=== PATIENT | male | born 1950 | race Caucasian/White ===

== ENCOUNTER 2021-12-07 07:55 | Outpatient (CLI) | payer MEDICARE, SELFPAY ==
--- NOTE | 2021-12-07 08:15 | CRLHL7_ITS ---
For Patients: As a result of the Century Cures Act, medical imaging exams and procedure reports are released immediately into your electronic medical record. You may view this report before your referring provider. If you have questions, please contact your health care provider. Indication: Left hip pain Comparison: None. Procedure : Informed consent was obtained. The site was marked. Time-out was performed. The skin of the left hip was cleansed with ChloraPrep. A sterile drape was placed. 8 cc of 1 percent lidocaine was administered for superficial anesthesia. Subsequently a 22 gauge spinal needle was introduced into the left hip joint under intermittent fluoroscopic guidance. Injection of 7 cc 1 percent lidocaine and 2 cc of 40 milligram/cc Depo-Medrol into the left hip joint then performed. The needle was removed and hemostasis achieved with direct pressure. A dressing was placed. The patient tolerated the procedure well without immediate complication. Total fluoroscopy time 14 seconds. Impression: Successful fluoroscopically guided left hip injection with 80 milligrams Depo-Medrol. Dictated by Charles Earl MD @ 12/07/2021 9:21:42 AM (Electronically Signed)
== END 2021-12-07 07:56 | disposition home or self-care (01) ==
LOC: RAD 07:57
PROVIDERS: PCP Family Medicine; Visit Provider Orthopaedic Surgery Sports Medicine
DX: M76.892 Other specified enthesopathies of left lower limb, excluding foot (principal); M70.62 Trochanteric bursitis, left hip; M16.12 Unilateral primary osteoarthritis, left hip; M25.552 Pain in left hip
CPT/HCPCS: 20610; 77002; J1030; Q9966

== ENCOUNTER 2022-01-16 11:39 | Outpatient (CLI) | payer MEDICARE, SELFPAY ==
[2022-01-16 22:02] LABS: Albumin* 4.6 g/dL (3.3-5.0); Chloride* 103 mmol/L (96-114); Sodium* 141 mmol/L (135-149)
[2022-01-16 22:04] LABS: Cholesterol* 160 mg/dL (90-199)
[2022-01-16 22:05] LABS: Alanine Aminotransferase* 34 U/L (4-50); Alkaline Phosphatase* 133 U/L (40-150); Aspartate Amino Transferase* 35 U/L (12-35); Bilirubin Total* 0.8 mg/dL (0.1-1.5); Blood Urea Nitrogen* 17 mg/dL (7-30); Calcium* 9.6 mg/dL (8.4-10.6); Carbon Dioxide* 29 mmol/L (20-32); Creatinine* 0.9 mg/dL (0.5-1.5); Estimated Glomerular Filt Rate 91 ml/min; Glucose* 110 mg/dL (60-115); Total Protein* 7.2 g/dL (6.0-8.3); Triglycerides* 140 mg/dL (40-149)
[2022-01-16 22:06] LABS: HDL Cholesterol* 58 mg/dL (>=40); LDL Cholesterol Calculated 74 mg/dL (<100); Magnesium* 2.1 mg/dL (1.5-2.6)
[2022-01-16 22:18] LABS: Creatinine Urine 203.2 mg/dL
[2022-01-16 22:25] LABS: Microalbumin Creatinine Ratio 0 mg/g (0-30); Microalbumin Urine 2 mg/dL
[2022-01-16 22:48] LABS: Vitamin B12* 584 pg/mL (243-894)
== END 2022-01-16 11:40 | disposition home or self-care (01) ==
PROVIDERS: PCP Family Medicine; Visit Provider Family Medicine
DX: E03.8 Other specified hypothyroidism (principal); E11.9 Type 2 diabetes mellitus without complications; E78.5 Hyperlipidemia, unspecified; G47.30 Sleep apnea, unspecified; I10 Essential (primary) hypertension; R53.83 Other fatigue
CPT/HCPCS: 80053; 80061; 82043; 82570; 82607; 83735; 84443

== ENCOUNTER 2022-01-18 08:00 | Outpatient (RCR) | payer MEDICARE, SELFPAY ==
--- NOTE | 2021-12-26 09:32 | PT.OPE ---
PT [place] Outpatient Eval PT [facility] Outpatient Eval Start: 12/26/21 07:59 Freq: Status: Active Protocol: Document 12/26/21 08:00 LSL (Rec: 12/26/21 08:39 LSL [id number]) E-signed By Swapna Burgess, PT Physical Therapy Outpatient Evaluation Insurance Information Insurance Name Medicare B,Blue Cross/Blue Shield Insurance Information/Comments PPO replacement plan Medical Diagnosis L hip OA, L hip abductor tendinitis, L trochanteric bursitis Treating Diagnosis pain, weakness, impaired balance, impaired gait, impaired ROM Referring MD Flavio Subjective Subjective Pt. has had B hip pain for 4-5 years L>R. He has had multiple injections over the years and none of them have helped. Pain is in the lateral hip. Pain is worse if I walk a lot. It feels like something is grinding. If I sit for a long time and then get up I limp and it really hurts. It was really hard last year and I had to walk with a cane. A PT last year in [place] told me I would be walking with a cane for the rest of my life and it made it hurt more. PT consisted of deep massage, clamshells and foam roller. For stairs I am okay as long as I have a railing. He has stairs at home . My goal is be able to walk 30-45 minutes without any pain . 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 Precautions Treatment Precautions/Contraindications L HS injury 15 y/a - slipped and fell backwards, doctor said if he was a football player he'd be out for a couple months but didn't offer him any help., diverticulitis with partial colectomy and resultant abdominal hernia, partial prostate removal non cancerous Weight Bearing Status Full Weight Bearing Therapy Limitations/Systems Review Other Medical Problem Objective Range of Motion AROM - lumbar grossly 25-50% and lost balance PROM - B hips limited IR L painful, L hip ER and flexion much less than R and produce pain on L Strength B knees 5/5 Hips - R flexion 5/5, L 5-/5 with pain, L TFL 3/5 with pain , R 4+/5, L hip abd 3/5 with pain, R abduction 5/5 , L hip extension 4/5, R 5/5 Trunk - upper abdominals 2-/5, lower abdominals 1/5, Palpation L TFL and trochanteric bursal region very tender and L glut med mildly tender Balance & Gait B SLB poor - less than 1 second with assistance but worse on R Posture genu valgus B Assessment Assessment/Impression Pt. is a 71 y/o male who presents with L hip OA, trochanteric bursitis and tendinopathy. It is likely that his primary issue are the weakness and tightness in his hip musculature contributing to irritation of the bursa and hip joint given that none of his injections have helped in the past. He has significantly limited lumbar ROM, abdominal strength and L hip strength all of which are contributory to his pain and balance issues . Oddly enough he has worse SL balance on his L compared to R leg and his R leg is likely compensating for his L hip pain. Treatment will include therex for strength and ROM, NM re-ed for balance and core activation, manual therapy and modalities prn. Primary Functional Limitations walking, stairs, sleeping Plan of Care Rehabilitation Potential Good Physical Therapy Goals SHORT TERM GOALS: (2-3 weeks) 1. Pt. consistent with HEP. 2. Pt. able to activate TA and stabilize against extremity movement. 3. Increased hip strength by 1 /2 grade. BOILERHOUSE MECHANIC GOALS: (4+ weeks) 1. Pt. to report decreased pain to 3/10 with 30+ minute walk. 2. Pt. able to ascend and descend stairs with improved ease and less pain. 3. Increased SLB to 5 seconds or greater. 4. Increased strength of L hip musculature to 4+/5 or greater to assist in mobility. Coordination/Communication With Referral Source Treatment Plan/Direct Interventions Electrical Stimulation,Heat, Ice/Cold/Vasopneumatic,Joint Mobilization,Manual Therapy, Neuromuscular Re-ed,Self-Care/ Home Management,Therapeutic Exercises Frequency/Duration 2x/week 4weeks Patient Will Be Discharged From Therapy Completion of LTG(s),Skills Plateau,Independent w/HEP, Independently Progressing Evaluation Billing Untimed Code Treatment Minutes 35 PT Eval No Charge No Complexity Moderate Certification Information Initial Certification Date 12/26/21 Ending Certification Date 03/14/22 Provider Signature Shows Agreement With POC & Medical Necessity Physician Comment/Change Comment or Changes Physician NPI Number #
== END 2022-02-15 14:39 | disposition home or self-care (01) ==
PROVIDERS: PCP Family Medicine; Visit Provider Orthopaedic Surgery Sports Medicine
DX: M76.892 Other specified enthesopathies of left lower limb, excluding foot (principal); M25.552 Pain in left hip; M70.62 Trochanteric bursitis, left hip; Z51.89 Encounter for other specified aftercare
CPT/HCPCS: 97032; 97110; 97140; 97162

== ENCOUNTER 2022-01-20 07:22 | Emergency (ER) | payer MEDICARE, SELFPAY ==
[2022-01-20 07:32] VITALS: BP 147/78; PULSE 67; RESP 20; TEMP 36.5; O2SAT 96; BMI 36.5
--- NOTE | 2022-01-20 08:01 | PC.NURSE ---
Dr Zeng with patient
--- NOTE | 2022-01-20 08:10 | ED.GENADULT ---
HPI - General Adult General Time Seen by Provider: 08:10 Date Seen: 01/20/22 Chief complaint: Hip Injury/Pain Stated complaint: LT Hip pain Source: patient Mode of arrival: ambulatory Limitations: no limitations History of Present Illness HPI narrative: Patient is a 71-year-old male has had left hip pain for quite some time, he has had a anterior injection with Dr. Vinny Narvaez because he has degenerative change. That did not seem to help very much. He has had a injection into his greater trochanteric bursa by LINDESY and that helped him. He has been unable to sleep he has got pain in his lateral hip and anterior hip. No fevers chills. He has been told he has degenerative change in his hip. He still able ambulate. Related Data Home Medications Medication Instructions Recorded Confirmed Lactobacillus acidophilus 10 mg PO QDAY 11/28/21 01/16/22 magnesium 200 mg tablet 200 mg PO QDAY 11/28/21 01/16/22 metformin 500 mg tablet,extended 500 mg PO DAILY 11/28/21 01/16/22 release 24 hr multivitamin 1 tab PO QAM 11/28/21 01/16/22 psyllium 1 tbsp PO ONCE 11/28/21 01/16/22 triamterene 37.5 1 tab PO DAILY 11/28/21 01/16/22 mg-hydrochlorothiazide 25 mg tablet aspirin 325 mg tablet 325 mg PO QDAY 01/16/22 01/16/22 cholecalciferol (vitamin D3) 50 50 mcg PO QDAY 01/16/22 01/16/22 mcg (2,000 unit) capsule diphenhydramine 25 1 tab PO QHS PRN 01/16/22 01/16/22 mg-acetaminophen 500 mg tablet (Tylenol PM Extra Strength) potassium 99 mg tablet mg PO .Q day 01/16/22 01/16/22 Previous Rx's Medication Instructions Recorded atorvastatin 20 mg tablet 20 mg PO QPM #90 tabs 11/07/21 amlodipine 10 mg tablet 10 mg PO DAILY #90 tabs 12/22/21 hydrocodone 5 mg-acetaminophen 325 1 tab PO Q6H PRN pain #10 tabs 01/20/22 mg tablet prednisone 20 mg tablet 20 mg PO BID 3 days #6 tabs 01/20/22 Allergies Allergy/AdvReac Type Severity Reaction Status Date / Time lisinopril AdvReac Mild Cough Verified 01/16/22 11:07 losartan AdvReac Mild Cough Verified 01/16/22 11:07 Review of Systems Status of ROS: Reports: 6 or more systems reviewed and unremarkable except as noted in History and below [facility] Medical History History of stress test Surgical History History of colectomy History of colonoscopy History of rotator cuff surgery History of transurethral resection of prostate Family History Mother Aortic aneurysm Other Heart disease Lung cancer Social History Narrative: , spouse w/ multiple sclerosis retired from employment Smoking Status: Never smoker Little interest or pleasure in doing things: not at all Feeling down, depressed, or hopeless: not at all service: No Exam Narrative: Exam Narrative: Objective: Patient is afebrile He has got limited internal external rotation of his left hip due to discomfort he has got tenderness over his greater trochanteric bursa on the left hip he is ambulatory with a slight antalgic gait on the left leg Normal strength in the lower extremity Const: Vital Signs, click to edit/add: Vital Signs - 24 hr 01/20/22 07:32 Temperature 97.7 F Pulse Rate [Right Pulse Oximeter] 67 Respiratory Rate 20 Blood Pressure [Ri ght Upper Arm] 147/78 H Pulse Oximetry 96 Oxygen Delivery Me thod Room Air Course Vital Signs Vital signs: Initial Vital Signs Temperature 97.7 F 01/20/22 07:32 Temperature Source Temporal Artery Scan 01/20/22 07:32 Pulse Rate 67 01/20/22 07:32 Pulse Rhythm 01/20/22 07:32 Respiratory Rate 20 01/20/22 07:32 Blood Pressure 147/78 H 01/20/22 07:32 Blood Pressure Mean 101 01/20/22 07:32 Blood Pressure Position Sitting 01/20/22 07:32 Pulse Oximetry 96 01/20/22 07:32 Oxygen Delivery Method 01/20/22 07:32 Vital Signs Temperature 97.7 F 01/20/22 07:32 Pulse Rate 67 01/20/22 07:32 Respiratory Rate 20 01/20/22 07:32 Blood Pressure 147/78 H 01/20/22 07:32 Pulse Oximetry 96 01/20/22 07:32 Oxygen Delivery Method 01/20/22 07:32 Temperature 97.7 F 01/20/22 07:32 Pulse Rate 67 01/20/22 07:32 Respiratory Rate 20 01/20/22 07:32 Blood Pressure 147/78 H 01/20/22 07:32 Pulse Oximetry 96 01/20/22 07:32 Oxygen Delivery Method 01/20/22 07:32 Medical Decision Making MDM Narrative Medical decision making narrative: Patient is a 71-year-old male that has some degenerative changes in his hip as well as a greater trochanteric bursitis on the left. At this time it will give him morphine 7.5 mg IM, will use a lower dose given he has sleep apnea. Patient also will get prednisone 50 mg now and then 20 b.i.d. starting tomorrow for 3 days for the trochanteric bursitis. I will prescribe [place] 5 mg 1 every 6-8 hours as needed p.r.n. 10 written for no refill, follow up with Orthopedics in the next 3-4 days, icing on the greater trochanteric bursa 10 minutes 3 times a day over the next few days. Return as needed Discharge Plan Discharge Clinical Impression: Chronic hip pain, Greater trochanteric bursitis of left hip Patient Disposition: Home w/ Parent or Adult Condition: Stable Additional Instructions: Light activity, pain meds as needed, cautioned about sedative effect of this pain medication, orthopedic followup in the next 3-5 days. Try to use limited amount of the pain pill given its sedating effect and the fact that you use CPAP. Activity Level: Light activity Activity Detail: Limit weight-bearing as necessary, ice to the left hip area that is tender 10 minutes 3 times a day Discharge Diet: Regular Prescriptions: New hydrocodone-acetaminophen 5-325 mg tablet 1 tab PO Q6H PRN (Reason: pain) Qty: 10 0RF prednisone 20 mg tablet 20 mg PO BID 3 Days Qty: 6 0RF No Action multivitamin Tablet 1 tab PO QAM psyllium Powder 1 tbsp PO ONCE Rx Instructions: mix into at least 8 oz of water or juice before administering magnesium 200 mg tablet 200 mg PO QDAY Lactobacillus acidophilus Capsule 10 mg PO QDAY metformin 500 mg tablet extended release 24 hr 500 mg PO DAILY triamterene-hydrochlorothiazid 37.5-25 mg tablet 1 tab PO DAILY diphenhydramine-acetaminophen [Tylenol PM Extra Strength] 25-500 mg tablet 1 tab PO QHS PRN aspirin 325 mg tablet 325 mg PO QDAY cholecalciferol (vitamin D3) 50 mcg (2,000 unit) capsule 50 mcg PO QDAY potassium 99 mg tablet PO .Q day atorvastatin 20 mg tablet 20 mg PO QPM Qty: 90 0RF amlodipine 10 mg tablet 10 mg PO DAILY Qty: 90 0RF Follow Up/Referrals: Gabrielle Ortez MD [Staff Physician] - Stand Alone [facility]
--- OUTSIDE RECORDS SUMMARY | 2022-01-20 08:10 | XMS_ITS | Clinical Summary ---
:1950 Author Organization [facility] Address [address] [place] [id number] Care Team Providers Name Role Phone Clinic, [facility] Primary Care Provide r Allergies No known active allergies Medications Medication Sig Dispensed Refills Start Date End Date Status multivitamin, therapeutic Take 1 tablet 0 Active (THERA-VIT) TABS by mouth daily Probiotic Product Take 1 tablet 0 Active (PROBIOTIC DAILY PO) by mouth every evening atorvastatin (LIPITOR) 20 Take 20 mg by 0 Active MG tablet mouth every evening magnesium oxide (MAG-OX) Take 400 mg 0 Active 400 MG tablet by mouth every evening amLODIPine (NORVASC) 10 MG Take 10 mg by 0 Active tablet mouth daily acetaminophen (TYLENOL) Take 2 100 tablet 0 03/11/2018 Active 325 MG tabletIndications: tablets (650 Cerebrovascular accident mg) by mouth (CVA) due to bilateral every 4 hours embolism of carotid as needed for arteries (H) mild pain or fever aspirin (ASA) 325 MG EC Take 1 tablet 30 tablet 0 03/12/2018 Active tabletIndications: (325 mg) by Cerebrovascular accident mouth daily (CVA) due to bilateral embolism of carotid arteries (H) hydrochlorothiazide Take 1 30 capsule 0 03/11/2018 Active (MICROZIDE) 12.5 MG capsule (12.5 capsuleIndications: mg) by mouth Cerebrovascular accident daily (CVA) due to bilateral embolism of carotid arteries (H), Benign essential hypertension Active Problems Problem Noted Date HTN (hypertension) 05/06/2018 Mixed hyperlipidemia 05/06/2018 CARLOS (obstructive sleep apnea) 05/06/2018 Osteoarthritis of shoulder region 05/06/2018 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 Stroke (cerebrum) 03/02/2018 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/2016 Immunizations Name Administration Dates Next Due Influenza (High Dose) 3 valent vaccine 01/13/2018, 7, 01/02/2016 Family History Medical History Relation Comments Coronary Artery Disease Father Other Cancer Father Abdominal Aortic Aneurysm Mother Relation Status Comments Father Mother Alive Social History Tobacco Use Types Packs/Day Years Used Date Never Smoker Smokeless Tobacco: Never Used Tobacco Cessation: Counseling Given: Yes Alcohol Use Standard Drinks/Week Comments No 0 (1 standard drink = 0.6 oz pure alcoho l) Sex Assigned at Date Recorded Not on file Last Filed Vital Signs Vital Sign Reading Time Taken Comments Blood Pressure 148/78 05/08/2018 12:44 PM ADHESIVE BANDAGE MACHINE OPERATOR Pulse 62 05/08/2018 12:44 PM ADHESIVE BANDAGE MACHINE OPERATOR Temperature 36.7 ??C (98.1 ??F) 03/12/2018 8:26 AM ADHESIVE BANDAGE MACHINE OPERATOR Respiratory Rate 16 03/12/2018 8:26 AM ADHESIVE BANDAGE MACHINE OPERATOR Oxygen Saturation 93% 03/12/2018 8:26 AM ADHESIVE BANDAGE MACHINE OPERATOR Inhaled Oxygen Concentration - - Weight 112.9 kg (249 lb) 05/08/2018 12:44 PM ADHESIVE BANDAGE MACHINE OPERATOR Height 175.3 cm (5' 9) 03/08/2018 12:20 PM ADHESIVE BANDAGE MACHINE OPERATOR Body Mass Index 36.77 03/08/2018 12:20 PM ADHESIVE BANDAGE MACHINE OPERATOR Plan of Treatment Not on file Insurance Payer Benefit Plan / Subscriber ID Effective Dates Phone Addre ss Type Group HUMANA HUMANA MEDICARE [id number] 2018-Lavelle [phone] [address] [address] Medicare ADVANTAGE t 0 [place] [address] Raul Dickson Personal/Family Self 1950 [address] ([place]) [place] [id number] Advance Directives For more information, please contact: [phone] Latest Code Status on File Code Status Date Activated Date Inactivated Comments Full Code 03/11/2018 5:10 PM 03/12/2018 12:30 PM Code status determined by: Discussion with patient/legal dec ision maker Full Code 03/11/2018 4:51 PM 03/11/2018 5:10 PM Code status determined by: Discussion with patient/legal dec ision maker Full Code 03/08/2018 10:13 AM 03/11/2018 4:51 PM Code status determined by: Discussion with patient/legal dec ision maker Full Code 03/02/2018 10:41 PM 03/08/2018 10:13 AM Code status determined by: Discussion with patient/legal dec ision maker Full Code 06/01/2016 4:54 AM 06/05/2016 5:47 PM Care Teams Assembly Inspector Helper Relationship Specialty Start Date End Date Clinic, [facility] PCP - General 03/02/[address] [place] [id number]
--- OUTSIDE RECORDS SUMMARY | 2022-01-20 08:10 | XMS_ITS | Encounter Summary ---
:1950 Author Organization [place] Address [address] [place] [address] Care Team Providers Name Role Phone [facility] Primary Care Provide r Encounter Details Date Type Department Care Team Description 05/08/2018 Travel Social History Tobacco Use Types Packs/Day Years Used Date Never Smoker Smokeless Tobacco: Never Used Alcohol Use Standard Drinks/Week Comments No 0 (1 standard drink = 0.6 oz pure alcoho l) Sex Assigned at Date Recorded Not on file documented as of this encounter Plan of Treatment Not on filedocumented as of this encounter Visit Diagnoses Not on filedocumented in this encounter Care Teams Record Tester Relationship Specialty Start Date End Date [facility] PCP - General 03/02/[address] [place] [address] [id number] documented as of this encounter
--- OUTSIDE RECORDS SUMMARY | 2022-01-20 08:10 | XMS_ITS | Encounter Summary ---
:1950 Author Organization [place] Address [facility] [place] [address] Care Team Providers Name Role Phone Clinic, [facility] Primary Care Provide r Reason for Visit Reason Comments Consult 30 day monitor Encounter Details Date Type Department Care Team Description 05/08/2018 Office Visit [facility] Ivon Celaya Cerebr ovascular accident [facility] Anne Wong MD (CVA) due to embolism of [address] right middle cerebral [address] artery (H) (Primary Dx) [place] [id number] [place] [id number] Social History Tobacco Use Types Packs/Day Years Used Date Never Smoker Smokeless Tobacco: Never Used Alcohol Use Standard Drinks/Week Comments No 0 (1 standard drink = 0.6 oz pure alcoho l) Sex Assigned at Date Recorded Not on file documented as of this encounter Last Filed Vital Signs Vital Sign Reading Time Taken Comments Blood Pressure 148/78 05/08/2018 12:44 PM ORACLE SECURITY CONSULTANT Pulse 62 05/08/2018 12:44 PM ORACLE SECURITY CONSULTANT Temperature - - Respiratory Rate - - Oxygen Saturation - - Inhaled Oxygen Concentration - - Weight 112.9 kg (249 lb) 05/08/2018 12:44 PM ORACLE SECURITY CONSULTANT Height - - Body Mass Index 36.77 03/08/2018 12:20 PM ORACLE SECURITY CONSULTANT documented in this encounter Progress Notes Ivon Celaya MD - 05/08/2018 12:45 PM CST Cardiology Consultation Assessment & Plan CVA February 2018 S/P TPA HTN CARLOS Arthritis Echo with negative bubble study Event monitor with No A-fib Recommendations: We have reviewed patient's recent cardiac testing and fortunately he has done well and finished withhis rehab. No major residual deficits are apparent from his CVA. He is placed on appropriate guideline directed medical therapy. We reviewed all of his cardiac testing and his current medications and would agree with his regimen. We will asked that he return to clinic on an as-needed basis. Ivon Celaya MD HPI: Patient is a 67-year-old male with no prior medical history up until February 2018. At that point hepresented with facial droop concerning features of a CVA and sought medical attention. He was diagnosed with CVA with significant deficit ultimately underwent TPA. He went for additional care at [facility] from [facility]. He was medically managed and additional cardiac testing was performed. Telemetry monitoring did not show any significant arrhythmias. EKG is reviewed and it is normal sinus rhythm. An echocardiogram demonstrated preserved LV systolic function with a negative bubble study for right to left shunting. He has had a 30-day event monitor with no significant arrhythmias noted he was not on any medical therapy and is now placed on traditional medical therapy post CVA. No residual deficits with the exception of slight clumsiness of his left ring and pinky finger. Accompanied by his who confirms his history. Here to go over his event monitor and plan for additional care EKG: NSR Ivon Celaya MD Primary Care Physician [facility] Patient Active Problem List Diagnosis ??? Perforated diverticulum of large intestine ??? Stroke (cerebrum) (H) ??? Stroke due to embolism (H) ??? HTN (hypertension) ??? Mixed hyperlipidemia ??? CARLOS (obstructive sleep apnea) ??? Osteoarthritis of shoulder region Past Medical History I have reviewed this patient's medical history and updated it with pertinent information if needed. Past Medical History: Diagnosis Date ??? Diverticulitis ??? Hyperlipidemia ??? Hypertension ??? Sleep apnea Past Surgical History I have reviewed this patient's surgical history and updated it with pertinent information if needed. Past Surgical History: Procedure Laterality Date ??? COLECTOMY WITHOUT COLOSTOMY N/A 05/31/2016 Procedure: COLECTOMY WITHOUT COLOSTOMY; Surgeon: Vignesh Montez MD; Location: [facility] OR ??? GENITOURINARY SURGERY ??? ORTHOPEDIC SURGERY ??? [facility] teeth extraction Prior to Admission Medications Cannot display prior to admission medications because the patient has not been admitted in this contact. @IPMEDSSCHED@ @IPMEDSCONT@ Allergies No Known Allergies Social History reports that has never smoked. He does not have any smokeless tobacco history on file. He reports that he does not drink alcohol or use drugs. Family History Family History Problem Relation Age of Onset ??? Abdominal Aortic Aneurysm Mother ??? Coronary Artery Disease Father ??? Other Cancer Father Review of Systems The comprehensive 10 point Review of Systems is negative other than noted in the HPI or here. Physical Exam Vital Signs with Ranges Wt Readings from Last 4 Encounters: 03/10/18 110.3 kg (243 lb 3 oz) 03/06/18 112.5 kg (248 lb) 03/02/18 116.8 kg (257 lb 8 oz) 06/11/16 117.9 kg (260 lb) @[id number]@ Vitals: Blood pressure 148/78, pulse 62, weight 112.9 kg (249 lb). Constitutional: awake, alert, cooperative, no apparent distress, and appears stated age Neck: Supple, symmetrical, trachea midline, no adenopathy, thyroid symmetric, not enlarged and no tenderness, skin normal Back: Symmetric, no curvature, spinous processes are non-tender on palpation, paraspinous muscles are non-tender on palpation, no costal vertebral tenderness Cardiovascular: Normal apical impulse, regular rate and rhythm, normal S1 and S2, no S3 or S4, and no murmur noted Abdomen: No scars, normal bowel sounds, soft, non-distended, non-tender, no masses palpated, no hepatosplenomegally Musculoskeletal: There is no redness, warmth, or swelling of the joints. Full range of motion noted. Motor strength is 5 out of 5 all extremities bilaterally. Tone is normal. @LABRCNTIPR(tropi:5,troponinies:5)@ @LABRCNTIPR(wbc:3,hgb:3,mcv:3,plt:3,inr:3,na:3,potassium:3,chloride:3,co2:3,bun: 3,cr:3,gfrestimated:3 ,gfrestblack:3,aniongap:3,lionel:3,g,albumin:2,prottotal:2,bilitotal:2,alkphos: 2,alt:2,ast:2,lipase:2,tropi:3)@ Recent Labs Lab Test 03/03/18 0550 CHOL 137 HDL 58 LDL 59 TRIG 100 @LABRCNTIP(wbc:3,hgb:3,hct:3,mcv:3,plt:3,iron:3,ironsat:3,reticabsct:3,retp:3,fe b:3,matt:3,b12:3,folic:3,epoe:3,morph:3)@ @LABRCNTIP(PH:3,PHV:3,PO2:3,PO2V:3,sat:3,PCO2:3,PCO2V:3,HCO3:3,HCO3V:3)@ @LABRCNTIP(NTBNPI:3,NTBNP:3)@ @LABRCNTIP(DD:1)@ @LABRCNTIP(sed:3,crp:3)@ @LABRCNTIP(PLT:3)@ @LABRCNTIP(TSH:3)@ @LABRCNTIP(color:1,appearance:1,urineg,urinebili:1,urineketone:1,s,ubld:1 ,urineph:1,protein:1,urobilinogen:1,nitrite:1,leukest:1,rbcu:1,wbcu:1)@ Imaging: No results found for this or any previous visit (from the past 48 hour(s)). Echo: Recent Results (from the past 4320 hour(s)) ECHO COMPLETE BUBBLE STUDY WITH OPTISON Narrative [id number]^LUKAS^KEIRA^[facility] Echocardiography Laboratory [address] [place] [id number] Name: NICOLETTE RICE : 1950 Study Date: 03/03/2018 10:07 AM Age: 67 yrs Gender: Male Patient Location: [facility] Reason For Study: CVA Ordering Physician: KEIRA GAYTAN Referring Physician: [facility] [place] Performed By: Irene Gavin BSA: 2.3 m2 Height: 69 in Weight: 250 lb HR: 74 BP: 156/88 mmHg __ Procedure Contrast Optison. Complete Portable Bubble Echo Adult. __ Interpretation Summary Left ventricular systolic function is normal. The visual ejection fraction is estimated at 60-65%. There is mild concentric left ventricular hypertrophy. A contrast injection (Bubble Study) was performed that was negative for flow across the interatrial septum. There is no atrial shunt seen. Sinus rhythm was noted. Technically difficult, suboptimal study. Contrast was used without apparent complications. There is no comparison study available. __ Left Ventricle The left ventricle is normal in size. There is mild concentric left ventricular hypertrophy. Left ventricular systolic function is normal. The visual ejection fraction is estimated at 60-65%. Diastolic Doppler findings (E/E' ratio and/or other parameters) suggest left ventricular filling pressures are indeterminate. No regional wall motion abnormalities noted. Right Ventricle The right ventricle is normal size. The right ventricular systolic function is normal. Atria Normal left atrial size. Right atrial size is normal. A contrast injection (Bubble Study) was performed that was negative for flow across the interatrial septum. There is no atrial shunt seen. Mitral Valve There is trace mitral regurgitation. Tricuspid Valve There is trace tricuspid regurgitation. Right ventricular systolic pressure could not be approximated due to inadequate tricuspid regurgitation. Normal IVC (1.5-2.5cm) with <50% respiratory collapse; right atrial pressure is estimated at 10-15mmHg. Aortic Valve No aortic regurgitation is present. No hemodynamically significant valvular aortic stenosis. Pulmonic Valve There is no pulmonic valvular stenosis. Vessels Normal size aorta. The IVC is normal in size and reactivity with respiration, suggesting normal central venous pressure. Pericardium The pericardium appears normal. Rhythm Sinus rhythm was noted. __ MMode/2D Measurements & Calculations IVSd: 1.3 cm LVIDd: 3.6 cm LVIDs: 2.1 cm LVPWd: 1.3 cm FS: 41.6 % LV mass(C)d: 153.2 grams LV mass(C)dI: 67.4 grams/m2 Ao root diam: 3.3 cm LA dimension: 4.3 cm asc Aorta Diam: 3.5 cm LA/Ao: 1.3 LA Volume (BP): 58.6 ml LA Volume Index (BP): 25.8 ml/m2 RWT: 0.70 Doppler Measurements & Calculations MV E max moriah: 94.6 cm/sec MV A max moriah: 111.1 cm/sec MV E/A: 0.85 MV dec time: 0.22 sec Ao V2 max: 151.2 cm/sec Ao max P.0 mmHg PA acc time: 0.12 sec E/E' av.0 Lateral E/e': 11.3 Medial E/e': 14.8 __ Report approved by: Juliette Arellano MDon 03/03/2018 12:49 PM LE SECURITY CONSULTANT documented in this encounter Plan of Treatment Scheduled Referrals Name Type Priority Associated Diagnoses Order S chedule CARDIOLOGY EVAL ADULT Referral Routine LVH (left ventricul ar Ordered: 03/11/2018 REFERRAL hypertrophy) 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
--- OUTSIDE RECORDS SUMMARY | 2022-01-20 08:10 | XMS_ITS | Encounter Summary ---
:1950 Author Organization [place] Address [address] [place], [place] [address]e. [place] [address] Care Team Providers Name Role Phone Clinic, [facility] Primary Care Provide r Reason for Referral CV Testing - Closed Specialty Diagnoses / Procedures Referred By Contact Refer red To Contact Cardiology Diagnoses Cerebrovascular accident (CVA) due to embolism of right middle cerebral artery (H) Gabrielle Hernandez MD Zz Sh Cardiology Img Procedures Cardiac Event Monitor - Peds/Adult [facility] [address] [place] [address] [facility] [address] [place] [address] [place] [id number] 5 Referral ID Status Reason Start Date Expiration Date Visits Requ ested Visits Authorized [id number] Closed 03/05/2018 03/05/2019 1 1 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 Reason for Visit CV Testing - Closed Specialty Diagnoses / Procedures Referred By Contact Refer red To Contact Cardiology Diagnoses Cerebrovascular accident (CVA) due to embolism of right middle cerebral artery (H) Gabrielle Hernandez MD Zz Sh Cardiology Img Procedures Cardiac Event Monitor - Peds/Adult [facility] [address] [place] [address] [facility] [address] [place] [address] [place] [id number] 5 Referral ID Status Reason Start Date Expiration Date Visits Requ ested Visits Authorized [id number] Closed 03/05/2018 03/05/2019 1 1 Encounter Details Date Type Department Care Team Description 03/17/2018 Hospital Encounter Laya Rosado None Cer ebrovascular Radiology - [facility] Gabrielle Hernandez MD [address] [id number] accident (CVA) due to Heart Imaging embolism of right [address] middle cer ebral artery [place] (H) [place] [address] Social History Tobacco Use Types Packs/Day Years Used Date Never Smoker Alcohol Use Standard Drinks/Week Comments No 0 (1 standard drink = 0.6 oz pure alcoho l) Sex Assigned at Date Recorded Not on file documented as of this encounter Medications at Time of Discharge Medication Sig Dispensed Refills Start Date End Date acetaminophen (TYLENOL) 325 Take 2 tablets 100 tablet 0 02/14 MG tabletIndications: (650 mg) by mouth Cerebrovascular accident every 4 hours as (CVA) due to bilateral needed for mild embolism of carotid arteries pain or fever (H) amLODIPine (NORVASC) 10 MG Take 10 mg by 0 tablet mouth daily aspirin (ASA) 325 MG EC Take 1 tablet 30 tablet 0 8 tabletIndications: (325 mg) by mouth Cerebrovascular accident daily (CVA) due to bilateral embolism of carotid arteries (H) atorvastatin (LIPITOR) 20 MG Take 20 mg by 0 tablet mouth every evening hydrochlorothiazide Take 1 capsule 30 capsule 0 03/11/2018 (MICROZIDE) 12.5 MG (12.5 mg) by capsuleIndications: mouth daily 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 By Sharon Gonzalez 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 documented in this encounter Plan of Treatment Not on filedocumented as of this encounter Results Cardiac Event Monitor - Peds/Adult (03/17/2018 9:20 AM WASH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) Narrative This result has an attachment that is no t available. Gabrielle Hernandez MD CV CARDIAC SERVICES ORDERABL ES Performing Organization Address City/State/ZIP Code Phon e Number RADIANT documented in this encounter Visit Diagnoses Diagnosis Cerebrovascular accident (CVA) due to em bolism of right middle cerebral artery (H) documented in this encounter Care Teams Law Firm Partner Relationship Specialty Start Date End Date Clinic, [facility] PCP - General 03/02/[address] [place] [address] [id number] documented as of this encounter
--- OUTSIDE RECORDS SUMMARY | 2022-01-20 08:10 | XMS_ITS | Encounter Summary ---
:1950 Author Organization [place] Address [address] [place] [address]. [place] [address] Care Team Providers Name Role Phone Clinic, [facility] Primary Care Provide r Encounter Details Date Type Department Care Team Description 03/14/2018 Telephone [facility] Heart Ivon Celaya, Clinic Anne BURGESS [address] [place] [address] [place] [id number] [phone] Social History Tobacco Use Types Packs/Day Years Used Date Never Smoker Alcohol Use Standard Drinks/Week Comments No 0 (1 standard drink = 0.6 oz pure alcoho l) Sex Assigned at Date Recorded Not on file documented as of this encounter Miscellaneous Notes Telephone Encounter - Alaina Garsia RN - 03/14/2018 2:08 PM CST Patient scheduled to see Dr. Celaya 05/08/2018 - The patient was recently seen in the ER and a MCOT heart monitor was ordered to be completed prior to a visit with the juvenile counselor. Dr. Celaya would like the patient to have a 30 day event monitor placed instead of the mCOT. [facility] No other tasks to be done at this time .Alaina Garsia TATION OPERATOR TRANSFORMING documented in this encounter Plan of Treatment Not on filedocumented as of this encounter Visit Diagnoses Not on filedocumented in this encounter Care Teams Presser All Around Relationship Specialty Start Date End Date Clinic, [facility] PCP - General 03/02/[address] [place] [id number] documented as of this encounter
--- OUTSIDE RECORDS SUMMARY | 2022-01-20 08:11 | XMS_ITS | Encounter Summary ---
:1950 Author Organization [place] Address [facility] [place] [address] Care Team Providers Name Role Phone [facility] Primary Care Provide r Encounter Details Date Type Department Care Team Description 03/11/2018 Orders Only [facility] Jana Hernandez MD Radiology - [facility] Heart [address] [place] [address] [place] [address] [phone] Social History Tobacco Use Types Packs/Day Years Used Date Never Smoker Alcohol Use Standard Drinks/Week Comments No 0 (1 standard drink = 0.6 oz pure alcoho l) Sex Assigned at Date Recorded Not on file documented as of this encounter Plan of Treatment Not on filedocumented as of this encounter Visit Diagnoses Not on filedocumented in this encounter Care Teams Sharepoint Manager Relationship Specialty Start Date End Date [facility] PCP - General 03/02/[address] [place] [id number] documented as of this encounter
--- OUTSIDE RECORDS SUMMARY | 2022-01-20 08:11 | XMS_ITS | Encounter Summary ---
:1950 Author Organization [facility] Address [address] [place] [id number] Care Team Providers Name Role Phone Sumanth Bearden Primary Care Provider [phone] Reason for Visit Auth/Cert Specialty Diagnoses / Procedures Referred By Contact Refer red To Contact Diagnoses Diverticulitis of large intestine with perforation without bleeding Perforated diverticulum of large intestine Rh 5 Medica l Surgical Procedures COMBINED COLECTOMY WITH COLOSTOMY [address] [place], [place] [address] Phone: Fax: Referral ID Status Reason Start Date Expiration Date Visits Requ ested Visits Authorized [id number] 06/01/2016 06/01/2017 1 1 Encounter Details Date Type Department Care Team Description 05/31/2016 - [facility] Stanislaw Mosher MD [facility] [address] [place] [address] Perforated diverticulum of large intesti ne (Primary Dx); 06/05/2016 Encounter [facility] Mayi Tovar MD [facility] [address] [place], [place] [id number] Diverticulitis of large intestine with p erforation without bleeding Surgical Keara Campuzano MD [address] [place] [address] [address] [place] [address] Social History Tobacco Use Types Packs/Day Years Used Date Never Smoker Alcohol Use Standard Drinks/Week Comments No 0 (1 standard drink = 0.6 oz pure alcoho l) Sex Assigned at Date Recorded Not on file documented as of this encounter Last Filed Vital Signs Vital Sign Reading Time Taken Comments Blood Pressure 150/71 06/05/2016 11:50 AM LOADING MACHINE TOOL SETTER Pulse 77 06/02/2016 11:53 PM LOADING MACHINE TOOL SETTER Temperature 36.6 ??C (97.9 ??F) 06/05/2016 8:24 AM LOADING MACHINE TOOL SETTER Respiratory Rate 18 06/05/2016 8:24 AM LOADING MACHINE TOOL SETTER Oxygen Saturation 95% 06/05/2016 8:24 AM LOADING MACHINE TOOL SETTER Inhaled Oxygen Concentration - - Weight 115.7 kg (255 lb) 05/31/2016 8:09 PM LOADING MACHINE TOOL SETTER Height 175.3 cm (5' 9.02) 05/31/2016 8:09 PM LOADING MACHINE TOOL SETTER Body Mass Index 37.64 05/31/2016 8:09 PM LOADING MACHINE TOOL SETTER documented in this encounter Discharge Summaries Mica Verma PA-C - 05/31/2016 9:45 PM CST [facility] Discharge Summary Surgery Date of Admission: 05/31/2016 Date of Discharge: 06/05/2016 3:45 PM Discharging Provider: Mica Verma PA-C and Keara Campuzano MD Discharge Summary Note completed by: Mica Verma PA-C on 06/06/2016 Date of Service: The patient was personally seen by Discharging Providers on the day of discharge. Discharge Diagnoses Active Problems: Perforated diverticulum of large intestine Procedure/Surgery Information Procedure(s): exploratory laparotomy sigmoid colectomy - Wound Class: IV-Dirty or Infected Surgeon(s) and Role: * Keara Campuzano MD - Primary * Manoj Mosqueda PA-C - Assisting Specimens: ID Type Source Tests Collected by Time Destination 1 : Fluid Peritoneum ANAEROBIC BACTERIAL CULTURE Keara Campuzano MD 06/01/2016 12:47 AM 2 : Wound Peritoneum FLUID CULTURE AEROBIC BACTERIAL, GRAM STAIN Keara Campuzano MD 06/01/2016 12:48 AM A : Tissue Large Intestine, Sigmoid SURGICAL PATHOLOGY EXAM Keara Campuzano MD 06/01/2016 1:24 AM Non-operative procedures: None performed History of Present Illness Nicolette Dickson is a 65 year old male with a couple of previous episodes of diverticulitis. He was diagnosed with diverticulitis two weeks ago, but did not undergo a CT scan at that time. He was started on Cipro and Flagyl and had resolution of his symptoms. Approximately 12 hours ago, the patient had re currence of symptoms which were more severe than previously. He presented to the emergency room and a CT scan was obtained. This showed perforated diverticulitis with significant inflammation around the sigmoid colon as well as bubbles of air in the mesentery. There were also a few scattered bubbles of air in the upper abdomen, indicating a free perforation. Exploratory laparotomy with probable colectomy and probable colostomy was recommended. We discussed the procedure, along with its risks and complications, in detail. The patient agreed to proceed. Hospital Course Nicolette Dickson was admitted on 05/31/2016. The following problems were addressed during his hospitalization: Patient Active Problem List Diagnosis ??? Perforated diverticulum of large intestine Post-operative antibiotic therapy included: Zosyn. Post-operative pain control: was via IV until able to tolerate PO intake and transitioned to PO painmeds. Remarkable hospital course events: Patient had leukocytosis on admission without additional sepsis criteria, due to perforated sigmoid diverticulitis. He experienced fevers up to 101.3, likely related to his diverticulitis. Patient experienced hypoxia postoperatively and has h/o of CARLOS. Patient used CPAP in hospital. Peritoneal drain was placed intraoperatively, and was removed prior to discharge. Peritoneal cultures grew Staph. Epidermidis, H. Parainfluenzae and E. Gallinarum Path: Diverticular disease with diverticulitis with diverticular perforation and abscess formation. ??Negative for malignancy. Nicolette met all criteria for release on 06/05/2016 3:45 PM. He was afebrile, tolerating diet, pain controlled on PO meds, ambulating well, and had return of bowel function. Medications discontinued or adjusted during this hospitalization: see discharge med list below. Antibiotics prescribed at discharge: Augmentin, Duration: 5 days Imaging study follow up needs: -No studies require specific follow-up Discharge Instructions and Follow-Up: Discharge diet: Regular Discharge activity: Lifting restricted to 20 pounds Discharge follow-up: Follow up with Dr. Campuzano in 2-3 weeks Wound/Incision care: Keep wound clean and dry Mica Verma PA-C Discharge Disposition Discharged to home Condition at discharge: Good Pending Results Unresulted Labs Ordered in the Past 30 Days of this Admission Date and Time Order Name Status Description 06/01/2016 0128 Anaerobic bacterial culture Preliminary Primary Care Physician Sumanth Barros Consultations This Hospital Stay None Discharge Orders No discharge procedures on file. Discharge Medications Discharge Medication List as of 06/05/2016 1:42 PM START taking these medications Details amoxicillin-clavulanate (AUGMENTIN) 875-125 MG per tablet Take 1 tablet by mouth 2 times daily for 5days, Disp-10 tablet, R-0, E-Prescribe oxyCODONE (ROXICODONE) 5 MG IR tablet Take 1-2 tablets (5-10 mg) by mouth every 4 hours as needed for pain, Disp-30 tablet, R-0, Local PrintTake with food to minimize nausea/side effects. CONTINUE these medications which have NOT CHANGED Details MAGNESIUM OXIDE PO Take 400 mg by mouth every evening, Historical ASPIRIN PO Take 81 mg by mouth every evening , Historical Probiotic Product (PROBIOTIC DAILY PO) Take 1 tablet by mouth every evening , Historical Atorvastatin Calcium (LIPITOR PO) Take 20 mg by mouth every evening , Historical multivitamin, therapeutic (THERA-VIT) TABS Take 1 tablet by mouth daily, Historical Allergies No Known Allergies Data Most Recent 3 CBC's: Recent Labs Lab Test 06/04/16 0740 06/03/16 0638 06/01/16 0747 05/31/16204001/02/16 0204 WBC -- 12.1* -- 13.4* 13.3* HGB -- 13.1* -- 14.6 14.2 MCV -- 92 -- 89 89 PLT 207 184 225 212 221 Most Recent 3 BMP's: Recent Labs Lab Test 06/04/16 0740 06/03/16 0638 06/01/16 0747 05/31/16204001/02/16 0204 NA -- 141 -- 141 139 POTASSIUM -- 3.9 -- 3.6 3.8 CHLORIDE -- 108 -- 103 105 CO2 -- 26 -- 29 26 BUN -- 8 -- 13 15 CR 0.99 0.91 0.81 0.87 0.94 ANIONGAP -- 7 -- 9 8 DEANDRA -- 7.9* -- 8.5 8.4* GLC -- 131* -- 177* 130* Most Recent 2 LFT's: Recent Labs Lab Test 05/31/16 2041 01/09/14 0445 AST 21 15 ALT 32 29 ALKPHOS 104 107 BILITOTAL 0.4 0.8 Most Recent INR's and Anticoagulation Dosing History: Anticoagulation Dose History There is no flowsheet data to display. Most Recent 3 Troponin's:No lab results found. Most Recent Cholesterol Panel:No lab results found. Most Recent 6 Bacteria Isolates From Any Culture (See EPIC Reports for Culture Details): Recent Labs Lab Test 06/01/16 0048 CULT Moderate growth Staphylococcus epidermidis Susceptibility testing not routinely done Light growth Haemophilus parainfluenzae Susceptibility testing not routinely done Light growth Enterococcus gallinarum This Enterococcus species is considered to be intrinsically resistant to vancomycin due to the presence of a vanC gene for low-level resistance and does NOT require contact precautions. Critical Value/Significant Value, preliminary result only, called to and read back by Tahmina Zhang, RN @6759 on 06/02/16. . * Culture negative monitoring continues Most Recent TSH, T4 and A1c Labs:No lab results found. Results for orders placed or performed during the hospital encounter of 05/31/16 CT Abdomen Pelvis w Contrast Narrative CT ABDOMEN AND PELVIS WITH CONTRAST 05/31/2016 10:29 PM HISTORY: Left lower quadrant pain. COMPARISON: 01/09/2014. TECHNIQUE: Following the uneventful administration of 100mL Isovue-370 intravenous contrast, helical sections were acquired from the top of the diaphragm through the pubic symphysis. Coronal reconstructions were generated. Radiation dose for this scan was reduced using automated exposure control, adjustment of the mA and/or kV according to the patient's size, or iterative reconstruction technique. FINDINGS: Abdomen: Subcentimeter low-attenuation lesion in the lateral segment of the left lobe of the liver, too small to characterize. The spleen, pancreas, adrenal glands and kidneys are unremarkable. 2.1 cm gallstone in the gallbladder. No enlarged lymph nodes or free fluid in the upper abdomen. Atherosclerotic calcification in the abdominal aorta. A few small foci of extraluminal gas are scattered within the upper abdomen (for example, in the midline anterior abdomen on series 2 image 28). Scan through the lower chest is unremarkable. Pelvis: The small and large bowel are normal in caliber. Several diverticula are scattered within the colon. Mild haziness within the fat about a diverticulum in the proximal sigmoid colon (series 2 image 68). A few foci of extraluminal gas are present in the fat about this region. No circumscribed fluid collection in the pelvis. The appendix is unremarkable. No enlarged lymph nodes or free fluid in the pelvis. Moderate-sized right inguinal hernia containing fat. Impression IMPRESSION: 1. Diverticulitis of the proximal sigmoid colon. There are a few foci of extraluminal gas in the fat about the inflamed diverticulum and also scattered in the upper abdomen, consistent with perforation. 2. No abscess. MARCUS LONGORIA MD ING MACHINE TOOL SETTER Associated attestation - Keara Campuzano MD - 06/07/2016 10:26 AM LOADING MACHINE TOOL SETTER Physician Attestation I, Keara Campuzano, personally saw and evaluated Nicolette Dickson as part of a shared visit. I have reviewed and discussed with the advanced practice provider their discharge plan. Kaera Campuzano Date of Service (when I saw the patient): 06/05/16 documented in this encounter Discharge Instructions Discharge InstructionsKeara Campuzano MD - 06/05/2016 12:13 PM CST HOME CARE FOLLOWING ABDOMINAL SURGERY Nestor Quach, Oralia Aly D. Maurer, R. O???Ktahy Cazares INCISIONAL CARE: Replace the bandage over your incision (or incisions) until all drainage stops, or if more comfortable to have in place. If present, leave the steri-strips (white paper tapes) in place till they fall off. If you have asia in your incision at the time of discharge, they will be removed at your follow-up appointment. If Dermabond (a type of skin glue) is present, leave in place until it wears/flakesoff. BATHING: Avoid baths for 1 week after surgery. Showers are okay. You may wash your hair at any time. Gently pat your incision dry after bathing. ACTIVITY: Light Activity -- you may immediately be up and about as tolerated. Driving -- you may drive when comfortable and off narcotic pain medications. Light Work -- resume when comfortable off pain medications. (If you can drive, you probably can work.) Strenuous Work/Activity -- limit lifting to 20 pounds for 6 weeks. Then, progressively increase withtime. Active Sports (running, biking, etc.) -- cautiously resume after 4 weeks. DISCOMFORT: Use pain medications as prescribed by your surgeon. Take the pain medication with some food, when possible, to minimize side effects. Expect gradual improvement. DIET: Return to diet you were on before surgery, unless you are given specific diet instructions. Drink plenty of fluids. While taking pain medications, increase dietary fiber or add a fiber supplementation like Metamucil or Citrucel to help prevent constipation - a possible side effect of pain medications. NAUSEA: If nauseated from the anesthetic/pain meds; rest in bed, get up cautiously with assistance, and drink clear liquids (juice, tea, broth). RETURN APPOINTMENT: Schedule a follow-up visit 5-10 days after discharge from the hospital. Office CONTACT US IF THE FOLLOWING DEVELOPS: 1. A fever that is above 101?? 2. If there is a large amount of drainage, bleeding, or swelling. 3. Severe pain that is not relieved by your prescription. 4. Drainage that is thick, cloudy, yellow, green or white. 5. Any other questions not answered by ???Frequently Asked Questions?? sheet. FREQUENTLY ASKED QUESTIONS: Q: How should my incision look? A: Normally your incision will appear slightly swollen with light redness directly along the incision itself as it heals. It may feel like a bump or ridge as the healing/scarring happens, and over time(3-4 months) this bump or ridge feeling should slowly go away. In general, clear or pink watery drainage can be normal at first as your incision heals, but should decrease over time. Q: How do I know if my incision is infected? A: Look at your incision for signs of infection, like redness around the incision spreading to surrounding skin, or drainage of cloudy or foul-smelling drainage. If you feel warm, check your temperature to see if you are running a fever. If any of these things occur, please notify the nurse at our office. We may need you to come into the office for an incision check. Q: How do I take care of my incision? A: If you have a dressing in place - Starting the day after surgery, replace the dressing 1-2 times a day until there is no further drainage from the incision. At that time, a dressing is no longer needed. Try to minimize tape on the skin if irritation is occurring at the tape sites. If you have significant irritation from tape on the skin, please call the office to discuss other method of dressing your incision. Small pieces of tape called ???steri-strips?? may be present directly overlying your incision; these may be removed 10 days after surgery unless otherwise specified by your surgeon. If these tapes start to loosen at the ends, you may trim them back until they fall off or are removed. A: If you had ???Dermabond?? tissue glue used as a dressing (this causes your incision to look shiny with a clear covering over it) - This type of dressing wears off with time and does not require more dressings over the top unless it is draining around the glue as it wears off. Do not apply ointments or lotions over the incisions until the glue has completely worn off. Q: There is a piece of tape or a sticky ???lead?? still on my skin. Can I remove this? A: Sometimes the sticky ???leads?? used for monitoring during surgery or for evaluation in the emergency department are not all removed while you are in the hospital. These sometimes have a tab or metal dot on them. You can easily remove these on your own, like taking off a band-aid. If there is a gel substance under the ???lead?? , simply wipe/clean it off with a washcloth or paper towel. Q: What can I do to minimize constipation (very hard stools, or lack of stools)? A: Stay well hydrated. Increase your dietary fiber intake or take a fiber supplement -with plenty ofwater. Walk around frequently. You may consider an [id number] stool-softener. Your Pharmacist can assist you with choosing one that is stocked at your pharmacy. Constipation is also one of the most common side effects of pain medication. If you are using pain medication, be pro-active and try toPREVENT problems with constipation by taking the steps above BEFORE constipation becomes a problem. Q: What do I do if I need more pain medications? A: Call the office to receive refills. Be aware that certain pain meds cannot be called into a pharmacy and actually require a paper prescription. A change may be made in your pain med as you progress thru your recovery period or if you have side effects to certain meds. --Pain meds are NOT refilled after 5pm on weekdays, and NOT AT ALL on the weekends, so please look ahead to prevent problems. Q: Why am I having a hard time sleeping now that I am at home? A: Many medications you receive while you are in the hospital can impact your sleep for a number of days after your surgery/hospitalization. Decreased level of activity and naps during the day may alsomake sleeping at night difficult. Try to minimize day-time naps, and get up frequently during the day to walk around your home during your recovery time. Sleep aides may be of some help, but are not recommended for long-term use. Q: I am having some back discomfort. What should I do? A: This may be related to certain positioning that was required for your surgery, extended periods of time in bed, or other changes in your overall activity level. You may try ice, heat, acetaminophen,or ibuprofen to treat this temporarily. Note that many pain medications have acetaminophen in them and would state this on the prescription bottle. Be sure not to exceed the maximum of 4000mg per day of acetaminophen. If the pain you are having does not resolve, is severe, or is a flare of back pain you have had onother occasions prior to surgery, please contact your primary physician for further recommendations or for an appointment to be examined at their office. Q: Why am I having headaches? A: Headaches can be caused by many things: caffeine withdrawal, use of pain meds, dehydration, high blood pressure, lack of sleep, over-activity/exhaustion, flare-up of usual migraine headaches. If youfeel this is related to muscle tension (a band-like feeling around the head, or a pressure at the low-back of the head) you may try ice or heat to this area. You may need to drink more fluids (try electrolyte drink like Gatorade), rest, or take your usual migraine medications. If your headaches do not resolve, worsen, are accompanied by other symptoms, or if your blood pressure is high, please call your primary physician for recommendation and/or examination. Q: I am unable to urinate. What do I do? A: A small percentage of people can have difficulty urinating initially after surgery. This includesbeing able to urinate only a very small amount at a time and feeling discomfort or pressure in the very low abdomen. This is called ???urinary retention?? , and is actually an urgent situation. Proceedto your nearest Emergency department for evaluation (not an Urgent Care Center). Sometimes the bladder does not work correctly after certain medications you receive during surgery, or related to certain procedures. You may need to have a catheter placed until your bladder recovers. When planning to goto an Emergency department, it may help to call the ER to let them know you are coming in for this problem after a surgery. This may help you get in quicker to be evaluated. If you have symptoms of a urinary tract infection, please contact your primary physician for the proper evaluation and treatment. If you have other questions, please call the office Saturday thru Saturday between 8am and 5pm to discuss with the nurse or physician executive marketing assistant. # There is a surgeon RESISTOR TESTING MACHINE OPERATOR on weekday evenings and over the weekend in case of urgent need only, andmay be contacted at the same number. If you are having an emergency, call 911 or proceed to your nearest emergency department. ING MACHINE TOOL SETTER documented in this encounter Medications at Time of Discharge Medication Sig Dispensed Refills Start Date End Date multivitamin, therapeutic Take 1 tablet by 0 (THERA-VIT) TABS mouth daily Probiotic Product Take 1 tablet by 0 (PROBIOTIC DAILY PO) mouth every evening amoxicillin-clavulanate Take 1 tablet by 10 tablet 0 201606/10/2016 (AUGMENTIN) 875-125 MG mouth 2 times daily per tabletIndications: for 5 days Perforated diverticulum of large intestine ASPIRIN PO Take 81 mg by mouth 0 03/02 every evening Atorvastatin Calcium Take 20 mg by mouth 0 03/02/2018 (LIPITOR PO) every evening MAGNESIUM OXIDE PO Take 400 mg by mouth 0 03/02/2018 every evening oxyCODONE (ROXICODONE) 5 Take 1-2 tablets 30 tablet 0 06/0503/02/2018 MG IR tabletIndications: (5-10 mg) by mouth Perforated diverticulum every 4 hours as of large intestine needed for pain documented as of this encounter Progress Notes Keara Campuzano MD - 06/05/2016 8:51 AM CST [facility] General Surgery Progress Note Assessment and Plan: Assessment: -POD#4 s/p Exploratory laparotomy, sigmoid colectomy with anastomosis, peritoneal drain placed; peritoneal cultures -Staph. Epidermidis, H. Parainfluenzae and E. Gallinarum -Leukocytosis on admission without additional sepsis criteria, due to perforated sigmoid diverticulitis -h/o CARLOS, using CPAP -high BPs, monitoring Plan: -start full liquids, ADAT -Pain management: po acetominophen and dilaudid IV prn -Prophylaxis: PCDs, lovenox, IV pepcid -IV Zosyn -CPAP per usual use. Incentive spirometer hourly when awake -Advance activity as tolerated, 4 walks today and up to chair -OK to shower -possible DC home tomorrow Interval History: Feels well, no c/o. Tolerating clear liquid diet, denies bloating or nausea. Still passing flatus, no BM yet. Walks halls 4-5X per day. Voiding independently. Not taking pain meds. Physical Exam: Blood pressure 174/84, pulse 77, temperature 97.9 ??F (36.6 ??C), temperature source Oral, resp. rate 18, height 1.753 m (5' 9.02), weight 115.7 kg (255 lb), SpO2 95 %. I/O last 3 completed shifts: In: 1842 [P.O.:960; I.V.:882] Out: - Abdomen: soft, rounded, non-tender and hypoactive bowel sounds Inc(s) - clean, dry, intact + asia VIDYA site - cdi, tegaderm dressing placed. Data: Recent Labs Lab Test 06/03/16 0638 05/31/1601/01/16 0204 HGB 13.1* 14.6 14.2 WBC 12.1* 13.4* 13.3* Mica Verma PA-C Doing well. Had large BM. Tolerating diet. Will discharge to home. Keara Campuzano MD [facility] ING MACHINE TOOL SETTER Keara Campuzano MD - 06/04/2016 9:00 AM CST [facility] General Surgery Progress Note Assessment and Plan: Assessment: -POD#3 s/p Exploratory laparotomy, sigmoid colectomy with anastomosis, peritoneal drain placed; peritoneal cultures -Staph. epidermidis and H. parainfluenzae; micro pending -Leukocytosis on admission without additional sepsis criteria, due to perforated sigmoid diverticulitis -Hypoxia, postoperative plus h/o CARLOS; supplemental O2 in place, home CPAP, resolved -Fever related to above; no signs of superficial infection at incision site; improving, monitor -Drain removed today Plan: -OK to start clear liquid slowly for 2-3 hours, then small meals. -Pain management: switch to po acetominophen and dilaudid IV prn -Prophylaxis: PCDs, lovenox, IV pepcid -IV Zosyn, await culture results -CPAP per usual use. Incentive spirometer hourly when awake -Advance activity as tolerated, 4 walks today and up to chair Interval History: Comfortable in chair, minimal use of NUCLEAR WORKER TECHNICIAN. Walking frequently. Voiding well. +flatus, feeling hungry.O2 supplement off. Physical Exam: Blood pressure 150/71, pulse 77, temperature 98.3 ??F (36.8 ??C), temperature source Oral, resp. rate 16, weight 115.7 kg (255 lb), SpO2 96 %. Tmax99.5 F I/O last 3 completed shifts: In: 601 [I.V.:601] Out: 3370 [Urine:3350; Drains:20] Abdomen: Rotund, soft, normal bowel sounds Midline abd inc - dry. No erythema at site. [place] in place Yannick - no fluid in bulb, serous fluid in tubing. Drain removed without issues. Dressing placed. Data: Recent Labs Lab 06/01/16 0048 CULT Moderate growth Staphylococcus epidermidis Susceptibility testing not routinely doneLight growth Haemophilus parainfluenzae Susceptibility testing not routinely doneLight growth Enterococcus gallinarum This Enterococcus species is considered to be intrinsically resistant to vancomycin due to the presence of a vanC gene for low-level resistance and does NOT require contact precautions.Critical Value/Significant Value, preliminary result only, called to and read back by Tahmina Zhang, RN @[facility] 06/02/16. .* Culture negative monitoring continues Recent Labs Lab 06/04/16 0740 06/03/16 0638 06/01/16 0747 05/31/16 2041 WBC -- 12.1* -- 13.4* HGB -- 13.1* -- 14.6 HCT -- 40.1 -- 44.8 MCV -- 92 -- 89 PLT 207 184 225 212 Recent Labs Lab 06/04/16 0740 06/03/16 0638 06/01/16 0747 05/31/16 2041 NA -- 141 -- 141 POTASSIUM -- 3.9 -- 3.6 CHLORIDE -- 108 -- 103 CO2 -- 26 -- 29 ANIONGAP -- 7 -- 9 GLC -- 131* -- 177* BUN -- 8 -- 13 CR 0.99 0.91 0.81 0.87 GFRESTIMATED 76 84 >90Non GFR Calc 88 GFRESTBLACK >90African Argentine GFR Calc >90African Argentine GFR Calc >90African Argentine GFR Calc >90African Argentine GFR Calc DEANDRA -- 7.9* -- 8.5 PROTTOTAL -- -- -- 7.1 ALBUMIN -- -- -- 3.6 BILITOTAL -- -- -- 0.4 ALKPHOS -- -- -- 104 AST -- -- -- 21 ALT -- -- -- 32 Niki Ortez PA-C Seen and agree, Keara Campuzano MD [facility] ING MACHINE TOOL SETTER Ashleigh Ramos MD - 06/03/2016 8:13 AM CST [facility] General Surgery Progress Note Assessment and Plan: Assessment: -POD#2 s/p Exploratory laparotomy, sigmoid colectomy with anastomosis, peritoneal drain placed; peritoneal cultures -Staph. epidermidis and H. parainfluenzae; micro pending -Leukocytosis on admission without additional sepsis criteria, due to perforated sigmoid diverticulitis -Hypoxia, postoperative plus h/o CARLOS; supplemental O2 in place, home CPAP, improving -Fever related to above; no signs of superficial infection at incision site; improving, monitor Plan: -Pain management: IV acetominophen and dilaudid NUCLEAR WORKER TECHNICIAN -Prophylaxis: PCDs, lovenox, IV pepcid -IV Zosyn, await culture results -Supplemental O2 and CPAP. Incentive spirometer hourly when awake -NPO except ice chips/sips of water, await return of bowel function -Advance activity as tolerated, 4 walks today and up to chair -Monitor for voiding vs urinary retention Interval History: Comfortable in bed, appropriate use of NUCLEAR WORKER TECHNICIAN. Up and walking yesterday, not yet today. Handley out, no void yet. No nausea. Started to pass flatus overnight, no appetite yet and felt bloated this am with no ice chips or water intake. O2 supplement needs decreasing. Physical Exam: Blood pressure 143/76, pulse 77, temperature 98.2 ??F (36.8 ??C), temperature source Oral, resp. rate 18, weight 115.7 kg (255 lb), SpO2 93 %. Tmax 100.9F I/O last 3 completed shifts: In: 2822 [I.V.:2822] Out: 3470 [Urine:3425; Drains:45] Abdomen: Rotund, possibly distended Midline abd inc - dry. No erythema at site. Yannick - serous fluid in bulb, no leak around site Data: Recent Labs Lab 06/01/16 0048 CULT Moderate growth Staphylococcus epidermidis These bacteria are part of normal skin chris, but onoccasion, may be true pathogens. Clinical correlation must be applied to interpreting this microbiology result.Light growth Haemophilus parainfluenzaeCulture in progressCritical Value/Significant Value, preliminary result only, called to and read back by Tahmina Zhang RN @9599 on 06/02/16. .* Culture negative monitoring continues Recent Labs Lab 06/03/16 0638 06/01/16 0747 05/31/16 2041 WBC 12.1* -- 13.4* HGB 13.1* -- 14.6 HCT 40.1 -- 44.8 MCV 92 -- 89 PLT 184 225 212 Recent Labs Lab 06/03/16 0638 06/01/16 0747 05/31/161 NA 141 -- 141 POTASSIUM 3.9 -- 3.6 CHLORIDE 108 -- 103 CO2 26 -- 29 ANIONGAP 7 -- 9 GLC 131* -- 177* BUN 8 -- 13 CR 0.91 0.81 0.87 GFRESTIMATED 84 >90Non GFR Calc 88 GFRESTBLACK >90African Argentine GFR Calc >90African Argentine GFR Calc >90African Argentine GFR Calc DEANDRA 7.9* -- 8.5 PROTTOTAL -- -- 7.1 ALBUMIN -- -- 3.6 BILITOTAL -- -- 0.4 ALKPHOS -- -- 104 AST -- -- 21 ALT -- -- 32 Niki Ortez PA-C The patient has been seen and examined by me. I agree with the above assessment and plan. Ashleigh Ramos MD ING MACHINE TOOL SETTER Ashleigh Ramos MD - 06/02/2016 8:40 AM CST [facility] General Surgery Progress Note Assessment and Plan: Assessment: -POD#1 s/p Exploratory laparotomy, sigmoid colectomy with anastomosis, peritoneal drain placed; peritoneal cultures pending -Leukocytosis on admission without additional sepsis criteria, due to perforated sigmoid diverticulitis -Hypoxia, postoperative plus h/o CARLOS; supplemental O2 in place, home CPAP -Fever related to above; no signs of superficial infection at incision site; monitor Plan: -Pain management: IV acetominophen and dilaudid NUCLEAR WORKER TECHNICIAN -Prophylaxis: PCDs, lovenox, IV pepcid -IV Zosyn, await culture results -Supplemental O2 and CPAP. Incentive spirometer hourly when awake -NPO except ice chips, await return of bowel function -Advance activity as tolerated, 2-3 walks today and up to chair -Handley in place, DC by POD#2 Interval History: Comfortable in bed, got sleep last night with CPAP in place. C/o midback soreness, mild abd discomfort/cramping. Had fever overnight, but denies having felt fever/chills/sweats. Handley in place. No nausea/heartburn. Was up to chair once yesterday. Reviewed need for increased activity today. Physical Exam: Blood pressure 130/73, pulse 68, temperature 99.7 ??F (37.6 ??C), temperature source Oral, resp. rate 18, weight 115.7 kg (255 lb), SpO2 96 %. Tmax 101.3F I/O last 3 completed shifts: In: 2973 [I.V.:2973] Out: 1725 [Urine:1700; Drains:25] Abdomen: Rotund, possibly distended Midline abd inc - dressing changed, dry. No erythema at site. Yannick - serous fluid in bulb, no leak around site Data: Recent Labs Lab Test 05/31/16 2041 01/02/16 0204 01/09/14 0445 HGB 14.6 14.2 15.8 WBC 13.4* 13.3* 18.6* Lactic acid 1.6 this am Niki Ortez PA-C The patient has been seen and examined by me. I agree with the above assessment and plan. Ashleigh Ramos MD ING MACHINE TOOL SETTER Meri Stephens, RT - 06/01/2016 12:29 PM CST Paged to put oxygen inline with patient's home CPAP. Patient currently on home CPAP with 5 LPM oxygen inline. SpO2 94%. RT to follow. ING MACHINE TOOL SETTER Keara Campuzano MD - 06/01/2016 10:16 AM CST [facility] General Surgery Progress Note Assessment and Plan: Assessment: -POD#0 s/p Exploratory laparotomy, sigmoid colectomy with anastomosis, peritoneal drain placed; peritoneal cultures pending -Leukocytosis on admission without additional sepsis criteria, due to perforated sigmoid diverticulitis -Hypoxia, postoperative plus h/o CARLOS; supplemental O2 in place, awaiting home CPAP Plan: -Pain management: IV acetominophen and dilaudid NUCLEAR WORKER TECHNICIAN -Prophylaxis: PCDs, lovenox dosing to start this afternoon, IV pepcid -IV Zosyn, await culture results -Family getting home CPAP -NPO except ice chips, await return of bowel function -Advance activity as tolerated, start OOB this afternoon -Handley in place, DC by POD#2 -Incentive spirometer ordered, encouraged to do this hourly when awake Interval History: Comfortable in bed, but very tired. Waiting for home CPAP to get some sleep. Pain with drain stripping, otherwise fairly comfortable. Handley in place. Not OOB yet. Physical Exam: Blood pressure 110/52, pulse 76, temperature 98.6 ??F (37 ??C), temperature source Axillary, resp. rate 16, weight 115.7 kg (255 lb), SpO2 97 %. I/O last 3 completed shifts: In: 3000 [I.V.:3000] Out: 520 [Urine:475; Drains:45] Abdomen: Rotund, possibly distended, hypoactive bowel sounds Midline abd inc - dressing intact with minimal shadowing at inferior aspect Yannick - in place. Some leakage around site. Data: Recent Labs Lab Test 05/31/16 2041 01/02/16 0204 01/09/14 0445 HGB 14.6 14.2 15.8 WBC 13.4* 13.3* 18.6* Niki Ortez PA-C Seen and agree, Keara Campuzano MD [facility] ING MACHINE TOOL SETTER Rachael Pena RT - 06/01/2016 5:39 AM CST Patient refusing hospital CPAP at this time. Rachael Pena June 01, 2016.5:39 AM ING MACHINE TOOL SETTER documented in this encounter H&P Notes Keara Campuzano MD - 06/01/2016 12:20 AM CST [facility] - H&P Nicolette Dickson Age: [age] year old Date of : 1950 HPI: Patient has been experiencing acute LLQ abdominal pain for the past 12 hours. These symptoms have been increasing in severity. The patient was diagnosed with diverticulitis about two weeks ago, and wasput on a 10 day course of Cipro and Flagyl. He had resolution of his symptoms, and finished his antibiotics yesterday. The patient has had two episodes of diverticulitis in the past, one in 2013 and one in December 2015. He denies any significant medical problems other than sleep apnea. He states he has mild hypertension. History is obtained from the patient Review Of Systems: Respiratory: No shortness of breath, dyspnea on exertion, cough, or hemoptysis Cardiovascular: negative Gastrointestinal: as above Genitourinary: Laser surgery of the bladder in the past. PMH: Past Medical History Diagnosis Date ??? Diverticulitis ??? Hypertension ??? Sleep apnea PSH: Past Surgical History Procedure Laterality Date ??? Orthopedic surgery ??? Genitourinary surgery Allergies: No Known Allergies Home Medications: Lipitor Aspirin Recent Cipro and Flagyl for diverticulitis Social History: Social History Substance Use Topics ??? Smoking status: Never Smoker ??? Smokeless tobacco: Not on file ??? Alcohol use No Family History: No significant anesthetic problems Objective: BP (!) 161/94 Pulse 76 Temp 97.7 ??F (36.5 ??C) (Temporal) Resp 20 Wt 115.7 kg (255 lb) SpO2 95% BMI37.66 kg/m2 General appearance: healthy, alert and mild distress Hydration: well hydrated Neck: normal and supple Lungs: normal and clear to auscultation Heart: regular rate and rhythm and no murmurs, clicks, or gallops Abdomen: rounded, normal bowel sounds. Tenderness: present: LLQ marked Masses: none Organomegaly: none Labs Reviewed: Lab Results Component Value Date WBC 13.4 05/31/2016 Lab Results Component Value Date HGB 14.6 05/31/2016 Lab Results Component Value Date PLT 212 05/31/2016 Last Basic Metabolic Panel: Lab Results Component Value Date NA 141 05/31/2016 Lab Results Component Value Date POTASSIUM 3.6 05/31/2016 Lab Results Component Value Date CHLORIDE 103 05/31/2016 Lab Results Component Value Date DEANDRA 8.5 05/31/2016 Lab Results Component Value Date CO2 29 05/31/2016 Lab Results Component Value Date BUN 13 05/31/2016 Lab Results Component Value Date CR 0.87 05/31/2016 Lab Results Component Value Date GLC 177 05/31/2016 Radiology: CT scan shows sigmoid diverticulitis with air bubbles in the surrounding mesentery. There are also afew scattered bubbles of air in the upper abdomen consistent with perforation. ASSESSMENT/PLAN: The patient's history, physical exam, laboratory and imaging studies are suspicious for perforated diverticulitis. I have recommended exploratory laparotomy with probable colectomy and probable colostomy. The risks, benefits, and alternatives have been discussed in detail. All of the patient's questions have been answered. They elect to proceed and we will go to the OR at the soonest availability. Pre-operative antibiotics have been ordered. Keara Campuzano MD ING MACHINE TOOL SETTER documented in this encounter ED Notes Latonya Gallagher RN - 05/31/2016 11:13 PM CST MD at bedside going over plan of care with pt. ING MACHINE TOOL SETTER Latonya Gallagher RN - 05/31/2016 11:05 PM CST Pt states pain is a bit better at 7.5 out of 10, back from CT and hooked back up to BP and O2 monitoring. ING MACHINE TOOL SETTER Gabrielle Nieto RN - 05/31/2016 8:10 PM CST Pt complains of LLQ pain, just finished abx yesterday for diverticulitis which he has a hx of, no imaging taken. ING MACHINE TOOL SETTER Mayi Tovar MD - 05/31/2016 7:57 PM CST History Chief Complaint: Abdominal Pain HPI Nicolette Lori Randolph is a 65 year old male who presents with left lower quadrant abdominal pain. The patient reports two weeks ago he had onset of abdominal pain and went to [facility] where he was clinically diagnosed with diverticulitis and was started on a 10 day course of Cipro, Flagyl, and a probiotic. He states he finished the course of antibiotics yesterday morning and at that time he was pain free. He denies any nausea, vomiting, or diarrhea with the initial onset of his pain. The patient statesat noon today he had gradual onset of left lower quadrant abdominal pain which has been progressively worsening, prompting his present to the ED this evening. He states he did not take any medication at home for the pain. He denies fever, chills, nausea, vomiting, diarrhea, or bloody stools and stateshe has not noticed any abdominal distention. He denies any abdominal surgeries. Allergies: NKDA Medications: Aspirin Probiotic Lipitor Past Medical History: Diverticulitis HTN HLD Sleep Apnea Past Surgical History: Orthopedic Surgery Surgery Family History: History reviewed. No significant family history. Social History: Relationship status: The patient denies smoking. The patient denies alcohol use. The patient presents with his . Review of Systems Constitutional: Negative for chills and fever. Gastrointestinal: Positive for abdominal pain. Negative for abdominal distention, blood in stool, diarrhea, nausea and vomiting. All other systems reviewed and are negative. Physical Exam Patient Vitals for the past 24 hrs: BP Temp Temp src Pulse Heart Rate Resp SpO2 Weight 05/31/16 2359 (!) 161/94 97.7 ??F (36.5 ??C) Temporal - - 20 - - 05/31/16 2339 160/85 98.4 ??F (36.9 ??C) Oral 76 - 20 95 % - 05/31/16 2315 (!) 181/95 - - - - - 94 % - 05/31/16 2300 (!) 171/91 - - - - - 94 % - 05/31/16 2215 153/88 - - - - - 98 % - 05/31/16 2200 (!) 165/94 - - - - - 96 % - 05/31/162008 (!) 181/98 98.7 ??F (37.1 ??C) Temporal 72 72 18 94 % 115.7 kg (255 lb) Physical Exam Eyes: Sclera white; Pupils are equal and round ENT: External ears and nares normal CV: Regular rate and rhythm, No murmur Resp: Breath sounds clear and equal bilaterally Non-labored, no retractions or accessory muscle use GI: Abdomen is soft, L mid and LLQ tenderness MS: Moves all extremities Skin: Warm and dry Neuro: Speech is normal and fluent. No apparent deficit. Emergency Department Course ECG @ 2339 Indication: Pre-Op Rate 78 bpm. IN interval 150 ms. QRS duration 78 ms. QT/QTc 368/419 ms. P-R-T axes -33. Notes: Normal sinus rhythm. Left axis deviation. Nonspecific T wave abnormality No prior ECG. Time read 0003 Imaging: Radiographic findings were communicated with the patient who voiced understanding of the findings. CT Abdomen and Pelvis, with contrast, as per radiology: IMPRESSION: 1. Diverticulitis of the proximal sigmoid colon. There are a few foci of extraluminal gas in the fat about the inflamed diverticulum and also scattered in the upper abdomen, consistent with perforation. 2. No abscess. Laboratory: CBC: WBC 13.4 (H) HGB 14.6 (WNL) PLT 212 (WNL) CMP: Cr 0.87 (WNL) Glucose 177 (WNL) Rest WNL Lactate: 1.3 (WNL) Interventions: 2200 Dilaudid, 0.5 mg, IV injection 2311 Dilaudid, 0.5 mg, IV injection 2329 Zosyn, 3.375 g, IV injection ED Course: Nursing notes and past medical history reviewed. I performed a physical examination of the patient as documented above. I explained the plan with the patient who consents to this. The patient underwent the workup as described above. 2308 Discussed the patient with Dr. Campuzano from General Surgery. 2312 Recheck and update with patient and . I personally reviewed the laboratory and imaging results with the Patient and answered all related questions prior to admission. Findings and plan explained to the Patient and his who consent to admission. Discussed the patient with Dr. Campuzano, who take the patient to the OR. Impression & Plan Medical Decision Making: Nicolette Dickson is a 65 year old male who presents to the emergency department today with acute worsening of left lower abdominal pain after completing antibiotics for a clinical diagnosis of diverticulitis. This was reviewed in Care Everywhere and he was on Cipro, Flagyl, and probiotics to treat this. His worsening is concerning for complications such as abscess, perforation, or alternate diagnosis such as renal stone, pyelonephritis, obstruction, or aortic pathology. Workup is consistent with perforated diverticulitis. This was discussed with Dr. Campuzano who recommended IV Zosyn and will be taking the patient to the OR given the extent of the free air. At his request I discussed the potential for colostomy with the patient and . Diagnosis: ICD-10-CM 1. Diverticulitis of large intestine with perforation without bleeding K57.20 Disposition: Admit under the care of Dr. Campuzano who will take the patient to the OR. I, Gildardo Jenkins, am serving as a scribe on 05/31/2016 at 11:01 PM to personally document services performed by Mayi Tovar MD, based on my observations and the provider's statements to me. Mayi Tovar MD 06/01/16 0340 ING MACHINE TOOL SETTER documented in this encounter Miscellaneous Notes Plan of Care - Antonietta Martinez RN - 06/05/2016 1:31 PM CST Problem: Goal Outcome Summary Goal: Goal Outcome Summary Outcome: Improving VSS except HTN 1x- notified surgery team No complaints of pain today Up independently, ambulated in hallway frequently Large BM today, passing flatus Advanced to low fiber diet Will DC this afternoon ING MACHINE TOOL SETTER Plan of Care - Shanel Coleman, REJI - 06/05/2016 5:54 AM CST Problem: Goal Outcome Summary Goal: Goal Outcome Summary Outcome: Improving Pt alert and oriented. Up ind. Dressing to abdomen and VIDYA site intact. On IV zosyn. POD 4. Clear liquid diet. Positive bowel sounds, passing gas. Lungs clear. ING MACHINE TOOL SETTER Plan of Care - Mason Saldivar RN - 06/04/2016 10:18 PM CST Problem: Goal Outcome Summary Goal: Goal Outcome Summary Outcome: Improving Neuro: A&O x4, pleasant and cooperative with cares VS: VSS, afebril Pain: c/o mild discomfort in abdomen when coughing, ABD binder on, denies need for pain medication Resp: LS clear, on RA, normal breathing pattern Cardiac: WDL GI/: bowel sounds positive, passing flats, no BM, voiding appropriately Diet: tolerating clear liquid diet Skin/mobility: midline incision, dressing intact, VIDYA drain removed on AM shift, scant amount of drainage on dressing, up independently, walked in hallway x1 Continues on IV Zosyn q6hrs. Continuous fluids d/c d/t tolerating oral fluids. Plan to discharge in 1-2 days Will continue to monitor and provide supportive care. ING MACHINE TOOL SETTER Plan of Care - Antonietta Martinez RN - 06/04/2016 2:55 PM CST Problem: Goal Outcome Summary Goal: Goal Outcome Summary Outcome: Improving VSS and afebrile No pain meds given this shift- abd binder in place VIDYA drain pulled this am Started on clear liquids diet, tolerated so far Zosyn for antibiotic Ambulating in hallway independently Passing gas, no BM yet Will continue to monitor ING MACHINE TOOL SETTER Plan of Care - Juliocesar Ellis RN - 06/04/2016 3:24 AM CST Problem: Goal Outcome Summary Goal: Goal Outcome Summary Pt vss, tmax 99.4. LSs clear, BS active, +ve for flatus, voiding adequately, dressing to abd CDI, Drain stripped x1. Tylenol+ zosyn scheduled. Denies N/V, N/T. Pt NPO with ioce chips. walkwed in hallways independently. CPAP with 1L O2 NC. ING MACHINE TOOL SETTER Plan of Care - Kelly Huerta - 06/03/2016 6:38 PM CST Problem: Goal Outcome Summary Goal: Goal Outcome Summary A&Ox4. BP up to 171/80, T up to 99.8. Other VSS. Up SBA. Tolerated ambulation in halls x4. Reports 2/10 L abdominal pain. NUCLEAR WORKER TECHNICIAN dilaudid 0.2mg available q10 min. CV WDL. Denies CP, numbness & tingling. LS clear. Infrequent, productive cough. Small amt of clear sputum. Denies SOB. BS audible in all 4 quadrants. NPO. Denies N/V. Passing flatus, no BM post op. Voiding adequately. UTV midline incision, dressing CDI. UTV VIDYA site, dried serous drainage on dressing. ING MACHINE TOOL SETTER Associated attestation - Tahmina Whitehead RN - 06/03/2016 7:51 PM LOADING MACHINE TOOL SETTER BP now WNL without intervention. Corner Former agrees with student note and assessment. Plan of Care - Juliocesar Ellis RN - 06/02/2016 10:07 PM CST Problem: Goal Outcome Summary Goal: Goal Outcome Summary VSS, Afebrile, denies pain. Surgical dressing CDI, drain insertion site mild drainage serosanguinous, abd binder in place, getting IV tylenol, NUCLEAR WORKER TECHNICIAN dilaudid, bowel sounds hypo, -ve for flatus. abd drainage + handley patent with adequate outputs. Denies nausea or SOB, Denies n/t and reports ambulating earlier and patient denies any new complains. Will continue to monitor. ING MACHINE TOOL SETTER Plan of Care - Kelly Huerta - 06/02/2016 6:38 PM CST Problem: Goal Outcome Summary Goal: Goal Outcome Summary A&Ox4. Temp up to 100.9. Other VSS. Tolerating ambulation in halls, SBA. Reports L side abdominal pain. NUCLEAR WORKER TECHNICIAN dilaudid 0.2mg q10 min. CV WDL. Denies CP, numbness & tingling. LS clear. Denies SOB. 3L O2 CPAP. BS faint, hypoactive in all quadrants. No flatus or BM post op. NPO. Denies N/V. Handley draining adequately, 1275mL output Midline abdominal incision UTV, dressing CDI. VIDYA left abdomen, UTV site, dressing CDI, 15 mL serous output w/clots. ING MACHINE TOOL SETTER Associated attestation - Tahmina Whitehead RN - 06/02/2016 6:52 PM LOADING MACHINE TOOL SETTER Corner Former agrees with student note and assessment. Plan of Care - Noelle Velez RN - 06/01/2016 10:43 PM CST Problem: Goal Outcome Summary Goal: Goal Outcome Summary Temp max 100.1 oral, other vitals stable. NPO, denies nausea. Pain well controlled with Dilaudid NUCLEAR WORKER TECHNICIAN, total used last 8 hours was 1.2 mg. Bowel sounds hypoactive, denies flatus. Handley patent. Midline incision with island dressing, some shadowing. Dressing surrounding VIDYA site was changed. Abdominal binder in place. ING MACHINE TOOL SETTER Plan of Care - Kelly Huerta - 06/01/2016 6:50 PM CST Problem: Goal Outcome Summary Goal: Goal Outcome Summary A&Ox4. VSS. Up A2. Tolerated ambulating to chair and sitting up for couple hours. Reports left side abdominal pain. NUCLEAR WORKER TECHNICIAN hydromorphone, 0.2mg available every 10 min. Ice applied. Abdominal binder inplace. CV WDL. Denies CP, numbness & tingling. LS clear, diminished. BS faint, hypoactive in all quadrants. NPO. Denies N/V. Not passing flatus. No BM post op. Handley catheter draining adequately, 350mL out. UTV midline abdominal incision. Dried drainage on dressing. UTV VIDYA site, 15mL serosanguenous fluid out. ING MACHINE TOOL SETTER Associated attestation - Tahmina Whitehead RN - 06/01/2016 8:33 PM LOADING MACHINE TOOL SETTER Corner Former agrees with student note and assessment. Pharmacy-Admission Medication History - Sulma Miller [facility] - 06/01/2016 9:00 AM CST Admission medication history interview status for this patient is complete. See [facility] admission navigator for allergy information, prior to admission medications and immunization status. Medication history interview source(s):Patient Medication history resources (including written lists, pill bottles, clinic record):[employer] [facility] Changes made to COLD PRESS LOADER medication list: Added: magnesium supplement Deleted: ---- Changed: added frequency to aspirin, lipitor and probiotic Actions taken by pharmacist (provider contacted, etc):None Additional medication history information:pt completed 10 day course cipro and flagyl on 05/30 Medication reconciliation/reorder completed by provider prior to medication history? Yes, sticky note for MD Prior to Admission medications Medication Sig Last Dose Taking? Auth Provider MAGNESIUM OXIDE PO Take 400 mg by mouth every evening 05/31/2016 at pm Yes Unknown, Entered By History ASPIRIN PO Take 81 mg by mouth every evening 05/31/2016 at pm Yes Reported, Patient Probiotic Product (PROBIOTIC DAILY PO) Take 1 tablet by mouth every evening 05/31/2016 at pm Yes Reported, Patient Atorvastatin Calcium (LIPITOR PO) Take 20 mg by mouth every evening 05/31/2016 at pm Yes Reported, Patient multivitamin, therapeutic (THERA-VIT) TABS Take 1 tablet by mouth daily 05/31/2016 at am Yes Reported, Patient ING MACHINE TOOL SETTER Plan of Care - Pratibha Whiting RN - 06/01/2016 8:06 AM CST Problem: Goal Outcome Summary Goal: Goal Outcome Summary Outcome: No Change Pt up to unit @ 0540 from PACU. IVF 100/hr. IV Zosyn and Ofirmev. Handley output 125. Left VIDYA with 30 output. 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 Denies any pain. On 5L oxymask. will bring bi-pap from home. ING MACHINE TOOL SETTER Op Note - Keara Campuzano MD - 06/01/2016 2:32 AM CST General Surgery Operative Note Pre-operative diagnosis: perforated colon Post-operative diagnosis: same Procedure: Colectomy, Sigmoid Surgeon: Keara Campuzano MD Outsole Handler(s): Manoj Mosqueda PA-C Anesthesia: General Estimated blood loss: 50 cc's Drains placed: Yannick Complications: None Findings: perforated sigmoid diverticulitis with localized contamination. There was no significant widespread peritonitis. Adjacent bowel loops appeared healthy. The colon proximal and distal to the area of perforation showed no evidence of thickening or acute inflammation. Therefore a primary anastomosis was performed. This was tension-free. INDICATION FOR OPERATION: This is a 65-year-old gentleman with a couple of previous episodes of diverticulitis. He was diagnosed with diverticulitis two weeks ago, but did not undergo a CT scan at thattime. He was started on Cipro and Flagyl and had resolution of his symptoms. Approximately 12 hours ago, the patient had recurrence of symptoms which were more severe than previously. He presented to the emergency room and a CT scan was obtained. This showed perforated diverticulitis with significant inflammation around the sigmoid colon as well as bubbles of air in the mesentery. There were also a few scattered bubbles of air in the upper abdomen, indicating a free perforation. Exploratory laparotomy with probable colectomy and probable colostomy was recommended. We discussed the procedure, along with its risks and complications, in detail. The patient agreed to proceed. DETAILS OF THE OPERATION: After informed consent, the patient was taken to the operating room where he underwent satisfactory induction of general anesthesia. The patient was sterilely prepped and draped and a midline incision was made above and below the umbilicus. Dissection was carried through the subcutaneous tissue using electrocautery and the fascia was opened using electrocautery. The peritoneum was entered without difficulty and a wound protector was placed. There was no significant diffuse peritonitis seen. There was no widespread inflammatory fluid. The sigmoid colon revealed an area of obvious swelling and inflammation. The sigmoid and left colon were mobilized up using electrocautery and the LigaSure device. The colon proximal and distal to the area of perforation appeared normal. Cultures were sent of the fluid adjacent to the perforation. A contour cutting stapler was now used to divide the sigmoid colon just distal to the area of perforation. The perforation was in the proximal si gmoid colon. The mesentery of the sigmoid was now taken down proximally using the LigaSure device. Once the left colon had been fully mobilized, an Endo BALDO stapler was used to come across the colon proximal to the area of perforation. The specimen was marked for orientation with a suture on the proximal end. We now assessed the mobility of the proximal and distal colon. The left colon was mobilized by taking down the splenic flexure. This allowed the proximal colon to come down side to side to the distal colon. There was a great deal of thick fat, colon throughout. The omentum was also extremely thick, measuring approximately 4 cm thick. There was no significant visible diverticular disease seen in the proximal and distal colon. It was felt that a primary anastomosis was appropriate as there hadbeen relatively minimal contamination and the colon was quite empty. A gobi-go-mgmu functional end-to-end stapled anastomosis was now performed. The staple lines were reinforced with 3-0 Vicryl. The anastomosis was entirely tension-free. It was placed appropriately in the gutter. A 15-Croatian round Yannick drain was now placed adjacent to the colon where the perforation had been. The drain was sutured in place at the skin. The abdomen was irrigated out using copious amounts of normal saline and antibiotic solution. The omentum was pulled down under the incision and the incision was closed using running looped 0 PDS sutures. The subcutaneous tissue was irrigated out and the skin was closed using skin asia. The patient tolerated the procedure well and was transferred to the recovery room in satisfactory condition. Sponge and needle counts were correct at the close of the case. Specimens: ID Type Source Tests Collected by Time Destination 1 : Fluid Peritoneum ANAEROBIC BACTERIAL CULTURE Keara Campuzano MD 06/01/2016 12:47 AM 2 : Wound Peritoneum FLUID CULTURE AEROBIC BACTERIAL, GRAM STAIN Keara Campuzano MD 06/01/2016 12:48 AM A : Tissue Large Intestine, Sigmoid SURGICAL PATHOLOGY EXAM Keara Campuzano MD 06/01/2016 1:24 AM Keara Campuzano MD ING MACHINE TOOL SETTER documented in this encounter Plan of Treatment Not on filedocumented as of this encounter Procedures Procedure Name Priority Date/Time Associated Diagnosis Comme nts PLATELET COUNT Routine 06/04/2016 7:40 Diverticulitis of Resul ts for this AM LOADING MACHINE TOOL SETTER large intestine with procedu re are in perforation without the resu lts bleeding section. CREATININE Routine 06/04/2016 7:40 Diverticulitis of Results for this AM LOADING MACHINE TOOL SETTER large intestine with procedu re are in perforation without the resu lts bleeding section. CPAP FOR STABLE SLEEP Routine 06/04/2016 12:05 APNEA WITH HOME AM LOADING MACHINE TOOL SETTER EQUIPMENT SETTINGS BASIC METABOLIC PANEL Routine 06/03/2016 6:38 Diverticulitis o f Results for this AM LOADING MACHINE TOOL SETTER large intestine with procedu re are in perforation without the resu lts bleeding section. CBC WITH PLATELETS Routine 06/03/2016 6:38 Diverticulitis of R esults for this AM LOADING MACHINE TOOL SETTER large intestine with procedu re are in perforation without the resu lts bleeding section. CPAP FOR STABLE SLEEP Routine 06/03/2016 12:05 APNEA WITH HOME AM LOADING MACHINE TOOL SETTER EQUIPMENT SETTINGS GLUCOSE BY METER Routine 06/02/2016 6:46 Diverticulitis of Res ults for this AM LOADING MACHINE TOOL SETTER large intestine with procedu re are in perforation without the resu lts bleeding section. LACTIC ACID WHOLE STAT 06/02/2016 5:56 Diverticulitis of Re sults for this BLOOD AM LOADING MACHINE TOOL SETTER large intestine with procedu re are in perforation without the resu lts bleeding section. CPAP FOR STABLE SLEEP Routine 06/02/2016 12:05 APNEA WITH HOME AM LOADING MACHINE TOOL SETTER EQUIPMENT SETTINGS PLATELET COUNT Routine 06/01/2016 7:47 Diverticulitis of Resul ts for this AM LOADING MACHINE TOOL SETTER large intestine with procedu re are in perforation without the resu lts bleeding section. CREATININE Routine 06/01/2016 7:47 Diverticulitis of Results for this AM LOADING MACHINE TOOL SETTER large intestine with procedu re are in perforation without the resu lts bleeding section. CPAP FOR STABLE SLEEP Routine 06/01/2016 4:54 APNEA WITH HOME AM LOADING MACHINE TOOL SETTER EQUIPMENT SETTINGS SURGICAL PATHOLOGY Routine 06/01/2016 1:24 Result s for this EXAM AM LOADING MACHINE TOOL SETTER procedure are i n the results section. GRAM STAIN Routine 06/01/2016 12:48 Diverticulitis of Result s for this AM LOADING MACHINE TOOL SETTER large intestine with procedu re are in perforation without the resu lts bleeding section. FLUID CULTURE AEROBIC Routine 06/01/2016 12:48 Diverticulitis of Results for this BACTERIAL AM LOADING MACHINE TOOL SETTER large intestine with procedu re are in perforation without the resu lts bleeding section. ANAEROBIC BACTERIAL Routine 06/01/2016 12:48 Diverticulitis of Results for this CULTURE ROUTINE AM LOADING MACHINE TOOL SETTER large intestine with proc edure are in perforation without the resu lts bleeding section. COLECTOMY, OPEN 06/01/2016 12:18 perforated colon AM LOADING MACHINE TOOL SETTER EKG 12-LEAD, TRACING STAT 05/31/2016 11:39 Res ults for this ONLY PM LOADING MACHINE TOOL SETTER procedure are i n the results section. CT ABDOMEN PELVIS W STAT 05/31/2016 10:29 Resu lts for this CONTRAST PM LOADING MACHINE TOOL SETTER procedure are i n the results section. CBC WITH PLATELETS & STAT 05/31/2016 8:41 Resu lts for this DIFFERENTIAL PM LOADING MACHINE TOOL SETTER procedure are i n the results section. LACTIC ACID WHOLE STAT 05/31/2016 8:41 Results for this BLOOD PM LOADING MACHINE TOOL SETTER procedure are i n the results section. COMPREHENSIVE STAT 05/31/2016 8:41 Results for this METABOLIC PANEL PM LOADING MACHINE TOOL SETTER procedure ar e in the results section. documented in this encounter Results Creatinine (06/04/2016 7:40 AM LOADING MACHINE TOOL SETTER) athologist Signature Creatinine 0.99 0.66 - 1.25 [place] mg/dL [facility] GFR Estimate 76 >60 [place] mL/min/1.7m [address] Comment: Non GFR Calc GFR Estimate If Black >90 >60 mL/min/1.7m2 [facility] GFR Calc HOSP ITAL Specimen Anatomical Collection Method Collection Time Receive d Time (Source) Location / / Volume Laterality Blood specimen 06/04/2016 7:40 AM 017 7:51 (specimen) LOADING MACHINE TOOL SETTER AM LOADING MACHINE TOOL SETTER Keara Campuzano MD LAB - BLOOD ORDERABLES Performing Organization Address City/State/ZIP Code Phon e Number M [facility] [address], [place] [address] [facility] [address] [phone] Platelet count (06/04/2016 7:40 AM LOADING MACHINE TOOL SETTER) P athologist Signature Platelet Count 207 150 - 450 [place] 10e9/L [facility] Specimen Anatomical Collection Method Collection Time Receive d Time (Source) Location / / Volume Laterality Blood specimen 06/04/2016 7:40 AM 017 7:51 (specimen) LOADING MACHINE TOOL SETTER AM LOADING MACHINE TOOL SETTER Keara Campuzano MD LAB - BLOOD ORDERABLES Performing Organization Address City/[facility]/ZIP [facility] Phon e Number M [facility] [address], [place] [address] [facility] [address] [place], [place] [address], [facility] [phone] (ABNORMAL) Basic metabolic panel (06/03/2016 6:38 AM LOADING MACHINE TOOL SETTER) athologist Signature Sodium 141 133 - 144 [place] mmol/[facility] Potassium 3.9 3.4 - 5.3 [place] mmol/[facility] Chloride 108 94 - 109 [place] mmol/L [facility] Carbon Dioxide 26 20 - 32 [place] mmol/L [facility] Anion Gap 7 3 - 14 [place] mmol/L [facility] Glucose 131 (H) 70 - 99 [place] mg/dL [facility] Urea Nitrogen 8 7 - 30 [place] mg/dL [facility] Creatinine 0.91 0.66 - [place] 1.25 mg/dL [facility] GFR Estimate 84 >60 [place] mL/min/1.[address] Comment: Non GFR Calc GFR Estimate If Black >90 >60 mL/min/1.7m2 [facility] GFR Calc HOSP ITAL Calcium 7.9 (L) 8.5 - 10.1 mg/dL [facility] Specimen Anatomical Collection Method Collection Time Receive d Time (Source) Location / / Volume Laterality Blood specimen 06/03/2016 6:38 AM 017 7:05 (specimen) LOADING MACHINE TOOL SETTER AM LOADING MACHINE TOOL SETTER Ashleigh Ramos MD LAB - BLOOD ORDERABLES Performing Organization Address City/State/ZIP Code Phon e Number M [facility] [address], [place] [address] [facility] [address] [place], [place] [address], [facility] [phone] (ABNORMAL) CBC with platelets (06/03/2016 6:38 AM LOADING MACHINE TOOL SETTER) Analysis Performed At Patho logist Time Signature WBC 12.1 (H) 4.0 - 11.0 [place] 10e9/L [facility] RBC Count 4.38 (L) 4.4 - 5.9 [place] 10e12/L [facility] Hemoglobin 13.1 (L) 13.3 - [place] 17.7 g/dL [facility] Hematocrit 40.1 40.0 - [place] 53.0 % [facility] MCV 92 78 - 100 [facility] MCH 29.9 26.5 - [place] 33.0 pg [facility] MCHC 32.7 31.5 - [place] 36.5 g/dL [facility] RDW 13.2 10.0 - [place] 15.0 % [facility] Platelet Count 184 150 - [address] Specimen Anatomical Collection Method Collection Time Receive d Time (Source) Location / / Volume Laterality Blood specimen 06/03/2016 6:38 AM 017 7:05 (specimen) LOADING MACHINE TOOL SETTER AM LOADING MACHINE TOOL SETTER Ashleigh Ramos MD LAB - BLOOD ORDERABLES Performing Organization Address City/State/ZIP Code Phon e Number [place] [address] [phone] (ABNORMAL) Glucose by meter (06/02/2016 6:46 AM LOADING MACHINE TOOL SETTER) athologist Signature Glucose 167 (H) 70 - 99 PO[facility] OF CARE mg/dL TEST, GLUCOSE Specimen Anatomical Collection Method Collection Time Receive d Time (Source) Location / / Volume Laterality 06/02/2016 6:46 AM 7 6:51 LOADING MACHINE TOOL SETTER AM LOADING MACHINE TOOL SETTER Keara Campuzano MD LAB - BEAKER POCT Performing Organization Address City/State/ZIP Code Phon e Number [facility] POINT OF CARE TEST, GLUCOSE POINT OF CARE TEST, GLUCOSE Lactic acid level STAT (06/02/2016 5:56 AM LOADING MACHINE TOOL SETTER) athologist Signature Lactic Acid 1.6 0.7 - 2.1 [place] mmol/[facility] Specimen Anatomical Collection Method Collection Time Receive d Time (Source) Location / / Volume Laterality Blood specimen 06/02/2016 5:56 AM 017 6:10 (specimen) LOADING MACHINE TOOL SETTER AM LOADING MACHINE TOOL SETTER Keara Campuzano MD LAB - BLOOD ORDERABLES Performing Organization Address City/[facility]/ZIP [facility] Phon e Number M [facility] [address], [place] [address] [facility] [address] [place], [place] [address] [phone] Creatinine (06/01/2016 7:47 AM LOADING MACHINE TOOL SETTER) [facility] gist Method Time Signature Creatinine 0.81 0.66 - [place] 1.25 [facility] mg/dL [facility] GFR Estimate >90 >60 [place] Non GFR Calc mL/min/1. [place] 7m2 [facility] GFR Estimate >90 >60 [place] If Black GFR Calc mL/min/1. [address] Specimen Anatomical Collection Method Collection Time Receive d Time (Source) Location / / Volume Laterality Blood specimen 06/01/2016 7:47 AM 017 7:58 (specimen) LOADING MACHINE TOOL SETTER AM LOADING MACHINE TOOL SETTER Keara Campuzano MD LAB - BLOOD ORDERABLES Performing Organization Address City/[facility]/ZIP Code Phon e Number M [facility] [address] [address] [facility] [address] [address], [facility] [phone] Platelet count (06/01/2016 7:47 AM LOADING MACHINE TOOL SETTER) athologist Signature Platelet Count 225 150 - 450 [place] 10e9/L [facility] Specimen Anatomical Collection Method Collection Time Receive d Time (Source) Location / / Volume Laterality Blood specimen 06/01/2016 7:47 AM 017 7:58 (specimen) LOADING MACHINE TOOL SETTER AM LOADING MACHINE TOOL SETTER Keara Campuzano MD LAB - BLOOD ORDERABLES Performing Organization Address City/State/ZIP Code Phon e Number M [facility] [address], [place] [address] [facility] [address] [place], [place] [address] [phone] Surgical pathology exam (06/01/2016 1:24 AM LOADING MACHINE TOOL SETTER) Component Value Ref Test Analysis Performed At [facility] Range Method Time Signature Copath Report Patient Name: NICOLETTE DICKSON MR#: [id number] Specimen #: [id number] Collected: 06/01/2016 Received: 06/01/2016 Reported: 06/04/2016 11:25 Ordering Phy(s): KEARA CAMPUZANO For improved result formatting, select 'View Enhanced Report Format' under Linked Documents section. SPECIMEN(S): Colon, sigmoid FINAL DIAGNOSIS: Sigmoid colon, colectomy. - Diverticular disease with diverticulitis with diverticular perforation and abscess formation. ??Negative for malignancy. Electronically signed out by: Masoud Saldana M.D. CLINICAL HISTORY: Perforated colon. GROSS: The specimen is received in formalin labeled with the patien t's name, identifying information and sigmoid. ??It consists of an 8 x 2.5 cm oriented segment of sigmoid colon with a stitch identifying the proximal end. ??There is an abundant amount of attached mesocolic karan pose tissue, 12 x I7 x 3 cm. ??The specimen is partially incised along tw o planes. Both proximal and distal margins appear viable. ??Approximat travis 2.5 cm from proximal margin a perforated area is identified. ??Sect ioning reveals additional diverticula, containing green soft fecal material. The mucosa is unremarkable. Summary of Sections: 1 - perpendicular section of proximal margin. 2 - perpendicular section of distal margin. 3-4 - perforated area. 5 - diverticula. 6 - sections of unremarkable colon. (Dictated by: Mayra garner 06/01/2016 08:59 AM) MICROSCOPIC: Microscopic evaluation performed. CPT Codes: A: 550[address]-HS2 TESTING LAB LOCATION: [address] ??[id number] COLLECTION SITE: Client: [facility] Location: [place]IF[place] (R) Specimen (Source) Anatomical Collection Method Collection Time Re ceived Time Location / / Volume Laterality Tissue specimen SIGMOID COLON PART 06/01/2016 1:24 AM (specimen) / Unknown LOADING MACHINE TOOL SETTER Comment: Stitch quevedo proximal Keara Campuzano MD LAB - BEAKER AP Performing Organization Address City/State/ZIP Code Phon e Number [place] (ABNORMAL) Gram stain (06/01/2016 12:48 AM LOADING MACHINE TOOL SETTER) Component Value Ref Test Analysis Performed At [facility] Range Method Time Signature Specimen Fluid [facility] Peritoneum [facility] Special Specimen [facility] Requests collected in [facility] eSwab transport [facility] (white cap) [facility] Gram Stain Rare Gram positive cocci MICR O RAPID Many WBC'S seen Predominance of PMNs seen TESTING LAB (A) Micro Report FINAL MICRO RAPID Status 06/01/2016 TESTING LAB Specimen (Source) Anatomical Collection Method Collection Time Re ceived Time Location / / Volume Laterality Specimen from SPECIMEN FROM 06/01/2016 12:48 wound (specimen) PERITONEUM / AM LOADING MACHINE TOOL SETTER Unknown Comment: Peritoneal fluid from abdomen. Keara Campuzano MD LAB - MICRO GENERAL ORDERABL ES Performing Organization Address City/State/ZIP Code Phon e Number MICRO RAPID TESTING LAB [address] [place] [id number] [address] (ABNORMAL) Fluid Culture Aerobic Bacterial (06/01/2016 12:48 AM LOADING MACHINE TOOL SETTER) Component Value Ref Test Analysis Performed At [facility] Range Method Time Signature Specimen Fluid Peritoneum [facility] Description [facility] Special This specimen was received o n a swab. Results may not be optimal. For maximum [facility] Requests sensitivity of detection, s ubmit tissue, fluid, or needle aspirate. Specimen [facility] collected in eSwab transport (white cap) [facility] Culture Micro Moderate growth Staphylococc us epidermidis Susceptibility testing not routinely INFECTIOUS done DISEASE Light growth Haemophilus par ainfluenzae Susceptibility testing not routinely done DIAGNOSTIC Light growth Enterococcus ga llinarum This Enterococcus species is considered to LABORATORY be intrinsically resistant to vancomycin due to the presence of a vanC gene for low-level resistance and does NOT require contact precautio ns. Critical Value/Significant Value, preliminary re sult only, called to and read back by Tahmina Zhang, RN @4549 on 06/02/16. . (A) Micro Report FINAL 06/04/2016 INFECTIOUS Status DISEASE DIAGNOSTIC LABORATORY Organism: Light growth Enterococcus ga llinarum This Enterococcus species is considered to INFECTIOUS be intrinsically resistant to vancomycin due to the presence of a vanC gene for DISEASE low-level resistance and does NOT require contact precautio ns. DIAGNOSTIC LABORATORY Specimen (Source) Anatomical Collection Method Collection Time Re ceived Time Location / / Volume Laterality Specimen from SPECIMEN FROM 06/01/2016 12:48 wound (specimen) PERITONEUM / AM LOADING MACHINE TOOL SETTER Unknown Comment: Peritoneal fluid from abdomen. Organism Antibiotic Method Susceptibility Light growth enterococcus Ampicillin <=2 [place] sceptible ug/mL gallinarum this enterococcus species is considered to be intrinsically resistant to vancomycin due to the presence of a vanc gene for low-level resistance and does not requ Light growth enterococcus Penicillin 1 Susc eptible ug/mL gallinarum this enterococcus species is considered to be intrinsically resistant to vancomycin due to the presence of a vanc gene for low-level resistance and does not requ Light growth enterococcus Vancomycin 6.0 In termediate ug/mL gallinarum this enterococcus species is considered to be intrinsically resistant to vancomycin due to the presence of a vanc gene for low-level resistance and does not requ Light growth enterococcus Gentamicin Screen Susc eptible gallinarum this enterococcus No high level gentamicin species is considered to be resi stance found - If no high intrinsically resistant to level gentamicin vancomycin due to the presence resistance is found, of a vanc gene for low-level com bination therapy with an resistance and does not requ ami noglycoside may be indicated for s erious enterococcal inf ections such as bacteremia an d endocarditis. Light growth enterococcus Linezolid 2 Susc eptible ug/mL gallinarum this enterococcus species is considered to be intrinsically resistant to vancomycin due to the presence of a vanc gene for low-level resistance and does not requ Keara Campuzano MD LAB - MICRO GENERAL ORDERABL ES Performing Organization Address City/State/ZIP Code Phon e Number INFECTIOUS DISEASES [address] [place] [address] DIAGNOSTIC LABORATORY, [address] [address] INFECTIOUS DISEASE [address] [place] [address], [facility] DIAGNOSTIC LABORATORY Anaerobic bacterial culture (06/01/2016 12:48 AM LOADING MACHINE TOOL SETTER) [facility] Method Time Signature Specimen Fluid [facility] Peritoneum [facility] Special Received in [facility] anaerobic ID MEDICAL tubes. [facility] Culture Micro No anaerobes INFECTIOUS isolated DISEASE DIAGNOSTIC LABORATORY Micro Report FINAL INFECTIOUS Status 06/08/2016 DISEASE DIAGNOSTIC LABORATORY Specimen (Source) Anatomical Collection Method Collection Time Re ceived Time Location / / Volume Laterality Fluid specimen SPECIMEN FROM 06/01/2016 12:47 (specimen) PERITONEUM / AM LOADING MACHINE TOOL SETTER Unknown Comment: Peritoneal fluid from abdomen Keara Campuzano MD LAB - MICRO GENERAL ORDERABL ES Performing Organization Address City/State/ZIP Code Phon e Number INFECTIOUS DISEASES [address] [place] [address] DIAGNOSTIC LABORATORY, [address] INFECTIOUS DISEASE [address] DIAGNOSTIC LABORATORY EKG 12 lead (05/31/2016 11:39 PM LOADING MACHINE TOOL SETTER) [facility] gist Method Time Signature Interpretation ECG Click View RADIOLOGY Image link RESULTS to view waveform and result Specimen (Source) Anatomical Collection Method Collection Time Re ceived Time Location / / Volume Laterality 05/31/2016 11:39 PM LOADING MACHINE TOOL SETTER Mayi Tovar MD ECG ORDERABLES Performing Organization Address City/State/ZIP Code Phon e Number RADIOLOGY RESULTS CT Abdomen Pelvis w Contrast (05/31/2016 10:29 PM LOADING MACHINE TOOL SETTER) Anatomical Region Laterality Modality Abdomen/Pelvis, SUBRAD CT BODY, [facility] CT ABDOMEN PELVIS Computed Tomography Specimen (Source) Anatomical Location Collection Method / Collectio n Time Received Time / Laterality Volume Impressions 06/01/2016 12:08 AM LOADING MACHINE TOOL SETTER IMPRESSION: 1. Diverticulitis of the proximal sigmoi d colon. There are a few foci of extraluminal gas in the fat about the inflamed diverticulum and also scattered in the upper abdomen, con sistent with perforation. 2. No abscess. MARCUS LONGORIA MD Narrative 06/01/2016 12:08 AM LOADING MACHINE TOOL SETTER CT ABDOMEN AND PELVIS WITH CONTRAST ?? 05/31/2016 10:29 PM HISTORY: Left lower quadrant pain. COMPARISON: 01/09/2014. TECHNIQUE: Following the uneventful admi nistration of 100mL Isovue-370 intravenous contrast, helical sections w ere acquired from the top of the diaphragm through the pubic symphysi s. Coronal reconstructions were generated. Radiation dose for this scan was reduced using automated exposure control, adjustment o f the mA and/or kV according to the patient's size, or iterative traci nstruction technique. FINDINGS: Abdomen: Subcentimeter low-attenuation l esion in the lateral segment of the left lobe of the liver, too small to characterize. The spleen, pancreas, adrenal glands and kidneys are unremarkable. 2.1 cm gallstone in the gallbladder. No enlarge d lymph nodes or free fluid in the upper abdomen. Atherosclerotic calci fication in the abdominal aorta. A few small foci of extraluminal gas are scattered within the upper abdomen (for example, in the midli ne anterior abdomen on series 2 image 28). Scan through the lower chest is unremark able. Pelvis: The small and large bowel are no rmal in caliber. Several diverticula are scattered within the col on. Mild haziness within the fat about a diverticulum in the proximal sigmoid colon (series 2 image 68). A few foci of extraluminal gas are present in the fat about this region. No circumscribed fluid collectio n in the pelvis. The appendix is unremarkable. No enlarged lymph nodes or free fluid in the pelvis. Moderate-sized right inguinal hernia con taining fat. Procedure Note Marcus Longoria MD - 06/01/2016Fo rmatting of this note might be different from the original. CT ABDOMEN AND PELVIS WITH CONTRAST 05/31 10:29 PM HISTORY: Left lower quadrant pain. COMPARISON: 01/09/2014. TECHNIQUE: Following the uneventful admi nistration of 100mL Isovue-370 intravenous contrast, helical sections w ere acquired from the top of the diaphragm through the pubic symphysi s. Coronal reconstructions were generated. Radiation dose for this scan was reduced using automated exposure control, adjustment o f the mA and/or kV according to the patient's size, or iterative traci nstruction technique. FINDINGS: Abdomen: Subcentimeter low-attenuation l esion in the lateral segment of the left lobe of the liver, too small to characterize. The spleen, pancreas, adrenal glands and kidneys are unremarkable. 2.1 cm gallstone in the gallbladder. No enlarge d lymph nodes or free fluid in the upper abdomen. Atherosclerotic calci fication in the abdominal aorta. A few small foci of extraluminal gas are scattered within the upper abdomen (for example, in the midli ne anterior abdomen on series 2 image 28). Scan through the lower chest is unremark able. Pelvis: The small and large bowel are no rmal in caliber. Several diverticula are scattered within the col on. Mild haziness within the fat about a diverticulum in the proximal sigmoid colon (series 2 image 68). A few foci of extraluminal gas are present in the fat about this region. No circumscribed fluid collectio n in the pelvis. The appendix is unremarkable. No enlarged lymph nodes or free fluid in the pelvis. Moderate-sized right inguinal hernia con taining fat. IMPRESSION: 1. Diverticulitis of the proximal sigmoi d colon. There are a few foci of extraluminal gas in the fat about the inflamed diverticulum and also scattered in the upper abdomen, con sistent with perforation. 2. No abscess. MARCUS LONGORIA MD Chino Mosher MD IMG CT ORDERABLES Lactic acid whole blood (05/31/2016 8:41 PM LOADING MACHINE TOOL SETTER) athologist Signature Lactic Acid 1.3 0.7 - 2.1 [place] mmol/L [facility] Specimen Anatomical Collection Method Collection Time Receive d Time (Source) Location / / Volume Laterality Blood specimen 05/31/2016 8:41 PM 017 8:49 (specimen) LOADING MACHINE TOOL SETTER PM LOADING MACHINE TOOL SETTER Chino Mosher MD LAB - BLOOD ORDERABLES Performing Organization Address City/State/ZIP Code [facility] e Number [place] [address] [facility] [address] [phone] (ABNORMAL) Comprehensive metabolic panel (05/31/2016 8:41 PM LOADING MACHINE TOOL SETTER) athologist Signature Sodium 141 133 - 144 [place] mmol/L [facility] Potassium 3.6 3.4 - 5.3 [place] mmol/L [facility] Chloride 103 94 - 109 [place] mmol/L [facility] Carbon Dioxide 29 20 - 32 [place] mmol/L [facility] Anion Gap 9 3 - 14 [place] mmol/L [facility] Glucose 177 (H) 70 - 99 [place] mg/dL [facility] Urea Nitrogen 13 7 - 30 [place] mg/dL [facility] Creatinine 0.87 0.66 - [place] 1.25 mg/dL [facility] GFR Estimate 88 >60 [place] mL/min/1.[address] Comment: Non GFR Calc GFR Estimate If Black >90 >60 mL/min/1.7m2 F [facility] GFR Calc HOSP ITAL Calcium 8.5 8.5 - 10.1 mg/dL [facility] Bilirubin Total 0.4 0.2 - 1.3 mg/dL [facility] Albumin 3.6 3.4 - 5.0 g/dL [facility] Protein Total 7.1 6.8 - 8.8 g/dL [facility] Alkaline Phosphatase 104 40 - 150 U/L [facility] ALT 32 0 - 70 U/L [facility] AST 21 0 - 45 U/L [facility] Specimen Anatomical Collection Method Collection Time Receive d Time (Source) Location / / Volume Laterality Blood specimen 05/31/2016 8:41 PM 017 8:58 (specimen) LOADING MACHINE TOOL SETTER PM LOADING MACHINE TOOL SETTER Chino Mosher MD LAB - BLOOD ORDERABLES Performing Organization Address City/State/ZIP Code Phon e Number [place] [address] [address] [place] [address] [facility] [address] [phone] (ABNORMAL) CBC + differential (05/31/2016 8:41 PM LOADING MACHINE TOOL SETTER) [facility] gist Method Time Signature WBC 13.4 (H) 4.0 - [place] 11.0 [facility] 10e9/L [facility] RBC Count 5.03 4.4 - 5.9 [place] 10e12/L [facility] Hemoglobin 14.6 13.3 - [place] 17.7 g/dL [facility] Hematocrit 44.8 40.0 - [place] 53.0 % [facility] MCV 89 78 - 100 [facility] MCH 29.0 26.5 - [facility] 33.0 pg [facility] MCHC 32.6 31.5 - [place] 36.5 g/dL [facility] RDW 13.2 10.0 - [place] 15.0 % [facility] Platelet Count 212 150 - 450 [place] 10e9/L [facility] Diff Method Automated [employer] % Neutrophils 65.8 % [facility] % Lymphocytes 23.4 % [facility] % Monocytes 7.5 % [facility] % Eosinophils 2.5 % [facility] % Basophils 0.4 % [facility] % Immature 0.4 % [place] Granulocytes [facility] Nucleated RBCs 0 0 /100 [facility] Absolute 8.8 (H) 1.6 - 8.3 [place] Neutrophil 10e9/L [facility] Absolute 3.1 0.8 - 5.3 [place] Lymphocytes 10e9/L [facility] Absolute 1.0 0.0 - 1.3 [place] Monocytes 10e9/L [facility] Absolute 0.3 0.0 - 0.7 [place] Eosinophils 10eL [facility] Absolute 0.1 0.0 - 0.2 [place] Basophils [address] [place] [address] Abs Immature 0.1 0 - 0.4 [place] Granulocytes [address] [place] [address] Absolute 0.0 [place] Nucleated RBC [facility] Specimen Anatomical Collection Method Collection Time Receive d Time (Source) Location / / Volume Laterality Blood specimen 05/31/2016 8:41 PM 017 8:58 (specimen) LOADING MACHINE TOOL SETTER PM LOADING MACHINE TOOL SETTER Chino Mosher MD LAB - BLOOD ORDERABLES Performing Organization Address City/State/ZIP Code Phon e Number [place] [address] [phone] documented in this encounter Visit Diagnoses Diagnosis Perforated diverticulum of large intesti ne - Primary Diverticulosis of colon (without mention of hemorrhage) Diverticulitis of large intestine with p erforation without bleeding documented in this encounter Administered Medications Inactive Administered Medications - up to 3 most recent administrations Medication Order MAR Action Action Date Dose Rate Site 0.9% sodium chloride BOLUS New Bag 05/31/2016 10:21 PM LOADING MACHINE TOOL SETTER 65 mLs Intravenous, 1,000 mL, ONCE, On Ly 05/31/16 at 2221, For 1 dose acetaminophen (OFIRMEV) infusion New Bag 06/01/2016 3:00 AM CS T 1,000 mg 400 mL/hr 1,000 mg 1,000 mg, Intravenous, at 400 mL/hr, ONCE, Administer over 15 Minutes, On Sat06/01/16 at 0300, For 1 dose, Maximum acetaminophen dose from all sources = 75 mg/kg/day not to exceed 4 grams/day., PACU acetaminophen (OFIRMEV) infusion New Bag 06/04/2016 6:05 AM CS T 1,000 mg 400 mL/hr 1,000 mg 1,000 mg, Intravenous, at 400 mL/hr, EVERY 6 HOURS, Administer over 15 Minutes, First dose on Sat06/01/16 at 0500, Continue until patient is no longer NPO and able to take clear liquids and other oral medications. Maximum acetaminophen dose from all sources = 75 mg/kg/day not to exceed 4 grams/day., Post-procedure New Bag 06/04/2016 12:09 AM LOADING MACHINE TOOL SETTER 1,000 mg 400 mL/hr New Bag 06/03/2016 5:57 PM LOADING MACHINE TOOL SETTER 1,000 mg 400 mL/hr acetaminophen (TYLENOL) tablet 500-1,000 mg 500-1,000 mg, Oral, EVERY 6 HOURS PRN, m ild pain, fever, Starting on Sat06/04/16 at 0907, Maximum acetaminophen dose from al l sources = 75 mg/kg/day not to exceed 4 gram dextrose 5% and 0.45% NaCl + KCl 20 New Bag 06/04/2016 9:58 AM LOADING MACHINE TOOL SETTER 100 mL/hr mEq/L infusion at 100 mL/hr, Intravenous, CONTINUOUS, Change to saline lock when well tolerated., Post-procedure, Starting on Sat06/01/16 at 0500, Until Sat06/04/16 at 1534 Rate/Dose Verify 06/04/2016 7:48 AM LOADING MACHINE TOOL SETTER 100 mL/hr New Bag 06/04/2016 12:09 AM LOADING MACHINE TOOL SETTER 100 mL/hr enoxaparin (LOVENOX) injection 40 mg Given 06/04/2016 9:46 PM LOADING MACHINE TOOL SETTER 40 mg 40 mg, Subcutaneous, EVERY 24 HOURS, First dose on Sat06/01/16 at 2100, Check to make sure start date/time is 12-24 hours post op unless documented complication, AND no sooner than 22 hours post op if spinal anesthesia used. Continue until discharge to home. HOLD if platelet count falls below 50% of baseline or less than 100,000/??L and notify provider., Post-procedure Given 06/03/2016 9:01 PM LOADING MACHINE TOOL SETTER 40 mg Given 06/02/2016 8:17 PM LOADING MACHINE TOOL SETTER 40 mg famotidine (PEPCID) injection 20 mg Given 06/05/2016 8:18 AM LOADING MACHINE TOOL SETTER 20 mg 20 mg, Intravenous, EVERY 12 HOURS, First dose on 06/02/16 at 0900 Given 06/04/2016 9:46 PM LOADING MACHINE TOOL SETTER 20 mg Given 06/04/2016 8:58 AM LOADING MACHINE TOOL SETTER 20 mg HYDROmorphone (DILAUDID) NUCLEAR WORKER TECHNICIAN 1 New Syringe/Cartridge 06/03/2016 9:42 PM LOADING MACHINE TOOL SETTER mg/mL NUCLEAR WORKER TECHNICIAN dose (mg): 0.2, Max NUCLEAR WORKER TECHNICIAN dose (mg): 0.3, Lockout Interval (min): 10 minutes, NUCLEAR WORKER TECHNICIAN Continuous Rate (mg/hr): CONTINUOUS RATE IS NOT RECOMMENDED FOR OPIOID NAIVE PATIENTS, Hour Limit (mg): 1.8, Initial Set-up verified by: aimee khan, First dose on Sat06/01/16 at 0400, Do NOT give any additional opioids while on NUCLEAR WORKER TECHNICIAN. When transitioning from NUCLEAR WORKER TECHNICIAN to oral opioids MAY give first oral opioid dose 30 minutes PRIOR to discontinuation of NUCLEAR WORKER TECHNICIAN., Intravenous, Post-procedure Shift Total 06/03/2016 1:32 PM LOADING MACHINE TOOL SETTER Rate/Dose Verify 06/03/2016 9:48 AM LOADING MACHINE TOOL SETTER HYDROmorphone (PF) (DILAUDID) injection 0.5 Given 05/16 11:11 PM LOADING MACHINE TOOL SETTER 0.5 mg mg 0.5 mg, Intravenous, EVERY 15 MIN PRN, moderate to severe pain, Starting on Ly 05/31/16 at 2151, For 3 doses Given 05/31/2016 10:00 PM LOADING MACHINE TOOL SETTER 0.5 mg Given 05/31/2016 11:11 AM LOADING MACHINE TOOL SETTER 0.5 mg iopamidol (ISOVUE-370) solution 500 mL Given 05/31/2016 10:21 PM LOADING MACHINE TOOL SETTER 100 mLs 500 mL, Intravenous, ONCE, On Ly 05/31/16 at 2221, For 1 dose labetalol (NORMODYNE/TRANDATE) injection 10 mg Given 06/01/2016 3:08 AM LOADING MACHINE TOOL SETTER 10 mg 10 mg, Intravenous, EVERY 3 MIN PRN, high blood pressure, for systolic greater than 160, Starting on Sat06/01/16 at 0250, For 4 doses, PACU Given 06/01/2016 2:54 AM LOADING MACHINE TOOL SETTER 10 mg lactated ringers infusion New Bag 06/01/2016 3:45 AM LOADING MACHINE TOOL SETTER 100 mL/hr at 100 mL/hr, Intravenous, CONTINUOUS, Continue until IV catheter is weaned, PACU, Starting on Sat06/01/16 at 0245, Until Sat06/01/16 at 0431 oxyCODONE (ROXICODONE) IR tablet 5-10 mg 5-10 mg, Oral, EVERY 3 HOURS PRN, severe pain, Startin g on Sat06/05/16 at 0920 piperacillin-tazobactam (ZOSYN) New Bag 05/31/2016 11:29 PM 3.375 g 100 mL/hr infusion 3.375 g LOADING MACHINE TOOL SETTER STAT, 3.375 g, Intravenous, ONCE, On Ly 05/31/16 at 2311, For 1 dose, Indications: Intra-Abdominal Infection piperacillin-tazobactam (ZOSYN) New Bag 06/05/2016 1:48 PM LOADING MACHINE TOOL SETTER 3.375 g 100 mL/hr infusion 3.375 g Routine, 3.375 g, Intravenous, EVERY 6 HOURS, First dose on Sat06/01/16 at 0700, Indications: Intra-Abdominal Infection New Bag 06/05/2016 8:18 AM LOADING MACHINE TOOL SETTER 3.375 g 100 mL/hr New Bag 06/05/2016 2:04 AM LOADING MACHINE TOOL SETTER 3.375 g 100 mL/hr sodium chloride (PF) 0.9% PF flush 3 mL Given 06/05/2016 2:04 AM LOADING MACHINE TOOL SETTER 3 mLs 3 mL, Intracatheter, EVERY 8 HOURS, First dose on Sat06/01/16 at 0500, And Q1H PRN, to lock peripheral IV dormant line., Post-procedure documented in this encounter Active and Recently Administered Medications Times are shown in LOADING MACHINE TOOL SETTER. Scheduled Medication Order 06/03/2016 06/04/2016 06/05/2016 acetaminophen (OFIRMEV) infusion 1,000 mg (CANCELED) 0 446 (New Bag - Provider: Juliocesar Ellis RN)1223 (New Bag - Provider: Kelly Huerta)1757 (New Bag - Provider: Kelly Huerta) 0009 (New Bag - Provider: Waleska Doherty PN)0605 (New Bag - Provider: Brittany Solomon LPN) 1,000 mg, Intravenous, at 400 mL/hr, KONRAD RY 6 HOURS, Administer over 15 Minutes, First dose on Sat06/01/16 at 0500, Continue until patient is no longer NPO and able to take clear liquids and other oral m edications. Maximum acetaminophen dose f rom all sources = 75 mg/kg/day not to exceed 4 grams/day., Post-procedure enoxaparin (LOVENOX) injection 40 mg 2100 (Given - Provider: Juliocesar Ellis RN) 2145 (Given - Provider: Mason Saldivar, REJI) 40 mg, Subcutaneous, EVERY 24 HOURS, Fir st dose on Sat06/01/16 at 2100, Check to make sure start date/time is 12-24 hours post op unless documented complication, AND no sooner than 22 hours post op if s theron anesthesia used. Continue until di scharge to home. HOLD if platelet count falls below 50% of baseline or less than 100,000/??L and notify provider., Post-procedure famotidine (PEPCID) injection 20 mg 0853 (Given - Prov ider: Kelly Huerta)2100 (Given - Provider: Juliocesar Ellis RN) 0858 (Given - Provider: Antonietta Martinez, REJI)2145 (Given - Provider: Mason Saldivar, REJI) 0818 (Given - Provider: Antonietta Martinez, REJI) 20 mg, Intravenous, EVERY 12 HOURS, First dose on Sat06/02/16 at 0900 HYDROmorphone (DILAUDID) NUCLEAR WORKER TECHNICIAN 1 mg/mL (CANCELED) 0639 ( New Syringe/Cartridge - Provider: Juliocesar Ellis RN)0948 (Rate/Dose Verify - Provider: Kelly Huerta)1332 (Shift Total - Provider: Tahmina Zhang RN)2142 (New Syringe/Cartridge - Provider: Juliocesar Ellis RN) 0808 (Canceled Entry - Provider: Antonietta Martinez RN - Comment: Pt did not use overnight - cancelled for night RN) NUCLEAR WORKER TECHNICIAN dose (mg): 0.2, Max NUCLEAR WORKER TECHNICIAN dose (mg): 0 .3, Lockout Interval (min): 10 minutes, NUCLEAR WORKER TECHNICIAN Continuous Rate (mg/hr): CONTINUOUS RATE IS NOT RECOMMENDED FOR OPIOID NAIVE PATIENTS, Hour Limit (mg): 1.8, Initial S et-up verified by: aimee khan, First dose on Sat06/01/16 at 0400, Do NOT give any additional opioids while on NUCLEAR WORKER TECHNICIAN. When transitioning from NUCLEAR WORKER TECHNICIAN to oral opioids MAY give first oral opioid dose 30 minut es PRIOR to discontinuation of NUCLEAR WORKER TECHNICIAN., Intravenous, Post-procedure piperacillin-tazobactam (ZOSYN) infusion 3.375 g 0019 (New Bag - Provider: Brittany Solomon LPN)0642 (New Bag - Provider: Juliocesar Ellis RN)1431 (New Bag - Provider: Kelly Huerta)2101 (New Bag - Provider: Juliocesar Ellis RN) 0222 (New Bag - Provider: Brittany Solomon LPN)0858 (New Bag - Provider: Antonietta Martinez, REJI)1427 (New Bag - Provider: Antonietta Martinez RN)2031 (New Bag - Provider: Mason Saldivar RN) 0204 (New Bag - Provider: Shanel Lopez, REJI)0818 (New Bag - Provider: Antonietta Martinez RN)1348 (New Bag - Provider: Jarvis Conway LPN) Routine, 3.375 g, Intravenous, EVERY 6 H OURS, First dose on Sat06/01/16 at 0700, Indications: Intra-Abdominal Infection sodium chloride (PF) 0.9% PF flush 3 mL 0428 (Not Give n - Provider: Brittany Solomon LPN - Reason: IV Infusing)1447 (Canceled Entry - Provider: Tahmina Zhang, REJI)2055 (Not Given - Provider: Juliocesar Ellis RN - Reason: IV Infusing) 0402 (Not Given - Provider: Juliocesar Ellis RN - Reason: IV Infusing)1300 (Canceled Entry - Provider: Antonietta Martinez RN) 0204 (Given - Provider: Shanel Lopez, REJI)0831 (Canceled Entry - Provider: Antonietta Martinez RN)1600 (Canceled Entry - Provider: Antonietta Martinez RN) 3 mL, Intracatheter, EVERY 8 HOURS, Firs t dose on Sat06/01/16 at 0500, And Q1H PRN, to lock peripheral IV dormant line., Post-procedure Continuous Medication Order 06/03/2016 06/04/2016 06/05/2016 dextrose 5% and 0.45% NaCl + KCl 20 mEq/L infusion (CA NCELED) 0440 (New Bag - Provider: Juliocesar Ellis RN) 0009 (New Bag - Provider: Waleska Doherty PN)0748 (Rate/Dose Verify - Provider: Antonietta Martinez, REJI)0958 (New Bag - Provider: Antonietta Martinez RN) at 100 mL/hr, Intravenous, CONTINUOUS, C hange to saline lock when well tolerated., Post-procedure, Starting on Sat06/01/16 at 0500, Until Sat06/04/16 at 1534 PRN Medication Order 06/03/2016 06/04/2016 06/05/2016 acetaminophen (TYLENOL) tablet 500-1,000 mg 500-1,000 mg, Oral, EVERY 6 HOURS PRN, m ild pain, fever, Starting on Sat06/04/16 at 0907, Maximum acetaminophen dose from all sources = 75 mg/kg/day not to exceed 4 gram lactated ringers BOLUS 500 mL Intravenous, 500 mL, EVERY 4 HOURS PRN, other, Give for urine output less than 80 mL/4 hours., Starting Sat06/01/16 at 0454, For 2 doses, Post-procedure lidocaine (LMX4) kit 5 g Topical, EVERY 1 HOUR PRN, pain, with VA D insertion or accessing implanted port., Starting Sat06/01/16 at 0454, Do NOT give if patient has a history of allergy to any local anesthetic or any courtney pro duct. Apply 30 minutes prior to VAD inse rtion or port access. MAX Dose: 2.5 g (?? of 5 g tube), Post-procedure lidocaine 1 % 1 mL 1 mL, Other, EVERY 1 HOUR PRN, mild pain with VAD insertion or accessing implanted port, Starting Sat06/01/16 at 0454, Do NOT give if patient has a history of allergy to any local anesthetic or any marcus ne product. MAX dose 1 mL subcutaneous OR intradermal in divided doses., Post-procedure naloxone (NARCAN) injection 0.1-0.4 mg 0.1-0.4 mg, Intravenous, EVERY 2 MIN PRN , opioid reversal, Starting Sat06/01/16 at 0454, For respiratory rate LESS than or EQUAL to 8. Partial reversal dose: 0.1 mg titrated q 2 minutes for Analgesia Si de Effects Monitoring Sedation Level of 3 (frequently drowsy, arousable, drifts to sleep during conversation).Full reversal dose: 0.4 mg bolus for Analgesia Side Effects Monitoring Sedation Level of 4 ( somnolent, minimal or no response to stimulation)., Post-procedu re ondansetron (ZOFRAN) injection 4 mg 4 mg, Intravenous, EVERY 6 HOURS PRN, na usea, vomiting, Administer over 2-5 Minutes, Starting Sat06/01/16 at 0454, Step 1 of nausea and vomiting management. If nausea not resolved in 15 minutes, go to S tep 2 prochlorperazine (COMPAZINE). Irritant., Post-procedure oxyCODONE (ROXICODONE) IR tablet 5-10 mg 5-10 mg, Oral, EVERY 3 HOURS PRN, severe pain, Starting on T ue 06/05/16 at 0920 prochlorperazine (COMPAZINE) injection 5 mg 5 mg, Intravenous, EVERY 6 HOURS PRN, na usea, vomiting, Starting Sat06/01/16 at 0454, This is Step 2 of nausea and vomiting management. If nausea not resolved in 15 minutes, notify provider., Post-procedure sodium chloride (PF) 0.9% PF flush 3 mL 3 mL, Intracatheter, EVERY 1 HOUR PRN, l ine flush, for peripheral IV flush post IV meds, Starting Sat06/01/16 at 0454, Post-procedure documented in this encounter Care Teams News Content Specialist Relationship Specialty Start Date End Date Sumanth Bearden PCP - General Family Practice 01/09/14 03/01/18 [id number] [place] NABIL LUNDBERG [id number] documented as of this encounter
--- OUTSIDE RECORDS SUMMARY | 2022-01-20 08:11 | XMS_ITS | Encounter Summary ---
:1950 Author Organization [facility] Address [address] [place] [address] Care Team Providers Name Role Phone Sumanth Bearden Primary Care Provider [phone] Reason for Visit Reason Comments Surgical Followup colectomy/sigmoid 06/01/16 Encounter Details Date Type Department Care Team Description 06/11/2016 Office Visit [facility] Vignesh Montez, Post operative follow-up Surgery Clinic (Primary Dx) [place] [address] Barros [facility] [address] [place] [phone] Social History Tobacco Use Types Packs/Day Years Used Date Never Smoker Tobacco Cessation: Counseling Given: Yes Alcohol Use Standard Drinks/Week Comments No 0 (1 standard drink = 0.6 oz pure alcoho l) Sex Assigned at Date Recorded Not on file documented as of this encounter Last Filed Vital Signs Vital Sign Reading Time Taken Comments Blood Pressure 132/76 06/11/2016 9:10 AM ULTRASOUND SUPERVISOR Pulse 76 06/11/2016 9:10 AM ULTRASOUND SUPERVISOR Temperature - - Respiratory Rate - - Oxygen Saturation 97% 06/11/2016 9:10 AM ULTRASOUND SUPERVISOR Inhaled Oxygen Concentration - - Weight 117.9 kg (260 lb) 06/11/2016 9:10 AM ULTRASOUND SUPERVISOR pt repo rted Height 175.3 cm (5' 9) 06/11/2016 9:10 AM ULTRASOUND SUPERVISOR pt repor leyda Body Mass Index 38.4 06/11/2016 9:10 AM ULTRASOUND SUPERVISOR documented in this encounter Progress Notes Vignesh Montez MD - 06/11/2016 9:30 AM CST Patient returns to follow-up regarding his recent sigmoid colectomy for perforated diverticulitis. He is doing well, and is eating and stooling without difficulty. He still has asia in place. The abdomen is soft. Asia are in place and the incision is healing well. The asia are removed without difficulty and Steri-Strips are placed. The patient is doing well from his sigmoid colectomy. I recommended lifelong fiber supplementation. He may return to see me in 1-2 weeks, but if he is doing extremely well, he may certainly cancel thatvisit. I did inform the patient that he certainly has the possibility in the future of developing diverticulitis. Vignesh Montez MD [facility] Please route or send letter to: Primary Care Provider (PCP) ASOUND SUPERVISOR documented in this encounter Plan of Treatment Not on filedocumented as of this encounter Visit Diagnoses Diagnosis Postoperative follow-up - Primary Follow-up examination, following unspeci fied surgery documented in this encounter Care Teams Airplane Patrol Pilot Relationship Specialty Start Date End Date Sumanth Bearden PCP - General Family Practice 01/09/14 03/01/[id number] [place] [id number] documented as of this encounter
--- OUTSIDE RECORDS SUMMARY | 2022-01-20 08:11 | XMS_ITS | Encounter Summary ---
:1950 Author Organization [facility] Address [address] [place] [address]. [place] [address] Care Team Providers Name Role Phone Shirley ZhouMalgorzata [place] Primary Care Provider [phone] Reason for Visit Auth/Cert Specialty Diagnoses / Procedures Referred By Contact Refer red To Contact Diagnoses Diverticulitis of large intestine with perforation without bleeding Perforated diverticulum of large intestine Rh 5 Medica l Surgical Procedures COMBINED COLECTOMY WITH COLOSTOMY [address], [place] [address] Phone: Fax: Referral ID Status Reason Start Date Expiration Date Visits Requ ested Visits Authorized [id number] 06/01/2016 06/01/2017 1 1 Encounter Details Date Type Department Care Team Description 06/01/2016 Anesthesia Event [facility] Richie Galaviz PeriOp Services MD [place] [address] [place] [address] ANESTHESIA [id number] [place], [place] [address] (Wo rk) Anesthesia Record Procedure Summary Procedure Name Responsible Anesthesia Start Anesthesia Stop Anesthesiologist Time Time exploratory Sal Galaviz MD 06/01/16 0020 7 0243 laparotomy sigmoid colectomy (N/A Abdomen) Events Date Time Event Comment 06/01/2016 0020 An Start 0020 An Start Data 0022 MD Present 0024 An Induction 0024 MD Present 0025 AN START SEVO 0026 An Intubation 0027 MD Present 0030 MD Present 0033 MD Present 0037 MD Present 0042 MD Present 0046 MD Present 0113 MD Present 0158 MD Present 0216 Present 0220 Present 0223 Present 0226 Present 0230 Present 0232 Present 0233 AN END SEVO 0234 an stop data 0234 Present 0243 An Stop Electronically s igned by Bassam Leigh on June 01 7 2:43 AM Name Total fentaNYL (SUBLIMAZE) injection 350 mcg propofol (DIPRIVAN) injection 10 mg/mL vial 160 mg lidocaine 1% 50 mg glycopyrrolate 0.2 mg/mL 0.2 mg succinylcholine 20 mg/mL 140 mg rocuronium 10mg/mL 80 mg ePHEDrine 5 mg/mL 0.8 mg HYDROmorphone 1 mg/ml 1 mg ondansetron 2 mg/mL 4 mg neostigmine 1mg/mL 4 mg lactated ringers infusion 2,700 mL Agents Name NO HELIOX O2 N2O Air Exp Sevoflurane Exp Isoflurane Exp Desflurane Exp N2O Ins Sevoflurane Ins Isoflurane Ins Desflurane O2 Auxiliary Blood No blood administrations on file. Lines, Drains, and Airways Type Details Placement Removal Incision/Surgical Site 06/01/16; 0219; 06/01/16 0219 by Abdomen Ed Chan, REJI Peripheral IV 05/31/16; 18 G; Right; 05/31/16 0000 by 06/04/16 1727 by Upper arm Mariely Newman, Mason Cheng RN Peripheral IV 06/01/16; Right 06/01/16 0000 by 06/04/16 1728 b y Noelle Velez RN Lauer, Alli J, REJI RETIRED ETT 06/01/16; 0025; Mask 06/01/16 0025 by 06/01/16 0 242 by Ventilation: Easy; Bassam Leigh Falvey, Gregory, REJI Ease of Intubation: TAB CUTTING MACHINE OPERATOR SENIOR DATA MINING ANALYST Easy; Airway Size: 8; Cuffed; Oral; Blade Type: Glidescope; Blade Size: 3; Insertion Attempts: 1; Breath Sounds: Equal, clear and bilateral; End Tidal CO2: Present; Dentition: Intact; Grade View of Cords: 1; Airway Adjuncts: [employer] scope Urethral Catheter 06/01/16; 0033; No; 06/01/16 0033 by 06/03/16 0000 by Anesthesia, Deep Ed Chan, REJI Martinez, [place] mikayla, Sedation/Paralysis; 16 RN fr Closed/Suction Drain 06/01/16; 0212; 1; 06/01/16 0212 by 7 0900 by Midline; Abdomen; Ed Chan RN Vue, Jarvis No u, RN Bulb; 15 Icelandic documented in this encounter Social History Tobacco Use Types Packs/Day Years Used Date Never Smoker Alcohol Use Standard Drinks/Week Comments No 0 (1 standard drink = 0.6 oz pure alcoho l) Sex Assigned at Date Recorded Not on file documented as of this encounter OR Notes Anesthesia Postprocedure Evaluation - Sal Galaviz MD - 06/01/2016 6:23 AM CST Patient: Raul Sandoval Randolph Procedure(s): exploratory laparotomy sigmoid colectomy - Wound Class: IV-Dirty or Infected Diagnosis:perforated colon Diagnosis Additional Information: Pre-operative diagnosis: perforated colon Post-operative diagnosis: same Procedure: Colectomy, Sigmoid Anesthesia Type: General, RSI, ETT Note: Anesthesia Post Evaluation Patient location during evaluation: PACU Patient participation: Able to fully participate in evaluation Level of consciousness: awake Pain management: adequate Airway patency: patent Cardiovascular status: acceptable Respiratory status: acceptable Hydration status: euvolemic PONV: controlled Anesthetic complications: None Last vitals: Vitals: 06/01/16 0518 06/01/16 0520 06/01/16 0521 BP: 126/70 Pulse: Resp: 18 Temp: 98.5 ??F (36.9 ??C) SpO2: 96% (!) 88% 95% Electronically Signed By: Sal Galaviz MD June 01, 2016 6:23 AM PRESS OPERATOR Anesthesia Preprocedure Evaluation - Sal Galaviz MD - 05/31/2016 11:25 PM CST PAC NOTE: ANESTHESIA PRE EVALUATION: Anesthesia Evaluation . ROS/MED HX ENT/Pulmonary: (+)sleep apnea, , . . (-) tobacco use, asthma and Other pulmonary disease Neurologic: (-) TIA, Other neuro hx and Dementia Cardiovascular: (+) Dyslipidemia, hypertension----. : . . . :. . (-) CAD, CHF, arrhythmias and valvular problems/murmurs METS/Exercise Tolerance: Hematologic: (-) anemia Musculoskeletal: (-) arthritis GI/Hepatic: (+) Inflammatory bowel disease, (-) hepatitis Renal/Genitourinary: (-) renal disease Endo: (-) Type I DM, Type II DM, thyroid disease, chronic steroid usage and obesity Psychiatric: (-) psychiatric history Infectious Disease: - neg infectious disease ROS Malignancy: - no malignancy Other: - neg other ROS Physical Exam Airway Mallampati: II TM distance: >3 FB Neck ROM: full Dental Cardiovascular Rhythm and rate: regular and normal (-) no murmur Pulmonary breath sounds clear to auscultation Other findings: Lab Test 05/31/16 01/02/16 01/09/14 2041 0204 0445 WBC 13.4* 13.3* 18.6* HGB 14.6 14.2 15.8 MCV 89 89 89 PLT 212 221 219 Lab Test 05/31/16 01/02/16 01/09/14 2041 0204 0445 NA 141 139 139 POTASSIUM 3.6 3.8 3.9 CHLORIDE 103 105 105 CO2 29 26 27 BUN 13 15 14 CR 0.87 0.94 0.99 ANIONGAP 9 8 7 DEANDRA 8.5 8.4* 8.7 GLC 177* 130* 145* Anesthesia Plan History & Physical Review History and physical reviewed and following examination; no interval change. ASA Status: 2 emergent. NPO Status: > 8 hours Plan for General, RSI and ETT with Propofol induction. Maintenance will be Balanced. PONV prophylaxis: Ondansetron (or other 5HT-3) and Dexamethasone or Solumedrol Postoperative Care Postoperative pain management: IV analgesics and Oral pain medications. Consents Anesthetic plan, risks, benefits and alternatives discussed with: Patient. Use of blood products discussed: Yes. Use of blood products discussed with Patient. Consented to blood products. . . PRESS OPERATOR documented in this encounter Miscellaneous Notes Anesthesia Care Transfer Note - Bassam Leigh APRN SENIOR DATA MINING ANALYST - 06/01/2016 2:40 AM CST Patient: Raul Dickson Procedure(s): exploratory laparotomy sigmoid colectomy - Wound Class: IV-Dirty or Infected Diagnosis: perforated colon Diagnosis Additional Information: No value filed. Anesthesia Type: General, RSI, ETT Note: Airway :ETT Patient transferred to:PACU Comments: Pt SV Good Tidal Volumes. Prepare to Transfer to PACU with ETT and O2. Pt VSS Report to GRINDER NEEDLE TIP, Transfer Care Vitals: (Last set prior to Anesthesia Care Transfer) SENIOR DATA MINING ANALYST VITALS 06/01/2016 0204 - 06/01/2016 0240 06/01/2016 Pulse: 76 SpO2: 96 % Resp Rate (observed): 16 Electronically Signed By: Bassam Leigh APRN CRNA June 01, 2016 2:40 AM PRESS OPERATOR documented in this encounter Plan of Treatment Not on filedocumented as of this encounter Visit Diagnoses Not on filedocumented in this encounter Administered Medications Inactive Administered Medications - up to 3 most recent administrations Medication Order MAR Action Action Date Dose Rate Site ePHEDrine injection Given 06/01/2016 2:20 AM BAG PRESS OPERATOR 0.8 mg PRN, Starting on Sat06/01/16 at 0220, Anesthesia Intra-op fentaNYL Citrate (PF) (SUBLIMAZE) inject ion Given 06/01/2016 2:00 AM BAG PRESS OPERATOR 50 mcg PRN, moderate to severe pain, Starting on Sat06/01/16 at 0024, Anesthesia Intra-op Given 06/01/2016 1:35 AM BAG PRESS OPERATOR 50 mcg Given 06/01/2016 12:36 AM BAG PRESS OPERATOR 150 mcg glycopyrrolate (ROBINUL) injection Given 06/01/2016 12:24 AM BAG PRESS OPERATOR 0.2 mg Intravenous, PRN, Starting on Sat06/01/16 at 0024, Anesthesia Intra-op HYDROmorphone (DILAUDID) injection Given 06/01/2016 2:29 AM BAG PRESS OPERATOR 1 mg PRN, moderate to severe pain, Starting on Sat06/01/16 at 0229, Anesthesia Intra-op lactated ringers infusion New Bag 06/01/2016 12:38 AM BAG PRESS OPERATOR at 25 mL/hr, Intravenous, CONTINUOUS, IF patient NOT on dialysis., Pre-procedure, Starting on Sat06/01/16 at 0000, Until Sat06/01/16 at 0242 New Bag 06/01/2016 12:10 AM BAG PRESS OPERATOR lidocaine 1 % injection Given 06/01/2016 12:24 AM BAG PRESS OPERATOR 50 mg Intravenous, PRN, Starting on Sat06/01/16 at 0024, Anesthesia Intra-op neostigmine (PROSTIGMINE) injection Given 06/01/2016 2:20 AM BAG PRESS OPERATOR 4 mg PRN, Starting on Sat06/01/16 at 0220, Anesthesia Intra-op ondansetron (ZOFRAN) injection Given 06/01/2016 2:30 AM BAG PRESS OPERATOR 4 mg Intravenous, PRN, nausea, vomiting, Administer over 2-5 Minutes, Starting on Sat06/01/16 at 0230, Anesthesia Intra-op propofol (DIPRIVAN) injection 10 mg/mL v ial Given 06/01/2016 12:24 AM BAG PRESS OPERATOR 160 mg PRN, Starting on Sat06/01/16 at 0024, Anesthesia Intra-op rocuronium (ZEMURON) injection Given 06/01/2016 2:04 AM BAG PRESS OPERATOR 10 mg PRN, Starting on Sat06/01/16 at 0024, Anesthesia Intra-op Given 06/01/2016 1:10 AM BAG PRESS OPERATOR 20 mg Given 06/01/2016 12:29 AM BAG PRESS OPERATOR 45 mg succinylcholine (ANECTINE) injection Given 06/01/2016 12:24 AM BAG PRESS OPERATOR 140 mg PRN, Starting on Sat06/01/16 at 0024, Anesthesia Intra-op documented in this encounter Care Teams Chrome Tanning Drum Operator Relationship Specialty Start Date End Date Sumanth Bearden PCP - General Family Practice 01/09/14 03/01/[id number] [place], [place] [id number] documented as of this encounter
--- OUTSIDE RECORDS SUMMARY | 2022-01-20 08:11 | XMS_ITS | Encounter Summary ---
:1950 Author Organization [facility] Address [address] [place] [address]. [place] [address] Care Team Providers Name Role Phone Clinic, [facility] Primary Care Provide r Reason for Visit Auth/Cert Specialty Diagnoses / Procedures Referred By Contact Refer red To Contact EMERGENCY MEDICINE Emergency Dept [address] [place] [address] Phone: Fax: Referral ID Status Reason Start Date Expiration Date Visits Requ ested Visits Authorized 03/19/2018 03/19/2019 Encounter Details Date Type Department Care Team Description 03/02/[address] [facility] Caesar Gonzalez rovascular accident (CVA), unspecified mechanism (H); Chu Swan MD Left arm weakness Dept [facility] [address] [place], [place] [address] [id number] [place] [address] [place], [place] [address] (Wo rk) Social History Tobacco Use Types Packs/Day Years Used Date Never Smoker Alcohol Use Standard Drinks/Week Comments No 0 (1 standard drink = 0.6 oz pure alcoho l) Sex Assigned at Date Recorded Not on file documented as of this encounter Last Filed Vital Signs Vital Sign Reading Time Taken Comments Blood Pressure 156/88 03/02/2018 9:20 PM BINDER COVERSTITCH Pulse 79 03/02/2018 5:30 PM BINDER COVERSTITCH Temperature 36.6 ??C (97.9 ??F) 03/02/2018 5:30 PM BINDER COVERSTITCH Respiratory Rate 16 03/02/2018 9:20 PM BINDER COVERSTITCH Oxygen Saturation 96% 03/02/2018 9:20 PM BINDER COVERSTITCH Inhaled Oxygen Concentration - - Weight 116.8 kg (257 lb 8 oz) 03/02/2018 5:00 PM BINDER COVERSTITCH Height - - Body Mass Index 38.03 06/11/2016 9:10 AM BINDER COVERSTITCH documented in this encounter Medications at Time of Discharge Medication Sig Dispensed Refills Start Date End Date multivitamin, therapeutic Take 1 tablet by 0 (THERA-VIT) TABS mouth daily Probiotic Product (PROBIOTIC Take 1 tablet by 0 DAILY PO) mouth every evening hydrochlorothiazide Take 1 capsule 30 capsule 0 03/08/2018 1 05/11/2017 (MICROZIDE) 12.5 MG (12.5 mg) by capsuleIndications: LVH mouth daily (left ventricular hypertrophy) documented as of this encounter Consult Notes Daina Hernandez MD - 03/02/2018 6:54 PM CST [facility] Stroke Consult Note Reason for Consult: Stroke Code Stroke code activated 03/02/18 1733 First stroke provider response 03/02/18 1736 Tele service began 03/02/18 1742 Tele service ended 03/02/18 1818 Last known normal 03/02/18 1445 Time of discovery (or onset of symptoms) 03/02/[address] read by me 03/02/18 1750 Was stroke code de-escalated? No Telestroke Service Details Type of service telemedicine diagnostic assessment of acute neurological changes Reason telemedicine is appropriate patient requires assessment with a specialist for diagnosis and treatment of neurological symptoms Mode of transmission secure interactive audio and video communication per Izzy Originating site (patient location) [facility] Distant site (provider location) [facility] TPA Treatment Administered. Risks and benefits of tPA were discussed with Patient and Family prior to administration. Endovascular Treatment Not initiated due to absence of proximal vessel occlusion HPI Raul Dickson is a 67 year old male with pmhx of Sigmoid colectomy 2017 for diverticulosis, HTN, sleep apnea on cpap. 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 Today after a nap he woke up with inability to move his left arm. His left arm was dropping. He alsohad severe hand weakness. Denies trouble walking, ? Slurring. No clear facial weakness. No word finding difficulty. Stroke Scales NIHSS Interval and Comments baseline 1a. Level of Consciousness 0-->Alert: keenly responsive 1b. LOC Questions 0-->Answers both questions correctly 1c. LOC Commands 0-->Performs both tasks correctly 2. Best Gaze 0-->Normal 3. Visual 0-->No visual loss 4. Facial Palsy 0-->Normal symmetrical movements 5a. Motor Arm, Left 1-->Drift: limb holds 90 (or 45) degrees, but drifts down before full 10 seconds: does not hit bed or other support 5b. Motor Arm, Right 0-->No drift: limb holds 90 (or 45) degrees for full 10 secs 6a. Motor Leg, Left 1-->Drift: leg falls by the end of the 5-sec period but does not hit bed 6b. Motor Leg, right 0-->No drift: leg holds 30 degree position for full 5 secs 7. Limb Ataxia 1-->Present in one limb 8. Sensory 0-->Normal: no sensory loss 9. Best Language 0-->No aphasia: normal 10. Dysarthria 0-->Normal 11. Extinction and Inattention 0-->No abnormality Total 3 Patient main deficit is in the left UE, mainly he can not move his fingers (slightly moves his index), very minimal drift in left leg. Code Status: Prior Impression Ischemic Stroke due to undetermined etiology . CT aspect 10. CTA no LVO or flow limiting stenosis. CTP shows reduce floe Rt frontal cortical location suggesting an embolic stroke. 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 Daina Hernandez MD Stroke Neurology March 02, 2018 Text Page ([id number]) Past Medical History: Diagnosis Date ??? Diverticulitis ??? Hypertension ??? Sleep apnea Past Surgical History: Procedure Laterality Date ??? COLECTOMY WITHOUT COLOSTOMY N/A 05/31/2016 Procedure: COLECTOMY WITHOUT COLOSTOMY; Surgeon: Vignesh Montez MD; Location: [facility] OR ??? GENITOURINARY SURGERY ??? ORTHOPEDIC SURGERY Medications Current Facility-Administered Medications Medication ??? alteplase (ACTIVASE) bolus dose 9 mg ??? alteplase (ACTIVASE) infusion 81 mg Current Outpatient Prescriptions Medication Sig ??? ASPIRIN PO Take 81 mg by mouth every evening ??? Atorvastatin Calcium (LIPITOR PO) Take 20 mg by mouth every evening ??? MAGNESIUM OXIDE PO Take 400 mg by mouth every evening ??? multivitamin, therapeutic (THERA-VIT) TABS Take 1 tablet by mouth daily ??? oxyCODONE (ROXICODONE) 5 MG IR tablet Take 1-2 tablets (5-10 mg) by mouth every 4 hours as needed for pain (Patient not taking: Reported on 06/11/2016) ??? Probiotic Product (PROBIOTIC DAILY PO) Take 1 tablet by mouth every evening (Not in a hospital admission) Allergies No Known Allergies Family History Family History Problem (# of Occurrences) Relation (Name,Age of Onset) Abdominal Aortic Aneurysm (1) Mother Coronary Artery Disease (1) Father Other Cancer (1) Father Social History Social History Social History ??? Marital status: Spouse name: N/A ??? Number of children: N/A ??? Years of education: N/A Occupational History ??? Not on file. Social History Main Topics ??? Smoking status: Never Smoker ??? Smokeless tobacco: Not on file ??? Alcohol use No ??? Drug use: No ??? Sexual activity: Yes Partners: Female Other Topics Concern ??? Not on file Social History Narrative PHYSICAL EXAMINATION B/P: Resp: Temp: General: patient lying in bed without any acute distress HEENT: normocephalic/atraumatic Extremities: no edema Skin: intact Neurologic Mental Status: fully alert, attentive and oriented, follows commands, speech clear and fluent Cranial Nerves: visual temple intact, EOMI with normal smooth pursuit, facial sensation intact and symmetric, facial movements symmetric, hearing not formally tested but intact to conversation, palate elevation symmetric and uvula midline, no dysarthria, shoulder shrug strong bilaterally, tongue protrusion midline Motor: no abnormal movements, normal tone throughout, normal muscle bulk left pronator drift, left hand severe weakness, severly reduced left hand FFM Reflexes: unable to test (telestroke) Sensory: intact/symmetric to light touch and pin prick throughout upper and lower extremities Coordination: Some minimal Left hand dysmetria Station/Gait: unable to test (telestroke) Labs/Imaging Labs and imaging were reviewed and used in developing plan; pertinent results included. Data CBC WBC (10e9/L) Date Value 03/02/2018 11.2 (H) 06/03/2016 12.1 (H) 05/31/2016 13.4 (H) RBC Count (10e12/L) Date Value 03/02/2018 5.16 06/03/2016 4.38 (L) 05/31/2016 5.03 Hemoglobin (g/dL) Date Value 03/02/2018 15.3 06/03/2016 13.1 (L) 05/31/2016 14.6 Hematocrit (%) Date Value 03/02/2018 46.1 06/03/2016 40.1 05/31/2016 44.8 Platelet Count (10e9/L) Date Value 03/02/2018 230 06/04/2016 207 06/03/2016 184 BMP Sodium (mmol/L) Date Value 06/03/2016 141 05/31/2016 141 01/02/2016 139 Potassium (mmol/L) Date Value 06/03/2016 3.9 05/31/2016 3.6 01/02/2016 3.8 Chloride (mmol/L) Date Value 06/03/2016 108 05/31/2016 103 01/02/2016 105 Carbon Dioxide (mmol/L) Date Value 06/03/2016 26 05/31/2016 29 01/02/2016 26 Glucose (mg/dL) Date Value 06/03/2016 131 (H) 05/31/2016 177 (H) 01/02/2016 130 (H) Urea Nitrogen (mg/dL) Date Value 06/03/2016 8 05/31/2016 13 01/02/2016 15 Creatinine (mg/dL) Date Value 06/04/2016 0.99 06/03/2016 0.91 06/01/2016 0.81 Calcium (mg/dL) Date Value 06/03/2016 7.9 (L) 05/31/2016 8.5 01/02/2016 8.4 (L) INR Troponin I A1C INR (no units) Date Value 03/02/2018 0.97 No results found for: TROPI No results found for: A1C Liver Panel Protein Total (g/dL) Date Value 05/31/2016 7.1 01/09/2014 7.7 Albumin (g/dL) Date Value 05/31/2016 3.6 01/09/2014 3.7 Bilirubin Total (mg/dL) Date Value 05/31/2016 0.4 01/09/2014 0.8 Alkaline Phosphatase (U/L) Date Value 05/31/2016 104 01/09/2014 107 AST (U/L) Date Value 05/31/2016 21 01/09/2014 15 ALT (U/L) Date Value 05/31/2016 32 01/09/2014 29 No results found for: BILIDIRECT Lipid Profile No results found for: CHOL No results found for: HDL No results found for: LDL No results found for: TRIG No results found for: CHOLHDLRATIO I have personally spent a total of 50 minutes providing critical care services supervising this patient's stroke code activation. I personally reviewed all lab values and radiology images. I evaluated and directed care for the patient's critical condition. ER COVERSTITCH documented in this encounter ED Notes Disha Anderson RN - 03/02/2018 9:30 PM CST SD updated on facial droop, stat CT and results. ER COVERSTITCH Disha Anderson RN - 03/02/2018 9:00 PM CST Noted left facial droop ER COVERSTITCH Disha Anderson RN - 03/02/2018 5:49 PM CST Took nap 3pm, woke up with left arm weakness 1645. Speech slurred per family, not on presentation toER. A&O x4. Moves other 3 extremities WNL ER COVERSTITCH Kimmy Boothe RN - 03/02/2018 5:31 PM CST Bed: ED13 Expected date: Expected time: Means of arrival: Comments: [facility] [facility]96 ER COVERSTITCH Caesar Gonzalez MD - 03/02/2018 5:30 PM CST History Chief Complaint: Stroke Suspicion HPI Raul Dickson is a 67 year old male who presents with suspicions of stroke. The patient took a nap around 1500 and woke up around 1545 with no control over left arm. The patient confirms weakness and trouble controlling his arm, as well as some numbness. but denies any tingling or numbness or weaknessin his legs. The patient's family thought his speech was slurred a little bit when he was at home, but here in the ER his speech is returned to normal. The patient described a titch of a headache when he woke up from his nap, but that is now completely resolved. No blurry or double vision. Patient and family deny any confusion. No recent head injuries. No chest pain or palpitations. No difficulty breathing. He is not anticoagulated. No history of A. fib. No recent bleeding or surgery.. Allergies: No known drug allergies Medications: Aspirin Lipitor Magnesium Oxide Roxicodone Past Medical History: Diverticulitis Hypertension Sleep apnea Past Surgical History: Colectomy without colostomy Orthopedic surgery Genitourinary surgery Family History: Abdominal aortic aneurysm Coronary artery disease Cancer Social History: The patient is not a smoker and does not use alcohol. Marital Status: [2] Review of Systems Neurological: Stroke Weakness and loss of control of left arm All other systems reviewed and are negative. Physical Exam Patient Vitals for the past 24 hrs: BP Temp Temp src Pulse Heart Rate SpO2 Weight 03/02/18 1930 155/82 - - - 70 95 % - 03/02/18 1920 150/85 - - - 67 95 % - 03/02/18 1910 (!) 174/95 - - - 74 96 % - 03/02/18 1850 164/65 - - - 74 94 % - 03/02/18 1830 166/84 - - - 73 96 % - 03/02/18 1820 175/88 - - - 80 94 % - 03/02/18 1815 175/88 - - - 88 95 % - 03/02/18 1730 187/89 97.9 ??F (36.6 ??C) Oral 79 - 100 % - 03/02/18 1700 - - - - - - 116.8 kg (257 lb 8 oz) Physical Exam Constitutional: Appears well-developed and well-nourished. Alert. Conversant. Non toxic. HENT: Head: Atraumatic. Nose: Nose normal. Mouth/Throat: Oral mucosa is clear and moist. no trismus. Pharynx normal. Tonsils symmetric. No tonsillar enlargement, erythema, or exudate. Eyes: Conjunctivae normal. EOM normal. Pupils equal, round, and reactive to light. No scleral icterus. Visual temple are full to confrontation Neck: Normal range of motion. Neck supple. No tracheal deviation present. Cardiovascular: Normal rate, regular rhythm. No gallop. No friction rub. No murmur heard. Symmetric radial artery pulses Pulmonary/Chest: Effort normal. No stridor. No respiratory distress. No wheezes. No rales. No rhonchi . No tenderness. Abdominal: Soft. Bowel sounds normal. No distension. No mass. No tenderness. No rebound. No guarding. Musculoskeletal: RUE: Normal range of motion. No tenderness. No deformity LUE: Normal range of motion. No tenderness. No deformity RLE: Normal range of motion. No edema. No tenderness. No deformity LLE: Normal range of motion. No edema. No tenderness. No deformity Lymph: No cervical adenopathy. Neurological: Alert and oriented to person, place, and time. Mental status normal. Attention normal.Alert and oriented x3. GCS 15. Memory normal. Speech fluent. Cognition normal. Cranial Nerves intact II-XII except I did not formally test gag or visual acuity. EOMI. Palate elevates symmetrically and tongue protrudes in the midline. 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 He has dysmetria and clumsiness movements of his left arm. And he is also have some left arm neglect. 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 5/5 bilaterally in the psoas, 5/5 bilaterally in the quadriceps, 5/5 bilaterally in the hamstring, 5/5 bilaterally in the gastrocnemius, 5/5 bilaterally in the tibialis anterior Sensation intact to light touch in both upper extremities (C4-T1) Sensation intact to light touch in Both lower extremities (L4-S1). Finger to nose and coordination normal. Gait not assessed due to stroke but he was able to stand at bedside. He was unable to push himself up using his left arm but he has full apparent strength in hisleft leg. Skin: Skin is warm and dry. No rash noted. No pallor. Normal capillary refill. Psychiatric: Normal mood. Normal affect. Very polite. National [employer] Stroke Scale Exam Interval: Baseline Score Level of consciousness: (0) Alert, keenly responsive LOC questions: (0) Answers both questions correctly LOC commands: (0) Performs both tasks correctly Best gaze: (0) Normal Visual: (0) No visual loss Facial palsy: (0) Normal symmetrical movements Motor arm (left): (1) Drift Motor arm (right): (0) No drift Motor leg (left): (0) No drift Motor leg (right): (0) No drift Limb ataxia: (1) Present in one limb Sensory: (1) Mild to moderate sensory loss Best language: (0) Normal- no aphasia Dysarthria: (0) Normal Extinction and inattention: (1) Visual, tacile, auditory, spatial, person inattention Total Score: 4- left arm symptoms Emergency Department Course Imaging: Radiographic findings were communicated with the patient who voiced understanding of the findings. CT Head w/o Contrast IMPRESSION: Diffuse cerebral volume loss and cerebral white matter changes consistent with chronic small vessel ischemic disease. No evidence for acute intracranial pathology. Radiation dose for this scan was reduced using automated exposure control, adjustment of the mA and/or kV according to patient size, or iterative reconstruction technique. As read by Radiology. CT Head Perfusion w Contrast IMPRESSION: There is a small area of delayed arrival of the contrast bolus at the posterolateral aspect of the right frontal lobe that could represent an area of ischemia. No other perfusion defects. This imaging study, including the abnormal finding of small posterior right frontal perfusion defect, was discussed with the ordering physician, Dr. Caesar Gonzalez, by Dr. Lopez on 03/02/2018 6:08 PM. Radiation dose for this scan was reduced using automated exposure control, adjustment of the mA and/or kV according to patient size, or iterative reconstruction technique As read by Radiology. CTA Head Neck with Contrast IMPRESSION: Normal neck and head CTA. Specifically, no definite occluded vessel noted to account for the perfusion defect at the posterior aspect of the right frontal lobe noted on the accompanying CT perfusion study. This imaging study was discussed with the ordering physician, Dr. Caesar Gonzalez, by Dr. Lopez on 03/02/2018 6:09 PM. Radiation dose for this scan was reduced using automated exposure control, adjustment of the mA and/or kV according to patient size, or iterative reconstruction technique. As read by Radiology. Laboratory: Laboratory findings were communicated to the patient who voiced understanding of the findings. CBC: WBC 11.2 (H) o/w WNL (HGB 15.3, PLT 230) INR: 0.97 Partial thromboplastin time: 39 (H) Troponin I: <0.015 BMP: Glucose 170 (H) o/w WNL (Creatinine 0.85) Glucose by meter: 162 (H) Interventions: 1830: Activase 9 mg IV bolus 1830: Activase 81 mg IV Emergency Department Course: Past medical records, nursing notes, and vitals reviewed. 1734: I performed an exam of the patient and obtained history, as documented above. 1738: IV inserted and blood drawn for laboratory tests, findings above. 1751: The patient was sent for a CT Head w/o Contrast while in the emergency department, findings above. 1808: I spoke with Dr. Lopez regarding this patient. 1830: The patient was sent for a CT head Perfusion with Contrast while in the emergency department, findings above. 183: The patient was sent for a CTA Head Neck with Contrast while in the emergency department, findings above. Findings and plan explained to the Patient. 1845: Patient will be transferred to [facility] via EMS. Discussed the case with Dr. Carranza, who will admit the patient to a monitored bed for further monitoring, evaluation, and treatment. 210: Nurse notified me that the patient has completed his TPA and has improved. He has now developed a left sided facial droop, slightly slurred speech, perhaps worsening weakness on the left arm. Patient awake and alert, answering questions appropriately, no headache. I went immediately to his bedside to reexamine. Blood pressure is still hypertensive but not above 185 systolic or requiring treatment after thrombolytics. He is in the 160/80 range. He does have a newleft facial droop, mildly slurred speech, tongue drift to the left with protrusion. He has ongoing left arm weakness. Patient had felt he was getting slightly better initially here in the ER but now his left arm is weaker again. National [employer] of [employer] Stroke Scale Exam Interval: Score Level of consciousness: (0) Alert, keenly responsive LOC questions: (0) Answers both questions correctly LOC commands: (0) Performs both tasks correctly Best gaze: (0) Normal Visual: (0) No visual loss Facial palsy: (2) Partial paralysis (total/near total of lower face) Motor arm (left): (1) Drift Motor arm (right): (0) No drift Motor leg (left): (0) No drift Motor leg (right): (0) No drift Limb ataxia: (1) Present in one limb Sensory: (1) Mild to moderate sensory loss Best language: (0) Normal- no aphasia Dysarthria: (1) Mild to moderate dysarthria Extinction and inattention: (1) Visual, tacile, auditory, spatial, person inattention Total Score: 7-left arm and left facial symptoms I sent the patient for stat noncontrast head CT to check for hemorrhagic conversion of his ischemic stroke after TPA. Fortunately CT scan is negative for bleeding. Impression & Plan [facility] Diagnoses: The patient has stroke symptoms: ED Stroke specific documentation NIHSS PDF Protocol PDF Patient last known well time: 1500 ED Provider first to bedside at: arrival CT Results received at: [facility] call about 1800 Patient was treated with TPA. The risks and benefits of TPA were reviewed using the risk informationdocument. These risks included bleeding complications such as intracranial bleeding and . The patient or patient???s surrogate???s decisional capacity was assessed to be intact. TPA decision was made after this informed consent. Stroke Mimics were considered (including migraine headache, seizure disorder, hypoglycemia (or hyperglycemia), head or spinal trauma, COIL SHAPER infection, Toxin ingestion and shock state (e.g. sepsis) . Medical Decision Making: Raul Dickson is a 67 year old male with history of hypertension, sleep apnea who was brought in by EMS today for evaluation of left arm weakness (also some slurred speech at home is now resolved). Symptoms are consistent with acute stroke. We activated a stroke call down and send the patient for stathead CT. It was negative for intracranial hemorrhage. CT angiogram did not show any large vessel occlusion amenable to intra-arterial intervention. CT perfusion did show a defect in the right frontal lobe that would correlate with the patient's neurologic deficits. He was not hypoglycemic. He was evaluated through telemetry medicine with the stroke neurologist, Dr.Al Ellison. Stroke neurologist recommen ded IV TPA as the patient is in the window, with clinically significant deficits, and no contraindications. I did have a discussion with the patient and his family about IV TPA as well. We discussed the risk of hemorrhage, but overall studies would suggest slightly improved outcomes with TPA compared to conservative management. They did give verbal consent, and I think they do have understandings of the potential benefit as well as the potential risk. IV TPA was administered while the patient was here in the ER. We made arrangements to transfer the patient via EMS to [facility] neuro [facility], as they have a stroke center with better capabilities for monitoring him after TPA and further care for stroke. The patient remained here in the ER for several hours after disposition was determined because of bed availability and waiting for transport. He remained hypertensive in the 150-160s systolic range. Noindication for emergent blood pressure control. Around 9 PM his nurses notified me that he developed a new left facial droop, slightly slurred speech. Upon reevaluation he did have a new facial droop, and a worsening NIH stroke scale. He did not have any headaches or altered mental status. Stat repeat noncontrast CT is fortunately negative for hemorrhagic conversion. He will be transferred via EMS to the neuro ICU at [facility]. Unfortunately no large vessel occlusions that would be amenable to intra- arterial rescue therapy. Discussed the stroke symptoms with the patient and his family. They are still agreeable to the plan. Critical Care time: was 30-40 minutes for this patient excluding procedures. Diagnosis: ICD-10-CM 1. Cerebrovascular accident (CVA), unspecified mechanism (H) I63.9 Glucose by meter Glucose by meter 2. Left arm weakness R29.898 Disposition: Transferred to [facility] Sandeep Contreras 03/02/2018 [facility] EMERGENCY DEPARTMENT Sandeep Monroe am serving as a scribe at 5:34 PM on 03/02/2018 to document services personally performed by Caesar Gonzalez MD based on my observations and the provider's statements to me. Caesar Gonzalez MD 03/03/18 1046 ER COVERSTITCH documented in this encounter Plan of Treatment Not on filedocumented as of this encounter Procedures Procedure Name Priority Date/Time Associated Diagnosis Comme nts CT HEAD W/O CONTRAST STAT 03/02/2018 9:20 Resu lts for this PM [facility]ER COVERSTITCH procedure are i n the results section. CT HEAD PERFUSION W STAT 03/02/2018 5:58 Resul ts for this CONTRAST PM [facility]ER COVERSTITCH procedure are i n the results section. CTA HEAD NECK W STAT 03/02/2018 5:55 Results f or this CONTRAST PM [facility]ER COVERSTITCH procedure are i n the results section. CT HEAD W/O CONTRAST STAT 03/02/2018 5:49 Resu lts for this PM [facility]ER COVERSTITCH procedure are i n the results section. CBC WITH PLATELETS & STAT 03/02/2018 5:38 Resu lts for this DIFFERENTIAL PM [facility]ER COVERSTITCH procedure are i n the results section. TROPONIN I STAT 03/02/2018 5:38 Results for this PM [facility] C[facility]STITCH procedure are i n the results section. INR STAT 03/02/2018 5:38 Results for this PM [facility] C[facility]STITCH procedure are i n the results section. PARTIAL THROMBOPLASTIN STAT 03/02/2018 5:38 Re sults for this TIME PM [facility]ER COVERSTITCH procedure are i n the results section. BASIC METABOLIC PANEL STAT 03/02/2018 5:38 Res ults for this PM [facility]ER COVERSTITCH procedure are i n the results section. GLUCOSE BY METER Routine 03/02/2018 5:37 Cerebrovascular Resul ts for this PM B[facility]ER COVERSTITCH accident (CVA), procedure ar e in unspecified mechanism the re sults (H) section. documented in this encounter Results CT Head w/o Contrast (03/02/2018 9:20 PM BINDER COVERSTITCH) Anatomical Region Laterality Modality Head, SUBRAD CT NEURO, SUBRAD CT NEURO, UMP CT NEURO, Computed Tomography RAD CT Specimen (Source) Anatomical Location Collection Method / Collectio n Time Received Time / Laterality Volume Impressions 03/02/2018 10:55 PM BINDER COVERSTITCH IMPRESSION: Diffuse cerebral volume loss and cerebral white matter changes consistent with chronic small ve ssel ischemic disease. No evidence for acute intracranial patholog y. ??No change from the recent comparison study. Radiation dose for this scan was reduced using automated exposure control, adjustment of the mA and/or kV according to patient size, or iterative reconstruction technique J LUIS LOPEZ MD Narrative 03/02/2018 10:[address] OF THE HEAD WITHOUT CONTRAST 03/02/2018 9:20 PM COMPARISON: Head CT same day. HISTORY: Stroke symptoms, left arm weak. Got TPA, now facial droop. TECHNIQUE: [address] images of the head were acquired without IV contrast material. FINDINGS: There is moderate diffuse cere bral volume loss. There are subtle patchy areas of decreased density in the cerebral white matter bilaterally that are consistent with seq uela of chronic small vessel ischemic disease. The ventricles and basal cisterns are wi thin normal limits in configuration given the degree of cerebr al volume loss. ??There is no midline shift. There are no extra-axial fluid collections. No intracranial hemorrhage, mass or rece nt infarct. The visualized paranasal sinuses are wel l-aerated. There is no mastoiditis. There are no fractures of t he visualized bones. Procedure Note J Luis Lopez MD - 03/02/2018Forma tting of this note might be different from the original. CT OF THE HEAD WITHOUT CONTRAST 03/02/20 9:20 PM COMPARISON: Head CT same day. HISTORY: Stroke symptoms, left arm weak. Got TPA, now facial droop. TECHNIQUE: [address] images of the head were acquired without IV contrast material. FINDINGS: There is moderate diffuse cere bral volume loss. There are subtle patchy areas of decreased density in the cerebral white matter bilaterally that are consistent with seq uela of chronic small vessel ischemic disease. The ventricles and basal cisterns are wi thin normal limits in configuration given the degree of cerebr al volume loss. There is no midline shift. There are no extra-axial fluid collections. No intracranial hemorrhage, mass or rece nt infarct. The visualized paranasal sinuses are wel l-aerated. There is no mastoiditis. There are no fractures of t he visualized bones. IMPRESSION: Diffuse cerebral volume loss and cerebral white matter changes consistent with chronic small ve ssel ischemic disease. No evidence for acute intracranial patholog y. No change from the recent comparison study. Radiation dose for this scan was reduced using automated exposure control, adjustment of the mA and/or kV according to patient size, or iterative reconstruction technique J LUIS LOPEZ MD Caesar Gonzalez MD IMG CT ORDERABLES CT Head Perfusion w Contrast (03/02/2018 5:58 PM BINDER COVERSTITCH) Anatomical Region Laterality Modality Head, SUBRAD CT NEURO, SUBRAD CT NEURO, P CT NEURO Computed Tomography Specimen (Source) Anatomical Location Collection Method / Collectio n Time Received Time / Laterality Volume Impressions 03/02/2018 10:55 PM B[facility]ER COVERSTITCH IMPRESSION: There is a small area of delayed arrival of the contrast bolus at the posterolateral aspect of th e right frontal lobe that could represent an area of ischemia. No other perfusion defects. This imaging study, including the abnorm al finding of small posterior right frontal perfusion defect, was disc ussed with the ordering physician, Dr. Caesar Gonzalez, by Dr. Lopez on 03/02/2018 6:08 PM. Radiation dose for this scan was reduced using automated exposure control, adjustment of the mA and/or kV according to patient size, or iterative reconstruction technique J LUIS LOPEZ MD Narrative 03/02/2018 10:[address] BRAIN PERFUSION 03/02/2018 5:58 PM COMPARISON: None HISTORY: Code stroke. TECHNIQUE: Time sequential axial CT imag es of the head were acquired during the administration of intravenous contrast (50 mL Isovue-370). CTA images of the resighini of Pedro as we ll as color perfusion maps of the brain were created from this time se quential axial source data. Procedure Note J Luis Lopez MD - 03/02/2018Forma tting of this note might be different from the original. CT BRAIN PERFUSION 03/02/2018 5:58 PM COMPARISON: None HISTORY: Code stroke. TECHNIQUE: Time sequential axial CT imag es of the head were acquired during the administration of intravenous contrast (50 mL Isovue-370). CTA images of the resighini of Pedro as we ll as color perfusion maps of the brain were created from this time se quential axial source data. IMPRESSION: There is a small area of del ayed arrival of the contrast bolus at the posterolateral aspect of e right frontal lobe that could represent an area of ischemia. No other perfusion defects. This imaging study, including the abnorm al finding of small posterior right frontal perfusion defect, was disc ussed with the ordering physician, Dr. Caesar Gonzalez, by Dr. Lopez on 03/02/2018 6:08 PM. Radiation dose for this scan was reduced using automated exposure control, adjustment of the mA and/or kV according to patient size, or iterative reconstruction technique J LUIS LOPEZ MD Caesar Gonzalez MD IMG CT ORDERABLES CTA Head Neck with Contrast (03/02/2018 5:55 PM BINDER COVERSTITCH) Anatomical Region Laterality Modality Head, SUBRAD CT NEURO, SUBRAD CT NEURO, UMP CT NEURO, Computed Tomography RAD CT Specimen (Source) Anatomical Location Collection Method / Collectio n Time Received Time / Laterality Volume Impressions 03/02/2018 10:56 PM BINDER COVERSTITCH IMPRESSION: Normal neck and head CTA. Specifically, no definite occluded vessel noted to account for the perfusion defect at the posterior aspect of the right frontal lo be noted on the accompanying CT perfusion study. This imaging study was discussed with e ordering physician, Dr. Caesar Gonzalez, by Dr. Lopez on 05/02/2017 6:09 PM. Radiation dose for this scan was reduced using automated exposure control, adjustment of the mA and/or kV according to patient size, or iterative reconstruction technique J LUIS LOPEZ MD Narrative 03/02/2018 10:[address] ANGIOGRAM OF THE HEAD AND NECK WITHOUT AND WITH CONTRAST 03/02/2018 5:55 PM COMPARISON: None. HISTORY: Code stroke; left side weakness . TECHNIQUE: ??Precontrast localizing scan s were followed by CT angiography with an injection of 70 mL I sovue-370 nonionic intravenous contrast material with scans through the head and neck. ??Images were transferred to a separate 3-D workstatio n where multiplanar reformations and 3-D images were created . ??Estimates of carotid stenoses are made relative to the distal internal carotid artery diameters except as noted. ?? FINDINGS: Neck CTA: The common carotid arteries bi laterally are tortuous but are patent without stenosis. The cervical in ternal carotid arteries bilaterally are tortuous but are patent without stenosis. The vertebral arteries bilaterally are tortu ous but are patent without stenosis. Head CTA: The basilar, bilateral distal internal carotid, bilateral anterior cerebral, bilateral middle cere bral and bilateral posterior cerebral arteries are patent and unremar kable. The anterior communicating and right posterior commun icating arteries are patent and unremarkable. Procedure Note J Luis Lopez MD - 03/02/2018Forma tting of this note might be different from the original. CT ANGIOGRAM OF THE HEAD AND NECK WITHOU T AND WITH CONTRAST 03/02/2018 5:55 PM COMPARISON: None. HISTORY: Code stroke; left side weakness . TECHNIQUE: Precontrast localizing scans were followed by CT angiography with an injection of 70 mL I sovue-370 nonionic intravenous contrast material with scans through the head and neck. Images were transferred to a separate 3-D workstatio n where multiplanar reformations and 3-D images were created . Estimates of carotid stenoses are made relative to the distal internal carotid artery diameters except as noted. FINDINGS: Neck CTA: The common carotid arteries bi laterally are tortuous but are patent without stenosis. The cervical in ternal carotid arteries bilaterally are tortuous but are patent without stenosis. The vertebral arteries bilaterally are tortu ous but are patent without stenosis. Head CTA: The basilar, bilateral distal internal carotid, bilateral anterior cerebral, bilateral middle cere bral and bilateral posterior cerebral arteries are patent and unremar kable. The anterior communicating and right posterior commun icating arteries are patent and unremarkable. IMPRESSION: Normal neck and head CTA. Sp ecifically, no definite occluded vessel noted to account for the perfusion defect at the posterior aspect of the right frontal lo be noted on the accompanying CT perfusion study. This imaging study was discussed with [facility] ordering physician, Dr. Caesar Gonzalez, by Dr. Lopez on 05/02/2017 6:09 PM. Radiation dose for this scan was reduced using automated exposure control, adjustment of the mA and/or kV according to patient size, or iterative reconstruction technique J LUIS LOPEZ MD Caesar Gonzalez MD IMG CT ORDERABLES CT Head w/o Contrast (03/02/2018 5:49 PM BINDER COVERSTITCH) Anatomical Region Laterality Modality Head, SUBRAD CT NEURO, SUBRAD CT NEURO, UMP CT NEURO, Computed Tomography RAD CT Specimen (Source) Anatomical Location Collection Method / Collectio n Time Received Time / Laterality Volume Impressions 03/02/2018 10:55 PM BINDER COVERSTITCH IMPRESSION: Diffuse cerebral volume loss and cerebral white matter changes consistent with chronic small ve ssel ischemic disease. No evidence for acute intracranial patholog y. Radiation dose for this scan was reduced using automated exposure control, adjustment of the mA and/or kV according to patient size, or iterative reconstruction technique J LUIS LOPEZ MD Narrative 03/02/2018 10:[address] OF THE HEAD WITHOUT CONTRAST 03/02/2018 5:49 PM COMPARISON: None. HISTORY: Code stroke, left side weakness . TECHNIQUE: [address] images of the head were acquired without IV contrast material. FINDINGS: There is moderate diffuse cere bral volume loss. There are subtle patchy areas of decreased density in the cerebral white matter bilaterally that are consistent with seq uela of chronic small vessel ischemic disease. The ventricles and basal cisterns are wi thin normal limits in configuration given the degree of cerebr al volume loss. ??There is no midline shift. There are no extra-axial fluid collections. No intracranial hemorrhage, mass or rece nt infarct. The visualized paranasal sinuses are wel l-aerated. There is no mastoiditis. There are no fractures of t he visualized bones. Procedure Note J Luis Lopez MD - 03/02/2018Forma tting of this note might be different from the original. CT OF THE HEAD WITHOUT CONTRAST 03/02/20 5:49 PM COMPARISON: None. HISTORY: Code stroke, left side weakness . TECHNIQUE: [address] images of the head were acquired without IV contrast material. FINDINGS: There is moderate diffuse cere bral volume loss. There are subtle patchy areas of decreased density in the cerebral white matter bilaterally that are consistent with seq uela of chronic small vessel ischemic disease. The ventricles and basal cisterns are wi thin normal limits in configuration given the degree of cerebr al volume loss. There is no midline shift. There are no extra-axial fluid collections. No intracranial hemorrhage, mass or rece nt infarct. The visualized paranasal sinuses are wel l-aerated. There is no mastoiditis. There are no fractures of t he visualized bones. IMPRESSION: Diffuse cerebral volume loss and cerebral white matter changes consistent with chronic small ve ssel ischemic disease. No evidence for acute intracranial patholog y. Radiation dose for this scan was reduced using automated exposure control, adjustment of the mA and/or kV according to patient size, or iterative reconstruction technique J LUIS LOPEZ MD Caesar Gonzalez MD IMG CT ORDERABLES Troponin I (03/02/2018 5:38 PM BINDER COVERSTITCH) athologist Signature Troponin I ES <0.015 0.000 - 03/02/2018 [place] 0.045 ug/L 6:09 PM [facility] Comment: The 99th percentile for upper reference range is 0.045 ug/L. ??Troponin values in the range of 0.045 - 0.120 ug/L may b e associated with risks of adverse clinical events. Specimen Anatomical Collection Method Collection Time Receive d Time (Source) Location / / Volume Laterality 03/02/2018 5:38 PM 8 5:42 BINDER COVERSTITCH PM B[facility]ER COVERSTITCH Caesar Gonzalez MD LAB - BLOOD ORDERABLES Performing Organization Address City/State/ZIP Code Phon e Number [place] [address] [address] [place] [address] [facility] [address] [phone] (ABNORMAL) Partial thromboplastin time (03/02/2018 5:38 PM BINDER COVERSTITCH) athologist Signature PTT 39 (H) 22 - 37 sec 03/02/2018 [facility] 5:57 PM [facility]3] Specimen Anatomical Collection Method Collection Time Receive d Time (Source) Location / / Volume Laterality 03/02/2018 5:38 PM 8 5:42 [facility]ER COVERSTITCH PM [facility]ER COVERSTITCH Caesar Gonzalez MD LAB - BLOOD ORDERABLES Performing Organization Address City/[facility]/ZIP Code Phon e Number M [facility] [address] [place], [place] [address] [place] [address] [address] [place], [place] [address] [phone] INR (03/02/2018 5:38 PM BINDER COVERSTITCH) P athologist Signature INR 0.97 0.86 - 1.14 03/02/2018 [facility] 5:57 PM [facility] Specimen Anatomical Collection Method Collection Time Receive d Time (Source) Location / / Volume Laterality 03/02/2018 5:38 PM 8 5:42 [facility]ER COVERSTITCH PM [facility]ER COVERSTITCH Caesar Gonzalez MD LAB - BLOOD ORDERABLES Performing Organization Address [facility] Phon e Number [facility] [address], [place] [address] [place] [address] [address] [place], [place] [address] [phone] (ABNORMAL) CBC with platelets differential (03/02/2018 5:38 PM BINDER COVERSTITCH) Patholo gist Method Time Signature WBC 11.2 (H) 4.0 - 03/02/2018 [facility] 11.0 5:47 PM [facility] 10e9/L [facility] RBC Count 5.16 4.4 - 5.9 03/02/2018 [facility] 10e12/L 5:47 PM [facility] Hemoglobin 15.3 13.3 - 03/02/2018 [facility] 17.7 g/dL 5:47 PM [facility] Hematocrit 46.1 40.0 - 03/02/2018 [facility] 53.0 % 5:47 PM [facility] MCV 89 78 - 100 03/02/2018 [facility] fl 5:47 PM [facility] MCH 29.7 26.5 - 03/02/2018 [facility] 33.0 pg 5:47 PM [facility] MCHC 33.2 31.5 - 03/02/2018 [facility] 36.5 g/dL 5:47 PM [facility] RDW 13.2 10.0 - 03/02/2018 [facility] 15.0 % 5:47 PM [facility] Platelet Count 230 150 - 450 03/02/2018 [facility] 10e9/L 5:47 PM [facility] Diff Method Automated 03/02/2018 [facility] Method 5:47 PM [facility] % Neutrophils 55.9 % 03/02/2018 [facility] 5:47 PM [facility] % Lymphocytes 31.2 % 03/02/2018 [facility] 5:47 PM [facility] % Monocytes 9.0 % 03/02/2018 [facility] 5:47 PM [facility] % Eosinophils 2.8 % 03/02/2018 [facility] 5:47 PM [facility] % Basophils 0.7 % 03/02/2018 [facility] 5:47 PM [facility] % Immature 0.4 % 03/02/2018 [facility] Granulocytes 5:47 PM [facility] Nucleated RBCs 0 0 /100 03/02/2018 [facility] 5:47 PM [facility] Absolute 6.2 1.6 - 8.3 03/02/2018 [facility] Neutrophil 10e9/L 5:47 PM [facility] Absolute 3.5 0.8 - 5.3 03/02/2018 [facility] Lymphocytes 10e9/L 5:47 PM [facility] Absolute 1.0 0.0 - 1.3 03/02/2018 [facility] Monocytes 10e9/L 5:47 PM [facility] Absolute 0.3 0.0 - 0.7 03/02/2018 [facility] Eosinophils 10e9/L 5:47 PM [facility] Absolute 0.1 0.0 - 0.2 03/02/2018 [facility] Basophils 10e9/L 5:47 PM [facility] Abs Immature 0.1 0 - 0.4 03/02/2018 [facility] Granulocytes 10e9/L 5:47 PM [facility] Absolute 0.0 03/02/2018 [facility] Nucleated RBC 5:47 PM [facility] Specimen Anatomical Collection Method Collection Time Receive d Time (Source) Location / / Volume Laterality 03/02/2018 5:38 PM 8 5:42 B[facility]ER COVERSTITCH PM [facility]ER COVERSTITCH Caesar Gonzalez MD LAB - BLOOD ORDERABLES Performing Organization Address City/State/ZIP Code Phon e Number [place] [address] [address], [place] [address] [facility] [address] [place], [place] [address], [facility] [phone] (ABNORMAL) Basic metabolic panel (03/02/2018 5:38 PM BINDER COVERSTITCH) P athologist Signature Sodium 141 133 - 144 03/02/2018 [facility] mmol/L 6:09 PM [facility] Potassium 3.5 3.4 - 5.3 03/02/2018 [facility] mmol/L 6:09 PM [facility] Chloride 107 94 - 109 03/02/2018 [facility] mmol/L 6:09 PM [facility] Carbon Dioxide 26 20 - 32 03/02/2018 [place] mmol/L 6:09 PM [facility] Anion Gap 8 3 - 14 03/02/2018 [place] mmol/L 6:09 PM [facility] Glucose 170 (H) 70 - 99 03/02/2018 [place] mg/dL 6:09 PM [facility] Urea Nitrogen 13 7 - 30 03/02/2018 [place] mg/dL 6:09 PM [facility] Creatinine 0.85 0.66 - 03/02/2018 [place] 1.25 mg/dL 6:09 PM [facility] GFR Estimate 90 >60 03/02/2018 [place] mL/min/1.7 6:[address] Comment: Non GFR Calc GFR Estimate If >90 >60 mL/min/1.7m2 03/02/2018 6:09 P M [facility] Comment: GFR Calc Calcium 8.5 8.5 - 10.1 mg/dL 03/02/2018 6:09 PM [facility] Specimen Anatomical Collection Method Collection Time Receive d Time (Source) Location / / Volume Laterality 03/02/2018 5:38 PM 8 5:42 BINDER COVERSTITCH PM [facility] Caesar Gonzalez MD LAB - BLOOD ORDERABLES Performing Organization Address City/State/ZIP Code Phon e Number [place] [address] [address] [place] [place] [address] [facility] [address] [place], [place] [address], [facility] [phone] (ABNORMAL) Glucose by meter (03/02/2018 5:37 PM BINDER COVERSTITCH) P athologist Signature Glucose 162 (H) 70 - 99 03/02/2018 [facility] mg/dL 6:49 PM B[facility]ER COVERSTITCH TEST, GLUCOSE Specimen Anatomical Collection Method Collection Time Receive d Time (Source) Location / / Volume Laterality 03/02/2018 5:37 PM 8 6:49 [facility]INDER COVERSTITCH PM [facility]ER COVERSTITCH Caesar Gonzalez MD [facility] POCT Performing Organization Address City/State/ZIP Code Phon e Number [facility] POINT OF CARE TEST, GLUCOSE POINT OF CARE TEST, GLUCOSE documented in this encounter Visit Diagnoses Diagnosis Cerebrovascular accident (CVA), unspecif ied mechanism (H) Left arm weakness Other musculoskeletal symptoms referable to limbs documented in this encounter Administered Medications Inactive Administered Medications - up to 3 most recent administrations Medication Order MAR Action Action Date Dose Rate Site 0.9% sodium chloride BOLUS New Bag 03/02/2018 5:45 PM [facility] C[facility]STITCH 80 mLs Intravenous, 100 mL, ONCE, On 03/02/18 at 1743, For 1 dose alteplase (ACTIVASE) bolus dose 9 mg Given 03/02/2018 6:30 PM [facility]ER COVERSTITCH 9 mg 9 mg (0.09 mg/kg ? 100 kg Order-specific weight), Intravenous, Administer over 1 Minutes, ONCE, On 03/02/18 at 1816, For 1 dose, Bolus dose + Infusion dose should not exceed a total of 90mg. alteplase (ACTIVASE) infusion 81 mg Given 03/02/2018 6:30 PM B[facility]ER COVERSTITCH 81 mg 81 mg (0.81 mg/kg ? 100 kg Order-specific weight), Intravenous, ONCE, On 03/02/18 at 1816, For 1 dose, FIRST 24 HRS POST-ALTEPLASE INFUSION From start of Alteplase infusion: Vital signs and Neuro checks Q15 mins x 2 hours, then Q30 mins x 6 hours, then Q1H x 16 hours, MUST be documented. Notify Provider if any signs of bleeding, neurological deterioration, severe headache, severe elevation of blood pressure, or exhibits nausea and vomiting. Do not change IV tubing or use filter in alteplase (ACTIVASE) line during infusion - medication may adhere to tubing. Bolus dose + Infusion dose should not exceed a total of 90 mg. iopamidol (ISOVUE-370) solution 500 mL Given 03/02/2018 5:45 PM BINDER COVERSTITCH 120 mLs 500 mL, Intravenous, ONCE, On 03/02/18 at 1743, For 1 dose documented in this encounter Active and Recently Administered Medications Times are shown in BINDER COVERSTITCH. Scheduled Medication Order 02/28/2018 03/01/2018 03/02/2018 0.9% sodium chloride BOLUS (COMPLETED) 1744 (New Bag - Provider: Mica Appiah - Comment: bulk)175 (Stopped - Provider: Mica Appiah) Intravenous, 100 mL, ONCE, On 03/02/18 at 1743, For 1 dose alteplase (ACTIVASE) bolus dose 9 mg (COMPLETED) 1829 (Given - Provider: Disha Anderson RN) 9 mg (0.09 mg/kg ? 100 kg Order-specific weight), Intravenous, Administer over 1 Minutes, ONCE, On 03/02/18 at 1816, For 1 dose, Bolus dose + Infusion dose should not exceed a total of 90mg. alteplase (ACTIVASE) infusion 81 mg (COMPLETED) 1829 (Given - Provider: Disha Anderson RN) 81 mg (0.81 mg/kg ? 100 kg Order-specific weight), Intravenous, ONCE, On 03/02/18 at 1816, For 1 dose, FIRST 24 HRS POST-ALTEPLASE INFUSION From start of Alteplase infusion: Vital signs and Neuro c hecks Q15 mins x 2 hours, then Q30 mins x 6 hours, then Q1H x 16 hours, MUST be documented. Notify Provider if any signs of bleeding, neurological deterioration, severe headache, severe elevation of blo od pressure, or exhibits nausea and vomi ting. Do not change IV tubing or use filter in alteplase (ACTIVASE) line during infusion - medication may adhere to tubing. Bolus dose + Infusion dose should not exceed a total of 90 mg. 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
--- OUTSIDE RECORDS SUMMARY | 2022-01-20 08:11 | XMS_ITS | Encounter Summary ---
:1950 Author Organization [place] Address [facility] [place] [address] Care Team Providers Name Role Phone Clinic, [facility] Primary Care Provide r Reason for Referral CV Testing - Closed Specialty Diagnoses / Procedures Referred By Contact Refer red To Contact Cardiology Diagnoses Cerebrovascular accident (CVA) due to embolism of right middle cerebral artery (H) Gabrielle Hernandez MD Zz Cardiology Img Procedures Cardiac Event Monitor - Peds/Adult [facility] [address] [facility] [address] [place] [id number] [place], [place] [address] Referral ID Status Reason Start Date Expiration Date Visits Requ ested Visits Authorized [id number] Closed 03/05/2018 03/05/2019 1 1 PHONE SUPERVISOR Reason for Visit Auth/Cert Specialty Diagnoses / Procedures Referred By Contact Refer red To Contact Intensive Care Diagnoses Stroke Stroke (cerebrum) (H) Intensive Care [address] [phone] Phone: Referral ID Status Reason Start Date Expiration Date Visits Requ ested Visits Authorized [id number] 03/03/2018 03/03/2019 1 1 Encounter Details Date Type Department Care Team Description [facility] [address] [place] [address] Cerebrovascular accident (CVA) due to em bolism of right middle cerebral artery (H) (Primary Dx); 03/08/2018 Encounter Uzma Dan, DO [address] [place], [place] [id number] LVH (left ventricular hypertrophy); Neuroscience Unit Benign essential hypertensio n [address] [place] [id number] Social History Tobacco Use Types Packs/Day Years Used Date Never Smoker Alcohol Use Standard Drinks/Week Comments No 0 (1 standard drink = 0.6 oz pure alcoho l) Sex Assigned at Date Recorded Not on file documented as of this encounter Last Filed Vital Signs Vital Sign Reading Time Taken Comments Blood Pressure 153/79 03/08/2018 9:00 AM TELEPHONE SUPERVISOR Pulse 62 03/07/2018 11:53 PM TELEPHONE SUPERVISOR Temperature 37.2 ??C (98.9 ??F) 03/08/2018 7:35 AM TELEPHONE SUPERVISOR Respiratory Rate 16 03/08/2018 7:35 AM TELEPHONE SUPERVISOR Oxygen Saturation 93% 03/08/2018 7:35 AM TELEPHONE SUPERVISOR Inhaled Oxygen Concentration - - Weight 112.5 kg (248 lb) 03/06/2018 1:00 AM TELEPHONE SUPERVISOR Height - - Body Mass Index 36.62 06/11/2016 9:10 AM TELEPHONE SUPERVISOR documented in this encounter Discharge Summaries Philip Woodall MD - 03/08/2018 10:14 AM CST [facility] Discharge Summary Nicolette Dickson Age: [age] year old Date of : 1950 Date of Admission: 03/02/2018 Date of Discharge:: 03/08/2018 Admitting Physician: Keira Gaytan MD Discharge Physician: Philip Woodall MD Primary Physician: Clinic, [facility] Medical Transferring Facility: [facility] Home clinic: [facility] Medical Admission Diagnoses: Stroke Stroke (cerebrum) (H) HTN CARLOS L shoulder OA Discharge Diagnosis: Principle diagnosis: R cerebral artery infarction, acute Secondary diagnoses: Patient Active Problem List Diagnosis Date Noted ??? Stroke (cerebrum) (H) 03/02/2018 Priority: Medium ??? 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/2016 Priority: Medium Procedures: tPA administration Allergies: No Known Allergies Medications Prior to Admission: Prescriptions Prior to Admission Medication Sig Dispense Refill Last Dose ??? amLODIPine (NORVASC) 10 MG tablet Take 10 mg by mouth daily 03/02/2018 at am ??? aspirin 81 MG tablet Take 81 mg by mouth every evening 03/01/2018 at pm ??? atorvastatin (LIPITOR) 20 MG tablet Take 20 mg by mouth every evening 03/01/2018 at pm ??? magnesium oxide (MAG-OX) 400 MG tablet Take 400 mg by mouth every evening 03/01/2018 at pm ??? multivitamin, therapeutic (THERA-VIT) TABS Take 1 tablet by mouth daily 03/01 or 03/02 ??? Probiotic Product (PROBIOTIC DAILY PO) Take 1 tablet by mouth every evening 03/01/2018 at pm Discharge Medications: Current Discharge Medication List START taking these medications Details hydrochlorothiazide (MICROZIDE) 12.5 MG capsule Take 1 capsule (12.5 mg) by mouth daily Qty: 30 capsule, Refills: 0 Associated Diagnoses: LVH (left ventricular hypertrophy) CONTINUE these medications which have NOT CHANGED Details amLODIPine (NORVASC) 10 MG tablet Take 10 mg by mouth daily aspirin 81 MG tablet Take 81 mg by mouth every evening atorvastatin (LIPITOR) 20 MG tablet Take 20 mg by mouth every evening magnesium oxide (MAG-OX) 400 MG tablet Take 400 mg by mouth every evening multivitamin, therapeutic (THERA-VIT) TABS Take 1 tablet by mouth daily Probiotic Product (PROBIOTIC DAILY PO) Take 1 tablet by mouth every evening Consultations: Consultation during this admission received from neurology Brief History of Presenting Illness: See previous admission history and physical written by Dr Gaytan: Patient reports that he was in his usual state of health the day of admission when he laid down fora nap at about 3 PM. He woke up at around 3:45 PM, and noted that he was able to lift his left arm but is weaker than usual and he did not have control over his hand. He spoke to his who noted that his speech seemed to be slurred at that time. He subsequently presented to the [facility] emergency department for further evaluation. There a code stroke was called and he was evaluated remotelyby neurology. CT head showed findings consistent with chronic small vessel ischemic disease. CT brain showed a small perfusion defect at the posterolateral aspect of the right frontal lobe consistent with possible ischemia. CTA head/neck showed patent vessels. After discussion with family, the decision was made to receive TPA. He had a slight facial droop receiving TPA which seemed to be worse after receiving the medication and therefore he underwent repeat head CT prior to transfer which was negative for hemorrhage. He reports presently that his left arm feels perhaps slightly stronger since symptom onset although he continues to have a facial droop and slurred speech. He denies any prior historyof stroke or mini stroke. He denies any known history of atrial fibrillation. He is a non-smoker. Hospital Course: 1. R MCA infarction, acute: As above, patient presented with slurred speech and decreased motor function and sensation in his LUE. L facial droop was also noted. A stroke code was called upon presentation and head CT showed small perfusion defect in posterolateral R frontal lobe concerning for acute ischemia. CTA of head and neck vessels was unremarkable. Given clinical context, after discussion withpatient and family tPA was given; initially L facial droop seemed to worsen after tPA administrationand repeat head CT was done which showed no hemorrhagic transformation. [facility] for post- tPA management. During his hospitalization at [facility], patient improved subjectively and objectively. Lab workup was unremarkable. Neurology team was consulted and followed patient during his hospital stay. An MRI confirmed multiple areas of infarction in the R MCA. TTE with bubble study showed no intraseptal commun ication. No atrial fibrillation in patient's hx nor seen on telemetry. Patient was started on ASA 325 mg every day as well as atorvastatin. PT, OT, and PROCEDURE TECH service saw patient during his hospitalization as well. Per their assessments, patient will be discharged today to acute rehabilitation center forfurther therapy (will need PT, OT, and PROCEDURE TECH assessments). He should be up with assist at first until activity level can be advanced. He is currently tolerating a Dysphagia 3 diet with thin liquids. Finally, patient will wear a MCOT patch to monitor cardiac activity for 30 days after discharge. I discussed the care plan with the patient and his family; they are amenable. Patient will follow up in 4 weeks in Neurology Clinic for further assessment. 2. HTN: Goal BP long-term is <140/90 per Neurology service. Amlodipine 10 mg and hydrochlorothiazide 12.5 mg every day were both prescribed at time of discharge. BP is still slightly above goal, buthydrochlorothiazide was just started yesterday so we may still see increased benefit. Recommend BP check and BMP in 2 days to monitor electrolytes and renal function after starting thiazide. If BP still higher than goal, could increase hydrochlorothiazide to 25 mg every day and/or consider adding YOLANDE inhibitor. 3. L shoulder OA: Chronic issue, patient feels pain daily at baseline. Has received intra-articular cortisone injections in the past. Continue acetaminophen PRN, supportive cares (ice), PT. Pending Tests at Discharge: None Discharge Instructions and Follow-Up: Discharge diet: Dysphagia 3 with thin liquids Discharge activity: Up with mechanical assist, RN should observe as well at first Discharge follow-up: Follow up with Neurology clinic in 4 weeks Discharge Disposition: Discharged to rehabilitation facility Attestation: I have reviewed today's vital signs, notes, medications, labs and imaging. Amount of time performed on this discharge: 45 minutes. Philip Woodall MD PHONE SUPERVISOR documented in this encounter Discharge Instructions Discharge InstructionsMeño Cabral RN - 03/08/2018 10:36 AM CST Your risk factors for stroke or TIA (transient ischemic attack): Your Risk Factors Your Results Normal Ranges High blood pressure BP Readings from Last 1 Encounters: 03/08/18 153/79 Less than 120/80 Cholesterol Total Lab Results Component Value Date CHOL 137 03/03/2018 Less than 150 Triglycerides Lab Results Component Value Date TRIG 100 03/03/2018 Less than 150 LDL Lab Results Component Value Date LDL 59 03/03/2018 Less than 70 HDL Lab Results Component Value Date HDL 58 03/03/2018 Greater than 40 (men) Greater than 50 (women) Diabetes Recent Labs Lab 03/05/18 0851 GLC 125* Fasting blood glucose 70-100 Smoking/tobacco use Quit smoking and tobacco Overweight Lose 1-2 pounds a week Lack of exercise 30 minutes moderate activity each day Other risk factors include carotid (neck) artery disease, atrial fibrillation and stress. You may beon new medicine to treat high blood pressure, cholesterol, diabetes or atrial fibrillation. Understanding Stroke Booklet given to patient. Please refer to booklet for further information. Stroke warning signs and symptoms - CALL 911 right away for: - Sudden numbness or weakness in the face, arm or leg (often on one side of the body). - Sudden confusion or trouble understanding what is going on. - Sudden blurred or decreased vision in one or both eyes. - Sudden trouble speaking, loss of balance, dizziness or problems with coordination. - Sudden, severe headache for no reason. - Fainting or seizures. - Symptoms may go away then come back suddenly. PHONE SUPERVISOR documented in this encounter Medications at Time of Discharge Medication Sig Dispensed Refills Start Date End Date amLODIPine (NORVASC) 10 MG Take 10 mg by 0 tablet mouth daily atorvastatin (LIPITOR) 20 MG Take 20 mg by 0 tablet mouth every evening magnesium oxide (MAG-OX) 400 Take 400 mg by 0 MG tablet mouth every evening multivitamin, therapeutic Take 1 tablet by 0 (THERA-VIT) TABS mouth daily Probiotic Product (PROBIOTIC Take 1 tablet by 0 DAILY PO) mouth every evening acetaminophen (TYLENOL) 325 Take 2 tablets 100 tablet 0 02/14 MG tabletIndications: (650 mg) by Cerebrovascular accident mouth every 4 (CVA) due to bilateral hours as needed embolism of carotid arteries for mild pain or (H) fever aspirin (ASA) 325 MG EC Take 1 tablet 30 tablet 0 8 tabletIndications: (325 mg) by Cerebrovascular accident mouth daily (CVA) due to bilateral embolism of carotid arteries (H) hydrochlorothiazide Take 1 capsule 30 capsule 0 03/11/2018 (MICROZIDE) 12.5 MG (12.5 mg) by capsuleIndications: mouth daily 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 Seems patient's neuro exam are unchanged to improved; awaiting rehab bed. Continue current plan as outlined in neurology note from 03/05. Thanks. Call with any questions Hailee Peralta PA-C Neurology 03/07/2018 3:16 PM Pager: [phone] PHONE SUPERVISOR Ashleigh Ward MD - 03/07/2018 1:[address] [facility] Hospitalist Progress Note Assessment & Plan Nicolette Dickson is a 67 year old male who was admitted on 03/02/2018. Nicolette Dickson is a 67 year-old male with past medical history of obstructive sleep apnea, hyperlipidemia and hypertension who presents with acute onset left arm weakness, slurred speech, facial droop found to have acute ischemic stroke status post TPA. ??Admitted on 03/02/2018 as transfer from [facility] for post-TPA cares. ? Acute ischemic stroke, right frontal lobe, s/p tPA Hyperlipidemia Presented with acute onset left arm weakness, slurred speech, facial droop. ??CT head negative, CT perfusion study with small area and right frontal lobe suggestive of ischemia. ??CTA??head and neck nosignificant occlusions or stenoses. ??No known history of atrial fibrillation. Received TPA at 1830 on 03/02. Neuro changes later that night with facial droop, repeat CT at 2300 did not show any change. MRI showed evidence of multiple infarcts in right middle cerebral artery distribution. Echocardiogram with bubble study negative. Neurology following. Neurologic status is stable. - Blood pressure goal less than 140/90, continue??10mg amlodipine. Will add hydrochlorothiazide 12.5mg po daily today 03/07 - Speech recommends dysphagia diet 2 - PT/OT evaluated, recommending ARU and family in agreement - Continue full dose aspirin and Atorvastatin 20mg daily - MCOT patch for 30 day cardiac monitoring if nothing seen on telemetry - Follow up 4 weeks from discharge with local neurologist - Discharge to ARU tomorrow ? Hypertension - Chronic, evidence of left ventricular hypertrophy (mild) on echocardiogram (?how well his BP was controlled as outpatient) - Prior to admission on amlodipine 10 mg daily, resumed, BPs hovering around 140s -gradually lower blood pressure, will add hydrochlorothiazide 12.5 mg po qd ? Obstructive sleep apnea Compliant with CPAP - Continue CPAP with home settings ? Shoulder pain, history arthritis (left) Chronic. Pain exacerbated by weakness in LUE and his increased use of right. Tylenol helps to dull the pain for now. He has gotten injections in the past in the shoulder which have helped. Avoid opioids for now, encouraged exercise of left shoulder to help with pain. ? DVT Prophylaxis:??Pneumatic Compression Devices Code Status:??Full Code Expected discharge: Saturday ARU ?? # Pain Assessment: Current Pain Score 03/07/2018 Patient currently in pain? denies Pain score (0-10) 0 Pain location - Pain descriptors - CPOT pain score - Text Page (7am - 6pm) Ashleigh Ward MD Interval History No new problems -Data reviewed today: I reviewed all new labs and imaging results over the last 24 hours. I personally reviewed none Physical Exam Temp: 98.2 ??F (36.8 ??C) Temp src: Oral BP: 149/76 Heart Rate: 78 Resp: 18 SpO2: 95 % O2 Device: None (Room air) Vitals: 03/04/18 0500 03/05/18 0611 03/06/18 0100 Weight: 112.2 kg (247 lb 5.7 oz) 110.8 kg (244 lb 3.2 oz) 112.5 kg (248 lb) Vital Signs with Ranges Temp: [98.1 ??F (36.7 ??C)-98.6 ??F (37 ??C)] 98.2 ??F (36.8 ??C) Heart Rate: [62-78] 78 Resp: [16-18] 18 BP: (132-149)/(67-80) 149/76 SpO2: [92 %-96 %] 95 % I/O last 3 completed shifts: In: 480 [P.O.:480] Out: - Constitutional: alert Respiratory: clear to auscultation, no wheezing or rhonchi Cardiovascular: regular rate and rhythm without murmer or rub GI:positive bowel sounds, non-tender Skin/Integumen: no rashes Other: left arm weakness Medications ??? - MEDICATION INSTRUCTIONS - ??? - MEDICATION INSTRUCTIONS - ??? - MEDICATION INSTRUCTIONS - ??? - MEDICATION INSTRUCTIONS - ??? amLODIPine 10 mg Oral Daily ??? aspirin 325 mg Oral Daily ??? atorvastatin 20 mg Oral QPM ??? sodium chloride 0.9 % 100 mL Intravenous Once ??? iopamidol 70 mL Intravenous Once ??? sodium chloride (PF) 10 mL Intracatheter Q8H Data Recent Labs Lab 03/05/18 0851 03/04/18 0530 03/03/18 0550 03/02/18 2340 03/02/18 1738 WBC 9.2 11.5* -- -- 11.2* HGB 15.3 14.8 -- -- 15.3 MCV 86 87 -- -- 89 PLT 210 210 -- -- 230 INR -- -- -- -- 0.97 NA 138 140 143 -- 141 POTASSIUM 3.5 3.5 3.6 -- 3.5 CHLORIDE 104 106 109 -- 107 CO2 26 25 28 -- 26 BUN 13 8 10 -- 13 CR 0.83 0.75 0.80 -- 0.85 ANIONGAP 8 9 6 -- 8 DEANDRA 8.9 8.8 8.6 -- 8.5 GLC 125* 131* 135* -- 170* ALBUMIN -- -- 3.5 -- -- PROTTOTAL -- -- 7.1 -- -- BILITOTAL -- -- 0.7 -- -- ALKPHOS -- -- 132 -- -- ALT -- -- 30 -- -- AST -- -- 19 -- -- TROPI -- -- <0.015 <0.015 <0.015 No results found for this or any previous visit (from the past 24 hour(s)). PHONE SUPERVISOR Aida Ivory LSW - 03/07/2018 11:30 AM CST D: Pt accepted for admission at [facility]. I: SW spoke with [facility] liaison regarding admission and they do not have an available bed today. Mayi states that pt accepted for admission tomorrow and that they would plan on an 11:00 am discharge. CLAUDIA updated CTRN,RN,TELECOM ASSISTANT,BB pt and pt's family. Pt's family will transport pt to ARU at 11:00am. Maps given to pt's and daughter with instructions. A: Pt anxious to begin therapy and return home. P: Discharge to ARU tomorrow at 11:00 am via family. MICHELE Villanueva [facility] Care Transitions PHONE SUPERVISOR Ashleigh Ward MD - 03/06/2018 1:[address] [facility] Hospitalist Progress Note Assessment & Plan Nicolette Dickson is a 67 year old male who was admitted on 03/02/2018. Nicolette Dickson is a 67 year-old male with past medical history of obstructive sleep apnea, hyperlipidemia and hypertension who presents with acute onset left arm weakness, slurred speech, facial droop found to have acute ischemic stroke status post TPA. ??Admitted on 03/02/2018 as transfer from [facility] for post-TPA cares. ?? Acute ischemic stroke, right frontal lobe, s/p tPA Hyperlipidemia Presented with acute onset left arm weakness, slurred speech, facial droop. ??CT head negative, CT perfusion study with small area and right frontal lobe suggestive of ischemia. ??CTA??head and neck nosignificant occlusions or stenoses. ??No known history of atrial fibrillation. Received TPA at 1830 on 03/02. Neuro changes later that night with facial droop, repeat CT at 2300 did not show any change. MRI showed evidence of multiple infarcts in right middle cerebral artery distribution. Echocardiogram with bubble study negative. Neurology following. Neurologic status is stable. - Blood pressure goal less than 140/90, continue 10mg amlodipine. Consider low dose second agent if BP >140/90.??As needed hydralazine IV available - Speech recommends dysphagia diet 2 - PT/OT evaluated, recommending ARU and family in agreement - Continue full dose aspirin and Atorvastatin 20mg daily - MCOT patch for 30 day cardiac monitoring if nothing seen on telemetry - Follow up 4 weeks from discharge with local neurologist - Discharge pending ARU placement/ bed availability ? Hypertension - Chronic, evidence of left ventricular hypertrophy (mild) on echocardiogram (?how well his BP was controlled as outpatient) - Prior to admission on amlodipine 10 mg daily, resumed, BPs hovering around 140s -gradually lower blood pressure, may need second agent ? Obstructive sleep apnea Compliant with CPAP - Continue CPAP with home settings ?? Shoulder pain, history arthritis (left) Chronic. Pain exacerbated by weakness in LUE and his increased use of right. Tylenol helps to dull the pain for now. He has gotten injections in the past in the shoulder which have helped. Avoid opioids for now, encouraged exercise of left shoulder to help with pain. ?? DVT Prophylaxis: Pneumatic Compression Devices Code Status: Full Code Expected discharge: Saturday pending ARU bed availability # Pain Assessment: Current Pain Score 03/06/2018 Patient currently in pain? yes Pain score (0-10) 4 Pain location Shoulder Pain descriptors Aching CPOT pain score - chronic left shoulder pain Text Page (7am - 6pm) Ashleigh Ward MD Interval History Doing ok -Data reviewed today: I reviewed all new labs and imaging results over the last 24 hours. I personally reviewed no images or EKG's today. Physical Exam Temp: 98 ??F (36.7 ??C) Temp src: Oral BP: 140/75 Heart Rate: 64 Resp: 16 SpO2: 95 % O2 Device: None(Room air) Vitals: 03/04/18 0500 03/05/18 0611 03/06/18 0100 Weight: 112.2 kg (247 lb 5.7 oz) 110.8 kg (244 lb 3.2 oz) 112.5 kg (248 lb) Vital Signs with Ranges Temp: [98 ??F (36.7 ??C)-99 ??F (37.2 ??C)] 98 ??F (36.7 ??C) Heart Rate: [63-76] 64 Resp: [16-18] 16 BP: (123-164)/(68-87) 140/75 SpO2: [93 %-99 %] 95 % I/O last 3 completed shifts: In: 640 [P.O.:640] Out: - Constitutional: alert Respiratory: clear to auscultation, no wheezing or rhonchi Cardiovascular: regular rate and rhythm without murmer or rub GI:positive bowel sounds, non-tender Skin/Integumen: no rashes Other: Medications ??? - MEDICATION INSTRUCTIONS - ??? - MEDICATION INSTRUCTIONS - ??? - MEDICATION INSTRUCTIONS - ??? - MEDICATION INSTRUCTIONS - ??? amLODIPine 10 mg Oral Daily ??? aspirin 325 mg Oral Daily ??? atorvastatin 20 mg Oral QPM ??? sodium chloride 0.9 % 100 mL Intravenous Once ??? iopamidol 70 mL Intravenous Once ??? sodium chloride (PF) 10 mL Intracatheter Q8H Data Recent Labs Lab 03/05/18 0851 03/04/18 0530 03/03/18 0550 03/02/18 2340 03/02/18 1738 WBC 9.2 11.5* -- -- 11.2* HGB 15.3 14.8 -- -- 15.3 MCV 86 87 -- -- 89 PLT 210 210 -- -- 230 INR -- -- -- -- 0.97 NA 138 140 143 -- 141 POTASSIUM 3.5 3.5 3.6 -- 3.5 CHLORIDE 104 106 109 -- 107 CO2 26 25 28 -- 26 BUN 13 8 10 -- 13 CR 0.83 0.75 0.80 -- 0.85 ANIONGAP 8 9 6 -- 8 DEANDRA 8.9 8.8 8.6 -- 8.5 GLC 125* 131* 135* -- 170* ALBUMIN -- -- 3.5 -- -- PROTTOTAL -- -- 7.1 -- -- BILITOTAL -- -- 0.7 -- -- ALKPHOS -- -- 132 -- -- ALT -- -- 30 -- -- AST -- -- 19 -- -- TROPI -- -- <0.015 <0.015 <0.015 No results found for this or any previous visit (from the past 24 hour(s)). Juan Morales RT - 03/05/2018 11:58 PM CST Pt wearing home cpap unit for the night. RT available if need be. Juan Sargent, CUT OFF SAW TENDER METAL-ACCS PHONE SUPERVISOR Hailee Peralta PA-C - 03/05/2018 2:12 PM CST VASCULAR NEUROLOGY PROGRESS NOTE Admission Summary: Nicolette Dickson is a 67 year old man admitted for stroke. He presented to the ED at [facility] at 5:30 pm on 03/02 with complaints of left arm weakness and numbness as well as slurred speech . He was seen byDr. Hernandez via telestroke consultation and found to have NIHSS of 3. He was given TPA at 18:30 on03/03. He then had some increased symptoms after TPA started - left facial droop. Repeat CT head wasdone which showed no bleed. Last 24 hours: He reports he is feeling well other than left shoulder pain. He has had no change in his strength, speech or vision. Medications: Current Facility-Administered Medications Medication Dose Route Frequency ??? amLODIPine 10 mg Oral Daily ??? aspirin 325 mg Oral Daily ??? atorvastatin 20 mg Oral QPM ??? sodium chloride 0.9 % 100 mL Intravenous Once ??? iopamidol 70 mL Intravenous Once ??? sodium chloride (PF) 10 mL Intracatheter Q8H Current Facility-Administered Medications Medication Last Rate ??? - MEDICATION INSTRUCTIONS - ??? - MEDICATION INSTRUCTIONS - ??? - MEDICATION INSTRUCTIONS - ??? - MEDICATION INSTRUCTIONS - Current Facility-Administered Medications Medication Dose Route Frequency ??? acetaminophen 650 mg Rectal Q4H PRN ??? acetaminophen 650 mg Oral Q4H PRN ??? bisacodyl 10 mg Rectal Daily PRN ??? hydrALAZINE 10-20 mg Intravenous Q30 Min PRN ??? magnesium sulfate 4 g Intravenous Q4H PRN ??? - MEDICATION INSTRUCTIONS - Does not apply Continuous PRN ??? melatonin 3 mg Oral At Bedtime PRN ??? naloxone 0.1-0.4 mg Intravenous Q2 Min PRN ??? - MEDICATION INSTRUCTIONS - Does not apply Continuous PRN ??? ondansetron 4 mg Oral Q6H PRN Or ??? ondansetron 4 mg Intravenous Q6H PRN ??? - MEDICATION INSTRUCTIONS - Does not apply Continuous PRN ??? polyethylene glycol 17 g Oral Daily PRN ??? potassium chloride 20-40 mEq Oral or Feeding Tube Q2H PRN ??? potassium chloride with lidocaine 10 mEq Intravenous Q1H PRN ??? potassium chloride 10 mEq Intravenous Q1H PRN ??? potassium chloride 20 mEq Intravenous Q1H PRN ??? potassium chloride 20-40 mEq Oral Q2H PRN ??? prochlorperazine 5 mg Intravenous Q6H PRN Or ??? prochlorperazine 5 mg Oral Q6H PRN Or ??? prochlorperazine 12.5 mg Rectal Q12H PRN ??? senna-docusate 1 tablet Oral BID PRN Or ??? senna-docusate 2 tablet Oral BID PRN ??? - MEDICATION INSTRUCTIONS - Does not apply Continuous PRN Vital Signs: Temp: [97.2 ??F (36.2 ??C)-98.8 ??F (37.1 ??C)] 97.3 ??F (36.3 ??C) Pulse: [66-68] 66 Heart Rate: [60-76] 76 Resp: [16-18] 18 BP: (123-155)/(73-89) 136/76 SpO2: [92 %-94 %] 93 % General: Awake and alert, not in any acute distress, cooperative ?? Neuro: Mental status: Awake, alert, attentive, oriented x3. Speech is fluent, comprehension and repetition intact. Mild dysarthria. Good historian. Cranial nerves: Pupils equal and reactive. EOMI, unable to close L eye fully, Visual field testing shows left lower quadrantanopia, left central 7th nerve palsy, left face intact to light touch, hearing intact to normal conversation voice Motor: Increased tone LUE. Left shoulder abduction and elbow extension weakness at 4-/5. Left hand wrist extension and interossei 2/5. Finger flexion 4/5. Good thumb wiggle. Right arm and leg strength 5/5 Reflexes: deferred Sensory: intact to light touch in the legs and arms, but neglects the left leg and left arm intermittently with double simultaneous stimultaneous stimulation. Coordination: not tested today Gait: deferred Labs/Studies: CBC: Recent Labs Lab 03/05/18 0851 03/04/18 0530 03/02/18 1738 WBC 9.2 11.5* 11.2* RBC 5.16 4.88 5.16 HGB 15.3 14.8 15.3 HCT 44.4 42.5 46.1 PLT 210 210 230 Basic Metabolic Panel: Recent Labs Lab Test 03/05/18 0851 03/04/18 0530 03/03/18 0550 NA 138 140 143 POTASSIUM 3.5 3.5 3.6 CHLORIDE 104 106 109 CO2 26 25 28 BUN 13 8 10 CR 0.83 0.75 0.80 GLC 125* 131* 135* DEANDRA 8.9 8.8 8.6 Liver panel: Recent Labs Lab Test 03/03/18 0550 05/31/16 2041 01/09/14 0445 PROTTOTAL 7.1 7.1 7.7 ALBUMIN 3.5 3.6 3.7 BILITOTAL 0.7 0.4 0.8 ALKPHOS 132 104 107 AST 19 21 15 ALT 30 32 29 INR: Recent Labs Lab Test 03/02/18 1738 INR 0.97 Lipid Profile: Recent Labs Lab Test 03/03/18 0550 CHOL 137 HDL 58 LDL 59 TRIG 100 A1C: Recent Labs Lab Test 03/03/18 0550 A1C 6.1* Troponin I: Recent Labs Lab Test 03/03/18 0550 03/02/18 2340 03/02/18 1738 TROPI <0.015 <0.015 <0.015 Imaging: No new Impression: Ischemic Stroke due to embolic stroke of undetermined source (ESUS) HTN HLD L hemiparesis L visual field cut Dysarthria Recommendations: Acute Ischemic Stroke (post tPA on 03/02/18) Recommendations - Euthermia, Euglycemia - Continue aspirin 325 mg daily - Continue lipitor 20mg daily - Continue telemetry, and as outpatient 30 day cardiac monitoring if unvrealing - Bedside Glucose Monitoring - PT/OT/PROCEDURE TECH - Stroke Education - SBP goal <140/90 Patient Follow-up - 4 weeks with local neurologist. Stroke Education provided including signs/symptoms of a stroke and the importance of timely treatment. No further inpatient workup needed. Please contact the Stroke Service with any questions. Hailee Peralta PA-C Neurology 03/05/2018 2:17 PM Pager: [phone] PHONE SUPERVISOR Uzma Gray DO - 03/05/2018 12:[address] [facility] Hospitalist Progress Note Assessment & Plan Nicolette Dickson is a 67 year-old male with past medical history of obstructive sleep apnea, hyperlipidemia and hypertension who presents with acute onset left arm weakness, slurred speech, facial droop found to have acute ischemic stroke status post TPA. Admitted on 03/02/2018 as transfer from [facility] for post-TPA cares. Acute ischemic stroke, right frontal lobe, s/p tPA Hyperlipidemia Presented with acute onset left arm weakness, slurred speech, facial droop. CT head negative, CT perfusion study with small area and right frontal lobe suggestive of ischemia. CTA head and neck no significant occlusions or stenoses. No known history of atrial fibrillation. Received TPA at 1830 on 03/02. Neuro changes later that night with facial droop, repeat CT at 2300 did not show any change. MRI showed evidence of multiple infarcts in right middle cerebral artery distribution. Echocardiogram withbubble study negative. Neurology following. Neurologic status is stable. - Blood pressure goal less than 140/90, continue 10mg amlodipine. Consider low dose second agent if BP >140/90. As needed hydralazine IV available - Speech recommends dysphagia diet 2 - PT/OT evaluated, recommending ARU and family in agreement - Continue full dose aspirin and Atorvastatin 20mg daily - MCOT patch for 30 day cardiac monitoring if nothing seen on telemetry - Follow up 4 weeks from discharge with local neurologist - Discharge pending ARU placement/ bed availability ?? Hypertension - Chronic, evidence of left ventricular hypertrophy (mild) on echocardiogram (?how well his BP was controlled as outpatient) - Prior to admission on amlodipine 10 mg daily, resumed, BPs hovering around 140s, will trend throughout admission if continues to be elevated recommend initiation of low dose second agent. ?? Obstructive sleep apnea Compliant with CPAP - Continue CPAP with home settings Shoulder pain, history arthritis (left) Chronic. Pain exacerbated by weakness in LUE and his increased use of right. Tylenol helps to dull the pain for now. He has gotten injections in the past in the shoulder which have helped. Avoid opioids for now, encouraged exercise of left shoulder to help with pain. DVT Prophylaxis: Pneumatic Compression Devices Code Status: Full Code Expected discharge: Saturday pending ARU bed availability Uzma Gray, DO Text Page (7am - 6pm) Interval History Family and friends at bedside today. Working with physical and occupational therapy. Tolerating diet. Appetite returning. Humor also returning as he is making some jokes. Increase prn dose melatonin atnight for sleep aid. -Data reviewed today: I reviewed all new labs and imaging results over the last 24 hours. I personally reviewed no new EKG or imaging. Echocardiogram 03/03: Left ventricular systolic function is normal. The visual ejection fraction is estimated at 60-65%. There is mild concentric left ventricular hypertrophy. A contrast injection (Bubble Study) was performed that was negative for flow across the interatrial septum. There is no atrial shunt seen. Sinus rhythm was noted. Technically difficult, suboptimal study. Contrast was used without apparent complications. There is no comparison study available. Physical Exam Temp: 97.3 ??F (36.3 ??C) Temp src: Oral BP: 136/76 Pulse: 66 Heart Rate: 76 Resp: 18 SpO2: 93 % O2 Device: None (Room air) Vitals: 03/02/18 2200 03/04/18 0500 03/05/18 0611 Weight: 113.7 kg (250 lb 10.6 oz) 112.2 kg (247 lb 5.7 oz) 110.8 kg (244 lb 3.2 oz) Vital Signs with Ranges Temp: [97.2 ??F (36.2 ??C)-98.8 ??F (37.1 ??C)] 97.3 ??F (36.3 ??C) Pulse: [66-68] 66 Heart Rate: [60-76] 76 Resp: [16-18] 18 BP: (123-155)/(73-89) 136/76 SpO2: [92 %-94 %] 93 % I/O last 3 completed shifts: In: 600 [P.O.:600] Out: 200 [Urine:200] Constitutional: Awake, alert, cooperative, no apparent distress Respiratory: Clear to auscultation bilaterally, no crackles or wheezing Cardiovascular: Regular rate and rhythm, normal S1 and S2, and no murmur noted GI: Normal bowel sounds, soft, non-distended, non-tender Skin/Integumen: No rashes, no cyanosis, no edema Other: Oriented x3, right>left shoulder shrug. Some left neglect. Left field cut. Left arm slow, but able to raise above his head. Right arm 5/5 strength, left arm 4/5 strength. Tongue deviates slightly right. Speech clear. Left facial droop similar to 03/03. Medications ??? - MEDICATION INSTRUCTIONS - ??? - MEDICATION INSTRUCTIONS - ??? - MEDICATION INSTRUCTIONS - ??? - MEDICATION INSTRUCTIONS - ??? amLODIPine 10 mg Oral Daily ??? aspirin 325 mg Oral Daily ??? atorvastatin 20 mg Oral QPM ??? sodium chloride 0.9 % 100 mL Intravenous Once ??? iopamidol 70 mL Intravenous Once ??? sodium chloride (PF) 10 mL Intracatheter Q8H Data Recent Labs Lab 03/05/18 0851 03/04/18 0530 03/03/18 0550 03/02/18 2340 03/02/18 1738 WBC 9.2 11.5* -- -- 11.2* HGB 15.3 14.8 -- -- 15.3 MCV 86 87 -- -- 89 PLT 210 210 -- -- 230 INR -- -- -- -- 0.97 NA 138 140 143 -- 141 POTASSIUM 3.5 3.5 3.6 -- 3.5 CHLORIDE 104 106 109 -- 107 CO2 26 25 28 -- 26 BUN 13 8 10 -- 13 CR 0.83 0.75 0.80 -- 0.85 ANIONGAP 8 9 6 -- 8 DEANDRA 8.9 8.8 8.6 -- 8.5 GLC 125* 131* 135* -- 170* ALBUMIN -- -- 3.5 -- -- PROTTOTAL -- -- 7.1 -- -- BILITOTAL -- -- 0.7 -- -- ALKPHOS -- -- 132 -- -- ALT -- -- 30 -- -- AST -- -- 19 -- -- TROPI -- -- <0.015 <0.015 <0.015 No results found for this or any previous visit (from the past 24 hour(s)). Tariq Vilchis CM - 03/05/2018 11:39 AM CST Rehab Admissions: Met with the patient, , and daughter at the request of care transitions to discuss therapist recommendation for ARC upon discharge. The patient and family were educated in benefits of intensive therapies, close medical management, and rehabilitative nursing care while at [facility]. They were educated onlocation, insurance auth process, parking, and visiting hours at [facility]. They report they are in agreement with [facility] upon discharge. Thank you for the referral, we will continue to follow this patient for post acute placement. Determination of admission is based upon the patient's need for an intensive, interdisciplinary approach to rehabilitation, their ability to progress, their ability to tolerate intensive therapies, their need for daily physician supervision, their need for twenty four hour nursing assistance, and their ability and willingness to participate in such a program. Tariq Corral CM Processing Manager/[employer] [facility] 03/05/2018 11:39 AM Stanislav Oconnor RT - 03/04/2018 9:55 PM CST Patient was placed CPAP 8 30% with SpO2 96%. BBS clear and tolerated well. Patient later requested to turn off the CPAP unit and notified the RN. Will continue to monitor as ordered. Stanislav Montano RT 03/04/2018 Mayi Herrera, REJI - 03/04/2018 6:45 PM CST Pt a/ox4 with VSS and CMS with LUE intermittent numbness. Neuros with L droop, tongue deviation, L field cut, neglect, LUE/LE hemiparesis with ataxia and drift in LUE. On tele in SR. Up in room with 2,wk and GB. Pain in L shoulder managed with PO tylenol. Tolerating DD2 with thin diet. Discharge pending. 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 spouse can A at home as needed Self-Care Dominant Hand right Equipment Currently Used at Home none Activity/Exercise/Self-Care Comment has a cane but doesn't need it Functional Level Prior Ambulation 0-->independent Transferring 0-->independent Toileting 0-->independent Bathing 0-->independent Dressing 0-->independent Eating 0-->independent Communication 0-->understands/communicates without difficulty Swallowing 0-->swallows foods/liquids without difficulty Cognition 0 - no cognition issues reported Fall history within last six months no Which of the above functional risks had a recent onset or change? ambulation;transferring;toileting;bathing;dressing;fall history Prior Functional Level Comment patient independent prior to recent stroke General Information Onset of Illness/Injury or Date of Surgery - Date 03/02/18 Referring Physician Uzma Gray, DO Patient/Family Goals Statement family wants patient to go to rehab; appear open to ARC Pertinent History of Current Problem (include personal factors and/or comorbidities that impact the POC) per chart: Nicolette Dickson is a 67 year-old male with past medical history of obstructive sleep apnea, hyperlipidemia and hypertension who presents with acute onset left arm weakness, slurred speech, facial droop found to have acute ischemic stroke status post TPA. Admitted on 03/02/2018 [facility]; MRI Brain reveals scattered infarcts within the R. MCA territory, primarily watershed per chart Precautions/Limitations fall precautions General Observations L sided weakness, UE > LE; trunk weakness on L General Info Comments L neglect; L visual field cut per OT/chart Cognitive Status Examination Orientation orientation to person, place and time Level of Consciousness alert;lethargic/somnolent (very fatigued) Follows Commands and Answers Questions 75% of the time;100% of the time Personal Safety and Judgment at risk behaviors demonstrated Memory intact Cognitive Comment appears intact during session; defer to OT for further testing as needed Pain Assessment Patient Currently in Pain Yes, see Vital Sign flowsheet (L shoulder pain; ice helps per patient and pillow use) Posture Posture Comments able to maintain upright sitting at EOB with SBA; no dizziness; leans L in standing Range of Motion (ROM) ROM Comment L UE/LE active movement limited by weakness; appears intact passively Strength Strength Comments functional weakness on L UE > LE; LE weakness > proximally more than distally Bed Mobility Bed Mobility Comments Mod A for L LE into bed; min A for scooting over in bed Transfer Skills Transfer Comments sit>stand from bed height with min A; min A and safety cues to return to sitting at EOB Gait Gait Comments able to ambulate in room with mod A/BOARD WINDER of therapist; leans to L Balance Balance Comments impaired; some LOB to L during gait Sensory Examination Sensory Perception Comments intact to light touch R and L per patient report Coordination Coordination Comments decreased on L side Muscle Tone Muscle Tone Comments decreased in L UE Modality Interventions Planned Modality Interventions Comments ice to L shoulder General Therapy Interventions Planned Therapy Interventions bed mobility training;gait training;neuromuscular re-education;balancetraining;ROM;stretching;transfer training;progressive activity/exercise Clinical Impression Criteria for Skilled Therapeutic Intervention yes, treatment indicated PT Diagnosis impaired gait/transfers; weakness Influenced by the following impairments functional weakness; L neglect; L visual field cut; L UE/LE weakness; impaired balance; Functional limitations due to impairments impaired independence with functional mobility Clinical Presentation Evolving/Changing Clinical Presentation Rationale mod A or less for mobility; supportive living environment; medical complexity Clinical Decision Making (Complexity) Moderate complexity Therapy Frequency` 2 times/day Predicted Duration of Therapy Intervention (days/wks) 3 days Anticipated Equipment Needs at Discharge other (see comments) (to be determined) Anticipated Discharge Disposition Acute Rehabilitation Facility Risk & Benefits of therapy have been explained Yes Patient, Family & other staff in agreement with plan of care Yes [facility] AM-PAC TM 6 Clicks ?? 2016, Trustees of [facility], under license to [employer]. All rights reserved. 6 Clicks Short Forms Basic Mobility Inpatient Short Form [facility] AM-PAC??? 6 Clicks V.2 Basic Mobility Inpatient Short Form 1. Turning from your back to your side while in a flat bed without using bedrails? 3 - A Little 2. Moving from lying on your back to sitting on the side of a flat bed without using bedrails? 2 - ALot 3. Moving to and from a bed to a chair (including a wheelchair)? 2 - A Lot 4. Standing up from a chair using your arms (e.g., wheelchair, or bedside chair)? 3 - A Little 5. To walk in hospital room? 2 - A Lot 6. Climbing 3-5 steps with a railing? 2 - A Lot Basic Mobility Raw Score (Score out of 24.Lower scores equate to lower levels of function) 14 Total Evaluation Time Total Evaluation Time (Minutes) 10 PHONE SUPERVISOR Uzma Gray DO - 03/04/2018 10:[address] [facility] Hospitalist Progress Note Assessment & Plan Nicolette Dickson is a 67 year-old male with past medical history of obstructive sleep apnea, hyperlipidemia and hypertension who presents with acute onset left arm weakness, slurred speech, facial droop found to have acute ischemic stroke status post TPA. Admitted on 03/02/2018 as transfer from [facility] for post-TPA cares. Acute ischemic stroke, right frontal lobe, s/p tPA Hyperlipidemia Presented with acute onset left arm weakness, slurred speech, facial droop. CT head negative, CT perfusion study with small area and right frontal lobe suggestive of ischemia. CTA head and neck no significant occlusions or stenoses. No known history of atrial fibrillation. Received TPA at 1830 on 03/02. Neuro changes later that night with facial droop, repeat CT at 2300 did not show any change. MRI showed evidence of multiple infarcts in right middle cerebral artery distribution. Echocardiogram withbubble study negative. - Neurology following. - Blood pressure goal less than 140/90, resumed 10mg amlodipine this AM. As needed hydralazine IV available - Neurochecks q4h, transfer to station 77 with telemetry - Speech recommends dysphagia diet 2 - PT/OT evaluated, initially recommending ARU - Start full dose aspirin daily (first dose today) - Atorvastatin 20mg daily - MCOT patch for 30 day cardiac monitoring if nothing seen on telemetry - Follow up 4 weeks from discharge with local neurologist ?? Hypertension - Chronic, evidence of left ventricular hypertrophy (mild) on echocardiogram (?how well his BP was controlled as outpatient) - Prior to admission on amlodipine 10 mg daily, resumed today, trend BP ?? Obstructive sleep apnea Compliant with CPAP - Continue CPAP with home settings DVT Prophylaxis: Pneumatic Compression Devices Code Status: Full Code Expected discharge: tomorrow, pending further improvement with PT/OT, may go to ARU or home if patient refuses. DISPOSITION: Downgraded to floor with telemetry Uzma Gray, DO Text Page (7am - 6pm) Interval History Family at bedside today. Left arm strength is similar to yesterday, family believes that this waxes/wanes due to his overall fatigue. He has not been sleeping. He is tolerating DD2 diet, but says it doesn't taste good. Reviewed results with patient and family. Discussed possible discharge for tomorrow pending full PT/OT evaluation. -Data reviewed today: I reviewed all new labs and imaging results over the last 24 hours. I personally reviewed MRI which showed multiple infarcts in right middle cerebral artery distribution Echocardiogram 03/03: Left ventricular systolic function is normal. The visual ejection fraction is estimated at 60-65%. There is mild concentric left ventricular hypertrophy. A contrast injection (Bubble Study) was performed that was negative for flow across the interatrial septum. There is no atrial shunt seen. Sinus rhythm was noted. Technically difficult, suboptimal study. Contrast was used without apparent complications. There is no comparison study available. Physical Exam Temp: 98 ??F (36.7 ??C) Temp src: Axillary BP: 144/78 Heart Rate: 66 Resp: 14 SpO2: 95 % O2 Device: None (Room air) Oxygen Delivery: 2 LPM Vitals: 03/02/18 2200 03/04/18 0500 Weight: 113.7 kg (250 lb 10.6 oz) 112.2 kg (247 lb 5.7 oz) Vital Signs with Ranges Temp: [98 ??F (36.7 ??C)-99.1 ??F (37.3 ??C)] 98 ??F (36.7 ??C) Heart Rate: [58-106] 66 Resp: [0-45] 14 BP: (139-170)/(74-96) 144/78 SpO2: [94 %-98 %] 95 % I/O last 3 completed shifts: In: 900 [P.O.:300; I.V.:600] Out: 2885 [Urine:2885] Constitutional: Awake, alert, cooperative, no apparent distress Respiratory: Clear to auscultation bilaterally, no crackles or wheezing Cardiovascular: Regular rate and rhythm, normal S1 and S2, and no murmur noted GI: Normal bowel sounds, soft, non-distended, non-tender Skin/Integumen: No rashes, no cyanosis, no edema Other: Oriented x3, right>left shoulder shrug. Some left neglect. Left arm slow, but able to raise above his head. Right arm 5/5 strength, left arm 4/5 strength. Tongue deviates slightly right. Speech not slurred. Left facial droop similar to 03/03. Medications ??? - MEDICATION INSTRUCTIONS - ??? - MEDICATION INSTRUCTIONS - ??? - MEDICATION INSTRUCTIONS - ??? - MEDICATION INSTRUCTIONS - ??? amLODIPine 10 mg Oral Daily ??? aspirin 325 mg Oral Daily ??? atorvastatin 20 mg Oral QPM ??? sodium chloride 0.9 % 100 mL Intravenous Once ??? iopamidol 70 mL Intravenous Once ??? sodium chloride (PF) 10 mL Intracatheter Q8H Data Recent Labs Lab 03/04/18 0530 03/03/18 0550 03/02/18 2340 03/02/18 1738 WBC 11.5* -- -- 11.2* HGB 14.8 -- -- 15.3 MCV 87 -- -- 89 PLT 210 -- -- 230 INR -- -- -- 0.97 NA 140 143 -- 141 POTASSIUM 3.5 3.6 -- 3.5 CHLORIDE 106 109 -- 107 CO2 25 28 -- 26 BUN 8 10 -- 13 CR 0.75 0.80 -- 0.85 ANIONGAP 9 6 -- 8 DEANDRA 8.8 8.6 -- 8.5 GLC 131* 135* -- 170* ALBUMIN -- 3.5 -- -- PROTTOTAL -- 7.1 -- -- BILITOTAL -- 0.7 -- -- ALKPHOS -- 132 -- -- ALT -- 30 -- -- AST -- 19 -- -- TROPI -- <0.015 <0.015 <0.015 Recent Results (from the past 24 hour(s)) MRI Brain w & w/o contrast Narrative MRI BRAIN WITHOUT AND WITH CONTRAST 03/03/2018 6:46 PM HISTORY: Stroke. Worsening right hemisphere neurological symptoms status post TPA. Left-sided weakness. TECHNIQUE: Multiplanar, multisequence MRI of the brain without and with 11mL Gadavist. COMPARISON: CT angiogram and perfusion CT scan of the head today. FINDINGS: Recent appearing infarcts are seen in the right cerebral hemisphere in the right middle cerebral artery territory including the deep white matter of the right posterior frontal lobe, the right insula, the right inferior frontal gyrus and the lateral aspect of the right parietal and occipital lobes as well as in the right temporal lobe laterally. No left-sided infarcts are seen. The brainstem and cerebellum appear normal. There is mild generalized atrophy of the brain. There is no evidence of hemorrhage. No gadolinium enhancing lesions are seen, but there is slowed intravascular blood flow in branches of the right middle cerebral artery particularly over the right posterior frontal lobe and the lateral right parietal lobe and in the right sylvian fissure. There is fluid in inferior mastoid air cells bilaterally. Facial soft tissues appear normal. Impression IMPRESSION: 1. Multiple infarcts in the right middle cerebral artery territory accompanied by slowed blood flow. 2. No hemorrhage. 3. Fluid in inferior mastoid air cells bilaterally. EMILIANO BAINS MD PHONE SUPERVISOR Hailee Peralta PA-C - 03/04/2018 10:16 AM CST VASCULAR NEUROLOGY PROGRESS NOTE Admission Summary: Nicolette Dickson is a 67 year old man admitted for stroke. He presented to the ED at [facility] at 5:30 pm on 03/02 with complaints of left arm weakness and numbness as well as slurred speech . He was seen byDr. Hernandez via telestroke consultation and found to have NIHSS of 3. He was given TPA at 18:30 on03/03. He then had some increased symptoms after TPA started - left facial droop. Repeat CT head wasdone which showed no bleed. Last 24 hours: He reports his left arm feels somewhat stronger Medications: Current Facility-Administered Medications Medication Dose Route Frequency ??? amLODIPine 10 mg Oral Daily ??? aspirin 325 mg Oral Daily ??? atorvastatin 20 mg Oral QPM ??? sodium chloride 0.9 % 100 mL Intravenous Once ??? iopamidol 70 mL Intravenous Once ??? sodium chloride (PF) 10 mL Intracatheter Q8H Current Facility-Administered Medications Medication Last Rate ??? - MEDICATION INSTRUCTIONS - ??? - MEDICATION INSTRUCTIONS - ??? - MEDICATION INSTRUCTIONS - ??? - MEDICATION INSTRUCTIONS - Current Facility-Administered Medications Medication Dose Route Frequency ??? acetaminophen 650 mg Rectal Q4H PRN ??? acetaminophen 650 mg Oral Q4H PRN ??? bisacodyl 10 mg Rectal Daily PRN ??? hydrALAZINE 10-20 mg Intravenous Q30 Min PRN ??? magnesium sulfate 4 g Intravenous Q4H PRN ??? - MEDICATION INSTRUCTIONS - Does not apply Continuous PRN ??? melatonin 1 mg Oral At Bedtime PRN ??? naloxone 0.1-0.4 mg Intravenous Q2 Min PRN ??? - MEDICATION INSTRUCTIONS - Does not apply Continuous PRN ??? ondansetron 4 mg Oral Q6H PRN Or ??? ondansetron 4 mg Intravenous Q6H PRN ??? - MEDICATION INSTRUCTIONS - Does not apply Continuous PRN ??? polyethylene glycol 17 g Oral Daily PRN ??? potassium chloride 20-40 mEq Oral or Feeding Tube Q2H PRN ??? potassium chloride with lidocaine 10 mEq Intravenous Q1H PRN ??? potassium chloride 10 mEq Intravenous Q1H PRN ??? potassium chloride 20 mEq Intravenous Q1H PRN ??? potassium chloride 20-40 mEq Oral Q2H PRN ??? prochlorperazine 5 mg Intravenous Q6H PRN Or ??? prochlorperazine 5 mg Oral Q6H PRN Or ??? prochlorperazine 12.5 mg Rectal Q12H PRN ??? senna-docusate 1 tablet Oral BID PRN Or ??? senna-docusate 2 tablet Oral BID PRN ??? - MEDICATION INSTRUCTIONS - Does not apply Continuous PRN Stroke Scales NIHSS Interval and Comments 1a. Level of Consciousness 0-->Alert: keenly responsive 1b. LOC Questions 0-->Answers both questions correctly 1c. LOC Commands 0-->Performs both tasks correctly 2. Best Gaze 0-->Normal 3. Visual 1-->Partial hemianopia 4. Facial Palsy 2-->Partial paralysis (total or near-total paralysis of lower face) 5a. Motor Arm, Left 2-->Some effort against gravity: limb cannot get to or maintain (if cued) 90 (or 45) degrees, drifts down to bed, but has some effort against gravity 5b. Motor Arm, Right 0-->No drift: limb holds 90 (or 45) degrees for full 10 secs 6a. Motor Leg, Left 0-->No drift: leg holds 30 degree position for full 5 secs 6b. Motor Leg, right 0-->No drift: leg holds 30 degree position for full 5 secs 7. Limb Ataxia 1-->Present in one limb 8. Sensory 1-->[id number] sensory loss: patient feels pinprick is less sharp or is dull on the affected side: or there is a loss of superficial pain with pinprick, but patient is aware of being touched 9. Best Language 0-->No aphasia: normal 10. Dysarthria 0-->Normal 11. Extinction and Inattention 1-->Visual, tactile, auditory, spatial, or personal inattention orextinction to bilateral simultaneous stimulation in one of the sensory modalities Total 8 Vital Signs: Temp: [98 ??F (36.7 ??C)-99.1 ??F (37.3 ??C)] 98 ??F (36.7 ??C) Heart Rate: [58-106] 66 Resp: [0-45] 14 BP: (139-170)/(74-96) 144/78 SpO2: [94 %-98 %] 95 % General: Awake and alert, not in any acute distress, cooperative ?? Neuro: Mental status: Awake, alert, attentive, oriented x3. Speech is fluent, comprehension and repetition intact. Mild dysarthria. Good historian. Cranial nerves: Pupils equal and reactive. EOMI, unable to close L eye fully, Visual field testing shows left lower quadrantanopia, left central 7th nerve palsy, left face numb to light touch, tongue deviates rightward, hearing intact to normal conversation voice Motor: Increased tone LUE. Left shoulder abduction and elbow extension weakness at 4-/5. Left hand wrist extension and interossei 2/5. Finger flexion 4/5. Good thumb wiggle. Right arm and leg strength 5/5 Reflexes: Symmetric 2+ throughout, left toe upgoing and right toe mute Sensory: intact to light touch in the legs and arms, but neglects the left leg and left arm with double simultaneous stimultaneous stimulation. left face completely numb to LT Coordination: Finger to nose intact on right, very slow on left due to left arm weakness but not obviously ataxic, some L leg ataxia with HTS Gait: deferred Labs/Studies: CBC: Recent Labs Lab 03/04/18 0530 03/02/18 1738 WBC 11.5* 11.2* RBC 4.88 5.16 HGB 14.8 15.3 HCT 42.5 46.1 PLT 210 230 Basic Metabolic Panel: Recent Labs Lab Test 03/04/18 0530 03/03/18 0550 03/02/18 1738 NA 140 143 141 POTASSIUM 3.5 3.6 3.5 CHLORIDE 106 109 107 CO2 25 28 26 BUN 8 10 13 CR 0.75 0.80 0.85 GLC 131* 135* 170* DEANDRA 8.8 8.6 8.5 Liver panel: Recent Labs Lab Test 03/03/18 0550 05/31/16 2041 01/09/14 0445 PROTTOTAL 7.1 7.1 7.7 ALBUMIN 3.5 3.6 3.7 BILITOTAL 0.7 0.4 0.8 ALKPHOS 132 104 107 AST 19 21 15 ALT 30 32 29 INR: Recent Labs Lab Test 03/02/18 1738 INR 0.97 Lipid Profile: Recent Labs Lab Test 03/03/18 0550 CHOL 137 HDL 58 LDL 59 TRIG 100 A1C: Recent Labs Lab Test 03/03/18 0550 A1C 6.1* Troponin I: Recent Labs Lab Test 03/03/18 0550 03/02/18 2340 03/02/18 1738 TROPI <0.015 <0.015 <0.015 Imaging: MRI brain 03/03/18: IMPRESSION: 1. Multiple infarcts in the right middle cerebral artery territory accompanied by slowed blood flow. 2. No hemorrhage. 3. Fluid in inferior mastoid air cells bilaterally. Transthoracic echo Interpretation Summary ?? Left ventricular systolic function is normal. The visual ejection fraction is estimated at 60-65%. There is mild concentric left ventricular hypertrophy. A contrast injection (Bubble Study) was performed that was negative for flow across the interatrial septum. There is no atrial shunt seen. Sinus rhythm was noted. Technically difficult, suboptimal study. Contrast was used without apparent complications. There is no comparison study available. Impression: Ischemic Stroke due to embolic stroke of undetermined source (ESUS) HTN HLD L hemiparesis L visual field cut Dysarthria Recommendations: Acute Ischemic Stroke (post tPA on 03/02/18) Recommendations - Euthermia, Euglycemia - Continue aspirin 325 mg daily - Continue lipitor 20mg daily - Continue telemetry, and as outpatient 30 day cardiac monitoring with MCOT Patch if unvrealing - Bedside Glucose Monitoring - PT/OT/PROCEDURE TECH - Stroke Education - SBP goal <140/90 Patient Follow-up - 4 weeks with local neurologist. Stroke Education provided including signs/symptoms of a stroke and the importance of timely treatment. No further inpatient workup needed. Please contact the Stroke Service with any questions. 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 spouse can A at home as needed Self-Care Dominant Hand right Equipment Currently Used at Home cane, straight Activity/Exercise/Self-Care Comment does not use cane but has at home Functional Level Prior Ambulation 0-->independent Transferring 0-->independent Toileting 0-->independent Bathing 0-->independent Dressing 0-->independent Eating 0-->independent Communication 0-->understands/communicates without difficulty Swallowing 0-->swallows foods/liquids without difficulty Cognition 0 - no cognition issues reported Fall history within last six months no Which of the above functional risks had a recent onset or change? ambulation;transferring;toileting;bathing;dressing Prior Functional Level Comment IND prior General Information Onset of Illness/Injury or Date of Surgery - Date 03/02/18 Referring Physician Keira Gaytan MD Patient/Family Goals Statement none stated Additional Occupational Profile Info/Pertinent History of Current Problem who presents with left hemiparesis on 03/02/2018 to [facility] s/p IV tPA with improvement in his symptoms. MRI Brain reveals scattered infarcst within the R. MCA territory, primarily watershed Precautions/Limitations fall precautions Cognitive Status Examination Orientation orientation to person, place and time Level of Consciousness alert Able to Follow Commands WNL/WFL Personal Safety (Cognitive) WNL/WFL Memory intact Visual Perception Visual Perception Comments L visual field cut. R visual field WNL Sensory Examination Sensory Quick Adds No deficits were identified Pain Assessment Patient Currently in Pain No Integumentary/Edema Integumentary/Edema no deficits were identifed Posture Posture Comments lateral lean to L noted in sitting Range of Motion (ROM) ROM Comment LUE shoulder flexion 85 degress. Strength Strength Comments LUE 3/5. RUE WNL Muscle Tone Assessment Muscle Tone Quick Adds No deficits were identified Coordination Upper Extremity Coordination Left UE impaired Mobility Bed Mobility Bed mobility skill: Supine to sit Bed Mobility Skill: Supine to Sit Level of [place]: Supine/Sit moderate assist (50% patients effort) Assistive Device: Supine/Sit bedrail Transfer Skill: Bed to Chair/Chair to Bed Level of [place]: Bed to Chair moderate assist (50% patients effort) Assistive Device - Transfer Skill Bed to Chair Chair to Bed Rehab Eval standard walker Transfer Skill: Sit to Stand Level of [place]: Sit/Stand minimum assist (75% patients effort) Assistive Device for Transfer: Sit/Stand standard walker Upper Body Dressing Level of [place]: Dress Upper Body moderate assist (50% patients effort) Lower Body Dressing Level of [place]: Dress Lower Body maximum assist (25% patients effort) Eating/Self Feeding Level of [place]: Eating independent Instrumental Activities of Daily Living (IADL) Previous Responsibilities meal prep;housekeeping;laundry;shopping;yardwork;medication management;vita nces;driving;work Activities of Daily Living Analysis Impairments Contributing to Impaired Activities of Daily Living balance impaired;ROM decreased;strength decreased;postural control impaired;coordination impaired General Therapy Interventions Planned Therapy Interventions ADL retraining;cognition;strengthening;ROM;transfer training;neuromuscular re- education;fine motor coordination training;visual perception Clinical Impression Criteria for Skilled Therapeutic Interventions Met yes, treatment indicated OT Diagnosis Dec IND with ADl's and transfers Influenced by the following impairments impaired balance, vision, strength, ROM L side Assessment of Occupational Performance 1-3 Performance Deficits Identified Performance Deficits LE dressing, toileting, toilet transfer, grooming/hygien Clinical Decision Making (Complexity) Low complexity Therapy Frequency 2 times/day Predicted Duration of Therapy Intervention (days/wks) 4 days Anticipated Discharge Disposition Acute Rehabilitation Facility Risks and Benefits of Treatment have been explained. Yes Patient, Family & other staff in agreement with plan of care Yes [facility] TM 6 Clicks ?? 2016, Trustees of [facility], under license to [employer]. All rights reserved. 6 Clicks Short Forms Daily Activity Inpatient Short Form [facility]??? 6 Clicks Daily Activity Inpatient Short Form 1. Putting on and taking off regular lower body clothing? 2 - A Lot 2. Bathing (including washing, rinsing, drying)? 2 - A Lot 3. Toileting, which includes using toilet, bedpan or urinal? 3 - A Little 4. Putting on and taking off regular upper body clothing? 2 - A Lot 5. Taking care of personal grooming such as brushing teeth? 3 - A Little 6. Eating meals? 4 - None Daily Activity Raw Score (Score out of 24.Lower scores equate to lower levels of function) 16 Total Evaluation Time Total Evaluation Time (Minutes) 10 PHONE SUPERVISOR Rhina Miller - 03/03/2018 3:16 PM CST [facility] Progress Note [facility] ICU Pt said he is frustrated because I have been waiting for information. Pt and family declined SH atthis time, SH is available as requested. hRina Miller [employer] Uzma Liao DO - 03/03/2018 11:[address] [facility] Hospitalist Progress Note Assessment & Plan Nicolette Dickson is a 67 year-old male with past medical history of obstructive sleep apnea, hyperlipidemia and hypertension who presents with acute onset left arm weakness, slurred speech, facial droop found to have acute ischemic stroke status post TPA. Admitted on 03/02/2018 as transfer from [facility] for post-TPA cares. Acute ischemic stroke, right frontal lobe, s/p tPA Hyperlipidemia Presented with acute onset left arm weakness, slurred speech, facial droop. CT head negative, CT perfusion study with small area and right frontal lobe suggestive of ischemia. CTA head and neck no significant occlusions or stenoses. No known history of atrial fibrillation. Received TPA at 1830 on 03/02. Neuro changes overnight, had CT at 2300 which did not show any change. - Neurocritical care consulted - MRI brain not yet performed. - Echocardiogram with bubble study today (negative) - Blood pressure goal less than 180/105. As needed hydralazine IV available - Close monitoring and neuro checks post TPA per protocol - Speech recommends dysphagia diet 2, PT/OT will see 24H after TPA. - Stop IVF - Hold aspirin / anticoagulation until cleared by neurology - Atorvastatin 40mg daily, had been on 20mg daily (LDL 59) ?? Hypertension - Chronic, evidence of left ventricular hypertrophy (mild) on echocardiogram (?how well his BP was controlled as outpatient) - Prior to admission on amlodipine 10 mg daily, resume in AM ?? Obstructive sleep apnea Compliant with CPAP - Continue CPAP with home settings DVT Prophylaxis: Pneumatic Compression Devices Code Status: Full Code Expected discharge: few days, location pending PT/OT eval. DISPOSITION: Okay for downgrade from ICU overnight (24H after TPA administered) Uzma Gray, DO Text Page (7am - 6pm) Interval History Per patient and family at bedside, patient's left arm strength is moderately improved from admission. Still with some facial droop, less noticeable slurred speech per family. Asking for something to eat/drink. Updated on the expectations/plan of care for the day. Head CT repeated overnight for change in neuro status. -Data reviewed today: I reviewed all new labs and imaging results over the last 24 hours. I personally reviewed CT head without acute intracranial abnormality Echocardiogram 03/03: Left ventricular systolic function is normal. The visual ejection fraction is estimated at 60-65%. There is mild concentric left ventricular hypertrophy. A contrast injection (Bubble Study) was performed that was negative for flow across the interatrial septum. There is no atrial shunt seen. Sinus rhythm was noted. Technically difficult, suboptimal study. Contrast was used without apparent complications. There is no comparison study available. Physical Exam Temp: 98.2 ??F (36.8 ??C) Temp src: Oral BP: 149/80 Heart Rate: 76 Resp: 16 SpO2: 95 % O2 Device: Nasal cannula Oxygen Delivery: 2 LPM Vitals: 03/02/18 2200 Weight: 113.7 kg (250 lb 10.6 oz) Vital Signs with Ranges Temp: [97.9 ??F (36.6 ??C)-99.4 ??F (37.4 ??C)] 98.2 ??F (36.8 ??C) Pulse: [79] 79 Heart Rate: [67-89] 76 Resp: [11-31] 16 BP: (145-187)/(65-103) 149/80 SpO2: [92 %-100 %] 95 % I/O last 3 completed shifts: In: 851.25 [I.V.:351.25; IV Piggyback:500] Out: 1075 [Urine:1075] Constitutional: Awake, alert, cooperative, no apparent distress Respiratory: Clear to auscultation bilaterally, no crackles or wheezing Cardiovascular: Regular rate and rhythm, normal S1 and S2, and no murmur noted GI: Normal bowel sounds, soft, non-distended, non-tender Skin/Integumen: No rashes, no cyanosis, no edema Other: Oriented x3, right>left shoulder shrug. Some left neglect. Left arm slow, but able to raise above his head. Right arm 5/5 strength, left arm 4/5 strength. Tongue deviates slightly right. Medications ??? - MEDICATION INSTRUCTIONS - ??? - MEDICATION INSTRUCTIONS - ??? - MEDICATION INSTRUCTIONS - ??? - MEDICATION INSTRUCTIONS - ??? [START ON 03/04/2018] amLODIPine 10 mg Oral Daily ??? atorvastatin 40 mg Oral QPM ??? sodium chloride 0.9 % 100 mL Intravenous Once ??? iopamidol 70 mL Intravenous Once ??? LORazepam 1 mg Intravenous Once ??? sodium chloride (PF) 10 mL Intracatheter Q8H Data Recent Labs Lab 03/03/18 0550 03/02/18 2340 03/02/18 1738 WBC -- -- 11.2* HGB -- -- 15.3 MCV -- -- 89 PLT -- -- 230 INR -- -- 0.97 NA 143 -- 141 POTASSIUM 3.6 -- 3.5 CHLORIDE 109 -- 107 CO2 28 -- 26 BUN 10 -- 13 CR 0.80 -- 0.85 ANIONGAP 6 -- 8 DEANDRA 8.6 -- 8.5 GLC 135* -- 170* ALBUMIN 3.5 -- -- PROTTOTAL 7.1 -- -- BILITOTAL 0.7 -- -- ALKPHOS 132 -- -- ALT 30 -- -- AST 19 -- -- TROPI <0.015 <0.015 <0.015 Recent Results (from the past 24 hour(s)) CT Head w/o Contrast Narrative CT OF THE HEAD WITHOUT CONTRAST 03/02/2018 5:49 PM COMPARISON: None. HISTORY: Code stroke, left side weakness. TECHNIQUE: [address] images of the head were acquired without IV contrast material. FINDINGS: There is moderate diffuse cerebral volume loss. There are subtle patchy areas of decreased density in the cerebral white matter bilaterally that are consistent with sequela of chronic small vessel ischemic disease. The ventricles and basal cisterns are within normal limits in configuration given the degree of cerebral volume loss. There is no midline shift. There are no extra-axial fluid collections. No intracranial hemorrhage, mass or recent infarct. The visualized paranasal sinuses are well-aerated. There is no mastoiditis. There are no fractures of the visualized bones. Impression IMPRESSION: Diffuse cerebral volume loss and cerebral white matter changes consistent with chronic small vessel ischemic disease. No evidence for acute intracranial pathology. Radiation dose for this scan was reduced using automated exposure control, adjustment of the mA and/or kV according to patient size, or iterative reconstruction technique J LUIS DAWSON MD CTA Head Neck with Contrast Narrative CT ANGIOGRAM OF THE HEAD AND NECK WITHOUT AND WITH CONTRAST 03/02/2018 5:55 PM COMPARISON: None. HISTORY: Code stroke; left side weakness. TECHNIQUE: Precontrast localizing scans were followed by CT angiography with an injection of 70 mL Isovue-370 nonionic intravenous contrast material with scans through the head and neck. Images were transferred to a separate 3-D workstation where multiplanar reformations and 3-D images were created. Estimates of carotid stenoses are made relative to the distal internal carotid artery diameters except as noted. FINDINGS: Neck CTA: The common carotid arteries bilaterally are tortuous but are patent without stenosis. The cervical internal carotid arteries bilaterally are tortuous but are patent without stenosis. The vertebral arteries bilaterally are tortuous but are patent without stenosis. Head CTA: The basilar, bilateral distal internal carotid, bilateral anterior cerebral, bilateral middle cerebral and bilateral posterior cerebral arteries are patent and unremarkable. The anterior communicating and right posterior communicating arteries are patent and unremarkable. Impression IMPRESSION: Normal neck and head CTA. Specifically, no definite occluded vessel noted to account for the perfusion defect at the posterior aspect of the right frontal lobe noted on the accompanying CT perfusion study. This imaging study was discussed with the ordering physician, Dr. Caesar Gonzalez, by Dr. Dawson on 03/02/2018 6:09 PM. Radiation dose for this scan was reduced using automated exposure control, adjustment of the mA and/or kV according to patient size, or iterative reconstruction technique J LUIS DAWSON MD CT Head Perfusion w Contrast Narrative CT BRAIN PERFUSION 03/02/2018 5:58 PM COMPARISON: None HISTORY: Code stroke. TECHNIQUE: Time sequential axial CT images of the head were acquired during the administration of intravenous contrast (50 mL [id number]-370). CTA images of the [place] as well as color perfusion maps of the brain were created from this time sequential axial source data. Impression IMPRESSION: There is a small area of delayed arrival of the contrast bolus at the posterolateral aspect of the right frontal lobe that could represent an area of ischemia. No other perfusion defects. This imaging study, including the abnormal finding of small posterior right frontal perfusion defect, was discussed with the ordering physician, Dr. Caesar Gonzalez, by Dr. Dawson on 03/02/2018 6:08 PM. Radiation dose for this scan was reduced using automated exposure control, adjustment of the mA and/or kV according to patient size, or iterative reconstruction technique J LUIS DAWSON MD CT Head w/o Contrast Narrative CT OF THE HEAD WITHOUT CONTRAST 03/02/2018 9:20 PM COMPARISON: Head CT same day. HISTORY: Stroke symptoms, left arm weak. Got TPA, now facial droop. TECHNIQUE: [address] images of the head were acquired without IV contrast material. FINDINGS: There is moderate diffuse cerebral volume loss. There are subtle patchy areas of decreased density in the cerebral white matter bilaterally that are consistent with sequela of chronic small vessel ischemic disease. The ventricles and basal cisterns are within normal limits in configuration given the degree of cerebral volume loss. There is no midline shift. There are no extra-axial fluid collections. No intracranial hemorrhage, mass or recent infarct. The visualized paranasal sinuses are well-aerated. There is no mastoiditis. There are no fractures of the visualized bones. Impression IMPRESSION: Diffuse cerebral volume loss and cerebral white matter changes consistent with chronic small vessel ischemic disease. No evidence for acute intracranial pathology. No change from the recent comparison study. Radiation dose for this scan was reduced using automated exposure control, adjustment of the mA and/or kV according to patient size, or iterative reconstruction technique J LUIS DAWSON MD CT Head w/o Contrast Narrative CT SCAN OF THE HEAD WITHOUT CONTRAST March 02, 2018 11:43 PM HISTORY: Neurological changes. TECHNIQUE: Axial images of the head and coronal reformations without IV contrast material. Radiation dose for this scan was reduced using automated exposure control, adjustment of the mA and/or kV according to patient size, or iterative reconstruction technique. COMPARISON: 03/02/2018. FINDINGS: Mild volume loss is present. Patchy white matter hypoattenuation likely represents chronic small vessel ischemic change. No evidence of acute ischemia, hemorrhage, mass, mass effect, or hydrocephalus. The visualized calvarium, skull base, paranasal sinuses, and extracranial soft tissues are unremarkable. Impression IMPRESSION: No acute intracranial abnormality. No change. EMILIANO NEIL MD Laly Sesay APRN HAND THERAPIST - 03/03/2018 10:28 AM CST ICU Multi-Disciplinary Note Patient condition reviewed and discussed while on multidisciplinary rounds today. Mr. Dickson is a 67year old man who presented last night with symptoms of stroke. Head CT showed perfusion defect consistent with possible ischemia, so TPA was administered. He was admitted to the ICU for close neurologic monitoring. He is currently hemodynamically stable without the support of vasoactives and oxygenating adequately on 2L nasal cannula. No interventions were implemented by the ICU team. The Critical Care service will continue to follow peripherally while the patient is within the ICU. We are readily available should issues arise. Please feel free to contact us for critical care issueswith which we may be of assistance. For all other concerns, please contact primary service first. Laly Vergara CNP Rhona Elder SLP - 03/03/2018 9:43 AM CST 03/03/18 0922 General Information Onset Date 03/02/18 Start of Care Date 03/03/[address] Gaytan Patient Profile Review/OT: Additional Occupational Profile Info See Profile for full history and prior level of function Patient/Family Goals Statement To have some water. Swallowing Evaluation Bedside swallow evaluation Behaviorial Observations Lethargic;Impulsive Mode of current nutrition NPO Respiratory Status O2 Supply Type of O2 supply Nasal cannula Comments Per MD note; Nicolette Dickson is a 67 year-old male with past medical history of obstructive sleep apnea, hyperlipidemia and hypertension who presents with acute onset left arm weakness, slurred speech, facial droop found to have acute ischemic stroke status post TPA. Admitted on 03/02/2018 as transfer from [facility] for post-TPA cares. Clinical Swallow Evaluation Oral Musculature anomalies present Structural Abnormalities none present Dentition present and adequate Mucosal Quality adequate Mandibular Strength and Mobility intact Oral Labial Strength and Mobility impaired retraction;impaired pursing Lingual Strength and Mobility impaired protrusion;impaired anterior elevation;impaired left lateral movement (Decreased ROM and sensation.) Velar Elevation intact Buccal Strength and Mobility intact Laryngeal Function Cough;Throat clear;Swallow;Voicing initiated;Dry swallow palpated (Cough is fair.) Oral Musculature Comments Mild to moderate deficits. Additional Documentation Yes Additional evaluation(s) completed today Recommended Rationale for completing additional evaluation Will need to complete a speech/language evaluation. VFSS as indicated. Swallow Eval Feeding Assistance minimal assistance required Clinical Swallow Eval: Thin Liquid Texture Trial Mode of Presentation, Thin Liquids cup;spoon;straw;fed by clinician;self-fed Volume of Liquid or Food Presented 3 oz of water Oral Phase of Swallow Premature pharyngeal entry Pharyngeal Phase of Swallow impaired;reduction in laryngeal movement (Delayed) Diagnostic Statement No overt Sx of aspiration. Clinical Swallow Eval: Puree Solid Texture Trial Mode of Presentation, Puree spoon;fed by clinician Volume of Puree Presented 4 teaspoons of pudding Oral Phase, Puree Poor AP movement;Premature pharyngeal entry Pharyngeal Phase, Puree impaired;reduction in laryngeal movement;repeated swallows Diagnostic Statement No overt Sx of aspiration. Clinical Swallow Eval: Solid Food Texture Trial Mode of Presentation, Solid self-fed Volume of Solid Food Presented 1/2 chang cracker Oral Phase, Solid Poor AP movement;Residue in oral cavity;Premature pharyngeal entry Oral Residue, Solid left anterior lateral sulci;mid posterior tongue Pharyngeal Phase, Solid impaired;reduction in laryngeal movement;repeated swallows Diagnostic Statement Decreased sensation with mild to moderate oral residue on left side. Swallow Compensations Swallow Compensations Alternate viscosity of consistencies;Pacing;Reduce amounts;Multiple swallow Results Suspect silent aspiration;Oral difficulties only General Therapy Interventions Planned Therapy Interventions Dysphagia Treatment Dysphagia treatment Oropharyngeal exercise training;Modified diet education;Instruction of safe swallow strategies Swallow Eval: Clinical Impressions Skilled Criteria for Therapy Intervention Skilled criteria met. Treatment indicated. Functional Assessment Scale (FAS) 4 Treatment Diagnosis Mild to moderate oral and pharyngeal dysphagia Diet texture recommendations Dysphagia diet level 2;Thin liquids Recommended Feeding/Eating Techniques alternate between small bites and sips of food/liquid;check mouth frequently for oral residue/pocketing;hard swallow w/ each bite or sip;maintain upright posture during/after eating for 30 mins;no straws;small sips/bites (Double swallow) Therapy Frequency daily Predicted Duration of Therapy Intervention (days/wks) 1 week Anticipated Discharge Disposition inpatient rehabilitation facility Risks and Benefits of Treatment have been explained. Yes Patient, family and/or staff in agreement with Plan of Care Yes Clinical Impression Comments Patient presents with mild to moderate oral and pharyngeal dysphagia secondary to a right frontal infarct. Oral motor examination revealed decreased sensation on the left side, left facial droop, dysarthria, decreased ROM for labial/lingual function. Premature entry of thin liquids with mild delay, but no overt Sx of aspiration. Pureed textures were swallowed without difficulty. He demonstrated slow mastication of a solid, reduced bolus control, coordination and AP transport. This resulted in mild to moderate oral residue on the left side. He was able to clear with an additional swallow and liquid rinse. Fatigue will increase risk for aspiration. Recommend: 1. Dysphagia Diet level 2 with thin liquids. 2. Feed only when fully alert, no straws, small bites/sips, check for oral residue on the left side, double swallow and alternate liquids/solids. Hold diet if Sx of aspiration present. Total Evaluation Time Total Evaluation Time (Minutes) 15 PHONE SUPERVISOR Hailee Peralta PA-C - 03/03/2018 9:32 AM CST VASCULAR NEUROLOGY PROGRESS NOTE Admission Summary: Nicolette Dickson is a 67 year old man admitted for stroke. He presented to the ED at [facility] at 5:30 pm on 03/02 with complaints of left arm weakness and numbness as well as slurred speech . He was seen byDr. Hernandez via telestroke consultation and found to have NIHSS of 3. He was given TPA at 18:30 on03/03. He then had some increased symptoms after TPA started - left facial droop. Repeat CT head wasdone which showed no bleed. Last 24 hours: The patient reports he feels better today. He has no headache. MRI brain has not been done yet. Since arrival his BP has been in the 140-180 range, since 0100 trending down toward the lower end of thatrange. Medications: Current Facility-Administered Medications Medication Dose Route Frequency ??? atorvastatin 40 mg Oral QPM ??? sodium chloride 0.9 % 100 mL Intravenous Once ??? iopamidol 70 mL Intravenous Once Current Facility-Administered Medications Medication Last Rate ??? - MEDICATION INSTRUCTIONS - ??? niCARdipine 40 mg in 200 mL 0.9% NaCl ??? - MEDICATION INSTRUCTIONS - ??? - MEDICATION INSTRUCTIONS - ??? sodium chloride 75 mL/hr at 03/03/18 0638 ??? - MEDICATION INSTRUCTIONS - Current Facility-Administered Medications Medication Dose Route Frequency ??? acetaminophen 650 mg Rectal Q4H PRN ??? acetaminophen 650 mg Oral Q4H PRN ??? bisacodyl 10 mg Rectal Daily PRN ??? hydrALAZINE 10-20 mg Intravenous Q30 Min PRN ??? magnesium sulfate 4 g Intravenous Q4H PRN ??? - MEDICATION INSTRUCTIONS - Does not apply Continuous PRN ??? melatonin 1 mg Oral At Bedtime PRN ??? naloxone 0.1-0.4 mg Intravenous Q2 Min PRN ??? - MEDICATION INSTRUCTIONS - Does not apply Continuous PRN ??? ondansetron 4 mg Oral Q6H PRN Or ??? ondansetron 4 mg Intravenous Q6H PRN ??? - MEDICATION INSTRUCTIONS - Does not apply Continuous PRN ??? polyethylene glycol 17 g Oral Daily PRN ??? potassium chloride 20-40 mEq Oral or Feeding Tube Q2H PRN ??? potassium chloride with lidocaine 10 mEq Intravenous Q1H PRN ??? potassium chloride 10 mEq Intravenous Q1H PRN ??? potassium chloride 20 mEq Intravenous Q1H PRN ??? potassium chloride 20-40 mEq Oral Q2H PRN ??? prochlorperazine 5 mg Intravenous Q6H PRN Or ??? prochlorperazine 5 mg Oral Q6H PRN Or ??? prochlorperazine 12.5 mg Rectal Q12H PRN ??? senna-docusate 1 tablet Oral BID PRN Or ??? senna-docusate 2 tablet Oral BID PRN ??? - MEDICATION INSTRUCTIONS - Does not apply Continuous PRN Stroke Scales NIHSS Interval and Comments (arrival [facility] ICU) 1a. Level of Consciousness 0-->Alert: keenly responsive 1b. LOC Questions 0-->Answers both questions correctly 1c. LOC Commands 0-->Performs both tasks correctly 2. Best Gaze 0-->Normal 3. Visual 1-->Partial hemianopia 4. Facial Palsy 2-->Partial paralysis (total or near-total paralysis of lower face) 5a. Motor Arm, Left 1-->Drift: limb holds 90 (or 45) degrees, but drifts down before full 10 seconds: does not hit bed or other support 5b. Motor Arm, Right 0-->No drift: limb holds 90 (or 45) degrees for full 10 secs 6a. Motor Leg, Left 0-->No drift: leg holds 30 degree position for full 5 secs 6b. Motor Leg, right 0-->No drift: leg holds 30 degree position for full 5 secs 7. Limb Ataxia 0-->Absent 8. Sensory 1-->[id number] sensory loss: patient feels pinprick is less sharp or is dull on the affected side: or there is a loss of superficial pain with pinprick, but patient is aware of being touched 9. Best Language 0-->No aphasia: normal 10. Dysarthria 1-->[id number] dysarthria: patient slurs at least some words and, at worst, can be understood with some difficulty 11. Extinction and Inattention 1-->Visual, tactile, auditory, spatial, or personal inattention orextinction to bilateral simultaneous stimulation in one of the sensory modalities Total 7 Vital Signs: Temp: [97.9 ??F (36.6 ??C)-98.8 ??F (37.1 ??C)] 98.5 ??F (36.9 ??C) Pulse: [79] 79 Heart Rate: [67-89] 71 Resp: [11-31] 17 BP: (145-187)/(65-103) 161/88 SpO2: [92 %-100 %] 94 % General: Awake and alert, not in any acute distress, cooperative ?? Neuro: Mental status: Awake, alert, attentive, oriented x3 (except for states Nov ). Speech is fluent, comprehension and repetition intact. Mild dysarthria. Good historian. Cranial nerves: Pupils equal and reactive. EOMI except for slight abduction defecit L left eye, Visual field testing shows left lower quadrantanopia, left central 7th nerve palsy, left face numb to light touch, tongue deviates rightward, hearing intact to normal conversation voice Motor: Increased tone LUE. Left shoulder abduction and elbow extension weakness at 4-/5. Left hand wrist extension and interossei 0/5. Finger flexion 4-/5. Thumb slight wiggle. Right arm and leg strength 5/5 Reflexes: Symmetric 2+ throughout, left toe upgoing and right toe mute Sensory: intact to light touch in the legs and arms, but neglects the left leg and left arm with double simultaneous stimultaneous stimulation. left face completely numb to LT Coordination: Finger to nose intact on right, very slow on left due to left arm weakness but not obviously ataxic, normal heel-solomon test bilaterally Gait: deferred on bedrest after TPA Labs/Studies: CBC: Recent Labs Lab 03/02/181737 WBC 11.2* RBC 5.16 HGB 15.3 HCT 46.1 PLT 230 Basic Metabolic Panel: Recent Labs Lab Test 03/03/18 0550 03/02/18 1738 06/04/16 0740 06/03/16 0638 NA 143 141 -- 141 POTASSIUM 3.6 3.5 -- 3.9 CHLORIDE 109 107 -- 108 CO2 28 26 -- 26 BUN 10 13 -- 8 CR 0.80 0.85 0.99 0.91 GLC 135* 170* -- 131* DEANDRA 8.6 8.5 -- 7.9* Liver panel: Recent Labs Lab Test 03/03/18 0550 05/31/16 2041 01/09/14 0445 PROTTOTAL 7.1 7.1 7.7 ALBUMIN 3.5 3.6 3.7 BILITOTAL 0.7 0.4 0.8 ALKPHOS 132 104 107 AST 19 21 15 ALT 30 32 29 INR: Recent Labs Lab Test 03/02/18 1738 INR 0.97 Lipid Profile: Recent Labs Lab Test 03/03/18 0550 CHOL 137 HDL 58 LDL 59 TRIG 100 A1C: Recent Labs Lab Test 03/03/18 0550 A1C 6.1* Troponin I: Recent Labs Lab Test 03/03/18 0550 03/02/18 2340 03/02/18 1738 TROPI <0.015 <0.015 <0.015 Imaging: CTA head and neck 03/03/18: IMPRESSION: Normal neck and head CTA. Specifically, no definite occluded vessel noted to account for the perfusion defect at the posterior aspect of the right frontal lobe noted on the accompanying CT perfusion study. ?? CT head 03/03/18: IMPRESSION: Diffuse cerebral volume loss and cerebral white matter changes consistent with chronic small vessel ischemic disease. No evidence for acute intracranial pathology. CT-Perfusion head 03/03/18 IMPRESSION: There is a small area of delayed arrival of the contrast bolus at the posterolateral aspect of the right frontal lobe that could represent an area of ischemia. No other perfusion defects. 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 The patient had worsening of his stroke deficit since TPA started. NIHSS on telemedicine was 3, now 7. Recommendations: Acute Ischemic Stroke (post tPA) Recommendations - Close monitoring and neurochecks for any evidence of hemorrhagic transformation or allergic reaction - Euthermia, Euglycemia - Head of bed elevated - Hold aspirin and pharmacologic DVT prophylaxis for at least 24 hrs post-tPA - Statin - can decrease from 40mg back down to his home dose of 20mg as his LDL is already low at 59. - Repeat HCT 24 hrs post-tPA ( will start aspirin 325mg if no bleed) - Check brain MRI - Telemetry, EKG - Bedside Glucose Monitoring - PT/OT/PROCEDURE TECH - PM&R - Stroke Education - Maintain SBP in 140-180 range for now given the increase in symptoms he experienced. Consider lowering in ~24 hours, will make recs after examining patient tomorrow Patient Follow-up - final recommendation pending work-up Stroke Education provided including signs/symptoms of a stroke and the importance of timely treatment. Please contact the Stroke Service with any questions. Hailee Peralta PA-C Neurology 03/03/2018 9:32 AM I personally reviewed all relevant labs and neuroimaging. I spent 50 minutes reviewing labs, diagnostic studies, neuroimaging, and evaluating the patient. PHONE SUPERVISOR Associated attestation - Isauro Montes De Oca MD - 03/04/2018 1:20 AM TELEPHONE SUPERVISOR VASCULAR NEUROLOGY ATTENDING ATTESTATION Admission Summary Nicolette Dickson is 67 year old male who presents with left hemiparesis on 03/02/2018 to [facility] s/p IV tPA with improvement in his symptoms. MRI Brain reveals scattered infarcst within the R. MCAterritory, primarily watershed. CTA Head/Neck unrevealing. Stroke Evaluation: TTE: EF 60-65%, mild LVH, no wma, normal left atrium, no PFO LDL 59 A1c 6.1 Tele: unrevealing Impression: 1. ESUS s/p IV tPA Recommendations: 1. Aspirin 325mg 2. Atorvastatin 20mg 3. Telemetry, 30 day cardiac monitoring with MCOT Patch if unvrealing 4. BP goal < 140/90 5. PT/OT/Speech 6. 24 hours post-TPA restart aspirin as above. Ok to transfer to floor with q4 hour neurochecks Please call with questions. Isauro Montes De Oca MD, MS Neurology Please contact the Stroke Service with any questions: link to Text page I saw Nicolette Dickson March 03, 2018 as part of a shared [employer]PA visit. I reviewed all laboratory studies and neuroimaging. My gallegos exam findings and management decisions carried out under my directionare detailed above. I spent 30 minutes of critical care time managing his ischemic stroke s/p IV thro mbolysis. documented in this encounter H&P Notes Keira Gaytan MD - 03/02/2018 10:[address] [facility] History and Physical Hospitalist Date of Admission: 03/02/2018 Assessment & Plan Nicolette Dickson is a 67 year-old male with past medical history of obstructive sleep apnea, hyperlipidemia and hypertension who presents with acute onset left arm weakness, slurred speech, facial droop found to have acute ischemic stroke status post TPA. Admitted on 03/02/2018 as transfer from [facility] for post-TPA cares. Acute ischemic stroke, right frontal lobe, s/p tPA Hyperlipidemia Presented with acute onset left arm weakness, slurred speech, facial droop. CT head negative, CT perfusion study with small area and right frontal lobe suggestive of ischemia. CTA head and neck no significant occlusions or stenoses. No known history of atrial fibrillation. - Sinus rhythm on telemetry, however does not appear to have had EKG yet. Will obtain EKG for baseline. - Neurocritical care consulted - MRI brain - Echocardiogram with bubble study - Treat blood pressure with goal less than 180/105. As needed hydralazine IV ordered and may use nicardipine drip if needed. - Close monitoring and neuro checks post TPA per protocol - Telemetry - PT/OT/speech - N.p.o. pending speech therapy given facial droop - IV fluids - Hemoglobin A1c, lipid panel in a.m. Serial troponins per neurology recommendations - Hold aspirin / anticoagulation until cleared by neurology - Increase atorvastatin to 40 mg at bedtime once able to tolerate p.o. Hypertension - Prior to admission on amlodipine 10 mg daily, hold pending ability to tolerate p.o. Obstructive sleep apnea Compliant with CPAP - Continue CPAP with home settings DVT Prophylaxis: Pneumatic Compression Devices Code Status: Full Code Disposition: Admit to inpatient, to ICU for post- tPA monitoring. Anticipate greater than or equal to 2 midnights prior to discharge. Time Spent on this Encounter Patient is critically ill due to acute ischemic stroke requiring TPA, and subsequent need close monitoring due to high risk for decompensation including risk of hemorrhage. I spent 45 minutes managing the critical care of Nicolette Dickson in relation to the issues listed in this note. Keira Gaytan Primary Care Physician [facility] Chief Complaint Left arm weakness, slurred speech for 1 day History is obtained from the patient History of Present Illness Nicolette Dickson is a 67 year old male who presents with the above chief complaint. Patient reports that he was in his usual state of health the day of admission when he laid down for a nap at about 3 PM. He woke up at around 3:45 PM, and noted that he was able to lift his left arm but is weaker than usual and he did not have control over his hand. He spoke to his who noted thathis speech seemed to be slurred at that time. He subsequently presented to the [facility] emergency department for further evaluation. There a code stroke was called and he was evaluated remotely by neurology. CT head showed findings consistent with chronic small vessel ischemic disease. CT brainshowed a small perfusion defect at the posterolateral aspect of the right frontal lobe consistent with possible ischemia. CTA head/neck showed patent vessels. After discussion with family, the decisionwas made to receive TPA. He had a slight facial droop receiving TPA which seemed to be worse after receiving the medication and therefore he underwent repeat head CT prior to transfer which was negative for hemorrhage. He reports presently that his left arm feels perhaps slightly stronger since symptom onset although he continues to have a facial droop and slurred speech. He denies any prior history of stroke or mini stroke. He denies any known history of atrial fibrillation. He is a non-smoker. Past Medical History I have reviewed this [...] ??? GENITOURINARY SURGERY ??? ORTHOPEDIC SURGERY ??? [place] teeth extraction Prior to Admission Medications Prior to Admission Medications Prescriptions Last Dose Informant Patient Reported? Taking? Probiotic Product (PROBIOTIC DAILY PO) 03/01/2018 at pm Yes Yes Sig: Take 1 tablet by mouth every evening amLODIPine (NORVASC) 10 MG tablet 03/02/2018 at am Yes Yes Sig: Take 10 mg by mouth daily aspirin 81 MG tablet 03/01/2018 at pm Yes Yes Sig: Take 81 mg by mouth every evening atorvastatin (LIPITOR) 20 MG tablet 03/01/2018 at pm Yes Yes Sig: Take 20 mg by mouth every evening magnesium oxide (MAG-OX) 400 MG tablet 03/01/2018 at pm Yes Yes Sig: Take 400 mg by mouth every evening multivitamin, therapeutic (THERA-VIT) TABS 03/01 or 03/02 Yes Yes Sig: Take 1 tablet by mouth daily Facility-Administered Medications: None Allergies No Known Allergies Social History Non smoker. Denies alcohol use. No illicit or IV drug use Lives in [place] with his . Family History I have reviewed this patient's family history and updated it with pertinent information if needed. Family History Problem Relation Age of Onset ??? Abdominal Aortic Aneurysm Mother ??? Coronary Artery Disease Father ??? Other Cancer Father Denies family history of stroke in primary relatives Review of Systems The 10 point Review of Systems is negative other than noted in the HPI or here. Physical Exam Vital Signs with Ranges Temp: [97.9 ??F (36.6 ??C)] 97.9 ??F (36.6 ??C) Pulse: [79] 79 Heart Rate: [67-89] 86 Resp: [16-18] 16 BP: (150-187)/(65-95) 156/88 SpO2: [94 %-100 %] 96 % 0 lbs 0 oz Constitutional: NAD Eyes: PERRL, EOMI HENT: Oropharynx clear, MMM Respiratory: Clear to auscultation bilaterally, good air movement, normal effort Cardiovascular: RRR, no m/r/g. No peripheral edema. GI: Soft, non-tender, non-distended. No rebound tenderness or guarding. BS normoactive. Skin: Warm, dry Neurologic: Alert. Responding to questions appropriately. Following commands. Left facial droop. Tongue midline. 5/5 upper and lower extremity strength on the right and in the left lower extremity. Able to raise left arm and hold above bed, but unable to supinate hand. No quality analyst squeeze on the left. Intact heal-solomon testing symmetric bilaterally. Psychiatric: Normal affect, appropriate Data Data reviewed today: I personally reviewed no images or EKG's today. Recent Labs Lab 03/02/18 1738 WBC 11.2* HGB 15.3 MCV 89 PLT 230 INR 0.97 NA 141 POTASSIUM 3.5 CHLORIDE 107 CO2 26 BUN 13 CR 0.85 ANIONGAP 8 DEANDRA 8.5 GLC 170* TROPI <0.015 Recent Results (from the past 24 hour(s)) CT Head w/o Contrast Narrative CT OF THE HEAD WITHOUT CONTRAST 03/02/2018 5:49 PM COMPARISON: None. HISTORY: Code stroke, left side weakness. TECHNIQUE: [address] images of the head were acquired without IV contrast material. FINDINGS: There is moderate diffuse cerebral volume loss. There are subtle patchy areas of decreased density in the cerebral white matter bilaterally that are consistent with sequela of chronic small vessel ischemic disease. The ventricles and basal cisterns are within normal limits in configuration given the degree of cerebral volume loss. There is no midline shift. There are no extra-axial fluid collections. No intracranial hemorrhage, mass or recent infarct. The visualized paranasal sinuses are well-aerated. There is no mastoiditis. There are no fractures of the visualized bones. Impression IMPRESSION: Diffuse cerebral volume loss and cerebral white matter changes consistent with chronic small vessel ischemic disease. No evidence for acute intracranial pathology. Radiation dose for this scan was reduced using automated exposure control, adjustment of the mA and/or kV according to patient size, or iterative reconstruction technique CTA Head Neck with Contrast Narrative CT ANGIOGRAM OF THE HEAD AND NECK WITHOUT AND WITH CONTRAST 03/02/2018 5:55 PM COMPARISON: None. HISTORY: Code stroke; left side weakness. TECHNIQUE: Precontrast localizing scans were followed by CT angiography with an injection of 70 mL [id number]-370 nonionic intravenous contrast material with scans through the head and neck. Images were transferred to a separate 3-D workstation where multiplanar reformations and 3-D images were created. Estimates of carotid stenoses are made relative to the distal internal carotid artery diameters except as noted. FINDINGS: Neck CTA: The common carotid arteries bilaterally are tortuous but are patent without stenosis. The cervical internal carotid arteries bilaterally are tortuous but are patent without stenosis. The vertebral arteries bilaterally are tortuous but are patent without stenosis. Head CTA: The basilar, bilateral distal internal carotid, bilateral anterior cerebral, bilateral middle cerebral and bilateral posterior cerebral arteries are patent and unremarkable. The anterior communicating and right posterior communicating arteries are patent and unremarkable. Impression IMPRESSION: Normal neck and head CTA. Specifically, no definite occluded vessel noted to account for the perfusion defect at the posterior aspect of the right frontal lobe noted on the accompanying CT perfusion study. This imaging study was discussed with the ordering physician, Dr. Caesar Gonzalez, by Dr. Dawson on 03/02/2018 6:09 PM. Radiation dose for this scan was reduced using automated exposure control, adjustment of the mA and/or kV according to patient size, or iterative reconstruction technique CT Head Perfusion w Contrast Narrative CT BRAIN PERFUSION 03/02/2018 5:58 PM COMPARISON: None HISTORY: Code stroke. TECHNIQUE: Time sequential axial CT images of the head were acquired during the administration of intravenous contrast (50 mL [id number]-370). CTA images of the [place] as well as color perfusion maps of the brain were created from this time sequential axial source data. Impression IMPRESSION: There is a small area of delayed arrival of the contrast bolus at the posterolateral aspect of the right frontal lobe that could represent an area of ischemia. No other perfusion defects. This imaging study, including the abnormal finding of small posterior right frontal perfusion defect, was discussed with the ordering physician, Dr. Caesar Gonzalez, by Dr. Dawson on 03/02/2018 6:08 PM. Radiation dose for this scan was reduced using automated exposure control, adjustment of the mA and/or kV according to patient size, or iterative reconstruction technique CT Head w/o Contrast Narrative CT OF THE HEAD WITHOUT CONTRAST 03/02/2018 9:20 PM COMPARISON: Head CT same day. HISTORY: Stroke symptoms, left arm weak. Got TPA, now facial droop. TECHNIQUE: [address] images of the head were acquired without IV contrast material. FINDINGS: There is moderate diffuse cerebral volume loss. There are subtle patchy areas of decreased density in the cerebral white matter bilaterally that are consistent with sequela of chronic small vessel ischemic disease. The ventricles and basal cisterns are within normal limits in configuration given the degree of cerebral volume loss. There is no midline shift. There are no extra-axial fluid collections. No intracranial hemorrhage, mass or recent infarct. The visualized paranasal sinuses are well-aerated. There is no mastoiditis. There are no fractures of the visualized bones. Impression IMPRESSION: Diffuse cerebral volume loss and cerebral white matter changes consistent with chronic small vessel ischemic disease. No evidence for acute intracranial pathology. No change from the recent comparison study. Radiation dose for this scan was reduced using automated exposure control, adjustment of the mA and/or kV according to patient size, or iterative reconstruction technique PHONE SUPERVISOR documented in this encounter Consult Notes Lu Lau LSW - 03/05/2018 11:39 AM CSTAssociated Order(s): SOCIAL WORK IP CONSULT Care Transition Initial Assessment - SW Reason For Consult: discharge planning, facility placement Met with: Reviewed chart. Active Problems: Stroke (cerebrum) (H) DATA Lives With: spouse Living Arrangements: house Description of Support System: Involved, Supportive Who is your support system?: Support Assessment: Adequate family and caregiver support. Identified issues/concerns regarding health management: PT/OT recommend ARU. Referral sent via DOD, protocol. Tariq from ARU met with pt, who is in agreement. Anticipate bed available Saturday or Saturday. SW will follow for discharge planning. Transportation Available: family or friend will provide ASSESSMENT Cognitive Status: Alert and oriented per nursing. Concerns to be addressed: On-going discharge planning. PLAN Financial costs for the patient includes: None. Patient given options and choices for discharge: Yes. Patient/family is agreeable to the plan? YES Patient Goals and Preferences: ARU. Patient anticipates discharging to: ARU. Lu Lau, COCOA BUTTER FILTER OPERATOR, [employer] SETTER [id number] PHONE SUPERVISOR documented in this encounter Miscellaneous Notes Plan of Care - Meño Cabral RN - 03/08/2018 11:08 AM CST Problem: Patient Care Overview Goal: Plan of Care/Patient Progress Review Outcome: Adequate for Discharge Date Met: 03/08/18 Pt alert and oriented x4. VSS. Tele NSR. Neuros with slight L facial droop, LUE weakness and drift. CMS intact. Lung sounds clear. Tolerating DD3 diet with thin liquids. Ambulating with asst of 1 and GB. Reviewed written discharge instructions including stroke risk factors and f/u appts. Pt d/watson to [facility] with family providing transport. Report called to receiving RN. PHONE SUPERVISOR Plan of Care - Latonya Rosales, PROCEDURE TECH - 03/08/2018 11:08 AM CST Problem: Patient Care Overview Goal: Plan of Care/Patient Progress Review Outcome: Adequate for Discharge Date Met: 03/09/18 Speech Language Therapy Discharge Summary Reason for therapy discharge: Discharged to acute rehabilitation facility. Progress towards therapy goal(s). See goals on Care Plan in [facility] electronic health record for goal details. Goals partially met. Barriers to achieving goals: discharge from facility. Therapy recommendation(s): Continued therapy is recommended. Rationale/Recommendations: Recommend continuation of swallow Tx tomaximize swallow function and advance diet as indicated. Recommend completion of cognitive-communication evaluation. . Pt completed swallowing Tx on 03/08/18. Pt tolerated 1 cracker and 5 sips of water by cup. No overt s/sx of aspiration noted. Pt demonstrated increased oral transit time with cracker, demonstrating prolonged mastication. Pt required min cues to alternate solids/liquids during po intake. Pt completed x10 reps of x5 oropharyngeal strengthening exercises. Lingual and labial fatigue was observed as number of repetitions increased. Despite max cues, pt unable to sustain bite hold on tongue necessary to complete Chio exercise. Recommend continuation of Dysphagia Diet Level 3 with thin liquids. Recommend continuation of swallowing Tx to maximize swallow function and advance diet as indicated, as well as completion of cognitive-communication evaluation PHONE SUPERVISOR Plan of Care - Rachael Givens - 03/08/2018 10:15 AM CST Problem: Patient Care Overview Goal: Plan of Care/Patient Progress Review PT: per nursing, pt is discharging to acute rehab at 11:00 AM today and wants to rest before he leaves. Physical Therapy Discharge Summary Reason for therapy discharge: Discharged to acute rehabilitation facility. Progress towards therapy goal(s). See goals on Care Plan in [facility] electronic health record for goal details. Goals not met. Barriers to achieving goals: discharge from facility. Therapy recommendation(s): Continued therapy is recommended. Rationale/Recommendations: Pt would benefit from further time intensive therapy to increase his functional activity tolerance in transfers and ambulation prior to discharging home. PHONE SUPERVISOR Plan of Care - Maegan Maciel OT - 03/08/2018 9:37 AM CST Problem: Patient Care Overview Goal: Plan of Care/Patient Progress Review Eligibility Consultant OT Patient plan for discharge: ARU, leaving at 11 today Current status: Patient is progressing well, but still needing cues due to L inattention. Completed BUE 2# dowel exercises and shoulder/scapula exercises. Does better with mirror in front of him for visual cue of his form, as he sometimes neglects L side with exercises. Barriers to return to prior living situation: falls risk, impaired swallowing, L neglect, impaired ADL and IADL Recommendations for discharge: ARU Rationale for recommendations: Patient will benefit from daily intensive therapies and cognitive assessment-CPT. Entered by: Maegan Maciel 03/08/2018 9:35 AM Comments: Occupational Therapy Discharge Summary Reason for therapy discharge: Discharged to acute rehabilitation facility. Progress towards therapy goal(s). See goals on Care Plan in [facility] electronic health record for goal details. Goals partially met. Barriers to achieving goals: discharge from facility. Therapy recommendation(s): Continued therapy is recommended. Rationale/Recommendations: Continue OT at ARU for neuro re-education, cognitive assessment, ADL and IADL re-training. PHONE SUPERVISOR Plan of Care - Latonya Rosales SLP - 03/08/2018 9:19 AM CST Problem: Patient Care Overview Goal: Plan of Care/Patient Progress Review Eligibility Consultant PROCEDURE TECH Patient plan for discharge: Pt reported discharge to [facility] later this date. Current status: Pt completed swallowing Tx this AM. Pt tolerated 1 cracker and 5 sips of water by cup. No overt s/sx of aspiration noted. Pt demonstrated increased oral transit time with cracker, demonstrating prolonged mastication. Pt required min cues to alternate solids/liquids during po intake. Ptcompleted x10 reps of x5 oropharyngeal strengthening exercises. Lingual and labial fatigue was observed as number of repetitions increased. Despite max cues, pt unable to sustain bite hold on tongue necessary to complete Chio exercise. Recommend continuation of Dysphagia Diet Level 3 with thin liquids. Recommend continuation of swallowing Tx to maximize swallow function and advance diet as indicated, as well as completion of cognitive-communication evaluation. Barriers to return to prior living situation: Level of assist, weakness Recommendations for discharge: [facility] Rationale for recommendations: Continue Swallow Tx and recommend completion of speech/language/cogntive evaluation at the next level of care. Patient will benefit from intense therapy to return to baseline function. He has good participation and family support. Entered by: Latonya Rosales 03/08/2018 9:17 AM PHONE SUPERVISOR Plan of Care - Pao Gonzalez RN - 03/08/2018 6:18 AM CST Problem: Patient Care Overview Goal: Plan of Care/Patient Progress Review Outcome: Improving A&O x4. Agitated and short with nursing at start of shift, become more pleasant as night went on. Left facial droop, LUE weakness 4/5 and left drift present. No left field cut observed. Elevated BP, but within parameters, other VSS on CPAP. Tele NSR. DD3 diet with thin liquids. Up with SBA w/ GB. Reported mild back pain during night, resolved with PRN Tylenol. Plan to discharge to?? ARU?? At 11am. Family to transport. Continue monitoring. PHONE SUPERVISOR Plan of Care - Maegan Bowen RN - 03/07/2018 10:31 PM CST Problem: Patient Care Overview Goal: Plan of Care/Patient Progress Review Outcome: Improving A&O x 4. Left facial droop. LUE hemiparesis/ataxic. VSS. Tele NSR. DD3/thin liquid diet. Up with1 with belt. Denies pain. Plan discharge to ARU tomorrow at 11:00 am via family. ?? PHONE SUPERVISOR Plan of Care - Sammy Coats RN - 03/07/2018 2:53 PM CST Problem: Patient Care Overview Goal: Plan of Care/Patient Progress Review Outcome: Improving VSS, except HTN. MD ordered HTZ to remove excess fluid. A+Ox4. Neuros progressing; able to move leftarm over his head. No neuro deficit in LLE. PT x3 today. OT today. Standby to bathroom. No wounds. Eating and voiding well. PHONE SUPERVISOR Plan of Care - Kay Potter SLP - 03/07/2018 2:05 PM CST Problem: Patient Care Overview Goal: Plan of Care/Patient Progress Review Outcome: Therapy, progress toward functional goals as expected Eligibility Consultant PROCEDURE TECH Patient plan for discharge: acute rehab tomorrow Current status: Patient seen for dysphagia treatment. RN reports no swallowing concerns on current dysphagia diet level 3 with thin liquids. Patient consumed 1/2 chang cracker square and 2-3 oz water by straw. No overt aspiration signs occurred. Note slow but functional mastication of solid texture and no oral residue remained. Provided further instruction about diet modifications and provided printed handout with menu items. Patient to discharge to ARU tomorrow. Recommend continue dysphagia diet level 3 with thin liquids given swallow strategies (up in chair, small single sips/bites, alternate food/drink, check for oral residue). Recommend continued ST for swallowing and further diet advancementand cognitive-communication evaluation as indicated. Barriers to return to prior living situation: Level of assist, weakness Recommendations for discharge: ARU with PROCEDURE TECH services Rationale for recommendations: Continue with skilled PROCEDURE TECH intervention for swallowing and complete a speech/language/cogntive evaluation at the next level of care. Patient will benefit from intense therapy to return to baseline function. He has good participation and family support Entered by: Kay Potter 03/07/2018 2:03 PM PHONE SUPERVISOR Plan of Care - Torri Allen, PT - 03/07/2018 11:58 AM CST Problem: Patient Care Overview Goal: Plan of Care/Patient Progress Review Eligibility Consultant PT Patient plan for discharge: ARU Current status: Pt making great progress in therapy. Focus on gait training with BOARD WINDER LUE progressingto no UE support, close CGA, cues for improved gait mechanics and LLE ft clearance, good improvementnoted. Avoided objects on L side of hallway well. No lateral path deviation or LOB. Pt engaged in static and dynamic balance activities Barriers to return to prior living situation: A X 1 for mobility, impaired dynamic balance, strength Recommendations for discharge: ARU Rationale for recommendations: ARU to improve above impairments as pt below baseline at this time Entered by: Torri Allen 03/07/2018 11:56 AM PHONE SUPERVISOR Plan of Care - Maegan Maciel, OT - 03/07/2018 8:04 AM CST Problem: Patient Care Overview Goal: Plan of Care/Patient Progress Review Eligibility Consultant OT Patient plan for discharge: ARU Current status: CGA with transfers and ambulation without AD. Patient does not like the walker and may benefit more from a cane/quad cane. Completed standing ADL tasks with overall SBA. Needs Min A forUE dressing and overall Mod A for LE dressing. Cues needed, as patient still has some mild L inattention. Barriers to return to prior living situation: Falls risk, impaired ADL, L inattention, impaired mobility Recommendations for discharge: ARU Rationale for recommendations: Patient would benefit from daily intensive PT/OT/PROCEDURE TECH. Entered by: Maegan Maciel 03/07/2018 8:02 AM PHONE SUPERVISOR Plan of Care - Bre Romano RN - 03/07/2018 5:58 AM CST Problem: Patient Care Overview Goal: Plan of Care/Patient Progress Review Outcome: No Change A&Ox4. VSS on RA. Tele NSR. Neuros slight L facial droop, left field cut, LUE hemiparesis/ataxic, weak?? L hand quality analyst, LUE neglect at times, improving. Speech clear. Denies ARMSTRONG. No N&V. CMS intact. Tolerating DD3 with thin liquid. +BS. Voiding adequately to B/R. Up assist x1 with walker+GB. UsedCPAP overnight. Expected discharge to ARU today. Nursing continue to monitor. PHONE SUPERVISOR Plan of Care - Cassie Arreola RN - 03/06/2018 9:52 PM CST Problem: Patient Care Overview Goal: Plan of Care/Patient Progress Review Outcome: Improving A&O times 4. Left facial drop, left UE hemiparesis and ataxia, left leg slightly weaker than R, left neglect, left field cut, improving. VSS. Tele NSR. DD3 diet with thin liquids, good appetite. Upwith assist of one with GB and walker. Denies pain. Plan to discharge to ARU. PHONE SUPERVISOR Plan of Care - Rachael Diaz, PT - 03/06/2018 2:44 PM CST Problem: Patient Care Overview Goal: Plan of Care/Patient Progress Review PT: Eligibility Consultant PT Patient plan for discharge: ARU Current status: Patient sitting in chair upon arrival of therapist, agreeable to working with PT. Mod to max A to vu pants while sitting in chair due to gripper socks catching on pants. Sit<>stand with CGA and platform walker; mod A to assist in pulling up pants with more assistance needed on L. Patient ambulated 500 feet with use of platform walker and CGA; slow reciprocal gait noted. Patient with decreased heel strike and foot clearance on L, becoming more prominent with further gait 2/2 to fatigue. Patient's path veering towards left periodically during gait and bumping into objects x 2 during gait. Patient in chair at end of session with all needs in reach and chair alarm on. Barriers to return to prior living situation: current level of assist, balance deficits, falls risk Recommendations for discharge: ARU Rationale for recommendations: Patient continues to be motivated to work with therapy. Patient wouldbenefit from continued intensive skilled therapy to further improve strength, higher level balance, and independence with mobility and ambulation to address functional limitations and decreased risk offalls. Entered by: Rachael Diaz 03/06/2018 2:39 PM PHONE SUPERVISOR Plan of Care - Abiola Banda SLP - 03/06/2018 2:15 PM CST Problem: Patient Care Overview Goal: Plan of Care/Patient Progress Review Eligibility Consultant PROCEDURE TECH Patient plan for discharge: ARU Current status: Swallow Tx was provided this pm. Patient demonstrated decreased left oral motor ROM during oral motor exercises and po trials. No overt signs of aspiration were observed after po trialsgiven min-mod cues to use strategies. Proress made toward goal with possible diet upgrade over the next few days. Recommend a continued dysphagia diet level 3 with thin liquids with reminders to use the following safe swallow strategies: sit up in a chair for all meals, small bites/sips, check for oral residue and alternate liquids/solids. Plan to continue PROCEDURE TECH swallow Tx for swallow strategy training, oral motor exercises, and trials of regular solids as indicated. Barriers to return to prior living situation: Level of assist, weakness Recommendations for discharge: ARU with PROCEDURE TECH services Rationale for recommendations: Continue with skilled PROCEDURE TECH intervention for swallowing and complete a speech/language/cogntive evaluation at the next level of care. Patient will benefit from intense therapy to return to baseline function. He has good participation and family support Entered by: Abiola Rivera 03/06/2018 2:11 PM PHONE SUPERVISOR Plan of Care - Anabel Bowen RN - 03/06/2018 2:03 PM CST Problem: Patient Care Overview Goal: Plan of Care/Patient Progress Review Outcome: Improving Nursing note Pt a/o x 4, up with assist of 1/gb/walker to the BR. Had BM this morning. Pt denies any dizziness orlightheadedness. Pt c/o L shoulder pain rating it 4/10, received tylenol. Pt denies any n/v. Tele isNSR. pt have L sided hemiparesis is improving. Pt have L facial droop. PT/OT following. VSS.BP 140/75 (BP Location: Right arm) Pulse 66 Temp 98 ??F (36.7 ??C) (Oral) Resp 16 Wt 112.5 kg (248 lb) SpO2 95% BMI 36.62 kg/m2 Will continue to monitor. PHONE SUPERVISOR Plan of Care - Medina Malcolm OT - 03/06/2018 11:47 AM CST Problem: Patient Care Overview Goal: Plan of Care/Patient Progress Review Eligibility Consultant OT Patient plan for discharge: ARU Current status: Pt educated in technique of UE dressing. Required 3 attempts for accurate shirt placement and L UE limb awareness (kept falling out of shirt), continued with education on technique, will need reminders and more attempts. Pt instrucuted in continuation of sponge exercises for L hand and encourged to move onto the yellow theraputty for item retrieval to encourage even further FM precision. Pt reports been getting lots of movement and doing exercises Barriers to return to prior living situation: decreased strength, visual field cut, limited LUE awareness and use Recommendations for discharge: ARU Rationale for recommendations: Pt requiring extra assistance to complete ADLs and integrate LUE intoroutines. Would recommend continued skilled OT intervention to optimize recovery and independence with all ADLs and IADLs Entered by: Medina Malcolm 03/06/2018 11:45 AM PHONE SUPERVISOR Plan of Care - Medina Malcolm OT - 03/06/2018 10:32 AM CST Problem: Patient Care Overview Goal: Plan of Care/Patient Progress Review OT: Attempted OT session, pt just got back to bed from OOB activity. Pt and nurse report great gainstoday and feeling well. Will attempt again as schedule allows. PHONE SUPERVISOR Plan of Care - Bre Romano RN - 03/06/2018 6:06 AM CST Problem: Patient Care Overview Goal: Plan of Care/Patient Progress Review Outcome: Improving Pt A&Ox4. VSS on RA. BP within parameters. Tele NSR. Used CPAP overnight for CARLOS. Speech clear/logicall. Neuros left facial droop, slight tongue deviation to left, left field cut, LUE hemiparesis/drift. Strong strength to BLE. CMS intact. Up assist x1 with walker+GB. Ambulated to B/R multiple times. Tolerating DD3 with thin liquid. +BS. Voiding adequately to B/R. Gave PRN Tylenol for left shoulder sore/pain with some relief. Uses cold packs. PT/OT/PROCEDURE TECH following. Plan to discharge to ARU when stable. Nursing continue to monitor. PHONE SUPERVISOR Plan of Care - Mayi Emerson RN - 03/05/2018 7:17 PM CST Problem: Patient Care Overview Goal: Plan of Care/Patient Progress Review Outcome: Improving Pt a/ox4 with VSS and CMS intact. Neuros with L droop, L tongue deviation, LUE hemiparesis, ataxia and drift. L side neglect and field cut. On tele in SR. L shoulder pain managed with PRN tylenol and ice. Tolerating DD3 with thin diet. Up in room with 1, GB and platform walker. Voiding in BR. Plan fordischarge to ARU pending. PHONE SUPERVISOR Plan of Care - Rhona Walsh SLP - 03/05/2018 4:17 PM CST Problem: Patient Care Overview Goal: Plan of Care/Patient Progress Review Outcome: Therapy, progress toward functional goals as expected Eligibility Consultant PROCEDURE TECH Patient plan for discharge: ARC Current status: Patient was seen for swallow treatment towards the last few bites of his lunch. His reports good tolerance of the diet. He was willing to have a trial of a solid with slow, but sufficient mastication, with minimal to mild oral residue in the left lateral sulci. Independently searching for residue material. Improved sensation and bolus control from initial evaluation. Tolerated thin liquids via the cup and straw without overt Sx of aspiration. He completed several lingual/labial exercises. Fatigue may still impact swallow/speech function. Recommend: 1. Advance diet to a DDL 3 with thin liquids. 2. Up in a chair for all meals, small bites/sips, check for oral residue and alternate liquids/solids. 3. PROCEDURE TECH will f/u for diet tolerance, swallow strategies and strengthening. Barriers to return to prior living situation: Acute stroke deficits. Recommendations for discharge: [facility] Rationale for recommendations: Continue with skilled ST intervention for swallowing and complete a speech/language/cogntive evaluation at the next level of care. Patient will benefit from intense therapy to return to baseline function. He has good participation and family support. Entered by: Rhona Walsh 03/05/2018 4:13 PM PHONE SUPERVISOR Plan of Care - Anabel Bowen RN - 03/05/2018 2:11 PM CST Problem: Patient Care Overview Goal: Plan of Care/Patient Progress Review Outcome: Improving Nursing note Pt a/o x 4, up with assist of 1/gb/walker to the BR. Pt denies any dizziness or lightheadedness. Pt c/o L shoulder pain rating it 7/10, received tylenol. Pt denies any n/v. Tele is NSR. Neuro morocho pt have L sided hemiparesis with LUE worst than the LLE. Pt have L facial droop. PT/OT following. Last vital signs.BP 136/76 (BP Location: Left arm) Pulse 66 Temp 97.3 ??F (36.3 ??C) (Oral) Resp 18 Wt 110.8 kg (244 lb 3.2 oz) SpO2 93% BMI 36.06 kg/m2 Will continue to monitor. PHONE SUPERVISOR Plan of Care - Latonya Ellison - 03/05/2018 1:04 PM CST Problem: Patient Care Overview Goal: Plan of Care/Patient Progress Review Eligibility Consultant PT Patient plan for discharge: Acute Rehab Current status: Patient performed supine>sit with Mod A of 1 for trunk and leg management. Sit<>stand with CGA. Attached L platform to FWW; ambulated 300 feet with CGA and FWW. Verbal cues needed for L sided obstacles. Seated R arm reaching tasks for core strengthening. Barriers to return to prior living situation: below PLOF, falls risk, requires assistance with all functional mobility Recommendations for discharge: Acute Rehab Rationale for recommendations: Patient would benefit from intensive PT for increasing strength and balance, improving activity tolerance, and improving left sided awareness. Patient is highly motivatedand has supportive family structure. Entered by: Latonya Ellison 03/05/2018 12:58 PM PM Session: Patient ambulated 500 with FWW and CGA. Standing reaching exercises to address strengthening and balance. Patient was able to follow multi step commands. PHONE SUPERVISOR Plan of Care - Rhona Walsh, PROCEDURE TECH - 03/05/2018 11:12 AM CST Problem: Patient Care Overview Goal: Plan of Care/Patient Progress Review PROCEDURE TECH: Patient just visiting with Tariq from [facility] at time of attempt. Will return around noon as able to assess for diet tolerance. PHONE SUPERVISOR Plan of Care - Gail Acosta OTA - 03/05/2018 10:30 AM CST Problem: Patient Care Overview Goal: Plan of Care/Patient Progress Review Eligibility Consultant OT Patient plan for discharge: none stated ?? Current status: pt educated on LUE FMC/strengthening exercises with pink sponge and provided with handouts for additional activities to complete with LUE to progress independence for ADLS. Pt completedexercises well. Pt Orestes sit to stand with assist for LUE hand placement of walker, amb with FWW CGA/Orestes to/from bathroom, stood at sink for ADLS with SBA/CGA for balance, cues needed to utilize LUE into ADL task which pt would use minimally then reverts back to using RUE to complete task. ?? Barriers to return to prior living situation: current level of A, L sided weakness and neglect, L visual field cut ?? Recommendations for discharge: ARU ?? Rationale for recommendations: Pt would benefit from intensive OT services to improve IND with ADL'sand transfers as pt was IND prior. Pt motivated to participate in therapy and has good family support. Pt would make good ARU candidate at this time. Entered by: Gail Acosta 03/05/2018 10:24 AM PHONE SUPERVISOR Plan of Care - Anitra Ramsey RN - 03/05/2018 5:43 AM CST Problem: Patient Care Overview Goal: Plan of Care/Patient Progress Review Outcome: No Change A&O X4. Neuros intact ex L droop, L field cut, LUE ataxia, BEKAH/LL hemiparesis, LUE drift, intmt numbness/tingling to L arm/shoulder, LUE strength 3-4/5. Good strength to bilat lower extrem. VSS. Tele SB. DD2 diet, thin liquids. Up with AX1, GB, W. Pt CPAP home CPAP not working, refused wearing hospital CPAP overnight. Reports L shoulder pain decreased w/ tylenol. Discharge plan pending. PHONE SUPERVISOR Plan of Care - Tova Levine, PT - 03/04/2018 4:59 PM CST Problem: Patient Care Overview Goal: Plan of Care/Patient Progress Review Eligibility Consultant PT Patient plan for discharge: open to rehab; family appear open to ARU Current status: PT: Order received; Initial evaluation completed and treatment initiated after stroke s/p tPA and residual L sided weakness; Prior to admit patient was living with his spouse in a home.Steps to enter and no prior use of an assistive device; Was driving at baseline but reports him and his spouse are currently retired. Spouse and daughters present for session; Up at EOB upon therapist arrival; just back from bathroom with assist of 1-2 nursing staff; good sitting balance noted at EOB with R UE support of rail; min A for sit>stand at EOB; no gross LOB; mild instability; able to ambulate 10-15 feet in room with mod A and lean L; able to advance LE's; L quality analyst weak and difficulty holding onto walker currently; may benefit from trial of a platform walker tomorrow during session; Balance is currently impaired; patient has some L neglect and L field cut per OT note/chart. Sensation appears intact to light touch.Min/mod A to return to sitting at EOB; mod A for L LE into bed and min A for scooting to middle of bed; positioned L UE on pillows for comfort as patient has been having pain in L shoulder since admit; reports ice and pillow help. BP 155/80 and HR 69 after OOB activity. Barriers to return to prior living situation: stairs; current need for assist; high falls risk; difficulty ambulating Recommendations for discharge: ARC Rationale for recommendations: Patient would benefit from acute rehab session given prior level of independence, good motivation to participate, medical complexity, good family support and potential toreturn to independence with work on regaining strength, balance, and independence with functional mobility Entered by: Tova Levine 03/04/2018 4:52 PM PHONE SUPERVISOR Plan of Care - Cassie Arreola RN - 03/04/2018 3:54 PM CST Problem: Patient Care Overview Goal: Plan of Care/Patient Progress Review Outcome: Improving A&O times 4, sleeping in between cares. Left facial droop, left hemiparesis UE and LE, good strength in both legs when in bed, but drags his left foot/leg when ambulating, left pronator drift, leftneglect, left field cut, decreased sensation on left. VSS. Tele NSR. On DD2 diet with thin liquids. Up with assist of two with GB. Ambulated to bathroom. C/o left shoulder pain, declined pain meds, icepack applied. Continue to monitor. PHONE SUPERVISOR Plan of Care - Cassie Arreola RN - 03/04/2018 2:09 PM CST Problem: Patient Care Overview Goal: Plan of Care/Patient Progress Review Outcome: No Change Lethargic, oriented times 4. Left facial droop, left UE hemiparesis, left pronator drift, left neglect and left field cut. Lef side of his feel decreased sensation. VSS. Tele NSR. DD2 diet with thin liquids. Up with assist of two with GB and walker, needs cues about where to go. C/o left shoulder discomfort, repositioning brought relief. Continue to monitor. PHONE SUPERVISOR Plan of Care - Blanca Payton RN - 03/04/2018 11:07 AM CST Problem: Stroke (Ischemic) (Adult) Goal: Signs and Symptoms of Listed Potential Problems Will be Absent, Minimized or Managed (Stroke) Signs and symptoms of listed potential problems will be absent, minimized or managed by discharge/transition of care (reference Stroke (Ischemic) (Adult) CPG). Outcome: Improving A&Ox4. Up to the chair with A1. Left side neglect, left field cut, LUE weakness. Speech intact, PERRL. Vitals WNL. Tolerated breakfast, voiding small amounts frequently. Family here and updated. Transferred to . PHONE SUPERVISOR Plan of Care - Rhona Walsh PROCEDURE TECH - 03/04/2018 10:01 AM CST Problem: Patient Care Overview Goal: Plan of Care/Patient Progress Review Eligibility Consultant PROCEDURE TECH Patient plan for discharge: Did not state. Current status: Patient was seen at breakfast for diet tolerance of a DDL 2 and thin liquids. He wasup in the chair with family present. Very tired and only ordered cream of rice. Noted to have oral residue on the left lateral sulci that he was able to clear with an additional swallow and liquid rinse. No overt Sx of aspiration with thin liquids via the cup. Education provided on placing the spoon on the right side, double swallow, alternating liquids/solids, checking left side for oral residue andordering soft textures at noon if fatigue is still present. Recommend: 1. Continue on the DDL 2 withthin liquids. Follow swallow strategies listed above. 2. PROCEDURE TECH will f/u for continued tolerance and swallow strategies. Barriers to return to prior living situation: Acute stroke deficits. Recommendations for discharge: ARC Rationale for recommendations: Will need on going ST needs for both swallowing and speech/language deficits. Patient is motivated to improve despite fatigue and has good family support. Entered by: Rhona Walsh 03/04/2018 9:58 AM PHONE SUPERVISOR Plan of Care - Radha Paige OT - 03/04/2018 8:25 AM CST Problem: Patient Care Overview Goal: Plan of Care/Patient Progress Review Eligibility Consultant PT Patient plan for discharge: none stated Current status: order received, chart reviewed, eval completed and tx initiated. Pt admitted with left hemiparesis on 03/02/2018 to [facility] s/p IV tPA with improvement in his symptoms. MRI Brain reveals scattered infarcst within the R. MCA territory, primarily watershed. Pt lives in house withspouse with 4 steps to main level. Pt reports IND with all ADL/IADL's prior including work and driving. Pt reports spouse is home to A as needed. Pt oriented/alert. Pt completed bed mobility supine > sit with mod A due to L sided weakness. L inattention noted throughout session. Significant L visual field cut. Educated on visual scanning techniques. Pt sat EOB x 10 minutes with CGA and use of bed rail for stabilization as he has lateral leanto L. Inattention to LUE. Pt completed sit <> stand transfer with min A x 2 and FWW. Cues needed for FWW safety and for attending to LUE/LE. Pt completed stand pivot with Min A x 2 with FWW and verbal cues. Pt reports feeling slightly dizzy- BP 139/91. Symtoms resolved. Family arrived OT educated on POC and role and discharge recs. Educated on neuro re-ed exercises for pt to complete in chair wi th LUE. Pt with limited shoulder flexion but reports due to rotator cuff injury. Incoordination noted on LUE. Instructed on exercises to perform. AROM exercises x 10 reps. Pt receptive to education. Demonstrated exercises to family- family receptive. Barriers to return to prior living situation: current level of A, L sided weakness and neglect, L visual field cut Recommendations for discharge: ARU Rationale for recommendations: Pt would benefit from intensive OT services to improve IND with ADL'sand transfers as pt was IND prior. Pt motivated to participate in therapy and has good family support. Pt would make good ARU candidate at this time. Entered by: Radha Paige 03/04/2018 8:22 AM PHONE SUPERVISOR Plan of Care - Darling Boo RN - 03/04/2018 7:42 AM CST Problem: Stroke (Ischemic) (Adult) Goal: Signs and Symptoms of Listed Potential Problems Will be Absent, Minimized or Managed (Stroke) Signs and symptoms of listed potential problems will be absent, minimized or managed by discharge/transition of care (reference Stroke (Ischemic) (Adult) CPG). Pt had difficulty sleeping through the night stated bed uncomfortable, attempted several positions and mattress surface to attempt to make pt comfortable. Pt was slightly restless, attempting to toss and turn in bed and refusing to keep b/p cuff, o2 sat cable and iv connected continuously. vss and neuro status slighting improving, able to lift left arm a little more and sensation to left arm improving PHONE SUPERVISOR Plan of Care - Rhona Walsh SLP - 03/03/2018 9:46 AM CST Problem: Patient Care Overview Goal: Plan of Care/Patient Progress Review Eligibility Consultant PROCEDURE TECH Patient plan for discharge: Patient did not state. Current status: Bedside swallow evaluation completed per MD order. Patient presents with mild to moderate oral and pharyngeal dysphagia secondary to a right frontal infarct. Oral motor examination revealed decreased sensation on the left side, left facial droop, dysarthria, decreased ROM for labial/lingual function. Premature entry of thin liquids with mild delay, but no overt Sx of aspiration. Pureed textures were swallowed without difficulty. He demonstrated slow mastication of a solid, reduced bolus control, coordination and AP transport. This resulted in mild to moderate oral residue on the left side. He was able to clear with an additional swallow and liquid rinse. Fatigue will increase risk for aspiration. Recommend: 1. Dysphagia Diet level 2 with thin liquids. 2. Feed only when fully alert, no straws, small bites/sips, check for oral residue on the left side, double swallow and alternate liquids/solids. Hold diet if Sx of aspiration present. 2.PROCEDURE TECH will f/u for diet tolerance, strengthening and swallow strategies. Barriers to return to prior living situation: Acute stroke deficits. Recommendations for discharge: [facility] Rationale for recommendations: Patient will benefit from intense therapy to restore swallow functionand speech/language deficits. Patient below his baseline. He has good participation and family support. Entered by: Rhona Walsh 03/03/2018 9:43 AM PHONE SUPERVISOR Plan of Care - Mirian Peñaloza, PT - 03/03/2018 6:11 AM CST Problem: Patient Care Overview Goal: Plan of Care/Patient Progress Review PT and OT: Received eval orders. Holding eval until 24 hrs post tPA. PHONE SUPERVISOR Plan of Care - Ronel Atkinson RN - 03/03/2018 5:59 AM CST Problem: Patient Care Overview Goal: Plan of Care/Patient Progress Review Outcome: No Change Patient alert and oriented. VSS on home CPAP/2 L NC. Left sided weakness improving, left sided facial droop, slight left deviation with tongue extension. Visual neglect/field cut noted, neurology aware- repeat imaging done. No changes in plan of care overnight. Tele: SR. EKG done for baseline per MD orders. IV infusing, bolus of NS given after imaging with contrast. Voiding in urinal. NPO until speech evaluation. Will continue to monitor. Understanding Stroke booklet given to patient and daughter, may need more education once able to getmore sleep. PHONE SUPERVISOR Provider Notification - Ronel Atkinson RN - 03/03/2018 1:[address] Hernandez notified of neurological changes just before 2300. CT and CTA completed per MD orders.500 mL NS bolus given after CTA per MD orders. PHONE SUPERVISOR Pharmacy-Admission Medication History - Kay Nunes RPH - 03/02/2018 10:47 PM CST Admission medication history interview status for the 03/02/2018 admission is complete. See [facility] admission navigator for prior to admission medications Medication history source reliability:Good- patient, Rx bottles Actions taken by pharmacist (provider contacted, etc):None Additional medication history information not noted on SENIOR HYDROGEOLOGIST med list : -He had Rx bottle Ketorolac 10mg four times daily as needed but he reported not taking or taking anyother medication for pain. Medication reconciliation/reorder completed by provider prior to medication history? No Time spent in this activity: 10 min Prior to Admission medications Medication Sig Last Dose Taking? Auth Provider amLODIPine (NORVASC) 10 MG tablet Take 10 mg by mouth daily 03/02/2018 at am Yes Unknown, Entered ByHistory aspirin 81 MG tablet Take 81 mg by mouth every evening 03/01/2018 at pm Yes Unknown, Entered By History atorvastatin (LIPITOR) 20 MG tablet Take 20 mg by mouth every evening 03/01/2018 at pm Yes Unknown, Entered By History magnesium oxide (MAG-OX) 400 MG tablet Take 400 mg by mouth every evening 03/01/2018 at pm Yes Unknown, Entered By History multivitamin, therapeutic (THERA-VIT) TABS Take 1 tablet by mouth daily 03/01 or 03/02 Yes Reported,Patient Probiotic Product (PROBIOTIC DAILY PO) Take 1 tablet by mouth every evening 03/01/2018 at pm Yes Reported, Patient PHONE SUPERVISOR documented in this encounter Plan of Treatment Not on filedocumented as of this encounter Procedures Procedure Name Priority Date/Time Associated Diagnosis Comme nts GLUCOSE BY METER Routine 03/07/2018 7:53 Cerebrovascular Resul ts for this PM TELEPHONE SUPERVISOR accident (CVA) due to proced ure are in embolism of right the result s middle cerebral artery secti on. (H) GLUCOSE BY METER Routine 03/07/2018 4:51 Cerebrovascular Resul ts for this PM TELEPHONE SUPERVISOR accident (CVA) due to proced ure are in embolism of right the result s middle cerebral artery secti on. (H) BASIC METABOLIC Routine 03/05/2018 8:51 Results f or this PANEL AM TELEPHONE SUPERVISOR procedure are i n the results section. CBC WITH PLATELETS Routine 03/05/2018 8:51 Result s for this AM TELEPHONE SUPERVISOR procedure are i n the results section. BASIC METABOLIC Routine 03/04/2018 5:30 Results f or this PANEL AM TELEPHONE SUPERVISOR procedure are i n the results section. CBC WITH PLATELETS Routine 03/04/2018 5:30 Result s for this AM TELEPHONE SUPERVISOR procedure are i n the results section. MR BRAIN W/O & W Routine 03/03/2018 6:46 Results for this CONTRAST PM TELEPHONE SUPERVISOR procedure are i n the results section. GLUCOSE BY METER Routine 03/03/2018 4:16 Results for this PM TELEPHONE SUPERVISOR procedure are i n the results section. GLUCOSE BY METER Routine 03/03/2018 12:01 Results for this PM TELEPHONE SUPERVISOR procedure are i n the results section. ECHO COMPLETE Routine 03/03/2018 10:31 Results fo r this BUBBLE STUDY WITH AM TELEPHONE SUPERVISOR procedure are in [employer] the results section. GLUCOSE BY METER Routine 03/03/2018 8:08 Results for this AM TELEPHONE SUPERVISOR procedure are i n the results section. TROPONIN I Timed 03/03/2018 5:50 Results for this AM TELEPHONE SUPERVISOR procedure are i n the results section. LIPID REFLEX TO Routine 03/03/2018 5:50 Results f or this DIRECT LDL PANEL AM TELEPHONE SUPERVISOR procedure a re in the results section. HEPATIC FUNCTION Routine 03/03/2018 5:50 Results for this PANEL AM TELEPHONE SUPERVISOR procedure are i n the results section. HEMOGLOBIN A1C Routine 03/03/2018 5:50 Results fo r this AM TELEPHONE SUPERVISOR procedure are i n the results section. CK TOTAL Routine 03/03/2018 5:50 Results for this AM TELEPHONE SUPERVISOR procedure are i n the results section. BASIC METABOLIC Routine 03/03/2018 5:50 Results f or this PANEL AM TELEPHONE SUPERVISOR procedure are i n the results section. EKG 12-LEAD, STAT 03/03/2018 5:02 Results for this TRACING ONLY AM TELEPHONE SUPERVISOR procedure are i n the results section. GLUCOSE BY METER Routine 03/03/2018 4:06 Results for this AM TELEPHONE SUPERVISOR procedure are i n the results section. CTA HEAD NECK W STAT 03/03/2018 12:10 Results for this CONTRAST AM TELEPHONE SUPERVISOR procedure are i n the results section. CT HEAD W/O STAT 03/02/2018 11:43 Results for this CONTRAST PM TELEPHONE SUPERVISOR procedure are i n the results section. GLUCOSE BY METER Routine 03/02/2018 11:41 Results for this PM TELEPHONE SUPERVISOR procedure are i n the results section. TROPONIN I Timed 03/02/2018 11:40 Results for this PM TELEPHONE SUPERVISOR procedure are i n the results section. GLUCOSE BY METER Routine 03/02/2018 10:02 Results for this PM TELEPHONE SUPERVISOR procedure are i n the results section. documented in this encounter Results Cardiac Event Monitor - Peds/Adult (03/17/2018 9:20 AM TELEPHONE SUPERVISOR) Narrative This result has an attachment that is no t available. Gabrielle Hernandez MD CV CARDIAC SERVICES ORDERABL ES Performing Organization Address City/State/ZIP Code Phon e Number [facility] (ABNORMAL) Glucose by meter (03/07/2018 7:53 PM TELEPHONE SUPERVISOR) P athologist Signature Glucose 118 (H) 70 - 99 03/07/2018 POINT OF CARE mg/dL 8:05 PM TELEPHONE SUPERVISOR TEST, GLUCOSE Specimen Anatomical Collection Method Collection Time Receive d Time (Source) Location / / Volume Laterality 03/07/2018 7:53 PM 8 8:05 TELEPHONE SUPERVISOR PM TELEPHONE SUPERVISOR [facility] PO[facility] Performing Organization Address City/State/ZIP Code Phon e Number FV POINT OF CARE TEST, GLUCOSE POINT OF CARE TEST, GLUCOSE Glucose by meter (03/07/2018 4:51 PM TELEPHONE SUPERVISOR) athologist Signature Glucose 91 70 - 99 03/07/2018 POINT OF CARE mg/dL 8:19 PM TELEPHONE SUPERVISOR TEST, GLUCOSE Specimen Anatomical Collection Method Collection Time Receive d Time (Source) Location / / Volume Laterality 03/07/2018 4:51 PM 8 8:19 TELEPHONE SUPERVISOR PM TELEPHONE SUPERVISOR Keira [facility] - [facility] POCT Performing Organization Address City/State/ZIP Code Phon e Number FV POINT OF CARE TEST, GLUCOSE POINT OF CARE TEST, GLUCOSE CBC with platelets (03/05/2018 8:51 AM TELEPHONE SUPERVISOR) athologist Signature WBC 9.2 4.0 - 11.0 03/05/2018 [facility] 10e9/L 9:[address] [facility] RBC Count 5.16 4.4 - 5.9 03/05/2018 [facility] 10e12/L 9:[address] [facility] Hemoglobin 15.3 13.3 - 03/05/2018 [facility] 17.7 g/dL 9:[address] [facility] Hematocrit 44.4 40.0 - 03/05/2018 [facility] 53.0 % 9:[address] [facility] MCV 86 78 - 100 03/05/2018 [facility] fl 9:[address] [facility] MCH 29.7 26.5 - 03/05/2018 [facility] 33.0 pg 9:[address] [facility] MCHC 34.5 31.5 - 03/05/2018 [facility] 36.5 g/dL 9:[address] [facility] RDW 13.6 10.0 - 03/05/2018 [facility] 15.0 % 9:[address] [facility] Platelet Count 210 150 - 450 03/05/2018 [facility] 10e9/L 9:[address] [facility] Specimen Anatomical Collection Method Collection Time Receive d Time (Source) Location / / Volume Laterality Blood specimen 03/05/2018 8:51 AM 018 9:05 (specimen) TELEPHONE SUPERVISOR AM TELEPHONE SUPERVISOR Uzma Gray DO LAB - BLOOD ORDERABLES Performing Organization Address City/State/ZIP Code Phon e Number M [facility] [address] [place] [id number] [phone] [facility] [address] [place] [address], [place] [phone] (ABNORMAL) Basic metabolic panel (03/05/2018 8:51 AM TELEPHONE SUPERVISOR) athologist Signature Sodium 138 133 - 144 03/05/2018 [place] mmol/L 9:[address] [facility] Potassium 3.5 3.4 - 5.3 03/05/2018 [place] mmol/L 9:[address] [facility] Chloride 104 94 - 109 03/05/2018 [place] mmol/L 9:[address] [facility] Carbon Dioxide 26 20 - 32 03/05/2018 [place] mmol/L 9:[address] [facility] Anion Gap 8 3 - 14 03/05/2018 [place] mmol/L 9:[address] [facility] Glucose 125 (H) 70 - 99 03/05/2018 [place] mg/dL 9:[address] [facility] Urea Nitrogen 13 7 - 30 03/05/2018 [place] mg/dL 9:[address] [facility] Creatinine 0.83 0.66 - 03/05/2018 [place] 1.25 mg/dL 9:[address] [facility] GFR Estimate >90 >60 03/05/2018 [place] mL/min/1.7 9:[address] Comment: Non GFR Calc GFR Estimate If >90 >60 mL/min/1.7m2 03/05/2018 9:24 A [facility] Comment: GFR Calc Calcium 8.9 8.5 - 10.1 mg/dL 03/05/2018 9:24 AM [facility] Specimen Anatomical Collection Method Collection Time Receive d Time (Source) Location / / Volume Laterality Blood specimen 03/05/2018 8:51 AM 018 9:05 (specimen) TELEPHONE SUPERVISOR AM TELEPHONE SUPERVISOR Uzma Gray DO LAB - BLOOD ORDERABLES Performing Organization Address City/State/ZIP Code Phon e Number M [facility] [address] [place] [id number] [facility] [address] [place] [address], [place] [phone] (ABNORMAL) CBC with platelets (03/04/2018 5:30 AM TELEPHONE SUPERVISOR) Analysis Performed At Patho logist Time Signature WBC 11.5 (H) 4.0 - 11.0 03/04/2018 [facility] 10e9/L 5:[address] [facility] RBC Count 4.88 4.4 - 5.9 03/04/2018 [facility] 10e12/L 5:[address] [facility] Hemoglobin 14.8 13.3 - 03/04/2018 [facility] 17.7 g/dL 5:[address] [facility] Hematocrit 42.5 40.0 - 03/04/2018 [facility] 53.0 % 5:[address] [facility] MCV 87 78 - 100 03/04/2018 [facility] fl 5:[address] [facility] MCH 30.3 26.5 - 03/04/2018 [facility] 33.0 pg 5:[address] [facility] MCHC 34.8 31.5 - 03/04/2018 [facility] 36.5 g/dL 5:[address] [facility] RDW 13.7 10.0 - 03/04/2018 [facility] 15.0 % 5:[address] [facility] Platelet Count 210 150 - 450 03/04/2018 [facility] 10e9/L 5:[address] [facility] Specimen Anatomical Collection Method Collection Time Receive d Time (Source) Location / / Volume Laterality Blood specimen 03/04/2018 5:30 AM 018 5:37 (specimen) TELEPHONE SUPERVISOR AM TELEPHONE SUPERVISOR Uzma Gray DO LAB - BLOOD ORDERABLES Performing Organization Address City/State/ZIP Code Phon e Number M [facility] [address] [place] [id number] [facility] [address] [place] [address], [place] [phone] (ABNORMAL) Basic metabolic panel (03/04/2018 5:30 AM [facility]) P athologist Signature Sodium 140 133 - 144 03/04/2018 [place] mmol/L 5:[address] [facility] Potassium 3.5 3.4 - 5.3 03/04/2018 [place] mmol/L 5:[address] [facility] Chloride 106 94 - 109 03/04/2018 [place] mmol/L 5:[address] [facility] Carbon Dioxide 25 20 - 32 03/04/2018 [place] mmol/L 5:[address] [facility] Anion Gap 9 3 - 14 03/04/2018 [place] mmol/L 5:[address] [facility] Glucose 131 (H) 70 - 99 03/04/2018 [place] mg/dL 5:[address] [facility] Urea Nitrogen 8 7 - 30 03/04/2018 [place] mg/dL 5:[address] [facility] Creatinine 0.75 0.66 - 03/04/2018 [place] 1.25 mg/dL 5:[address] [facility] GFR Estimate >90 >60 03/04/2018 [place] mL/min/1.7 5:[address] Comment: Non GFR Calc GFR Estimate If >90 >60 mL/min/1.7m2 03/04/2018 5:59 A [facility] Comment: GFR Calc Calcium 8.8 8.5 - 10.1 mg/dL 03/04/2018 5:59 AM [facility] Specimen Anatomical Collection Method Collection Time Receive d Time (Source) Location / / Volume Laterality Blood specimen 03/04/2018 5:30 AM 018 5:37 (specimen) TELEPHONE SUPERVISOR AM TELEPHONE SUPERVISOR Uzma Gray DO LAB - BLOOD ORDERABLES Performing Organization Address City/State/ZIP Code Phon e Number M [facility] [address] [address] [facility] [address] [address], U [phone] MRI Brain w & w/o contrast (03/03/2018 6:46 PM TELEPHONE SUPERVISOR) Anatomical Region Laterality Modality Head, SUBRAD MR NEURO, UMP MR NEURO, RAD MR Magnetic Resonance Specimen (Source) Anatomical Location Collection Method / Collectio n Time Received Time / Laterality Volume Impressions 03/03/2018 7:45 PM TELEPHONE SUPERVISOR IMPRESSION: 1. Multiple infarcts in the right middle cerebral artery territory accompanied by slowed blood flow. 2. No hemorrhage. 3. Fluid in inferior mastoid air cells b ilaterally. ?? EMILIANO BAINS MD Narrative 03/03/2018 7:45 PM TELEPHONE SUPERVISOR MRI BRAIN WITHOUT AND WITH CONTRAST ??03/03/2018 6:46 PM HISTORY: ??Stroke. Worsening right hemis phere neurological symptoms status post TPA. Left-sided weakness. TECHNIQUE: ??Multiplanar, multisequence MRI of the brain without and with 11mL Gadavist. COMPARISON: CT angiogram and perfusion C T scan of the head today. FINDINGS: Recent appearing infarcts are seen in the right cerebral hemisphere in the right middle cerebral artery territory including the deep white matter of the right posterior frontal lobe, the right insula, the right inferior frontal gyrus and the lateral aspect of the right parietal and occipital lobes as we ll as in the right temporal lobe laterally. No left-sided infarcts a re seen. The brainstem and cerebellum appear normal. There is mild generalized atrophy of the brain. There is no evidence of hemorrhage. No gadolinium enhancing l esions are seen, but there is slowed intravascular blood flow in branc hes of the right middle cerebral artery particularly over the ri ght posterior frontal lobe and the lateral right parietal lobe and in t he right sylvian fissure. There is fluid in inferior mastoid air c ells bilaterally. Facial soft tissues appear normal. Procedure Note Emiliano Bains MD - 03/03/2018Formatt ing of this note might be different from the original. MRI BRAIN WITHOUT AND WITH CONTRAST 02/13 6:46 PM HISTORY: Stroke. Worsening right hemisph ere neurological symptoms status post TPA. Left-sided weakness. TECHNIQUE: Multiplanar, multisequence MR I of the brain without and with 11mL Gadavist. COMPARISON: CT angiogram and perfusion C T scan of the head today. FINDINGS: Recent appearing infarcts are seen in the right cerebral hemisphere in the right middle cerebral artery territory including the deep white matter of the right posterior frontal lobe, the right insula, the right inferior frontal gyrus and the lateral aspect of the right parietal and occipital lobes as we ll as in the right temporal lobe laterally. No left-sided infarcts a re seen. The brainstem and cerebellum appear normal. There is mild generalized atrophy of the brain. There is no evidence of hemorrhage. No gadolinium enhancing l esions are seen, but there is slowed intravascular blood flow in branc hes of the right middle cerebral artery particularly over the ri ght posterior frontal lobe and the lateral right parietal lobe and in t he right sylvian fissure. There is fluid in inferior mastoid air c ells bilaterally. Facial soft tissues appear normal. IMPRESSION: 1. Multiple infarcts in the right middle cerebral artery territory accompanied by slowed blood flow. 2. No hemorrhage. 3. Fluid in inferior mastoid air cells b ilaterally. EMILIANO BAINS MD Keira Gaytan MD IMG MRI ORDERABLES (ABNORMAL) Glucose by meter (03/03/2018 4:16 PM TELEPHONE SUPERVISOR) P athologist Signature Glucose 126 (H) 70 - 99 03/03/2018 POINT OF CARE mg/dL 4:27 PM TELEPHONE SUPERVISOR TEST, GLUCOSE Specimen Anatomical Collection Method Collection Time Receive d Time (Source) Location / / Volume Laterality 03/03/2018 4:16 PM 8 4:27 TELEPHONE SUPERVISOR PM TELEPHONE SUPERVISOR Keira CHENG POCT Performing Organization Address City/State/ZIP Code Phon e Number [facility] POINT OF CARE TEST, GLUCOSE POINT OF CARE TEST, GLUCOSE (ABNORMAL) Glucose by meter (03/03/2018 12:01 PM TELEPHONE SUPERVISOR) P athologist Signature Glucose 103 (H) 70 - 99 03/03/2018 POINT OF CARE mg/dL 12:13 PM TELEPHONE SUPERVISOR TEST, GLUCOSE Specimen Anatomical Collection Method Collection Time Receive d Time (Source) Location / / Volume Laterality 03/03/2018 12:01 03/03/2018 PM TELEPHONE SUPERVISOR 12:13 PM TELEPHONE SUPERVISOR Keira CHENG POCT Performing Organization Address City/State/ZIP Code Phon e Number [facility] POINT OF CARE TEST, GLUCOSE POINT OF CARE TEST, GLUCOSE ECHO COMPLETE BUBBLE STUDY WITH OPTISON (03/03/2018 10:31 AM TELEPHONE SUPERVISOR) Anatomical Region Laterality Modality Echocardiography Specimen (Source) Anatomical Collection Method Collection Time Re ceived Time Location / / Volume Laterality 03/03/2018 10:07 AM TELEPHONE SUPERVISOR Narrative 03/03/2018 12:49 PM [facility] [id number]^[email or web address]^KEIRA^[facility] Echocardiography Laboratory [address] [place] [address] Name: NICOLETTE DICKSON : 1950 Study Date: 03/03/2018 10:07 AM Age: 67 yrs Gender: Male [facility] Reason For Study: CVA Ordering Physician: KEIRA GAYTAN Referring Physician: [facility] [place] Performed By: Irene Alonso BSA: 2.3 m2 Height: 69 in Weight: 250 lb HR: 74 BP: 156/88 mmHg __ Procedure Contrast Optison. Complete Portable Bubb le Echo Adult. __ Interpretation Summary Left ventricular systolic function is no rmal. The visual ejection fraction is estimated at 60-65%. There is mild dilia ntric left ventricular hypertrophy. A contrast injection (Bubble Study) was performed that was negative for flow across the interatrial septum. There is no atrial shunt seen. Sinus rhythm was noted. Technically difficult, suboptimal study. Contrast was used without apparent complications. There is no comparison st udy available. __ Left Ventricle The left ventricle is normal in size. Th ere is mild concentric left ventricular hypertrophy. Left ventricula r systolic function is normal. The visual ejection fraction is estimated at 60-65%. Diastolic Doppler findings (E/E' ratio and/or other parameters) sug gest left ventricular filling pressures are indeterminate. No regional wall motion abnormalities noted. Right Ventricle The right ventricle is normal size. The right ventricular systolic function is normal. Atria Normal left atrial size. Right atrial si ze is normal. A contrast injection (Bubble Study) was performed that was ne gative for flow across the interatrial septum. There is no atrial shunt seen. Mitral Valve There is trace mitral regurgitation. Tricuspid Valve There is trace tricuspid regurgitation. Right ventricular systolic pressure could not be approximated due to inadequ ate tricuspid regurgitation. Normal IVC (1.5-2.5cm) with <50% respiratory co llapse; right atrial pressure is estimated at 10-15mmHg. Aortic Valve No aortic regurgitation is present. No h emodynamically significant valvular aortic stenosis. Pulmonic Valve There is no pulmonic valvular stenosis. Vessels Normal size aorta. The IVC is normal in size and reactivity with respiration, suggesting normal central venous pressur e. Pericardium The pericardium appears normal. Rhythm Sinus [...] Medial E/e': 14.8 __ Report approved by: Ksenia Cat 1 05/03/2017 12:49 PM Procedure Note Juliette Arellano MD - 03/03/2018Formatti ng of this note might be different from the original. [id number]^LUKAS^KEIRA^[facility] Echocardiography Laboratory [address] [place] [address] Name: NICOLETTE DICKSON : 1950 Study Date: 03/03/2018 10:07 AM Age: 67 yrs Gender: Male [facility] Reason For Study: CVA Ordering Physician: KEIRA GAYTAN Referring Physician: [facility] [place] Performed By: Irene Alonso BSA: 2.3 m2 Height: 69 in Weight: 250 lb HR: 74 BP: 156/88 mmHg __ Procedure Contrast Optison. Complete Portable Bubb le Echo Adult. __ Interpretation Summary Left ventricular systolic function is no rmal. The visual ejection fraction is estimated at 60-65%. There is mild dilia ntric left ventricular hypertrophy. A contrast injection (Bubble Study) was performed that was negative for flow across the interatrial septum. There is no atrial shunt seen. Sinus rhythm was noted. Technically difficult, suboptimal study. Contrast was used without apparent complications. There is no comparison st udy available. __ Left Ventricle The left ventricle is normal in size. Th ere is mild concentric left ventricular hypertrophy. Left ventricula r systolic function is normal. The visual ejection fraction is estimated at 60-65%. Diastolic Doppler findings (E/E' ratio and/or other parameters) sug gest left ventricular filling pressures are indeterminate. No regional wall motion abnormalities noted. Right Ventricle The right ventricle is normal size. The right ventricular systolic function is normal. Atria Normal left atrial size. Right atrial si ze is normal. A contrast injection (Bubble Study) was performed that was ne gative for flow across the interatrial septum. There is no atrial shunt seen. Mitral Valve There is trace mitral regurgitation. Tricuspid Valve There is trace tricuspid regurgitation. Right ventricular systolic pressure could not be approximated due to inadequ ate tricuspid regurgitation. Normal IVC (1.5-2.5cm) with <50% respiratory co llapse; right atrial pressure is estimated at 10-15mmHg. Aortic Valve No aortic regurgitation is present. No h emodynamically significant valvular aortic stenosis. Pulmonic Valve There is no pulmonic valvular stenosis. Vessels Normal size aorta. The IVC is normal in size and reactivity with respiration, suggesting normal central venous pressur e. Pericardium The pericardium appears normal. Rhythm Sinus [...] __ Report approved by: Juliette Arellano MDon 1 05/03/2017 12:49 PM Keira Gaytan MD CV ECHO ORDERABLES (ABNORMAL) Glucose by meter (03/03/2018 8:08 AM TELEPHONE SUPERVISOR) P athologist Signature Glucose 132 (H) 70 - 99 03/03/2018 POINT OF CARE mg/dL 8:19 AM TELEPHONE SUPERVISOR TEST, GLUCOSE Specimen Anatomical Collection Method Collection Time Receive d Time (Source) Location / / Volume Laterality 03/03/2018 8:08 AM 8 8:19 TELEPHONE SUPERVISOR AM TELEPHONE SUPERVISOR Keira Gaytan MD LAB - BEAKER POCT Performing Organization Address City/State/ZIP Code Phon e Number [facility] POINT OF CARE TEST, GLUCOSE POINT OF CARE TEST, GLUCOSE (ABNORMAL) Basic metabolic panel (03/03/2018 5:50 AM TELEPHONE SUPERVISOR) athologist Signature Sodium 143 133 - 144 03/03/2018 [place] mmol/L 6:[address] [facility] Potassium 3.6 3.4 - 5.3 03/03/2018 [place] mmol/L 6:[address] [facility] Chloride 109 94 - 109 03/03/2018 [place] mmol/L 6:[address] [facility] Carbon Dioxide 28 20 - 32 03/03/2018 [place] mmol/L 6:[address] [facility] Anion Gap 6 3 - 14 03/03/2018 [place] mmol/L 6:[address] [facility] Glucose 135 (H) 70 - 99 03/03/2018 [place] mg/dL 6:[address] [facility] Urea Nitrogen 10 7 - 30 03/03/2018 [place] mg/dL 6:[address] [facility] Creatinine 0.80 0.66 - 03/03/2018 [place] 1.25 mg/dL 6:[address] [facility] GFR Estimate >90 >60 03/03/2018 [place] mL/min/1.7 6:[address] Comment: Non GFR Calc GFR Estimate If >90 >60 mL/min/1.7m2 03/03/2018 6:15 A [facility] Comment: GFR Calc Calcium 8.6 8.5 - 10.1 mg/dL 03/03/2018 6:15 AM [facility] Specimen Anatomical Collection Method Collection Time Receive d Time (Source) Location / / Volume Laterality Blood specimen 03/03/2018 5:50 AM 018 5:54 (specimen) TELEPHONE SUPERVISOR AM TELEPHONE SUPERVISOR Keira Gaytan MD LAB - BLOOD ORDERABLES Performing Organization Address City/State/ZIP Code Phon e Number M [facility] [address] [address] [phone] [facility] [address] [address], U [phone] CK total (03/03/2018 5:50 AM TELEPHONE SUPERVISOR) athologist Signature CK Total 81 30 - 300 03/03/2018 [place] U/L 6:[address] [facility] Specimen Anatomical Collection Method Collection Time Receive d Time (Source) Location / / Volume Laterality Blood specimen 03/03/2018 5:50 AM 018 5:54 (specimen) TELEPHONE SUPERVISOR AM TELEPHONE SUPERVISOR Keira Gaytan MD LAB - BLOOD ORDERABLES Performing Organization Address City/State/ZIP Code Phon e Number M [facility] [address] [place] [address] [facility] [address] [place] [address], [place] [phone] Hepatic panel (03/03/2018 5:50 AM TELEPHONE SUPERVISOR) athologist Signature Bilirubin Direct 0.2 0.0 - 0.2 03/03/2018 [place] mg/dL 6:[address] [facility] Bilirubin Total 0.7 0.2 - 1.3 03/03/2018 [place] mg/dL 6:[address] [facility] Albumin 3.5 3.4 - 5.0 03/03/2018 [place] g/dL 6:[address] [facility] Protein Total 7.1 6.8 - 8.8 03/03/2018 [place] g/dL 6:[address] [facility] Alkaline 132 40 - 150 03/03/2018 [place] Phosphatase U/L 6:[address] [facility] ALT 30 0 - 70 U/L 03/03/2018 [place] 6:[address] [facility] AST 19 0 - 45 U/L 03/03/2018 [place] 6:[address] [facility] Specimen Anatomical Collection Method Collection Time Receive d Time (Source) Location / / Volume Laterality Blood specimen 03/03/2018 5:50 AM 018 5:54 (specimen) TELEPHONE SUPERVISOR AM TELEPHONE SUPERVISOR Keria Gaytan MD LAB - BLOOD ORDERABLES Performing Organization Address City/State/ZIP Code Phon e Number M [facility] [address] [address] [facility] [address] [address], [place] [phone] Lipid panel reflex to direct LDL (03/03/2018 5:50 AM [facility]) Analysis Performed At Patho logist Time Signature Cholesterol 137 <200 mg/dL 03/03/2018 [facility] 6:[address] [facility] Triglycerides 100 <150 mg/dL 03/03/2018 [facility] 6:[address] [facility] HDL Cholesterol 58 >39 mg/dL 03/03/2018 [facility] 6:[address] [facility] LDL Cholesterol 59 <100 mg/dL 03/03/2018 [facility] Calculated 6:[address] [facility] Comment: Desirable: <100 mg/dl Non HDL Cholesterol 79 <130 mg/dL 03/03/2018 6:19 AM [facility] Specimen Anatomical Collection Method Collection Time Receive d Time (Source) Location / / Volume Laterality Blood specimen 03/03/2018 5:50 AM 018 5:54 (specimen) TELEPHONE SUPERVISOR AM TELEPHONE SUPERVISOR Keira Gaytan MD LAB - BLOOD ORDERABLES Performing Organization Address City/State/ZIP Code Phon e Number M [facility] [address] [address] [phone] [facility] [address] [address], [facility] [phone] (ABNORMAL) Hemoglobin A1c (03/03/2018 5:50 AM [facility]) P athologist Signature Hemoglobin A1C 6.1 (H) 0 - 5.6 % 03/03/2018 [place] 6:[address] [facility] Comment: Normal <5.7% Prediabetes 5.7-6.4% ??Diab etes 6.5% or higher - adopted from ADA consensus guidelines. Specimen Anatomical Collection Method Collection Time Receive d Time (Source) Location / / Volume Laterality Blood specimen 03/03/2018 5:50 AM 018 5:54 (specimen) TELEPHONE SUPERVISOR AM TELEPHONE SUPERVISOR Keira Gaytan MD LAB - BLOOD ORDERABLES Performing Organization Address City/State/ZIP Code Phon e Number M [facility] [address] [address] [phone] [place] [address] [address], [place] [phone] Troponin I (03/03/2018 5:50 AM TELEPHONE SUPERVISOR) athologist Signature Troponin I ES <0.015 0.000 - 03/03/2018 [place] 0.045 ug/L 6:[address] [facility] Comment: The 99th percentile for upper reference range is 0.045 ug/L. ??Troponin values in the range of 0.045 - 0.120 ug/L may b e associated with risks of adverse clinical events. Specimen Anatomical Collection Method Collection Time Receive d Time (Source) Location / / Volume Laterality Blood specimen 03/03/2018 5:50 AM 018 5:54 (specimen) TELEPHONE SUPERVISOR AM TELEPHONE SUPERVISOR Keira Gaytan MD LAB - BLOOD ORDERABLES Performing Organization Address City/State/ZIP Code Phon e Number [facility] [address] [place] [address] [phone] [facility] [address] [place] [address], [place] [phone] EKG 12-lead, tracing only (03/03/2018 5:02 AM TELEPHONE SUPERVISOR) [facility] Method Time Signature Interpretation ECG Click View RADIOLOGY Image link RESULTS to view waveform and result Specimen (Source) Anatomical Collection Method Collection Time Re ceived Time Location / / Volume Laterality 03/03/2018 5:02 AM TELEPHONE SUPERVISOR Keira Gaytan MD ECG ORDERABLES Performing Organization Address City/State/ZIP Code Phon e Number RADIOLOGY RESULTS (ABNORMAL) Glucose by meter (03/03/2018 4:06 AM TELEPHONE SUPERVISOR) athologist Signature Glucose 130 (H) 70 - 99 03/03/2018 POINT OF CARE mg/dL 4:17 AM TELEPHONE SUPERVISOR TEST, GLUCOSE Specimen Anatomical Collection Method Collection Time Receive d Time (Source) Location / / Volume Laterality 03/03/2018 4:06 AM 8 4:17 TELEPHONE SUPERVISOR AM TELEPHONE SUPERVISOR Keira Gaytan MD LAB - BEAKER POCT Performing Organization Address City/State/ZIP Code Phon e Number [facility] POINT OF CARE TEST, GLUCOSE POINT OF CARE TEST, GLUCOSE CTA Head Neck with Contrast (03/03/2018 12:10 AM TELEPHONE SUPERVISOR) Anatomical Region Laterality Modality Head, SUBRAD CT NEURO, SUBRAD CT NEURO, UMP CT NEURO, Computed Tomography RAD CT Specimen (Source) Anatomical Location Collection Method / Collectio n Time Received Time / Laterality Volume Impressions 03/16/2018 8:32 AM TELEPHONE SUPERVISOR IMPRESSION: 1. Minimal atherosclerotic disease of hugo th carotid bifurcations without stenosis. 2. No evidence for stenosis, dissection, thromboembolism, or aneurysm. 3. Preliminary report was given by Dr. Blu pandey at 0109 on 03/03/2018. TONE PABON MD Narrative 03/16/2018 8:32 AM TELEPHONE SUPERVISOR CTA HEAD AND NECK WITH CONTRAST 03/03/2018 12:10 AM HISTORY: Worsening right hemisphere neur ological symptoms post TPA rule out new emboli. TECHNIQUE: Axial images were obtained th rough the head and neck without and with intravenous contrast. 7 0 mL of Isovue-370 was given. Multiplanar reconstructions were perform ed. 3-D reconstructions off a remote workstation for CT angiography wa s also acquired. Carotid stenoses were evaluated by comparing the caliber of the proximal internal carotid artery to the caliber o f the distal internal carotid artery. Radiation dose for this scan was reduced using automated exposure control, adjustment of the mA a nd/or kV according to patient size, or iterative reconstruction techni que. FINDINGS: Brachiocephalic vessels: Normal. Right carotid system: Minimal calcific p laque. No stenosis. Left carotid system: Minimal calcific pl aque. No stenosis or dissection. Right vertebral artery: Normal. Left vertebral artery: Normal. [place]: Normal. 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 There is no e vidence for thrombosis, thromboembolism, stenosis, or dissection . There is no evidence for aneurysm. Procedure Note Tone Pabon MD - 03/16/2018Form atting of this note might be different from the original. CTA HEAD AND NECK WITH CONTRAST 03/03/20 12:10 AM HISTORY: Worsening right hemisphere neur ological symptoms post TPA rule out new emboli. TECHNIQUE: Axial images were obtained th rough the head and neck without and with intravenous contrast. 7 0 mL of Isovue-370 was given. Multiplanar reconstructions were perform ed. 3-D reconstructions off a remote workstation for CT angiography wa s also acquired. Carotid stenoses were evaluated by comparing the caliber of the proximal internal carotid artery to the caliber o f the distal internal carotid artery. Radiation dose for this scan was reduced using automated exposure control, adjustment of the mA a nd/or kV according to patient size, or iterative reconstruction techni que. FINDINGS: Brachiocephalic vessels: Normal. Right carotid system: Minimal calcific p laque. No stenosis. Left carotid system: Minimal calcific pl aque. No stenosis or dissection. Right vertebral artery: Normal. Left vertebral artery: Normal. [place]: Normal. 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 There is no e vidence for thrombosis, thromboembolism, stenosis, or dissection . There is no evidence for aneurysm. IMPRESSION: 1. Minimal atherosclerotic disease of hugo th carotid bifurcations without stenosis. 2. No evidence for stenosis, dissection, thromboembolism, or aneurysm. 3. Preliminary report was given by Dr. Blu pandey at 0109 on 03/03/2018. TONE PABON MD Uzma Gray DO IMG CT ORDERABLES CT Head w/o Contrast (03/02/2018 11:43 PM TELEPHONE SUPERVISOR) Anatomical Region Laterality Modality Head, SUBRAD CT NEURO, SUBRAD CT NEURO, UMP CT NEURO, Computed Tomography RAD CT Specimen (Source) Anatomical Location Collection Method / Collectio n Time Received Time / Laterality Volume Impressions 03/03/2018 7:57 AM TELEPHONE SUPERVISOR IMPRESSION: No acute intracranial abnormality. No change. EMILIANO NEIL MD Narrative 03/03/2018 7:[address] SCAN OF THE HEAD WITHOUT CONTRAST ??March 02, 2018 11:43 PM HISTORY: Neurological changes. TECHNIQUE: Axial images of the head and coronal reformations without IV contrast material. Radiation dose for this scan was reduced using automated exposure control, adjustment o f the mA and/or kV according to patient size, or iterative reconstruc tion technique. COMPARISON: 03/02/2018. FINDINGS: Mild volume loss is present. P atchy white matter hypoattenuation likely represents chroni c small vessel ischemic change. No evidence of acute ischemia, h emorrhage, mass, mass effect, or hydrocephalus. The visualized calvari um, skull base, paranasal sinuses, and extracranial soft tissues a re unremarkable. Procedure Note Emiliano Neil MD - 03/03/2018F ormatting of this note might be different from the original. CT SCAN OF THE HEAD WITHOUT CONTRAST Ida [email or web address] 11:43 PM HISTORY: Neurological changes. TECHNIQUE: Axial images of the head and coronal reformations without IV contrast material. Radiation dose for this scan was reduced using automated exposure control, adjustment o f the mA and/or kV according to patient size, or iterative reconstruc tion technique. COMPARISON: 03/02/2018. FINDINGS: Mild volume loss is present. P atchy white matter hypoattenuation likely represents chroni c small vessel ischemic change. No evidence of acute ischemia, h emorrhage, mass, mass effect, or hydrocephalus. The visualized calvari um, skull base, paranasal sinuses, and extracranial soft tissues a re unremarkable. IMPRESSION: No acute intracranial abnorm ality. No change. EMILIANO NEIL MD Daina Hernandez MD IMG CT ORDERABLES (ABNORMAL) Glucose by meter (03/02/2018 11:41 PM TELEPHONE SUPERVISOR) athologist Signature Glucose 133 (H) 70 - 99 03/02/2018 POINT OF CARE mg/dL 11:52 PM TELEPHONE SUPERVISOR TEST, GLUCOSE Specimen Anatomical Collection Method Collection Time Receive d Time (Source) Location / / Volume Laterality 03/02/2018 11:41 03/02/2018 PM TELEPHONE SUPERVISOR 11:52 PM TELEPHONE SUPERVISOR Keira Gaytan MD LAB - BEAKER POCT Performing Organization Address City/State/ZIP Code Phon e Number [facility] POINT OF CARE TEST, GLUCOSE POINT OF CARE TEST, GLUCOSE Troponin I (03/02/2018 11:40 PM TELEPHONE SUPERVISOR) athologist Signature Troponin I ES <0.015 0.000 - 03/03/2018 [facility] 0.045 ug/L 12:13 AM TELEPHONE SUPERVISOR [facility] Comment: The 99th percentile for upper reference range is 0.045 ug/L. ??Troponin values in the range of 0.045 - 0.120 ug/L may b e associated with risks of adverse clinical events. Specimen Anatomical Collection Method Collection Time Receive d Time (Source) Location / / Volume Laterality Blood specimen 03/02/2018 11:40 8 (specimen) PM TELEPHONE SUPERVISOR 11:53 PM TELEPHONE SUPERVISOR Keira Gaytan MD LAB - BLOOD ORDERABLES Performing Organization Address City/State/ZIP Code Phon e Number M [facility] [address] [address] [phone] [facility] [address] [place], [place] [address], [place] [phone] (ABNORMAL) Glucose by meter (03/02/2018 10:02 PM TELEPHONE SUPERVISOR) P athologist Signature Glucose 129 (H) 70 - 99 03/02/2018 POINT OF CARE mg/dL 10:24 PM TELEPHONE SUPERVISOR TEST, GLUCOSE Specimen Anatomical Collection Method Collection Time Receive d Time (Source) Location / / Volume Laterality 03/02/2018 10:02 03/02/2018 PM TELEPHONE SUPERVISOR 10:24 PM TELEPHONE SUPERVISOR Keira Gaytan MD LAB - BEAKER POCT Performing Organization Address City/State/ZIP Code Phon e Number [facility] POINT OF CARE TEST, GLUCOSE POINT OF CARE TEST, GLUCOSE documented in this encounter Visit Diagnoses Diagnosis Cerebrovascular accident (CVA) due to em bolism of right middle cerebral artery (H) - Primary LVH (left ventricular hypertrophy) Cardiomegaly Benign essential hypertension Essential hypertension, benign Stroke (cerebrum) (H) Unspecified cerebral artery occlusion wi th cerebral infarction documented in this encounter Administered Medications Inactive Administered Medications - up to 3 most recent administrations Medication Order MAR Action Action Date Dose Rate Site 0.9% sodium chloride BOLUS New Bag 03/03/2018 12:24 AM TELEPHONE SUPERVISOR 500 mLs 500 mL/hr Intravenous, 500 mL, ONCE, at 500 mL/hr, Administer over 1 Hours, On Sat03/03/18 at 0030, For 1 dose acetaminophen (TYLENOL) tablet 650 mg Given 03/08/2018 2:24 AM TELEPHONE SUPERVISOR 650 mg 650 mg, Oral, EVERY 4 HOURS PRN, mild pain, Starting on 03/02/18 at 2240, Alternate ibuprofen (if ordered) with acetaminophen. Maximum acetaminophen dose from all sources = 75 mg/kg/day not to exceed 4 grams/day. Given 03/07/2018 4:50 AM TELEPHONE SUPERVISOR 650 mg Given 03/06/2018 5:24 PM TELEPHONE SUPERVISOR 650 mg amLODIPine (NORVASC) tablet 10 mg Given 03/08/2018 8:12 AM TELEPHONE SUPERVISOR 10 mg 10 mg, Oral, DAILY, First dose on Sat03/04/18 at 0900, Hold for SBP < 100 Given 03/07/2018 8:23 AM TELEPHONE SUPERVISOR 10 mg Given 03/06/2018 9:32 AM TELEPHONE SUPERVISOR 10 mg aspirin EC tablet 325 mg Given 03/08/2018 8:12 AM TELEPHONE SUPERVISOR 325 mg 325 mg, Oral, DAILY, First dose on Sat03/04/18 at 0900, DO NOT CRUSH. Given 03/07/2018 8:23 AM TELEPHONE SUPERVISOR 325 mg Given 03/06/2018 9:31 AM TELEPHONE SUPERVISOR 325 mg atorvastatin (LIPITOR) tablet 20 mg Given 03/07/2018 8:16 PM TELEPHONE SUPERVISOR 20 mg 20 mg, Oral, EVERY EVENING, First dose (after last modification) on Sat03/03/18 at 2000 Given 03/06/2018 7:55 PM TELEPHONE SUPERVISOR 20 mg Given 03/05/2018 8:28 PM TELEPHONE SUPERVISOR [address] scan flush Given 03/15/2018 10:43 PM TELEPHONE SUPERVISOR 70 mLs Intravenous, 70 mL, ONCE, On 03/15/18 at 2245, For 1 dose gadobutrol (GADAVIST) injection 11 mL Given 03/03/2018 6:47 PM TELEPHONE SUPERVISOR 11 mLs 11 mL, Intravenous, ONCE, On Sat03/03/18 at 1900, For 1 dose, Supplied by, and administered by MRI. hydrochlorothiazide (MICROZIDE) capsule 12.5 Given 8:12 AM TELEPHONE SUPERVISOR 12.5 mg mg 12.5 mg, Oral, DAILY, First dose on Sat03/07/18 at 1400 Given 03/07/2018 2:34 PM TELEPHONE SUPERVISOR 12.5 mg iopamidol (ISOVUE-370) solution 70 mL Given 03/15/2018 10:43 PM TELEPHONE SUPERVISOR 70 mLs 70 mL, Intravenous, ONCE, On 03/15/18 at 2245, For 1 dose LORazepam (ATIVAN) injection 1 mg Given 03/03/2018 5:33 PM TELEPHONE SUPERVISOR 1 mg 1 mg, Intravenous, ONCE, On Sat03/03/18 at 1145, For 1 dose, To be given 20 min prior to MRI For IV PUSH: Dilute with equal volume of NS. For ordered IV doses 0.1-4 mg give IV Push. Administer each 2mg over 1-5 minutes. LORazepam (ATIVAN) injection 1 mg Given 03/03/2018 6:19 PM TELEPHONE SUPERVISOR 1 mg 1 mg, Intravenous, ONCE, On Sat03/03/18 at 1830, For 1 dose, For IV PUSH: Dilute with equal volume of NS. For ordered IV doses 0.1-4 mg give IV Push. Administer each 2mg over 1-5 minutes. melatonin tablet 1 mg Given 03/04/2018 12:17 AM TELEPHONE SUPERVISOR 1 mg 1 mg, Oral, AT BEDTIME PRN, sleep, Starting on 03/02/18 at 2238, Do not give unless at least 6 hours of uninterrupted sleep is expected. melatonin tablet 3 mg 3 mg, Oral, AT BEDTIME PRN, sleep, Start ing on Sat03/05/18 at 1249, Do not give unless at least 6 hours of uninterrupted sleep is expe cted. ondansetron (ZOFRAN) injection 4 mg 4 mg, Intravenous, EVERY 6 HOURS PRN, nausea, vomiting , Administer over 2-5 Minutes, Starting on 03/02/18 at 224 0, This is Step 1 of nausea and vomiting management. If nausea not resolved in 15 minutes, go t o Step 2 prochlorperazine (COMPAZINE). Irritant. For ordered IV do ses 0.1-4 mg, give IV Push undiluted over 2-5 minutes. ondansetron (ZOFRAN-ODT) ODT tab 4 mg 4 mg, Oral, EVERY 6 HOURS PRN, nausea, v omiting, Starting on 03/02/18 at 2240, This is Step 1 of nausea and vomiting management. If n ausea not resolved in 15 minutes, go to Step 2 prochlorperazine (COMPAZINE). Do not push through foil backing. Peel back foil and gently remove. Place on to ngue immediately. Administration with liquid unnecessary W ith dry hands, peel back foil backing and gently remove tablet; do not push oral d isintegrating tablet through foil backing; administer immediately on tongue and oral disintegrati ng tablet dissolves in seconds; then swallow with saliva; liquid not required . perflutren diluted 1mL to 2mL with saline Given 03/03/2018 10:45 AM TELEPHONE SUPERVISOR 3 mLs (OPTISON) diluted injection 3 mL 3 mL, Intravenous, ONCE, On 03/03/18 at 1045, For 1 dose, [facility] [id number] prochlorperazine (COMPAZINE) injection 5 mg 5 mg, Intravenous, EVERY 6 HOURS PRN, nausea, vomiting , Administer over 1-2 Minutes, Starting on 03/02/18 at 224 0, This is Step 2 of nausea and vomiting management. Give if nausea not resolved 15 minutes aft er giving ondansetron (ZOFRAN). If nausea not resolved in 15 minutes, go to Step 3 metoclopramide (REGLAN), if ordered. For ordered IV dos es 0.1-10 mg, give IV Push undiluted. Each 5mg over 1 minute. prochlorperazine (COMPAZINE) Suppository 12.5 mg 12.5 mg, Rectal, EVERY 12 HOURS PRN, ra sea, vomiting, Starting on 03/02/18 at 2240, This is Step 2 of nausea and vomit ing management. Give if nausea not resolved 15 minutes after giving ondansetron (ZOF RAN). If nausea not resolved in 15 minutes, go to Step 3 metoclopramide (REGLAN), if ordered. prochlorperazine (COMPAZINE) tablet 5 mg 5 mg, Oral, EVERY 6 HOURS PRN, vomiting, Starting on 03/02/18 at 2240, This is Step 2 of nausea and vomiting management . Give if nausea not resolved 15 minutes after giving ondansetron (ZOFRAN). If na usea not resolved in 15 minutes, go to Step 3 metoclopramide (REGLAN), if ordered. senna-docusate (SENOKOT-S;PERICOLACE) 8. 6-50 MG per tablet 1 tablet 1 tablet, Oral, 2 TIMES DAILY PRN, const ipation, Starting on 03/02/18 at 2240, If no bowel movement in 24 hours, increa se to 2 tablets PO. Hold for loose stools. This is the first step of a three step constipation tr eatment. senna-docusate (SENOKOT-S;PERICOLACE) 8. 6-50 MG per tablet 2 tablet 2 tablet, Oral, 2 TIMES DAILY PRN, const ipation, Starting on 03/02/18 at 2240, Hold for loose stools. This is the first step of a thr ee step constipation treatment. sodium chloride (PF) 0.9% PF flush 10 mL Given 03/07/2018 11:53 PM TELEPHONE SUPERVISOR 10 mLs 10 mL, Intracatheter, EVERY 8 HOURS, First dose on Sat03/03/18 at 1045 Given 03/07/2018 5:39 PM TELEPHONE SUPERVISOR 10 mLs Given 03/07/2018 8:23 AM TELEPHONE SUPERVISOR 10 mLs sodium chloride 0.9% infusion New Bag 03/03/2018 6:38 AM TELEPHONE SUPERVISOR 75 mL/hr at 75 mL/hr, Intravenous, CONTINUOUS, Starting on Sat03/02/18 at 2245, Until Sat03/03/18 at 1404 Restarted 03/03/2018 1:30 AM TELEPHONE SUPERVISOR 75 mL/hr New Bag 03/02/2018 10:49 PM TELEPHONE SUPERVISOR 75 mL/hr documented in this encounter Active and Recently Administered Medications Times are shown in TELEPHONE SUPERVISOR. Scheduled Medication Order 03/06/2018 03/07/2018 03/08/2018 amLODIPine (NORVASC) tablet 10 mg 0932 (Given - Provid er: Anabel Bowen RN) 0823 (Given - Provider: Sammy Coats RN) 0812 (Given - Provider: Meño Cabral, REJI) 10 mg, Oral, DAILY, First dose on Sat03/04/18 at 0900, Hold for SBP < 100 aspirin EC tablet 325 mg 0931 (Given - Provider: Anabel Bowen RN) 0823 (Given - Provider: Sammy Coats RN) 0812 (Given - Provider: Meño Cabral, REJI) 325 mg, Oral, DAILY, First dose on Sat03/04/18 at 0900, DO NOT CRUSH. atorvastatin (LIPITOR) tablet 20 mg 1954 (Given - Provider: Cassie Arreola RN) 2015 (Given - Provider: Maegan Bowen RN) 20 mg, Oral, EVERY EVENING, First dose ( after last modification) on Sat03/03/[address] scan flush Intravenous, 100 mL, ONCE, Sat03/03/18 at 0000, For 1 dose hydrochlorothiazide (MICROZIDE) capsule 12.5 mg 1434 (Given - Provider: Sammy Coats RN) 0812 (Given - Provider: Meño Cabral, REJI) 12.5 mg, Oral, DAILY, First dose on Sat03/07/18 at 1400 iopamidol (ISOVUE-370) solution 70 mL 70 mL, Intravenous, ONCE, Sat03/03/18 at 0000, For 1 dose sodium chloride (PF) 0.9% PF flush 10 mL 0446 (Given - Provider: Bre Romano RN)0933 (Given - Provider: Anabel Bowen RN - Comment: [place] AC)1028 (Canceled Entry - Provider: Anabel Bowen RN)1826 (Given - Provider: Cassie Arreola RN) 0016 (Given - Provider: Bre Romano RN )0823 (Given - Provider: Sammy Coats, REJI)1739 (Given - Provider: Maegan Bowen RN)2353 (Given - Provider: Pao Gonzalez, REJI) 0800 (Canceled Entry - Provider: Orders Generic Provider - Comment: Automatically canceled at discontinue of medication order) 10 mL, Intracatheter, EVERY 8 HOURS, First dose on 03/03/18 at 1045 PRN Medication Order 03/06/2018 03/07/2018 03/08/2018 acetaminophen (TYLENOL) Suppository 650 mg 650 mg, Rectal, EVERY 4 HOURS PRN, mild pain, Starting 03/02/18 at 2240, Alternate ibuprofen (if ordered) with acetaminophen. Maximum acetaminophen dose from all sources = 75 mg/kg/day not to exceed 4 grams/day. acetaminophen (TYLENOL) tablet 650 mg 0554 (Given - Pr ovider: Bre Romano RN)1123 (Given - Provider: Anabel Bowen RN)1724 (Given - Provider: Thu Granados RN) 0450 (Given - Provider: Bre Romano RN) 0224 (Given - Provider: Pao Gonzalez, REJI) 650 mg, Oral, EVERY 4 HOURS PRN, mild pa in, Starting on 03/02/18 at 2240, Alternate ibuprofen (if ordered) with acetaminophen. Maximum acetaminophen dose from all sources = 75 mg/kg/day not to exceed 4 grams/day. bisacodyl (DULCOLAX) Suppository 10 mg 10 mg, Rectal, DAILY PRN, constipation, Starting 03/02/18 at 2240, Hold for loose stools. This is the third step of a three step constipation treatment. hydrALAZINE (APRESOLINE) injection 10-20 mg 10-20 mg, Intravenous, EVERY 30 MIN PRN, other, for Systolic Blood Pressure greater than 180 mmHg or Diastolic Blood Pressure greater than 105 mmHg., Administer over 1 Minutes, Starting 03/02/18 at 2238, IF Blood Pressure Goal not met: (S ystolic Blood Pressure between 100-180 mmHg, Diastolic Blood Pressure less than 105 mmHg) Begin with a 10 mg dose, wait 30 minutes, if blood pressure parameters h ave not been met then give 20 mg, if blo od pressure parameters have not been met, then start niCARdipine (CARDENE) IV continuous infusion. For ordered IV doses 1-40 mg, give IV Push undiluted over 1 minute. magnesium sulfate 4 g in 100 mL sterile water (premade) 4 g, Intravenous, Administer over 120 Mi nutes, EVERY 4 HOURS PRN, Starting 03/02/18 at 2240, magnesium supplementation, For serum Mg++ less than 1.6 mg/dL Give 4 g and recheck magnesium level 2 hours after dose, and next AM. Medication Instruction CONTINUOUS PRN, Starting 03/02/18 at 2238, Until 03/08/18 at 1205, No D5W IV solutions unless patient hypoglycemic. Pharmacy to remove all dextrose from iv fluid orders as able. melatonin tablet 3 mg 3 mg, Oral, AT BEDTIME PRN, sleep, Start ing on Sat03/05/18 at 1249, Do not give unless at least 6 hours of uninterrupted sleep is expected. naloxone (NARCAN) injection 0.1-0.4 mg 0.1-0.4 mg, Intravenous, EVERY 2 MIN PRN , opioid reversal, Starting 03/02/18 at 2238, For respiratory rate LESS than or EQUAL to 8. Partial reversal dose: 0.1 mg titrated q 2 minutes for Analgesia S colton Effects Monitoring Sedation Level of 3 (frequently drowsy, arousable, drifts to sleep during conversation).Full reversal dose: 0.4 mg bolus for Analgesia Side Effects Monitoring Sedation Level of 4 (somnolent, minimal or no response to st imulation). For ordered IV doses 0.1-2mg give IVP. Give each 0.4mg over 15 seconds in emergency situations. For non- emergent situations further dilute in 9mL of NS to facilitate titration of response. NO anticoagulation/antiplatelet medicati ons or NSAID in first 24 hours after alteplase (ACTIVASE) administration or after thrombectomy CONTINUOUS PRN, Starting 03/02/18 at 2235, Until Sat 8 at 1205 ondansetron (ZOFRAN) injection 4 mg(Linked Group 1) 4 mg, Intravenous, EVERY 6 HOURS PRN, na usea, vomiting, Administer over 2-5 Minutes, Starting on 03/02/18 at 2240, This is Step 1 of nausea and vomiting management. If nausea not resolved in 15 lizbeth jeanie, go to Step 2 prochlorperazine (COMP AZINE). Irritant. For ordered IV doses 0.1-4 mg, give IV Push undiluted over 2-5 minutes. ondansetron (ZOFRAN-ODT) ODT tab 4 mg(Linked Group 1) 4 mg, Oral, EVERY 6 HOURS PRN, nausea, v omiting, Starting on 03/02/18 at 2240, This is Step 1 of nausea and vomiting management. If nausea not resolved in 15 minutes, go to Step 2 prochlorperazine ( COMPAZINE). Do not push through foil chester hallie. Peel back foil and gently remove. Place on tongue immediately. Administration with liquid unnecessary With dry hands, peel back foil backing and gently alireza ve tablet; do not push oral disintegrati ng tablet through foil backing; administer immediately on tongue and oral disintegrating tablet dissolves in seconds; then swallow with saliva; liquid not required. Patient is already receiving mechanical prophylaxis CONTINUOUS PRN, Starting 03/02/18 at 2239, Until Sat 8 at 1205 polyethylene glycol (MIRALAX/GLYCOLAX) Packet 17 g 17 g, Oral, DAILY PRN, constipation, Sta rting 03/02/18 at 2240, Give in 8oz of water, juice, or soda. Hold for loose stools. This is the second step of a three step constipation treatment. 1 Packet = 17 grams. Mixed prescribed dose in 8 o unces of water. Follow with 8 oz. of water. potassium chloride (KLOR-CON) Packet 20-40 mEq 20-40 mEq, Oral or Feeding Tube, EVERY 2 HOURS PRN, Starting 03/02/18 at 2240, potassium supplementation, Use if unable to tolerate tablets. If Serum K+ 3.0-3.3, dose = 60 mEq po total dose (40 mEq x1 followed in 2 hours by 20 mEq x1). Re check K+ level 4 hours after dose and the next AM. If Serum K+ 2.5-2.9, dose = 80 mEq po total dose (40 mEq Q2H x2). Recheck K+ level 4 hours after dose and the n ext AM. If Serum K+ less than 2.5, See I V order. Dissolve packet contents in 4-8 ounces of cold water or juice. potassium chloride 10 mEq in 100 mL intermittent infusion wi th 10 mg lidocaine 10 mEq, Intravenous, Administer over 1 H ours, EVERY 1 HOUR PRN, Starting 03/02/18 at 2240, potassium supplementation, Infuse via PERIPHERAL LINE. Use potassium with lidocaine for pain with periphera l administration. If Serum K+ 3.0-3.3, d ose = 10 mEq/hr x4 doses (40 mEq IV total dose). Recheck K+ level 2 hours after dose and the next AM. If Serum K+ less than 3.0, dose = 10 mEq/hr x6 doses (60 mEq IV total dose). Recheck K+ level 2 hours after dose and the nex t AM. potassium chloride 10 mEq in 100 mL ster ile water intermittent infusion (premix) 10 mEq, Intravenous, Administer over 60 Minutes, EVERY 1 HOUR PRN, Starting 03/02/18 at 2240, potassium supplementation, Infuse via PERIPHERAL LINE or CENTRAL LINE. Use for central line replacement if patient weight less than 65 kg, if pa tient is on TPN with high potassium content or if unit does not stock 20 mEq bags. If Serum K+ 3.0-3.3, dose = 10 mEq/hr x4 doses (40 mEq IV total dose). Recheck K+ level 2 hours after dose and the next AM. If Serum K+ less than 3.0, dose = 10 mEq/hr x6 doses (60 mEq IV total dose). Recheck K+ level 2 hours after dose and the next AM. potassium chloride 20 mEq in 50 mL intermittent infusion 20 mEq, Intravenous, EVERY 1 HOUR PRN, S tarting 03/02/18 at 2240, potassium supplementation, Infuse via CENTRAL LINE Only. May need EKG if less than 65 kg or on TPN - Max rate is 0.3 mEq/kg/hr for p atients not on EKG monitoring. If Serum K+ 3.0-3.3, dose = 20 mEq/hr x2 doses (40 mEq IV total dose). Recheck K+ level 2 hours after dose and the next AM. If Serum K+ less than 3.0, dose = 20 mEq/hr x3 doses (60 mEq IV total dose). Recheck K+ level 2 hours after dose and the next AM. potassium chloride SA (K-DUR/KLOR-CON M) CR tablet 20-40 mEq 20-40 mEq, Oral, EVERY 2 HOURS PRN, Star ting 03/02/18 at 2240, potassium supplementation, Use if able to take PO. If Serum K+ 3.0-3.3, dose = 60 mEq po total dose (40 mEq x1 followed in 2 hours by 2 0 mEq x1). Recheck K+ level 4 hours afte r dose and the next AM. If Serum K+ 2.5- 2.9, dose = 80 mEq po total dose (40 mEq Q2H x2). Recheck K+ level 4 hours after dose and the next AM. If Serum K+ less than 2.5, See IV order. DO NOT CRUSH prochlorperazine (COMPAZINE) injection 5 mg(Linked Group 2) 5 mg, Intravenous, EVERY 6 HOURS PRN, na usea, vomiting, Administer over 1-2 Minutes, Starting on 03/02/18 at 2240, This is Step 2 of nausea and vomiting management. Give if nausea not resolved 15 mi nutes after giving ondansetron (ZOFRAN). If nausea not resolved in 15 minutes, go to Step 3 metoclopramide (REGLAN), if ordered. For ordered IV doses 0.1-10 mg, give IV Push undiluted. Each 5mg over 1 minute. prochlorperazine (COMPAZINE) Suppository 12.5 mg(Linked Group 2) 12.5 mg, Rectal, EVERY 12 HOURS PRN, ra sea, vomiting, Starting on 03/02/18 at 2240, This is Step 2 of nausea and vomiting management. Give if nausea not resolved 15 minutes after giving ondansetron (ZOFRAN). If nausea not resolved in 15 minutes, go to Step 3 metoclopramide (REGLAN), if ordered. prochlorperazine (COMPAZINE) tablet 5 mg(Linked Group 2) 5 mg, Oral, EVERY 6 HOURS PRN, vomiting, Starting on 03/02/18 at 2240, This is Step 2 of nausea and vomiting management. Give if nausea not resolved 15 minutes after giving ondansetron (ZOFRAN). If nausea not resolved in 15 minutes, go to Step 3 metoclopramide (REGLAN), if ordered. senna-docusate (SENOKOT-S;PERICOLACE) 8. 6-50 MG per tablet 1 tablet(Linked Group 3) 1 tablet, Oral, 2 TIMES DAILY PRN, const ipation, Starting on 03/02/18 at 2240, If no bowel movement in 24 hours, increase to 2 tablets PO. Hold for loose stools. This is the first step of a three step constipation treatment. senna-docusate (SENOKOT-S;PERICOLACE) 8. 6-50 MG per tablet 2 tablet(Linked Group 3) 2 tablet, Oral, 2 TIMES DAILY PRN, const ipation, Starting on 03/02/18 at 2240, Hold for loose stools. This is the first step of a three step constipation treatment. Stop alteplase (ACTIVASE) infusion IF an y signs of major systemic bleeding, any neurological deterioration, development of severe headache, sudden severe elevation of blood pressure, or new nausea or vomiting and Call provider CONTINUOUS PRN, Starting 03/02/18 at 2235, Until Sat 8 at 1205 Linked Groups Order Group 1: ondansetron (ZOFRAN-ODT) ODT tab 4 mgJump to med 4 mg, Oral, EVERY 6 HOURS PRN, nausea, v omiting, Starting on 03/02/18 at 2240
This is Step 1 of nausea and vomiting management. If nausea not resolved in 15 minutes, go t o Step 2 prochlorperazine (COMPAZINE). D o not push through foil backing. Peel back foil and gently remove. Place on tongue immediately. Administration with liquid unnecessary With dry hands, pe el back foil backing and gently remove t ablet; do not push oral disintegrating tablet through foil backing; administer immediately on tongue and oral disintegrating tablet dissolves in seconds; then swallow with saliva; liquid not required.
Or ondansetron (ZOFRAN) injection 4 mgJump to med 4 mg, Intravenous, EVERY 6 HOURS PRN, na usea, vomiting, Administer over 2-5 Minutes, Starting on 03/02/18 at 2240
This is Step 1 of nausea and vomiting management. If ra sea not resolved in 15 minutes, go to St ep 2 prochlorperazine (COMPAZINE). Irritant. For ordered IV doses 0.1-4 mg, give IV Push undiluted over 2-5 minutes.
Group 2: prochlorperazine (COMPAZINE) injection 5 mgJump to med 5 mg, Intravenous, EVERY 6 HOURS PRN, na usea, vomiting, Administer over 1-2 Minutes, Starting on 03/02/18 at 2240
This is Step 2 of nausea and vomiting management. Give if nausea not resolv ed 15 minutes after giving ondansetron ( ZOFRAN). If nausea not resolved in 15 minutes, go to Step 3 metoclopramide (REGLAN), if ordered. For ordered IV doses 0.1-10 mg, give IV Push undiluted. Each 5mg over 1 minute.
Or prochlorperazine (COMPAZINE) tablet 5 mgJump to med 5 mg, Oral, EVERY 6 HOURS PRN, vomiting, Starting on 03/02/18 at 2240
This is Step 2 of nausea and vomiting management. Give if nausea not resolved 15 minutes after giving ondansetron (ZOFR AN). If nausea not resolved in 15 minute s, go to Step 3 metoclopramide (REGLAN), if ordered.
Or prochlorperazine (COMPAZINE) Suppository 12.5 mgJump to med 12.5 mg, Rectal, EVERY 12 HOURS PRN, ra sea, vomiting, Starting on 03/02/18 at 2240
This is Step 2 of nausea and vomiting management. Give if nausea not resolved 15 minutes after giving ond ansetron (ZOFRAN). If nausea not resolve d in 15 minutes, go to Step 3 metoclopramide (REGLAN), if ordered.
Group 3: senna-docusate (SENOKOT-S;PERICOLACE) 8.6-50 MG per tablet 1 tabletJump to med 1 tablet, Oral, 2 TIMES DAILY PRN, const ipation, Starting on 03/02/18 at 2240
If no bowel movement in 24 hours, increase to 2 tablets PO. Hold for loose stools. This is the first step of a three step constipation treatment.
Or senna-docusate (SENOKOT-S;PERICOLACE) 8.6-50 MG per tablet 2 tabletJump to med 2 tablet, Oral, 2 TIMES DAILY PRN, const ipation, Starting on 03/02/18 at 2240
Hold for loose stools. This is the first step of a three step constipation treatment.
documented in this encounter Care Teams Armored Vehicle Officer Relationship Specialty Start Date End Date Clinic, [facility] PCP - General 03/02/[address] [place] [id number] documented as of this encounter
--- OUTSIDE RECORDS SUMMARY | 2022-01-20 08:11 | XMS_ITS | Encounter Summary ---
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) Velia Tuttle MD [address] [place] [address] 5 Referral ID Status Reason Start Date Expiration Date Visits Requ ested Visits Authorized [id number] Closed 03/11/2018 03/11/2019 1 1 ccupational Therapy - Closed Specialty Diagnoses / Procedures Referred By Contact Refer red To Contact Diagnoses 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 (H) Velia Tuttle MD [address] [place] [address]45 5 Referral ID Status Reason Start Date Expiration Date Visits Requ ested Visits Authorized [id number] Closed 03/11/2018 03/11/2019 1 1 ehab Therapy Physical Therapy - Closed Specialty Diagnoses / Procedures Referred By Contact Refer red To Contact Diagnoses 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 (H) Velia Tuttle MD [address] [place] [phone] 2 Referral ID Status Reason Start Date Expiration Date Visits Requ ested Visits Authorized [id number] Closed 03/11/2018 03/11/2019 1 1 EM MILL STICKER Reason for Visit Auth/Cert Specialty Diagnoses / Procedures Referred By Contact Refer red To Contact [facility] [address] [phone] Phone: Referral ID Status Reason Start Date Expiration Date Visits Requ ested Visits Authorized [id number] 1 1 Encounter Details Date Type Department Care Team Description 03/08/2018 - [facility] Velia Tuttle MD [address] [place] [id number] Cerebrovascular accident (CVA) due to bi lateral embolism of carotid arteries (H) (Primary Dx); 03/12/2018 Encounter Acute Rehabilitation Jacob Frye MD [address] [place] [address] LVH (left ventricular hypertrophy); [facility] Benign essential hypertensio n [facility] [address] [address] Social History Tobacco Use Types Packs/Day Years Used Date Never Smoker Alcohol Use Standard Drinks/Week Comments No 0 (1 standard drink = 0.6 oz pure alcoho l) Sex Assigned at Date Recorded Not on file documented as of this encounter Last Filed Vital Signs Vital Sign Reading Time Taken Comments Blood Pressure 136/62 03/12/2018 8:26 AM TANDEM M[facility] [employer]ICK[employer] Pulse 71 03/12/2018 8:26 AM [employer]DE[facility] [employer] Temperature 36.7 ??C (98.1 ??F) 03/12/2018 8:26 AM TANDE[facility] M[employer] Respiratory Rate 16 03/12/2018 8:26 AM TANDE[facility] M[employer] STICK[employer] Oxygen Saturation 93% 03/12/2018 8:26 AM TANDE[facility] M[employer] STICKER Inhaled Oxygen Concentration - - Weight 110.3 kg (243 lb 3 oz) 03/10/2018 8:01 AM [employer] M[employer] Height 175.3 cm (5' 9) 03/08/2018 12:20 PM TANDEM M[employer] STICKER Body Mass Index 35.91 03/08/2018 12:20 PM TANDEM M[employer] STICKER documented in this encounter Discharge Summaries Velia Tuttle MD - 03/12/2018 10:25 AM CST Images from the original note were not included. 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 -HLD -CARLOS -Chronic shoulder pain due to OA brief summary Raul Dickson is a 67 year old male with a PMH including but not limited to CARLOS, HTN, HLD, and OA ofthe shoulder who presented to [facility] on 03/02/18 for acute onset of left arm weakness, slurred speech, and facial droop, s/p tPA. ??Found to have multiple infarcts in the R MCA territory including Rposterior frontal lobe, right insula, right inferior frontal gyrus, and lateral aspect of the right parietal, temporal, and occipital lobes. Admitted to ARU on 03/08. rehabilitaiton course EAP SPECIALIST: Continue with moderate to higher level cognitive tasks (memory, attention, problem solving, etc). Patient has poor to limited insight on cognitive deficits. Recommend ongoing EAP SPECIALIST as outpatient. Patient is resistant to continuing speech therapy upon discharge due to limited awareness of deficits. A ll dysphagia related goals met prior to discharge. PT: Pt has decreased coordination with higher level dual task and deconditioned, will benefit from skilled therpist in outpatient setting. OT: Recommend OP OT to continue progressing IADL and to work on L side deficits. Functionally he is I with mobility and ADLs. Recommended no driving after discharge until clear by OT and a physician. Also recommended oversight wit meds and all iADLs at least initially after discharge. ?? 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 ??Recent LDL was 59. -No atrial fibrillation seen on telemetry. ??After discharge will need 30 day school bus monitor. ? 4)Pulm -CARLOS: CPAP with home settings ? 5)FENGI -NDD3 diet with thin liquids - advanced to regular 03/10/18 -PRN bowel meds: Colace, Senna, Dulcolax -MVT daily -On Mg supplementation. ? 6) -PVRs x3 acceptable. -No evidence of kidney injury seen on BMP ? 7)DVT prophylaxis -Pt is ambulating adequate distances, will not start chemoprophylaxis -On mechanical prophylaxis ? 8)Pain -Chronic shoulder pain due to OA. ??Previously has had shoulder injections. ??Tylenol PRN. ? 9)Endo -Hb A1c 6.1, consistent with pre-diabetes -Glucose checks were well controlled so stopped. -Encourage diet and lifestyle changes, follow up with PCP ? 10)Heme -No abnormalities on CBC from 03/05. ? 11)Psych -Monitor mood, consult health psych if needed ? Code status: Full code (discussed with patient) dISCHARGE MEDICATIONS Discharge Medication List as of 03/12/2018 9:07 AM START taking these medications Details acetaminophen (TYLENOL) 325 MG tablet Take 2 tablets (650 mg) by mouth every 4 hours as needed for mild pain or fever, Disp-100 tablet, OTC aspirin (ASA) 325 MG EC tablet Take 1 tablet (325 mg) by mouth daily, Disp-30 tablet, R-0, E-Prescribe CONTINUE these medications which have CHANGED Details hydrochlorothiazide (MICROZIDE) 12.5 MG capsule Take 1 capsule (12.5 mg) by mouth daily, Disp-30 capsule, R-0, E-Prescribe CONTINUE these medications which have NOT CHANGED Details amLODIPine (NORVASC) 10 MG tablet Take 10 mg by mouth daily, Historical atorvastatin (LIPITOR) 20 MG tablet Take 20 mg by mouth every evening, Historical magnesium oxide (MAG-OX) 400 MG tablet Take 400 mg by mouth every evening, Historical multivitamin, therapeutic (THERA-VIT) TABS Take 1 tablet by mouth daily, Historical Probiotic Product (PROBIOTIC DAILY PO) Take 1 tablet by mouth every evening , Historical STOP taking these medications aspirin 81 MG tablet Comments: Reason for Stopping: DISCHARGE INSTRUCTIONS AND FOLLOW UP Discharge Procedure Orders Physical Therapy Referral Standing Status: Future Standing Exp. Date: 03/11/19 Referral Type: Rehab Therapy Physical Therapy Occupational Therapy Referral Standing Status: Future Standing Exp. Date: 03/11/19 Referral Type: Occupational Therapy Speech Therapy Referral Standing Status: Future Standing Exp. Date: 03/11/19 Referral Type: Therapeutic Services CARDIOLOGY EVAL ADULT REFERRAL Referral Type: CV Cardio consult Reason for your hospital stay Order Comments: Stroke Adult [facility] Follow-up and recommended labs and tests Order Comments: -- Neurology stroke team in 4-6 weeks regarding stroke - Dr. Cyril Doherty on March 13 at 1:00. ? -- Cardiology within one week for Hay for one month as scheduled for placement on March 17 at 9:30 am. ?? -- Primary care provider in 7-10 days regarding hospitalization - Dr. Kevin Rogers on March 19 at 10:00 am. ?? -- PM&R with Velia Tuttle MD in 6-8 weeks regarding rehab needs Appointments on [place] and/or [facility] (with [facility] or [facility] provider or service). Call [phone] if you haven't heard regarding these appointments within 7 days of discharge. Activity Order Comments: Your activity upon discharge: activity as tolerated No driving until cleared by OT driving evaluation and by your physician. Order Specific Question Answer Comments Is discharge order? Yes Monitor and record Order Comments: blood pressure daily, make diary of readings to bring to the appointment with your PCP Full Code Order Specific Question Answer Comments Code status determined by: Discussion with patient/legal decision maker Diet Order Comments: Follow this diet upon discharge: regular diet Order Specific Question Answer Comments Is discharge order? Yes physical examination Most recent Vital Signs: Vitals: 03/11/18 0616 03/11/18 0900 03/11/18 1619 03/12/18 0826 BP: 139/67 137/65 126/59 136/62 BP Location: Left arm Left arm Left arm Pulse: 69 72 71 Resp: 16 16 16 Temp: 98.6 ??F (37 ??C) 97.2 ??F (36.2 ??C) 98.1 ??F (36.7 ??C) TempSrc: Oral Oral Oral SpO2: 95% 93% 93% Weight: Height: Gen: NAD, sitting in chair Cardio: RRR Pulm: clear breath sounds b/l Abd: soft, obese, non-tender Ext: wwp, no edema in bilateral lower extremities, no tenderness at calves Neuro/MSK: LUQ visual field cut, mild left hemiparesis complicated by L shoulder pain. Sensation intact. Speech clear and coherent Discharge summary was forwarded to Clinic, [facility] (PCP) at the time of discharge, so as to bridge from hospital to outpatient care. It was our pleasure to care for Raul Dickson during this hospitalization. Please do not hesitate tocontact me should there be questions regarding the hospital course or discharge plan. Velia Tuttle MD Physical Medicine & Rehabilitation I, Velia Tuttle, saw and evaluated this patient prior to discharge. 25 minutes spent in discharge, including >50% in counseling and coordination of care, medication review and plan of care recommended on follow up. EM M[employer] STICKER documented in this encounter Discharge Instructions Discharge InstructionsEranYumikomartin Tucker - 03/12/2018 8:14 AM CST Follow up appointments: -- Neurology stroke team in 4-6 weeks regarding stroke. You are scheduled to see Dr. Cyril Doherty on March 13 at 1:00. Please arrive for check in at 12:30 pm. Address [facility] [address], [address] [place] [address] -- Cardiology within one week for Andreztch for one month as scheduled for placement on March 17 at 9:30 am. -- Primary care provider in 7-10 days regarding hospitalization You are scheduled to see Dr. Kevin Rogers on March 19 at 10:00 am. Address [place] [address] [address] [place] -- PM&R with Velia Tuttle MD in 6-8 weeks regarding rehab needs They will follow up with you to schedule your appointment. If you have not heard from them in a few days, please call Frida ([phone]) or Lizz ([phone]) Address [facility] [address] [place] [address]; Floor [address] [place] [address] Phone Frida [phone] Lizz [phone] To reduce the risk of subsequent stroke there are several important factors including optimal management of anticoagulants, blood pressure, cholesterol, diabetes and smoking abstinence. Anticoagulation: You are on Aspirin Blood Pressure: Keeping your blood pressures less than 130/80 has been shown to reduce risk of recurrent stroke. Recording your blood pressure and heart rate once daily in a log book can help you and your providers make decisions on optimal management. You are encouraged to bring your log book with you to your primary physician and/or cardiology doctor visits. You are currently on amlodipine and hydrochlorothiazide to help control your blood pressure. Severallifestyle modifications have been associated with blood pressure reduction and are an important partof a comprehensive plan. These include: weight loss (if over-weight); a diet low in salt and cholesterol and rich in fruits and vegetables; regular aerobic physical activity and limited alcohol consumption. Diabetes: You do not have diabetes though it is important to continue monitoring for this in the future with your primary provider. Diet: Currently you're on regular diet. Diet can significantly affect your levels and should be part of your plan. Please see additional information from dietitian about this. Cholesterol: Traditional target levels for LDL cholesterol or bad cholesterol is less than 130 however once youhave had a stroke, your target LDL level is now less than 70. Additional recommendations such as increasing your HDL or good cholesterol and lowering your triglyceride level can also be important. Your most recent lipid panel was Lab Results Component Value Date CHOL 137 03/03/2018 Lab Results Component Value Date HDL 58 03/03/2018 Lab Results Component Value Date LDL 59 03/03/2018 Lab Results Component Value Date TRIG 100 03/03/2018 This should be followed up in 2-3 months with your primary provider. Smoking: Finally one of the most important modifiable risk factors is to not smoke. Continue to remain tobacco free! EM MILL STICKER documented in this encounter Medications at Time of Discharge Medication Sig Dispensed Refills Start Date End Date acetaminophen (TYLENOL) 325 Take 2 tablets 100 tablet 0 02/14 MG tabletIndications: (650 mg) by mouth Cerebrovascular accident every 4 hours as (CVA) due to bilateral needed for mild embolism of carotid arteries pain or fever (H) aspirin (ASA) 325 MG EC Take 1 tablet 30 tablet 0 8 tabletIndications: (325 mg) by mouth Cerebrovascular accident daily (CVA) due to bilateral embolism of carotid arteries (H) hydrochlorothiazide Take 1 capsule 30 capsule 0 03/11/2018 (MICROZIDE) 12.5 MG (12.5 mg) by capsuleIndications: mouth daily 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 Patient Response Able to follow techniques as instructed Patient Response Comments OT: pt able to ambulate from patient room to showers with CGA for steadying. Completes shower transfer using tub bench and grab bars with CGA for steadying. Mod A for bathing tasks from tub bench for BLE and thoroughness. See FIMs for details. pt seems agreeable and tolerateswell. Additional Documentation Rehab Comments AM ADLs including bathing tasks completed OT Plan OT: assess for I with toilet transfers and tasks in room, LUE strength, saad techniques withdrsg tasks, L visual scanning with fx'l mobility/transfers, L FMC, Total Session Time Total Session Time (minutes) 30 minutes (30 min self care) ARC or TCU Only What unit is patient on? Acute Rehab OT - Acute Rehab Center Time Individual Time (minutes) - enter zero if not applicable - OT 30 Group Time (minutes) - enter zero if not applicable - OT 0 Concurrent Time (minutes) - enter zero if not applicable - OT 0 Co-Treatment Time (minutes) - enter zero if not applicable - OT 0 ARC Total Session Time (minutes) - OT 30 Comprehension Functional Performance Complete independence comprehending complex/abstract ideas Expression Functional Performance Complete independence expressing complex/abstract ideas Social Interaction Functional Performance Complete independence-socially appropriate in all situations Problem Solving Functional Performance Needs increased time to make decisions and solve complex problems Memory Functional Performance Recalls all aspects of daily routine, remembers people and requests Oral Hygiene Describe performance SBA for safety in stance at sink Grooming (except oral cares) Grooming Task Performed Hair grooming;Washing hands;Washing face Grooming Comment SBA for safety in stance at sink Upper Body Dressing Describe performance Min A for overhead Clothing Utilized Shirt Lower Body Dressing (Pants/Undergarments) Describe performance Mod A for adjusting over hips and threading affected LE Clothing Utilized Pants;Underwear Lower Body Dressing putting on/taking off footwear Describe performance Max A from tub bench Shower/Bathe self Adaptive Equipment utilized for bathing Hand held shower;Grab bar;Shower stool/ extended tub bench Describe performance Mod A for BLE and buttocks Tub / Shower Transfer Assistive Devices Grab bar;Extended tub bench Tub/Shower Transfer Comment CGA for steadying Toilet Hygiene Describe performance CGA for steadying in stance for voiding urine Toilet Transfer Describe performance CGA for steadying Chair/[id number] Transfer Describe performance CGA for steadying Information copied to note by Aida Wang, Director Dermatology EM [employer]ICKER Velia Tuttle MD - 03/11/2018 4:54 PM CST Images from the original note were not included. [facility] Acute Rehabilitation Unit Daily progress note interval history Raul Dickson was seen and examined at bedside. His Serina was at bedside. He was very excited to go home tomorrow. Reviewed his medications, follow appointments and stroke secondary prevention. Answered all of his questions. Recommended no driving after discharge until clear by OT and a physician. Also recommended oversight wit meds and all iADLs at least initially after discharge. Functionally he is I with mobility and ADLs. Per EAP SPECIALIST evaluation, he has mild to moderate cognitive deficits and limited insight to his deficits. medications Scheduled meds ??? - Medication Assessment Program - Rehab Services Does not apply See Admin Instructions ??? amLODIPine 10 mg Oral Daily ??? aspirin 325 mg Oral Daily ??? atorvastatin 20 mg Oral QPM ??? hydrochlorothiazide 12.5 mg Oral Daily ??? magnesium oxide 400 mg Oral QPM ??? multivitamin, therapeutic 1 tablet Oral Daily PRN meds: acetaminophen, bisacodyl, docusate sodium, hydrALAZINE, sennosides, tetrahydrozoline physical exam BP 126/59 (BP Location: Left arm) Pulse 72 Temp 97.2 ??F (36.2 ??C) (Oral) Resp 16 Ht 1.753 m (5' 9) Wt 110.3 kg (243 lb 3 oz) SpO2 93% BMI 35.91 kg/m2 Gen: NAD, sitting in chair Pulm: non-labored in room air Abd: soft, obese, non-tender Ext: no edema in bilateral lower extremities, no tenderness at calves Neuro/MSK: unchanged LUQ visual field cut, mild left hemiparesis complicated by L shoulder pain. Sensation intact. Speechclear and coherent labs Reviewed assessment and plan Raul Dickson is a 67 year old male with a PMH including but not limited to CARLOS, HTN, HLD, and OA ofthe shoulder who presented to [facility] on 03/02/18 for acute onset of left arm weakness, slurred speech, and facial droop, s/p tPA. ??Found to have multiple infarcts in the R MCA territory including Rposterior frontal lobe, right insula, right inferior frontal gyrus, and lateral aspect of the right parietal, temporal, and occipital lobes. Admitted to ARU on 03/08. Rehabilitation - continue comprehensive acute inpatient rehabilitation program with multidisciplinary approach including therapies, rehab nursing, and physiatry following. See interval history for updates. 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, s/p tPA -Continue ASA 325 mg daily, Atorvastatin 20 mg daily ?-Will need 30 day cardiac monitoring with MCOT after discharge -Follow up with neurology in 4 weeks after discharge -Will provide ongoing education regarding stroke risk factor reduction including control of BP, dietand lifestyle changes, medication and physician follow up compliance, abd compliance with CPAP for treatment of CARLOS 3)CVS -HTN: Continue PIGS FEET FINISHER Amlodipine 10 mg daily, hydrochlorothiazide 12.5 mg daily ?-Will titrate meds to gradually bring BP down to goal of <140/90 ?-Hydralazine PRN for SBP >180 mmHg -HLD: Continue Lipitor 20 mg every evening. ??Recent LDL was 59. -No atrial fibrillation seen on telemetry. ??After discharge will need 30 day school bus monitor. ? 4)Pulm -CARLOS: CPAP with home settings -Encourage IS ? 5)FENGI -NDD3 diet with thin liquids - advanced to regular 03/10/18 -PRN bowel meds: Colace, Senna, Dulcolax -MVT daily -On Mg supplementation. ? 6) -PVRs x3 acceptable. -No evidence of kidney injury seen on BMP ? 7)DVT prophylaxis -Pt is ambulating adequate distances, will not start chemoprophylaxis -On mechanical prophylaxis ? 8)Pain -Chronic shoulder pain due to OA. ??Previously has had shoulder injections. Tylenol PRN. ? 9)Endo -Hb A1c 6.1, consistent with pre-diabetes -Glucose checks were well controlled, stopped fingersticks. -Encourage diet and lifestyle changes, follow up with PCP ? 10)Heme -No abnormalities on CBC from 03/05. ??Repeat if clinically indicated. ? 11)Psych -Monitor mood, consult health psych if needed ? 12)Social/Dispo -Anticipate discharge home -Rehab prognosis: Good -Follow up on discharge: Neurology (4 weeks), cardiology (for 30 day monitor), PCP ? Code status: Full code (discussed with patient) Velia Tuttle MD Physical Medicine & Rehabilitation EM M[employer] STICKER Anayeli Galeano, EAP SPECIALIST - 03/11/2018 9:51 AM CST 03/11/18 0944 Signing Clinician's Name / Credentials Signing clinician's name / credentials Anayeli Galeano Ms/CCc-EAP SPECIALIST Quick Adds Rehab Discipline EAP SPECIALIST Additional Documentation EAP SPECIALIST Plan EAP SPECIALIST: pt to d/c tohome tomorrow- will need supervision -- has no insight into defiticts-- isvery resitant to tx but needs ongoing sptx-- address attention, visual scanning, memory and reasoning- pt does not think he has any deficits but overall testing out with moderate and mild- moderate deficits- pt's has MS and per pt she also has poor memory- so question of how safe this d/c is? Total Session Time Total Session Time (minutes) 45 minutes ARC or TCU Only What unit is patient on? Acute Rehab EAP SPECIALIST - Acute Rehab Center Time Individual Time (minutes) - enter zero if not applicable - EAP SPECIALIST 45 (45 cognitive skills) Group Time (minutes) - enter zero if not applicable - EAP SPECIALIST 0 Concurrent Time (minutes) - enter zero if not applicable - EAP SPECIALIST 0 Co-Treatment Time (minutes) - enter zero if not applicable - EAP SPECIALIST 0 ARC Total Session Time (minutes) - EAP SPECIALIST 45 Comprehension (FIM) Functional Performance Requires extra time;Requires repetition (see comments);Mild difficulty comprehending complex/abstract ideas Comprehension Comment Completed visual scannign and reading comprehension task with 4/5 accuracy- missing some details on bottom of page- has left visual neglect which is affecting scanning FIM Score 6- Modified independence Expression (FIM) Functional Performance Complete independence expressing complex/abstract ideas FIM Score 7- Complete independence Social Interaction (FIM) Functional Performance Supervision-patient needs coaxing, monitoring, or cueing less than 10% of thetime Social Interaction Comment Pt participated in session but very angry at times and abrasive- has no insight into his deficits and does not think he needs therapy FIM Score 5- Supervision or Setup Problem Solving (FIM) Functional Performance Needs increased time to make decisions and solve complex problems Problem Solving Comment Compelted Verbal analogies test- compelx assessment of reasoning and mental flexibility- onthe WJ-R-- pt scored a raw score of 21 and a percentile rank of 77-- this is a high average score. Also coimpleted a written problem solving task- mod antoinette- pt able to compelte with 1005accuracy but with increased time needed to compelte. FIM Score 6- Modified independence Memory (FIM) Functional Performance Minimal prompting-recognizes and remembers 75-90% of the time Memory Comment compelted a memory recall task- recall of a pictured scene- reivewed with pt what he needed to attend to 1st- even with this- pt havign some difficulty- pt able to recall 10/14 details. Pt states at home he uses a calendar to help remember appointments. Pt states that he also uses a pill box to help organize meds. He further states that his has MS and that her memory is poor so that he writes notes to help her with her memory. Pt has no insight currently that his memory as been affected from this stroke FIM Score 4- Minimal contact assistance: patient expends 75% or more of effort EM MILL STICKER Velia Tuttle MD - 03/10/2018 5:17 PM CST Images from the original note were not included. [facility] Acute Rehabilitation Unit Daily progress note interval history Raul Dickson was seen and examined at bedside. Saw him early this morning and again in the afternoon to review discharge plans. Doing well. No pain or discomfort. Couldn't sleep well last night due to A/C not working and sweating all night. Wants to go home as soon as possible. Reviewed stroke risk factors, his current deficits, secondary prevention and f/u appts. Answered all the questions. Recommended no driving at discharge until clear by OT and a physician. Functionally, he is I in his room. Diet was advanced to regular diet. Completed stroke education today. Will continue therapies tomorrow. Continue to monitor his BP. I day tomorrow and discharge to home on Saturday with outpatient therapies. medications Scheduled meds ??? amLODIPine 10 mg Oral Daily ??? aspirin 325 mg Oral Daily ??? atorvastatin 20 mg Oral QPM ??? hydrochlorothiazide 12.5 mg Oral Daily ??? magnesium oxide 400 mg Oral QPM ??? multivitamin, therapeutic 1 tablet Oral Daily PRN meds: acetaminophen, bisacodyl, docusate sodium, hydrALAZINE, sennosides, tetrahydrozoline physical exam BP 142/64 (BP Location: Left arm) Pulse 71 Temp 95.9 ??F (35.5 ??C) (Oral) Resp 16 Ht 1.753 m (5' 9) Wt 110.3 kg (243 lb 3 oz) SpO2 95% BMI 35.91 kg/m2 Gen: NAD, sitting in chair Cardio: RRR Pulm: clear breath sounds b/l Abd: soft, obese, non-tender Ext: wwp, no edema in bilateral lower extremities, no tenderness at calves Neuro/MSK: LUQ visual field cut, mild left hemiparesis complicated by L shoulder pain. Sensation intact. Speech clear and coherent labs Reviewed assessment and plan Raul Dickson is a 67 year old male with a PMH including but not limited to CARLOS, HTN, HLD, and OA ofthe shoulder who presented to [facility] on 03/02/18 for acute onset of left arm weakness, slurred speech, and facial droop, s/p tPA. ??Found to have multiple infarcts in the R MCA territory including Rposterior frontal lobe, right insula, right inferior frontal gyrus, and lateral aspect of the right parietal, temporal, and occipital lobes. Admitted to ARU on 03/08. Rehabilitation - continue comprehensive acute inpatient rehabilitation program with multidisciplinary approach including therapies, rehab nursing, and physiatry following. See interval history for updates. 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, s/p tPA -Continue ASA 325 mg daily, Atorvastatin 20 mg daily ?-Will need 30 day cardiac monitoring with [facility] after discharge -Follow up with neurology in 4 weeks after discharge -Will provide ongoing education regarding stroke risk factor reduction including control of BP, dietand lifestyle changes, medication and physician follow up compliance, abd compliance with CPAP for treatment of CARLOS 3)CVS -HTN: Continue P[employer] FINISHER Amlodipine 10 mg daily, hydrochlorothiazide 12.5 mg daily ?-Will titrate meds to gradually bring BP down to goal of <140/90 ?-Hydralazine PRN for SBP >180 mmHg -HLD: Continue Lipitor 20 mg every evening. ??Recent LDL was 59. -No atrial fibrillation seen on telemetry. ??After discharge will need 30 day school bus monitor. ? 4)Pulm -CARLOS: CPAP with home settings -Encourage IS ? 5)FENGI -NDD3 diet with thin liquids - advanced to regular 03/10/18 -PRN bowel meds: Colace, Senna, Dulcolax -MVT daily -On Mg supplementation. ??Check with next blood draw. -No electrolyte abnormalities seen on BMP from 03/05, but potassium was on the low end at 3.5. 3.6 03/10/18 ? 6) -PVRs x3 were low, may discontinue checks. -No evidence of kidney injury seen on BMP ? 7)DVT prophylaxis -Pt is ambulating adequate distances, will not start chemoprophylaxis -Will order mechanical prophylaxis ? 8)Pain -Chronic shoulder pain due to OA. ??Previously has had shoulder injections. Tylenol PRN. ? 9)Endo -Hb A1c 6.1, consistent with pre-diabetes -Glucose checks were well controlled, will not order fingersticks at this time -Encourage diet and lifestyle changes, follow up with PCP ? 10)Heme -No abnormalities on CBC from 03/05. ??Repeat if clinically indicated. ? 11)Psych -Monitor mood, consult health psych if needed ? 12)Social/Dispo -Anticipate discharge home -ELOS 7 days -Rehab prognosis: Good -Follow up on discharge: Neurology (4 weeks), cardiology (for 30 day monitor), PCP ? Code status: Full code (discussed with patient) Velia Tuttle MD Physical Medicine & Rehabilitation I spent a total of 40 minutes [id number] or managing the care of Raul Dickson. Over 50% of my time on the unit was spent counseling the patient and coordinating care. See note for details. EM MILL STICKER Betito Beard, MAGALIS - 03/10/2018 12:15 PM CST Clinical Impressions: Normal swallow EAP SPECIALIST present for assessment of swallowing. Completed oral [facility] [place] [facility] exam and pt demonstrates grossly normal oral mechanism. EAP SPECIALIST assessed oral trials of regular solids and thin liquids. Pt tended to take large bites while feeding. He demonstrated adequate oral prep phase, timely oral phase and intact pharyngeal and esophageal phases. Pt demonstrated no s/sx of aspiraiton during the evaluation. No significant oral residue. Denies globus sensation following swallows. Swallowing is normal, eval only and EAP SPECIALIST upgraded to regular solids and thin liquids. 03/10/18 1200 General Information Onset Date 03/02/18 Start of Care Date 03/08/[address] Frye Patient Profile Review/OT: Additional Occupational Profile Info See Profile for full history and prior level of function Patient/Family Goals Statement to eat normal food Swallowing Evaluation Bedside swallow evaluation Mode of current nutrition Oral diet Type of oral diet Dysphagia diet level 3;Thin liquid Respiratory Status Room air Clinical Swallow Evaluation Oral Musculature generally intact Structural Abnormalities none present Dentition present and adequate Mucosal Quality adequate Mandibular Strength and Mobility intact Oral Labial Strength and Mobility WFL Lingual Strength and Mobility WFL Velar Elevation intact Buccal Strength and Mobility intact Laryngeal Function Cough;Throat clear;Swallow;Voicing initiated;Dry swallow palpated Additional Documentation Yes Clinical Swallow Eval: Thin Liquid Texture Trial Mode of Presentation, Thin Liquids self-fed Volume of Liquid or Food Presented 8 oz thin liquids Oral Phase of Swallow WFL Pharyngeal Phase of Swallow intact Diagnostic Statement Pt demonstrated grossly normal swallow with and without straw Clinical Swallow Eval: Solid Food Texture Trial Mode of Presentation, Solid self-fed Volume of Solid Food Presented 1 hamburger, chips, canteloup Oral Phase, Solid WFL Pharyngeal Phase, Solid intact Diagnostic Statement Pt demonstrated normal swallow Esophageal Phase of Swallow Patient reports or presents with symptoms of esophageal dysphagia No Swallow Eval: Clinical Impressions Skilled Criteria for Therapy Intervention No problems identified which require skilled intervention Treatment Diagnosis Pt demonstrates normal swallow Diet texture recommendations Regular diet;Thin liquids Clinical Impression Comments Pt demonstrated grossly normal swallow with thin liquids and regular solids. Oral mechanism appeared to be grossly normal per oral mech eval. No problems identified which require intervention. pt demonstrated no significant oral cavity residue following solids prior to drin hallie. No s/sx of aspiration at any point during the evaluation. Total Evaluation Time Total Evaluation Time (Minutes) 30 Betito Beard MS, CCC-EAP SPECIALIST EM MILL STICKER Shanel Tena, PT - 03/10/2018 11:26 AM CST 03/10/18 1100 Signing Clinician's Name / Credentials Signing clinician's name / credentials Shanel Tena DPT Functional Gait Assessment (Gianna Ron, Andra GYeny F., et al. (2004)) 1. GAIT LEVEL SURFACE 3 2. CHANGE IN GAIT SPEED 3 3. GAIT WITH HORIZONTAL HEAD TURNS 3 4. GAIT WITH VERTICAL HEAD TURNS 3 5. GAIT AND PIVOT TURN 3 6. STEP OVER OBSTACLE 3 7. GAIT WITH NARROW BASE OF SUPPORT 2 8. GAIT WITH EYES CLOSED 2 9. AMBULATING BACKWARDS 2 10. STEPS 3 Total Functional Gait Assessment Score TOTAL SCORE: (MAXIMUM SCORE 30) 27 Functional Gait Assessment (FGA): The FGA assesses postural stability during various walking tasks. Gait assistive device used: no assistive device Patient Score: 27/30 Scores of <22/30 have been correlated with predicting falls in community- dwelling older adults according to Ariadne & Dougie 2010. Scores of <18/30 have been correlated with increased risk for falls in patients with Parkinsons Disease according to Thom Cardona Zhou et al 2014. Minimal Detectable Change for patients with acute/chronic stroke = 4.2 according to Thichin & Ritschel 2009 Minimal Detectable Change for patients with vestibular disorder = 8 according to Ariadne & [id number] Assessment (rationale for performing, application to patient? s function & care plan): Test performed to assess pt's dynamic balance with higher level demands. Pt performs well with SBA, normalizing gait pattern with score of 27/30 indicating a minimal falls risk. Pt has challenges with tasks requiring greater amount of coordination in LEs as indicated by reduced speed and pathway deviations butno loss of balance throughout testing. Minutes billed as physical performance test: 10 EM MILL STICKER Anayeli Galeano, EAP SPECIALIST - 03/10/2018 10:00 AM CST 03/10/18 0956 Signing Clinician's Name / Credentials Signing clinician's name / credentials Anayeli Galeano Ms/CCC-EAP SPECIALIST [facility] Rehab Discipline EAP SPECIALIST Additional Documentation EAP SPECIALIST Plan completed WJ-R visual auditory learning- can complete Rbans and verbal analogies as tx-- continue with visual scanning and cognition goals- for swallow plan- see prior EAP SPECIALIST note; pt has no insight into defitics- high safety risk at this point and is wanting to go home soon; also work on writing goals Total Session Time Total Session Time (minutes) 30 minutes ARC or TCU Only What unit is patient on? Acute Rehab EAP SPECIALIST - Acute Rehab Center Time Individual Time (minutes) - enter zero if not applicable - EAP SPECIALIST 30 (30 cognitive skills) Group Time (minutes) - enter zero if not applicable - EAP SPECIALIST 0 Concurrent Time (minutes) - enter zero if not applicable - EAP SPECIALIST 0 Co-Treatment Time (minutes) - enter zero if not applicable - EAP SPECIALIST 0 ARC Total Session Time (minutes) - EAP SPECIALIST 30 Memory (FIM) Functional Performance Moderate prompting-recognizes and remembers 50-74% of the time Memory Comment completed wJ-R visual auditory learning- pt socred a rasw score of 22 and a percentile rankof 13- this is a moderately low score onthis test- pt has no insight into his memory deficits FIM Score 3- Moderate assistance: patient expends between 50 and 74% of effort EM MILL STICKER Iesha Santiago LSW - 03/10/2018 12:23 AM CST 03/09/18 190 Living Arrangements Lives With spouse Living Arrangements house Discharge Needs Assessment Equipment Currently Used at Home none Transportation Available family or friend will provide Values Beliefs and Spiritual Care F: Alyson: Do you have a connection with a alyson community, orthodox, or mormonism group? yes The name of the alyson community, orthodox, or mormonism group is: (Synagogue) Social Work: Initial Assessment with Discharge Plan Patient Name: Raul Dickson : 1950 Age: [age] year old Completed assessment with: patient Admitted to ARU: 03/08/18 Presenting Information Date of SW assessment: 03/09/18 Health Care Directive: none Primary Health Care Agent: Next-of-kin () would be surrogate decision-maker if necessary Secondary Health Care Agent: n/a Living Situation: lives with in house with 1 step entry and 6 inside Previous Functional Status: independent DME available: none Patient and family understanding of hospitalization: stroke Cultural/Language/Spiritual Considerations: speaks [place], Synagogue Physical Health Reason for admission: acute ischemic stroke in right frontal lobe due to embolism Provider Information Primary Care Physician:[facility] (Dr. Kevin Rogers) Mental Health/Chemical Dependency: Diagnosis:none Alcohol/Tobacco/Narcotics: none Support/Services in Place: n/a Services Needed/Recommended: health psychologist available if interested during stay Sexuality/Intimacy: heterosexual Support System Marital Status: ; -Maegan (has multiple sclerosis, undergoing sleep study tonight) Family support: daughter-Abiola & daughter-Irene (both local) Other support available: none mentioned Community Resources Current in home services: n/a Previous services: outpatient PT at [facility] in [place] other options) Financial/Employment/Education Employment Status: retired; former job at [employer] Income Source: Social Security fdc Education: high school; automotive classes Financial Concerns: none Insurance: Medicare/BCBS Discharge Plan Patient and family discharge goal: home with & recommended outpatient therapy services Provided education on discharge plan: familiar with outpatient therapy Patient agreeable to discharge plan: tbd Provided education and attained signature for Medicare IM and IRF Patient Rights and Privacy Information provided to patient : yes Provided patient with [place] Stroke Association resources: declined Barriers to discharge: none identified Discharge Recommendations Disposition: home with & recommended outpatient therapy services Transportation Needs: daughter Name of Transportation Company and Phone: n/a Additional comments D: See H&P for full medical background. I: Met with patient to complete assessment and social work consult. A: Patient is doing well. Supportive family who is involved. P: SW will follow and assist as needed. Please invite to Care Conference: Julianlonnieramandeep () [phone] or [phone] Abiola (dtr) [phone] MICHELE Kearns Weekend Rehabilitation Counsellor Pager: [phone] EM MILL STICKER GlassSharron de la vega - 03/09/2018 5:12 PM CST 03/09/18 1200 General Information, EAP SPECIALIST Type of Evaluation Speech and Language;Cognitive-Linguistic Type of Visit Initial Start of Care Date 03/08/18 Onset of Illness/Injury or Date of Surgery - Date 03/02/[address] Frye Pertinent History of Current Problem Raul Dickson is a 67 year old male with a PMH including but not limited to CARLOS, HTN, HLD, and OA of the shoulder who presented to [facility] on 03/02/18 for acute onset of left arm weakness, slurred speech, and facial droop. TPA was administered, after which he hadincreased symptoms but a CT head did not show hemorrhage. A CT perfusion study showed a small area in the right frontal lobe suggestive of ischemia, but CTA of the head and neck showed no significant occlusions. He was transferred to [facility] for further care where workup included an MRI which showed infarcts in the R MCA territory including R posterior frontal lobe, right insula, right inferior frontal gyrus, and lateral aspect of the right parietal, temporal, and occipital lobes. Etiology of stroke felt to be embolism of undetermined source. General Observations Pt stated no changes with communication or cognitive- linguistic skills post-CVA. General Info Comments Pt seen prior during hospitalization for swallowing deficits. No prior communication or cognitive-linguistic evaluation. Speech Speech Comments WFL Language: Auditory Comprehension (understanding of spoken language) Tests were administered at the following levels Moderate (routine daily activities);Complex (vocation/community/social activities) Two Step Commands (out of 5 total) 5 Yes/No Sentence and Simple Paragraph; [place] Diagnostic Aphasia Exam 3 short (out of 6 total) 6 Commands; [place] Diagnostic Aphasia Exam 3 (out of 15 total) 15 Functional Assessment Scale (Auditory Comprehension) No Impairment Comments (Auditory Comprehension) WFL Language: Verbal Expression (use of spoken language to express information) Tests were administered at the following levels Moderate (routine daily activities);Complex (vocation/community/social activities) [place] Naming Test, short form (out of 15 total) 15 Define Words; [place] Test for Differential Diagnosis Of Aphasia (out of 10 total) 9.5 Functional Assessment Scale (Verbal Expression) No Impairment Comments (Verbal Expression) WFL Reading Comprehension (understanding of written language) Tests were administered at the following levels Moderate (routine daily activities);Complex (vocation/community/social activities) Sentences and Paragraphs; [place] Diagnostic Aphasia Exam (out of 10 total) 9 Practical Reading (out of 7 total) 6 Functional Assessment Scale (Reading Comprehension) Mild Impairment Comments (Reading Comprehension) Visual scanning deficit, noted inattention to L side. Pt often missed words on L side, notably tasks with multiple lines. Benefitted from highlighted border on L. Written Expression (use of writing to express information) Tests were administered at the following levels Moderate (routine daily activities) Generate Sentences; [place] Test for Differential Diagnosis Of Aphasia (out of 6 total) 3 Functional Assessment Scale (Written Expression) Mild Impairment Comments (Written Expression) Limited intake. Pt stated he rarely writes. Noted crowding of letters/words, no punctuation used, few spelling errors. Pragmatics (the social or functional use of a language) Functional Assessment Scale (Pragmatics) No Impairment Cognitive Status Examination Attention impaired (difficulty w/ alternating attention task, refused flexible) Behavioral Observations alert Visual Impairments Include visual scanning (inattention to L side) Short Term Memory impaired (2/3 words, 5/8 story details) Reasoning impaired (numerical reasoning 1/2, category exclusion 2/3.) Organization (impaired, ) Additional cognitive-linguistic evaluation indicated yes;Nidia-Darinel;RBANS Cognitive Status Exam Comments Deficits noted for higher-level attention, memory, and reasoning. General Therapy Interventions Planned Therapy Interventions Cognitive Treatment;Language Cognitive treatment (Memory, attention, reasoning) Language Reading comprehension (Visual scanning) Clinical Impression, EAP SPECIALIST Eval Criteria for Skilled Therapeutic Interventions Met Yes EAP SPECIALIST Diagnosis Mild/moderate cognitive deficits; mild visual scanning deficits 2/2 CVA Rehab Potential Good, to achieve stated therapy goals Therapy Frequency Daily Predicted Duration of Therapy Intervention (days/wks) 10 days Anticipated Discharge Disposition Home with Outpatient Therapy Risks and Benefits of Treatment have been explained. Yes Patient, Family & other staff in agreement with plan of care Yes Clinical Impression Comments Pt seen for communication and cognitive-linguistic evaluation. Pt presents with mild reading comprehension deficit 2/2 inattention to L side. Pt demonstrated mild deficits with written expression, noted crowding of letters, few spelling errors, no punctuation. Pt also presents with mild- moderate cognitive/linguistic deficits in the areas of memory, attention, and reasoning, sequencing. Pt is below baseline at this time and would benefit from skilled intervention for increased independence and safety in order to return home. Total Evaluation Time Total Evaluation Time (Minutes) 60 EM MILL STICKER Associated attestation - Cassie Appiah, EAP SPECIALIST - 03/09/2018 5:21 PM TANDEM MILL STICKER Supervising Only attestation Edmund Jones, PT - 03/09/2018 4:34 PM CST 03/09/18 1330 Living Environment Lives With spouse Living Arrangements house Home Accessibility bed and bath on same level Number of Stairs to Enter Home 1 Number of Stairs Within Home 6 (5 + 6, split level 1 rail) Transportation Available family or friend will provide Living Environment Comment split entry home; 1 step to enter; vs garage 4 steps with a rail to the basement Self-Care Dominant Hand right Usual Activity Tolerance moderate Current Activity Tolerance fair Regular Exercise no Equipment Currently Used at Home none Activity/Exercise/Self-Care Comment 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 ambulation;transferring;toileting;bathing;dressing Prior Functional Level Comment independent with all activities including hobby of restoring cars; previously walked consistently with his , but due to her MS, this has been more difficult. General Information Onset of Illness/Injury or Date of Surgery - Date 03/02/18 Referring Physician Jacob Frye MD Patient/Family Goals Statement 1) increase independence while the hospital; 2) get home safely Pertinent History of Current Problem (include personal factors and/or comorbidities that impact the POC) Raul Dickson is a 67 year old male with a PMH including but not limited to CARLOS, HTN, HLD, and OA of the shoulder who presented to [facility] on 03/02/18 for acute onset of left arm weakness, slurred speech, and facial droop, s/p tPA. Found to have multiple infarcts in the R MCA territory including R posterior frontal lobe, right insula, right inferior frontal gyrus, and lateral aspect of the right parietal, temporal, and occipital lobes. per MD H&P. Precautions/Limitations fall precautions Weight-Bearing Status - LUE weight-bearing as tolerated Weight-Bearing Status - RUE weight-bearing as tolerated Weight-Bearing Status - LLE weight-bearing as tolerated Weight-Bearing Status - RLE weight-bearing as tolerated Heart Disease Risk Factors High blood pressure;Lack of physical activity;Dislipidemia;Overweight;Family history Cognitive Status Examination Orientation orientation to person, place and time Level of Consciousness alert Follows Commands and Answers Questions 100% of the time Personal Safety and Judgment other (Must comment) (TBA) Memory intact (for PT purposes, see EAP SPECIALIST/OT notes for additional information) Cognitive Comment pt feels he is approaching baseline; Pain Assessment Patient Currently in Pain No Integumentary/Edema Integumentary/Edema no deficits were identifed Posture Posture Forward head position;Protracted shoulders Posture Comments age appropriate Range of Motion (ROM) ROM Comment ROM WNL's x 4 extremities, AROM Strength Strength Comments 5/5 all LE muscles except L hip flexion 4+/5 ARC Assessment Only Acute Rehab FIM See FIM scores for Mobility/ADL Assessment Sensory Examination Sensory Perception Comments intact to light touch localization all extremities, >95% Coordination Coordination Comments PT: impaired rapid supination pronation, finger to nose and finger to thumb testing; LE's grossly normal with toe tapping seated Muscle Tone Muscle Tone Comments no clonus or synergy Modality Interventions Planned Modality Interventions Electrical Stimulation/Russion Stimulation;Cryotherapy;Thermotherapy:Hydrocollator Packs General Therapy Interventions Planned Therapy Interventions balance training;bed mobility training;fine motor coordination training;gait training;groups;motor coordination training;neuromuscular re-education;ROM;strengthening;stretching;transfer training;visual perception;risk factor education;home program guidelines;progressive activity/exercise Clinical Impression Criteria for Skilled Therapeutic Intervention yes, treatment indicated PT Diagnosis Pt demonstrates impaired motor control UE > LE, balance, gait, subjective change in L sided visual/perception, all increasing fall risk and is appropriate for skilled PT in an intensivesetting to return home. Influenced by the following impairments as in PT dx Functional limitations due to impairments as in PT dx Clinical Presentation Evolving/Changing Clinical Presentation Rationale area involved with CVA, visual, motor control inolvement Clinical Decision Making (Complexity) Moderate complexity Therapy Frequency` daily Predicted Duration of Therapy Intervention (days/wks) 5-7 days Anticipated Equipment Needs at Discharge other (see comments) (TBA) Anticipated Discharge Disposition Home Risk & Benefits of therapy have been explained Yes Patient, Family & other staff in agreement with plan of care Yes Total Evaluation Time Total Evaluation Time (Minutes) 45 PT eval complete as above; Demonstrates impaired motor control L UE L LE; Grossly normal gait exceptasymmetrical arm swing; Continue to monitor for inattention vs field cut, but not gross on exam today; Alarms on for safety; Pt is agreeable. Tolerated eval well; Edmund Jones, PT 03/09/2018 EM MILL STICKER Bebeto Brown, OTR - 03/09/2018 4:07 PM CST 03/09/18 1000 Quick Adds Type of Visit Initial Occupational Therapy Evaluation Living Environment Lives With spouse Living Arrangements house Home Accessibility bed and bath on same level;stairs to enter home;stairs within home;tub/shower is not walk in Number of Stairs to Enter Home 1 Number of Stairs Within Home 6 Stair Railings at Home other (see comments) Transportation Available car;family or friend will provide Living Environment Comment pt lives in split-entry home with spouse. 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 TPAwas administered, after which he had increased symptoms but a CT head did not show hemorrhage. A CT perfusion study showed a small area in the right frontal lobe suggestive of ischemia, but CTA of the head and neck showed no significant occlusions. He was transferred to [facility] for further care where workup included an MRI which showed infarcts in the R MCA territory including R posterior frontal lobe, right insula, right inferior frontal gyrus, and lateral aspect of the right parietal, temporal, and occipital lobes. An echo showed an EF of 60-65% with no atrial shunt seen. Etiology of stroke felt to be embolism of undetermined source. He was started on full dose aspirin, and plan for 30 day cardiac monitoring as an outpatient. He has been upgraded to an NDD3 diet per speech pathology. Precautions/Limitations fall precautions Heart Disease Risk Factors High blood pressure;Lack of physical activity General Observations cooperative Cognitive Status Examination Orientation orientation to person, place and time Level of Consciousness alert Able to Follow Commands WNL/WFL Personal Safety (Cognitive) impulsive;decreased insight to deficits Range of Motion (ROM) ROM Comment BUE AROM WFL Strength Strength Comments LUE weakness noted Hand Strength Left hand beef grader (pounds) 30 pounds Right hand beef grader (pounds) 60 pounds Hand Strength Comments Decreased L hand strength Coordination Fine Motor Coordination L FMC and dexterity impairment Left hand, nine hole peg test (seconds) 62 Right hand, nine hole peg test (seconds) 33 Left hand, Box and Block test (cubes transferred in 1 minute) 29 Right hand, Box and Block test (cubes transerred in 1 minute) 38 Clinical Impression Criteria for Skilled Therapeutic Interventions Met yes, treatment indicated OT Diagnosis ADL skills Influenced by the following impairments FMC and dexterity impairment, LUE weakness, and mild L neglect Assessment of Occupational Performance 3-5 Performance Deficits Identified Performance Deficits dressing, toileting, bathing, g/h tasks, and mobility Clinical Decision Making (Complexity) Moderate complexity Therapy Frequency daily Predicted Duration of Therapy Intervention (days/wks) 7-10 days Anticipated Equipment Needs at Discharge tub bench Anticipated Discharge Disposition Home with Outpatient Therapy Risks and Benefits of Treatment have been explained. Yes Patient, Family & other staff in agreement with plan of care Yes Clinical Impression Comments pt presents with LUE weakness, L FMC impairment, and mild L neglect impacting safety and independ with BADLs, IADLs, and mobility. pt will beneift from skilled OT services daily for 7-10 days in order to return home with spouse and OP OT services. Total Evaluation Time Total Evaluation Time (Minutes) 30 GAMA Myrick/Waleska Jacob Pollard MD - 03/09/2018 10:06 AM CST Images from the original note were not included. [facility] Acute Rehabilitation Unit Daily progress note INTERVAL HISTORY No acute events overnight. Mr. Dickson slept well last night and this morning has no concerns or complaints. Therapy evaluations to take place today. He is hoping he will be cleared to ambulate to the bathroom on his own. Denies chest pain or shortness of breath. MEDICATIONS Scheduled: ??? amLODIPine 10 mg Oral Daily ??? aspirin 325 mg Oral Daily ??? atorvastatin 20 mg Oral QPM ??? hydrochlorothiazide 12.5 mg Oral Daily ??? magnesium oxide 400 mg Oral QPM ??? multivitamin, therapeutic 1 tablet Oral Daily PRN: acetaminophen, bisacodyl, docusate sodium, hydrALAZINE, sennosides, tetrahydrozoline PHYSICAL EXAM Patient Vitals for the past 24 hrs: BP Temp Temp src Pulse Resp SpO2 Height Weight 03/09/18 0757 135/76 96.8 ??F (36 ??C) Oral 72 18 95 % - - 03/08/18 2310 143/67 99.1 ??F (37.3 ??C) Oral 66 20 90 % - - 03/08/18 2006 137/69 97.7 ??F (36.5 ??C) Oral 70 18 95 % - - 03/08/18 1715 155/73 96.3 ??F (35.7 ??C) Oral 62 18 94 % - - 03/08/18 1220 150/75 97.5 ??F (36.4 ??C) Oral 66 16 94 % 1.753 m (5' 9) 111.2 kg (245 lb 3.2 oz) GEN: NAD, pleasant and cooperative HEENT: NC/AT CVS: RRR, S1+S2, no m/r/g PULM: Non-labored breathing, CTA b/l, no w/r/r ABD: Soft, NT, ND, bowel sounds present EXT: No LE edema or calf tenderness b/l Neuro: Answers appropriately, follows commands LABS CBC RESULTS: Recent Labs Lab Test 03/05/18 0851 WBC 9.2 RBC 5.16 HGB 15.3 HCT 44.4 MCV 86 MCH 29.7 MCHC 34.5 RDW 13.6 PLT 210 Last Comprehensive Metabolic Panel: Sodium Date Value Ref Range Status 03/05/2018 138 133 - 144 mmol/L Final Potassium Date Value Ref Range Status 03/05/2018 3.5 3.4 - 5.3 mmol/L Final Chloride Date Value Ref Range Status 03/05/2018 104 94 - 109 mmol/L Final Carbon Dioxide Date Value Ref Range Status 03/05/2018 26 20 - 32 mmol/L Final Anion Gap Date Value Ref Range Status 03/05/2018 8 3 - 14 mmol/L Final Glucose Date Value Ref Range Status 03/05/2018 125 (H) 70 - 99 mg/dL Final Urea Nitrogen Date Value Ref Range Status 03/05/2018 13 7 - 30 mg/dL Final Creatinine Date Value Ref Range Status 03/05/2018 0.83 0.66 - 1.25 mg/dL Final GFR Estimate Date Value Ref Range Status 03/05/2018 >90 >60 mL/min/1.7m2 Final Comment: Non GFR Calc Calcium Date Value Ref Range Status 03/05/2018 8.9 8.5 - 10.1 mg/dL Final Recent Labs Lab 03/07/18 1953 03/07/18 1651 03/05/18 0851 03/04/18 0530 03/03/18 1616 03/03/18 1201 03/03/18 0808 03/03/18 0550 03/03/18 0406 03/02/18 1738 GLC -- -- 125* 131* -- -- -- 135* -- -- 170* BGM 118* 91 -- -- 126* 103* 132* -- 130* < > -- < > = values in this interval not displayed. ASSESSMENT Raul Dickson is a 67 year old male with a PMH including but not limited to CARLOS, HTN, HLD, and OA ofthe shoulder who presented to [facility] on 03/02/18 for acute onset of left arm weakness, slurred speech, and facial droop, s/p tPA. Found to have multiple infarcts in the R MCA territory including R posterior frontal lobe, right insula, right inferior frontal gyrus, and lateral aspect of the right parietal, temporal, and occipital lobes. PLAN Rehabilitation -Continue with PT, OT, and speech therapies for 60 minutes each per day to improve strength, coordination, balance, and endurance which are leading to functional limitations in ambulation, swallowing, and ADLs. Also needs multidisciplinary approach including rehab nursing, social work, and physiatry to monitor progress and achieve discharge goals. 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 Recent LDL was 59. -No atrial fibrillation seen on telemetry. After discharge will need 30 day school bus monitor. ?? 4)Pulm -CARLOS: CPAP with home settings -Encourage IS ?? 5)FENGI -NDD3 diet with thin liquids -PRN bowel meds: Colace, Senna, Dulcolax -MVT daily -On Mg supplementation. Check with next blood draw. -No electrolyte abnormalities seen on BMP from 03/05, but potassium was on the low end at 3.5. CheckBMP and Mg tomorrow. ?? 6) -PVRs x3 were low, may discontinue checks. -No evidence of kidney injury seen on BMP ?? 7)DVT prophylaxis -Pt is ambulating adequate distances, will not start chemoprophylaxis -Will order mechanical prophylaxis ?? 8)Pain -Chronic shoulder pain due to OA. Previously has had shoulder injections. Tylenol PRN. ?? 9)Endo -Hb A1c 6.1, consistent with pre-diabetes -Glucose checks were well controlled, will not order fingersticks at this time -Encourage diet and lifestyle changes, follow up with PCP ?? 10)Heme -No abnormalities on CBC from 03/05. Repeat if clinically indicated. ?? 11)Psych -Monitor mood, consult health psych if needed ?? 12)Social/Dispo -Anticipate discharge home -ELOS 7 days -Rehab prognosis: Good -Follow up on discharge: Neurology (4 weeks), cardiology (for 30 day monitor), PCP ?? Code status: Full code (discussed with patient) ?? Kirk Frye MD Department of Rehabilitation Medicine Pager: [phone] Time Spent on this Encounter I, Kirk Frye, spent a total of 20 minutes bedside and on the inpatient unit today managing the care of Raul Dickson. Over 50% of my time on the unit was spent counseling the patient and /or coordinating care regarding reasoning for labs, and medical and functional progress. See note for details. EM MILL STICKER documented in this encounter H&P Notes Jacob Frye MD - 03/08/2018 4:39 PM CST Post Admission Physician Evaluation: I have compared name's condition on admission to acute rehabilitation to that outlined in the preadmission screen. History and physical exam performed by me. No significant differences are identified and the patient remains appropriate for an inpatient rehabilitation facility level of care to manage medical issues and address functional impairments due to (rehabilitation diagnosis) CVA. Comorbid medical conditions being managed: CARLOS, dysphagia, HTN, HLD Prior functional level: Independent with ambulation, mobility, ADLs, and IADLs Present function: PT: Pt making great progress in therapy. Focus on gait training with ENFORCEMENT MANAGER LUE progressing to no UE support, close CGA, cues for improved gait mechanics and LLE ft clearance, good improvement noted. Avoided objects on L side of hallway well. No lateral path deviation or LOB. Pt engaged in static and dynamicbalance activities ?? OT: CGA with transfers and ambulation without AD. Patient does not like the walker and may benefit more from a cane/quad cane. Completed standing ADL tasks with overall SBA. Needs Min A for UE dressing andoverall Mod A for LE dressing. Cues needed, as patient still has some mild L inattention. ?? EAP SPECIALIST: Pt completed swallowing Tx this AM. Pt tolerated 1 cracker and 5 sips of water by cup. No overt s/sxof aspiration noted. Pt demonstrated increased oral transit time with cracker, demonstrating prolonged mastication. Pt required min cues to alternate solids/liquids during po intake. Pt completed x10 reps of x5 oropharyngeal strengthening exercises. Lingual and labial fatigue was observed as number ofrepetitions increased. Despite max cues, pt unable to sustain bite hold on tongue necessary to complete Chio exercise. Recommend continuation of Dysphagia Diet Level 3 with thin liquids.??Recommend continuation of swallowing Tx to maximize swallow function and advance diet as indicated, as well as co mpletion of cognitive-communication evaluation. ?? Anticipated rehabilitation course: Anticipate will be able to discharge home at a modified independent level for ambulation and ADLs. Would not recommend driving at this time. Will benefit from intensive rehabilitation includin minutes each of PT, OT and EAP SPECIALIST Rehabilitation nursing Close management by physiatry Prognosis: Good Estimated length of stay: 7 days Kirk Frye MD Department of Rehabilitation Medicine Pager: [phone] EM MILL STICKER Jacob Frye MD - 03/08/2018 11:23 AM CST Images from the original note were not included. [facility] Acute Rehabilitation Unit Admission History and Physical chief complaint Left sided weakness REHAB DIAGNOSIS CVA History of Present illness Raul Dickson is a 67 year old male with a PMH including but not limited to CARLOS, HTN, HLD, and OA ofthe shoulder who presented to [facility] on 03/02/18 for acute onset of left arm weakness, slurred speech, and facial droop. TPA was administered, after which he had increased symptoms but a CT head didnot show hemorrhage. A CT perfusion study showed a small area in the right frontal lobe suggestive of ischemia, but CTA of the head and neck showed no significant occlusions. [facility] included an MRI which showed infarcts in the R MCA territory includingR posterior frontal lobe, right insula, right inferior frontal gyrus, and lateral aspect of the right parietal, temporal, and occipital lobes. An echo showed an EF of 60-65% with no atrial shunt seen. Etiology of stroke felt to be embolism of undetermined source. He was started on full dose aspirin, and plan for 30 day cardiac monitoring as an outpatient. He has been upgraded to an NDD3 diet per speech pathology. Currently Mr. Dickson denies chest pain, shortness of breath, problems with bowel or bladder, headaches, changes in vision, lightheadedness, or problems with swallowing. He says he was told his diet wasgoing to be upgraded to regular, but most recent notes continued to recommend NDD3. His right eye isred, and he says it is pruritic. He denies any memory or cognitive deficits, and his family states he is at his baseline cognitive status. FUNCTIONAL HISTORY Current Functional Status: PT: Pt making great progress in therapy. Focus on gait training with ENFORCEMENT MANAGER LUE progressing to no UE support, close CGA, cues for improved gait mechanics and LLE ft clearance, good improvement noted. Avoided objects on L side of hallway well. No lateral path deviation or LOB. Pt engaged in static and dynamicbalance activities OT: CGA with transfers and ambulation without AD. Patient does not like the walker and may benefit more from a cane/quad cane. Completed standing ADL tasks with overall SBA. Needs Min A for UE dressing andoverall Mod A for LE dressing. Cues needed, as patient still has some mild L inattention. EAP SPECIALIST: Pt completed swallowing Tx this AM. Pt tolerated 1 cracker and 5 sips of water by cup. No overt s/sxof aspiration noted. Pt demonstrated increased oral transit time with cracker, demonstrating prolonged mastication. Pt required min cues to alternate solids/liquids during po intake. Pt completed x10 reps of x5 oropharyngeal strengthening exercises. Lingual and labial fatigue was observed as number ofrepetitions increased. Despite max cues, pt unable to sustain bite hold on tongue necessary to complete Chio exercise. Recommend continuation of Dysphagia Diet Level 3 with thin liquids. Recommend continuation of swallowing Tx to maximize swallow function and advance diet as indicated, as well as com pletion of cognitive-communication evaluation. Prior Functional Status: Independent with ambulation, mobility, all ADLs, and all IADLs including driving. PAST Medical History Reviewed and updated in [facility]. Past Medical History: Diagnosis Date ??? Diverticulitis ??? Hyperlipidemia ??? Hypertension ??? Sleep apnea Surgical History Reviewed and updated in [facility]. Past Surgical History: Procedure Laterality Date ??? COLECTOMY WITHOUT COLOSTOMY N/A 05/31/2016 Procedure: COLECTOMY WITHOUT COLOSTOMY; Surgeon: Vignesh Montez MD; Location: [facility] OR ??? GENITOURINARY SURGERY ??? ORTHOPEDIC SURGERY ??? [place] teeth extraction SOCIAL HISTORY Reviewed and updated in [facility]. Marital Status: Living situation: Lives in a split level home with 5 steps up or down. Main living area is on the upper level. 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 Marital status: [...] ??? Not on file Social History Narrative FAMILY HISTORY Reviewed and updated in [facility]. Family History Problem Relation Age of Onset ??? Abdominal Aortic Aneurysm Mother ??? Coronary Artery Disease Father ??? Other Cancer Father Medications Scheduled meds Prescriptions Prior to Admission Medication Sig Dispense Refill Last Dose ??? amLODIPine (NORVASC) 10 MG tablet Take 10 mg by mouth daily 03/02/2018 at am ??? aspirin 81 MG tablet Take 81 mg by mouth every evening 03/01/2018 at pm ??? atorvastatin (LIPITOR) 20 MG tablet Take 20 mg by mouth every evening 03/01/2018 at pm ??? hydrochlorothiazide (MICROZIDE) 12.5 MG capsule Take 1 capsule (12.5 mg) by mouth daily 30 capsule 0 ??? magnesium oxide (MAG-OX) 400 MG tablet Take 400 mg by mouth every evening 03/01/2018 at pm ??? multivitamin, therapeutic (THERA-VIT) TABS Take 1 tablet by mouth daily 03/01 or 03/02 ??? Probiotic Product (PROBIOTIC DAILY PO) Take 1 tablet by mouth every evening 03/01/2018 at pm ALLERGIES No Known Allergies Review of Systems A 10 point ROS was performed and negative unless otherwise noted in HPI. Constitutional: Negative for fevers, chills Eyes: +Right eye erythematous and pruritic Cardiovascular: Negative for chest pain Respiratory: Negative for shortness of breath Gastrointestinal: Negative for constipation or incontinence Genitourinary: Negative for incontinence Musculoskeletal: +L hemiparesis Neurologic: +L hemiparesis due to CVA Dermatologic: Negative for rash Physical Exam VITAL SIGNS: BP 150/75 (BP Location: Right arm) Pulse 66 Temp 97.5 ??F (36.4 ??C) (Oral) Resp 16 Ht 1.753 m (5' 9) Wt 111.2 kg (245 lb 3.2 oz) SpO2 94% BMI 36.21 kg/m2 BMI: Estimated body mass index is 36.62 kg/(m^2) as calculated from the following: Height as of 06/11/16: 1.753 m (5' 9). Weight as of 03/06/18: 112.5 kg (248 lb). General: NAD, pleasant and cooperative HEENT: R eye erythematous Pulmonary: Non-labored breathing, CTA b/l, no w/r/r Cardiovascular: RRR, S1+S2, no m/r/g Abdominal: Soft, NT/ND, BS+ Lower Extremities: No LE edema or calf tenderness b/l MSK/neuro: Mental Status: alert and oriented x3 Cranial Nerves: 1. 2nd CN: Pupils equal, round, reactive to light and accomodation. Possible left lower quadrantanopsia 2. 3rd,4th,6th CN: EOMI, appropriate pupillary responses 3. 5th CN: facial sensation intact 4. 7th CN: Mild L facial droop 5. 8th CN: functional hearing bilaterally 6. 9th, 10th CN: palate elevates symmetrically 7. 11th CN: sternocleidomastoids and trapezii strong 8. 12th CN: tongue midline and without fasciculations Sensory: Normal to light touch in bilateral upper and lower extremities Strength: Shoulder abd EF WE EE Cloth Sander Finger abd R 5 5 5 5 5 5 L 4 4 4 4 3 3 HF KE DF EHL PF R 5 5 5 5 5 L 5 5 5 5 5 Reflexes: Biceps BR Triceps Patella R 3+ 3+ 3+ NR L 2+ 2+ 2+ NR Velazquez's test: negative bilaterally Tone per modified Robin Scale: 0 Abnormal movements: None Coordination: Apraxic finger to nose testing on le Orientation: AAOx3 Memory: 2/3 without cues, 3/3 with cues Speech: Fluent Comprehension: Able to follow 3 step commands Repetition: In tact -->: No aphasia Labs Lab Results Component Value Date WBC 9.2 03/05/2018 Lab Results Component Value Date RBC 5.16 03/05/2018 Lab Results Component Value Date HGB 15.3 03/05/2018 Lab Results Component Value Date HCT 44.4 03/05/2018 Lab Results Component Value Date MCV 86 03/05/2018 Lab Results Component Value Date MCH 29.7 03/05/2018 Lab Results Component Value Date MCHC 34.5 03/05/2018 Lab Results Component Value Date RDW 13.6 03/05/2018 Lab Results Component Value Date PLT 210 03/05/2018 Last Comprehensive Metabolic Panel: Sodium Date Value Ref Range Status 03/05/2018 138 133 - 144 mmol/L Final Potassium Date Value Ref Range Status 03/05/2018 3.5 3.4 - 5.3 mmol/L Final Chloride Date Value Ref Range Status 03/05/2018 104 94 - 109 mmol/L Final Carbon Dioxide Date Value Ref Range Status 03/05/2018 26 20 - 32 mmol/L Final Anion Gap Date Value Ref Range Status 03/05/2018 8 3 - 14 mmol/L Final Glucose Date Value Ref Range Status 03/05/2018 125 (H) 70 - 99 mg/dL Final Urea Nitrogen Date Value Ref Range Status 03/05/2018 13 7 - 30 mg/dL Final Creatinine Date Value Ref Range Status 03/05/2018 0.83 0.66 - 1.25 mg/dL Final GFR Estimate Date Value Ref Range Status 03/05/2018 >90 >60 mL/min/1.7m2 Final Comment: Non GFR Calc Calcium Date Value Ref Range Status 03/05/2018 8.9 8.5 - 10.1 mg/dL Final Lab Results Component Value Date CHOL 137 03/03/2018 Lab Results Component Value Date HDL 58 03/03/2018 Lab Results Component Value Date LDL 59 03/03/2018 Lab Results Component Value Date TRIG 100 03/03/2018 No results found for: CHOLHDLRATIO HbA1c: 6.1 IMPRESSION Raul Dickson is a 67 year old male with a PMH including but not limited to CARLOS, HTN, HLD, and OA ofthe shoulder who presented to [facility] on 03/02/18 for acute onset of left arm weakness, slurred speech, and facial droop, s/p tPA. Found to have multiple infarcts in the R MCA territory including R posterior frontal lobe, right insula, right inferior frontal gyrus, and lateral aspect of the right parietal, temporal, and occipital lobes. Impairment group code: 01.1 Acute ischemic stroke, left body involvement PLAN 1)Rehabiliation -The patient has impairments in strength, coordination, balance, and endurance, which are leading toactivity limitations in ambulation, mobility, ADLs, and swallowing. He will be admitted into a comprehensive, interdisciplinary, inpatient rehabilitation program including PT, OT and EAP SPECIALIST for 60 minutesof each on a daily basis. The patient requires close supervision by a research & insights executive for management andmonitoring of active and chronic medical co-morbidities, and to ensure the patient's ability to fully participate and benefit from the rigorous program. Additionally, the patient requires specialized rehabilitation nursing for monitoring of vital signs, medication administration, patient and family tra ining and education, and monitoring of bowel and bladder. The assistance of the social work team is also needed to collaborate and achieve the identified discharge goals. A comprehensive individualizedCare Plan will be formulated by the attending Turbinated Bone Grinder after initial evaluations by each Rehabilitation economics faculty member at the initial team conference within four days of admission and updated/modified at subsequent team conferences. This level of care and multidisciplinary approach is medically necessary and only available at the inpatient rehabilitation facility level of care. The patient is willingto participate in 3 hours of therapy per day and has the potential for improvement. 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, s/p tPA -Continue ASA 325 mg daily, Atorvastatin 20 mg daily -Will need 30 day cardiac monitoring with [facility] after discharge -Follow up with neurology in 4 weeks after discharge -Will provide ongoing education regarding stroke risk factor reduction including control of BP, dietand lifestyle changes, medication and physician follow up compliance, abd compliance with CPAP for treatment of CARLOS 3)CVS -HTN: Continue PIGS FEET FINISHER Amlodipine 10 mg daily, hydrochlorothiazide 12.5 mg daily -Will titrate meds to gradually bring BP down to goal of <140/90 -Hydralazine PRN for SBP >180 mmHg -HLD: Continue Lipitor 20 mg every evening. Recent LDL was 59. -No atrial fibrillation seen on telemetry. After discharge will need 30 day school bus monitor. 4)Pulm -CARLOS: CPAP with home settings -Encourage IS 5)FENGI -NDD3 diet with thin liquids -PRN bowel meds: Colace, Senna, Dulcolax -MVT daily -On Mg supplementation. Check with next blood draw. -No electrolyte abnormalities seen on BMP from 03/05, but potassium was on the low end at 3.5. Will re-check in 2 days, especially given initiation of hydrochlorothiazide 6) -Check PVRs x3, IC if >250 ml -No evidence of kidney injury seen on BMP 7)DVT prophylaxis -Pt is ambulating adequate distances, will not start chemoprophylaxis -Will order mechanical prophylaxis 8)Pain -Chronic shoulder pain due to OA. Previously has had shoulder injections. Order Tylenol PRN. 9)Endo -Hb A1c 6.1, consistent with pre-diabetes -Glucose checks were well controlled, will not order fingersticks at this time -Encourage diet and lifestyle changes, follow up with PCP 10)Heme -No abnormalities on CBC from 03/05. Repeat if clinically indicated. 11)Psych -Monitor mood, consult health psych if needed 12)Social/Dispo -Anticipate discharge home -ELOS 7 days -Rehab prognosis: Good -Follow up on discharge: Neurology (4 weeks), cardiology (for 30 day monitor), PCP Code status: Full code (discussed with patient) Kirk Frye MD Department of Rehabilitation Medicine Pager: [phone] Time Spent on this Encounter I, Kirk Frye, spent a total of 70 minutes bedside and on the inpatient unit today managing the care of Raul Dickson. Over 50% of my time on the unit was spent counseling the patient and /or coordinating care. EM MILL STICKER documented in this encounter Miscellaneous Notes Plan of Care - Emir Duran RN - 03/12/2018 10:25 AM CST Problem: Goal/Outcome Goal: Goal Outcome Summary VSS, passed MAP, discharge instructions discussed with patient and daughter and they verbalize understanding. Denies pain or SOB. Patient transferred safely into the car for ride home. EM MILL STICKER Plan of Care - Aida Dang RN - 03/12/2018 5:53 AM CST Problem: Goal/Outcome Goal: Goal Outcome Summary Outcome: Improving Alert and oriented X 4. Able to make needs known. Call light in reach. Offers no C/O pain/discomfort. Up ad cinthia, independent in room. Continent of bowel and bladder. Using CPAP at night. Appears to be sleeping during rounds. Anticipate discharge today. EM MILL STICKER Plan of Care - Sandeep Kraus RN - 03/11/2018 10:35 PM CST Problem: Goal/Outcome Goal: Goal Outcome Summary FOCUS/GOAL Bowel management, Medication management and Discharge planning ASSESSMENT, INTERVENTIONS AND CONTINUING PLAN FOR GOAL: Pt is alert and oriented x4, no complaints of pain or SOB, vitals stable. Pt told nurse he had a BM this morning at approx 1100. Pt ambulating around room independently without device. Pt called appropriately for MAP program and was able to correctly pull out medication bottles from box and tell nursehow much he was to receive. Plan to discharge home tomorrow in the morning. EM MILL STICKER Plan of Care - Christina James - 03/11/2018 5:34 PM CST Problem: Patient Care Overview Goal: Plan of Care/Patient Progress Review Physical Therapy Discharge Summary Reason for therapy discharge: Discharged to home with outpatient therapy. Progress towards therapy goal(s). See goals on Care Plan in [facility] electronic health record for goal details. Goals met Therapy recommendation(s): Continued therapy is recommended. Rationale/Recommendations: Pt has decreased coordination with higher level dual task and deconditioned, will benefit from skilled therpist in outpatient setting.. EM MILL STICKER Associated attestation - Patsy Pike PT - 03/12/2018 8:59 AM TANDEM MILL STICKER agree Plan of Care - Emir Duran RN - 03/11/2018 3:52 PM CST Problem: Patient Care Overview Goal: Plan of Care/Patient Progress Review FOCUS/GOAL Bowel management, Bladder management and Medication management ASSESSMENT, INTERVENTIONS AND CONTINUING PLAN FOR GOAL: AOX4, uses call light and able to make needs known. Independent in room. Denies pain or SOB. More than reasonable time picking meds on MAP, has difficulty seeing objects to the left, having trouble reading word to the left of medication label on bottle. Patient educated to scan bottle to get a complete picture. Continue to monitor as per POC. EM MILL STICKER Plan of Care - Kaushalyundesiree Julieth - 03/11/2018 2:23 PM CST Problem: Patient Care Overview Goal: Plan of Care/Patient Progress Review Speech Language Therapy Discharge Summary Reason for therapy discharge: Discharged to home with outpatient therapy. Progress towards therapy goal(s). See goals on Care Plan in [facility] electronic health record for goal details. Goals partially met. Barriers to achieving goals: discharge from facility. Therapy recommendation(s): Continued therapy is recommended. Rationale/Recommendations: Continue with moderate to higher level cognitive tasks (memory, attention, problem solving, etc). Patient has poor to limited insight on cognitive deficits. . Patient is resistant to continuing speech therapy upon discharge due to limited awareness of deficits. All dysphagia related goals met prior to discharge. EM MILL STICKER Plan of Care - Cindy Orosco OT - 03/11/2018 8:10 AM CST Problem: Patient Care Overview Goal: Plan of Care/Patient Progress Review OT: I day completed. On track for discharge tomorrow with OP at [facility]. Occupational Therapy Discharge Summary Reason for therapy discharge: All goals and outcomes met, no further needs identified. Progress towards therapy goal(s). See goals on Care Plan in [facility] electronic health record for goal details. Goals met Therapy recommendation(s): Continued therapy is recommended. Rationale/Recommendations: Recommend OP OT to continue progressingIADL and to work on L side deficits. . EM MILL STICKER Plan of Care - Irene Shah RN - 03/11/2018 4:00 AM CST Problem: Goal/Outcome Goal: Goal Outcome Summary Outcome: Improving FOCUS/GOAL Medical management ASSESSMENT, INTERVENTIONS AND CONTINUING PLAN FOR GOAL: Patient slept well overnight. Alert and oriented X4. Denied any pain or SOB. He is independent in his room; does not use a walker or cane. MAP to start today. CPAP on. Call light within reach. EM MILL STICKER Plan of Care - Sandeep Kraus RN - 03/10/2018 10:46 PM CST Problem: Goal/Outcome Goal: Goal Outcome Summary FOCUS/GOAL Bladder management, Nutrition/Feeding/Swallowing precautions and Medication management ASSESSMENT, INTERVENTIONS AND CONTINUING PLAN FOR GOAL: Pt alert and oriented x4, VSS, no complaints of pain. Pt is ambulating independently in room. Tolerating regular diet eating 100% meals. Pt is supposed to start MAP program tomorrow. Order is placed and pt given medication schedule with instructions on how the program is to operate starting tomorrow. No other concerns at this time. EM MILL STICKER Plan of Care - Noelle Tee RN - 03/10/2018 4:33 PM CST 03/10/18 Stroke Education Note The following information has been reviewed with the patient, family 1. Warning signs of stroke 2. Calling 911 if having warning signs of stroke 3. All modifiable risk factors: Hypertension, CAD, atrial fib, diabetes, hypercholesterolemia, smoking, substance abuse, diet, physical inactivity, obesity, sleep apnea. 4. Patient's risk factors for stroke which include:HTN,Pre Diabetes,HDL,Diet/Physical Inactivity.Sleep Apnea 5. Follow-up plan for after discharge 6. Medications which include:Norvasc,ASA,HCTZ,Lipitor briefly covered per [facility] handout. In addition, the [facility] Stroke Class Handout and Understanding Stroke book have been given to the patient and family. Learner's response to risk factors / lifestyle modification education: Taking steps HTN:medications,diet,exercise,taking his own BP with a BP machine at home,recording the results,reporting too high or too low results. Pre diabetes:diet,exercise,and follow up per [facility] handout. HDL:continue with Lipitor,diet,exercise per [facility] handout. Diet/Physical activity per [facility] handout. Sleep Apnea: continue with CPAP. Cardiac monitoring and follow up as outpatient per instructions at discharge. Patient,,and two daughters very attentive,able to answer basic stroke teach back,and verbalized?? understanding of content presented. EM MILL STICKER Plan of Care - Mica Clarke RN - 03/10/2018 2:49 PM CST Problem: Goal/Outcome Goal: Goal Outcome Summary Outcome: Improving patient is A&O x 3, denies discomfort. Is inde in room. VS'S. patient is to start a Med program in am as suggested in rounds No more BG monitoring LBM 1125.Will continue to monitor. EM MILL STICKER Plan of Care - Shanel Tena, PT - 03/10/2018 12:27 PM CST Problem: Patient Care Overview Goal: Plan of Care/Patient Progress Review PT: pt progressing well with mobility, SBA-IND with higher level balance tasks, no loss of balance. Focus on bimanual coordination tasks with UEs with dynamic tasks, pt improving throughout session. Cognitive task for attention performed with some added challenge but does not affect safety with gait. EM MILL STICKER Plan of Care - Betito Beard, MAGALIS - 03/10/2018 12:20 PM CST Problem: Goal/Outcome Goal: Goal Outcome Summary Clinical Impressions: Normal swallow EAP SPECIALIST present for assessment of swallowing. Completed oral [facility] exam and pt demonstrates grossly normal oral mechanism. EAP SPECIALIST assessed oral trials of regular solids and thin liquids. Pt tended to take large bites while feeding. He demonstrated adequate oral prep phase, timely oral phase and intact pharyngeal and esophageal phases. Pt demonstrated no s/sx of aspiraiton during the evaluation. No significant oral residue. Denies globus sensation following swallows. Swallowing is normal, eval only and EAP SPECIALIST upgraded to regular solids and thin liquids. Straws OK. EM MILL STICKER Plan of Care - Cindy Orosco, OT - 03/10/2018 12:12 PM CST Problem: Patient Care Overview Goal: Plan of Care/Patient Progress Review OT: Advanced pt to I in the room. Pt doing very well, anticipate short stay. EM MILL STICKER Plan of Care - Cesia Carrasquillo RN - 03/10/2018 4:16 AM CST Problem: Goal/Outcome Goal: Goal Outcome Summary Outcome: No Change FOCUS/GOAL Bladder management, Mobility and Safety management ASSESSMENT, INTERVENTIONS AND CONTINUING PLAN FOR GOAL: Pt sleeping most of the night. Voiding using urinal AX1 with setup. Sleeping with CPAP on. Denies pain, SOB, or dizziness. Pt able to make needs known. Has PRN eyedrops available for eye redness. Call light in reach. Will continue to monitor. EM MILL STICKER Plan of Care - Fidel Hernandez RN - 03/09/2018 11:09 PM CST Problem: Goal/Outcome Goal: Goal Outcome Summary Outcome: No Change FOCUS/GOAL Bowel management, Medical management and Mobility ASSESSMENT, INTERVENTIONS AND CONTINUING PLAN FOR GOAL: Pt used call light appropriately and ambulated to the bathroom with SBA -CGA and gait belt. Bed/chair alarm on until cleared by team tomorrow. Alarm went off occasionally when staff delayed answering the call light, pt used toilet independently. Needing supervision only with toileting tasks and grooming. Continent of bm x1. No issue with voiding noted. Denies pain. BP monitored closely(see VS) and informed pt that goal is less than 140/90. EM MILL STICKER Plan of Care - Bebeto Brown OTR - 03/09/2018 4:10 PM CST Problem: Goal/Outcome Goal: Goal Outcome Summary Outcome: Therapy, progress toward functional goals as expected PM OT session for morning routine including shower. pt able to ambulate from patient room to shower room with CGA for steadying. Completes walk in shower transfer using grab bars and tub bench with CGAfor steadying. Completes bathing tasks from tub bench with Mod A for BLE and thoroughness. Will continue to assess for safety and independ with toilet tasks and toilet transfers in room. EM MILL STICKER Plan of Care - Rhona Pierce RN - 03/09/2018 1:17 PM CST Problem: Patient Care Overview Goal: Plan of Care/Patient Progress Review FOCUS/GOAL Mobility ASSESSMENT, INTERVENTIONS AND CONTINUING PLAN FOR GOAL: Pt denied pain during shift. Denied SOB, denied difficulty breathing. No neuro changes upon assessment. Slept well overnight. VSS. Check-ins provided. Call light within reach. Family at bedside. Continent. Continue with POC. Alarms on until cleared by therapy. EM MILL STICKER Pharmacy-Medication Regimen Review - Kym Michael [facility] - 03/09/2018 8:29 AM CST Pharmacy Medication Regimen Review Raul Dickson is a 67 year old male who is currently in the Acute Rehab Unit. Assessment: All medications have an appropriate indications, durations and no unnecessary use was found Plan: Continue medications as ordered. I asked for hold parameters for antihypertensives-though it is no wallace as his BP is running high. Attending provider will be sent this note for review. If there are any emergent issues noted above, pharmacist will contact provider directly by phone. Pharmacy will periodically review the resident's medication regimen for any PRN medications not administered in > 72 hours and discontinue them. The pharmacist will discuss gradual dose reductions of psychopharmacologic medications with interdisciplinary team on a regular basis. Please contact pharmacy if the above does not answer specific medication questions/concerns. Background: A pharmacist has reviewed all medications and pertinent medical history today. Medications were reviewed for appropriate use and any irregularities found are listed with recommendations. Current Facility-Administered Medications: ??? acetaminophen (TYLENOL) tablet 650 mg, 650 mg, Oral, Q4H PRN, Jacob Frye MD ??? amLODIPine (NORVASC) tablet 10 mg, 10 mg, Oral, Daily, Jacob Frye MD, 10 mg at 03/09/18757 ??? aspirin (ASA) EC tablet 325 mg, 325 mg, Oral, Daily, Jacob Frye MD, 325 mg at 03/09/18757 ??? atorvastatin (LIPITOR) tablet 20 mg, 20 mg, Oral, QPM, Jacob Frye MD, 20 mg at 03/08/182008 ??? bisacodyl (DULCOLAX) Suppository 10 mg, 10 mg, Rectal, Daily PRN, Jacob Frye MD ??? docusate sodium (COLACE) capsule 100 mg, 100 mg, Oral, BID PRN, Nasrin Frye MD ??? hydrALAZINE (APRESOLINE) tablet 10 mg, 10 mg, Oral, Q6H PRN, Jacob Frye MD ??? hydrochlorothiazide (MICROZIDE) capsule 12.5 mg, 12.5 mg, Oral, Daily, Jacob Frye MD,12.5 mg at 03/09/18757 ??? magnesium oxide (MAG-OX) tablet 400 mg, 400 mg, Oral, QPM, Jacob Frye MD, 400 mg at 03/08/182008 ??? multivitamin, therapeutic (THERA-VIT) tablet 1 tablet, 1 tablet, Oral, Daily, Jacob Frye MD, 1 tablet at 03/09/18757 ??? sennosides (SENOKOT) tablet 2 tablet, 2 tablet, Oral, Daily PRN, Nasrin Frye MD ??? tetrahydrozoline 0.05 % ophthalmic solution 1 drop, 1 drop, Right Eye, 4x Daily PRN, Jacob Frye MD No current outpatient prescriptions on file. PMH: s/p ischemic stroke, CARLOS, HTN, HLD. EM MILL STICKER Associated attestation - Jacob Frye MD - 03/09/2018 9:53 AM TANDEM MILL STICKER I have reviewed and agree with the recommendations and documentation in this note. Hold parameters placed. Plan of Care - Marysol Tena, RN - 03/09/2018 5:42 AM CST Problem: Goal/Outcome Goal: Goal Outcome Summary FOCUS/GOAL Bowel management, Bladder management and Mobility ASSESSMENT, INTERVENTIONS AND CONTINUING PLAN FOR GOAL: Patient is A&Ox4, continent of bowel/bladder. Patient voided without difficulty in the toilet 2x. No BM this shift. No c/o pain, SOB or n/v/d. Patient has LUE weakness but a strong beef grader. Patient slept most of the night and is able to use his call light appropriately to call for assistance. Transfers CGA with no assistive device. Alarms on for safety. PVRs: 0, 75, 0. PVRs complete. Continue POC. EM MILL STICKER Plan of Care - Fidel Hernandez RN - 03/08/2018 10:55 PM CST Problem: Goal/Outcome Goal: Goal Outcome Summary Outcome: No Change FOCUS/GOAL Bowel management, Bladder management, Medical management and Mobility ASSESSMENT, INTERVENTIONS AND CONTINUING PLAN FOR GOAL: Pt was admitted to ARU today with acute ischemic stroke and LUE weakness, s/p tPA. Pt is alert and oriented x4, used call light appropriately. Spouse and daughter were present on pm and very supportive. Denied pain, chest pain, SOB, numbness/tingling. Ambulated to bathroom with CGA and gait belt, denied dizziness during transfer. SBA for toileting tasks. Continent of urine. PVRs 0cc and 75cc. Urine was navneet, encouraged fluid intake. Ate 100% of DD3. LBM 03/06, denies any issue with bowel function. BP elevated upon admission but down to 137/69 at 8pm. Pt is motivated to participate in therapies. Ambulated in patel x2 with CGA/ gait belt. EM MILL STICKER documented in this encounter Plan of Treatment Scheduled Referrals Name Type Priority Associated Diagnoses Order S chedule Physical Therapy Referral Routine Cerebrovascular accident 1 Occurrences Referral (CVA) due to bilateral start ing 03/11/2018 embolism of carotid until arteries (H) Occupational Therapy Referral Routine Cerebrovascular acci dent 1 Occurrences Referral (CVA) due to bilateral start ing 03/11/2018 embolism of carotid until arteries (H) Speech Therapy Referral Routine Cerebrovascular accident 1 Occurrences Referral (CVA) due to bilateral start ing 03/11/2018 embolism of carotid until arteries (H) CARDIOLOGY EVAL ADULT Referral Routine LVH (left ventricul ar Ordered: 03/11/2018 REFERRAL hypertrophy) 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 (H) documented as of this encounter Procedures Procedure Name Priority Date/Time Associated Diagnosis Comme nts GLUCOSE BY METER Routine 03/10/2018 7:49 AM Resul ts for this TANDEM MILL STICKER procedure are i n the results section. MAGNESIUM Routine 03/10/2018 7:29 AM Results f or this TANDEM MILL STICKER procedure are i n the results section. BASIC METABOLIC Routine 03/10/2018 7:29 AM Result s for this PANEL TANDEM MILL STICKER procedure are i n the results section. documented in this encounter Results (ABNORMAL) Glucose by meter (03/10/2018 7:49 AM TANDEM MILL STICKER) P athologist Signature Glucose 143 (H) 70 - 99 03/10/2018 POINT OF CARE mg/dL 8:10 AM TANDEM MILL STICKER TEST, GLUCOSE Specimen Anatomical Collection Method Collection Time Receive d Time (Source) Location / / Volume Laterality 03/10/2018 7:49 AM 8 8:09 TANDEM MILL STICKER AM TANDEM MILL STICKER Jacob BROWN - [facility] POCT Performing Organization Address City/State/ZIP Code Phon e Number [facility] POINT OF CARE TEST, GLUCOSE POINT OF CARE TEST, GLUCOSE Magnesium (03/10/2018 7:29 AM TANDEM MILL STICKER) P athologist Signature Magnesium 2.3 1.6 - 2.3 03/10/2018 [facility] mg/dL 8:03 AM [facility] Specimen Anatomical Collection Method Collection Time Receive d Time (Source) Location / / Volume Laterality Blood specimen 03/10/2018 7:29 AM 018 7:34 (specimen) TANDEM MILL STICKER AM TANDEM MILL STICKER Jacob Frye MD LAB - BLOOD ORDERABLES Performing Organization Address City/State/ZIP Code Phon e Number [facility] [id number] [place] [address] [facility] (ABNORMAL) Basic metabolic panel (03/10/2018 7:29 AM [facility]) P athologist Signature Sodium 141 133 - 144 03/10/2018 [facility] mmol/L 8:03 AM [facility] Potassium 3.6 3.4 - 5.3 03/10/2018 [facility] mmol/L 8:03 AM [facility] Comment: Specimen slightly hemolyzed, po tassium may be falsely elevated Chloride 103 94 - 109 mmol/L 03/10/2018 8:03 AM [facility] Carbon Dioxide 30 20 - 32 mmol/L 03/10/2018 8:03 AM [facility] Anion Gap 8 3 - 14 mmol/L 03/10/2018 8:03 AM [facility] Glucose 132 (H) 70 - 99 mg/dL 03/10/2018 8:03 AM [facility] Urea Nitrogen 12 7 - 30 mg/dL 03/10/2018 8:03 AM [facility] Creatinine 0.81 0.66 - 1.25 mg/dL 03/10/2018 8:03 AM [facility] GFR Estimate >90 >60 mL/min/1.7m2 03/10/2018 8:03 AM U [facility] Comment: Non GFR Calc GFR Estimate If >90 >60 mL/min/1.7m2 03/10/2018 8:03 A M [facility] Black [facility] Comment: GFR Calc Calcium 9.2 8.5 - 10.1 mg/dL 03/10/2018 8:03 AM [facility] Specimen Anatomical Collection Method Collection Time Receive d Time (Source) Location / / Volume Laterality Blood specimen 03/10/2018 7:29 AM 018 7:34 (specimen) TANDEM MILL STICKER AM TANDEM MILL STICKER Jacob Frye MD LAB - BLOOD ORDERABLES Performing Organization Address City/State/ZIP Code Phon e Number [facility] [address] [address] [facility] documented in this encounter Visit Diagnoses Diagnosis Cerebrovascular accident (CVA) due to bi lateral embolism of carotid arteries (H) - Primary LVH (left ventricular hypertrophy) Cardiomegaly Benign essential hypertension Essential hypertension, benign Stroke due to embolism (H) documented in this encounter Administered Medications Inactive Administered Medications - up to 3 most recent administrations Medication Order MAR Action Action Date Dose Rate Site - Medication Assessment Program - Rehab Services SEE ADMIN INSTRUCTIONS, Starting on Sat03/10/18 at 17 57, Until Sat03/12/18 at 1225, Patient is on the Rehab Services Medication Asse ssment Program - See policy/procedure for details. amLODIPine (NORVASC) tablet 10 mg Given 03/12/2018 8:31 AM [facility] 10 mg 10 mg, Oral, DAILY, First dose on 03/09/18 at 0800, Hold for SBP <100 mmHg Given 03/11/2018 9:00 AM [facility] 10 mg Given 03/10/2018 8:01 AM [facility] 10 mg aspirin (ASA) EC tablet 325 mg Given 03/12/2018 8:31 AM [facility] 325 mg 325 mg, Oral, DAILY, First dose on 03/09/18 at 0800, DO NOT CRUSH. Given 03/11/2018 9:01 AM [facility] 325 mg Given 03/10/2018 8:01 AM [facility] 325 mg atorvastatin (LIPITOR) tablet 20 mg Given 03/11/2018 8:20 PM [facility] 20 mg 20 mg, Oral, EVERY EVENING, First dose on 03/08/18 at 2100 Given 03/10/2018 8:57 PM [facility] 20 mg Given 03/09/2018 9:14 PM [facility] 20 mg hydrochlorothiazide (MICROZIDE) capsule 12.5 Given 8:30 AM [facility] 12.5 mg mg 12.5 mg, Oral, DAILY, First dose on 03/09/18 at 0800, Hold for SBP <100 mmHg Given 03/11/2018 9:01 AM [facility] 12.5 mg Given 03/10/2018 8:01 AM [facility] 12.5 mg magnesium oxide (MAG-OX) tablet 400 mg Given 03/11/2018 8:19 PM [facility] 400 mg 400 mg, Oral, EVERY EVENING, First dose on 03/08/18 at 2100 Given 03/10/2018 8:57 PM [facility] 400 mg Given 03/09/2018 9:12 PM [facility] 400 mg multivitamin, therapeutic (THERA-VIT) Given 03/12/2018 8:[address] 1 tablet tablet 1 tablet 1 tablet, Oral, DAILY, First dose on 03/09/18 at 0800 Given 03/11/2018 9:01 AM [facility] 1 tablet Given 03/10/2018 8:01 AM [facility] 1 tablet tetrahydrozoline 0.05 % ophthalmic solut ion 1 drop 1 drop, Right Eye, 4 TIMES DAILY PRN, Ir ritated eyes, Starting on 03/08/18 at 1627 documented in this encounter Active and Recently Administered Medications Times are shown in [facility]. Scheduled Medication Order 03/10/2018 03/11/2018 03/12/2018 - Medication Assessment Program - Rehab Services SEE ADMIN INSTRUCTIONS, Starting on Sat03/10/18 at 1757, Until Sat03/12/18 at 1225, Patient is on the Rehab Services Medication Assessment Program - See policy/procedure for details. amLODIPine (NORVASC) tablet 10 mg 0801 (Given - Provider: Janine Clarke RN) 0900 (Given - Provider: Emir Duran RN) 0831 (Given - Provider: Hanh Reich) 10 mg, Oral, DAILY, First dose on 03/09/18 at 0800, Hold for SBP <100 mmHg aspirin (ASA) EC tablet 325 mg 0801 (Given - Provider: Mcia Clarke RN) 09 (Given - Provider: Emir Duran RN) 0831 (Given - Provider: Hanh Reich) 325 mg, Oral, DAILY, First dose on 03/09/18 at 0800, DO NOT CRUSH. atorvastatin (LIPITOR) tablet 20 mg 2056 (Given - Provider: Sandeep Kraus, REJI) 2019 (Given - Provider: Sandeep Kraus RN) 20 mg, Oral, EVERY EVENING, First dose on 03/08/18 at 2100 hydrochlorothiazide (MICROZIDE) capsule 12.5 mg 08 ( Given - Provider: Mica Clarke, RN) 900 (Given - Provider: Emir Duran, RN) 08 (Given - Provider: Emir Duran, REJI) 12.5 mg, Oral, DAILY, First dose on 03/09/18 at 0800, Hold for SBP <100 mmHg magnesium oxide (MAG-OX) tablet 400 mg 2056 (Given - P rovider: Sandeep Kraus, RN) 2018 (Given - Provider: Sandeep Kraus RN) 400 mg, Oral, EVERY EVENING, First dose on 03/08/18 at 2100 multivitamin, therapeutic (THERA-VIT) tablet 1 tablet 800 (Given - Provider: Mica Clarke RN) 900 (Given - Provider: Emir Duran RN) 829 (Given - Provider: Emir Duran RN) 1 tablet, Oral, DAILY, First dose on 03/09/18 at 0800 PRN Medication Order 03/10/2018 03/11/2018 03/12/2018 acetaminophen (TYLENOL) tablet 650 mg 650 mg, Oral, EVERY 4 HOURS PRN, mild pa in, fever, Starting 03/08/18 at 1536, Maximum acetaminophen dose from all sources = 75 mg/kg/day not to exceed 4 grams/day. bisacodyl (DULCOLAX) Suppository 10 mg 10 mg, Rectal, DAILY PRN, constipation, Starting 03/08/18 at 1536 docusate sodium (COLACE) capsule 100 mg 100 mg, Oral, 2 TIMES DAILY PRN, constipation, Starting Sat 02/14 07/31 at 1536 hydrALAZINE (APRESOLINE) tablet 10 mg 10 mg, Oral, EVERY 6 HOURS PRN, For SBP >180 mmHg, Starting 03/08/18 at 1536 sennosides (SENOKOT) tablet 2 tablet 2 tablet, Oral, DAILY PRN, constipation, Starting 03/08/18 a t 1536 tetrahydrozoline 0.05 % ophthalmic solution 1 drop 1 drop, Right Eye, 4 TIMES DAILY PRN, Ir ritated eyes, Starting on 03/08/18 at 1627 documented in this encounter 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
--- OUTSIDE RECORDS SUMMARY | 2022-01-20 08:12 | XMS_ITS | Encounter Summary ---
:1950 Author Organization [facility] [facility] Address [address] [address] Care Team Providers Name Role Phone Po Coats MD Primary Care Provider Reason for Visit Reason Comments DL Encounter Details Date Type Department Care Team Description 12/01/2021 [facility] Tone Draper [address] [facility], [address] [place] [address] Social History Tobacco Use Types Packs/Day Years Used Date Smoking Tobacco: Never Smokeless Tobacco: Never Alcohol Use Standard Drinks/Week Comments Yes 0 (1 standard drink = 0.6 oz pure alcoho l) rare Alcohol Habits Answer Date Recorded How often do you have a drink containing alcohol? Not asked How many drinks containing alcohol do you have on a typical Not asked day when you are drinking? How often do you have six or more drinks on one occasion? No t asked Comment: rare 12/04/2015 Sex Assigned at Date Recorded Not on file documented as of this encounter Progress Notes Tone Draper - 12/01/2021 12:00 PM CDT Patient is here for DL for PA so he can get supplies. Clinician did DL and Patient has 100% compliance. Billing was notified to obtain PA. All questions and concerns addressed.Tone Draper 12/01/2021, 12:32 PM documented in this encounter Plan of Treatment Not on filedocumented as of this encounter Visit Diagnoses Not on filedocumented in this encounter Care Teams Tower Technician Relationship Specialty Start Date End Date Po Coats MD PCP - General 08/07/12 [address] [place] [address] documented as of this encounter
--- OUTSIDE RECORDS SUMMARY | 2022-01-20 08:12 | XMS_ITS | Encounter Summary ---
:1950 Author Organization [facility] Address [address] [place] [address] Care Team Providers Name Role Phone Po Coats MD Primary Care Provider Reason for Visit Reason Comments Prior Authorization For Imaging Encounter Details Date Type Department Care Team Description 11/07/2021 Telephone [facility] Po Irvin, Prior Authorization For Orthopedic Urgent MD Imaging Care [address] [facility] [address] [place] [id number] [phone] Social History Tobacco Use Types Packs/Day Years [...] on file documented as of this encounter Nursing Katelin Zamora E - 11/09/2021 12:43 PM CDT MRI/CT APPROVAL Procedure: MR SHOULDER LT WO CPT: 47879 Insurance: [facility] ADV APPROVED by CARLOS Valid Location: [facility] Valid Dates: 11/08/2021 - 05/08/2022 Auth #: [id number] Katelin Downing - 11/08/2021 10:10 AM CDT PRIOR AUTHORIZATION PENDING Auth request initiated. Office notes submitted to [facility] for review Pending Case #: [id number] Will update once we receive a response back from insurance. Katelin Downing - 11/07/2021 1:52 PM CDT This procedure is requiring medical review, we will process it once the note is available in Epic. Chan Adrian ATC - 11/07/2021 9:37 AM CDT To Whom it May Concern: We are requesting Prior Authorization for this patient's next plan of care. Once approval has been granted we will assist in contacting the patient or scheduling the patient for their appropriate services. 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
--- OUTSIDE RECORDS SUMMARY | 2022-01-20 08:12 | XMS_ITS | Encounter Summary ---
:1950 Author [facility] Address [address] [place] [address] Care Team Providers Name Role Phone Po Coats MD Primary Care Provider Reason for Visit Procedure/Equipment (Routine) - Incomplete Specialty Diagnoses / Procedures Referred By Contact Refer red To Contact Diagnoses Hip pain Osteoarthritis of left hip, unspecified osteoarthritis type Left hip impingement syndrome Pierre Robles MD Procedures [place] Injection Hip Lt [address] [facility] [place] [address] 1 Referral ID Status Reason Start Date Expiration Date Visits V isits Requested Authorized [id number] Incomplete 08/30/2020 11/29/2021 1 1 Encounter Details Date Type Department Care Team Description 09/01/2020 Ancillary Procedure [facility] Pierre Robles MD Hip pain [address] [facility] [address] [facility] [place] [address] [place] [phone] (Wo rk) Social History Tobacco Use Types [...] Name Priority Date/Time Associated Diagnosis Comme nts FL INJECTION HIP LT STAT 09/01/2020 8:57 AM Hip pain Re sults for this CDT procedure are i n the results section. documented in this encounter Results FL Injection Hip Lt (09/01/2020 8:57 AM CDT) Anatomical Region Laterality Modality Lower Extremity, Hip Radiographic Imagin g Specimen (Source) Anatomical Collection Method Collection Time Re ceived Time Location / / Volume Laterality 09/01/2020 8:38 AM CDT Impressions 09/01/2020 9:02 AM CDT FINDINGS: The procedure, goals, risks and benefits of the procedure were discussed with the patient, who gave full written and verbal consent to proceed. The location of the procedure was confirmed, the skin initialed, and pause for cause per formed. Using sterile technique, local anesthesia and fluoroscopic guidance a 22 gauge needle was advanced into the left hip joint. Intraarticular location of the needle tip was confirmed with the injec tion of 1 mL of Isovue. Subsequently, 40 mg of triamcinolone (40 mg/mL), and 5 mL ropivacaine 0.5% was administered without complication. The patient rated their pain as a 4/10 p rior to the injection, and 0/10 immediately following the injection. Procedure Note Blanca Case PA-C - 09/01/2020Formatt ing of this note might be different from the original. IMPRESSION FINDINGS: The procedure, goals, risks an d benefits of the procedure were discussed with the patient, who gave full written and verbal consent to proceed. The location of the procedure was confirmed, the skin initialed, and pause for cause performed. Using kenneth rile technique, local anesthesia and fluoroscopic guidance a 22 gauge needle was advanced into the left hip joint. Intraarticular location of the needle tip was confirmed with the injection of 1 mL of Isovue. Subsequentl y, 40 mg of triamcinolone (40 mg/mL), and 5 mL ropivacaine 0.5% was administered without complication. The patient rated their pain as a 4/10 p rior to the injection, and 0/10 immediately following the injection. Pierre Robles MD [facility] documented in this encounter Visit Diagnoses Diagnosis Hip pain Pain in joint, pelvic region and thigh documented in this encounter Administered Medications Inactive Administered Medications - up to 3 most recent administrations Medication Order MAR Action Action Date Dose Rate Site iopamidol (ISOVUE-M 200) 41 % Given 09/01/2020 8:38 AM CDT 2 mL intrathecal injection 2 mL 2 mL, Intra-articular, ONCE, On Ly 09/01/20 at 0900, For 1 dose triamcinolone acetonide (KENALOG-40) 40 MG/ML Given 8:39 AM CDT 40 mg injection 40 mg 40 mg, Intra-articular, ONCE, On Ly 09/01/20 at 0900, For 1 dose documented in this encounter Care Teams Tank Worker Relationship Specialty Start Date End Date Po Coats MD PCP - General 08/07/12 [address] [address] [place] [address] documented as of this encounter
--- OUTSIDE RECORDS SUMMARY | 2022-01-20 08:12 | XMS_ITS | Encounter Summary ---
:1950 Author Organization [facility] Address [address] [place] [id number] Care Team Providers Name Role Phone Sumanth Bearden Primary Care Provider [phone] Reason for Visit Reason Comments Abdominal Pain Encounter Details Date Type Department Care Team Description 01/02/2016 Emergency [facility] Jyoti Oliveira erticulitis of [facility] Emergency MD [facility] [address] [place], [place] [address] [facility] [id number] [facility] [phone] [place], [place] [id number] (Wo rk) Social History Tobacco Use Types Packs/Day Years Used Date Never Smoker Alcohol Use Standard Drinks/Week Comments No 0 (1 standard drink = 0.6 oz pure alcoho l) Sex Assigned at Date Recorded Not on file documented as of this encounter Last Filed Vital Signs Vital Sign Reading Time Taken Comments Blood Pressure 160/87 01/02/2016 2:45 AM CDT Pulse 63 01/02/2016 1:52 AM CDT Temperature 36.4 ??C (97.6 ??F) 01/02/2016 1:52 AM CDT Respiratory Rate 16 01/02/2016 1:52 AM CDT Oxygen Saturation 96% 01/02/2016 2:45 AM CDT Inhaled Oxygen Concentration - - Weight 112 kg (247 lb) 01/02/2016 1:52 AM CDT Height - - Body Mass Index 36.48 01/09/2014 4:24 AM CDT documented in this encounter Discharge Instructions Discharge InstructionsJyoti Oliveira MD - 01/02/2016 3:14 AM CDT For your infection,an antibiotic from the fluoroquinolone family was prescribed. All medications cancause side effects or adverse reactions. It is thought that there is a small chance that this medication can affect your nerves. If you experience numbness, tingling or weakness, stop taking this medication and call your doctor. It is thought that there is a small chance of tendon injuries/inflammation/rupture associated with this particular family of medications. It is concerning enough that the FDAhas a specific warning about it. In choosing this medication, I???ve considered alternatives but, given your infection, past history, allergies, and other factors, I think this is the best possible choice and that the risk to you is small. If you were to develop pain around your tendons/joints, stop taking the medication and contact a doctor. If you develop joint or extremity pain, avoid doing heavy lifting or strenuous activities with the affected area. Secondly, all antibiotics increase your risk of diarrhea by changing that bacteria in the intestines. This family of medications also increases your risk of specific bacteral diarrheal infections such as C. dificile. If you develop diarrhea or bloody stools, contact your doctor as you may need stool testing. Discharge Instructions Diverticulitis Your doctor has diagnosed you with diverticulitis. Diverticulitis is an infection of a diverticulum,which is a tiny sack-like structure that protrudes off the wall of the colon. These sacks are created over years of increased pressure in the colon - usually as a result of a diet without enough fruits, vegetables and whole grains. Because these sacks are small, bacteria can get trapped inside them and cause an infection. This infection often causes abdominal pain, fever, nausea and vomiting. Diverticulitis is usually treated at home. However, sometimes diverticulitis needs treatment in the hospitaland may even need surgery. Return to the Emergency Department if: ??? You get an oral temperature above 102oF or as directed by your doctor. ??? You have blood in your stools (bright red or black, tarry stools), or have blood in your vomit. ??? You keep throwing up or can???t drink liquids or can???t keep your medicine down. ??? You can???t have a bowel movement or you can???t pass gas. ??? Your stomach gets bloated or bigger. ??? You faint or become very weak. ??? Your pain is too bad to tolerate. ??? You have new symptoms or anything that worries you. What can I do to help myself? Fill any antibiotic prescriptions the doctor gave you and take them right away. Be sure to finish the whole antibiotic prescription. ??? For the first day or two at home drink only clear liquids. This lets your intestines rest. ??? If your pain has improved after one or two days, you may start eating mild foods. Soda crackers,toast, plain noodles, gelatin, applesauce and bananas are good first choices. Avoid foods that have acid, are spicy, fatty or fibrous (such as meats, coarse grains, vegetables). You may start eating these foods again in about 3-4 days when you are better. ??? Once you are back to normal, eat a high fiber diet of fruits, vegetables and whole grains. Some people think you should avoid eating nuts, seeds, and corn, but there is no definite proof this makesany difference in whether you will get diverticulitis again. ??? Pain and fever can be treated with Tylenol?? (acetaminophen) or with the prescription pain medication given to you by your doctor. If the prescription pain medication has acetaminophen in it, don???t use acetaminophen with it. If you have been given a narcotic pain medication, you should not drivefor 4 hours after taking it. Probiotics: If you have been given an antibiotic, you may want to also take a probiotic pill or eat yogurt with live cultures. Probiotics have good bacteria to help your intestines stay healthy. Studies have shown that probiotics help prevent diarrhea and other intestine problems (including C. diff infection) when you take antibiotics. You can buy these without a prescription in the pharmacy section of the store. FOLLOW UP WITH YOUR REGULAR DOCTOR IN 2 - 3 DAYS. This is important as further testing may be neededto determine how to treat your diverticulitis in the future. If you were given a prescription for medicine here today, be sure to read all of the information (including the package insert) that comes with your prescription. This will include important information about the medicine, its side effects, and any warnings that you need to know about. The pharmacist who fills the prescription can provide more information and answer questions you may have about the medicine. If you have questions or concerns that the pharmacist cannot address, please call or return to the Emergency Department. Opioid Medication Information Pain medications are among the most commonly prescribed medicines, so we are including this information for all our patients. If you did not receive pain medication or get a prescription for pain medicine, you can ignore it. You may have been given a prescription for an opioid (narcotic) pain medicine and/or have received apain medicine while here in the Emergency Department. These medicines can make you drowsy or impaired. You must not drive, operate dangerous equipment, or engage in any other dangerous activities whiletaking these medications. If you drive while taking these medications, you could be arrested for DUI, or driving under the influence. Do not drink any alcohol while you are taking these medications. Opioid pain medications can cause addiction. If you have a history of chemical dependency of any type, you are at a higher risk of becoming addicted to pain medications. Only take these prescribed medications to treat your pain when all other options have been tried. Take it for as short a time and asfew doses as possible. Store your pain pills in a secure place, as they are frequently stolen and provide a dangerous opportunity for children or visitors in your house to start abusing these powerful medications. We will not replace any lost or stolen medicine. As soon as your pain is better, you should flush all your remaining medication. Many prescription pain medications contain Tylenol?? (acetaminophen), including Vicodin??, Tylenol #3??, [place]??, Lortab??, and Percocet??. You should not take any extra pills of Tylenol?? if you are using these prescription medications or you can get very sick. Do not ever take more than 3000 mg of acetaminophen in any 24 hour period. All opioids tend to cause constipation. Drink plenty of water and eat foods that have a lot of fiber, such as fruits, vegetables, prune juice, apple juice and high fiber cereal. Take a laxative if you don???t move your bowels at least every other day. Miralax??, Milk of Magnesia, Colace??, or Senna?? can be used to keep you regular. Remember that you can always come back to the Emergency Department if you are not able to see your regular doctor in the amount of time listed above, if you get any new symptoms, or if there is anything that worries you. documented in this encounter Medications at Time of Discharge Medication Sig Dispensed Refills Start Date End Date Probiotic Product Take 1 tablet by 0 (PROBIOTIC DAILY PO) mouth every evening multivitamin, therapeutic Take 1 tablet by 0 (THERA-VIT) TABS mouth daily ciprofloxacin (CIPRO) 500 Take 1 tablet (500 13 tablet 0 01/09/2016 MG tablet mg) by mouth 2 times daily for 13 doses metroNIDAZOLE (FLAGYL) 500 Take 1 tablet (500 29 tablet 0 0 01/02/2016 01/12/2016 MG tablet mg) by mouth 3 times daily for 29 doses ondansetron (ZOFRAN ODT) 4 Take 1 tablet (4 10 tablet 0 01/05/2016 MG disintegrating tablet mg) by mouth every 8 hours as needed for nausea ASPIRIN PO Take 81 mg by mouth 0 03/02 every evening HYDROcodone-acetaminophen Take 1-2 tablets by 15 tablet 0 0 01/02/2016 05/31/2016 (NORCO) 5-325 MG per mouth every 4 hours tablet as needed for moderate to severe pain Atorvastatin Calcium Take 20 mg by mouth 0 03/02/2018 (LIPITOR PO) every evening documented as of this encounter ED Notes Jyoti Oliveira MD - 01/02/2016 2:43 AM CDT History Chief Complaint: Abdominal Pain HPI Raul Dickson is a 65 year old male with a history of diverticulitis in 2013 who presents with one day of LLQ abdominal pain. The patient states that he developed left lower quadrant abdominal pain at 0030. He states that his pain is constant and worse when laying down. Pain is throbbing. No radiationto the back or chest. The patient denies any fevers, back pain, urinary symptoms, nausea, vomiting, chest pain, shortness of breath, or bloody stools. He states that his diverticulitis in 2013 was treated with oral antibiotics. Allergies: No known drug allergies. Medications: Aspirin Probiotic Lipitor Thera-Vit Past Medical History: Hypertension Diverticulitis Past Surgical History: Orthopedic surgery Genitourinary surgery Family History: History reviewed. No pertinent family history. Social History: Marital Status: Presents to the ED with Tobacco Use: Never Used Alcohol Use: No PCP: Sumanth Barros Review of Systems Constitutional: Negative for fever. Respiratory: Negative for shortness of breath. Cardiovascular: Negative for chest pain. Gastrointestinal: Positive for abdominal pain. Negative for nausea, vomiting and blood in stool. Genitourinary: Negative for dysuria and hematuria. Musculoskeletal: Negative for back pain. All other systems reviewed and are negative. Physical Exam First Vitals: BP: (!) 159/102 mmHg Pulse: 63 Temp: 97.6 ??F (36.4 ??C) Resp: 16 Weight: 112.038 kg (247 lb) SpO2: 96 % Physical Exam Gen: alert HEENT: PERRL, oropharynx clear Neck: normal ROM CV: RRR, no murmurs Pulm: breath sounds equal, lungs clear Abd: Soft, left lower quadrant tenderness, no other abdominal tenderness, bowel sounds normal Back: no evidence of injury, no cva tenderness MSK: no deformity, moves all extremities Skin: no rash Neuro: alert, appropriate conversation and interaction Emergency Department Course Laboratory: UA: Slightly cloudy light yellow urine, Leukocyte esterase small, WBC 9 (H), Mucous present, otherwise WNL CBC: WBC 13.3 (H), HGB 14.2, PLT 221 BMP: Glucose 130 (H), Calcium 8.4 (L), otherwise WNL (Creatinine 0.94) Interventions: Dilaudid, 0.5 mg, IV injection (0314) Cipro, 500 mg, PO (0313) Flagyl, 500 mg, PO Emergency Department Course: Nursing notes and vitals reviewed. I performed an exam of the patient as documented above. Blood was drawn from the patient. This was sent for laboratory testing, findings above. Urine sample was obtained and sent for laboratory analysis, findings above. Findings and plan explained to the patient. Patient discharged home with instructions regarding supportive care, medications, and reasons to return. The importance of close follow-up was reviewed. The patient was prescribed Cipro, Flagyl, [place], and Zofran I personally reviewed the laboratory results with the patient and answered all related questions prior to discharge. Impression & Plan Medical Decision Making: Raul Dickson is a 65 year old male who presents for evaluation of LLQ abdominal pain. A broad differential diagnosis was considered including urinary obstruction, colitis, appendicitis, intestinal cramping, aortic pathologies, pyelonephritis, ureterolithiasis, UTI, constipation, diverticulitis, obstru ction, ileus, volvulus, etc as possibilities. Given history of diverticulitis, the fact that currentsymptoms are similar to this,tenderness in LLQ and this appears to be the likely site of pain and the short time course I would not CT and would empirically treat for diverticulitis. I discussed with the patient this clinical diagnosis and treatment rationale including avoiding excessive ionizing radiation and they are in agreement. We further discussed that there is a low possibility this is not diverticulitis and without CT we cannot confirm therefore reassessment by primary or in ED is paramount.There are no signs of sepsis, shock or bacteremia. The natural history of diverticulitis was discusse d, and I educated the patient regarding the symptoms and signs that should prompt return to the Emergency Department. This would include worsening fevers, chills, vomiting, and more intense pain. The patient is to take antibiotics and medications as directed. Follow-up with primary care physician is indicated in 1-2 days Diagnosis: ICD-10-CM 1. Diverticulitis of colon K57.32 Disposition: Discharge to home. Discharge Medications: New Prescriptions CIPROFLOXACIN (CIPRO) 500 MG TABLET Take 1 tablet (500 mg) by mouth 2 times daily for 13 doses HYDROCODONE-ACETAMINOPHEN (NORCO) 5-325 MG PER TABLET Take 1-2 tablets by mouth every 4 hours as needed for moderate to severe pain METRONIDAZOLE (FLAGYL) 500 MG TABLET Take 1 tablet (500 mg) by mouth 3 times daily for 29 doses ONDANSETRON (ZOFRAN ODT) 4 MG DISINTEGRATING TABLET Take 1 tablet (4 mg) by mouth every 8 hours as needed for nausea Rhona Monroe, am serving as a scribe on 01/02/2016 at 2:43 AM to personally document services performed by Dr. Oliveira based on my observations and the provider's statements to me. 01/02/2016 [facility] EMERGENCY DEPARTMENT Jyoti Oliveira MD 01/02/16 0853 Judy Bolton RN - 01/02/2016 1:55 AM CDT Pt complains of LLQ abd pain. Went to bed feeling fine; awoke with this pain. Denies nausea. Last BMtonight before the pain started and it was normal. Pain feels similar to previous episodes of diverticulitis. Airway, breathing and circulation intact without need for intervention. Alert and interacting appropriately for age and situation. HOME MEDICATIONS: List in [facility] is correct. documented in this encounter Plan of Treatment Not on filedocumented as of this encounter Procedures Procedure Name Priority Date/Time Associated Comments Diagnosis URINE MACROSCOPIC STAT 01/02/2016 2:57 AM Resu lts for this WITH REFLEX TO MICRO CDT procedu re are in the results section. CBC WITH PLATELETS & STAT 01/02/2016 2:04 AM R esults for this DIFFERENTIAL CDT procedure are i n the results section. BASIC METABOLIC PANEL STAT 01/02/2016 2:04 AM Results for this CDT procedure are i n the results section. documented in this encounter Results (ABNORMAL) UA reflex to Microscopic (01/02/2016 2:57 AM CDT) [facility] Method Time Signature Color Urine Light Yellow [facility] Appearance Urine Slightly [place] Cloudy [facility] Glucose Urine Negative NEG mg/dL [facility] Bilirubin Urine Negative NEG [facility] Ketones Urine Negative NEG mg/dL [facility] Specific [place] 1.014 1.003 - [place] Urine 1.035 [facility] Blood Urine Negative NEG [facility] pH Urine 6.0 5.0 - 7.0 [place] pH [facility] Protein Albumin Negative NEG mg/dL [facility] Urobilinogen Normal 0.0 - 2.0 [place] mg/dL mg/dL [facility] Nitrite Urine Negative NEG [facility] Leukocyte Small (A) NEG [place] Esterase Urine [facility] Source Midstream [place] Urine [facility] RBC Urine 2 0 - 2 [facility] WBC Urine 9 (H) 0 - 2 [facility] Squamous 1 0 - 1 [place] Epithelial [facility] Mucous Urine Present (A) NEG /LPF [facility] Specimen Anatomical Collection Method Collection Time Receive d Time (Source) Location / / Volume Laterality Urine specimen URINE SPECIMEN 01/02/2016 2:57 AM 01/01 3:02 (specimen) OBTAINED BY CLEAN CDT AM CDT CATCH PROCEDURE / Unknown Jyoti Oliveira MD LAB - URINE ORDERABLES Performing Organization Address City/State/ZIP Code Phon e Number M [place] [address] [place] [address] [facility] [address] [phone] (ABNORMAL) Basic metabolic panel (BMP) (01/02/2016 2:04 AM CDT) athologist Signature Sodium 139 133 - 144 [place] mmol/L [facility] Potassium 3.8 3.4 - 5.3 [place] mmol/L [facility] Chloride 105 94 - 109 [place] mmol/L [facility] Carbon Dioxide 26 20 - 32 [place] mmol/L [facility] Anion Gap 8 3 - 14 [place] mmol/L [facility] Glucose 130 (H) 70 - 99 [place] mg/dL [facility] Urea Nitrogen 15 7 - 30 [place] mg/dL [facility] Creatinine 0.94 0.66 - [place] 1.25 mg/dL [facility] GFR Estimate 80 >60 [place] mL/min/1.[address] Comment: Non GFR Calc GFR Estimate If Black >90 >60 mL/min/1.7m2 F [facility] GFR Calc [facility] Calcium 8.4 (L) 8.5 - 10.1 mg/dL [facility] Specimen Anatomical Collection Method Collection Time Receive d Time (Source) Location / / Volume Laterality Blood specimen 01/02/2016 2:04 AM 016 2:16 (specimen) CDT AM CDT Edith Barksdale MD LAB - BLOOD ORDERABLES Performing Organization Address City/State/ZIP Code Phon e Number M [facility] [address] [place], [place] [address] [facility] [address] [place], [place] [address], [facility] [phone] (ABNORMAL) CBC + differential (01/02/2016 2:04 AM CDT) [facility] gist Method Time Signature WBC 13.3 (H) 4.0 - [place] 11.0 [facility] 10e9/[facility] RBC Count 4.95 4.4 - 5.9 [place] 10e12/L [facility] Hemoglobin 14.2 13.3 - [place] 17.7 g/dL [facility] Hematocrit 43.8 40.0 - [place] 53.0 % [facility] MCV 89 78 - 100 [facility] MCH 28.7 26.5 - [place] 33.0 pg [facility] MCHC 32.4 31.5 - [place] 36.5 g/dL [facility] RDW 13.2 10.0 - [place] 15.0 % [facility] Platelet Count 221 150 - 450 [place] [id number]/[facility] Diff Method Automated [place] Method [facility] % Neutrophils 67.9 % [facility] % Lymphocytes 18.2 % [facility] % Monocytes 10.9 % [facility] % Eosinophils 2.1 % [facility] % Basophils 0.5 % [facility] % Immature 0.4 % [place] Granulocytes [facility] Nucleated RBCs 0 0 /100 [facility] Absolute 9.1 (H) 1.6 - 8.3 [place] Neutrophil 10e9/L [facility] Absolute 2.4 0.8 - 5.3 [place] Lymphocytes 10e9/L [facility] Absolute 1.5 (H) 0.0 - 1.3 [place] Monocytes 10e9/[facility] Absolute 0.3 0.0 - 0.7 [place] Eosinophils 10e9/L [facility] Absolute 0.1 0.0 - 0.2 [place] Basophils 10e9/L [facility] Abs Immature 0.1 0 - 0.4 [place] Granulocytes 10e9L [facility] Absolute 0.0 [facility] Specimen Anatomical Collection Method Collection Time Receive d Time (Source) Location / / Volume Laterality Blood specimen 01/02/2016 2:04 AM 016 2:16 (specimen) CDT AM CDT Edith Barksdale MD LAB - BLOOD ORDERABLES Performing Organization Address City/State/ZIP Code Phon e Number M [address] [phone] [facility] [address] [place], [place] [address] [place] [address] documented in this encounter Visit Diagnoses Diagnosis Diverticulitis of colon Diverticulitis of colon (without mention of hemorrhage) documented in this encounter Administered Medications Inactive Administered Medications - up to 3 most recent administrations Medication Order MAR Action Action Date Dose Rate Site ciprofloxacin (CIPRO) tablet 500 Given 01/02/2016 3:14 AM CDT 50 0 mg mg STAT, 500 mg, Oral, ONCE, On Sat01/02/16 at 0252, For 1 dose, Administer at least 2 hours before or 4 hours after aluminum, calcium, iron, zinc or magnesium containing medications. May be taken with food or on an empty stomach. Do not administer alone with a dairy product like milk or yogurt or calcium-fortified juice, but may be administered with a meal containing dairy., Indications: Intra-Abdominal Infection HYDROmorphone (PF) (DILAUDID) injection 0.5 Given 01/02/2016 3:14 AM CDT 0.5 mg mg 0.5 mg, Intravenous, EVERY 15 MIN PRN, moderate to severe pain, Starting on Sat01/02/16 at 0250, For 3 doses metroNIDAZOLE (FLAGYL) tablet 500 mg Given 01/02/2016 3:13 AM CDT 500 mg STAT, 500 mg, Oral, ONCE, On Sat01/02/16 at 0252, For 1 dose, Indications: Intra-Abdominal Infection documented in this encounter Active and Recently Administered Medications Times are shown in CDT. Scheduled Medication Order 12/31/2015 01/01/2016 01/02/2016 ciprofloxacin (CIPRO) tablet 500 mg (COMPLETED) 0314 (Given - Provider: Massimo Goodson RN) STAT, 500 mg, Oral, ONCE, On Sat01/02/16 at 0252, For 1 dose, Administer at least 2 hours before or 4 hours after aluminum, calcium, iron, zinc or magnesium containing medications. May be taken with emir d or on an empty stomach. Do not adminis ter alone with a dairy product like milk or yogurt or calcium-fortified juice, but may be administered with a meal containing dairy., Indications: Intra-Abdominal Infection metroNIDAZOLE (FLAGYL) tablet 500 mg (COMPLETED) 312 (Given - Provider: Massimo Goodson RN) STAT, 500 mg, Oral, ONCE, On Sat01/02/16 at 0252, For 1 dose, Indications: Intra-Abdominal Infection PRN Medication Order 12/31/2015 01/01/2016 01/02/2016 HYDROmorphone (PF) (DILAUDID) injection 0.5 mg (CANCELED) 313 (Given - Provider: Massimo Goodson RN) 0.5 mg, Intravenous, EVERY 15 MIN PRN, m oderate to severe pain, Starting on Sat01/02/16 at 0250, For 3 doses documented in this encounter Care Teams Window/Distribution Clerk Relationship Specialty Start Date End Date Sumanth Bearden PCP - General Family Practice 01/09/14 03/01/[id number] [place] [address] [place], [place] [id number] documented as of this encounter
--- OUTSIDE RECORDS SUMMARY | 2022-01-20 08:12 | XMS_ITS | Encounter Summary ---
:1950 Author Organization [facility] Address [address] [place] [address] Care Team Providers Name Role Phone Sumanth Bearden Primary Care Provider [phone] Reason for Visit Auth/Cert Specialty Diagnoses / Procedures Referred By Contact Refer red To Contact Diagnoses Diverticulitis of large intestine with perforation without bleeding Perforated diverticulum of large intestine Rh 5 Medica l Surgical Procedures COMBINED COLECTOMY WITH COLOSTOMY [address] [place], [place] [address] Phone: Fax: Referral ID Status Reason Start Date Expiration Date Visits Requ ested Visits Authorized [id number] 06/01/2016 06/01/2017 1 1 Encounter Details Date Type Department Care Team Description 05/31/2016 - Surgery [facility] Keara Campuzano, expl oratory laparotomy 06/01/2016 Chu Arauz MD sigmoid colectomy Services [address] [place] [id number] [phone] (Wo rk) Surgery Details Date/Time Status Location OR Service Patient Class Case Case Trauma Class Type Case? 05/31/16 11:40 Posted RH OR OR 02 General Inpatient PM Panel 1 Procedure LRB Anes Op Region Wound Class Commen ts exploratory laparotomy N/A General Abdomen IV-Dirty or e xploratory laparotomy sigmoid colectomy Infected sigmoid colectomy Surgeon Surgeon Role Service Panel Keara Campuzano MD Primary General 1 Manoj Mosqueda PA-C Assisting Observer Gravity Prospecting Prem strong 1 documented in this encounter Social History Tobacco Use Types Packs/Day Years Used Date Never Smoker Alcohol Use Standard Drinks/Week Comments No 0 (1 standard drink = 0.6 oz pure alcoho l) Sex Assigned at Date Recorded Not on file documented as of this encounter Last Filed Vital Signs Vital Sign Reading Time Taken Comments Blood Pressure 161/94 05/31/2016 11:59 PM DRAWING FRAME TENDER Pulse 76 05/31/2016 11:39 PM DRAWING FRAME TENDER Temperature 36.5 ??C (97.7 ??F) 05/31/2016 11:59 PM DRAWING FRAME TENDER Respiratory Rate 20 05/31/2016 11:59 PM DRAWING FRAME TENDER Oxygen Saturation 95% 05/31/2016 11:39 PM DRAWING FRAME TENDER Inhaled Oxygen Concentration - - Weight 115.7 kg (255 lb) 05/31/2016 8:09 PM DRAWING FRAME TENDER Height 175.3 cm (5' 9.02) 05/31/2016 8:09 PM DRAWING FRAME TENDER Body Mass Index 37.64 05/31/2016 8:09 PM DRAWING FRAME TENDER documented in this encounter Discharge Summaries Mica Verma PA-C - 05/31/2016 9:45 PM CST [facility] Discharge Summary Surgery Date of Admission: 05/31/2016 [...] and read back by Tahmina Zhang, RN @[id number] on 06/02/16. . * Culture negative monitoring [...] 2. No abscess. MARCUS LONGORIA MD ING FRAME TENDER Associated attestation - Keara Campuzano MD - 06/07/2016 10:26 AM DRAWING FRAME TENDER Physician Attestation I, Keara Campuzano, personally saw and evaluated Nicolette Dickson as part of a shared visit. I have reviewed and discussed with the advanced practice provider their discharge plan. Keara Campuzano Date of Service (when I saw the patient): 06/05/16 documented in this encounter Discharge Instructions Discharge InstructionsKeara Campuzano MD - 06/05/2016 12:13 PM CST HOME CARE FOLLOWING ABDOMINAL SURGERY Nestor Quach, Oralia Aly D. Maurer, R. O???Kathy Cazares INCISIONAL CARE: Replace the bandage over your incision (or incisions) until all drainage stops, or if more comfortable to have in place. If present, leave the steri-strips (white paper tapes) in place till they fall off. If you have rex in your incision at the time of [...] Walk around frequently. You may consider an [id number]-[id number] stool-softener. Your Pharmacist can assist you with [...] to discuss with the nurse or physician assistant associate full professor. # There is a surgeon ASSEMBLER DC [employer] [place] on weekday evenings and over the weekend in case of urgent need only, andmay be contacted at the same number. If you are having an emergency, call 911 or proceed to your nearest emergency department. ING FRAME TENDER documented in this encounter Medications at Time [...] Campuzano MD - 06/05/2016 8:51 AM CST [facility] General Surgery Progress Note Assessment and Plan: [...] sounds Inc(s) - clean, dry, intact + rex VIDYA site - cdi, tegaderm dressing placed. Data: Recent Labs Lab Test 06/03/16 0638 05/31/1601/01/16 0204 HGB 13.1* 14.6 14.2 WBC 12.1* 13.4* 13.3* Mica Verma PA-C Doing well. Had large BM. Tolerating diet. Will discharge to home. Keara Campuzano MD [facility] ING FRAME TENDER Keara Campuzano MD - 06/04/2016 9:00 AM CST [facility] General Surgery Progress Note Assessment and Plan: [...] History: Comfortable in chair, minimal use of HUMAN RESOURCES OFFICE MANAGER. Walking frequently. Voiding well. +flatus, feeling hungry.O2 [...] inc - dry. No erythema at site. Rutledge in place Yannick - no fluid in [...] and read back by Tahmina Zhang, RN @[facility] 06/02/16. .* Culture negative monitoring continues [...] 84 >90Non GFR Calc 88 GFRESTBLACK >90African Malawian GFR Calc >90African Malawian GFR Calc >90African [place]awian GFR Calc >90African Malawian GFR Calc DEANDRA -- 7.9* -- 8.5 PROTTOTAL -- -- -- 7.1 ALBUMIN -- -- -- 3.6 BILITOTAL -- -- -- 0.4 ALKPHOS -- -- -- 104 AST -- -- -- 21 ALT -- -- -- 32 Niki Ortez PA-C Seen and agree, Keara Campuzano MD [facility] ING FRAME TENDER Ashleigh Ramos MD - 06/03/2016 8:13 AM CST [facility] General Surgery Progress Note Assessment and Plan: [...] Plan: -Pain management: IV acetominophen and dilaudid HUMAN RESOURCES OFFICE MANAGER -Prophylaxis: PCDs, lovenox, IV pepcid -IV Zosyn, await culture results -Supplemental O2 and CPAP. Incentive spirometer hourly when awake -NPO except ice chips/sips of water, await return of bowel function -Advance activity as tolerated, 4 walks today and up to chair -Monitor for voiding vs urinary retention Interval History: Comfortable in bed, appropriate use of HUMAN RESOURCES OFFICE MANAGER. Up and walking yesterday, not yet today. [...] and read back by Tahmina Zhang RN @1971 on 06/02/16. .* Culture negative monitoring continues [...] 84 >90Non GFR Calc 88 GFRESTBLACK >90African Malawian GFR Calc >90African [place]awian GFR Calc >90African [place]awian GFR Calc DEANDRA 7.9* -- 8.5 PROTTOTAL -- -- 7.1 ALBUMIN -- -- 3.6 BILITOTAL -- -- 0.4 ALKPHOS -- -- 104 AST -- -- 21 ALT -- -- 32 Niki Ortez PA-C The patient has been seen and examined by me. I agree with the above assessment and plan. Ashleigh Ramos MD ING FRAME TENDER Ashleigh Ramos MD - 06/02/2016 8:40 AM CST [facility] General Surgery Progress Note Assessment and Plan: [...] Plan: -Pain management: IV acetominophen and dilaudid HUMAN RESOURCES OFFICE MANAGER -Prophylaxis: PCDs, lovenox, IV pepcid -IV Zosyn, [...] assessment and plan. Ashleigh Ramos MD ING FRAME TENDER Meri Stephens, RT - 06/01/2016 12:29 PM CST Paged to put oxygen inline with patient's home CPAP. Patient currently on home CPAP with 5 LPM oxygen inline. SpO2 94%. RT to follow. ING FRAME TENDER Keara Campuzano MD - 06/01/2016 10:16 AM CST [facility] General Surgery Progress Note Assessment and Plan: Assessment: -POD#0 s/p Exploratory laparotomy, sigmoid colectomy with anastomosis, peritoneal drain placed; peritoneal cultures pending -Leukocytosis on admission without additional sepsis criteria, due to perforated sigmoid diverticulitis -Hypoxia, postoperative plus h/o CARLOS; supplemental O2 in place, awaiting home CPAP Plan: -Pain management: IV acetominophen and dilaudid HUMAN RESOURCES OFFICE MANAGER -Prophylaxis: PCDs, lovenox dosing to start this [...] agree, Keara Campuzano MD [facility] ING FRAME TENDER Rachael Pena RT - 06/01/2016 5:39 AM CST Patient refusing hospital CPAP at this time. Rachael Pena June 01, 2016.5:39 AM ING FRAME TENDER documented in this encounter H&P Notes Keara Campuzano MD - 06/01/2016 12:20 AM CST [facility] - H&P Nicolette Dickson Age: [...] have been ordered. Keara Campuzano MD ING FRAME TENDER documented in this encounter ED Notes Latonya Gallagher RN - 05/31/2016 11:13 PM CST MD at bedside going over plan of care with pt. ING FRAME TENDER Latonya Gallagher RN - 05/31/2016 11:05 PM CST Pt states pain is a bit better at 7.5 out of 10, back from CT and hooked back up to BP and O2 monitoring. ING FRAME TENDER Gabrielle Nieto RN - 05/31/2016 8:10 PM CST Pt complains of LLQ pain, just finished abx yesterday for diverticulitis which he has a hx of, no imaging taken. ING FRAME TENDER Mayi Tovar MD - 05/31/2016 7:57 PM CST History Chief Complaint: Abdominal Pain HPI Nicolette Lori Randolph is a 65 year old male who presents with left lower quadrant abdominal pain. The patient reports two weeks ago he had onset of abdominal pain and went to [facility] where he was clinically diagnosed with diverticulitis [...] @ 2339 Indication: Pre-Op Rate 78 bpm. MA interval 150 ms. QRS duration 78 ms. [...] me. Mayi Tovar MD 06/01/16 0340 ING FRAME TENDER documented in this encounter Miscellaneous Notes Plan of Care - Antonietta Martinez RN - 06/05/2016 1:31 PM CST Problem: Goal Outcome Summary Goal: Goal Outcome Summary Outcome: Improving VSS except HTN 1x- notified surgery team No complaints of pain today Up independently, ambulated in hallway frequently Large BM today, passing flatus Advanced to low fiber diet Will DC this afternoon ING FRAME TENDER Plan of Care - Shanel Coleman, REIJ - 06/05/2016 5:54 AM CST Problem: Goal Outcome Summary Goal: Goal Outcome Summary Outcome: Improving Pt alert and oriented. Up ind. Dressing to abdomen and VIDYA site intact. On IV zosyn. POD 4. Clear liquid diet. Positive bowel sounds, passing gas. Lungs clear. ING FRAME TENDER Plan of Care - Mason Saldivar RN [...] to monitor and provide supportive care. ING FRAME TENDER Plan of Care - Antonietta Martinez RN [...] BM yet Will continue to monitor ING FRAME TENDER Plan of Care - Juliocesar Ellis RN - 06/04/2016 3:24 AM CST Problem: Goal Outcome Summary Goal: Goal Outcome Summary Pt vss, tmax 99.4. LSs clear, BS active, +ve for flatus, voiding adequately, dressing to abd CDI, Drain stripped x1. Tylenol+ zosyn scheduled. Denies N/V, N/T. Pt NPO with ioce chips. walkwed in hallways independently. CPAP with 1L O2 NC. ING FRAME TENDER Plan of Care - Kelly Huerta - 06/03/2016 6:38 PM CST Problem: Goal Outcome Summary Goal: Goal Outcome Summary A&Ox4. BP up to 171/80, T up to 99.8. Other VSS. Up SBA. Tolerated ambulation in halls x4. Reports 2/10 L abdominal pain. HUMAN RESOURCES OFFICE MANAGER dilaudid 0.2mg available q10 min. CV WDL. Denies CP, numbness & tingling. LS clear. Infrequent, productive cough. Small amt of clear sputum. Denies SOB. BS audible in all 4 quadrants. NPO. Denies N/V. Passing flatus, no BM post op. Voiding adequately. UTV midline incision, dressing CDI. UTV VIDYA site, dried serous drainage on dressing. ING FRAME TENDER Associated attestation - Tahmina Whitehead RN - 06/03/2016 7:51 PM DRAWING FRAME TENDER BP now WNL without intervention. Commercial Horticulture Instructor agrees with student note and assessment. Plan of Care - Juliocesar Ellis RN - 06/02/2016 10:07 PM CST Problem: Goal Outcome Summary Goal: Goal Outcome Summary VSS, Afebrile, denies pain. Surgical dressing CDI, drain insertion site mild drainage serosanguinous, abd binder in place, getting IV tylenol, HUMAN RESOURCES OFFICE MANAGER dilaudid, bowel sounds hypo, -ve for flatus. abd drainage + handley patent with adequate outputs. Denies nausea or SOB, Denies n/t and reports ambulating earlier and patient denies any new complains. Will continue to monitor. ING FRAME TENDER Plan of Care - Kelly Huerta - 06/02/2016 6:38 PM CST Problem: Goal Outcome Summary Goal: Goal Outcome Summary A&Ox4. Temp up to 100.9. Other VSS. Tolerating ambulation in halls, SBA. Reports L side abdominal pain. HUMAN RESOURCES OFFICE MANAGER dilaudid 0.2mg q10 min. CV WDL. Denies CP, numbness & tingling. LS clear. Denies SOB. 3L O2 CPAP. BS faint, hypoactive in all quadrants. No flatus or BM post op. NPO. Denies N/V. Handley draining adequately, 1275mL output Midline abdominal incision UTV, dressing CDI. VIDYA left abdomen, UTV site, dressing CDI, 15 mL serous output w/clots. ING FRAME TENDER Associated attestation - Tahmina Whitehead RN - 06/02/2016 6:52 PM DRAWING FRAME TENDER Commercial Horticulture Instructor agrees with student note and assessment. Plan of Care - Noelle Velez RN - 06/01/2016 10:43 PM CST Problem: Goal Outcome Summary Goal: Goal Outcome Summary Temp max 100.1 oral, other vitals stable. NPO, denies nausea. Pain well controlled with Dilaudid HUMAN RESOURCES OFFICE MANAGER, total used last 8 hours was 1.2 mg. Bowel sounds hypoactive, denies flatus. Handley patent. Midline incision with island dressing, some shadowing. Dressing surrounding VIDYA site was changed. Abdominal binder in place. ING FRAME TENDER Plan of Care - Kelly Huerta - 06/01/2016 6:50 PM CST Problem: Goal Outcome Summary Goal: Goal Outcome Summary A&Ox4. VSS. Up A2. Tolerated ambulating to chair and sitting up for couple hours. Reports left side abdominal pain. HUMAN RESOURCES OFFICE MANAGER hydromorphone, 0.2mg available every 10 min. Ice applied. Abdominal binder inplace. CV WDL. Denies CP, numbness & tingling. LS clear, diminished. BS faint, hypoactive in all quadrants. NPO. Denies N/V. Not passing flatus. No BM post op. Handley catheter draining adequately, 350mL out. UTV midline abdominal incision. Dried drainage on dressing. UTV VIDYA site, 15mL serosanguenous fluid out. ING FRAME TENDER Associated attestation - Tahmina Whitehead RN - 06/01/2016 8:33 PM DRAWING FRAME TENDER Commercial Horticulture Instructor agrees with student note and assessment. Pharmacy-Admission Medication History - Sulma Miller [facility] - 06/01/2016 9:00 AM CST Admission medication history interview status for this patient is complete. See [facility] admission navigator for allergy information, prior to admission medications and immunization status. Medication history interview source(s):Patient Medication history resources (including written lists, pill bottles, clinic record):[facility] Changes made to GREENHOUSE TRANSPLANTER medication list: Added: magnesium supplement Deleted: ---- [...] 05/31/2016 at am Yes Reported, Patient ING FRAME TENDER Plan of Care - Pratibha Whiting RN - 06/01/2016 8:06 AM CST Problem: Goal Outcome Summary Goal: Goal Outcome Summary Outcome: No Change Pt up to unit @ 0540 from PACU. IVF 100/hr. IV Zosyn and Ofirmev. Handley output 125. Left VIDYA with 30 output. HUMAN RESOURCES OFFICE MANAGER 0.2/10 min lockout/1.8 hr limit. Denies any pain. On 5L oxymask. will bring bi-pap from home. ING FRAME TENDER Op Note - Keara Campuzano MD - 06/01/2016 2:32 AM CST General Surgery Operative Note Pre-operative diagnosis: perforated colon Post-operative diagnosis: same Procedure: Colectomy, Sigmoid Surgeon: Keara Campuzano MD Observer Gravity Prospecting(s): Manoj Mosqueda PA-C Anesthesia: General Estimated blood [...] and the colon was quite empty. A [id number] functional end-to-end stapled anastomosis was now performed. The staple lines were reinforced with 3-0 Vicryl. The anastomosis was entirely tension-free. It was placed appropriately in the gutter. A 15-Korean round Yannick drain was now placed adjacent [...] and the skin was closed using skin rex. The patient tolerated the procedure well and [...] 06/01/2016 1:24 AM Keara Campuzano MD ING FRAME TENDER documented in this encounter Plan of Treatment Not on filedocumented as of this encounter Procedures Procedure Name Priority Date/Time Associated Diagnosis Comme nts PLATELET COUNT Routine 06/04/2016 7:40 Diverticulitis of Resul ts for this AM DRAWING FRAME TENDER large intestine with procedu re are in perforation without the resu lts bleeding section. CREATININE Routine 06/04/2016 7:40 Diverticulitis of Results for this AM DRAWING FRAME TENDER large intestine with procedu re are in perforation without the resu lts bleeding section. CPAP FOR STABLE SLEEP Routine 06/04/2016 12:05 APNEA WITH HOME AM DRAWING FRAME TENDER EQUIPMENT SETTINGS BASIC METABOLIC PANEL Routine 06/03/2016 6:38 Diverticulitis o f Results for this AM DRAWING FRAME TENDER large intestine with procedu re are in perforation without the resu lts bleeding section. CBC WITH PLATELETS Routine 06/03/2016 6:38 Diverticulitis of R esults for this AM DRAWING FRAME TENDER large intestine with procedu re are in perforation without the resu lts bleeding section. CPAP FOR STABLE SLEEP Routine 06/03/2016 12:05 APNEA WITH HOME AM DRAWING FRAME TENDER EQUIPMENT SETTINGS GLUCOSE BY METER Routine 06/02/2016 6:46 Diverticulitis of Res ults for this AM DRAWING FRAME TENDER large intestine with procedu re are in perforation without the resu lts bleeding section. LACTIC ACID WHOLE STAT 06/02/2016 5:56 Diverticulitis of Re sults for this BLOOD AM DRAWING FRAME TENDER large intestine with procedu re are in perforation without the resu lts bleeding section. CPAP FOR STABLE SLEEP Routine 06/02/2016 12:05 APNEA WITH HOME AM DRAWING FRAME TENDER EQUIPMENT SETTINGS PLATELET COUNT Routine 06/01/2016 7:47 Diverticulitis of Resul ts for this AM DRAWING FRAME TENDER large intestine with procedu re are in perforation without the resu lts bleeding section. CREATININE Routine 06/01/2016 7:47 Diverticulitis of Results for this AM DRAWING FRAME TENDER large intestine with procedu re are in perforation without the resu lts bleeding section. CPAP FOR STABLE SLEEP Routine 06/01/2016 4:54 APNEA WITH HOME AM DRAWING FRAME TENDER EQUIPMENT SETTINGS SURGICAL PATHOLOGY Routine 06/01/2016 1:24 Result s for this EXAM AM DRAWING FRAME TENDER procedure are i n the results section. GRAM STAIN Routine 06/01/2016 12:48 Diverticulitis of Result s for this AM DRAWING FRAME TENDER large intestine with procedu re are in perforation without the resu lts bleeding section. FLUID CULTURE AEROBIC Routine 06/01/2016 12:48 Diverticulitis of Results for this BACTERIAL AM DRAWING FRAME TENDER large intestine with procedu re are in perforation without the resu lts bleeding section. ANAEROBIC BACTERIAL Routine 06/01/2016 12:48 Diverticulitis of Results for this CULTURE ROUTINE AM DRAWING FRAME TENDER large intestine with proc edure are in perforation without the resu lts bleeding section. COLECTOMY, OPEN 06/01/2016 12:18 perforated colon AM DRAWING FRAME TENDER EKG 12-LEAD, TRACING STAT 05/31/2016 11:39 Res ults for this ONLY PM DRAWING FRAME TENDER procedure are i n the results section. CT ABDOMEN PELVIS W STAT 05/31/2016 10:29 Resu lts for this CONTRAST PM DRAWING FRAME TENDER procedure are i n the results section. CBC WITH PLATELETS & STAT 05/31/2016 8:41 Resu lts for this DIFFERENTIAL PM DRAWING FRAME TENDER procedure are i n the results section. LACTIC ACID WHOLE STAT 05/31/2016 8:41 Results for this BLOOD PM DRAWING FRAME TENDER procedure are i n the results section. COMPREHENSIVE STAT 05/31/2016 8:41 Results for this METABOLIC PANEL PM DRAWING FRAME TENDER procedure ar e in the results section. documented in this encounter Results Creatinine (06/04/2016 7:40 AM DRAWING FRAME TENDER) athologist Signature Creatinine 0.99 0.66 - 1.25 [place] mg/dL [facility] GFR Estimate 76 >60 [place] mL/min/1.7m [address] Comment: Non GFR Calc GFR Estimate If Black >90 >60 mL/min/1.7m2 [facility] GFR Calc HOSP ITAL Specimen Anatomical Collection Method Collection Time Receive d Time (Source) Location / / Volume Laterality Blood specimen 06/04/2016 7:40 AM 017 7:51 (specimen) DRAWING FRAME TENDER AM DRAWING FRAME TENDER Keara Campuzano MD LAB - BLOOD ORDERABLES Performing Organization Address City/State/ZIP Code Phon e Number [facility] [address] [place], [place] [address] [facility] [address] [phone] Platelet count (06/04/2016 7:40 AM DRAWING FRAME TENDER) P athologist Signature Platelet Count 207 150 - 450 [place] 10e9/L [facility] Specimen Anatomical Collection Method Collection Time Receive d Time (Source) Location / / Volume Laterality Blood specimen 06/04/2016 7:40 AM 017 7:51 (specimen) DRAWING FRAME TENDER AM DRAWING FRAME TENDER Keara Campuzano MD LAB - BLOOD ORDERABLES Performing Organization Address City/[facility]/ZIP [facility] Phon e Number [facility] [address], [place] [address] [facility] [address] [place], [place] [address], [facility] [phone] (ABNORMAL) Basic metabolic panel (06/03/2016 6:38 AM DRAWING FRAME TENDER) athologist Signature Sodium 141 133 - 144 [place] mmol/[facility] Potassium 3.9 3.4 - 5.3 [place] mmol/[facility] Chloride 108 94 - 109 [place] mmol/L [facility] Carbon Dioxide 26 20 - 32 [place] mmol/L [facility] Anion Gap 7 3 - 14 [place] mmol/L [facility] Glucose 131 (H) 70 - 99 [place] mg/dL [facility] Urea Nitrogen 8 7 - 30 [place] mg/dL [facility] Creatinine 0.91 0.66 - [place] 1.25 mg/dL [facility] GFR Estimate 84 >60 [place] mL/min/1.[address] Comment: Non GFR Calc GFR Estimate If Black >90 >60 mL/min/1.7m2 [facility] GFR Calc HOSP ITAL Calcium 7.9 (L) 8.5 - 10.1 mg/dL [facility] Specimen Anatomical Collection Method Collection Time Receive d Time (Source) Location / / Volume Laterality Blood specimen 06/03/2016 6:38 AM 017 7:05 (specimen) DRAWING FRAME TENDER AM DRAWING FRAME TENDER Ashleigh Ramos MD LAB - BLOOD ORDERABLES Performing Organization Address City/State/ZIP Code Phon e Number [facility] [address] [place], [place] [address] [facility] [address] [place], [place] [address], [facility] [phone] (ABNORMAL) CBC with platelets (06/03/2016 6:38 AM DRAWING FRAME TENDER) Analysis Performed At Patho logist Time Signature WBC 12.1 (H) 4.0 - 11.0 [place] 10e9/L [facility] RBC Count 4.38 (L) 4.4 - 5.9 [place] 10e12/L [facility] Hemoglobin 13.1 (L) 13.3 - [place] 17.7 g/dL [facility] Hematocrit 40.1 40.0 - [place] 53.0 % [facility] MCV 92 78 - 100 [facility] MCH 29.9 26.5 - [place] 33.0 pg [facility] MCHC 32.7 31.5 - [place] 36.5 g/dL [facility] RDW 13.2 10.0 - [place] 15.0 % [facility] Platelet Count 184 150 - [address] Specimen Anatomical Collection Method Collection Time Receive d Time (Source) Location / / Volume Laterality Blood specimen 06/03/2016 6:38 AM 017 7:05 (specimen) DRAWING FRAME TENDER AM DRAWING FRAME TENDER Ashleigh Ramos MD LAB - BLOOD ORDERABLES Performing Organization Address City/State/ZIP Code Phon e Number [place] [address] [phone] (ABNORMAL) Glucose by meter (06/02/2016 6:46 AM DRAWING FRAME TENDER) athologist Signature Glucose 167 (H) 70 - 99 POINT OF CARE mg/dL TEST, GLUCOSE Specimen Anatomical Collection Method Collection Time Receive d Time (Source) Location / / Volume Laterality 06/02/2016 6:46 AM 7 6:51 DRAWING FRAME TENDER AM DRAWING FRAME TENDER Keara Campuzano MD LAB - BEAKER POCT Performing Organization Address City/State/ZIP Code Phon e Number [facility] POINT OF CARE TEST, GLUCOSE POINT OF CARE TEST, GLUCOSE Lactic acid level STAT (06/02/2016 5:56 AM DRAWING FRAME TENDER) athologist Signature Lactic Acid 1.6 0.7 - 2.1 [place] mmol/[facility] Specimen Anatomical Collection Method Collection Time Receive d Time (Source) Location / / Volume Laterality Blood specimen 06/02/2016 5:56 AM 017 6:10 (specimen) DRAWING FRAME TENDER AM DRAWING FRAME TENDER Keara Campuzano MD LAB - BLOOD ORDERABLES Performing Organization Address City/[facility]/ZIP [facility] Phon e Number [facility] [address] [address] [place], [place] [address] [facility] [address] [place], [place] [address] [facility] [phone] Creatinine (06/01/2016 7:47 AM DRAWING FRAME TENDER) [facility] gist Method Time Signature Creatinine 0.81 0.66 - [place] 1.25 [facility] mg/dL [facility] GFR Estimate >90 >60 [place] Non GFR Calc mL/min/1. [place] 7m2 [facility] GFR Estimate >90 >60 [place] If Black GFR Calc mL/min/1. [address] Specimen Anatomical Collection Method Collection Time Receive d Time (Source) Location / / Volume Laterality Blood specimen 06/01/2016 7:47 AM 017 7:58 (specimen) DRAWING FRAME TENDER AM DRAWING FRAME TENDER Keara Campuzano MD LAB - BLOOD ORDERABLES Performing Organization Address City/[facility]/ZIP Code Phon e Number M [facility] [address] [address] [facility] [address] [address], [facility] [phone] Platelet count (06/01/2016 7:47 AM DRAWING FRAME TENDER) athologist Signature Platelet Count 225 150 - 450 [place] 10e9/L [facility] Specimen Anatomical Collection Method Collection Time Receive d Time (Source) Location / / Volume Laterality Blood specimen 06/01/2016 7:47 AM 017 7:58 (specimen) DRAWING FRAME TENDER AM DRAWING FRAME TENDER Keara Campuzano MD LAB - BLOOD ORDERABLES Performing Organization Address City/State/ZIP Code Phon e Number M [facility] [address] [place], [place] [address] [facility] [address] [place], [place] [address] [facility] [phone] Surgical pathology exam (06/01/2016 1:24 AM DRAWING FRAME TENDER) Component Value Ref Test Analysis Performed At [facility] Range Method Time Signature Copath Report Patient Name: NICOLETTE DICKSON MR#: [id number] Specimen #: [id number] Collected: 06/01/2016 Received: 06/01/2016 Reported: 06/04/2016 11:25 [...] MICROSCOPIC: Microscopic evaluation performed. CPT Codes: A: 63229-RU8 TESTING LAB LOCATION: [address] ??[id number] COLLECTION SITE: Client: [facility] Location: [place] (R) Specimen (Source) Anatomical Collection Method Collection Time Re ceived Time Location / / Volume Laterality Tissue specimen SIGMOID COLON PART 06/01/2016 1:24 AM (specimen) / Unknown DRAWING FRAME TENDER Comment: Stitch quevedo proximal Keara Campuzano MD LAB - BEAKER AP Performing Organization Address City/State/ZIP Code Phon e Number COPATH (ABNORMAL) Gram stain (06/01/2016 12:48 AM DRAWING FRAME TENDER) Component Value Ref Test Analysis Performed At [facility] Range Method Time Signature Specimen Fluid [facility] Peritoneum [facility] Special Specimen [facility] Requests collected in [facility] eSwab transport [facility] (white cap) [facility] Gram Stain Rare Gram positive cocci MICR O RAPID Many WBC'S seen Predominance of PMNs seen TESTING LAB (A) Micro Report FINAL MICRO RAPID Status 06/01/2016 TESTING LAB Specimen (Source) Anatomical Collection Method Collection Time Re ceived Time Location / / Volume Laterality Specimen from SPECIMEN FROM 06/01/2016 12:48 wound (specimen) PERITONEUM / AM DRAWING FRAME TENDER Unknown Comment: Peritoneal fluid from abdomen. Keara Campuzano MD LAB - MICRO GENERAL ORDERABL ES Performing Organization Address City/State/ZIP Code Phon e Number MICRO RAPID TESTING LAB [address] [place] [id number] [address] (ABNORMAL) Fluid Culture Aerobic Bacterial (06/01/2016 12:48 AM DRAWING FRAME TENDER) Component Value Ref Test Analysis Performed At [facility] Range Method Time Signature Specimen Fluid Peritoneum [facility] Description [facility] Special This specimen was received o n a swab. Results may not be optimal. For maximum [facility] Requests sensitivity of detection, s ubmit tissue, fluid, or needle aspirate. Specimen [facility] collected in eSwab transport (white cap) [facility] Culture Micro Moderate growth Staphylococc us epidermidis [...] and read back by Tahmina Zhang, RN @1527 on 06/02/16. . (A) Micro Report FINAL [...] 06/01/2016 12:48 wound (specimen) PERITONEUM / AM DRAWING FRAME TENDER Unknown Comment: Peritoneal fluid from abdomen. Organism [...] Code Phon e Number INFECTIOUS DISEASES [address] [place] [address] DIAGNOSTIC LABORATORY, [address] [address] INFECTIOUS DISEASE [address] [place] [address], [facility] DIAGNOSTIC LABORATORY Anaerobic bacterial culture (06/01/2016 12:48 AM DRAWING FRAME TENDER) [facility] Method Time Signature Specimen Fluid [facility] Peritoneum [facility] Special Received in [facility] anaerobic [place] MEDICAL tubes. [facility] Culture Micro No anaerobes INFECTIOUS isolated DISEASE DIAGNOSTIC LABORATORY Micro Report FINAL INFECTIOUS Status 06/08/2016 DISEASE DIAGNOSTIC LABORATORY Specimen (Source) Anatomical Collection Method Collection Time Re ceived Time Location / / Volume Laterality Fluid specimen SPECIMEN FROM 06/01/2016 12:47 (specimen) PERITONEUM / AM DRAWING FRAME TENDER Unknown Comment: Peritoneal fluid from abdomen Keara Campuzano MD LAB - MICRO GENERAL ORDERABL ES Performing Organization Address City/State/ZIP Code Phon e Number INFECTIOUS DISEASES [address] [place] [address] DIAGNOSTIC LABORATORY, [address] INFECTIOUS DISEASE [address] DIAGNOSTIC LABORATORY EKG 12 lead (05/31/2016 11:39 PM DRAWING FRAME TENDER) [facility] gist Method Time Signature Interpretation ECG Click View RADIOLOGY Image link RESULTS to view waveform and result Specimen (Source) Anatomical Collection Method Collection Time Re ceived Time Location / / Volume Laterality 05/31/2016 11:39 PM DRAWING FRAME TENDER Mayi Tovar MD ECG ORDERABLES Performing Organization Address City/State/ZIP Code Phon e Number RADIOLOGY RESULTS CT Abdomen Pelvis w Contrast (05/31/2016 10:29 PM DRAWING FRAME TENDER) Anatomical Region Laterality Modality Abdomen/Pelvis, SUBRAD CT BODY, [facility] CT ABDOMEN PELVIS Computed Tomography Specimen (Source) Anatomical Location Collection Method / Collectio n Time Received Time / Laterality Volume Impressions 06/01/2016 12:08 AM DRAWING FRAME TENDER IMPRESSION: 1. Diverticulitis of the proximal sigmoi d colon. There are a few foci of extraluminal gas in the fat about the inflamed diverticulum and also scattered in the upper abdomen, con sistent with perforation. 2. No abscess. MARCUS LONGORIA MD Narrative 06/01/2016 12:08 [address] DRAWING FRAME [address]ER CT ABDOMEN AND PELVIS WITH CONTRAST ?? [...] Lactic acid whole blood (05/31/2016 8:41 PM DRAWING FRAME TENDER) athologist Signature Lactic Acid 1.3 0.7 - 2.1 [place] mmol/L [facility] Specimen Anatomical Collection Method Collection Time Receive d Time (Source) Location / / Volume Laterality Blood specimen 05/31/2016 8:41 PM 017 8:49 (specimen) DRAWING FRAME TENDER PM DRAWING FRAME TENDER Chino Mosher MD LAB - BLOOD ORDERABLES Performing Organization Address City/State/ZIP Code [facility] e Number [place] [address] [facility] [address] [phone] (ABNORMAL) Comprehensive metabolic panel (05/31/2016 8:41 PM DRAWING FRAME TENDER) athologist Signature Sodium 141 133 - 144 [place] mmol/L [facility] Potassium 3.6 3.4 - 5.3 [place] mmol/L [facility] Chloride 103 94 - 109 [place] mmol/L [facility] Carbon Dioxide 29 20 - 32 [place] mmol/L [facility] Anion Gap 9 3 - 14 [place] mmol/L [facility] Glucose 177 (H) 70 - 99 [place] mg/dL [facility] Urea Nitrogen 13 7 - 30 [place] mg/dL [facility] Creatinine 0.87 0.66 - [place] 1.25 mg/dL [facility] GFR Estimate 88 >60 [place] mL/min/1.[address] Comment: Non GFR Calc GFR Estimate If Black >90 >60 mL/min/1.7m2 F [facility] GFR Calc HOSP ITAL Calcium 8.5 8.5 - 10.1 mg/dL [facility] Bilirubin Total 0.4 0.2 - 1.3 mg/dL [facility] Albumin 3.6 3.4 - 5.0 g/dL [facility] Protein Total 7.1 6.8 - 8.8 g/dL [facility] Alkaline Phosphatase 104 40 - 150 U/L [facility] ALT 32 0 - 70 U/L [facility] AST 21 0 - 45 U/L [facility] Specimen Anatomical Collection Method Collection Time Receive d Time (Source) Location / / Volume Laterality Blood specimen 05/31/2016 8:41 PM 017 8:58 (specimen) DRAWING FRAME TENDER PM DRAWING FRAME TENDER Chino Mosher MD LAB - BLOOD ORDERABLES Performing Organization Address City/State/ZIP Code Phon e Number M [place] [address] [address] [place] [address] [facility] [address] [phone] (ABNORMAL) CBC + differential (05/31/2016 8:41 PM DRAWING FRAME TENDER) [facility] gist Method Time Signature WBC 13.4 (H) 4.0 - [place] 11.0 [facility] 10e9/L [facility] RBC Count 5.03 4.4 - 5.9 [place] 10e12/L [facility] Hemoglobin 14.6 13.3 - [place] 17.7 g/dL [facility] Hematocrit 44.8 40.0 - [place] 53.0 % [facility] MCV 89 78 - 100 [facility] MCH 29.0 26.5 - [facility] 33.0 pg [facility] MCHC 32.6 31.5 - [place] 36.5 g/dL [facility] RDW 13.2 10.0 - [place] 15.0 % [facility] Platelet Count 212 150 - 450 [place] 10e9/L [facility] Diff Method Automated [facility] % Neutrophils 65.8 % [facility] % Lymphocytes 23.4 % [facility] % Monocytes 7.5 % [facility] % Eosinophils 2.5 % [facility] % Basophils 0.4 % [facility] % Immature 0.4 % [place] Granulocytes [facility] Nucleated RBCs 0 0 /100 [facility] Absolute 8.8 (H) 1.6 - 8.3 [place] Neutrophil 10e9/L [facility] Absolute 3.1 0.8 - 5.3 [place] Lymphocytes 10e9/L [facility] Absolute 1.0 0.0 - 1.3 [place] Monocytes 10e9/L [facility] Absolute 0.3 0.0 - 0.7 [place] Eosinophils 10e9L [facility] Absolute 0.1 0.0 - 0.2 [place] Basophils 10e/[facility] Abs Immature 0.1 0 - 0.4 [place] Granulocytes [address] [place] [address] Absolute 0.0 [place] Nucleated RBC [facility] Specimen Anatomical Collection Method Collection Time Receive d Time (Source) Location / / Volume Laterality Blood specimen 05/31/2016 8:41 PM 017 8:58 (specimen) DRAWING FRAME TENDER PM DRAWING FRAME TENDER Chino Mosher MD LAB - BLOOD ORDERABLES Performing Organization Address City/State/ZIP Code Phon e Number [place] [address] [phone] documented in this encounter Visit Diagnoses Not on filedocumented in this encounter Administered Medications Inactive Administered Medications - up to 3 most recent administrations Medication Order MAR Action Action Date Dose Rate Site acetaminophen (TYLENOL) tablet 500-1,000 mg 500-1,000 mg, Oral, EVERY 6 HOURS PRN, m ild pain, fever, Starting on 06/04/16 at 0907, Maximum acetaminophen dose from al l sources = 75 mg/kg/day not to exceed 4 gram ceFAZolin 1000 mg in Given 06/01/2016 2:07 AM 1,000 ml Operative NaCl 1000 mL DRAWING FRAME TENDER given Site/Surgical S ite PRN, Starting on Sat06/01/16 at 0207, Intra-procedure enoxaparin (LOVENOX) injection 40 mg Given 06/04/2016 9:46 PM DRAWING FRAME TENDER 40 mg 40 mg, Subcutaneous, EVERY 24 [...] notify provider., Post-procedure Given 06/03/2016 9:01 PM DRAWING FRAME TENDER 40 mg Given 06/02/2016 8:17 PM DRAWING FRAME TENDER 40 mg famotidine (PEPCID) injection 20 mg Given 06/05/2016 8:18 AM DRAWING FRAME TENDER 20 mg 20 mg, Intravenous, EVERY 12 HOURS, First dose on Sat06/02/16 at 0900 Given 06/04/2016 9:46 PM DRAWING FRAME TENDER 20 mg Given 06/04/2016 8:58 AM DRAWING FRAME TENDER 20 mg oxyCODONE (ROXICODONE) IR tablet 5-10 mg 5-10 mg, Oral, EVERY 3 HOURS PRN, severe pain, Startin g on Sat06/05/16 at 0920 piperacillin-tazobactam (ZOSYN) New Bag 06/05/2016 1:48 PM DRAWING FRAME TENDER 3.375 g 100 mL/hr infusion 3.375 g Routine, 3.375 g, Intravenous, EVERY 6 HOURS, First dose on Sat06/01/16 at 0700, Indications: Intra-Abdominal Infection New Bag 06/05/2016 8:18 AM DRAWING FRAME TENDER 3.375 g 100 mL/hr New Bag 06/05/2016 2:04 AM DRAWING FRAME TENDER 3.375 g 100 mL/hr sodium chloride (PF) 0.9% PF flush 3 mL Given 06/05/2016 2:04 AM DRAWING FRAME TENDER 3 mLs 3 mL, Intracatheter, EVERY 8 HOURS, First dose on Sat06/01/16 at 0500, And Q1H PRN, to lock peripheral IV dormant line., Post-procedure sodium chloride 0.9% Given 06/01/2016 2:04 AM 3,000 mLs Operative (bottle) irrigation DRAWING FRAME TENDER Site/Surgical S ite PRN, Starting on Sat06/01/16 at 0204, Intra-procedure documented in this encounter Active and Recently Administered Medications Times are shown in DRAWING FRAME TENDER. Scheduled Medication Order 06/03/2016 06/04/2016 06/05/2016 acetaminophen [...] RN) 0858 (Given - Provider: Antonietta Martinez, REJI)214 (Given - Provider: Mason Saldivar, REJI) 0818 (Given - Provider: Antonietta Martinez, REJI) 20 mg, Intravenous, EVERY 12 HOURS, First dose on Sat06/02/16 at 0900 HYDROmorphone (DILAUDID) HUMAN RESOURCES OFFICE MANAGER 1 mg/mL (CANCELED) 0639 ( New Syringe/Cartridge - Provider: Juliocesar Ellis RN)0948 (Rate/Dose Verify - Provider: Kelly Huerta)1332 (Shift Total - Provider: Tahmina Zhang RN)2142 (New Syringe/Cartridge - Provider: Juliocesar Ellis RN) 0808 (Canceled Entry - Provider: Antonietta Martinez RN - Comment: Pt did not use overnight - cancelled for night RN) HUMAN RESOURCES OFFICE MANAGER dose (mg): 0.2, Max HUMAN RESOURCES OFFICE MANAGER dose (mg): 0 .3, Lockout Interval (min): 10 minutes, HUMAN RESOURCES OFFICE MANAGER Continuous Rate (mg/hr): CONTINUOUS RATE IS NOT RECOMMENDED FOR OPIOID NAIVE PATIENTS, Hour Limit (mg): 1.8, Initial S et-up verified by: aimee khan, First dose on Sat06/01/16 at 0400, Do NOT give any additional opioids while on HUMAN RESOURCES OFFICE MANAGER. When transitioning from HUMAN RESOURCES OFFICE MANAGER to oral opioids MAY give first oral opioid dose 30 minut es PRIOR to discontinuation of HUMAN RESOURCES OFFICE MANAGER., Intravenous, Post-procedure piperacillin-tazobactam (ZOSYN) infusion 3.375 g 0019 (New Bag - Provider: Brittany Solomon LPN)0642 (New Bag - Provider: Juliocesar Ellis RN)1431 (New Bag - Provider: Kelly Huerta)2101 (New Bag - Provider: Juliocesar Ellis RN) 0222 (New Bag - Provider: Brittany Solomon LPN)0858 (New Bag - Provider: Antonietta Martinez RN)1427 (New Bag - Provider: Antonietta Martinez RN)2031 (New Bag - Provider: Mason Saldivar RN) 0204 (New Bag - Provider: Shanel Lopez RN)0818 (New Bag - Provider: Antonietta Martinez RN)1348 (New Bag - Provider: Jarvis Conway LPN) Routine, 3.375 g, Intravenous, EVERY 6 H OURS, First dose on Sat06/01/16 at 0700, Indications: Intra-Abdominal Infection sodium chloride (PF) 0.9% PF flush 3 mL 0428 (Not Give n - Provider: Brittany Solomon LPN - Reason: IV Infusing)1447 (Canceled Entry - Provider: Tahmina Zhang RN)2055 (Not Given - Provider: Juliocesar Ellis RN - Reason: IV Infusing) 0402 (Not Given - Provider: Juliocesar Ellis RN - Reason: IV Infusing)1300 (Canceled Entry - Provider: Antonietta Martinez RN) 0204 (Given - Provider: Shanel Lopez RN)0831 (Canceled Entry - Provider: Antonietta Martinez RN)1600 [...] Doherty PN)0748 (Rate/Dose Verify - Provider: Antonietta Martinez RN)0958 (New Bag - Provider: Antonietta Martinez RN) [...] Post-procedure documented in this encounter Care Teams Spanish Literature Professor Relationship Specialty Start Date End Date Sumanth Bearden PCP - General Family Practice 01/09/14 03/01/18 [id number] [place] [address] documented as of this encounter
--- OUTSIDE RECORDS SUMMARY | 2022-01-20 08:12 | XMS_ITS | Encounter Summary ---
:1950 Author Organization [facility] Address [address] [place] [address] Care Team Providers Name Role Phone Po Coats MD Primary Care Provider Reason for Referral Procedure/Equipment (Routine) - Incomplete Specialty Diagnoses / Procedures Referred By Contact Refer red To Contact Diagnoses Hip pain Osteoarthritis of left hip, unspecified osteoarthritis type Left hip impingement syndrome Pierre Robles MD Procedures [place] Injection Hip Lt [address] [place] [address] Referral ID Status Reason Start Date Expiration Date Visits V isits Requested Authorized [id number] Incomplete 08/30/2020 11/29/2021 1 1 (Routine) - Closed Specialty Diagnoses / Procedures Referred By Contact Refer red To Contact Diagnoses Impingement syndrome of right shoulder Pierre Robles MD Procedures Triamcinolone Acet Inj Nos: (per 10 mg) [address] [facility] [place] [address] Referral ID Status Reason Start Date Expiration Date Visits Requ ested Visits Authorized [id number] Closed 09/01/2020 12/01/2021 1 1 Reason for Visit Reason Comments HIP PAIN L, no JOAN SHOULDER PAIN Rt, no JOAN, saw Dr Harden 201 9 Encounter Details Date Type Department Care Team Description 08/30/2020 Office Visit [facility] Pierre Robles, Hip lawanda n (Primary Dx); Urgent Care Osteoarthritis of left hip, unspecified osteoarthritis type; [address] [facility] [address] Left hip impingement syndrome; [place], [place] Impingeme nt syndrome of right shoulder [id number] [phone] Social History Tobacco Use Types Packs/Day Years [...] on file documented as of this encounter Patient Instructions Patient InstructionsHoLeonard lee, ATC - 08/30/2020 8:[address] Pierre Robles MD Sports & Orthopaedic Medicine [facility] [place] [facility] Nurse Line: [phone] Please contact Orthopedic Urgent Care line for all requests and questions. Medication Requests: Prescriptions are not filled on Weekends or on Weekdays after 3:00PM For all medication refills: Request a refill using MyChart or contact your Pharmacy To schedule appointments: [phone] Paperwork Requests: FMLA or disability paperwork can be faxed to: [phone] Medical records: [phone] (option 4) [employer] E-mail Address: [email or web address] Diagnosis: Right shoulder pain and left hip pain Plan: Steroid injection Fluoro-guided hip injection - to be scheduled The right shoulder was injected with Kenalog-40 and lidocaine. Avoid Strenuous Activity for the remainder of the day and avoid activities that cause pain for one to two weeks following the injection. Signs and Symptoms to watch for: If you have any redness, warmth or increasing pain at the site of the injection or develop a fever, please call [phone] You've just had a steroid (cortisone) injection: Steroid injections are among the most frequently used treatments in orthopedics. Steroid injections are used for a wide range of conditions from arthritis, to bursitis, to tennis elbow, etc. The two most common side-effects of steroid shots called ???steroid flare??? and ???steroid flush. Steroid flare can cause an increase in symptoms in the first 24-48 hours after a steroid injection. This will usually subside within a few days, and is a cause from the additional fluid in your joint, and the trauma to the joint lining from the injection. This pain usually subsides quickly and can be aided with an ice pack and over the counter anti-inflammatory medication. Steroid flush is a flushing sensation and redness of their face. This reaction is more common in women, but can occur in men as well, and is seen into up to 15 percent of patients. This can begin within a few hours of the injection and may last for a few days. It is not dangerous, and will resolve itself. Diabetic patients also can have their blood sugar levels affected. Patients with diabetes should carefully monitor their blood sugar as steroid can cause a temporary rise in their levels. Patients taking insulin should be especially careful, checking their blood sugar often and adjusting the insulin doses, if necessary. Steroid injections can only be repeated every 3 or 4 months. For some conditions there may also be alimited total number of times it is safe to repeat an injection. RISKS: Infection ?? Whenever there is a break in the skin, like when a needle is used to administer steroid, there lorenzo chance of infection this is very unlikely to happen, usually would occur days after the injection.Signs and symptoms to watch for: fever, streaking redness, pus, drainage, foul odor, localized redness that continues to get worse, come to the office if symptoms are recognized during business hours, or proceed to the emergency room if symptoms are recognized after office hours. Skin Pigment Changes ?? Patients should also be aware that steroid may cause skin around the injection site to lighten. This is not harmful or long lasting. Loss of Fatty Tissue ?? This is one reason we limit the number of steroid injections administered. High doses of steroid can have detrimental effects on some tissues in the body, though due to the dosage we use the risk isextremely rare. When injected into fatty tissue, steroid can lead to a problem called fat atrophy. Fat atrophy causes loss of fatty tissue, which can lead to dimpling of the skin or the thinning out offat. Skin will feel thin. Patients who get steroid injections in the heel to treat plantar fasciitismay find walking painful as fat that usually cushions their steps may thin out. Tendon Rupture ?? Steroid can also cause weakening of tendons. This is one reason to limit the number of steroid injections administered. documented in this encounter Progress Notes Pierre Robles MD - 08/30/2020 12:00 AM CDT NAME: NICOLETTE RICE CSN: [id number] CLINIC NOTE DATE OF SERVICE: 08/30/2020 : 1950 SUBJECTIVE: This is a 70-year-old right-hand dominant male who returns mainly for his right shoulder. 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 He has received cortisone injections in the past. His last injection was with Dr. Harden on 01/05/2019. He is hoping to get another right shoulder injection today. He also notes pain in his left hip and groin which has been chronic. 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 Patient has tried some therapy. He is getting pain which radiates into his groin and somewhat into the thigh. He has not yet had a cortisone injection for the left hip, but is interestedin this. Will set him up with a left hip fluoroscopically guided intra-articular cortisone injectionin interventional radiology. I would consider repeating x- rays or getting advanced imaging with an MRI of the lumbar spine depending on his response to the injection. PROCEDURE: The patient was positioned and prepped. Risks and benefits of a right shoulder subacromial cortisone injection were again explained. Next, 40 mg of Kenalog and 4 mL of 1% lidocaine without epinephrine was injected using a posterior approach with the patient seated into the right subacromialspace without complication. The area was cleansed and bandaged, and the patient tolerated the procedure well. He will return for a left hip fluoroscopic guided intra-articular cortisone injection and potentially follow up for repeat x-rays of the hip or advanced imaging with the lumbar spine depending on his response. He is here with his , who understands the plan. MD LINH VELOZW/BETTE /[id number] documented in this encounter Plan of Treatment Not on filedocumented as of this encounter Results FL Injection Hip Lt [...] immediately following the injection. Pierre Robles MD [facility] documented in this encounter Visit Diagnoses Diagnosis Hip pain - Primary Pain in joint, pelvic region and thigh Osteoarthritis of left hip, unspecified osteoarthritis type Left hip impingement syndrome Impingement syndrome of right shoulder Other affections of shoulder region, not elsewhere classified Hip pain Pain in joint, pelvic region and thigh documented in this encounter Care Teams Director Industrial Relations Relationship Specialty Start Date End Date Po Coats MD PCP - General 08/07/[address] [place] [address] documented as of this encounter
--- OUTSIDE RECORDS SUMMARY | 2022-01-20 08:12 | XMS_ITS | Encounter Summary ---
:1950 Author Organization [employer] Address [address] [place] [address] Care Team Providers Name Role Phone Po Coats MD Primary Care Provider Reason for Visit Procedure/Equipment (Routine) - Closed Specialty Diagnoses / Procedures Referred By Contact Refer red To Contact Diagnoses Trochanteric bursitis of left hip Zac Harden MD Procedures MR Pelvis WO IV Cont [address] [place] [address] Referral ID Status Reason Start Date Expiration Date Visits Requ ested Visits Authorized [id number] Closed 03/08/2021 06/07/2022 1 1 Encounter Details Date Type Department Care Team Description 03/15/2021 Ancillary [facility] MRI Zac Harden, Trochanteric Procedure [address] hip [address] [place] [address] [phone] Social History Tobacco Use Types Packs/Day Years [...] Name Priority Date/Time Associated Diagnosis Comme nts MR PELVIS WO IV STAT 03/15/2021 10:21 Trochanteric bursitis Results for this CONT AM PLATE MAKER ZINC of left hip procedure are i n the results section. documented in this encounter Results MR Pelvis WO IV Cont (03/15/2021 10:21 AM PLATE MAKER ZINC) Anatomical Region Laterality Modality Pelvis, Hip, Lower Extremity Magnetic Re sonance Specimen (Source) Anatomical Collection Method Collection Time Re ceived Time Location / / Volume Laterality 03/15/2021 9:55 AM PLATE MAKER ZINC Impressions 03/15/2021 10:34 AM PLATE MAKER ZINC COMPARISON: ??None. TECHNIQUE: ??Multiplanar, multisequence MRI of the pelvis without IV contrast. FINDINGS: Bony pelvis and proximal femur s are intact without evidence of fracture, avascular necrosis or other significant marrow signal abnormality. Mild degenerative changes at the SI joints. Tendons and musculature about the hips are intac t. Specifically, gluteus minimus and medius tendons intact. No soft tissue mass or fluid collection identified. Internal pelvic contents unremarkable. IMPRESSION: Essentially unremarkable exa m. Procedure Note Leobardo Bernabe MD - 03/15/2021Formatt ing of this note might be different from the original. IMPRESSION COMPARISON: None. TECHNIQUE: Multiplanar, multisequence MR I of the pelvis without IV contrast. FINDINGS: Bony pelvis and proximal femur s are intact without evidence of fracture, avascular necrosis or other significant marrow signal abnormality. Mild degenerative changes at the SI joints. Tendons and musculature about the hips are intact. S pecifically, gluteus minimus and medius tendons intact. No soft tissue mass or fluid collection identified. Internal pelvic contents unremarkable. IMPRESSION: Essentially unremarkable exa m. Zac Harden MD RAD MRI documented in this encounter Visit Diagnoses Diagnosis Trochanteric bursitis of left hip Enthesopathy of hip region documented in this encounter Care Teams Mining Consultant Relationship Specialty Start Date End Date oP Coats MD PCP - General 08/07/12 [address] [place] [address] documented as of this encounter
--- OUTSIDE RECORDS SUMMARY | 2022-01-20 08:12 | XMS_ITS | Encounter Summary ---
:1950 Author Organization [employer] Address [address], [place] [address] Care Team Providers Name Role Phone Po Coats MD Primary Care Provider Reason for Visit Reason Comments Hip Problem Therapies (Routine) - Authorized Specialty Diagnoses / Procedures Referred By Contact Refer red To Contact Diagnoses Gluteal tendinitis, left hip Zac Harden MD [address] [facility] [place] [address] Referral ID Status Reason Start Date Expiration Date Visits V isits Requested Authorized [id number] Authorized 03/15/2021 03/15/2022 12 12 Encounter Details Date Type Department Care Team Description 03/16/2021 Therapy [facility] Anne Sinclair , Hip flexor tendinitis, left (Primary Dx); - Physical Therapy PT Gluteal tendinitis, left hip [address] [address] [place] [address] [place], [place] [phone] Social History Tobacco Use Types Packs/Day Years [...] documented as of this encounter Progress Notes Anne Sinclair, PT - 03/16/2021 9:30 AM CST [facility] Physical Therapy Hip Evaluation/Plan of Care Initial Certification Period: 03/16/2021 to 06/14/21 Referring Provider: aZc Harden Visit Diagnosis: 1. Hip flexor tendinitis, left 2. Gluteal tendinitis, left hip Precautions: None Orders: Evaluate & treat gluteal tendinitis Onset/Referral Date: 03.15.2021/ 405 years ago SUBJECTIVE Reason for Visit: 5-6 chronic pain, wants to try physical therapy, pain goes down into knee when he is sleeping on left side. Walking aggravates it. Feels weakness in left leg. tylenol might help hip pain. 3-4 years ago had a stroke Patient Therapy Goals:decrease hip pain Past Medical History: Past medical history, medication, and allergies were reviewed in the electronic medical record. History pertinent to therapy includes Past Medical History: Diagnosis Date ??? Diverticulitis . Recently Experienced (Red Flags): None Previous Treatment: steroid injections injections Benefited from previous treatment: no Pain details: Current pain intensity level: 4/10 sitting and goes up with standing Pain location: hip area on top of great trochanter close to glute medius Sleep interruptions: Yes: 1 times per night., Pain with transitions in bed. 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 Patient History: Moderate Complexity: 1-2 personal factors and/or comorbidities that impact plan of care: chronicictyand obesity OBJECTIVE Observation: well nourished, alert and oriented male Gait Exam: Antalgic and Trendelenberg Screening: Lumbar screen: Screen: Within Normal Limits Knee screen: Screen: Within Normal Limits ROM: Left: limited by pain external/internal rotation and flexion Right: normal Strength: Left: Hip flexion: 3+/5 pain Hip extension: 5/5 Hip adduction: 4/5 Hip abduction: 3+/5 pain in sidelying Right: Hip flexion: 4/5 Hip extension: 5/5 Hip adduction: 4/5 Hip abduction: 3+/5 no pain Flexibility: Hamstrings: Restricted Hip flexors: Restricted Piriformis: Restricted Joint Mobility: Hypomobile, Pain reproduction Palpation/Tenderness: Left gluteus medius, iliopsoas Special Tests: Left: TESSY: Positive hip findings Pain reproduction FADIR: Positive Hip Scour Test: Negative Log Roll Test: Negative Right: TESSY: WNL FADIR: Negative Hip Scour Test: Negative Proprioception: Single leg stance: Increase pain when standing on left foot Physical Performance Measures: Not tested PT - Musculoskeletal - Hip Hip Outcomes Score - ADL (0-100%, 100% being best): 40 Clinical Examination: Low complexity: Addressed 1-2 elements from body structures and functions (see above), and/or functional limitations as noted below. Today's Intervention/Charges: Physical Therapy Evaluation was completed and the patient was educated on the condition, planned therapy intervention and expectations from treatment. Therapeutic exercise x 15 minutes: Patient was instructed and performed below Home exercise program with varying sets and reps until form adjusted adequately and questions were answered to the best of the PTs ability Access Code: [email or web address] URL: [email or web address] Date: 03/16/2021 Prepared by: Anne Sinclair Exercises Supine Lower Trunk Rotation - 1 x daily - 7 x weekly - 2 sets - 10 reps Supine Gluteus Stretch - 1 x daily - 7 x weekly - 2 sets - 30s hold Standing Hip Flexor Stretch - 1 x daily - 7 x weekly - 2 sets - 30 s hold Clamshell - 1 x daily - 7 x weekly - 2 sets - 20 reps Timed Code Treatment Minutes: 15 Total Treatment Minutes: 40 ASSESSMENT Therapist Impression/Summary: Pt is a 70 y/o male referred to Physical Therapy for eval and treat ofleft glute tendinitis. Pt has difficulty with walking, standing and exercising due to pain, weaknessand stiffness of left hip. Findings are consistent with diagnosis with potential hip flexor muscle involvement as well Skilled PT services are needed to address the above issues. Factors that influenceprogression are compliance and chronicity. Prognosis is good PT Clinical Presentation: Low Complexity: Stable and Uncomplicated Clinical Decision Making: Low Complexity Recommendations/Equipment: No additional recommendations at this time Significant Impairments: Pain, Muscle tightness/decreased flexibility, Muscle weakness, Muscular imbalances, Joint hypomobility Functional Limitations: difficulty sleeping, difficulty with household tasks, difficulty with gait and difficulty with stairs Goals/Functional Outcomes: HEP/Independent Management: Demonstrate independence with HEP and self- management following each treatment session ADL's: Transition sit to stand with normal positioning and weight bearing in 6-8 weeks. Ambulation: Ambulate with normal gait pattern in 6-8 weeks. Ambulate for 30 minutes/6 blocks without increased symptoms in 8-10 weeks. Barriers to Goal Achievement or Learning: compliance Prognosis: Good PLAN Planned Intervention/Education: ADL/Self Management, Aquatic therapy, Dry Needling, Education, Electrical Stimulation, Gait training, Heat/ice, Manual Therapy, Mechanical Traction, Neuromuscular Re-education, Therapeutic Activities, Therapeutic Exercise, Ultrasound Frequency: 1 x week Duration: 90 days Discharge Plan: Patient will be discharged from therapy when goals are achieved or patient plateaus in progress. Informed Consent: Patient and/or family in agreement with the care plan. Plan for Next Treatment: glute/hip flexor stretching, gentle glute strengthening, joint mobs if indicated. Ultrasound?? The blood bank order control clerk is completed by the therapist and the referring clinician's electronic signature certifies medical necessity for the plan above. ING MACHINE TENDER documented in this encounter Plan of Treatment Scheduled Referrals Name Type Priority Associated Diagnoses Order S [facility] Physical Therapy Referral Routine Gluteal tendinitis, left hip Ordered: 03/15/2021 documented as of this encounter Visit Diagnoses Diagnosis Hip flexor tendinitis, left - Primary Gluteal tendinitis, left hip documented in this encounter Care Teams Cell Technician Relationship Specialty Start Date End Date Po Coats MD PCP - General 08/07/12 [address] [place] [address] documented as of this encounter
--- OUTSIDE RECORDS SUMMARY | 2022-01-20 08:12 | XMS_ITS | Encounter Summary ---
:1950 Author Organization [employer] Address [address] [place] [address] Care Team Providers Name Role Phone Po Coats MD Primary Care Provider Reason for Referral Procedure/Equipment (Routine) - Closed Specialty Diagnoses / Procedures Referred By Contact Refer red To Contact Diagnoses Left lumbar radiculopathy Martha Robles MD Procedures MR Lumbar Spine WO IV Cont [address] [facility] [place], [place] [address] Referral ID Status Reason Start Date Expiration Date Visits Requ ested Visits Authorized [id number] Closed 01/30/2021 05/01/2022 1 1 Reason for Visit Reason Comments HIP PAIN Encounter Details Date Type Department Care Team Description 01/30/2021 Office Visit [facility] Martha Robles, Left [facility] radiculopathy (Primary [address] [facility] [address] [facility] [address] [place]) [place] [id number] [phone] (Wo rk) Social History Tobacco Use Types [...] Sign Reading Time Taken Comments Blood Pressure - - Pulse - - Temperature 36.5 ??C (97.7 ??F) 01/30/2021 8:49 AM CDT Respiratory Rate - - Oxygen Saturation - - Inhaled Oxygen Concentration - - Weight 111.1 kg (245 lb) 01/30/2021 8:49 AM CDT Height 175.3 cm (5' 9) 01/30/2021 8:49 AM CDT Body Mass Index 36.18 01/30/2021 8:49 AM CDT documented in this encounter Patient Instructions Patient InstructionsKay Corrales ATC - 01/30/2021 8:[address] Martha Robles MD Sports & Orthopaedic Medicine [facility] Nurse Line: [phone] Please contact Orthopedic Urgent Care line for all requests and questions. Medication Requests: Prescriptions are not filled on Weekends or on Weekdays after 3:00PM For all medication refills: Request a refill using MyChart or contact your Pharmacy To schedule appointments: [phone] Paperwork Requests: FMLA or disability paperwork can be faxed to: [phone] Medical records: [phone] (option 4) [facility] Worker's Compensation Services E-mail Address: [email or web address] Diagnosis: Left Lumbar Radiculopathy Plan: MRI Lumbar Spine Follow up at the clinic after the MRI for results documented in this encounter Progress Notes Martha Robles MD - 01/30/2021 12:00 AM CDT NAME: NICOLETTE RICE CSN: [id number] CLINIC NOTE DATE OF SERVICE: 01/30/2021 : 1950 SUBJECTIVE: This is a 70-year-old male who returns for left-sided hip and leg symptoms. I last saw him 08/30/2020, and recommended a left hip intra-articular fluoroscopically-guided cortisone injection. He says the injection did help, but temporarily. He gets pain which radiates into his left thigh with a burning sensation. We discussed a lumbar MRI depending on his response to the cortisone injection. Given his persistent symptoms, we will move forward with a lumbar spine MRI looking for nerve rootimpingement and radiculopathy. He will return after the study to review results and discuss his options. He may benefit from an epidural steroid injection depending on the results. We will discuss this further in followup. This is a documentation visit only. MARTHA ROBLES MD SDW/AQRegina /[id number] documented in this encounter Plan of Treatment Not on filedocumented as of this encounter Results MR Lumbar Spine WO IV Cont (02/02/2021 9:23 AM CDT) Anatomical Region Laterality Modality Spine, L-Spine, Skeletal Magnetic Resona nce Specimen (Source) Anatomical Collection Method Collection Time Re ceived Time Location / / Volume Laterality 02/02/2021 8:57 AM CDT Impressions 02/02/2021 9:41 AM CDT INDICATION: Left sided radiculopathy, eval for nerve root impingement TECHNIQUE: ??Routine non-contrast MRI of the lumbar spine. COMPARISON: None. FINDINGS: Images mildly degraded by bronson on artifact. This study will be labeled as if there are 5 lumbar-type vertebral bodies. Prominent degenerative changes within the vertebral bodies and endplates. No evidence of an acute compression defo rmity. Conus at L1-L2. Advanced facet arthropathy at L4-L5 and L5-S1 with mild to moderate facet arthropathy throughout the remainder of the lumbar spine. Approxi mately 8 x 4 mm nonspecific focus of T1 and T2 hypointensity within the iliac bone on the left which may be related to underlying sclerosis or a bone island. Prominent degenerative changes superior aspe cts of the sacroiliac joints. Minimal bu lge T11-T12. Axial T12-L1: No evidence of significant centr al stenosis and no definite neural foramina narrowing. L1-L2: No evidence of significant centra l stenosis and no definite neural foramina narrowing. L2-L3: Bulge and a spondylitic ridge, mi ld central stenosis and mild neural foramina narrowing bilaterally. L3-L4: Bulge and a spondylitic ridge, mi ld central stenosis and mild neural foramina narrowing bilaterally. L4-L5: Bulge and spondylitic ridge, mild to moderate central stenosis, hypertrophy of the ligamentum flavum, slight anterolisthesis and mild to moderate neural foramina narrowing proximally and bilaterally. L5-S1: Bulge and spondylitic ridge, no e vidence of significant central stenosis and mild to moderate neural foramina narrowing proximally and bilaterally. IMPRESSION: 1. Mild to moderate central stenosis at L4-L5 with advanced facet arthropathy and mild to moderate neural foramina narrowing proximally. 2. Mild to moderate neural foramina narr owing proximally at L5-S1 with advanced facet arthropathy. Comment: Many lumbar spine MRI findings are so common that while we may have reported their presence, they must be interpreted with caution and in the context of the clinical situation. The frequency of these findings in adults WITHOUT low ba ck pain increases with age and are as follows: disk degeneration (37-96%), disk height loss (24-84%), disk bulge (30- 84%), disk protrusion (29-43%), annular fissure (19-29%), and facet degeneration (4-83%). Frequency percentages adapted from Brinj ikji W, Lujesusmer PH, [place] B, et al. AJNR AM J Neuroradiol 2015:36:811-16. Procedure Note Ngoc Conway MD - 02/02/2021 IMPRESSION INDICATION: Left sided radiculopathy, ev al for nerve root impingement TECHNIQUE: Routine non-contrast MRI of t he lumbar spine. COMPARISON: None. FINDINGS: Images mildly degraded by bronson on artifact. This study will be labeled as if there are 5 lumbar-type vertebral bodies. Prominent degenerative changes within the vertebral bodies and endplates. No evidence of an acute compression deformi ty. Conus at L1-L2. Advanced facet arthropathy at L4-L5 and L5-S1 with mild to moderate facet arthropathy throughout the remainder of the lumbar spine. Approximately 8 x 4 mm nonspecific focus of T1 and T2 hypointen sity within the iliac bone on the left which may be related to underlying sclerosis or a bone island. Prominent degenerative changes superior aspects of the sacroiliac joints. Minimal bulge T11-T12. Axial T12-L1: No evidence of significant centr al stenosis and no definite neural foramina narrowing. L1-L2: No evidence of significant centra l stenosis and no definite neural foramina narrowing. L2-L3: Bulge and a spondylitic ridge, mi ld central stenosis and mild neural foramina narrowing bilaterally. L3-L4: Bulge and a spondylitic ridge, mi ld central stenosis and mild neural foramina narrowing bilaterally. L4-L5: Bulge and spondylitic ridge, mild to moderate central stenosis, hypertrophy of the ligamentum flavum, slight anterolisthesis and mild to moderate neural foramina narrowing proximally and bilaterally. L5-S1: Bulge and spondylitic ridge, no e vidence of significant central stenosis and mild to moderate neural foramina narrowing proximally and bilaterally. IMPRESSION: 1. Mild to moderate central stenosis at L4-L5 with advanced facet arthropathy and mild to moderate neural foramina narrowing proximally. 2. Mild to moderate neural foramina narr owing proximally at L5-S1 with advanced facet arthropathy. Comment: Many lumbar spine MRI findings are so common that while we may have reported their presence, they must be interpreted with caution and in the context of the clinical situation. The frequency of these findings in adults WITHOUT low back pain increases w ith age and are as follows: disk degeneration (37-96%), disk height loss (24-84%), disk bulge (30-84%), disk protrusion (29-43%), annular fissure (19-29%), and facet degeneration (4-83%). Frequency percentages adapted from Isaías odom W, Penelope PH, Saranya B, et al. AJNR AM J Neuroradiol 2015:36:811-16. Martha Robles MD RAD MRI documented in this encounter Visit Diagnoses Diagnosis Left lumbar radiculopathy - Primary Thoracic or lumbosacral neuritis or radi culitis, unspecified Left lumbar radiculopathy Thoracic or lumbosacral neuritis or radi culitis, unspecified documented in this encounter Care Teams Wax Bleacher Relationship Specialty Start Date End Date Po Coats MD PCP - General 08/07/12 [address] [place] [address] documented as of this encounter
--- OUTSIDE RECORDS SUMMARY | 2022-01-20 08:12 | XMS_ITS | Encounter Summary ---
:1950 Author Organization [employer] Address [address] [place] [address] Care Team Providers Name Role Phone Po Coats MD Primary Care Provider Reason for Referral Procedure/Equipment (Routine) - New Request Specialty Diagnoses / Procedures Referred By Contact Refer red To Contact Diagnoses Complex sleep apnea syndrome Jamie Odell APRN, Procedures Positive Airway Pressure - Replacement/Repair [employer] [address] [facility] [address] [place], [place] [address] Referral ID Status Reason Start Date Expiration Date Visits V isits Requested Authorized [id number] New Request 02/07/2021 05/09/2022 1 1 Reason for Visit Reason Comments Follow-up Encounter Details Date Type Department Care Team Description 02/07/2021 Office Visit [facility] Jamie Odell, Co mplex sleep apnea Medicine GLEN MCDANIEL syndrome (Primary Dx) [address] [place] [address] [address] [place], [place] [id number] (Wo rk) Social History Tobacco Use Types [...] Sign Reading Time Taken Comments Blood Pressure 146/73 02/07/2021 9:22 AM CDT Pulse 62 02/07/2021 9:22 AM CDT Temperature - - Respiratory Rate - - Oxygen Saturation 96% 02/07/2021 9:22 AM CDT Inhaled Oxygen Concentration - - Weight 108.9 kg (240 lb) 02/07/2021 9:22 AM CDT Height - - Body Mass Index 35.44 01/30/2021 8:49 AM CDT documented in this encounter Patient Instructions Patient InstructionsPeJamie alberts APRN, CNP - 02/07/2021 9:45 AM CDT Scheduling number is [phone] documented in this encounter Progress Notes Jamie Odell APRN, CNP - 02/07/2021 9:45 AM CDT PULMONARY/SLEEP CLINIC FOLLOW-UP CHIEF COMPLAINT: Obstructive Sleep Apnea HPI: The patient is a 70 y.o. male with a history of complex sleep apnea diagnosed in 2013. He is currently treated with ASV and returns for 5+ year follow-up. He states that he has been doing well with ASV compliance. He denies snoring over the nasal pillows mask through PN. He is in need of an updated prescription for supplies. 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 Occasionally, he smells a burning smell from his humidifier. No insomnia or RLS. No PLMD. He isup to void 1 time a night. He is not rested in the am. He is not feeling sleepy during the day. He is not a willie. He averages 9 hours of sleep at night. No sleepy driving. No am headaches. No parasomnias or teeth grinding. He has no other sleep complaints at this time. He has lost 20 pounds since his previous appointment. No history of CHF. His last ECHO in 2015 showed an EF of 65%. He had a flu shot. INTERVAL MEDICAL HISTORY: CVA 3-4 years ago. ( no residual). ROS: hip injection PHYSICAL EXAM: BP (!) 146/73 Pulse 62 Wt 240 lb (108.9 kg) SpO2 96% BMI 35.44 kg/m?? GEN: alert and oriented x3 ASV Data: Respironics ASV Time frame: 30 days Compliance 100 %, 9 hours ASV settings: Max pressure 25 cm H20, Min EPAP 5 cm H20, Max EPAP 15 cm H20. Min PS 0 cm H20, Max PS20 cm H20. Average 90% pressure: EPAP 8 cmH2O Leak: 0 secs Average AHI 2.3 events/hr IMPRESSION AND PLAN: 1. Complex Sleep Apnea. Download and intermediate manager cpap education reviewed. Pt is doing well with ASV, except for the occasionalburning smell. No changes needed to present settings. He was given an order for a replacement machine, but may not be able to obtain this now, with the recall. He was given the recall information. Follow up in 2-3 months with a replacement machine or 24-30 months otherwise. 2. Hypersomnia. Controlled on ASV. 3. Obesity. All of the patient's questions were answered. He states understanding and agreement with my assessment and plan as above. Total time 24 min, more than half spent in face to face counseling and coordination of care. documented in this encounter Plan of Treatment Not on filedocumented as of this encounter Visit Diagnoses Diagnosis Complex sleep apnea syndrome - Primary Unspecified sleep apnea documented in this encounter Care Teams Migrant Leader Relationship Specialty Start Date End Date Po Coats MD PCP - General 08/07/12 [address] [place] [address] documented as of this encounter
--- OUTSIDE RECORDS SUMMARY | 2022-01-20 08:12 | XMS_ITS | Clinical Summary ---
:1950 [facility] Address [address] [place] [address] Care Team Providers Name Role Phone Po Coats MD Primary Care Provider Source Comments You are receiving this document as you are listed as the primary care provider,follow-up provider, or the patient has been referred to you for consultation.This is in compliance with the Medicare and Medicaid EHR Incentive Program,which states Providers who transition their patient to another setting of careor provider of care or refers their patient to another provider of care shouldprovide summarycare record for each transition of care or referral. [employer] Allergies No known active allergies Medications Medication Sig Dispensed Refills Start Date End Date Status magnesium 250 MG Take 250 mg by 0 12/25/2013 Active mouth daily (every 24 hours). Multiple Take 1 tablet by 0 12/25/2013 Ac tive Vitamins-Minerals mouth daily (MULTIVITAMIN ADULT (every 24 hours). OR) aspirin EC 81 MG Take 1 tablet by 100 tablet 3 01/08/2014 Active enteric coated mouth daily tabletIndications: (every 24 hours). STU BANSAL Apr 16, 2014 7:16 AM Held asa times one week in prep for colonoscopy ANDREW MELENDEZ Jun 11, 2014 12:54 PM taking Probiotic Product Take by mouth. 0 Active (ACIDOPHILUS/GOAT MILK) naproxen sodium Take 220 mg by 0 Active (ANAPROX) 220 MG mouth two times a tablet day with meals. psyllium (KONSYL) 30.9 Take by mouth 0 Active % powder daily. atorvastatin (LIPITOR) Take 1 Tab by 90 Tab 1 03/08/2017 Active 20 MG mouth daily. tabletIndications: Hyperlipidemia, unspecified hyperlipidemia type (HRC) triamterene-hydrochlor 0 07/03/2018 Active othiazide (MAXZIDE-25) 37.5-25 MG tablet amLODIPine (NORVASC) Take 10 mg by 0 10/09/2020 Active 10 MG tablet mouth daily. metFORMIN XR Take 500 mg by 0 11/19/2020 A ctive (GLUCOPHAGE XR) 500 MG mouth daily. 24 hour release tablet clindamycin (CLEOCIN APPLY TO AFFECTED 0 02/03/2021 Active T) 1 % external AREA(S) TOPICALLY solution NEEDED TWO TO THREE TIMES PER WEEK. Active Problems Problem Noted Date Adenoma of large intestine 05/01/2014 Overview: next colonoscopy 04/2019 Complex sleep apnea syndrome 03/31/2014 Overview: Setting: ASV EPAPmin 5 EPAP max 15 PSmin 0 PS max 20 Max Pressure 25 Rate auto Supp[facility] by: [facility] PSG done: 02/08/14 AHI 106 RDI 107 Lowest O2 Sat: 79% Renew 10/04/2015 New 03/31/14 Hyperlipidemia 01/08/2014 Lumbago 09/19/2002 Overview: Pain Low Back Encounters Date Type Specialty Care Team Description 12/01/2021 Home Medical Home Medical T[employer] Equipment W 11/07/2021 Ancillary Radiology PN Po Mcnair, Procedure MD Jane unspecified chr onicity 11/07/2021 Office Visit Sports Po Mosqueda W, MD unspecified chr onicity (Primary Dx) 11/07/2021 Telephone Sports Po Mosqueda Prior Aut horization MD Jane For Imaging 10/31/2021 Notes/Orders Home Medical MD Rl CARLOS (obstructiv e sleep Equipment apnea) (Primary Dx) from Last 3 Months Immunizations Name Administration Dates Next Due Flu Vac Preserv Free (3+yrs) 12/12/2011, 12/08/2010, 010, 01/12/2009, 02/27/2006 Influenza IIV3 (Trivalent) Fluzone 01/09/2017 Highdose, 65+ Yrs (12563) Influenza IIV4 (Quadrivalent) 0.5mL 12/28/2014, 12/25/2013, 01/26/2013 (04182) PCV13 (Prevnar) 05/04/2015 PPSV23 (Pneumovax) 12/12/2011, 02/27/2006 TDAP (BOOSTRIX) 12/25/2013 Td 03/09/2003 Zoster (Zostavax) 09/17/2011 Family History Medical History Relation Name Comments Cancer Father lung Abdominal Aortic Aneurysm Mother Cataract Mother Glaucoma Mother Retinal Detachment Mother Early Brother 1 infant Early Brother 2 infant Cataract Paternal Grandfather Amblyopia/Strabismus Negative Family History Diabetes Negative Family History Macular Degeneration Negative Family History Relation Name Status Comments Father Mother Alive Brother 1 Brother 2 Paternal Grandfather Sister Alive Social History Tobacco Use Types Packs/Day [...] Pulse 62 02/07/2021 9:22 AM CDT Temperature 36.3 ??C (97.3 ??F) 11/07/2021 8:54 AM CDT Respiratory Rate 16 12/26/2016 11:38 AM CDT Oxygen Saturation 96% 02/07/2021 9:22 AM CDT Inhaled Oxygen Concentration - - Weight 106.6 kg (235 lb) 11/07/2021 8:54 AM CDT Height 175.3 cm (5' 9) 11/07/2021 8:54 AM CDT Body Mass Index 34.7 11/07/2021 8:54 AM CDT Plan of Treatment Health Maintenance Due Date Last Done Comments Medicare Annual Wellness 1950 Visit COVID-19 Vaccine (#1) 03/01/1951 Pneumococcal 65+ Yrs (3) 12/11/2016 05/04/2015, 12/12/2011, 02/27/2006 Colonoscopy 04/16/2019 04/16/2014 Cholesterol 09/05/2021 09/05/2016, 05/04/2015, 03/15/2014, Additional history exists Influenza (#1) 2021 01/18/2021, 12/25/2019, 01/26/2019, Additional history exists DTaP/Tdap/Td (2 - Tdap) 12/26/2023 12/25/2013, 03/09/2003 Hep C Screening (Preventive Completed 09/05/2016 Services) Zoster/Shingles Completed 10/06/2019, 04/24/2019, 09/17/2011 HepA Aged Out No longer eligib le based on patient 's age to complete this topic HepB Aged Out No longer eligib le based on patient 's age to complete this topic Hib Aged Out No longer eligib le based on patient 's age to complete this topic IPV (Polio) Aged Out No longer eligib le based on patient 's age to complete this topic MCV4 Aged Out No longer eligib le based on patient 's age to complete this topic Procedures Procedure Name Priority Date/Time Associated Diagnosis Comme nts XR SHOULDER LT 2+ Routine 11/07/2021 9:12 AM Left shoulder lawanda n, Results for this VIEWS CDT unspecified procedure are i n chronicity the results section. from Last 3 Months Results XR Shoulder Lt 2+ Views (11/07/2021 9:12 AM CDT) Anatomical Region Laterality Modality Upper Extremity, Shoulder Digital Radiog inge Specimen (Source) Anatomical Collection Method Collection Time Re ceived Time Location / / Volume Laterality 11/07/2021 9:03 AM CDT Impressions 11/07/2021 10:42 AM CDT COMPARISON: ??01/16/2018 FINDINGS: ??4 views obtained. No acute f racture. The humeral head is anatomically-aligned with the glenoid. No significant glenohumeral osteoarthritic degenerative narrowing. Ovoid, 0.5 cm, faint, corti cated calcification projecting over the superior aspect of the glenohumeral joint on Grashey view, most compatible with an osteocartilaginous body. Advanced osteoarthritic degenerative changes of the ac romioclavicular joint. Mild osseous spur ring in the region of the humeral greater tuberosity, similar compared to prior examination. Mild distal acromial undersurface spurring. The visualized portion of the left lung is clear. Procedure Note Caesar Hyatt MD - 11/07/2021Format ting of this note might be different from the original. IMPRESSION COMPARISON: 01/16/2018 FINDINGS: 4 views obtained. No acute fra cture. The humeral head is anatomically- aligned with the glenoid. No significant glenohumeral osteoarthritic degenerative narrowing. Ovoid, 0.5 cm, faint, corticated calcification projecting over the superi or aspect of the glenohumeral joint on Grashey view, most compatible with an osteocartilaginous body. Advanced osteoarthritic degenerative changes of the acromioclavicular joint. Mild osseous spurring in the mateo on of the humeral greater tuberosity, similar compared to prior examination. Mild distal acromial undersurface spurring. The visualized portion of the left lung is clear. Po Mcnair MD RAD GD from Last 3 Months Insurance Payer Benefit Plan / Subscriber ID Effective Dates Phone Addre ss Type Group BCBS BCBS MEDICARE [id number] 2021-Present [phone] Medicare ADVANTAGE Randolph Raul Lori Personal/Family Self [phone] (Home) [address] [facility] [phone] [place], [place] (Work) [id number] Randolph Raul Lori Personal/Family Self [phone] ([address]) [address] [phone] [place], [place] (Work) [id number] Advance Directives Latest Code Status on File Code Status Date Activated Date Inactivated Comments Full Code 10/17/2012 9:20 AM 10/17/2012 3:38 PM Care Teams Advice Line Rn Relationship Specialty Start Date End Date Po Coats MD PCP - General 08/07/12 [address] [place] [address]
--- OUTSIDE RECORDS SUMMARY | 2022-01-20 08:12 | XMS_ITS | Encounter Summary ---
:1950 Author Organization [employer] Address [address] [place] [address] Care Team Providers Name Role Phone Po Coats MD Primary Care Provider Reason for Visit Procedure/Equipment (Routine) - Closed Specialty Diagnoses / Procedures Referred By Contact Refer red To Contact Diagnoses Left lumbar radiculopathy Pierre Robles MD Procedures MR Lumbar Spine WO IV Cont [address] [facility], [place] [address] Referral ID Status Reason Start Date Expiration Date Visits Requ ested Visits Authorized [id number] Closed 01/30/2021 05/01/2022 1 1 Encounter Details Date Type Department Care Team Description 02/02/2021 Ancillary [place] Pierre Bateman, Left lumb ar Procedure [place] [id number] radiculopathy Radiology MRI [address] [facility] [address] [place], [place] [address] [address] [place], [place] [phone] (Work) [phone] Social History Tobacco Use Types Packs/Day Years [...] Priority Date/Time Associated Diagnosis Comme nts MR LUMBAR SPINE WO STAT 02/02/2021 9:23 AM Left lumbar Res ults for this IV CONT CDT radiculopathy procedure are in the results section. documented in this encounter Results MR Lumbar Spine WO [...] Frequency percentages adapted from Isaías odom W, [place] PH, [place] B, et al. AJNR AM J Neuroradiol 2015:36:811-16. Pierre Robles MD RAD MRI documented in this encounter Visit Diagnoses Diagnosis Left lumbar radiculopathy Thoracic or lumbosacral neuritis or radi culitis, unspecified documented in this encounter Care Teams Senior Clinical Research Associate Relationship Specialty Start Date End Date Po Coats MD PCP - General 08/07/12 [address] [address] [place] [address] documented as of this encounter
--- OUTSIDE RECORDS SUMMARY | 2022-01-20 08:12 | XMS_ITS | Encounter Summary ---
:1950 Author Organization [facility] Address [address] [place] [address] Care Team Providers Name Role Phone Po Coats MD Primary Care Provider Reason for Referral (Routine) - New Request Specialty Diagnoses / Procedures Referred By Contact Refer red To Contact Diagnoses Impingement syndrome of right shoulder Gabriele Roper MD Procedures Triamcinolone Acet Inj Nos: (per 10 mg) [address] [facility] [place], [place] [address] Referral ID Status Reason Start Date Expiration Date Visits V isits Requested Authorized [id number] New Request 12/27/2020 03/28/2022 1 1 Reason for Visit Reason Comments SHOULDER PAIN pain started up about 1 eliud h ago Encounter Details Date Type Department Care Team Description 12/21/2020 Office Visit [facility] Gabriele Roper MD Impingement syndrome Urgent Care [address] [facility] of right shoulder [address] [place], [place] (Primary Dx) [place], [place] [phone] (Wo rk) Social History Tobacco Use Types [...] Pressure - - Pulse - - Temperature 36.1 ??C (96.9 ??F) 12/21/2020 8:13 AM CDT Respiratory Rate - - Oxygen Saturation - - Inhaled Oxygen Concentration - - Weight - - Height - - Body Mass Index - - documented in this encounter Progress Notes Gabriele Roper MD - 12/21/2020 12:00 AM CDT NAME: NICOLETTE RICE CSN: [id number] CLINIC NOTE DATE OF SERVICE: 12/21/2020 : 1950 The patient is a 70-year-old here for evaluation for followup for his right shoulder pain that has been persisting despite conservative management. Back in August 2020, he had a subacromial injection withDr. Robles, and back on 01/05/2019, I did a similar injection. He had been doing very well. Now, the pain is back and it feels different, and now it is on the upper part of his shoulder, and on examination today, it is over the AC joint as the main area of pain and discomfort. He still has some impingement syndromes as well, but most of the discomfort today seems over the AC joint, so at this time, discussed with him about doing an AC joint injection. If that helps, no followup needed. If any pain would persist, would do a subacromial injection. He wanted to proceed. So, 1 mL of 40 mg Kenalog mixed with 3 mL of 1% lidocaine were used and injected into the right AC joint. No complications occurred. Follow up on an as-needed basis. GABRIELE ROPER MD RTAnette/AQS /[id number] documented in this encounter Plan of Treatment Not on filedocumented as of this encounter Visit Diagnoses Diagnosis Impingement syndrome of right shoulder - Primary Other affections of shoulder region, not elsewhere classified documented in this encounter Care Teams Complaint Investigator Relationship Specialty Start Date End Date Po Coats MD PCP - General 08/07/[address] [place] [address] documented as of this encounter
--- OUTSIDE RECORDS SUMMARY | 2022-01-20 08:12 | XMS_ITS | Encounter Summary ---
:1950 Author Organization [facility] Address [address] [place] [address] Care Team Providers Name Role Phone Po Coats MD Primary Care Provider Reason for Referral Procedure/Equipment (Routine) - Closed Specialty Diagnoses / Procedures Referred By Contact Refer red To Contact Diagnoses Trochanteric bursitis of left hip Gabriele Roper MD Procedures MR Pelvis WO IV Cont [address] [facility] [place] [address] Referral ID Status Reason Start Date Expiration Date Visits Requ ested Visits Authorized [id number] Closed 03/08/2021 06/07/2022 1 1 UREMENT SPECIALIST Reason for Visit Reason Comments Follow-up left hip Encounter Details Date Type Department Care Team Description 03/08/2021 Office Visit [facility] Gabriele Roper MD Left lumbar radiculopathy (Primary Dx); Urgent Care [address] [facility] Trochanteric bursitis of left hip [address] [place] [phone] Social History Tobacco Use Types Packs/Day Years [...] Pressure - - Pulse - - Temperature 36 ??C (96.8 ??F) 03/08/2021 8:15 AM MEASUREMENT SPECIALIST Respiratory Rate - - Oxygen Saturation - - Inhaled Oxygen Concentration - - Weight - - Height - - Body Mass Index - - documented in this encounter Patient Instructions Patient InstructionsTPhan alston ATC - 03/08/2021 8:[address] Gabriele Roper MD Sports & Orthopaedic Medicine [facility], [facility] Nurse Line: [phone] Please contact Orthopedic Urgent Care line for all requests and questions. Medication Requests: Prescriptions are not filled on Weekends or on Weekdays after 3:00PM For all medication refills: Request a refill using MyChart or contact your Pharmacy To schedule appointments: [phone] Paperwork Requests: FMLA or disability paperwork can be faxed to: [phone] Medical records: [phone] (option 4) [employer]er's [employer] Services E-mail Address: [email or web address] Schedule MRI Follow up here in [facility] for results about 1-1.5 hours after test UREMENT SPECIALIST documented in this encounter Progress Notes Gabriele Roper MD - 03/08/2021 12:00 AM CST NAME: NICOLETTE RICE CSN: [id number] CLINIC NOTE DATE OF SERVICE: 03/08/2021 : 1950 A 70-year-old here for evaluation for left hip pain that has been persisting despite conservative management. Wanted to have further evaluation. He has had cortisone shot of the bursa; it helped somewhat, but still the pain is persisting, wanted to have further evaluation and treatment options. Given the fact that the pain has been persisting and it hurts mainly in his groin area, he wanted tohave further evaluation, so an MRI of the pelvis was ordered, and follow up thereafter. GABRIELE ROPER MD RTJ/AQS /[id number] UREMENT SPECIALIST documented in this encounter Plan of Treatment Not on filedocumented as of this encounter Results MR Pelvis WO IV Cont (03/15/2021 10:21 AM MEASUREMENT SPECIALIST) Anatomical Region Laterality Modality Pelvis, Hip, Lower Extremity Magnetic Re sonance Specimen (Source) Anatomical Collection Method Collection Time Re ceived Time Location / / Volume Laterality 03/15/2021 9:55 AM MEASUREMENT SPECIALIST Impressions 03/15/2021 10:34 AM MEASUREMENT SPECIALIST COMPARISON: ??None. TECHNIQUE: ??Multiplanar, multisequence MRI of [...] contents unremarkable. IMPRESSION: Essentially unremarkable exa m. Gabriele Roper MD RAD MRI documented in this encounter Visit Diagnoses Diagnosis Left lumbar radiculopathy - Primary Thoracic or lumbosacral neuritis or radi culitis, unspecified Trochanteric bursitis of left hip Enthesopathy of hip region Trochanteric bursitis of left hip Enthesopathy of hip region documented in this encounter Care Teams Retarder Operator Relationship Specialty Start Date End Date Po Coats MD PCP - General 08/07/[address] [place] [address] documented as of this encounter
--- OUTSIDE RECORDS SUMMARY | 2022-01-20 08:12 | XMS_ITS | Encounter Summary ---
:1950 Author [facility] Address [address] [place] [address] Care Team Providers Name Role Phone Po Coats MD Primary Care Provider Encounter Details Date Type Department Care Team Description 02/07/2021 Orders Only Initial [facility] AL[facility] COSME MD [place], [place] [address] Interface provider [phone] [place] [address] Social History Tobacco Use Types Packs/Day Years [...] Name Priority Date/Time Associated Diagnosis Comme nts PULMONARY TEST [place] 02/07/2021 Results fo r this procedure are in the resu lts section. documented in this encounter Results PULMONARY TEST AZ (02/07/2021) Narrative This result has an attachment that is no t available. Interface Provider DUMMY/OTHER/AR documented in this encounter Visit Diagnoses Not on filedocumented in this encounter Care Teams Live Games Dealer Relationship Specialty Start Date End Date Po Coats MD PCP - General 08/07/12 [address] [place] [address] documented as of this encounter
--- OUTSIDE RECORDS SUMMARY | 2022-01-20 08:12 | XMS_ITS | Encounter Summary ---
:1950 Author Organization [facility] Address [address] [address] Care Team Providers Name Role Phone Po Coats MD Primary Care Provider Reason for Visit Procedure/Equipment (Routine) - Incomplete Specialty Diagnoses / Procedures Referred By Contact Refer red To Contact Diagnoses Left shoulder pain, unspecified chronicity Po Mcnair MD Procedures XR Shoulder Lt 2+ Views [address] [place] [address] Referral ID Status Reason Start Date Expiration Date Visits V isits Requested Authorized [id number] Incomplete 11/07/2021 02/06/2023 1 1 Encounter Details Date Type Department Care Team Description 11/07/2021 [place] Left should er pain, Procedure [place] [address] MD Jane unspecified Radiology [address] chronicity [address] [place], [place] [address] [address] [place], [place] [phone] [address] (Work) [phone] Social History Tobacco Use Types Packs/Day Years [...] are i n chronicity the results section. documented in this encounter Results XR Shoulder Lt 2+ Views (11/07/2021 [...] is clear. Po Mcnair MD RAD GD documented in this encounter Visit Diagnoses Diagnosis Left shoulder pain, unspecified chronici ty documented in this encounter Care Teams Cloth Grader Relationship Specialty Start Date End Date Po Coats MD PCP - General 08/07/[address] [place] [address] documented as of this encounter
--- OUTSIDE RECORDS SUMMARY | 2022-01-20 08:12 | XMS_ITS | Encounter Summary ---
:1950 Author Organization [employer] Address [address] [place] [address] Care Team Providers Name Role Phone Po Coats MD Primary Care Provider Reason for Referral Procedure/Equipment (Routine) - Authorized Specialty Diagnoses / Procedures Referred By Contact Refer red To Contact Diagnoses Left shoulder pain, unspecified chronicity Po Mcnair MD [place] [address] [place] [address] Referral ID Status Reason Start Date Expiration Date Visits V isits Requested Authorized [id number] Authorized 11/08/2021 05/08/2022 1 1 Procedure/Equipment (Routine) - Incomplete Specialty Diagnoses / Procedures Referred By Contact Refer red To Contact Diagnoses Left shoulder pain, unspecified chronicity Po Mcnair MD Procedures XR Shoulder Lt 2+ Views [address] [place] [address] Referral ID Status Reason Start Date Expiration Date Visits V isits Requested Authorized [id number] Incomplete 11/07/2021 02/06/2023 1 1 Reason for Visit Reason Comments Shoulder Pain or injury JOAN: Painting a railing and fell off 5 gallon bucket. Unsure if landed on L ShoulderDOI: Encounter Details Date Type Department Care Team Description 11/07/2021 Office Visit [facility], Left s houlder pain, Orthopedic Urgent unspecified Care [address] chronicity (Primary [address] [place], [place] Dx) [place] [address] [phone] Social History Tobacco Use Types Packs/Day Years [...] Pressure - - Pulse - - Temperature 36.3 ??C (97.3 ??F) 11/07/2021 8:54 AM CDT Respiratory Rate - - Oxygen Saturation - - Inhaled Oxygen Concentration - - Weight 106.6 kg (235 lb) 11/07/2021 8:54 AM CDT Height 175.3 cm (5' 9) 11/07/2021 8:54 AM CDT Body Mass Index 34.7 11/07/2021 8:54 AM CDT documented in this encounter Patient Instructions Patient InstructionsChan Adrian, ATC - 11/07/2021 8:40 AM CDT Thank you for choosing [facility] for your health care visit today. Po Mcnair MD Imaging Detective Sergeant: [facility] [place] - [address] [place] [address]. Call [phone] to schedule. Medication Requests: Prescriptions are filled on Weekdays before 3:00PM For all medication refills: Request a refill using MyChart or contact your Pharmacy Paperwork Requests: FMLA or disability paperwork can be faxed to: [phone] Please allow 7-10 business days for completion of all paperwork. [employer] Worker's Compensation Services: E-mail Address: [email or web address] What is Know Your Cost? Know Your Cost is a service for patients and patient/members to call and receive personalized cost information and estimates across our care group. The phone number is (COST) Saturday - Saturday 8 AM to 5 PM To request copies of your medical records, call: [phone] (option 4) Diagnosis: Left shoulder injury, suspected rotator cuff tear Plan: Follow Up: After MRI results. You may walk-in after your MRI scan, or schedule an appointment for follow-up. Imaging: - Your insurance requires a Prior Authorization prior to scheduling your exam. We will start the process of submitting this request to your insurance company after your visit (or on the next Business Day). Once approved by your insurance, we will call you to schedule your appointment. Please contact your insurance company with any questions or concerns regarding the need for a Prior Authorization. - Return to clinic immediately following your imaging exam to obtain results. Reports are generally read within 60 minutes of exam completion. If you have any questions regarding your visit or next steps, please contact us at [phone]. documented in this encounter Progress Notes Po Mcnair MD - 11/07/2021 12:00 AM CDT NAME: NICOLETTE RICE CSN: [id number] CLINIC NOTE DATE OF SERVICE: 11/07/2021 : 1950 Nicolette Rice is a pleasant 71-year-old male, who presents today for evaluation of a left shoulder injury that occurred on 11/01/2021. He was sitting on a 5 gallon bucket and the bucket fell over and he either broke his fall with his outstretched left arm or fell directly onto the left shoulder and since that time has had significant pain. He has been unable to forward flex or abduct his shoulder away from his body. He had no significant pain prior to this injury. He has had several injections in the past for this left shoulder, which have provided temporary relief. However, he notes that he had no significant pain leading up to this most recent fall. He describes his pain is 10/10 at this time. He is extremely limited with all range of motion and movement with the shoulder. He had a prior right rotator cuff repair performed 10 or 15 years ago. REVIEW OF SYSTEMS: Negative for fever, rash, numbness, and tingling. PAST MEDICAL HISTORY: Reviewed in [facility]. SOCIAL HISTORY: He is retired. He is right-hand dominant. MEDICATIONS: Per [facility]. ALLERGIES: PER [facility]. VITAL SIGNS: Height 5 feet 9 inches, weight 235 pounds. Temperature 97.3 degrees. MUSCULOSKELETAL: On examination of the left shoulder, no soft tissue swelling, redness, or warmth present. He has tenderness to palpation over the subscapularis tendon as well as over the long head biceps tendon. No significant tenderness over the AC joint or greater tuberosity area of the shoulder. He is limited in active forward flexion and abduction to 30 degrees due to pain. Passively, he does not allow me to push him beyond this available range of motion. He has internal rotation to his belt line. I am unable to perform supraspinatus strength testing due to his limited range of motion. He has 3/5 strength with resisted infraspinatus strength testing and 4/5 subscapularis strength testing, which reproduces pain. IMAGING: Left shoulder films were obtained and personally reviewed by me, which show significant narrowing of the subacromial space and AC joint spurring, which narrows the subacromial interval. There is also a rounded calcification located superior to the glenohumeral joint, which appears chronic in nature as well as increased prominence of the rotator cuff insertion on the greater tuberosity. Please see [facility] for official Radiology review. ASSESSMENT/PLAN: Left shoulder injury, suspected full-thickness supraspinatus/infraspinatus tear. Wereviewed his physical exam and x-rays today. Based on his acute injury and significant limitations with any abduction and forward flexion, we will proceed with an MRI of the left shoulder to evaluate fo r possible full-thickness rotator cuff tear. We will see him back following the MRI to discuss options including physical therapy, injection, or surgical referral. He is in agreement with this plan andwill follow up after the MRI to discuss further treatment options. MD ABUNDIO LUIS/BETTE /[id number] documented in this encounter Plan of Treatment Scheduled Orders Name Type Priority Associated Diagnoses Order S chedule MR Shoulder Lt WO IV Imaging New STAT Left shoulder pain, Expected: 11/07/2021 Cont unspecified chronicity (Appr oximate), Expires: 2022 documented as of this encounter Results XR Shoulder Lt 2+ [...] Diagnosis Left shoulder pain, unspecified chronici ty - Primary Left shoulder pain, unspecified chronici ty documented in this encounter Care Teams Precision Optics Technician Relationship Specialty Start Date End Date Po Coats MD PCP - General 08/07/12 [address] [place] [address] documented as of this encounter
--- OUTSIDE RECORDS SUMMARY | 2022-01-20 08:12 | XMS_ITS | Encounter Summary ---
:1950 Author Organization [email or web address] Address [address], [place] [address] Care Team Providers Name Role Phone Po Coats MD Primary Care Provider Reason for Referral (Routine) - Closed Specialty Diagnoses / Procedures Referred By Contact Refer red To Contact Diagnoses Plantar fasciitis, left Jerod Bird DPM Procedures Dexamethasone Sodium Phos (per 1 mg) [address] [place] [address] Referral ID Status Reason Start Date Expiration Date Visits Requ ested Visits Authorized Closed 01/06/2020 04/06/2021 1 1 (Routine) - Closed Specialty Diagnoses / Procedures Referred By Contact Refer red To Contact Diagnoses Plantar fasciitis, left Jerod Bird DPM Procedures Triamcinolone Acet Inj Nos: (per 10 mg) [id number] [address] [place] [address] Referral ID Status Reason Start Date Expiration Date Visits Requ ested Visits Authorized Closed 01/06/2020 04/06/2021 1 1 Reason for Visit Reason Comments Foot Pain Left foot pain Encounter Details Date Type Department Care Team Description 01/06/2020 Office Visit Jerod Marcano, Pain of left heel (Primary Dx); [place] [address] DPM Plantar fasciitis, left Podiatric [facility] [address] [address] [place] [id number] [phone] Social History Tobacco Use Types Packs/Day Years [...] documented as of this encounter Progress Notes Jerod Bird, DPM - 01/06/2020 2:15 PM CDT DATE OF VISIT: 01/06/2020 SUBJECTIVE: Raul Dickson is a pleasant 69 y.o. male who presents to clinic today for evaluation of left heel pain. This has been bothering him for approximately 1- 1/2 weeks. His pain is a level 8/10. He does havepain which is worse in the morning when getting up out of bed. He does have orthotics which he received in 2016. He continues to use these. He does not recall any specific injury or trauma. Chart review indicates that I did see him in February 2016 and did give him an injection into the left heel.. Adverse Drug Reactions: No Known Allergies Outpatient Medications Prior to Visit Medication Sig Note ??? aspirin EC 81 MG enteric coated tablet Take 1 tablet by mouth daily (every 24 hours). ??? atorvastatin (LIPITOR) 20 MG tablet Take 1 Tab by mouth daily. ??? magnesium 250 MG Take 250 mg by mouth daily (every 24 hours). ??? Multiple Vitamins-Minerals (MULTIVITAMIN ADULT OR) Take 1 tablet by mouth daily (every 24 hours). ??? naproxen sodium (ANAPROX) 220 MG tablet Take 220 mg by mouth two times a day with meals. ??? Probiotic Product (ACIDOPHILUS/GOAT MILK) Take by mouth. 05/19/2016: Received from: [facility] ??? psyllium (KONSYL) 30.9 % powder Take by mouth daily. ??? triamterene-hydrochlorothiazide (MAXZIDE-25) 37.5-25 MG tablet No facility-administered medications prior to visit. Review of Systems: Negative for fever, rash or shortness of breath. Past Medical History: Past Medical History: Diagnosis Date ??? Diverticulitis Patient Active Problem List Diagnosis Date Noted ??? 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 Hyperlipidemia 01/08/2014 ??? Lumbago 09/19/2002 Overview Note: Pain Low Back Past Surgical History: Procedure Laterality Date ??? BLADDER SURGERY 2012 ??? COLON SURGERY 05/2016 perforated diverticulitis ??? SHOULDER SURGERY Social History: Patient is retired EXAM: General appearance: Patient is alert and fully cooperative with history & exam. No sign of distress is noted during the visit. HEENT: Hearing is intact to spoken word. No evidence of visual impairment that would impact self care or ambulation. Respiratory: Breathing is regular and unlabored while sitting. OBJECTIVE: 69 y.o. year old male who appears their stated age. Alert and oriented and in no acute distress. Walks without a limp and appears to be in general good health. DP and PT pulses are palpable. Hair growth is present on the digits and capillary filling time is less than two seconds. Sensation is intact. There is no weakness with muscle testing of the foot, ankle or lower leg. No pain or restriction with subtalar joint or ankle joint range of motion. In stance loss of longitudinal arch is evident. There are no paresthesias over the tarsal tunnel or with compression of the dorsal nerves. The patient has pain with palpation of the medial process of the plantar weightbearing surface of the left calcaneus. There is also pain over the distal fascial band but no pain with goxm-lz-rjil compression of the heel. No pain with stressing of the anterior or posterior tibial tendons. No pain over the Achilles tendon or sinus tarsi areas. No discomfort over the calcaneal nerve branch. No enlargements are palpated. There is no pain over the peroneal tendons. ASSESSMENT: ICD-10-CM 1. Pain of left heel M79.672 2. Plantar fasciitis, left M72.2 Injection; 1 Tendon Sheath/Ligament Triamcinolone Acet Inj Nos: (per 10 mg) Dexamethasone Sodium Phos (per 1 mg) PLAN: Treatment options were discussed with the patient. I discussed the condition in great detail. I discussed with the patient that the examination is consistent for plantar fasciitis. He does have pain both at the medial process and over the distal fascial band. I discussed with the patient that there is some difference in treatment however the insert will resolve both areas. I will have the patient stay with the custom orthotic. I will have him do icing. I did dispense stretching exercises. I discussed with the patient that I could consider an injection. He does have pain that is over the distal fascial band which would not be resolved with the injection. If this pain persists than I would have to do physical therapy which I could set up over the phone. He does verbalize understanding. Procedure: I discussed an injection into the heel. The patient consents to the procedure. The foot was prepped and the left heel was injected with a medial approach. The heel was injected with 1 ml of 2% Lidocaine followed by (2 mg) 1/2 ml of Dexamethasone and (20 mg) 1/2 ml of Kenalog. I discussed not exercising for 24 hours. I discussed possible cortisone flare. The patient can ice the area if there is pain. All questions answered. The patient was discharged ambulatory and in stable condition. Orders Placed This Encounter Procedures ??? Injection; 1 Tendon Sheath/Ligament ??? Triamcinolone Acet Inj Nos: (per 10 mg) ??? Dexamethasone Sodium Phos (per 1 mg) No orders of the defined types were placed in this encounter. (This note was created using voice recognition software and may contain some asic design engineer errors) documented in this encounter Plan of Treatment Not on filedocumented as of this encounter Visit Diagnoses Diagnosis Pain of left heel - Primary Pain in limb Plantar fasciitis, left documented in this encounter Care Teams Net Developer Software Engineer C Relationship Specialty Start Date End Date Po Coats MD PCP - General 08/07/12 [address] [place] [address] documented as of this encounter
--- OUTSIDE RECORDS SUMMARY | 2022-01-20 08:12 | XMS_ITS | Encounter Summary ---
:1950 Author Organization [employer] Address [address] [place] [address] Care Team Providers Name Role Phone Po Coats MD Primary Care Provider Reason for Visit Reason Comments Eye Exam Encounter Details Date Type Department Care Team Description 05/10/2020 Office Visit Gunnar Vaughn, Examinatio n of eyes and vision (Primary Dx); Ophthalmology OD Hyperopia with astigmatism and presbyopi a, bilateral; [id number] [facility] [place] [address] [address] [phone] [place] [address] (Wo rk) Social History Tobacco Use Types [...] documented as of this encounter Progress Notes Gunnar Tena, OD - 05/10/2020 8:00 AM CST General medical assessment: Patient is alert. Basically healthy. Assessment: ICD-10-CM 1. Examination of eyes and vision Z01.00 Refractive State, Determination Of - Bilateral 2. Hyperopia with astigmatism and presbyopia, bilateral H52.03 Refractive State, Determination Of - Bilateral H52.203 H52.4 3. Bilateral incipient cataracts H26.9 Plan: 1. Discussed findings with patient. 2. Okay to stay with OTC readers. 3. Return to clinic in 1-2 years or as needed. COORDINATOR documented in this encounter Plan of Treatment Not on filedocumented as of this encounter Visit Diagnoses Diagnosis Examination of eyes and vision - Primary Hyperopia with astigmatism and presbyopi a, bilateral Bilateral incipient cataracts Unspecified cataract documented in this encounter Care Teams [employer] Registrar Relationship Specialty Start Date End Date Po Coats MD PCP - General 08/07/12 [address] [address] [place] [address] documented as of this encounter
--- OUTSIDE RECORDS SUMMARY | 2022-01-20 08:12 | XMS_ITS | Encounter Summary ---
:1950 Author Organization [employer] Address [address] [place] [address] Care Team Providers Name Role Phone Po Coats MD Primary Care Provider Reason for Referral (Routine) - New Request Specialty Diagnoses / Procedures Referred By Contact Refer red To Contact Diagnoses Left lumbar radiculopathy Gabriele Roper MD Procedures Triamcinolone Acet Inj Nos: (per 10 mg) [address] [facility] [place], [place] [address] Referral ID Status Reason Start Date Expiration Date Visits V isits Requested Authorized [id number] New Request 02/17/2021 05/19/2022 1 1 Reason for Visit Reason Comments MRI Results lumbar Follow-up Encounter Details Date Type Department Care Team Description 02/02/2021 Office Visit [facility] Gabriele Roper MD Left lumbar Urgent Care [address] [facility] radiculopathy (Primary [address] [place], [place]x) [place] [id number] [phone] Social History Tobacco Use Types Packs/Day Years [...] Pressure - - Pulse - - Temperature 35.9 ??C (96.7 ??F) 02/02/2021 9:58 AM CDT Respiratory Rate - - Oxygen Saturation - - Inhaled Oxygen Concentration - - Weight - - Height - - Body Mass Index - - documented in this encounter Patient Instructions Patient InstructionsThCait romero, ATC - 02/02/2021 9:[address] Gabriele Roper MD Sports & Orthopaedic Medicine [facility], [place] [facility] Nurse Line: [phone] Please contact Orthopedic Urgent Care line for all requests and questions. Medication Requests: Prescriptions are not filled on Weekends or on Weekdays after 3:00PM For all medication refills: Request a refill using [employer] or contact your Pharmacy To schedule appointments: [phone] Paperwork Requests: FMLA or disability paperwork can be faxed to: [phone] Medical records: [phone] (option 4) [employer] Worker's [employer] Services E-mail Address: [email or web address] Left hip pain/trochanteric bursitis - The left hip was injected with Kenalog-40 and lidocaine. Avoid Strenuous Activity for the remainder of the day and avoid activities that cause pain for one to two weeks following the injection. Signs and Symptoms to watch for: If you have any redness, warmth or increasing pain at the site of the injection or develop a fever, please call [phone] - You've just had a steroid (cortisone) injection: [...] administered. documented in this encounter Progress Notes Gabriele Roper MD - 02/02/2021 12:00 AM CDT NAME: NICOLETTE RICE CSN: [id number] CLINIC NOTE DATE OF SERVICE: 02/02/2021 : 1950 Patient is a 70-year-old here for evaluation for MRI results of his lumbar spine. It shows that he has a small disk herniation at L5-S1, but not likely causing a large part of his symptoms. On exam, most of his pain was over the bursa in the trochanteric area. I suggested at this time, since that is most of his pain and why he cannot walk, suggested we do a trial of a cortisone injection and see if that helps. If it does, no followup needed. If any pain remains, follow up for further imaging and evaluation. He said he wanted proceed, so 1 mL of 40 mg Kenalog with 5 mL of 1% lidocaine was injected in the left trochanteric bursa. No complications occurred. Follow up as mentioned above. GABRIELE ROPER MD RTJ/AQS /[id number] documented in this encounter Plan of Treatment Not on filedocumented as of this encounter Visit Diagnoses Diagnosis Left lumbar radiculopathy - Primary Thoracic or lumbosacral neuritis or radi culitis, unspecified documented in this encounter Care Teams Associate Quality Engineer Relationship Specialty Start Date End Date Po Coats MD PCP - General 08/07/12 [address] [place] [address] documented as of this encounter
--- OUTSIDE RECORDS SUMMARY | 2022-01-20 08:12 | XMS_ITS | Encounter Summary ---
:1950 Author Organization [employer] Address [address] [place] [address] Care Team Providers Name Role Phone Po Coats MD Primary Care Provider Reason for Referral Therapies (Routine) - Authorized Specialty Diagnoses / Procedures Referred By Contact Refer red To Contact Diagnoses Gluteal tendinitis, left hip Gabriele Roper MD [address] [facility] [place] [address] Referral ID Status Reason Start Date Expiration Date Visits V isits Requested Authorized [id number] Authorized 03/15/2021 03/15/2022 12 12 Scheduling Instructions Your provider has recommended an appoint ment with [facility]. You may call [phone] to schedule your appoi ntment. We suggest you call your health insurance company about your coverage an d benefits for this appointment. OR SALES REPRESENTATIVE Reason for Visit Reason Comments MRI Results pelvis Encounter Details Date Type Department Care Team Description 03/15/2021 Office Visit [facility] Orthopedic Gabriele Roper MD Gluteal tendinitis, Urgent Care [address] [place] [address] left hip (Primary Dx) [address] [facility] [place] [address] [phone] (Wo rk) Social History Tobacco Use Types [...] as of this encounter Patient Instructions Patient InstructionsThCait romero ATC - 03/15/2021 12:[address] Gabriele Roper MD Sports & Orthopaedic Medicine [facility], [place] [facility] Nurse Line: [phone] Please contact Orthopedic Urgent Care line for all requests and questions. Medication Requests: Prescriptions are not filled on Weekends or on Weekdays after 3:00PM For all medication refills: Request a refill using MyChart or contact your Pharmacy To schedule appointments: [phone] Paperwork Requests: FMLA or disability paperwork can be faxed to: [phone] Medical records: [phone] (option 4) [facility] Worker's Compensation Services E-mail Address: [email or web address] Diagnosis: Left gluteus tendinitis/ Iliotibial band syndrome Plan: Physical therapy Ice as needed - 20 minutes on, 60 minutes off Tylenol and Ibuprofen as needed Rest as needed Follow up as needed OR SALES REPRESENTATIVE documented in this encounter Progress Notes Gabriele Roper MD - 03/15/2021 12:00 AM CST NAME: NICOLETTE RICE CSN: [id number] CLINIC NOTE DATE OF SERVICE: 03/15/2021 : 1950 The patient is a 70-year-old here for evaluation for left glute pain that has been persisting despite conservative management so an MRI was done to evaluate. It shows no evidence of fracture subluxation or dislocation noted. Given that finding and the pain still being over the glutes in the IT band area suggesting this is likely going on. So will have him to physical therapy, ice, anti-inflammatories. Follow up if not improving in the next week. GABRIELE ROPER MD RTJ/AQS /[id number] OR SALES REPRESENTATIVE documented in this encounter Plan of Treatment Scheduled Referrals Name Type Priority Associated Diagnoses [facility] Referral Routine Gluteal tendinitis, left hip Ordered: 03/15/2021 documented as of this encounter Visit Diagnoses Diagnosis Gluteal tendinitis, left hip - Primary documented in this encounter Care Teams Transportation Technician Relationship Specialty Start Date End Date Po Coats MD PCP - General 08/07/12 [address] [place] [address] documented as of this encounter
--- OUTSIDE RECORDS SUMMARY | 2022-01-20 08:12 | XMS_ITS | Encounter Summary ---
:1950 Author Organization [place] Address [address] [place] [id number] Care Team Providers Name Role Phone Sumanth Bearden Primary Care Provider [phone] Reason for Visit Reason Comments Abdominal Pain Encounter Details Date Type Department Care Team Description 01/09/2014 Emergency [facility] Edmund Granados Divertic ulitis of [facility] MD Aj (Primary Dx) Dept [facility] [address] [place], [place] [address] [facility] [id number] [place], [place] [id number] (Wo rk) Social History Tobacco Use Types Packs/Day Years Used Date Never Smoker Alcohol Use Standard Drinks/Week Comments No 0 (1 standard drink = 0.6 oz pure alcoho l) Sex Assigned at Date Recorded Not on file documented as of this encounter Last Filed Vital Signs Vital Sign Reading Time Taken Comments Blood Pressure 143/79 01/09/2014 5:47 AM CDT Pulse - - Temperature 37.1 ??C (98.7 ??F) 01/09/2014 4:24 AM CDT Respiratory Rate 20 01/09/2014 6:30 AM CDT Oxygen Saturation 95% 01/09/2014 6:11 AM CDT Inhaled Oxygen Concentration - - Weight 113.4 kg (250 lb) 01/09/2014 4:24 AM CDT Height 175.3 cm (5' 9) 01/09/2014 4:24 AM CDT Body Mass Index 36.92 01/09/2014 4:24 AM CDT documented in this encounter Discharge Instructions Discharge InstructionsEdmund Granados MD - 01/09/2014 6:17 AM CDT Discharge Instructions Diverticulitis Your doctor has diagnosed [...] contain Tylenol?? (acetaminophen), including Vicodin??, Tylenol #3??, [place]??, Lortab??, and Percocet??. You should not take [...] ciprofloxacin (CIPRO) 500 Take 1 tablet (500 20 tablet 0 01/19/2014 MG tablet mg) by mouth 2 times daily for 10 days metroNIDAZOLE (FLAGYL) 250 Take 2 tablets (500 60 tablet 0 01/09/2014 01/19/2014 MG tablet mg) by mouth 3 times daily for 10 days ondansetron (ZOFRAN ODT) 4 Take 1 tablet (4 10 tablet 0 01/12/2014 MG disintegrating tablet mg) by mouth every 8 hours as needed for nausea Atorvastatin Calcium Take 20 mg by mouth 0 03/02/2018 (LIPITOR PO) every evening ibuprofen (ADVIL,MOTRIN) Take 1 tablet (600 30 tablet 1 01/02/2016 600 MG tablet mg) by mouth every 6 hours as needed for moderate pain oxyCODONE-acetaminophen Take 1-2 tablets by 20 tablet 0 01/02/2016 (PERCOCET) 5-325 MG per mouth every 6 hours tablet as needed for moderate to severe pain documented as of this encounter ED Notes Kathryn Conway RN - 01/09/2014 6:16 AM CDT at bedside. Edmund Granados MD - 01/09/2014 4:34 AM CDT Images from the original note were not included. History Chief Complaint: -Abdominal Pain HPI Raul Dickson is an otherwise healthy 63 year old male who presents with right lower quadrant abdominal pain. He reports a sharp sudden onset of the pain while sleeping 2-3 hours ago. Here, the patientrates his pain as 7/10 in severity. The patient reports worsening of pain with exertion and coughing. He denies any nausea, vomiting, diarrhea, black/bloody stools. He denies any fever or chills. He denies any sick contacts, recent travel, or rash. He denies any radiation into his testicles. He deniesany back pain. The patient claims to have felt fine during the day. Allergies: -NKDA Medications: negative Past Medical History: Hypertension Past Surgical History: -genitourinary surgery Family / Social History: -negative Marital Status: Social History: nonsmoker, here with , no alcohol use Review of Systems Constitutional: Negative for fever and chills. Respiratory: Negative for cough. Gastrointestinal: Positive for abdominal pain. Negative for nausea and vomiting. Genitourinary: Negative for scrotal swelling. All other systems reviewed and are negative. Physical Exam First Vitals: BP: 176/102 mmHg Heart Rate: 89 Temp: 98.7 ??F (37.1 ??C) Resp: 22 Height: 175.3 cm (5' 9) Weight: 113.399 kg (250 lb) SpO2: 95 % Physical Exam Constitutional: He is oriented to person, place, and time. He appears well-developed. HENT: Head: Normocephalic and atraumatic. Right Ear: External ear normal. Mouth/Throat: Oropharynx is clear and moist. Eyes: Conjunctivae and EOM are normal. Pupils are equal, round, and reactive to light. Neck: Normal range of motion. Neck supple. No JVD present. Cardiovascular: Normal rate, regular rhythm and normal heart sounds. Pulmonary/Chest: Effort normal and breath sounds normal. Abdominal: Soft. Bowel sounds are normal. He exhibits no distension. There is tenderness. There is rebound. There is no rigidity and no guarding. Musculoskeletal: Normal range of motion. Lymphadenopathy: He has no cervical adenopathy. Neurological: He is alert and oriented to person, place, and time. He displays normal reflexes. No cranial nerve deficit. He exhibits normal muscle tone. Coordination normal. Skin: Skin is warm and dry. Psychiatric: He has a normal mood and affect. His behavior is normal. Judgment normal. Emergency Department Course Imaging: Radiographic findings were communicated with the patient who voiced understanding of the findings. CT abdomen: Impression: 1. Diverticulitis of the mid ascending colon: mild haziness present in the fat adjacent to a mildly thick-walled ascending colon, in the region or a few diverticula. 2. No abscess 3. Cholelithiasis 4. Small low attenuation lesion in the liver, too small to characterize Preliminary reading per radiology. Laboratory: -CBC: WBC: 18.6; HGB:15.8; PLT 219 -BMP: gluc 145, creat 0.99, o/w wnl -Hepatic panel: unremarkable -Lipase: 164 - Routine UA with microscopic: abnormal: slightly cloudy yellow with protein albumin:10; Leukocyte esterase: Trace; Mucous present, o/w wnl Interventions: -NS 2 L IV -Toradol 15 mg IV -Zofran 4 mg IV -Dilaudid 0.5 mg IV -Flagyl 500 mg tablet PO -Cipro 500 mg tablet PO Emergency Department Course: Nursing notes and vitals reviewed. I performed an exam of the patient as documented above. IV inserted and blood drawn. 0607 - CT abdomen pelvis obtained. Results as above. Findings discussed with the patient. I personally reviewed the laboratory results with the Patient and answered all related questions prior to discharge. Patient discharged home with instructions regarding supportive care, medications, and reasons to return. The importance of close follow-up was reviewed. The patient was prescribed Ibuprofen, Percocet, Cipro, Flagyl, Zofran. Impression & Plan Medical Decision Making: Raul Dickson is a 63 year old male who presents with right mid abdominal pain. The pain is worse with motion and bending. The lab does show elevated white blood cell count due to differential including cholecystitis and appendicitis. CT of the abdomen was performed. There is evidence of diverticulitis. If radiologist agrees we will discharge with oral antibiotics, medication for pain and follow up in the clinic. Diagnosis: 1. Right mid colon diverticulitis 2. Incidental chololithiasis Diann Monroe, am serving as a scribe at 440 AM on 01/09/2014 to document services personally performed by Edmund Granados MD, based on my observations and the provider's statements to me. Edmund Granados MD 01/11/14 1513 Yvette Lau RN - 01/09/2014 4:28 AM CDT IN TRIAGE airway,breathing and circulation intact, without need for intervention . Alert and interacting appropriately for age and situation. Right lower abdominal pain documented in this encounter Plan of Treatment Not on filedocumented as of this encounter Procedures Procedure Name Priority Date/Time Associated Comments Diagnosis CT ABDOMEN PELVIS W STAT 01/09/2014 5:54 AM Re sults for this CONTRAST CDT procedure are i n the results section. CBC WITH PLATELETS & STAT 01/09/2014 4:45 AM R esults for this DIFFERENTIAL CDT procedure are i n the results section. LIPASE STAT 01/09/2014 4:45 AM Results f or this CDT procedure are i n the results section. HEPATIC FUNCTION STAT 01/09/2014 4:45 AM Resul ts for this PANEL CDT procedure are i n the results section. BASIC METABOLIC PANEL STAT 01/09/2014 4:45 AM Results for this CDT procedure are i n the results section. ROUTINE UA WITH Routine 01/09/2014 4:35 AM Result s for this MICROSCOPIC CDT procedure are i n the results section. documented in this encounter Results CT Abdomen Pelvis w Contrast (01/09/2014 5:54 AM CDT) Anatomical Region Laterality Modality Abdomen/Pelvis, SUBRAD CT BODY, UMP CT ABDOMEN PELVIS Computed Tomography Specimen (Source) Anatomical Location Collection Method / Collectio n Time Received Time / Laterality Volume Impressions 01/09/2014 6:43 PM CDT IMPRESSION: Acute ascending diverticulitis. No evidence for intraperitoneal free air or abscess form ation. I agree with the preliminary report prov ided by Dr. Caban on 01/09/2014 at 6:08 AM JUNIOR LEON MD Narrative 01/09/2014 6:[address] ABDOMEN AND PELVIS WITH CONTRAST ??01/09/2014 ??5:54 AM HISTORY: Evaluate for right lower abdomi nal pain. Diverticulitis versus appendicitis. COMPARISON: None. TECHNIQUE: Volumetric helical acquisitio n of CT images from the lung bases through the symphysis pubis were a cquired after administration of 100 mL isovue 370 intravenous contras t. Coronal images reconstructed from axial image data. FINDINGS: There is inflammation around t he ascending colon consistent with acute diverticulitis. No evidence f or intraperitoneal free air or abscess formation. Normal appendix. No h ydronephrosis. No free fluid. Atherosclerotic nonaneurysmal aorta. The re is cholelithiasis without evidence for cholecystitis. A low-dense lesion is seen in the liver which is too small to definitively soniya cterize and therefore indeterminate, but based on prevalence i n a patient without a known malignancy is most likely a small cyst. Mild diverticulosis. The spleen, adrenal glands, kidneys and panc reas demonstrate no worrisome focal lesion. Lung bases demonstrate min imal linear peripheral atelectasis and/or fibrosis. No pleural or pericardial effusion. Bone windows reveal no suspicious lesions. No free air in the abdomen. There are no abdominal or pelvic lymph n odes that are abnormal by size criteria. There are no dilated loops of small intestine or large bowel to suggest ileus or obstruction. Procedure Note Junior Leon MD - 01/09/2014Fo rmatting of this note might be different from the original. CT ABDOMEN AND PELVIS WITH CONTRAST 01/09 5:54 AM HISTORY: Evaluate for right lower abdomi nal pain. Diverticulitis versus appendicitis. COMPARISON: None. TECHNIQUE: Volumetric helical acquisitio n of CT images from the lung bases through the symphysis pubis were a cquired after administration of 100 mL isovue 370 intravenous contras t. Coronal images reconstructed from axial image data. FINDINGS: There is inflammation around t he ascending colon consistent with acute diverticulitis. No evidence f or intraperitoneal free air or abscess formation. Normal appendix. No h ydronephrosis. No free fluid. Atherosclerotic nonaneurysmal aorta. The re is cholelithiasis without evidence for cholecystitis. A low-dense lesion is seen in the liver which is too small to definitively soniya cterize and therefore indeterminate, but based on prevalence i n a patient without a known malignancy is most likely a small cyst. Mild diverticulosis. The spleen, adrenal glands, kidneys and panc reas demonstrate no worrisome focal lesion. Lung bases demonstrate min imal linear peripheral atelectasis and/or fibrosis. No pleural or pericardial effusion. Bone windows reveal no suspicious lesions. No free air in the abdomen. There are no abdominal or pelvic lymph n odes that are abnormal by size criteria. There are no dilated loops of small intestine or large bowel to suggest ileus or obstruction. IMPRESSION IMPRESSION: Acute ascending diverticulit is. No evidence for intraperitoneal free air or abscess form ation. I agree with the preliminary report prov ided by Dr. Caban on 01/09/2014 at 6:08 AM JUNIOR LEON MD Edmund Granados MD IMG CT ORDERABLES Lipase (01/09/2014 4:45 AM CDT) athologist Signature Lipase 164 73 - 393 [facility] Comment: Effective 11/11/2013, the reference range for this assay has changed to reflect new instrumentation/methodology. Specimen Anatomical Collection Method Collection Time Receive d Time (Source) Location / / Volume Laterality Blood specimen 01/09/2014 4:45 AM 014 4:49 (specimen) CDT AM CDT Edmund Granados MD LAB - BLOOD ORDERABLES Performing Organization Address City/State/ZIP Code Phon e Number [facility] [address] [place], [place] [address] [facility] Hepatic panel (01/09/2014 4:45 AM CDT) athologist Signature Bilirubin 0.2 0.0 - 0.2 [place] Direct mg/dL [facility] Comment: Effective 11/11/2013 all values are a sum mation of both the conjugated and delta bilirubin fractions. Effective 11/11/2013, the reference rang e for this assay has changed to reflect new instrumentation/methodology. Bilirubin Total 0.8 0.2 - 1.3 mg/dL [facility] Albumin 3.7 3.3 - 4.9 g/dL [facility] Protein Total 7.7 6.8 - 8.8 g/dL [facility] Alkaline Phosphatase 107 40 - 150 U/L [facility] ALT 29 0 - 70 U/L [facility] AST 15 0 - 45 U/L [facility] Specimen Anatomical Collection Method Collection Time Receive d Time (Source) Location / / Volume Laterality Blood specimen 01/09/2014 4:45 AM 014 4:49 (specimen) CDT AM CDT Edmund Granados MD LAB - BLOOD ORDERABLES Performing Organization Address City/State/ZIP Code Phon e Number [place] [id number] [place], [place] [address] [facility] (ABNORMAL) Basic metabolic panel (01/09/2014 4:45 AM CDT) athologist Signature Sodium 139 133 - 144 [place] mmol/L [facility] Potassium 3.9 3.4 - 5.3 [place] mmol/L [facility] Chloride 105 94 - 109 [place] mmol/L [facility] Carbon Dioxide 27 20 - 32 [place] mmol/L [facility] Anion Gap 7 6 - 17 [place] mmol/L [facility] Glucose 145 (H) 70 - 99 [place] mg/dL [facility] Comment: Effective 11/11/2013, the reference range for this assay has changed to reflect new instrumentation/methodology. Urea Nitrogen 14 7 - 30 mg/dL [facility] Comment: Effective 11/11/2013, the reference range for this assay has changed to reflect new instrumentation/methodology. Creatinine 0.99 0.66 - 1.25 mg/dL [facility] GFR Estimate 76 >60 mL/min/1.7m2 [facility] Comment: Non GFR Calc GFR Estimate If Black >90 >60 mL/min/1.7m2 [facility] GFR Calc [facility] Calcium 8.7 8.5 - 10.1 mg/dL [facility] Comment: Effective 11/11/2013, the reference range for this assay has changed to reflect new instrumentation/methodology. Specimen Anatomical Collection Method Collection Time Receive d Time (Source) Location / / Volume Laterality Blood specimen 01/09/2014 4:45 AM 014 4:49 (specimen) CDT AM CDT Edmund Granados MD LAB - BLOOD ORDERABLES Performing Organization Address City/State/ZIP Code Phon e Number [place] [address] [place] [address] [facility] (ABNORMAL) CBC with platelets differential (01/09/2014 4:45 AM CDT) [facility] gist Method Time Signature WBC 18.6 (H) 4.0 - [place] 11.0 [facility] 10e9/L [facility] RBC Count 5.30 4.4 - 5.9 [place] 10e12/L [facility] Hemoglobin 15.8 13.3 - [place] 17.7 g/dL [facility] Hematocrit 47.0 40.0 - [place] 53.0 % [facility] MCV 89 78 - 100 [facility] MCH 29.8 26.5 - [place] 33.0 pg [facility] MCHC 33.6 31.5 - [place] 36.5 g/dL [facility] RDW 13.5 10.0 - [place] 15.0 % [facility] Platelet Count 219 150 - 450 [place] 10e9/L [facility] Diff Method Automated [facility] % Neutrophils 77.4 % [facility] % Lymphocytes 11.3 % [facility] % Monocytes 10.2 % [facility] % Eosinophils 0.5 % [facility] % Basophils 0.2 % [facility] % Immature 0.4 % [place] Granulocytes [facility] Absolute 14.4 (H) 1.6 - 8.3 [place] Neutrophil 10e9/L [facility] Absolute 2.1 0.8 - 5.3 [place] Lymphocytes 10e9/L [facility] Absolute 1.9 (H) 0.0 - 1.3 [place] Monocytes 10e9/L [facility] Absolute 0.1 0.0 - 0.7 [place] Eosinophils 10e9/L [facility] Absolute 0.0 0.0 - 0.2 [place] Basophils 10e9/L [facility] Abs Immature 0.1 0 - 0.4 [place] Granulocytes 10e9/[facility] Specimen Anatomical Collection Method Collection Time Receive d Time (Source) Location / / Volume Laterality Blood specimen 01/09/2014 4:45 AM 014 4:49 (specimen) CDT AM CDT Edmund Granados MD LAB - BLOOD ORDERABLES Performing Organization Address City/State/ZIP Code Phon e Number [place] [phone] [place] [address] [facility] (ABNORMAL) Routine UA with microscopic (01/09/2014 4:35 AM CDT) [facility] Method Time Signature Color Urine Yellow [facility] Appearance Urine Slightly [place] Cloudy [facility] Glucose Urine Negative NEG mg/dL [facility] Bilirubin Urine Negative NEG [facility] Ketones Urine Negative NEG mg/dL [facility] Specific [place] 1.019 1.003 - [place] Urine 1.035 [facility] Blood Urine Negative NEG [facility] pH Urine 5.5 5.0 - 7.0 [place] pH [facility] Protein Albumin 10 (A) NEG mg/dL [facility] Urobilinogen Normal 0.0 - 2.0 [place] mg/dL mg/dL [facility] Nitrite Urine Negative NEG [facility] Leukocyte Trace (A) NEG [place] Esterase Urine [facility] Source Midstream [place] Urine [facility] WBC Urine 2 0 - 2 [facility] RBC Urine <1 0 - 2 [facility] Squamous 1 0 - 1 [place] Epithelial /HPF /[facility] Transitional Epi <1 0 - 1 [facility] Mucous Urine Present (A) NEG /LPF [facility] Specimen Anatomical Collection Method Collection Time Receive d Time (Source) Location / / Volume Laterality Urine specimen URINE SPECIMEN 01/09/2014 4:35 AM 01/09 4:39 (specimen) OBTAINED BY CLEAN CDT AM CDT CATCH PROCEDURE / Unknown Edmund Granados MD LAB - URINE ORDERABLES Performing Organization Address City/State/ZIP Code Phon e Number M [facility] [address] [place], [place] [address] [facility] documented in this encounter Visit Diagnoses Diagnosis Diverticulitis of colon - Primary Diverticulitis of colon (without mention of hemorrhage) documented in this encounter Administered Medications Inactive Administered Medications - up to 3 most recent administrations Medication Order MAR Action Action Date Dose Rate Site ciprofloxacin (CIPRO) tablet 500 Given 01/09/2014 6:22 AM CDT 50 0 mg mg STAT, 500 mg, Oral, ONCE, On 01/09/14 at 0618, For 1 dose, Administer at least 2 hrs before or 4 hrs after aluminum, calcium, iron, zinc or magnesium containing products., Indications: Intra-Abdominal Infection HYDROmorphone (PF) (DILAUDID) injection 0.5 Given 01/09/2014 4:55 AM CDT 0.5 mg mg 0.5 mg, Intravenous, EVERY 15 MIN PRN, moderate to severe pain, Starting on 01/09/14 at 0439, For 3 doses iopamidol (ISOVUE-370) 76% solution 500 mL Given 01/09/2014 5:44 AM CDT 100 mLs 500 mL, Intravenous, ONCE, On 01/09/14 at 0533, For 1 dose ketorolac (TORADOL) injection 15 mg Given 01/09/2014 4:53 AM CDT 15 mg 15 mg, Intravenous, ONCE, On 01/09/14 at 0440, For 1 dose, Do not give within 6 hours of Ibuprofen. metroNIDAZOLE (FLAGYL) tablet 500 mg Given 01/09/2014 6:22 AM CDT 500 mg STAT, 500 mg, Oral, ONCE, On 01/09/14 at 0618, For 1 dose, Indications: Intra-Abdominal Infection ondansetron (ZOFRAN) injection 4 mg Given 01/09/2014 4:53 AM CDT 4 mg 4 mg, Intravenous, ONCE PRN, nausea, vomiting, Administer over 2-5 Minutes, Starting on 01/09/14 at 0439, For 1 dose sodium chloride 0.9 % BOLUS New Bag 01/09/2014 4:53 AM CDT 1,000 m Ls 1000 mL/hr 1,000 mL Intravenous, 1,000 mL, ONCE, at 1,000 mL/hr, Administer over 1 Hours, On 01/09/14 at 0440, For 1 dose sodium chloride 0.9 % BOLUS 1,000 mL New Bag 01/09/2014 5:44 AM CDT 65 mLs Intravenous, 1,000 mL, ONCE, On 01/09/14 at 0533, For 1 dose documented in this encounter Active and Recently Administered Medications Times are shown in CDT. Scheduled Medication Order 01/07/2014 01/08/2014 01/09/2014 ciprofloxacin (CIPRO) tablet 500 mg (COMPLETED) 621 (Given - Provider: Kathryn Conway RN) STAT, 500 mg, Oral, ONCE, On 01/09/14 at 0618, For 1 dose, Administer at least 2 hrs before or 4 hrs after aluminum, calcium, iron, zinc or magnesium containing products., Indications: Intra-Abdominal Infection iopamidol (ISOVUE-370) 76% solution 500 mL (COMPLETED) 543 (Given - Provider: Goldie Ceballos - Comment: bulk) 500 mL, Intravenous, ONCE, On 01/09/14 at 0533, For 1 dose ketorolac (TORADOL) injection 15 mg (COMPLETED) 452 (Given - Provider: Kathryn Conway RN) 15 mg, Intravenous, ONCE, On 01/09/14 at 0440, For 1 dose, Do not give within 6 hours of Ibuprofen. metroNIDAZOLE (FLAGYL) tablet 500 mg (COMPLETED) 621 (Given - Provider: Kathryn Conway RN) STAT, 500 mg, Oral, ONCE, On 01/09/14 at 0618, For 1 dose, Indications: Intra-Abdominal Infection sodium chloride 0.9 % BOLUS 1,000 mL (COMPLETED) 0453 (New Bag - Provider: Kathryn Conway RN)0619 (Stopped - Provider: Kathryn Conway RN) Intravenous, 1,000 mL, ONCE, at 1,000 mL /hr, Administer over 1 Hours, On 01/09/14 at 0440, For 1 dose sodium chloride 0.9 % BOLUS 1,000 mL (COMPLETED) 0544 (New Bag - Provider: Goldie Ceballos - Comment: bulk)0546 (Stopped - Provider: Goldie Ceballos) Intravenous, 1,000 mL, ONCE, On 01/09/14 at 0533, For 1 dose PRN Medication Order 01/07/2014 01/08/2014 01/09/2014 HYDROmorphone (PF) (DILAUDID) injection 0.5 mg (CANCELED) 045 (Given - Provider: Kathryn Conway RN) 0.5 mg, Intravenous, EVERY 15 MIN PRN, m oderate to severe pain, Starting on 01/09/14 at 0439, For 3 doses ondansetron (ZOFRAN) injection 4 mg (COMPLETED) 045 (Given - Provider: Kathryn Conway RN) 4 mg, Intravenous, ONCE PRN, nausea, vom iting, Administer over 2-5 Minutes, Starting on 01/09/14 at 0439, For 1 dose documented in this encounter Care Teams Physician Relations Specialist Relationship Specialty Start Date End Date Sumanth Bearden PCP - General Family Practice 01/09/14 03/01/18 [id number] [place] [id number] documented as of this encounter
--- OUTSIDE RECORDS SUMMARY | 2022-01-20 08:12 | XMS_ITS | Encounter Summary ---
:1950 Author Organization [employer] Address [address] [facility] [place] [address] Care Team Providers Name Role Phone Po Coats MD Primary Care Provider Reason for Visit Reason Comments Hip Problem Encounter Details Date Type Department Care Team Description 04/12/2021 Therapy [facility] Anne Sinclair , Hip flexor tendinitis, left (Primary Dx); - Physical Therapy PT Gluteal tendinitis, left hip [address] [facility] [address] [place] [address] [place], [place] [phone] [address] Social History Tobacco Use Types Packs/Day Years [...] encounter Progress Notes Anne Sinclair, PT - 04/12/2021 10:45 AM CST [facility] Progress Note Visit Number: 3 of 12 Initial Certification Period: 03/16/2021 to 06/14/21 Referring Provider: Zac Harden Visit Diagnosis: 1. Hip flexor tendinitis, left 2. Gluteal tendinitis, left hip Precautions: None SUBJECTIVE: Pain is getting a little better in hip, still has to stabilize himself when standing up initially and has pain when laying on left side OBJECTIVE Current Objective Findings: ROM: Left: limited by pain external/internal rotation and flexion Right: normal Strength: Left: Hip flexion: 3+/5 pain Hip extension: 5/5 Hip adduction: 4/5 Hip abduction: 3+/5 pain in sidelying Right: Hip flexion: 4/5 Hip extension: 5/5 Hip adduction: 4/5 Hip abduction: 3+/5 no pain Flexibility: Hamstrings: Restricted Hip flexors: Restricted Piriformis: Restricted Special Tests: Left: TESSY: Positive hip findings Pain reproduction FADIR: Positive Hip Scour Test: Negative Log Roll Test: Negative Right: TESSY: WNL FADIR: Negative Hip Scour Test: Negative Proprioception: Single leg stance: Increase pain when standing on left foot Able to feel pt painful spot on lateral side of ASIS Treatment/Education Today: Manual therapy x23 minutes performed on left leg - IT band fascia mobilization -TFL soft tissue mobilization -hip joint lateral mobs with mobilization belt -hip joint inferior mobs -hip distraction Therapeutic exercise x15min -clamshell 2x20 each side -hip abduction 2x20 each side *felt stretch and fatigue -seated adduction isometric squeezes 15x5s holds *trialed standing hip abduction but too hard to stand on left leg -reviewed new HEP Timed Code Treatment Minutes: 38min Total Treatment Minutes: 38min Current Home Exercise Program List: Access Code: [email or web address] URL: [email or web address] Date: 04/12/2021 Prepared by: Anne Sinclair Exercises Supine Gluteus Stretch - 1 x daily - 7 x weekly - 2 sets - 30s hold Standing Hip Flexor Stretch - 1 x daily - 7 x weekly - 2 sets - 30 s hold Sidelying IT Band Foam Roll Mobilization - 2 x daily - 7 x weekly - 2 sets - 60min hold Sidelying Hip Abduction - 1 x daily - 7 x weekly - 2 sets - 10 reps Clamshell - 1 x daily - 7 x weekly - 2 sets - 20 reps ASSESSMENT/PROGRESS TOWARD GOALS: Pt is a 70 y/o male referred to Physical Therapy for eval and treat of left glute tendinitis; however with further evaluation today it looks more like TFL tendinitis. Pt tolerated manual therapy and felt better after session. HEP changed to increase glute activation. Skilled PT services are needed to address the above issues. Factors that influence progression are compliance and chronicity. Prognosisis good Functional Goals/Outcomes: HEP/Independent Management: Demonstrate independence with HEP and self- management following each treatment session MET ADL's: Transition sit to stand with normal positioning and weight bearing in 6-8 weeks. Ambulation: Ambulate with normal gait pattern in 6-8 weeks. Ambulate for 30 minutes/6 blocks without increased symptoms in 8-10 weeks PLAN: glute/hip flexor stretching, gentle glute strengthening, joint mobs if indicated. Ultrasound?? KER OPERATOR documented in this encounter Plan of Treatment Not on filedocumented as of this encounter Visit Diagnoses Diagnosis Hip flexor tendinitis, left - Primary Gluteal tendinitis, left hip documented in this encounter Care Teams Grain Combiner Relationship Specialty Start Date End Date Po Coats MD PCP - General 08/07/12 [address] [place] [address] documented as of this encounter
--- OUTSIDE RECORDS SUMMARY | 2022-01-20 08:12 | XMS_ITS | Encounter Summary ---
:1950 Author Organization [email or web address] Address [address], [place] [address] Care Team Providers Name Role Phone Po Coats MD Primary Care Provider Reason for Referral Procedure/Equipment (Routine) - New Request Specialty Diagnoses / Procedures Referred By Contact Refer red To Contact Diagnoses CARLOS (obstructive sleep apnea) MD Rl Procedures Sleep Supply Renew [address] [place] [address] Referral ID Status Reason Start Date Expiration Date Visits V isits Requested Authorized [id number] New Request 10/31/2021 01/30/2023 1 1 Encounter Details Date Type Department Care Team Description 10/31/2021 Notes/Orders [facility] 3931 MD Rl CARLOS (obstructive sleep CPAP Services [address] apnea) (Primary Dx) [address] [place] [address] [phone] Social History Tobacco Use Types Packs/Day Years [...] as of this encounter Visit Diagnoses Diagnosis CARLOS (obstructive sleep apnea) - Primary Obstructive sleep apnea (adult) (pediatr ic) documented in this encounter Care Teams Paper Cup Machine Operator Relationship Specialty Start Date End Date Po Coats MD PCP - General 08/07/12 [address] [place] [address] documented as of this encounter
--- OUTSIDE RECORDS SUMMARY | 2022-01-20 08:12 | XMS_ITS | Encounter Summary ---
:1950 Author Organization [employer] Address [address] [address] Care Team Providers Name Role Phone Po Coats MD Primary Care Provider Encounter Details Date Type Department Care Team Description 05/08/2021 Notes[facility]Orders [facility] Anne Harrell, PT Physical Therapy [address] [facility] [address] [place] [address] [place] [address] [phone] Social History Tobacco Use Types Packs/Day Years [...] encounter Progress Notes Anne Sinclair, PT - 05/08/2021 11:59 PM CST [facility] Discharge Summary Raul Dickson has not attended therapy since last documented visit. There are no further visits scheduled at this time and Raul is currently considered discharged from therapy. Unable to assess currentlevel of function and goals due to unplanned discharge. Please see previous visit documentation of status at last treatment. Anne Sinclair PT documented in this encounter Plan of Treatment Not on filedocumented as of this encounter Visit Diagnoses Not on filedocumented in this encounter Care Teams Preventive Medicine Officer Relationship Specialty Start Date End Date Po Coats MD PCP - General 08/07/12 [address] [place] [id number] documented as of this encounter
--- OUTSIDE RECORDS SUMMARY | 2022-01-20 08:12 | XMS_ITS | Encounter Summary ---
:1950 Author Organization [employer] Address [address] [place] [address] Care Team Providers Name Role Phone Po Coats MD Primary Care Provider Reason for Referral (Routine) - New Request Specialty Diagnoses / Procedures Referred By Contact Refer red To Contact Diagnoses Trochanteric bursitis of left hip Gabriele Roper MD Procedures Dexamethasone Sodium Phos (per 1 mg) [address] [place], [place] [address] Referral ID Status Reason Start Date Expiration Date Visits V isits Requested Authorized [id number] New Request 05/21/2021 08/20/2022 1 1 S COMMUNICATIONS MANAGER Reason for Visit Reason Comments Follow-up CONTINUES TO CO OF PAIN IN T HE LEFT LEG, FEELS THAT PT IS NOT HELPING Encounter Details Date Type Department Care Team Description 05/12/2021 Office Visit [facility] Gabriele Roper MD Trochanteric bursitis Urgent Care [address] of left hip (Primary [address] [place], [place]) [place] [address] [phone] Social History Tobacco Use Types Packs/Day Years [...] Pressure - - Pulse - - Temperature 35.8 ??C (96.5 ??F) 05/12/2021 8:36 AM SALES COMMUNICATIONS MANAGER Respiratory Rate - - Oxygen Saturation - - Inhaled Oxygen Concentration - - Weight - - Height - - Body Mass Index - - documented in this encounter Patient Instructions Patient InstructionsLu Parada LPN - 05/12/2021 8:[address] Gabriele Roper MD Sports & Orthopaedic Medicine [facility] [place] [facility] Nurse Line: [phone] Please contact Orthopedic Urgent Care line for all requests and questions. Medication Requests: Prescriptions are not filled on Weekends or on Weekdays after 3:00PM For all medication refills: Request a refill using [employer] or contact your Pharmacy To schedule appointments: [phone] Paperwork Requests: FMLA or disability paperwork can be faxed to: [phone] Medical records: [phone] (option 4) [facility] Worker's Compensation Services E-mail Address: [email or web address] The left hip was injected with Kenalog-40 and lidocaine. Avoid Strenuous Activity for the remainder of the day and avoid activities that cause pain for one to two weeks following the injection. Signs and Symptoms to watch for: If you have any redness, warmth or increasing pain at the site of the injection or develop a fever, please call [phone] S COMMUNICATIONS MANAGER documented in this encounter Progress Notes Gabriele Roper MD - 05/12/2021 12:00 AM CST NAME: NICOLETTE RICE CSN: [id number] CLINIC NOTE DATE OF SERVICE: 05/12/2021 : 1950 70-year-old here for evaluation for left hip pain that has been persisting and wanted to have further evaluation and treatment options. In the past a cortisone shot has been helpful. But now pain is right back in that area again and wants further treatment options. On examination, he has pain in the trochanteric bursa that recreates his symptoms. Log roll hip is negative. Stinchfield testing was negative. He is afebrile. ASSESSMENT AND PLAN: Left hip trochanteric bursitis. Suggested ice, anti- inflammatories, trial of a cortisone shot. If it resolves no followup needed. If the pain persists, come back in for further imaging. He wanted proceed so 1 mL of Kenalog 40 mg and 5 mL of 1% lidocaine was injected in the left trochanteric bursa. No complications occurred. GABRIELE ROPER MD RTJ/AQS /[id number] S COMMUNICATIONS MANAGER documented in this encounter Plan of Treatment Not on filedocumented as of this encounter Visit Diagnoses Diagnosis Trochanteric bursitis of left hip - Prim abigail Enthesopathy of hip region documented in this encounter Care Teams Research Lab Assistant Relationship Specialty Start Date End Date Po Coats MD PCP - General 08/07/12 [address] [place] [address] documented as of this encounter
--- OUTSIDE RECORDS SUMMARY | 2022-01-20 08:12 | XMS_ITS | Encounter Summary ---
:1950 Author Organization [employer] Address [address] [place] [address] Care Team Providers Name Role Phone Po Coats MD Primary Care Provider Reason for Visit Reason Comments Hip Problem Encounter Details Date Type Department Care Team Description 03/23/2021 Therapy [facility] Anne Sinclair , Hip flexor tendinitis, left (Primary Dx); - Physical Therapy PT Gluteal tendinitis, left hip [address] [place] [address] [place], [place] [phone] Social History Tobacco Use Types Packs/Day Years [...] encounter Progress Notes Anne Sinclair, PT - 03/23/2021 11:45 AM CST [facility] Progress Note Visit Number: 2 of 12 Initial Certification Period: 03/16/2021 to 06/14/21 Referring Provider: Zac Harden Visit Diagnosis: 1. Hip flexor tendinitis, left 2. Gluteal tendinitis, left hip Precautions: None SUBJECTIVE: Hamstrings are getting looser and feels hip joint is loosening up. Hip pain is still the same. OBJECTIVE Current Objective Findings: ROM: Left: limited [...] belt -hip joint inferior mobs -hip distraction -foam roller on TFL/glute medius 2x1min *pt reported releif with standing/walking Therapeutic activity x8min - discussion in investing in foam roller -hip abduction x10 each side *felt stretch and fatigue Timed Code Treatment Minutes: 30min Total Treatment Minutes: 30min Current Home Exercise Program List: Access Code: [email or web address] URL: [email or web address] Date: 03/23/2021 Prepared by: Anne Sinclair Exercises Supine Lower [...] weekly - 2 sets - 10 reps ASSESSMENT/PROGRESS TOWARD GOALS: Pt is a 70 y/o male referred to Physical Therapy for eval and treat of left glute tendinitis; however with further evaluation today it looks more like TFL tendinitis. Pt tolerated manual therapy and felt better after session. HEP changed. Skilled PT services are needed to address the above issues. Factors that influence progression are compliance and chronicity. Prognosis is good Functional Goals/Outcomes: HEP/Independent Management: Demonstrate independence with HEP and self- management following each treatment session MET ADL's: Transition sit to stand with normal positioning and weight bearing in 6-8 weeks. Ambulation: Ambulate with normal gait pattern in 6-8 weeks. Ambulate for 30 minutes/6 blocks without increased symptoms in 8-10 weeks PLAN: glute/hip flexor stretching, gentle glute strengthening, joint mobs if indicated. Ultrasound?? ATRIC PSYCHIATRIST documented in this encounter Plan of Treatment Not on filedocumented as of this encounter Visit Diagnoses Diagnosis Hip flexor tendinitis, left - Primary Gluteal tendinitis, left hip documented in this encounter Care Teams Stock Preparer Relationship Specialty Start Date End Date Po Coats MD PCP - General 08/07/12 [address] [place] [address] documented as of this encounter
--- OUTSIDE RECORDS SUMMARY | 2022-01-20 08:13 | XMS_ITS | Encounter Summary ---
:1950 Author Organization [employer] Address [address] [place] [address] Care Team Providers Name Role Phone Po Coats MD Primary Care Provider Reason for Referral (Routine) - Closed Specialty Diagnoses / Procedures Referred By Contact Refer red To Contact Diagnoses Tendinopathy of left rotator cuff Leann Amaro MD Procedures Triamcinolone Acet Inj Nos: (per 10 mg) [address] [place] [address] Referral ID Status Reason Start Date Expiration Date Visits Requ ested Visits Authorized [id number] Closed 02/01/2018 05/03/2019 1 1 Therapies (Routine) - Closed Specialty Diagnoses / Procedures Referred By Contact Refer red To Contact Diagnoses Left shoulder pain, unspecified chronicity Leann Amaro MD [address] [place] [address] Referral ID Status Reason Start Date Expiration Date Visits Requ ested Visits Authorized [id number] Closed 01/16/2018 03/17/2018 1 1 Scheduling Instructions Your provider has recommended an appoint ment with [facility]. You may call [phone] to schedule your appoi ntment. If you do not schedule an appointment within the next 1 to 3 business days, we will call you to help arrange your appointment. We suggest you call your [facility] insurance company about your coverage and benefits for this appointment. Procedure/Equipment (Routine) - Incomplete Specialty Diagnoses / Procedures Referred By Contact Refer red To Contact Diagnoses Left shoulder pain, unspecified chronicity Leann Amaro MD Procedures XR Shoulder Lt 2+ Views [address] [place] [address] Referral ID Status Reason Start Date Expiration Date Visits V isits Requested Authorized [id number] Incomplete 01/16/2018 04/17/2019 1 1 Reason for Visit Reason Comments INJURY, SHOULDER DOI: 10/2017 ; fall Encounter Details Date Type Department Care Team Description 01/16/2018 Office Visit [facility] Leann Amaro Tendino kevon of left rotator cuff (Primary Dx); Urgent Care MD Kourtney Left shoulder pain, unspecified chronici ty [address] [place], [place] [address] [phone] (Wo rk) Social History Tobacco Use Types [...] Pressure - - Pulse - - Temperature 36.4 ??C (97.6 ??F) 01/16/2018 10:58 AM CDT Respiratory Rate - - Oxygen Saturation - - Inhaled Oxygen Concentration - - Weight 113.4 kg (250 lb) 01/16/2018 10:58 AM CDT Height 175.3 cm (5' 9) 01/16/2018 10:58 AM CDT Body Mass Index 36.92 01/16/2018 10:58 AM CDT documented in this encounter Patient Instructions Patient InstructionsGerard Cardona LUCITA - 01/16/2018 10:[address] Leann Amaro MD Sports & Orthopaedic Medicine [facility] Medication Requests: Prescriptions are not filled on Weekends or on Weekdays after 3:00PM For all medication refills: Request a refill using [employer] or contact your Pharmacy [facility] Nurse Line: Please contact [facility] Nurse line for all medical requests and questions at [phone] MRI Scheduling: To schedule an MRI at [facility] please call [phone] Paperwork Requests: Questions regarding FMLA or disability paperwork please call [phone] Phone lines are answered 8AM to 5PM Saturday - Saturday Workers??? Compensation: Please contact our department for any Work Comp concerns at Email: [email or web address] Start physical therapy Place ice bag (you can use a bag of frozen vegetables or other commercial products) over the injuredarea. To avoid tissue injury from the cold ice bag, place a cloth or towel between the ice bag and the skin. It is recommended that ice be applied 3-5 times a day for up to 20 minutes at a time during the first 24-72 hours. Repeat every 2 hours as needed. The left shoulder was injected with Kenalog-40 and lidocaine. Avoid Strenuous Activity for the remainder of the day and avoid activities that cause pain for one to two weeks following the injection. Signs and Symptoms to watch for: If you have any redness, warmth or increasing pain at the site of the injection or develop a fever, please call [phone] You've just had a steroid (cortisone) injection: [...] administered. documented in this encounter Progress Notes Leann Amaro MD - 01/16/2018 12:41 PM CDT NAME: NICOLETTE RICE MR#: [id number] CSN: [id number] AUTHENTICATING CLINICIAN: Leann Amaro MD CONFIRM #: [id number] LOC: 711 CLINIC PROGRESS NOTE DATE OF VISIT: 01/16/2018 : 1950 CHIEF COMPLAINT: Left shoulder pain. This is a 67-year-old gentleman who previously had right shoulder rotator cuff surgery, which he is not sure was dramatically beneficial for him, but he had an injury in his left shoulder in October of 2017. At that point in time, he had a fall. He landed on his left shoulder, tried to roll out of it. Itwas sore initially. He did his exercises, which he knew from rotator cuff on the right side. That did seem like it made things better, but it has been increasingly annoying recently. He might rate the pain as high as 9 out of 10 when he is reaching, abduction and external rotation with the shoulder. Otherwise, it is 5 out of 10. Ache is often present. REVIEW OF SYSTEMS: No fevers, chills, rash, skin changes, numbness, tingling. 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 PAST MEDICAL HISTORY: Right rotator cuff surgery 10 years ago. PHYSICAL EXAM: Temperature 97.6, height 5 feet 9 inches, weight 250. Pleasant, large gentleman, no acute distress. Examination of the left shoulder, normal appearance. Minimally tender AC joint. Minimally tender proximal biceps, more tender subacromial space. Range of motion is full. Pain with empty can testing and pain with resisted external rotation both present. Strength is 5-, strength with internal rotation is5/5 and no reproduction of pain. IMAGING STUDIES: Radiographs: Left shoulder series. Indication: Pain. Independently reviewed findings: Degenerative change seen at the AC joint and small cystic change at insertion of what appears to be supraspinatus. ASSESSMENT: Left rotator cuff tendinopathy, likely partial tearing and acromioclavicular degenerative change. PLAN: We discussed different treatment options. He is not interested in rotator cuff surgery at this pointin time, so we discussed injection and therapy. Using posterior approach, sterile technique, Hagenuo74 mg and lidocaine 1% 4 mL injected into the subacromial space. He will return for further imaging if he has failure of symptom resolution. HDT:MEDQ C: R:01/16/18 13:07 CONFIRM#:[id number] documented in this encounter Plan of Treatment Scheduled Referrals Name Type Priority Associated Diagnoses Order S [facility] Physical Therapy Referral Routine Left shoulder pain, Orde red: 01/16/2018 unspecified chronicity documented as of this encounter Results XR Shoulder Lt 2+ Views (01/16/2018 11:37 AM CDT) Anatomical Region Laterality Modality Upper Extremity, Shoulder Digital Radiog inge Specimen (Source) Anatomical Location Collection Method / Collectio n Time Received Time / Laterality Volume Narrative 01/23/2018 7:59 AM CDT Left shoulder series. ?? Indication: ??Pain. ?? Findings: ??Degenerative change seen at the AC joint and small cystic change at insertion of what appears to b e supraspinatus. ?? Leann Amaro MD RAD GD documented in this encounter Visit Diagnoses Diagnosis Tendinopathy of left rotator cuff - Prim abigail Left shoulder pain, unspecified chronici ty Left shoulder pain, unspecified chronici ty documented in this encounter Care Teams Layout Artist Relationship Specialty Start Date End Date Po Coats MD PCP - General 08/07/12 [address] [address] [place] [id number] documented as of this encounter
--- OUTSIDE RECORDS SUMMARY | 2022-01-20 08:13 | XMS_ITS | Encounter Summary ---
:1950 Author Organization [employer] Address [address] [address] Care Team Providers Name Role Phone Po Coats MD Primary Care Provider Reason for Visit Reason Onset Date Comments APPOINTMENT REQUEST 08/15/2016 Work in appointment for today with primary, [facility] f/u Pt having back pain, abdominal pain (possible kidney stone ?), [facility] 05/31[facility],please call. Encounter Details Date Type Department Care Team Description 08/15/2016 Telephone [place] [facility] Po Coats, POINTMENT REQUEST Medicine (Work in appointment [address] [address] [facility] [place] [place] [address] [place] [address] primary, [facility] f/u Pt [phone] (Wo rk) having back pain, abdominal pain (possible kidne y stone ?), [facility] 05/31/16,please call.) Social History Tobacco Use Types Packs/Day Years [...] file documented as of this encounter Nursing Notes Maegan Banegas LPN - 08/15/2016 11:24 AM CDT Phoned patient and relayed recommendations per Dr. Coats. Patient will come in to . Po Coats MD - 08/15/2016 11:08 AM CDT He needs to come in to urgent care. Alesha Butterfield, RN - 08/15/2016 9:52 AM CDT Reason for Call: Appointment Work In requested. Next Steps: Document further recommendations and route to appropriate person or pool. Caller IS expecting a call back from Care Team. Additional Information: please advise Urmila Samuel - 08/15/2016 9:30 AM CDT Work in appointment for today with primary, [facility] f/u Pt having back pain, abdominal pain (possible kidney stone ?), [facility] 05/31/16,please call. documented in this encounter Plan of Treatment Not on filedocumented as of this encounter Visit Diagnoses Not on filedocumented in this encounter Care Teams Nicker And Breaker Relationship Specialty Start Date End Date Po Coats MD PCP - General 08/07/12 [address] [place] [address] documented as of this encounter
--- OUTSIDE RECORDS SUMMARY | 2022-01-20 08:13 | XMS_ITS | Encounter Summary ---
:[address] [facility] Address [address] [address] Care Team Providers Name Role Phone Po Coats MD Primary Care Provider Encounter Details Date Type Department Care Team Description 01/03/2016 Office Visit [facility] Ghulam Holloway, [address] [facility] C-PED [place], [place] [address] Social History Tobacco Use Types Packs/Day Years [...] documented as of this encounter Progress Notes Ghulam Holloway, C-PED - 01/03/2016 8:52 AM CDT Patient Name: Raul Dickson : 1950 Date of Visit: 01/03/2016 ORTHOTICS - L.E. - FO FITTING CUSTOM FABRICATED Custom Fabricated Device: Custom Fabricated Foot Orthotic Discussed the following paper work: consent form, product instructions, Medicare Proof of Delivery and ABN Received signatures and gave copies to patient: yes Educated patient on wear and care, and on donning and doffing: yes Discussed treatment plan, methods, expectations, and outcomes with patient: n/a Please chose outcomes as discussed: reduce pain, increase comfort and enhancing function Plan of Care: Patient to contact if questions or concerns Patient has appropriate depth inlay shoes: n/a ILSA Davalos documented in this encounter Plan of Treatment Not on filedocumented as of this encounter Visit Diagnoses Not on filedocumented in this encounter Care Teams Tempering Oven Operator Relationship Specialty Start Date End Date Po Coats MD PCP - General 08/07/12 [address] [place] [id number] documented as of this encounter
--- OUTSIDE RECORDS SUMMARY | 2022-01-20 08:13 | XMS_ITS | Encounter Summary ---
:1950 Author Organization [employer] Address [address], [place] [address] Care Team Providers Name Role Phone Po Coats MD Primary Care Provider Reason for Visit Reason Comments Eye Exam Encounter Details Date Type Department Care Team Description 08/21/2016 Office Visit Pj Magana Examinati on of eyes and vision (Primary Dx); Ophthalmology OD Hypermetropia not needing correction, bi lateral; [address] [address] [place] [address] [place], [place] [phone] [id number] Social History Tobacco Use Types Packs/Day Years [...] documented as of this encounter Progress Notes Pj Piedra, OD - 08/21/2016 9:07 AM CDT REVIEW: ?? Raul Dickson presents for an eye exam. Personally reviewed HPI notes, medical history, medications, and allergies GENERAL MEDICAL OBSERVATION: ?? Patient alert, oriented, pleasant. No obvious physical distress ASSESSMENT: ?? Examination of eyes and vision ?? 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 Presbyopia Trace incipient cataract in both eyes not having any measurable effect on best corrected visual acuity Minor eyebrow ptosis, dermatochalasis, vitreous floaters - not causing functional or symptomatic issues PLAN: Discussed findings with patient Watch for changes Spectacle Rx written in forms MR and near only. 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
--- OUTSIDE RECORDS SUMMARY | 2022-01-20 08:13 | XMS_ITS | Encounter Summary ---
:1950 Author Organization [employer] Address [address] [place] [address] Care Team Providers Name Role Phone Po Coats MD Primary Care Provider Reason for Visit Procedure/Equipment (Routine) - Incomplete Specialty Diagnoses / Procedures Referred By Contact Refer red To Contact Diagnoses Acute pain of right shoulder Bursitis of right shoulder Calcific tendinitis of right shoulder Pierre Robles MD Procedures XR Shoulder Rt 2+ Views [address] [facility] [address] [address] Referral ID Status Reason Start Date Expiration Date Visits V isits Requested Authorized [id number] Incomplete 07/22/2017 10/21/2018 1 1 Encounter Details Date Type Department Care Team Description 07/22/2017 Imaging [facility] Pierre Robles MD Neck pain [address] [facility] [address] [facility] [address] [address] [place] [id number] [phone] (Wo rk) Social History Tobacco Use Types [...] Date/Time Associated Diagnosis Comme nts XR SHOULDER RT 2+ Routine 07/22/2017 11:21 AM Neck pain Res ults for this VIEWS CDT procedure are i n the results section. documented in this encounter Results XR Shoulder Rt 2+ Views (07/22/2017 11:21 AM CDT) Anatomical Region Laterality Modality Upper Extremity, Shoulder Digital Radiog inge Specimen (Source) Anatomical Location Collection Method / Collectio n Time Received Time / Laterality Volume Narrative 07/23/2017 10:54 AM CDT Four views of the right shoulder. ?? Indication: ??Pain. ?? Results: ??Degenerative changes with lionel cification and subacromial spurring on the right. ??No acute cortical defect s. Pierre Robles MD RAD GD documented in this encounter Visit Diagnoses Diagnosis Neck pain Cervicalgia documented in this encounter Care Teams Health Care / Medical Job Titles Relationship Specialty Start Date End Date Po Coats MD PCP - General 08/07/12 [address] [place] [address] documented as of this encounter
--- OUTSIDE RECORDS SUMMARY | 2022-01-20 08:13 | XMS_ITS | Encounter Summary ---
:1950 Author Organization [facility] Address [address] [place] [address] Care Team Providers Name Role Phone Po Coats MD Primary Care Provider Reason for Visit Reason Comments Abdominal Pain Encounter Details Date Type Department Care Team Description 05/19/2016 [facility]-Nette An culitis of Encounter Care Gabrielle Romeo MD large intestine [address] without per foration or Drive [address] abscess without [place], [place] bleeding [phone] [id number] Social History Tobacco Use Types Packs/Day Years [...] Sign Reading Time Taken Comments Blood Pressure 142/87 05/19/2016 12:45 PM FLOWER CHENILLER Pulse 68 05/19/2016 12:45 PM FLOWER CHENILLER Temperature 37.1 ??C (98.7 ??F) 05/19/2016 12:45 PM FLOWER CHENILLER Respiratory Rate 16 05/19/2016 12:45 PM FLOWER CHENILLER Oxygen Saturation - - Inhaled Oxygen Concentration - - Weight - - Height - - Body Mass Index - - documented in this encounter Discharge Instructions AttachmentsThe following attachments cannot be sent through Care Everywhere. DIVERTICULITIS (CHADIAN)documented in this encounter Medications at Time of Discharge Medication Sig Dispensed Refills Start Date End Date aspirin EC 81 MG enteric Take 1 tablet by 100 tablet 3 01/08 coated tabletIndications: mouth daily (every STU BANSAL E Sat 24 hours). 2014 7:16 AM Held asa times one week in prep for colonoscopy ANDREW MELENDEZ SatJun 11, 2014 12:54 PM taking magnesium 250 MG Take 250 mg by 0 12/25/2013 mouth daily (every 24 hours). Multiple Vitamins-Minerals Take 1 tablet by 0 03/2014 (MULTIVITAMIN ADULT OR) mouth daily (every 24 hours). Probiotic Product Take by mouth. 0 (ACIDOPHILUS/GOAT MILK) ciprofloxacin (CIPRO) 500 Take 1 Tab by 10 Tab 0 017 05/29/2016 MG tablet mouth two times a day for 10 days. metroNIDAZOLE (FLAGYL) 500 Take 1 Tab by 30 Tab 0 201605/29/2016 MG tablet mouth three times a day for 10 days. atorvastatin (LIPITOR) 10 Take 20 mg by 0 05/31/2016 MG tablet mouth. atorvastatin (LIPITOR) 20 Take 1 tablet by 90 tablet 3 04/1605/21/2016 MG tabletIndications: mouth daily (every Hyperlipidemia (HRC) 24 hours). documented as of this encounter ED Notes Gabrielle Stacy MD - 05/19/2016 1:25 PM CST Subjective: Raul Dickson is a 65 y.o. old male with hx of diverticulitis x 3 times reporting right flank pain for the last 2 days. No fever but pain is getting worse even with movement. No diarrhea, no fever. No blood with stools. Has been able to tolerate some food but his appetite has decreased. Last time he was treated symptomatically with cipro + flagyl and he responded well to treatment. He also Has dx of hyperlipidemia and sleep apnea Objective: BP 142/87 mmHg Pulse 68 Temp(Src) 37.1 ??C (98.7 ??F) (Oral) Resp 16 GENERAL: Patient is in no acute distress, resting comfortably, cooperative PSYCH: alert and oriented times 3. HEENT: Hearing is intact to spoken word. Speech is clear. RESPIRATORY: Breathing is regular & unlabored while sitting. CV: RRR. No murmurs. ABD: soft. Normal BS. ttp over left flank and pelvic area. No rebound. Assessment: 1. Diverticulitis of large intestine without perforation or abscess without bleeding Plan: Start ciprofloxacin and metronidazole as per orders. Follow up with primary care if symptoms fail to improveor new worrisome symptoms start. Patient instructed to call or return to if these symptoms worsen. she is agreeable to the treatment plan and follow up evaluation. Patient's questions were answered. Gabrielle Stacy MD ER CHENILLER documented in this encounter Plan of Treatment Not on filedocumented as of this encounter Visit Diagnoses Diagnosis Diverticulitis of large intestine withou t perforation or abscess without bleeding Diverticulitis of colon (without mention of hemorrhage) Triage Assessment Note - Connie Colin RN - 05/19/2016 12:42 PM CST States he is having a flare up of diverticulitis beginning last night. Pain is left abd. ER CHENILLER documented in this encounter Care Teams Wax Blender Relationship Specialty Start Date End Date Po Coats MD PCP - General 08/07/12 [address] [place] [id number] documented as of this encounter
--- OUTSIDE RECORDS SUMMARY | 2022-01-20 08:13 | XMS_ITS | Encounter Summary ---
:1950 Author Organization [facility] Address [address], [place] [address] Care Team Providers Name Role Phone Po Coats MD Primary Care Provider Reason for Visit Reason Comments GROIN PAIN Encounter Details Date Type Department Care Team Description 07/01/2016 Hospital Encounter [facility] Denton Beltran eft lateral Care EMD abdominal pain [id number] [place] [phone] Social History Tobacco Use Types Packs/Day Years [...] Sign Reading Time Taken Comments Blood Pressure 142/84 07/01/2016 8:08 AM CDT Pulse 64 07/01/2016 8:08 AM CDT Temperature 36.5 ??C (97.7 ??F) 07/01/2016 8:08 AM CDT Respiratory Rate 16 07/01/2016 8:08 AM CDT Oxygen Saturation - - Inhaled Oxygen Concentration - - Weight - - Height - - Body Mass Index - - documented in this encounter Medications at Time of Discharge Medication Sig Dispensed Refills Start Date End Date aspirin EC 81 MG enteric Take 1 tablet by 100 tablet 3 01/08 coated tabletIndications: mouth daily (every ROBASSE, STU E Sat 24 hours). 2014 7:16 AM Held asa times one week in prep for colonoscopy ANDREW MELENDEZ SatJun 11, 2014 12:54 PM taking magnesium 250 MG Take 250 mg by 0 12/25/2013 mouth daily (every 24 hours). Multiple Vitamins-Minerals Take 1 tablet by 0 03/2014 (MULTIVITAMIN ADULT OR) mouth daily (every 24 hours). Probiotic Product Take by mouth. 0 (ACIDOPHILUS/GOAT MILK) amoxicillin-clavulanate Take 1 Tab by 14 Tab 0 7 07/08/2016 (AUGMENTIN) 875-125 mg per mouth two times a tablet day for 7 days. atorvastatin (LIPITOR) 20 Take 1 Tab by 90 Tab 2 017 03/06/2017 MG tabletIndications: mouth daily. Hyperlipidemia, unspecified hyperlipidemia type (HRC) documented as of this encounter ED Notes Denton Beltran MD - 07/01/2016 9:36 AM CDT NAME: NICOLETTE RICE MR#: [id number] CSN: [id number] AUTHENTICATING CLINICIAN: Denton Beltran MD CONFIRM #: [id number] LOC: 520 URGENT CARE PROGRESS NOTE DATE OF VISIT: 07/01/2016 : 1950 CHIEF COMPLAINT: Left lower quadrant pain. HISTORY OF PRESENT ILLNESS: The patient has had left lower quadrant pain for the past 24 hours. He describes it as a 3/10. He describes it as cramping. It is worse when sitting, and does improve when he stands up. He has had normal bowel movements. No fevers, chills, sweats, or flu-like symptoms. The patient did have emergent diverticulitis surgery, colon resection 2 weeks ago. He did not need acolostomy. He has been recovering well from that surgery. REVIEW OF SYSTEMS: The remainder of pertinent general, GI , respiratory, and CV review of systems is negative. PAST MEDICAL/SOCIAL HISTORY: Reviewed in Epic. PHYSICAL EXAM: Pleasant male in no apparent distress. VITAL SIGNS: [facility]. CV: Regular rate and rhythm. No murmurs, gallops, or heaves. LUNGS: Clear to auscultation without retraction. ABDOMEN: Positive bowel sounds. Soft, nontender. No mass. No organomegaly. He has some tenderness with deep palpation in the left lower quadrant. There is no rebound or guarding there. No inguinal adenopathy. No hernia. His pain does seem to be right over an incisional site for a drain from hi surgery. That does seem to be healing well. CRP, CBC and urinalysis are normal. IMPRESSION: Left lower quadrant pain. Differential would include muscular injury or early diverticulitis. PLAN: 1.Will treat with Augmentin 875 mg p.o. b.i.d. for 7 days. 2.Continue with residual diet. 3.Tylenol or ibuprofen. 4.I expect this to resolve within the next 5 to 7 days. He will follow up with his primary care physician in 1 week to assess his clinical progress. 5.Indications for urgent re-evaluation were reviewed, including increasing abdominal pain, fever, chills, or sweats. JEJ:MEDQ C: CONFIRM #: [id number] documented in this encounter Plan of Treatment Not on filedocumented as of this encounter Procedures Procedure Name Priority Date/Time Associated Comments Diagnosis COMPLETE BLOOD STAT 07/01/2016 8:28 AM Left lateral Results for this COUNT-W/DIFF CDT abdominal pain procedure are in the results section. DIFFERENTIAL STAT 07/01/2016 8:28 AM Results f or this CDT procedure are i n the results section. C-REACTIVE PROTEIN STAT 07/01/2016 8:28 AM Left lateral Res ults for this CDT abdominal pain procedure are in the results section. URINALYSIS STAT 07/01/2016 8:20 AM Left lateral Results f or this ROUTINE(MICRO IF POS) CDT abdominal pain proc edure are in the results section. documented in this encounter Results Differential (07/01/2016 8:28 AM CDT) athologist Signature Absolute 5.8 1.8 - 8.0 PN SOFT Neutrophils k/cmm Absolute 2.4 1.1 - 4.0 PN SOFT Lymphocytes k/cmm Absolute 0.8 0.2 - 0.8 PN SOFT Monocytes k/cmm Absolute 0.3 0.0 - 0.5 PN SOFT Eosinophils k/cmm Absolute 0.1 0.0 - 0.2 PN SOFT Basophils k/cmm Immature 0.4 0.0 - 0.5 PN SOFT Granulocytes % Specimen Anatomical Collection Method Collection Time Receive d Time (Source) Location / / Volume Laterality 07/01/2016 8:28 AM 7 8:28 CDT AM CDT Narrative PN SOFT - 07/01/2016 8:39 AM CDT Performed at [facility], [facility] [address] [place] [address] CLIA number [id number] Denton Beltran MD LAB_1 Performing Organization Address [facility] Phon e Number PN SOFT [address] [place] [address] Complete Blood Count W/Diff (CBC) (07/01/2016 8:28 AM CDT) athologist Signature White Blood Cell 9.3 3.8 - 11.0 PN SOFT Count k/cmm Red Blood Cell 5.17 4.20 - PN SOFT Count 5.90 m/cmm Hemoglobin 15.4 13.4 - PN SOFT 17.5 g/dL Hematocrit 45.4 39.0 - PN SOFT 51.0 % Mean Corpuscular 87.8 80.0 - PN SOFT Volume 100.0 fL RDW 13.2 11.0 - PN SOFT 15.0 % Platelet Count 215 140 - 450 PN SOFT k/cmm Specimen Anatomical Collection Method Collection Time Receive d Time (Source) Location / / Volume Laterality 07/01/2016 8:28 AM 7 8:28 CDT AM CDT Narrative PN SOFT - 07/01/2016 8:39 AM CDT Performed at [facility], [address] [place] [address] CLIA number [id number] Denton Beltran MD LAB_1 Performing Organization Address [facility] Phon e Number PN SOFT [address] [place] [address] C Reactive Protein (CRP) (07/01/2016 8:28 AM CDT) P athologist Signature CRP <0.5 0.0 - 0.5 PN SOFT mg/dL Specimen Anatomical Collection Method Collection Time Receive d Time (Source) Location / / Volume Laterality 07/01/2016 8:28 AM 7 8:28 CDT AM CDT Narrative PN SOFT - 07/01/2016 9:44 AM CDT Performed at [facility], [facility] [address] [place] [address] CLIA number [id number] Denton Beltran MD LAB_1 Performing Organization Address [facility] Phon e Number PN SOFT [address] [place] [address] (ABNORMAL) Urinalysis Routine(Micro If Pos) (UR) (07/01/2016 8:20 AM CDT) Patholo gist Method Time Signature Urine Type URINE:clean PN SOFT cat Turbidity Clear Clear PN SOFT U BILI Negative Negative PN SOFT Blood Urine Negative Neg - Trace PN SOFT Glucose, Negative Neg-30 PN SOFT Qualitative U mg/dL Ketones Trace (A) Negative PN SOFT Leukocyte Negative Negative PN SOFT Esterase Urine Nitrite Urine Negative Negative PN SOFT pH Urine 7.0 5.0 - 8.0 PN SOFT Protein Urine Negative Neg - Trace PN SOFT mg/dL U Specific 1.015 1.005 - PN SOFT [place] 1.030 Urobilinogen Negative Negative PN SOFT Urine Eu/dL Specimen Anatomical Collection Method Collection Time Receive d Time (Source) Location / / Volume Laterality Urine 07/01/2016 8:20 AM 7 8:32 CDT AM CDT Narrative PN SOFT - 07/01/2016 8:33 AM CDT Performed at [facility], [facility] [address] [place] [address] CLIA number [id number] Denton Beltran MD LAB_1 Performing Organization Address [facility] Phon e Number PN SOFT [address] [place] [address] documented in this encounter Visit Diagnoses Diagnosis Left lateral abdominal pain Abdominal pain, unspecified site Triage Assessment Note - Disha Hong RN - 07/01/2016 8:06 AM CDT Pt reports left-sided groin pain starting last night. No known injury. Pt had surgery for diverticulitis 05/31/16 at [facility]. Pt denies urinary sx, fever, chills, body aches documented in this encounter Care Teams C.O.D. Biller Relationship Specialty Start Date End Date Po Coats MD PCP - General 08/07/12 [address] [place] [address] documented as of this encounter
--- OUTSIDE RECORDS SUMMARY | 2022-01-20 08:13 | XMS_ITS | Encounter Summary ---
:1950 Author Organization [facility] Address [address] [address] Care Team Providers Name Role Phone Po Coats MD Primary Care Provider Reason for Visit Reason Comments Abdominal Pain Encounter Details Date Type Department Care Team Description 05/31/2016 Hospital Encounter [facility] Yuki Sanchez Left lower quadrant pain; Care EZINA History of diverticulitis [address] [facility] [address] [place] [address] [phone] Social History Tobacco Use Types Packs/Day Years [...] Sign Reading Time Taken Comments Blood Pressure 169/86 05/31/2016 6:48 PM PADDED [employer]ODU[employer] INSPECTOR TRIMMER Pulse 70 05/31/2016 6:48 PM PADDED PRODU[employer] INSPECTOR TRIMMER Temperature 36.4 ??C (97.6 ??F) 05/31/2016 6:48 PM PADDED PRODUCTS INSPECTOR TRIMMER Respiratory Rate 16 05/31/2016 6:48 PM PADDED PRODUCTS INSPECTOR TRIMMER Oxygen Saturation - - Inhaled Oxygen Concentration [...] Product Take by mouth. 0 (ACIDOPHILUS/GOAT MILK) atorvastatin (LIPITOR) 20 Take 1 Tab by 90 Tab 2 017 03/06/2017 MG tabletIndications: mouth daily. Hyperlipidemia, unspecified hyperlipidemia type (HRC) documented as of this encounter ED Notes Yuki Sanchez PA-C - 05/31/2016 8:21 PM CST [facility] Patient: Raul Dickson Date of : 1950 (65 y.o.) Subjective CHIEF COMPLAINT: Chief Complaint Patient presents with ??? Abdominal Pain HISTORY OF PRESENT ILLNESS: Raul Dickson is a 65 y.o.male who presents to Urgent Care for evaluation of abdominal pain. Patientwas seen on May 19, 2016 with complaints of left lower quadrant pain. He is a known history of diverticulitis. He stated at that time symptoms felt exactly similar to a diverticulitis flare. He wastreated with ciprofloxacin and metronidazole and recently finished his course yesterday morning. He states he was asymptomatic until this afternoon when he started to develop left lower quadrant pain once again. He states this is progressively worsened throughout the day and is much worse than what itwas when he initially presented. He states ever since he has had onset of diverticulitis symptoms heis having looser stools. However over the last few weeks has had decreased frequency of bowel movements. His last bowel movement was this evening. He denies fever, chills, vomiting, hematochezia, melena, lightheadedness, dizziness, UTI symptoms, or other physical complaints. He tried taking an aspirinwithout relief of symptoms. Again he has a known history of diverticulitis. He has not had any consultations related to these flares including any prior history of perforation. He states he has had 3 episodes of diverticulitis as of recent. Past Medical History: Patient Active Problem List Diagnosis ??? Lumbago (HRC) ??? Hyperlipidemia (HRC) ??? Complex sleep apnea syndrome ??? Adenoma of large intestine Adverse Drug Reactions: Review of patient's allergies indicates no known allergies. Medications: Acidophilus/Goat Milk, Multiple Vitamins-Minerals, aspirin EC, atorvastatin, and magnesium REVIEW OF SYSTEMS: Pertinent positive and negatives as above in HPI. Objective PHYSICAL EXAM: VITALS: BP 169/86 mmHg Pulse 70 Temp(Src) 36.4 ??C (97.6 ??F) (Oral) Resp 16 GENERAL: alert, well appearing, and in no distress OPTHALMIC: pupils equal and reactive, extraocular eye movements intact, sclera anicteric CARDIOVASCULAR: normal rate, regular rhythm, normal S1, S2, no murmurs, rubs, clicks or gallops RESPIRATORY: clear to auscultation, no wheezes, rales or rhonchi, symmetric air entry GASTROINTESTINAL: tenderness noted In the left lower quadrant with mild rebound and guarding. DERMATOLOGIC: normal coloration and turgor, no rashes, no suspicious skin lesions noted PSYCHIATRIC: normal mood, behavior, speech, dress, motor activity, and thought processes LABORATORY TESTING: No results found for this visit on 05/31/16. RADIOLOGY: No results found. I personally reviewed all relevant studies, including results of diagnostic labs and imaging. INTERVENTIONS: Medications - No data to display Assessment IMPRESSION: 1. Left lower quadrant pain 2. History of diverticulitis Plan Discussed findings of today's visit with the patient. Patient recently seen and treated for diverticulitis with a known history of diverticulitis. Patient finished last dose of Cipro oxacillin as well as metronidazole yesterday and had repeat worsening symptoms today. Patient was quite tender on exam with mild rebound and guarding. Discussed with patient concern for possible perforation or even abscess. CT unavailable here tonight in urgent care. Discussed she would be more appropriately served in the emergency department for further workup. Discussed case with [facility] emergency department physician who graciously agreed to accept this patient. Further workup and care is per the medical expert opinion of emergency department physician. Patient agreeable to above-mentioned care plan questions answered. Patient discharged [facility] emergency department in stable condition with driving. Patient Discharge Medications & Instructions: Medications Prescribed this Visit None Discharge Instructions None Yuki Sanchez PA-C ED PRODUCTS INSPECTOR TRIMMER documented in this encounter Plan of Treatment Not on filedocumented as of this encounter Visit Diagnoses Diagnosis Left lower quadrant pain Abdominal pain, left lower quadrant History of diverticulitis Triage Assessment Note - Sari Nichols RN - 05/31/2016 6:46 PM CST Left side abdominal pain - just got off antibiotics for diverticulitis yesterday and the pain started again today - worse than before. Denies nausea, vomiting, fever. Having a little diarrhea ED PRODUCTS INSPECTOR TRIMMER documented in this encounter Care Teams Leaf Tinner Relationship Specialty Start Date End Date Po Coats MD PCP - General 08/07/12 [address] [address] documented as of this encounter
--- OUTSIDE RECORDS SUMMARY | 2022-01-20 08:13 | XMS_ITS | Encounter Summary ---
:1950 Author Organization [email or web address] Address [address] [place] [address] Care Team Providers Name Role Phone Po Coats MD Primary Care Provider Reason for Referral (Routine) - Closed Specialty Diagnoses / Procedures Referred By Contact Refer red To Contact Diagnoses Acute pain of right shoulder Bursitis of right shoulder Calcific tendinitis of right shoulder Pierre Robles MD Procedures Triamcinolone Acet Inj Nos: (per 10 mg) [address] [place] [address] Referral ID Status Reason Start Date Expiration Date Visits Requ ested Visits Authorized [id number] Closed 07/23/2017 10/22/2018 1 1 Procedure/Equipment (Routine) - Incomplete Specialty Diagnoses / Procedures Referred By Contact Refer red To Contact Diagnoses Acute pain of right shoulder Bursitis of right shoulder Calcific tendinitis of right shoulder Pierre Robles MD Procedures XR Shoulder Rt 2+ Views [address] [place] [address] Referral ID Status Reason Start Date Expiration Date Visits V isits Requested Authorized [id number] Incomplete 07/22/2017 10/21/2018 1 1 Reason for Visit Reason Comments Neck Pain Raidates to shoulder onset s zayra 07/15/16 has been using traction Encounter Details Date Type Department Care Team Description 07/22/2017 [facility] Pierre Robles Acute p ain of right shoulder (Primary Dx); Urgent Care Bursitis of right shoulder; [address] Calcific tendinitis of right shoulder [place], [place] [address] [place] [phone] (Wo rk) Social History Tobacco Use Types [...] Pressure - - Pulse - - Temperature 36.8 ??C (98.2 ??F) 07/22/2017 10:36 AM CDT Respiratory Rate - - Oxygen Saturation - - Inhaled Oxygen Concentration - - Weight 120.2 kg (265 lb) 07/22/2017 10:36 AM CDT Height 175.3 cm (5' 9) 07/22/2017 10:36 AM CDT Body Mass Index 39.13 07/22/2017 10:36 AM CDT documented in this encounter Patient Instructions Patient InstructionsCaesar Marx - 07/22/2017 10:[address] Pierre Robles MD Sports & Orthopaedic Medicine [facility] Medication Requests: Prescriptions are not filled on Weekends or on Weekdays after 3:00PM For all medication refills: Request a refill using MyChart or contact your Pharmacy Acute [facility] Nurse Line: Please contact Acute Injury Clinic Nurse line for all medical requests and questions at [phone] MRI Scheduling: To schedule an MRI at [facility] please call [phone] Paperwork Requests: Questions regarding FMLA or disability paperwork please call [phone] Phone lines are answered 8AM to 5PM Saturday - Saturday Workers??? Compensation: Please contact our department for any Work Comp concerns at Email: [email or web address] Right shoulder impingement The right shoulder was injected with Kenalog-40 and lidocaine. Avoid Strenuous Activity for the remainder of the day and avoid activities that cause pain for one to two weeks following the injection. Signs and Symptoms to watch for: If you have any redness, warmth or increasing pain at the site of the injection or develop a fever, please call [phone] documented in this encounter Progress Notes Pierre Robles MD - 07/22/2017 11:39 AM CDT NAME: NICOLETTE RICE MR#: [id number] CSN: [id number] AUTHENTICATING CLINICIAN: Pierre Robles MD CONFIRM #: [id number] LOC: 711 CLINIC PROGRESS NOTE DATE OF VISIT: 07/22/2017 : 1950 CHIEF COMPLAINT: Right shoulder pain and weakness. HPI: This is a 66-year-old right-hand dominant male who presents with pain and [facility], which started with minimal trauma on 07/15, one week ago. He has had previous rotator cuffrepair several years ago but has had no pain with it until now. REVIEW OF SYSTEMS: No fevers, chills, numbness or tingling. No joint pain or swelling in other joints. CURRENT MEDICATIONS: Reviewed on EMR. ALLERGIES: Reviewed on EMR. PAST MEDICAL HISTORY: Right shoulder rotator cuff tear, hyperlipidemia, large intestine adenoma, low back pain, sleep apnea. PAST SURGICAL HISTORY: Right rotator cuff repair many years ago. SOCIAL HISTORY: He is retired. He does not exercise regularly and denies tobacco. PHYSICAL EXAM: Temperature is 98.2, height 5 feet 9 inches, weight 265 pounds. Pain 4 to 8 out of 10. In general, he is alert and pleasant and in no acute distress. On inspection of his right shoulder, he has well-healed postoperative scars. There is tenderness over the subacromial and subdeltoid spaces. Motion is limited with forward flexion, lateral abduction, internal rotation, and cross-body adduction on the right compared to the left. Impingement signs are positive. He has guarding and weakness with rotator cuff strength testing on the right compared to the left. Sensation is intact. IMAGING STUDIES: Four views of the right shoulder independently reviewed. Indication: Pain. Results: Degenerative changes with calcification and subacromial spurring on the right. No acute cortical defects. ASSESSMENT: Right shoulder subacromial/subdeltoid bursitis and impingement with calcification status post rotator cuff repair in the distant past. PLAN: I reviewed the x-ray findings and diagnosis with the patient. I suggested a subacromial cortisone injection today. I gave him a patient education handout with home treatment. He can call to arrange a right shoulder MRI to evaluate for more significant rotator cuff tendinopathy if his symptoms persist or worsen. PROCEDURE: The patient was positioned and prepped. Risks and benefits of a right shoulder subacromial cortisoneinjection were explained. Next, 40 mg of Kenalog and 4 mL of 1% lidocaine without epinephrine were injected using a posterior approach to the right subacromial space without complication. The area was cleansed and bandaged, and the patient tolerated the procedure well. SDW:MEDQ C: R:07/22/17 11:44 CONFIRM#:[id number] documented in this encounter Plan of Treatment Not on filedocumented as of this encounter Results XR Shoulder Rt 2+ [...] documented in this encounter Visit Diagnoses Diagnosis Acute pain of right shoulder - Primary Bursitis of right shoulder Disorders of bursae and tendons in shoul sofi region, unspecified Calcific tendinitis of right shoulder Calcifying tendinitis of shoulder Neck pain Cervicalgia documented in this encounter Care Teams Corporate Administrative Assistant Relationship Specialty Start Date End Date Po Coats MD PCP - General 08/07/[address] [place] [address] documented as of this encounter
--- OUTSIDE RECORDS SUMMARY | 2022-01-20 08:13 | XMS_ITS | Encounter Summary ---
:1950 Author Organization [employer] Address [address], [place] [address] Care Team Providers Name Role Phone Po Coats MD Primary Care Provider Reason for Referral Procedure/Equipment (Routine) - Incomplete Specialty Diagnoses / Procedures Referred By Contact Refer red To Contact Diagnoses Annual physical exam Po Coats MD Procedures US Abd Aorta [address] [place] [address] Referral ID Status Reason Start Date Expiration Date Visits V isits Requested Authorized [id number] Incomplete 09/05/2016 12/05/2017 1 1 Reason for Visit Reason Comments Well Visit fasting for labs Cough since Saturday Encounter Details Date Type Department Care Team Description 09/05/2016 Office Visit [facility] Po Coats, An nual physical exam (Primary Dx); Medicine Cough [address] [address] [place] [address] [place] [phone] (Wo rk) Social History Tobacco Use Types [...] Sign Reading Time Taken Comments Blood Pressure 136/80 09/05/2016 8:55 AM CDT Pulse 62 09/05/2016 8:55 AM CDT Temperature 37 ??C (98.6 ??F) 09/05/2016 8:55 AM CDT Respiratory Rate - - Oxygen Saturation - - Inhaled Oxygen Concentration - - Weight 121.1 kg (267 lb) 09/05/2016 8:55 AM CDT Height 172.7 cm (5' 8) 09/05/2016 8:55 AM CDT Body Mass Index 40.6 09/05/2016 8:55 AM CDT documented in this encounter Progress Notes Po Coats MD - 09/05/2016 9:00 AM CDT SUBJECTIVE: 66 y.o. male presents for a routine preventive physical exam. Past Medical History Reviewed and updated in EMR. Past Surgical History: Procedure Laterality Date ??? BLADDER SURGERY 2012 ??? COLON SURGERY 05/2016 perforated diverticulitis ??? SHOULDER SURGERY Current Outpatient Prescriptions Medication Sig Note Dispense Refill ??? aspirin EC 81 MG enteric coated tablet Take 1 tablet by mouth daily (every 24 hours). 100 tablet3 ??? atorvastatin (LIPITOR) 20 MG tablet Take 1 Tab by mouth daily. 90 Tab 2 ??? azithromycin (ZITHROMAX) 250 MG tablet Take 2 tablets by mouth on day 1, then 1 tablet daily on days 2 - 5. 6 Tab 0 ??? magnesium 250 MG Take 250 mg by mouth daily (every 24 hours). ??? Multiple Vitamins-Minerals (MULTIVITAMIN ADULT OR) Take 1 tablet by mouth daily (every 24 hours). ??? naproxen sodium (ANAPROX) 220 MG tablet Take 220 mg by mouth two times a day with meals. ??? Probiotic Product (ACIDOPHILUS/GOAT MILK) Take by mouth. 05/19/2016: Received from: [facility] ??? psyllium (KONSYL) 30.9 % powder Take by mouth daily. No current facility-administered medications for this visit. No Known Allergies Family History Problem Relation Age of Onset ??? Cancer Father lung ??? Early Brother ??? Early Brother infant ??? Retinal Detachment Mother ??? Cataract Mother ??? Glaucoma Mother ??? Abdominal Aortic Aneurysm Mother ??? Cataract Paternal Grandfather ??? Diabetes Negative Family History ??? Macular Degeneration Negative Family History ??? Amblyopia/Strabismus Negative Family History Social History Social History ??? Marital status: Spouse name: chris ??? Number of children: 2 ??? Years of education: 14 Occupational History ??? retired Social History Main Topics ??? Smoking status: Never Smoker ??? Smokeless tobacco: Never Used ??? Alcohol use Yes Comment: rare ??? Drug use: Not on file ??? Sexual activity: Not on file Other Topics Concern ??? Not on file Social History Narrative Review of Systems: With the exception of any items noted above, the remainder of complete ROS is negative. OBJECTIVE: Vital Signs: Vital Signs taken today were reviewed on the flowsheet in the Electronic Medical Record. General: Patient alert, in NAD. HEENT: PERRLA. Bilateral TM's, external canals, oropharynx normal. Neck: Supple, without thyromegaly or mass. Upper Extremities: FROM with good strength, no lesions or deformities. CV: RRR without murmurs, rubs or gallops. Resp: Clear to auscultation without crackles, wheezes or distress. Abdomen: Soft, non-tender, without hepatosplenomegaly, masses, or hernias. Lymphatic: No neck, supraclavicular or groin lymphadenopathy. Lower Extremities: FROM, normal gait without edema, lesions, or deformity. Skin: Benign lesions. Rectal: Declined. PSA requested. Neuro: CN II-XII, motor & sensory function all intact. Psychiatric: Alert & oriented with normal affect and insight, does not appear depressed or anxious. ASSESSMENT: Routine preventive exam. See Problem List on Patient Health Profile. PLAN: -Recommended annual preventive visit, sooner PRN any concerns. -Full set of screening labs ordered. We will notify the patient of lab results. -Immunizations reviewed and updated in Health Profile of EMR. Discussed with patient: -Recommended a healthy diet. Referral offered for counseling. -The benefits of regular exercise. -Appropriate weight and BMI. Referral offered for counseling. -Appropriate alcohol usage and harms of misuse. -Reporting of any symptoms that may be concerning for depression. -HIV and Hepatitis C screening offered to patients with concerns or risk factors. -Recommended routine eye exam. -Benefits of taking a baby aspirin 81mg daily. -Colonoscopy due: . -AAA screening: ordered. Subjective- A 66-year-old male who presents to clinic for a physical but also his concerns 1 ongoing cough. The cough started about one week ago. He thinks he may have had some chills but no obvious fevers. Temperature today was normal. Slight wheezing but no shortness of breath or chest pain. Cough is productiveof yellow phlegm. No blood. His symptoms are getting better. His has the same cough. Assessment plan- Ongoing cough and bronchitis-lungs are clear on exam. We discussed current guidelines which make treatment with antibiotics optional. Patient states Zpaks have worked well for him in the past and he would like a refill. Prescription was given as requested. Call or return to clinic if not improving quickly as expected. documented in this encounter Plan of Treatment Not on filedocumented as of this encounter Results US Abd Aorta (09/12/2016 8:26 AM CDT) Anatomical Region Laterality Modality Abdomen Ultrasound Specimen (Source) Anatomical Collection Method Collection Time Re ceived Time Location / / Volume Laterality 09/12/2016 7:59 AM CDT Impressions 09/12/2016 8:31 AM CDT IMPRESSION: ??No evidence of infrarenal abdominal aortic aneurysm. Narrative 09/12/2016 8:31 AM CDT COMPARISON: ??None. HISTORY: screening FINDINGS: ??The maximum diameter of the infrarenal aorta measures 2.6 x 2.7 cm. The bilateral common iliac arteries are normal in caliber. Procedure Note John Timmons MD - 09/12/2016For matting of this note might be different from the original. COMPARISON: None. HISTORY: screening FINDINGS: The maximum diameter of the in frarenal aorta measures 2.6 x 2.7 cm. The bilateral common iliac arteries are normal in caliber. IMPRESSION IMPRESSION: No evidence of infrarenal ab dominal aortic aneurysm. Po Coats MD RAD US Hepatitis C Antibody, with Reflex (09/05/2016 10:05 AM CDT) [facility] Method Time Signature Hepatitis C Nonreactive Nonreactive PN SOFT Antibody Specimen Anatomical Collection Method Collection Time Receive d Time (Source) Location / / Volume Laterality 09/05/2016 10:09/05/2016 AM CDT 12:40 PM CDT Narrative PN SOFT - 09/05/2016 3:25 PM [place] [address] CLIA number [id number] Po Coats MD LAB_1 Performing Organization Address [facility] e Number PN SOFT [address] [place] [address] Prostatic Specific Antigen (Screen) (09/05/2016 10:05 AM CDT) athologist Signature Prostate 1.3 0.0 - 4.0 PN SOFT Specific ng/mL Antigen Comment: The [employer] PSA Chemiluminescent immunoas say is used. Results obtained with different test met hods or kits cannot be used interchangeably. Specimen Anatomical Collection Method Collection Time Receive d Time (Source) Location / / Volume Laterality 09/05/2016 10:09/05/2016 AM CDT 12:39 PM CDT Narrative PN SOFT - 09/05/2016 3:20 PM CDT Performed at [address] [address] CLIA number [id number] Po Coats MD LAB_1 Performing Organization Address [facility] Phon e Number PN SOFT [address] [place] [address] Liver Panel(Hepatic Function Panel) (09/05/2016 10:05 AM CDT) [facility] Method Time Signature Alk Phos 116 40 - 150 PN SOFT U/L Bilirubin Total 0.6 0.2 - 1.2 PN SOFT mg/dL Bilirubin, Direct 0.3 0.0 - 0.5 PN SOFT mg/dL Protein Total, Serum 6.9 6.4 - 8.3 PN SOFT g/dL Albumin 3.6 3.4 - 5.0 PN SOFT g/dL Aspartate 22 10 - 40 PN SOFT Aminotransferase U/L Alanine 29 9 - 55 PN SOFT Aminotransferase U/L Specimen Anatomical Collection Method Collection Time Receive d Time (Source) Location / / Volume Laterality 09/05/2016 10:05 09/05/2016 AM CDT 10:04 AM CDT Narrative PN SOFT - 09/05/2016 10:31 AM CDT Performed at [facility], [address] [place] [address] CLIA number [id number] Po Coats MD LAB_1 Performing Organization Address City/[facility] Phon e Number PN SOFT [address] [place] [address] Lipid Panel and Direct LDL(If Needed) (09/05/2016 10:05 AM CDT) Analysis Performed At Patho logist Time Signature Cholesterol 154 0 - 199 PN SOFT mg/dL Triglycerides 82 4 - 149 PN SOFT mg/dL HDL Cholesterol 49 >39 mg/dL PN SOFT Cholesterol/HDL 3.1 PN SOFT Ratio Screen LDL Calculated 89 19 - 130 PN SOFT mg/dL Length Of Fast 16.0 PN SOFT Specimen Anatomical Collection Method Collection Time Receive d Time (Source) Location / / Volume Laterality 09/05/2016 10:05 09/05/2016 AM CDT 10:04 AM CDT Narrative PN SOFT - 09/05/2016 10:31 AM CDT Performed at [facility], [facility] [address] [place] [address] CLIA number [id number] Po Coats MD LAB_1 Performing Organization Address City/[facility] Phon e Number PN SOFT [address] [place] [address] [phone] (ABNORMAL) Hgb A1c (09/05/2016 10:05 AM CDT) P athologist Signature HGB A1C 5.8 (H) 4.0 - 5.6 % PN SOFT Specimen Anatomical Collection Method Collection Time Receive d Time (Source) Location / / Volume Laterality 09/05/2016 10:09/05/2016 1:07 AM CDT PM CDT Narrative PN SOFT - 09/05/2016 3:02 PM CDT Performed at [facility], [address] [place] [address] CLIA number [id number] Po Coats MD LAB_1 Performing Organization Address [facility] Phon e Number PN SOFT [address] [place] [address] Complete Blood Count-No Diff (09/05/2016 10:05 AM CDT) athologist Signature White Blood Cell 8.4 3.8 - 11.0 PN SOFT Count k/cmm Red Blood Cell 4.97 4.20 - PN SOFT Count 5.90 m/cmm Hemoglobin 14.7 13.4 - PN SOFT 17.5 g/dL Hematocrit 43.9 39.0 - PN SOFT 51.0 % Mean Corpuscular 88.3 80.0 - PN SOFT Volume 100.0 fL RDW 13.2 11.0 - PN SOFT 15.0 % Platelet Count 201 140 - 450 PN SOFT k/cmm Specimen Anatomical Collection Method Collection Time Receive d Time (Source) Location / / Volume Laterality 09/05/2016 10:05 09/05/2016 AM CDT 10:05 AM CDT Narrative PN SOFT - 09/05/2016 10:10 AM CDT Performed at [facility], [address] [place] [address] CLIA number [id number] Po Coats MD LAB_1 Performing Organization Address [facility] Phon e Number PN SOFT [address] [place] [address] (ABNORMAL) Basic Metabolic Panel (09/05/2016 10:05 AM CDT) athologist Signature Creatinine 1.00 0.73 - PN SOFT Serum 1.18 mg/dL Lab Glucose 107 (H) 70 - 100 PN SOFT mg/dL Comment: The stated glucose range is for the fast ing state. Non-fasting glucose range is 70-180 mg/d L CO2 31 22 - 31 mmol/L PN SOFT Chloride 108 98 - 109 mmol/L PN SOFT Potassium 4.3 3.5 - 5.2 mmol/L PN SOFT Sodium 145 136 - 145 mmol/L PN SOFT Blood Urea Nitrogen 12 9 - 26 mg/dL PN SOFT Calcium 9.2 8.4 - 10.2 mg/dL PN SOFT Est GFR Am >60 >60 mL/min/1.73m2 PN SOFT Est GFR Non-Afr Am >60 >60 mL/min/1.73m2 PN SOFT Comment: Normal>60, moderate decrease 30 - 59, se carmelina decrease 15 - 29, renal failure <15 mL/min/1.73 m2 NOTE: ??Choose the eGFR result above amilcar ropriate for the race of the patient. Specimen Anatomical Collection Method Collection Time Receive d Time (Source) Location / / Volume Laterality 09/05/2016 10:05 09/05/2016 AM CDT 10:04 AM CDT Narrative PN SOFT - 09/05/2016 10:31 AM CDT Performed at [facility], [address] [place] [address] CLIA number [id number] Po Coats MD LAB_1 Performing Organization Address City/State/ZIP Code Phon e Number PN SOFT [address] [place] [address] documented in this encounter Visit Diagnoses Diagnosis Annual physical exam - Primary Routine general medical examination at a health care facility Cough Annual physical exam Routine general medical examination at a health care facility Annual physical exam Routine general medical examination at a health care facility documented in this encounter Care Teams Warehouse Distribution Specialist Relationship Specialty Start Date End Date Po Coats MD PCP - General 08/07/[address] [place] [address] documented as of this encounter
--- OUTSIDE RECORDS SUMMARY | 2022-01-20 08:13 | XMS_ITS | Encounter Summary ---
:1950 Author Organization [employer] Address [address] [place] [address] Care Team Providers Name Role Phone Po Coats MD Primary Care Provider Reason for Referral (Routine) - Closed Specialty Diagnoses / Procedures Referred By Contact Refer red To Contact Diagnoses Impingement syndrome of right shoulder Zac Harden MD Procedures Triamcinolone Acet Inj Nos: (per 10 mg) [address] [facility] [place], [place] [address] Referral ID Status Reason Start Date Expiration Date Visits Requ ested Visits Authorized [id number] Closed 01/05/2019 04/05/2020 1 1 Reason for Visit Reason Comments SHOULDER PAIN Left. Chronic. Inj 08/20/18. R equesting inj. Encounter Details Date Type Department Care Team Description 01/05/2019 Office Visit TRIZac Li MD Impingement syndrome Urgent Care [address] [facility] of right shoulder [address] [place], [place] (Primary Dx) [place], [place] [address] [phone] (Wo rk) Social History Tobacco Use Types [...] Pressure - - Pulse - - Temperature 36.6 ??C (97.8 ??F) 01/05/2019 7:59 AM CDT Respiratory Rate - - Oxygen Saturation - - Inhaled Oxygen Concentration - - Weight - - Height - - Body Mass Index - - documented in this encounter Patient Instructions Patient InstructionsBaRadha dean, ATC - 01/05/2019 8:[address] Zac Harden MD Sports & Orthopaedic Medicine [facility] Medication Requests: Prescriptions are not filled on Weekends or on Weekdays after 3:00PM For all medication refills: Request a refill using [employer] or contact your Pharmacy [facility] Nurse Line: Please contact [facility] Nurse line for all medical requests and questions at [phone] MRI Scheduling: To schedule an MRI at [facility] please call [phone] Paperwork Requests: Questions regarding FMLA or disability paperwork please call [phone] Phone lines are answered 8AM to 5PM Saturday - Saturday. Workers??? Compensation: Please contact our department for any Work Comp concerns at Email: [email or web address] The left shoulder was injected with Kenalog-40 and lidocaine. Avoid Strenuous Activity for the remainder of the day and avoid activities that cause pain for one to two weeks following the injection. Signs and Symptoms to watch for: If you have any redness, warmth or increasing pain at the site of the injection or develop a fever, please call [phone] You've just had a steroid (cortisone) injection: [...] administered. documented in this encounter Progress Notes Zac Harden MD - 01/05/2019 12:00 PM CDT NAME: NICOLETTE RICE MR#: [id number] CSN: [id number] AUTHENTICATING CLINICIAN: Zac Harden MD CONFIRM #: [id number] LOC: 711 CLINIC PROGRESS NOTE DATE OF VISIT: 01/05/2019 : 1950 Nicolette Rice is a 68-year-old here for evaluation for left shoulder pain that has been bothering him over the last months. I had done a cortisone shot in the subacromial space with cortisone 08/20/2018.He got excellent relief with no pain remaining until 1 month ago when it started to gradually come back again, and now it is getting to the point where it is difficult to do his activities throughout the day and it aches at night. No injury in the meantime and no numbness or tingling. PHYSICAL EXAM: He is alert, in no acute distress. Pleasant gentleman. Examination of his left shoulder shows pain with impingement testing. Mild pain at the AC joint. Mild pain on supraspinatus testing. No pain in the external and internal rotation. No weakness. No neurologic deficits. No vascular deficits noted. Heis afebrile. ASSESSMENT AND PLAN: Left shoulder impingement with rotator cuff tendinitis. Suggested a repeat trial of cortisone since it worked well last time. We will continue with avoiding overhead activities and continue with rotator cuff strengthening. He said he wanted to proceed, so 1 mL of 40 mg of Kenalog and 6 mL of 1% lidocaine was used and injected into left shoulder in the subacromial space. No complications occurred. RTJ:MEDQ C: R:01/05/19 08:53 CONFIRM#:[id number] documented in this encounter Plan of Treatment Not on filedocumented as of this encounter Visit Diagnoses Diagnosis Impingement syndrome of right shoulder - Primary Other affections of shoulder region, not elsewhere classified documented in this encounter Care Teams Plant Maintenance Manager Relationship Specialty Start Date End Date Po Coats MD PCP - General 08/07/12 [address] [address] [place] [address] documented as of this encounter
--- OUTSIDE RECORDS SUMMARY | 2022-01-20 08:13 | XMS_ITS | Encounter Summary ---
:1950 Author Organization [email or web address] Address [address], [place] [address] Care Team Providers Name Role Phone Po Coats MD Primary Care Provider Reason for Referral (Routine) - Closed Specialty Diagnoses / Procedures Referred By Contact Refer red To Contact Diagnoses Plantar fasciitis Jerod Bird DPM Procedures Dexamethasone Sodium Phos (per 1 mg) [address] [place] [address] Referral ID Status Reason Start Date Expiration Date Visits Requ ested Visits Authorized [id number] Closed 03/05/2016 06/04/2017 1 1 INSPECTOR (Routine) - Closed Specialty Diagnoses / Procedures Referred By Contact Refer red To Contact Diagnoses Plantar fasciitis Jerod Bird DPM Procedures Triamcinolone Acet Inj Nos: (per 10 mg) [address] [place] [address] Referral ID Status Reason Start Date Expiration Date Visits Requ ested Visits Authorized [id number] Closed 03/05/2016 06/04/2017 1 1 INSPECTOR Reason for Visit Reason Comments Foot Pain Encounter Details Date Type Department Care Team Description 03/05/2016 Office Visit [facility] Jerod Bird P ain of left heel (Primary Dx); MedSurg DPM Plantar fasciitis [address] [address] [place] [address] [place] [phone] (Wo rk) Social History Tobacco Use Types [...] as of this encounter Progress Notes Jerod Bird DPM - 03/05/2016 10:09 AM CST DATE OF VISIT: 03/05/2016 SUBJECTIVE: Patient presents for follow-up. His last visit was in November 2015. He did have discomfort on his left heel for the last 6 months. I did get him new orthotics. He continues to have symptoms.His pain is worse in the morning when getting up out of bed. He also got new boots but is not been using the orthotics in his boots as he feels these may have enough support. Adverse Drug Reactions: No Known Allergies Medications: Reviewed. See Medication List in [employer] . Review of Systems: Negative for Diabetes. 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 Patient Active Problem List Diagnosis Date Noted ??? 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 Complex sleep apnea syndrome 03/31/2014 Overview Note: Setting: ASV EPAPmin 5 EPAP max 15 PSmin 0 PS max 20 Max Pressure 25 Rate auto Supplied by: [facility] PSG done: 02/08/14 AHI 106 RDI 107 Lowest O2 Sat: 79% Renew 10/04/2015 New 03/31/14 ??? Hyperlipidemia (HRC) 01/08/2014 ??? Lumbago (HRC) 09/19/2002 OBJECTIVE: Patient is neurovascularly intact. There is pain with palpation of the medial process of the plantar weightbearing surface of the left calcaneus. There is no pain over the distal fascial band or calcaneal nerve branch. No pain with [id number]-xw-kynp compression of the heel. No weakness with muscle testing of the foot ankle or lower leg. No pain with subtalar joint or ankle joint range of motion. No pain with stressing of the anterior or posterior tibial tendons. In stance loss of longitudinal arch is evident. No other abnormalities noted. His orthotics appear to be in good shape. They are partial length insert. ASSESSMENT: Left heel pain Plantar fasciitis left heel PLAN: Treatment options were discussed with the patient. I discussed the condition in great detail. The orthotics look fine. I discussed with the patient that I would like to have him wear the orthotics all of his shoes, even his new boots. He can continue to ice and stretch. I discussed other optionssuch as an injection. He is interested in the injection. I discussed an injection into the heel. [...] was discharged ambulatory and in stable condition. 10 minutes ygkv-[id number] time was spent discussing the condition and treatment in addition to the injection. Orders Placed This Encounter Procedures ??? Injection; 1 Tendon Sheath/Ligament ??? Triamcinolone Acet Inj Nos: (per 10 mg) ??? Dexamethasone Sodium Phos (per 1 mg) No orders of the defined types were placed in this encounter. (This note was created using voice recognition software and may contain some seed mill superintendent errors) INSPECTOR documented in this encounter Plan of Treatment Not on filedocumented as of this encounter Visit Diagnoses Diagnosis Pain of left heel - Primary Pain in limb Plantar fasciitis Plantar fascial fibromatosis documented in this encounter Care Teams Public Transit Specialist Relationship Specialty Start Date End Date Po Coats MD PCP - General 08/07/12 [address] [address] [address] documented as of this encounter
--- OUTSIDE RECORDS SUMMARY | 2022-01-20 08:13 | XMS_ITS | Encounter Summary ---
:1950 Author Organization [employer] Address [address] [place] [address] Care Team Providers Name Role Phone Po Coats MD Primary Care Provider Reason for Visit Procedure/Equipment (Routine) - Incomplete Specialty Diagnoses / Procedures Referred By Contact Refer red To Contact Diagnoses Left shoulder pain, unspecified chronicity Leann Amaro MD Procedures XR Shoulder Lt 2+ Views [address] [facility] [place], [place] [address] Referral ID Status Reason Start Date Expiration Date Visits V isits Requested Authorized [id number] Incomplete 01/16/2018 04/17/2019 1 1 Encounter Details Date Type Department Care Team Description 01/16/2018 Imaging [facility] Leann Amaro, Left shoulder pain, 8[address] [facility] unspecified chronicity [place], [place] [address] [address] [facility] [phone] [place] [address] (Wo rk) Social History Tobacco Use Types [...] Comme nts XR SHOULDER LT 2+ Routine 01/16/2018 11:37 AM Left shoulder pa in, Results for this VIEWS CDT unspecified procedure [...] ty documented in this encounter Care Teams Auto Transmission Mechanic Relationship Specialty Start Date End Date Po Coats MD PCP - General 08/07/12 [address] [place] [address] documented as of this encounter
--- OUTSIDE RECORDS SUMMARY | 2022-01-20 08:13 | XMS_ITS | Encounter Summary ---
:1950 Author Organization [facility] Address [address] [address] Care Team Providers Name Role Phone Po Coats MD Primary Care Provider Reason for Visit Procedure/Equipment (Routine) - Incomplete Specialty Diagnoses / Procedures Referred By Contact Refer red To Contact Diagnoses Annual physical exam Po Coats MD Procedures US Abd Aorta [address] [place] [id number] Referral ID Status Reason Start Date Expiration Date Visits V isits Requested Authorized [id number] Incomplete 09/05/2016 12/05/2017 1 1 Encounter Details Date Type Department Care Team Description 09/12/2016 Imaging [place] [facility] Po Coats MD Annual physical exam [address] [place] [address] [place] [address] [phone] (Wo rk) Social History Tobacco Use Types [...] Name Priority Date/Time Associated Diagnosis Comme nts US ABD AORTA Routine 09/12/2016 8:26 AM Annual physical exam R esults for this CDT procedure are i n the results section . documented in this encounter Results US Abd Aorta (09/12/2016 [...] ab dominal aortic aneurysm. Po Coats MD [facility] documented in this encounter Visit Diagnoses Diagnosis Annual physical exam Routine general medical examination at a health care facility documented in this encounter Care Teams Taffy Candy Maker Relationship Specialty Start Date End Date Po Coats MD PCP - General 08/07/12 [address] [place] [address] documented as of this encounter
--- OUTSIDE RECORDS SUMMARY | 2022-01-20 08:13 | XMS_ITS | Encounter Summary ---
:1950 Author Organization [facility] Address [address] [address] Care Team Providers Name Role Phone Po Coats MD Primary Care Provider Reason for Visit Reason Comments Cough Abdominal Pain Encounter Details Date Type Department Care Team Description 08/15/2016 Hospital Encounter [facility] Kirk Dawson P haryngitis, unspecified etiology; Brianna Oconnell MD Acute right-sided thoracic back pain; [address] [address] Upper respiratory tract infection, unspe cified type; [place], [place] acute serous otitis media, recurrence not specified; [id number] Abdominal pain, unspecified location [phone] Social History Tobacco Use Types Packs/Day Years [...] Sign Reading Time Taken Comments Blood Pressure 152/76 08/15/2016 12:06 PM CDT Pulse 63 08/15/2016 12:06 PM CDT Temperature 36.7 ??C (98 ??F) 08/15/2016 12:06 PM CDT Respiratory Rate 18 08/15/2016 12:06 PM CDT Oxygen Saturation 93% 08/15/2016 12:06 PM CDT Inhaled Oxygen Concentration - - Weight - [...] ADULT OR) mouth daily (every 24 hours). naproxen sodium (ANAPROX) Take 220 mg by 0 220 MG tablet mouth two times a day with meals. Probiotic Product Take by mouth. 0 (ACIDOPHILUS/GOAT MILK) amoxicillin-clavulanate Take 1 Tab by 20 Tab 0 7 08/25/2016 (AUGMENTIN) 875-125 mg per mouth two times a tablet day for 10 days. Take with food 12 hours apart. atorvastatin (LIPITOR) 20 Take 1 Tab by 90 Tab 2 017 03/06/2017 MG tabletIndications: mouth daily. Hyperlipidemia, unspecified hyperlipidemia type (HRC) documented as of this encounter ED Notes Kirk Dawson MD - 08/15/2016 1:36 PM CDT NAME: NICOLETTE RICE MR#: [id number] CSN: [id number] AUTHENTICATING CLINICIAN: Kirk Dawson MD CONFIRM #: [id number] LOC: 520 URGENT CARE PROGRESS NOTE DATE OF VISIT: 08/15/2016 : 1950 SUBJECTIVE: This is a 65-year-old male who is here with a number of different symptoms. He is a 65-year-old malewhose had a cough for 1-2 weeks that is productive of some thick mucus at times, but he has no chestpain, wheezing or shortness of breath. Secondly, ears are bothering him during the same time, the left 1 being a little worse, and the 3rd, he has had a slight sore throat. He has had sensation of somethoracic back discomfort on the left side that seems to happen when he coughs, and he had a little bit of left lower abdominal discomfort this morning. He said it was just 3 or 4 times, lasting 30 seconds each time, and then he has been okay since. He is concerned because he has had diverticulitis in the past, and apparently back in May when he was seen, he was sent over to [facility] and ended up having part of his colon resected. He thinks it was secondary to diverticulitis with perforation. He has otherwise been fine since. Currently denies urinary symptoms, fever, vomiting, or diarrhea, but again is coughing up some thicker yellow mucus. He has not had headache, and is not currently having any abdominal discomfort whatsoever. 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 Family history is otherwise noncontributory. He says his back on the right side only really hurts when he coughs. Further history includes no allergies to medications, and home med ications are otherwise as listed in Epic. OBJECTIVE: On exam, vitals stable except BP up a bit, which he will have his doctor recheck. Pulse 63, respirations 18, O2 saturation 93% in triage, but 96% in the room,. Again he does not have shortness of breath. Temp 98. LUNGS: Clear with good air entry, but cough sounded a bit bronchial. HEART: Sounded normal. Homans sign was negative. SKIN: Showed no rashes. He has some palpable discomfort over the lower ribs on the right side in the thoracic area, again worse with coughing, but nothing over the flank. ABDOMEN: Palpated several times and is completely nontender, and bowel sounds are normal. HEENT: Sinuses did show some congestion. He did have bilateral serous otitis media. Throat also looked slightlyred, and he wanted a strep test, which was reported back as negative. Further testing here includes a CBC, which showed a slightly elevated white count at 11,600, but neutrophils are normal. Urinalysis also looked completely clear, except for just occasional bacteria. We discussed doing a CT of his abdomen which he refused, and states he is absolutely having no pain right now, but states he would come back if that would recur. ASSESSMENT: 1.Cough. 2.Likely upper respiratory infection with some sinusitis symptoms. 3.Some right-sided thoracic back discomfort, likely muscular. 4.Some mild pharyngitis. 5.Serous otitis media. 6.Discussion of abdominal discomfort that he had this morning that is otherwise completely gone. PLAN: We are going to try to cover everything with Augmentin here, and I told him that I do not suspect hehas diverticulitis now, but it may be possible, but again, no pain now and no palpable pain. Augmentin certainly would help cover that if it had started, and again discussed and suggested CT to him, which he refused. He is going to use some other symptomatic measures also and some heat and low-dose aspirin for his low back. If any of this worsens or he has new symptoms, to recheck immediately. If anyof the abdominal discomfort would return, he also needs to recheck immediately. If he is not otherwise markedly improved in a couple of days to recheck, and then if not 100% with everything else in the next 5-7 days, to recheck as well. He did not want further workup or management, but agrees to the above and the above close followup as noted. With multiple issues here, a comprehensive visit was done today. WDL:TENZIN C: CONFIRM #: [id number] documented in this encounter Plan of Treatment Not on filedocumented as of this encounter Procedures Procedure Name Priority Date/Time Associated Diagnosis Comme nts COMPLETE BLOOD STAT 08/15/2016 12:46 Acute right-sided Resu lts for this COUNT-W/DIFF PM CDT thoracic back pain procedure are in the results section. DIFFERENTIAL STAT 08/15/2016 12:46 Results for this PM CDT procedure are i n the results section. URINE MICROSCOPIC STAT 08/15/2016 12:40 Acute right-sided R esults for this PM CDT thoracic back pain procedure are in the results section. GROUP A STREP ANTIGEN STAT 08/15/2016 12:40 Pharyngitis, Re sults for this SCREEN PM CDT unspecified etiology procedu re are in the results section. URINALYSIS STAT 08/15/2016 12:40 Acute right-sided Result s for this ROUTINE(MICRO IF POS) PM CDT thoracic back pain procedure are in the results section. documented in this encounter Results (ABNORMAL) Differential (08/15/2016 12:46 PM CDT) [facility] [employer] Method Time Signature Absolute 7.3 1.8 - 8.0 PN SOFT Neutrophils k/cmm Absolute 3.0 1.1 - 4.0 PN SOFT Lymphocytes k/cmm Absolute 0.9 (H) 0.2 - 0.8 PN SOFT Monocytes k/cmm Absolute 0.3 0.0 - 0.5 PN SOFT Eosinophils k/cmm Absolute 0.1 0.0 - 0.2 PN SOFT Basophils k/cmm Immature 0.6 (H) 0.0 - 0.5 PN SOFT Granulocytes % Specimen Anatomical Collection Method Collection Time Receive d Time (Source) Location / / Volume Laterality 08/15/2016 12:46 08/15/2016 PM CDT 12:46 PM CDT Narrative PN SOFT - 08/15/2016 12:49 PM CDT Performed at [facility], [address] [place] [address] CLIA number [id number] Kirk Dawson MD LAB_1 Performing Organization Address City/State/ZIP Code Phon e Number PN SOFT [address] [place] [address] [phone] (ABNORMAL) Complete Blood Count-W/Diff (08/15/2016 12:46 PM CDT) [facility] [employer] Method Time Signature White Blood Cell 11.6 (H) 3.8 - 11.0 PN SOFT Count k/cmm Red Blood Cell 5.01 4.20 - PN SOFT Count 5.90 m/cmm Hemoglobin 14.9 13.4 - PN SOFT 17.5 g/dL Hematocrit 44.3 39.0 - PN SOFT 51.0 % Mean Corpuscular 88.4 80.0 - PN SOFT Volume 100.0 fL RDW 13.3 11.0 - PN SOFT 15.0 % Platelet Count 225 140 - 450 PN SOFT k/cmm Specimen Anatomical Collection Method Collection Time Receive d Time (Source) Location / / Volume Laterality 08/15/2016 12:46 08/15/2016 PM CDT 12:46 PM CDT Narrative PN SOFT - 08/15/2016 12:49 PM CDT Performed at [facility], [address] [place] [address] CLIA number [id number] Kirk Dawson MD LAB_1 Performing Organization Address [facility] Code Phon e Number PN SOFT [address] [place] [address] Rapid Strep Group A Waived (08/15/2016 12:40 PM CDT) athologist Signature Strep A Negative Negative PN SOFT Antigen Strep A Source THROA: PN SOFT Specimen Anatomical Collection Method Collection Time Receive d Time (Source) Location / / Volume Laterality 08/15/2016 12:40 08/15/2016 1:38 PM CDT PM CDT Narrative PN SOFT - 08/15/2016 1:38 PM CDT Performed at [facility], [address] [place] [address] CLIA number [id number] Kirk Dawson MD LAB_1 Performing Organization Address [facility] Phon e Number PN SOFT [address] [place] [address] (ABNORMAL) Urine Microscopic (08/15/2016 12:40 PM CDT) Patholo gist Method Time Signature Urine WBC 0-2 0 - 4 PN SOFT /HPF Urine RBC 0-2 0 - 2 PN SOFT /HPF Bacteria Urine Occasional (A) /HPF PN SOFT Epithelial Occasional /HPF PN SOFT Cells Specimen Anatomical Collection Method Collection Time Receive d Time (Source) Location / / Volume Laterality 08/15/2016 12:40 08/15/2016 PM CDT 12:53 PM CDT Narrative PN SOFT - 08/15/2016 1:03 PM CDT Performed at [facility], [facility] [address] [place] [address] CLIA number [id number] Kirk Dawson MD LAB_1 Performing Organization Address [facility]/ZIP Code Phon e Number PN SOFT [address] [place] [address] [phone] Urinalysis Routine(Micro If Pos) (08/15/2016 12:40 PM CDT) [facility] Method Time Signature Urine Type URINE:clean PN SOFT cat Turbidity Clear Clear PN SOFT U BILI Negative Negative PN SOFT Blood Urine Negative Neg - Trace PN SOFT Glucose, Negative Neg-30 PN SOFT Qualitative U mg/dL Ketones Negative Negative PN SOFT Leukocyte Negative Negative PN SOFT Esterase Urine Nitrite Urine Negative Negative PN SOFT pH Urine 7.0 5.0 - 8.0 PN SOFT Protein Urine Negative Neg - Trace PN SOFT mg/dL U Specific <=1.005 1.005 - PN SOFT [place] 1.030 Urobilinogen Negative Negative PN SOFT Urine Eu/dL Specimen Anatomical Collection Method Collection Time Receive d Time (Source) Location / / Volume Laterality Urine 08/15/2016 12:40 08/15/2016 PM CDT 12:53 PM CDT Narrative PN SOFT - 08/15/2016 12:55 PM CDT Performed at [facility], [address] [place] [address] CLIA number [id number] Kirk Dawson MD LAB_1 Performing Organization Address City/State/ZIP Code Phon e Number KRISSY CEDE[address]O [address] [place] [address] documented in this encounter Visit Diagnoses Diagnosis Pharyngitis, unspecified etiology Acute right-sided thoracic back pain (HR C) Cough Upper respiratory tract infection, unspe cified type Bilateral acute serous otitis media, rec urrence not specified Abdominal pain, unspecified location Triage Assessment Note - Celeste Altamirano, RN - 08/15/2016 12:01 PM CDT x1-2 weeks, cough-productive at times, (denies chest tightness, sob, wheezing), both ears painful-left ear worse, slight sore throat x2 hours, pain in LLQ, mid back pain-right side worse, has had diverticulitis in past documented in this encounter Care Teams Web Press Operator Relationship Specialty Start Date End Date Po Coats MD PCP - General 08/07/12 [address] [address] [place] [id number] documented as of this encounter
--- OUTSIDE RECORDS SUMMARY | 2022-01-20 08:13 | XMS_ITS | Encounter Summary ---
:1950 Author Organization [employer] Address [address] [address] Care Team Providers Name Role Phone Po Coats MD Primary Care Provider Reason for Visit Reason Comments Follow-up Encounter Details Date Type Department Care Team Description 03/01/2016 Office Visit [facility] Stephanie Coulter, Bladder instability [id number] [facility] (Primary Dx) [place] [address] [address] [facility] [phone] [place] [address] (Wo rk) Social History Tobacco Use Types [...] documented as of this encounter Progress Notes Stephanie Coulter MD - 03/02/2016 5:09 AM CST NAME: NICOLETTE RICE MR#: [id number] CSN: [id number] AUTHENTICATING CLINICIAN: Stephanie Coulter MD CONFIRM #: [id number] LOC: 517 CLINIC PROGRESS NOTE DATE OF VISIT: 03/01/2016 : 1950 CLINICAL DATA: Nicolette is a very pleasant 65-year-old man with a history of benign prostatic hyperplasia, urinary tract infections, and de michael urgency and frequency with nocturia. The patient initially did well on a combination of oxybutynin and Myrbetriq. Unfortunately, the medication became too costly. I had the patient undergo urodynamics which did demonstrate detrusor instability, and the patient underwent Botox to the bladder. Initially, the patient's PVR went up to 350. He is here today for repeat check. Patient is happy with where he is at. He is not having frequency at night. He is not having frequency during the day. His PVR today is 88 mL. ASSESSMENT: 1. 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 2. History of benign prostatic hyperplasia. 3. Urinary tract infections. 4. Status post laser vaporization of the prostate. PLAN: Patient will call me when the Botox starts wearing off. We discussed that this can last anywhere from 6 months to 2 years, and if he starts developing symptoms, he will give me a call and we will get him on the schedule for repeat Botox injection into the bladder. This will have to be done back in theoperating room, and I do want a urinalysis and culture to make sure that the recurrence of the symptoms is nota urinary tract infection. Total visit time today was 10 minutes. Six minutes was counseling. JMR:[id number] C: CONFIRM #: [id number] S MANAGER documented in this encounter Plan of Treatment Not on filedocumented as of this encounter Visit Diagnoses Diagnosis Bladder instability - Primary Other specified disorders of bladder documented in this encounter Care Teams Entrepreneurship Program Director Relationship Specialty Start Date End Date Po Coats MD PCP - General 08/07/12 [address] [address] [place] [address] documented as of this encounter
--- OUTSIDE RECORDS SUMMARY | 2022-01-20 08:13 | XMS_ITS | Encounter Summary ---
:1950 Author [facility] Address [address], [place] [address] Care Team Providers Name Role Phone Po Coats MD Primary Care Provider Reason for Referral Procedure/Equipment (Routine) - Incomplete Specialty Diagnoses / Procedures Referred By Contact Refer red To Contact Diagnoses Abdominal pain, unspecified location Petey Aldridge PA-C Procedures CT Abd Pelvis WO [place] Cont [place] [address] [place] [address] Referral ID Status Reason Start Date Expiration Date Visits V isits Requested Authorized [id number] Incomplete 12/26/2016 03/27/2018 1 1 Reason for Visit Reason Comments Abdominal Pain Cough Encounter Details Date Type Department Care Team Description 12/26/2016 Hospital Encounter [facility] Petey Aldridge, Abdominal pain, unspecified location (Primary Dx); Care ZINA Abdominal wall pain in left flank [address] [address] [place] [address] [phone] Social History Tobacco Use Types Packs/Day Years [...] Sign Reading Time Taken Comments Blood Pressure 154/80 12/26/2016 11:38 AM CDT Pulse 62 12/26/2016 11:38 AM CDT Temperature 36.9 ??C (98.5 ??F) 12/26/2016 11:38 AM CDT Respiratory Rate 16 12/26/2016 11:38 AM CDT Oxygen Saturation 98% 12/26/2016 11:38 AM CDT Inhaled Oxygen Concentration - - Weight - - Height - - Body Mass Index - - documented in this encounter Discharge Instructions Discharge InstructionsPetey Aldridge PA-C - 12/26/2016 1:57 PM CDT Discharge Instructions Abdominal Pain w/ Undiagnosed Cause Abdominal pain can be caused by many things. Your evaluation today does not show the exact cause foryour pain. Your doctor today has decided that it is unlikely your pain is due to a life threatening problem, or a problem requiring surgery or hospital admission. Sometimes those problems cannot be found right away, so it is very important that you follow up as directed. Sometimes only the changes which occur over time allow the cause of your pain to be found. Return to the Urgent Care or Emergency Department for a recheck in 8-12 hours if your pain continues. If your pain gets worse, changes in location, or feels different, return to the Urgent Care or Emergency Department right away. ADULTS: Return to the Urgent Care or Emergency Department right away if: ??? You get an oral temperature above 102oF or as directed by your doctor. ??? You have blood in your stools (bright red or black, tarry stools). ??? You keep throwing up or can???t drink liquids. ??? You see blood when you throw up. ??? You can???t have a bowel movement or you can???t pass gas. ??? Your stomach gets bloated or bigger. ??? Your skin or the whites of your eyes look yellow. ??? You faint. ??? You have bloody, frequent or painful urination. ??? You have new symptoms or anything that worries you. CHILDREN: Return to the Urgent care or Emergency Department right away if your child has any of the above-listed symptoms or the following: ??? Pushes your hand away or screams/cries when his/her belly is touched. ??? You notice your child is very fussy or weak. ??? Your child is very tired and is too tired to eat or drink. ??? Your child is dehydrated. Signs of dehydration can be: o Your infant has had no wet diapers in 4-5 hours. o Your older child has not passed urine in 6-8 hours. o Your or child starts to have dry mouth and lips, or no saliva or tears. MORE INFORMATION: Follow-up: It is very important that you make an appointment with your clinic and go to the appointment. If you do not follow-up with your primary doctor, it may result in missing an important development which could result in permanent injury or disability and/or lasting pain. If there is any problemkeeping your appointment, call your doctor or return to the Urgent Care or Emergency Department. Medications: Take your medications as directed by your doctor today. Before using [id number] medications, ask your doctor and make sure to take the medications as directed. If you have any questions about medications, ask your doctor. Diet: Resume your normal diet as much as possible, but do not eat fried, fatty or spicy foods while you have pain. Do not drink alcohol or have caffeine. Do not smoke tobacco. Remember that you can always come back to the Urgent Care or Emergency Department if you are not able to see your normal doctor in the amount of time listed above, if you get any new symptoms, or if there is anything that worries you. documented in this encounter Medications at Time of Discharge Medication Sig Dispensed Refills Start Date End Date aspirin EC 81 MG enteric Take 1 tablet by 100 tablet 3 01/08 coated tabletIndications: mouth daily (every STU BANSAL Sat 24 hours). 2014 7:16 AM Held [...] Product Take by mouth. 0 (ACIDOPHILUS/GOAT MILK) psyllium (KONSYL) 30.9 % Take by mouth 0 powder daily. atorvastatin (LIPITOR) 20 Take 1 Tab by 90 Tab 2 017 03/06/2017 MG tabletIndications: mouth daily. Hyperlipidemia, unspecified hyperlipidemia type (HRC) documented as of this encounter ED Notes Petey Aldridge PA-C - 12/26/2016 11:42 AM CDT Acute Clinic Visit SUBJECTIVE: Raul Dickson is a 66 y.o. male with a history of diverticulitis, nephrolithiasis, and partial colectomy in 2016 presenting for left lower back and abdominal pain since Saturday. He states that the pain is worse with sitting, and improved with movement and urination. He states that the pain feels differently than previous diverticulitis or nephrolithiasis. He states that the pain moves around. He states that his bowels are normal. He reports no nausea, vomiting, diarrhea, hematochezia, or constipation. He reports no dysuria, polyuria, or hematuria. He denies fever or chills. He reports no recent injury. He also reports upper respiratory symptoms since Saturday including itchy,watery eyes, produtive cough, nasal congestion and rhinorrhea. PT last BM was today and it was normal. History of Present Illness: No exposure to potentially contaminated food or water. No recent travel outside of the [place] No blood in the vomitus or diarrhea. Meds : Acidophilus/Goat Milk, Multiple Vitamins-Minerals, aspirin EC, atorvastatin, magnesium, naproxen sodium, and psyllium Past History: Patient Active Problem List Diagnosis ??? Lumbago (HRC) ??? Hyperlipidemia (HRC) ??? Complex sleep apnea syndrome ??? Adenoma of large intestine Adverse Drug Reactions: Review of patient's allergies indicates no known allergies. Review of Systems: Negative except for Subjective. Family history: Family History Problem Relation Age of Onset ??? Cancer Father lung ??? Early Brother infant ??? Early Brother ??? Retinal Detachment Mother ??? Cataract Mother ??? Glaucoma Mother ??? Abdominal Aortic Aneurysm Mother ??? Cataract Paternal Grandfather ??? Diabetes Negative Family History ??? Macular Degeneration Negative Family History ??? Amblyopia/Strabismus Negative Family History . Social history: Social History Substance Use Topics ??? Smoking status: Never Smoker ??? Smokeless tobacco: Never Used ??? Alcohol use Yes Comment: rare OBJECTIVE: Vital Signs: BP (!) 154/80 Pulse 62 Temp 36.9 ??C (98.5 ??F) (Oral) Resp 16 SpO2 98% General Appearance: Well appearing male in NAD Skin: No rashes or lesions. Eyes: Conjunctiva pink, sclera white, cornea and lenses are clear. Ears: Normal pinnae, canals. TMs normal. Nose: Slightly congested.Clear rhinnorrhea. Throat: Moist mucous membranes without lesions; clear postnasal drainage. Oropharynx: Normal, mucous membranes moist, tonsils symmetric without redness or exudate. Respiratory: Lung sounds clear to auscultation without respiratory distress. No CVA tenderness. CV: RRR no clicks, rubs, gallops, murmurs Abdomen: Bowel sounds normal. Abdomen soft. No guarding or rebound tenderness. Palpation to left lateral abdomen at ribs 10, 11, 12 specifically reproduces pain. No rash noted. Lab: Labs Reviewed COMPLETE BLOOD COUNT-W/DIFF - Abnormal; Notable for the following: Result Value White Blood Cell Count 11.5 (*) All other components within normal limits Narrative: Performed at [facility], [address] [place] [address] CLIA number [id number] URINE MICROSCOPIC - Abnormal; Notable for the following: Bacteria Urine Few (*) All other components within normal limits Narrative: Performed at [facility], [address] [place] [address] CLIA number [id number] DIFFERENTIAL - Abnormal; Notable for the following: Absolute Monocytes 1.1 (*) All other components within normal limits Narrative: Performed at [facility], [address] [place] [address] CLIA number [id number] URINALYSIS ROUTINE(MICRO IF POS) Narrative: Performed at [facility], [address] [facility], [place] [id number] CLIA number [id number] Radiology: Ct Abd Pelvis Wo Iv Cont [place] Result Date: 12/26/2016 COMPARISON: None. TECHNIQUE: Images were obtained through the abdomen and pelvis without intravenousor oral contrast. FINDINGS: There is a single, nonobstructing, 2 mm calculus in the lower pole of the left kidney. No additional no renal, ureteral or bladder calculi. No hydronephrosis or hydroureter.Noncontrast images of the kidneys are unremarkable. Elsewhere, noncontrast images of the liver, spleen, pancreas, and adrenal glands are unremarkable. Cholelithiasis is present. There is evidence of partial sigmoidectomy. Diverticulosis is noted in the remaining colon. The remaining visualized bowel, including the appendix, is unremarkable. There is no adenopathy, free fluid, or acute inflammatory change in the abdomen or pelvis. IMPRESSION: No acute findings to explain the patient's symptoms. Orders Placed This Encounter ??? Complete Blood Count W/Diff (CBC) ??? Urinalysis Routine(Micro If Pos) ??? Urine Microscopic ??? Differential ??? CT Abd Pelvis WO IV Cont [place] ??? Nursing Communication: Ct abd wo ASSESSMENT: 1. Abdominal pain, unspecified location 2. Abdominal wall pain in left flank Raul Dickson is a 66 y.o. male with a history of diverticulitis, nephrolithiasis, and partial colectomy in 2016 presenting for left lower back and abdominal pain since Saturday. DDx includes diverticulitis, bowel obstruction, nephrolithiasis, muscle strain, shingles, including others. Symptoms and exam appear most consistent with a musculoskeletal cause of symptoms. On exam, tenderness is reproducible along the left lateral flank. UA was normal. CBC showed a mildly elevated white count. Imaging was negative for kidney stones or diverticulitis. Unlikely to have an acute infection given lack of fever, chills, localized abdominal tenderness, abnormal bowels or urine. Shingles is a possibility, however, no rash has emerged. PLAN: Discussed warning signs including bowel/bladder changes, worsening pain, fever, chills, etc. Explained that he should have a low threshold to return for evaluation given previous history of diverticulitis, nephrolithiasis, abdominal surgeries. Discussed that he should watch for an emerging rash which could indicate shingles. Recommended symptomatic treatment with naproxen. Patient understands and agrees to plan of care. Patrice QUINTANILLA Discharge Instructions Discharge Instructions Abdominal Pain w/ Undiagnosed Cause Abdominal pain can be caused by many things. Your evaluation today does not show the exact cause for your pain. Your doctor today has decided that it is unlikely your pain is due to a life threatening problem, or a problem requiring surgery or hospital admission. Sometimes those problems cannot be found right away, so it is very important that you follow up as directed. Sometimes only the changes which occur over time allow the cause of your pain to be found. Return to the Urgent Care or Emergency Department for a recheck in 8-12 hours if your pain continues. If your pain gets worse, changes in location, or feels different, return to the Urgent Care or Emergency Department right away. ADULTS: Return to the Urgent Care or Emergency Department right away if: ? You get an oral temperature above 102oF or as directed by your doctor. ? You have blood in your stools (bright red or black, tarry stools). ? You keep throwing up or can???t drink liquids. ? You see blood when you throw up. ? You can???t have a bowel movement or you can???t pass gas. ? Your stomach gets bloated or bigger. ? Your skin or the whites of your eyes look yellow. ? You faint. ? You have bloody, frequent or painful urination. ? You have new symptoms or anything that worries you. CHILDREN: Return to the Urgent care or Emergency Department right away if your child has any of the above-listed symptoms or the following: ? Pushes your hand away or screams/cries when his/her belly is touched. ? You notice your child is very fussy or weak. ? Your child is very tired and is too tired to eat or drink. ? Your child is dehydrated. Signs of dehydration can be: o Your infant has had no wet diapers in 4-5 hours. o Your older child has not passed urine in 6-8 hours. o Your infant or child starts to have dry mouth and lips, or no saliva or tears. MORE INFORMATION: Follow-up: It is very important that you make an appointment with your clinic and go to the appointment. If you do not follow-up with your primary doctor, it may result in missing an important development which could result in permanent injury or disability and/or lasting pain. If there is any problem keeping your appointment, call your doctor or return to the Urgent Care or Emergency Department. Medications: Take your medications as directed by your doctor today. Before using [id number] medications, ask your doctor and make sure to take the medications as directed. If you have any questions about medications, ask your doctor. Diet: Resume your normal diet as much as possible, but do not eat fried, fatty or spicy foods while you have pain. Do not drink alcohol or have caffeine. Do not smoke tobacco. Remember that you can always come back to the Urgent Care or Emergency Department if you are not able to see your normal doctor in the amount of time listed above, if you get any new symptoms, or if there is anything that worries you. Discharge Medication List as of 12/26/2016 1:58 PM Instructions going forward were discussed and pt was discharged in stable condition. RTC PRN for nausea, vomiting, increasing abdominal pain, or otherwise worsening condition. Monitor closely for fever chills or increasing abdominal pain. Follow up:in the next couple of days, ER if worse documented in this encounter Plan of Treatment Not on filedocumented as of this encounter Procedures Procedure Name Priority Date/Time Associated Diagnosis Comme nts COMPLETE BLOOD STAT 12/26/2016 12:17 Abdominal pain, Result s for this COUNT-W/DIFF PM CDT unspecified location procedu re are in the results section. DIFFERENTIAL STAT 12/26/2016 12:17 Results for this PM CDT procedure are i n the results section. URINE MICROSCOPIC STAT 12/26/2016 12:15 Abdominal pain, Res ults for this PM CDT unspecified location procedu re are in the results section. URINALYSIS STAT 12/26/2016 12:15 Abdominal pain, Results for this ROUTINE(MICRO IF POS) PM CDT unspecified locatio n procedure are in the results section. documented in this encounter Results CT Abd Pelvis WO IV Cont [place] (12/26/2016 1:11 PM CDT) Anatomical Region Laterality Modality Abdomen, Pelvis Computed Tomography Specimen (Source) Anatomical Collection Method Collection Time Re ceived Time Location / / Volume Laterality 12/26/2016 1:08 PM CDT Impressions 12/26/2016 1:25 PM CDT IMPRESSION: ??No acute findings to explain the patient's symptoms. ? Narrative 12/26/2016 1:25 PM CDT COMPARISON: ??None. ? TECHNIQUE: ??Images were obtained throug h the abdomen and pelvis without intravenous or oral contrast. ? FINDINGS: There is a single, nonobstruct ing, 2 mm calculus in the lower pole of the left kidney. No additional no renal, ureteral or bladder calculi. ??No hydronephrosis or hydroureter. Noncontrast images of the kidneys are unremarkable. Elsewhere, noncontrast images of the eldon er, spleen, pancreas, and adrenal glands are unremarkable. Cholelithiasis is present. There is evidence of partial sigmoidectomy. Diverticulosis is noted in the r emaining colon. The remaining visualized bowel, including the appendix, is unremarkable. ??There is no adenopathy, free fluid, or acute inflammatory change in the abdomen or pelvis. Procedure Note Bekah Brown MD - 12/26/2016Formattin g of this note might be different from the original. COMPARISON: None. TECHNIQUE: Images were obtained through the abdomen and pelvis without intravenous or oral contrast. FINDINGS: There is a single, nonobstruct ing, 2 mm calculus in the lower pole of the left kidney. No additional no renal, ureteral or bladder calculi. No hydronephrosis or hydroureter. Noncontrast images of the kidneys are unremarkable. Elsewhere, noncontrast images of the eldon er, spleen, pancreas, and adrenal glands are unremarkable. Cholelithiasis is present. There is evidence of partial sigmoidectomy. Diverticulosis is noted in the remaining colon. The remaining visualized bowel, including th e appendix, is unremarkable. There is no adenopathy, free fluid, or acute inflammatory change in the abdomen or pelvis. IMPRESSION IMPRESSION: No acute findings to explain the patient's symptoms. Petey Aldridge PA-C RAD CT (ABNORMAL) Differential (12/26/2016 12:17 PM CDT) [facility] Method Time Signature Absolute 7.2 1.8 - 8.0 PN SOFT Neutrophils k/cmm Absolute 2.8 1.1 - 4.0 PN SOFT Lymphocytes k/cmm Absolute 1.1 (H) 0.2 - 0.8 PN SOFT Monocytes k/cmm Absolute 0.4 0.0 - 0.5 PN SOFT Eosinophils k/cmm Absolute 0.1 0.0 - 0.2 PN SOFT Basophils k/cmm Immature 0.4 0.0 - 0.5 PN SOFT Granulocytes % Specimen Anatomical Collection Method Collection Time Receive d Time (Source) Location / / Volume Laterality 12/26/2016 12:17 12/26/2016 PM CDT 12:17 PM CDT Narrative PN SOFT - 12/26/2016 12:21 PM CDT Performed at [facility], [facility] [place] [address] [place] [address] CLIA number [id number] Petey Aldridge PA-C LAB_1 Performing Organization Address City/State/ZIP Code Phon e Number PN SOFT [address] [place] [address] (ABNORMAL) Complete Blood Count W/Diff (CBC) (12/26/2016 12:17 PM CDT) [facility] Method Time Signature White Blood Cell 11.5 (H) 3.8 - 11.0 PN SOFT Count k/cmm Red Blood Cell 5.11 4.20 - PN SOFT Count 5.90 m/cmm Hemoglobin 15.1 13.4 - PN SOFT 17.5 g/dL Hematocrit 44.9 39.0 - PN SOFT 51.0 % Mean Corpuscular 87.9 80.0 - PN SOFT Volume 100.0 fL RDW 12.9 11.0 - PN SOFT 15.0 % Platelet Count 210 140 - 450 PN SOFT k/cmm Specimen Anatomical Collection Method Collection Time Receive d Time (Source) Location / / Volume Laterality 12/26/2016 12:17 12/26/2016 PM CDT 12:17 PM CDT Narrative PN SOFT - 12/26/2016 12:21 PM CDT Performed at [facility], [facility] [place] [place] [address] [place] [address] CLIA number [id number] Petey Aldridge PA-C LAB_1 Performing Organization Address [facility]/ZIP Code Phon e Number PN SOFT [address] [place] [address] (ABNORMAL) Urine Microscopic (12/26/2016 12:15 PM CDT) P athologist Signature Urine WBC 3-4 0 - 4 /HPF PN SOFT Urine RBC 0-2 0 - 2 /HPF PN SOFT Bacteria Urine Few (A) /HPF PN SOFT Epithelial Few /HPF PN SOFT Cells Specimen Anatomical Collection Method Collection Time Receive d Time (Source) Location / / Volume Laterality 12/26/2016 12:15 12/26/2016 PM CDT 12:25 PM CDT Narrative PN SOFT - 12/26/2016 12:44 PM CDT Performed at [facility], [facility] [place] [place] [address] [place] [address] CLIA number [id number] Petey Aldridge PA-C LAB_1 Performing Organization Address [facility] Phon e Number PN SOFT [address] [place] [address] Urinalysis Routine(Micro If Pos) (12/26/2016 12:15 PM CDT) [facility] Method Time Signature Urine Type URINE:clean PN SOFT cat Turbidity Clear Clear PN SOFT U BILI Negative Negative PN SOFT Blood Urine Negative Neg - Trace PN SOFT Glucose, Negative Neg-30 PN SOFT Qualitative U mg/dL Ketones Negative Negative PN SOFT Leukocyte Negative Negative PN SOFT Esterase Urine Nitrite Urine Negative Negative PN SOFT pH Urine 7.5 5.0 - 8.0 PN SOFT Protein Urine Negative Neg - Trace PN SOFT mg/dL U Specific 1.010 1.005 - PN SOFT [place] 1.030 Urobilinogen Negative Negative PN SOFT Urine Eu/dL Specimen Anatomical Collection Method Collection Time Receive d Time (Source) Location / / Volume Laterality Urine 12/26/2016 12:15 12/26/2016 PM CDT 12:25 PM CDT Narrative PN SOFT - 12/26/2016 12:28 PM CDT Performed at [facility], [facility] [place] [address] [place] [address] CLIA number [id number] Petey Aldridge PA-C LAB_1 Performing Organization Address City/State/ZIP Code Phon e Number PN SOFT [address] [place] [address] documented in this encounter Visit Diagnoses Diagnosis Abdominal pain, unspecified location - P rimary Abdominal wall pain in left flank Abdominal pain, unspecified site Abdominal pain, unspecified location Triage Assessment Note - Celeste Shabazz RN - 12/26/2016 11:32 AM CDT Pt with left lower abd pain since Saturday. Pt with hx diverticulitis and colon surgery May 2016. PT denies constipation or diarrhea. PT last BM was today and it was normal. PT also with a cough and runny nose since Saturday night. Pt blowing green mucus. 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
--- OUTSIDE RECORDS SUMMARY | 2022-01-20 08:13 | XMS_ITS | Encounter Summary ---
:1950 Author Organization [employer] Address [address] [place] [address] Care Team Providers Name Role Phone Po Coats MD Primary Care Provider Reason for Referral (Routine) - Closed Specialty Diagnoses / Procedures Referred By Contact Refer red To Contact Diagnoses Left shoulder pain, unspecified chronicity Zac Harden MD Procedures Triamcinolone Acet Inj Nos: (per 10 mg) [address] [facility] [place], [place] [address] Referral ID Status Reason Start Date Expiration Date Visits Requ ested Visits Authorized [id number] Closed 08/25/2018 11/24/2019 1 1 Reason for Visit Reason Comments SHOULDER PAIN left Encounter Details Date Type Department Care Team Description 08/20/2018 Office Visit [facility] Zac Harden MD Left shoulder pain, Urgent Care [address] [facility] unspecified [address] [place], [place] chronicity (Primary [place], [place] [phone] Dx) [phone] (Wo rk) Social History Tobacco Use Types [...] Pressure - - Pulse - - Temperature 37 ??C (98.6 ??F) 08/20/2018 8:22 AM CDT Respiratory Rate - - Oxygen Saturation - - Inhaled Oxygen Concentration - - Weight - - Height - - Body Mass Index - - documented in this encounter Patient Instructions Patient InstructionsRadha Hdz, ATC - 08/20/2018 8:[address] Zac Harden MD Sports & Orthopaedic Medicine [facility] Medication Requests: Prescriptions are not filled on Weekends or on Weekdays after 3:00PM For all medication refills: Request a refill using [facility] [employer] or contact your Pharmacy Acute Injury Clinic Nurse Line: Please contact Acute Injury Clinic Nurse line for all medical requests and questions at [phone] MRI Scheduling: To schedule an MRI at [facility] please call [phone] Paperwork Requests: Questions regarding FMLA or disability paperwork please call [phone] Phone lines are answered 8AM to 5PM Saturday - Saturday. Workers??? Compensation: Please contact our department for any Work Comp concerns at Email: [email or web address] The left shoulder was injected with Kenalog-40 and lidocaine. Avoid Strenuous Activity for the remainder of the day and avoid activities that cause pain for one to two weeks following the injection. Signs and Symptoms to watch for: If you have any redness, warmth or increasing pain at the site of the injection or develop a fever, please call [phone] You've just had a steroid (cortisone) injection: [...] encounter Progress Notes Zac Harden MD - 08/20/2018 12:00 PM CDT NAME: NICOLETTE RICE MR#: [id number] CSN: [id number] AUTHENTICATING CLINICIAN: Zac Harden MD CONFIRM #: [id number] LOC: 711 CLINIC PROGRESS NOTE DATE OF VISIT: 08/20/2018 : 1950 67-year-old here for evaluation for left shoulder pain that is recurring from 6 months ago, after hehad a cortisone shot by Dr. Amaro. He said it worked very well, and he had essentially full relief of his symptoms. In the last month, the pain is coming back again, making it hard to sleep, and when he is out in the cold it gets even worse, and he wants to see what can be done to help with it further as well. No new injury or fall. REVIEW OF SYSTEMS: No fevers, rashes, joint pains. He is retired from [employer]. PHYSICAL EXAM: He is an alert and oriented, pleasant gentle. Examination of his left shoulder shows positive impingement test. Pain on supraspinatus testing and minimal weakness, and pain on external rotation and minimal weakness. No pain in internal rotation and no weakness on internal rotation. No pain in the AC joint or the clavicle. No neurologic deficits noted. No vascular deficits noted. Full range of motion of the neck without pain. Spurling's test was negative. ASSESSMENT AND PLAN: Left shoulder impingement syndrome, with supraspinatus and infraspinatus rotator cuff tendinitis, possible partial tear. Discussed with him about a cortisone shot today, since it worked very well in the past, with continuing his physical therapy. If he were to get functional limitations, would have him talk to a surgeon, but at this point I did not think a surgeon would be suggesting surgery at this point. So, the area was sterilely prepped, risks and benefits were explained. He said he wanted to proceed so 1 mL of 40 mg Kenaolog mixed with 5 mL of 1% lidocaine was injected into the right shoulder in a posterolateral approach into subacromial space. No complications occurred. RTJ:MEDQ C: R:08/20/18 09:15 CONFIRM#:[id number] documented in this encounter Plan of Treatment Not on filedocumented as of this encounter Visit Diagnoses Diagnosis Left shoulder pain, unspecified chronici ty - Primary documented in this encounter Care Teams Executive Director Global Brand Marketing Relationship Specialty Start Date End Date Po Coats MD PCP - General 08/07/12 [address] [address] [place] [address] documented as of this encounter
--- OUTSIDE RECORDS SUMMARY | 2022-01-20 08:13 | XMS_ITS | Encounter Summary ---
:1950 Author Organization [employer] Address [address] [address] Care Team Providers Name Role Phone Tio Gonzalez MD Primary Care Provider Reason for Visit Reason Onset Date Comments Refill 05/21/2016 atorvastatin (LIPITO R) 20 MG tablet Encounter Details Date Type Department Care Team Description 05/21/2016 Refill [facility] Carlo Gonzalez MD Refill (atorvastatin Medicine [address] [facility] (LIPITOR) 20 MG tablet) [address] [place], [place] [address] [place] [address] [phone] Social History Tobacco Use Types Packs/Day Years [...] documented as of this encounter Nursing Notes Malinda Anderson RN - 05/22/2016 3:14 PM CST Renewed medication per medication refill protocol. Requested Prescriptions Signed Prescriptions Disp Refills ??? atorvastatin (LIPITOR) 20 MG tablet 90 Tab 2 Sig: Take 1 Tab by mouth daily. Authorizing Provider: TIO GONZALEZ Ordering User: MALINDA ANDERSON F CLIMATE SCIENTIST Interface, Out Clariture Prov Query - 05/21/2016 1:58 PM CST atorvastatin (LIPITOR) 20 MG tablet Medication started: 01/08/2014 Last ordered by TIO GONZALEZ (383 days ago) QTY: 90, Refills: 3, Sig: take 1 tabletby mouth daily (every 24 hours). (changed but equivalent) -> This medication may not have been authorized by the requested provider. -> Refill x 9 months (until due for an office visit) Last qualifying visit: 01/11/2016 (with TIO GONZALEZ) Next scheduled visit: None Powered by [employer], Reference: [id number], 05/21/2016 1:58:40 PM STAFF CLIMATE SCIENTIST, Pool: KENISHA KEARNEY REFILL ([id number]) F CLIMATE SCIENTIST Bekah Mojica - 05/21/2016 1:56 PM CST Patient needs medication refilled. States he did not realize last refill said - NO refills left. Has4 pills left. F CLIMATE SCIENTIST documented in this encounter Plan of Treatment Not on filedocumented as of this encounter Visit Diagnoses Diagnosis Hyperlipidemia, unspecified hyperlipidem ia type (HRC) - Primary documented in this encounter Care Teams Block Sorter Relationship Specialty Start Date End Date Tio Gonzalez MD PCP - General 08/07/12 [address] [place] [address] documented as of this encounter
--- OUTSIDE RECORDS SUMMARY | 2022-01-20 08:13 | XMS_ITS | Encounter Summary ---
:1950 Author [facility] Address [address] [facility] [place] [address] Care Team Providers Name Role Phone Po Coats MD Primary Care Provider Reason for Visit Reason Comments DL Encounter Details Date Type Department Care Team Description 02/10/2019 Sleep Procedure [place] CPAP Gabrielle Jewell, RT [address] [facility] [place], [place] [id number] Social History Tobacco Use Types Packs/Day Years [...] documented as of this encounter Progress Notes Gabrielle Jewell, - 02/10/2019 11:00 AM CDT 39 day DL request by clinic, faxed as pt given copy. RT Hortencia 02/10/2019, 11:28 AM documented in this encounter Plan of Treatment Not on filedocumented as of this encounter Visit Diagnoses Not on filedocumented in this encounter Care Teams Strip Polisher Relationship Specialty Start Date End Date Po Coats MD PCP - General 08/07/12 [address] [place] [address] documented as of this encounter
--- OUTSIDE RECORDS SUMMARY | 2022-01-20 08:13 | XMS_ITS | Encounter Summary ---
:1950 Author Organization [employer] Address [address], [place] [address] Care Team Providers Name Role Phone Po Coats MD Primary Care Provider Reason for Visit Reason Comments Headache Sinusitis Encounter Details Date Type Department Care Team Description 03/01/2016 Hospital Encounter [facility] Abiola Kumar, [place] non-recurrent Care PA-C sinusitis, [address] [place] [id number] Social History Tobacco Use Types Packs/Day Years [...] Sign Reading Time Taken Comments Blood Pressure 153/80 03/01/2016 10:23 AM STITCHING DEPARTMENT SUPERVISOR Pulse 63 03/01/2016 10:23 AM STITCHING DEPARTMENT SUPERVISOR Temperature 36.6 ??C (97.8 ??F) 03/01/2016 10:23 AM STITCHING DEPARTMENT SUPERVISOR Respiratory Rate 24 03/01/2016 10:23 AM STITCHING DEPARTMENT SUPERVISOR Oxygen Saturation - - Inhaled Oxygen Concentration [...] times one week in prep for colonoscopy CHRIS MELENDEZ SatJun 11, 2014 12:54 PM taking magnesium 250 MG Take 250 mg by 0 12/25/2013 mouth daily (every 24 hours). Multiple Vitamins-Minerals Take 1 tablet by 0 03/2014 (MULTIVITAMIN ADULT OR) mouth daily (every 24 hours). amoxicillin-clavulanate Take 1 Tab by 20 Tab 0 6 03/11/2016 (AUGMENTIN) 875-125 mg per mouth two times a tablet day for 10 days. atorvastatin (LIPITOR) 20 Take 1 tablet by 90 tablet 3 04/1605/21/2016 MG tabletIndications: mouth daily (every Hyperlipidemia (HRC) 24 hours). documented as of this encounter ED Notes Abiola Kumar PA-C - 03/01/2016 10:33 AM CST SUBJECTIVE: HPI: Raul Dickson is a 65 y.o. male who presents with concern for possible sinusitis. Symptoms began 10 days ago. He feels the symptoms are worsening. He has had runny nose and nasal congestion. Patient states that the nasal discharge is yellow and thick in color. Reports sinus pain/ pressure. Patient hasnot had documented fevers although will have sweats at night. He has had sore throat. Denies frequent sinus infections. Raul Dickson has been using coricidin medications with mild improvement. Raul Dickson denies any recent sick contacts.He has had tooth pain with this. He has not been coughing. PMH: History reviewed. No pertinent past medical history. Medications: Multiple Vitamins-Minerals, aspirin EC, atorvastatin, and magnesium Allergies: No Known Allergies Social History: Social History Social History ??? Marital Status: Spouse Name: chris ??? Number of Children: 2 ??? Years of Education: 14 Occupational History ??? retired Social History Main Topics ??? Smoking status: Never Smoker ??? Smokeless tobacco: Never Used ??? Alcohol Use: Yes Comment: rare ??? Drug Use: Not on file ??? Sexual Activity: Not on file Other Topics Concern ??? Not on file Social History Narrative ROS: review of systems otherwise unremarkable. OBJECTIVE: Filed Vitals: 03/01/16 1023 BP: 153/80 Pulse: 63 Temp: 36.6 ??C (97.8 ??F) TempSrc: Oral Resp: 24 General: Appears mildly ill, nontoxic and in NAD. Eyes: Full EOM, PERRLA, without lesions or injection. Nose: mild congested with out active discharge. Ears: Canals and TM's normal without lesions. Sinus: mild TTP over his sinuses. Pharynx: Moist mucous membranes without lesions, erythema, or exudate, with out injection or postnasal drainage. Tonsils within normal size. Uvula midline normal phonation. Airway intact. Neck: Supple, without masses, lymphadenopathy or tenderness. Respiratory: Normalrespiratory effort. Lungs are clear with good breath sounds. Heart: RR without murmurs, rubs, or gallops. ASSESSMENT: 1. Sinusitis. PLAN: Rx for augmentin bid x 10 days. Side effect profile reviewed. Sinusitis instruction card was given. Sinus irrigation (Neti Pot) was discussed with sterile water, and demonstrated. Use OTC analgesics (tylenol/ ibuprofen) PRN, coricidin for decongestant. Encouragedfluids and rest as needed. RTC PRN if not gradually improving. Raul Dickson was discharged ambulatory and in stable condition. All questions answered. Please note that the above medical documentation was created with voice recognition software and may contain typographic errors. CHING DEPARTMENT SUPERVISOR documented in this encounter Plan of Treatment Not on filedocumented as of this encounter Visit Diagnoses Diagnosis Acute non-recurrent sinusitis, unspecifi ed location Triage Assessment Note - Vivien Stephens LPN - 03/01/2016 10:23 AM CST Pt. Here for 10 days of sinus pain and pressure. Also thick yellow mucous. CHING DEPARTMENT SUPERVISOR documented in this encounter Care Teams Small Package And Bundle Sorter Clerk Relationship Specialty Start Date End Date Po Coats MD PCP - General 08/07/12 [address] [place] [address] documented as of this encounter
--- OUTSIDE RECORDS SUMMARY | 2022-01-20 08:13 | XMS_ITS | Encounter Summary ---
:1950 Author [facility] Address [address], [place] [address] Care Team Providers Name Role Phone Po Coats MD Primary Care Provider Encounter Details Date Type Department Care Team Description 01/09/2017 Immunization [facility] Need for prophylactic [address] [facility] [place] [address] inoculation against [phone] influenza Social History Tobacco Use Types Packs/Day Years [...] as of this encounter Visit Diagnoses Diagnosis Need for prophylactic vaccination and in oculation against influenza documented in this encounter Care Teams Senior Web Engineer Relationship Specialty Start Date End Date Po Coats MD PCP - General 08/07/12 [address] [place] [address] documented as of this encounter
--- OUTSIDE RECORDS SUMMARY | 2022-01-20 08:13 | XMS_ITS | Encounter Summary ---
:1950 Author Organization [employer] Address [address], [place] [address] Care Team Providers Name Role Phone Po Coats MD Primary Care Provider Reason for Visit Procedure/Equipment (Routine) - Incomplete Specialty Diagnoses / Procedures Referred By Contact Refer red To Contact Diagnoses Abdominal pain, unspecified location Petey Aldridge PA-C Procedures CT Abd Pelvis WO IV Cont Stone [address] [place] [address] Referral ID Status Reason Start Date Expiration Date Visits V isits Requested Authorized [id number] Incomplete 12/26/2016 03/27/2018 1 1 Encounter Details Date Type Department Care Team Description 12/26/[address] Scan Abdominal pain, unspecified [address] [facility] location [place], [place] [id number] Social History Tobacco Use Types Packs/Day Years [...] Priority Date/Time Associated Diagnosis Comme nts CT ABD PELVIS WO IV STAT 12/26/2016 1:11 PM Abdominal pain, Results for this CONT STONE CDT unspecified location procedu re are in the results section. documented in [...] patient's symptoms. Petey Aldridge PA-C RAD CT documented in this encounter Visit Diagnoses Diagnosis Abdominal pain, unspecified location documented in this encounter Care Teams Examination Scorer Relationship Specialty Start Date End Date Po Coats MD PCP - General 08/07/[address] [place] [address] documented as of this encounter
--- OUTSIDE RECORDS SUMMARY | 2022-01-20 08:13 | XMS_ITS | Encounter Summary ---
:1950 Author Organization [email or web address] Address [address], [place] [address] Care Team Providers Name Role Phone Po Coats MD Primary Care Provider Encounter Details Date Type Department Care Team Description 09/05/2016 Lab Visit [facility] Annual physical exam [address] [place] [address] Social History Tobacco Use Types Packs/Day Years [...] Name Priority Date/Time Associated Diagnosis Comme nts LIPID PANEL AND Routine 09/05/2016 10:05 AM Annual physical ex am Results for this DIRECT LDL(IF CDT procedure are in NEEDED) the results section. LIVER PANEL(HEPATIC Routine 09/05/2016 10:05 AM Annual physica l exam Results for this FUNCTION PANEL) CDT procedure ar e in the results section. BASIC METABOLIC Routine 09/05/2016 10:05 AM Annual physical ex am Results for this PANEL CDT procedure are i n the results section. PROSTATIC SPECIFIC Routine 09/05/2016 10:05 AM Annual physical exam Results for this ANTIGEN(SCREEN) CDT procedure ar e in the results section. COMPLETE BLOOD Routine 09/05/2016 10:05 AM Annual physical exa m Results for this COUNT-NO DIFF CDT procedure are in the results section. HEPATITIS C Routine 09/05/2016 10:05 AM Annual physical exam Results for this ANTIBODY, WITH CDT procedure are in REFLEX the results section. HGB A1C Routine 09/05/2016 10:05 AM Annual physical exam Results for this CDT procedure are i n the results section. documented in this encounter Results Hepatitis C Antibody, with Reflex (09/05/2016 10:05 AM CDT) [facility] Method Time Signature Hepatitis C Nonreactive Nonreactive PN SOFT Antibody Specimen Anatomical Collection Method Collection Time Receive d Time (Source) Location / / Volume Laterality 09/05/2016 10:09/05/2016 AM CDT 12:40 PM CDT Narrative PN SOFT - 09/05/2016 3:25 PM [place] [address] CLIA number [id number] Po Coats MD LAB_1 Performing Organization Address [facility] Phon e Number PN SOFT [address] [place] [address] Prostatic Specific Antigen (Screen) (09/05/2016 10:05 AM CDT) athologist Signature Prostate 1.3 0.0 - 4.0 PN SOFT Specific ng/mL Antigen Comment: The Iyer PSA Chemiluminescent immunoas say is used. Results obtained with different test met hods or kits cannot be used interchangeably. Specimen Anatomical Collection Method Collection Time Receive d Time (Source) Location / / Volume Laterality 09/05/2016 10:05 09/05/2016 AM CDT 12:39 PM CDT Narrative PN SOFT - 09/05/2016 3:20 PM CDT Performed at [address] [address] CLIA number [id number] Po Coats MD LAB_1 Performing Organization Address [facility] Phon e Number PN SOFT [address] [place] [address] Liver Panel(Hepatic Function Panel) (09/05/2016 10:05 AM CDT) Patholo gist Method Time Signature Alk Phos 116 40 [...] / Volume Laterality 09/05/2016 10:09/05/2016 AM CDT 10:04 AM CDT Narrative PN SOFT - 09/05/2016 10:31 AM CDT Performed at [facility], [address] [place] [address] CLIA number [id number] Po Coats MD LAB_1 Performing Organization Address City/[facility] Phon e Number PN SOFT [address] [place] [address] Lipid Panel and Direct LDL(If Needed) (09/05/2016 [...] - 09/05/2016 10:31 AM CDT Performed at [facility], [address] [place] [id number] CLIA number [id number] Po Coats MD LAB_1 Performing Organization Address [facility] Phon e Number PN SOFT [address] [place] [address] (ABNORMAL) Hgb A1c (09/05/2016 10:05 AM CDT) athologist Signature HGB A1C 5.8 (H) 4.0 - 5.6 % PN SOFT Specimen Anatomical Collection Method Collection Time Receive d Time (Source) Location / / Volume Laterality 09/05/2016 10:09/05/2016 1:07 AM CDT PM CDT Narrative PN SOFT - 09/05/2016 3:02 PM CDT Performed at [facility], [address] [place] [address] CLIA number [id number] Po Coats MD LAB_1 Performing Organization Address [facility] Phon e Number PN SOFT [address] [place] [address] Complete Blood Count-No Diff (09/05/2016 10:05 AM [...] - 09/05/2016 10:10 AM CDT Performed at [facility], [address] [place] [address] CLIA number [id number] Po Coats MD LAB_1 Performing Organization Address [facility] Phon e Number PN SOFT [address] [place] [address] (ABNORMAL) Basic Metabolic Panel (09/05/2016 10:05 AM CDT) P athologist Signature Creatinine 1.00 0.73 - PN [...] - 09/05/2016 10:31 AM CDT Performed at [facility], [address] [place] [address] CLIA number [id number] Po Coats MD LAB_1 Performing Organization Address City/State/ZIP Code Phon e Number PN SOFT [address] [place] [address] documented in this encounter Visit Diagnoses Diagnosis Annual physical exam Routine general medical examination at a health care facility documented in this encounter Care Teams Asphalt Paver Operator Relationship Specialty Start Date End Date Po Coats MD PCP - General 08/07/12 [address] [place] [address] [address] documented as of this encounter
--- OUTSIDE RECORDS SUMMARY | 2022-01-20 08:13 | XMS_ITS | Encounter Summary ---
:1950 Author Organization [facility] Address [address] [address] Care Team Providers Name Role Phone Po Coats MD Primary Care Provider Reason for Visit Reason Comments Abdominal Pain Encounter Details Date Type Department Care Team Description 03/12/2016 Hospital Encounter [facility] Teresa Delacruz ominal pain, Care MD Homero unspecified location [address] [address] [phone] Social History Tobacco Use Types Packs/Day Years [...] Sign Reading Time Taken Comments Blood Pressure 156/77 03/12/2016 4:42 PM CARAMEL CUTTER HELPER Pulse 59 03/12/2016 4:42 PM CARAMEL CUTTER HELPER Temperature 36.2 ??C (97.2 ??F) 03/12/2016 4:42 PM CARAMEL CUTTER HELPER Respiratory Rate 22 03/12/2016 4:42 PM CARAMEL CUTTER HELPER Oxygen Saturation 97% 03/12/2016 4:42 PM CARAMEL CUTTER HELPER Inhaled Oxygen Concentration - - Weight - [...] ADULT OR) mouth daily (every 24 hours). ciprofloxacin (CIPRO) 500 Take 1 Tab by 20 Tab 0 016 03/22/2016 MG tablet mouth two times a day for 10 days. metroNIDAZOLE (FLAGYL) 500 Take 1 Tab by 30 Tab 0 201503/22/2016 MG tablet mouth three times a day for 10 days. atorvastatin (LIPITOR) 20 Take 1 tablet by 90 tablet 3 04/1605/21/2016 MG tabletIndications: mouth daily (every Hyperlipidemia (HRC) 24 hours). documented as of this encounter ED Notes Homero Delacruz MD - 03/13/2016 8:30 AM CST NAME: NICOLETTE RICE MR#: [id number] CSN: [id number] AUTHENTICATING CLINICIAN: Homero Delacruz MD CONFIRM #: [id number] LOC: 520 URGENT CARE PROGRESS NOTE DATE OF VISIT: 03/12/2016 : 1950 He is a 65-year-old male complaining of 3 days of left lower quadrant/lateral pain intermittently, worse when he is sitting down. He had diverticulitis twice. Even though he tells me that his last colonoscopy was normal, upon reviewing the report by Dr. Derick Chavez, I noticed that one 4 mm polyp in the mid transverse colon was resected, and a few 2-3 mm polyps in the rectum were noted and resected. Diverticulosis from the sigmoid to the ascending colon was noted. Pathology showed: 1.Tubular adenoma. 2.Fragment of hyperplastic polyp from the rectum. The patient tells me that he has not had much of a bowel movement for the last 3 days. He does not have history of constipation. Denies nausea, bloody or tarry stools. He has had normal appetite. No fever. His primary physician is Dr. Coats, and when he communicated with his office, he ordered him a prescription for Cipro and Flagyl but I asked him to first come for evaluation here. PAST MEDICAL HISTORY: I reviewed in [facility]. ALLERGIES: I reviewed in [facility]. MEDICATION: I reviewed in [facility]. EXAM: VITALS: I reviewed in [facility]. He does not look ill. He is overweight. Normal skin color. No scleral jaundice. Oral mucosa moist. LUNGS: Clear bilaterally to auscultation. Bowel sounds present. There is mild tenderness, at worst, in the left lower quadrant area. There is no rebound tenderness, and obturator sign is negative. ASSESSMENT: Left lower quadrant pain. Differential diagnosis may include diverticulitis and constipation. However, if symptoms are not improving, referring to his colonoscopy, we should entertain imaging. PLAN: He will, indeed, fill the prescription for the Flagyl and Cipro and for the next couple days will beon a clear liquid diet and advance as tolerated. He will watch for fever, chills, sweats, bloody stools, nausea, or vomiting. OS:MEDQ C: CONFIRM #: [id number] MEL CUTTER HELPER documented in this encounter Plan of Treatment Not on filedocumented as of this encounter Visit Diagnoses Diagnosis Abdominal pain, unspecified location Triage Assessment Note - Maicol Jones RN - 03/12/2016 4:41 PM CST Patient complains of lower left quadrant abdominal pain onset , states he has not had a goodbowel movement since , denies vomiting or nausea MEL CUTTER HELPER documented in this encounter Care Teams Allocations Clerk Relationship Specialty Start Date End Date Po Coats MD PCP - General 08/07/12 [address] [address] [address] documented as of this encounter
--- OUTSIDE RECORDS SUMMARY | 2022-01-20 08:13 | XMS_ITS | Encounter Summary ---
:1950 Author Organization [employer] Address [address] [address] Care Team Providers Name Role Phone Po Coats MD Primary Care Provider Reason for Visit Reason Onset Date Comments DIVERTICULITIS 03/12/2016 Encounter Details Date Type Department Care Team Description 03/12/2016 Telephone [facility] Carlo Coats MD DIVERTICULITIS Medicine [id number] [place] [address] [place] [address] [phone] Social History Tobacco Use Types Packs/Day Years [...] encounter Nursing Notes Maegan Banegas LPN - 03/12/2016 3:16 PM CST Phoned patient and relayed information and recommendations per Dr. Coats. EYBALL PLAYER Po Coats MD - 03/12/2016 3:06 PM CST Hard to say over the phone if his symptoms are consistent with diverticulitis. It is noted on his chart that he just finished a course of Augmentin which also treats diverticulitis. It would be very unusual to develop diverticulitis so quickly after finishing those antibiotics. I did send a refill of the antibiotics for him but he may want to monitor his symptoms for now or come in to urgent care forevaluation. EYBALL PLAYER Adolfo Cardona, REJI - 03/12/2016 12:49 PM CST Reason for Call: medication request Next Steps: Document further recommendations and route to appropriate person or pool. Caller IS expecting a call back from Care Team. Additional Information: Pt asking medication for possible diverticulitis. Pt was seen on 01/11/16 for diverticulitis f/u. Pt has had intermittent pain LUQ since Saturday. Increased pain with sitting then less with standing. Has had BM but little constipated. Denies fever, blood in stool, or N/V. Pt wonders if pcp can prescribe abx. Pharmacy verified. Please review and advise. EYBALL PLAYER Gigi Stafford - 03/12/2016 11:40 AM CST Patient requesting call back from PCP, says he is having digestive issues and needs prescription. Please advise. EYBALL PLAYER documented in this encounter Plan of Treatment Not on filedocumented as of this encounter Visit Diagnoses Not on filedocumented in this encounter Care Teams Optimization Manager Relationship Specialty Start Date End Date Po Coats MD PCP - General 08/07/12 [address] [address] [place] [address] documented as of this encounter
--- OUTSIDE RECORDS SUMMARY | 2022-01-20 08:13 | XMS_ITS | Encounter Summary ---
:1950 Author Organization [employer] Address [address] [address] Care Team Providers Name Role Phone Po Coats MD Primary Care Provider Reason for Visit Reason Comments Back Pain f/u UC ABDOMINAL PAIN gallstone - FV Encounter Details Date Type Department Care Team Description 08/24/2016 Office Visit [facility] Po Coats, igsele right- sided low back pain without sciatica (Primary Dx); Medicine Diverticulitis of large intestine with p erforation without bleeding [address] [place] [address] [place], [place] [phone] [address] Social History Tobacco Use Types Packs/Day Years [...] Sign Reading Time Taken Comments Blood Pressure 138/86 08/24/2016 8:29 AM CDT Pulse 64 08/24/2016 8:29 AM CDT Temperature - - Respiratory Rate - - Oxygen Saturation - - Inhaled Oxygen Concentration - - Weight 119.7 kg (264 lb) 08/24/2016 8:29 AM CDT Height - - Body Mass Index 38.97 10/27/2015 11:59 AM CDT documented in this encounter Progress Notes Po Coats MD - 08/24/2016 1:02 PM CDT SUBJECTIVE: 65-year-old male who presents to clinic for hospital and urgent care follow-up. Patient underwent sigmoid colectomy in May 2016 after presenting to the emergency room with a perforated diverticulitis. He was treated at [facility] in [place]. Patient states he occasionally will get a very brief sensation of discomfort in his left lower quadrant abdomen but it typically is mild in severity and only last for less than 15 seconds. Bowel movements are completely normal. These attacks are very rare. No blood in the stools or fevers. No tenderness to deep palpation in that area. Patient was also recently seen in urgent care with a bad cough. He continues to cough but significantly improved. Patient states his right lower back pain was almost resolved but then he coughs again and it seems to flare it up. Twisting motions make it the worst and lifting also hurts. He feels better sitting down or laying down. As the cough has improved, overall the back pain has also improved. Sitting still there is no pain. Past Medical History Reviewed and updated in EMR. Past Surgical History Procedure Laterality Date ??? Shoulder surgery ??? Bladder surgery 2013 Current Outpatient Prescriptions Medication Sig Note Dispense Refill ??? amoxicillin-clavulanate (AUGMENTIN) 875-125 mg per tablet Take 1 Tab by mouth two times a day for 10 days. Take with food 12 hours apart. 20 Tab 0 ??? aspirin EC 81 MG enteric coated tablet Take 1 tablet by mouth daily (every 24 hours). 100 tablet3 ??? atorvastatin (LIPITOR) 20 MG tablet Take 1 Tab by mouth daily. 90 Tab 2 ??? magnesium 250 MG Take 250 mg by mouth daily (every 24 hours). ??? Multiple Vitamins-Minerals (MULTIVITAMIN ADULT OR) Take 1 tablet by mouth daily (every 24 hours). ??? naproxen sodium (ANAPROX) 220 MG tablet Take 220 mg by mouth two times a day with meals. ??? Probiotic Product (ACIDOPHILUS/GOAT MILK) Take by mouth. 05/19/2016: Received from: [facility] ??? psyllium (KONSYL) 30.9 % powder Take by mouth daily. No current facility-administered medications for this visit. No Known Allergies Social History Social History ??? Marital Status: [...] ??? Not on file Social History Narrative REVIEW OF SYSTEMS: Patient otherwise feels well and denies headaches, dizziness, chest pain, palpitations, shortness ofbreath, cough, dyspnea on exertion, abdominal pain, nausea, vomiting, diarrhea, urinary frequency and dysuria, rashes, fevers, fatigue, swelling. EXAMINATION: VITAL SIGNS: Please see EMR. GENERAL: Patient is alert, oriented, and in no apparent distress. HEENT: Within normal limits. Neck is supple without adenopathy, JVD or thyroid abnormality. CARDIOVASCULAR: Regular rate and rhythm without murmurs, rubs, gallops. LUNGS: Clear. ABDOMEN: Soft, nontender, and nondistended with normal bowel sounds. No organomegaly or palpable masses. EXTREMITIES: Reveal good pulses with no edema. BACK: Normal vertebral alignment. Slight paraspinal muscle tenderness and tightness on the right lowback. He has full active range of motion of the back with mild to moderate discomfort in the right lower back. Straight leg raising was negative. Neurovascular status of the lower extremities is normal. ASSESSMENT/PLAN: #1 diverticulitis tfqiyd-[id number]-[id number] is completely normal and his symptoms are not concerning forrecurrence. We will have him continue to monitor. Patient is educated on diverticulitis symptoms. #2 right low back pain-suspect musculoskeletal cause. We went for acute low back pain pamphlet together in detail. Again, patient states it started quite a bit better. Coughing seems to flare it up. Again overall his cough is definitely getting better though. His lungs sound great today. Continue withconservative management to return to clinic if not continuing to improve. documented in this encounter Plan of Treatment Not on filedocumented as of this encounter Visit Diagnoses Diagnosis Chronic right-sided low back pain withou t sciatica - Primary Diverticulitis of large intestine with p erforation without bleeding documented in this encounter Care Teams Assembly Detailer Relationship Specialty Start Date End Date Po Coats MD PCP - General 08/07/12 [address] [place] [address] documented as of this encounter
--- OUTSIDE RECORDS SUMMARY | 2022-01-20 08:13 | XMS_ITS | Encounter Summary ---
:1950 Author Organization [employer] Address [address], [place] [address] Care Team Providers Name Role Phone Tio Gonzalez MD Primary Care Provider Reason for Visit Reason Onset Date Comments Refill 03/06/2017 atorvastatin (LIPITO R) 20 MG tablet Encounter Details Date Type Department Care Team Description 03/06/2017 Refill [facility] Carlo Gonzalez MD Refill (atorvastatin Medicine [address] [facility] (LIPITOR) 20 MG tablet) [address] [place], [place] [id number] [place] [address] [phone] Social History Tobacco Use Types Packs/Day Years [...] encounter Nursing Notes Malinda Anderson RN - 03/08/2017 8:26 PM CST Renewed medication per medication refill protocol. Requested Prescriptions Signed Prescriptions Disp Refills ??? atorvastatin (LIPITOR) 20 MG tablet 90 Tab 1 Sig: Take 1 Tab by mouth daily. Authorizing Provider: TIO GONZALEZ Ordering User: MALINDA ANDERSON ER OPERATOR Interface, Out [employer] Prov Query - 03/06/2017 2:13 PM CST atorvastatin (LIPITOR) 20 MG tablet Medication started: 01/08/2014 Last ordered by TIO GONZALEZ (288 days ago) QTY: 90, Refills: 2, Sig: take 1 tab bymouth daily. (unchanged) -> This medication may not have been authorized by the requested provider. -> Refill x 6 months, qty: 90, refills: 1 (until due for an office visit) Last qualifying visit: 09/05/2016 (with TIO GONZALEZ) Next scheduled visit: None Powered by [employer], Reference: [id number], 03/06/2017 2:13:19 PM LOOPER OPERATOR, Pool: KENISHA KEARNEY REFILL ([id number]) ER OPERATOR Full, Lesly Tucker - 03/06/2017 2:13 PM LOOPER OPERATOR From: Raul Dickson To: Tio Gonzalez MD Sent: 03/06/2017 12:42 PM LOOPER OPERATOR Subject: Medication Renewal Request Original authorizing provider: MD Raul Ibrhaim would like a refill of the following medications: atorvastatin (LIPITOR) 20 MG tablet [Tio Gonzalez MD] Preferred pharmacy: [id number] [address] [address] Comment: ER OPERATOR documented in this encounter Plan of Treatment Not on filedocumented as of this encounter Visit Diagnoses Diagnosis Hyperlipidemia, unspecified hyperlipidem ia type (HRC) documented in this encounter Care Teams Wood Veneer Taper Relationship Specialty Start Date End Date Tio Gonzalez MD PCP - General 08/07/12 [address] [address] [address] documented as of this encounter
--- OUTSIDE RECORDS SUMMARY | 2022-01-20 08:14 | XMS_ITS | Encounter Summary ---
:1950 Author Organization [facility] Address [address] [address] Care Team Providers Name Role Phone Po Coats MD Primary Care Provider Reason for Visit Reason Comments Refill Encounter Details Date Type Department Care Team Description 12/17/2014 Refill [facility] Stephanie Coulter MD Refill [address] [facility] [address] [place] [address] [place] [address] (Wo rk) Social History Tobacco Use Types Packs/Day Years Used Date Smoking Tobacco: Never Assessed Sex Assigned at Date Recorded Not on file documented as of this encounter Nursing Notes Blanca Lynn RN - 12/17/2014 10:34 AM CDT From: Raul Lori Randolph To: Stephanie Coulter MD Sent: 12/17/2014 10:12 AM CDT Subject: Medication Renewal Request Original authorizing provider: MD Raul Velasco would like a refill of the following medications: mirabegron (MYRBETRIQ) 25 mg tablet [Stephanie Coulter MD] Preferred pharmacy: [place], [place] - [address] [facility] Comment: documented in this encounter Miscellaneous Notes Refill (Converted) - Mychart, Generic Provider - 12/17/2014 10:12 AM CDT Medication Renewal Request From User: Original authorizing provider: Stephanie Coulter MD Raul Dickson would like a refill of the following medications: mirabegron (MYRBETRIQ) 25 mg tablet [Stephanie Coulter MD] Preferred pharmacy: [facility] [place] - [address] [address] Comment: PATIONAL HEALTH AND SAFETY MANAGER documented in this encounter Plan of Treatment Not on filedocumented as of this encounter Visit Diagnoses Not on filedocumented in this encounter Care Teams Malted Milk Mixer Relationship Specialty Start Date End Date Po Coats MD PCP - General 08/07/[address] [place] [place] [address] documented as of this encounter
--- OUTSIDE RECORDS SUMMARY | 2022-01-20 08:14 | XMS_ITS | Encounter Summary ---
:1950 Author [facility] Address [address], [place] [address] Care Team Providers Name Role Phone Po Coats MD Primary Care Provider Reason for Visit Reason Comments Follow-up Encounter Details Date Type Department Care Team Description 12/01/2015 Office Visit [facility] Stephanie Coulter, Bladder instability [address] [facility] [place] [address] [facility] [phone] [place] [address] (Wo rk) Social History Tobacco Use Types Packs/Day Years Used Date Smoking Tobacco: Never Assessed Sex Assigned at Date Recorded Not on file documented as of this encounter Progress Notes Stephanie Coulter MD - 12/01/2015 8:46 AM CDT Progress Notes signed by Stephanie Coulter MD at 12/05/152054 Author: Stephanie Coulter MD Service: (none) Author Type: Physician Filed: 12/05/152054 Note Time: 12/01/151117 Status: Signed Sheet Metal Shop Helper: Stephanie Coulter MD (Physician) NAME: NICOLETTE RICE MR#: [id number] CSN: [id number] AUTHENTICATING CLINICIAN: Stephanie Coulter MD CONFIRM #: [id number] LOC: 517 CLINIC PROGRESS NOTE DATE OF VISIT: 12/01/2015 : 1950 CLINICAL DATA: Nicolette is a very pleasant 65-year-old man with a history of BPH, urinary tract infections, and de novourgency and frequency and nocturia. Patient did well on a combination of oxybutynin and Myrbetriq. Unfortunately, the medication became too costly. Therefore, we had him undergo urodynamics that showedmild detrusor instability. He also was drinking some bladder irritants. I had the patient undergo Botox to the bladder, and he is here for followup. The patient has noticed some improvement during the day where he does not have quite as much urinary frequency and urgency. It takes him 2-3 times in themorning to empty his bladder with which he is not thrilled, but overall he thinks that things are a l ittle better. PVR today is 348. 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 PLAN: It looks like the Botox worked. It may have worked a little bit too well. I think with time the Botox will wear off and he will get to a nice place where he is urinating less often but the strength of stream has come back. Will have the patient follow up in 3 months just to check a PVR. Total Time: 10 minutes. Counseling Time: 6 minutes. JR:TENZIN C: CONFIRM #: [id number] documented in this encounter Plan of Treatment Not on filedocumented as of this encounter Procedures Procedure Name Priority Date/Time Associated Comments Diagnosis AUTOMATED URINALYSIS Routine 12/01/2015 8:42 AM R esults for this DIPSTICK POCT CDT procedure are in the results section. documented in this encounter Results Urinalysis Dipstick (12/01/2015 8:42 AM CDT) [facility] Method Time Signature Urine Glucose Negative mg/dL HP CONVERSION (POC) Urine Bilirubin Negative HP CONVERSION (POC) Urine Ketone Negative mg/dL HP CONVERSION (POC) Urine Specific 1.025 HP CONVERSION [place] (POC) Urine Occult Negative HP CONVERSION Blood (POC) Urine PH (POC) 6.5 HP CONVERSION Urine Protein Negative HP CONVERSION (POC) Urine Negative mg/dL HP CONVERSION Urobilinogen (POC) Urine Nitrite Negative HP CONVERSION (POC) Urine Leukocytes Negative HP CONVERSION (POC) Urine Color Yellow HP CONVERSION (POC) Urine Appearance Clear HP CONVERSION (POC) Comment: Performed by: [place] [address] [id number] [address] Number (POC) [id number] mg/dL HP CONV ERSION Specimen Anatomical Collection Method Collection Time Receive d Time (Source) Location / / Volume Laterality 12/01/2015 8:42 AM 6 8:40 CDT AM CDT Stephanie Coulter MD LAB_1 Performing Organization Address City/State/ZIP Code Phon e Number HP CONVERSION documented in this encounter Visit Diagnoses Diagnosis Bladder instability Other specified disorders of bladder documented in this encounter Care Teams Systems Consultant Relationship Specialty Start Date End Date Po Coats MD PCP - General 08/07/[address] [address] documented as of this encounter
--- OUTSIDE RECORDS SUMMARY | 2022-01-20 08:14 | XMS_ITS | Encounter Summary ---
:1950 Author Organization [employer] Address [address] [address] Care Team Providers Name Role Phone Po Coats MD Primary Care Provider Reason for Visit Reason Comments Eye Exam Encounter Details Date Type Department Care Team Description 12/21/2014 Office Visit [facility] on of eyes and vision (Primary Dx); Ophthalmology OD Hyperopia with astigmatism and presbyopi a, bilateral [address] [place] [address] [place], [place] [phone] (Wo rk) Social History Tobacco Use Types Packs/Day Years Used Date Smoking Tobacco: Never Assessed Sex Assigned at Date Recorded Not on file documented as of this encounter Patient Instructions Patient InstructionsPj Piedra, OD - 12/21/2014 8:25 AM CDT You do not need any glasses correction for objects over 20 feet away. You may continue with mpgg-cpf-dzdxvaw readers as needed. If you are interested in an alternative to wiec-fcl-vowyjya reading glasses, consider a special use pair of glasses known as a TASK or TACT 40 lens. Compared to general progressive lenses these are specialty workstation glasses that: ?? Provide improved clarity in both near and intermediate viewing zones ?? Deliver exceptionally wide and generous intermediate and near viewing zones ?? Provide virtually no peripheral (sides of lens) distortion ?? [place] at indoor visual activities such as extended computer use and reading These lenses do not require a special prescription so the one written today will work for this application. Please realize that this style of lens is not intended for timers inspector wear (not for driving!).Feel free to discuss these lenses as well as other options such as Proximity glasses (no prescription necessary) with our specialists at [facility]. documented in this encounter Progress Notes Pj Piedra, OD - 12/21/2014 8:26 AM CDT GENERAL MEDICAL OBSERVATION: ?? Patient is alert, cooperative, pleasant and appears basically healthy ASSESSMENT: ?? In general, a routine comprehensive eye exam with findings of normal eye health for age overall, both eyes (see complete eye exam notes) ?? 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 Watch for changes ?? Discussed findings ?? Spectacle Rx optional; ritten to patient Discussed TASK or TACT 40 style near biased lens design for computer / reading intensive demands ?? Next recommended eye exam in 1 year or as needed documented in this encounter Plan of Treatment Not on filedocumented as of this encounter Visit Diagnoses Diagnosis Examination of eyes and vision - Primary Hyperopia with astigmatism and presbyopi a, bilateral documented in this encounter Care Teams Metal Crafts Teacher Relationship Specialty Start Date End Date Po Coats MD PCP - General 08/07/12 [address] [address] [address] documented as of this encounter
--- OUTSIDE RECORDS SUMMARY | 2022-01-20 08:14 | XMS_ITS | Encounter Summary ---
:1950 Author Organization [employer] Address [address], [place] [address] Care Team Providers Name Role Phone Po Coats MD Primary Care Provider Reason for Visit Reason Comments Refill Encounter Details Date Type Department Care Team Description 02/17/2015 Refill [facility] Stephanie Coulter MD Refill [id number] [facility] [address] [place] [address] [place] [address] (Wo rk) Social History Tobacco Use Types Packs/Day Years Used Date Smoking Tobacco: Never Assessed Sex Assigned at Date Recorded Not on file documented as of this encounter Nursing Notes Blanca Lynn RN - 02/18/2015 7:53 AM VACCINE CUSTOMER REPRESENTATIVE From: Raul Lori Randolph To: Stephanie Coulter MD Sent: 02/17/2015 5:52 PM VACCINE CUSTOMER REPRESENTATIVE Subject: Medication Renewal Request Original authorizing provider: Stephanie Coulter MD Raul Sandoval Randolph would like a refill of the following medications: oxybutynin (DITROPAN-XL) 10 mg 24 hr tablet [Stephanie Coulter MD] Preferred pharmacy: [place], [place] - [address] [facility] Comment: Medication renewals requested in this message routed to other providers: atorvastatin (LIPITOR) 20 mg tablet [Po Coats MD] documented in this encounter Miscellaneous Notes Refill (Converted) - Mychart, Generic Provider - 02/17/2015 5:52 PM VACCINE CUSTOMER REPRESENTATIVE Medication Renewal Request From User: Original authorizing provider: Stephanie Coulter MD Raul Dickson would like a refill of the following medications: oxybutynin (DITROPAN-XL) 10 mg 24 hr tablet [Stephanie Coulter MD] Preferred pharmacy: [facility] [address] Comment: Medication renewals requested in this message routed to other providers: atorvastatin (LIPITOR) 20 mg tablet [Po Coats MD] INE CUSTOMER REPRESENTATIVE documented in this encounter Plan of Treatment Not on filedocumented as of this encounter Visit Diagnoses Not on filedocumented in this encounter Care Teams Can Coverer Relationship Specialty Start Date End Date Po Coats MD PCP - General 08/07/[address] [place] [address] documented as of this encounter
--- OUTSIDE RECORDS SUMMARY | 2022-01-20 08:14 | XMS_ITS | Encounter Summary ---
:1950 Author Organization [employer] Address [address] [address] Care Team Providers Name Role Phone Tio Gonzalez MD Primary Care Provider Reason for Visit Reason Comments Refill Encounter Details Date Type Department Care Team Description 08/15/2015 Refill [facility] Tio Gonzalez MD Refill [address] [facility] [address] [place] [address] [place] [address] [phone] (Wo rk) Social History Tobacco Use Types Packs/Day Years Used Date Smoking Tobacco: Never Assessed Sex Assigned at Date Recorded Not on file documented as of this encounter Nursing Notes Arun Noonan - 08/16/2015 8:12 AM CDT Requested prescription was last renewed on 05/04/15 and sent to [facility] pharmacy. Pt notified via [employer]. Requested Prescriptions Refused Prescriptions Disp Refills ??? atorvastatin (LIPITOR) 20 mg tablet 90 tablet 2 Sig: Take 1 tablet by mouth daily (every 24 hours). Refused By: ARUN NOONAN Reason for Refusal: Request Already Responded To By Other Means VE MAKER Brenda Arciniega - 08/16/2015 8:12 AM CDT atorvastatin (LIPITOR) 20 mg tablet - MEDICATION STARTED: 01/08/2014 - LAST REFILLED ON: 05/04/2015, QTY: 90, Refills: 3, Sig: take 1 tablet by mouth daily (every 24 hours). (unchanged) - WARNING: The patient should have outstanding refills for this medication until 01/29/2016. - REFILL: 9 months (if warnings resolved) - RATIONALE: This refill should last until the patient is due for an office visit. - LAST QUALIFYING VISIT WITH TIO GONZALEZ: 05/04/2015 - NEXT SCHEDULED VISIT: None Powered by [employer], Reference: [id number], 08/16/2015 8:10:48 AM CDT, Pool: KENISHA DAIGLEED REFILL ([id number]) Camelia Cardenas RN - 08/16/2015 8:10 AM CDT From: Nicolette Rice To: Tio Gonzalez MD Sent: 08/15/2015 7:23 PM CDT Subject: Medication Renewal Request Original authorizing provider: MD Nicolette Ibrahim would like a refill of the following medications: atorvastatin (LIPITOR) 20 mg tablet [Tio Gonzalez MD] Preferred pharmacy: [facility] [address] Comment: Medication renewals requested in this message routed to other providers: oxybutynin (DITROPAN-XL) 10 mg 24 hr tablet [Stephanie Coulter MD] mirabegron (MYRBETRIQ) 25 mg tablet [Stephanie Coulter MD] VE MAKER documented in this encounter Miscellaneous Notes Refill (Converted) - Jd, Generic Provider - 08/16/2015 8:12 AM CDT RE: Medication Renewal Request From User: ARUN NOONAN The denial you have just received is because the prescription that was requested has already been transmitted to a pharmacy. Your Rx for Atorvastatin (Lipitor) 20 mg tablet was sent to [place], [place] ( ) on 05/04/15 for a year supply. Please contact pharmacy for refill. If you need to switch pharmacies, please contact your preferred pharmacy to transfer your prescription(s). Thank you. ----- Message ----- From: NICOLETTE RICE Sent: 08/15/2015 7:23 PM CDT To: Tio Gonzalez MD Subject: Medication Renewal Request Original authorizing provider: MD Nicolette Ibrahim would like a refill of the following medications: atorvastatin (LIPITOR) 20 mg tablet [Tio Gonzalez MD] Preferred pharmacy: [facility] [address] [address] Comment: Medication renewals requested in this message routed to other providers: oxybutynin (DITROPAN-XL) 10 mg 24 hr tablet [Stephanie Coulter MD] mirabegron (MYRBETRIQ) 25 mg tablet [Stephanie Coulter MD] documented in this encounter Plan of Treatment Not on filedocumented as of this encounter Visit Diagnoses Diagnosis Hyperlipidemia (HRC) Other and unspecified hyperlipidemia documented in this encounter Care Teams Fisheries Technical Officer Relationship Specialty Start Date End Date Tio Gonzalez MD PCP - General 08/07/12 [address] [place] [address] documented as of this encounter
--- OUTSIDE RECORDS SUMMARY | 2022-01-20 08:14 | XMS_ITS | Encounter Summary ---
:1950 Author Organization [employer] Address [address] [address] Care Team Providers Name Role Phone Po Coats MD Primary Care Provider Reason for Visit Reason Comments Refill Encounter Details Date Type Department Care Team Description 05/25/2015 Refill [facility] Stephanie Coulter MD Refill [address] [facility] [address] [place] [address] [place] [address] (Wo rk) Social History Tobacco Use Types Packs/Day Years Used Date Smoking Tobacco: Never Assessed Sex Assigned at Date Recorded Not on file documented as of this encounter Nursing Notes Blanca Lynn RN - 05/25/2015 2:44 PM MINE ENVIRONMENTAL ENGINEER From: Raul Lori Randolph To: Stephanie Coluter MD Sent: 05/25/2015 8:54 AM MINE ENVIRONMENTAL ENGINEER Subject: Medication Renewal Request Original authorizing provider: Stephanie Coulter MD Raul Sandoval Randolph would like a refill of the following medications: oxybutynin (DITROPAN-XL) 10 mg 24 hr tablet [Stephanie Coulter MD] mirabegron (MYRBETRIQ) 25 mg tablet [Stephanie Coulter MD] Preferred pharmacy: [place], [place] - [address] [facility] Comment: ENVIRONMENTAL ENGINEER documented in this encounter Miscellaneous Notes Refill (Converted) - Jd, Generic Provider - 05/25/2015 8:54 AM MINE ENVIRONMENTAL ENGINEER Medication Renewal Request From User: Original authorizing provider: Stephanie Coulter MD Raul Dickson would like a refill of the following medications: oxybutynin (DITROPAN-XL) 10 mg 24 hr tablet [Stephanie Coulter MD] mirabegron (MYRBETRIQ) 25 mg tablet [Stephanie Coulter MD] Preferred pharmacy: [facility] [address] [address] Comment: documented in this encounter Plan of Treatment Not on filedocumented as of this encounter Visit Diagnoses Not on filedocumented in this encounter Care Teams Outreach And Education Social Worker Relationship Specialty Start Date End Date Po Coats MD PCP - General 08/07/12 [address] [place] [address] [address] documented as of this encounter
--- OUTSIDE RECORDS SUMMARY | 2022-01-20 08:14 | XMS_ITS | Encounter Summary ---
:1950 Author Organization [employer] Address [address], [place] [address] Care Team Providers Name Role Phone Po Coats MD Primary Care Provider Reason for Visit Reason Comments Refill Encounter Details Date Type Department Care Team Description 11/25/2014 Refill [facility] Stephanie Son MD Refill [address] [facility] [address] [place] [address] [place], [place] [phone] (Wo rk) Social History Tobacco Use Types Packs/Day Years Used Date Smoking Tobacco: Never Assessed Sex Assigned at Date Recorded Not on file documented as of this encounter Nursing Notes Stephanie Son MD - 11/25/2014 12:51 PM CDT From: Nicolette Rice To: Stephanie Son MD Sent: 11/25/2014 8:04 AM CDT Subject: Medication Renewal Request Original authorizing provider: MD Nicolette Velasco would like a refill of the following medications: oxybutynin (DITROPAN-XL) 10 mg 24 hr tablet [Stephanie Son MD] Preferred pharmacy: [place], [place] - [address] [facility] Comment: Medication renewals requested in this message routed to other providers: atorvastatin (LIPITOR) 20 mg tablet [Po Coats MD] documented in this encounter Miscellaneous Notes Refill (Converted) - Mychart, Generic Provider - 11/25/2014 12:52 PM CDT RE: Medication Renewal Request From User: STEPHANIE SON Prescription sent. ----- Message ----- From: NICOLETTE RICE Sent: 11/25/2014 8:04 AM CDT To: Stephanie Son MD Subject: Medication Renewal Request Original authorizing provider: MD Nicolette Velasco would like a refill of the following medications: oxybutynin (DITROPAN-XL) 10 mg 24 hr tablet [Stephanie Son MD] [facility] [address] [address] Comment: Medication renewals requested in this message routed to other providers: atorvastatin (LIPITOR) 20 mg tablet [Po Coats MD] IMEN ACCESSIONER documented in this encounter Plan of Treatment Not on filedocumented as of this encounter Visit Diagnoses Not on filedocumented in this encounter Care Teams Group Cio Relationship Specialty Start Date End Date Po Coats MD PCP - General 08/07/12 [address] [place] [address] documented as of this encounter
--- OUTSIDE RECORDS SUMMARY | 2022-01-20 08:14 | XMS_ITS | Encounter Summary ---
:1950 Author [facility] Address [address] [address] Care Team Providers Name Role Phone Po Coats MD Primary Care Provider Encounter Details Date Type Department Care Team Description 05/04/2015 Lab Visit [facility] Annual physical exam [address] [place] [address] Social History Tobacco Use Types Packs/Day Years Used Date Smoking Tobacco: Never Assessed Sex Assigned at Date Recorded Not on file documented as of this encounter Plan of Treatment Not on filedocumented as of this encounter Procedures Procedure Name Priority Date/Time Associated Comments Diagnosis LIPID PANEL AND Routine 05/04/2015 9:11 AM Annual physical Res ults for this DIRECT LDL(IF NEEDED) BOOKMAKER'S CLERK exam proced ure are in the results section. VITAMIN D 25-HYDROXY, Routine 05/04/2015 9:11 AM Annual physic al Results for this TOTAL BOOKMAKER'S CLERK exam procedure are i n the results section. COMPLETE BLOOD Routine 05/04/2015 9:11 AM Annual physical Resu lts for this COUNT-W/DIFF BOOKMAKER'S CLERK exam procedure are i n the results section. LIVER PANEL(HEPATIC Routine 05/04/2015 9:11 AM Annual physical Results for this FUNCTION PANEL) BOOKMAKER'S CLERK exam procedure ar e in the results section. BASIC METABOLIC PANEL Routine 05/04/2015 9:11 AM Annual physic al Results for this BOOKMAKER'S CLERK exam procedure are i n the results section. PROSTATIC SPECIFIC Routine 05/04/2015 9:11 AM Annual physical Results for this ANTIGEN(SCREEN) BOOKMAKER'S CLERK exam procedure ar e in the results section. DIFFERENTIAL Routine 05/04/2015 9:11 AM Results f or this BOOKMAKER'S CLERK procedure are i n the results section. HGB A1C Routine 05/04/2015 9:11 AM Annual physical Result s for this BOOKMAKER'S CLERK exam procedure are i n the results section. documented in this encounter Results (ABNORMAL) Differential (05/04/2015 9:11 AM BOOKMAKER'S CLERK) [facility] gist Method Time Signature Absolute 5.4 1.8 - 8.0 HP CONVERSION Neutrophils k/cmm Absolute 2.2 1.1 - 4.0 HP CONVERSION Lymphocytes k/cmm Absolute 0.7 0.2 - 0.8 HP CONVERSION Monocytes k/cmm Absolute 0.3 0.0 - 0.5 HP CONVERSION Eosinophils k/cmm Absolute 0.1 0.0 - 0.2 HP CONVERSION Basophils k/cmm Immature 0.6 (H) 0.0 - 0.5 HP CONVERSION Granulocytes % Specimen Anatomical Collection Method Collection Time Receive d Time (Source) Location / / Volume Laterality 05/04/2015 9:11 AM 6 9:11 BOOKMAKER'S CLERK AM BOOKMAKER'S CLERK Narrative HP CONVERSION - 05/04/2015 9:19 AM BOOKMAKER'S CLERK Performed at [facility], [address] [place] [id number] CLIA number [id number] Po Coats MD LAB_1 Performing Organization Address City/[facility] Phon e Number HP CONVERSION (ABNORMAL) Hgb A1c (05/04/2015 9:11 AM BOOKMAKER'S CLERK) athologist [facility] HGB A1C 5.7 (H) 4.0 - 5.6 % HP CONVERSION Specimen Anatomical Collection Method Collection Time Receive d Time (Source) Location / / Volume Laterality 05/04/2015 9:11 AM 6 BOOKMAKER'S CLERK 12:32 PM BOOKMAKER'S CLERK Narrative HP CONVERSION - 05/04/2015 9:44 PM BOOKMAKER'S CLERK Performed at [address] [place] [address] [address] CLIA number [id number] Po Coats MD LAB_1 Performing Organization Address City/[facility] Code Phon e Number HP CONVERSION Prostatic Specific Antigen (Screen) (05/04/2015 9:11 AM BOOKMAKER'S CLERK) athologist Signature Prostate 1.0 0.0 - 4.0 HP CONVERSION Specific ng/mL Antigen Comment: The Iyer PSA Chemiluminescent immunoas say is used. Results obtained with different test met hods or kits cannot be used interchangeably. Specimen Anatomical Collection Method Collection Time Receive d Time (Source) Location / / Volume Laterality 05/04/2015 9:11 AM 6 BOOKMAKER'S CLERK 12:35 PM BOOKMAKER'S CLERK Narrative HP CONVERSION - 05/04/2015 4:42 PM BOOKMAKER'S [place] [address] CLIA number [id number] Po Coats MD LAB_1 Performing Organization Address City/[facility] Phon e Number HP CONVERSION (ABNORMAL) Vitamin D 25-Hydroxy, Total (05/04/2015 9:11 AM BOOKMAKER'S CLERK) athologist [facility] Vitamin D 25 17 (L) 20 - 80 HP CONVERSION Oh ng/mL Comment: Deficiency = <20 Adequate ??= 20-29 Preferred = 30-50 Uncertain safety = 51-80 High = >80 Specimen Anatomical Collection Method Collection Time Receive d Time (Source) Location / / Volume Laterality 05/04/2015 9:11 AM 6 BOOKMAKER'S CLERK 12:33 PM BOOKMAKER'S CLERK Narrative HP CONVERSION - 05/04/2015 2:40 PM BOOKMAKER'S [place] [address] CLIA number [id number] Po Coats MD LAB_1 Performing Organization Address City/[facility] Phon e Number HP CONVERSION Lipid Panel and Direct LDL(If Needed) (05/04/2015 9:11 AM BOOKMAKER'S CLERK) [facility] Method Time Signature Cholesterol 153 0 - 199 HP CONVERSION mg/dL Triglycerides 91 4 - 149 HP CONVERSION mg/dL HDL Cholesterol 48 >39 mg/dL HP CONVERSION Cholesterol/HDL 3.2 HP CONVERSION Ratio Screen LDL Calculated 87 19 - 130 HP CONVERSION mg/dL Length Of Fast 10 HP CONVERSION Specimen Anatomical Collection Method Collection Time Receive d Time (Source) Location / / Volume Laterality 05/04/2015 9:11 AM 6 9:11 BOOKMAKER'S CLERK AM BOOKMAKER'S CLERK Narrative HP CONVERSION - 05/04/2015 10:12 AM BOOKMAKER'S CLERK Performed at [facility], [address] [place] [id number] CLIA number [id number] Po Coats MD LAB_1 Performing Organization Address [facility] Phon e Number HP CONVERSION Liver Panel(Hepatic Function Panel) (05/04/2015 9:11 AM BOOKMAKER'S CLERK) [facility] Method Time Signature Alk Phos 123 40 - 150 HP CONVERSION U/L Bilirubin Total 0.6 0.2 - 1.2 HP CONVERSION mg/dL Bilirubin, Direct 0.3 0.0 - 0.5 HP CONVERSIO N mg/dL Protein Total, Serum 6.9 6.4 - 8.3 HP CONVER DENIZ g/dL Albumin 3.7 3.4 - 5.0 HP CONVERSION g/dL Aspartate 21 9 - 34 HP CONVERSION Aminotransferase U/L Alanine 25 9 - 55 HP CONVERSION Aminotransferase U/L Specimen Anatomical Collection Method Collection Time Receive d Time (Source) Location / / Volume Laterality 05/04/2015 9:11 AM 6 9:11 BOOKMAKER'S CLERK AM BOOKMAKER'S CLERK Narrative HP CONVERSION - 05/04/2015 10:12 AM BOOKMAKER'S CLERK Performed at [facility], [address] [place] [address] CLIA number [id number] Po Coats MD LAB_1 Performing Organization Address [facility] Phon e Number HP CONVERSION (ABNORMAL) Basic Metabolic Panel (05/04/2015 9:11 AM BOOKMAKER'S CLERK) [facility] Method Time Signature Creatinine Serum 1.00 0.73 - HP CONVERSION 1.18 mg/dL Lab Glucose 119 (H) 60 - 100 HP CONVERSION mg/dL Bicarbonate 24 22 - 29 HP CONVERSION mmol/L Chloride 108 (H) 98 - 107 HP CONVERSION mmol/L Potassium 4.6 3.5 - 5.2 HP CONVERSION mmol/L Sodium 142 136 - 145 HP CONVERSION mmol/L Blood Urea 13 9 - 26 HP CONVERSION Nitrogen mg/dL Calcium 9.6 8.4 - 10.2 HP CONVERSION mg/dL Est GFR >60 >60 HP CONVERSION Am mL/min/1.7 3m2 Est GFR Non-Afr >60 >60 HP CONVERSION Am mL/min/1.7 3m2 Comment: Normal>60, moderate decrease 30 - 59, se carmelina decrease 15 - 29, renal failure <15 mL/min/1.73 m2 NOTE: ??Choose the eGFR result above amilcar ropriate for the race of the patient. Specimen Anatomical Collection Method Collection Time Receive d Time (Source) Location / / Volume Laterality 05/04/2015 9:11 AM 6 9:11 BOOKMAKER'S CLERK AM BOOKMAKER'S CLERK Narrative HP CONVERSION - 05/04/2015 10:12 AM BOOKMAKER'S CLERK Performed at [facility], [address] [place] [address] CLIA number [id number] Po Coats MD LAB_1 Performing Organization Address [facility] Phon e Number HP CONVERSION Complete Blood Count W/Diff (05/04/2015 9:11 AM BOOKMAKER'S CLERK) athologist Signature White Blood Cell 8.7 3.8 - 11.0 HP CONVERSIO N Count k/cmm Red Blood Cell 5.18 4.20 - HP CONVERSION Count 5.90 m/cmm Hemoglobin 15.1 13.4 - HP CONVERSION 17.5 g/dL Hematocrit 45.8 39.0 - HP CONVERSION 51.0 % Mean Corpuscular 88.4 80.0 - HP CONVERSION Volume 100.0 fL RDW 12.9 11.0 - HP CONVERSION 15.0 % Platelet Count 203 140 - 450 HP CONVERSION k/cmm Specimen Anatomical Collection Method Collection Time Receive d Time (Source) Location / / Volume Laterality 05/04/2015 9:11 AM 6 9:11 BOOKMAKER'S CLERK AM BOOKMAKER'S CLERK Narrative HP CONVERSION - 05/04/2015 9:19 AM BOOKMAKER'S CLERK Performed at [facility], [facility] [address] [place] [address] CLIA number [id number] Po Coats MD LAB_1 Performing Organization Address [facility] Phon e Number HP CONVERSION documented in this encounter Visit Diagnoses Diagnosis Annual physical exam Routine general medical examination at a health care facility documented in this encounter Care Teams Premium Card Cancellation Clerk Relationship Specialty Start Date End Date Po Coats MD PCP - General 08/07/12 [address] [place] [address] documented as of this encounter
--- OUTSIDE RECORDS SUMMARY | 2022-01-20 08:14 | XMS_ITS | Encounter Summary ---
:1950 Author Organization [facility] Address [address], [place] [address] Care Team Providers Name Role Phone Tio Coats MD Primary Care Provider Reason for Visit Reason Comments Sleep problems Encounter Details Date Type Department Care Team Description 10/14/2015 Procedure Visit [place] Areli wei Sleep problems [address] [place] [address] Social History Tobacco Use Types Packs/Day Years Used Date Smoking Tobacco: Never Assessed Sex Assigned at Date Recorded Not on file documented as of this encounter Progress Notes Victoriano Ayala - 10/14/2015 8:27 AM CDT Procedure completed. No complications. documented in this encounter Plan of Treatment Not on filedocumented as of this encounter Procedures Procedure Name Priority Date/Time Associated Diagnosis Comme nts ECHOCARDIOGRAM Routine 10/14/2015 8:15 AM Complex sleep apnea Results for this CDT syndrome procedure are i n the results section . documented in this encounter Results Echocardiogram (10/14/2015 8:15 AM CDT) Specimen (Source) Anatomical Collection Method Collection Time Re ceived Time Location / / Volume Laterality 10/14/2015 8:15 AM CDT Narrative PN ECHO - 10/14/2015 10:45 AM CDT ECHOCARDIOGRAM. Date: 10/14/2015 Start: 08:15 AM Facilit y: Sumanth CONCLUSIONS Left ventricular ejection fraction is vi sually estimated at 65%. Global and regional left ventricular fun ction is normal. FINDINGS MITRAL VALVE Trace (physiologic) mitral regurgitation . AORTIC VALVE Normal aortic valve structure and functi on. TRICUSPID VALVE Trace (physiologic) tricuspid regurgitat ion. The peak velocity of the tricuspid regur gitant jet is 2.7 m/sec, corresponding to a right ventricular/rig ht atrial pressure difference of 29 mmHg. PULMONIC VALVE Normal pulmonic valve structure and func tion. LEFT ATRIUM Mild left atrial enlargement is present. Left atrial volume index is 35 mL/m^2. ( Mildly abnormal 35-41mL/m^2). LEFT VENTRICLE Mild left ventricular dilation is presen t--may be normal for patient's body surface area. Normal left ventricular wall thickness. Left ventricular Doppler filling pattern consistent with pseudonormal filling (moderate left ventricular diast olic dysfunction). Global and regional left ventricular fun ction is normal. Left ventricular ejection fraction is vi sually estimated at 65%. RIGHT ATRIUM Normal right atrium. RIGHT VENTRICLE Normal right ventricle size and normal g lobal function. PERICARDIAL EFFUSION There is no pericardial effusion. MISCELLANEOUS The visualized segments of the thoracic aorta are normal in diameter. The inferior vena cava is normal suggest ing normal RA pressure. M-MODE/2D MEASUREMENTS & CALCULATIONS LV Diastolic Dimension: 5.56 cm LV PW Diastolic: 0.96 cm Septum Diastolic: 1.14 cm ? LA Dimension: 4.4 cm ? Aortic Annulus: 2.2 cm ? LA Area: 23.9 cm^2 LV Systolic Dimension: 3.38 cm ?LA/Aorta: 2 LV Volume Diastolic: 172 ml ? Ascending Aorta: 3.6 cm LV Volume Systolic: 38.6 ml ? LA volume index: 34.6 LV EDV/LV EDV Index: 172 ml/75 m^2 ?ml/m^2 LV ESV/LV ESV Index: 38.6 ml/17 m^2EF Estimated: 65 % DOPPLER MEASUREMENTS & CALCULATIONS MV Peak E-Wave: 1 m/s MV Peak A-Wave: 0.7 m/s MV E/A Ratio: 1.42 MV Peak Gradient: 4.08 ?? LVOT Peak Nadeem ocity: 1.3 m/sLVOT Mean mmHg ? [facility]: 0.9 m/s ?L VOT Peak Gradient: 7 mmHg MV Deceleration Time: ?LVOT Mean Gr adient: 4 mmHg 158 msec E' Velocity: 0.08 m/s ?TR Velocity: 2.7 m/s A' Velocity: 0.08 m/s ?TR Gradient: 29.4 mmHg LVOT VTI: 26.7 cm PROCEDURE Doppler Quality: Adequate quality pulse, continuous wave, and color Doppler was performed and interpreted. 2-D Quality: Adequate quality 2-dimensio nal echo was performed and interpreted. Indications: Sleep Apnea. Contrast Medium: Not Applicable. Height: 68 inches Weight: 259 pounds BSA : 2.28 m^2 BMI: 39.38 kg/m^2 Rhythm: Sinus HR: 63 bpm BP: 138/82 mmHg Gender: ? Male *Patient educated on test, all questions answered by: PG . SIGNATURE DEMOGRAPHICS Patient Name ?? KRYSTAL NICOLETTE A ?Room Number ?OUTPT Patient Number [id number] ? Andrae e of Study ?10/14/2015 Accession ?[id number] ? Interpreting ? Inna Tena MD Number ?Physician Date of ??1950 ? Ord ering Physician JELLY Tapia Primary ?TIO Amaya [facility] ?PG, RDCS Physician ? Chasidy Duggan PA-C PN ECHO ORDERABLES Performing Organization Address City/State/ZIP Code Phon e Number PN ECHO documented in this encounter Visit Diagnoses Diagnosis Complex sleep apnea syndrome Unspecified sleep apnea documented in this encounter Care Teams Career Resource Specialist Relationship Specialty Start Date End Date Tio Coats MD PCP - General 08/07/12 [address] [place] [address] [id number] documented as of this encounter
--- OUTSIDE RECORDS SUMMARY | 2022-01-20 08:14 | XMS_ITS | Encounter Summary ---
:1950 Author Organization [employer] Address [address], [place] [address] Care Team Providers Name Role Phone Po Coats MD Primary Care Provider Reason for Visit Reason Comments INJURY, FINGERS Encounter Details Date Type Department Care Team Description 11/17/2015 Hospital Encounter [facility] Thomas Delacruz i, Skin breakdown Care [address] [address] [address] [phone] [place], [place] [phone] (Wo rk) Social History Tobacco Use Types Packs/Day Years Used Date Smoking Tobacco: Never Assessed Sex Assigned at Date Recorded Not on file documented as of this encounter Last Filed Vital Signs Vital Sign Reading Time Taken Comments Blood Pressure 159/74 11/17/2015 8:08 AM CDT Pulse 52 11/17/2015 8:08 AM CDT Temperature 36.6 ??C (97.9 ??F) 11/17/2015 8:08 AM CDT Respiratory Rate 18 11/17/2015 8:08 AM CDT Oxygen Saturation - - [...] ADULT OR) mouth daily (every 24 hours). atorvastatin (LIPITOR) 20 Take 1 tablet by 90 tablet 3 04/1605/21/2016 MG tabletIndications: mouth daily (every Hyperlipidemia (HRC) 24 hours). mirabegron (MYRBETRIQ) 25 Take 1 tablet by 90 tablet 0 05/08/201501/11/2016 MG 24 hour release tablet mouth daily (every 24 hours). oxybutynin (DITROPANXL) 10 Take 1 tablet by 90 tablet 0 08/201501/11/2016 MG 24 hour release tablet mouth daily (every 24 hours). documented as of this encounter ED Notes Homero Delacruz MD - 11/17/2015 1:57 PM CDT ED Provider Notes signed by Homero Delacruz MD at 11/18/15758 Author: Homero Delacruz MD Service: (none) Author Type: Physician Filed: 11/18/15 075 Note Time: 11/18/15446 Status: Signed Dean Of Education: Homero Delacruz MD (Physician) NAME: NICOLETTE RICE MR#: [id number] CSN: [id number] AUTHENTICATING CLINICIAN: Homero Delacruz MD CONFIRM #: [id number] LOC: 520 URGENT CARE PROGRESS NOTE DATE OF VISIT: 11/17/2015 : 1950 This is a 65-year-old male who, 2 days ago, nicked the PIP knuckle of the left index finger with a perlite grinder at home. He did not make much of it but today, he noticed some swelling and he is concerned about infection. He is up to date on his tetanus. He is right-handed. PAST MEDICAL HISTORY: Reviewed by me in [facility]. ALLERGIES: Reviewed by me in [facility]. MEDICATION: Reviewed by me in [facility]. PHYSICAL EXAMINATION: VITALS: Reviewed by me in [facility]. GENERAL: He looks well. LEFT HAND: There is mild fullness around the PIP joint which he can fully exercise. On the dorsum ofit, there is about 5 mm fairly superficial ketty of the skin with some tenderness and minimal erythema. ASSESSMENT: Traumatic focal skin breakdown of the left index finger, concerned about infection. PLAN: We talked about the likelihood or lack thereof of infection but I ended up giving a prescription for Keflex as per [facility]. Daily wound care discussed. He will watch for any suggestion of focal signs of infection as were discussed, in which case he will be back. OS:MEDQ C: CONFIRM #: [id number] documented in this encounter Miscellaneous Notes Medication History - Oscar Colón MD - 11/17/2015 8:21 AM CDT INPATIENT MEDS Encounter Date: 11/17/15 cephALEXin (KEFLEX) 500 mg capsule Start Date:11/17/15, End Date:11/22/15, Frequency:4 TIMES DAILY *No Administrations Recorded ED AVS Snapshot - Oscar Colón MD - 11/17/2015 8:17 AM CDT Images from the original note were not included. [facility] [address] [place] [address] Dept: [phone] [email or web address] Nicolette Rice 11/17/2015 8:11 AM Description: Male : 1950 Department: [facility] Thank you for choosing [facility] for your health care visit with Homero Delacruz MD. We are happy to care for you and provide this summary of your visit. Your primary grounds caretaker iscurrently listed as Po Coats MD. HERE IS WHAT YOU NEED TO KNOW To learn how you can take steps to stay as healthy as you can be visit [email or web address] HERE IS WHAT YOU NEED TO DO Call your clinic if: You develop new symptoms Your symptoms worsen unexpectedly You are not improving as expected You have questions about your visit or medications Future Appointments Provider Department Dept Phone 12/01/2015 8:30 AM Stephanie Coulter MD [facility] [phone] HERE IS INFORMATION FROM TODAY'S VISIT Reason for Visit Finger Injury Reason for Visit History Health issues considered by your clinician today Skin breakdown If you had any tests, you will be notified of your abnormal results by your clinic. Medications administered today None MEDICATIONS As of today's visit, these are your current medications DOSAGE aspirin EC 81 mg EC tablet Take 1 tablet by mouth daily (every 24 hours). atorvastatin (LIPITOR) 20 mg tablet Take 1 tablet by mouth daily (every 24 hours). Magnesium 250 mg Tab Take 250 mg by mouth daily (every 24 hours). mirabegron (MYRBETRIQ) 25 mg tablet Take 1 tablet by mouth daily (every 24 hours). multivitamin (THERAGRAN) tablet Take 1 tablet by mouth daily (every 24 hours). oxybutynin (DITROPAN-XL) 10 mg 24 hr tablet Take 1 tablet by mouth daily (every 24 hours). Vital signs from your visit Your Vital Signs Were BP Pulse Temp(Src) Resp Smoking Status 159/74 mmHg 52 36.6 ??C (97.9 ??F) (Oral) 18 Never Smoker Allergies as of 11/17/2015 No Known Allergies Immunization History Reviewed on 10/24/2015 FLUARIX INFLUENZA QIV (36+ MOS) 12/28/2014, 12/25/2013 FLUZONE INFLUENZA QIV (36+MOS) 01/26/2013 INFLUENZA TIV 0.5 ML (36+ MOS) 12/21/2009, 01/12/2009, 02/27/2006 Influenza TIV (36+ mos) 12/12/2011, 12/08/2010 PCV13 05/04/2015 PNEUMOVAX 12/12/2011 Pneumococcal vaccine (pneumovax) 02/27/2006 TDAP (BOOSTRIX) 12/25/2013 Td Adult (>7 years) 03/09/2003 Zoster 09/17/2011 About You Date Of Sex Race Ethnicity Preferred Language 1950 Male White Non- Greenlandic This document contains confidential information about your health and care. It is provided directlyto you for your personal, private use only. documented in this encounter Plan of Treatment Not on filedocumented as of this encounter Visit Diagnoses Diagnosis Skin breakdown Other specified hypertrophic and atrophi c condition of skin Triage Assessment Note - Maicol Jones RN - 11/17/2015 8:08 AM CDT injured left index finger a couple of days ago in a perlite grinder now red and swollen ONOLOGY TECHNICIAN documented in this encounter Care Teams Credit Checker Relationship Specialty Start Date End Date Po Coats MD PCP - General 08/07/12 [address] [address] [id number] documented as of this encounter
--- OUTSIDE RECORDS SUMMARY | 2022-01-20 08:14 | XMS_ITS | Encounter Summary ---
:1950 Author Organization [facility] Address [address], [place] [address] Care Team Providers Name Role Phone Po Coats MD Primary Care Provider Reason for Visit Reason Comments Follow-up Encounter Details Date Type Department Care Team Description 09/01/2015 Office Visit [facility] Stephanie Coulter MD Nocturia [id number] [place] [address] [phone] (Wo rk) Social History Tobacco Use Types Packs/Day Years Used Date Smoking Tobacco: Never Assessed Sex Assigned at Date Recorded Not on file documented as of this encounter Patient Instructions Patient InstructionsStephanie Coulter MD - 09/01/2015 9:29 AM CDT Stop the myrbetriq and oxybutynin 4 days prior to the urodynamics. documented in this encounter Progress Notes Stephanie Coulter MD - 09/01/2015 9:37 AM CDT Progress Notes signed by Stephanie Coulter MD at 09/04/15 5048 Author: Stephanie Coulter MD Service: (none) Author Type: Physician Filed: 09/04/15 1620 Note Time: 09/01/151629 Status: Signed Medical Educator: Stephanie Coulter MD (Physician) NAME: NICOLETTE RICE MR#: [id number] CSN: [id number] AUTHENTICATING CLINICIAN: Stephanie Coulter MD CONFIRM #: [id number] LOC: 517 CLINIC PROGRESS NOTE DATE OF VISIT: 09/01/2015 : 1950 CLINICAL DATA: Nicolette is a very pleasant 65-year-old man with a history of benign prostatic hyperplasia and urinary tract infections. The patient underwent a laser vaporization of the prostate in September 2012. Postoperatively, the patient did well with his stream, but developed de michael urgency and frequency. Initially, he was doing well on oxybutynin, but continued to have nocturia; sometimes he was going every 30 to 45minutes, but in small amounts. PVRs have always been low. At the patient's previous visits, we tried Myrbetriq and oxybutynin together. The patient really hadsignificant improvement on the combination of the 2 drugs. He is going 1 to 2 times a night. The patient comes back today. He has continued to be happy with the symptom control with the oxybutynin and the Myrbetriq; however, he is now a 65 years old and on Medicare, and his cost of the Myrbetriq has gone to 400 dollars every 90 days which is not something that the patient can afford. We had a good discussion about options going forward. I think he would be a good candidate for Botox, as I think this would be the least impact on his life and would be the most cost effective for him.I explained how Botox works and that we would have to go to the operating room to place the Botox. We also discussed the risk of urinary retention and the need for urodynamics prior to the Botox. The patient thought that this would be something he would be willing to do. ASSESSMENT: De michael urgency, frequency and nocturia after laser vaporization of the prostate for benign prostatic hyperplasia. PLAN: 1. Urodynamics. 2. Stop oxybutynin and Myrbetriq 4 days prior to the urodynamics. 3. Voiding diary to bring to the urodynamics. 4. Follow up with me after the urodynamics. Total visit time today was 25 minutes, 15 minutes was counseling. JR:TENZIN C: CONFIRM #: [id number] documented in this encounter Plan of Treatment Not on filedocumented as of this encounter Visit Diagnoses Diagnosis Nocturia documented in this encounter Care Teams Scow Derrick Operator Relationship Specialty Start Date End Date Po Coats MD PCP - General 08/07/[address] [place] [address] documented as of this encounter
--- OUTSIDE RECORDS SUMMARY | 2022-01-20 08:14 | XMS_ITS | Encounter Summary ---
:1950 Author Organization [employer] Address [address] [address] Care Team Providers Name Role Phone Po Coats MD Primary Care Provider Encounter Details Date Type Department Care Team Description 10/01/2014 Imaging [facility] Right hand pain [address] [place] [address] Social History Tobacco Use Types Packs/Day Years Used Date Smoking Tobacco: Never Assessed Sex Assigned at Date Recorded Not on file documented as of this encounter Plan of Treatment Not on filedocumented as of this encounter Procedures Procedure Name Priority Date/Time Associated Diagnosis Comme nts XR HAND RT 3+ VIEWS STAT 10/01/2014 1:47 PM Right hand pain Results for this CDT procedure are i n the results section. documented in this encounter Results XR Hand Rt 3+ Views (10/01/2014 1:47 PM CDT) Anatomical Region Laterality Modality Upper Extremity, Hand Other Specimen (Source) Anatomical Location Collection Method / Collectio n Time Received Time / Laterality Volume Narrative 10/01/2014 1:50 PM CDT COMPARISON: ??None. FINDINGS: ??There is mild degenerative n arrowing at the right first CMC articulation. Slight narrowing between the navicular and multangular bones is also suspected. Procedure Note Florentino Jose MD - 10/02/2015Formatti ng of this note might be different from the original. COMPARISON: None. FINDINGS: There is mild degenerative zee rowing at the right first CMC articulation. Slight narrowing between the navicular and multangular bones is also suspected. Mirian Alvarado MD RAD GD documented in this encounter Visit Diagnoses Diagnosis Right hand pain Pain in limb documented in this encounter Care Teams Dock Supervisor Relationship Specialty Start Date End Date Po Coats MD PCP - General 08/07/12 [address] [address] [address] documented as of this encounter
--- OUTSIDE RECORDS SUMMARY | 2022-01-20 08:14 | XMS_ITS | Encounter Summary ---
:1950 Author Organization [employer] Address [address] [address] Care Team Providers Name Role Phone Tio Gonzalez MD Primary Care Provider Reason for Visit Reason Comments Refill Encounter Details Date Type Department Care Team Description 11/25/2014 Refill [facility] Tio Gonzalez MD Refill [address] [place] [address] [place] [address] [phone] (Wo rk) Social History Tobacco Use Types Packs/Day Years Used Date Smoking Tobacco: Never Assessed Sex Assigned at Date Recorded Not on file documented as of this encounter Nursing Notes User, Refillwizaelizabeth - 11/25/2014 9:09 AM CDT atorvastatin (LIPITOR) 20 mg tablet - MEDICATION STARTED: 01/08/2014 - LAST REFILLED ON: 01/08/2014, QTY: 90, Refills: 3, Sig: take 1 tablet by mouth daily (every 24 hours). (unchanged) - REFILL: 9 months - RATIONALE: This refill should last until the patient is due for an office visit. - LAST QUALIFYING VISIT WITH TIO GONZALEZ: 07/23/2014 (A more recent visit in internal medicinewas found) - NEXT SCHEDULED VISIT IN INTERNAL MEDICINE: 11/29/2014 Powered by [employer], Reference: [id number], 11/25/2014 8:29:07 AM CDT, Pool: KENISHA KEARNEY REFILL ([id number]) Jermain Buenrostro, RN - 11/25/2014 9:09 AM CDT Renewed medication per medication refill protocol. Requested Prescriptions Signed Prescriptions Disp Refills ??? atorvastatin (LIPITOR) 20 mg tablet 90 tablet 2 Sig: Take 1 tablet by mouth daily (every 24 hours). Authorizing Provider: TIO GONZALEZ Ordering User: JERMAIN BUENROSTRO Lesly Noonan - 11/25/2014 8:28 AM CDT From: Raul Dickson To: Tio Gonzalez MD Sent: 11/25/2014 8:04 AM CDT Subject: Medication Renewal Request Original authorizing provider: MD Raul Ibrahim would like a refill of the following medications: atorvastatin (LIPITOR) 20 mg tablet [Tio Gonzalez MD] Preferred pharmacy: [address] Comment: Medication renewals requested in this message routed to other providers: oxybutynin (DITROPAN-XL) 10 mg 24 hr tablet [Stephanie Coulter MD] documented in this encounter Miscellaneous Notes Refill (Converted) - Jethro Miles Provider - 11/25/2014 8:04 AM CDT Medication Renewal Request From User: Original authorizing provider: MD Raul Ibrahim Lori Randolph would like a refill of the following medications: atorvastatin (LIPITOR) 20 mg tablet [Tio Gonzalez MD] [facility] [address] [address] Comment: Medication renewals requested in this message routed to other providers: oxybutynin (DITROPAN-XL) 10 mg 24 hr tablet [Stephanie Coulter MD] SUPERVISOR documented in this encounter Plan of Treatment Not on filedocumented as of this encounter Visit Diagnoses Diagnosis Hyperlipidemia (HRC) Other and unspecified hyperlipidemia documented in this encounter Care Teams Early Childhood Education Coordinator Relationship Specialty Start Date End Date Tio Gonzalez MD PCP - General 08/07/[address] [place] [address] documented as of this encounter
--- OUTSIDE RECORDS SUMMARY | 2022-01-20 08:14 | XMS_ITS | Encounter Summary ---
:1950 Author Organization [employer] Address [address] [address] Care Team Providers Name Role Phone Tio Gonzalez MD Primary Care Provider Reason for Visit Reason Comments Refill Encounter Details Date Type Department Care Team Description 02/17/2015 Refill [facility] Tio Gonzalez MD Refill [address] [facility] [address] [place] [address] [place] [address] [phone] (Wo rk) Social History Tobacco Use Types Packs/Day Years Used Date Smoking Tobacco: Never Assessed Sex Assigned at Date Recorded Not on file documented as of this encounter Nursing Notes Gail Nunez CMA - 02/18/2015 8:24 AM CST Requested prescription was last renewed on 11/25/14 and sent to [facility] pharmacy with 2 refills. Pt notified via [employer]. Requested Prescriptions Refused Prescriptions Disp Refills ??? atorvastatin (LIPITOR) 20 mg tablet 90 tablet 3 Sig: Take 1 tablet by mouth daily (every 24 hours). Refused By: GAIL NUNEZ V Reason for Refusal: REQUEST ALREADY RESPONDED TO BY OTHER MEANS (E.G. PHONE OR FAX) NAUTICAL DRAFTER Brenda Arciniega - 02/18/2015 8:24 AM CST atorvastatin (LIPITOR) 20 mg tablet - MEDICATION STARTED: 01/08/2014 - LAST REFILLED ON: 11/25/2014, QTY: 90, Refills: 2, Sig: take 1 tablet by mouth daily (every 24 hours). (unchanged) - WARNING: The patient should have outstanding refills for this medication until 05/24/2015. - REFILL: 12 months (if warnings resolved) - RATIONALE: This refill should last until the patient is due for an office visit. - LAST QUALIFYING VISIT WITH TIO GONZALEZ - NEXT SCHEDULED VISIT: None Powered by [employer], Reference: [id number], 02/18/2015 7:52:17 AM AERONAUTICAL DRAFTER, Pool: KENISHA DAIGLEED REFILL ([id number]) Gail Nunez V [facility] - 02/18/2015 7:51 AM AERONAUTICAL DRAFTER From: Raul Dickson To: Tio Gonzalez MD Sent: 02/17/2015 5:52 PM AERONAUTICAL DRAFTER Subject: Medication Renewal Request Original authorizing provider: MD Raul Ibrahim would like a refill of the following medications: atorvastatin (LIPITOR) 20 mg tablet [Tio Gonzalez MD] Preferred [facility] [address] [facility] Comment: Medication renewals requested in this message routed to other providers: oxybutynin (DITROPAN-XL) 10 mg 24 hr tablet [Stephanie Coulter MD] documented in this encounter Miscellaneous Notes Patient Email (Converted) - Jethro Miles Provider - 02/18/2015 8:24 AM AERONAUTICAL DRAFTER Reason for refusal From User: GAIL NUNEZ V The denial you have just received is because the prescription that was requested has already been transmitted to a pharmacy. The prescription(s) were sent to [place], [place] (# [phone]) on 11/25/14 with 2 refills. Please contact pharmacy for refill. If you need to switch pharmacies, please contact your preferred pharmacy to transfer your prescription(s). Thank you. NAUTICAL DRAFTER Refill (Converted) - Jd Jethro Provider - 02/17/2015 5:52 PM AERONAUTICAL DRAFTER Medication Renewal Request From User: Original authorizing provider: Tio Gonzalez MD Raul Dickson would like a refill of the following medications: atorvastatin (LIPITOR) 20 mg tablet [Tio Gonzalez MD] Preferred pharmacy: [place], [place] - [address] [address] Comment: Medication renewals requested in this message routed to other providers: oxybutynin (DITROPAN-XL) 10 mg 24 hr tablet [Stephanie Coulter MD] NAUTICAL DRAFTER documented in this encounter Plan of Treatment Not on filedocumented as of this encounter Visit Diagnoses Diagnosis Hyperlipidemia (HRC) Other and unspecified hyperlipidemia documented in this encounter Care Teams Salon Designer Relationship Specialty Start Date End Date Tio Gonzalez MD PCP - General 08/07/[address] [place] [address] documented as of this encounter
--- OUTSIDE RECORDS SUMMARY | 2022-01-20 08:14 | XMS_ITS | Encounter Summary ---
:1950 Author Organization [facility] Address [address], [place] [address] Care Team Providers Name Role Phone Po Coats MD Primary Care Provider Reason for Visit Reason Comments Follow-up Encounter Details Date Type Department Care Team Description 09/29/2015 Office Visit [facility] Stephanie Coulter, Lower urinary tract [address] symptoms (LUTS) [place] [address] [address] [facility] (Primary Dx) [phone] [place] [address] (Wo rk) Social History Tobacco Use Types Packs/Day Years Used Date Smoking Tobacco: Never Assessed Sex Assigned at Date Recorded Not on file documented as of this encounter Progress Notes Stephanie Coulter MD - 09/29/2015 3:14 PM CDT Progress Notes signed by Stephanie Coulter MD at 10/03/15 1448 Author: Stephanie Coulter MD Service: (none) Author Type: Physician Filed: 10/03/15 1448 Note Time: 09/30/1540 Status: Signed Tile Burner: Stephanie Coulter MD (Physician) NAME: NICOLETTE RICE MR#: [id number] CSN: [id number] AUTHENTICATING CLINICIAN: Stephanie Coulter MD CONFIRM #: [id number] LOC: 517 CLINIC PROGRESS NOTE DATE OF VISIT: 09/29/2015 : 1950 CLINICAL DATA: Nicolette is a very pleasant 65-year-old man with a history of benign prostatic hyperplasia and urinary tract infections. He underwent a laser vaporization of the prostate in September 2012. Postoperatively, thepatient did well with his stream; but developed a de michael urgency and frequency. He initially did well on oxybutynin, but continued to have nocturia where was going sometimes every 30-45 minutes in small amounts. His PVRs have always been low. At his last visits, we tried oxybutynin and Myrbetriq together, which he had a significant improvement on the combo. Unfortunately, now that he is on Medicare,the Myrbetriq has gone up to around 400 dollars for every 90 days, which is not something he can affo rd. Therefore, I had the patient undergo urodynamics with the hope of performing botox. The urodynamics were interesting. It was felt that he may be a little bit obstructed, and it does do show a small bladder capacity, and some mild detrusor instability. The patient also did a voiding diary, which Hailee Redding PA-C who had read the urodynamics did not have at the time of the procedure. The voiding diary is telling typically the patient goes between 1 and 2 ounces occasionally. He will urinate 4 ounces, and in the middle the night he will get up to 11 ounces. He does drink some significant bladderirritants with ice tea, coffee, and soda. ASSESSMENT: Urgency and frequency after laser vaporization of the prostate for benign prostatic hyperplasia. PLAN: 1. I would like the patient to decrease his intake of bladder irritants, and really mainly focus on drinking water to see if that improves his symptoms. 2. If is does not, I think the next step would be Botox injection to the bladder. 3. Given the fact that he looks a little bit obstructed on the urodynamics, I do want to do cystoscopy prior to the Botox to ensure that he does not need a repeat procedure on his prostate. The patient was in a hurry today, and did not have time and did not want to undergo a cystoscopy today. He will make a followup appointment to have this done at a later date; and then we can further discuss things. Total visit time today: 15 minutes, 10 minutes was counseling. JR:TENZIN C: CONFIRM #: [id number] documented in this encounter Plan of Treatment Not on filedocumented as of this encounter Visit Diagnoses Diagnosis Lower urinary tract symptoms (LUTS) - Pr imary Other symptoms involving urinary system documented in this encounter Care Teams Enrollment Consultant Relationship Specialty Start Date End Date Po Coats MD PCP - General 08/07/12 [address] [place] [address] documented as of this encounter
--- OUTSIDE RECORDS SUMMARY | 2022-01-20 08:14 | XMS_ITS | Encounter Summary ---
:1950 Author [facility] Address [address], [place] [address] Care Team Providers Name Role Phone Po Coats MD Primary Care Provider Encounter Details Date Type Department Care Team Description 12/20/2015 Office Visit [facility] Ghulam Holloway, [address] [facility] C-PED [place], [place] [address] Social History Tobacco Use Types [...] encounter Progress Notes Ghulam Holloway, C-PED - 12/20/2015 9:53 AM CDT Patient Name: Raul Dickson : 1950 Date of Visit: 12/20/2015 Orthotics - L.E. - FO - Evaluation Diagnosis: No diagnosis found.Plantar Fasciitis Findings:Pt. Needs replacement fo's Longitudinal Arch: Normal ROM: Good Gait: Pronated [place]: n/a Foot Deformities: n/a Location of Deformities: Product(s) Recommendation: Type of Foot Orthotic: 3/4 length Options: n/a Cut Outs: No Heel Lifts: N/A Affected Limbs: bilateral Patient was educated on proper footwear: n/a Plan of Care: 1-2 weeks ILSA Davalos documented in this encounter Plan of Treatment Not on filedocumented as of this encounter Visit Diagnoses Not on filedocumented in this encounter Care Teams Cyanide Pot Tender Relationship Specialty Start Date End Date Po Coats MD PCP - General 08/07/12 [address] [place] [address] documented as of this encounter
--- OUTSIDE RECORDS SUMMARY | 2022-01-20 08:14 | XMS_ITS | Encounter Summary ---
:1950 Author Organization [facility] Address [address], [place] [address] Care Team Providers Name Role Phone Po Coats MD Primary Care Provider Reason for Visit Reason Comments HAND PAIN Encounter Details Date Type Department Care Team Description 11/29/2014 Office Visit [place] [facility] Po Coats Pa in of right hand Medicine (Primary Dx) [address] [facility] [address] [place] [address] [place], [place] [phone] [address] (Wo rk) Social History Tobacco Use Types Packs/Day Years Used Date Smoking Tobacco: Never Assessed Sex Assigned at Date Recorded Not on file documented as of this encounter Last Filed Vital Signs Vital Sign Reading Time Taken Comments Blood Pressure 136/80 11/29/2014 1:16 PM CDT Pulse 70 11/29/2014 1:16 PM CDT Temperature - - Respiratory Rate - - Oxygen Saturation - - Inhaled Oxygen Concentration - - Weight 119.7 kg (264 lb) 11/29/2014 1:16 PM CDT Height - - Body Mass Index 40.14 05/26/2014 10:44 AM VENEER DRIER documented in this encounter Progress Notes Po Coats MD - 11/29/2014 1:59 PM CDT Progress Notes signed by Po Coats MD at 12/01/14 9069 Author: Po Coats MD Service: (none) Author Type: Physician Filed: 12/01/14 1708 Note Time: 11/29/14 5796 Status: Signed Assistant Therapy Aide: Po Coats MD (Physician) NAME: NICOLETTE DICKSON MR#: [id number] CSN: [id number] AUTHENTICATING CLINICIAN: Po Coats MD CONFIRM #: [id number] LOC: 506 CLINIC PROGRESS NOTE DATE OF VISIT: 11/29/2014 : 1950 SUBJECTIVE: Mr. Dickson is a 64-year-old male who presents to clinic with concerns of right hand pain. Patient was already seen earlier this year on October 01 for a similar concern. He had a thorough evaluation at that time with exact diagnosis being unclear. Blood work testing for gout, Lyme disease, lupus, rheumatoid arthritis, etc. was all negative. X-ray showed some minimal arthritis. He was treated for cellulitis and a gout attack. Patient states the antibiotics never seem to do anything and he was not really concerned that it was infected. However, the indomethacin seemed to work really well to decrease the swelling and the pain. Today in clinic, patient locates the pain primarily in the distribution between the right thumb and the 2nd digit MCP. Patient states it is sometimes tender in that area to rub on it. He thinks there might be some very subtle swelling, but no redness. The patient states it hurts more with usage, such as clicking on the mouse. He has a slight discomfort in his left hand, but nothing compared to the right. Patient is finding it increasingly difficult to do activities of daily living given the pain in his right hand. He has otherwise never noticed any swelling or redness in the joints themselves. PAST MEDICAL HISTORY: Reviewed and updated in EMR. MEDICATIONS: Reviewed and updated in EMR. ALLERGIES: Reviewed and updated in EMR. SOCIAL HISTORY: Patient is a nonsmoker. REVIEW OF SYSTEMS: Patient feels fine otherwise and denies any headaches, chest pain, shortness of breath, abdominal pain, nausea, vomiting, diarrhea, rashes, fevers. EXAMINATION: VITAL SIGNS: Please see EMR. GENERAL: He is alert, oriented, and in no apparent distress. CARDIOVASCULAR: Regular rate and rhythm without murmurs, rubs, gallops. LUNGS: Clear. UPPER EXTREMITY: Right bilateral hand examination reveals no obvious visible swelling, redness, deformity or arthritic changes. He has normal strength, sensation, and reflexes. Vascular status is normal. ASSESSMENT/PLAN: 1. Ongoing right thumb and 2nd digit pain, primarily in the snuffbox area of the right hand. Blood work and x-rays were reviewed with the patient and were otherwise unremarkable. Patient states when hetakes Tylenol it does help. I suspect he has got some mild arthritis in there, although his pain seems out of proportion to examination. 2. Consult hand surgery for a more thorough evaluation. MEMO:TENZIN C: CONFIRM #: [id number] documented in this encounter Plan of Treatment Not on filedocumented as of this encounter Visit Diagnoses Diagnosis Pain of right hand - Primary Pain in limb documented in this encounter Care Teams Dispatch Clerk Relationship Specialty Start Date End Date Po Coats MD PCP - General 08/07/12 [address] [place] [address] documented as of this encounter
--- OUTSIDE RECORDS SUMMARY | 2022-01-20 08:14 | XMS_ITS | Encounter Summary ---
:1950 Author Organization [employer] Address [address], [place] [address] Care Team Providers Name Role Phone Po Coats MD Primary Care Provider Reason for Visit Reason Comments Refill Encounter Details Date Type Department Care Team Description 03/22/2015 Refill [facility] Stephanie Coulter MD Refill [address] [facility] [address] [place] [address] [place] [address] (Wo rk) Social History Tobacco Use Types Packs/Day Years Used Date Smoking Tobacco: Never Assessed Sex Assigned at Date Recorded Not on file documented as of this encounter Nursing Notes Dominique Chou RN - 03/22/2015 10:04 AM CAR HOP From: Raul Sandoval Randolph To: Stephanie Coulter MD Sent: 03/22/2015 9:01 AM CAR HOP Subject: Medication Renewal Request Original authorizing provider: Stephanie Coulter MD Raul Sandoval Randolph would like a refill of the following medications: mirabegron (MYRBETRIQ) 25 mg tablet [Stephanie Coulter MD] Preferred pharmacy: [place], [place] - [address] [address] Comment: HOP documented in this encounter Miscellaneous Notes Refill (Converted) - [facility], Generic Provider - 03/22/2015 9:01 AM CAR HOP Medication Renewal Request From User: Original authorizing provider: MD Raul Velasco Lori Randolph would like a refill of the following medications: mirabegron (MYRBETRIQ) 25 mg tablet [Stephanie Coulter MD] Preferred pharmacy: [facility] [place] - [address] [address] Comment: HOP documented in this encounter Plan of Treatment Not on filedocumented as of this encounter Visit Diagnoses Not on filedocumented in this encounter Care Teams Healthcare Applications Analyst Relationship Specialty Start Date End Date Po Coats MD PCP - General 08/07/[address] [place] [address] documented as of this encounter
--- OUTSIDE RECORDS SUMMARY | 2022-01-20 08:14 | XMS_ITS | Encounter Summary ---
:1950 Author Organization [email or web address] Address [address], [place] [address] Care Team Providers Name Role Phone Po Coats MD Primary Care Provider Reason for Visit Reason Comments Cough Pharyngitis Encounter Details Date Type Department Care Team Description 11/07/2014 [facility] [place], Streptococ lionel sore throat (Primary Dx); Encounter Care Isauro Robbins MD Acute pharyngitis, unspecified [place]aryngit is type [address] [address] [place] [address] [phone] Social History Tobacco Use Types Packs/Day Years Used Date Smoking Tobacco: Never Assessed Sex Assigned at Date Recorded Not on file documented as of this encounter Last Filed Vital Signs Vital Sign Reading Time Taken Comments Blood Pressure 140/80 11/07/2014 8:09 AM CDT Pulse 66 11/07/2014 8:09 AM CDT Temperature 36.6 ??C (97.9 ??F) 11/07/2014 8:09 AM CDT Respiratory Rate 16 11/07/2014 8:09 AM CDT Oxygen Saturation 94% 11/07/2014 8:09 AM CDT Inhaled Oxygen Concentration - - [...] OR) mouth daily (every 24 hours). atorvastatin (AKA LIPITOR) Take 1 tablet by 90 tablet 3 11/25/2014 20 MG tabletIndications: mouth daily (every Hyperlipidemia (HRC) 24 hours). mirabegron (AKA MYRBETRIQ) Take 1 tablet by 90 tablet 3 12/17/2014 25 MG 24 hour release mouth daily (every tablet 24 hours). oxybutynin (AKA DITROPAN Take 1 tablet by 30 tablet 11 08/2611/25/2014 XL) 10 MG 24 hour release mouth daily (every tablet 24 hours). documented as of this encounter ED Notes Isuaro Keller Lp - 11/07/2014 8:33 AM CDT .SUBJECTIVE: 64 y.o. male with sore throat, myalgias, swollen glands for 1 days. No history of rheumatic fever. Other symptoms: dry cough. OBJECTIVE: Vitals as noted above. Appears alert, well appearing, and in no distress. Ears: bilateral TM's and external ear canals normal Oropharynx: mucous membranes moist, pharynx normal without lesions Neck: adenopathy noted - Lungs: clear to auscultation, no wheezes, rales or rhonchi, symmetric air entry Rapid Strep test is positive ASSESSMENT: Streptococcal pharyngitis PLAN: Per orders. Gargle, use acetaminophen or other OTC analgesic, and take Rx fully as prescribed.Call if other family members develop similar symptoms. See prn. Isauro Keller MD [facility] documented in this encounter Miscellaneous Notes Medication History - Oscar Colón MD - 11/07/2014 8:33 AM CDT INPATIENT MEDS Encounter Date: 11/07/14 amoxicillin (AMOXIL) 875 mg tablet Start Date:11/07/14, End Date:11/17/14, Frequency:2 TIMES DAILY *No Administrations Recorded ED AVS Snapshot - Oscar Colón MD - 11/07/2014 8:33 AM CDT Images from the original note were not included. [facility] [address] [place] [address] Dept: [phone] [email or web address] Raul Sandoval Randolph 11/07/2014 8:07 AM Hospital Encounter Description: Male : 1950 Department: [place] [facility] Thank you for choosing [facility] for your health care visit with Isauro Keller MD. We are happy to care for you and provide this summary of your visit. Your primary career based intervention coordinator is currently listed as Po Coats MD (General). HERE IS WHAT YOU NEED TO KNOW To learn how you can take steps to stay as healthy as you can be visit [email or web address] Discharge Instructions Strep Throat: After Your Visit Your Care Instructions Strep throat is a bacterial infection that causes sudden, severe sore throat and fever. Strep throat, which is caused by bacteria called streptococcus, is treated with antibiotics. Sometimes a strep test is necessary to tell if the sore throat is caused by strep bacteria. Treatment can help ease symptoms and may prevent future problems. Follow-up care is a gallegos part of your treatment and safety. Be sure to make and go to all appointments, and call your doctor if you are having problems. It???s also a good idea to know your test resultsand keep a list of the medicines you take. How can you care for yourself at home? ?? Take your antibiotics as directed. Do not stop taking them just because you feel better. You needto take the full course of antibiotics. ?? Strep throat can spread to others until 24 hours after you begin taking antibiotics. During this time, you should avoid contact with other people at work or home, especially infants and children. Donot sneeze or cough on others, and wash your hands often. Keep your drinking glass and eating utensils separate from those of others, and wash these items well in hot, soapy water. ?? Gargle with warm salt water at least once each hour to help reduce swelling and make your throat feel better. Use 1 teaspoon of salt mixed in 8 fluid ounces of warm water. ?? Take an oywt-amp-piyylcq pain medication, such as acetaminophen (Tylenol), ibuprofen (Advil, Motrin), or naproxen (Aleve). Read and follow all instructions on the label. ?? Drink plenty of fluids. Fluids may help soothe an irritated throat. Hot fluids, such as tea or soup, may help your throat feel better. ?? Eat soft solids and drink plenty of clear liquids. Flavored ice pops, ice cream, scrambled eggs, sherbet, and gelatin dessert (such as Jell-O) may also soothe the throat. ?? Get lots of rest. ?? Do not smoke, and avoid secondhand smoke. If you need help quitting, talk to your doctor about stop-smoking programs and medicines. These can increase your chances of quitting for good. ?? Use a vaporizer or humidifier to add moisture to the air in your bedroom. Follow the directions for cleaning the machine. When should you call for help? Call your doctor now or seek immediate medical care if: ?? You have a new or higher fever ?? You have a fever with a stiff neck or severe headache. ?? You have new or worse trouble swallowing. ?? Your sore throat gets much worse on one side. ?? Your pain becomes much worse on one side of your throat. Watch closely for changes in your health, and be sure to contact your doctor if: ?? You are not getting better after 2 days (48 hours). ?? You do not get better as expected. Where can you learn more? Go to [email or web address] and enter K625 in the search box. Current as of: February 26, 2014 Content Version: 10.4 ?? 0025-6027 [employer]. HERE IS WHAT YOU NEED TO DO Call your clinic if: You develop new symptoms Your symptoms worsen unexpectedly You are not improving as expected You have questions about your visit or medications Future Appointments Provider Department Dept Phone 11/10/2014 8:00 AM Shelby Johnson APRN, MANAGER RESPIRATORY CARE [place] [facility] [phone] 11/29/2014 1:30 PM Po Coats MD [place] [facility] [facility] [phone] Follow-up Information Follow up with Po Coats MD. Specialty: Internal Medicine Why: If symptoms worsen, As needed Contact information: [address] [place] [address] HERE IS INFORMATION FROM TODAY'S VISIT Reason for Visit Cough Pharyngitis (SORE THROAT) Reason for Visit History Health issues considered by your clinician today Streptococcal sore throat - Primary Acute pharyngitis, unspecified pharyngitis type If you had any tests, you will be notified of your abnormal results by your clinic. We Performed the Following Rapid Strep Group A Waived: Medications administered today None MEDICATIONS As of today's visit, these are your current medications DOSAGE amoxicillin (AMOXIL) 875 mg tablet Take 1 tablet by mouth 2 times daily for 10 days. aspirin EC 81 mg EC tablet (Taking) Take 1 tablet by mouth daily (every 24 hours). atorvastatin (LIPITOR) 20 mg tablet (Taking) Take 1 tablet by mouth daily (every 24 hours). fluticasone (FLONASE) 50 mcg/actuation nasal spray Place 2 sprays into each nostril daily (every 24hours) for 30 days. Dose is for each nostril. Indications: ALLERGIC RHINITIS fluticasone (FLONASE) 50 mcg/actuation nasal spray Place 2 sprays into each nostril daily (every 24hours) for 30 days. Dose is for each nostril. Indications: ALLERGIC RHINITIS Magnesium 250 mg Tab (Taking) Take 250 mg by mouth daily (every 24 hours). mirabegron (MYRBETRIQ) 25 mg tablet (Taking) Take 1 tablet by mouth daily (every 24 hours). multivitamin (THERAGRAN) tablet (Taking) Take 1 tablet by mouth daily (every 24 hours). oxybutynin (DITROPAN-XL) 10 mg 24 hr tablet (Taking) Take 1 tablet by mouth daily (every 24 hours). Vital signs from your visit Your Vital Signs Were BP Pulse Temp(Src) Resp SpO2 Smoking Status 140/80 mmHg 66 36.6 ??C (97.9 ??F) (Oral) 16 94% Never Smoker Allergies as of 11/07/2014 No Known Allergies Immunization History Reviewed on 07/23/2014 FLUARIX INFLUENZA QIV (36+ MOS) 12/25/2013 FLUZONE INFLUENZA QIV (36+MOS) 01/26/2013 INFLUENZA TIV 0.5 ML (36+ MOS) 12/21/2009, 01/12/2009, 02/27/2006 Influenza TIV (36+ mos) 12/12/2011, 12/08/2010 PNEUMOVAX 12/12/2011 Pneumococcal vaccine (pneumovax) 02/27/2006 TDAP (BOOSTRIX) 12/25/2013 Td Adult (>7 years) 03/09/2003 Zoster 09/17/2011 About You Date Of Sex Race Ethnicity Preferred Language 1950 Male White Non- Citizen Of [place] This document contains confidential information about your health and care. It is provided directlyto you for your personal, private use only. documented in this encounter Plan of Treatment Not on filedocumented as of this encounter Procedures Procedure Name Priority Date/Time Associated Diagnosis Comme nts GROUP A STREP STAT 11/07/2014 8:18 AM Acute pharyngitis, Re sults for this ANTIGEN SCREEN CDT unspecified procedure are in pharyngitis type the results section. documented in this encounter Results (ABNORMAL) RAPID STREP GROUP A WAIVED (11/07/2014 8:18 AM CDT) [facility] gist Method Time Signature Strep A Positive (A) Negative [facility] CONVERSION Antigen Strep A Throat: HP CONVERSION Source Specimen Anatomical Collection Method Collection Time Receive d Time (Source) Location / / Volume Laterality 11/07/2014 8:18 AM 5 9:48 CDT AM CDT Narrative [facility] CONVERSION - 11/07/2014 9:48 AM CDT Performed at [facility], [address] [place], [place] [id number] Matthew Hudson MD LAB_1 Performing Organization Address City/State/ZIP Code Phon e Number HP CONVERSION documented in this encounter Visit Diagnoses Diagnosis Streptococcal sore throat - Primary Acute pharyngitis, unspecified pharyngit is type Triage Assessment Note - Connie Colin, RN - 11/07/2014 8:21 AM CDT States sore throat and cough beginning early am. cough productive of yellow sputum. states grandson had strep. documented in this encounter Care Teams Cath Laboratory Technician Relationship Specialty Start Date End Date Po Coats MD PCP - General 08/07/[address] [place] [address] documented as of this encounter
--- OUTSIDE RECORDS SUMMARY | 2022-01-20 08:14 | XMS_ITS | Encounter Summary ---
:1950 Author Organization [facility] Address [address], [place] [address] Care Team Providers Name Role Phone Po Coats MD Primary Care Provider Reason for Visit Reason Comments PRE-OP EXAM Encounter Details Date Type Department Care Team Description 10/24/2015 Pre-Op Visit [facility] Po Coats, Scout eoperative examination (Primary Dx); Medicine MD Complex sleep apnea syndrome; [address] [address] [address] OAB (overactive bladder) [place] [address] [place], [place] [phone] [address] Social History Tobacco Use Types Packs/Day Years Used Date Smoking Tobacco: Never Assessed Sex Assigned at Date Recorded Not on file documented as of this encounter Last Filed Vital Signs Vital Sign Reading Time Taken Comments Blood Pressure 158/77 10/24/2015 1:06 PM CDT Pulse 58 10/24/2015 1:06 PM CDT Temperature - - Respiratory Rate - - Oxygen Saturation - - Inhaled Oxygen Concentration - - Weight 116.6 kg (257 lb) 10/24/2015 1:06 PM CDT Height 175.3 cm (5' 9.02) 10/24/2015 1:06 PM CDT Body Mass Index 37.93 10/24/2015 1:06 PM CDT documented in this encounter Patient Instructions Patient InstructionsPo Coats MD - 10/24/2015 1:18 PM CDT Please notify our clinic if you develop any new concerning symptoms such as fevers, chest pain, or breathing difficulties between now and your surgery. Please hold all aspirin, ibuprofen (Advil, Motrin) and naproxen (Aleve) products for the week prior to your surgery. Please hold all herbal medications for 1 week prior to surgery. Nothing to eat or drink after midnight on the day of your surgery unless instructed differently by your surgeon. documented in this encounter OR Notes H&P - Po Coats MD - 10/24/2015 1:59 PM CDT PREOPERATIVE ASSESSMENT Date of : 1950 Age: 65 y.o. Sex: male Preoperative Evaluation completed by: Po Coats MD Primary care physician: Po Coats MD [phone] CHIEF COMPLAINT Pre-Operative Evaluation ANTICIPATED PROCEDURE Bladder botox injections HISTORY OF PRESENT ILLNESS OAB Risk Factors/Review of Systems: (Please see flowsheets for details) Cardiovascular risks negative except for: Renal risks negative except for: Neuro risks negative except for: GI risks negative except for: Pulmonary risks negative except for: Obstructive sleep apnea: Endocrine/Nutrition risks negative except for: Hematologic Disease risks negative except for: Musculoskeletal/Skin risks negative except for: Mental Health risks negative except for: Other risk factors negative except for: Complete review of systems is otherwise negative. Patient is able to reach METS >4 without chest pain or shortness of breath. History reviewed. No pertinent past medical history. Past Surgical History Procedure Laterality Date ??? Shoulder surgery ??? Bladder surgery 2013 Family History Problem Relation Age of Onset ??? Cancer Father lung ??? Early Brother ??? Early Brother infant ??? Retinal Detachment Mother ??? Cataracts Mother ??? Glaucoma Mother ??? AAA Mother ??? Diabetes Neg Hx ??? Macular Degen Neg Hx ??? Strabismus Neg Hx ??? Amblyopia Neg Hx ??? Cataracts Paternal Grandfather History Social History ??? Marital Status: Spouse [...] ??? Not on file Social History Narrative Current Outpatient Prescriptions Medication Sig Note Dispense Refill ??? aspirin EC 81 mg EC tablet Take 1 tablet by mouth daily (every 24 hours). 06/11/2014: taking 100 tablet 3 ??? atorvastatin (LIPITOR) 20 mg tablet Take 1 tablet by mouth daily (every 24 hours). 90 tablet 3 ??? Magnesium 250 mg Tab Take 250 mg by mouth daily (every 24 hours). ??? mirabegron (MYRBETRIQ) 25 mg tablet Take 1 tablet by mouth daily (every 24 hours). 90 tablet 0 ??? multivitamin (THERAGRAN) tablet Take 1 tablet by mouth daily (every 24 hours). ??? oxybutynin (DITROPAN-XL) 10 mg 24 hr tablet Take 1 tablet by mouth daily (every 24 hours). 90 tablet 0 No current facility-administered medications for this visit. No Known Allergies PHYSICAL EXAMINATION Pulse: 58 (10/24/15 1306) BP: 158/77 mmHg (10/24/15 1306) Height: 175.3 cm (5' 9.02) (10/24/15 1306) Weight: 116.574 kg (257 lb) (10/24/15 1306) BMI (Calculated): 38.01 (10/24/15 1306) General Appearance: Normal HEENT: Normal Neck: Normal Lungs: Normal Heart: Abdomen: Normal Normal Extremities: Normal Skin: Normal Neurologic: Normal TEST RESULTS AND DATE EKG done: on chart Labs done: on chart ASSESSMENT 1. Preoperative Assessment: This patient has been examined by me today and has been found to be a suitable candidate for surgery: Yes RECOMMENDATIONS AND PLAN Day of surgery testing: none Medication recommendations: Please see patient instructions. Additional screening recommended: no Consult (Cardiology/other): no Additional test results attached: none Beta fermin protocol ordered: no Insulin/Diabetes orders initiated: no Initiate continuous O2 sat monitoring post-op: yes CARLOS ABOVE RECOMMENDATIONS WERE REVIEWED WITH PATIENT: yes Po Coats MD 10/24/2015 documented in this encounter Plan of Treatment Not on filedocumented as of this encounter Procedures Procedure Name Priority Date/Time Associated Diagnosis Comme nts ECG 12 LEAD Routine 10/24/2015 1:29 PM Preoperative Results f or this OUTPATIENT CDT examination procedure are in Complex sleep apnea the resu lts syndrome section. OAB (overactive bladder) documented in this encounter Results ECG 12 Lead Outpatient (10/24/2015 1:29 PM CDT) P athologist Signature Ventricular Rate 58 BPM [facility] Atrial Rate 58 BPM [facility] P-R Interval 156 ms [facility] QRS Duration 82 ms [facility] QT 426 ms [facility] QTc 418 ms [facility] P [place] 56 degrees [facility] R [place] -33 degrees [facility] T [place] -96 degrees [facility] Specimen (Source) Anatomical Collection Method Collection Time Re ceived Time Location / / Volume Laterality 10/24/2015 1:29 PM CDT Narrative [facility] - 07/16/2019 12:22 AM CDT Sinus bradycardia Left axis deviation T wave abnormality, consider lateral isc hemia Abnormal ECG When compared with ECG of 10-OCT-2012 10 :08, No significant change was found Confirmed by DAVID WARREN ([id number]), CARINA Serna () on 10/24/2015 9:58:27 PM Procedure Note Epic, Internal Processing - 07/16/2019Fo rmatting of this note might be different from the original. Sinus bradycardia Left axis deviation T wave abnormality, consider lateral isc hemia Abnormal ECG When compared with ECG of 10-OCT-2012 10 :08, No significant change was found Confirmed by DAVID WARREN ([id number]), CARINA Serna () on 10/24/2015 9:58:27 PM Po Coats MD PN ECG ORDERABLES Performing Organization Address City/State/ZIP Code Phon e Number [facility] [address] [place] [address] documented in this encounter Visit Diagnoses Diagnosis Preoperative examination - Primary Preoperative examination, unspecified Complex sleep apnea syndrome Unspecified sleep apnea OAB (overactive bladder) Hypertonicity of bladder documented in this encounter Care Teams Epic Interface Analyst Relationship Specialty Start Date End Date Po Coats MD PCP - General 08/07/12 [address] [address] documented as of this encounter
--- OUTSIDE RECORDS SUMMARY | 2022-01-20 08:14 | XMS_ITS | Encounter Summary ---
:1950 Author Organization [facility] Address [address], [place] [address] Care Team Providers Name Role Phone Po Coats MD Primary Care Provider Reason for Visit Reason Comments Refill Encounter Details Date Type Department Care Team Description 08/15/2015 Refill [facility] Stephanie Son MD Refill [address] [facility] [address] [place] [address] [place] [address] (Wo rk) Social History Tobacco Use Types Packs/Day Years Used Date Smoking Tobacco: Never Assessed Sex Assigned at Date Recorded Not on file documented as of this encounter Nursing Notes Stephanie Son MD - 08/18/2015 1:11 PM CDT From: Nicolette Rice To: Stephanie Son MD Sent: 08/15/2015 7:23 PM CDT Subject: Medication Renewal Request Original authorizing provider: MD Nicolette Velasco would like a refill of the following medications: oxybutynin (DITROPAN-XL) 10 mg 24 hr tablet [Stepahnie Son MD] mirabegron (MYRBETRIQ) 25 mg tablet [Stephanie Son MD] Preferred pharmacy: [place], [place] - [address] [facility] Comment: Medication renewals requested in this message routed to other providers: atorvastatin (LIPITOR) 20 mg tablet [Po Coats MD] ETER documented in this encounter Miscellaneous Notes Refill (Converted) - Mychart, Generic Provider - 08/18/2015 1:13 PM CDT RE: Medication Renewal Request From User: STEPHANIE SON I renewed for 3 months, then you need to make a follow up appt for further prescriptions. Take careStephanie MD ----- Message ----- From: NICOLETTE RICE Sent: 08/15/2015 7:23 PM CDT To: Stephanie Son MD Subject: Medication Renewal Request Original authorizing provider: MD Nicolette Velasco would like a refill of the following medications: oxybutynin (DITROPAN-XL) 10 mg 24 hr tablet [Stephanie Son MD] mirabegron (MYRBETRIQ) 25 mg tablet [Stephanie Son MD] [facility] [address] [address] Comment: Medication renewals requested in this message routed to other providers: atorvastatin (LIPITOR) 20 mg tablet [Po Coats MD] documented in this encounter Plan of Treatment Not on filedocumented as of this encounter Visit Diagnoses Not on filedocumented in this encounter Care Teams Waiter Waitress Relationship Specialty Start Date End Date Po Coats MD PCP - General 08/07/[address] [place] [address] documented as of this encounter
--- OUTSIDE RECORDS SUMMARY | 2022-01-20 08:14 | XMS_ITS | Encounter Summary ---
:1950 Author Organization [facility] Address [address], [place] [address] Care Team Providers Name Role Phone Po Coats MD Primary Care Provider Reason for Visit Reason Comments Rash Encounter Details Date Type Department Care Team Description 01/12/2015 Hospital Encounter [facility] Petey Aldridge, Rash and nonspecific Care PA-C skin eruption [id number] [address] [address] (Primary Dx) [place] [address] [id number] Social History Tobacco Use Types Packs/Day Years Used Date Smoking Tobacco: Never Assessed Sex Assigned at Date Recorded Not on file documented as of this encounter Last Filed Vital Signs Vital Sign Reading Time Taken Comments Blood Pressure 142/78 01/12/2015 10:10 AM CDT Pulse 63 01/12/2015 10:10 AM CDT Temperature 36.3 ??C (97.3 ??F) 01/12/2015 10:10 AM CDT Respiratory Rate 20 01/12/2015 10:10 AM CDT Oxygen Saturation - - Inhaled [...] ADULT OR) mouth daily (every 24 hours). mirabegron (AKA MYRBETRIQ) Take 1 tablet by 90 tablet 3 07/201403/22/2015 25 MG 24 hour release mouth daily (every tablet 24 hours). oxybutynin (AKA DITROPAN Take 1 tablet by 90 tablet 3 11/2502/18/2015 XL) 10 MG 24 hour release mouth daily (every tablet 24 hours). atorvastatin (AKA LIPITOR) Take 1 tablet by 90 tablet 2 05/04/2015 20 MG tabletIndications: mouth daily (every Hyperlipidemia (HRC) 24 hours). cetirizine (aka zyRTEC) Take 1 tablet by 30 tablet 11 201405/04/2015 tablet mouth daily (every 24 hours). dexamethasone (aka 10 mg today and 10 tablet 0 01/12/2015 0 05/04/2015 DECADRON) tablet saturday documented as of this encounter ED Notes Petey Aldridge PA-C - 01/12/2015 10:49 AM CDT SUBJECTIVE: Chief Complaint: Chief Complaint Patient presents with ??? Rash HPI: Raul Dickson is a 64 y.o. male who presents to urgent care for evaluation of rash. He first noticed the rash last night on his torso. It is pruritic and irritating. Today, he noticed the rash on his legs as well. He has never had anything like this before. He did get a bug bite on his left arm this weekend, which has been very pruritic, but is unsure if the rash is related or not. No one else at home has this rash. No new products, medications, or foods. No recent cold symptoms, fever, or chills. He has no allergies that he is aware of. No problems breathing or swallowing. No history of similar reactions or rashes Social History: History Substance Use Topics ??? Smoking status: Never Smoker ??? Smokeless tobacco: Never Used ??? Alcohol Use: Yes Comment: rare Past Medical History: Patient Active Problem List Diagnosis ??? Pain Low Back ??? Hyperlipidemia ??? Complex sleep apnea syndrome ??? Adenoma of large intestine Adverse Drug Reactions: Review of patient's allergies indicates no known allergies. Medications: Magnesium, aspirin EC, atorvastatin, cetirizine, dexamethasone, mirabegron, multivitamin, and oxybutynin ROS: Complete ROS was negative other than what was cited above. OBJECTIVE: Vital Signs: BP 142/78 mmHg Pulse 63 Temp(Src) 36.3 ??C (97.4 ??F) (Oral) Resp 20. General: Alert, oriented, NAD Skin: Erythematous, scattered maculopapular rash on torso, bilateral legs L>R, and starting on right arm. Head: Normocephalic. PERRL, full EOM. External eye exams normal. Normal pinnae, canals. Nose patent,without deformity. Moist mucous membranes without lesions, erythema, or exudate. Respiratory: Normal respiratory effort. ASSESSMENT: Diagnosis ICD-9-CM ICD-10-CM 1. Rash and nonspecific skin eruption 782.1 R21 PLAN: Medications Prescribed this Visit Disp Refills Start End dexamethasone (DECADRON) 2 mg tablet 10 tablet 0 01/12/2015 10 mg today and saturday cetirizine (ZYRTEC) 10 mg tablet 30 tablet 11 01/12/2015 01/12/2016 Take 1 tablet by mouth daily (every 24 hours). Oral Discharge Instructions -Hydrate -Cool bath/luke warm... decrease frequency of bathing -Aquaphor/unscented lotion -Vaseline -Pat dry with towel after bath -Look for any new soaps, lotions, perfumes, fabric softeners, bubble baths and eliminate them -No perfumed topicals -Watch for secondary infections... -Decadron today and saturday -Zyrtec each am -Benadryl at bed The patient was discharged ambulatory and in stable condition. RTC prn Ashia QUINTANILLA I examined the patient independently, reviewed the note with the student, and discussed all aspects of the visit with the student prior to signing the note. Petey Aldridge PA-C documented in this encounter Miscellaneous Notes Medication History - Oscar Colón MD - 01/12/2015 10:49 AM CDT INPATIENT MEDS Encounter Date: 01/12/15 dexamethasone (DECADRON) 2 mg tablet Start Date:01/12/15, End Date:05/04/15, Frequency:- *No Administrations Recorded cetirizine (ZYRTEC) 10 mg tablet Start Date:01/12/15, End Date:05/04/15, Frequency:DAILY *No Administrations Recorded cetirizine (ZYRTEC) 10 mg tablet Start Date:01/12/15, End Date:01/12/15, Frequency:DAILY *No Administrations Recorded dexamethasone (DECADRON) 2 mg tablet Start Date:01/12/15, End Date:01/12/15, Frequency:- *No Administrations Recorded ED AVS Snapshot - Oscar Colón MD - 01/12/2015 10:49 AM CDT Images from the original note were not included. [facility] [address] [place] [address] Dept: [phone] [email or web address] Raul Dickson 01/12/2015 10:11 AM Hospital Encounter Description: Male : 1950 Department: [facility] Thank you for choosing [facility] for your health care visit with Petey Aldridge PA-C. We are happy to care for you and provide this summary of your visit. Your primary career development manager iscurrently listed as Po Coats MD. HERE IS WHAT YOU NEED TO KNOW To learn how you can take steps to stay as healthy as you can be visit [email or web address] Discharge Instructions hydrate cool bath/luke warm... decrease frequency of bathing aquaphor/unscented lotion vaseline pat dry with towel after bath look for any new soaps, lotions, perfumes, fabric softeners, bubble baths and eliminate them No perfumed topicals watch for secondary infections... decadron today and saturday zyrtec each am benadryl at bed HERE IS WHAT YOU NEED TO DO Call your clinic if: You develop new symptoms Your symptoms worsen unexpectedly You are not improving as expected You have questions about your visit or medications Future Appointments Provider Department Dept Phone 04/01/2015 3:00 PM MD [facility] [phone] Follow-up Information Follow up with [facility] Specialty: Urgent Care Why: If symptoms worsen Contact information: [address] [place] [address] HERE IS INFORMATION FROM TODAY'S VISIT Reason for Visit Rash Reason for Visit History Health issues considered by your clinician today Rash and nonspecific skin eruption - Primary If you had any tests, you will be notified of your abnormal results by your clinic. Medications administered today None MEDICATIONS As of today's visit, these are your current medications DOSAGE aspirin EC 81 mg EC tablet (Taking) Take 1 tablet by mouth daily (every 24 hours). atorvastatin (LIPITOR) 20 mg tablet (Taking) Take 1 tablet by mouth daily (every 24 hours). cetirizine (ZYRTEC) 10 mg tablet Take 1 tablet by mouth daily (every 24 hours). dexamethasone (DECADRON) 2 mg tablet 10 mg today and saturday Magnesium 250 mg Tab (Taking) Take 250 [...] Were BP Pulse Temp(Src) Resp Smoking Status 142/78 mmHg 63 36.3 ??C (97.4 ??F) (Oral) 20 Never Smoker Allergies as of 01/12/2015 No Known Allergies Immunization History Reviewed on 11/29/2014 FLUARIX INFLUENZA QIV (36+ MOS) 12/28/2014, 12/25/2013 FLUZONE INFLUENZA QIV (36+MOS) 01/26/2013 INFLUENZA TIV 0.5 ML (36+ MOS) 12/21/2009, 01/12/2009, 02/27/2006 Influenza TIV (36+ mos) 12/12/2011, 12/08/2010 PNEUMOVAX 12/12/2011 Pneumococcal vaccine (pneumovax) 02/27/2006 TDAP (BOOSTRIX) 12/25/2013 Td Adult (>7 years) 03/09/2003 Zoster 09/17/2011 About You Date Of Sex Race Ethnicity Preferred Language 1950 Male White Non- Luxembourgish This document contains confidential information about your health and care. It is provided directlyto you for your personal, private use only. documented in this encounter Plan of Treatment Not on filedocumented as of this encounter Visit Diagnoses Diagnosis Rash and nonspecific skin eruption - Ibeth addy Rash and other nonspecific skin eruption Triage Assessment Note - Jim Jenkins RN - 01/12/2015 10:09 AM CDT Pt states he was bit by a bug on left forearm on Saturday. Now has a somewhat itchy rash on torso and left leg. documented in this encounter Care Teams Franchise Broker Relationship Specialty Start Date End Date Po Coats MD PCP - General 08/07/12 [address] [address] documented as of this encounter
--- OUTSIDE RECORDS SUMMARY | 2022-01-20 08:14 | XMS_ITS | Encounter Summary ---
:1950 [facility] Address [address], [place] [address] Care Team Providers Name Role Phone Po Coats MD Primary Care Provider Reason for Visit Reason Comments Annual Exam Encounter Details Date Type Department Care Team Description 05/04/2015 Office Visit [facility] Po Coats, An nual physical exam (Primary Dx); Medicine Hyperlipidemia; [address] [address] [address] Need [place] [address] [place], [place] [phone] [address] Social History Tobacco Use Types Packs/Day Years Used Date Smoking Tobacco: Never Assessed Sex Assigned at Date Recorded Not on file documented as of this encounter Last Filed Vital Signs Vital Sign Reading Time Taken Comments Blood Pressure 138/82 05/04/2015 8:32 AM RESEARCH INTERN Pulse 80 05/04/2015 8:32 AM RESEARCH INTERN Temperature - - Respiratory Rate - - Oxygen Saturation - - Inhaled Oxygen Concentration - - Weight 117.5 kg (259 lb) 05/04/2015 8:32 AM RESEARCH INTERN Height 171.5 cm (5' 7.5) 05/04/2015 8:32 AM RESEARCH INTERN Body Mass Index 39.97 05/04/2015 8:32 AM RESEARCH INTERN documented in this encounter Patient Instructions Patient InstructionsSeChris sharpe, AMBREEN - 05/04/2015 8:37 AM CST Body mass index is 39.94 kg/(m^2). Patient Followup Plan: Provided patient with Healthy Weight Matters brochure. ARCH INTERN documented in this encounter Progress Notes Po Coats MD - 05/04/2015 9:06 AM CST SUBJECTIVE: 64 y.o. male presents for a routine preventive physical exam. Past Medical History Reviewed and updated in EMR. Past Surgical History Procedure Laterality Date ??? Shoulder surgery ??? Bladder surgery 2012 Current Outpatient Prescriptions Medication Sig Note Dispense [...] (every 24 hours). 90 tablet 3 ??? multivitamin (THERAGRAN) tablet Take 1 tablet by mouth daily (every 24 hours). ??? oxybutynin (DITROPAN-XL) 10 mg 24 hr tablet Take 1 tablet by mouth daily (every 24 hours). 90 tablet 3 ??? triamcinolone (KENALOG) 0.1 % cream Apply topically 2 times daily. Apply to itchy rash on skin BID until clear, repeat prn. Avoid face, groin, skin folds. 80 g 0 No current facility-administered medications for this [...] History ??? Marital Status: Spouse Name: chris Number of Children: 2 ??? Years of [...] baby aspirin 81mg daily. -Colonoscopy due: . ARCH INTERN documented in this encounter Plan of Treatment Not on filedocumented as of this encounter Visit Diagnoses Diagnosis Annual physical exam - Primary Routine general medical examination at a health care facility Hyperlipidemia (HRC) Other and unspecified hyperlipidemia Need for Streptococcus pneumoniae vaccin ation documented in this encounter Care Teams Hospital Tray Service Worker Relationship Specialty Start Date End Date Po Coats MD PCP - General 08/07/12 [address] [address] documented as of this encounter
--- OUTSIDE RECORDS SUMMARY | 2022-01-20 08:14 | XMS_ITS | Encounter Summary ---
:1950 Author Organization [facility] Address [address], [place] [address] Care Team Providers Name Role Phone Po Coats MD Primary Care Provider Reason for Visit Reason Comments Post-Op Follow Up Call Encounter Details Date Type Department Care Team Description 11/01/2015 Telephone [facility] Stephanie Coulter, Post-Op Follow Up Call [address] [place] [address] [facility] [phone] [place] [address] (Wo rk) Social History Tobacco Use Types Packs/Day Years Used Date Smoking Tobacco: Never Assessed Sex Assigned at Date Recorded Not on file documented as of this encounter Nursing Notes Stephanie Coulter MD - 11/03/2015 10:24 AM CDT Fine Tara Johnston RN - 11/03/2015 10:08 AM CDT You are out of the office on 11/16 and pt unavailable on 11/23. Pt scheduled for post op on 11/30. Stephaine Callahan MD - 11/01/2015 9:41 PM CDT Can we have him come back in 3 weeks? Thanks RT CLERK Tara Begum, RN - 11/01/2015 1:21 PM CDT Post-Surgical Discharge follow-up call completed. Please refer to DOC Flowsheet: SURGDC for details. Pt is doing really well. No questions or concerns. Is urinating just fine. He does not have a post op appointment scheduled. How far out do you want that scheduled? documented in this encounter Plan of Treatment Not on filedocumented as of this encounter Visit Diagnoses Not on filedocumented in this encounter Care Teams Arc Trimmer Relationship Specialty Start Date End Date Po Coats MD PCP - General 08/07/12 [address] [address] documented as of this encounter
--- OUTSIDE RECORDS SUMMARY | 2022-01-20 08:14 | XMS_ITS | Encounter Summary ---
:1950 Author Organization [employer] Address [address], [place] [address] Care Team Providers Name Role Phone Po Coats MD Primary Care Provider Reason for Visit Reason Comments Refill Encounter Details Date Type Department Care Team Description 11/29/2015 Refill [facility] Po Coats MD Refill [id number] [facility] [address] [place] [address] [place] [address] [phone] (Wo rk) Social History Tobacco Use Types Packs/Day Years Used Date Smoking Tobacco: Never Assessed Sex Assigned at Date Recorded Not on file documented as of this encounter Nursing Notes Shaun Pagan RN - 11/29/2015 9:13 AM CDT From: Nicolette Rice To: Po Coats MD Sent: 11/29/2015 6:50 AM CDT Subject: Medication Renewal Request Original authorizing provider: MD Nicolette Ibrahim would like a refill of the following medications: atorvastatin (LIPITOR) 20 mg tablet [Po Coats MD] Preferred pharmacy: [facility] [address] Comment: ENT TEACHING COORDINATOR documented in this encounter Miscellaneous Notes Refill (Converted) - Jd, Jethro Provider - 11/29/2015 9:15 AM CDT RE: Medication Renewal Request From User: SHAUN PAGAN, A prescription good for one year was sent to your pharmacy in April - have you checked with them for this refill yet? If not, please do so and let us know if you have any difficulty getting the atorvastatin refilled. [facility] Nurse Line ----- Message ----- From: NICOLETTE RICE Sent: 11/29/2015 6:50 AM CDT To: Po Coats MD Subject: Medication Renewal Request Original authorizing provider: MD Nicolette Ibrahim would like a refill of the following medications: atorvastatin (LIPITOR) 20 mg tablet [Po Coats MD] [facility] [address] Comment: documented in this encounter Plan of Treatment Not on filedocumented as of this encounter Visit Diagnoses Diagnosis Hyperlipidemia (HRC) Other and unspecified hyperlipidemia documented in this encounter Care Teams Barrel Loader Relationship Specialty Start Date End Date Po Coats MD PCP - General 08/07/[address] [place] [address] documented as of this encounter
--- OUTSIDE RECORDS SUMMARY | 2022-01-20 08:14 | XMS_ITS | Encounter Summary ---
:1950 Author [facility] Address [address], [place] [address] Care Team Providers Name Role Phone Po Coats MD Primary Care Provider Reason for Visit Reason Comments Follow-up Encounter Details Date Type Department Care Team Description 10/06/2015 Office Visit [facility] Stephanie oCulter, Bladder instability [address] [facility] (Primary Dx) [place] [address] [address] [facility] [phone] [place] [address] (Wo rk) Social History Tobacco Use Types Packs/Day Years Used Date Smoking Tobacco: Never Assessed Sex Assigned at Date Recorded Not on file documented as of this encounter Progress Notes Stephanie Coulter MD - 10/06/2015 1:11 PM CDT Progress Notes signed by Stephanie Coulter MD at 10/13/15 140 Author: Stephanie Coulter MD Service: (none) Author Type: Physician Filed: 10/13/15 140 Note Time: 10/06/151404 Status: Signed Community Nutrition Educator: Stephanie Coulter MD (Physician) NAME: NICOLETTE RICE MR#: [id number] CSN: [id number] AUTHENTICATING CLINICIAN: Stephanie Coulter MD CONFIRM #: [id number] LOC: 517 CLINIC PROGRESS NOTE DATE OF VISIT: 10/06/2015 : 1950 CLINICAL DATA: Nicolette is a very pleasant 65-year-old man with a history of benign prostatic hyperplasia and urinary tract infections. He underwent a laser vaporization of the prostate in September 2012. Postoperatively, thepatient did well with his stream, but developed de michael urgency and frequency. Initially, he did well on oxybutynin, but continued to have nocturia, sometimes going every 30 to 45 minutes in small amounts. His PVRs have always been low. We decided to try Myrbetriq and oxybutynin together, as the oxybutynin was not working quite as well, and he had a significant improvement on the combo. Unfortunately, now that he is on Medicare, the Myrbetriq has gone up to around 400 dollars for every 90 days whichis not something the patient could afford. At the patient's last visit, we decided to consider Botox injection to the bladder. I had the patient undergo urodynamics which were interesting. It showed that he was a little bit obstructed, had a small bladder capacity and mild detrusor instability. On his voiding diary, he also was drinking some bladder irritants. We discussed trying to avoid the bladder irritants and having him undergo a cystoscopy to ensure that he did not actually need another transurethral treatment of his prostate. The patient continues to have symptoms he states that his stream is fine, but I did want him to undergo a cystoscopy. PROCEDURE: The 18-Czech cystoscope was placed in the patient's urethra and then into the bladder. On turn-backmaneuver, there is no evidence of any median lobe. Right near the veru, the patient does have some tissue, but it is, for the most part, quite open. There is no significant obstruction at this point. 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 PLAN: Botox injection into the bladder in the near future. The risks, benefits and alternatives of Botox were explained the patient in detail. He does understand that there is a risk of retention and the possibility that he may need a catheter or have to learn how to catheterize. Other risks include, but are not limited to, bleeding, infection, pain, the risk of injuring the bladder and the risk of anesthesia including stroke, heart attack and . The patient understands these risks. Informed consent was obtained. TT: 15 min (outside of the cystoscopy) CT: 10 min JR:TENZIN C: CONFIRM #: [id number] documented in this encounter Plan of Treatment Not on filedocumented as of this encounter Visit Diagnoses Diagnosis Bladder instability - Primary Other specified disorders of bladder documented in this encounter Care Teams Private Mortgage Banker Safe Relationship Specialty Start Date End Date Po Coats MD PCP - General 08/07/12 [address] [address] documented as of this encounter
--- OUTSIDE RECORDS SUMMARY | 2022-01-20 08:14 | XMS_ITS | Encounter Summary ---
:1950 Author Organization [employer] Address [address], [place] [address] Care Team Providers Name Role Phone Po Coats MD Primary Care Provider Encounter Details Date Type Department Care Team Description 10/31/2015 Hospital Encounter [facility] Stephanie Coulter , [place] [address] [place], [place] [address] [place], [place] [phone] (Wo rk) Social History Tobacco Use Types Packs/Day Years Used Date Smoking Tobacco: Never Assessed Sex Assigned at Date Recorded Not on file documented as of this encounter Last Filed Vital Signs Vital Sign Reading Time Taken Comments Blood Pressure 149/89 10/31/2015 5:54 AM CDT Pulse 68 10/31/2015 5:54 AM CDT Temperature 36.6 ??C (97.9 ??F) 10/31/2015 5:54 AM CDT Respiratory Rate 18 10/31/2015 5:54 AM CDT Oxygen Saturation 95% 10/31/2015 5:54 AM CDT Inhaled Oxygen Concentration - - Weight 116.6 kg (257 lb) 10/27/2015 11:59 AM CDT Height 175.3 cm (5' 9.02) 10/27/2015 11:59 AM CDT Body Mass Index 37.93 10/27/2015 11:59 AM CDT documented in this encounter Discharge Instructions Discharge Instr - Other Stephanie Rivero MD - 10/31/2015 7:28 AM CDT Discharge instructions: PATIENT SPECIFIC INSTRUCTIONS: For any issues after discharge, please contact me or my nurse at [phone] or leave a message at [phone]. THINGS TO BE WORRIED ABOUT: Go to the Emergency Room, Urgent Care, or call Urology: *Temperature greater than 101 *Pain is not controlled with medications *Chest pain or shortness of breath GENERAL ACTIVITY: *You may shower *Take pain medications as indicated. *No heavy lifting or rigorous exercise. Walking and climbing stairs is okay *No driving while taking pain medications *As tolerated URINE: *You may have some blood in the urine, this is expected. DIET: *Plenty of water, fruits, and vegetables documented in this encounter Medications at Time [...] ADULT OR) mouth daily (every 24 hours). cephALEXin (KEFLEX) 500 MG Take 1 capsule by 9 capsule 0 11/03/2015 capsule mouth 3 times daily for 3 days. atorvastatin (LIPITOR) 20 Take 1 tablet [...] 24 hours). documented as of this encounter Progress Notes Stephanie Coulter MD - 10/31/2015 8:11 AM CDTEncounter addended by: Stephanie Coulter MD on: 11/22/2015 8:39 PM
Documentation filed: Clinical Notes MAKER documented in this encounter Procedure Notes Stephanie Coulter MD - 10/31/2015 8:11 AM CDT OPERATIVE NOTE Pre op diagnosis: Bladder instability and overactive bladder Post op diagnosis: same Procedure: Cystoscopy with injection of botulinum toxin into detrusor muscle Surgeon: Stephanie Coulter MD Findings: No abnormalities in the bladder Estimated blood loss: 1 ml Specimen: none Complications: None Disposition: Discharge home INDICATIONS FOR PROCEDURE: Raul Dickson is a 65 y.o. male with a history of bladder instability and overactive bladder. Pleasesee my clinic note for full detail. DESCRIPTION OF OPERATION: After obtaining informed consent, the patient was brought to the operating room. Adequate anesthesiawas established. The patient was positioned in the dorsal lithotomy and prepped and draped in the usual fashion. A 22-Moroccan injection scope was used. 100 units of botulinum toxin were dissolved in 10 cc injectable saline. The injection scope was placed and the botulinum toxin was injected through an injection needle into 20 or more spots around the bladder, avoiding the bladder neck and the trigone. Pts bladder was drained. Urojet was placed. The patient tolerated the procedure well. MAKER documented in this encounter OR Notes H&P - Stephanie Coulter MD - 10/31/2015 6:49 AM CDT Surgery Update for Preop History and Physical For 10/31/2015 scheduled procedure Reviewed the medical History and Physical/Medications. Attached H&P Note Update to H&P includes: Patient and/or family denies any health changes since the H&P This patient has been evaluated by me today and has been found to be a suitable candidate for surgery. Stephanie Coulter MD 10/31/2015 documented in this encounter Miscellaneous Notes Medication History - Integration, MD Oscar - 10/31/2015 8:11 AM CDT INPATIENT MEDS Encounter Date: 10/25/15 oxyCODONE-acetaminophen (PERCOCET) 5-325 mg per tablet 1-2 tablet Start Date:10/31/15, End Date:10/31/15, Frequency:EVERY 4 HOURS PRN *No Administrations Recorded cephALEXin (KEFLEX) 500 mg capsule Start Date:10/31/15, End Date:11/03/15, Frequency:3 TIMES DAILY *No Administrations Recorded botulinum toxin type A (BOTOX) 100 Units in 0.9% sodium chloride 10 mL syringe Start Date:10/31/15, End Date:10/31/15, Frequency:ONCE *No Administrations Recorded midazolam (VERSED) 1 mg/mL injection 1-2 mg Start Date:10/31/15, End Date:10/31/15, Frequency:EVERY 5 MIN PRN *No Administrations Recorded fentaNYL (SUBLIMAZE) injection 25-50 mcg Start Date:10/31/15, End Date:10/31/15, Frequency:EVERY 5 MIN PRN *No Administrations Recorded ondansetron (ZOFRAN) injection 4 mg Start Date:10/31/15, End Date:10/31/15, Frequency:EVERY 4 HOURS PRN *No Administrations Recorded fentaNYL (SUBLIMAZE) injection 25-50 mcg Start Date:10/31/15, End Date:10/31/15, Frequency:EVERY 5 MIN PRN *No Administrations Recorded HYDROmorphone (DILAUDID) injection 0.2-0.4 mg Start Date:10/31/15, End Date:10/31/15, Frequency:EVERY 10 MIN PRN *No Administrations Recorded lidocaine 1% (PF) injection 0.1-0.3 mL Start Date:10/31/15, End Date:10/31/15, Frequency:ONCE *No Administrations Recorded lidocaine 1% (PF) injection 0.1-0.3 mL Start Date:10/31/15, End Date:10/31/15, Frequency:PRN *No Administrations Recorded ceFAZolin (ANCEF) 2 g in dextrose 100 ml IVPB Start Date:10/31/15, End Date:10/31/15, Frequency:ONCE *No Administrations Recorded lactated ringers infusion Start Date:10/31/15, End Date:-, Frequency:- *No Administrations Recorded lidocaine 1% (PF) 10 mg/mL (1 %) injection Start Date:10/31/15, End Date:-, Frequency:- *No Administrations Recorded propofol (DIPRIVAN) 10 mg/ml injection Start Date:10/31/15, End Date:-, Frequency:- *No Administrations Recorded lidocaine 1% 1 % injection Start Date:10/31/15, End Date:-, Frequency:- *No Administrations Recorded ondansetron (ZOFRAN) 4 mg/2 mL injection Start Date:10/31/15, End Date:-, Frequency:- *No Administrations Recorded fentaNYL (SUBLIMAZE) 50 mcg/mL injection Start Date:10/31/15, End Date:-, Frequency:- *No Administrations Recorded midazolam (VERSED) 1 mg/mL injection Start Date:10/31/15, End Date:-, Frequency:- *No Administrations Recorded lidocaine (XYLOCAINE URO-JET) 2 % jelly Start Date:10/31/15, End Date:-, Frequency:- *No Administrations Recorded propofol (DIPRIVAN) 10 mg/ml injection Start Date:10/31/15, End Date:-, Frequency:- *No Administrations Recorded IP AVS Snapshot - Oscar Colón MD - 10/31/2015 7:41 AM CDT Shirley Barros [facility] After Visit Summary [facility] [address] [facility] [address] Department: [phone] Raul A Randolph About your hospitalization You were admitted on: October 31, 2015 You last received care on: [facility] You were discharged on: October 31, 2015 Unit phone number: [phone] If you have any questions or concerns, call your surgeon: Stephanie Coulter,* Following is your updated medication list ?? This medication list is based on: ?? Information you provided us ?? Medications prescribed prior to today. If taking differently than originally prescribed, please tell the prescribing physician during your next visit. ?? New medications from your surgeon and changes your surgeon made to your medications ?? Compare this medication list with the labels on your prescription medications at home. If you have any questions or concerns, contact your primary care doctor's office. Your Medications START taking these medications Quantity & Refills Last Dose Given cephALEXin 500 mg capsule Take 1 capsule by mouth 3 times daily for 3 days. Commonly known as: KEFLEX Quantity: 9 capsule Refills: 0 CONTINUE these medications Quantity & Refills Last Dose Given aspirin EC 81 mg EC tablet Take 1 tablet by mouth daily (every 24 hours). Quantity: 100 tablet Refills: 3 atorvastatin 20 mg tablet Take 1 tablet by mouth daily (every 24 hours). Commonly known as: LIPITOR Quantity: 90 tablet Refills: 3 Magnesium 250 mg Tab Take 250 mg by mouth daily (every 24 hours). Refills: 0 mirabegron 25 mg tablet Take 1 tablet by mouth daily (every 24 hours). Commonly known as: MYRBETRIQ Quantity: 90 tablet Refills: 0 multivitamin tablet Take 1 tablet by mouth daily (every 24 hours). Commonly known as: THERAGRAN Refills: 0 oxybutynin 10 mg 24 hr tablet Take 1 tablet by mouth daily (every 24 hours). 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 You received printed prescriptions for the following medications or they are available over the counter. You may pick them up at any pharmacy: - cephALEXin 500 mg capsule Instructions for after Discharge Other Instructions Avoid rapid movements for 24 hours. You may feel dizzy after the procedure. Take care when cooking or using electrical devices. Do not drink alcohol for 24 hours. Do not drink alcohol or make any major decisions, such as signing important papers or managing legal issues, while taking prescription pain medication. Do not drive or operate heavy equipment for at least 24 hours. Do not make any major decisions, such as signing important papers or managing legal issues, for 24 hours. Education Information provided for your surgery. If you have any questions or concerns, call your surgeon. You must be accompanied by a responsible adult commercial truck driver at the time you are discharged. You must have a responsible adult with you for at least 8 hours after surgery. Discharge instructions: PATIENT SPECIFIC INSTRUCTIONS: For any issues after discharge, please contact me or my nurse at [phone] or leave a message at [phone]. THINGS TO BE WORRIED ABOUT: Go to the Emergency Room, Urgent Care, or call Urology: *Temperature greater than 101 *Pain is not controlled with medications *Chest pain or shortness of breath GENERAL ACTIVITY: *You may shower *Take pain medications as indicated. *No heavy lifting or rigorous exercise. Walking and climbing stairs is okay *No driving while taking pain medications *As tolerated URINE: *You may have some blood in the urine, this is expected. DIET: *Plenty of water, fruits, and vegetables Physicians who cared for you during your hospitalization Provider Role Stephanie Coulter MD Attending Provider Current Immunizations FLUARIX INFLUENZA QIV (36+ MOS) 12/28/2014, 12/25/2013 FLUZONE INFLUENZA QIV (36+MOS) 01/26/2013 INFLUENZA TIV 0.5 ML (36+ MOS) 12/21/2009, 01/12/2009, 02/27/2006 Influenza TIV (36+ mos) 12/12/2011, 12/08/2010 PCV13 05/04/2015 PNEUMOVAX 12/12/2011 Pneumococcal vaccine (pneumovax) 02/27/2006 TDAP (BOOSTRIX) 12/25/2013 Td Adult (>7 years) 03/09/2003 Zoster 09/17/2011 You are allergic to the following Date Reviewed: 10/31/2015 No active allergies ` Nurse Signature: Date: Physician electronic signature Patient Signature: Date: Surgery Belongings Surgery Belongings at bedside/with Patient Most Recent Value Patient Belongings left in [facility] (Surgery use only) Belongings to [facility] Clothing, Vision Clothing Clothing Bag/Garment Bag Vision Glasses Medications Brought by Patient Most Recent Value Patient Medications Medications brought by patient? No Acknowledgement of belongings returned - Patient/family signature/initials: Your medications For your own use Morning Noon Evening Bedtime aspirin EC 81 mg EC tablet atorvastatin 20 mg tablet Commonly known as: LIPITOR Take 1 tablet by mouth daily (every 24 hours). cephALEXin 500 mg capsule Commonly known as: KEFLEX Take 1 capsule by mouth 3 times daily for 3 days. Magnesium 250 mg Tab mirabegron 25 mg tablet Commonly known as: MYRBETRIQ Take 1 tablet by mouth daily (every 24 hours). multivitamin tablet Commonly known as: THERAGRAN oxybutynin 10 mg 24 hr tablet Commonly known as: DITROPAN-XL Take 1 tablet by mouth daily (every 24 hours). documented in this encounter Plan of Treatment Not on filedocumented as of this encounter Visit Diagnoses Not on filedocumented in this encounter Care Teams Associate Sales Relationship Specialty Start Date End Date Po Coats MD PCP - General 08/07/12 [address] [address] documented as of this encounter
--- OUTSIDE RECORDS SUMMARY | 2022-01-20 08:14 | XMS_ITS | Encounter Summary ---
:1950 Author [facility] Address [address] [place] [address] Care Team Providers Name Role Phone Po Coats MD Primary Care Provider Encounter Details Date Type Department Care Team Description 12/28/2014 Immunization [place] [facility] Need for influenza Medicine vaccination (Primary [id number] Dx) [place] [phone] Social History Tobacco Use Types Packs/Day Years Used Date Smoking Tobacco: Never Assessed Sex Assigned at Date Recorded Not on file documented as of this encounter Plan of Treatment Not on filedocumented as of this encounter Visit Diagnoses Diagnosis Need for influenza vaccination - Primary Need for prophylactic vaccination and in oculation against influenza documented in this encounter Care Teams Supervisor Network Control Operators Relationship Specialty Start Date End Date Po Coats MD PCP - General 08/07/12 [address] [address] documented as of this encounter
--- OUTSIDE RECORDS SUMMARY | 2022-01-20 08:14 | XMS_ITS | Encounter Summary ---
:1950 Author Organization [employer] Address [address] [place] [address] Care Team Providers Name Role Phone Po Coats MD Primary Care Provider Reason for Visit Reason Comments Recheck Encounter Details Date Type Department Care Team Description 12/29/2014 Office Visit [facility] Shelby Johnson, Complex sleep apnea [address] [facility] GLEN MCDANIEL syndrome (Primary Dx) [place] [address] [address] [facility] [phone] [place], [place] [phone] (Wo rk) Social History Tobacco Use Types Packs/Day Years Used Date Smoking Tobacco: Never Assessed Sex Assigned at Date Recorded Not on file documented as of this encounter Last Filed Vital Signs Vital Sign Reading Time Taken Comments Blood Pressure 142/84 12/29/2014 2:16 PM CDT Pulse 64 12/29/2014 2:16 PM CDT Temperature - - Respiratory Rate - - Oxygen Saturation 94% 12/29/2014 2:16 PM CDT Inhaled Oxygen Concentration - - Weight 120.7 kg (266 lb) 12/29/2014 2:16 PM CDT Height - - Body Mass Index 39.28 12/28/2014 7:12 AM CDT documented in this encounter Progress Notes Shelby Johnson, GLEN MCDANIEL - 12/29/2014 3:01 PM CDT PULMONARY/SLEEP CLINIC FOLLOW-UP CHIEF COMPLAINT: Obstructive Sleep Apnea HPI: Raul Dickson is a 64 y.o. male with a history of complex sleep apnea. he is currently treated with ASV and returns for routine follow-up. he states that he has been doing very well with compliance. He does not feel that he has much more energy, but is doing well. PHYSICAL EXAM: BP 142/84 mmHg Pulse 64 Wt 266 lb (120.657 kg) SpO2 94% Data: Time frame: 90 days auto-ASV EPAP min 5, EPAP mzx 15, PS min 0, PS max 20, Max pressure 25. Rate auto. Leak: no large leak Average AHI 2.9 events/hr IMPRESSION AND PLAN: 1. Complex Sleep Apnea. Patient is currently doing well on his auto-asv. his compliance has significantly improved to 95%, with average use of 7.5 hours. We will continue his current settings and supplies. He will continue use. He is pleased with his progress. Follow up in 1-2 years with a download. 2. Hypersomnia. Discussed a wake-stimulating medication today, which he declines. Could trial Provigil in the future. All of the patient's questions were answered. he states understanding and agreement with my assessment and plan as above. Total time 15 min, more than half spent in face to face counseling and coordination of care. Shelby Johnson documented in this encounter Plan of Treatment Not on filedocumented as of this encounter Visit Diagnoses Diagnosis Complex sleep apnea syndrome - Primary Unspecified sleep apnea documented in this encounter Care Teams Weight Analyst Relationship Specialty Start Date End Date Po Coats MD PCP - General 08/07/12 [id number] [address] [address] documented as of this encounter
--- OUTSIDE RECORDS SUMMARY | 2022-01-20 08:14 | XMS_ITS | Encounter Summary ---
:1950 Author Organization [employer] Address [address], [place] [address] Care Team Providers Name Role Phone Po Coats MD Primary Care Provider Reason for Visit Reason Comments Ear Pain Encounter Details Date Type Department Care Team Description 07/24/2015 Hospital Encounter [facility] Cristal Jorge W L eft otitis media, unspecified chronicity, unspecified otitis media type; Brianna Renae MD Pharyngitis [address] [address] [facility] [phone] [place] [address] Social History Tobacco Use Types Packs/Day Years Used Date Smoking Tobacco: Never Assessed Sex Assigned at Date Recorded Not on file documented as of this encounter Last Filed Vital Signs Vital Sign Reading Time Taken Comments Blood Pressure 132/70 07/24/2015 12:13 PM CDT Pulse 66 07/24/2015 12:13 PM CDT Temperature 36.3 ??C (97.3 ??F) 07/24/2015 12:13 PM CDT Respiratory Rate 18 07/24/2015 12:13 PM CDT Oxygen Saturation - - Inhaled Oxygen [...] ADULT OR) mouth daily (every 24 hours). amoxicillin (aka AMOXIL) Take 1 tablet by 20 tablet 0 07/2308/03/2015 tablet mouth 2 times daily for 10 days. atorvastatin (LIPITOR) 20 Take 1 tablet by 90 tablet 3 04/1605/21/2016 MG tabletIndications: mouth daily (every Hyperlipidemia (HRC) 24 hours). mirabegron (AKA MYRBETRIQ) Take 1 tablet by 90 tablet 3 01/201608/18/2015 25 MG 24 hour release mouth daily (every tablet 24 hours). oxybutynin (AKA DITROPAN Take 1 tablet by 90 tablet 3 05/2508/18/2015 XL) 10 MG 24 hour release mouth daily (every tablet 24 hours). documented as of this encounter ED Notes Cristal Jorge MD - 07/24/2015 12:48 PM CDT dict CIATE ACCOUNT MANAGER Cristal Jorge MD - 07/24/2015 12:47 PM CDT ED Provider Notes signed by Cristal Jorge MD at 07/25/151709 Author: Cristal Jorge MD Service: (none) Author Type: Physician Filed: 07/25/151709 Note Time: 07/25/15935 Status: Signed Manager Secondary: Cristal Jorge MD (Physician) NAME: NICOLETTE RICE MR#: [id number] CSN: [id number] AUTHENTICATING CLINICIAN: Cristal Jorge MD CONFIRM #: [id number] LOC: 520 URGENT CARE PROGRESS NOTE DATE OF VISIT: 07/24/2015 : 1950 CHIEF COMPLAINT: Ear pain and sore throat. HPI: Mr. Rice is a 64-year-old gentleman coming with complaint of ear pain on the left side, cold symptoms, plus a sore throat for the last day or 2. Concerned about possible ear infection, about strep. ALLERGIES: Reviewed. MEDICATIONS: Reviewed. OBJECTIVE: VITAL SIGNS: Stable. Nose congested. Throat erythematous, no exudate. Left TM is mildly inflamed. Right TM is clear. Sinus nontender. NECK: There are a couple of tender lymph nodes in the left side of the neck. Strep test negative. ASSESSMENT: 1. Left otitis media. 2. Acute pharyngitis. PLAN: The changes are quite minimal. I asked him to wait till tomorrow, and if the ear pain increases thenstart amoxicillin, 10 days. Prescription given. If not, wait. Symptomatic measures otherwise. AKD:TENZIN C: CONFIRM #: [id number] documented in this encounter Miscellaneous Notes Medication History - Oscar Colón MD - 07/24/2015 12:48 PM CDT INPATIENT MEDS Encounter Date: 07/24/15 amoxicillin (AMOXIL) 875 mg tablet Start Date:07/24/15, End Date:08/03/15, Frequency:2 TIMES DAILY *No Administrations Recorded ED AVS Snapshot - Oscar Colón MD - 07/24/2015 12:43 PM CDT Images from the original note were not included. ED [facility] [address] [place] [address] Dept: [phone] [email or web address] Nicolette Rice 07/24/2015 12:14 PM UC Description: Male : 1950 Department: [facility] Thank you for choosing [facility] for your health care visit with Cristal Jorge MD. We are happy to care for you and provide this summary of your visit. Your primary resident care aid is currently listed as Po Coats MD. HERE IS WHAT YOU NEED TO KNOW To learn how you can take steps to stay as healthy as you can be visit [email or web address] HERE IS WHAT YOU NEED TO DO Call your clinic if: You develop new symptoms Your symptoms worsen unexpectedly You are not improving as expected You have questions about your visit or medications Future Appointments Provider Department Dept Phone 09/01/2015 9:15 AM Stephanie Coulter MD [facility] [phone] HERE IS INFORMATION FROM TODAY'S VISIT Reason for Visit Otalgia (EAR PAIN) Reason for Visit History Health issues considered by your clinician today Left otitis media, unspecified chronicity, unspecified otitis media type If you had any tests, you [...] (every 24 hours). Magnesium 250 mg Tab (Taking) Take 250 [...] Were BP Pulse Temp(Src) Resp Smoking Status 132/70 mmHg 66 36.3 ??C (97.3 ??F) (Oral) 18 Never Smoker Allergies as of 07/24/2015 No Known Allergies Immunization History Reviewed on 05/04/2015 FLUARIX INFLUENZA QIV (36+ MOS) 12/28/2014, 12/25/2013 [...] Diagnosis Comme nts GROUP A STREP STAT 07/24/2015 12:27 PM Left otitis media, R esults for this ANTIGEN SCREEN CDT unspecified procedure are in chronicity, the results unspecified otitis section. media type documented in this encounter Results RAPID STREP GROUP A WAIVED (07/24/2015 12:27 PM CDT) Analysis Performed At Patho logist Time Signature Strep A Negative Negative HP CONVERSION Antigen Strep A Source Throat: HP CONVERSION Specimen Anatomical Collection Method Collection Time Receive d Time (Source) Location / / Volume Laterality 07/24/2015 12:27 07/24/2015 3:45 PM CDT PM CDT Narrative HP CONVERSION - 07/24/2015 3:46 PM CDT Performed at [facility], [address] [place] [address] CLIA number [id number] Cristal Jorge MD LAB_1 Performing Organization Address City/State/ZIP Code Phon e Number HP CONVERSION documented in this encounter Visit Diagnoses Diagnosis Left otitis media, unspecified chronicit y, unspecified otitis media type Pharyngitis Acute pharyngitis Triage Assessment Note - Nohemi Lazar RN - 07/24/2015 12:13 PM CDT Cold sx x1wk. Now ear pain since yest. CIATE ACCOUNT MANAGER documented in this encounter Care Teams Metal Numerical Tool Programmer Relationship Specialty Start Date End Date Po Coats MD PCP - General 08/07/[address] [place] [address] documented as of this encounter
--- OUTSIDE RECORDS SUMMARY | 2022-01-20 08:14 | XMS_ITS | Encounter Summary ---
:1950 Author Organization [employer] [facility] Address [address], [place] [address] Care Team Providers Name Role Phone Po Coats MD Primary Care Provider Reason for Visit Reason Comments Follow-up Encounter Details Date Type Department Care Team Description 09/20/[address] [facility] [address] Follow-up [address] [place] [address] Social History Tobacco Use Types Packs/Day Years Used Date Smoking Tobacco: Never Assessed Sex Assigned at Date Recorded Not on file documented as of this encounter Progress Notes Stephanie Coulter MD - 09/25/2015 9:13 PM CDT Thanks Anne. [employer]IONS CONSULTANT Aixa Franco MA - 09/21/2015 1:49 PM CDT Pt voided 100 ml for uroflowmetry. Pt was then strait cathed to empty bladder PVR= 20 ml. Pt was given one macrobid after procedure. Hailee Redding PA-C - 09/21/2015 1:49 PM CDT PREPROCEDURE DIAGNOSES: 1. BPH s/p laser TURP in 09/2012. 2. Urinary urgency. 3. Urinary frequency. POSTPROCEDURE DIAGNOSES: 1. Moderate bladder capacity; 252 mL. 2. Good bladder compliance; baseline filling Pdet <10 cm H2O. 3. Mild suspected detrusor instability during filling. No UUI. 4. Successful bladder emptying with marked terminal Pdet; terminal Pdet 75 cm H2O, VV 252 mL, Qmax 8.0 mL/sec, PVR 0 mL, quiet voiding EMG. 5. ICS nomogram falls on the line between equivocal and obstructed. PROCEDURE: 1. Uroflowmetry. 2. Sterile urethral catheterization for measurement of postvoid residual urine volume. 3. Complex filling cystometrogram with measurement of bladder and rectal pressures. 4. Complex voiding cystometrogram with measurement of bladder and rectal pressures. 5. Electromyography of the pelvic floor during urodynamics. 6. Interpretation of urodynamics. INDICATIONS FOR PROCEDURE: Mr. Raul Dickson is a pleasant 65 y.o. male with BPH and h/o UTI. He is s/p laser vaporization of the prostate in 09/2012 which helped with obstructive symptoms but de michael urgency and frequency followed. Oxybutynin was initially helpful with daytime urinary frequency but nocturia as often as q30 minutes persisted. PVRs have remained low. Adding Myrbetriq to oxybutynin wasvery helpful, however, with the patient's change in insurance the Myrbetriq is now cost prohibitive at ~$400 for a 90 day supply. Bladder Botox was discussed but a baseline urodynamic assessment is planned prior to further management planning. DESCRIPTION OF PROCEDURE: Risks, benefits, and alternatives to urodynamics were discussed with the patient and he wished to proceed. Urodynamics are planned to better assess the primary etiology for Mr. Dickson's urologic dysfunction. It is unclear to me when the patient last took his anticholinergic bladder medication. After verbal consent was obtained, the patient was taken to the procedure room where uroflowmetry was performed. UROFLOWMETRY: Voided volume: 99 mL. Maximum flow rate: 11.7 mL/sec. Average flow rate: 7.3 mL/sec. Postvoid residual by catheter: 20 mL. Character of the curve: Plateau (not that voided volume is too low to characterize with certainty). Pretest urine dipstick showed trace intact blood and trace leuks. Next a 7F double-lumen urodynamics catheter was inserted into the bladder. A 7F rectal manometry catheter was placed in the rectum. EMG pads were placed on either side of the anal verge. The bladder was filled with NS at 50 mL/minute and serial pressures were recorded. With coughing there was an appropriate rise in vesical and abdominal pressures with no change in detrusor pressure, confirming good study catheter placement. DURING THE FILLING PHASE: First Sensation: 120 mL. First Desire: 150 mL. Strong Desire: 195 mL. Maximum Capacity: 252 mL. Uninhibited detrusor contractions: Possibly; one could argue that there are several small uninhibited detrusor contractions during the filling phase. It's difficult to assess if these are simple detrusor changes d/t a slight discrepancy between Pves and Pabd versus true detrusor spasms. With clinical c orrelation, it would make sense if these small pressures changes were indeed small bladder spasms. Compliance: Good, baseline filling Pdet <10 cm H2O. Continence: No stress leak with Valsalva at Pabd 65 cm H2O at a volume of 205 mL. EMG: Concordant during filling. DURING THE VOIDING PHASE: Detrusor Contraction: 75 cm of H2O pressure. Voided volume: 252 mL. Maximum flow rate: 8.0 mL/sec. Average flow rate: 3.4 mL/sec. Postvoid Residual: 0 mL. Detrusor sphincter dyssynergia: No obvious evidence of DESD. ICS nomogram: On the line between equivocal and obstructed. ASSESSMENT/PLAN: Mr. Raul Dickson is a pleasant 65 y.o. male with BPH s/p laser TURP with c/o urinary urgency, frequency and nocturia who demonstrated the following findings today on urodynamic evaluation: 1. Moderate bladder capacity; 252 mL. 2. Good bladder compliance; baseline filling Pdet <10 cm H2O. 3. Mild suspected detrusor instability during filling. No UUI. 4. Successful bladder emptying with marked terminal Pdet; terminal Pdet 75 cm H2O, VV 252 mL, Qmax 8.0 mL/sec, PVR 0 mL, quiet voiding EMG. 5. ICS nomogram falls on the line between equivocal and obstructed. - A single nitrofurantoin 100 mg capsule was provided for UTI prophylaxis following completion of today's study. The risk of UTI with UDS is low at ~2.5-3%. - Consider repeat cystoscopy to evaluate degree of possible bladder outlet obstruction, prostate regrowth d/t ICS nomogram findings. - If no significant RAINES, patient appears to be a good candidate for bladder Botox given his excellent terminal detrusor function and repeated ability to successfully empty. Sincerely, Anne Redding PA-C Department of Urologic Surgery documented in this encounter Plan of Treatment Not on filedocumented as of this encounter Procedures Procedure Name Priority Date/Time Associated Diagnosis Comme nts AUTOMATED URINALYSIS Routine 09/20/2015 1:10 PM Benign prostat ic Results for this DIPSTICK POCT CDT hyperplasia, procedure are in presence of lower the result s urinary tract section. symptoms unspecified, unspecified morphology Urinary frequency documented in this encounter Results (ABNORMAL) POCT AUTOMATED URINALYSIS DIPSTICK (09/20/2015 1:10 PM CDT) [facility] gist Method Time Signature Urine Glucose Negative mg/dL HP CONVERSION (POC) Urine Bilirubin Negative HP CONVERSION (POC) Urine Ketone Negative mg/dL HP CONVERSION (POC) Urine Specific 1.015 HP CONVERSION Mary Alice (POC) Urine Occult Trace-intact HP CONVERSION Blood (POC) Urine PH (POC) 7.0 HP CONVERSION Urine Protein Negative HP CONVERSION (POC) Urine Negative mg/dL HP CONVERSION Urobilinogen (POC) Urine Nitrite Negative HP CONVERSION (POC) Urine Leukocytes Trace (A) HP CONVERSION (POC) Urine Color Yellow HP CONVERSION (POC) Urine Appearance Clear HP CONVERSION (POC) Comment: Performed at [address] [place] [id number] [address] (POC) [id number] mg/dL HP CONV ERSION Specimen Anatomical Collection Method Collection Time Receive d Time (Source) Location / / Volume Laterality 09/20/2015 1:10 PM 6 1:15 CDT PM CDT Interface Provider LAB_1 Performing Organization Address City/State/ZIP Code Phon e Number HP CONVERSION documented in this encounter Visit Diagnoses Diagnosis Nocturia - Primary Benign prostatic hyperplasia, presence o f lower urinary tract symptoms unspecified, unspecified morphology Urinary frequency Urinary urgency Urgency of urination documented in this encounter Care Teams Peoplesoft Programmer Relationship Specialty Start Date End Date Po Coats MD PCP - General 08/07/[address] [place] [address] documented as of this encounter
--- OUTSIDE RECORDS SUMMARY | 2022-01-20 08:14 | XMS_ITS | Encounter Summary ---
:1950 Author Organization [employer] Address [address] [place] [address] Care Team Providers Name Role Phone Po Coats MD Primary Care Provider Reason for Referral Specialty Diagnoses / Procedures Referred By Contact Refer red To Contact Po Coats M [address] [place] [address] Referral ID Status Reason Start Date Expiration Date Visits Requ ested Visits Authorized Reason for Visit Reason Comments HAND PAIN Encounter Details Date Type Department Care Team Description 12/28/2014 Surgical Consult [facility] Nicolette Jj [facility] MD Dennise arthritis of finger, [address] [place] [address] DR zimmer (Primary Dx) [place] [address] [phone] Social History Tobacco Use Types Packs/Day Years Used Date Smoking Tobacco: Never Assessed Sex Assigned at Date Recorded Not on file documented as of this encounter Last Filed Vital Signs Vital Sign Reading Time Taken Comments Blood Pressure - - Pulse - - Temperature - - Respiratory Rate - - Oxygen Saturation - - Inhaled Oxygen Concentration - - Weight 120.2 kg (265 lb) 12/28/2014 7:12 AM CDT Height 175.3 cm (5' 9) 12/28/2014 7:12 AM CDT Body Mass Index 39.13 12/28/2014 7:12 AM CDT documented in this encounter Patient Instructions Patient InstructionsEmir Cummings OA - 12/28/2014 7:[address] Nicolette Jj MD Hand & Upper Extremity Surgeon Plant Protection Guard: Elizabet Kinney Please contact Elizabet for all surgery scheduling and administrative questions at [phone] Please contact Nurse triage for all medical related questions at [phone] Medication Requests: Prescriptions are not filled on Weekends or on Weekdays after 3:00PM For all medication refills: Request a refill using [employer] or contact your Pharmacy Please call [phone] to make future appointments. The right finger was injected with [id number]-[id number] and lidocaine. Avoid Strenuous Activity for the remainder of the day and avoid activities that cause pain for one to two weeks following the injection. Signs and Symptoms to watch for: If you have any redness, warmth or increasing pain at the site of the injection or develop a fever, please call [phone] documented in this encounter Progress Notes Nicolette Jj MD - 01/03/2015 12:45 PM CDT Progress Notes signed by Nicolette Jj MD at 01/05/15 105 Author: Nicolette Jj MD Service: (none) Author Type: Physician Filed: 01/05/15 1051 Note Time: 01/05/15813 Status: Signed Log Chipper: Nicolette Jj MD (Physician) NAME: NICOLETTE RICE MR#: [id number] CSN: [id number] AUTHENTICATING CLINICIAN: Nicolette Jj MD CONFIRM #: [id number] LOC: 711 CLINIC PROGRESS NOTE DATE OF VISIT: 12/28/2014 : 1950 CHIEF COMPLAINT: Right index finger pain. HISTORY: Nicolette is a 64-year-old right-hand dominant gentleman who presents with pain in the metacarpophalangeal joint of the right index finger. He indicates that this has been present since October. It developed spontaneously and seems to be getting progressively worse. He indicates that there were no preceding events including trauma. There were no changes in his activities. The pain simply started spontaneously and has been getting progressively worse. This pain at its worst is a 10/10. He denies any triggering in the digit. He localizes the pain. He denies any triggering or catching in the digit. He localizes pain to the area of the metacarpophalangeal flexion crease of the right index finger. He has had no treatment for this to date. PAST MEDICAL HISTORY: None. SURGICAL HISTORY: Shoulder surgery and bladder surgery not otherwise specified. FAMILY HISTORY: Noncontributory. SOCIAL HISTORY: As per HPI. 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 He lives with his . He does not smoke and describes occasional alcohol use. He does not exercise. MEDICATIONS: Updated, reviewed and reconciled in [place]. ALLERGIES: NO KNOWN DRUG ALLERGIES. REVIEW OF SYSTEMS: A 14-point review was completed by the patient on the intake questionnaire. Pertinent positives werehypertension, joint pains, and arthritis. EXAM: Nicolette is 69 inches tall and weighs 265 pounds. He is a pleasant adult male who is in no acute distress. There are no generalized bilateral upper extremity deformities, edema or atrophy. He has no ulnar drift of his digits. He does not have significant stigmata of arthritis. There is, however, tenderness to palpation over the metacarpophalangeal joint of the right index finger. He is able make a closed co mposite fist. Full extension. No triggering is noted. The extensor tendon stays well centralized. IMAGING: Plain films of the hand are reviewed. There are mild degenerative changes seen at the right index finger metacarpophalangeal joint with joint space narrowing and peripheral osteophyte formation. There is also a small volar osteophyte seen on the metacarpal head. IMPRESSION: Right index finger metacarpophalangeal joint pain secondary to osteoarthritic changes. PLAN: I discussed this with Nicolette. We discussed supportive care including activity modification, oral antiinflammatory medications and injections. We also discussed a silicone arthroplasty at the MP joint. After discussing the pros and cons of these options, Nicolette would like to avoid surgery, particularly since he has a physically demanding job and would prefer to pursue supportive care for now. He is interested in an injection. PROCEDURE: The skin overlying the metacarpophalangeal joint was prepped with alcohol. A mixture of 20 mg of Depo-Medrol and 0.5 mL of 1% lidocaine plain was then injected into the right index finger metacarpophalangeal joint with good flow and localization. He tolerated this well. He is aware the steroids will take 3 days to become effective, and he may be more achy until then. He will ice and use antiinflammatories as needed. Follow up at his discretion. MCW:STEFANI C: R:01/03/15 16:44 CONFIRM#:[id number] documented in this encounter Plan of Treatment Scheduled Referrals Name Type Priority Associated Diagnoses Order [facility] Hand Surgery Referral Routine Degenerative arthritis of Or dered: 12/28/2014, Consult-Adult/Peds finger, right Expires: 12/28/2014 documented as of this encounter Visit Diagnoses Diagnosis Degenerative arthritis of finger, right - Primary documented in this encounter Care Teams Sales Representative Printing Supplies Relationship Specialty Start Date End Date Po Coats MD PCP - General 08/07/12 [address] [address] documented as of this encounter
--- OUTSIDE RECORDS SUMMARY | 2022-01-20 08:14 | XMS_ITS | Encounter Summary ---
:1950 Author Organization [facility] Address [address], [place] [address] Care Team Providers Name Role Phone Po Coats MD Primary Care Provider Reason for Visit Reason Comments Foot Pain Encounter Details Date Type Department Care Team Description 12/13/2015 Initial Consult [facility] Jerod Bird , Pronation of both feet (Primary Dx); MedSurg DPM Plantar fasciitis [address] [place] [address] [place], [place] [phone] [id number] Social History Tobacco Use Types Packs/Day Years [...] encounter Progress Notes Jerod Bird DPM - 12/13/2015 8:46 AM CDT DATE OF VISIT: 12/13/2015 SUBJECTIVE: Raul Dickson is a pleasant 65 y.o. male who presents to clinic today for evaluation of left heel pain. This has been going on for 6 months. It is worse in the morning when getting up out of bed. He states that he does use orthotics and work shoes. He did receive orthotics in 2002 from me. He denies any injury or trauma. Adverse Drug Reactions: No Known Allergies Outpatient Prescriptions Prior to Visit Medication Sig Note ??? aspirin EC 81 mg EC tablet Take 1 tablet by mouth daily (every 24 hours). 06/11/2014: taking ??? atorvastatin (LIPITOR) 20 mg tablet Take 1 tablet by mouth daily (every 24 hours). ??? Magnesium 250 mg Tab Take 250 mg by mouth daily (every 24 hours). ??? mirabegron (MYRBETRIQ) 25 mg tablet Take 1 tablet by mouth daily (every 24 hours). ??? multivitamin (THERAGRAN) tablet Take 1 tablet by mouth daily (every 24 hours). ??? oxybutynin (DITROPAN-XL) 10 mg 24 hr tablet Take 1 tablet by mouth daily (every 24 hours). No facility-administered medications prior to visit. Review of Systems: Negative for fever, rash or shortness of breath. Past Medical History: No past medical history on file. Patient Active Problem List Diagnosis Date Noted ??? 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 Hyperlipidemia (HRC) 01/08/2014 ??? Pain Low Back 09/19/2002 Past Surgical History Procedure Laterality Date ??? Shoulder surgery ??? Bladder surgery 2012 Social History: Nonsmoker OBJECTIVE: 65 y.o. year old male who appears their stated age. Alert and oriented and in no acute distress. Walks without a limp and appears to be in general good health. DP and PT pulses are palpable.Hair growth is present on the digits and [...] of the plantar weightbearing surface of the calcaneus. There is no pain over the distal fascial band or with [id number] compression of the heel. No pain with stressing of the anterior or posterior tibial tendons. No pain over the Achilles tendon or sinus tarsi areas. No discomfort over the calcaneal nerve branch. No enlargements are palpated. There is no pain over the peroneal tendons. His current orthotics are from 2002 and do show some wobble. ASSESSMENT: Left heel pain Plantar fasciitis left heel PLAN: Treatment options were discussed with the patient. I discussed the condition in great detail. I discussed with the patient that the orthotics do show some wobble. I did suggest replacing these. Idid provide him with information to check with his health plan. A prescription was generated for Orth otics and Prosthetics. I did discuss a low dye strapping and this was applied to the left foot. He will keep this on and dry for 3-5 days. I did discuss wearing shoes in the house as well as stretchingand icing. An illustrated brochure was dispensed. If he continues to have symptoms, I could considerphysical therapy or cortisone injection. All questions answered. The patient was discharged ambulatory and in stable condition. Orders Placed This Encounter Procedures ??? Custom Orthotics ??? ORTHOTICS CONSULT ADULT (AMB) ? ? OR STRAPPING; ANKLE &/OR FOOT No orders of the defined types were placed in this encounter. (This note was created using voice recognition software and may contain some case repairer errors) DRIVER documented in this encounter Plan of Treatment Not on filedocumented as of this encounter Visit Diagnoses Diagnosis Pronation of both feet - Primary Plantar fasciitis Plantar fascial fibromatosis documented in this encounter Care Teams Dragline Operator Helper Relationship Specialty Start Date End Date Po Coats MD PCP - General 08/07/12 [address] [place] [id number] documented as of this encounter
--- OUTSIDE RECORDS SUMMARY | 2022-01-20 08:15 | XMS_ITS | Encounter Summary ---
:1950 Author [facility] Address [address] [place] [address] Care Team Providers Name Role Phone Po Coats MD Primary Care Provider Encounter Details Date Type Department Care Team Description 06/28/2014 Imaging [facility]iology MRI Knee pain [address] [id number] Social History Tobacco Use Types Packs/Day Years Used Date Smoking Tobacco: Never Assessed Sex Assigned at Date Recorded Not on file documented as of this encounter Plan of Treatment Not on filedocumented as of this encounter Procedures Procedure Name Priority Date/Time Associated Diagnosis Comme nts MR KNEE RT WO IV Routine 06/28/2014 12:58 PM Knee pain Resu lts for this CONT CDT procedure are i n the results section. documented in this encounter Results MR Knee Rt WO IV Cont (06/28/2014 12:58 PM CDT) Anatomical Region Laterality Modality Lower Extremity, Knee, Skeletal, Thigh, Leg Right Other Specimen (Source) Anatomical Location Collection Method / Collectio n Time Received Time / Laterality Volume Impressions 06/28/2014 1:11 PM CDT IMPRESSION: ?? 1. Study degraded by motion artifact. 2. 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 3. Findings suggesting small loose body medial to the knee. Performed no ligamentous or meniscal tear confirmed. 5. Small popliteal cyst. Narrative 06/28/2014 1:11 PM CDT TECHNIQUE: ??Routine MRI of the right knee was performed without contrast. COMPARISON: ??Correlation made with x-ra ys 06/28/2014. FINDINGS: Study degraded by motion artif act. MEDIAL COMPARTMENT: ??There is zone of t hinning with some full-thickness involvement of the mid to lateral aspect of the of the posterior weightbearing medial femoral cartilage with small amount of subc hondral marrow edema. Slight undermining the medial edge of the affected segment of cartilag e as well. No medial meniscus tear confirmed. Some intrasubstance within the posterior horn. LATERAL COMPARTMENT: ??Some fissuring of the posterior weightbearing lateral tibial cartilage. Lateral femoral cartilage intact. No lateral meniscus tear confirmed. PATELLOFEMORAL JOINT: Thinning of patell ar cartilage with some full-thickness loss superiorly and medially. Subchondral subchondral marrow edema superiorly. Thinning of trochlear cartilage No significan t joint effusion. Small popliteal cyst. Adjacent to the medial femoral condyle as seen coron al series 7 and 8 slice 24 and sagittal series 5 and 6 slice 28 there is approximately 0.8 cm focus isointense with fat/bone some surrounding increased T2 signal. Does appear to be vague calcific/ossifi c density in this region on x-rays and findings woul d suggest loose body. LIGAMENTS AND TENDONS: ??The anterior an d posterior cruciate ligaments, medial collateral ligament, iliotibial band, fibular collateral ligament and biceps femoris tendons are intact. The popliteus musc le and tendon are normal. There is no ev idence of injury to the posterolateral corner supp orting structures. Semimembranosus tendon is intact. There is some fatty streaking/partial replacement involving the visualized semimembranosus muscle belly. EXTENSOR MECHANISM: The quadriceps and p atellar tendons are normal. The medial retinaculum, medial patellofemoral ligament, and lateral retinaculum are normal. MARROW AND SOFT TISSUES: ??Marrow signal elsewhere unremarkable. Mild marginal osteophyte formation at the medial compartment and superior patella. No soft tissue mass identified. Procedure Note Leobardo Bernabe MD - 10/02/2015Formatt ing of this note might be different from the original. TECHNIQUE: Routine MRI of the right knee was performed without contrast. COMPARISON: Correlation made with x-rays 06/28/2014. FINDINGS: Study degraded by motion artif act. MEDIAL COMPARTMENT: There is zone of thi nning with some full-thickness involvement of the mid to lateral aspect of the of the posterior weightbearing medial femoral cartilage with small amount of subchondral marrow edema. Slight undermining the med ial edge of the affected segment of cartilag e as well. No medial meniscus tear confirmed. Some intrasubstance within the posterior horn. LATERAL COMPARTMENT: Some fissuring of t he posterior weightbearing lateral tibial cartilage. Lateral femoral cartilage intact. No lateral meniscus tear confirmed. PATELLOFEMORAL JOINT: Thinning of patell ar cartilage with some full-thickness loss superiorly and medially. Subchondral subchondral marrow edema superiorly. Thinning of trochlear cartilage No significant joint effusion. Small popliteal cyst. Ad jacent to the medial femoral condyle as seen coron al series 7 and 8 slice 24 and sagittal series 5 and 6 slice 28 there is approximately 0.8 cm focus isointense with fat/bone some surrounding increased T2 signal. Does appear to be vague calcific/ossific density in this region on x-rays and findings woul d suggest loose body. LIGAMENTS AND TENDONS: The anterior and posterior cruciate ligaments, medial collateral ligament, iliotibial band, fibular collateral ligament and biceps femoris tendons are intact. The popliteus muscle and tendon are normal. There is no evidence of injury to the posterolateral corner supp orting structures. Semimembranosus tendon is intact. There is some fatty streaking/partial replacement involving the visualized semimembranosus muscle belly. EXTENSOR MECHANISM: The quadriceps and p atellar tendons are normal. The medial retinaculum, medial patellofemoral ligament, and lateral retinaculum are normal. MARROW AND SOFT TISSUES: Marrow signal e lsewhere unremarkable. Mild marginal osteophyte formation at the medial compartment and superior patella. No soft tissue mass identified. IMPRESSION IMPRESSION: 1. Study degraded by motion artifact. 2. 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 3. Findings suggesting small loose body medial to the knee. Performed no ligamentous or meniscal tear confirmed. 5. Small popliteal cyst. Todd Holloway MD RAD MRI documented in this encounter Visit Diagnoses Diagnosis Knee pain Pain in joint, lower leg documented in this encounter Care Teams Map Colorer Relationship Specialty Start Date End Date Po Coats MD PCP - General 08/07/[address] [place] [address] documented as of this encounter
--- OUTSIDE RECORDS SUMMARY | 2022-01-20 08:15 | XMS_ITS | Encounter Summary ---
:1950 Author Organization [facility] Address [address], [place] [address] Care Team Providers Name Role Phone Po Coats MD Primary Care Provider Reason for Visit Reason Comments Other Encounter Details Date Type Department Care Team Description 12/25/2013 Telephone [facility] Carlo Coats MD Other Medicine [address] [facility] [address] [place], [place] [id number] [place] [address] [phone] Social History Tobacco Use Types Packs/Day Years Used Date Smoking Tobacco: Never Assessed Sex Assigned at Date Recorded Not on file documented as of this encounter Nursing Notes Camelia Chavez RN - 12/25/2013 11:46 AM CDT Spoke with patient, gave number for sleep center to schedule appt for sleep study. No further questions. Liane Vo - 12/25/2013 11:27 AM CDT orders are in the system for sleep study but pt did not get any paper work at his appt today please advise how to proceed. documented in this encounter Plan of Treatment Not on filedocumented as of this encounter Visit Diagnoses Not on filedocumented in this encounter Care Teams Health And Safety Consultant Relationship Specialty Start Date End Date Po Coats MD PCP - General 08/07/12 [address] [address] documented as of this encounter
--- OUTSIDE RECORDS SUMMARY | 2022-01-20 08:15 | XMS_ITS | Encounter Summary ---
:1950 Author [facility] Address [address], [place] [address] Care Team Providers Name Role Phone Po Coats MD Primary Care Provider Encounter Details Date Type Department Care Team Description 06/05/2014 Basketball Commentator Only [facility] [address] Teresita Galeano MD Urgent Care [address] [facility] [address] [place] [id number] [phone] Social History Tobacco Use Types Packs/Day Years Used Date Smoking Tobacco: Never Assessed Sex Assigned at Date Recorded Not on file documented as of this encounter Progress Notes Allyson Galeano MD - 06/05/2014 12:58 PM CST Progress Notes signed by Allyson Galeano MD at 06/26/14724 Author: Allyson Galeano MD Service: (none) Author Type: Physician Filed: 06/26/14724 Note Time: 06/05/14 142 Status: Signed Wave Soldering Machine Operator: Allyson Galeano MD (Physician) NAME: NICOLETTE RICE MR#: [id number] CSN: AUTHENTICATING CLINICIAN: Allyson Galeano MD CONFIRM #: [id number] LOC: [facility] PHONE CALL DATE OF PHONE CALL: 06/05/2014 : 1950 I did speak with Mr. Rice today regarding his chest x-ray results and the elevated right hemidiaphragm. He is going to follow up with his primary care doctor just for recheck on his cough at the end of next week or the beginning of the week after that and to discuss this elevated right hemidiaphragm, and if they want to proceed with any further testing results. Patient is in agreement with the plan. SUELLENM:TENZIN C: CONFIRM #: [id number] documented in this encounter Plan of Treatment Not on filedocumented as of this encounter Visit Diagnoses Not on filedocumented in this encounter Care Teams Embossing Toolsetter Relationship Specialty Start Date End Date Po Coats MD PCP - General 08/07/12 [address] [place] [address] documented as of this encounter
--- OUTSIDE RECORDS SUMMARY | 2022-01-20 08:15 | XMS_ITS | Encounter Summary ---
:1950 Author Organization [employer] Address [address], [place] [address] Care Team Providers Name Role Phone Po Coats MD Primary Care Provider Reason for Visit Reason Comments Cough Encounter Details Date Type Department Care Team Description 06/03/2014 Hospital Encounter [facility] Allyson Galeano MD Cough; [address] [facility] [address] [address] [address] [phone] [place] [address] (Wo rk) Social History Tobacco Use Types Packs/Day Years Used Date Smoking Tobacco: Never Assessed Sex Assigned at Date Recorded Not on file documented as of this encounter Last Filed Vital Signs Vital Sign Reading Time Taken Comments Blood Pressure 130/83 06/03/2014 9:32 AM INTEGRITY ANALYST Pulse 74 06/03/2014 9:32 AM INTEGRITY ANALYST Temperature 37.1 ??C (98.8 ??F) 06/03/2014 9:32 AM INTEGRITY ANALYST Respiratory Rate 16 06/03/2014 9:32 AM INTEGRITY ANALYST Oxygen Saturation 95% 06/03/2014 9:32 AM INTEGRITY ANALYST Inhaled Oxygen Concentration - - Weight - [...] mouth daily (every Hyperlipidemia (HRC) 24 hours). levoFLOXACIN (aka Take 1 tablet by 10 tablet 0 06/03/2014 0 06/13/2014 LEVAQUIN) tablet mouth daily (every 24 hours) for 10 days. documented as of this encounter Progress Notes Allyson Galeano MD - 06/04/2014 8:11 AM CST Progress Notes signed by Allyson Galeano MD at 06/24/14 0745 Author: Allyson Galeano MD Service: (none) Author Type: Physician Filed: 06/24/14 0745 Note Time: 06/04/1439 Status: Signed Corporation Pilot: Allyson Galeano MD (Physician) NAME: NICOLETTE RICE MR#: [id number] CSN: [id number] AUTHENTICATING CLINICIAN: Allyson Galeano MD CONFIRM #: [id number] LOC: [facility] ADDENDUM DATE OF VISIT: 06/04/2014 : 1950 I did speak with the radiologist concerning the elevated hemidiaphragm. This was on the right side. His chest discomfort was more on the left, and he has had a recent cough and a cold. He did have a small amount of elevated right hemidiaphragm on his previous x-ray, but this seems to have worsened. After speaking with the radiologist, certainly the differential would include some diaphragm paralysis,liver enlargement which was deemed less likely by the radiologist or atelectasis. Since this is increased since previous, we are going to have him follow up with his primary care doctor, and we will get in contact with him today about that and have him follow up with his primary for further evaluationand treatment. Right now, patient is certainly asymptomatic, and it has been there to a milder degree in the past, so certainly probably something chronic, but will have him follow up for further evaluation. KMM:MEDQ C: CONFIRM #: [id number] documented in this encounter ED Notes Allyson Galeano MD - 06/04/2014 8:00 AM CST ED Provider Notes signed by Allyson Galeano MD at 06/24/1445 Author: Allyson Galeano MD Service: (none) Author Type: Physician Filed: 06/24/1445 Note Time: 06/04/14838 Status: Signed Corporation Pilot: Allyson Galeano MD (Physician) NAME: NICOLETTE RICE MR#: [id number] CSN: [id number] AUTHENTICATING CLINICIAN: Allyson Galeano MD CONFIRM #: [id number] LOC: [facility] PROGRESS NOTE DATE OF VISIT: 06/03/2014 : 1950 CHIEF COMPLAINT: Cough. HPI: This pleasant 63-year-old comes in today complaining of a cough. He has had a cough for the past 4-5days, but seems to be getting worse rather than better. It is a very deep cough. He does not have a history of asthma. He has had a dry cough, but every once in a while he will cough up a little bit ofmucus. He has been coughing so hard that he thinks that he may have irritated the left side of his chest. He has pain only when he coughs. He does not have pain with deep breathing. No pleuritic chest pain, just this left-sided pain when he coughs. Denies any recent long car rides or airplane rides. No recent travel. Denies any calf tenderness. He has not had a fever. He does have quite a bit of sinus pressure, as well. He has a mild sore throat. PAST MEDICAL HISTORY: Low back pain, hyperlipidemia, complex sleep apnea syndrome, adenoma of large intestine. PAST SURGICAL HISTORY: Reviewed through [employer]. MEDICATIONS: Reviewed through [employer]. ALLERGIES: No known drug allergies. OBJECTIVE: Temperature 98.8, pulse 74, respirations 16, blood pressure 130/83, O2 sats 95% on room air. GENERAL: Alert and oriented in no apparent distress. Tympanic membranes no sign of infection. Sinuses are tender in the maxillary region. Nares no swelling, erythematous turbinates. Oropharynx pink and moist. Thick green postnasal drip. LUNGS: Reveal scattered rhonchi that do clear with coughing. There is increased congestion in the left lower lobe. There is no wheezing, good breath sounds. HEART: Regular without murmurs, rubs, or gallops. ABDOMEN: Soft, nontender. SKIN: Without rash or cyanosis. Patient does have this left-sided chest pain if he twists or turns or if he coughs. Breathing does not reciprocate the chest pain. There is no calf tenderness. DIAGNOSTIC STUDIES: Chest x-ray was within normal limits except for an elevated of the right hemidiaphragm. ASSESSMENT: Bronchitis. Concerned about possible early pneumonia with the clinical exam. PLAN: Will treat with Levaquin 500 mg 1 p.o. q. day for 10 days. Rest, fluids, ibuprofen and Tylenol. Willfollow up with his primary care doctor regarding the elevated right hemidiaphragm. He, before getting sick, had no trouble with shortness of breath, voice changes. He does have what appears to be a pleuritic component, so we will also have him do anti-inflammatories, and he will follow up with his primary care doctor in a month, and he is in agreement with the plan. He understands he needs to follow up with his primary MD for reevaluation of his pneumonia and elevation of the hemidiaphragm. KMM:MEDQ C: CONFIRM #: [id number] Allyson Galeano MD - 06/03/2014 11:21 AM CST .dict documented in this encounter Miscellaneous Notes Medication History - Oscar Colón MD - 06/03/2014 11:21 AM CST INPATIENT MEDS Encounter Date: 06/03/14 levofloxacin (LEVAQUIN) 500 mg tablet Start Date:06/03/14, End Date:06/13/14, Frequency:DAILY *No Administrations Recorded GRITY ANALYST ED AVS Snapshot - Oscar Coóln MD - 06/03/2014 11:21 AM CST Images from the original note were not included. [facility] [address] [place] [address] Dept: [phone] [email or web address] Nicolette Rice 06/03/2014 10:12 AM Hospital Encounter Description: Male : 1950 Department: [facility] Thank you for choosing [facility] for your health care visit with Allyson Galeano MD. Weare happy to care for you and provide this summary of your visit. Your primary out of school hours care worker is currently listed as Po Coats MD. HERE IS WHAT YOU NEED TO KNOW To learn how you can take steps to stay as healthy as you can be visit [email or web address] HERE IS WHAT YOU NEED TO DO Call your clinic if you develop new or worsening symptoms or if you have questions about your visit or medications. Future Appointments Provider Department Dept Phone 06/23/2014 11:00 AM Shelby Johnson APRN, CNP [facility] [phone] 08/26/2014 9:15 AM Stephanie Coulter MD [facility] [phone] Follow-up Information Please follow up. Why: If symptoms worsen HERE IS INFORMATION FROM TODAY'S VISIT Reason for Visit Cough for 5 days but is getting worse Reason for Visit History Health issues considered by your clinician today Cough Pneumonia If you had any tests, you will be notified of your abnormal results by your clinic. We Performed the Following XR Chest * PA and Left Lateral (Standard) Medications administered today None MEDICATIONS As of today's visit, these are your current medications Medication DOSAGE aspirin EC 81 mg EC tablet (Taking) Take 1 tablet by mouth daily (every 24 hours). atorvastatin (LIPITOR) 20 mg tablet (Taking) Take 1 tablet by mouth daily (every 24 hours). levofloxacin (LEVAQUIN) 500 mg tablet Take 1 tablet by mouth daily (every 24 hours) for 10 days. Magnesium 250 mg Tab (Taking) Take 250 mg by mouth daily (every 24 hours). multivitamin (THERAGRAN) tablet (Taking) Take 1 tablet by mouth daily (every 24 hours). Vital signs from your visit Your Vitals Were BP Pulse Temp(Src) Resp SpO2 130/83 74 37.1 ??C (98.8 ??F) (Oral) 16 95% Allergies as of 06/03/2014 No Known Allergies Immunization History Reviewed on 01/20/2014 FLUARIX INFLUENZA QIV (36+ MOS) 12/25/2013 FLUZONE INFLUENZA QIV (36+MOS) 01/26/2013 INFLUENZA TIV 0.5 ML (36+ MOS) 12/21/2009, 01/12/2009, 02/27/2006 Influenza TIV (36+ mos) 12/12/2011, 12/08/2010 PNEUMOVAX 12/12/2011 Pneumococcal vaccine (pneumovax) 02/27/2006 TDAP (BOOSTRIX) 12/25/2013 Td Adult (>7 years) 03/09/2003 Zoster 09/17/2011 About You Date Of Sex Race Ethnicity Preferred Language 1950 Male White Non- Kazakh This document contains confidential information about your health and care. It is provided directlyto you for your personal, private use only. GRITY ANALYST documented in this encounter Plan of Treatment Not on filedocumented as of this encounter Procedures Procedure Name Priority Date/Time Associated Diagnosis Comme nts XR CHEST 2 VIEWS Routine 06/03/2014 10:48 AM Cough Resu lts for this INTEGRITY ANALYST procedure are i n the results section. documented in this encounter Results XR Chest 2 Views (06/03/2014 10:48 AM INTEGRITY ANALYST) Anatomical Region Laterality Modality Chest, Lung Other Specimen (Source) Anatomical Location Collection Method / Collectio n Time Received Time / Laterality Volume Impressions 06/03/2014 11:22 AM INTEGRITY ANALYST IMPRESSION: Elevated appearance of the right hemidia phragm. Clear lungs. Narrative 06/03/2014 11:22 AM INTEGRITY ANALYST COMPARISON: ??09/28/2004. FINDINGS: The heart size and pulmonary v ascularity are within normal limits. There is now an elevated appearance of the right hemidiaphragm. No focal lung opacities. Procedure Note John Timmons MD - 10/02/2015For matting of this note might be different from the original. COMPARISON: 09/28/2004. FINDINGS: The heart size and pulmonary v ascularity are within normal limits. There is now an elevated appearance of the right hemidiaphragm. No focal lung opacities. IMPRESSION IMPRESSION: Elevated appearance of the right hemidia phragm. Clear lungs. Allyson Galeano MD RAD GD documented in this encounter Visit Diagnoses Diagnosis Cough Pneumonia Pneumonia, organism unspecified documented in this encounter Care Teams Industrial Gas Servicer Helper Relationship Specialty Start Date End Date Po Coats MD PCP - General 08/07/12 [address] [address] [place] [address] documented as of this encounter
--- OUTSIDE RECORDS SUMMARY | 2022-01-20 08:15 | XMS_ITS | Encounter Summary ---
:1950 Author Organization [employer] Address [address] [address] Care Team Providers Name Role Phone Po Coats MD Primary Care Provider Reason for Visit Reason Comments RESULTS, TEST Encounter Details Date Type Department Care Team Description 02/18/2014 Telephone [facility] Stephanie Coulter MD RESULTS, TEST [id number] [employer] [facility] [address] [place] [address] [place] [address] (Wo rk) Social History Tobacco Use Types Packs/Day Years Used Date Smoking Tobacco: Never Assessed Sex Assigned at Date Recorded Not on file documented as of this encounter Nursing Notes Tara Begum RN - 02/25/2014 1:46 PM CST recall placed Stephanie Coulter MD - 02/24/2014 8:47 AM CST Talked with pt. It looks like from the sleep study that he is having apneic episodes. I do not thinkadditional bladder medication would be helpful at this point. Pt has a follow up apt with regarding the sleep study in March. I would like him to follow up with me in 6 months. Tara Begum RN - 02/18/2014 11:50 AM CST Review sleep study results and call pt. TAL PRODUCT MANAGER documented in this encounter Plan of Treatment Not on filedocumented as of this encounter Visit Diagnoses Not on filedocumented in this encounter Care Teams Graphic Engineer Relationship Specialty Start Date End Date Po Coats MD PCP - General 08/07/12 [address] [address] [place] [id number] documented as of this encounter
--- OUTSIDE RECORDS SUMMARY | 2022-01-20 08:15 | XMS_ITS | Encounter Summary ---
:1950 Author Organization [employer] Address [address], [place] [address] Care Team Providers Name Role Phone Po Coats MD Primary Care Provider Reason for Visit Reason Comments FACIAL PAIN Encounter Details Date Type Department Care Team Description 07/14/2014 Hospital Encounter [facility] Kirk Dawson [facility] (upper respiratory infection); Brianna Oconnell MD Acute conjunctivitis of both eyes; [address] Other recurre nt acute nonsuppurative otitis media of both ears [address] [employer] [facility] [address] [place] [address] [phone] Social History Tobacco Use Types Packs/Day Years Used Date Smoking Tobacco: Never Assessed Sex Assigned at Date Recorded Not on file documented as of this encounter Last Filed Vital Signs Vital Sign Reading Time Taken Comments Blood Pressure 148/80 07/14/2014 9:05 AM CDT Pulse 75 07/14/2014 9:05 AM CDT Temperature 36.5 ??C (97.7 ??F) 07/14/2014 9:05 AM CDT Respiratory Rate 16 07/14/2014 9:05 AM CDT Oxygen Saturation - - Inhaled Oxygen Concentration - - Weight - - Height - - Body Mass Index - - documented in this encounter Medications at Time of Discharge Medication Sig Dispensed Refills Start Date End Date aspirin EC 81 MG enteric Take 1 tablet by 100 tablet 3 01/08 coated mouth daily (every tabletIndications: 24 hours). STU BANSAL SatApr 16, 2014 7:16 AM Held asa times one week in prep for colonoscopy ANDREW MELENDEZ SatJun 11, 2014 12:54 PM taking magnesium 250 MG Take 250 mg by mouth 0 4 daily (every 24 hours). Multiple Take 1 tablet by 0 12/25/2013 Vitamins-Minerals mouth daily (every (MULTIVITAMIN ADULT OR) 24 hours). atorvastatin (AKA Take 1 tablet by 90 tablet 3 01/08/2014 0 11/25/2014 LIPITOR) 20 MG mouth daily (every tabletIndications: 24 hours). Hyperlipidemia (HRC) cephALEXin (aka KEFLEX) Take 1 capsule by 30 capsule 0 07/1407/23/2014 capsule mouth 3 times daily for 10 days. May take 1 pill 3 times a day, or 2 pills in am and 1 pill in pm. tobramycin (aka TOBREX) Take 1 drop as 5 mL 0 07/15/19 15 07/21/2014 0.3 % eye drops instructed 4 times daily for 7 days. Use in affected eye. documented as of this encounter ED Notes Kirk Dawson MD - 07/14/2014 11:01 AM CDT ED Provider Notes signed by Kirk Dawson MD at 08/02/141844 Author: Kirk Dawson MD Service: (none) Author Type: Physician Filed: 08/02/14 5702 Note Time: 07/14/14 1132 Status: Signed Developer Programmer: Kirk Dawson MD (Physician) NAME: NICOLETTE RICE MR#: [id number] CSN: [id number] AUTHENTICATING CLINICIAN: Kirk Dawson MD CONFIRM #: [id number] LOC: [facility] PROGRESS NOTE DATE OF VISIT: 07/14/2014 : 1950 SUBJECTIVE: The patient is a 63-year-old male who is here with a number of symptoms. His left greater than righteyes bothered him today with some mattering, but he has also had sinus mucus, and then a cough producing green mucus1-2 days, but also both ears have been bothering him for the last several days as well. SOCIAL HISTORY: He states he is retired, and he has not had any other exposures to infections. He does feel some drainage in the posterior pharynx, but has not had fever, vomiting, diarrhea, or shortness of breath. ALLERGIES: No allergies to medicines. MEDICATIONS: Home medicines are as listed in Epic. Overall symptoms described as mild to moderate, and he has not tried anything yet. OBJECTIVE: BP 140/80, which he will have his doctor follow, pulse 75, respirations 16. Exam shows mild left greater than right otitis media and left greater than right conjunctivitis. Some thickening of nasal drainage is noted into the posterior pharynx. Cough sounds dry. LUNGS: Clear. HEART: Shows regular rate and rhythm. SKIN: Shows no rashes. Homans sign is negative. ASSESSMENT: 1. Upper respiratory infection. 2. Bilateral otitis media. 3. Conjunctivitis. PLAN: We will do a course of Keflex. Also, warm packs to the eyes, and tobramycin drops. Other safe symptomatic medicines were also discussed with him. He agrees to follow up if worsens or if new symptoms, and then he will also recheck if not improving quickly and completely with everything as we discussed. WDL:MEDQ C: CONFIRM #: [id number] documented in this encounter Miscellaneous Notes Medication History - Oscar Colón MD - 07/14/2014 9:33 AM CDT INPATIENT MEDS Encounter Date: 07/14/14 cephALEXin (KEFLEX) 500 mg capsule Start Date:07/14/14, End Date:07/23/14, Frequency:3 TIMES DAILY *No Administrations Recorded tobramycin (TOBREX) 0.3 % ophthalmic solution Start Date:07/14/14, End Date:07/21/14, Frequency:4 TIMES DAILY *No Administrations Recorded documented in this encounter Plan of Treatment Not on filedocumented as of this encounter Visit Diagnoses Diagnosis URI (upper respiratory infection) Acute upper respiratory infections of un specified site Acute conjunctivitis of both eyes Acute conjunctivitis, unspecified Other recurrent acute nonsuppurative heydi tis media of both ears Triage Assessment Note - Bernarda Betancourt RN - 07/14/2014 9:05 AM CDT Pt c/o sinus pain, left ear pain, and mattery eyes, onset x 2 days. documented in this encounter Care Teams Stem Cutter Relationship Specialty Start Date End Date Po Coats MD PCP - General 08/07/[address] [place] [address] documented as of this encounter
--- OUTSIDE RECORDS SUMMARY | 2022-01-20 08:15 | XMS_ITS | Encounter Summary ---
:1950 [facility] Address [address], [place] [address] Care Team Providers Name Role Phone Po Coats MD Primary Care Provider Encounter Details Date Type Department Care Team Description 04/16/2014 Hospital Encounter [facility] 6500 Annual physical exam Endoscopy 6[address] [facility]. [place], [place] [address] Social History Tobacco Use Types Packs/Day Years Used Date Smoking Tobacco: Never Assessed Sex Assigned at Date Recorded Not on file documented as of this encounter Last Filed Vital Signs Vital Sign Reading Time Taken Comments Blood Pressure 143/82 04/16/2014 8:30 AM INTERNATIONAL TRAVEL CONSULTANT Pulse 68 04/16/2014 8:30 AM INTERNATIONAL TRAVEL CONSULTANT Temperature - - Respiratory Rate 16 04/16/2014 8:30 AM INTERNATIONAL TRAVEL CONSULTANT Oxygen Saturation 97% 04/16/2014 8:30 AM INTERNATIONAL TRAVEL CONSULTANT Inhaled Oxygen Concentration - - Weight 113.4 kg (250 lb) 04/16/2014 7:18 AM INTERNATIONAL TRAVEL CONSULTANT Height 175.3 cm (5' 9) 04/16/2014 7:18 AM INTERNATIONAL TRAVEL CONSULTANT Body Mass Index 36.92 04/16/2014 7:18 AM INTERNATIONAL TRAVEL CONSULTANT documented in this encounter Medications at Time of Discharge Medication Sig Dispensed Refills Start Date End Date aspirin EC 81 MG enteric Take 1 tablet by 100 tablet 3 01/08 coated mouth daily (every tabletIndications: 24 hours). STU BANSAL Apr 16, 2014 7:16 AM Held asa times one week in prep for colonoscopy ANDREW MELENDEZ Jun 11, 2014 12:54 PM taking magnesium 250 MG Take 250 mg by mouth 0 4 daily (every 24 hours). Multiple Take 1 tablet by 0 12/25/2013 Vitamins-Minerals mouth daily (every (MULTIVITAMIN ADULT OR) 24 hours). atorvastatin (AKA Take 1 tablet by 90 tablet 3 01/08/2014 0 11/25/2014 LIPITOR) 20 MG mouth daily (every tabletIndications: 24 hours). Hyperlipidemia (HRC) bisacodyl (AKA DULCOLAX) Take 4 tablets at 5 4 tablet 0 05/26/2014 5 MG enteric coated PM the evening prior tabletIndications: to your procedure Special screening for malignant neoplasms, colon oxybutynin (AKA DITROPAN Take 1 tablet by 90 tablet 3 01/2106/03/2014 XL) 10 MG 24 hour mouth daily (every release tablet 24 hours). Polyethylene Glycol 3350 follow directions in 4000 mL 0 1 06/07/2013 05/26/2014 (PEG 3350 brochure. Take 2000 OR)Indications: Special cc the evening screening for malignant before procedure, neoplasms, colon 2000 cc 4-5 hours prior to leaving home the day of your procedure documented as of this encounter Progress Notes Stu Bansal RN - 04/16/2014 8:08 AM CST Patient tolerated the procedure well with no complaints of pain post test. documented in this encounter Procedure Notes Derick Chavez MD - 04/16/2014 7:08 AM CST Procedures signed by Derick Chavez MD at 04/16/14 0708 Author: Derick Chavez MD Service: (none) Author Type: Physician Filed: 04/16/14807 Note Time: 04/16/14807 Status: Signed Electric Motor Repairing Supervisor: Derick Chavez MD (Physician) Patient Name: Raul Dickson Procedure Date: 04/16/2014 7:08 AM Date of : 1950 Admit Type: Outpatient Age: 63 Gender: Male Note Status: Finalized Attending MD: Derick Chavez MD Procedure: Colonoscopy Indications: Colon cancer screening in patient at increased risk: Family history of colon polyps Providers: Derick Chavez MD, Stu Bansal RN Referring MD: Po Coats MD Medicines: Midazolam 1 mg IV, Fentanyl 50 micrograms IV Complications: No immediate complications. Estimated blood loss: Minimal. Procedure: After I obtained informed consent, the scope was passed under direct vision. Throughout the procedure, the patient's blood pressure, pulse, and oxygen saturations were monitored continuously. The [id number] was introduced through the anus and advanced to the cecum, identified by appendiceal orifice and ileocecal valve. The colonoscopy was performed without difficulty. The patient tolerated the procedure well. The quality of the bowel preparation was good. Findings: The perianal and digital rectal examinations were normal. A sessile polyp was found in the mid transverse colon. The polyp was 4 mm in size. The polyp was removed with a cold biopsy forceps. Resection and retrieval were complete. Estimated blood loss was minimal. A few sessile polyps were found in the rectum. The polyps were 2 to 3 mm in size. These polyps were removed with a cold biopsy forceps. Resection and retrieval were complete. Estimated blood loss was minimal. Multiple small-mouthed diverticula were found from sigmoid to ascending colon. Impression: - One 4 mm polyp in the mid transverse colon. Resected and retrieved. - A few 2 to 3 mm polyps in the rectum. Resected and retrieved. - Diverticulosis from sigmoid to ascending colon. Recommendation: - Await pathology results. - Repeat colonoscopy in 5 years for surveillance. - Call your siblings and tell them they need to start every 5 year colonoscopies when they turn 40. - High fiber diet indefinitely. Procedure Code(s): --- Professional --- 03852, Colonoscopy, flexible, proximal to splenic flexure; with biopsy, single or multiple Diagnosis Code(s): --- Professional --- V76.51, Special screening for malignant neoplasms of colon V18.51, Family history of colonic polyps 569.0, Anal and rectal polyp 211.3, Benign neoplasm of colon 562.10, Diverticulosis of colon (without mention of hemorrhage) CPT copyright 2013 [employer]. All rights reserved. The codes documented in this report are preliminary and upon technical services manager review may be revised to meet current compliance requirements. Derick Chavez MD 04/16/2014 8:08 AM This document has been electronically signed. Number of Addenda: 0 Note Initiated On: 04/16/2014 7:08 AM Endoscopy Report RNATIONAL TRAVEL CONSULTANT documented in this encounter Miscellaneous Notes Medication History - Oscar Colón MD - 04/16/2014 11:59 PM CST INPATIENT MEDS Encounter Date: 04/16/14 fentanyl (SUBLIMAZE) injection 25-100 mcg Start Date:04/16/14, End Date:04/17/14, Frequency:PRN Taken Dose Action User Route Site Recorded Comment Reason 04/16/14 0808 50 mcg Given Stu Bansal RN Intravenous - 04/16/14807 - - midazolam (VERSED) injection 0.5-2 mg Start Date:04/16/14, End Date:04/17/14, Frequency:PRN Taken Dose Action User Route Site Recorded Comment Reason 04/16/14 0808 1 mg Given Stu Bansal RN Intravenous - 04/16/14807 - - ondansetron (ZOFRAN) injection 4 mg Start Date:04/16/14, End Date:04/17/14, Frequency:ONCE PRN *No Administrations Recorded 0.9% sodium chloride latex free syringe 10 mL Start Date:04/16/14, End Date:04/17/14, Frequency:PRN Taken Dose Action User Route Site Recorded Comment Reason 04/16/14 0808 10 mL Given Stu Bansal RN Intravenous - 04/16/14807 - - midazolam (VERSED) 2 mg/2 mL (1 mg/mL) injection Start Date:04/16/14, End Date:-, Frequency:- *No Administrations Recorded fentanyl (SUBLIMAZE) 100 mcg/2 mL (50 mcg/mL) injection Start Date:04/16/14, End Date:-, Frequency:- *No Administrations Recorded 0.9% sodium chloride latex free syringe Start Date:04/16/14, End Date:-, Frequency:- *No Administrations Recorded RNATIONAL TRAVEL CONSULTANT documented in this encounter Plan of Treatment Not on filedocumented as of this encounter Procedures Procedure Name Priority Date/Time Associated Comments Diagnosis ENDOSCOPY OBTAINED Routine 04/16/2014 8:10 AM Res ults for this ANATOMICAL PATH INTERNATIONAL TRAVEL CONSULTANT procedure ar e in the results section. ENDOSCOPY, COLON, Routine 04/16/2014 7:08 AM Annual physical R esults for this SCREENING/DIAGNOSTIC INTERNATIONAL TRAVEL CONSULTANT exam procedu re are in the results section. SURGICAL PATH, PARK Routine 04/16/2014 6:00 AM Re sults for this NICOLLET INTERNATIONAL TRAVEL CONSULTANT procedure are i n the results section. documented in this encounter Results ENDOSCOPY OBTAINED ANATOMICAL PATH (04/16/2014 8:10 AM INTERNATIONAL TRAVEL CONSULTANT) P athologist Signature Endo Tis See Path HP CONVERSION Specimen (Source) Anatomical Collection Method Collection Time Re ceived Time Location / / Volume Laterality 04/16/2014 8:10 AM INTERNATIONAL TRAVEL CONSULTANT Derick Chavez MD LAB_1 Performing Organization Address City/State/ZIP Code Phon e Number HP CONVERSION Endoscopy, colon, diagnostic (04/16/2014 7:08 AM INTERNATIONAL TRAVEL CONSULTANT) Specimen (Source) Anatomical Collection Method Collection Time Re ceived Time Location / / Volume Laterality 04/16/2014 7:08 AM INTERNATIONAL TRAVEL CONSULTANT Narrative PN PROVATION - 04/16/2014 7:08 AM INTERNATIONAL TRAVEL CONSULTANT Patient Name: Raul Dickson Procedure Date: 04/16/2014 7:08 AM Date of : 1950 Admit Type: Outpatient Age: 63 Gender: Male Note Status: Finalized Attending MD: Derick Chavez MD Procedure: ? Colonoscopy Indications: ? Colon cancer sc reening in patient at ? increased risk: Family history of ? colon marce yps Providers: ? Derick Chavez MD, Stu Bansal RN Referring MD: ?Po puri MD Medicines: ? Midazolam 1 mg IV, Fentanyl 50 ? microgram s IV Complications: ? No immediate com plications. Estimated ? blood los s: Minimal. Procedure: ? After I obtain ed informed consent, ? the scope was passed under direct ? vision. T hroughout the procedure, the ? patient's blood pressure, pulse, and ? oxygen sa turations were monitored ? continuou sly. The [id number] was ? introduce d through the anus and ? advanced to the cecum, identified by ? appendice al orifice and ileocecal ? valve. Th e colonoscopy was performed ? without d ifficulty. The patient ? tolerated the procedure well. The ? quality o f the bowel preparation was ? good. Findings: ? The perianal and digital rectal e xaminations were ? normal. ? A sessile polyp was found in the mid transverse ? colon. The polyp was 4 mm in size . The polyp was ? removed with a cold biopsy forcep s. Resection and ? retrieval were complete. Estimate d blood loss was ? minimal. ? A few sessile polyps were found i n the rectum. The ? polyps were 2 to 3 mm in size. Th peewee polyps were ? removed with a cold biopsy forcep s. Resection and ? retrieval were complete. Estimate d blood loss was ? minimal. ? Multiple small-mouthed diverticul a were found from ? sigmoid to ascending colon. Impression: ?- One 4 mm marce yp in the mid ? transvers e colon. Resected and ? retrieved . ? - A few 2 to 3 mm polyps in the ? rectum. R esected and retrieved. ? - Diverti culosis from sigmoid to ? ascending colon. Recommendation: ?- Await patholog y results. ? - Repeat colonoscopy in 5 years for ? surveilla nce. ? - Call yo ur siblings and tell them ? they need to start every 5 year ? colonosco pies when they turn 40. ? - High fi arie diet indefinitely. Procedure Code(s): ?? --- Professional - -- ? 72937, Co lonoscopy, flexible, ? proximal to splenic flexure; with ? biopsy, s cora or multiple Diagnosis Code(s): ?? --- Professional - -- ? V76.51, S pecial screening for ? malignant neoplasms of colon ? V18.51, F amily history of colonic ? polyps ? 569.0, An al and rectal polyp ? 211.3, Be nign neoplasm of colon ? 562.10, D iverticulosis of colon ? (without mention of hemorrhage) CPT copyright 2013 [employer]. All rights reserved. The codes documented in this report are preliminary and upon technical services manager review may be revised to meet current compliance requirements. Derick Chavez MD 04/16/2014 8:08 AM This document has been electronically si gned. Number of Addenda: 0 Note Initiated On: 04/16/2014 7:08 AM ? Endoscopy Report Po Coats MD PN GI PROCEDURE ORDERABLES Performing Organization Address City/State/ZIP Code Phon e Number PN [facility]OVATION Pathology Report (04/16/2014 6:00 AM INTERNATIONAL TRAVEL CONSULTANT) [place] gist Method Time Signature Path: ?FINAL SURGICAL PATHOLOGY REP ORT HP CONVERSION Pathology #: [id number] ? Date Obtained: 04/16/2014 ?Date Received: 04/16/2014 DIAGNOSIS: A) Mid-transverse colon, polypectomy: ?- Tubular adenoma. B) Rectum, polypectomies: ?- Fragments of hyperplastic polyps. ?AMANDA MUKHERJEE MD ? (electronic signatur e) ? 04/19/2014 ??09:3 6 CLINICAL NOTES: Screening ORGAN/TISSUE SITE: Mid transverse colon polyp/Rectal polyps GROSS DESCRIPTION: A) The specimen is received in formalin designated mid correa sverse ?polyp, and consists of a 0.4 cm in greatest dimension smith soft ?tissue fragment. The specimen is filtered and entirely submitted in ?cassette OE-15-10 A. B) The specimen is received in formalin designated rectal p olyps, and ?consists of multiple smith soft tissue fragments averagi ng 0.3 cm in ?greatest dimension. The specimen is filtered and entir travis submitted ?in cassette OE-15-10 B. ?DAG MICROSCOPIC DESCRIPTION: A-B)Microscopic examination performed. CPT Codes: ?29862 x 2 ? End of Report Specimen Anatomical Collection Method Collection Time Receive d Time (Source) Location / / Volume Laterality COLON STRUCTURE / 04/16/2014 6:00 AM 05/2014 6:00 Unknown INTERNATIONAL TRAVEL CONSULTANT AM INTERNATIONAL TRAVEL CONSULTANT COLON STRUCTURE / 04/16/2014 6:00 AM 05/2014 6:00 Unknown INTERNATIONAL TRAVEL CONSULTANT AM INTERNATIONAL TRAVEL CONSULTANT Derick Chavez MD LAB_1 Performing Organization Address City/State/ZIP Code Phon e Number HP CONVERSION documented in this encounter Visit Diagnoses Diagnosis Annual physical exam Routine general medical examination at a health care facility documented in this encounter Care Teams Senior Android Software Engineer Relationship Specialty Start Date End Date Po Coats MD PCP - General 08/07/12 [address] [place] [address] documented as of this encounter
--- OUTSIDE RECORDS SUMMARY | 2022-01-20 08:15 | XMS_ITS | Encounter Summary ---
:1950 Author Organization [facility] Address [address] [address] Care Team Providers Name Role Phone Po Coats MD Primary Care Provider Reason for Visit Reason Comments Follow-up Encounter Details Date Type Department Care Team Description 01/08/2014 Office Visit [place] [facility] Po Coats, Hy perlipidemia (Primary Dx); Medicine Abnormal [facility] [address] [address] [place] [address] [place], [place] [phone] [address] Social History Tobacco Use Types Packs/Day Years Used Date Smoking Tobacco: Never Assessed Sex Assigned at Date Recorded Not on file documented as of this encounter Last Filed Vital Signs Vital Sign Reading Time Taken Comments Blood Pressure 132/78 01/08/2014 1:08 PM CDT Pulse 88 01/08/2014 1:08 PM CDT Temperature - - Respiratory Rate - - Oxygen Saturation - - Inhaled Oxygen Concentration - - Weight 116.1 kg (256 lb) 01/08/2014 1:08 PM CDT Height - - Body Mass Index 39.5 12/25/2013 9:13 AM CDT documented in this encounter Progress Notes Po Coats MD - 01/08/2014 1:36 PM CDT Progress Notes signed by Po Coats MD at 01/13/14 1287 Author: Po Coats MD Service: (none) Author Type: Physician Filed: 01/13/14 1759 Note Time: 01/09/14817 Status: Signed Chicken Cleaner: Po Coats MD (Physician) NAME: NICOLETTE DICKSON MR#: [id number] CSN: [id number] AUTHENTICATING CLINICIAN: Po Coats MD CONFIRM #: [id number] LOC: 506 CLINIC PROGRESS NOTE DATE OF VISIT: 01/08/2014 : 1950 SUBJECTIVE: Mr. Dickson is a 63-year-old male who presents to clinic at my request for followup of hyperlipidemia. Patient was recently in for a physical and a cholesterol was checked which showed a total of 223, HDL 58 and LDL 142. He has no known history of heart disease. At his physical, his blood pressure was m ildly elevated but today he looks much better 132/78. Glucose was normal. PAST MEDICAL HISTORY: Reviewed and updated in EMR. MEDICATIONS: Reviewed and updated in EMR. ALLERGIES: Reviewed and updated in EMR. SOCIAL HISTORY: Patient is a nonsmoker. REVIEW OF SYSTEMS: The patient feels well and denies any acute concerns today such as headaches, dizziness, chest pain,shortness of breath, abdominal pain, nausea, vomiting, diarrhea. EXAMINATION: VITAL SIGNS: Please see EMR. GENERAL: He is alert, oriented, and in no apparent distress. ASSESSMENT/PLAN: Hyperlipidemia. Patient is educated on new guidelines regarding cholesterol management. His 10 year risk is above 7.5% threshold and therefore cholesterol management is recommended. We went through theunderstanding high cholesterol pamphlet together in detail as well. He will try to work on lifestylemanagement and is also agreeable to starting Lipitor. We will start him at 20 mg daily, and recheck his cholesterol and liver panel in 6 weeks. Patient is educated on medication including hopeful benefits, possible side effects and followup blood work. Again, we will recheck a cholesterol with liver panel in 6 weeks to reassess the cholesterol. Call with any questions or concerns. Counseling time directly with the patient was 15 minutes. MTK:TENZIN C: CONFIRM #: [id number] documented in this encounter Plan of Treatment Not on filedocumented as of this encounter Visit Diagnoses Diagnosis Hyperlipidemia (HRC) - Primary Other and unspecified hyperlipidemia Abnormal TSH Other abnormal clinical finding documented in this encounter Care Teams Ecology Teacher Relationship Specialty Start Date End Date Po Coats MD PCP - General 08/07/12 [address] [place] [address] documented as of this encounter
--- OUTSIDE RECORDS SUMMARY | 2022-01-20 08:15 | XMS_ITS | Encounter Summary ---
:1950 Author Organization [facility] Address [address], [place] [address] Care Team Providers Name Role Phone Po Coats MD Primary Care Provider Encounter Details Date Type Department Care Team Description 06/28/2014 Imaging [facility] Knee pain [address] [place], [place] [address] Social History Tobacco Use Types Packs/Day Years Used Date Smoking Tobacco: Never Assessed Sex Assigned at Date Recorded Not on file documented as of this encounter Plan of Treatment Not on filedocumented as of this encounter Procedures Procedure Name Priority Date/Time Associated Comments Diagnosis XR KNEE LT 1-2 VIEWS Routine 06/28/2014 10:01 AM Knee pain Results for this COMPARISON CDT procedure are i n the results section. XR KNEE RT 3 VIEWS Routine 06/28/2014 10:01 AM Knee pain Re sults for this CDT procedure are i n the results section. documented in this encounter Results XR Knee Lt 1-2 Views Comparison (06/28/2014 10:01 AM CDT) Anatomical Region Laterality Modality Lower Extremity, Knee Other Specimen (Source) Anatomical Location Collection Method / Collectio n Time Received Time / Laterality Volume Narrative 06/28/2014 8:44 PM CDT Three views of the right knee. Indication: Pain. Findings: No definitive fracture. He has mild patellofemoral compartment joint space narrowing. Two views of the left knee. Indication: Pain, comparison. Findings: Mild patellofemoral compartmen t joint space narrowing. Procedure Note Todd Holloway MD - 10/02/2015Formatt ing of this note might be different from the original. Three views of the right knee. Indication: Pain. Findings: No definitive fracture. He has mild patellofemoral compartment joint space narrowing. Two views of the left knee. Indication: Pain, comparison. Findings: Mild patellofemoral compartmen t joint space narrowing. Todd CARBAJAL XR Knee Rt 3 Views (06/28/2014 10:01 AM CDT) Anatomical Region Laterality Modality Lower Extremity, Knee Other Specimen (Source) Anatomical Location Collection Method / Collectio n Time Received Time / Laterality Volume Narrative 06/28/2014 8:44 PM CDT Three views of the right knee. Indication: Pain. Findings: No definitive fracture. He has mild patellofemoral compartment joint space narrowing. Two views of the left knee. Indication: Pain, comparison. Findings: Mild patellofemoral compartmen t joint space narrowing. Procedure Note Todd Holloway MD - 10/02/2015Formatt ing of this note might be different from the original. Three views of the right knee. Indication: Pain. Findings: No definitive fracture. He has mild patellofemoral compartment joint space narrowing. Two views of the left knee. Indication: Pain, comparison. Findings: Mild patellofemoral compartmen t joint space narrowing. Todd KIM GD documented in this encounter Visit Diagnoses Diagnosis Knee pain Pain in joint, lower leg documented in this encounter Care Teams Automotive Tire Technician Relationship Specialty Start Date End Date Po Coats MD PCP - General 08/07/12 [address] [place] [address] documented as of this encounter
--- OUTSIDE RECORDS SUMMARY | 2022-01-20 08:15 | XMS_ITS | Encounter Summary ---
:1950 Author Organization [employer] Address [address], [place] [address] Care Team Providers Name Role Phone Po Coats MD Primary Care Provider Reason for Visit Reason Comments Refill Encounter Details Date Type Department Care Team Description 12/25/2013 Refill [facility] Stephanie Son [facility] [id number] [facility] [address] [place] [address] [place], [place] [phone] (Wo rk) Social History Tobacco Use Types Packs/Day Years Used Date Smoking Tobacco: Never Assessed Sex Assigned at Date Recorded Not on file documented as of this encounter Nursing Notes Stephanie Son MD - 12/25/2013 4:40 PM CDT From: Nicolette Rice To: Stephanie Son MD Sent: 12/25/2013 2:32 PM CDT Subject: Medication Renewal Request Original authorizing provider: MD Nicolette Velasco would like a refill of the following medications: oxybutynin (DITROPAN-XL) 10 mg 24 hr tablet [Stephanie Son MD] Preferred pharmacy: [place], [place] - [address] [facility] Comment: documented in this encounter Miscellaneous Notes Refill (Converted) - Mychart, Generic Provider - 12/28/2013 1:11 PM CDT RE: Medication Renewal Request From User: STEPHANIE SON, Do you still need this medication? If so, I would like to have you come back in for a follow up visit. I will give you a prescription to get you to your appt if you still need the medication. Stephanie Aguilar MD ----- Message ----- From: NICOLETTE RICE Sent: 12/25/2013 2:32 PM CDT To: Stephanie Son MD Subject: Medication Renewal Request Original authorizing provider: MD Nicolette Velasco would like a refill of the following medications: oxybutynin (DITROPAN-XL) 10 mg 24 hr tablet [Stephanie Son MD] Preferred pharmacy: [place] [id number] [address] Comment: R ECONOMICS PROFESSOR Refill (Converted) - Mychart, Generic Provider - 12/25/2013 4:40 PM CDT RE: Medication Renewal Request From User: STEPHANIE SON, I refilled your prescription for 1 month, but I cannot do more than that because I have not seen you in over a year. Please call [phone] to make a follow up appt. Stephanie Aguilar MD ----- Message ----- From: NICOLETTE RICE Sent: 12/25/2013 2:32 PM CDT To: Stephanie Son MD Subject: Medication Renewal Request Original authorizing provider: MD Nicolette Velasco would like a refill of the following medications: oxybutynin (DITROPAN-XL) 10 mg 24 hr tablet [Stephanie Son MD] Preferred pharmacy: [place] [id number] [facility] Comment: R ECONOMICS PROFESSOR documented in this encounter Plan of Treatment Not on filedocumented as of this encounter Visit Diagnoses Not on filedocumented in this encounter Care Teams Credit Rating Checker Relationship Specialty Start Date End Date Po Coats MD PCP - General 08/07/12 [address] [place] [address] documented as of this encounter
--- OUTSIDE RECORDS SUMMARY | 2022-01-20 08:15 | XMS_ITS | Encounter Summary ---
:1950 Author Organization [employer] Address [address] [place] [address] Care Team Providers Name Role Phone Po Coats MD Primary Care Provider Reason for Visit Reason Comments SLEEP APNEA Follow-up Encounter Details Date Type Department Care Team Description 06/23/2014 Office Visit [facility] Shelby Johnson, Complex sleep apnea [address] GLEN MCDANIEL syndrome (Primary Dx) [place] [address] [address] [facility] [phone] [place], [place] [id number] (Wo rk) Social History Tobacco Use Types Packs/Day Years Used Date Smoking Tobacco: Never Assessed Sex Assigned at Date Recorded Not on file documented as of this encounter Last Filed Vital Signs Vital Sign Reading Time Taken Comments Blood Pressure 142/80 06/23/2014 10:52 AM CDT Pulse 69 06/23/2014 10:52 AM CDT Temperature - - Respiratory Rate - - Oxygen Saturation 95% 06/23/2014 10:52 AM CDT Inhaled Oxygen Concentration - - Weight 118.8 kg (262 lb) 06/23/2014 10:52 AM CDT Height - - Body Mass Index 39.84 05/26/2014 10:44 AM CURB SETTER documented in this encounter Progress Notes Shelby Johnson, GLEN MCDANIEL - 06/23/2014 11:32 AM CDT PULMONARY/SLEEP CLINIC FOLLOW-UP CHIEF COMPLAINT: Obstructive Sleep Apnea HPI: Raul Dickson is a 63 y.o. male with a history of obstructive sleep apnea. he is currently treated with ASV and returns for routine follow-up. he states that he has been doing better with compliance (this was our main issue at the last visit) after we changed his mask. He did have pneumonia sincehe was seen so he has not had much time on the ASV between his last visit.He is motivated to increase compliance. PHYSICAL EXAM: BP 142/80 Pulse 69 Wt 262 lb (118.842 kg) SpO2 95% Data: Time frame: 30 days auto-ASV EPAP min 5, EPAP mzx 15, PS min 0, PS max 20, Max pressure 25. Rate auto. Leak: improved Average AHI 6.5 events/hr IMPRESSION AND PLAN: 1. Obstructive Sleep Apnea. Patient is currently doing better on his auto-asv. He did have pneumoniaso we have not been able to get much time in since we changed his mask. He is motivated and feels like the machine is comfortbale. He is taking off the machine after he uses the restroom. We have discussed options to increase his compliance which he is very willing to do. Will follow up in 6-8 weeks with a download.. All of the patient's questions were answered. [...] apnea documented in this encounter Care Teams Channel Marketing Coordinator Relationship Specialty Start Date End Date Po Coats MD PCP - General 08/07/12 [address] [place] [id number] documented as of this encounter
--- OUTSIDE RECORDS SUMMARY | 2022-01-20 08:15 | XMS_ITS | Encounter Summary ---
:1950 Author Organization [employer] Address [address], [place] [address] Care Team Providers Name Role Phone Po Coats MD Primary Care Provider Reason for Visit Reason Comments Follow-up Encounter Details Date Type Department Care Team Description 07/23/2014 Office Visit [facility] Po Coats, Ac bronson bronchitis, unspecified organism (Primary Dx); Medicine Throat soreness; [address] [place] acute serous otitis media, [place] [address] [place], [place] [phone] (Wo rk) Social History Tobacco Use Types Packs/Day Years Used Date Smoking Tobacco: Never Assessed Sex Assigned at Date Recorded Not on file documented as of this encounter Last Filed Vital Signs Vital Sign Reading Time Taken Comments Blood Pressure 136/78 07/23/2014 2:50 PM CDT Pulse 88 07/23/2014 2:50 PM CDT Temperature 36.7 ??C (98.1 ??F) 07/23/2014 2:50 PM CDT Respiratory Rate - - Oxygen Saturation - - Inhaled Oxygen Concentration - - Weight 120.7 kg (266 lb) 07/23/2014 2:50 PM CDT Height - - Body Mass Index 40.45 05/26/2014 10:44 AM CONCRETE RUBBER documented in this encounter Progress Notes Po Coats MD - 07/23/2014 3:37 PM CDT Progress Notes signed by Po Coats MD at 08/02/141715 Author: Po Coats MD Service: (none) Author Type: Physician Filed: 08/02/141715 Note Time: 07/24/14 1445 Status: Signed Senior Windows Administrator: Po Coats MD (Physician) NAME: NICOLETTE RICE MR#: [id number] CSN: [id number] AUTHENTICATING CLINICIAN: Po Coats MD CONFIRM #: [id number] LOC: 506 CLINIC PROGRESS NOTE DATE OF VISIT: 07/23/2014 : 1950 SUBJECTIVE: Mr. Rice is a 63-year-old male who presents to clinic for ongoing URI symptoms. Patient seen in Urgent Care about 10 days ago with bilateral otitis media, conjunctivitis and general URI symptoms. He was treated with Keflex. The patient states today is his last day of Keflex and he does not really feel a whole lot better. The patient states that both of his ears are bothering him, right worse than left. He does have a little bit of a cough, but it is nonproductive. He denies any fevers or hemoptysis, chest pain or wheezing. The patient states he still has a little bit of mattering in his eyes in the morning, but during the day they seem to be clearing up nicely. No problems with the Keflex. The patient states his throat has been hurting a little bit more than usual too. No neck pain or stiffnessor chest pain. PAST MEDICAL HISTORY: Reviewed and updated in EMR. MEDICATION: Reviewed and updated in EMR. ALLERGIES: Reviewed and updated in EMR. SOCIAL HISTORY: Patient is a nonsmoker. REVIEW OF SYSTEMS: Patient feels well otherwise and denies any headaches, visual disturbance, chest pain, palpitations,shortness of breath, abdominal pain, nausea, vomiting, diarrhea, fevers, fatigue, swelling. EXAMINATION: VITAL SIGNS: Please see EMR. GENERAL: He is alert, oriented, and in no apparent distress. HEENT: Right ear has a clear fluid level and the left is clear. Oral cavity shows some mild erythema in the throat. His eyes are clear. NECK: Supple without adenopathy, JVD or thyroid abnormality. CARDIOVASCULAR: Regular rate and rhythm without murmurs, rubs, or gallops. LUNGS: Clear throughout. EXTREMITIES: Reveal good pulses with no edema. ASSESSMENT/PLAN: Ongoing URI symptoms with bronchitis and right-sided serous otitis media. Patient is educated that since his symptoms are slightly better we can wait. He would prefer to try a different antibiotic to see if this helps. It is unclear if it will or not given the mildness of his symptoms. Again, his right ear has some fluid but it is clear. I went ahead and gave him a Z-Dimitrios. Patient instructed to continue closely monitoring himself and return to clinic with any new, worsening or persistent symptoms after 10 days. MTK:MEDQ C: CONFIRM #: [id number] documented in this encounter Plan of Treatment Not on filedocumented as of this encounter Procedures Procedure Name Priority Date/Time Associated Diagnosis Comme nts GROUP A STREP Routine 07/23/2014 3:10 PM Throat soreness Resul ts for this ANTIGEN SCREEN CDT procedure are in the results section. BETA STREP FOLLOWUP Routine 07/23/2014 2:42 PM Re sults for this CDT procedure are i n the results section. documented in this encounter Results RAPID STREP GROUP A WAIVED (07/23/2014 3:10 PM CDT) Analysis Performed At Patho logist Time Signature Strep A Negative Negative HP CONVERSION Antigen Strep A Source Throat: HP CONVERSION Specimen Anatomical Collection Method Collection Time Receive d Time (Source) Location / / Volume Laterality 07/23/2014 3:10 PM 5 4:28 CDT PM CDT Narrative HP CONVERSION - 07/23/2014 4:31 PM CDT Performed at [facility], [address] [place] [address] Po Coats MD LAB_1 Performing Organization Address City/State/ZIP Code Phon e Number HP CONVERSION BETA STREP FOLLOWUP (07/23/2014 2:42 PM CDT) [facility] Signature Source Throat HP CONVERSION Site HP CONVERSION Strep Screen No beta HP CONVERSION hemolytic Strep Group A isolated. Specimen (Source) Anatomical Collection Method Collection Time Re ceived Time Location / / Volume Laterality Throat: 07/23/2014 2:42 PM CDT Narrative HP CONVERSION - 07/24/2014 9:51 AM CDT Performed at [facility] , [address] [place] [address], ?? CLIA Number [id number] Po Coats MD LAB_1 Performing Organization Address City/State/ZIP Code Phon e Number HP CONVERSION documented in this encounter Visit Diagnoses Diagnosis Acute bronchitis, unspecified organism - Primary Throat soreness Acute pharyngitis Right acute serous otitis media, recurre nce not specified documented in this encounter Care Teams Care Transport Nurse Relationship Specialty Start Date End Date Po Coats MD PCP - General 08/07/[address] [place] [address] documented as of this encounter
--- OUTSIDE RECORDS SUMMARY | 2022-01-20 08:15 | XMS_ITS | Encounter Summary ---
:1950 Author Organization [employer] Address [address] [address] Care Team Providers Name Role Phone oP Coats MD Primary Care Provider Reason for Visit Reason Comments Appt. Scheduled Encounter Details Date Type Department Care Team Description 06/11/2014 Telephone [facility] Carlo Coats MD Appt. Scheduled Medicine [address] [address] [place] [address] [place] [address] [phone] Social History Tobacco Use Types Packs/Day Years Used Date Smoking Tobacco: Never Assessed Sex Assigned at Date Recorded Not on file documented as of this encounter Nursing Notes Maegan Banegas LPN - 06/11/2014 4:16 PM CST Phoned patient, he is good with appointment as scheduled. OR ELECTRICAL ENGINEER Maegan Banegas LPN - 06/11/2014 4:15 PM CST Phoned patient to let him know that Dr. Coats spoke with Pulmonary and they advised that he do a Sniff Test to evaluate for diaphragm paralysis. He is scheduled for / at 8:30 am in [facility] if that works for him. Left message for patient to return our call for this information. OR ELECTRICAL ENGINEER documented in this encounter Plan of Treatment Not on filedocumented as of this encounter Visit Diagnoses Not on filedocumented in this encounter Care Teams Applications Processor Relationship Specialty Start Date End Date Po Coats MD PCP - General 08/07/12 [address] [address] [place] [id number] documented as of this encounter
--- OUTSIDE RECORDS SUMMARY | 2022-01-20 08:15 | XMS_ITS | Encounter Summary ---
:1950 Author Organization [employer] Address [address], [place] [address] Care Team Providers Name Role Phone Po Coats MD Primary Care Provider Reason for Visit Reason Comments RESULTS, TEST Encounter Details Date Type Department Care Team Description 06/16/2014 Telephone [facility] Carlo Coats MD RESULTS, TEST Medicine [address] [facility] [address] [place] [address] [place] [address] [phone] Social History Tobacco Use Types Packs/Day Years Used Date Smoking Tobacco: Never Assessed Sex Assigned at Date Recorded Not on file documented as of this encounter Nursing Notes Maegan Banegas LPN - 06/16/2014 9:12 AM CST Phoned patient and relayed results and recommendations per Dr. Coats. He has no further questions at this time. 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 This is benign and needs no further eval or treatment. documented in this encounter Plan of Treatment Not on filedocumented as of this encounter Visit Diagnoses Not on filedocumented in this encounter Care Teams Receiving Teller Relationship Specialty Start Date End Date Po Coats MD PCP - General 08/07/12 [address] [place] [address] documented as of this encounter
--- OUTSIDE RECORDS SUMMARY | 2022-01-20 08:15 | XMS_ITS | Encounter Summary ---
:1950 Author Organization [employer] Address [address], [place] [address] Care Team Providers Name Role Phone Po Coats MD Primary Care Provider Reason for Visit Reason Comments EAR,PLUGGED Encounter Details Date Type Department Care Team Description 09/10/2014 Hospital Encounter [facility] Kirk Dawson S inus congestion; Care MD Kourtney Allergic rhinitis, unspecified allergic rhinitis type; [address] Recurrent acu te otitis media of left ear, unspecified otitis media type; [address] Acute sinusitis, recurrence not specifie d, [place] [address] [phone] Social History Tobacco Use Types Packs/Day Years Used Date Smoking Tobacco: Never Assessed Sex Assigned at Date Recorded Not on file documented as of this encounter Last Filed Vital Signs Vital Sign Reading Time Taken Comments Blood Pressure 157/88 09/10/2014 4:24 PM CDT Pulse 57 09/10/2014 4:24 PM CDT Temperature 36.1 ??C (97 ??F) 09/10/2014 4:24 PM CDT Respiratory Rate 18 09/10/2014 4:24 PM CDT Oxygen Saturation 93% 09/10/2014 4:24 PM CDT Inhaled Oxygen Concentration - - [...] 12/25/2013 mouth daily (every 24 hours). Multiple Take 1 tablet by 0 12/25/2013 Vitamins-Minerals mouth daily (every (MULTIVITAMIN ADULT OR) 24 hours). amoxicillin-clavulanate Take 1 tablet by 28 tablet 0 201409/24/2014 (aka AUGMENTIN) tablet mouth 2 times daily for 14 days. Try to take 12 hours apart with food. atorvastatin (AKA Take 1 tablet by 90 tablet 3 01/08/2014 0 11/25/2014 LIPITOR) 20 MG mouth daily (every tabletIndications: 24 hours). Hyperlipidemia (HRC) fluticasone (aka FLONASE) Place 2 sprays into 16 g 0 0 09/10/2014 10/10/2014 50 MCG/ACT nasal spray each nostril daily (every 24 hours) for 30 days. Dose is for each nostril. Indications: ALLERGIC RHINITIS mirabegron (AKA Take 1 tablet by 90 tablet 3 08/26/201407/2014 MYRBETRIQ) 25 MG 24 hour mouth daily (every release tablet 24 hours). oxybutynin (AKA DITROPAN Take 1 tablet by 30 tablet 11 08/2611/25/2014 XL) 10 MG 24 hour release mouth daily (every tablet 24 hours). documented as of this encounter ED Notes Kirk Dawson MD - 09/10/2014 6:51 PM CDT ED Provider Notes signed by Kirk Dawson MD at 09/27/142025 Author: Kirk Dawson MD Service: (none) Author Type: Physician Filed: 09/27/142025 Note Time: 09/11/14528 Status: Signed Component Assembler Supervisor: Kirk Dawson MD (Physician) NAME: NICOLETTE RICE MR#: [id number] CSN: [id number] AUTHENTICATING CLINICIAN: Kirk Dawson MD CONFIRM #: [id number] LOC: 520 URGENT CARE PROGRESS NOTE DATE OF VISIT: 09/10/2014 : 1950 SUBJECTIVE: The patient is a 64-year-old male here feeling that his ears are full. I actually reviewed a couple of chart notes and I had seen him back on the first of July, and we had given him Keflex and eye drops because of otitis media, upper respiratory infection and conjunctivitis. He got better with his ears, but his sinuses continue to bother him and cough. They had given him a Z-Dimitrios and he said he got about 65% better with everything, including the sinuses, but he has been off antibiotics for some time. The left ear was completely blocked this morning and he still feels sinus pressure. 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 He has no past history of definite allergies. He has had to use probiotics in the past and does have them athome. He tried Claritin just 1 day and it helped, but it kept him up at night so I wonder if it was Claritin-D. He has had some sinus infections in the past that have taken a while to clear. He is not currently coughing and denies fever. He is not short of breath. He is not coughing. REVIEW OF SYSTEMS: The rest of the systems review is negative. ALLERGIES: None. MEDICATIONS: As noted in Epic. SOCIAL HISTORY: He is retired and does not smoke. OBJECTIVE: O2 sat 93% in triage, but 96% in the room. Respirations 18, temp 96.9. BP up a bit and he will have his doctor recheck that. He is alert. LUNGS: Clear. HEART: Sounds normal. Homans sign is negative. HEENT: He does have early left otitis media. Sinuses congested. Nasal mucosa suggests he may have allergic rhinitis. Sinuses are slightly tender to palpation, worse when tilting forward. The throat looks okay. We did suggest doing a water sinus x-ray to rule out any chronic changes, and I believe that it is clear of those changes and the radiologist agrees. ASSESSMENT: 1. Sinus congestion. 2. I believe some elements of allergic rhinitis. 3. Recurrent left otitis media. 4. I suspect sinusitis as well. PLAN: We are going to go ahead and try Augmentin for 14 days with his probiotics. He is also going to use Flonase spray and Mucinex. I recommend getting plain Claritin, Shonda or Zyrtec. He may also inhale steam to help break up the sinus mucus. If he is better then he can remove the Flonase or the Claritin one at a time to see what he may need to stay with. If he is not cleared up or has recurrences thenhe is going to follow up with ENT for further workup and management. He understands and agrees to the above and the above followups. WDL:MEDQ C: CONFIRM #: [id number] documented in this encounter Miscellaneous Notes Medication History - Oscar Colón MD - 09/10/2014 5:44 PM CDT INPATIENT MEDS Encounter Date: 09/10/14 amoxicillin-clavulanate (AUGMENTIN) 875-125 mg per tablet Start Date:09/10/14, End Date:09/24/14, Frequency:2 TIMES DAILY *No Administrations Recorded fluticasone (FLONASE) 50 mcg/actuation nasal spray Start Date:09/10/14, End Date:10/10/14, Frequency:DAILY *No Administrations Recorded documented in this encounter Plan of Treatment Not on filedocumented as of this encounter Procedures Procedure Name Priority Date/Time Associated Diagnosis Comme nts XR SINUSES 1-2 Routine 09/10/2014 5:30 PM Sinus congestion Res ults for this VIEWS CDT procedure are i n the results section. documented in this encounter Results XR Sinuses 1-2 Views (09/10/2014 5:30 PM CDT) Anatomical Region Laterality Modality Head Other Specimen (Source) Anatomical Location Collection Method / Collectio n Time Received Time / Laterality Volume Narrative 09/10/2014 5:41 PM CDT COMPARISON: ??None. FINDINGS: ??No fracture or other osseous abnormality of the facial bones is identified. ??The paranasal sinuses appear clear with no significant mucosal thickening or air-fluid levels. Procedure Note Aniceto Ruff MD - 10/02/2015Forma tting of this note might be different from the original. COMPARISON: None. FINDINGS: No fracture or other osseous a bnormality of the facial bones is identified. The paranasal sinuses appear clear with no significant mucosal thickening or air-fluid levels. Kirk Dawson MD RAD GD documented in this encounter Visit Diagnoses Diagnosis Sinus congestion Other diseases of nasal cavity and sinus es Allergic rhinitis, unspecified allergic rhinitis type Recurrent acute otitis media of left ear , unspecified otitis media type Acute sinusitis, recurrence not specifie d, unspecified location Triage Assessment Note - Lesly Eric RN - 09/10/2014 4:24 PM CDT pt c/o L ear fullness x1 month. documented in this encounter Care Teams Coin Purse Framer Relationship Specialty Start Date End Date Po Coats MD PCP - General 08/07/12 [address] [address] [place] [id number] documented as of this encounter
--- OUTSIDE RECORDS SUMMARY | 2022-01-20 08:15 | XMS_ITS | Encounter Summary ---
:1950 Author Organization [employer] Address [address] [place] [address] Care Team Providers Name Role Phone Po Coats MD Primary Care Provider Reason for Visit Reason Comments SLEEP APNEA Encounter Details Date Type Department Care Team Description 09/01/2014 Office Visit [facility] Noelle Agarwal MD Complex sleep apnea [id number] syndrome (Primary Dx) [place] [address] [address] [place] [address] (Wo rk) Social History Tobacco Use Types Packs/Day Years Used Date Smoking Tobacco: Never Assessed Sex Assigned at Date Recorded Not on file documented as of this encounter Last Filed Vital Signs Vital Sign Reading Time Taken Comments Blood Pressure 148/80 09/01/2014 11:08 AM CDT Pulse 61 09/01/2014 11:08 AM CDT Temperature - - Respiratory Rate - - Oxygen Saturation 96% 09/01/2014 11:08 AM CDT Inhaled Oxygen Concentration - - Weight 122.9 kg (271 lb) 09/01/2014 11:08 AM CDT Height - - Body Mass Index 41.21 05/26/2014 10:44 AM 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 Apnea Subjective: Raul Dickson is a 64 y.o. male seen for follow up of severe complex sleep apnea for which he is on an ASV device. He continues to struggle with compliance due to mask leak. He falls asleep quickly with the mask on but wakes up when he turns over as his mask then starts leaking significantly. Outpatient Prescriptions Prior to Visit Medication Sig [...] by mouth daily (every 24 hours). ??? [DISCONTINUED] mirabegron (MYRBETRIQ) 25 mg tablet Take 1 tablet by mouth daily (every 24 hours). ??? multivitamin (THERAGRAN) tablet Take 1 tablet by mouth daily (every 24 hours). ??? oxybutynin (DITROPAN-XL) 10 mg 24 hr tablet Take 1 tablet by mouth daily (every 24 hours). No facility-administered medications prior to visit. Physical exam: BP 148/80 Pulse 61 Wt 271 lb (122.925 kg) SpO2 96% GEN: NAD Clinical Data: ASV download reviewed. Poor compliance Used 50/65 days Average 1 hr 47 min/night on days used. AHi 6.[address] minute ventilation 7.4 LPM; Ave RR 13.3 bpm. ASSESSMENT/PLAN: 1. Complex sleep apnea, severe. He is still struggling with ASV compliance due to mask leak which wakes him up at night. He is still sleepy as he is unable to use it more than 1-2 hours per night. He will have his mask refitted today then follow up with REGISTRY NP in 6-8 weeks. If he is still having difficulty tolerating it at that time, consider trial of low dose zolpidem to help with tolerance. 2. Mild right hemidiaphragm dysfunction Based on recent SNIFF test. If he develops worsening dyspnea, consider full PFTs with lung volumes. All of his questions were answered. He states understanding and agreement with my assessment and plan as outlined above. Total time spent: 15 minutes. More than half spent in face to face counseling/coordination of care with the patient. Noelle Agarwal MD documented in this encounter Plan of Treatment Not on filedocumented as of this encounter Visit Diagnoses Diagnosis Complex sleep apnea syndrome - Primary Unspecified sleep apnea documented in this encounter Care Teams Paper Reclaiming Machine Operator Relationship Specialty Start Date End Date Po Coats MD PCP - General 08/07/[address] [place] [address] documented as of this encounter
--- OUTSIDE RECORDS SUMMARY | 2022-01-20 08:15 | XMS_ITS | Encounter Summary ---
:1950 Author Organization [employer] Address [address] [address] Care Team Providers Name Role Phone Po Coats MD Primary Care Provider Encounter Details Date Type Department Care Team Description 02/08/2014 [facility] [address] [place] [address] Social History Tobacco Use Types Packs/Day Years Used Date Smoking Tobacco: Never Assessed Sex Assigned at Date Recorded Not on file documented as of this encounter Medications at Time of Discharge Medication Sig Dispensed Refills Start Date End Date aspirin EC 81 MG enteric Take 1 tablet by 100 tablet 3 01/08 coated tabletIndications: mouth daily (every ROBASSE, STU E Fri Apr 24 hours). 2014 7:16 AM Held asa [...] mouth daily (every Hyperlipidemia (HRC) 24 hours). oxybutynin (AKA DITROPAN Take 1 tablet by 90 tablet 3 10/09 /2014 06/03/2014 XL) 10 MG 24 hour release mouth daily (every tablet 24 hours). documented as of this encounter Progress Notes Noelle Agarwal MD - 03/02/2014 1:01 PM CST Progress Notes signed by Noelle Agarwal MD at 03/12/14 1408 Author: Noelle Agarwal MD Service: (none) Author Type: Physician Filed: 03/12/14 1408 Note Time: 03/02/142004 Status: Signed Pharmacy Scheduler: Noelle Agarwal MD (Physician) NAME: NICOLETTE RICE MR#: [id number] CSN: [id number] AUTHENTICATING CLINICIAN: Noelle Agarwal MD CONFIRM #: [id number] LOC: 234 SLEEP STUDY REPORT DATE OF STUDY: 02/08/2014 : 1950 STUDY PERFORMED: Split night polysomnogram. INDICATION: To evaluate for obstructive sleep apnea in this 63-year-old male with a history of snoring and daytime fatigue. DESCRIPTION: Total recording time was 478 minutes, total sleep time 256 minutes, for a sleep efficiency of 54%. Sleep latency 7 minutes, REM latency 211 minutes. Sleep architecture showed an absence of N3 sleep jasmine severe reduction in REM sleep to 6%. No cardiac arrhythmias or periodic limb movements were seen. The baseline portion of the study was performed without CPAP. Total recording time 225 minutes, total sleep time 148 minutes. He exhibited severe obstruction with an apnea-hypopnea index of 160 events per hour with oxygen desaturation to 80%. Total RDI was 107. Mild central apneas were noted associated with sleep state transition. CPAP therapy was applied and titrated from 4 to 7 cm water pressure. This resulted in severe centralapneas and ongoing obstruction. He was thus transitioned to bilevel positive airway pressure at 13/9cm water pressure. This resulted in even more frequent central apneas. IMPRESSION: Severe complex sleep apnea. AHI 107, RDI 106. Effective therapy not determined due to the increase of central apneas with positive airway pressure. PLAN: The patient will follow in the [facility]. Recommend trial of auto ASV. LMB:MEDQ C: CONFIRM #: [id number] K TRAVEL RESERVATIONS Terrei Hand - 02/08/2014 11:59 PM CDTEncounter addended by: Terrie Hand on: 03/24/2014 1:18 PM
Documentation filed: Visit Diagnoses, Charges VN Stuart Clark - 02/08/2014 11:59 PM CDT 7.0 minute sleep latency. Delayed and reduced REM. Stage N3 was not attained. 54% sleep efficiency. Moderate to loud snoring was noted. Frequent obstructive apneas and moderate hypopneas were present while lateral and supine. Mixed and central apneas also noted. The lowest desaturation was 79%. CPAP was applied and titrated to 9cm H2O with fair patient tolerance. Central apneas increased; therefore, BILEVEL 13/ with a back up rate of 10 bpm was utilized. Central apneas actually increased on BILEVEL. An effective CPAP/BILEVEL was not attained. The mask used during the study was a Mirage Fx. The study will be reviewed before PAP set up. The patient has a follow up appointment on 03/31/2014. documented in this encounter Plan of Treatment Not on filedocumented as of this encounter Visit Diagnoses Diagnosis Obstructive sleep apnea (adult) (pediatr ic) - Primary Fatigue Other malaise and fatigue Primary central sleep apnea documented in this encounter Care Teams Impregnator Operator Relationship Specialty Start Date End Date Po Coats MD PCP - General 08/07/12 [address] [place] [address] documented as of this encounter
--- OUTSIDE RECORDS SUMMARY | 2022-01-20 08:15 | XMS_ITS | Encounter Summary ---
:1950 Author Organization [employer] Address [address] [place] [address] Care Team Providers Name Role Phone Po Coats MD Primary Care Provider Reason for Visit Reason Comments Knee Pain or Injury Encounter Details Date Type Department Care Team Description 06/28/2014 Office Visit [facility] Todd Holloway, Knee pa in (Primary Urgent Care MD Dx) [address] [facility] [address] [place] [address] [place], [place] [address] [place], [place] [phone] (Wo rk) Social History Tobacco Use Types Packs/Day Years Used Date Smoking Tobacco: Never Assessed Sex Assigned at Date Recorded Not on file documented as of this encounter Last Filed Vital Signs Vital Sign Reading Time Taken Comments Blood Pressure - - Pulse - - Temperature 36.6 ??C (97.9 ??F) 06/28/2014 9:43 AM CDT Respiratory Rate - - Oxygen Saturation - - Inhaled Oxygen Concentration - - Weight 113.4 kg (250 lb) 06/28/2014 9:43 AM CDT Height - - Body Mass Index 38.01 05/26/2014 10:44 AM BAKER SECOND documented in this encounter Patient Instructions Patient InstructionsKristina Harden CMA - 06/28/2014 1:[address] Todd Holloway MD Sports & Orthopaedic Medicine [facility] Sap Basis Consultant: Josephine Loges Please call Eve for all administrative questions at [phone] Please fax all paperwork correspondence to [phone] Acute [facility] Nurse Line: [phone] Please contact Acute [facility] Clinic Nurse line for all requests and questions. Medication Requests: Prescriptions are not filled on Weekends or on Weekdays after 3:00PM For all medication refills: Request a refill using MyChart or contact your Pharmacy MRI Scheduling: To schedule an MRI at [facility] please call [phone] Follow up as needed documented in this encounter Progress Notes Todd Holloway MD - 06/28/2014 2:59 PM CDT NAME: NICOLETTE RICE MR#: [id number] CSN: [id number] AUTHENTICATING CLINICIAN: Todd Holloway MD CONFIRM #: [id number] LOC: 711 CLINIC ADDENDUM DATE OF VISIT: 06/28/2014 : 1950 Please see Epic for full MRI report. ASSESSMENT: Knee chondromalacia. PLAN: Recommended knee osteoarthritis treatment plan. He verbalized understanding. He wants to try a knee sleeve at this point. Follow up if he has an acute change, worsening symptoms, or wants to proceed with other management. CWM:SUELLEN C: R:06/28/14 15:13 CONFIRM#:[id number] Todd Holloway MD - 06/28/2014 12:44 PM CDT Progress Notes signed by Todd Holloway MD at 06/29/14823 Author: Todd Holloway MD Service: (none) Author Type: Physician Filed: 06/29/14823 Note Time: 06/28/14 1316 Status: Signed Warp Starter: Todd Holloway MD (Physician) NAME: NICOLETTE RICE MR#: [id number] CSN: [id number] AUTHENTICATING CLINICIAN: Todd Holloway MD CONFIRM #: [id number] LOC: 711 CLINIC PROGRESS NOTE DATE OF VISIT: 06/28/2014 : 1950 CHIEF COMPLAINT: Knee pain. HISTORY OF PRESENT ILLNESS: This 63-year-old male presents for evaluation of knee pain that developed about one month ago when he slipped on some ice. He thinks he landed on his hip and twisted his right knee. He has pain in the medial aspect. It hurts when he is driving or twisting his knee. REVIEW OF SYSTEMS: No fever, rash, numbness or tingling. PAST MEDICAL HISTORY: Negative for diabetes. PAST SURGERY HISTORY: Significant for right shoulder rotator cuff repair. SOCIAL HISTORY: He is retired. PHYSICAL EXAM: Temperature is 97.8. Skin normal. Capillary refill normal. Neurologic normal. He is tender palpationalong the medial joint line. Nontender along the patellar retinaculum and lateral joint line. Extensor mechanism is intact. He has a positive Enzo. Negative Ara. Negative posterior drawer. No instability or pain with varus or valgus loading of his knee. IMAGING: Three views of the right knee were obtained and independently reviewed. Indication: Pain. Findings: No definitive fracture. He has mild patellofemoral compartment joint space narrowing. Two views of the left knee. Indication: Pain, comparison. Findings: Mild patellofemoral compartment joint space narrowing. ASSESSMENT: Right knee pain, consider a medial meniscal tear. PLAN: Will proceed with an MRI and have him follow up afterwards to discuss the results and management. CWM:LORRIE C: R:06/28/14 12:53 CONFIRM#:[id number] documented in this encounter Plan of Treatment Not on filedocumented as of this encounter Visit Diagnoses Diagnosis Knee pain - Primary Pain in joint, lower leg documented in this encounter Care Teams Nursing Informatics Clinical Analyst Relationship Specialty Start Date End Date Po Coats MD PCP - General 08/07/12 [address] [place] [address] documented as of this encounter
--- OUTSIDE RECORDS SUMMARY | 2022-01-20 08:15 | XMS_ITS | Encounter Summary ---
:1950 Author Organization [facility] Address [address], [place] [address] Care Team Providers Name Role Phone Po Coats MD Primary Care Provider Encounter Details Date Type Department Care Team Description 10/01/2014 Lab Visit [facility] Right hand pain [address] [place] [address] Social History Tobacco Use Types Packs/Day Years Used Date Smoking Tobacco: Never Assessed Sex Assigned at Date Recorded Not on file documented as of this encounter Plan of Treatment Not on filedocumented as of this encounter Procedures Procedure Name Priority Date/Time Associated Comments Diagnosis COMPLETE BLOOD STAT 10/01/2014 1:37 PM Right hand pain Resu lts for this COUNT-W/DIFF CDT procedure are i n the results section. BASIC METABOLIC PANEL STAT 10/01/2014 1:37 PM Right hand pa in Results for this CDT procedure are i n the results section. DIFFERENTIAL STAT 10/01/2014 1:37 PM Results f or this CDT procedure are i n the results section. RHEUMATOID FACTOR, Routine 10/01/2014 1:37 PM Right hand pain Results for this QUANT CDT procedure are i n the results section. LYME ANTIBODY (REFLEX Routine 10/01/2014 1:37 PM Right hand pa in Results for this TO LYME CONFIRMATORY CDT procedu re are in PANEL) the results section. KYARA SCREEN Routine 10/01/2014 1:37 PM Right hand pain Result s for this CDT procedure are i n the results section. URIC ACID STAT 10/01/2014 1:37 PM Right hand pain Result s for this CDT procedure are i n the results section. ESR STAT 10/01/2014 1:37 PM Right hand pain Result s for this CDT procedure are i n the results section. documented in this encounter Results Differential (10/01/2014 1:37 PM CDT) Analysis Performed At Patho logist Time Signature Absolute 5.7 1.8 - 8.0 HP CONVERSION Neutrophils k/cmm Absolute 2.1 1.1 - 4.0 HP CONVERSION Lymphocytes k/cmm Absolute 0.8 0.2 - 0.8 HP CONVERSION Monocytes k/cmm Absolute 0.2 0.0 - 0.5 HP CONVERSION Eosinophils k/cmm Absolute 0.1 0.0 - 0.2 HP CONVERSION Basophils k/cmm Immature 0.3 0.0 - 0.5 HP CONVERSION Granulocytes % Specimen Anatomical Collection Method Collection Time Receive d Time (Source) Location / / Volume Laterality 10/01/2014 1:37 PM 5 1:37 CDT PM CDT Narrative HP CONVERSION - 10/01/2014 1:43 PM CDT Performed at [facility], [place], [address] [place] [address] Mirian Alvarado MD LAB_1 Performing Organization Address [facility] Phon e Number HP CONVERSION ESR (10/01/2014 1:37 PM CDT) [facility] Time Signature Sedimentation Rate 12 0 - 15 HP CONVERSI ON mm/hr Specimen Anatomical Collection Method Collection Time Receive d Time (Source) Location / / Volume Laterality 10/01/2014 1:37 PM 5 1:37 CDT PM CDT Narrative HP CONVERSION - 10/01/2014 2:14 PM CDT Performed at [facility], [place], [address] [place] [address] Mirian Alvarado MD LAB_1 Performing Organization Address [facility] Phon e Number HP CONVERSION Lyme Antibody, and Western Blot(If Needed) (10/01/2014 1:37 PM CDT) athologist Signature Lyme Screen Negative Negative HP CONVERSION Comment: This is screening test. ??If results are equivocal or positive, serum will be sent to [facility] erence lab for western blot confirmatory testing. Specimen Anatomical Collection Method Collection Time Receive d Time (Source) Location / / Volume Laterality 10/01/2014 1:37 PM 5 7:32 CDT PM CDT Narrative HP CONVERSION - 10/04/2014 9:54 AM CDT Performed at [facility], [facility] [place] [address] Mirian Alvarado MD LAB_1 Performing Organization Address City/[facility] Phon e Number HP CONVERSION Uric Acid (10/01/2014 1:37 PM CDT) athologist Signature Uric Acid Serum 7.3 2.5 - 8.5 HP CONVERSION mg/dL Specimen Anatomical Collection Method Collection Time Receive d Time (Source) Location / / Volume Laterality 10/01/2014 1:37 PM 5 1:37 CDT PM CDT Narrative HP CONVERSION - 10/01/2014 4:20 PM CDT Performed at [facility], [place], [address] [place] [address] Mirian Alvarado MD LAB_1 Performing Organization Address City/[facility] Phon e Number HP CONVERSION Rheumatoid Factor, Quant (10/01/2014 1:37 PM CDT) athologist Signature Rheumatoid <4 0 - 14 HP CONVERSION Factor IU/mL Specimen Anatomical Collection Method Collection Time Receive d Time (Source) Location / / Volume Laterality 10/01/2014 1:37 PM 5 7:34 CDT PM CDT Narrative HP CONVERSION - 10/01/2014 8:19 PM CDT Performed at [facility], [facility] [place] [address] Mirian Alvarado MD LAB_1 Performing Organization Address City/[facility] Phon e Number HP CONVERSION KYARA Screen (10/01/2014 1:37 PM CDT) Analysis Performed At Patho logist Time Signature Anti-Nuclear Negative Negative HP CONVERSION Ab Specimen Anatomical Collection Method Collection Time Receive d Time (Source) Location / / Volume Laterality 10/01/2014 1:37 PM 5 7:35 CDT PM CDT Narrative HP CONVERSION - 10/05/2014 11:15 AM CDT Performed at [facility], [address] [place] [address] Mirian Alvarado MD LAB_1 Performing Organization Address City/[facility] Code Phon e Number HP CONVERSION Basic Metabolic Panel (10/01/2014 1:37 PM CDT) athologist Signature Creatinine Serum 1.0 0.4 - 1.3 HP CONVERSION mg/dL Lab Glucose 100 60 - 100 HP CONVERSION mg/dL Bicarbonate 29 23 - 33 HP CONVERSION mmol/L Chloride 106 98 - 110 HP CONVERSION mEq/L Potassium 4.1 3.5 - 5.2 HP CONVERSION mEq/L Sodium 141 137 - 147 HP CONVERSION mEq/L Blood Urea 16 5 - 26 HP CONVERSION Nitrogen mg/dL Calcium 9.9 8.5 - 10.5 HP CONVERSION mg/dL Est GFR >60 >60 [...] Time (Source) Location / / Volume Laterality 10/01/2014 1:37 PM 5 1:37 CDT PM CDT Narrative HP CONVERSION - 10/01/2014 4:20 PM CDT Performed at [facility], [place], [address] [place] [address] Mirian Alvarado MD LAB_1 Performing Organization Address City/[facility] Phon e Number HP CONVERSION Complete Blood Count W/Diff (10/01/2014 1:37 PM CDT) athologist Signature White Blood Cell 9.0 3.8 - 11.0 HP CONVERSIO N Count k/cmm Red Blood Cell 4.96 4.20 - HP CONVERSION Count 5.90 m/cmm Hemoglobin 14.5 13.4 - HP CONVERSION 17.5 g/dL Hematocrit 44.1 39.0 - HP CONVERSION 51.0 % Mean Corpuscular 88.9 80.0 - HP CONVERSION Volume 100.0 fL RDW 13.1 11.0 - HP CONVERSION 15.0 % Platelet Count 200 140 - 450 HP CONVERSION k/cmm Specimen Anatomical Collection Method Collection Time Receive d Time (Source) Location / / Volume Laterality 10/01/2014 1:37 PM 5 1:37 CDT PM CDT Narrative HP CONVERSION - 10/01/2014 1:43 PM CDT Performed at [facility], [place], [address] [place] [address] Mirian Alvarado MD LAB_1 Performing Organization Address City/State/ZIP Code Phon e Number HP CONVERSION documented in this encounter Visit Diagnoses Diagnosis Right hand pain Pain in limb documented in this encounter Care Teams Data Processing Consultant Relationship Specialty Start Date End Date Po Coats MD PCP - General 08/07/[address] [place] [address] [place] [address] documented as of this encounter
--- OUTSIDE RECORDS SUMMARY | 2022-01-20 08:15 | XMS_ITS | Encounter Summary ---
:1950 Author Organization [facility] Address [address] [place] [address] Care Team Providers Name Role Phone Po Coats MD Primary Care Provider Reason for Visit Reason Comments Sleep problems Encounter Details Date Type Department Care Team Description 05/26/2014 Office Visit [facility] Shelby Johnson, Complex sleep apnea [address] [facility] GLEN MCDANIEL syndrome (Primary Dx) [place] [address] [address] [facility] [phone] [place], [place] [id number] (Wo rk) Social History Tobacco Use Types Packs/Day Years Used Date Smoking Tobacco: Never Assessed Sex Assigned at Date Recorded Not on file documented as of this encounter Last Filed Vital Signs Vital Sign Reading Time Taken Comments Blood Pressure 131/82 05/26/2014 10:44 AM ROASTERMAN Pulse 71 05/26/2014 10:44 AM ROASTERMAN Temperature - - Respiratory Rate - - Oxygen Saturation 95% 05/26/2014 10:44 AM ROASTERMAN Inhaled Oxygen Concentration - - Weight 120.2 kg (265 lb) 05/26/2014 10:44 AM ROASTERMAN Height 172.7 cm (5' 8) 05/26/2014 10:44 AM ROASTERMAN Body Mass Index 40.29 05/26/2014 10:44 AM ROASTERMAN documented in this encounter Progress Notes Shelby Johnson, GLEN MCDANIEL - 05/26/2014 12:53 PM CST PULMONARY/SLEEP CLINIC FOLLOW-UP CHIEF COMPLAINT: Obstructive Sleep Apnea HPI: Raul Dickson is a 63 y.o. male with a history of obstructive sleep apnea. PSG : AHI 106, RDI 107 with desaturation to 79%. Effective therapy not determined due to severe central apneas. He was started on auto-ASV EPAP min 5, EPAP mzx 15, PS min 0, PS max 20, Max pressure 25. Rate auto. He presents for follow up with very low compliance. Reports the entire mask is uncomfortable and leaks. He does not think he has slept at all with the machine. PHYSICAL EXAM: BP 131/82 Pulse 71 Ht 5' 8 (1.727 m) Wt 265 lb (120.203 kg) BMI 40.30 kg/m2 SpO2 95% Bilvele Data auto-ASV EPAP min 5, EPAP mzx 15, PS min 0, PS max 20, Max pressure 25. Rate auto. Time frame: 22 days Leak: large leak Average AHI 8.4 events/hr Compliance: 0% Average use 40 min IMPRESSION AND PLAN: 1. Obstructive Sleep Apnea, complex. Poor sleep the night of the study, a lot of central apneas associated with sleep state transition and PAP. He is really not doing well with the AsV. I am suspiciousit will be difficult for him to become acclimated to this- (did not sleep well the night of the study on PAP). He does make comments that he knows many people that cannot use them as well. At this timewe will continue his current settings, but try him on a nasal pillow so he has less head gear. Hopefully this will improve things. We will see him back in 4 weeks. Consider trial of CPAP if mask gets better but still cannot tolerate. Central apneas MAY improve with improved sleep. All of the patient's questions were answered. he states understanding and agreement with my assessment and plan as above. Total time 15 min, more than half spent in face to face counseling and coordination of care. Shelby Johnson TERMAN documented in this encounter Plan of Treatment Not on filedocumented as of this encounter Visit Diagnoses Diagnosis Complex sleep apnea syndrome - Primary Unspecified sleep apnea documented in this encounter Care Teams Rcp Relationship Specialty Start Date End Date Po Coats MD PCP - General 08/07/12 [address] [place] [address] documented as of this encounter
--- OUTSIDE RECORDS SUMMARY | 2022-01-20 08:15 | XMS_ITS | Encounter Summary ---
:1950 Author [facility] Address [address], [place] [address] Care Team Providers Name Role Phone Po Coats MD Primary Care Provider Reason for Visit Reason Comments Annual Exam Encounter Details Date Type Department Care Team Description 12/25/2013 Office Visit [facility] Po Coats, An nual physical exam (Primary Dx); Medicine Fatigue; [address] [address] [facility] Elevated blood pressure reading; [place] [address] [place], [place] Need for diphtheria-tetanus- pertussis (Tdap) vaccine; [phone] Need for influenza vaccination [phone] (Wo rk) Social History Tobacco Use Types Packs/Day Years Used Date Smoking Tobacco: Never Assessed Sex Assigned at Date Recorded Not on file documented as of this encounter Last Filed Vital Signs Vital Sign Reading Time Taken Comments Blood Pressure 152/83 12/25/2013 9:13 AM CDT Pulse 66 12/25/2013 9:13 AM CDT Temperature - - Respiratory Rate - - Oxygen Saturation - - Inhaled Oxygen Concentration - - Weight 116.1 kg (256 lb) 12/25/2013 9:13 AM CDT Height 171.5 cm (5' 7.5) 12/25/2013 9:13 AM CDT Body Mass Index 39.5 12/25/2013 9:13 AM CDT documented in this encounter Patient Instructions Patient InstructionsChris Banegas, QC ANALYST - 12/25/2013 10:05 AM CDT Body mass index is 39.48 kg/(m^2). Patient Followup Plan: Provided patient with Healthy Weight Matters brochure. Thank you for enrolling in [employer]. Please follow the instructions below to securely access your online medical record. [employer] allows you to send messages to your doctor, view your test results, renewyour prescriptions, schedule appointments, and more. How Do I Sign Up? 1. In your Internet browser, go to: [email or web address] 2. Click on the Enter Activation Code link under the New User? section. You will see the New Member Sign Up page. 3. Enter your [employer] Activation Code exactly as it appears below. You will not need to use this code after you???ve completed the sign-up process. If you do not sign up before the expiration date, youmust request a new code. [employer] Activation Code: [email or web address] Expires: 01/24/2014 9:18 AM 4. Enter your Date of (mm/dd/yyyy), Home Phone Number and Zip Code as indicated, then click Next. You will be taken to the next sign-up page 5. Create a [employer] ID. This will be your [employer] login ID and cannot be changed, so think of one that is secure and easy to remember. 6. Create a [employer] password. You can change your password at any time. 7. Enter your Security Question and Answer. This can be used at a later time if you forget your password. Click Next. 8. Enter your e-mail address. You will receive e-mail notification when new information is availablein [employer]. 9. Click Sign In. You can now view your medical record. Additional Information If you have questions, you can call [phone] to talk to our [employer] staff. Remember, [employer] is NOT to be used for urgent needs. For medical emergencies, dial 911. Please call [phone] to schedule your Sleep Study. documented in this encounter Progress Notes Po Coats MD - 12/25/2013 5:49 PM CDT SUBJECTIVE: 63 y.o. male presents for a routine preventive physical exam. Past Medical History Reviewed and updated in EMR. Past Surgical History Procedure Laterality Date ??? Shoulder surgery Current Outpatient Prescriptions Medication Sig Dispense Refill ??? fluticasone (FLONASE) 50 mcg/actuation nasal spray Place 2 sprays into each nostril daily (every24 hours) for 30 days. Dose is for each nostril. Indications: ALLERGIC RHINITIS 16 g 0 ??? Magnesium 250 mg Tab Take 250 mg by mouth daily (every 24 hours). ??? multivitamin (THERAGRAN) tablet Take 1 tablet by mouth daily (every 24 hours). ??? oxybutynin (DITROPAN-XL) 10 mg 24 hr tablet Take 1 tablet by mouth daily (every 24 hours). 30 tablet 0 No current facility-administered medications for this visit. No Known Allergies Family History Problem Relation Age of Onset ??? Cancer Father lung ??? Early Brother ??? Early Brother ??? Retinal Detachment Mother ??? Cataracts Neg Hx ??? Glaucoma Neg Hx ??? Diabetes Neg Hx ??? Macular Degen Neg Hx ??? Strabismus Neg Hx ??? Amblyopia Neg Hx History Social History ??? Marital Status: Spouse [...] a baby aspirin 81mg daily. -Colonoscopy due: ordered. Subjective- Patient is a 63-year-old male who presents to clinic for a physical but also requires followup of elevated blood pressure readings and has concerns about possible sleep apnea. Patient's blood pressure check today was 152/83. He does not get a chance to check some outside of clinic. He has no symptoms related to the elevated blood pressure readings such as headaches or chest pain. Patient's concerned he is sleep apnea. Patient reports non-refreshing sleep and daytime fatigue. Patient states his has noted that he stops breathing while he sleeps. Assessment plan- #1 elevated blood pressure reading-we went to the blood pressure pamphlet today and patient is educated on hypertension. His numbers are borderline. I recommend that he check his blood pressures every other day for the next 2-4 weeks and if they remain above stage I hypertension at 140/90, he was instructed to return to clinic for additional evaluation and to initiate treatment with medication. We talked about healthy lifestyle habits. #2 sleep apnea-patient is a high-risk for sleep apnea. Will check blood work and a sleep study. documented in this encounter Plan of Treatment Not on filedocumented as of this encounter Visit Diagnoses Diagnosis Annual physical exam - Primary Routine general medical examination at a health care facility Fatigue Other malaise and fatigue Elevated blood pressure reading Elevated blood pressure reading without diagnosis of hypertension Need for gdfqwifeat-anoaqye-jtinyreyg (T dap) vaccine Need for prophylactic vaccination with c ombined tvltrgnonj-ylgscef-yzsedlhpj (DTP) vaccine Need for influenza vaccination Need for prophylactic vaccination and in oculation against influenza documented in this encounter Care Teams Hand Mica Plate Layer Relationship Specialty Start Date End Date Po Coats MD PCP - General 08/07/12 [address] [address] [place] [address] documented as of this encounter
--- OUTSIDE RECORDS SUMMARY | 2022-01-20 08:15 | XMS_ITS | Encounter Summary ---
:1950 Author Organization [facility] Address [address], [place] [address] Care Team Providers Name Role Phone Po Coats MD Primary Care Provider Reason for Visit Reason Comments Follow-up Encounter Details Date Type Department Care Team Description 08/26/2014 Office Visit [facility] Stephanie Coulter, Nocturia (Primary Dx) [address] [facility] [place] [address] [place] [address] [place] [address] (Wo rk) Social History Tobacco Use Types Packs/Day Years Used Date Smoking Tobacco: Never Assessed Sex Assigned at Date Recorded Not on file documented as of this encounter Patient Instructions Patient InstructionsStephanie Coulter MD - 08/26/2014 9:16 AM CDT Voiding diary: on the sheet given to you, write down everything that you drink and how much over 24 hours. Also write down each time you urinate and how much you urinate over the same 24 hours. Try to choose a typical day. Bring to your urodynamics appt. documented in this encounter Progress Notes Stephanie Coulter MD - 08/26/2014 1:08 PM CDT Progress Notes signed by Stephanie Coulter MD at 09/06/142030 Author: Stephanie Coulter MD Service: (none) Author Type: Physician Filed: 09/06/142030 Note Time: 08/26/142152 Status: Signed Auto Service Writer: Stephanie Coulter MD (Physician) NAME: NICOLETTE RICE MR#: [id number] CSN: [id number] AUTHENTICATING CLINICIAN: Stephanie Coulter MD CONFIRM #: [id number] LOC: 517 CLINIC PROGRESS NOTE DATE OF VISIT: 08/26/2014 : 1950 CLINICAL DATA: Nicolette is a very pleasant 63-year-old man with a history of benign prostatic hyperplasia and urinary tract infection. He underwent a laser vaporization of the prostate in September 2012. Postoperatively, he developed de michael urgency and frequency and has overall been doing well with oxybutynin. He continued to have nocturia 2 times a night, but if he does not take the oxybutynin, he would go 4 times a night. He has stopped his fluids 3 to 4 hours before going to bed and recently underwent a sleep study. The sleep study showed apnea and he is being treated for that. Currently, the patient states that he has been getting up 3 to 4 times a night and going every 30 to45 minutes, but in small amounts. PVR today is 103. He states his stream is okay. ASSESSMENT: De michael urgency and urge incontinence. PLAN: I think we need to restart the oxybutynin. Consider adding Myrbetriq with the oxybutynin versus getting urodynamics. At this point, I think I would like to try the combination of the Myrbetriq and the oxybutynin together to see if that will improve his symptoms before having him undergo a procedure. The patient is in agreement. He will follow up in 2 months. Total Time: 15 minutes. Counseling Time: 10 minutes. JR:TENZIN C: CONFIRM #: [id number] documented in this encounter Plan of Treatment Not on filedocumented as of this encounter Visit Diagnoses Diagnosis Nocturia - Primary documented in this encounter Care Teams Collections Assistant Relationship Specialty Start Date End Date Po Coats MD PCP - General 08/07/12 [address] [place] [address] documented as of this encounter
--- OUTSIDE RECORDS SUMMARY | 2022-01-20 08:15 | XMS_ITS | Encounter Summary ---
:1950 Author Organization [facility] Address [address] [address] Care Team Providers Name Role Phone Po Coats MD Primary Care Provider Reason for Visit Reason Comments Ear Pain FACIAL PAIN Encounter Details Date Type Department Care Team Description 10/13/2013 Hospital Encounter [facility], Maryamt achian tube Care Dawn [place] dysfunction [address] [place] [address] [place] [address] [phone] Social History Tobacco Use Types Packs/Day Years Used Date Smoking Tobacco: Never Assessed Sex Assigned at Date Recorded Not on file documented as of this encounter Last Filed Vital Signs Vital Sign Reading Time Taken Comments Blood Pressure 158/87 10/13/2013 6:47 PM CDT Pulse 65 10/13/2013 6:47 PM CDT Temperature 36.7 ??C (98.1 ??F) 10/13/2013 6:47 PM CDT Respiratory Rate 12 10/13/2013 6:47 PM CDT Oxygen Saturation - - Inhaled Oxygen Concentration - - Weight - - Height - - Body Mass Index - - documented in this encounter Medications at Time of Discharge Medication Sig Dispensed Refills Start Date End Date amoxicillin (aka AMOXIL) Take 2 capsules by 40 capsule 0 04/201310/23/2013 capsule mouth 2 times daily for 10 days. fluticasone (aka FLONASE) Place 2 sprays 16 g 0 201311/12/2013 50 MCG/ACT nasal spray into each nostril daily (every 24 hours) for 30 days. Dose is for each nostril. Indications: ALLERGIC RHINITIS nitrofurantoin monohydrate Take 1 capsule by 0 12/25/2013 macrocrystal (AKA mouth once. MACROBID) 100 MG capsule oxybutynin (AKA DITROPAN Take 1 tablet by 30 tablet 11 12/0412/25/2013 XL) 10 MG 24 hour release mouth daily (every tablet 24 hours). phenazopyridine (AKA Take 1 tablet by 20 tablet 2 3 12/25/2013 PYRIDIUM) 200 MG tablet mouth 3 times daily as needed (burning with urination). Solifenacin Succinate (AKA Take 1 tablet by 20 tablet 0 12/25/2013 VESICARE) 10 MG tablet mouth daily (every 24 hours). tamsulosin (AKA FLOMAX) Take 0.4 mg by 0 11/21/19 13 12/25/2013 0.4 MG CAPS mouth daily (every 24 hours). documented as of this encounter ED Notes Dawn Davis - 10/13/2013 8:49 PM CDT ED Provider Notes signed by Dawn Davis MD at 10/24/13 1022 Author: Dawn Davis MD Service: (none) Author Type: Physician Filed: 10/24/13 1022 Note Time: 10/14/13 0400 Status: Signed Workplace Relations Adviser: Dawn Davis MD (Physician) NAME: NICOLETTE RICE MR#: [id number] CSN: [id number] AUTHENTICATING CLINICIAN: Dawn Davis MD CONFIRM #: [id number] LOC: 520 URGENT CARE PROGRESS NOTE DATE OF VISIT: 10/13/2013 : 1950 This 63-year-old man presents with left otalgia. He has had congestion and clear rhinorrhea for the past 2 weeks. He has no facial pain, sinus discomfort. Does not think he has seasonal allergies. She has now developed a left otalgia over the past day or 2. No sore throat or fever. PAST MEDICAL HISTORY: Reviewed. MEDICATIONS: Reviewed. ALLERGIES: Reviewed. SOCIAL HISTORY: Reviewed. FAMILY HISTORY: Reviewed. BP 158/87, T 98.1, P 65, R 12. The patient is well-appearing, in no distress. The nasal mucosa edematous bilaterally, a little bit patent. The posterior pharynx clear, pink. No exudate or edema. No cervical adenopathy. Both TMs are opaque. They have a poor light reflex. In the periphery, there appears to be some fluid behind the TM. ASSESSMENT: Left otalgia, eustachian tube dysfunction, congestion; upper respiratory infection versus seasonal allergies. PLAN: Flonase nasal spray, amoxicillin 1 g b.i.d. for 10 days. Recheck worsening or persistence. May consider a trial of antihistamines if symptoms persist. SMS:MEDQ C: CONFIRM #: [id number] documented in this encounter Miscellaneous Notes Medication History - Oscar Colón MD - 10/13/2013 6:58 PM CDT INPATIENT MEDS Encounter Date: 10/13/13 amoxicillin (AMOXIL) 500 mg capsule Start Date:10/13/13, End Date:10/23/13, Frequency:2 TIMES DAILY *No Administrations Recorded fluticasone (FLONASE) 50 mcg/actuation nasal spray Start Date:10/13/13, End Date:11/12/13, Frequency:DAILY *No Administrations Recorded documented in this encounter Plan of Treatment Not on filedocumented as of this encounter Visit Diagnoses Diagnosis Eustachian tube dysfunction Dysfunction of Eustachian tube documented in this encounter Care Teams Manager Online Relationship Specialty Start Date End Date Po Coats MD PCP - General 08/07/12 [address] [place] [place] [address] documented as of this encounter
--- OUTSIDE RECORDS SUMMARY | 2022-01-20 08:15 | XMS_ITS | Encounter Summary ---
:1950 Author Organization [employer] Address [address], [place] [address] Care Team Providers Name Role Phone Po Coats MD Primary Care Provider Reason for Visit Reason Comments HAND PAIN Encounter Details Date Type Department Care Team Description 10/01/2014 Nurse Triage [facility] Carlo Coats MD HAND PAIN Medicine [address] [facility] [address] [place], [place] [address] [place] [address] [phone] Social History Tobacco Use Types Packs/Day Years Used Date Smoking Tobacco: Never Assessed Sex Assigned at Date Recorded Not on file documented as of this encounter Nursing Notes Allyson Orozco RN - 10/01/2014 12:10 PM CDT Protocol: HAND AND WRIST [id number] Affirmative: Patient wants to be seen Disposition of See Within 3 Days In Office suggested. Spoke with pt. Reports having soreness to area between thumb and index finger for last couple of weeks. The area is now swollen since last night. Reports pain with trying to hold items along with pain and unable to close hand. No know injury. Appt scheduled 10/01. Sam Deras - 10/01/2014 12:00 PM CDT Pt has swelling between his thumb and finger and thinks it could be arthritis and would like to be seen by Dr. Coats before 10/25. Please advise. documented in this encounter Plan of Treatment Not on filedocumented as of this encounter Visit Diagnoses Not on filedocumented in this encounter Care Teams Chemical Librarian Relationship Specialty Start Date End Date Po Coats MD PCP - General 08/07/12 [address] [place] [address] documented as of this encounter
--- OUTSIDE RECORDS SUMMARY | 2022-01-20 08:15 | XMS_ITS | Encounter Summary ---
:1950 Author Organization [facility] Address [address] [address] Care Team Providers Name Role Phone Po Coats MD Primary Care Provider Reason for Visit Reason Comments Skin Check Encounter Details Date Type Department Care Team Description 02/05/2014 Office Visit Aury Ceja MD Screening for malignant neoplasm of the skin (Primary Dx); Dermatology [address] [place] [address] Skin tag [address] [place], [place] [address] [place] [address] Social History Tobacco Use Types Packs/Day Years Used Date Smoking Tobacco: Never Assessed Sex Assigned at Date Recorded Not on file documented as of this encounter Progress Notes Aury Cabrera MD - 02/05/2014 1:51 PM CDT Progress Notes signed by Aury Cabrera MD at 02/12/14 1865 Author: Aury Cabrera MD Service: (none) Author Type: Physician Filed: 02/12/14 7510 Note Time: 02/05/141808 Status: Signed Final Finisher: Aury Cabrera MD (Physician) NAME: NICOLETTE RICE MR#: [id number] CSN: [id number] AUTHENTICATING CLINICIAN: Aury Cabrera MD CONFIRM #: [id number] LOC: 427 CLINIC PROGRESS NOTE DATE OF VISIT: 02/05/2014 : 1950 SUBJECTIVE: Nicolette is a 63-year-old male here for followup skin check in light of history of photodamage. He has several skin tags in the groin area which he would like removed as they are itchy and irritated. He denies any other bleeding, tender, burning, pruritic, or otherwise symptomatic lesions. PERSONAL HISTORY: No skin cancer. FAMILY HISTORY: No skin cancer. MEDICATIONS: Reviewed. ALLERGIES: None. OBJECTIVE: Well-appearing, obese male, skin type 2, pleasant and cooperative with exam, alert and oriented. There is evidence of photodamage, primarily over the face, chest, back, shoulders, and upper extremities. There is a gritty papule on erythematous base on the left cheek consistent with actinic keratosis. There is an indurated papule on the occipital scalp consistent with prurigo nodule. There are 3 in flamed, flesh-colored papules on the right inguinal crease and inner thigh consistent with irritatedskin tags. The remainder of the exam is unremarkable. ASSESSMENT/PLAN: A 63-year-old male with: 1. Actinic keratosis on the left cheek. This was treated with liquid nitrogen cryotherapy and post cryotherapy care instructions given. 2. Prurigo nodule. Benign. Reassurance given. 3. Irritated skin tags x3. These were treated with liquid nitrogen cryotherapy x3 freeze-thaw cycles. 4. Photodamage. Photo protection was encouraged, including use of sunscreen and protective clothing. 5. Return to clinic in 1 year for followup. PEK:MEDRichard C: CONFIRM #: [id number] documented in this encounter Plan of Treatment Not on filedocumented as of this encounter Visit Diagnoses Diagnosis Screening for malignant neoplasm of the skin - Primary Skin tag Unspecified hypertrophic and atrophic co ndition of skin documented in this encounter Care Teams Brancher Relationship Specialty Start Date End Date Po Coats MD PCP - General 08/07/12 [address] [place] [address] documented as of this encounter
--- OUTSIDE RECORDS SUMMARY | 2022-01-20 08:15 | XMS_ITS | Encounter Summary ---
:1950 Author [facility] Address [address], [place] [address] Care Team Providers Name Role Phone oP Coats MD Primary Care Provider Reason for Visit Reason Comments Follow-up Encounter Details Date Type Department Care Team Description 01/21/2014 Office Visit [facility] Stephanie Coulter, Nocturia (Primary Dx) [address] [facility] [place] [address] [place] [address] [place] [address] (Wo rk) Social History Tobacco Use Types Packs/Day Years Used Date Smoking Tobacco: Never Assessed Sex Assigned at Date Recorded Not on file documented as of this encounter Progress Notes Stephanie Coulter MD - 01/21/2014 2:11 PM CDT Progress Notes signed by Stephanie Coulter MD at 02/01/142135 Author: Stephanie Coulter MD Service: (none) Author Type: Physician Filed: 02/01/142135 Note Time: 01/21/141935 Status: Signed Power Regulator: Stephanie Coulter MD (Physician) NAME: NICOLETTE RICE MR#: [id number] CSN: [id number] AUTHENTICATING CLINICIAN: Stephanie Coulter MD CONFIRM #: [id number] LOC: 517 CLINIC PROGRESS NOTE DATE OF VISIT: 01/21/2014 : 1950 CLINICAL DATA: Nicolette is a very pleasant, 63-year-old man with a history of benign prostatic hyperplasia and urinary tract infections. The patient underwent a laser vaporization of the prostate in September of 2012. Postoperatively, the patient developed de Odalys urinary urgency and frequency. Overall, the patient has been d oing well on oxybutynin. He notices that he continues to have nocturia 2 times a night. If he does not take the oxybutynin, he goes about 4 times a night. The patient tolerates the medication well. The patient stops his fluids about 3-4 hours before going to bed but still wakes during the night. He does have quite a thick neck and some moderate obesity. He is scheduled to undergo a sleep study atthe end of this month. DISCUSSION: I had a good discussion with the patient. I think it will be interesting to see what the sleep studyshows. If he does not have any apnea, then we can consider trying an additional medication to try tocalm his bladder down at night. If he does have apneic episodes, my thought is that most likely he is probably waking from that and then gets the sensation that he needs to urinate, rather than the need to urinate waking him up. I will call the patient after I see the results of the sleep study, and we can go from there. ASSESSMENT: 1. De Odalys urgency. 2. Nocturia. PLAN: 1. Continue oxybutynin. 2. I will call the patient after a sleep study at the end of this month. Total visit time was 15 minutes, 10 minutes was counseling. JR:TENZIN C: CONFIRM #: [id number] documented in this encounter Plan of Treatment Not on filedocumented as of this encounter Visit Diagnoses Diagnosis Nocturia - Primary documented in this encounter Care Teams Cat Cracker Operator Relationship Specialty Start Date End Date Po Coats MD PCP - General 08/07/12 [address] [place] [address] documented as of this encounter
--- OUTSIDE RECORDS SUMMARY | 2022-01-20 08:15 | XMS_ITS | Encounter Summary ---
:1950 Author Organization [employer] Address [address] [address] Care Team Providers Name Role Phone Po Coats MD Primary Care Provider Reason for Visit Reason Comments Follow-up Encounter Details Date Type Department Care Team Description 06/11/2014 Office Visit [facility] Po Coats, Damir alvarez (Primary Dx); Medicine Elevated hemidiaphragm [address] [place] [address] [place], [place] [phone] Social History Tobacco Use Types Packs/Day Years Used Date Smoking Tobacco: Never Assessed Sex Assigned at Date Recorded Not on file documented as of this encounter Last Filed Vital Signs Vital Sign Reading Time Taken Comments Blood Pressure 138/78 06/11/2014 12:54 PM FAA CERTIFIED POWERPLANT MECHANIC Pulse 80 06/11/2014 12:54 PM FAA CERTIFIED POWERPLANT MECHANIC Temperature 36.4 ??C (97.5 ??F) 06/11/2014 12:54 PM FAA CERTIFIED POWERPLANT MECHANIC Respiratory Rate - - Oxygen Saturation - - Inhaled Oxygen Concentration - - Weight 119.3 kg (263 lb) 06/11/2014 12:54 PM FAA CERTIFIED POWERPLANT MECHANIC Height - - Body Mass Index 39.99 05/26/2014 10:44 AM FAA CERTIFIED POWERPLANT MECHANIC documented in this encounter Progress Notes Po Coats MD - 06/11/2014 1:18 PM CST Progress Notes signed by Po Coats MD at 06/11/141713 Author: Po Coats MD Service: (none) Author Type: Physician Filed: 06/11/141713 Note Time: 06/11/143 Status: Signed Fire Control Mechanic: Po Coats MD (Physician) NAME: NICOLETTE RICE MR#: [id number] CSN: [id number] AUTHENTICATING CLINICIAN: Po Coats MD CONFIRM #: [id number] LOC: 506 CLINIC PROGRESS NOTE DATE OF VISIT: 06/11/2014 : 1950 SUBJECTIVE: Mr. Rice is a 63-year-old male who presents to clinic for pneumonia followup. Patient was seen in urgent care about a week ago with a severe cough. Chest x- ray which showed but it was clear of infiltrates. It did show an elevated right- sided diaphragm. He was treated with Levaquin 500 mg daily. Today in clinic the patient states he feels much better. Patient states his cough is virtually gone.No additional concerns such as fevers, chest pain, shortness of breath, etc. PAST MEDICAL HISTORY: Reviewed and updated in EMR. MEDICATIONS: Reviewed and updated in EMR. ALLERGIES: Reviewed and updated in EMR. SOCIAL HISTORY: Patient is a nonsmoker. REVIEW OF SYSTEMS: Patient feels well and again denies any acute concerns today such as headaches, dizziness, chest pain, shortness of breath, abdominal pain, nausea, vomiting, diarrhea, rashes, fevers, fatigue, swelling. EXAMINATION: VITAL SIGNS: Please see EMR. GENERAL: He is alert, oriented, and in no apparent distress. HEENT: Within normal limits. NECK: Supple. CARDIOVASCULAR: Regular rate and rhythm without murmurs, rubs, gallops. LUNGS: Clear throughout. ABDOMEN: Soft, nontender, nondistended with normal bowel sounds. No organomegaly or palpable masses. EXTREMITIES: Reveal good pulses with no edema. ASSESSMENT/PLAN: Pneumonia followup. Patient symptomatically is markedly improved and almost back to normal. I recommend finishing the antibiotics as prescribed. Call or return to clinic with any recurrence or new concerns. MTK:TENZIN C: CONFIRM #: [id number] CERTIFIED POWERPLANT MECHANIC documented in this encounter Plan of Treatment Not on filedocumented as of this encounter Visit Diagnoses Diagnosis Pneumonia - Primary Pneumonia, organism unspecified Elevated hemidiaphragm Disorders of diaphragm documented in this encounter Care Teams Counter Waiter Relationship Specialty Start Date End Date Po Coats MD PCP - General 08/07/12 [address] [place] [address] documented as of this encounter
--- OUTSIDE RECORDS SUMMARY | 2022-01-20 08:15 | XMS_ITS | Encounter Summary ---
:1950 Author Organization [employer] Address [address], [place] [address] Care Team Providers Name Role Phone Po Coats MD Primary Care Provider Encounter Details Date Type Department Care Team Description 12/25/2013 Lab Visit [facility] Annual physical exam; [address] [place] [address] Social History Tobacco Use Types Packs/Day Years Used Date Smoking Tobacco: Never Assessed Sex Assigned at Date Recorded Not on file documented as of this encounter Plan of Treatment Not on filedocumented as of this encounter Procedures Procedure Name Priority Date/Time Associated Comments Diagnosis TSH AND FREE T4 (FRT4 Routine 12/25/2013 10:23 Fatigue Re sults for this IF TSH ABNORM) AM CDT procedure are in the results section. LIPID PANEL AND Routine 12/25/2013 10:23 Annual physical Resul ts for this DIRECT LDL(IF NEEDED) AM CDT exam proced ure are in the results section. VITAMIN D 25-HYDROXY, Routine 12/25/2013 10:23 Annual physical Results for this TOTAL AM CDT exam procedure are i n the results section. COMPLETE BLOOD Routine 12/25/2013 10:23 Annual physical Result s for this COUNT-W/DIFF AM CDT exam procedure are i n the results section. LIVER PANEL(HEPATIC Routine 12/25/2013 10:23 Annual physical R esults for this FUNCTION PANEL) AM CDT exam procedure ar e in the results section. BASIC METABOLIC PANEL Routine 12/25/2013 10:23 Annual physical Results for this AM CDT exam procedure are i n the results section. PROSTATIC SPECIFIC Routine 12/25/2013 10:23 Annual physical Re sults for this ANTIGEN(SCREEN) AM CDT exam procedure ar e in the results section. DIFFERENTIAL Routine 12/25/2013 10:23 Results for this AM CDT procedure are i n the results section. FREE T4 Routine 12/25/2013 10:23 Results for this AM CDT procedure are i n the results section. documented in this encounter Results Free T4 (12/25/2013 10:23 AM CDT) athologist Signature Thyroxine, Free 1.1 0.8 - 1.8 HP CONVERSION ng/dL Specimen Anatomical Collection Method Collection Time Receive d Time (Source) Location / / Volume Laterality 12/25/2013 10:23 12/25/2013 AM CDT 12:38 PM CDT Po Coats MD LAB_1 Performing Organization Address City/[facility] Code Phon e Number HP CONVERSION Differential (12/25/2013 10:23 AM CDT) athologist Signature Absolute 4.8 1.8 - 8.0 HP CONVERSION Neutrophils Absolute 2.4 1.1 - 4.0 HP CONVERSION Lymphocytes Absolute 0.7 0.2 - 0.8 HP CONVERSION Monocytes Absolute 0.2 0.0 - 0.5 HP CONVERSION Eosinophils Absolute 0.1 0.0 - 0.2 HP CONVERSION Basophils Specimen Anatomical Collection Method Collection Time Receive d Time (Source) Location / / Volume Laterality 12/25/2013 10:23 12/25/2013 AM CDT 10:23 AM CDT Narrative HP CONVERSION - 12/25/2013 10:37 AM CDT Performed at [facility], [address] [place] [address] Po Coats MD LAB_1 Performing Organization Address City/[facility] Code Phon e Number HP CONVERSION (ABNORMAL) TSH AND FREE T4 (FRT4 IF TSH ABNORM) (12/25/2013 10:23 AM CDT) [facility] gist Method Time Signature Thyroid 5.73 (H) 0.20 - HP CONVERSION Stimulating 4.50 Hormone Specimen Anatomical Collection Method Collection Time Receive d Time (Source) Location / / Volume Laterality 12/25/2013 10:23 12/25/2013 AM CDT 12:38 PM CDT Po Coats MD LAB_1 Performing Organization Address City/State/ZIP Code Phon e Number HP CONVERSION Prostatic Specific Antigen (Screen) (12/25/2013 10:23 AM CDT) athologist Signature Prostate 0.9 0.0 - 4.0 HP CONVERSION Specific ng/mL Antigen Specimen Anatomical Collection Method Collection Time Receive d Time (Source) Location / / Volume Laterality 12/25/2013 10:23 12/25/2013 AM CDT 12:38 PM CDT Po Coats MD LAB_1 Performing Organization Address City/[facility] Code Phon e Number HP CONVERSION Vitamin D 25-Hydroxy, Total (12/25/2013 10:23 AM CDT) athologist Signature Vitamin D 25 Oh 29 20 - 80 HP CONVERSION ng/mL Comment: Deficiency = <20 Adequate ??= 20-29 Preferred = 30-50 Uncertain safety = 51-80 High = >80 Specimen Anatomical Collection Method Collection Time Receive d Time (Source) Location / / Volume Laterality 12/25/2013 10:23 12/25/2013 AM CDT 12:40 PM CDT Po Coats MD LAB_1 Performing Organization Address [facility] Code Phon e Number HP CONVERSION (ABNORMAL) Lipid Panel and Direct LDL(If Needed) (12/25/2013 10:23 AM CDT) [facility] gist Method Time Signature Cholesterol 223 (H) 0 - 200 HP CONVERSION mg/dL Triglycerides 113 0 - 149 HP CONVERSION mg/dL HDL Cholesterol 58 >39 mg/dL HP CONVERSION Cholesterol/HDL 3.8 HP CONVERSION Ratio Screen LDL Calculated 142 (H) 19 - 130 HP CONVERSION mg/dL Length Of Fast 10 HP CONVERSION Specimen Anatomical Collection Method Collection Time Receive d Time (Source) Location / / Volume Laterality 12/25/2013 10:23 12/25/2013 AM CDT 10:23 AM CDT Narrative HP CONVERSION - 12/25/2013 3:36 PM CDT Performed at [facility], [address] [place] [address] Po Coats MD LAB_1 Performing Organization Address City/State/ZIP Code Phon e Number HP CONVERSION Liver Panel(Hepatic Function Panel) (12/25/2013 10:23 AM CDT) Patholo gist Method Time Signature Alk Phos 107 25 - 135 HP CONVERSION U/L Bilirubin Total 0.5 0.2 - 1.2 HP CONVERSION mg/dL Bilirubin, Direct <0.2 0.0 - 0.4 HP CONVERSIO N mg/dL Protein Total, Serum 7.9 5.7 - 8.3 HP CONVER DENIZ g/dL Albumin 4.7 3.4 - 5.0 HP CONVERSION g/dL Aspartate 27 0 - 45 HP CONVERSION Aminotransferase U/L Alanine 32 4 - 55 HP CONVERSION Aminotransferase U/L Specimen Anatomical Collection Method Collection Time Receive d Time (Source) Location / / Volume Laterality 12/25/2013 10:23 12/25/2013 AM CDT 10:23 AM CDT Narrative HP CONVERSION - 12/25/2013 3:36 PM CDT Performed at [facility], [address] [place] [address] Po Coats MD LAB_1 Performing Organization Address City/State/ZIP Code Phon e Number HP CONVERSION Basic Metabolic Panel (12/25/2013 10:23 AM CDT) P athologist Signature Creatinine Serum 1.1 0.4 - 1.3 HP CONVERSION mg/dL Lab Glucose 100 60 - 100 HP CONVERSION mg/dL Bicarbonate 30 23 - 33 HP CONVERSION mmol/L Chloride 105 98 - 110 HP CONVERSION Potassium 4.3 3.5 - 5.2 HP CONVERSION Sodium 144 137 - 147 HP CONVERSION Blood Urea 15 5 - 26 HP CONVERSION Nitrogen mg/dL Calcium 9.7 8.5 - 10.5 HP CONVERSION mg/dL Est GFR >60 >60 HP CONVERSION Am Est GFR Non-Afr >60 >60 HP CONVERSION Am Comment: Normal>60, moderate decrease 30 - 59, se carmelina decrease 15 - 29, renal failure <15 mL/min/1.73 m2 NOTE: ??Choose the eGFR result above amilcar ropriate for the race of the patient. Specimen Anatomical Collection Method Collection Time Receive d Time (Source) Location / / Volume Laterality 12/25/2013 10:23 12/25/2013 AM CDT 10:23 AM CDT Narrative HP CONVERSION - 12/25/2013 3:36 PM CDT Performed at [facility], [address] [place] [address] Po Coats MD LAB_1 Performing Organization Address [facility] Phon e Number HP CONVERSION Complete Blood Count W/Diff (12/25/2013 10:23 AM CDT) athologist Signature White Blood Cell 8.2 3.8 - 11.0 HP CONVERSIO N Count Red Blood Cell 5.61 4.20 - HP CONVERSION Count 5.90 Hemoglobin 16.1 13.4 - HP CONVERSION 17.5 g/dL Hematocrit 48.9 39.0 - HP CONVERSION 51.0 % Mean Corpuscular 87.3 80.0 - HP CONVERSION Volume 100.0 fL RDW 13.3 11.0 - HP CONVERSION 15.0 % Platelet Count 241 140 - 450 HP CONVERSION Specimen Anatomical Collection Method Collection Time Receive d Time (Source) Location / / Volume Laterality 12/25/2013 10:23 12/25/2013 AM CDT 10:23 AM CDT Narrative HP CONVERSION - 12/25/2013 10:37 AM CDT Performed at [facility], [address] [place] [address] Po Coats MD LAB_1 Performing Organization Address [facility] Phon e Number HP CONVERSION documented in this encounter Visit Diagnoses Diagnosis Annual physical exam Routine general medical examination at a health care facility Fatigue Other malaise and fatigue documented in this encounter Care Teams Lithographic Press Feeder Relationship Specialty Start Date End Date Po Coats MD PCP - General 08/07/[address] [place] [address] [place] [address] documented as of this encounter
--- OUTSIDE RECORDS SUMMARY | 2022-01-20 08:15 | XMS_ITS | Encounter Summary ---
:1950 Author Organization [employer] Address [address] [place] [address] Care Team Providers Name Role Phone Po Coats MD Primary Care Provider Reason for Visit Reason Comments Follow-up SLEEP APNEA Encounter Details Date Type Department Care Team Description 03/31/2014 Office Visit [facility] Noelle Agarwal MD Complex sleep apnea [address] syndrome (Primary Dx) [place] [address] [address] [place] [address] (Wo rk) Social History Tobacco Use Types Packs/Day Years Used Date Smoking Tobacco: Never Assessed Sex Assigned at Date Recorded Not on file documented as of this encounter Last Filed Vital Signs Vital Sign Reading Time Taken Comments Blood Pressure 149/87 03/31/2014 1:28 PM POLYSOMNOGRAPHIC TECHNOLOGIST Pulse 61 03/31/2014 1:28 PM POLYSOMNOGRAPHIC TECHNOLOGIST Temperature - - Respiratory Rate - - Oxygen Saturation 93% 03/31/2014 1:28 PM POLYSOMNOGRAPHIC TECHNOLOGIST Inhaled Oxygen Concentration - - Weight 118.8 kg (262 lb) 03/31/2014 1:28 PM POLYSOMNOGRAPHIC TECHNOLOGIST Height - - Body Mass Index 40.43 12/25/2013 9:13 AM CDT documented in this encounter Progress Notes Noelle Agarwal MD - 03/31/2014 2:34 PM CST Consult note Follow-up; and Apnea HPI: Raul Dickson is a 63 y.o. male seen in consultation for obstructive sleep apnea. He has a history of loud snoring and daytime fatigue. He is overweight. HE is here to review a recent sleep study. Patient Active Problem List Diagnosis ??? Pain Low Back ??? Hyperlipidemia (ACG) ??? Complex sleep apnea syndrome No past medical history on file. has past surgical history that includes shoulder surgery. Social Hx: retired. . reports that he has never smoked. He has never used smokeless tobacco. He reports that he drinks alcohol. Outpatient Prescriptions Prior to Visit Medication Sig ??? aspirin EC 81 mg EC tablet Take 1 tablet by mouth daily (every 24 hours). ??? atorvastatin (LIPITOR) 20 mg tablet Take [...] hours). No facility-administered medications prior to visit. family history includes Cancer in his father; Early in his brother and brother; Retinal Detachment in his mother. There is no history of Cataracts, Glaucoma, Diabetes, Macular Degen, Strabismus, or Amblyopia. No Known Allergies ROS: no restless legs He is not sleepy driving He will sometimes nap in the late afternoon. Denies observed apneas Wakes 3-4 times per night to urinate. Physical exam: BP 149/87 Pulse 61 Wt 262 lb (118.842 kg) BMI 40.41 kg/m2 SpO2 93% GEN: Pleasant, alert, NAD HEENT: NCAT. Oropharynx: 60% narrowing of the posterior oropharynx. no tonsillar hypertrophy. moderate sized tongue. Neck is supple without lymphadenopathy or masses. PSYCH: Pleasant, bright affect. NEURO: No tremor or dysarthria. Clinical data: sleep questionnaire reviewed. Bedford sleepiness Scale: 8 PHQ-9 questionnaire: 05/22 Sleep study results reviewed and discussed with patient: Severe complex sleep apnea. AHI 106, RDi 107 with desaturation to 79%. Effective therapy not determined due to severe central apneas. Outpatient notes reviewed. ASSESSMENT/PLAN: 1. Severe complex Sleep Apnea. ?? AHI 106, RDI 107 with desaturation to 79%. Effective therapy not determined due to severe centralapneas. ?? Pathophysiology, treatment options, and consequences of untreated obstructive sleep apnea were discussed. ?? These consequences include hypertension, heart failure, CAD and stroke as well as daytime sleepiness with an increased risk for a car crash. ?? Treatment options were discussed, including PAP, dental device, surgery, weight loss. Pros, cons,and likely efficacy reviewed. ?? After discussion, he agrees to a trial of PAP therapy and will be placed on auto-ASV EPAP min 5, EPAP mzx 15, PS min 0, PS max 20, Max pressure 25. Rate auto. ?? He will follow up in 6 weeks with Shelby Johnson in [place] for a download All of his questions were answered. He states understanding and agreement with my assessment and plan as outlined above. Total time spent: 30 minutes. More than half spent in face to face counseling/coordination of care with the patient. Noelle Agarwal MD SOMNOGRAPHIC TECHNOLOGIST documented in this encounter Plan of Treatment Not on filedocumented as of this encounter Visit Diagnoses Diagnosis Complex sleep apnea syndrome - Primary Unspecified sleep apnea documented in this encounter Care Teams Court Officer Relationship Specialty Start Date End Date Po Coats MD PCP - General 08/07/[address] [place] [address] documented as of this encounter
--- OUTSIDE RECORDS SUMMARY | 2022-01-20 08:15 | XMS_ITS | Encounter Summary ---
:1950 Author Organization [employer] Address [address], [place] [address] Care Team Providers Name Role Phone oP Coats MD Primary Care Provider Reason for Visit Reason Comments Follow-up Encounter Details Date Type Department Care Team Description 01/20/2014 Office Visit [facility] Po Coats Di verticulitis (Primary Medicine Dx) [address] [facility] [address] [place] [address] [place], [place] [phone] Social History Tobacco Use Types Packs/Day Years Used Date Smoking Tobacco: Never Assessed Sex Assigned at Date Recorded Not on file documented as of this encounter Last Filed Vital Signs Vital Sign Reading Time Taken Comments Blood Pressure 136/78 01/20/2014 1:03 PM CDT Pulse 80 01/20/2014 1:03 PM CDT Temperature 36.3 ??C (97.3 ??F) 01/20/2014 1:03 PM CDT Respiratory Rate - - Oxygen Saturation - - Inhaled Oxygen Concentration - - Weight 116.1 kg (256 lb) 01/20/2014 1:03 PM CDT Height - - Body Mass Index 39.5 12/25/2013 9:13 AM CDT documented in this encounter Progress Notes Po Coats MD - 01/20/2014 1:38 PM CDT Progress Notes signed by Po Coats MD at 01/22/14 1504 Author: Po Coats MD Service: (none) Author Type: Physician Filed: 01/22/14 5055 Note Time: 01/20/141857 Status: Signed Irrigation System Operator: Po Coats MD (Physician) NAME: NICOLETTE DICKSON MR#: [id number] CSN: [id number] AUTHENTICATING CLINICIAN: Po Coats MD CONFIRM #: [id number] LOC: 506 CLINIC PROGRESS NOTE DATE OF VISIT: 01/20/2014 : 1950 SUBJECTIVE: Mr. Dickson is a 63-year-old male who presents to clinic for ER followup. Patient seen January 09at the [facility] Room for acute onset of right lower quadrant abdominal pain. Hewas evaluated with a CT, which showed acute right-sided ascending diverticulitis. He was treated with Cipro and Flagyl and has completed those courses of antibiotics without problem. Today in clinic, patient states he feels great. All of his pain is gone. His appetite has been normal and his stools are normal. He has had no fevers. No problems with the antibiotics such as rashes ordiarrhea. He has a colonoscopy scheduled in early April, as well. PAST MEDICAL HISTORY: Reviewed and updated in EMR. MEDICATIONS: Reviewed and updated in EMR. ALLERGIES: Reviewed and updated in EMR. SOCIAL HISTORY: Patient is a nonsmoker. REVIEW OF SYSTEMS: Patient feels well and again denies any acute concerns today such as headaches, dizziness, chest pain, shortness of breath, abdominal pain, nausea, vomiting, diarrhea, blood in the stools, dark tarry stools, fevers. EXAMINATION: VITAL SIGNS: Please see EMR. GENERAL: He is alert, oriented, and in no apparent distress. CARDIOVASCULAR: Regular rate and rhythm without murmurs, rubs, gallops. LUNGS: Clear. ABDOMEN: Soft, nontender, nondistended with normal bowel sounds. No organomegaly or palpable masses. EXTREMITIES: Reveal good pulses with no edema. ASSESSMENT AND PLAN: Diverticulitis followup. Patient is doing great. He was educated on diverticulosis and diverticulitis. He is scheduled for colonoscopy in April, and will follow up on that result. MEMO:TENZIN C: CONFIRM #: [id number] documented in this encounter Plan of Treatment Not on filedocumented as of this encounter Visit Diagnoses Diagnosis Diverticulitis - Primary Diverticulitis of colon (without mention of hemorrhage) documented in this encounter Care Teams Napkin Machine Operator Relationship Specialty Start Date End Date Po Coats MD PCP - General 08/07/12 [address] [place] [address] documented as of this encounter
--- OUTSIDE RECORDS SUMMARY | 2022-01-20 08:15 | XMS_ITS | Encounter Summary ---
:1950 Author Organization [employer] Address [address], [place] [address] Care Team Providers Name Role Phone Po Coats MD Primary Care Provider Reason for Visit Reason Comments EDEMA Encounter Details Date Type Department Care Team Description 10/01/2014 Office Visit [place] [facility] Mirian Alvarado, Right hand pain Medicine (Primary Dx) [address] [facility] [address] [place] [address] [facility] [address] [place] [address] Social History Tobacco Use Types Packs/Day Years Used Date Smoking Tobacco: Never Assessed Sex Assigned at Date Recorded Not on file documented as of this encounter Last Filed Vital Signs Vital Sign Reading Time Taken Comments Blood Pressure 145/75 10/01/2014 1:06 PM CDT Pulse 63 10/01/2014 1:06 PM CDT Temperature - - Respiratory Rate - - Oxygen Saturation - - Inhaled Oxygen Concentration - - Weight 122 kg (269 lb) 10/01/2014 1:06 PM CDT Height - - Body Mass Index 40.9 05/26/2014 10:44 AM INSERT CUTTER documented in this encounter Patient Instructions Patient Mirian Aguilar MD - 10/01/2014 2:23 PM CDT we have send Rx for 7 days keflex anbiotics you need to take OTC probiotics daily for one month during and after you taking the antibiotics we also send Rx indocin for inflammation: take with food for 3- 7 days documented in this encounter Progress Notes Mirian Alvarado MD - 10/01/2014 6:28 PM CDT This note was generated using voice activated medical lab assistant software and may contain typographical errors SUBJECTIVE: Raul Dickson64 y.o. pleasant male, came here today for right hand, MTP joints , redness, and the swelling for one day. He worked up this morning, noticed the right 1st MTP joint swelling, redness. Tenderness to bend. He denies some of the symptoms occur before. He has no fever no chills. No shortness breath no palpitation. No nausea no vomiting. he denies any injury. No trauma, he denies an alcohol no smoking. He has no gout history before He is a retired, and he was cleaning his deck yesterday , no any cuts Patient Active Problem List Diagnosis ??? Pain Low Back ??? Hyperlipidemia (ACG) ??? Complex sleep apnea syndrome ??? Adenoma of large intestine Past Surgical History Procedure Laterality Date ??? Shoulder surgery ??? Bladder surgery 2012 Current Outpatient Prescriptions on File Prior to Visit Medication Sig Note Dispense Refill ??? aspirin EC 81 mg EC tablet Take 1 tablet by mouth daily (every 24 hours). 06/11/2014: taking 100 tablet 3 ??? atorvastatin (LIPITOR) 20 mg tablet Take 1 tablet by mouth daily (every 24 hours). 90 tablet 3 ??? fluticasone (FLONASE) 50 mcg/actuation nasal spray Place 2 sprays into each nostril daily (every24 hours) for 30 days. Dose is for each nostril. Indications: ALLERGIC RHINITIS 16 g 0 ??? fluticasone (FLONASE) 50 mcg/actuation nasal spray [...] mouth daily (every 24 hours). 30 tablet 11 No current facility-administered medications on file prior to visit. History Social History ??? Marital Status: Spouse [...] ??? Not on file Social History Narrative No Known Allergies Family History Problem Relation Age of Onset ??? Cancer Father lung ??? Early Brother ??? Early Brother infant ??? Retinal Detachment Mother ??? Cataracts Neg Hx ??? Glaucoma Neg Hx ??? Diabetes Neg Hx ??? Macular Degen Neg Hx ??? Strabismus Neg Hx ??? Amblyopia Neg Hx ROS All of the systems reviewed, unremarkable, except that mentioned in HPI BP 145/75 Pulse 63 Wt 122.018 kg (269 lb) Objective: General Appearance: Alert, cooperative, no distress, appears stated age Head: Normocephalic, without obvious abnormality, atraumatic Eyes: PERRL, conjunctiva/corneas clear, EOM's intact, fundi benign, both eyes Ears: Normal TM's and external ear canals, both ears Nose: Nares normal, septum midline, mucosa normal, no drainage or sinus tenderness Throat: Lips, mucosa, and tongue normal; teeth and gums normal Neck: Supple, symmetrical, trachea midline, no adenopathy; thyroid: no enlargement/tenderness/nodules; no carotid bruit or JVD Back: Symmetric, no curvature, ROM normal, no CVA tenderness Lungs: Clear to auscultation bilaterally, respirations unlabored Chest Wall: No tenderness or deformity Heart: Regular rate and rhythm, S1 and S2 normal, no murmur, rub or gallop Abdomen: Soft, non-tender, bowel sounds active all four quadrants, no masses, no organomegaly Extremities: right 1st MTP joint was red and tender and swelling, no fullrange of 1st index finger Pulses: 2+ and symmetric all extremities Skin: Skin color, texture, turgor normal, no rashes or lesions Lymph nodes: Cervical, supraclavicular, and axillary nodes normal Neurologic: Assessment: Diagnosis (ICD9) and Associated Orders ICD-9-CM ICD-10-CM 1. Right hand pain 729.5 M79.641 Complete Blood Count W/Diff Basic Metabolic Panel Antinuclear Antibody Rheumatoid Factor Uric Acid Lyme Disease Screen (In-House) XR Hand * Right 3+ Views (Standard) Sedimentation Rate cephALEXin (KEFLEX) 500 mg capsule indomethacin (INDOCIN) 50 mg capsule Plan: Cellulitis versus, gouty arthropathy, DJD, Lyme disease, and rheumatoid. will do the workup as below, and treated with antibiotics since that Indocin, and will call him Saturday when the results of the ready. He to be reevaluated at urgent care or ER if symptoms get worse Right hand pain - Complete Blood Count W/Diff; Future - Basic Metabolic Panel; Future - Antinuclear Antibody; Future - Rheumatoid Factor; Future - Uric Acid; Future - Lyme Disease Screen (In-House); Future - XR Hand * Right 3+ Views (Standard); Future - Sedimentation Rate; Future - cephALEXin (KEFLEX) 500 mg capsule; Take 1 capsule by mouth 3 times daily. - indomethacin (INDOCIN) 50 mg capsule; Take 1 capsule by mouth 3 times daily (with meals). Mirian Alvarado MD 6:22 PM 10/01/2014 documented in this encounter Plan of Treatment Not on filedocumented as of this encounter Visit Diagnoses Diagnosis Right hand pain - Primary Pain in limb documented in this encounter Care Teams Hvac Sheet Metal Installer Helper Relationship Specialty Start Date End Date Po Coats MD PCP - General 08/07/12 [address] [place] [address] documented as of this encounter
--- OUTSIDE RECORDS SUMMARY | 2022-01-20 08:15 | XMS_ITS | Encounter Summary ---
:1950 Author [facility] Address [address] [address] Care Team Providers Name Role Phone Po Coats MD Primary Care Provider Encounter Details Date Type Department Care Team Description 03/15/2014 Lab Visit [facility] Hyperlipidemia; [address] [facility] [place] [address] Social History Tobacco Use Types Packs/Day Years Used Date Smoking Tobacco: Never Assessed Sex Assigned at Date Recorded Not on file documented as of this encounter Plan of Treatment Not on filedocumented as of this encounter Procedures Procedure Name Priority Date/Time Associated Diagnosis Comme nts TSH AND FREE T4 Routine 03/15/2014 7:46 AM Abnormal TSH Result s for this (FRT4 IF TSH STRAPPER OPERATOR procedure are i n ABNORM) the results section. LIPID PANEL AND Routine 03/15/2014 7:46 AM Hyperlipidemia Resu lts for this DIRECT LDL(IF STRAPPER OPERATOR procedure are in NEEDED) the results section. LIVER PANEL(HEPATIC Routine 03/15/2014 7:46 AM Hyperlipidemia Results for this FUNCTION PANEL) STRAPPER OPERATOR procedure ar e in the results section. FREE T4 Routine 03/15/2014 7:46 AM Results f or this STRAPPER OPERATOR procedure are i n the results section. documented in this encounter Results Free T4 (03/15/2014 7:46 AM STRAPPER OPERATOR) P athologist Signature Thyroxine, Free 1.0 0.8 - 1.8 HP CONVERSION ng/dL Specimen Anatomical Collection Method Collection Time Receive d Time (Source) Location / / Volume Laterality 03/15/2014 7:46 AM 4 STRAPPER OPERATOR 12:57 PM STRAPPER OPERATOR Po Coats MD LAB_1 Performing Organization Address City/[facility]/ZIP Code Phon e Number HP CONVERSION (ABNORMAL) TSH AND FREE T4 (FRT4 IF TSH ABNORM) (03/15/2014 7:46 AM STRAPPER OPERATOR) [facility] [employer] Method Time Signature Thyroid 5.71 (H) 0.20 - HP CONVERSION Stimulating 4.50 Hormone mIU/L Specimen Anatomical Collection Method Collection Time Receive d Time (Source) Location / / Volume Laterality 03/15/2014 7:46 AM 4 STRAPPER OPERATOR 12:57 PM STRAPPER OPERATOR Po Coats MD LAB_1 Performing Organization Address City/[facility] Code Phon e Number HP CONVERSION Lipid Panel and Direct LDL(If Needed) (03/15/2014 7:46 AM STRAPPER OPERATOR) [facility] [employer] Method Time Signature Cholesterol 150 0 - 200 HP CONVERSION mg/dL Triglycerides 131 0 - 149 HP CONVERSION mg/dL HDL Cholesterol 51 >39 mg/dL HP CONVERSION Cholesterol/HDL 2.9 HP CONVERSION Ratio Screen LDL Calculated 73 19 - 130 HP CONVERSION mg/dL Length Of Fast 10 HP CONVERSION Specimen Anatomical Collection Method Collection Time Receive d Time (Source) Location / / Volume Laterality 03/15/2014 7:46 AM 4 7:46 STRAPPER OPERATOR AM STRAPPER OPERATOR Narrative HP CONVERSION - 03/15/2014 10:05 AM STRAPPER OPERATOR Performed at [facility], [address] [place] [address] Po Coats MD LAB_1 Performing Organization Address City/[facility] Code Phon e Number HP CONVERSION Liver Panel(Hepatic Function Panel) (03/15/2014 7:46 AM STRAPPER OPERATOR) [facility] [employer] Method Time Signature Alk Phos 116 25 - 135 HP CONVERSION U/L Bilirubin Total 0.6 0.2 - 1.2 HP CONVERSION mg/dL Bilirubin, Direct 0.2 0.0 - 0.4 HP CONVERSIO N mg/dL Protein Total, Serum 7.5 5.7 - 8.3 HP CONVER DENIZ g/dL Albumin 4.5 3.4 - 5.0 HP CONVERSION g/dL Aspartate 27 0 - 45 HP CONVERSION Aminotransferase U/L Alanine 33 4 - 55 HP CONVERSION Aminotransferase U/L Specimen Anatomical Collection Method Collection Time Receive d Time (Source) Location / / Volume Laterality 03/15/2014 7:46 AM 4 7:46 STRAPPER OPERATOR AM STRAPPER OPERATOR Narrative HP CONVERSION - 03/15/2014 10:05 AM STRAPPER OPERATOR Performed at [facility], [address] [place] [address] Po Coats MD LAB_1 Performing Organization Address City/State/ZIP Code Phon e Number HP CONVERSION documented in this encounter Visit Diagnoses Diagnosis Hyperlipidemia (HRC) Other and unspecified hyperlipidemia Abnormal TSH Other abnormal clinical finding documented in this encounter Care Teams Manager Private Relationship Specialty Start Date End Date Po Coats MD PCP - General 08/07/[id number] [place] [address] [place] [address] documented as of this encounter
--- OUTSIDE RECORDS SUMMARY | 2022-01-20 08:15 | XMS_ITS | Encounter Summary ---
:1950 Author Organization [facility] Address [address] [place] [address] Care Team Providers Name Role Phone Po Coats MD Primary Care Provider Encounter Details Date Type Department Care Team Description 04/06/2014 Notes/Orders [facility] [address] Varsha Chavez MD Special screening for Gastroenterology [address] malignant neoplasms, [address] [place], [place] colon (Primary Dx) [place] [address] [phone] Social History Tobacco Use Types Packs/Day Years Used Date Smoking Tobacco: Never Assessed Sex Assigned at Date Recorded Not on file documented as of this encounter Plan of Treatment Not on filedocumented as of this encounter Visit Diagnoses Diagnosis Special screening for malignant neoplasm s, colon - Primary documented in this encounter Care Teams Orientation And Mobility Instructor Relationship Specialty Start Date End Date Po Coats MD PCP - General 08/07/12 [address] [place] [address] documented as of this encounter
--- OUTSIDE RECORDS SUMMARY | 2022-01-20 08:16 | XMS_ITS | Encounter Summary ---
:1950 Author Organization [employer] Address [address] [address] Care Team Providers Name Role Phone Po Coats MD Primary Care Provider Reason for Visit Reason Comments Post Hospital Discharge Follow Up Encounter Details Date Type Department Care Team Description 08/15/2012 Office Visit [place] [facility] Po Coats, diculopathy of cervical spine (Primary Dx); Medicine HTN (hypertension) [address] [facility] [address] [place] [address] [place], [place] [phone] [address] Social History Tobacco Use Types Packs/Day Years Used Date Smoking Tobacco: Never Assessed Sex Assigned at Date Recorded Not on file documented as of this encounter Last Filed Vital Signs Vital Sign Reading Time Taken Comments Blood Pressure 130/84 08/15/2012 11:10 AM CDT Pulse 77 08/15/2012 11:10 AM CDT Temperature - - Respiratory Rate - - Oxygen Saturation - - Inhaled Oxygen Concentration - - Weight 116.1 kg (256 lb) 08/15/2012 11:02 AM CDT Height - - Body Mass Index 37.8 08/06/2012 1:09 PM CDT documented in this encounter Progress Notes Po Coats MD - 08/15/2012 12:24 PM CDT Progress Notes signed by Po Coats MD at 08/18/1234 Author: Po Coats MD Service: (none) Author Type: Physician Filed: 08/18/12 0834 Note Time: 08/15/122143 Status: Signed Cushion Maker: Po Coats MD (Physician) NAME: NICOLETTE RICE MR#: [id number] CSN: [id number] AUTHENTICATING CLINICIAN: Po Coats MD CONFIRM #: [id number] LOC: 506 CLINIC PROGRESS NOTE DATE OF VISIT: 08/15/2012 : 1950 SUBJECTIVE: Mr. Rice is a 61-year-old male who presents to the clinic for ER followup. The patient was seen inthe emergency room for left arm radiculopathy symptoms. Acute coronary syndrome was ruled out. ER proceeded with an MRI of his neck, which shows left C4 nerve impingement. Today in clinic, the patient states the symptoms and specifically the pain in his neck and shoulder area have significantly improved. The patient states he had this identical symptom complex several years ago and actually had a home traction unit at that time, which he used at home and completely resolved his right neck radiculopathy symptoms. Currently, the patient states there is a mild ache in theC4 distribution of his neck and posterior left shoulder. The tingling, numbness, and weakness in thearm and hand have completely resolved. He has not really been taking anything for the pain. He also noted that his blood pressure was up during the emergency room evaluation. The patient states he was in a moderate amount of pain at that time, which probably explained that. Nevertheless, theyplaced him on hydrochlorothiazide 12.5 mg 1 capsule daily. Blood pressures are well controlled here today. The patient denies any medication side effects or concerns. PAST MEDICAL HISTORY: Reviewed and updated in EMR. MEDICATIONS: Reviewed and updated in EMR. ALLERGIES: Reviewed and updated in EMR. SOCIAL HISTORY: The patient is a nonsmoker. REVIEW OF SYSTEMS: The patient currently feels well and denies any concerning symptoms such as headaches, blurry vision, loss of vision, dizziness, speech difficulties, confusion, chest pain, shortness of breath, abdominal pain, nausea, vomiting, diarrhea, rashes, fevers, paresthesias, weight loss. EXAMINATION: VITAL SIGNS: Please see EMR. GENERAL: He is alert, oriented, and in no apparent distress. HEENT: Within normal limits. Cranial nerves 2 through 12 are symmetric and intact. NECK: Supple without adenopathy, JVD, or thyroid abnormality. He has full active range of motion of the neck without discomfort. CARDIOVASCULAR: Regular rate and rhythm without murmurs, rubs, or gallops. LUNGS: Clear to auscultation bilaterally. EXTREMITIES: Good pulses with no edema. Left arm examination reveals normal strength and sensation throughout. ASSESSMENT/PLAN: 1. Left C4 radiculopathy. MRI and emergency room course were reviewed with the patient. He has already experienced significant improvement. He is wondering if he can use the home traction unit again, and he was educated that he is clear to try that. Otherwise recommend conservative management, including gentle stretching and ibuprofen as needed. Call or return to clinic if not continuing to rapidly improve. 2. Possible hypertension. The patient is educated that if his blood pressures generally remain [id number]/90, he does not need to continue the hydrochlorothiazide. If his blood pressures remain above guidelines in stage 1 hypertension area, he was recommended to return to clinic for refills and full hypertension workup. DANTEK:TENZIN C: CONFIRM #: [id number] documented in this encounter Plan of Treatment Not on filedocumented as of this encounter Visit Diagnoses Diagnosis Radiculopathy of cervical spine - Primar y Brachial neuritis or radiculitis nos HTN (hypertension) (HRC) Unspecified essential hypertension documented in this encounter Care Teams Key Cutter Relationship Specialty Start Date End Date Po Coats MD PCP - General 08/07/12 [address] [address] [place] [address] documented as of this encounter
--- OUTSIDE RECORDS SUMMARY | 2022-01-20 08:16 | XMS_ITS | Encounter Summary ---
:1950 Author Organization [facility] Address [address] [place] [address] Care Team Providers Name Role Phone Po Coats MD Primary Care Provider Encounter Details Date Type Department Care Team Description 12/01/2012 Lab Visit [facility] Dysuria [address] [place] [address] Social History Tobacco Use Types Packs/Day Years Used Date Smoking Tobacco: Never Assessed Sex Assigned at Date Recorded Not on file documented as of this encounter Plan of Treatment Not on filedocumented as of this encounter Procedures Procedure Name Priority Date/Time Associated Diagnosis Comme nts URINE CULTURE Routine 12/01/2012 2:04 PM Dysuria Results for this CDT procedure are i n the results section. URINE MICROSCOPIC Routine 12/01/2012 9:39 AM Dysuria Resu lts for this CDT procedure are i n the results section. documented in this encounter Results Urine Culture (12/01/2012 2:04 PM CDT) [facility] gist Method Time Signature Source Urine HP CONVERSION Site clean catch HP CONVERSION Urine Culture No growth HP CONVERSION Specimen (Source) Anatomical Collection Method Collection Time Re ceived Time Location / / Volume Laterality Urine:clean catch 12/01/2012 2:04 PM CDT Naya BUCHANAN LAB_1 Performing Organization Address City/State/ZIP Code Phon e Number HP CONVERSION (ABNORMAL) URINE MICROSCOPIC (12/01/2012 9:39 AM CDT) [facility] gist Method Time Signature Urine WBC 50-99 (A) 0 - 4 HP CONVERSION /HPF WBC Clumps Occasional HP CONVERSION Urine RBC 25-49 (A) 0 - 2 HP CONVERSION /HPF Bacteria Urine Moderate (A) /HPF HP CONVERSIO N Epithelial Few /HPF HP CONVERSION Cells Urine Mucus Moderate /LPF HP CONVERSION Amorphous Few /HPF HP CONVERSION Crystals Specimen Anatomical Collection Method Collection Time Receive d Time (Source) Location / / Volume Laterality 12/01/2012 9:39 AM 3 9:39 CDT AM CDT Narrative HP CONVERSION - 12/01/2012 10:02 AM CDT Performed at [facility], [address] [place] [address] Naya BUCHANAN LAB_1 Performing Organization Address City/State/ZIP Code Phon e Number HP CONVERSION documented in this encounter Visit Diagnoses Diagnosis Dysuria documented in this encounter Care Teams Director Outcomes Relationship Specialty Start Date End Date Po Coats MD PCP - General 08/07/[address] [place] [address] [place] [address] documented as of this encounter
--- OUTSIDE RECORDS SUMMARY | 2022-01-20 08:16 | XMS_ITS | Encounter Summary ---
:1950 Author Organization [employer] Address [address] [place] [address] Care Team Providers Name Role Phone Po Coats MD Primary Care Provider Encounter Details Date Type Department Care Team Description 08/08/2012 Hospital Encounter [facility] Leonard Dobbs Left arm weakness [address] [facility], [address] [place] [address] [place] [place] [address] [facility] [id number] (Wo rk) Social History Tobacco Use Types Packs/Day Years Used Date Smoking Tobacco: Never Assessed Sex Assigned at Date Recorded Not on file documented as of this encounter Medications at Time of Discharge Medication Sig Dispensed Refills Start Date End Date finasteride (AKA PROSCAR) Take 1 tablet by 90 tablet 3 07/1410/17/2012 5 MG tablet mouth daily (every 24 hours). Indications: BENIGN PROSTATIC HYPERTROPHY hydrochlorothiazide Take 1 capsule by 30 capsule 3 3 10/10/2012 capsule mouth daily (every 24 hours). tamsulosin (AKA FLOMAX) Take 1 capsule by 90 capsule 3 07/2510/17/2012 0.4 MG CAPS mouth nightly. documented as of this encounter Plan of Treatment Not on filedocumented as of this encounter Procedures Procedure Name Priority Date/Time Associated Diagnosis Comme nts MR CERVICAL SPINE Routine 08/08/2012 8:54 AM Left arm weakness Results for this WO IV CONT CDT procedure are i n the results section. documented in this encounter Results MR Cervical Spine WO IV Cont (08/08/2012 8:54 AM CDT) Anatomical Region Laterality Modality Spine, C-Spine, Neck, Vascular Other Specimen (Source) Anatomical Location Collection Method / Collectio n Time Received Time / Laterality Volume Impressions 08/08/2012 11:54 AM CDT IMPRESSION: Uncovertebral joint hypertro phy at C3-4 and C4-5 with moderate left C3-4 neuroforaminal narrowing. ??Correlate wi th possible left C4 radicular symptoms. ?? Narrative 08/08/2012 11:54 AM CDT INDICATION: Left arm weakness. ?? TECHNIQUE: ??MRI of the cervical spine w ithout contrast. COMPARISON: ??None available. ?? FINDINGS: ??The visualized midline poste rior fossa structures are unremarkable. ??Normal cord signal. ??Normal marrow signal. ??Normal alignment. ? Axial: C2-3: No neuroforaminal or spinal canal narrowing. C3-4: Uncovertebral joint hypertrophy. ? ? Mild right and moderate left neuroforaminal narrowing. ??No significant spinal canal narrowing. ?? C4-5: Uncovertebral joint hypertrophy. ? ?No significant neuroforaminal or spinal canal narrowing. ? C5-6: No neuroforaminal or spinal canal narrowing. C6-7: No neuroforaminal or spinal canal narrowing. C7-T1: No neuroforaminal or spinal canal narrowing. Procedure Note Caesar Sanches MD - 10/01/2015Format ting of this note might be different from the original. INDICATION: Left arm weakness. TECHNIQUE: MRI of the cervical spine wit hout contrast. COMPARISON: None available. FINDINGS: The visualized midline posteri or fossa structures are unremarkable. Normal cord signal. Normal marrow signal. Normal alignment. Axial: C2-3: No neuroforaminal or spinal canal narrowing. C3-4: Uncovertebral joint hypertrophy. M ild right and moderate left neuroforaminal narrowing. No significant spinal canal narrowing. C4-5: Uncovertebral joint hypertrophy. N o significant neuroforaminal or spinal canal narrowing. C5-6: No neuroforaminal or spinal canal narrowing. C6-7: No neuroforaminal or spinal canal narrowing. C7-T1: No neuroforaminal or spinal canal narrowing. IMPRESSION IMPRESSION: Uncovertebral joint hypertro phy at C3-4 and C4-5 with moderate left C3-4 neuroforaminal narrowing. Correlate with possible left C4 radicular symptoms. Leonard Dobbs MD RAD MRI documented in this encounter Visit Diagnoses Diagnosis Left arm weakness Other musculoskeletal symptoms referable to limbs documented in this encounter Care Teams Academic Services Professional Relationship Specialty Start Date End Date Po Coats MD PCP - General 08/07/[address] [place] [address] documented as of this encounter
--- OUTSIDE RECORDS SUMMARY | 2022-01-20 08:16 | XMS_ITS | Encounter Summary ---
:1950 Author [facility] Address [address], [place] [address] Care Team Providers Name Role Phone Carlos Solorio MD Primary Care Provider Reason for Visit Reason Comments Follow-up Encounter Details Date Type Department Care Team Description 01/31/2012 Office Visit [facility] Stephanie Coulter, Urinary tract [address] [facility] infection, [place] [address] [address] [facility] specified (Primary [phone] Blvd Dx) [place] [address] (Wo rk) Social History Tobacco Use Types Packs/Day Years Used Date Smoking Tobacco: Never Assessed Sex Assigned at Date Recorded Not on file documented as of this encounter Patient Instructions Patient InstructionsStephanie Coulter MD - 01/31/2012 9:10 AM CDT No fluids 3 hours before bed Continue the medications Follow up in 6 months documented in this encounter Progress Notes Stephanie Coulter MD - 01/31/2012 9:14 AM CDT Progress Notes signed by Stephanie Coulter MD at 02/04/12 0737 Author: Stephanie Coulter MD Service: (none) Author Type: Physician Filed: 02/04/12 0737 Note Time: 01/31/12913 Status: Signed Records Analysis Manager: Stephanie Coulter MD (Physician) NAME: NICOLETTE RICE MR#: [id number] CSN: [id number] AUTHENTICATING CLINICIAN: Stephanie Coulter MD CONFIRM #: [id number] LOC: 517 CLINIC PROGRESS NOTE DATE OF VISIT: 01/31/2012 : 1950 CLINICAL DATA: Nicolette is a very pleasant 61-year-old man with a history of BPH, urethral stricture, and urinary tractinfections. The patient underwent cystoscopy at his last visit which actually opened up a couple little veils of tissue and was placed on finasteride and Flomax. In the last 6 months, the patient has not had another urinary tract infection. He thinks that his urination has improved, but he is continuing to have nocturia 3-4 times a night. AUA symptom score is incomplete emptying 2, frequency 2, intermittency 1, urge to urinate 1, weak stream 2, straining 1, urinating at night 3. Bother score 3. UA today is negative for blood, negative for nitrates, and has a trace amount of leukocyte esterase. ASSESSMENT: 1. History of urethral stricture. 2. Lower urinary tract symptoms, likely secondary to benign prostatic hyperplasia including nocturia. PLAN: 1. Will continue the medications with finasteride and Flomax. 2. Advised the patient to stopped drinking fluids 3 hours before going to bed and to swish and spit if he is thirsty. 3. The patient will follow up with me in 6 months. At his next visit, we will repeat the PVR and AUAsymptom score. Total visit time was 15 minutes. 10 minutes was counseling. JR:MEDQ C: CONFIRM #: [id number] documented in this encounter Plan of Treatment Not on filedocumented as of this encounter Visit Diagnoses Diagnosis Urinary tract infection, site not specif ied - Primary documented in this encounter Care Teams Rn Mds Relationship Specialty Start Date End Date Carlos Solorio MD PCP - General 07/17/10 08/06/[address] [place], [place] [address] documented as of this encounter
--- OUTSIDE RECORDS SUMMARY | 2022-01-20 08:16 | XMS_ITS | Encounter Summary ---
:1950 Author Organization [facility] Address [address], [place] [address] Care Team Providers Name Role Phone Po Coats MD Primary Care Provider Reason for Visit Reason Comments Symptoms Encounter Details Date Type Department Care Team Description 12/01/2012 Telephone [facility] [address] [facility] Symptoms [address] [place] [address] [place] [address] [phone] (Wo rk) Social History Tobacco Use Types Packs/Day Years Used Date Smoking Tobacco: Never Assessed Sex Assigned at Date Recorded Not on file documented as of this encounter Nursing Notes Tara Begum RN - 12/02/2012 1:10 PM CDT Informed pt of results. Appointment scheduled for 12/04. ONDT Stephanie Coulter MD - 12/02/2012 12:28 PM CDT Urine culture is negative. Can you call pt, encourage water intake and then have him return to clinic on for cysto? Thanks Lu Orlando RN - 12/01/2012 9:05 AM CDT Patient calling with symptoms of dysuria, UA/UC ordered, pharmacy [facility]. documented in this encounter Plan of Treatment Not on filedocumented as of this encounter Visit Diagnoses Not on filedocumented in this encounter Care Teams Supervisor Vat House Relationship Specialty Start Date End Date Po Coats MD PCP - General 08/07/[address] [place] [address] documented as of this encounter
--- OUTSIDE RECORDS SUMMARY | 2022-01-20 08:16 | XMS_ITS | Encounter Summary ---
:1950 Author Organization [facility] Address [address], [place] [address] Care Team Providers Name Role Phone Po Coats MD Primary Care Provider Reason for Visit Reason Comments Post Op Exam Encounter Details Date Type Department Care Team Description 10/30/2012 Office Visit [facility] [place] [address] [facility] [place] [address] [address] [place] obstruction and other [phone] lower urinary tract [place], [place] symptoms ( LUTS) [address] (Primary Dx) [phone] (Wo rk) Social History Tobacco Use Types Packs/Day Years Used Date Smoking Tobacco: Never Assessed Sex Assigned at Date Recorded Not on file documented as of this encounter Progress Notes Stephanie Coulter MD - 10/30/2012 10:33 AM CDT Progress Notes signed by Stephanie Coulter MD at 11/07/12 8508 Author: Stephanie Coulter MD Service: (none) Author Type: Physician Filed: 11/07/12 6114 Note Time: 10/30/12 1203 Status: Signed Wet Primer Powder Blender: Stephanie Coulter MD (Physician) NAME: NICOLETTE RICE MR#: [id number] CSN: [id number] AUTHENTICATING CLINICIAN: Stephanie Coulter MD CONFIRM #: [id number] LOC: 517 CLINIC PROGRESS NOTE DATE OF VISIT: 10/30/2012 : 1950 CLINICAL DATA: Nicolette is a very pleasant, 62-year-old man with a history of benign prostatic hyperplasia and previously a history of urethral strictures. The patient underwent a transurethral vaporization of the prostate a couple of weeks ago and is here for his postop check. When he underwent the laser vaporization of the prostate, he had no evidence of recurrent strictures. His surgery was uneventful. Postoperatively, the patient has been doing well. He no longer has any blood in his urine. He has a great flow andis urinating less often at night. The patient overall is very happy with his improvement after the vaporization of the prostate. PVR today was 22 mL. Unfortunately, we were unable to get a urinalysis today. The patient states that he has a tiny bit of pain with urination but, for the most part, that is getting better as well. ASSESSMENT: History of benign prostatic hyperplasia, status post laser vaporization of the prostate. PLAN: Follow up in 6 months for 1 more visit just to make sure he is emptying his bladder well and has nothad any complications. JR:MEDQ C: CONFIRM #: [id number] documented in this encounter Plan of Treatment Not on filedocumented as of this encounter Visit Diagnoses Diagnosis Hypertrophy of prostate with urinary obs truction and other lower urinary tract symptoms (LUTS) - Primary documented in this encounter Care Teams Hotel Lobby Concierge Relationship Specialty Start Date End Date Po Coats MD PCP - General 08/07/12 [address] [place] [address] documented as of this encounter
--- OUTSIDE RECORDS SUMMARY | 2022-01-20 08:16 | XMS_ITS | Encounter Summary ---
:1950 Author Organization [facility] Address [address] [place] [address] Care Team Providers Name Role Phone Carlos Solorio MD Primary Care Provider Reason for Visit Reason Comments WEAKNESS,ARM Encounter Details Date Type Department Care Team Description 08/06/2012 [facility] Leonard Dobbs, Arm pain (Primary Dx); Center HTN (hypertension) [address] [place], [place] [address] [address] [place], [place] [address] (Wo rk) Social History Tobacco Use Types Packs/Day Years Used Date Smoking Tobacco: Never Assessed Sex Assigned at Date Recorded Not on file documented as of this encounter Last Filed Vital Signs Vital Sign Reading Time Taken Comments Blood Pressure 170/94 08/06/2012 2:32 PM CDT Pulse 69 08/06/2012 2:32 PM CDT Temperature 36 ??C (96.8 ??F) 08/06/2012 1:09 PM CDT Respiratory Rate 15 08/06/2012 2:32 PM CDT Oxygen Saturation 96% 08/06/2012 2:32 PM CDT Inhaled Oxygen Concentration - - Weight 104.3 kg (230 lb) 08/06/2012 1:09 PM CDT Height 175.3 cm (5' 9) 08/06/2012 1:09 PM CDT Body Mass Index 33.96 08/06/2012 1:09 PM CDT documented in this encounter Medications at Time [...] mouth nightly. documented as of this encounter ED Notes Leonard Dobbs MD - 08/06/2012 3:16 PM CDT Chief Complaint: Left arm paresthesias and weakness HPI: Raul Dickson is a 61 y.o. male who presents to the Emergency Center for evaluation of left arm paresthesias and numbness. The patient reports that last night he developed numbness, tingling, and weakness in his left arm while watching TV. He states that initially he thought it was a pinched nerve; he states that it felt as if his arm had fallen asleep. On current presentation he states that his symptoms are much improved from earlier this morning. The patient denies any similar symptoms in his lower extremities, any blurred vision, speech disturbances, headache, or chest pain. Of note, the patient previously had a rotator cuff repair on this shoulder last year; he states he had good recovery following this surgery. The patient voices no other concerns or complaints at this time. Medications: The patient is currently on no regular medications. Allergies: No known drug allergies. Past Medical History: Low back pain Rotator cuff tear, left Past Surgical History: Rotator cuff repair, left Family History: The patient reports no past pertinent family history. Social History: The patient is . He has no personal history of tobacco use. Review of Systems Eyes: Negative for visual disturbance. Cardiovascular: Negative for chest pain. Neurological: Positive for weakness and numbness. Negative for speech difficulty and headaches. Numbness, weakness, and paresthesias, all localized to the left arm. no symptoms in the lower or contralateral extremity. All other systems reviewed and are negative. Physical Exam: Triage Vitals Temp 08/06/12 1309 36 ??C (96.8 ??F) Temp src 08/06/12 1309 Oral Pulse 08/06/12 1309 72 Resp 08/06/12 1309 20 BP 08/06/12 1309 168/86 mmHg SpO2 08/06/12 1309 96 % Physical Exam BP 159/86 Pulse 67 Temp(Src) 36 ??C (96.8 ??F) (Oral) Resp 16 Ht 1.753 m (5' 9) Wt 104.327 kg (230 lb) BMI 33.95 kg/m2 SpO2 96% Gen: Patient sitting in NAD HEENT: EOMI, no conjunctival injection CV: Regular rate and rhythm no murmurs Pulm: Clear to auscultation bilaterally Abd: Soft non-tender and non-distended MSK: Warm and well perfused. Moving all 4 extremities without difficulty. no obvious deformities. tenderness at his AC joint with abduction of the arm. no overlying skin changes. Back: No midline spinal tenderness Neuro: Cranial nerves grossly intact, no apparent deficits. ED Course: The patient arrived via medics. After reviewing the electronic medical records, I examined the patient and obtained history from the patient in room 08 at 1438. I discussed the plan of care as outlinedherein, and he voiced understanding and agreement with this plan. An pre-hospital EKG was reviewd. On recheck I reviewed findings with the patient. I advised him regarding proper outpatient management and supportive care strategies for the outpatient setting. I also reviewed with him signs and symptoms to watch and return for. He is discharged to home in stable and improved condition. His questions were answered to his satisfaction prior to discharge. Last EC Vitals: Temp: 36 ??C (96.8 ??F) (08/06 1309) Temp src: Oral (08/06 130) Pulse: 69 (08/06 143) Resp: 15 (08/07 1431) BP: 170/94 mmHg (08/07 1431) SpO2: 96 % (08/07 1431) Impression and Plan: This is a 61 year old male sent to the emergency department via medics for concerns of left arm pain. The patient was seen at Urgent Care this afternoon where they obtianed an EKG. Due to their concernfor cardiac involvement with his arm pain that requested he gets transported to this ER for further treatment and cares. The patient arrived via medics, stable, awake and alert- patient placed on the hall monitor. Vital signs are within normal limits apart from hypertension with blood pressure in the 170s. Patient was in the ER for approximately 1.5 hours prior to my evaluation and during this time did not have hemodynamic instability nor arrhythmias. My physical exam was essentially unremarkable with no abnormal cardiac findings nor any pulmonary findings. In addition, the patient had no fevers, shortness of breath, pleurisy, or chest pain whatsoever. Differential in regards to his presentation of isolated left arm that is only exacerbated with specific movements is centered around a rotator cuff injury vs pinched cervical spinal nerve and less likely a muscle strain. This is not consistent with ACS and troponin spot testing is certainly not indicated. His EKG in comparison to previous EKG's did not show any ischemic changes . Incidentally, the patient was found to be hypertensive during cares, and for this reason I will treat him with a prescription for hydrochlorothiazide. I would like him to follow up with his primary doctor regarding this. Finally, for further workup of his left sided neck and arm pain, I will schedule him for an outpatient MRI which he will get on Saturday. He can discuss results from this with his primary doctor at the same time. He is discharged to home in stable condition; he was asked to return to the emergency department if he experiences chest pain, nausea or vomiting, diaphoresis, weakness, or significant difficulty breathing. Diagnosis: Diagnosis (ICD9) 1. Arm pain (729.5) 2. HTN (hypertension) (401.9) IDoreen, am serving as a scribe to document services personally performed by Dr. Billingsley at [facility] based on my observations and his statements to me. 08/06/2012 2:12 PM Leonard Dobbs MD 08/06/12 2153 ONDT Cammy Whitaker RN - 08/06/2012 3:15 PM CDT Patient reports understanding of discharge instructions. MRI will call patient to schedule MRI and patient given telephone number of MRI if they delay calling. Patient ready for discharge. Cammy Whitaker RN - 08/06/2012 3:13 PM CDT IV started at [facility] infused. Abiola Love Garrett - 08/06/2012 1:00 PM CDTBed:B08
Expected date:08/06/12
Expected time:12:56 PM
Means of arrival:[facility]
Comments:
[place] [id number] left shoulder pain, numbness documented in this encounter Miscellaneous Notes Medication History - Oscar Colón MD - 08/06/2012 3:16 PM CDT INPATIENT MEDS Encounter Date: 08/06/12 hydrochlorothiazide (MICROZIDE) 12.5 mg capsule Start Date:08/06/12, End Date:10/10/12, Frequency:DAILY *No Administrations Recorded hydrALAZINE 25 mg tablet Start Date:08/06/12, End Date:08/06/12, Frequency:4 TIMES DAILY *No Administrations Recorded documented in this encounter Plan of Treatment Not on filedocumented as of this encounter Procedures Procedure Name Priority Date/Time Associated Comments Diagnosis EMERGENCY CENTER STAT 08/06/2012 1:33 PM Resul ts for this DRAW AND HOLD CDT procedure are in the results section. ECG 12 LEAD STAT 08/06/2012 1:06 PM Results f or this OUTPATIENT CDT procedure are i n the results section. documented in this encounter Results EMERGENCY CENTER DRAW AND HOLD (08/06/2012 1:33 PM CDT) P athologist Signature Emergency Drawn HP CONVERSION Center Draw And Hold Extra Lavender Drawn HP CONVERSION Top Drawn Extra PST Top Drawn HP CONVERSION Drawn Extra SST Top Drawn HP CONVERSION Drawn Specimen Anatomical Collection Method Collection Time Receive d Time (Source) Location / / Volume Laterality 08/06/2012 1:33 PM 3 1:36 CDT PM CDT Willi Law MD LAB_1 Performing Organization Address City/State/ZIP Code Phon e Number HP CONVERSION ECG 12 Lead Outpatient (08/06/2012 1:06 PM CDT) P athologist Signature Ventricular Rate 73 BPM [facility] Atrial Rate 73 BPM [facility] P-R Interval 154 ms [facility] QRS Duration 78 ms [facility] QT 398 ms [facility] QTc 438 ms [facility] P [place] 18 degrees [facility] R [place] -37 degrees [facility] T [place] 43 degrees [facility] Specimen (Source) Anatomical Collection Method Collection Time Re ceived Time Location / / Volume Laterality 08/06/2012 1:06 PM CDT Narrative [facility] - 07/19/2019 5:50 PM CDT Sinus rhythm Left axis deviation Nonspecific T wave abnormality Abnormal ECG When compared with ECG of 06-AUG-2012 10 :52, No significant change was found Confirmed by WILLI LAW ([id number]), CARINA Serna () on 08/06/2012 10:38:28 PM Procedure Note Epic, Internal Processing - 07/23/2019Fo rmatting of this note might be different from the original. Sinus rhythm Left axis deviation Nonspecific T wave abnormality Abnormal ECG When compared with ECG of 06-AUG-2012 10 :52, No significant change was found Confirmed by WILLI LAW ([id number]), CARINA Serna () on 08/06/2012 10:38:28 PM Willi Law MD PN ECG ORDERABLES Performing Organization Address City/[facility]/ZIP [facility] Phon e Number [facility] [address] [place] [address] documented in this encounter Visit Diagnoses Diagnosis Arm pain - Primary Pain in limb HTN (hypertension) (HRC) Unspecified essential hypertension Triage Assessment Note - Cammy Whitaker RN - 08/06/2012 1:09 PM CDT Patient presents to from clinic via EMS because of left arm and shoulder numbness, tingling, and weakness starting last night while watching the [employer]ide[employer] game. Patient reports he has gained back the strength in his left arm since going to . On arrival still has some numbness/tingling/pain in his left should and arm but it is much reduced. Minimal drift noted with arms extended. Speech is clear. No ARMSTRONG. No weakness or pain in other extremities. No trauma to L shoulder/arm. documented in this encounter Care Teams Generation Technologist Relationship Specialty Start Date End Date Carlos Solorio MD PCP - General 07/17/10 08/06/12 [address] [place] [address] documented as of this encounter
--- OUTSIDE RECORDS SUMMARY | 2022-01-20 08:16 | XMS_ITS | Encounter Summary ---
:1950 Author Organization [facility] Address [address], [place] [address] Care Team Providers Name Role Phone Po Coats MD Primary Care Provider Reason for Visit Reason Comments Symptoms Encounter Details Date Type Department Care Team Description 11/20/2012 Telephone [facility] [address] Stephanie Kaplan MD Symptoms [address] [place] [address] [place] [address] [phone] (Wo rk) Social History Tobacco Use Types Packs/Day Years Used Date Smoking Tobacco: Never Assessed Sex Assigned at Date Recorded Not on file documented as of this encounter Nursing Notes Stephanie Abarca - 11/20/2012 8:52 AM CDT Pt calling states he is concerned about increasing urinary urgency symptoms for past week. He also states he has been having dysuria, for a few days and is concerned about hematuria today also. Denies fever but states he feels like he is not empyting is bladder completely. Pt had laser TURP surgery with Dr. Coulter on 10/17/12. Patient booked for appointment with Dr. Coulter this morning @ [facility]. documented in this encounter Plan of Treatment Not on filedocumented as of this encounter Visit Diagnoses Not on filedocumented in this encounter Care Teams X Ray Developer Relationship Specialty Start Date End Date Po Coats MD PCP - General 08/07/[address] [place] [address] documented as of this encounter
--- OUTSIDE RECORDS SUMMARY | 2022-01-20 08:16 | XMS_ITS | Encounter Summary ---
:1950 Author Organization [facility] Address [address] [place] [address] Care Team Providers Name Role Phone Po Coats MD Primary Care Provider Encounter Details Date Type Department Care Team Description 01/26/2013 Immunization [facility] Need for influenza [address] [address]. vaccination (Primary Dx) [place], [place] [phone] Social History Tobacco Use Types Packs/Day Years Used Date Smoking Tobacco: Never Assessed Sex Assigned at Date Recorded Not on file documented as of this encounter Plan of Treatment Not on filedocumented as of this encounter Visit Diagnoses Diagnosis Need for influenza vaccination - Primary Need for prophylactic vaccination and in oculation against influenza documented in this encounter Care Teams Quality Reviewer Relationship Specialty Start Date End Date Po Coats MD PCP - General 08/07/12 [address] [place] [address] documented as of this encounter
--- OUTSIDE RECORDS SUMMARY | 2022-01-20 08:16 | XMS_ITS | Encounter Summary ---
:1950 [facility] Address [address], [place] [address] Care Team Providers Name Role Phone Po Coats MD Primary Care Provider Reason for Visit Reason Comments Post Op Exam Encounter Details Date Type Department Care Team Description 11/20/2012 Office Visit [facility] Stephanie Coulter, Gross hematuria [address] [facility] (Primary Dx) [place] [address] [address] [facility] [phone] [place] [address] (Wo rk) Social History Tobacco Use Types Packs/Day Years Used Date Smoking Tobacco: Never Assessed Sex Assigned at Date Recorded Not on file documented as of this encounter Progress Notes Stephanie Coulter MD - 11/20/2012 11:52 AM CDT Progress Notes signed by Stephanie Coulter MD at 12/01/122027 Author: Stephanie Coulter MD Service: (none) Author Type: Physician Filed: 12/01/122027 Note Time: 11/20/121237 Status: Signed Cloth Washer Operator: Stephanie Coulter MD (Physician) NAME: NICOLETTE RICE MR#: [id number] CSN: [id number] AUTHENTICATING CLINICIAN: Stephanie Coulter MD CONFIRM #: [id number] LOC: 517 CLINIC PROGRESS NOTE DATE OF VISIT: 11/20/2012 : 1950 CLINICAL DATA: Nicolette is a very pleasant, 62-year-old man who underwent laser vaporization of the prostate in early October. The patient comes in with 1 week of urinary urgency, nocturia, burning with urination and pain with urination. UA shows large amount of blood, nitrate negative, moderate amount of leukocyte esterase. PVR is 0. ASSESSMENT: Urinary tract infection. PLAN: Empiric antibiotics, Pyridium and urine culture. Patient will call me if his symptoms do not improve. JR:TENZIN C: CONFIRM #: [id number] documented in this encounter Plan of Treatment Not on filedocumented as of this encounter Procedures Procedure Name Priority Date/Time Associated Comments Diagnosis POCT URINALYSIS Routine 11/20/2012 11:13 AM Gross hematuria Re sults for this UROLOGY CDT procedure are i n the results section. URINE CULTURE Routine 11/20/2012 9:45 AM Gross hematuria Resul ts for this CDT procedure are i n the results section. documented in this encounter Results POCT URINALYSIS UROLOGY (11/20/2012 11:13 AM CDT) P athologist Signature See SDOC scanned HP CONVERSION Specimen (Source) Anatomical Collection Method Collection Time Re ceived Time Location / / Volume Laterality 11/20/2012 11:13 AM CDT Stephanie Coulter MD PN POINT OF CARE TESTS Performing Organization Address City/State/ZIP Code Phon e Number HP CONVERSION (ABNORMAL) Urine Culture (11/20/2012 9:45 AM CDT) Component Value Ref Test Analysis Performed At Patholo gist Range Method Time Signature Source Urine HP CONVERSION Site clean catch HP CONVERSION Urine Culture (A) HP CONVERSION Urine Culture Streptococcus agalactiae (Group B) HP CONVERSION >100,000 cfu/ml Specimen (Source) Anatomical Collection Method Collection Time Re ceived Time Location / / Volume Laterality Urine:clean catch 11/20/2012 9:45 AM CDT Stephanie Coulter MD LAB_1 Performing Organization Address City/State/ZIP Code Phon e Number HP CONVERSION documented in this encounter Visit Diagnoses Diagnosis Gross hematuria - Primary documented in this encounter Care Teams Cocoa Roaster Relationship Specialty Start Date End Date Po Coats MD PCP - General 08/07/12 [address] [place] [address] documented as of this encounter
--- OUTSIDE RECORDS SUMMARY | 2022-01-20 08:16 | XMS_ITS | Encounter Summary ---
:1950 Author Organization [employer] Address [address], [place] [address] Care Team Providers Name Role Phone Carlos Solorio MD Primary Care Provider Reason for Visit Reason Comments SHOULDER PAIN NUMBNESS Encounter Details Date Type Department Care Team Description 08/06/2012 Hospital Encounter [facility] Kirk Dawson A rm numbness left (Primary Dx); Brianna Oconnell MD Paresthesia; [address]ness; [address] [place] [address] [id number] Social History Tobacco Use Types Packs/Day Years Used Date Smoking Tobacco: Never Assessed Sex Assigned at Date Recorded Not on file documented as of this encounter Last Filed Vital Signs Vital Sign Reading Time Taken Comments Blood Pressure 140/86 08/06/2012 11:48 AM CDT Pulse 75 08/06/2012 12:18 PM CDT Temperature 36.1 ??C (97 ??F) 08/06/2012 11:48 AM CDT Respiratory Rate - - Oxygen Saturation 96% 08/06/2012 12:18 PM CDT Inhaled Oxygen Concentration - - Weight - - Height - - Body Mass Index - - documented in this encounter Medications at Time of Discharge Medication Sig Dispensed Refills Start Date End Date finasteride (AKA Take 1 tablet by mouth 90 tablet 3 012 10/17/2012 PROSCAR) 5 MG tablet daily (every 24 hours). Indications: BENIGN PROSTATIC HYPERTROPHY tamsulosin (AKA Take 1 capsule by 90 capsule 3 07/26/2011 FLOMAX) 0.4 MG CAPS mouth nightly. documented as of this encounter ED Notes Kirk Dawson MD - 08/06/2012 1:05 PM CDT ED Provider Notes signed by Kirk Dawson MD at 08/20/12 5131 Author: Kirk Dawson MD Service: (none) Author Type: Physician Filed: 08/20/12 1502 Note Time: 08/06/121925 Status: Signed Dental Laboratory Technology Teacher: Kirk Dawson MD (Physician) NAME: NICOLETTE RCIE MR#: [id number] CSN: [id number] AUTHENTICATING CLINICIAN: Kirk Dawson MD CONFIRM #: [id number] LOC: 520 URGENT CARE PROGRESS NOTE DATE OF VISIT: 08/06/2012 : 1950 SUBJECTIVE: The patient is a 61-year-old male who about 16 hours ago was lying on his couch watching the [employer] game and felt a sharp pain in his left shoulder area. He fairly shortly after that felt like the left arm was weak and there was tingling from the shoulder down into the fingers. He denies headache, other tingling, numbness, weakness, facial pain or trauma, fever, vomiting, diarrhea, coughing or chest pain. So the rest of the complete systems review is negative. SOCIAL HISTORY: He is unemployed and he is currently going to a vocational tech. PAST HISTORY: Negative for similar issues. FAMILY HISTORY: Family history does include his father apparently having had lung cancer. The patient himself does not smoke. Father also did have a heart stents in his 50s. The patient denies history of elevated cholesterol, blood sugar or elevated blood pressure. He describes overall symptoms as moderate. ALLERGIES: Past history includes no allergies to medicines. CURRENT MEDICINES: His only current medications are Proscar and Flomax. He was seen STAT in our cardiac room. EKG was done on his arrival, as well. OBJECTIVE: VITAL SIGNS: Temp 97, pulse 78, O2 saturation 92% on room air, and 96% after O2 given, BP was 140/86. GENERAL: On exam, he appears alert and oriented x3 and answers questions well. EXTREMITIES: He states that he feels like he cannot keep his left arm where he wants to keep it, and he definitely has weakness and there is drift on that side doing a drift test. Arm strength throughout is about a 4-5/10 including interosseous muscles, architectural examiner strength, abduction and flexion at the elbow. He does feel some pain to palpation externally over the shoulder, but there is no neck pain or tenderness to movement. NECK: Otherwise moves well and there are no carotid bruits. HEART: Shows regular rate and rhythm. LUNGS: Clear. ABDOMEN: Obese, but nontender. NEUROLOGICALLY: Otherwise passes [id number], cranial nerves, strength and coordination testing. Homans sign is negative. DIAGNOSTIC STUDIES: EKG done STAT on his arrival showed some left axis deviation and nonspecific T- wave abnormalities and really no significant change compared to EKG done in April 2011. LABORATORY DATA: Blood sugar also was 126. Oxygen was also applied and O2 saturation improved, as noted, and blood sugar was 126. ASSESSMENT: Paresthesia sensation in the left arm, as well as weakness in the left arm. He also has an abnormal electrocardiogram, but no change really from the previous. PLAN: I think he needs to as soon as possible have differentiation as to whether or not this weakness is caused from a central or peripheral source, and as such she should be transferred STAT the hospital for a STAT workup. So, he was sent up to [facility]. I did discuss the case with the charge nurse there and let them know the patient was coming and sent copies of his EKGs, and of his previous history here, as well as his medicines and gave a written urgent care transfer record. He was sent stable by ambulance with O2 on and further workup and management will be through [facility]. Comprehensive visit here today. WDL:MEDQ C: CONFIRM #: [id number] documented in this encounter Miscellaneous Notes Medication History - Integration, MD Oscar - 08/06/2012 12:31 PM CDT INPATIENT MEDS Encounter Date: 08/06/12 0.9% sodium chloride infusion Start Date:08/06/12, End Date:08/06/12, Frequency:ONCE Taken Dose Action User Route Site Recorded Comment Reason 08/06/12 1229 1,000 mL Transfer with Infusion Pao Thomas RN Intravenous - 08/06/12 1229 - - 08/06/12 1215 1,000 mL Started Pao Thomas RN Intravenous - 08/06/12 1229 - - documented in this encounter Plan of Treatment Not on filedocumented as of this encounter Procedures Procedure Name Priority Date/Time Associated Diagnosis Comme nts BGS NO CHARGE Routine 08/06/2012 12:18 PM Results for this CDT procedure are i n the results section. ECG 12 LEAD Routine 08/06/2012 10:52 AM Arm numbness left Res ults for this INPATIENT CDT procedure are i n the results section. documented in this encounter Results BGS NO CHARGE (08/06/2012 12:18 PM CDT) athologist Signature Bedside Blood 126 mg/dL HP CONVERSION Glucose Test Comment: Performed at [facility], [address] , [place]. [address] Specimen Anatomical Collection Method Collection Time Receive d Time (Source) Location / / Volume Laterality 08/06/2012 12:18 08/06/2012 PM CDT 12:20 PM CDT Kirk Dawson MD LAB_1 Performing Organization Address City/State/ZIP Code Phon e Number HP CONVERSION ECG 12 Lead Inpatient (08/06/2012 10:52 AM CDT) P athologist Signature Ventricular Rate 74 BPM [facility] Atrial Rate 74 BPM [facility] P-R Interval 152 ms [facility] QRS Duration 80 ms [facility] QT 380 ms [facility] QTc 421 ms [facility] P [place] 55 degrees M[facility] R [place] -40 degrees [facility] T [place] 41 degrees [facility] Specimen (Source) Anatomical Collection Method Collection Time Re ceived Time Location / / Volume Laterality 08/06/2012 10:52 AM CDT Narrative [facility] - 07/19/2019 5:51 PM CDT Sinus rhythm Left axis deviation Nonspecific T wave abnormality Abnormal ECG When compared with ECG of 23-APR-2011 10 :25, No significant change was found Confirmed by DAVID WARREN ([id number]), CARINA Serna () on 08/06/2012 2:57:45 PM Procedure Note Epic, Internal Processing - 07/23/2019Fo rmatting of this note might be different from the original. Sinus rhythm Left axis deviation Nonspecific T wave abnormality Abnormal ECG When compared with ECG of 23-APR-2011 10 :25, No significant change was found Confirmed by DAVID WARREN ([id number]), CARINA Serna () on 08/06/2012 2:57:45 PM Cristal Jorge MD PN ECG ORDERABLES Performing Organization Address City/State/ZIP Code Phon e Number MUSE [address] [place] [address] documented in this encounter Visit Diagnoses Diagnosis Arm numbness left - Primary Disturbance of skin sensation Paresthesia Disturbance of skin sensation Weakness Other malaise and fatigue Abnormal EKG Nonspecific abnormal electrocardiogram ( ECG) (EKG) Triage Assessment Note - Connei Colin RN - 08/06/2012 11:47 AM CDT states he thinks he has a pinched nerve in his left shoulder. has left shoulder pain and numbness inarm beginning last night. states pain is palpable and increases with movement. denies chest pain, sob, nausea or sweating. documented in this encounter Care Teams Engineering Agent Relationship Specialty Start Date End Date Carlos Solorio MD PCP - General 07/17/10 08/06/[address] [place] [address] documented as of this encounter
--- OUTSIDE RECORDS SUMMARY | 2022-01-20 08:16 | XMS_ITS | Encounter Summary ---
:1950 Author Organization [employer] Address [address] [address] Care Team Providers Name Role Phone Po Coats MD Primary Care Provider Reason for Visit Reason Comments Follow-up Encounter Details Date Type Department Care Team Description 12/04/2012 Office Visit [facility] Stephanie Coulter, Burning with [address] [address] ([place] [address] [facility] Dx) [phone] [place] [address] (Wo rk) Social History Tobacco Use Types Packs/Day Years Used Date Smoking Tobacco: Never Assessed Sex Assigned at Date Recorded Not on file documented as of this encounter Patient Instructions Patient InstructionsStephanie Coulter MD - 12/04/2012 3:53 PM CDT Take vesicare once a day for 28 days. If you are still having symptoms, call Dr. Coulter and let her know [phone], fill the ditropan and start taking. If the symptoms are better, try without medication. Follow up in 3 months. documented in this encounter Progress Notes Stephanie Coulter MD - 12/04/2012 3:52 PM CDT Progress Notes signed by Stephanie Coulter MD at 12/08/12928 Author: Stephanie Coulter MD Service: (none) Author Type: Physician Filed: 12/08/12928 Note Time: 12/04/121920 Status: Signed Shutdown Coordinator: Stephanie Coulter MD (Physician) NAME: NICOLETTE RICE MR#: [id number] CSN: [id number] AUTHENTICATING CLINICIAN: Stephanie Coulter MD CONFIRM #: [id number] LOC: 517 CLINIC PROGRESS NOTE DATE OF VISIT: 12/04/2012 : 1950 CLINICAL DATA: Nicolette is a very pleasant 62-year-old man with a history of BPH and urinary tract infections. The patient's main complaint was weak stream. The patient underwent laser vaporization of the prostate in early October. The first 2 weeks, the patient did great, and really did not have any problems. Then the patient developed some urinary frequency and urgency. He came into the clinic last week. He had positivenitrates on his UA. Therefore, I thought he had a urinary tract infection. His urine culture grew out group B strep. He was treated empirically with antibiotics, and his symptoms really have not improved. He underwent a repeat urine culture that showed no growth. PROCEDURE: I was worried that the patient may have developed a stricture. Therefore, we repeated the cystoscopy. The 18-Irish cystoscope was placed in the patient's urethra, and into the bladder. The prostate itself appears to be healing. There is no evidence of stricture, no narrowing, and the bladder itself looks relatively normal. The cystoscope was removed. The patient tolerated the procedure well. ASSESSMENT/PLAN: De michael urgency and nocturia after laser vaporization of the prostate. I think this is most likely some irritation of the bladder, and the prostatic area that is causing him to have these symptoms. At this point, I discussed with the patient trying VESIcare for a month, and seeing how he does. He willcall me after he finishes the VESIcare, to let me know how he is doing. JR:TENZIN C: CONFIRM #: [id number] documented in this encounter Plan of Treatment Not on filedocumented as of this encounter Visit Diagnoses Diagnosis Burning with urination - Primary Dysuria documented in this encounter Care Teams Front Desk Agent Relationship Specialty Start Date End Date Po Coats MD PCP - General 08/07/12 [address] [address] [place] [address] documented as of this encounter
--- OUTSIDE RECORDS SUMMARY | 2022-01-20 08:16 | XMS_ITS | Encounter Summary ---
:1950 Author Organization [employer] Address [address], [place] [address] Care Team Providers Name Role Phone Po Coats MD Primary Care Provider Reason for Visit Reason Comments PRE-OP EXAM Encounter Details Date Type Department Care Team Description 10/10/2012 Pre-Op Visit [facility] Po Coats, Scout e-op exam (Primary Medicine Dx) [address] [place] [address] [place], [place] [phone] [address] (Wo rk) Social History Tobacco Use Types Packs/Day Years Used Date Smoking Tobacco: Never Assessed Sex Assigned at Date Recorded Not on file documented as of this encounter Last Filed Vital Signs Vital Sign Reading Time Taken Comments Blood Pressure 124/81 10/10/2012 9:33 AM CDT Pulse 66 10/10/2012 9:33 AM CDT Temperature 37.2 ??C (99 ??F) 10/10/2012 9:33 AM CDT Respiratory Rate 20 10/10/2012 9:33 AM CDT Oxygen Saturation - - Inhaled Oxygen Concentration - - Weight 114.3 kg (252 lb) 10/10/2012 9:33 AM CDT Height 172.1 cm (5' 7.75) 10/10/2012 9:33 AM CDT Body Mass Index 38.6 10/10/2012 9:33 AM CDT documented in this encounter Patient Instructions Patient InstructionsValarie Thapa LPN - 10/10/2012 10:33 AM CDT Body mass index is 38.59 kg/(m^2). BMI sheet given. Please notify our clinic if you develop any new concerning symptoms such as fevers, chest pain, or breathing difficulties between now and your surgery. Please hold all aspirin, ibuprofen (Advil, Motrin) and naproxen (Aleve) products for the week prior to your surgery. documented in this encounter OR Notes H&P - Po Coast MD - 10/10/2012 11:03 AM CDT PREOPERATIVE ASSESSMENT Date of : 1950 Age: 62 y.o. Sex: male Preoperative Evaluation completed by: Po Coats MD Primary care physician: Po Coats [phone] CHIEF COMPLAINT Pre-Operative Evaluation ANTICIPATED PROCEDURE TURP HISTORY OF PRESENT ILLNESS BPH Risk Factors/Review of Systems: (Please see flowsheets for details) Cardiovascular risks negative except for: Renal risks negative except for: Neuro risks negative except for: GI risks negative except for: Pulmonary risks negative except for: Endocrine/Nutrition risks negative except for: Hematologic Disease risks negative except for: Musculoskeletal/Skin risks negative except for: Mental Health risks negative except for: Other risk factors negative except for: Men >45 years old, women >55 years old: Complete review of systems is otherwise negative. Patient is able to reach METS >4 without chest pain or shortness of breath. History reviewed. No pertinent past medical history. Past Surgical History Procedure Laterality Date ??? Shoulder surgery Family History Problem Relation Age of Onset ??? Cancer Father lung ??? Early Brother infant ??? Early Brother History Social History ??? Marital Status: Spouse Name: chris Number of Children: 2 ??? Years of Education: 14 Occupational History ??? retired Social History Main Topics ??? Smoking status: Never Smoker ??? Smokeless tobacco: Never Used ??? Alcohol Use: No rare ??? Drug Use: Not on file ??? Sexually Active: Not on file Other Topics Concern ??? Not on file Social History Narrative ??? No narrative on file Current Outpatient Prescriptions Medication Sig Dispense Refill ??? : finasteride (PROSCAR) 5 mg tablet Take 1 tablet by mouth daily (every 24 hours). Indications: BENIGN PROSTATIC HYPERTROPHY 90 tablet 3 ??? DISCONTD: hydrochlorothiazide (MICROZIDE) 12.5 mg capsule Take 1 capsule by mouth daily (every 24 hours). 30 capsule 3 ??? : tamsulosin (FLOMAX) 0.4 mg 24 hr capsule Take 1 capsule by mouth nightly. 90 capsule 3 No current facility-administered medications for this visit. No Known Allergies PHYSICAL EXAMINATION Temp: 37.2 ??C (99 ??F) (10/10/12932) Pulse: 66 (10/10/12932) Resp: 20 (10/10/12932) BP: 124/81 mmHg (10/10/12932) Height: 172.1 cm (5' 7.75) (10/10/12932) Weight: 114.306 kg (252 lb) (10/10/12932) BMI (Calculated): 38.68 (10/10/12932) General Appearance: Normal HEENT: Normal Neck: Normal Lungs: Normal Heart: Abdomen: Normal Normal Extremities: Normal Skin: Normal Neurologic: Normal TEST RESULTS AND DATE EKG done: On chart Labs done: no ASSESSMENT 1. Preoperative Assessment: This patient has been examined by me today and has been found to be a suitable candidate for surgery: Yes RECOMMENDATIONS AND PLAN Day of surgery testing: none Medication recommendations: no adjustments needed. Additional screening recommended: no Consult (Cardiology/other): no Additional test results attached: none Beta fermin protocol ordered: no Insulin/Diabetes orders initiated: no Initiate continuous O2 sat monitoring post-op: no Other: no ABOVE RECOMMENDATIONS WERE REVIEWED WITH PATIENT: yes Po Coats MD 10/10/2012 documented in this encounter Plan of Treatment Not on filedocumented as of this encounter Procedures Procedure Name Priority Date/Time Associated Comments Diagnosis ECG 12 LEAD Routine 10/10/2012 10:08 AM Pre-op exam Results for this OUTPATIENT CDT procedure are i n the results section. documented in this encounter Results ECG 12 Lead Outpatient (10/10/2012 10:08 AM CDT) P athologist Signature Ventricular Rate 67 BPM [facility] Atrial Rate 67 BPM [facility] P-R Interval 162 ms MUSE [facility] QRS Duration 78 ms M[facility] QT 414 ms MUSE [facility] QTc 437 ms MUSE [facility] P [place] 50 degrees MUSE GHP R [place] -45 degrees MUSE G[facility] T [place] 9 degrees MUSE GHP Specimen (Source) Anatomical Collection Method Collection Time Re ceived Time Location / / Volume Laterality 10/10/2012 10:08 AM CDT Narrative [facility] - 07/19/2019 2:08 PM CDT Sinus rhythm Left axis deviation Nonspecific T wave abnormality Abnormal ECG When compared with ECG of 06-AUG-2012 13 :06, No significant change was found Confirmed by GABI DAUGHERTY ([id number]), mickey or VINI LEBLANC ([id number]) on 10/10/2012 4:11:36 PM Procedure Note Epic, Internal Processing - 07/22/2019Fo rmatting of this note might be different from the original. Sinus rhythm Left axis deviation Nonspecific T wave abnormality Abnormal ECG When compared with ECG of 06-AUG-2012 13 :06, No significant change was found Confirmed by GABI DAUGHERTY ([id number]), mickey or VINI LEBLANC ([id number]) on 10/10/2012 4:11:36 PM Po Coats MD PN ECG ORDERABLES Performing Organization Address City/State/ZIP Code Phon e Number [facility]USE [facility] [address] [place] [address] documented in this encounter Visit Diagnoses Diagnosis Pre-op exam - Primary Preoperative examination, unspecified documented in this encounter Care Teams Clothing Cutter Relationship Specialty Start Date End Date Po Coats MD PCP - General 08/07/12 [address] [address] [place] [address] documented as of this encounter
--- OUTSIDE RECORDS SUMMARY | 2022-01-20 08:16 | XMS_ITS | Encounter Summary ---
:1950 Author Organization [facility] Address [address] [address] Care Team Providers Name Role Phone Po Coats MD Primary Care Provider Encounter Details Date Type Department Care Team Description 12/01/2012 Notes/Orders [facility] [address] Stephanie Coulter, Dys uria (Primary Dx) Urology [address] [facility] [place] [address] [phone] (Wo rk) Social History Tobacco Use Types Packs/Day Years Used Date Smoking Tobacco: Never Assessed Sex Assigned at Date Recorded Not on file documented as of this encounter Plan of Treatment Not on filedocumented as of this encounter Visit Diagnoses Diagnosis Dysuria - Primary documented in this encounter Care Teams Snowboarding Instructor Relationship Specialty Start Date End Date Po Coats MD PCP - General 08/07/12 [address] [address] [place] [address] documented as of this encounter
--- OUTSIDE RECORDS SUMMARY | 2022-01-20 08:16 | XMS_ITS | Encounter Summary ---
:1950 Author Organization [employer] Address [address], [place] [address] Care Team Providers Name Role Phone Po Coats MD Primary Care Provider Encounter Details Date Type Department Care Team Description 10/17/2012 Hospital Encounter [facility] Stephanie Coulter [facility] [address] [place], [place] [address] [place], [place] [phone] (Wo rk) Social History Tobacco Use Types Packs/Day Years Used Date Smoking Tobacco: Never Assessed Sex Assigned at Date Recorded Not on file documented as of this encounter Last Filed Vital Signs Vital Sign Reading Time Taken Comments Blood Pressure - - Pulse - - Temperature - - Respiratory Rate - - Oxygen Saturation - - Inhaled Oxygen Concentration - - Weight 108.9 kg (240 lb) 10/17/2012 6:18 AM CDT Height 172.7 cm (5' 8) 10/17/2012 6:18 AM CDT Body Mass Index 36.49 10/17/2012 6:18 AM CDT documented in this encounter Discharge Instructions Stephanie Carroll MD - 10/17/2012 9:22 AM CDT I restarted the flomax and finasteride just for one month to help you recover from the operation. Discharge Instr - Other OrdersStephanie Coulter MD - 10/17/2012 9:21 AM CDT Discharge instructions: PATIENT SPECIFIC INSTRUCTIONS: For any issues after discharge, please contact Stephanie Coulter at [phone]. THINGS TO BE WORRIED ABOUT: Go to the Emergency Room, Urgent Care, or call Urology: *Temperature greater than 101 *Pain is not controlled with medications *Chest pain or shortness of breath GENERAL ACTIVITY: *You may shower *Take pain medications as indicated. *No heavy lifting or rigorous exercise for one week. Walking and climbing stairs is okay. *No driving while taking pain medications *As tolerated URINE: *You may have some blood in the urine, this is expected. If your urine starts turning red, you are doing too much. Take it easy for a few hours and it should subside. If there is a lot of bleeding or your catheter is not draining call the above number. CATHETER: *Remove your catheter tomorrow morning. DIET: *Plenty of water, fruits, and vegetables documented in this encounter Medications at Time of Discharge Medication Sig Dispensed Refills Start Date End Date finasteride (aka Take 1 tablet by 30 tablet 0 10/17/2012 PROSCAR) tablet mouth daily (every 24 hours). Indications: BENIGN PROSTATIC HYPERTROPHY HYDROcodone-acetaminoph Take 1 tablet by 30 tablet 0 201210/30/2012 en (aka NORCO) 5-325 MG mouth every 6 hours tablet TABS as needed for Pain. polyethylene glycol Take 17 g by mouth 225 g 1 10/18/19 13 10/30/2012 3350 (aka GLYCOLAX) daily (every 24 powder hours). Take if you are taking narcotic pain medication to avoid constipation. tamsulosin (aka FLOMAX) Take 1 capsule by 30 capsule 0 10/1710/30/2012 CAPS mouth nightly. documented as of this encounter Procedure Notes Stephanie Coulter MD - 10/17/2012 9:16 AM CDT PREOPERATIVE DIAGNOSES: Benign prostate hyperplasia with obstruction POSTOPERATIVE DIAGNOSES: Benign prostate hyperplasia with obstruction NAME OF PROCEDURE: laser transurethral resection of the prostate. ANESTHESIA: General. SURGEON: Stephanie Coulter PREOPERATIVE STATUS: Raul Dickson is a 62 y.o. male who has a long history of BPH with LUTS despite the medical treatment. Therefore, the above operation was recommended, and the patient agreed and proceeded with the surgery today. OPERATIVE PROCEDURES AND FINDINGS: The patient was placed in a lithotomy position upon completing spinal anesthesia, his operative areawas prepped and draped in the usual sterile fashion. The Laserscope was inserted under direct vision. The patient has a history of wispy urethral stricture. There was evidence of previous strictures but the urethra was open. The examination again confirmed the trilobar enlargement of the prostate. Thebladder itself was unremarkable. Both ureteral orifices were visualized and unharmed throughout the case. Next, laser fiber was inserted. The initial laser power was 80 joyce, and then I gradually increasedto 150 joyce. The median lobe was taken down first. Then the bilateral lateral lobes were vaporized.The distal limitation of the resection was at the verumontanum, and the proximal limitation was at the bladder neck. Toward the end of the procedure, the prostatic urethra was widely open. The entire procedure went very well. Estimated blood loss was 25 cc, no complications. A 20-Tamazight Archibald catheterwas left in, and he left the operating room in a satisfactory condition. documented in this encounter Miscellaneous Notes Medication History - Oscar Colón MD - 10/17/2012 1:35 PM CDT INPATIENT MEDS Encounter Date: 10/08/12 HYDROcodone-acetaminophen (NORCO) 5-325 mg per tablet 1-2 tablet Start Date:10/17/12, End Date:10/17/12, Frequency:EVERY 4 HOURS PRN *No Administrations Recorded finasteride (PROSCAR) 5 mg tablet Start Date:10/17/12, End Date:10/30/12, Frequency:DAILY *No Administrations Recorded tamsulosin (FLOMAX) 0.4 mg 24 hr capsule Start Date:10/17/12, End Date:10/30/12, Frequency:AT BEDTIME *No Administrations Recorded HYDROcodone-acetaminophen (NORCO) 5-325 mg per tablet Start Date:10/17/12, End Date:10/30/12, Frequency:EVERY 6 HOURS PRN *No Administrations Recorded polyethylene glycol (MIRALAX) 17 gram/dose powder Start Date:10/17/12, End Date:10/30/12, Frequency:DAILY *No Administrations Recorded tamsulosin (FLOMAX) 0.4 mg 24 hr capsule Start Date:10/17/12, End Date:10/17/12, Frequency:AT BEDTIME *No Administrations Recorded finasteride (PROSCAR) 5 mg tablet Start Date:10/17/12, End Date:10/17/12, Frequency:DAILY *No Administrations Recorded ondansetron (ZOFRAN) injection 4 mg Start Date:10/17/12, End Date:10/17/12, Frequency:EVERY 4 HOURS PRN *No Administrations Recorded fentaNYL (SUBLIMAZE) injection 25-50 mcg Start Date:10/17/12, End Date:10/17/12, Frequency:EVERY 5 MIN PRN *No Administrations Recorded HYDROmorphone (DILAUDID) injection 0.2-0.4 mg Start Date:10/17/12, End Date:10/17/12, Frequency:EVERY 10 MIN PRN *No Administrations Recorded meperidine (DEMEROL) injection 12.5 mg Start Date:10/17/12, End Date:10/17/12, Frequency:EVERY 5 MIN PRN *No Administrations Recorded midazolam (VERSED) 1 mg/mL injection 1-2 mg Start Date:10/17/12, End Date:10/17/12, Frequency:EVERY 5 MIN PRN *No Administrations Recorded fentaNYL (SUBLIMAZE) injection 25-50 mcg Start Date:10/17/12, End Date:10/17/12, Frequency:EVERY 5 MIN PRN *No Administrations Recorded ceFAZolin (ANCEF) 1 g in dextrose 50 ml IVPB Start Date:10/17/12, End Date:10/17/12, Frequency:ONCE *No Administrations Recorded lidocaine 1% (PF) 10 mg/mL (1 %) injection Start Date:10/17/12, End Date:-, Frequency:- *No Administrations Recorded lactated ringers infusion Start Date:10/17/12, End Date:-, Frequency:- *No Administrations Recorded lactated ringers infusion Start Date:10/17/12, End Date:-, Frequency:- *No Administrations Recorded HYDROcodone-acetaminophen (NORCO) 5-325 mg per tablet Start Date:10/17/12, End Date:-, Frequency:- *No Administrations Recorded documented in this encounter Plan of Treatment Not on filedocumented as of this encounter Visit Diagnoses Not on filedocumented in this encounter Care Teams Ux Interaction Designer Relationship Specialty Start Date End Date Po Coats MD PCP - General 08/07/12 [id number] [address] [place] [id number] documented as of this encounter
--- OUTSIDE RECORDS SUMMARY | 2022-01-20 08:16 | XMS_ITS | Encounter Summary ---
:1950 Author Organization [employer] Address [address], [place] [address] Care Team Providers Name Role Phone Po Coats MD Primary Care Provider Reason for Visit Reason Comments Provider Orders Encounter Details Date Type Department Care Team Description 08/07/2012 Telephone [facility] Carlo Coats MD Provider Orders Medicine [id number] [place] [address] [place], [place] [id number] [place] [address] [phone] Social History Tobacco Use Types Packs/Day Years Used Date Smoking Tobacco: Never Assessed Sex Assigned at Date Recorded Not on file documented as of this encounter Nursing Notes Vivien Johns - 08/07/2012 11:53 AM CDT will hand carry to [facility] today . Dawn Rodriguez MD - 08/07/2012 10:23 AM CDT Ok for valium prn Mayi Lopez - 08/07/2012 9:29 AM CDT Patient has not seen Dr. Coats since 09/2011. Will forward to covering provider for advice. Kisha Waters - 08/07/2012 9:19 AM CDT Pt needs an order for oral sedation for a MRI possible for tomorrow or next week documented in this encounter Plan of Treatment Not on filedocumented as of this encounter Visit Diagnoses Not on filedocumented in this encounter Care Teams Rn Eligibility Relationship Specialty Start Date End Date Po Coats MD PCP - General 08/07/12 [id number] [address] [place] [id number] documented as of this encounter
--- OUTSIDE RECORDS SUMMARY | 2022-01-20 08:17 | XMS_ITS | Encounter Summary ---
:1950 Author Organization [employer] Address [address], [place] [address] Care Team Providers Name Role Phone Carlos Solorio MD Primary Care Provider Reason for Visit Reason Comments Shoulder Problem Encounter Details Date Type Department Care Team Description 06/19/2011 Office Visit [place] [facility] Masoud Flores in joint, shoulder region (Primary Dx); Therapy J, PT Rotator cuff (capsule) sprain; [address] [address] [facility] [place] [address] [place], [place] [phone] (Wo rk) Social History Tobacco Use Types Packs/Day Years Used Date Smoking Tobacco: Never Assessed Sex Assigned at Date Recorded Not on file documented as of this encounter Progress Notes Masoud Flores, PT - 06/19/2011 7:50 AM CST [facility] Progress Note Visit Number: 15 Plan of Care/Certification Period: 90 days - 04/23/11 to 07/25/11 Referring Provider: Sawyer Hemphill MD Diagnosis: Right Rotator Cuff Tear Orders: Evaluate and treat. Standard Rotator Cuff Repair Protocol. Date of Onset: 16 months 09/13/2009 approximate Date of Surgery: 04/27/11 SUBJECTIVE: sore in the anterior right shoulder after reaching behind back. OBJECTIVE: PROM in supine: right shoulder flexion 165 degrees, IR 90 degrees, ER 75-80 degrees at 45 degrees ABD, arm by side70, abduction 165 degrees. TREATMENT TODAY: -PROM stretching to right shoulder in all directions with mild end range stretch within pain tolerance, increased muscle guarding noted. -Gentle grade I oscillations to promote relaxation of shoulder, several verbal cues for relaxation and deep breathing to help promote relaxation. ER wall with arm by side 4 x 30 FF passive on table 1 x 5 sleeper IR stretch and towel stretch. added isometric 1 x 10 no pain ASSESSMENT: ROM improving weekly. No pain with isometrci PLAN: Continue with Passive Range of Motion and progress through protocol as appropriate.1x/week. added AROM as toelrated Procedures: Manual Therapy: 5 minutes Therapeutic exercise: 25 minutes Total Treatment Time: 30 minutes Therapist: Masoud Flores PT, [facility], [id number] documented in this encounter Plan of Treatment Not on filedocumented as of this encounter Visit Diagnoses Diagnosis Pain in joint, shoulder region - Primary Rotator cuff (capsule) sprain Unspecified orthopedic aftercare documented in this encounter Care Teams Lieutenant Governor Relationship Specialty Start Date End Date Carlos Solorio MD PCP - General 07/17/10 08/06/12 [address] [place] [address] documented as of this encounter
--- OUTSIDE RECORDS SUMMARY | 2022-01-20 08:17 | XMS_ITS | Encounter Summary ---
:1950 Author Organization [email or web address] Address [address] [place] [address] Care Team Providers Name Role Phone Carlos Solorio MD Primary Care Provider Encounter Details Date Type Department Care Team Description 10/13/2010 PN Conversion [place] [address] [place] [address] Social History Tobacco Use Types Packs/Day Years Used Date Smoking Tobacco: Never Assessed Sex Assigned at Date Recorded Not on file documented as of this encounter Plan of Treatment Not on filedocumented as of this encounter Procedures Procedure Name Priority Date/Time Associated Diagnosis Comme nts MR SHOULDER RT WO Routine 10/13/2010 12:38 PM Res ults for this IV CONT CDT procedure are i n the results section. CT PRE-MRI METAL Routine 10/13/2010 11:50 AM Resu lts for this CHECK CDT procedure are i n the results section. documented in this encounter Results MR Shoulder Rt WO IV Cont (10/13/2010 12:38 PM CDT) Anatomical Region Laterality Modality Shoulder, Skeletal, Arm, Upper Extremity, Other Right Other Specimen (Source) Anatomical Location Collection Method / Collectio n Time Received Time / Laterality Volume Impressions 10/13/2010 12:38 PM CDT : 1. Full thickness rotator cuff tear, mos t likely in the anterior aspect of the infraspinatus tendon, span man approximately 1.2 cm AP, with approximately 0.8 cm of retraction. 2. Most likely supraspinatus and subscap ularis tendinopathy. 3. Most likely biceps tendinopathy. 4. AC joint arthrosis. 5. Small fluid signal in the subacromial -subdeltoid bursa. Dictating RIKI MURILLO RADIOLOGIST Narrative 10/13/2010 12:38 PM CDT COMPARISON: None. TECHNIQUE: MRI of the right shoulder was performed without contrast. FINDINGS: There is a full thickness rota tor cuff tear, probably involving the anterior aspect of the inf raspinatus tendon, spanning approximately 1.2 cm AP, seen for exampl e on sagittal series 7 and 9, images 6 and 7, with a small amount of r etraction, up to approximately 0.8 cm, seen for example o n coronal series 5 and 6, images 12 through 14. ??No significant r otator cuff muscle atrophy. There is increased signal in the subscap ularis tendon, superiorly, and in the subscapularis tendon, most li layton due to areas of tendinopathy. ??The remainder of the rot ator cuff is unremarkable. The acromion downslopes laterally. ??The re is bony irregularity along the undersurface of the acromion near th e acromioclavicular joint. There is a moderate AC joint arthrosis, with some mild hypertrophic change off the distal clavicle. ??No os acromiale. ??Small fluid within the subacromial-subdeltoid bursa. ??No s ignificant glenohumeral joint effusion. ??The labrum appears grossly i ntact. ??The glenohumeral joint articular surface is grossly well preser jason. ??The intra and extra-articular portions of the long hea d of the biceps tendon have a thickened appearance with increased intr asubstance signal, compatible with tendinopathy. ??The long head of th e biceps tendon is in its expected location. Procedure Note Riki Timmons MD - 09/30/2015For matting of this note might be different from the original. COMPARISON: None. TECHNIQUE: MRI of the right shoulder was performed without contrast. FINDINGS: There is a full thickness rota tor cuff tear, probably involving the anterior aspect of the inf raspinatus tendon, spanning approximately 1.2 cm AP, seen for exampl e on sagittal series 7 and 9, images 6 and 7, with a small amount of r etraction, up to approximately 0.8 cm, seen for example o n coronal series 5 and 6, images 12 through 14. No significant rot ator cuff muscle atrophy. There is increased signal in the subscap ularis tendon, superiorly, and in the subscapularis tendon, most li layton due to areas of tendinopathy. The remainder of the rotat or cuff is unremarkable. The acromion downslopes laterally. There is bony irregularity along the undersurface of the acromion near th e acromioclavicular joint. There is a moderate AC joint arthrosis, with some mild hypertrophic change off the distal clavicle. No os ac romiale. Small fluid within the subacromial-subdeltoid bursa. No sig nificant glenohumeral joint effusion. The labrum appears grossly int act. The glenohumeral joint articular surface is grossly well preser jason. The intra and extra-articular portions of the long hea d of the biceps tendon have a thickened appearance with increased intr asubstance signal, compatible with tendinopathy. The long head of the biceps tendon is in its expected location. IMPRESSION : 1. Full thickness rotator cuff tear, mos t likely in the anterior aspect of the infraspinatus tendon, span man approximately 1.2 cm AP, with approximately 0.8 cm of retraction. 2. Most likely supraspinatus and subscap ularis tendinopathy. 3. Most likely biceps tendinopathy. 4. AC joint arthrosis. 5. Small fluid signal in the subacromial -subdeltoid bursa. Dictating RIKI MURILLO RADIOLOGIST Asa B Kanchan [facility] MRI CT Pre-MRI Metal Check (10/13/2010 11:50 AM CDT) Anatomical Region Laterality Modality Head Other Specimen (Source) Anatomical Location Collection Method / Collectio n Time Received Time / Laterality Volume Impressions 10/13/2010 11:50 AM CDT : No metallic foreign body is identified in either orbit. Lobulated density in the left maxillary antrum most likely represents a mucous retention cyst. Dictating RIKI MURILLO RADIOLOGIST Procedure Note Riki Timmons MD - 09/30/2015For matting of this note might be different from the original. IMPRESSION : No metallic foreign body is identified in either orbit. Lobulated density in the left maxillary antrum most likely represents a mucous retention cyst. Dictating RIKI MURILLO RADIOLOGIST Sawyer Hemphill MD RAD CT documented in this encounter Visit Diagnoses Not on filedocumented in this encounter Care Teams Services Advisor Relationship Specialty Start Date End Date Carlos Solorio MD PCP - General 07/17/10 08/06/12 [id number] [place] [id number] documented as of this encounter
--- OUTSIDE RECORDS SUMMARY | 2022-01-20 08:17 | XMS_ITS | Encounter Summary ---
:1950 Author Organization [employer] Address [address] [address] Care Team Providers Name Role Phone Carlos Solorio MD Primary Care Provider Reason for Visit Reason Comments Dysuria Encounter Details Date Type Department Care Team Description 07/26/2011 Initial Consult [facility] Stephanie Coulter, Urinary tract [address] [facility] infection, [place] [address] [address] [facility] specified (Primary [phone] Dx) [place] [address] Social History Tobacco Use Types Packs/Day Years Used Date Smoking Tobacco: Never Assessed Sex Assigned at Date Recorded Not on file documented as of this encounter Last Filed Vital Signs Vital Sign Reading Time Taken Comments Blood Pressure 142/86 07/26/2011 8:40 AM CDT Pulse 88 07/26/2011 8:40 AM CDT Temperature - - Respiratory Rate 16 07/26/2011 8:40 AM CDT Oxygen Saturation - - Inhaled Oxygen Concentration - - Weight - - Height - - Body Mass Index - - documented in this encounter Progress Notes Stephanie Coulter MD - 07/26/2011 10:26 AM CDT Urology Consult Chief complaint: UTI HPI: Raul Dickson is a 60 y.o. male with a history of 2 UTIs in the last 3 months. The pt developedsevere pain with urination, and hematuria. He also is passing pieces of tissue when he had a urinarytract infection. Currently the patient does not have any symptoms. The culture showed that he had pansensitive E. Coli in his urine both times. The first culture was in May, the second culture wasearlier this month. The symptoms improved with antibiotics. The patient states that he has had symptoms of urinary tract infections on and off for the last 10 years. He has had a couple of other cultures that were essentially negative. The patient has some significant lower urinary tract symptoms. He states that he does not have a very strong stream and neverhad a very strong stream. He oftentimes double voids, he has nocturia 2-3 times per night. He has nohistory of retention of urine , no history of diabetes, no history of flank pain. He thinks he may have passed kidney stones in the past . He thinks the last time may have been 10 years ago. Clinic UA: Blood negative, and nitrate negative, trace amount leukocyte esterase. PVR: 44 ml Review of systems: No chest pain, no shortness of breath, the rest of the complete review of systemsother than what is stated in the HPI is negative PMH: Patient Active Problem List Diagnoses Code ??? 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 Current outpatient prescriptions Medication Sig Dispense Refill ??? finasteride (PROSCAR) 5 mg tablet Take 1 tablet by mouth daily (every 24 hours). Indications: BENIGN PROSTATIC HYPERTROPHY 90 tablet 3 ??? DISCONTD: finasteride (PROSCAR) 5 mg tablet Take 1 tablet by mouth daily (every 24 hours). Indications: BENIGN PROSTATIC HYPERTROPHY 90 tablet 3 ??? nitrofurantoin, macrocrystal-monohydrate, (MACROBID) 100 mg capsule Take 1 capsule by mouth oncefor 1 dose. 1 capsule 0 ??? tamsulosin (FLOMAX) 0.4 mg 24 hr capsule Take 1 capsule by mouth nightly. 90 capsule 3 ??? DISCONTD: tamsulosin (FLOMAX) 0.4 mg 24 hr capsule Take 1 capsule by mouth nightly. 90 capsule 3 Current facility-administered medications Medication Dose Route Frequency Provider Last Rate Last Dose ??? lidocaine (XYLOCAINE URO-JET) 2 % jelly 10 mL 10 mL Urethral Once Stephanie Coulter MD ??? DISCONTD: nitrofurantoin (macrocrystal-monohydrate) (MACROBID) 100 mg capsule 100 mg 100 mg OralOnce Stephanie Coulter MD No Known Allergies VS:BP 142/86 Pulse 88 Resp 16 General: Comfortable, alert, awake, oriented Psych: Judgment and insight intact Oriented to time, place and person Resp: no wheezing, normal resp effort Abdomen: soft, nontender, nondistended, no masses No hepato/splenomegaly No obvious hernias Back: no CVA tenderness Skin: warm, dry and intact Gait: normal gait Extremities: no swelling External genitalia: Within normal limits Urethral meatus: normal anatomic position Penis: normal Scrotum: normal Prostate: smooth, nontender, no nodules, appropriate size for age Procedure: Cystoscopy Patient was taken to the cystoscopy suite. The genitalia were prepped in the standard fashion. The 18 Kittitian flexible cystoscope was placed in the urethra. The patient has evidence of a stricture distal to the prostatic urethra an area of the bulbar urethra . This was not particularly tight and it actually looked like there was 2 different veils of tissue coming from each lateral side that overlaps some . I was able to get the cystoscope through this area without any significant difficulty. The patient also had some evidence of benign prostatic hyperplasia with bilateral lobar intrusion of the prostatic urethra. He had a median lobe that was also appreciated that was moderate in size. The rest of the bladder had some mild erythema which is reminiscent of a recent urinary tract infection. No tumors or stones. Nothing suspicious for cancer. Assessment: Urethral stricture Benign prostatic hyperplasia Plan: I had a good discussion with patient about how he should be treated. At this point the stricture isopen and should not be causing a significant problem, however I think the combination of the stricture and benign prostatic hyperplasia may have been the cause of the patient's urinary tract infection.I discussed with him attempting to treat the benign prostatic hyperplasia with medications and then if he continues to have problems we should try to treat the stricture. The patient will be started on finasteride and Flomax. The patient will follow up with me in 6 months, at that time we will get a AUA symptom score, uroflow, and PVR. He will call me if he has any symptoms of a UTI. Stephanie Coulter MD documented in this encounter Plan of Treatment Not on filedocumented as of this encounter Procedures Procedure Name Priority Date/Time Associated Diagnosis Comme nts POCT URINALYSIS UROLOGY Routine 07/26/2011 8:38 AM CDT Urinary tract infection, site not specified documented in this encounter Results POCT URINALYSIS UROLOGY (07/26/2011 8:38 AM CDT) P athologist Signature See SDOC HP CONVERSION Specimen (Source) Anatomical Collection Method Collection Time Re ceived Time Location / / Volume Laterality 07/26/2011 8:38 AM CDT Stephanie Coulter MD PN POINT OF CARE TESTS Performing Organization Address City/State/ZIP Code Phon e Number HP CONVERSION documented in this encounter Visit Diagnoses Diagnosis Urinary tract infection, site not specif ied - Primary documented in this encounter Care Teams Director Of Regulatory Affairs Relationship Specialty Start Date End Date Carlos Solorio MD PCP - General 07/17/10 08/06/12 [address] [address] [place] Mcdonough [id number] documented as of this encounter
--- OUTSIDE RECORDS SUMMARY | 2022-01-20 08:17 | XMS_ITS | Encounter Summary ---
:1950 Author Organization [employer] Address [address], [place] [address] Care Team Providers Name Role Phone Carlos Solorio MD Primary Care Provider Reason for Visit Reason Comments Shoulder Problem Encounter Details Date Type Department Care Team Description 05/28/2011 Office Visit [facility] Masoud Flores in joint, shoulder region (Primary Dx); Therapy J, PT Sprain and strain of other specified sit es of shoulder and upper arm; [address] [address] [address] [facility] [place] [address] [place], [place] [phone] (Wo rk) Social History Tobacco Use Types Packs/Day Years Used Date Smoking Tobacco: Never Assessed Sex Assigned at Date Recorded Not on file documented as of this encounter Progress Notes Masoud Flores, PT - 05/28/2011 8:32 AM CST [facility] Physical Therapy Progress Note Visit Number: 10 Plan of Care/Certification Period: 90 days - 04/23/11 to 07/25/11 Referring Provider: Sawyer Hemphill MD Diagnosis: Right Rotator Cuff Tear Orders: Evaluate and treat. Standard Rotator Cuff Repair Protocol. Date of Onset: 16 months 09/13/2009 approximate Date of Surgery: 04/27/11 SUBJECTIVE: Sore today, not sure why OBJECTIVE: PROM in supine: right shoulder flexion 140 degrees, IR 70 degrees, ER 50-60 degrees, abduction 130-140 degrees. TREATMENT TODAY: -PROM stretching to right shoulder in all directions with mild end range stretch within pain tolerance, increased muscle guarding noted. -Gentle grade I oscillations to promote relaxation of shoulder, several verbal cues for relaxation and deep breathing to help promote relaxation. ER wall with arm by side 4 x 30 FF passive on table will ice at home ASSESSMENT: Toelrated treatment well, ROM increasing slowly no change today PLAN: Continue with Passive Range of Motion and progress through protocol as appropriate. Procedures: Manual Therapy: 5 minutes Therapeutic exercise: 20 minutes Total Treatment Time: 35 minutes Therapist: Masoud Flores PT, OCS, #[id number] documented in this encounter Plan of Treatment Not on filedocumented as of this encounter Visit Diagnoses Diagnosis Pain in joint, shoulder region - Primary Sprain and strain of other specified sit es of shoulder and upper arm Unspecified orthopedic aftercare documented in this encounter Care Teams Rod Puller And Coiler Relationship Specialty Start Date End Date Carlos Solorio MD PCP - General 07/17/10 08/06/12 [address] [place] [address] documented as of this encounter
--- OUTSIDE RECORDS SUMMARY | 2022-01-20 08:17 | XMS_ITS | Encounter Summary ---
:1950 Author Organization [employer] Address [address] [address] Care Team Providers Name Role Phone Carlos Solorio MD Primary Care Provider Reason for Visit Reason Comments PRE-OP EXAM Encounter Details Date Type Department Care Team Description 04/23/2011 Pre-Op Visit [facility] Po Coats, Scout e-op exam (Primary Medicine Dx) [address] [place] [address] [place], [place] [phone] (Wo rk) Social History Tobacco Use Types Packs/Day Years Used Date Smoking Tobacco: Never Assessed Sex Assigned at Date Recorded Not on file documented as of this encounter Last Filed Vital Signs Vital Sign Reading Time Taken Comments Blood Pressure 136/78 04/23/2011 9:42 AM PROJECT MANAGER RETAIL Pulse 74 04/23/2011 9:42 AM PROJECT MANAGER RETAIL Temperature - - Respiratory Rate 20 04/23/2011 9:42 AM PROJECT MANAGER RETAIL Oxygen Saturation - - Inhaled Oxygen Concentration - - Weight 110.7 kg (244 lb) 04/23/2011 9:42 AM PROJECT MANAGER RETAIL Height 171.5 cm (5' 7.5) 04/23/2011 9:42 AM PROJECT MANAGER RETAIL Body Mass Index 37.65 04/23/2011 9:42 AM PROJECT MANAGER RETAIL documented in this encounter OR Notes H&P - Po Coats MD - 04/23/2011 10:58 AM CST 60 y.o. patient presents to clinic for pre-op clearance. Please see paper pre-op H&P for full details. documented in this encounter Plan of Treatment Not on filedocumented as of this encounter Procedures Procedure Name Priority Date/Time Associated Comments Diagnosis ECG 12 LEAD Routine 04/23/2011 10:25 AM Pre-op exam Results for this OUTPATIENT PROJECT MANAGER RETAIL procedure are i n the results section. documented in this encounter Results ECG 12 Lead Outpatient (04/23/2011 10:25 AM PROJECT MANAGER RETAIL) P athologist Signature Ventricular Rate 69 BPM [facility] Atrial Rate 69 BPM [facility] P-R Interval 154 ms [facility] QRS Duration 72 ms [facility] QT 390 ms [facility] QTc 417 ms [facility] P Makanda 33 degrees [facility] R Makanda -36 degrees [facility] T Makanda -11 degrees [facility] Specimen (Source) Anatomical Collection Method Collection Time Re ceived Time Location / / Volume Laterality 04/23/2011 10:25 AM PROJECT MANAGER RETAIL Narrative [facility] - 07/21/2019 4:19 PM CDT Sinus rhythm Left axis deviation Nonspecific T wave abnormality Abnormal ECG No previous ECGs available Procedure Note Epic, Internal Processing - 07/25/2019Fo rmatting of this note might be different from the original. Sinus rhythm Left axis deviation Nonspecific T wave abnormality Abnormal ECG No previous ECGs available Po Coats MD PN ECG ORDERABLES Performing Organization Address City/State/ZIP Code Phon e Number [facility] [address] [place] [address] documented in this encounter Visit Diagnoses Diagnosis Pre-op exam - Primary Preoperative examination, unspecified documented in this encounter Care Teams Fast Food Crew Member Relationship Specialty Start Date End Date Carlos Solorio MD PCP - General 07/17/10 08/06/12 [address] [place]on[place] [phone] documented as of this encounter
--- OUTSIDE RECORDS SUMMARY | 2022-01-20 08:17 | XMS_ITS | Encounter Summary ---
:1950 Author Organization [employer] Address [address], [place] [address] Care Team Providers Name Role Phone Carlos Solorio MD Primary Care Provider Reason for Visit Reason Comments Shoulder Problem Encounter Details Date Type Department Care Team Description 06/27/2011 Office Visit [facility] Masoud Flores in joint, shoulder region (Primary Dx); Therapy J, PT Rotator cuff (capsule) sprain; [address] [address] [address] [facility] [place] [address] [place], [place] [phone] (Wo rk) Social History Tobacco Use Types Packs/Day Years Used Date Smoking Tobacco: Never Assessed Sex Assigned at Date Recorded Not on file documented as of this encounter Progress Notes Masoud Flores, PT - 06/27/2011 8:09 AM CDT [facility] Physical Therapy Progress Note Visit Number: 15 Plan of Care/Certification Period: 90 days - 04/23/11 to 07/25/11 Referring Provider: Sawyer Hemphill MD Diagnosis: Right Rotator Cuff Tear Orders: Evaluate and treat. Standard Rotator Cuff Repair Protocol. Date of Onset: 16 months 09/13/2009 approximate Date of Surgery: 04/27/11 SUBJECTIVE:Bruising in the anterior shoudler but min pian. Last week had a pull whiel wiping butt and had anterior shoulder pain. Better this week but brusie noted. Possible Biceps tendon iinjury? toldto monitor since he wasn't having pain. OBJECTIVE: PROM in supine: right shoulder flexion 170 degrees, IR 90 degrees, ER 75-80 degrees at 45 degrees ABD, arm by side 70, abduction 165 degrees. TREATMENT TODAY: -PROM stretching [...] 5 sleeper IR stretch and towel stretch. ER 2# 1 x 10, FF lift off 1 x 10 ASSESSMENT: ROM improving weekly. toelrated PREs well. PLAN: Continue with Passive Range of Motion and progress through protocol as appropriate.1x/week. added AROM as toelrated Procedures: Manual Therapy: 5 minutes Therapeutic exercise: 25 minutes Total Treatment Time: 30 minutes Therapist: Masoud Flores PT, OCS, #[id number] documented in this encounter Plan of Treatment Not on filedocumented as of this encounter Visit Diagnoses Diagnosis Pain in joint, shoulder region - Primary Rotator cuff (capsule) sprain Unspecified orthopedic aftercare documented in this encounter Care Teams Gang Sawyer Relationship Specialty Start Date End Date Carlos Solorio MD PCP - General 07/17/10 08/06/12 [address] [place] [address] documented as of this encounter
--- OUTSIDE RECORDS SUMMARY | 2022-01-20 08:17 | XMS_ITS | Encounter Summary ---
:1950 Author Organization [place] Address [address], [place] [address] Care Team Providers Name Role Phone Carlos Solorio MD Primary Care Provider Encounter Details Date Type Department Care Team Description 09/29/2010 Office Visit [facility] Cathryn Garcia PA-C [address] [address] [place] [address] [phone] (Wo rk) Social History Tobacco Use Types Packs/Day Years Used Date Smoking Tobacco: Never Assessed Sex Assigned at Date Recorded Not on file documented as of this encounter Progress Notes Cathryn Dobbs PA-C - 09/29/2010 12:01 AM CDT Progress Notes signed by Cathryn Dobbs PA-C at 10/03/10 1600 Author: Cathryn Dobbs PA-C Service: (none) Author Type: Physician Chute Man Filed: 10/03/10 1618 Note Time: 09/29/10 0001 Status: Signed Dance Hall Hostess: Cathryn Dobbs PA-C (Physician Chute Man) NAME: NICOLETTE RICE MR#: [id number] ACCT: [id number] VISIT: [id number] DICTATING CLINICIAN: Cathryn Dobbs PA-C CONFIRM #: [id number] LOC: 502 CLINIC PROGRESS NOTE DATE OF VISIT: 09/29/2010 : 1950 Nicolette is a 60-year-old male who comes to the clinic today because of right shoulder pain that he has had for 3 to 4 weeks ever since he tried to start a garden tiller, and it kicked back on him. There was never any swelling. He has intermittent pain at times, finds it is too painful to abduct the shoulder. Other times it does not seem to bother him as much. The pain does not radiate. He uses Aleve p.r.n. which is helpful. 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 He has a remote history of shoulder bursitis 4 years ago. PAST MEDICAL HISTORY: Reviewed and updated in health profile in [employer] today. MEDICATIONS: Reviewed and updated in health profile in [employer] today. ALLERGIES: Reviewed and updated in health profile in [employer] today. OBJECTIVE: VITAL SIGNS: Weight 241.2, blood pressure 136/88, pulse 64. CONSTITUTIONAL: Sitting comfortably, appears well. Tenderness at the right shoulder, appears symmetrical with opposite side. There is no bony tenderness. He has good range of motion. He does have some discomfort at the extremes of abduction, internal and external rotation of the shoulder. Strength 5/5 upper extremity bilaterally. ASSESSMENT: Right shoulder pain, etiology unclear. PLAN: Obtain x-ray. Consider PT versus ortho consultation pending results. AMS:MEDQ C: CONFIRM #: [id number] documented in this encounter Plan of Treatment Not on filedocumented as of this encounter Procedures Procedure Name Priority Date/Time Associated Diagnosis Comme nts XR SHOULDER RT 2+ Routine 09/29/2010 8:46 AM Resu lts for this VIEWS CDT procedure are i n the results section. documented in this encounter Results XR Shoulder Rt 2+ Views (09/29/2010 8:46 AM CDT) Anatomical Region Laterality Modality Upper Extremity, Shoulder Other Specimen (Source) Anatomical Location Collection Method / Collectio n Time Received Time / Laterality Volume Narrative 09/29/2010 8:46 AM CDT Three-view right shoulder FINDINGS: ??Degenerative and hypertrophi c changes in the AC joint. Proliferative changes from the acromion distally. ??Mild proliferative changes off the greater tuberosity of th e humerus. ??Glenohumeral joint unremarkable. Dictating MASOUD CHAN A RADIOLOGIST Procedure Note Masoud Sheppard MD - 09/30/2015Format ting of this note might be different from the original. Three-view right shoulder FINDINGS: Degenerative and hypertrophic changes in the AC joint. Proliferative changes from the acromion distally. Mild proliferative changes off the greater tuberosity of th e humerus. Glenohumeral joint unremarkable. Dictating MASOUD CHAN A RADIOLOGIST Cathryn Dobbs PA-C RAD [facility] documented in this encounter Visit Diagnoses Not on filedocumented in this encounter Care Teams Trailer Mechanic Relationship Specialty Start Date End Date Carlos Solorio MD PCP - General 07/17/10 08/06/12 [address] [place]on[place] [address] documented as of this encounter
--- OUTSIDE RECORDS SUMMARY | 2022-01-20 08:17 | XMS_ITS | Encounter Summary ---
:1950 Author Organization [employer] Address [address], [place] [address] Care Team Providers Name Role Phone Carlos Solorio MD Primary Care Provider Reason for Visit Reason Comments Other Encounter Details Date Type Department Care Team Description 09/17/2011 Office Visit [facility] Po Coats, [facility] (Primary Dx); Medicine Need for shingles vaccine [address] [place] [address] [place], [place] [phone] (Wo rk) Social History Tobacco Use Types Packs/Day Years Used Date Smoking Tobacco: Never Assessed Sex Assigned at Date Recorded Not on file documented as of this encounter Last Filed Vital Signs Vital Sign Reading Time Taken Comments Blood Pressure 128/85 09/17/2011 9:37 AM CDT Pulse 72 09/17/2011 9:37 AM CDT Temperature - - Respiratory Rate 22 09/17/2011 9:37 AM CDT Oxygen Saturation - - Inhaled Oxygen Concentration - - Weight 112 kg (247 lb) 09/17/2011 9:37 AM CDT Height - - Body Mass Index 38.11 04/23/2011 9:42 AM EGG TRAYER documented in this encounter Progress Notes Po Coats MD - 09/17/2011 2:02 PM CDT Progress Notes signed by Po Coats MD at 09/20/11 1302 Author: Po Coats MD Service: (none) Author Type: Physician Filed: 09/20/11 1302 Note Time: 09/17/111401 Status: Signed Tire Fabricator: Po Coats MD (Physician) NAME: NICOLETTE RICE MR#: [id number] CSN: [id number] AUTHENTICATING CLINICIAN: Po Coats MD CONFIRM #: [id number] LOC: 506 CLINIC PROGRESS NOTE DATE OF VISIT: 09/17/2011 : 1950 SUBJECTIVE: Mr. Rice is a 61-year-old male who presents to clinic for evaluation of abnormal moles. The patient has a mole on his left chest and on his right lower back that he is concerned about. The patient states they are flesh- colored, but they seem to be growing. They are also very easily irritated in the areas that they are present. He would like to get them removed as he is concerned about them. PAST MEDICAL HISTORY: Reviewed and updated in the EMR. MEDICATIONS: Reviewed and updated in the EMR. ALLERGIES: Reviewed and updated in the EMR. SOCIAL HISTORY: The patient is a nonsmoker. REVIEW OF SYSTEMS: The patient otherwise feels well and has no acute concerns such as headaches, chest pain, shortness of breath, abdominal pain, nausea, vomiting, diarrhea. EXAMINATION: VITAL SIGNS: Please see EMR. In general, he is alert, oriented, and in no apparent distress. Skin examination confirms 2 flesh colored moles, 1 on his left chest and 1 on his right lower back. They do appear somewhat irritated. They otherwise has no abnormal colors. They are quite large and have and a polyp type formation to them. ASSESSMENT AND PLAN: Abnormal moles. We will refer to Dermatology for excision and possible biopsy. MTK:TENZIN C: CONFIRM #: [id number] documented in this encounter Plan of Treatment Not on filedocumented as of this encounter Visit Diagnoses Diagnosis Atypical moles - Primary Benign neoplasm of skin, site unspecifie d Need for shingles vaccine Need for prophylactic vaccination and in oculation against varicella documented in this encounter Care Teams Nurse Midwife Relationship Specialty Start Date End Date Malvey, Carlos J, MD PCP - General 07/17/10 08/06/12 [address] [place] Mcdonough [address] documented as of this encounter
--- OUTSIDE RECORDS SUMMARY | 2022-01-20 08:17 | XMS_ITS | Encounter Summary ---
:1950 Author [facility] Address [address], [place] [address] Care Team Providers Name Role Phone Carlos Solorio MD Primary Care Provider Reason for Visit Reason Comments Other Encounter Details Date Type Department Care Team Description 09/29/2010 Telephone [facility], Message Other [address] [place] [address] Social History Tobacco Use Types Packs/Day Years Used Date Smoking Tobacco: Never Assessed Sex Assigned at Date Recorded Not on file documented as of this encounter Progress Notes Gareth Govea PA-C - 09/29/2010 10:00 AM CDT Phone Note filed by Gareth Govea PA-C at 09/29/101610 Author: Gareth Govea PA-C Service: (none) Author Type: Physician Yarn Twister Filed: 09/29/101610 Note Time: 09/29/10 1000 Status: Addendum Operation Specialist: Gareth Govea PA-C (Physician Yarn Twister) Related Notes: Original Note by Angelica Abernathy (Physician) filed at 09/29/101610 I spoke with Raul about xray-no acute findings, just minimal degenerative change. See ortho (or PT first if he prefers). FYI. Created on 29Sep2010 10:00am by GARETH GOVEA On 29Sep2010 4:07pm FRANSISCO VILLALPANDO wrote: ok Acknowledged by FRANSISCO VILLALPANDO on 4:07pm ISION CROP MANAGER documented in this encounter Plan of Treatment Not on filedocumented as of this encounter Visit Diagnoses Not on filedocumented in this encounter Care Teams Swatch Clerk Relationship Specialty Start Date End Date Carlos Solorio MD PCP - General 07/17/10 08/06/12 [address] [place] [address] documented as of this encounter
--- OUTSIDE RECORDS SUMMARY | 2022-01-20 08:17 | XMS_ITS | Encounter Summary ---
:1950 Author Organization [facility] Address [address], [place] [address] Care Team Providers Name Role Phone Carlos Solorio MD Primary Care Provider Reason for Visit Reason Comments Shoulder Problem Encounter Details Date Type Department Care Team Description 06/04/2011 Office Visit [place] [facility] Masoud Flores in joint, shoulder region (Primary Dx); Therapy J, PT Rotator cuff (capsule) sprain; [address] [address] [address] Unspecified [place] [address] [place], [place] [phone] (Wo rk) Social History Tobacco Use Types Packs/Day Years Used Date Smoking Tobacco: Never Assessed Sex Assigned at Date Recorded Not on file documented as of this encounter Progress Notes Masoud Flores, PT - 06/04/2011 7:[address] [facility] Services Physical Therapy Progress Note Visit Number: 12 Plan of Care/Certification Period: 90 days - 04/23/11 to 07/25/11 Referring Provider: Sawyer Hemphill MD Diagnosis: Right Rotator Cuff Tear Orders: Evaluate and treat. Standard Rotator Cuff Repair Protocol. Date of Onset: 16 months 09/13/2009 approximate Date of Surgery: 04/27/11 SUBJECTIVE: Behind the back tough but seeign improvement. OBJECTIVE: PROM in supine: right shoulder flexion 155 degrees, IR 90 degrees, ER 75 degrees at 45 degrees ABD, arm by side 45, abduction 160 degrees. TREATMENT TODAY: -PROM stretching to right [...] 5 sleeper IR stretch and towel stretch. Cannot get arm past iliac crest ice 10' seated ASSESSMENT: ER a little tight today +, ROM improving weekly PLAN: Continue with Passive Range of Motion and progress through protocol as appropriate. 2x/week Procedures: Manual Therapy: 5 minutes Therapeutic exercise: 25 minutes ice 10 Total Treatment Time: 40 minutes Therapist: Masoud Flores PT, [facility], [id number] UER SHADER documented in this encounter Plan of Treatment Not on filedocumented as of this encounter Visit Diagnoses Diagnosis Pain in joint, shoulder region - Primary Rotator cuff (capsule) sprain Unspecified orthopedic aftercare documented in this encounter Care Teams Healthcare Science Specialist Relationship Specialty Start Date End Date Carlos Solorio MD PCP - General 07/17/10 08/06/12 [address] [place] [address] documented as of this encounter
--- OUTSIDE RECORDS SUMMARY | 2022-01-20 08:17 | XMS_ITS | Encounter Summary ---
:1950 Author Organization [email or web address] Address [address] [place] [address] Care Team Providers Name Role Phone Carlos Solorio MD Primary Care Provider Encounter Details Date Type Department Care Team Description 11/18/2009 PN Conversion Only [place] [address] [address] [place], [place] [id number] (Wo rk) Social History Tobacco Use Types Packs/Day Years Used Date Smoking Tobacco: Never Assessed Sex Assigned at Date Recorded Not on file documented as of this encounter Plan of Treatment Not on filedocumented as of this encounter Procedures Procedure Name Priority Date/Time Associated Diagnosis Comme nts STREP GROUP A Routine 11/18/2009 6:34 PM Results for this ANTIGEN TEST CDT procedure are i n the results section. BETA STREP FOLLOWUP Routine 11/18/2009 6:34 PM Re sults for this CDT procedure are i n the results section. documented in this encounter Results Strep Group A Antigen Test (11/18/2009 6:34 PM CDT) Analysis Performed At Patho logist Time Signature Strep Group A SEE TEXT HP CONVERSION Antigen Test Comment: RSS Rapid Strep Screen ? ORDERED BY: IVANNA BOURNE SOURCE: Throat ? COLLECTED: ??11/18/09 18:34 ? PLATED: ? 11/18/09 18:34 Rapid Strep Screen ? FINAL ? 11/18/09 19:38 ??Test performed by[facility] ? Negative for Streptococcus group A Specimen (Source) Anatomical Collection Method Collection Time Re ceived Time Location / / Volume Laterality 11/18/2009 6:34 PM CDT Ivanna Bourne MD LAB_1 Performing Organization Address City/[facility]/ZIP Code Phon e Number HP CONVERSION Beta Strep Followup (11/18/2009 6:34 PM CDT) P athologist Signature Strep Screen SEE TEXT HP CONVERSION Comment: CSSNC Culture Strep, Follow up from Rapid Test ? ORDERED BY: IVANNA BOURNE SOURCE: Throat ? COLLECTED: ??11/18/09 18:34 ? PLATED: ? 11/18/09 18:34 Culture Strep, Follow up from Rapid Test ?? FINAL ? 11/19/09 12:52 No beta hemolytic Strep Group A isolate d. Specimen (Source) Anatomical Collection Method Collection Time Re ceived Time Location / / Volume Laterality 11/18/2009 6:34 PM CDT Ivanna Bourne MD LAB_1 Performing Organization Address City/State/ZIP Code Phon e Number HP CONVERSION documented in this encounter Visit Diagnoses Not on filedocumented in this encounter Care Teams Embedded Software Manager Relationship Specialty Start Date End Date Carlos Solorio MD PCP - General 07/17/10 08/06/12 [address] [place] [address] documented as of this encounter
--- OUTSIDE RECORDS SUMMARY | 2022-01-20 08:17 | XMS_ITS | Encounter Summary ---
:1950 Author Organization [facility] Address [address] [address] Care Team Providers Name Role Phone Carlos Sloorio MD Primary Care Provider Reason for Visit Reason Comments Dysuria CONGESTION, NASAL Encounter Details Date Type Department Care Team Description 06/10/2011 Hospital Encounter [place] Xiang Phipps Dysuria; Brianna Romeo MD Urinary tract infection, site not specif ied [address] [address] [phone] Social History Tobacco Use Types Packs/Day Years Used Date Smoking Tobacco: Never Assessed Sex Assigned at Date Recorded Not on file documented as of this encounter Last Filed Vital Signs Vital Sign Reading Time Taken Comments Blood Pressure 146/80 06/10/2011 8:53 AM CONDUIT HELPER Pulse 108 06/10/2011 8:53 AM CONDUIT HELPER Temperature 36.7 ??C (98.1 ??F) 06/10/2011 8:53 AM CONDUIT HELPER Respiratory Rate 18 06/10/2011 8:53 AM CONDUIT HELPER Oxygen Saturation - - Inhaled Oxygen Concentration - - Weight - - Height - - Body Mass Index - - documented in this encounter Medications at Time of Discharge Medication Sig Dispensed Refills Start Date End Date ciprofloxacin (aka CIPRO) Take 1 tablet by 20 tablet 0 05/1706/20/2011 tablet mouth 2 times daily for 10 days. phenazopyridine (aka Take 1 tablet by 10 tablet 0 2 07/14/2011 PYRIDIUM) tablet mouth 3 times daily as needed for Pain. documented as of this encounter Progress Notes Pao Thomas RN - 06/10/2011 9:19 AM CONDUIT HELPER Quick Note: Urine culture came back positive. Patient on Cipro which is the correct medication per sensitivities. Patient informed of the results and to complete the full course of the abx even though he is feeling better. documented in this encounter ED Notes Xiang Phipps MD - 06/10/2011 9:19 AM CST Subjective: Patient ID: Raul Dickson is an 60 y.o. male. Chief Complaint: HPI Patient presents to urgent care noting symptoms of pain with voiding urine starting 2 days ago. Alsonoting increased frequency with urination and nocturia each one to 2 hours. Denies blood in the urine denies any pain into the back associated with symptoms. No fever or chills, no incontinence. Deniesdiarrhea or vomiting. Denies any typical nocturia excepting in the past 2 days with current symptoms. Describe some congested feeling in his head with some chills no cough or sore throat and no fever symptoms. Did have influenza vaccine for this season last summer. ROS Recent right shoulder surgery currently on therapy describes disrupted sleep with shoulder pain. Objective: BP 146/80 Pulse 108 Temp(Src) 36.7 ??C (98.1 ??F) (Oral) Resp 18 Physical Exam appearing well-nourished and hydrated. Conjunctiva are noninjected nonicteric. Nares without purulence, nontender over maxillary or frontal sinus. TMs without erythema or fluid. Neck supple without significant lymph node enlargement. Lungs clear to auscultation and percussion. No CVA tenderness by percussion. No suprapubic masses or tenderness. Procedures Lab: Urinalysis consistent with infection with positive night Treitz and greater than 100 WBCs, moderate bacteria. Culture and sensitivity ordered. Assessment: Diagnoses of Dysuria and Urinary tract infection, site not specified were pertinent to this visit. MDM Plan: Cipro 500 mg b.i.d. for 10 days. Reviewed increased liquids and discussed other symptomatic measures. Pyridium 200 mg # 10: one t.i.d. p.r.n. painful urination, cautioned regarding staining properties. If symptoms not resolved after treatment or other difficulties develop then recheck. documented in this encounter Miscellaneous Notes Miscellaneous - 06/10/2011 9:19 AM CSTNotes Recorded by Pao Thomas RN on 06/11/2011 at 4:25 PMUrine culture came back positive. Patient on Cipro which is the correct medication per sensitivities. Patient informed of the results and to complete the full course of the abx even though he is feeling better. UIT HELPER Medication History - Oscar Colón MD - 06/10/2011 9:19 AM CST INPATIENT MEDS Encounter Date: 06/10/11 ciprofloxacin (CIPRO) 500 mg tablet Start Date:06/10/11, End Date:06/20/11, Frequency:2 TIMES DAILY *No Administrations Recorded phenazopyridine (PYRIDIUM) 200 mg tablet Start Date:06/10/11, End Date:07/14/11, Frequency:3 TIMES DAILY PRN *No Administrations Recorded UIT HELPER documented in this encounter Plan of Treatment Not on filedocumented as of this encounter Procedures Procedure Name Priority Date/Time Associated Comments Diagnosis URINE CULTURE STAT 06/10/2011 9:19 AM Dysuria Results for this CONDUIT HELPER Urinary tract procedure are in infection, site not the resu lts specified section. URINE MICROSCOPIC STAT 06/10/2011 8:55 AM Dysuria Resu lts for this CONDUIT HELPER procedure are i n the results section. URINALYSIS STAT 06/10/2011 8:55 AM Dysuria Results f or this ROUTINE(MICRO IF POS) CONDUIT HELPER proced ure are in the results section. documented in this encounter Results Urine Culture (06/10/2011 9:19 AM CONDUIT HELPER) Component Value Ref Test Analysis Performed At [facility] Range Method Time Signature Urine Culture HP CONVERSION Urine Culture Escherichia coli HP CONVER DENIZ >100,000 cfu/ml Microbiology ESCHERICHIA HP CONVERSION Component COLI Comment: Escherichia coli Specimen (Source) Anatomical Collection Method Collection Time Re ceived Time Location / / Volume Laterality Urine:clean catch 06/10/2011 9:19 AM CONDUIT HELPER Transcriptions 06/10/2011 9:19 AM CSTNotes Recorded by Pao Thomas RN on 06/11/2011 at 4:25 PMUrine culture came back positive. Patient on Cipro which is the correct medication per sensitivities. Patient informed of the results and to complete the full course of the abx even though he is feeling better. Organism Antibiotic Method Susceptibility Escherichia coli Amikacin <=2: Sensitive Escherichia coli Ampicillin 4: Sensitive Escherichia coli Ampicillin/Sulbactam <=2: Sensi tive Escherichia coli Cefazolin <=4: Sensitive Escherichia coli Cefoxitin <=4: Sensitive Escherichia coli Ceftazidime <=1: Sensitive Escherichia coli Ceftriaxone <=1: Sensitive Escherichia coli Ciprofloxacin <=0.25: Sensiti ve Escherichia coli Ertapenem <=0.5: Sensitiv e Escherichia coli Gentamicin <=1: Sensitive Escherichia coli Imipenem <=1: Sensitive Escherichia coli Nitrofurantoin <=16: Sensitive Escherichia coli Tobramycin <=1: Sensitive Escherichia coli Trimethoprim/Sulfamethoxazole < =20: Sensitive Comment: ? ORDERED BY: XIANG PHIPPS SOURCE: Urine clean catch ?COLLECTED: ??06/10/11 09:19 ? PLATED: ? 06/10/11 09:21 Culture Urine ?FINAL ? 06/11/11 16:02 ? >100,000 cfu/ml Esche richia coli ?E.coli ? ANTIBIOTICS ?GEE ? ? INTRP ? Amikacin ? <=2 ? S ? Ampicillin ?4 ?S ? Ampicillin/sulbac ??<=2 ? S ? Cefazolin ?<=4 ? S ? Cefoxitin ?<=4 ? S ? Ceftazidime ?<=1 ? S ? Ceftriaxone ?<=1 ? S ? Ciprofloxacin ? <=0.25 ? ? S ? Ertapenem ? <=0.5 ?S ? Gentamicin ? <=1 ? S ? Imipenem ? <=1 ? S ? Nitrofurantoin ? <=16 ?S ? Tobramycin ? <=1 ? S ? Trimethoprim/Sulf ??<=20 ?S ? S=SUSCEPTIBLE I=INTERMEDIAT E R=RESISTANT NS=NON-SUSCEPTIBLE A GEE is generally regarded as the activity of an antimicrobial agent against ?? an organism. Clinically, the minimum inhi bitory concentrations ??are used to determine ??the ?? amount of antibiotic that th e patient will receive. Please consult an Infectious Disease Specialist with questions. Xiang Phipps MD LAB_1 Performing Organization Address City/State/ZIP Code Phon e Number HP CONVERSION (ABNORMAL) URINE MICROSCOPIC (06/10/2011 8:55 AM CONDUIT HELPER) [facility] Method Time Signature Urine WBC >100 (H) 0 - 4 HP CONVERSION /HPF Urine RBC 10-24 (A) 0 - 2 HP CONVERSION /HPF Bacteria Urine Moderate (A) /HPF HP CONVERSIO N Epithelial Few /HPF HP CONVERSION Cells Specimen Anatomical Collection Method Collection Time Receive d Time (Source) Location / / Volume Laterality 06/10/2011 8:55 AM 2 9:02 CONDUIT HELPER AM CONDUIT HELPER Narrative HP CONVERSION - 06/10/2011 9:11 AM CONDUIT HELPER Performed at [facility], [address] [place] [address] Shawn Reid DO LAB_1 Performing Organization Address City/State/ZIP Code Phon e Number HP CONVERSION (ABNORMAL) URINALYSIS ROUTINE(MICRO IF POS) (06/10/2011 8:55 AM CONDUIT HELPER) [facility] Method Time Signature Urine Type Urine:clean HP CONVERSION cat Turbidity Sl Cloudy Clear HP CONVERSION (A) U BILI Negative Negative HP CONVERSION Blood Urine Large (A) Negative HP CONVERSION Glucose, Negative Neg-30 HP CONVERSION Qualitative U mg/dL Ketones 15 (A) Negative HP CONVERSION Leukocyte Small (A) Negative HP CONVERSION Esterase Urine Nitrite Urine Positive Negative HP CONVERSION (A) pH Urine 6.0 5.0 - 8.0 HP CONVERSION Protein Urine 30 (A) Neg - Trace HP CONVERSION mg/dL U Specific >=1.030 1.005 - HP CONVERSION Bradford 1.030 Urobilinogen Negative Negative HP CONVERSION Urine Eu/dL Specimen Anatomical Collection Method Collection Time Receive d Time (Source) Location / / Volume Laterality 06/10/2011 8:55 AM 2 9:02 CONDUIT HELPER AM CONDUIT HELPER Narrative HP CONVERSION - 06/10/2011 9:11 AM CONDUIT HELPER Performed at [facility], [address] [place] [address] Shawn Reid DO LAB_1 Performing Organization Address City/State/ZIP Code Phon e Number HP CONVERSION documented in this encounter Visit Diagnoses Diagnosis Dysuria Urinary tract infection, site not specif ied documented in this encounter Care Teams Bit Grinder Relationship Specialty Start Date End Date Carlos Solorio MD PCP - General 07/17/10 08/06/[id number] [place] [address] [place] [address] documented as of this encounter
--- OUTSIDE RECORDS SUMMARY | 2022-01-20 08:17 | XMS_ITS | Encounter Summary ---
:1950 Author Organization [facility] Address [address], [place] [address] Care Team Providers Name Role Phone Carlos Solorio MD Primary Care Provider Reason for Visit Reason Comments Shoulder Problem Encounter Details Date Type Department Care Team Description 05/31/2011 Office Visit [place] [facility] Masoud Flores in joint, shoulder region (Primary Dx); Therapy J, PT Rotator cuff (capsule) sprain; [address] [address] [address] [place] [address] [place], [place] [phone] (Wo rk) Social History Tobacco Use Types Packs/Day Years Used Date Smoking Tobacco: Never Assessed Sex Assigned at Date Recorded Not on file documented as of this encounter Progress Notes Masoud Flores, PT - 05/31/2011 8:16 AM CST [facility] Services Physical Therapy Progress Note Visit Number: 11 Plan of Care/Certification Period: 90 days - 04/23/11 to 07/25/11 Referring Provider: Sawyer Hemphill MD Diagnosis: Right Rotator Cuff Tear Orders: Evaluate and treat. Standard Rotator Cuff Repair Protocol. Date of Onset: 16 months 09/13/2009 approximate Date of Surgery: 04/27/11 SUBJECTIVE: Better, uysign arm a little more and seeing some upper trap soreness. Instructed in not using arm and pain is form substituion. OBJECTIVE: PROM in supine: right shoulder flexion 150 degrees, IR 70 degrees, ER 65 degrees at 45 degrees ABD, arm by side 45, abduction 150 degrees. TREATMENT TODAY: -PROM stretching to right shoulder in all directions with mild end range stretch within pain tolerance, increased muscle guarding noted. -Gentle grade I oscillations to promote relaxation of shoulder, several verbal cues for relaxation and deep breathing to help promote relaxation. ER wall with arm by side 4 x 30 FF passive on table 1 x 5 added sleeper IR stretch and towel stretch. Cannot get arm past iliac crest ice 10' seated ASSESSMENT: Toelrated treatment well, ROM increasing slowly better ROm today PLAN: Continue with Passive Range of Motion and progress through protocol as appropriate. 2x/week Procedures: Manual Therapy: 5 minutes Therapeutic exercise: 25 minutes ice 10 Total Treatment Time: 40 minutes Therapist: Masoud Flores PT, [facility], #[id number] documented in this encounter Plan of Treatment Not on filedocumented as of this encounter Visit Diagnoses Diagnosis Pain in joint, shoulder region - Primary Rotator cuff (capsule) sprain Unspecified orthopedic aftercare documented in this encounter Care Teams Barbed Wire Machine Operator Relationship Specialty Start Date End Date Carlos Solorio MD PCP - General 07/17/10 08/06/[address] [place] [id number] documented as of this encounter
--- OUTSIDE RECORDS SUMMARY | 2022-01-20 08:17 | XMS_ITS | Encounter Summary ---
:1950 Author Organization [facility] Address [address] [address] Care Team Providers Name Role Phone Carlos Solorio MD Primary Care Provider Encounter Details Date Type Department Care Team Description 10/09/2010 Office Visit [facility] [place] [address] [facility] [address] [place] [address] [place] [address] [phone] Social History Tobacco Use Types Packs/Day Years Used Date Smoking Tobacco: Never Assessed Sex Assigned at Date Recorded Not on file documented as of this encounter Progress Notes Sawyer Hemphill MD - 10/09/2010 12:01 AM CDT Progress Notes signed by Sawyer Hemphill MD at 10/11/10817 Author: Sawyer Hemphill MD Service: (none) Author Type: Physician Filed: 10/11/10821 Note Time: 10/09/10 0001 Status: Signed Hairmasters Manager: Sawyer Hemphill MD (Physician) NAME: NICOLETTE RICE MR#: [id number] ACCT: [id number] VISIT: [id number] DICTATING CLINICIAN: Sawyer Hemphill MD CONFIRM #: [id number] LOC: 511 CLINIC PROGRESS NOTE DATE OF VISIT: 10/09/2010 : 1950 Mr. Rice is a 60-year-old gentleman being seen today for chronic right shoulder pain for the last 10 months with progressed worsening. The pain is in the superior and upper lateral aspect. He has noted the pain related to forward elevation, reaching behind. He has been having difficulty of sleeping on that shoulder. He has been losing sleep because of that. He has noted some tingling at times. He has a remote injury of 45 years ago but not recently. He is right-hand dominant. PAST MEDICAL HISTORY: Unremarkable in terms of medical problems. MEDICATIONS: Updated on the LastWord. MEDICATION ALLERGIES: None. PRIOR OPERATIONS: None. FAMILY HISTORY: Father and grandmother with a history of cancer. SOCIAL HISTORY: , has 2 children. Nonsmoker. Drinks alcohol occasionally. 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 REVIEW OF SYSTEMS: Negative for cardiac, respiratory, hematologic, GI, systems. OBJECTIVE: Alert, oriented male who is not in acute distress. He has full range of motion of the cervical spine. Both shoulders have full range of motion passively as well as actively. Impingement sign is positive. Arm drop test is negative, however, he has weakness of external rotation against resistance. Elbow range of motion is full. AC joint is not particularly prominent. X-rays reviewed and he has moderate AC joint DJD, subacromial bone spur, and type 3 acromion. No significant proximal migration of the humeral head is noted. ASSESSMENT: Chronic impingement syndrome, acromioclavicular joint degenerative joint disease, probable rotator cuff tear. PLAN: Because of the weakness and pain that has been chronic with obvious type 3 acromion and advanced AC joint causing chronic impingement syndrome we recommend MRI scan evaluation. We talked about possibility of surgical intervention versus cortisone injection. After reviewing the plain x-ray findings MRI scan was set up. He will be seen to discuss the situation further. All the questions were answered. CC: GARETH GOVEA PA-C [id number] [place] [address] ABK:MEDQ C: CONFIRM #: [id number] documented in this encounter Plan of Treatment Not on filedocumented as of this encounter Visit Diagnoses Not on filedocumented in this encounter Care Teams Investment Banking Manager Relationship Specialty Start Date End Date Carlos Solorio MD PCP - General 07/17/10 08/06/12 [address] [place] [place] [id number] documented as of this encounter
--- OUTSIDE RECORDS SUMMARY | 2022-01-20 08:17 | XMS_ITS | Encounter Summary ---
:1950 Author Organization [facility] Address [address] [address] Care Team Providers Name Role Phone Carlos Solorio MD Primary Care Provider Reason for Visit Reason Comments IMMUNIZATIONS Encounter Details Date Type Department Care Team Description 12/12/2011 [facility] Vaccin strep pneumoniae; Medicine Need for prophylactic vaccin ation and inoculation against influenza [address] [place] [address] Social History Tobacco Use Types Packs/Day Years Used Date Smoking Tobacco: Never Assessed Sex Assigned at Date Recorded Not on file documented as of this encounter Plan of Treatment Not on filedocumented as of this encounter Visit Diagnoses Diagnosis Need for prophylactic vaccination agains t Streptococcus pneumoniae (pneumococcus) Need for prophylactic vaccination agains t streptococcus pneumoniae (pneumococcus) Need for prophylactic vaccination and in oculation against influenza documented in this encounter Care Teams Iso Coordinator Relationship Specialty Start Date End Date Carlos Solorio MD PCP - General 07/17/10 08/06/12 [address] [place] [address] documented as of this encounter
--- OUTSIDE RECORDS SUMMARY | 2022-01-20 08:17 | XMS_ITS | Encounter Summary ---
:1950 Author Organization [employer] Address [address], [place] [address] Care Team Providers Name Role Phone Carlos Solorio MD Primary Care Provider Reason for Visit Reason Comments Shoulder Problem Encounter Details Date Type Department Care Team Description 05/07/2011 Office Visit [place] Physical Masoud Flores in joint, shoulder region (Primary Dx); Therapy J, PT Rotator cuff (capsule) sprain; [address] [address] [address] [place] [address] [place], [place] [phone] (Wo rk) Social History Tobacco Use Types Packs/Day Years Used Date Smoking Tobacco: Never Assessed Sex Assigned at Date Recorded Not on file documented as of this encounter Progress Notes Masoud Flores, PT - 05/07/2011 7:32 AM CST [facility] Services Physical Therapy Progress Note Visit Number: 3 Plan of Care/Certification Period: 90 days - 04/23/11 to 07/25/11 Referring Provider: Sawyer Hemphill MD Diagnosis: Right Rotator Cuff Tear Orders: Evaluate and treat. Standard Rotator Cuff Repair Protocol. Date of Onset: 16 months 09/13/2009 approximate Date of Surgery: 04/27/11 SUBJECTIVE: Better, missed Saturday's appointment because I was ill. Otherwise doing well, gettign better. OBJECTIVE: Grade I oscillations for pain. Passive Range of Motion all 4 planes, forward flexion to 120, ABD 120, ER 30, IR 60 re-instructed in codmans, use of ice, positioning at night for comfort, arm/elbow flexion/extension 2 x 10 ASSESSMENT: Increased ROM PLAN: continue 1-2x/week for PROM Procedures: Manual Therapy: Other 5 Therapeutic exercise: 20 minutes Total Treatment Time: 25 minutes Therapist: Masoud Flores PT, [facility], #[id number] documented in this encounter Plan of Treatment Not on filedocumented as of this encounter Visit Diagnoses Diagnosis Pain in joint, shoulder region - Primary Rotator cuff (capsule) sprain Unspecified orthopedic aftercare documented in this encounter Care Teams Saddle Maker Relationship Specialty Start Date End Date Carlos Solorio MD PCP - General 07/17/10 08/06/12 [address] [place] [id number] documented as of this encounter
--- OUTSIDE RECORDS SUMMARY | 2022-01-20 08:17 | XMS_ITS | Encounter Summary ---
:1950 Author Organization [employer] Address [address], [place] [address] Care Team Providers Name Role Phone Carlos Solorio MD Primary Care Provider Reason for Visit Reason Comments Skin Check Encounter Details Date Type Department Care Team Description 11/16/2011 Initial Consult Aury Ceja MD Actinic keratosis Dermatology [address] [place] [address] (Primary Dx) [address] [place], [place] [phone] [place] [address] Social History Tobacco Use Types Packs/Day Years Used Date Smoking Tobacco: Never Assessed Sex Assigned at Date Recorded Not on file documented as of this encounter Progress Notes Neena Daly LPN - 11/23/2011 2:48 PM CDT Quick Note: Spoke with patient and informed him of pathology results from 11/16/11. Advised him to rtc in one year for a skin check per Dr. Cabrera Aury Cabrera MD - 11/23/2011 12:23 PM CDT Quick Note: please inform. no sign of skin cancer. pt should return for recheck in one yr. Aury Cabrera MD - 11/16/2011 4:03 PM CDT Progress Notes signed by Aury Cabrera MD at 12/04/11 162 Author: Aury Cabrera MD Service: (none) Author Type: Physician Filed: 12/04/111621 Note Time: 11/16/11 1603 Status: Signed Bed Setter: Aury Cabrera MD (Physician) NAME: NICOLETTE RICE MR#: [id number] CSN: [id number] AUTHENTICATING CLINICIAN: Aury Cabrera MD CONFIRM #: [id number] LOC: 427 CLINIC PROGRESS NOTE DATE OF VISIT: 11/16/2011 : 1950 CHIEF COMPLAINT: Atypical moles. HISTORY OF PRESENT ILLNESS: Mr. Rice is a very pleasant 61-year-old male referred by Po Gonzalez for evaluation of several moles. Those most concerning to the patient are a pink mole on the central chest as well as a similarlesion on the back. These get caught on clothing and, therefore, irritate the patient. He has no other specific concerns and denies any lesions which are tender, bleeding, burning, pruritic or otherwise symptomatic. He is otherwise in his usual state of health. He has no personal history of skin cancer or any family history of skin cancer, including melanoma or related cancers. MEDICATIONS: Reviewed. ALLERGIES: No known drug allergies. 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 OBJECTIVE: Well-appearing male, skin type 2, pleasant, cooperative with exam, alert and oriented x3. A full body skin exam was performed with exception of the groin to include the face, scalp, chest, neck, back, bilateral upper and lower extremities, hands, feet. Groin exam was deferred per patient request. The exam is notable for red indurated papule on the left malar cheek/infraorbital cheek with adjacent brown keratotic plaque consistent with a possible BCC versus AK versus SCC arising from an AK.The central chest and left mid back show raised, pink, soft papules consistent with dermal nevi versus neurofibromas. The remainder of the exam is unremarkable. ASSESSMENT/PLAN: 61-year-old male with: 1. Rule out nonmelanoma skin cancer versus actinic keratosis on the left infraorbital cheek/malar cheek. After explaining the risks and benefits of the shave procedure, the patient gave verbal consent.I proceeded to clean the area with alcohol, followed by numbing with 1% lidocaine plus epinephrine plus sodium bicarbonate. A Tracy blade was used to shave a associate financial representative sample of the lesion, andthis was placed in formalin for H and E staining. The patient will be called with the results in 1-2weeks when they are available. 2. Dermal nevi versus neuromas/neurofibromas on the central chest and left mid back. Options were discussed, and patient expressed interest in shave removal. A similar procedure as described above for removal of the lesion on the infraorbital cheek was performed. The patient tolerated the procedure well and will be called with results once they are available. He will return to clinic as needed based on the biopsy results. CC: [place] [address] [place] [address] PEK:MEDQ C: CONFIRM #: [id number] documented in this encounter Miscellaneous Notes Miscellaneous - 05/25/2016 3:46 PM CSTNotes Recorded by Neena Daly LPN on 11/23/2011 at 2:48 PMSpoke with patient and informed him of pathology results from 11/16/11. Advised him to rtc in one yearfor a skin check per Dr. Cabrera------ Notes Recorded by Aury Cabrera MD on 11/23/2011 at 12:23 PMplease inform. no sign of skin cancer. pt should return for recheck in one yr. CTOR OF ELEMENTARY EDUCATION documented in this encounter Plan of Treatment Not on filedocumented as of this encounter Procedures Procedure Name Priority Date/Time Associated Diagnosis Comme nts SURGICAL ALISA PEREZ Routine 11/16/2011 7:00 AM Re janets for this NICOLLET CDT procedure are i n the results section. documented in this encounter Results Pathology Report (11/16/2011 7:00 AM CDT) Component Value Ref Test Analysis Performed At [facility] gist Range Method Time Signature Path: ? Final DERMATOPATHOLOGY REPO RT HP CONVERSION Pathology #: [id number] ? Date Obtained: 11/16/2011 ?Date Received: 11/16/2011 DIAGNOSIS: ? A) Skin, left mid back, shave biopsy: ?- Neurofibroma, superficial portion. (See commen t) ? Comment: Deep margin is involved. Appropriate c linical ? follow-up is recommended. ? B) Skin, left chest, shave biopsy: ?- Neurofibroma, superficial portion. (See commen t) ? Comment: Deep margin is involved. Appropriate c linical ? follow-up is recommended. ? C) Skin, left infraorbital cheek, shave biopsy: ? - Favor traumatized angioma with actinic damage , superficial ? portion. (See comment) ? Comment: Deeper sections were obtained in this case. The ? histologic features are suggestive of the super ficial portion ? of a traumatized angioma. A malignancy is not i dentified in ? the sections examined. Deep margin is involved. Appropriate ? clinical follow-up is recommended. If this is a portion of a ? larger atypical lesion, if the lesion persists/ recurs, or if ? malignancy remains a concern, additional sampli ng is ? recommended. This case was reviewed at the derm atopathology ? consensus conference. ?ETHAN ROSE N ? (electronic signatur e) ? 11/22/2011 ??13:4 3 CLINICAL NOTES: ? R/O Dermal nevus vs neurofibroma ORGAN/TISSUE SITE ? Left mid back/Left chest/Left infraorbital cheek GROSS DESCRIPTION: ?A) Received in a formalin-filled container labeled with the ? patient's name is an 8 x 7 x 4 mm shave biopsy of skin. The ? specimen is trisected and submitted entirely in one cassette. ?B) Received in a formalin-filled container labeled with the ? patient's name is a 4 x 4 x 3 mm shave biopsy o f skin. The ? specimen is bisected and submitted entirely in one cassette. ?C) Received in a formalin-filled container labeled with the ? patient's name is a 4 x 2 x 1 mm shave biopsy o f skin. ??The ? specimen is submitted entirely in one cassette. ?DANIELLE MICROSCOPIC DESCRIPTION: ?A) ??Sections examined show a shave of skin. ??Within the dermis is ? a proliferation of spindle cells. ??Cells hav e tapered nuclei. ? Abortive nerve twigs and mast cells are seen. S-100 highlights ? the spindle cells. A Melan A stain shows a norm al number of ? epidermal melanocytes and does not show an atyp ical ? melanocytic lesion. ??Deep margin is involved. ?B) ??Sections examined show a shave of skin. ??Within the dermis is ? a proliferation of spindle cells. ??Cells hav e tapered nuclei. ? Abortive nerve twigs and mast cells are seen. ? ?S-100 ? highlights the spindle cells. A Melan A stain s hows a normal ? number of epidermal melanocytes and does not sh ow an atypical ? melanocytic lesion. Deep margin is involved. ?C) ??Sections examined show a shave of skin. ??Ther e is epidermal ? erosion. Atypia of keratinocytes are seen angela ng the basal cell ? layer. Within the dermis are dilated vessels an d perivascular ? inflammation. ??Deeper section shows similar fe atures. ??Deep ? margin is involved. ? End of Report Specimen Anatomical Collection Method Collection Time Receive d Time (Source) Location / / Volume Laterality SHAVE BIOPSY OF 11/16/2011 7:00 AM 2011 7:00 SKIN / Unknown CDT AM CDT SHAVE BIOPSY OF 11/16/2011 7:00 AM 2011 7:00 SKIN / Unknown CDT AM CDT SHAVE BIOPSY OF 11/16/2011 7:00 AM 2011 7:00 SKIN / Unknown CDT AM CDT Transcriptions 05/25/2016 3:46 PM CSTNotes Recorded by Neena Daly LPN on 11/23/2011 at 2:48 PMSpoke with patient and informed him of pathology results from 11/16/11. Advised him to rtc in one year for a skin check per Dr. Cabrera------ Notes Recorded by Aury Cabrera MD on at 12:23 PMplease inform. no sign of skin cancer. pt should return for recheck in one yr. Aury Cabrera MD LAB_1 Performing Organization Address City/State/ZIP Code Phon e Number HP CONVERSION documented in this encounter Visit Diagnoses Diagnosis Actinic keratosis - Primary documented in this encounter Care Teams Merchandising Stock Associate Relationship Specialty Start Date End Date Carlos Solorio MD PCP - General 07/17/10 08/06/12 [address] [address] [place] [address] documented as of this encounter
--- OUTSIDE RECORDS SUMMARY | 2022-01-20 08:17 | XMS_ITS | Encounter Summary ---
:1950 Author Organization [facility] Address [address] [place] [address] Care Team Providers Name Role Phone Carlos Solorio MD Primary Care Provider Encounter Details Date Type Department Care Team Description 12/08/2010 Immunization Council Family Medicin e Nurse, [facility] [address] [place], [place] [id number] Social History Tobacco Use Types Packs/Day Years Used Date Smoking Tobacco: Never Assessed Sex Assigned at Date Recorded Not on file documented as of this encounter Plan of Treatment Not on filedocumented as of this encounter Visit Diagnoses Not on filedocumented in this encounter Care Teams Want Ad Receiver Relationship Specialty Start Date End Date Carlos Solorio MD PCP - General 07/17/10 08/06/12 [address] [place] [address] documented as of this encounter
--- OUTSIDE RECORDS SUMMARY | 2022-01-20 08:17 | XMS_ITS | Encounter Summary ---
:1950 Author Organization [facility] Address [address], [place] [address] Care Team Providers Name Role Phone Carlos Solorio MD Primary Care Provider Reason for Visit Reason Comments Shoulder Problem Encounter Details Date Type Department Care Team Description 05/24/2011 Office Visit [place] Physical Masoud Flores in joint, shoulder region (Primary Dx); Therapy J, PT Rotator cuff (capsule) sprain; [address] [address] [address] Unspecified [place] [address] [place], [place] [phone] (Wo rk) Social History Tobacco Use Types Packs/Day Years Used Date Smoking Tobacco: Never Assessed Sex Assigned at Date Recorded Not on file documented as of this encounter Progress Notes Masoud Flores, PT - 05/24/2011 8:13 AM CST [facility] Services Physical Therapy Progress Note Visit Number: 9 Plan of Care/Certification Period: 90 days - 04/23/11 to 07/25/11 Referring Provider: Sawyer Hemphill MD Diagnosis: Right Rotator Cuff Tear Orders: Evaluate and treat. Standard Rotator Cuff Repair Protocol. Date of Onset: 16 months 09/13/2009 approximate Date of Surgery: 04/27/11 SUBJECTIVE: Less painfull OBJECTIVE: PROM in supine: right shoulder flexion [...] with arm by side 4 x 30 cold pack x 10' ASSESSMENT: Toelrated treatment well, ROM increasing slowly PLAN: Continue with Passive Range of Motion and progress through protocol as appropriate. Procedures: Manual Therapy: 5 minutes Therapeutic exercise: 20 minutes cold pack x 10' Total Treatment Time: 35 minutes Therapist: Masoud Flores PT, [facility], #[id number] documented in this encounter Plan of Treatment Not on filedocumented as of this encounter Visit Diagnoses Diagnosis Pain in joint, shoulder region - Primary Rotator cuff (capsule) sprain Unspecified orthopedic aftercare documented in this encounter Care Teams Mine Promotor Relationship Specialty Start Date End Date Carlos Solorio MD PCP - General 07/17/10 08/06/12 [address] [address] [place] [address] documented as of this encounter
--- OUTSIDE RECORDS SUMMARY | 2022-01-20 08:17 | XMS_ITS | Encounter Summary ---
:1950 Author Organization [facility] Address [address] [place] [address] Care Team Providers Name Role Phone Carlos Solorio MD Primary Care Provider Encounter Details Date Type Department Care Team Description 11/18/2009 PN Conversion Only [facility] [address] [address] [place] [address] Social History Tobacco Use Types Packs/Day Years Used Date Smoking Tobacco: Never Assessed Sex Assigned at Date Recorded Not on file documented as of this encounter Plan of Treatment Not on filedocumented as of this encounter Visit Diagnoses Not on filedocumented in this encounter Care Teams Foreman Or Supervisor And Operator Relationship Specialty Start Date End Date Carlos Solorio MD PCP - General 07/17/10 08/06/12 [address] [address] [place]ough [phone] documented as of this encounter
--- OUTSIDE RECORDS SUMMARY | 2022-01-20 08:17 | XMS_ITS | Encounter Summary ---
:1950 Author Organization [employer] Address [address], [place] [address] Care Team Providers Name Role Phone Carlos Solorio MD Primary Care Provider Reason for Visit Reason Comments Shoulder Problem Encounter Details Date Type Department Care Team Description 07/11/2011 Office Visit [place] Physical Masoud Flores in joint, shoulder region (Primary Dx); Therapy J, PT Rotator cuff (capsule) sprain; [address] [address] [address] [place]specified [place] [address] [place], [place] [phone] (Wo rk) Social History Tobacco Use Types Packs/Day Years Used Date Smoking Tobacco: Never Assessed Sex Assigned at Date Recorded Not on file documented as of this encounter Progress Notes Masoud Flores, PT - 07/11/2011 11:29 AM CDT [facility] Services Physical Therapy Progress Note/Discharge Summary Visit Number: 17 Plan of Care/Certification Period: 90 days - 04/23/11 to 07/25/11 Referring Provider: Sawyer Hemphill MD Diagnosis: Right Rotator Cuff Tear Orders: Evaluate and treat. Standard Rotator Cuff Repair Protocol. Date of Onset: 16 months 09/13/2009 approximate Date of Surgery: 04/27/11 SUBJECTIVE: Sore form ER stretch at times overall better. Weak but moving easier. OBJECTIVE: PROM in supine: right shoulder flexion 175 degrees, IR 90 degrees, ER 80 degrees at 45 degrees ABD, arm by side 75, abduction 175 degrees. TREATMENT TODAY: -PROM stretching to right [...] sleeper IR stretch and towel stretch. ER 4# 1 x 15, FF 2# 1 x 15, ABD 2# 1 x 12, lower trpa PRE 1 x 7 ASSESSMENT: ROM improving weekly. toelrated PREs well. PLAN: continue 1x/week for ROM. Will continue with HEP, if he returns check IR behind back Physical Therapy Discharge Summary Onset: 09/13/09 First Visit (Eval date): 04/23/11 Last Visit: 07/11/11 Total Visits: 17 Missed Appointments: 0 Examination/Evaluation: See evaluation in Electronic Medical Record completed on the first visit date (listed above) Treatment and education received: Refer to progress notes in Electronic Medical Records. Initial compared to final: Full AROM and PROM pain at end range, Independent in HEP. Reasons for Discharge: Met Goals Will work on Home Exercise Program on their own Satisfactory Program Completion: Satisfactory goal achievement Discharge Recommendations: Continue independently with home program. Patient is independent in self management. Will call therapist with questions as needed. Return to Physician. Follow up as needed. Patient's Primary Therapist: Discharging therapist is primary therapist Program Group: Musculoskeletal - shoulder Participation Goal ADL Participation Goal Met Yes Home Exercise Program Yes Physical Therapy Standard Tests: Clinical Global Impression: 04/23/11 510 07/11/1104/24 Test : Quick Dash Outcome Measure Score Beginnin04/23/11 65.9 Score End: 07/11/11 4.5 Procedures: Manual Therapy: 5 minutes Therapeutic exercise: 25 minutes Total Treatment Time: 30 minutes Therapist: Masoud Flores PT, [facility], #[id number] documented in this encounter Plan of Treatment Not on filedocumented as of this encounter Visit Diagnoses Diagnosis Pain in joint, shoulder region - Primary Rotator cuff (capsule) sprain Unspecified orthopedic aftercare documented in this encounter Care Teams Plant Production Worker Relationship Specialty Start Date End Date Carlos Solorio MD PCP - General 07/17/10 08/06/12 [address] [address] [place] [id number] documented as of this encounter
--- OUTSIDE RECORDS SUMMARY | 2022-01-20 08:17 | XMS_ITS | Encounter Summary ---
:1950 Author Organization [employer] Address [address] [address] Care Team Providers Name Role Phone Carlos Solorio MD Primary Care Provider Reason for Visit Reason Comments Shoulder Problem Encounter Details Date Type Department Care Team Description 05/14/2011 Office Visit [place] Physical Masoud Flores in joint, shoulder region (Primary Dx); Therapy J, PT Rotator cuff (capsule) sprain; [address] [address] [address] [place] [address] [place], [place] [phone] (Wo rk) Social History Tobacco Use Types Packs/Day Years Used Date Smoking Tobacco: Never Assessed Sex Assigned at Date Recorded Not on file documented as of this encounter Progress Notes Masoud Flores, PT - 05/14/2011 7:34 AM CST [facility] Services Physical Therapy Progress Note Visit Number: 6 Plan of Care/Certification Period: 90 days - 04/23/11 to 07/25/11 Referring Provider: Sawyer Hemphill MD Diagnosis: Right Rotator Cuff Tear Orders: Evaluate and treat. Standard Rotator Cuff Repair Protocol. Date of Onset: 16 months 09/13/2009 approximate Date of Surgery: 04/27/11 SUBJECTIVE: LEss pain every few days gettign easier at home. OBJECTIVE: PROM in supine: right shoulder flexion 135 degrees, IR 60-70 degrees, ER 50 degrees, abduction 130 degrees. TREATMENT TODAY: -PROM stretching to right shoulder in all directions with mild end range stretch within pain tolerance, increased muscle guarding noted. -Gentle grade I oscillations to promote relaxation of shoulder, several verbal cues for relaxation and deep breathing to help promote relaxation. added ER wall with arm by side 4 x 30 ASSESSMENT: Toelrated treatment well, ROM increasing. PLAN: Continue with Passive Range of Motion and progress through protocol as appropriate. Procedures: Manual Therapy: 5 minutes Therapeutic exercise: 20 minutes Total Treatment Time: 25 minutes Therapist: Masoud Flores PT, [facility], #[id number] documented in this encounter Plan of Treatment Not on filedocumented as of this encounter Visit Diagnoses Diagnosis Pain in joint, shoulder region - Primary Rotator cuff (capsule) sprain Unspecified orthopedic aftercare documented in this encounter Care Teams Social Sciences Department Chair Relationship Specialty Start Date End Date Carlos Solorio MD PCP - General 07/17/10 08/06/12 [address] [place] [address] documented as of this encounter
--- OUTSIDE RECORDS SUMMARY | 2022-01-20 08:17 | XMS_ITS | Encounter Summary ---
:1950 Author Organization [facility] Address [address] [place] [address] Care Team Providers Name Role Phone Carlos Solorio MD Primary Care Provider Encounter Details Date Type Department Care Team Description 12/14/2009 Office Visit [facility] [address] [facility] [address] [place] [address] [place], [place] [phone] (Wo rk) Social History Tobacco Use Types Packs/Day Years Used Date Smoking Tobacco: Never Assessed Sex Assigned at Date Recorded Not on file documented as of this encounter Plan of Treatment Not on filedocumented as of this encounter Visit Diagnoses Not on filedocumented in this encounter Care Teams Applications Consultant Relationship Specialty Start Date End Date Carlos Solorio MD PCP - General 07/17/10 08/06/[address] [place] [address] documented as of this encounter
--- OUTSIDE RECORDS SUMMARY | 2022-01-20 08:17 | XMS_ITS | Encounter Summary ---
:1950 Author Organization [facility] Address [address] [place] [address] Care Team Providers Name Role Phone Carlos Solorio MD Primary Care Provider Encounter Details Date Type Department Care Team Description 12/21/2009 Nursing Visit [facility] Sal Mustafa MD [facility] [place] [address] Social History Tobacco Use Types Packs/Day Years Used Date Smoking Tobacco: Never Assessed Sex Assigned at Date Recorded Not on file documented as of this encounter Plan of Treatment Not on filedocumented as of this encounter Visit Diagnoses Not on filedocumented in this encounter Care Teams Nonfarm Animal Caretaker Relationship Specialty Start Date End Date Carlos Solorio MD PCP - General 07/17/10 08/06/12 [address] [place] [address] documented as of this encounter
--- OUTSIDE RECORDS SUMMARY | 2022-01-20 08:17 | XMS_ITS | Encounter Summary ---
:1950 Author Organization [facility] Address [address] [address] Care Team Providers Name Role Phone Carlos Solorio MD Primary Care Provider Reason for Visit Reason Comments Shoulder Problem Encounter Details Date Type Department Care Team Description 06/07/2011 Office Visit [facility] Masoud Flores in joint, shoulder region (Primary Dx); Therapy J, PT Rotator cuff (capsule) sprain; [address] [address] [address] Unspecified [place] [address] [place], [place] [phone] (Wo rk) Social History Tobacco Use Types Packs/Day Years Used Date Smoking Tobacco: Never Assessed Sex Assigned at Date Recorded Not on file documented as of this encounter Progress Notes Masoud Flores, PT - 06/07/2011 9:27 AM CST [facility] Services Physical Therapy Progress Note Visit Number: 13 Plan of Care/Certification Period: 90 days - 04/23/11 to 07/25/11 Referring Provider: Sawyer Hemphill MD Diagnosis: Right Rotator Cuff Tear Orders: Evaluate and treat. Standard Rotator Cuff Repair Protocol. Date of Onset: 16 months 09/13/2009 approximate Date of Surgery: 04/27/11 SUBJECTIVE: OBJECTIVE: PROM in supine: right shoulder flexion 160 degrees, IR 90 degrees, ER 75 degrees at 45 degrees ABD, arm by side 45-50, abduction 160 degrees. TREATMENT TODAY: -PROM stretching [...] 5 sleeper IR stretch and towel stretch. ice 10' seated ASSESSMENT: ER behind other motions but on trqack. PLAN: Continue with Passive Range of Motion and progress through protocol as appropriate.1- 2x/week Procedures: Manual Therapy: 5 minutes Therapeutic exercise: 25 minutes ice 10 Total Treatment Time: 40 minutes Therapist: Masoud Flores PT, OCS, #[id number] documented in this encounter Plan of Treatment Not on filedocumented as of this encounter Visit Diagnoses Diagnosis Pain in joint, shoulder region - Primary Rotator cuff (capsule) sprain Unspecified orthopedic aftercare documented in this encounter Care Teams Occupational Therapy Manager Relationship Specialty Start Date End Date Carlos Solorio MD PCP - General 07/17/10 08/06/12 [address] [place] [id number] documented as of this encounter
--- OUTSIDE RECORDS SUMMARY | 2022-01-20 08:17 | XMS_ITS | Encounter Summary ---
:1950 Author Organization [employer] Address [address], [place] [address] Care Team Providers Name Role Phone Carlos Solorio MD Primary Care Provider Reason for Visit Reason Comments Shoulder Problem Encounter Details Date Type Department Care Team Description 05/17/2011 Office Visit [facility] Masoud Flores in joint, shoulder region (Primary Dx); Therapy J, PT Rotator cuff (capsule) sprain; [address] [address] [address] Unspecified [place] [address] [place], [place] [phone] (Wo rk) Social History Tobacco Use Types Packs/Day Years Used Date Smoking Tobacco: Never Assessed Sex Assigned at Date Recorded Not on file documented as of this encounter Progress Notes Masoud Flores, PT - 05/17/2011 7:38 AM CST [facility] Physical Therapy Progress Note Visit Number: 7 Plan of Care/Certification Period: 90 days - 04/23/11 to 07/25/11 Referring Provider: Sawyer Hemphill MD Diagnosis: Right Rotator Cuff Tear Orders: Evaluate and treat. Standard Rotator Cuff Repair Protocol. Date of Onset: 16 months 09/13/2009 approximate Date of Surgery: 04/27/11 SUBJECTIVE: Doing fine, gradually less pain but still really sore. OBJECTIVE: PROM in supine: right shoulder flexion [...] x 10' ASSESSMENT: Toelrated treatment well, ROM increasing. PLAN: Continue with Passive Range of Motion and progress through protocol as appropriate. Procedures: Manual Therapy: 5 minutes Therapeutic exercise: 20 minutes cold pack x 10' Total Treatment Time: 35 minutes Therapist: Masoud Flores PT, OCS, #[id number] documented in this encounter Plan of Treatment Not on filedocumented as of this encounter Visit Diagnoses Diagnosis Pain in joint, shoulder region - Primary Rotator cuff (capsule) sprain Unspecified orthopedic aftercare documented in this encounter Care Teams Toy Department Manager Relationship Specialty Start Date End Date Carlos Solorio MD PCP - General 07/17/10 08/06/12 [address] [place] [id number] documented as of this encounter
--- OUTSIDE RECORDS SUMMARY | 2022-01-20 08:17 | XMS_ITS | Encounter Summary ---
:1950 Author Organization [facility] Address [address] [address] Care Team Providers Name Role Phone Carlos Solorio MD Primary Care Provider Encounter Details Date Type Department Care Team Description 04/23/2011 Lab Visit [facility] Pre-op exam [address] [place] [address] Social History Tobacco Use Types Packs/Day Years Used Date Smoking Tobacco: Never Assessed Sex Assigned at Date Recorded Not on file documented as of this encounter Plan of Treatment Not on filedocumented as of this encounter Procedures Procedure Name Priority Date/Time Associated Comments Diagnosis GLUCOSE Routine 04/23/2011 10:25 Pre-op exam Results for this AM PAYMENT POSTER procedure are i n the results section. CREATININE / GFR Routine 04/23/2011 10:25 Pre-op exam Results for this AM PAYMENT POSTER procedure are i n the results section. COMPLETE BLOOD Routine 04/23/2011 10:25 Pre-op exam Results f or this COUNT-W/DIFF AM PAYMENT POSTER procedure are i n the results section. DIFFERENTIAL Routine 04/23/2011 10:25 Results for this AM PAYMENT POSTER procedure are i n the results section. ELECTROLYTE PANEL Routine 04/23/2011 10:25 Pre-op exam Result s for this AM PAYMENT POSTER procedure are i n the results section. VENIPUNCTURE (SETH) Routine 04/23/2011 Results for this procedure are i n the results section. documented in this encounter Results (ABNORMAL) Differential (04/23/2011 10:25 AM PAYMENT POSTER) [facility] gist Method Time Signature Absolute 6.4 1.8 - 8.0 HP CONVERSION Neutrophils k/cmm Absolute 2.4 1.1 - 4.0 HP CONVERSION Lymphocytes k/cmm Absolute 1.0 (H) 0.2 - 0.8 HP CONVERSION Monocytes k/cmm Absolute 0.2 0.0 - 0.5 HP CONVERSION Eosinophils k/cmm Absolute 0.1 0.0 - 0.2 HP CONVERSION Basophils k/cmm Specimen Anatomical Collection Method Collection Time Receive d Time (Source) Location / / Volume Laterality 04/23/2011 10:25 04/23/2011 AM PAYMENT POSTER 10:25 AM PAYMENT POSTER Narrative HP CONVERSION - 04/23/2011 10:40 AM PAYMENT POSTER Performed at [facility], [address] [place] [address] Po Coats MD LAB_1 Performing Organization Address [facility] Phon e Number HP CONVERSION GLUCOSE (04/23/2011 10:25 AM PAYMENT POSTER) athologist Signature Lab Glucose 82 60 - 100 HP CONVERSION mg/dL Specimen Anatomical Collection Method Collection Time Receive d Time (Source) Location / / Volume Laterality 04/23/2011 10:25 04/23/2011 AM PAYMENT POSTER 10:25 AM PAYMENT POSTER Narrative HP CONVERSION - 04/23/2011 12:19 PM PAYMENT POSTER Performed at [facility], [address] [place] [address] Po Coats MD LAB_1 Performing Organization Address City/[facility] Phon e Number HP CONVERSION Creatinine / GFR (04/23/2011 10:25 AM PAYMENT POSTER) athologist Signature Creatinine 1.0 0.4 - 1.3 HP CONVERSION Serum mg/dL Est GFR >60 >60 HP CONVERSION [...] Time (Source) Location / / Volume Laterality 04/23/2011 10:25 04/23/2011 AM PAYMENT POSTER 10:25 AM PAYMENT POSTER Narrative HP CONVERSION - 04/23/2011 12:19 PM PAYMENT POSTER Performed at [facility], [address] [place] [address] Po Coats MD LAB_1 Performing Organization Address [facility] Phon e Number HP CONVERSION Electrolyte Panel (04/23/2011 10:25 AM PAYMENT POSTER) athologist Signature Sodium 142 137 - 147 HP CONVERSION mEq/L Potassium 4.2 3.5 - 5.2 HP CONVERSION mEq/L Chloride 105 98 - 110 HP CONVERSION mEq/L Bicarbonate 29 23 - 33 HP CONVERSION mmol/L Specimen Anatomical Collection Method Collection Time Receive d Time (Source) Location / / Volume Laterality 04/23/2011 10:25 04/23/2011 AM PAYMENT POSTER 10:25 AM PAYMENT POSTER Narrative HP CONVERSION - 04/23/2011 12:19 PM PAYMENT POSTER Performed at [facility], [address] [place] [address] Po Coats MD LAB_1 Performing Organization Address [facility] Phon e Number HP CONVERSION Hemogram/Plts/Diff (04/23/2011 10:25 AM PAYMENT POSTER) athologist Signature White Blood Cell 10.1 3.8 - 11.0 HP CONVERSIO N Count k/cmm Red Blood Cell 5.41 4.20 - HP CONVERSION Count 5.90 m/cmm Hemoglobin 16.1 13.4 - HP CONVERSION 17.5 g/dL Hematocrit 46.9 39.0 - HP CONVERSION 51.0 % Mean Corpuscular 86.8 80.0 - HP CONVERSION Volume 100.0 fL RDW 12.8 11.0 - HP CONVERSION 15.0 % Platelet Count 224 140 - 450 HP CONVERSION k/cmm Specimen Anatomical Collection Method Collection Time Receive d Time (Source) Location / / Volume Laterality 04/23/2011 10:25 04/23/2011 AM PAYMENT POSTER 10:25 AM PAYMENT POSTER Narrative HP CONVERSION - 04/23/2011 10:40 AM PAYMENT POSTER Performed at [facility], [address] [place] [address] Po Coats MD LAB_1 Performing Organization Address [facility]/State/ZIP Code Phon e Number HP CONVERSION VENIPUNCTURE (SETH) (04/23/2011) P athologist Signature Venipuncture Done HP CONVERSION Specimen (Source) Anatomical Location Collection Method / Collectio n Time Received Time / Laterality Volume 04/23/2011 04/23/2011 Narrative HP CONVERSION - 04/23/2011 11:09 AM PAYMENT POSTER Performed at [facility], [address] [facility], [place] [address] Po Coats MD LAB_1 Performing Organization Address City/State/ZIP Code Phon e Number HP CONVERSION documented in this encounter Visit Diagnoses Diagnosis Pre-op exam Preoperative examination, unspecified documented in this encounter Care Teams Stockroom Supervisor Relationship Specialty Start Date End Date Carlos Solorio MD PCP - General 07/17/10 08/06/12 [address] [address] [place] [id number] documented as of this encounter
--- OUTSIDE RECORDS SUMMARY | 2022-01-20 08:17 | XMS_ITS | Encounter Summary ---
:1950 Author Organization [facility] Address [address] [place] [address] Care Team Providers Name Role Phone Carlos Solorio MD Primary Care Provider Encounter Details Date Type Department Care Team Description 08/13/2010 PN Conversion Only [facility] Addie Solorio MD [facility] [address] [address] [place] [address] [place] [address] [phone] Social History Tobacco Use Types Packs/Day Years Used Date Smoking Tobacco: Never Assessed Sex Assigned at Date Recorded Not on file documented as of this encounter Plan of Treatment Not on filedocumented as of this encounter Visit Diagnoses Not on filedocumented in this encounter Care Teams Banana Loader Relationship Specialty Start Date End Date Carlos Solorio MD PCP - General 07/17/10 08/06/12 [address] [place] [address] documented as of this encounter
--- OUTSIDE RECORDS SUMMARY | 2022-01-20 08:17 | XMS_ITS | Encounter Summary ---
:1950 Author Organization [employer] Address [address] [address] Care Team Providers Name Role Phone Carlos Solorio MD Primary Care Provider Reason for Visit Reason Comments Shoulder Problem Encounter Details Date Type Department Care Team Description 06/12/2011 Office Visit [facility] Masoud Flores in joint, shoulder region (Primary Dx); Therapy J, PT Rotator cuff (capsule) sprain; [address] [address] [address] Unspecified orthopedic [place] [address] [place], [place] [phone] (Wo rk) Social History Tobacco Use Types Packs/Day Years Used Date Smoking Tobacco: Never Assessed Sex Assigned at Date Recorded Not on file documented as of this encounter Progress Notes Masoud Flores, PT - 06/12/2011 8:01 AM CST [facility] Services Physical Therapy Progress Note Visit Number: 14 Plan of Care/Certification Period: 90 days - 04/23/11 to 07/25/11 Referring Provider: Sawyer Hemphill MD Diagnosis: Right Rotator Cuff Tear Orders: Evaluate and treat. Standard Rotator Cuff Repair Protocol. Date of Onset: 16 months 09/13/2009 approximate Date of Surgery: 04/27/11 SUBJECTIVE: Better, no issuse with shoulder easier to move, can put wallet in back pocket. OBJECTIVE: PROM in supine: right shoulder flexion 165 degrees, IR 90 degrees, ER 75 degrees at 45 degrees ABD, arm by side 60-70, abduction 165 degrees. TREATMENT TODAY: -PROM stretching [...] and towel stretch. ice 10' seated ASSESSMENT: ROM improving weekly PLAN: Continue with Passive Range of Motion and progress through protocol as appropriate.1x/week. Back offto 1x/week doing better. Procedures: Manual Therapy: 5 minutes Therapeutic exercise: 25 minutes ice 10 Total Treatment Time: 40 minutes Therapist: Masoud Flores PT, [facility], #[id number] [employer] CONSULTANT documented in this encounter Plan of Treatment Not on filedocumented as of this encounter Visit Diagnoses Diagnosis Pain in joint, shoulder region - Primary Rotator cuff (capsule) sprain Unspecified orthopedic aftercare documented in this encounter Care Teams Licensed Final Expense Agents Relationship Specialty Start Date End Date Carlos Solorio MD PCP - General 07/17/10 08/06/12 [address] [place] [address] documented as of this encounter
--- OUTSIDE RECORDS SUMMARY | 2022-01-20 08:17 | XMS_ITS | Encounter Summary ---
:1950 Author Organization [employer] Address [address] [address] Care Team Providers Name Role Phone Carlos Solorio MD Primary Care Provider Reason for Visit Reason Comments Hematuria Encounter Details Date Type Department Care Team Description 07/14/2011 Hospital Encounter [facility] [place] [facility] Kirk Nieves , Blood in urine; Care Glucosuria; [address] [facility] [place] [address] [address] [phone] [place], [place] [phone] Social History Tobacco Use Types Packs/Day Years Used Date Smoking Tobacco: Never Assessed Sex Assigned at Date Recorded Not on file documented as of this encounter Last Filed Vital Signs Vital Sign Reading Time Taken Comments Blood Pressure 134/90 07/14/2011 8:11 AM CDT Pulse 84 07/14/2011 8:11 AM CDT Temperature 36.3 ??C (97.3 ??F) 07/14/2011 8:11 AM CDT Respiratory Rate 16 07/14/2011 8:11 AM CDT Oxygen Saturation - - Inhaled Oxygen Concentration - - Weight - - Height - - Body Mass Index - - documented in this encounter Medications at Time of Discharge Medication Sig Dispensed Refills Start Date End Date ciprofloxacin (aka CIPRO) Take 1 tablet by 14 tablet 0 06/1507/21/2011 tablet mouth 2 times daily for 7 days. documented as of this encounter Progress Notes Kirk Nieves MD - 07/14/2011 10:43 AM CDT Progress Notes signed by Kirk Nieves MD at 07/30/11 1501 Author: Kirk Nieves MD Service: (none) Author Type: Physician Filed: 07/30/11 1501 Note Time: 07/14/11 1043 Status: Signed Acting Instructor: Kirk Nieves MD (Physician) NAME: NICOLETTE RICE MR#: [id number] CSN: [id number] AUTHENTICATING CLINICIAN: Kirk Nieves MD CONFIRM #: [id number] LOC: 520 CLINIC PROGRESS NOTE DATE OF VISIT: 07/14/2011 : 1950 SUBJECTIVE: Patient is a 60-year-old male who was recently here for a urinary tract infection, and I reviewed that note from Dr. Beckwith from the of last month, where he was placed on Cipro for dysuria and ended up having a culture that grew out E-coli sensitive to everything. The patient says that 2-3 years before this, he also did have a bladder infection but he has never had a kidney infection. SOCIAL HISTORY: He is currently laid off from work. Past and family history are otherwise negative other than what was noted here. He denies diabetes, but says that after he had shoulder surgery a couple of months ago, he has put on some weight. His symptoms this time, on systems review, did start with his feeling feverish 3 days ago, just for 1 day but he has been afebrile since and is afebrile today without antipyretics. He, though, at 1:00 a.m. this morning had some blood in the urine and felt painful urination but has not had abdominal pain or back pain or any vomiting. Past history includes no allergies to medications or regular prescriptions. OBJECTIVE: On exam BP 134/90, so he will have his doctor recheck that and temperature is 97.3. Exam shows no back or abdominal tenderness to palpation. Urinalysis that was done did, however, suggest infection and he had 10-24 white cells, greater than 100 red cells, and also some urine glucose was noted. Large leukocyte esterase and nitrites were also noted and greater than 300 mg/dL of protein was also noted. We did do a urine culture and also with the above, I did a blood sugar and he states he is fasting this morning and it came back at 117. ASSESSMENT: 1. Blood in urine along with protein, likely secondary to #2. 2. Cystitis. 3. Also glucosuria with mildly elevated fasting blood sugar. Creatinine was noted to be normal in labs done back in April. PLAN: We are going to place him on Cipro 500 b.i.d. for 7 days and push fluids. Side-effect profile of the medication is outlined. He is also given information and knows he absolutely, positively needs to see Urology within the next 2 weeks because of these recurrences, and that he needs to get his urine rechecked to rule out residual protein and blood, and he understands why, and agrees to have them do that. He is also going to go back to see Morgan Arora, omid, so he can have another fasting blood sugar done and a hemoglobin A1c and follow up on the glucosuria and elevated blood sugar. He agrees to also do that within the next couple of weeks and will see us back if worsening or not improving quickly and completely in the meantime. Urine culture is also pending at this time. WDL:MEDQ C: CONFIRM #: [id number] yV Dobbs RN - 07/14/2011 9:05 AM CDT Quick Note: Pt informed of urine culture results and he is on correct medication. Pt states sx are improving. Pt informed if sx increase, nausea, vomiting, chills, fever he needs to return to urgent care. Pt reminded to follow up with Urology as stated in Dr. Metzger dictation. Pt verbalizes understanding. documented in this encounter Miscellaneous Notes Miscellaneous - 07/14/2011 9:05 AM CDTNotes Recorded by Vy Dobbs RN on 07/16/2011 at 11:35 AMPt informed of urine culture results and he is on correct medication. Pt states sx are improving. Ptinformed if sx increase, nausea, vomiting, chills, fever he needs to return to urgent care. Pt reminded to follow up with Urology as stated in Dr. Metzger dictation. Pt verbalizes understanding. Medication History - Oscar Colón MD - 07/14/2011 9:05 AM CDT INPATIENT MEDS Encounter Date: 07/14/11 ciprofloxacin (CIPRO) 500 mg tablet Start Date:07/14/11, End Date:07/21/11, Frequency:2 TIMES DAILY *No Administrations Recorded documented in this encounter Plan of Treatment Not on filedocumented as of this encounter Procedures Procedure Name Priority Date/Time Associated Comments Diagnosis BEDSIDE GLUCOSE Routine 07/14/2011 8:43 AM Result s for this MONITOR POCT CDT procedure are i n the results section. URINE CULTURE STAT 07/14/2011 8:39 AM Blood in urine Result s for this CDT procedure are i n the results section. URINE MICROSCOPIC STAT 07/14/2011 8:07 AM Blood in urine Re sults for this CDT procedure are i n the results section. URINALYSIS STAT 07/14/2011 8:07 AM Blood in urine Results for this ROUTINE(MICRO IF POS) CDT proced ure are in the results section. documented in this encounter Results BEDSIDE GLUCOSE MONITOR (07/14/2011 8:43 AM CDT) P athologist Signature Bedside Blood 117 mg/dL HP CONVERSION Glucose Test Specimen Anatomical Collection Method Collection Time Receive d Time (Source) Location / / Volume Laterality 07/14/2011 8:43 AM 2 8:50 CDT AM CDT Kirk Nieves MD LAB_1 Performing Organization Address City/State/ZIP Code Phon e Number HP CONVERSION Urine Culture (07/14/2011 8:39 AM CDT) Component Value Ref Test Analysis Performed At [facility] Range Method Time Signature Urine Culture HP CONVERSION Urine Culture Escherichia coli HP CONVER DENIZ 10-50,000 cfu/ml Microbiology ESCHERICHIA HP CONVERSION Component COLI Comment: Escherichia coli Specimen (Source) Anatomical Collection Method Collection Time Re ceived Time Location / / Volume Laterality Urine:clean catch 07/14/2011 8:39 AM CDT Transcriptions 07/14/2011 9:05 AM CDTNotes Recorded by Vy Dobbs RN on 07/16/2011 at 11:35 AMPt informed of urine culture results and he is on correct medication. Pt states sx are improving. Pt informed if sx increase, nausea, vomitin g, chills, fever he needs to return to urgent care. Pt reminded to follow up with Urology as stated in Dr. Metzger dictation. Pt verbalizes understanding. Organism Antibiotic Method Susceptibility Escherichia coli Amikacin [...] < =20: Sensitive Comment: ? ORDERED BY: KIRK NIEVES SOURCE: Urine clean catch ?COLLECTED: ??07/14/11 08:39 ? PLATED: ? 07/14/11 09:17 Culture Urine ?FINAL ? 07/16/11 11:22 ?10-50,000 cfu/ml Esche richia coli ?E.coli ? ANTIBIOTICS [...] consult an Infectious Disease Specialist with questions. Kirk Nieves MD LAB_1 Performing Organization Address City/State/ZIP Code Phon e Number HP CONVERSION (ABNORMAL) URINE MICROSCOPIC (07/14/2011 8:07 AM CDT) [facility] Method Time Signature Urine WBC 10-24 (A) 0 - 4 HP CONVERSION /HPF Urine RBC >100 (H) 0 - 2 HP CONVERSION /HPF Bacteria Urine Occasional (A) /HPF HP CONVERS ION Epithelial Few /HPF HP CONVERSION Cells Specimen Anatomical Collection Method Collection Time Receive d Time (Source) Location / / Volume Laterality 07/14/2011 8:07 AM 2 8:10 CDT AM CDT Narrative HP CONVERSION - 07/14/2011 8:29 AM CDT Performed at [facility], [address] [place] [address] Kirk Nieves MD LAB_1 Performing Organization Address [facility] Phon e Number HP CONVERSION (ABNORMAL) URINALYSIS ROUTINE(MICRO IF POS) (07/14/2011 8:07 AM CDT) [facility] Method Time Signature Urine Type Urine:clean HP CONVERSION cat Turbidity Cloudy (A) Clear HP CONVERSION U BILI Moderate Negative HP CONVERSION (A) Blood Urine Large (A) Negative HP CONVERSION Glucose, 100 (A) Neg-30 HP CONVERSION Qualitative U mg/dL Ketones 15 (A) Negative HP CONVERSION Leukocyte Large (A) Negative HP CONVERSION Esterase Urine Nitrite Urine Positive Negative HP CONVERSION (A) pH Urine 6.5 5.0 - 8.0 HP CONVERSION Protein Urine >=300 (A) Neg - Trace HP CONVERSION mg/dL U Specific 1.015 1.005 - HP CONVERSION [place] 1.030 Urobilinogen 4.0 (A) Negative HP CONVERSION Urine Eu/dL Specimen Anatomical Collection Method Collection Time Receive d Time (Source) Location / / Volume Laterality Urine: 07/14/2011 8:07 AM 2 8:10 CDT AM CDT Narrative HP CONVERSION - 07/14/2011 8:29 AM CDT Performed at [facility], [address] [place] [address] Kirk Nieves MD LAB_1 Performing Organization Address [facility] Phon e Number HP CONVERSION documented in this encounter Visit Diagnoses Diagnosis Blood in urine Hematuria, unspecified Glucosuria Glycosuria Cystitis Cystitis, unspecified documented in this encounter Care Teams Home Improvement Contractor Relationship Specialty Start Date End Date Carlos Solorio MD PCP - General 07/17/10 08/06/[address] [place] [address] [place] Mcdonough [id number] documented as of this encounter
--- OUTSIDE RECORDS SUMMARY | 2022-01-20 08:17 | XMS_ITS | Encounter Summary ---
:1950 Author Organization [employer] Address [address] [address] Care Team Providers Name Role Phone Carlos Solorio MD Primary Care Provider Reason for Visit Reason Comments Shoulder Problem Encounter Details Date Type Department Care Team Description 05/09/2011 Office Visit [place] [facility] Helen Lane, PT Pain in joint, shoulder region (Primary Dx); Therapy [address] [place] [address] Rotator cuff (capsule) sprain; [address] [place], [place] Unspecified [place]opedic [place] [address] [phone] (Wo rk) Social History Tobacco Use Types Packs/Day Years Used Date Smoking Tobacco: Never Assessed Sex Assigned at Date Recorded Not on file documented as of this encounter Progress Notes Abiola Lane, PT - 05/09/2011 9:56 AM CST [email or web address] Progress Note Visit Number: 4 Plan of Care/Certification Period: 90 days - 04/23/11 to 07/25/11 Referring Provider: Sawyer Hemphill MD Diagnosis: Right Rotator Cuff Tear Orders: Evaluate and treat. Standard Rotator Cuff Repair Protocol. Date of Onset: 16 months 09/13/2009 approximate Date of Surgery: 04/27/11 SUBJECTIVE: Patient states his shoulder has been feeling a little better overall. He states he has been doing his exercises at home and they have been going well with no difficulties. Currently rates his right shoulder pain at 2-3/10. OBJECTIVE: PROM in supine: right shoulder flexion 135 degrees, IR 51 degrees, ER 30 degrees, abduction 80 degrees. TREATMENT TODAY: -PROM stretching to right shoulder in all directions with mild end range stretch within pain tolerance, increased muscle guarding noted. -Gentle grade I oscillations to promote relaxation of shoulder, several verbal cues for relaxation and deep breathing to help promote relaxation. -Cold pack to right shoulder in sitting with sling on x 15 minutes ASSESSMENT: Patient had a hard time relaxing into the stretches today and had increased pain up to 5-6/10 with end range of motion. He had a slight increase in flexion Passive Range of Motion and mild decrease in abduction compared to his last session. PLAN: Continue with Passive Range of Motion and progress through protocol as appropriate. Procedures: Manual Therapy: 5 minutes Therapeutic exercise: 20 minutes Ice 15 minutes Total Treatment Time: 40 minutes Therapist: Abiola Christiansen DPT #[id number] ON FIRE DIRECTION SPECIALIST documented in this encounter Plan of Treatment Not on filedocumented as of this encounter Visit Diagnoses Diagnosis Pain in joint, shoulder region - Primary Rotator cuff (capsule) sprain Unspecified orthopedic aftercare documented in this encounter Care Teams Partridge Farmer Relationship Specialty Start Date End Date Carlos Solorio MD PCP - General 07/17/10 08/06/12 [address] [place] [id number] documented as of this encounter
--- OUTSIDE RECORDS SUMMARY | 2022-01-20 08:17 | XMS_ITS | Encounter Summary ---
:1950 Author Organization [facility] Address [address] [address] Care Team Providers Name Role Phone Carlos Solorio MD Primary Care Provider Reason for Visit Reason Comments SHOULDER PAIN Encounter Details Date Type Department Care Team Description 05/02/2011 Office Visit Sawyer Aguilar MD Follow-up Orthopedics [address] [facility] examination, [address] [place], [place] [id number] surgery (Primary Dx) [phone] Social History Tobacco Use Types Packs/Day Years Used Date Smoking Tobacco: Never Assessed Sex Assigned at Date Recorded Not on file documented as of this encounter Progress Notes Sawyer Hemphill MD - 05/02/2011 9:35 AM CST Progress Notes signed by Sawyer Hemphill MD at 05/03/11 1125 Author: Sawyer Hemphill MD Service: (none) Author Type: Physician Filed: 05/03/11 1125 Note Time: 05/02/11 0935 Status: Signed Asphalt Plant Laborer: Sawyer Hemphill MD (Physician) NAME: NICOLETTE RICE MR#: [id number] CSN: [id number] AUTHENTICATING CLINICIAN: Sawyer Hemphill MD CONFIRM #: [id number] LOC: 511 CLINIC PROGRESS NOTE DATE OF VISIT: 05/02/2011 : 1950 Mr. Rice is a 60-year-old gentleman status post right shoulder arthroscopy decompression, distal clavicle resection, mini open rotator cuff tear repair performed May 11, 2011 at [facility]. He was found to have a full- thickness tear, along with a partial thickness tear involving the supraspinatus. The repair was felt to be quite satisfactory otherwise. He is not having the same pain as before. He has postsurgical pain. He has been using a sling. Today examination shows no evidence of infection. Incision is healing well. He has passive range of motion of 135 degrees. Intraoperative findings are thoroughly discussed. ASSESSMENT: Status post right shoulder surgery. 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 Most likely he should be ready for returning to work at that time in 2 months. ABK:MEDQ C: CONFIRM #: [id number] T MARKETING ASSISTANT documented in this encounter Plan of Treatment Not on filedocumented as of this encounter Visit Diagnoses Diagnosis Follow-up examination, following unspeci fied surgery - Primary documented in this encounter Care Teams Biogeographer Relationship Specialty Start Date End Date Carlos Solorio MD PCP - General 07/17/10 08/06/12 [address] [place] [address] documented as of this encounter
--- OUTSIDE RECORDS SUMMARY | 2022-01-20 08:17 | XMS_ITS | Encounter Summary ---
:1950 Author Organization [employer] Address [address] [address] Care Team Providers Name Role Phone Carlos Solorio MD Primary Care Provider Reason for Visit Reason Comments SHOULDER PAIN Encounter Details Date Type Department Care Team Description 10/18/2010 Office Visit Sawyer Aguilar MD Rotator cuff tear Orthopedics [address] [facility] (Primary Dx) [address] [place] [address] [phone] Social History Tobacco Use Types Packs/Day Years Used Date Smoking Tobacco: Never Assessed Sex Assigned at Date Recorded Not on file documented as of this encounter Last Filed Vital Signs Vital Sign Reading Time Taken Comments Blood Pressure - - Pulse - - Temperature - - Respiratory Rate - - Oxygen Saturation - - Inhaled Oxygen Concentration - - Weight 99.8 kg (220 lb) 10/18/2010 8:00 AM CDT Height 175.3 cm (5' 9) 10/18/2010 8:00 AM CDT Body Mass Index 32.49 10/18/2010 8:00 AM CDT documented in this encounter Progress Notes Sawyer Hemphill MD - 10/18/2010 12:00 PM CDT Progress Notes signed by Sawyer Hemphill MD at 10/23/10941 Author: Sawyer Hemphill MD Service: (none) Author Type: Physician Filed: 10/23/10941 Note Time: 10/18/10 1200 Status: Signed Production Lead: Sawyer Hemphill MD (Physician) NAME: KRYSTAL Sandoval MR#: [id number] CSN: [id number] AUTHENTICATING CLINICIAN: Sawyer Hemphill MD CONFIRM #: [id number] LOC: 511 CLINIC PROGRESS NOTE DATE OF VISIT: 10/18/2010 : 1950 Raul Dickson is a 60-year-old gentleman returning to clinic today to go over the results of MRI scan of his right shoulder. He was recently seen on October 09 2010 and found to have significant weakness and radiographic findings of AC joint DJD. MRI scan was obtained for that reason. In the meantime his symptoms his past medical history are not changed. Please refer to notes of October 09 2010. MRI scan results were reviewed thoroughly. He does have full-thickness rotator cuff tear of infraspinatus and partial tear of supraspinatus and subscapularis. Biceps tendinopathy is noted. AC joint arthrosis is noted. In my reading he is also found to have very early glenohumeral DJD. 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 PLAN: The situation was discussed options were discussed. Timely repair along with decompression was felt to be probably the best option. He wants to look at his work schedule and get back to us. We talked about probable time off of 4 weeks after the surgery. The proposed surgery will include arthroscopy compression distal clavicle resection and mini open rotator cuff repair. CC: GARETH GOVEA PA-C [id number] [place] [address] ABK:TENZIN C: CONFIRM #: [id number] Sawyer Hemphill MD - 10/18/2010 8:24 AM CDT see the dictated note. documented in this encounter Plan of Treatment Not on filedocumented as of this encounter Visit Diagnoses Diagnosis Rotator cuff tear - Primary Rotator cuff (capsule) sprain documented in this encounter Care Teams Dough Sheeter Relationship Specialty Start Date End Date Carlos Solorio MD PCP - General 07/17/10 08/06/12 [address] [place] [address] documented as of this encounter
--- OUTSIDE RECORDS SUMMARY | 2022-01-20 08:17 | XMS_ITS | Encounter Summary ---
:1950 Author Organization [employer] Address [address] [address] Care Team Providers Name Role Phone Carlos Solorio MD Primary Care Provider Reason for Visit Reason Comments Shoulder Problem Encounter Details Date Type Department Care Team Description 07/04/2011 Office Visit [place] [facility] Masoud Flores in joint, shoulder region (Primary Dx); Therapy J, PT Rotator cuff (capsule) sprain; [address] [address] [place] Unspecified [place] [address] [place], [place] [phone] (Wo rk) Social History Tobacco Use Types Packs/Day Years Used Date Smoking Tobacco: Never Assessed Sex Assigned at Date Recorded Not on file documented as of this encounter Progress Notes Masoud Flores, PT - 07/04/2011 1:30 PM CDT [facility] Services Physical Therapy Progress Note Visit Number: 16 Plan of Care/Certification Period: 90 days - 04/23/11 to 07/25/11 Referring Provider: Sawyer Hemphill MD Diagnosis: Right Rotator Cuff Tear Orders: Evaluate and treat. Standard Rotator Cuff Repair Protocol. Date of Onset: 16 months 09/13/2009 approximate Date of Surgery: 04/27/11 SUBJECTIVE: Better behind back is the hardest mostion. OBJECTIVE: PROM in supine: right shoulder flexion [...] sleeper IR stretch and towel stretch. ER 3# 1 x 15, FF 1# 1 x 10 ASSESSMENT: ROM improving weekly. toelrated PREs well. PLAN: continue 1x/week for ROM, add scapular PREs add ABD in sidely or stand Procedures: Manual Therapy: 5 minutes Therapeutic exercise: 25 minutes Total Treatment Time: 30 minutes Therapist: Masoud Flores PT, OCS, #[id number] documented in this encounter Plan of Treatment Not on filedocumented as of this encounter Visit Diagnoses Diagnosis Pain in joint, shoulder region - Primary Rotator cuff (capsule) sprain Unspecified orthopedic aftercare documented in this encounter Care Teams Kitchen Steward/Stewardess Relationship Specialty Start Date End Date Carlos Solorio MD PCP - General 07/17/10 08/06/12 [address] [place] [address] documented as of this encounter
--- OUTSIDE RECORDS SUMMARY | 2022-01-20 08:17 | XMS_ITS | Encounter Summary ---
:1950 Author Organization [facility] Address [address] [address] Care Team Providers Name Role Phone Carlos Solorio MD Primary Care Provider Reason for Visit Reason Comments Shoulder Problem Encounter Details Date Type Department Care Team Description 08/01/2011 Office Visit [place] [facility] Masoud Flores in joint, shoulder region (Primary Dx); Therapy J, PT Rotator cuff (capsule) sprain; [address] [address] [place] Unspecified [place] [address] [place], [place] [phone] (Wo rk) Social History Tobacco Use Types Packs/Day Years Used Date Smoking Tobacco: Never Assessed Sex Assigned at Date Recorded Not on file documented as of this encounter Progress Notes Masoud Flores, PT - 08/01/2011 8:58 AM CDT [facility] Services Physical Therapy Progress Note Visit Number: 18 Plan of Care/Certification Period: 90 days - 04/23/11 to 07/25/11 Referring Provider: Sawyer Hemphill MD Diagnosis: Right Rotator Cuff Tear Orders: Evaluate and treat. Standard Rotator Cuff Repair Protocol. Date of Onset: 16 months 09/13/2009 approximate Date of Surgery: 04/27/11 SUBJECTIVE: Can do most of the things he wants gettign stronger, some pain noted at etreme ROM like twisting underneath a car reach up under nad twisting otherwise min to no pain. OBJECTIVE: PROM in supine: Full PROM, Full AROM TREATMENT TODAY: UBE x 4' -PROM stretching to right shoulder in all [...] sleeper IR stretch and towel stretch. ER 5# 1 x 15, FF 5# 1 x 15, ABD 3# 1 x 12, lower trpa PRE 1 x 12 ASSESSMENT: Full AROM no pain. Independent in HEP. PLAN: continue prn. DC to Home program see previous DC note. Procedures: Therapeutic exercise: 25 minutes Total Treatment Time: 25 minutes Therapist: Masoud Floers PT, OCS, #[id number] documented in this encounter Plan of Treatment Not on filedocumented as of this encounter Visit Diagnoses Diagnosis Pain in joint, shoulder region - Primary Rotator cuff (capsule) sprain Unspecified orthopedic aftercare documented in this encounter Care Teams Bus Washer Relationship Specialty Start Date End Date Carlos Solorio MD PCP - General 07/17/10 08/06/12 [address] [place] [address] documented as of this encounter
--- OUTSIDE RECORDS SUMMARY | 2022-01-20 08:17 | XMS_ITS | Encounter Summary ---
:1950 Author Organization [employer] Address [address] [address] Care Team Providers Name Role Phone Carlos Solorio MD Primary Care Provider Reason for Visit Reason Comments Shoulder Problem Encounter Details Date Type Department Care Team Description 04/23/2011 Office Visit [place] [facility] Masoud Flores in joint, shoulder region (Primary Dx); Therapy J, PT Rotator cuff (capsule) sprain; [address] [address] [place] Unspecified [place] [address] [place], [place] [phone] (Wo rk) Social History Tobacco Use Types Packs/Day Years Used Date Smoking Tobacco: Never Assessed Sex Assigned at Date Recorded Not on file documented as of this encounter Progress Notes Masoud Flores PT - 04/23/2011 10:33 AM CST Physical Therapy Evaluation and Plan of Care Rotator Cuff Repair (Standard Protocol) Pre op Referring Provider: Sawyer Hemphill MD Diagnosis: Right Rotator Cuff Tear Orders: Evaluate and treat. Standard Rotator Cuff Repair Protocol. 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 OBJECTIVE: Clinical Global Impression: 08/22 pre op ROM: Passive Shoulder in supine Right Flexion 140+ Abduction 170+ External rotation 85+ Internal rotation 90+ Outcomes Quick DASH outcome measure completed. Score: 65.9 TREATMENT INTERVENTION: The patient was educated on the condition, planned therapy intervention and expectations from treatment. Goals were a collaborative effort of the therapist and patient. Risks, benefits and alternativesto treatment have been explained. Patient or guardian in agreement with care plan. Therapeutic Exercises: Performed and Instructed: The patient was instructed in, performed and provided with written handouts for the following: Shoulder pendulums Hand AROM, wrist AROM, and elbow AROM Scapular AROM Cervical AROM Wand external rotation passive ROM Instructed patient on correct technique on posture including scapular depression and posterior tilt. Performed Only: The following exercises were performed today in clinic: Shoulder PROM with the patient in supine. Education. Therapist provided patient education on the following topics: Diagnosis. Posture. Precautions. Restrictions. Therapy protocol. Signs of infection. Immobilizer wear and care. Home Modalities: Patient was instructed in the use of ice. ASSESSMENT: Therapist Impression: Therapist Impression: Symptoms appear to be consistent with referring diagnosis. Barriers to Learning: Rehab prognosis is good to achieved stated goals. Mood, orientation, and behavior were appropriate. Patient was alert and oriented. No apparent barriers to learning. Functional Impairments: Pain, Edema, ROM - decreased and Strength - decreased FUNCTIONAL GOALS: STG: Patient will be able to Sleeping: sleep through the night, wake from sleep Dressing: don pants/tuck in shirt, put hand in pocket Driving: drive, turn steering wheel Reaching: use affected extremity for reaching, reach into a closet/cupboard, reach over head in 90 day with Minimal difficulty. Participation Goal: Patient will perform weld with minimal difficulty/pain by the time of discharge in Physical therapy. PLAN: Next Treatment: PROM, Joint Mobilization and Modalities: cold pack Frequency and Duration: Patient will be seen 2x per week for 12 weeks Treatment Plan: AROM, PROM, Joint mobilization, Strength, Home exercise program, Wound care, Scar management, Edema control, Diagnosis education, Modalities: ice, interferential, TENS unit, hotpack Discharge is planned when functional outcomes are achieved, or adequate progress is made such that the patient is able to self-manage with the home program. Patient was provided clinic number and instructed to call with any questions. The physician electronic signature certifies the medical necessity for this plan of care while underhis/her care. Plan of Care/Certification Period: 90 days - 04/23/11 to 07/25/11 Charges: PT Eval Therapeutic exercise: 20 minutes Total Treatment Time: 30 minutes Therapist Signature: Masoud Flores PT, [facility], #[id number] 10:33 AM documented in this encounter Plan of Treatment Not on filedocumented as of this encounter Visit Diagnoses Diagnosis Pain in joint, shoulder region - Primary Rotator cuff (capsule) sprain Unspecified orthopedic aftercare documented in this encounter Care Teams Customs Collector Relationship Specialty Start Date End Date Carlos Solorio MD PCP - General 07/17/10 08/06/12 [address] [place] [address] documented as of this encounter
--- OUTSIDE RECORDS SUMMARY | 2022-01-20 08:17 | XMS_ITS | Encounter Summary ---
:1950 Author Organization [employer] Address [address] [address] Care Team Providers Name Role Phone Carlos Solorio MD Primary Care Provider Reason for Visit Reason Comments Shoulder Problem Encounter Details Date Type Department Care Team Description 05/11/2011 Office Visit [place] [facility] Masoud Flores in joint, shoulder region (Primary Dx); Therapy J, PT Rotator cuff (capsule) sprain; [address] [address] [place] Unspecified [place] [address] [place], [place] [phone] (Wo rk) Social History Tobacco Use Types Packs/Day Years Used Date Smoking Tobacco: Never Assessed Sex Assigned at Date Recorded Not on file documented as of this encounter Progress Notes Masoud Flores, PT - 05/11/2011 7:36 AM CST [facility] Services Physical Therapy Progress Note Visit Number: 5 Plan of Care/Certification Period: 90 days - 04/23/11 to 07/25/11 Referring Provider: Sawyer Hemphill MD Diagnosis: Right Rotator Cuff Tear Orders: Evaluate and treat. Standard Rotator Cuff Repair Protocol. Date of Onset: 16 months 09/13/2009 approximate Date of Surgery: 04/27/11 SUBJECTIVE: Sore form last treatment, worked it good recovered fine. OBJECTIVE: PROM in supine: right shoulder flexion 135 degrees, IR 51 degrees, ER 45 degrees, abduction 130 degrees. TREATMENT TODAY: -PROM stretching to right shoulder in all directions with mild end range stretch within pain tolerance, increased muscle guarding noted. -Gentle grade I oscillations to promote relaxation of shoulder, several verbal cues for relaxation and deep breathing to help promote relaxation. -Cold pack to right shoulder in sitting with sling on x 10 minutes ASSESSMENT: Toelrated treatment well, ROM increasing. PLAN: Continue with Passive Range of Motion and progress through protocol as appropriate. Procedures: Manual Therapy: 5 minutes Therapeutic exercise: 20 minutes Ice 15 minutes Total Treatment Time: 40 minutes Therapist: Masoud Flores PT, OCS, #[id number] 7:36 AM documented in this encounter Plan of Treatment Not on filedocumented as of this encounter Visit Diagnoses Diagnosis Pain in joint, shoulder region - Primary Rotator cuff (capsule) sprain Unspecified orthopedic aftercare documented in this encounter Care Teams Chief Building Inspector Relationship Specialty Start Date End Date Carlos Solorio MD PCP - General 07/17/10 08/06/12 [address] [place] [address] documented as of this encounter
--- OUTSIDE RECORDS SUMMARY | 2022-01-20 08:17 | XMS_ITS | Encounter Summary ---
:1950 Author Organization [employer] Address [address] [address] Care Team Providers Name Role Phone Carlos Solorio MD Primary Care Provider Encounter Details Date Type Department Care Team Description 11/18/2009 Office Visit [facility] [place] [address] [address] [place], [place] [address] (Wo rk) Social History Tobacco Use Types Packs/Day Years Used Date Smoking Tobacco: Never Assessed Sex Assigned at Date Recorded Not on file documented as of this encounter Last Filed Vital Signs Vital Sign Reading Time Taken Comments Blood Pressure 125/83 11/18/2009 5:02 PM CDT Pulse 74 11/18/2009 5:02 PM CDT Temperature 37.2 ??C (99 ??F) 11/18/2009 5:02 PM CDT ORAL C: 37.2 C Respiratory Rate 14 11/18/2009 5:02 PM CDT Oxygen Saturation - - Inhaled Oxygen Concentration - - Weight - - Height - - Body Mass Index - - documented in this encounter Progress Notes Allyson Galeano MD - 11/18/2009 12:01 AM CDT Progress Notes signed by Allyson Galeano MD at 12/12/09 6011 Author: Allyson Galeano MD Service: (none) Author Type: Physician Filed: 08/06/10 0221 Note Time: 11/18/09 0001 Status: Signed Old Testament Professor: Allyson Galeano MD (Physician) NAME: NICOLETTE RICE MR#: [id number] ACCT: [id number] VISIT: [id number] DICTATING CLINICIAN: Allyson Galeano MD CONFIRM #: [id number] LOC: 520 CLINIC PROGRESS NOTE DATE OF VISIT: 11/18/2009 : 1950 CHIEF COMPLAINT: Possible sinus infection and sore throat. HISTORY: Pleasant 59-year-old comes in today complaining of not feeling very well. He has been sick for the past 5 days, sore throat and sinus drainage. Also had a lot of facial pain. His lymph nodes seem to be swollen in his neck. He has a lot of postnasal drip. No fevers or chills. Has not complained of a cough. PAST MEDICAL HISTORY: Reviewed in [employer]. PAST SURGICAL HISTORY: Reviewed in [employer]. MEDICATIONS: Reviewed in [employer]. ALLERGIES: NO KNOWN DRUG ALLERGIES. SOCIAL HISTORY: Nonsmoker. OBJECTIVE: VITAL SIGNS: Temperature 98.9, pulse 74, respirations 14, blood pressure 125/83. GENERAL: Alert and oriented in no apparent distress. HEENT: Tympanic membranes show no sign of infection. Sinuses are tender in the maxillary region. Nares reveal swollen and erythematous turbinates. Oropharynx is pink and moist. Thick green postnasal drip. LUNGS: Clear to auscultation bilaterally. HEART: Regular without murmurs, rubs or gallops. ABDOMEN: Soft, nontender. SKIN: No rashes, cyanosis. LABORATORY DATA: Strep screen is negative. ASSESSMENT: Sinusitis. PLAN: Augmentin 875 mg p.o. b.i.d. x10 days. , ibuprofen and Tylenol. Followup if symptoms persist or worsen. KMM:MEDQ C: CONFIRM #: [id number] documented in this encounter Plan of Treatment Not on filedocumented as of this encounter Visit Diagnoses Not on filedocumented in this encounter Care Teams Desktop Publishing Associate Relationship Specialty Start Date End Date Carlos Solorio MD PCP - General 07/17/10 08/06/[address] [place], [place] [address] documented as of this encounter
--- OUTSIDE RECORDS SUMMARY | 2022-01-20 08:17 | XMS_ITS | Encounter Summary ---
:1950 Author Organization [facility] Address [address], [place] [address] Care Team Providers Name Role Phone Carlos Solorio MD Primary Care Provider Reason for Visit Reason Comments Shoulder Problem Encounter Details Date Type Department Care Team Description 05/21/2011 Office Visit [place] [facility] Masoud Flores in joint, shoulder region (Primary Dx); Therapy J, PT Rotator cuff (capsule) sprain; [address] [address] [address] [place] [address] [place], [place] [phone] (Wo rk) Social History Tobacco Use Types Packs/Day Years Used Date Smoking Tobacco: Never Assessed Sex Assigned at Date Recorded Not on file documented as of this encounter Progress Notes Masoud Flores, PT - 05/21/2011 2:32 PM CST [facility] Physical Therapy Progress Note Visit Number: 8 Plan of Care/Certification Period: 90 days - 04/23/11 to 07/25/11 Referring Provider: Sawyer Hemphill MD Diagnosis: Right Rotator Cuff Tear Orders: Evaluate and treat. Standard Rotator Cuff Repair Protocol. Date of Onset: 16 months 09/13/2009 approximate Date of Surgery: 04/27/11 SUBJECTIVE: Sore but gradually less pain. OBJECTIVE: PROM in supine: right shoulder [...] 10' ASSESSMENT: Toelrated treatment well, ROM increasing. overall but no change today. PLAN: Continue with Passive Range of Motion and progress through protocol as appropriate. Procedures: Manual Therapy: 5 minutes Therapeutic exercise: 20 minutes cold pack x 10' Total Treatment Time: 35 minutes Therapist: Masoud Flores PT, OCS, #[id number] documented in this encounter Plan of Treatment Not on filedocumented as of this encounter Visit Diagnoses Diagnosis Pain in joint, shoulder region - Primary Rotator cuff (capsule) sprain Unspecified orthopedic aftercare documented in this encounter Care Teams Top Dyeing Machine Tender Relationship Specialty Start Date End Date Carlos Solorio MD PCP - General 07/17/10 08/06/12 [address] [place] [address] documented as of this encounter
--- OUTSIDE RECORDS SUMMARY | 2022-01-20 08:18 | XMS_ITS | Encounter Summary ---
:1950 Author Organization [facility] Address [address] [address] Care Team Providers Name Role Phone Carlos Solorio MD Primary Care Provider Encounter Details Date Type Department Care Team Description 01/31/2009 PN Conversion Only [place] [address] [address] [place], [place] [address] (Wo rk) Social History Tobacco Use Types Packs/Day Years Used Date Smoking Tobacco: Never Assessed Sex Assigned at Date Recorded Not on file documented as of this encounter Plan of Treatment Not on filedocumented as of this encounter Procedures Procedure Name Priority Date/Time Associated Diagnosis Comme nts STREP GROUP A Routine 01/31/2009 5:07 PM Results for this ANTIGEN TEST CDT procedure are i n the results section. BETA STREP FOLLOWUP Routine 01/31/2009 5:07 PM Re sults for this CDT procedure are i n the results section. documented in this encounter Results Strep Group A Antigen Test (01/31/2009 5:07 PM CDT) Analysis Performed At Patho logist Time Signature Strep Group A Negative Negative HP CONVERSION Antigen Test Comment: Culture to follow. Specimen (Source) Anatomical Collection Method Collection Time Re ceived Time Location / / Volume Laterality 01/31/2009 5:07 PM CDT Allyson Galeano MD LAB_1 Performing Organization Address City/State/ZIP Code Phon e Number HP CONVERSION Beta Strep Followup (01/31/2009 5:07 PM CDT) P athologist Signature Strep Screen SEE TEXT HP CONVERSION Comment: Patient: NICOLETTE RICE Rapid Strep Follow up Culture ? Collected: ??[id number] ??[id number] Source: Throat ?Processed: ??[id number] ??[id number] ? 1V Final Report ------ ?[id number] ??[id number] No beta hemolytic Strep group A isolated . Specimen (Source) Anatomical Collection Method Collection Time Re ceived Time Location / / Volume Laterality 01/31/2009 5:07 PM CDT Allyson Galeano MD LAB_1 Performing Organization Address City/[facility] Code Phon e Number HP CONVERSION documented in this encounter Visit Diagnoses Not on filedocumented in this encounter Care Teams Product Marketing Analyst Relationship Specialty Start Date End Date Carlos Solorio MD PCP - General 07/17/10 08/06/12 [address] [place] [address] documented as of this encounter
--- OUTSIDE RECORDS SUMMARY | 2022-01-20 08:18 | XMS_ITS | Encounter Summary ---
:1950 Author Organization [facility] Address [address] [address] Care Team Providers Name Role Phone Carlos Solorio MD Primary Care Provider Encounter Details Date Type Department Care Team Description 09/17/2004 Office Visit [facility] [place] [address] [facility] [address] [place] [address] [place], [place] [phone] (Wo rk) Social History Tobacco Use Types Packs/Day Years Used Date Smoking Tobacco: Never Assessed Sex Assigned at Date Recorded Not on file documented as of this encounter Progress Notes Renato Chery MD - 09/17/2004 12:01 AM CDT Progress Notes signed by Renato Chery MD at 09/19/04 1400 Author: Renato Chery MD Service: (none) Author Type: Physician Filed: 08/04/10 0625 Note Time: 09/17/04 0001 Status: Signed Motor Pool Driver: Renato Chery MD (Physician) NAME: NICOLETTE RICE MR: [id number] ACCT: [id number] VISIT: [id number] DICTATING CLINICIAN: RENATO CHERY MD,MS JOB: [id number] CLINIC PROGRESS NOTE DATE OF VISIT: 09/17/2004 SUBJECTIVE: Chief Complaint: Possible sinus infection. HPI: Mr. Rice is a 54-year-old male who comes in for evaluation of what he describes as a possible sinus infection. He states he has had what he thought was a cold now for over 2 weeks. By that he means head and nasal congestion, some ear pressure, but no pain and intermittent sore throat. He also has a cough productive of some yellowish sputum and has noticed small amounts of blood tinge to the sputum as well. He states, however, over the last 3 or 4 days his symptoms have gotten worse. He continues to feel more head and sinus pain and pressure and feels he has more nasal congestion as well. During this time he denies any fever or chills. REVIEW OF SYSTEMS: No fever, chills or night sweats. HEENT: Denies any ear pain, but does have ear pressure. Also describes nasal congestion and intermittent sore throat. Chest: Has a congested cough productive of the yellowish sputum with some blood tinge to it as well. Denies any shortness of breath or wheezing. The rest of review of systems is noncontributory. PAST MEDICAL HISTORY: No significant medical or surgical illness. He did have influenza diagnosed in early August. ADR/ALLERGIES: NO KNOWN ALLERGIES. MEDICATIONS: No medications. OBJECTIVE: VS: BP: 127/72. T: 98.7. P: 73. R: 12. He is well-developed, well-nourished and in no acute distress. HEENT: TMs are dull and retracted. Nose - purulent discharge bilaterally with tenderness over both maxillary sinuses. Pharynx - mild inflammation without exudates. Thick PND is noted. NECK: Supple. Some high anterior cervical and submandibular adenopathy is noted. CHEST: A few scattered rhonchi. No rales or wheezes. HEART: Regular rhythm without murmurs or gallops. ABDOMEN: Slightly overweight, but otherwise soft, nontender without rigidity or masses. SKIN: Clear. ASSESSMENT: Sinusitis and bronchitis. PLAN: Diagnostic: None. Treatment: Z-Dimitrios for 5 days. Side-effects are discussed. Plenty of fluids encouraged. Symptomatic treatment discussed. The patient to follow-up with primary physician if no improvement. WMS:[id number] C: 09/18/04 11:04 DOCUMENT: [id number] documented in this encounter Plan of Treatment Not on filedocumented as of this encounter Visit Diagnoses Not on filedocumented in this encounter Care Teams Television Journalist Relationship Specialty Start Date End Date Carlos Solorio MD PCP - General 07/17/10 08/06/12 [address] [place] [address] documented as of this encounter
--- OUTSIDE RECORDS SUMMARY | 2022-01-20 08:18 | XMS_ITS | Encounter Summary ---
:1950 Author Organization [facility] Address [address], [place] [address] Care Team Providers Name Role Phone Carlos Solorio MD Primary Care Provider Encounter Details Date Type Department Care Team Description 06/15/2008 Office Visit [facility] Sw[place]na, [address] [facility] [place] [address] [place] [address] [address] [place], [place] [phone] (Wo rk) Social History Tobacco Use Types Packs/Day Years Used Date Smoking Tobacco: Never Assessed Sex Assigned at Date Recorded Not on file documented as of this encounter Last Filed Vital Signs Vital Sign Reading Time Taken Comments Blood Pressure 136/67 06/15/2008 6:44 PM ENGINEERING SCIENTIST Pulse 81 06/15/2008 6:44 PM ENGINEERING SCIENTIST Temperature 36.3 ??C (97.3 ??F) 06/15/2008 6:44 PM ORAL C: 3 6.3 C ENGINEERING SCIENTIST Respiratory Rate 14 06/15/2008 6:44 PM ENGINEERING SCIENTIST Oxygen Saturation - - Inhaled Oxygen Concentration - - Weight - - Height - - Body Mass Index - - documented in this encounter Progress Notes Leann Barcenas - 06/15/2008 12:01 AM CST Progress Notes signed by Leann Barcenas MD at 07/14/082033 Author: Leann Barcenas MD Service: (none) Author Type: Physician Filed: 08/05/10 1309 Note Time: 06/15/08 0001 Status: Signed Cell Changer: Leann Barcenas MD (Physician) NAME: NICOLETTE RICE MR#: [id number] ACCT: [id number] VISIT: [id number] DICTATING CLINICIAN: Leann Barcenas MD CONFIRM #: [id number] LOC: [address] [place] [address] OCCUPATIONAL MEDICINE REPORT DATE OF VISIT: 06/15/2008 SUBJECTIVE: : 1950. COMPANY NAME: [employer]. DATE OF INJURY: 06/15/08. IS CONDITION WORK RELATED? Yes. CHIEF COMPLAINT: Right leg pain. HISTORY OF PRESENT ILLNESS: The patient is a 57-year-old gentleman who was working for [employer] at 11:00 this morning. Patient was injured working. He slipped on an oil spill in the box of his truck. His right foot caught on a pail, twisting his right lower extremity. 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 He denies pain while driving, but has significant heel and calf pain with ambulation. Pain is bearable. Manageable pain at rest. Has not taking ogrg-cre-ymkqozy analgesics. Denies weakness or paresthesias. Has been walking with a limp. No previous injuries or surgery to this extremity. Patient has swelling without erythema noted. PAST MEDICAL HISTORY: History of plantar fasciitis. Reviewed and updated PHP in LastWord. MEDICATIONS: Reviewed and updated PHP in [employer]Word. ADR/ALLERGIES: REVIEWED AND UPDATED PHP IN [employer]ST[employer]. SOCIAL HISTORY: . REVIEW OF SYSTEMS: No chest pain or shortness of breath. No recent illness. OBJECTIVE: VS: BP: 136/67. T: 97.4. P: 81. R: 14. GENERAL: Patient is a 57-year-old gentleman who is no acute distress. Affect is pleasant. HEENT: Sclerae anicteric. No conjunctivitis. Mucous membranes moist. No erythema, edema, or exudate of the oral mucosa or posterior pharynx. NECK: Full range of motion without lymphadenopathy, thyromegaly, or mass. HEART: S1, S2. Regular rate and rhythm without murmurs, rubs, or gallops. LUNGS: Clear to auscultation. ABDOMEN: Soft, nontender, obese, nondistended. RIGHT LOWER EXTREMITY: Calf circumference measured 10 cm below the tibial tuberosity is 1.5 cm greater on the right versus left. Posterior tibial and dorsalis pedis pulses intact. Gross and pain/temperature sensation intact bilaterally. Cap refill less than 3 seconds. No gross abnormalities, but slight swelling and ecchymosis involving the right calf. Right calf is tender posteriorly and laterally. Homans' sign negative. 5/5 strength with plantar and dorsiflexion. Achilles intact. Right lower extremity x-rays, significant heel spurring with chronic abnormality, possible spurring involving the inferior margin of the calcaneus. No evidence of acute fracture. Possible old distal fibula fracture. URGENT CARE COURSE: Patient was fitted for a CamWalker. Ambulation and pain were improved post CamWalker fitting. Follow up with [facility]. Follow up if emergent symptoms, suggestive of DVT or compartment syndrome, develop. These symptoms were discussed at length with patient and today. Worker's compensation form was completed, as noted in [employer]. ASSESSMENT: Right lower extremity pain, possible gastrocnemius strain versus tear. PLAN: Worker's compensation form completed, as noted above. NSAIDs, heat, and ice were discussed. FOLLOWUP DATE: Wear CamWalker until followup with [facility] tomorrow. MAXIMUM MEDICAL IMPROVEMENT: UNDETERMINED PERMANENT PARTIAL DISABILITY RATING: UNDETERMINED HCV:[id number] C: 06/16/08 10:51 CONFIRM #: [id number] documented in this encounter Plan of Treatment Not on filedocumented as of this encounter Procedures Procedure Name Priority Date/Time Associated Diagnosis Comme nts XR ANKLE RT 1 VIEW Routine 06/15/2008 8:10 PM Res ults for this ENGINEERING SCIENTIST procedure are i n the results section. XR CALCANEUS RT 2+ Routine 06/15/2008 8:09 PM Res ults for this VIEWS ENGINEERING SCIENTIST procedure are i n the results section. XR TIBIA FIBULA RT Routine 06/15/2008 8:08 PM Res ults for this 2 VIEWS ENGINEERING SCIENTIST procedure are i n the results section. documented in this encounter Results XR Ankle Rt 1 View (06/15/2008 8:10 PM ENGINEERING SCIENTIST) Anatomical Region Laterality Modality Lower Extremity, Ankle, Foot & Ankle Oth er Specimen (Source) Anatomical Location Collection Method / Collectio n Time Received Time / Laterality Volume Narrative 06/15/2008 8:10 PM ENGINEERING SCIENTIST FINDINGS: ??No definite acute fractures. ??No dislocations. ??There is an old distal fibular avulsion fracture. ??There are both plantar and superior calcaneal heel spurs. ??There i s subtle cortical irregularity along the inferior margin of the calcane us in the midlevel. ??This is of uncertain etiology of significance bu t does not appear to represent an acute fracture. ??If clinic al concern for fracture persists, followup imaging could be cons idered. ??Ankle mortise and talar dome are intact. tss/[id number] Dictating PIERRE CROWELL DO Procedure Note Pierre Bose, DO - 06/15/2016For matting of this note might be different from the original. FINDINGS: No definite acute fractures. N o dislocations. There is an old distal fibular avulsion fracture. There are both plantar and superior calcaneal heel spurs. There is subtle cortical irregularity along the inferior margin of the calcane us in the midlevel. This is of uncertain etiology of significance bu t does not appear to represent an acute fracture. If clinical concern for fracture persists, followup imaging could be cons idered. Ankle mortise and talar dome are intact. tss/[id number] Dictating PIERRE CROWELL DO Leann Barcenas MD RAD GD XR Calcaneus Rt 2+ Views (06/15/2008 8:09 PM ENGINEERING SCIENTIST) Anatomical Region Laterality Modality Lower Extremity, Foot, Foot & Ankle Othe r Specimen (Source) Anatomical Location Collection Method / Collectio n Time Received Time / Laterality Volume Narrative 06/15/2008 8:09 PM ENGINEERING SCIENTIST FINDINGS: ??No definite acute fractures. ??No dislocations. ??There is an old distal fibular avulsion fracture. ??There are both plantar and superior calcaneal heel spurs. ??There i s subtle cortical irregularity along the inferior margin of the calcane us in the midlevel. ??This is of uncertain etiology of significance bu t does not appear to represent an acute fracture. ??If clinic al concern for fracture persists, followup imaging could be cons idered. ??Ankle mortise and talar dome are intact. tss/[id number] Dictating PIERRE CROWELL DO Procedure Note Pierre Bose, DO - 06/15/2016For matting of this note might be different from the original. FINDINGS: No definite acute fractures. N o dislocations. There is an old distal fibular avulsion fracture. There are both plantar and superior calcaneal heel spurs. There is subtle cortical irregularity along the inferior margin of the calcane us in the midlevel. This is of uncertain etiology of significance bu t does not appear to represent an acute fracture. If clinical concern for fracture persists, followup imaging could be cons idered. Ankle mortise and talar dome are intact. tss/ Dictating PIERRE CROWELL DO Leann Barcenas MD RAD GD XR Tibia Fibula Rt 2 Views (06/15/2008 8:08 PM ENGINEERING SCIENTIST) Anatomical Region Laterality Modality Lower Extremity, Knee, Leg, Foot & Ankle Other Specimen (Source) Anatomical Location Collection Method / Collectio n Time Received Time / Laterality Volume Narrative 06/15/2008 8:08 PM ENGINEERING SCIENTIST FINDINGS: ??No definite acute fractures. ??No dislocations. ??There is an old distal fibular avulsion fracture. ??There are both plantar and superior calcaneal heel spurs. ??There i s subtle cortical irregularity along the inferior margin of the calcane us in the midlevel. ??This is of uncertain etiology of significance bu t does not appear to represent an acute fracture. ??If clinic al concern for fracture persists, followup imaging could be cons idered. ??Ankle mortise and talar dome are intact. tss/[id number] Dictating PIERRE CROWELL DO Procedure Note Pierre Bose, DO - 06/15/2016For matting of this note might be different from the original. FINDINGS: No definite acute fractures. N o dislocations. There is an old distal fibular avulsion fracture. There are both plantar and superior calcaneal heel spurs. There is subtle cortical irregularity along the inferior margin of the calcane us in the midlevel. This is of uncertain etiology of significance bu t does not appear to represent an acute fracture. If clinical concern for fracture persists, followup imaging could be cons idered. Ankle mortise and talar dome are intact. tss/[id number] Dictating PIERRE CROWELL DO Leann Barcenas MD RAD GD documented in this encounter Visit Diagnoses Not on filedocumented in this encounter Care Teams Arboreal Scientist Relationship Specialty Start Date End Date Carlos Solorio MD PCP - General 07/17/10 08/06/12 [address] [place] [place] [id number] documented as of this encounter
--- OUTSIDE RECORDS SUMMARY | 2022-01-20 08:18 | XMS_ITS | Encounter Summary ---
:1950 Author Organization [facility] Address [address] [address] Care Team Providers Name Role Phone Carlos Solorio MD Primary Care Provider Encounter Details Date Type Department Care Team Description 02/29/2004 PN Conversion Only PATHOLOGY TECHNICIAN [address], [address] [place] [address] Social History Tobacco Use Types Packs/Day Years Used Date Smoking Tobacco: Never Assessed Sex Assigned at Date Recorded Not on file documented as of this encounter Plan of Treatment Not on filedocumented as of this encounter Procedures Procedure Name Priority Date/Time Associated Comments Diagnosis URINALYSIS CHEMICALS Routine 02/29/2004 11:09 AM Results for this ONLY TABULATING CLERK procedure are i n the results section. documented in this encounter Results Urinalysis Chemicals Only (02/29/2004 11:09 AM TABULATING CLERK) [facility] Method Time Signature U Specific 1.020 1.005 - 25 HP CONVERSION Speed pH Urine 7.0 4.5 - 7.5 HP CONVERSION Protein Urine Negative Neg-Trac HP CONVERSION Glucose, Negative Neg-Trac HP CONVERSION Qualitative U Ketones Negative Negative HP CONVERSION U BILI Negative Negative HP CONVERSION Blood Urine Negative Negative HP CONVERSION Nitrite Urine Negative Negative HP CONVERSION Leukocyte Negative Negative HP CONVERSION Esterase Urine Urobilinogen Negative 0.2 - 1.0 HP CONVERSION Urine Specimen (Source) Anatomical Collection Method Collection Time Re ceived Time Location / / Volume Laterality 02/29/2004 11:09 AM TABULATING CLERK Dominique Angela MD LAB_1 Performing Organization Address City/State/ZIP Code Phon e Number HP CONVERSION documented in this encounter Visit Diagnoses Not on filedocumented in this encounter Care Teams Shaker Out Relationship Specialty Start Date End Date Carlos Solorio MD PCP - General 07/17/10 08/06/12 [address] [address] [place] [id number] documented as of this encounter
--- OUTSIDE RECORDS SUMMARY | 2022-01-20 08:18 | XMS_ITS | Encounter Summary ---
:1950 Author Organization [facility] Access Address [address], [place] [address] Care Team Providers Name Role Phone Carlos Solorio MD Primary Care Provider Encounter Details Date Type Department Care Team Description 09/28/2004 PN Conversion Only [place] CONVERSION Beverley Lawton, [address] [place], [place] [phone] [address] [place], [place] [address] (Wo rk) Social History Tobacco Use Types Packs/Day Years Used Date Smoking Tobacco: Never Assessed Sex Assigned at Date Recorded Not on file documented as of this encounter Plan of Treatment Not on filedocumented as of this encounter Procedures Procedure Name Priority Date/Time Associated Diagnosis Comme nts COMPLETE BLOOD Routine 09/28/2004 1:54 PM Results for this COUNT-W/DIFF CDT procedure are i n the results section. documented in this encounter Results Complete Blood Count-W/Diff (09/28/2004 1:54 PM CDT) [facility] Method Time Signature White Blood Cell 10.3 3.8 - 11.0 HP CONVERSIO N Count K/cmm Red Blood Cell 4.96 4.20 - HP CONVERSION Count 5.90 m/cmm Hemoglobin 14.6 13.4 - HP CONVERSION 17.5 gm/dL Hematocrit 43.3 39.0 - HP CONVERSION 51.0 % Mean Corpuscular 87.3 80.0 - HP CONVERSION Volume 100.0 fl Mean Corpuscular 29.4 27.0 - HP CONVERSION Hemoglobin 34.0 pg Mean Corpuscular 33.7 32.0 - HP CONVERSION Hemoglobin Conc 36.5 gm/dL [place] RDW 13.4 11.0 - HP CONVERSION 15.0 % Platelet Count 241 140 - 450 HP CONVERSION k/cmm Differential Auto-Dif No normal HP CONVERSION Verify range Neutrophils 6.8 2.0 - 7.5 HP CONVERSION Absolute Count K/cmm Neutrophil 66.7 50.0 - HP CONVERSION 75.0 % Lymphocyte % 22.4 20.0 - HP CONVERSION 40.0 % Monocyte 7.5 5.0 - 14.0 HP CONVERSION % Eosinophil 2.5 0.0 - 6.0 HP CONVERSION % Basophil % 0.9 0.0 - 2.0 HP CONVERSION % Specimen (Source) Anatomical Collection Method Collection Time Re ceived Time Location / / Volume Laterality 09/28/2004 1:54 PM CDT Beverley Lawton PA-C LAB_1 Performing Organization Address City/State/ZIP Code Phon e Number HP CONVERSION documented in this encounter Visit Diagnoses Not on filedocumented in this encounter Care Teams Pcat Instructor Relationship Specialty Start Date End Date Carlos Solorio MD PCP - General 07/17/10 08/06/12 [address] [place] Mcdonough [phone] documented as of this encounter
--- OUTSIDE RECORDS SUMMARY | 2022-01-20 08:18 | XMS_ITS | Encounter Summary ---
:1950 Author Organization [employer] Address [address], [place] [address] Care Team Providers Name Role Phone Unassigned, Provider Primary Care Provider Unavailable Encounter Details Date Type Department Care Team Description 05/26/2002 Hospital Encounter [facility] Carlos Vargas MD Echocardiogram [address] [place], [place] [address] [place] [address] [phone] Social History Tobacco Use Types Packs/Day Years Used Date Smoking Tobacco: Never Assessed Sex Assigned at Date Recorded Not on file documented as of this encounter Plan of Treatment Not on filedocumented as of this encounter Procedures Procedure Name Priority Date/Time Associated Comments Diagnosis STRESS ECHOCARDIOGRAM Routine 05/26/2002 11:06 Lyric duarte for this AM TRUST MANAGER procedure are i n the results section. documented in this encounter Results Stress Echocardiogram (05/26/2002 11:06 AM TRUST MANAGER) Specimen (Source) Anatomical Collection Method Collection Time Re ceived Time Location / / Volume Laterality 05/26/2002 11:06 AM TRUST MANAGER Narrative HP CONVERSION - 05/26/2002 11:06 AM TRUST MANAGER Resting heart rate: 80 ?Resting blood pressure: 150/90 Maximum predicted heart rate: 169 ? Maximum blood pressure: 170/80 Maximum heart rate achieved: ??144 ? Rate pressure product: ??24,480 % Maximum heart rate achieved: 85% ?Exercise duration: 13:32 INDICATION FOR EXAM: ??Abnormal electroc ardiogram. This study included two-dimensional echo , pulse, continuous wave and color Doppler. MEDICATIONS: ??No medications which woul d affect test results. PROTOCOL: ??Bike ergometer-echocardiogra m with contrast. SYMPTOMS: ??Fatigue; Protocol completed; Predicted heart rate achieved. ECG, REST: ??Mild non-specific ST-T segm ents. ECG, STRESS: ??No significant ST segment shifts noted. ECHO, REST: ??Chamber size, wall motion, and wall thickness are normal. No significant valvular abnormalities ar e seen. ??The visually estimated left ventricular ejection frac tion is 55-60%. ECHO, STRESS: ??All segments display amilcar ropriate hyperkinesis; ejection fraction increases appropriately. CONCLUSION: ??1. ??Normal exercise echoc ardiogram with adequate ? heart rate and workload. ? 2. ??No evidence for inducible ischemia. ? 3. ??Image quality wa s acceptable. Carlos Solorio MD PN ECHO ORDERABLES Performing Organization Address City/State/ZIP Code Phon e Number HP CONVERSION documented in this encounter Visit Diagnoses Not on filedocumented in this encounter Care Teams Steam Powerplant Supervisor Relationship Specialty Start Date End Date Unassigned, Provider PCP - General 01/17/00 11/17/[address] [place] [address] documented as of this encounter
--- OUTSIDE RECORDS SUMMARY | 2022-01-20 08:18 | XMS_ITS | Encounter Summary ---
:1950 Author Organization [employer] Address [address], [place] [address] Care Team Providers Name Role Phone Carlos Solorio MD Primary Care Provider Encounter Details Date Type Department Care Team Description [facility]2004 [facility] [place] [employer] [address] [place] [address] [place] [address] [address] [phone] [place], [place] [address] (Wo rk) Social History Tobacco Use Types Packs/Day Years Used Date Smoking Tobacco: Never Assessed Sex Assigned at Date Recorded Not on file documented as of this encounter Last Filed Vital Signs Vital Sign Reading Time Taken Comments Blood Pressure 116/74 09/28/2004 1:26 PM CDT Pulse - - Temperature 36.8 ??C (98.2 ??F) 09/28/2004 1:26 PM C: 36.8 C CDT Respiratory Rate - - Oxygen Saturation - - Inhaled Oxygen Concentration - - Weight 107.5 kg (236 lb 15.9 09/28/2004 1:26 PM C: 107. 5kg oz) CDT Height - - Body Mass Index - - documented in this encounter Progress Notes Rona Lawton PA-C - 09/28/2004 12:01 AM CDT Progress Notes signed by Rona Lawton PA-C at 10/02/04 1444 Author: Rona Lawton PA-C Service: (none) Author Type: Physician Public Policy Coordinator Filed: 08/04/10 0638 Note Time: 09/28/04 0001 Status: Signed Carbon Grinder: Rona Lawton PA-C (Physician Public Policy Coordinator) NAME: NICOLETTE RICE MR: [id number] ACCT: [id number] VISIT: [id number] DICTATING CLINICIAN: RONA LAWTON PA-C JOB: [id number] CLINIC PROGRESS NOTE DATE OF VISIT: 09/28/2004 SUBJECTIVE: Nicolette is a 54-year-old male who presents to the clinic today complaining of sinus symptoms. He has been sick for about eight weeks. He has a sore throat, sinus congestion. He thinks he has some low-grade fevers on occasion. Complains of postnasal drainage and a productive cough that sometimes wakes him up. He has not had any night sweats or weight loss. He was seen in urgent care recently, started on a Zithromax Z-Dimitrios, but as soon as the medication ran out, he started to feel ill again. He was improving. MEDICAL HISTORY: No chronic illnesses or history of asthma. SOCIAL HISTORY: He is a nonsmoker. 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 ADR/ALLERGIES: CURRENT IN LASTWORD. MEDICATIONS: Current in LastWord. OBJECTIVE: [facility]: [facility] Wt: 237.4 lb. Patient in no acute distress. TMs, external canals, nasal mucosa, posterior pharynx, neck, lungs, and heart were all normal on exam. Chest x-ray was obtained today, as well as a CBC. Possible left lower lobe infiltrate appreciated on the chest x-ray per my reading. CBC was normal. ASSESSMENT: Sinusitis, possible left lower lobe pneumonia. PLAN: Patient was started on Augmentin 875 b.i.d. and Entex PSE. Encouraged fluids and rest. Follow up if symptoms are not improving. IMPRESSION: Sinusitis, possible early left lower lobe pneumonia. TMG:[id number] C: 09/29/04 10:33 DOCUMENT: [id number] documented in this encounter Plan of Treatment Not on filedocumented as of this encounter Procedures Procedure Name Priority Date/Time Associated Diagnosis Comme nts XR CHEST 2 VIEWS Routine 09/28/2004 2:10 PM Resul ts for this CDT procedure are i n the results section. documented in this encounter Results XR Chest 2 Views (09/28/2004 2:10 PM CDT) Anatomical Region Laterality Modality Chest, Lung Other Specimen (Source) Anatomical Location Collection Method / Collectio n Time Received Time / Laterality Volume Narrative 09/28/2004 2:10 PM CDT PA AND LATERAL CHEST: Cardiovascular structures are normal. ??No definite infiltrate. [id number]/vlm Dictating DAVID JESUS RADIOLOGIST Procedure Note David Tenorio MD - 06/15/2016Fo rmatting of this note might be different from the original. PA AND LATERAL CHEST: Cardiovascular str uctures are normal. No definite infiltrate. [id number]/vlm Dictating DAVID JESUS RADIOLOGIST Rona Lawton PA-C RAD GD documented in this encounter Visit Diagnoses Not on filedocumented in this encounter Care Teams Director Script Relationship Specialty Start Date End Date Carlos Solorio MD PCP - General 07/17/10 08/06/12 [address] [place] Mcdonough [phone] documented as of this encounter
--- OUTSIDE RECORDS SUMMARY | 2022-01-20 08:18 | XMS_ITS | Encounter Summary ---
:1950 Author Organization [facility] Address [address] [address] Care Team Providers Name Role Phone Carlos Solorio MD Primary Care Provider Encounter Details Date Type Department Care Team Description 07/01/2008 Office Visit [facility], PT Therapy [address] [place] [address] [place] [phone] (Wo rk) Social History Tobacco Use Types Packs/Day Years Used Date Smoking Tobacco: Never Assessed Sex Assigned at Date Recorded Not on file documented as of this encounter Progress Notes Masoud Flores PT - 07/01/2008 12:01 AM CDT Progress Notes signed by Masoud Flores PT at 07/01/08 1214 Author: Masoud Flores PT Service: (none) Author Type: Physical Therapist Filed: 08/05/10 1089 Note Time: 07/01/08 0001 Status: Signed Transportation Planning Engineer: Masoud Flores PT (Physical Therapist) [facility] Progress Note Referring Physician: Rudy Fitzgerald MD Referring Diagnosis: Right Gastroc strain (844.8) Orders: Evaluate and treat. Date of Onset: 06/15/2008 Visit Number: SUBJECTIVE: Better, but still quite sore. OBJECTIVE: Reinstructed in NWB stretch--especially important to stretch before getting up/AM MFR x 5 to right posterior/inferior calf Added soleus stretch gentle 3 x 20 PROM for DF 3 x30 Mini squat 1 x 10--reinstructed in form ASSESSMENT: Increased tolerance to stretches. PLAN: COntinue 2x/week for ROM, progression of proprioception as pain allows. MAy try US on calf. Procedures: Therapeutic Exercise (CPT 97049) 30 minutes. Total Treatment Time: 30 Therapist: Jonathon Flores PT, [address] Note completed on: 07/01/2008 12:15 PM *SH~REHAB~TPNI ~ Rudy Polo MD - 07/01/2008 12:01 AM CDT Progress Notes signed by Rudy Polo MD at 07/20/08 0845 Author: Rudy Polo MD Service: (none) Author Type: Physician Filed: 08/05/10 1334 Note Time: 07/01/08 0001 Status: Signed Transportation Planning Engineer: Rudy Polo MD (Physician) Physical Therapy Plan of Care: Certification/FA 700. Initial Certification Period: , 07/01/2008 to 09/28/08 Initial Status: Referring Physician: Rudy Fitzgerald MD Diagnosis: Right Gastroc strain (844.8) Orders: Evaluate and treat. Date of Onset: 06/15/2008 ASSESSMENT: Therapist Impression: Clinical findings are consistent with referring diagnosis. Practice Pattern: Impaired joint mobility, motor function, muscle performance, and ROM associated with connective tissue dysfunction (4D). Functional Limitations: Standing. Gait. Stairs. Work activities. Limitations due to: Muscle weakness. Joint pain (379.47). Proprioception deficits. Expected Functional Outcomes: Patient will: Demonstrate/verbalize independence with home exercise program following each treatment session. Able to ambulate unlimited distances with minimal to no limp/symptoms in 4-6 weeks. Navigate stairs without assistive device independently with minimal to no symptoms using a reciprocal pattern in 2-4 weeks. Squat to pear picker items from floor with minimal to no symptoms in 2-4 weeks. 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 Barriers to Learning: No apparent barriers to learning. Rehab Prognosis: Good to achieve stated goals. PLAN: Manual therapy. Neuromuscular re-education. Therapeutic activities. Therapeutic exercise. PT Frequency and Duration: 2 time per week Patient will follow up at another clinic. Plan for next treatment session: Progress home exercise and clinic exercises, continue with manual therapy to improve tissue mobility and decrease pain in gastroc area Consent: Risks, benefits and alternatives to treatment have been explained. Patient and/or family in agreement with care plan. . The physician electronic signature certifies the medical necessity for this plan of care while under his/her care. Therapist Signature: Jonathon Flores PT, 6151 , 07/01/2008 *SH~REHAB~POC ~ Shorthand Note completed on: 07/01/2008 12:17 PM documented in this encounter Plan of Treatment Not on filedocumented as of this encounter Visit Diagnoses Not on filedocumented in this encounter Care Teams Siebel Crm Developer Relationship Specialty Start Date End Date Carlos Solorio MD PCP - General 07/17/10 08/06/12 [address] [place] Mcdon[place] [phone] documented as of this encounter
--- OUTSIDE RECORDS SUMMARY | 2022-01-20 08:18 | XMS_ITS | Encounter Summary ---
:1950 Author Organization [facility] Address [address], [place] [address] Care Team Providers Name Role Phone Carlos Solorio MD Primary Care Provider Encounter Details Date Type Department Care Team Description 05/06/2008 Office Visit [facility] [place] [address] [place] [address] Social History Tobacco Use Types Packs/Day Years Used Date Smoking Tobacco: Never Assessed Sex Assigned at Date Recorded Not on file documented as of this encounter Last Filed Vital Signs Vital Sign Reading Time Taken Comments Blood Pressure 150/74 05/06/2008 7:04 PM RESIDENTIAL REAL ESTATE SALES MANAGER Pulse 62 05/06/2008 7:04 PM RESIDENTIAL REAL ESTATE SALES MANAGER Temperature 36.5 ??C (97.7 ??F) 05/06/2008 7:04 PM RESIDENTIAL REAL ESTATE SALES MANAGER C: 36 .5 C Respiratory Rate 20 05/06/2008 7:04 PM RESIDENTIAL REAL ESTATE SALES MANAGER Oxygen Saturation 97% 05/06/2008 7:04 PM RESIDENTIAL REAL ESTATE SALES MANAGER Inhaled Oxygen Concentration - - Weight - - Height - - Body Mass Index - - documented in this encounter Progress Notes Saadia Pelaez MD - 05/06/2008 12:01 AM CST Progress Notes signed by Saadia Pelaez MD at 05/06/08 6918 Author: Saadia Pelaez MD Service: (none) Author Type: Physician Filed: 08/05/10 1206 Note Time: 05/06/08 0001 Status: Signed Clinical Data Associate: Saadia Pelaez MD (Physician) SUBJECTIVE: Mr. Dickson enters with complaint of cough, sore throat, and runny nose for 5 days. He coughs to the point of vomiting. Cough is productive typically of green sputum. He has not been running a fever. He's been using cold capsules. He is a nonsmoker. No history of asthma. Cough gets worse as the day goes on. Sleep has been disrupted. No GI distress. Adverse Drug Reactions: None. Medications: Reviewed. See Medication List in LastWord. OBJECTIVE: Vital Signs : Reviewed; See Flowsheet Charting in LastWord. Temperature: 97.7. Pulse: 62. Respiratory rate: 20. BP: 150/74. Oxygen saturation: 97% on room air. Mr. Dickson sounds congested. TMs are clear bilaterally. There is purulent rhinorrhea and purulent postnasal drip. Oropharynx moist without erythema. I do not appreciate any lymphadenopathy. Sinuses are tender to percussion. Chest shows scattered rhonchi. ASSESSMENT: Sinusitis. Cough. PLAN: Has always had good relief with use of Zithromax. Prescription for Z-Dimitrios #1 as directed. Robitussin-AC 8 ounces one or 2 teaspoons Q4 hours p.r.n. cough. Cautioned regarding drowsiness. Continue with symptomatic care, although cautious use of decongestants because of his blood pressure. Recheck as needed. Was discharged ambulatory and in stable condition. *SH~DNS~SOAP DENTIAL REAL ESTATE SALES MANAGER documented in this encounter Plan of Treatment Not on filedocumented as of this encounter Visit Diagnoses Not on filedocumented in this encounter Care Teams Candy Dipper Hand Relationship Specialty Start Date End Date Carlos Solorio MD PCP - General 07/17/10 08/06/12 [address] [place] Mcdonough [address] documented as of this encounter
--- OUTSIDE RECORDS SUMMARY | 2022-01-20 08:18 | XMS_ITS | Encounter Summary ---
:1950 Author Organization [facility] Address [address] [address] Care Team Providers Name Role Phone Carlos Solorio MD Primary Care Provider Encounter Details Date Type Department Care Team Description 07/08/2008 Office Visit [facility], PT Therapy [address] [place] [address] [place] [phone] (Wo rk) Social History Tobacco Use Types Packs/Day Years Used Date Smoking Tobacco: Never Assessed Sex Assigned at Date Recorded Not on file documented as of this encounter Progress Notes Masoud Flores PT - 07/08/2008 12:01 AM CDT Progress Notes signed by Masoud Flores PT at 07/08/08 1201 Author: Masoud Flores PT Service: (none) Author Type: Physical Therapist Filed: 08/05/10 8723 Note Time: 07/08/08 0001 Status: Signed Pelt Inspector: Masoud Flores PT (Physical Therapist) [facility] Progress Note Visit Number: Referring Physician: Rudy Fitzgerald MD Referring Diagnosis: Right Gastroc strain (844.8) Orders: Evaluate and treat. Date of Onset: 06/15/2008 SUBJECTIVE: Can walk without pain at times. In out of car is good. Pain with steps or stepping out of a bigger truck OBJECTIVE: US 1 .2 w/cm2 x 10' continuous to right calf. Myofascial release, deep friction tissue mobilization x 10' to right posterior/inferior calf soleus stretch gentle 3 x 20 PROM for DF 3 x30 Mini squat 1 x 10-- proprioception on right 1x 30-60 seconds as pain allows. Added Heel raise Bilaterally 1 x 10 daily ASSESSMENT: PLAN: COntinue 2x/week for ROM, progression of PREs Procedures: Therapeutic Exercise (CPT 80854) 15 minutes. Manual Therapy, 1 or more regions (CPT 80766) 15 minutes. Ultrasound (CPT 41543) 10 minutes. Total treatment time: 40 minutes. Therapist: Jonathon Flores PT, [address] Note completed on: 07/08/2008 12:01 PM *SH~REHAB~TPNB ~ documented in this encounter Plan of Treatment Not on filedocumented as of this encounter Visit Diagnoses Not on filedocumented in this encounter Care Teams Intelligent Systems Engineer Relationship Specialty Start Date End Date Carlos Solorio MD PCP - General 07/17/10 08/06/12 [address] [place] N[place] Mcdon[place] [address] documented as of this encounter
--- OUTSIDE RECORDS SUMMARY | 2022-01-20 08:18 | XMS_ITS | Encounter Summary ---
:1950 Author Organization [employer] Address [address], [place] [address] Care Team Providers Name Role Phone Carlos Solorio MD Primary Care Provider Encounter Details Date Type Department Care Team Description 01/31/2009 Office Visit [facility] [place] [address] [address] [place], [place] [phone] (Wo rk) Social History Tobacco Use Types Packs/Day Years Used Date Smoking Tobacco: Never Assessed Sex Assigned at Date Recorded Not on file documented as of this encounter Last Filed Vital Signs Vital Sign Reading Time Taken Comments Blood Pressure 124/77 01/31/2009 2:30 PM CDT Pulse 88 01/31/2009 2:30 PM CDT Temperature 37.3 ??C (99.1 ??F) 01/31/2009 2:30 PM ORAL C: 3 7.3 C CDT Respiratory Rate 18 01/31/2009 2:30 PM CDT Oxygen Saturation 94% 01/31/2009 2:30 PM CDT Inhaled Oxygen Concentration - - Weight - - Height - - Body Mass Index - - documented in this encounter Progress Notes Ivanna Bourne MD - 01/31/2009 12:01 AM CDT Progress Notes signed by Ivanna Bourne MD at 02/23/09 0909 Author: Ivanna Bourne MD Service: (none) Author Type: Physician Filed: 08/05/10 1906 Note Time: 01/31/09 0001 Status: Signed Barber Shop Manager: Ivanna Bourne MD (Physician) NAME: NICOLETTE RICE MR#: [id number] ACCT: [id number] VISIT: [id number] DICTATING CLINICIAN: IVANNA BOURNE MD CONFIRM #: [id number] LOC: 520 CLINIC PROGRESS NOTE DATE OF VISIT: 01/31/2009 SUBJECTIVE: CHIEF COMPLAINT: Body aches, fever. HS: Pleasant 58-year-old comes in today complaining of not feeling very well. He has been sick for 2 weeks off and on. He has had ear congestion. His sinuses are really plugged. Denies a cough or cold symptoms. Seems to be rundown and tired. Mild sore throat. He said the sore throat was much worse the first week but that has been getting significantly better. PAST HISTORY: None. PAST SURGICAL HISTORY: None. MEDICATIONS: None. ADR/ALLERGIES: NO KNOWN DRUG ALLERGIES. SOCIAL HISTORY: Nonsmoker. OBJECTIVE: VS: BP: 134/77. T: 99.2. P: 88. R: 18. O2 sat is 94% on room air. GENERAL: Alert and oriented in no apparent distress. Tympanic membranes reveal bilateral otitis media. Both are erythematous with fluid behind it. Tonsils are mildly enlarged. There is thick postnasal drip. Does have a lot of sinus congestion and sinus pressure. Oropharynx is pink and moist. No tonsil enlargement. LUNGS: Clear. HEART: Regular. ABDOMEN: Soft, nontender. SKIN: No rash or cyanosis. Strep screen is negative. ASSESSMENT: 1. Bilateral otitis media. 2. Sinusitis. PLAN: Started on Augmentin 875 one p.o. b.i.d. x10 days. Rest, fluids, ibuprofen and Tylenol. Follow up if symptoms persist or worsen. Patient is in agreement with the plan. ADAMARIS:[id number] C: 02/01/09 05:49 CONFIRM #: [id number] CT OPENER AND FILLER documented in this encounter Plan of Treatment Not on filedocumented as of this encounter Visit Diagnoses Not on filedocumented in this encounter Care Teams Bingo Clerk Relationship Specialty Start Date End Date Carlos Solorio MD PCP - General 07/17/10 08/06/12 [address] [place] N[place] Mcdonough [phone] documented as of this encounter
--- OUTSIDE RECORDS SUMMARY | 2022-01-20 08:18 | XMS_ITS | Encounter Summary ---
:1950 Author Organization [facility] Address [address] [place] [address] Care Team Providers Name Role Phone Carlos Solorio MD Primary Care Provider Encounter Details Date Type Department Care Team Description 06/28/2008 Office Visit [facility] Brianna Polo MD [address] [facility] [address] [place] [address] [place] [address] [phone] (Wo rk) Social History Tobacco Use Types Packs/Day Years Used Date Smoking Tobacco: Never Assessed Sex Assigned at Date Recorded Not on file documented as of this encounter Progress Notes Luis Polo MD - 06/28/2008 12:01 AM CDT Progress Notes signed by Luis Polo MD at 07/06/08 1539 Author: Luis Polo MD Service: (none) Author Type: Physician Filed: 08/05/10 1327 Note Time: 06/28/08 0001 Status: Signed Core Sticker: Luis Polo MD (Physician) NAME: NICOLETTE RICE VISIT: [id number] DICTATING CLINICIAN: LUIS SHERIFF MD JOB: [id number] LOC: [id number] CLINIC PROGRESS NOTE DATE OF VISIT: 06/28/2008 SUBJECTIVE: This is a 57-year-old male who is here for reevaluation of his gastroc strain. He is doing better. He is able to walk, but still limping. OBJECTIVE: GENERAL: In no acute distress. INSPECTION: Still some swelling. With palpation, he has tenderness maximally over the musculotendinous junction of the gastroc medially. Still some mild tenderness in his Achilles and his calcaneus also. He has good range of motion of his ankle. He is grossly neurovascularly intact. ASSESSMENT: Gastroc tear. PLAN: The patient's work restrictions were continued for another 3 weeks, seated work only. He was sent to physical therapy. He should continue to ice and avoid activities that cause pain. I will see him back in 3 weeks for reevaluation. HW:elin DOCUMENT: [id number] documented in this encounter Plan of Treatment Not on filedocumented as of this encounter Visit Diagnoses Not on filedocumented in this encounter Care Teams Supervisor Electronic Coils Relationship Specialty Start Date End Date Carlos Solorio MD PCP - General 07/17/10 08/06/[id number] [place] [address] documented as of this encounter
--- OUTSIDE RECORDS SUMMARY | 2022-01-20 08:18 | XMS_ITS | Encounter Summary ---
:1950 Author Organization [facility] [employer] Address [address], [place] [address] Care Team Providers Name Role Phone Binta Solorio MD Primary Care Provider Encounter Details Date Type Department Care Team Description 06/24/2002 PN Conversion Only [facility] Kota Bird, MedSurg DPM [address] [facility] [address] [place] [address] [place] [address] [phone] (Wo rk) Social History Tobacco Use Types Packs/Day Years Used Date Smoking Tobacco: Never Assessed Sex Assigned at Date Recorded Not on file documented as of this encounter Progress Notes Femi Bird DPM - 06/24/2002 12:01 AM CST Progress Notes signed by Femi Bird DPM at 06/26/02 1411 Author: Femi Bird DPM Service: (none) Author Type: Physician Filed: 08/03/10 1356 Note Time: 06/24/02 0001 Status: Signed Packaging Design Engineer: Femi Bird DPM (Physician) NAME: NICOLETTE RICE MR: [id number] ACCT: [id number] VISIT: [id number] DICTATING CLINICIAN: FEMI BIRD DPM JOB: [id number] CLINIC PROGRESS NOTE DATE OF VISIT: 06/24/2002 SUBJECTIVE: : 1950. The patient presents for follow up. He indicates that the taping did help, and the temporary insert helps, as well. He continues to have discomfort, as well. His pain has been going on since last October. OBJECTIVE: The patient is neurovascularly intact. He does have pain with palpation of the medial process of the plantar weightbearing surface of the left calcaneous. No pain over the distal fascial band or calcaneal nerve branch. In stance, loss of longitudinal arch is evident. No other abnormalities noted. ASSESSMENT: Plantar fasciitis with pronation syndrome, left foot. PLAN: Treatment options were discussed with the patient. I discussed the condition in great detail. He was casted for orthotics and will return when they arrive. TT: CT: ALP:[id number] C: 06/25/02 04:52 DOCUMENT: [id number] WORKER Gabriele Tena MD - 06/23/2002 12:01 AM CST Progress Notes signed by Gabriele Tena MD at 07/10/02 1448 Author: Gabriele Tena MD Service: (none) Author Type: Physician Filed: 08/03/10 1355 Note Time: 06/23/02 0001 Status: Signed Packaging Design Engineer: Gabriele Tena MD (Physician) NAME: NICOLETTE RICE MR: [id number] ACCT: [id number] VISIT: [id number] DICTATING CLINICIAN: GABRIELE TENA MD JOB: [id number] CLINIC PROGRESS NOTE DATE OF VISIT: 06/23/2002 SUBJECTIVE: : 1950. . CHIEF COMPLAINT: Fell on ice and here with left thigh pain. HISTORY OF PRESENT ILLNESS: A 51-year-old gentleman who slipped on ice this morning and landed on the outstretched leg with a hyperextended knee and hyperflexion of the hip. Presents now with hamstring pain on the left. No back pain. No buttock or hip pain. No pain below the knee. No numbness, tingling or weakness. No other injuries. No previous hip or thigh problem in the past. MEDICATIONS: None. ADR/ALLERGIES: NONE. OBJECTIVE: VS: BP: 160/82. T: 98.4. P: 82. R: 14. Exam does show tenderness in the mid lower portion of the hamstring tendon. He had no hip pain with rotation or palpation. No other back or buttock pain. Knee was mobile, nontender and totally stable. Quadriceps are nontender. X-rays level AP and lateral ? seen with no obvious fracture. ASSESSMENT: Left hamstring strain. PLAN: Ice, Naprosyn 500 b.i.d. for pain, alternating with Tylenol, gentle range of motion exercise. Expect healing over a month or two. If it gets worse or progressive come back or recheck with primary care. TT: CT: [id number] C: 06/24/02 13:19 DOCUMENT: [id number] WORKER Femi Bird DPM - 06/03/2002 12:01 AM CST Progress Notes signed by Femi Bird DPM at 06/08/02 1434 Author: Femi Bird DPM Service: (none) Author Type: Physician Filed: 08/03/10 1332 Note Time: 06/03/02 0001 Status: Signed Packaging Design Engineer: Femi Bird DPM (Physician) IMPRESSION: Plantar fasciitis with pronation syndrome, left foot. SUBJECTIVE: The patient presents in consultation at the request of Dr. Binta Solorio. This 51-year-old white male presents for evaluation of left foot pain. He states that this has been going on since last October. It is worse first thing in the morning upon stepping out of bed. He indicates he did have a similar problem three years ago, and this was resolved with stretching exercises. He has been doing some stretching exercises, and this has not seemed to help. He denies any injury or trauma. ADR/ALLERGIES: THE PATIENT DENIES ALLERGIES TO MEDICATIONS. MEDICATIONS: He is not taking medications. His past surgical history is negative. OBJECTIVE: White male who appears his stated age. Walks without a limp. DP and PT pulses are +2/4. Sensation is intact. Capillary filling time is less than two seconds. He does have no abnormalities noted with skin color, texture, or turgor. There is no ecchymosis or swelling identified. He does have pain with palpation of the medial process of the plantar weightbearing surface of the left calcaneous. No pain over the distal fascial band. There is no pain over the Achilles tendon or with [id number] compression of the heel. No abnormalities with muscle testing. No abnormalities with reflexes. In stance, loss of longitudinal arch is evident. ASSESSMENT: Plantar fasciitis with pronation syndrome, left foot. PLAN: Treatment options were discussed with the patient. I discussed the condition in great detail. A LowDye strapping was suggested, and this was applied to the left foot. He will keep this on and dry for three to five days and begin using a temporary insert. Discussed icing and stretching. He will check with his health plan regarding coverage for orthotics. TT: [address]: CC: BINTA SOLORIO MD ALP:[id number] C: 06/04/02 06:17 DOCUMENT: [id number] WORKER Binta Solorio MD - 05/18/2002 12:01 AM CST Progress Notes signed by at 05/31/02 9296 Author: Binta Solorio MD Service: (none) Author Type: Physician Filed: 08/03/10 1304 Note Time: 05/18/02 0001 Status: Signed Packaging Design Engineer: Binta Solorio MD (Physician) IMPRESSION: Fatigue. Obesity. Left foot plantar fasciitis. Benign SUBJECTIVE: Chief Complaint: Fatigue and other issues. HPI: This 51-year-old male comes in with a number of issues today. First he notes for the past six months or so he has been feeling quite a bit more fatigued. No chest pain or dyspnea but just a general feeling of being very tired. He gets about seven to eight hours of sleep her night. Generally feels pretty well rested in the morning but by afternoon feels very run down. The patient reports his states he is a very loud snorer. No definite apneic spells noted though he was uncertain about that. 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 He also has a history of left foot plantar fasciitis and this still bothers him. This is characterized by very sharp pain which occurs especially notable the first few steps after getting out of bed each morning. He was previously given some stretching exercises for this but has not had other treatment. No fever or chills. Normal appetite. Additionally today he would like to start working out at his job where they have an exercise room. He does require a note for this. Again no history of chest pain or dyspnea as noted above. Finally today he has two skin tags in the groin that he would like removed. He also as a mole on the mid thoracic back on the left side that he would like removed. It has been present for some time and is not changing but does tend to get irritated by his shirts and even when he is taking a shower this will get rubbed and will be painful, so he would like that removed as well. CURRENT MEDICATIONS: None. ADR/ALLERGIES: NO KNOWN DRUG ALLERGIES. Past surgical history negative. Previous smoker, quit in 1969. No alcohol use. FAMILY HISTORY: Father at age 71 from lung cancer. He had a history of coronary artery disease with stenting done at about age 67. Mother alive at age 74 and generally healthy. One sister age 50 and healthy. No known diabetes, hyperlipidemia, or hypertension in the family. The patient is . OBJECTIVE: VS: BP: 138/90. T: 97.0. P: 76. R: 12. Ht: 5 ft 9 in by patient report. Wt: 248 lb. BMI: 37. GENERAL: This 51-year-old male appears well. Very pleasant. Breathing comfortably and in no distress. Appears well-nourished. Oropharynx without erythema or lesions. NECK: Supple without adenopathy or thyroid nodules. No carotid bruits. LUNGS: Clear. No rales, rhonchi or wheeze; normal chest excursion. CARDIOVASCULAR: Regular rhythm, normal heart sounds. No murmur, gallops, or rub. EXTREMITIES: Appropriately warm and pink. No cyanosis or pedal edema. Distal pulses easily palpable. NEURO: Deep tendon reflexes 2/4 both knees. Ju[employer] strong and equal. Gait steady. Speech clear. SKIN: In the mid left thoracic back there is a flesh-colored papule consistent with a benign raises mole. In the groin on the right upper medial thigh there are two skin tags. The patient requested that these be removed. They were cleaned with alcohol and removed with a scissors. Minimal oozing controlled with direct pressure and a slight touch of aluminum chloride. Some antibiotic ointment and gauze applied to the sites. Again there were two skin tags removed today. Exam of the left foot shows there is a well-localized area of tenderness to palpation along the bottom of the heel on the left foot. Otherwise, appears normal. EKG done today shows sinus rhythm with nonspecific diffuse T-wave flattening. Overall considered to be mildly abnormal EKG, but nonspecific. ASSESSMENT: 1. Fatigue. 2. Obesity. 3. Left foot plantar fasciitis. 4. Benign mole mid thoracic back, left side. 5. Skin tags x2, groin, removed today. 6. Mildly abnormal (nonspecific) EKG. 7. Loud snoring by report. PLAN: We will arrange for a sleep study given the fatigue and loud snoring to see whether the patient may have obstructive sleep apnea and may benefit from CPAP. Will also check a TSH and hemoglobin. Check a cholesterol fractionation panel as well as a baseline AST level and fasting blood sugar because of the obesity. With the abnormal EKG and especially with plans for starting an exercise program, will obtain a stress echo prior to doing that. I asked the patient to wait on his exercise program until we get that done. The patient will check with his insurance company regarding the benign mole on the back to see whether they will pay for this to be removed. He will reschedule if so. I did offer him reassurance that this is benign. Refer to podiatry for the left foot plantar fasciitis. We will notify the patient of lab results. TT: CT: MADELEINEM:[id number] C: 05/18/02 13:27 DOCUMENT: [id number] Stacey Bello MD - 03/01/2002 12:01 AM CST Progress Notes signed by at 05/13/02 0802 Author: Stacey Cm MD Service: (none) Author Type: Physician Filed: 08/03/10 1120 Note Time: 03/01/02 0001 Status: Signed Packaging Design Engineer: Stacey Cm MD (Physician) IMPRESSION: No dictation required. Tonsillitis, otitis media. SUBJECTIVE: No dictation. OBJECTIVE: N/A ASSESSMENT: Tonsillitis, otitis media. PLAN: Augmentin. TT: CT: [id number] C: 03/02/02 09:08 DOCUMENT: [id number] WORKER Jonathan Juarez MD - 02/03/2002 12:01 AM CDT Progress Notes signed by Jonathan Juarez MD at 02/04/02 0821 Author: Jonathan Juarez MD Service: (none) Author Type: Physician Filed: 08/03/10 1042 Note Time: 02/03/02 0001 Status: Signed Packaging Design Engineer: Jonathan Juarez MD (Physician) IMPRESSION: Cervical pain syndrome with multiple vertebral levels and according [id number] subpart 3c2. SUBJECTIVE: COMPANY NAME: [facility]. DATE OF INJURY: 12/17/01. IS CONDITION WORK RELATED? Yes. OBJECTIVE: Degenerative disk disease, multilevel with mild mild subluxation and foraminal encroachment. No radiculopathy. Mr. Rice is seen in followup. He has been working with physical therapy for six weeks and has noticed significant improvement. His current symptoms include limited range of motion on extension and lateral rotation to the right. He has no pain with cough or sneeze, no radicular arm symptoms. He has worked with physical therapy and has gotten some relief from cervical traction. He will continue with neck range of motion and strengthening exercises as well as home cervical traction. Deep tendon reflexes are 2+ and symmetric with light touch intact. ASSESSMENT: Multilevel degenerative disk disease with mechanical symptoms. Mild foraminal encroachment and subluxation, grade I. PLAN: At this time he is to be released to nursing home restricted activities with no overhead work and all items under 30 pounds and below shoulder height. He is taking Celebrex 300 mg as needed on a daily basis, and will continue with home traction. FOLLOW-UP DATE: UNDETERMINED MAXIMUM MEDICAL IMPROVEMENT: MMI has been reached. PERMANENT PARTIAL DISABILITY RATING: Permanency for multilevel degenerative cervical symptoms and objective decreased flexibility according to the treatment schedule. TT: CT: CLOCK SMITH:[id number] C: DOCUMENT: [id number] Jonathan Juarez MD - 01/06/2002 12:01 AM CDT Progress Notes signed by Jonathan Juarez MD at 01/06/02 1630 Author: Jonathan Juarez MD Service: (none) Author Type: Physician Filed: 08/03/10 1003 Note Time: 01/06/02 0001 Status: Signed Packaging Design Engineer: Jonathan Juarez MD (Physician) IMPRESSION: Cervical spasm. Multilevel degenerative disk disease with multilevel foraminal stenosis. SUBJECTIVE: COMPANY NAME: [facility]. DATE OF INJURY: 12/17/01. IS CONDITION WORK RELATED? Mr. Rice is seen today in follow up. Because of right arm symptoms he underwent imaging. He does have multilevel foraminal stenosis, but no acute disk herniation. He has been working with physical therapy for several treatments and continues to have pain in the neck and neck stiffness, but has had resolution of dysesthesias into the right hand. OBJECTIVE: On exam range of motion of the neck is limited to about 80% of normal. Lateral rotation is still painful. ASSESSMENT: Acute cervical spasm superimposed on preexisting multilevel foraminal stenosis. PLAN: At this time he will continue PT and Celebrex. Limiting lifting or carrying to 20 pounds and no work over shoulder height. Recheck one month. FOLLOW-UP DATE: One month. MAXIMUM MEDICAL IMPROVEMENT: UNDETERMINED PERMANENT PARTIAL DISABILITY RATING: UNDETERMINED TT: CT: CLOCK SMITH:[id number] C: DOCUMENT: [id number] Conversion, [facility] - 12/24/2001 12:01 AM CDT Progress Notes signed by Gabriele Mcnair MD at 12/25/01 0519 Author: Imr Conversion Service: (none) Author Type: (none) Filed: 08/03/10 0945 Note Time: 12/24/01 0001 Status: Signed Packaging Design Engineer: Imr Conversion IMPRESSION: Right trapezius spasm versus early C6 radiculopathy with SUBJECTIVE: COMPANY NAME: [facility]. DATE OF INJURY: 12/17/01. IS CONDITION WORK RELATED? Yes, by history. Nicolette Rice is a 51-year-old male who presents with a one-week history of neck pain, right sided, which began as he was stretching his arm up to reach a valve and then turn it. He was seen in urgent care and placed on ice, ibuprofen, and is here now in follow up. He says the intensity of the pain in the neck has improved, but he does notice numbness and tingling running down the lateral arm and into the forearm on several occasions in the last week. OBJECTIVE: VS: BP: 142/100. P: 68 and regular. He appears to be in no acute distress. Neck range of motion is full in flexion, but limited by 20 degrees in extension. Lateral rotation in painful in the right paracervical area. He has palpation tenderness in the right trapezius without objective spasm. Good resistive motor testing around the shoulder and elbow, but does have some decreased strength in hand radiology aide, thumb and index finger pinch, and fourth and fifth fingers. Deep tendon reflexes are trace and symmetric. ASSESSMENT: Right trapezius spasm versus early C6 radiculopathy. PLAN: At this time he is placed on Celebrex as he has had significant side effects from Flexeril and Codeine and is referred for a cervical MRI. He will also begin physical therapy and meet with me several days after the imaging study. FOLLOW-UP DATE: UNDETERMINED MAXIMUM MEDICAL IMPROVEMENT: UNDETERMINED PERMANENT PARTIAL DISABILITY RATING: UNDETERMINED TT: CT: CLOCK SMITH:[id number] C: DOCUMENT: [id number] SCHEDULED RESOURCE: JONATHAN JUARZE MD Peter Aquino MD - 12/17/2001 12:01 AM CDT Progress Notes signed by Peter Porter MD at 12/18/01 1404 Author: Peter Porter MD Service: (none) Author Type: Physician Filed: 08/03/10 0934 Note Time: 12/17/012102 Status: Signed Packaging Design Engineer: Peter Porter MD (Physician) IMPRESSION: Neck pain. Probable underlying muscle spasm. SUBJECTIVE: The patient comes in today for soreness in the right side of his neck, gradually becoming worse at this point. This has been off and on over the last 10 days. It hurts to bend and twist. He has noticed no specific injury. Occasionally has had pain in the shoulder and the arm but nothing major at this point. He is right-handed. 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 He does no heavy lifting or twisting. PAST MEDICAL HISTORY: Otherwise healthy. MEDICATIONS: None. ADR/ALLERGIES: NONE. No weakness has been noted. OBJECTIVE: VS/GEN: T: 98. BP: 93/55. P: 60, regular. R: 16. The patient is a well-muscled, pleasant 51-year-old. The C-spine itself is painfree. There is moderate tenderness noted to palpation over the posterior sternocleidomastoid on the right as well as the right trapezius muscle. Shoulder itself is painfree with full range of motion. Arm strength testing, right versus left, +4/4 and symmetrical. Reflexes +2/4 and symmetrical. Biceps, triceps, brachioradialis pulses distally intact, and the hand sensation grossly intact. He can forward flex to within two fingerbreadths of the chin. Extension 10 degrees. Lateral flexion is limited to 10 degrees on the right, 45 degrees on the left. Lateral rotation 60 degrees, 20 degrees right. ASSESSMENT: Neck pain. Probable underlying muscle spasm. PLAN: At this point, ice two or three times daily. Myoflex rub could be used. Flexeril 10 mg, #15, one two to three times daily p.r.n. moderate pain. He was given Percocet, #50, one q.4h. p.r.n. severe pain. Follow up if persistent at seven to 10 days. He has an appointment the first part of next week in primary care. He will call if other questions or worsening symptoms. Med effects, side effects discussed. TT: CT: [id number]:[id number] C: DOCUMENT: [id number] Morgan Arora APRN, CNP - 11/20/2001 12:01 AM CDT Progress Notes signed by Morgan Arora APRN, CNP at 11/26/01 1331 Author: HOLLY Wilson Service: (none) Author Type: Nurse Practitioner Filed: 08/03/10 0858 Note Time: 11/20/01 0001 Status: Signed Packaging Design Engineer: HOLLY Wilson (Nurse Practitioner) IMPRESSION: Plantar fasciitis of the left foot. SUBJECTIVE: Nicolette is a 51-year-old white male who presents today complaining of left heel pain times approximately two weeks. He has a history of plantar fasciitis in the right foot. States his right foot has been feeling very well and this was approximately three to four years ago. Denies any trauma or injuries to the left. He does wear work boots on a daily basis. Does stand frequently for his job. Pain is increasing over the last two weeks. Pain is most significant first in the morning upon first arising out of bed, then will gradually improve as the day wears on. He has never had an x-ray or further evaluation of this in the past. PAST MEDICAL HISTORY: Nonsignificant for chronic medical illnesses. MEDICATIONS: None. ADR/ALLERGIES: NONE. HABITS: Does not smoke. OBJECTIVE: VS/GEN: BP: 128/88. P: 72. Wt: 247 lb. He is alert, oriented, pleasant, appears in no acute distress, well developed. Physical examination of the left foot: There is no tenderness over the Achilles. Mathur test is negative for Achilles tendon involvement. There is tenderness to palpation on the plantar surface of the calcaneus and heel area as well as over the plantar fascia in the midfoot. There is no tenderness in dorsum of the foot. Ankle maneuvers are performed and are normal. Distal CMS is intact. Patient is ambulatory with a steady gait. DIAGNOSTIC: X-ray was obtained of the left calcaneus and does not show any heel spurring or signs of fracture. ASSESSMENT: Plantar fasciitis of the left foot. PLAN: 1. He is given a stretching brochure and stretching exercises are demonstrated. He is instructed on ice massage two to three times daily for 20 minutes. 2. Naproxen 500 mg p.o. b.i.d. with food on a regular basis over the next two to three weeks. 3. He is to followup with physical therapy if no significant improvement or possibly done in podiatry if no improvement after that. He agreed. TT: CT: [id number]:[id number] C: DOCUMENT: [id number] Rudy Polo MD - 06/03/2000 12:01 AM CST Progress Notes signed by at 06/06/02 0001 Author: Rudy Polo MD Service: (none) Author Type: Physician Filed: 08/02/10 2135 Note Time: 06/03/002102 Status: Signed Packaging Design Engineer: Rudy Polo MD (Physician) IMPRESSION: Probably urinary tract infection. SUBJECTIVE: This is a 49-year-old male with a two day history of noticing some tingling with urination, frequency, urgency, no real burning. The patient has also noted some blood in his urine. The patient says when he pees, he tends to pee in short spurts. Denies any back pain, fever, nausea, vomiting or diarrhea. The patient does have a history of urinary tract infection two to three years ago. ALLERGIES: NONE. MEDICATIONS: None. PAST MEDICAL HISTORY: None. SOCIAL HISTORY: The patient works for [employer]. OBJECTIVE: BP: 130/84 T: 96.8 P: 84 R: 20 GENERAL: No acute distress. No CVA tenderness. ABDOMEN: No abdominal tenderness. EXAM: exam is negative. UA shows greater than 100 white cells per high-powered field, small leukocyte esterase. Trace ketone greater than 1.030 specific gravity. Trace blood and 10 to 25 red cells per high- powered field. ASSESSMENT: Probably urinary tract infection. PLAN: The patient is treated with Bactrim DS 1 p.o. b.i.d. times 10 days. The patient is to follow up with primary MD for urine recheck to make sure the urine is clear. Return with any acute changes. LW:[id number] C: DOCUMENT: [id number] N Abernathy [facility] - 05/03/2000 12:01 AM CST Progress Notes signed by at 06/06/02 0001 Author: [facility] Service: (none) Author Type: (none) Filed: 08/02/102102 Note Time: 05/03/00 0001 Status: Signed Packaging Design Engineer: Angelica Abernathy IMPRESSION: Viral syndrome. Upper respiratory infection. SUBJECTIVE: See URI shingle. OBJECTIVE: N/A ASSESSMENT: Viral syndrome. URI. PLAN: Push fluids. Return to the clinic if fever or chills persist. Monitor closely. Return as needed. TL:[id number] C: DOCUMENT: [id number] SCHEDULED RESOURCE: ROSIE HERMAN / RAS Jorge Hardy - 04/05/2000 12:01 AM CST Progress Notes signed by Jorge Almaraz DO at 04/09/00 7791 Author: Jorge Almaraz DO Service: (none) Author Type: (none) Filed: 08/02/102035 Note Time: 04/05/00 0001 Status: Signed Packaging Design Engineer: Jorge Almaraz DO (Physician) IMPRESSION: Bronchitis. SUBJECTIVE: This will be a no dictation. See HAYDEN licona. OBJECTIVE: N/A ASSESSMENT: Bronchitis. PLAN: Amoxicillin 500 mg t.i.d. for 10 days. EGR:[id number] C: DOCUMENT: [id number] [facility], [facility] - 11/07/1999 12:01 AM CDT Progress Notes signed by at 11/19/004 Author: Angelica Abernathy Service: (none) Author Type: (none) Filed: 08/02/10 181 Note Time: 11/07/99 0001 Status: Signed Packaging Design Engineer: [facility] IMPRESSION: Pharyngitis. Otitis media. SUBJECTIVE: A 49-year-old white male with a sore throat that started yesterday. No known strep exposure. He says many times he gets a sore throat when he has an ear infection. His rapid strep was negative which was done by the nursing staff. ALLERGIES: NONE. MEDICATIONS: None. OBJECTIVE: T: 97.6 tympanic He does indeed have a left otitis media and an early right otitis media. Oropharynx is moist with a trace of erythema. 1+ lymphadenopathy. Chest is clear to auscultation. ASSESSMENT: 1. Pharyngitis. 2. Otitis media. PLAN: Amoxicillin 500 mg 1 t.i.d. #30. SMO:[id number] C: DOCUMENT: [id number] SCHEDULED RESOURCE: SAADIA PINEDO MD Adarsh Agudelo MD - 09/25/1999 12:01 AM CDT Progress Notes signed by at 09/26/99 0848 Author: Adarsh Rueda MD Service: (none) Author Type: (none) Filed: 08/02/10 9346 Note Time: 09/25/99 0001 Status: Signed Packaging Design Engineer: Angelica Abernathy IMPRESSION: Anal fissures. SUBJECTIVE: For about three weeks, he has had occasional blood on the toilet paper after wiping after a bowel movement. No constipation. No pain with bowel movements. No bloody diarrhea. No abdominal cramping. OBJECTIVE: Wt: 246 pounds BP: 132/80 RECTAL: Superficial anal fissure along the posterior midline; somewhat larger anal fissure along the anterior midline. Prostate 1+ enlarged. Otherwise, normal rectal exam. ASSESSMENT: Anal fissures. PLAN: Sitz baths. Metamucil. Reassured. SYT:[id number] C: DOCUMENT: [id number] Hyacinth Alex PA-C - 08/11/1999 12:01 AM CDT Progress Notes signed by at 12/26/99 1248 Author: Hyacinth Waller PA-C Service: (none) Author Type: Resource Filed: 08/02/10 1647 Note Time: 08/11/99 0001 Status: Signed Packaging Design Engineer: Hyacinth Waller PA-C (Resource) IMPRESSION: Bilateral otitis media and pharyngitis. SUBJECTIVE: No dictation. See URI sheet for Nicolette Rice. OBJECTIVE: ASSESSMENT: Bilateral otitis media and pharyngitis. PLAN: The patient was put on Zithromax Dimitrios to take as directed. Symptomatic care is discussed. LAG:[id number] C: DOCUMENT: [id number] Peter Aquino MD - 06/14/1999 12:01 AM CST Progress Notes signed by Peter Porter MD at 06/15/99 1349 Author: Peter Porter MD Service: (none) Author Type: Physician Filed: 08/02/10 1552 Note Time: 06/14/99 0001 Status: Signed Packaging Design Engineer: Peter Porter MD (Physician) IMPRESSION: Left otitis media, recurrent. Mild eustachian tube dysfunction. SUBJECTIVE: Patient is here today for recurrent left ear pain. This has been gradually worse off and on over the last two weeks. He was placed on amoxicillin two weeks ago for this. He is still noticing some mild plugging in the right ear as well. He denies other illness at this point other than for occasional rhinorrhea. He does have a past history of otitis media intermittently in the past. CURRENT MEDICATIONS: Sudafed. No known allergies noted. No underlying health problems. He does not smoke. OBJECTIVE: T: 98.2. P: 68 regular. BP: 118/82. Throat clear. Glands are without adenopathy. Right TM reveals minimal fluid with decreased motion. Left TM and canal +2 red with decreased motion and erythema. Nares clear. Sinuses nontender. LUNGS: Clear. ASSESSMENT: 1. Left otitis media, recurrent. 2. Mild eustachian tube dysfunction. PLAN: Force plenty of liquids. Septra DS #20 b.i.d. times 10 days, Entex LA #30 one b.i.d. for congestion times two weeks. Eustachian tube exercise discussed. Recheck otherwise on a p.r.n. basis. TPH:[id number] C: DOCUMENT: [id number] WORKER Jan Apodaca MD - 05/28/1999 12:01 AM CST Progress Notes signed by Jan Apodaca MD at 10/20/99 1910 Author: Jan Apodaca MD Service: (none) Author Type: Physician Filed: 08/02/10 1536 Note Time: 05/28/99 0001 Status: Signed Packaging Design Engineer: Jan Apodaca MD (Physician) IMPRESSION: Right otitis with sinusitis. SUBJECTIVE: Patient is a 48-year-old male with a history of an ear infection about once a year who comes in today complaining of three days of increasing sore throat and ear pain, yellow nasal discharge. No real sinus pressure to palpation or headache. A little bit of a cough of the same postnasal drip. No shortness of breath, wheezing, smoking. Eating and sleeping okay. No nausea, vomiting, diarrhea or dysuria. ALLERGIES: NONE. MEDICATIONS: None. OBJECTIVE: T: 98.0. BP: 132/82. P: 72. R: 16. Comfortable appearing middle-aged male. Eyes are normal. Both tympanic membranes are dull, the right is also red. Both have loss of landmarks and reflexes. Nose shows erythema and edema. No sinus pressure to palpation. Oropharynx is erythematous. Neck is supple without lymphadenopathy. Lungs are clear. Cardiovascular exam normal S1 and S2, regular rate and rhythm, no murmurs, rubs, or gallops. ASSESSMENT: Right otitis with sinusitis. PLAN: Amoxicillin 500 mg t.i.d. for ten days. Fluids, Tylenol and ibuprofen. Follow up as needed. JEV:[id number] C: DOCUMENT: [id number] Adarsh Rueda MD - 04/13/1999 12:01 AM CST Progress Notes signed by at 04/17/99 0757 Author: Adarsh Rueda MD Service: (none) Author Type: (none) Filed: 08/02/10 1453 Note Time: 04/13/99 0001 Status: Signed Packaging Design Engineer: Angelica Conversion IMPRESSION: Plantar fasciitis. Ankle sprain after the onset of plantar fasciitis. SUBJECTIVE: For six weeks, he has had pain in the right heel. It is worse when he walks and stands on it. Also, about two to three weeks ago, he twisted the right ankle, and since then, he has also had some pain in the medial right ankle. OBJECTIVE: WT: 249 pounds. BP: 134/80. Right heel - tenderness in the inferior/medial aspect, no redness. Right ankle - no swelling or redness. Normal range of motion but yet mild pain during plantar flexion. Tender in the medial aspect (between the medial malleolus and the heel). Rest of the right ankle is not tender. He can bear his weight on the right ankle without difficulty; and walks well. ASSESSMENT: 1. Plantar fasciitis. 2. Ankle sprain after the onset of plantar fasciitis. PLAN: Ice to both areas. Ibuprofen 600 mg three times daily until better. If there is no improvement in the heel pain after 2-3 weeks, I have instructed him to make podiatry appointment. SYT:[id number] C: DOCUMENT: [id number] WORKER Homero Delacruz MD - 09/26/1998 12:01 AM CDT Progress Notes signed by Homero Delacruz MD at 09/29/98 2155 Author: Homero Delacruz MD Service: (none) Author Type: Physician Filed: 08/02/10 1133 Note Time: 09/26/98 0001 Status: Signed Packaging Design Engineer: Homero Delacruz MD (Physician) IMPRESSION: Otitis media and conjunctivitis. SUBJECTIVE: N/A OBJECTIVE: N/A ASSESSMENT: Otitis media and conjunctivitis. PLAN: Antibiotic solution and Septra. OS:[id number] C: DOCUMENT: [id number] ONDT Isis Polanco MD - 07/20/1997 12:01 AM CDT Progress Notes signed by Isis Polanco MD at 07/27/97 1708 Author: Isis Polanco MD Service: (none) Author Type: Physician Filed: 08/02/10 0413 Note Time: 07/20/97 0001 Status: Signed Packaging Design Engineer: Isis Polanco MD (Physician) IMPRESSION: Single enlarged submandibular lymph gland. SUBJECTIVE: Chief Complaint: A 46-year-old patient who has had a sore throat for the past 5 weeks. Finds it difficult to swallow. Has had a cough off and on. The cough has been nonproductive. Has not had a cold and has not had any elevation of temperature. A nonsmoker. Adverse Drug Reactions: None. Medications: None. The patient has no previous medical problems. OBJECTIVE: T: 97.1. P: 68. R: 12. BP: 130/92. General Appearance: A pleasant-appearing gentleman. Does not seem to be in any acute distress. Ear exam was bilaterally normal. Throat Exam: Posterior pharyngeal wall appears to be mildly erythematous; otherwise normal exam. Tonsils were not enlarged. On palpation of the neck area the patient does have a slightly enlarged submandibular lymph node on the left side. The posterior auricular glands were not palpable. There was no inguinal adenopathy. Abdominal exam was unremarkable. Monospot test was done, and this was negative. A CBC with a differential was done. The patient's white count was 7600 with a normal differential. ASSESSMENT: Single enlarged submandibular lymph gland. PLAN: The patient will follow up with Dr. Rueda one week from today for a recheck. isabella Adarsh Rueda MD - 05/20/1996 12:01 AM CST Progress Notes signed by at 05/25/96 2934 Author: Adarsh Rueda MD Service: (none) Author Type: (none) Filed: 08/01/10 9945 Note Time: 05/20/96 0001 Status: Signed Packaging Design Engineer: Angelica Conversion IMPRESSION: Upper back strain. SUBJECTIVE: Follow-up of upper back strain. The pain is about 75% better. It really does not bother him much. However, yesterday he did some work at home, which involved some lifting. Actually does not think he had to lift over 15 pounds at home. Had a little bit more pain at the end of the day, but it seems to be better today. Overall says the pain is much better than it was at the last visit. OBJECTIVE: BP: 120/80. Back: Not tender (no upper back tenderness, in particular). Normal range of motion. ASSESSMENT: Improving. PLAN: Since he had some pain yesterday at home after lifting, still keep him on work restrictions; see separate sheet about this. May resume full duties at work starting May 28, 1996. Return prn. Estimated date of maximal medical improvement: June 04, 1996. Permanent partial disability: 0 percent. isabella Adarsh Agudelo MD - 05/12/1996 12:01 AM CST Progress Notes signed by at 05/15/96 0338 Author: Adarsh Rueda MD Service: (none) Author Type: (none) Filed: 08/01/10 2218 Note Time: 05/12/96 0001 Status: Signed Packaging Design Engineer: Angelica Conversion IMPRESSION: Upper back strain. 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 He was actually pushing and lifting the cabinet at the same time, trying to get it from the floor onto the cart. As he was doing this, he noted the onset of pain in the right upper back. He has continued to have mild pain there. He is not aware of anything that makes it worse. Has been taking acetaminophen with some relief. OBJECTIVE: BP: 124/80. Lungs: Clear; breath sounds normal and symmetric. Back: Not tender; normal range of motion. In particular, in the right upper back, which is where he notices the pain, there is no tenderness (this is in the area of the right scapula). ASSESSMENT: Upper back strain. PLAN: See separate sheet about work restrictions. Ice. Continue acetaminophen or other tser-hfr-kwnkxhx pain medicines. Return in 8 days. isabella Adarsh Agudelo MD - 03/14/1995 12:01 AM CST Progress Notes signed by at 03/15/95 1244 Author: Adarsh Rueda MD Service: (none) Author Type: (none) Filed: 08/01/10 1813 Note Time: 03/14/95 0001 Status: Signed Packaging Design Engineer: Angelica Conversion IMPRESSION: Muscle strain. SUBJECTIVE: He is wondering about an inguinal hernia. For a few months he has had pain in the right inguinal area. Does not have this every day. When he gets it, it only lasts a few seconds. Tends to get it when he is bending over or moving in certain directions. OBJECTIVE: Wt: 234 lb. BP: 120/80. Scrotal contents normal. No inguinal hernias. Mild tenderness in the right inguinal area as it approaches the right hip flexor area. ASSESSMENT: Muscle strain. PLAN: Reassured. Ice. [id number]-[id number] ibuprofen, etc. isabella WORKER documented in this encounter Plan of Treatment Not on filedocumented as of this encounter Procedures Procedure Name Priority Date/Time Associated Comments Diagnosis XR FEMUR LT 2 VIEWS Routine 06/23/2002 10:40 Resu lts for this AM BOAT WORKER procedure are i n the results section. GLUCOSE, WHOLE BLOOD Routine 05/19/2002 8:25 AM R esults for this POCT BOAT WORKER procedure are i n the results section. THYROID STIMULATING Routine 05/19/2002 8:25 AM Re sults for this HORMONE BOAT WORKER procedure are i n the results section. LIPID PANEL AND Routine 05/19/2002 8:25 AM Result s for this DIRECT LDL(IF NEEDED) BOAT WORKER proced ure are in the results section. HEMOGLOBIN, BLOOD Routine 05/19/2002 8:25 AM Resu lts for this BOAT WORKER procedure are i n the results section. AST Routine 05/19/2002 8:25 AM Results f or this BOAT WORKER procedure are i n the results section. MR CERVICAL SPINE WO Routine 12/29/2001 3:00 PM R esults for this IV CONT CDT procedure are i n the results section. XR OS CALCIS Routine 11/20/2001 11:50 Results for this AM CDT procedure are i n the results section. URINE CULTURE Routine 06/03/2000 8:28 PM Results for this BOAT WORKER procedure are i n the results section. URINALYSIS COMPLETE Routine 06/03/2000 7:11 PM Re sults for this HOLD CULTURE BOAT WORKER procedure are i n the results section. STREP GROUP A ANTIGEN Routine 11/07/1999 10:49 Re sults for this TEST AM CDT procedure are i n the results section. BETA STREP FOLLOWUP Routine 11/07/1999 10:49 Resu lts for this AM CDT procedure are i n the results section. STREP GROUP A ANTIGEN Routine 09/23/1998 7:23 PM Results for this TEST CDT procedure are i n the results section. BETA STREP FOLLOWUP Routine 09/23/1998 7:23 PM Re sults for this CDT procedure are i n the results section. DIFFERENTIAL MANUAL Routine 07/20/1997 10:44 Resu lts for this AM CDT procedure are i n the results section. RC-LAB MONOSPOT Routine 07/20/1997 10:44 Results for this AM CDT procedure are i n the results section. COMPLETE BLOOD Routine 07/20/1997 10:44 Results f or this COUNT-NO DIFF AM CDT procedure are in the results section. MM MAMMOGRAM Routine 05/12/1993 11:46 Results for this SCREENING W CAD AM BOAT WORKER procedure ar e in the results section. ANC RESULT CONVERSION Routine 03/24/1993 9:30 AM Results for this DEFAULT ORDER BOAT WORKER procedure are in the results section. ANC RESULT CONVERSION Routine 03/24/1993 9:30 AM Results for this DEFAULT ORDER BOAT WORKER procedure are in the results section. documented in this encounter Results XR Femur Lt 2 Views (06/23/2002 10:40 AM BOAT WORKER) Anatomical Region Laterality Modality Lower Extremity, Leg, Thigh Other Specimen (Source) Anatomical Location Collection Method / Collectio n Time Received Time / Laterality Volume Narrative 06/23/2002 10:40 AM BOAT WORKER Negative for other osseous abnormality. Lak [id number] Dictating JUNIOR PLASCENCIA RADIOLOGIST Procedure Note Junior Luu - 06/21/2016 Negative for other osseous abnormality. Lak [id number] Dictating JUNIOR PLASCENCIA RADIOLOGIST Gabriele Tena MD RAD GD AST (05/19/2002 8:25 AM BOAT WORKER) Patholo gist Method Time Signature Aspartate 20 0 - 45 HP CONVERSION Aminotransferase U/L Specimen (Source) Anatomical Collection Method Collection Time Re ceived Time Location / / Volume Laterality 05/19/2002 8:25 AM BOAT WORKER Binta Solorio MD LAB_1 Performing Organization Address City/State/ZIP Code Phon e Number HP CONVERSION Thyroid Stimulating Hormone (05/19/2002 8:25 AM BOAT WORKER) P athologist Signature Thyroid 5.02 0.20 - HP CONVERSION Stimulating 5.50 Hormone uIU/mL Specimen (Source) Anatomical Collection Method Collection Time Re ceived Time Location / / Volume Laterality 05/19/2002 8:25 AM BOAT WORKER Binta Solorio MD LAB_1 Performing Organization Address City/State/ZIP Code Phon e Number HP CONVERSION (ABNORMAL) Lipid Panel and Direct LDL(If Needed) (05/19/2002 8:25 AM BOAT WORKER) Patholo gist Method Time Signature Length Of Fast 14.5 Hours HP CONVERSION Cholesterol/HDL 4.8 No normal HP CONVERSION Ratio Screen range Cholesterol 234 (H) 125 - 199 HP CONVERSION mg/dL HDL Cholesterol 49 40 - 60 HP CONVERSION mg/dL Triglycerides 291 (H) 0 - 199 HP CONVERSION mg/dL LDL Calculated 127 66 - 129 HP CONVERSION mg/dL Comment: Specimen (Source) Anatomical Collection Method Collection Time Re ceived Time Location / / Volume Laterality 05/19/2002 8:25 AM BOAT WORKER Binta Solorio MD LAB_1 Performing Organization Address City/State/ZIP Code Phon e Number HP CONVERSION Hemoglobin, Blood (05/19/2002 8:25 AM BOAT WORKER) athologist Signature Hemoglobin 15.9 13.4 - 17.5 HP CONVERSION gm/dL Specimen (Source) Anatomical Collection Method Collection Time Re ceived Time Location / / Volume Laterality 05/19/2002 8:25 AM BOAT WORKER Binta Solorio MD LAB_1 Performing Organization Address City/State/ZIP Code Phon e Number HP CONVERSION [facility] (05/19/2002 8:25 AM BOAT WORKER) athologist Signature Length Of Fast 14.5 Hours HP CONVERSION Bedside Blood 98 mg/dL HP CONVERSION Glucose Test Specimen (Source) Anatomical Collection Method Collection Time Re ceived Time Location / / Volume Laterality 05/19/2002 8:25 AM BOAT WORKER Binta Solorio MD LAB_1 Performing Organization Address City/State/ZIP [facility] [place] [facility] Phon e Number HP CONVERSION MR Cervical Spine WO IV Cont (12/29/2001 3:00 PM CDT) Anatomical Region Laterality Modality Spine, C-Spine, Neck, Vascular Other Specimen (Source) Anatomical Location Collection Method / Collectio n Time Received Time / Laterality Volume Narrative 12/29/2001 3:00 PM CDT CLINICAL DATA: ?CERV MRI/NECK PAIN W/C D.O.I. 12/17_ICD#723.1 PRE SCREEN ?EXAM CX. PT CLAUSTRO; WILL TALK TO DR AVINA SCAN AT [facility] W/SED TECH-ID : ? [facility]J TRANS-ID: READ PROVIDER: ?0 ??- SIGNOFF PROVIDER: 0 ??- Procedure Note Conversion, Imr - 06/21/2016Formatting o f this note might be different from the original. CLINICAL DATA: CERV MRI/NECK PAIN W/C D.O.I. 12/17/2001 _ICD#723.1 PRE SCREEN EXAM CX. PT CLAUSTRO; WILL TALK TO DR Hanh Mayer SCAN AT [facility] W/SED TECH-ID : [place] TRANS-ID: READ PROVIDER: 0 - SIGNOFF PROVIDER: 0 - Jonathan Juarez MD RAD MRI XR Os Calcis (11/20/2001 11:50 AM CDT) Anatomical Region Laterality Modality Other Specimen (Source) Anatomical Location Collection Method / Collectio n Time Received Time / Laterality Volume Narrative 11/20/2001 11:50 AM CDT CLINICAL DATA: ?LEFT HEEL PAIN. ?729.5 FINDINGS: ?LEFT CALCANEUS APPEARS NORMAL EXCE PT FOR MILD SPURRING ?AT THE PLANTAR ASPECT. ??NO FRACTU RE. ?[id number] - PLS TECH-ID : ? [facility] TRANS-ID: ? EDR Procedure Note Se Levine MD - 06/21/2016 CLINICAL DATA: LEFT HEEL PAIN. 729.5 FINDINGS: LEFT CALCANEUS APPEARS NORMAL EXCEPT FO R MILD SPURRING AT THE PLANTAR ASPECT. NO FRACTURE. [id number] - [facility] TECH-ID : [facility] TRANS-ID: EDR Morgan Arora BUTADIENE CONVERTER OPERATOR, CLOCK SMITH RAD GD (ABNORMAL) Urine Culture (06/03/2000 8:28 PM BOAT WORKER) [facility] Method Time Signature Urine Culture SEE TEXT HP CONVERSION (A) Comment: Patient: NICOLETTE RICE Culture, Urine @ ?Collected: ??[id number] ??2027 Source: Clean Ca ?Processed: ??[id number] ??2027 ? 1V,SENS Final Report ------ ?[id number] ??1016 <10,000 CFU/mL Gram negative rods No further workup @ = URINE CULTURE Performed at ??[address] [place], [place] ?[address] URINE CULTURE ([id number] -- Current) Specimen (Source) Anatomical Collection Method Collection Time Re ceived Time Location / / Volume Laterality 06/03/2000 8:28 PM BOAT WORKER Rudy Polo MD LAB_1 Performing Organization Address City/State/ZIP Code Phon e Number HP CONVERSION (ABNORMAL) Urinalysis Complete Hold Culture (06/03/2000 7:11 PM BOAT WORKER) [facility] gist Method Time Signature U Specific >=1.030 1.005 - 25 HP CONVERSION [place] pH Urine 5.0 4.5 - 7.5 HP CONVERSION Protein Urine Negative Neg-Trac HP CONVERSION Glucose, Negative Neg-Trac HP CONVERSION Qualitative U Ketones Trace (A) Negative HP CONVERSION U BILI Negative Negative HP CONVERSION Blood Urine Trace (A) Negative HP CONVERSION Nitrite Urine Negative Negative HP CONVERSION Leukocyte Small (A) Negative HP CONVERSION Esterase Urine Urobilinogen Negative 0.2 - 1.0 HP CONVERSION Urine White Blood >100 (A) 0 - 3 /HPF HP CONVERSION Cells Urine Red Blood Cells 10-25 (A) 0 - 3 /HPF HP CONVERSION Urine Epithelial Cells Few Few /HPF HP CONVERSION Bacteria Urine Moderate None HP CONVERSION (A) Urine Mucus Moderate None HP CONVERSION Hold For Yes No normal HP CONVERSION Culture? range Specimen (Source) Anatomical Collection Method Collection Time Re ceived Time Location / / Volume Laterality 06/03/2000 7:11 PM BOAT WORKER Rudy Polo MD LAB_1 Performing Organization Address [facility] Phon e Number HP CONVERSION Strep Group A Antigen Test (11/07/1999 10:49 AM CDT) [facility] Signature Strep Group A Negative Negative HP CONVERSION Antigen Test Comment: Culture to follow. Specimen (Source) Anatomical Collection Method Collection Time Re ceived Time Location / / Volume Laterality 11/07/1999 10:49 AM CDT Rudy Polo MD LAB_1 Performing Organization Address [facility] Code Phon e Number HP CONVERSION Beta Strep Followup (11/07/1999 10:49 AM CDT) athologist Signature Strep Screen SEE TEXT HP CONVERSION Comment: Patient: NICOLETTE RICE Lori Rapid Strep Follow up Culture @ ? Collected: ??[id number] ??1049 Source: Throat ?Processed: ??[id number] ??1050 Final Report ------ ?[id number] ??0750 No beta hemolytic Strep group A isolated . @ = Rapid F/U Cult Performed at ??[address] [place], [place] ?[address] Specimen (Source) Anatomical Collection Method Collection Time Re ceived Time Location / / Volume Laterality 11/07/1999 10:49 AM CDT Rudy Polo MD LAB_1 Performing Organization Address [facility]/ZIP Code Phon e Number HP CONVERSION Strep Group A Antigen Test (09/23/1998 7:23 PM CDT) [facility] Signature Strep Group A Negative Negative HP CONVERSION Antigen Test Comment: Culture to follow. Specimen (Source) Anatomical Collection Method Collection Time Re ceived Time Location / / Volume Laterality 09/23/1998 7:23 PM CDT Saadia Pinedo MD LAB_1 Performing Organization Address City/[facility]/ZIP Code Phon e Number HP CONVERSION Beta Strep Followup (09/23/1998 7:23 PM CDT) P athologist Signature Strep Screen SEE TEXT HP CONVERSION Comment: Patient: NICOLETTE RICE Rapid Strep Follow up Culture @ ? Collected: ??[id number] ??1922 Source: Throat ?Processed: ??[id number] ??1923 ? 1V Final Report ------ ?[id number] ??1157 No beta hemolytic Strep group A isolated . @ = Rapid F/U Cult Performed at ??[address] [place], [place] ?[address] Specimen (Source) Anatomical Collection Method Collection Time Re ceived Time Location / / Volume Laterality 09/23/1998 7:23 PM CDT Saadia Pinedo MD LAB_1 Performing Organization Address City/[facility]/ZIP Code Phon e Number HP CONVERSION Complete Blood Count-No Diff (07/20/1997 10:44 AM CDT) P athologist Signature White Blood Cell 7.6 3.8 - 11.0 HP CONVERSIO N Count K/cmm Red Blood Cell 5.04 4.20 - HP CONVERSION Count 5.90 M/CMM Hemoglobin 15.1 13.4 - HP CONVERSION 17.5 gm/dL Hematocrit 44.3 39.0 - HP CONVERSION 51.0 % Mean Corpuscular 87.9 80.0 - HP CONVERSION Volume 100.0 fl Mean Corpuscular 30.0 27.0 - HP CONVERSION Hemoglobin 34.0 pg Mean Corpuscular 34.1 32.0 - HP CONVERSION Hemoglobin Conc 36.5 gm/dL Terry RDW 13.2 11.0 - HP CONVERSION 15.0 % Platelet Count 223 140 - 450 HP CONVERSION k/cmm Comment: PLT CORRECTED FROM 211 TO 223 O N 07/20/97 BY HINCED Hematocrit/Hemoglobin Calculation 2.9 1.0 - 40.0 % HP CONVERSION Specimen (Source) Anatomical Collection Method Collection Time Re ceived Time Location / / Volume Laterality 07/20/1997 10:44 AM CDT Isis Polanco MD LAB_1 Performing Organization Address City/State/ZIP Code Phon e Number HP CONVERSION Rc-Lab Monospot (07/20/1997 10:44 AM CDT) Patholo gist Method Time Signature Infectious Negative No normal HP CONVERSION Mononucleosis range Screen Specimen (Source) Anatomical Collection Method Collection Time Re ceived Time Location / / Volume Laterality 07/20/1997 10:44 AM CDT Isis Polanco MD LAB_1 Performing Organization Address City/State/ZIP Code Phon e Number HP CONVERSION Differential Manual (07/20/1997 10:44 AM CDT) [facility] gist Method Time Signature Neutrophils 60 40 - 70 % HP CONVERSION Lymphocytes 25 20 - 40 % HP CONVERSION Monocyte 12 5 - 13 % HP CONVERSION Eosinophils 2 1 - 6 % HP CONVERSION Basophils 1 0 - 2 % HP CONVERSION Platelet Normal No normal HP CONVERSION Estimate range Specimen (Source) Anatomical Collection Method Collection Time Re ceived Time Location / / Volume Laterality 07/20/1997 10:44 AM CDT Isis Polanco MD LAB_1 Performing Organization Address City/State/ZIP Code Phon e Number HP CONVERSION MM Mammogram Screening W CAD (05/12/1993 11:46 AM BOAT WORKER) Anatomical Region Laterality Modality Breast Bilateral Mammography Specimen (Source) Anatomical Location Collection Method / Collectio n Time Received Time / Laterality Volume Narrative 05/12/1993 11:46 AM BOAT WORKER CLINICAL DATA: ?INJURY. FINDINGS: ?SOFT TISSUE SWELLING ADJACENT TO T HE LATERAL MALLEOLUS. ?HOWEVER, NO ACUTE TRAUMATIC CHANGE S ARE SEEN. ??SMALL OS ?SUBFIBULARE ACCESSORY BONES ARE UT ESENT. ??THERE IS ?HYPERTROPHIC SPURRING OFF OF THE P OSTERIOR PLANTAR SURFACE OF ?THE CALCANEUS WELL AT THE IN SERTION OF THE ACHILLES ?TENDON. TECH-ID : ? RE TRANS-ID: ? LAP Procedure Note Martin Kay MD - 06/21/2016Format ting of this note might be different from the original. CLINICAL DATA: INJURY. FINDINGS: SOFT TISSUE SWELLING ADJACENT TO THE LA TERAL MALLEOLUS. HOWEVER, NO ACUTE TRAUMATIC CHANGES ARE SEEN. SMALL OS SUBFIBULARE ACCESSORY BONES ARE PRESENT . THERE IS HYPERTROPHIC SPURRING OFF OF THE CORE SHAPER IOR PLANTAR SURFACE OF THE CALCANEUS WELL AT THE INSERTI ON OF THE ACHILLES TENDON. TECH-ID : RE TRANS-ID: LAP Adarsh Rueda MD RAD [facility] Anc Result Conversion Default Order (03/24/1993 9:30 AM BOAT WORKER) Anatomical Region Laterality Modality Other Specimen (Source) Anatomical Location Collection Method / Collectio n Time Received Time / Laterality Volume Narrative 03/24/1993 9:30 AM BOAT WORKER CLINICAL DATA: ?BILAT RENAL U/S AND KUB. ??RECURRE NT UTI'S. ?NO PREV ?SCHED:KYRA/1V FINDINGS: ?LEFT KIDNEY MEASURES 11 CM LONGITU DINALLY. ??RIGHT KIDNEY ?MEASURES 10 CM LONGITUDINALLY. ??T HERE IS A 16 X 18 MM CYST IN ?THE LOWER POLE OF THE LEFT KIDNEY. ??OTHERWISE KIDNEYS ?UNREMARKABLE. ??NO EVIDENCE FOR OB STRUCTION. TECH-ID : ? [place] TRANS-ID: ? LAP Procedure Note Masoud Sheppard MD - 06/21/2016Form atting of this note might be different from the original. CLINICAL DATA: BILAT RENAL U/S AND KUB. RECURRENT UTI' S. NO PREV SCHED:KYRA/V FINDINGS: LEFT KIDNEY MEASURES 11 CM LONGITUDINAL LY. RIGHT KIDNEY MEASURES 10 CM LONGITUDINALLY. THERE IS A 16 X 18 MM CYST IN THE LOWER POLE OF THE LEFT KIDNEY. OTHE RWISE KIDNEYS UNREMARKABLE. NO EVIDENCE FOR OBSTRUCTI ON. TECH-ID : [place] TRANS-ID: LAP Anibal Coreas MD RAD [facility] Anc Result Conversion Default Order (03/24/1993 9:30 AM BOAT WORKER) Anatomical Region Laterality Modality Other Specimen (Source) Anatomical Location Collection Method / Collectio n Time Received Time / Laterality Volume Narrative 03/24/1993 9:30 AM BOAT WORKER CLINICAL DATA: ?RECURRENT UTI'S. ?NO PREV ?SCHED:KYRA/V FINDINGS: ?NO SUSPICIOUS CALCIFICATIONS SEEN TO OVERLIE THE KIDNEYS. ?THERE IS A 1.5 MM X 3 MM CALCIFIC DENSITY IN THE RIGHT SIDE ?OF THE TRUE PELVIS WHICH COULD BE A PHLEBOLITH, BUT A RIGHT ?DISTAL URETERAL CALCULUS CANNOT BE COMPLETELY EXCLUDED. TECH-ID : TRANS-ID: ? LAP Procedure Note Masoud Sheppard MD - 06/21/2016Form atting of this note might be different from the original. CLINICAL DATA: RECURRENT UTI'S. NO PREV SCHED:KYRA/1V FINDINGS: NO SUSPICIOUS CALCIFICATIONS SEEN TO OV ERLIE THE KIDNEYS. THERE IS A 1.5 MM X 3 MM CALCIFIC DENSI TY IN THE RIGHT SIDE OF THE TRUE PELVIS WHICH COULD BE A PHL EBOLITH, BUT A RIGHT DISTAL URETERAL CALCULUS CANNOT BE COMP LETELY EXCLUDED. TECH-ID : TRANS-ID: LAP Anibal Sharer MD JUILO CARBAJAL documented in this encounter Visit Diagnoses Not on filedocumented in this encounter Care Teams Grinding Wheel Dresser Relationship Specialty Start Date End Date Binta Solorio MD PCP - General 07/17/10 08/06/12 [address] [place] [address] documented as of this encounter
--- OUTSIDE RECORDS SUMMARY | 2022-01-20 08:18 | XMS_ITS | Encounter Summary ---
:1950 Author Organization [employer] Address [address] [address] Care Team Providers Name Role Phone Carlos Solorio MD Primary Care Provider Encounter Details Date Type Department Care Team Description 08/17/2004 PN Conversion Only [place], [address] [place] [address] [address] [place] [address] Social History Tobacco Use Types Packs/Day Years Used Date Smoking Tobacco: Never Assessed Sex Assigned at Date Recorded Not on file documented as of this encounter Plan of Treatment Not on filedocumented as of this encounter Procedures Procedure Name Priority Date/Time Associated Diagnosis Comme nts INFLUENZA A AND B Routine 08/17/2004 3:14 PM Resu lts for this ANTIGEN CDT procedure are i n the results section. documented in this encounter Results (ABNORMAL) Influenza A and B Antigen (08/17/2004 3:14 PM CDT) [facility] Method Time Signature Influenza A & SEE TEXT HP CONVERSION B Ag (A) Comment: Patient: NICOLETTE RICE Influenza A,B (Swab, In House) @ ?Collected: ??[id number] ??[id number] Source: NASOPHAR ?Processed: ??[id number] ??[id number] ? 1V Final Report ------ ?[id number] ??0746 Positive for the presence of influenza A antigen. Infection control informed. CALLED MATTHEW AT [facility] POSITIVE INLFUENZA A ANTIGEN RESULT 08/19/04 08:37. KITGLADYSK @ = Influenza A+B Performed at ??[address] [facility], [place] ?[address] Specimen (Source) Anatomical Collection Method Collection Time Re ceived Time Location / / Volume Laterality 08/17/2004 3:14 PM CDT Xiang Beckwith MD LAB_1 Performing Organization Address City/State/ZIP Code Phon e Number HP CONVERSION documented in this encounter Visit Diagnoses Not on filedocumented in this encounter Care Teams Nutrition Helper Relationship Specialty Start Date End Date Carlos Solorio MD PCP - General 07/17/10 08/06/[address] [place] [phone] documented as of this encounter
--- OUTSIDE RECORDS SUMMARY | 2022-01-20 08:18 | XMS_ITS | Encounter Summary ---
:1950 Author Organization [facility] Address [address], [place] [address] Care Team Providers Name Role Phone Carlos Solorio MD Primary Care Provider Encounter Details Date Type Department Care Team Description 07/15/2008 Office Visit [facility], PT Therapy [address] [place] [address] [place] [phone] (Wo rk) Social History Tobacco Use Types Packs/Day Years Used Date Smoking Tobacco: Never Assessed Sex Assigned at Date Recorded Not on file documented as of this encounter Progress Notes Masoud Flores PT - 07/15/2008 12:01 AM CDT Progress Notes signed by Masoud Flores PT at 07/15/08 0833 Author: Masoud Flores PT Service: (none) Author Type: Physical Therapist Filed: 08/05/10 9825 Note Time: 07/15/08 0001 Status: Signed Woods Boss: Masoud Flores PT (Physical Therapist) [facility] Progress Note/Discharge Summary Visit Number: Referring Physician: Rudy Fitzgerald MD Referring Diagnosis: Right Gastroc strain (844.8) Orders: Evaluate and treat. Date of Onset: 06/15/2008 SUBJECTIVE: Minimal pain, feeling much better, up/down stairs no pain. OBJECTIVE: US 1 .2 w/cm2 x 10' continuous to right calf. Myofascial release, deep friction tissue mobilization x 10' to right posterior/inferior calf soleus stretch gentle 3 x 20 PROM for DF 3 x30 Mini squat 1 x 10-- proprioception on right 1x 30-60 seconds as pain allows. eccentric Heel raise on right 1 x 15 encouraged Raul to begin walking with in pain tolerance. start bike riding. trampoline x 30 jumping. no pain ASSESSMENT: FUll AROm, MMT 4/5 minimal pain, normal gait, pain free stairs. Achieved all goals. Can perform single calf raise PLAN: COntinue prn per MD sees MD next week. otherwise suggested continue with PRes at home will take 2-3 months to get full strength back with HEP, but anticipate him being able to return to work after next MD visit. Therapy Discharge Summary Onset Date: 06/15/08 First Visit Date (Eval date): 06/28/08 Final Visit Date: 07/15/08 Total Visits: 6 Missed Appointments: 0 Program Group -Musculoskeletal - ankle/foot Home program provided? -Yes Discharge Reason: Satisfactory Program Completion -Satisfactory goal achievement. -Patient elects to discontinue care; patient satisfied with progress made. -Evaluation with recommendations, no treatment. Discharge Recommendations -Continue to work independently with home program. -Recommend return to physician as needed. Procedures: Therapeutic Exercise (CPT 81194) 20 minutes. Manual Therapy, 1 or more regions (CPT 28481) 10 minutes. Ultrasound (CPT 54010) 10 minutes. Total treatment time: 40 minutes. Therapist: Jonathon Flores PT, [address] Note completed on: 07/15/2008 8:32 AM *SH~REHAB~TPNB ~ documented in this encounter Plan of Treatment Not on filedocumented as of this encounter Visit Diagnoses Not on filedocumented in this encounter Care Teams Pig Lead Melter Helper Relationship Specialty Start Date End Date Carlos Solorio MD PCP - General 07/17/10 08/06/12 [address] [place] [address] documented as of this encounter
--- OUTSIDE RECORDS SUMMARY | 2022-01-20 08:18 | XMS_ITS | Encounter Summary ---
:1950 Author Organization [email or web address] Address [address], [place] [address] Care Team Providers Name Role Phone Carlos Solorio MD Primary Care Provider Encounter Details Date Type Department Care Team Description 09/23/2008 PN Conversion Only [facility] CONVERSION Social History Tobacco Use Types Packs/Day Years Used Date Smoking Tobacco: Never Assessed Sex Assigned at Date Recorded Not on file documented as of this encounter Plan of Treatment Not on filedocumented as of this encounter Visit Diagnoses Not on filedocumented in this encounter Care Teams Manga Artist Relationship Specialty Start Date End Date Carlos Solorio MD PCP - General 07/17/10 08/06/12 [address] [place] [address] documented as of this encounter
--- OUTSIDE RECORDS SUMMARY | 2022-01-20 08:18 | XMS_ITS | Encounter Summary ---
:1950 Author Organization [facility] Address [address] [place] [address] Care Team Providers Name Role Phone Carlos Solorio MD Primary Care Provider Encounter Details Date Type Department Care Team Description 02/27/2006 Nursing Visit Sal Goddard MD [facility] [place] [address] [place] [address] [place] [address] [phone] (Wo rk) Social History Tobacco Use Types Packs/Day Years Used Date Smoking Tobacco: Never Assessed Sex Assigned at Date Recorded Not on file documented as of this encounter Plan of Treatment Not on filedocumented as of this encounter Visit Diagnoses Not on filedocumented in this encounter Care Teams Self Pay Specialist Relationship Specialty Start Date End Date Carlos Solorio MD PCP - General 07/17/10 08/06/12 [address] [place] [address] documented as of this encounter
--- OUTSIDE RECORDS SUMMARY | 2022-01-20 08:18 | XMS_ITS | Encounter Summary ---
:1950 Author Organization [facility] Address [address], [place] [address] Care Team Providers Name Role Phone Carlos Solorio MD Primary Care Provider Encounter Details Date Type Department Care Team Description 06/28/2008 Office Visit [facility] [place] [facility] [address] [phone] Social History Tobacco Use Types Packs/Day Years Used Date Smoking Tobacco: Never Assessed Sex Assigned at Date Recorded Not on file documented as of this encounter Progress Notes La Rubin - 06/28/2008 12:01 AM CDT Progress Notes signed by La Rubin PT at 06/29/08 0501 Author: La Rubin PT Service: (none) Author Type: Physical Therapist Filed: 08/05/10 1329 Note Time: 06/28/08 0001 Status: Signed Yard Motor Operator: La Rubin PT (Physical Therapist) Physical Therapy Ankle Evaluation Referring Physician: Rudy Fitzgerald MD Diagnosis: Right Gastroc strain (844.8) Orders: Evaluate and treat. Date of Onset: 06/15/2008 History of Onset: Pt was at work and injured his right gastroc on 06/15/08. saw Dr. Fitzgerald a couple weeks ago and had an MRI. He states that since injury: has not been working and not very active: household distances only for walking due to pain, was on crutches for a few days, then d/c amie bird MD okayed him to walk without crutches and use boots with a heel to decrease pain. 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 Follow up with MD before returning to work. SUBJECTIVE: Pt just had follow up with MD today and was referred to acute PT to get started on rehab. He lives in [place] so will continue rehab at [facility] PT OBJECTIVE: General: Mood, orientation, and behavior were appropriate. Patient was alert and oriented. Edema: Moderate swelling. Temperature: Normal bilaterally. ROM: AROM: DF: knee straight: 0, knee flexed: 10 PF: 38 Inversion/eversion not measured mild limits PROM: knee straight: 8 DF 13 knee bent circumference: 37cm left /41cm right at : 25 cm proximal to heel 39.5cm left/44 cm right at 30 cm proximal to heel Strength: unable to single leg calf raise, MMT: grossly 4+/5 with PF, 5/5 for DF, Inv, eversion Palpation: Tender: at musculotendious junction of gastroc fairly consistent both medial and lateral gastroc. Increased tightness and thickness of muscle noted in the gastroc area as well where it is painful Proprioception: Single leg stance: unable without UE support Weightbearing Observations: Weightbearing as tolerated. Gait Examination: Antalgic. Decreased heel strike. Decreased toe off. Decreased ankle dorsiflexion. Decreased weight shift. ASSESSMENT: Therapist Impression: Clinical findings are consistent with referring diagnosis. Practice Pattern: Impaired joint mobility, motor function, muscle performance, and ROM associated with connective tissue dysfunction (4D). Functional Limitations: Standing. Gait. Stairs. Work activities. Limitations due to: Muscle weakness. Joint pain (919.47). Proprioception deficits. Expected Functional Outcomes: Patient will: Demonstrate/verbalize independence with home exercise program following each treatment session. Able to ambulate unlimited distances with minimal to no limp/symptoms in 4-6 weeks. Navigate stairs without assistive device independently with minimal to no symptoms using a reciprocal pattern in 2-4 weeks. Squat to berry picker items from floor with minimal to no symptoms in 2-4 weeks. 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 TODAY'S INTERVENTION: Evaluation: An evaluation was performed. The patient was educated on the condition, planned therapy intervention and expectations from treatment. Goals were a collaborative effort of the therapist and patient. Manual therapy: STM to gastroc soleus muscle groups Therapeutic exercise: Patient was provided with the following educational and exercise handouts:instructed in PROM with belt to gastroc/soleus, AROM all motions, weight shifting with eventual single leg stance as able. PT performed PROM to gastroc/soleus today in PT as well Gait Training Includes: Heel/toe pattern. Education/Handouts: Diagnosis education. Response to treatment: Improved gait. Decreased pain. Good understanding of home exercise program. Charges: PT evaluation Ther ex Manual Therapy Total treatment time: 40 minutes. Therapist: La Rubin PT, [facility], [facility] #[id number] *SH~TRIA~ANKLEEVAL ~ Shorthand Note completed on: 06/29/2008 4:53 AM documented in this encounter Plan of Treatment Not on filedocumented as of this encounter Visit Diagnoses Not on filedocumented in this encounter Care Teams Lime Trimmer Relationship Specialty Start Date End Date Carlos Solorio MD PCP - General 07/17/10 08/06/12 [address] [place] [address] documented as of this encounter
--- OUTSIDE RECORDS SUMMARY | 2022-01-20 08:18 | XMS_ITS | Encounter Summary ---
:1950 Author Organization [facility] [employer] Address [address], [place] [address] Care Team Providers Name Role Phone Carlos Solorio MD Primary Care Provider Encounter Details Date Type Department Care Team Description 08/17/2004 Office Visit [facility] [place] [address] [address] [place] [address] Social History Tobacco Use Types Packs/Day Years Used Date Smoking Tobacco: Never Assessed Sex Assigned at Date Recorded Not on file documented as of this encounter Last Filed Vital Signs Vital Sign Reading Time Taken Comments Blood Pressure 134/72 08/17/2004 2:19 PM CDT Pulse 87 08/17/2004 2:19 PM CDT Temperature 37.6 ??C (99.7 ??F) 08/17/2004 2:19 PM CDT C: 37 .6 C Respiratory Rate 18 08/17/2004 2:19 PM CDT Oxygen Saturation 96% 08/17/2004 2:19 PM CDT Inhaled Oxygen Concentration - - Weight - - Height - - Body Mass Index - - documented in this encounter Progress Notes Xiang Phipps MD - 08/17/2004 12:01 AM CDT Progress Notes signed by Xiang Phipps MD at 11/21/042008 Author: Xiang Phipps MD Service: (none) Author Type: Physician Filed: 08/04/10 0553 Note Time: 08/17/042015 Status: Signed Inside Contractor Sales: Xiang Phipps MD (Physician) NAME: NICOLETTE RICE MR: [id number] ACCT: [id number] VISIT: [id number] DICTATING CLINICIAN: XIANG PHIPPS MD JOB: [id number] CLINIC PROGRESS NOTE DATE OF VISIT: 08/17/2004 SUBJECTIVE: The patient is feeling ill this week and really not improving. He was seen on Saturday and at that time having some backaches, bodyaches and chills. Was diagnosed with a urinary tract infection. His urinalysis was remarkable with 25-49 WBCs and moderate mucous and a few bacteria. The culture finally returns with less than 10,000 gram-negative rods. He had a similar process a number of years back, he states; and that culture looked about the same then. He did improve on medications. He has been started on Cipro now and does not really feel any better. He is noting no sweats and chills at night. Aches and now getting a sore throat and cough. Occasionally bringing up phlegm, clear in color. Denies any hemoptysis. He does relate to generalized ?. ??Denies aches and fatigue??. He did not have a flu shot this year. CURRENT MEDICATIONS: Cipro 500 b.i.d. He has been using Tylenol. ADR/ALLERGIES: NO KNOWN DRUG ALLERGIES. SOCIAL HISTORY: He is a nonsmoker. OBJECTIVE: VS: BP: 134/72. T: 99.7. P: 87. R: 18. O2 sat is 96% on room air. GENERAL APPEARANCE: He sounds a bit nasally congested. HEENT: TMs have no erythema or fluid. There is clear rhinorrhea from the nose. The pharynx shows erythema without exudate. NECK: ?. shotty and palpable at the angle of the jaw. He has generalized aches. LUNGS: Clear to auscultation, but he has a dry cough. BACK: There is no CVA tenderness. ABDOMEN: Soft without suprapubic tenderness. We reviewed the prostate exam which he had which was nontender. He says that he has good urine flow and denies noting any blood in the urine. ASSESSMENT: 1. Fever and chills. 2. Pharyngitis. 3. Cough. 4. Respiratory influenza. 5. UTI on medications. PLAN: I believe the Cipro should be good coverage for any kind of respiratory bacterial agent, so I am believing this to be a viral process with the ongoing fever and chills and bodyaches. He was started on Tamiflu 75 mg b.i.d. for five days. Influenza handout is given and reviewed. Advised him to be off work the remainder of this week. Nasal and pharyngeal swabs for the influenza antigen is obtained. Will contact him. Cell number [phone]. He will continue his Cipro as it as well. If he is positive with influenza, consider family members using prophylactic Tamiflu or other. BOR:[id number] C: 08/18/04 09:45 DOCUMENT: [id number] documented in this encounter Plan of Treatment Not on filedocumented as of this encounter Visit Diagnoses Not on filedocumented in this encounter Care Teams Certified Residential Medication Aide Relationship Specialty Start Date End Date Carlos Solorio MD PCP - General 07/17/10 08/06/12 [address] [place] [address] documented as of this encounter
--- OUTSIDE RECORDS SUMMARY | 2022-01-20 08:18 | XMS_ITS | Encounter Summary ---
:1950 Author Organization [facility] Address [address] [place] [address] Care Team Providers Name Role Phone Carlos Solorio MD Primary Care Provider Encounter Details Date Type Department Care Team Description 05/06/2008 PN Conversion Only [facility] [place] [address] [address] [place] [address] Social History Tobacco Use Types Packs/Day Years Used Date Smoking Tobacco: Never Assessed Sex Assigned at Date Recorded Not on file documented as of this encounter Plan of Treatment Not on filedocumented as of this encounter Visit Diagnoses Not on filedocumented in this encounter Care Teams Asbestos Brake Lining Finisher Relationship Specialty Start Date End Date Carlos Solorio MD PCP - General 07/17/10 08/06/12 [address] [place] [phone] documented as of this encounter
--- OUTSIDE RECORDS SUMMARY | 2022-01-20 08:18 | XMS_ITS | Encounter Summary ---
:1950 Author Organization [facility] Address [address] [place] [address] Care Team Providers Name Role Phone Carlos Solorio MD Primary Care Provider Encounter Details Date Type Department Care Team Description 06/15/2008 PN Conversion [facility] [address] [address] [place] [address] Social History Tobacco Use Types Packs/Day Years Used Date Smoking Tobacco: Never Assessed Sex Assigned at Date Recorded Not on file documented as of this encounter Plan of Treatment Not on filedocumented as of this encounter Visit Diagnoses Not on filedocumented in this encounter Care Teams Recreation Manager Relationship Specialty Start Date End Date Carlos Solorio MD PCP - General 07/17/10 08/06/12 [address] [place] [phone] documented as of this encounter
--- OUTSIDE RECORDS SUMMARY | 2022-01-20 08:18 | XMS_ITS | Encounter Summary ---
:1950 Author Organization [facility] Address [address] [place] [address] Care Team Providers Name Role Phone Carlos Solorio MD Primary Care Provider Encounter Details Date Type Department Care Team Description 01/12/2009 Nursing Visit [facility] Gallo Pandya MD [address] [place] [address] [address] [place] [phone] (Wo rk) Social History Tobacco Use Types Packs/Day Years Used Date Smoking Tobacco: Never Assessed Sex Assigned at Date Recorded Not on file documented as of this encounter Plan of Treatment Not on filedocumented as of this encounter Visit Diagnoses Not on filedocumented in this encounter Care Teams Tank Truck Loader Relationship Specialty Start Date End Date Carlos Solorio MD PCP - General 07/17/10 08/06/12 [address] [place] [address] documented as of this encounter
--- OUTSIDE RECORDS SUMMARY | 2022-01-20 08:18 | XMS_ITS | Encounter Summary ---
:1950 Author Organization [employer] Address [address], [place] [address] Care Team Providers Name Role Phone Carlos Solorio MD Primary Care Provider Encounter Details Date Type Department Care Team Description 08/14/2004 PN Conversion Only KARTIK CONVERSIO Hyacinth King [address] [place] [address] [facility] [address] [place], [place] [address] Social History Tobacco Use Types Packs/Day Years Used Date Smoking Tobacco: Never Assessed Sex Assigned at Date Recorded Not on file documented as of this encounter Plan of Treatment Not on filedocumented as of this encounter Procedures Procedure Name Priority Date/Time Associated Comments Diagnosis URINE CULTURE Routine 08/14/2004 2:08 PM Results for this CDT procedure are i n the results section. URINALYSIS COMPLETE Routine 08/14/2004 12:02 PM R esults for this HOLD CULTURE CDT procedure are i n the results section. documented in this encounter Results Urine Culture (08/14/2004 2:08 PM CDT) Analysis Performed At Patho logist Time Signature Urine Culture SEE TEXT HP CONVERSION Comment: Patient: NICOLETTE RICE Culture, Urine @ ?Collected: ?140 Source: Clean Ca ?Processed: ?140 ? 1V, SENS Final Report ------ ?1332 <10,000 CFU/mL gram negative jacob No further workup @ = URINE CULTURE Performed at [address] [place], [place] ?[address] Specimen (Source) Anatomical Collection Method Collection Time Re ceived Time Location / / Volume Laterality 08/14/2004 2:08 PM CDT Hyacinth Waller PA-C LAB_1 Performing Organization Address City/State/ZIP Code Phon e Number HP CONVERSION (ABNORMAL) Urinalysis Complete Hold Culture (08/14/2004 12:02 PM CDT) [facility] gist Method Time Signature U Specific 1.025 1.005 - 25 HP CONVERSION [place] pH Urine 5.5 4.5 - 7.5 HP CONVERSION Protein Urine Negative Neg-Trac HP CONVERSION Glucose, Negative Neg-Trac HP CONVERSION Qualitative U Ketones Trace (A) Negative HP CONVERSION U BILI Negative Negative HP CONVERSION Blood Urine Trace (A) Negative HP CONVERSION Nitrite Urine Negative Negative HP CONVERSION Leukocyte Negative Negative HP CONVERSION Esterase Urine Urobilinogen 2 EU/dL (A) 0.2 - 1.0 HP CONVERSION Urine White Blood 25-49/HP 0 - 3 HP CONVERSION Cells Urine (A) Red Blood Cells 0-2/HPF 0 - 2 HP CONVERSION Urine Epithelial Cells Few Few /HPF HP CONVERSION Bacteria Urine Few (A) None HP CONVERSION Urine Mucus Moderate None HP CONVERSION Crystals Amorph None HP CONVERSION Specimen (Source) Anatomical Collection Method Collection Time Re ceived Time Location / / Volume Laterality 08/14/2004 12:02 PM CDT Hyacinth Waller PA-C LAB_1 Performing Organization Address City/State/ZIP Code Phon e Number HP CONVERSION documented in this encounter Visit Diagnoses Not on filedocumented in this encounter Care Teams Dry Roller Relationship Specialty Start Date End Date Carlos Solorio MD PCP - General 07/17/10 08/06/[address] [place] [address] documented as of this encounter
--- OUTSIDE RECORDS SUMMARY | 2022-01-20 08:18 | XMS_ITS | Encounter Summary ---
:1950 Author Organization [facility] Address [address] [place] [address] Care Team Providers Name Role Phone Carlos Solorio MD Primary Care Provider Encounter Details Date Type Department Care Team Description 08/14/2004 PN Conversion Only KARTIK CONVERSIO [address] [address] [place] [address] Social History Tobacco Use Types Packs/Day Years Used Date Smoking Tobacco: Never Assessed Sex Assigned at Date Recorded Not on file documented as of this encounter Plan of Treatment Not on filedocumented as of this encounter Visit Diagnoses Not on filedocumented in this encounter Care Teams Inventory Accountant Relationship Specialty Start Date End Date Carlos Solorio MD PCP - General 07/17/10 08/06/12 [address] [place] Mcdonough [phone] documented as of this encounter
--- OUTSIDE RECORDS SUMMARY | 2022-01-20 08:18 | XMS_ITS | Encounter Summary ---
:1950 Author Organization [facility] Address [address] [place] [address] Care Team Providers Name Role Phone Carlos Solorio MD Primary Care Provider Encounter Details Date Type Department Care Team Description 02/29/2004 Office Visit [facility] [address] Angela MD [employer] [facility] [place], [place] [address] [address] Social History Tobacco Use Types Packs/Day Years Used Date Smoking Tobacco: Never Assessed Sex Assigned at Date Recorded Not on file documented as of this encounter Plan of Treatment Not on filedocumented as of this encounter Visit Diagnoses Not on filedocumented in this encounter Care Teams Catastrophe Claims Supervisor Relationship Specialty Start Date End Date Carlos Solorio MD PCP - General 07/17/10 08/06/12 [address] [place]on[place] [address] documented as of this encounter
--- OUTSIDE RECORDS SUMMARY | 2022-01-20 08:18 | XMS_ITS | Encounter Summary ---
:1950 [address] Address [address] [address] Care Team Providers Name Role Phone Carlos Solorio MD Primary Care Provider Encounter Details Date Type Department Care Team Description 08/14/2004 Office Visit [facility] Hyacinth Waller, [address] [place] [address] [facility] [phone] [place], [place] [address] Social History Tobacco Use Types Packs/Day Years Used Date Smoking Tobacco: Never Assessed Sex Assigned at Date Recorded Not on file documented as of this encounter Progress Notes Hyacinth Waller PA-C - 08/14/2004 12:01 AM CDT Progress Notes signed by Hyacinth Waller PA-C at 08/16/04 1354 Author: Hyacinth Waller PA-C Service: (none) Author Type: Resource Filed: 08/04/10 0547 Note Time: 08/14/04 0001 Status: Signed Community Health Agent: Hyacinth Waller PA-C (Resource) NAME: NICOLETTE RICE MR: [id number] ACCT: [id number] VISIT: [id number] DICTATING CLINICIAN: KIRBY MUSA JOB: [id number] CLINIC PROGRESS NOTE DATE OF VISIT: 08/14/2004 SUBJECTIVE: A 53-year-old male complaining of low grade fever for the past four days, states of up to 102 by mouth. He also noticed that his urine has been extremely concentrated. He has had decreased bowel movements, but has had increased urgency. He denies any history of constipation. He has had no dysuria. Complains of some myalgias. No symptoms. No previous history of UTI or prostatitis. All of the rest of complete review of systems is negative. PAST MEDICAL HISTORY: None. MEDICATIONS: None. ADR/ALLERGIES: NONE. SOCIAL HISTORY: Does not smoke. Patient denies any sexually transmitted disease risk. OBJECTIVE: VS: BP: 132/77. T: 98.8. P: 71. R: 18. Well-developed, well-nourished male in no acute distress, alert and cooperative. He looks well. He is alert and cooperative. He has no CVA tenderness to palpation. LUNGS: Clear, no rhonchi, wheezing or crackles. CV: Regular rate and rhythm, no murmurs, rubs or gallops. PROSTATE: Firm, nontender. Hemoccult is negative. Laboratory results as ordered and reviewed by myself: Specific gravity is 1.025. There was trace of ketones. Urobilinogen is 2. Leukocyte esterase negative. White blood cells are 25-49, 0-2 RBCs. ASSESSMENT: UTI. PLAN: Urine culture and sensitivity is pending. Patient started on Cipro 500 b.i.d. for the next 10 days. Symptomatic care. Follow up if symptoms are not improving or become worse. LAG:[id number] C: 08/15/04 01:43 DOCUMENT: [id number] documented in this encounter Plan of Treatment Not on filedocumented as of this encounter Visit Diagnoses Not on filedocumented in this encounter Care Teams Fretted String Instrument Repairer Relationship Specialty Start Date End Date Carlos Solorio MD PCP - General 07/17/10 08/06/12 [address] [place]on[place] [address] documented as of this encounter
--- OUTSIDE RECORDS SUMMARY | 2022-01-20 08:18 | XMS_ITS | Encounter Summary ---
:1950 Author Organization [employer] Address [address] [place] [address] Care Team Providers Name Role Phone Unassigned, Provider Primary Care Provider Unavailable Encounter Details Date Type Department Care Team Description 01/01/2002 Hospital Encounter BUDDHISM CONVERSION Dennise Angela MD [place] Social History Tobacco Use Types Packs/Day Years Used Date Smoking Tobacco: Never Assessed Sex Assigned at Date Recorded Not on file documented as of this encounter Plan of Treatment Not on filedocumented as of this encounter Procedures Procedure Name Priority Date/Time Associated Diagnosis Comme nts MR CERVICAL SPINE Routine 01/01/2002 10:53 AM Res ults for this WO IV CONT CDT procedure are i n the results section. documented in this encounter Results MR Cervical Spine WO IV Cont (01/01/2002 10:53 AM CDT) Anatomical Region Laterality Modality Spine, C-Spine, Neck, Vascular Other Specimen (Source) Anatomical Location Collection Method / Collectio n Time Received Time / Laterality Volume Impressions 01/01/2002 10:53 AM CDT : Mild bilateral neural foraminal narrowing at C3- 4, C4-5, and C5-6. ??Changes are slightl y more pronounced on the right at C5-6 where there is mild to moderate neural foraminal narrowing. ??The central spina l canal is patent at all levels in the cervical spine. MT-bc C: 01/01/02 4:22:18 PM Narrative 01/01/2002 10:53 AM CDT FINDINGS: Routine MRI of the cervical spine without contrast was performed. ??The cervical cord and v isualized posterior fossa structures are unremarkable. ??The re is minimal posterior subluxation of C4 on C5. ??Ali gnment is otherwise normal. ??There is mild diffuse disc deh ydration at all levels in the cervical spine. ??Axial im ages were obtained from C3 through T1. At C3-4 and C4-5, there is mild bilatera l neural foraminal narrowing secondary to uncinate and face t hypertrophy. ??The central spinal canal is patent. At C5-6 there is mild to moderate right neural foraminal narrowing and mild left neural foraminal narrowing. ??The central spinal canal is patent. At C6-7 and C7-T1, the central spinal ca nal and neural foramina are patent. Procedure Note Dominique Angela - 06/21/2016Formattin g of this note might be different from the original. FINDINGS: Routine MRI of the cervical sp ine without contrast was performed. The cervical cord and vis ualized posterior fossa structures are unremarkable. There is minimal posterior subluxation of C4 on C5. Align ment is otherwise normal. There is mild diffuse disc dehyd ration at all levels in the cervical spine. Axial imag es were obtained from C3 through T1. At C3-4 and C4-5, there is mild bilatera l neural foraminal narrowing secondary to uncinate and face t hypertrophy. The central spinal canal is patent. At C5-6 there is mild to moderate right neural foraminal narrowing and mild left neural foraminal narrowing. The central spinal canal is patent. At C6-7 and C7-T1, the central spinal ca nal and neural foramina are patent. IMPRESSION : Mild bilateral neural foraminal narrow ing at C3- 4, C4-5, and C5-6. Changes are slightly more pronounced on the right at C5-6 where there is mild to moderate neural foraminal narrowing. The central spinal canal is patent at all levels in the cervical spine. MT-bc C: 01/01/02 4:22:18 PM Dominique Angela MD RAD MRI documented in this encounter Visit Diagnoses Not on filedocumented in this encounter Care Teams Engineering Scientist Relationship Specialty Start Date End Date Unassigned, Provider PCP - General 01/17/00 11/17/[address] [place] [address] documented as of this encounter
--- OUTSIDE RECORDS SUMMARY | 2022-01-20 08:18 | XMS_ITS | Encounter Summary ---
:1950 Author Organization [facility] Address [address] [address] Care Team Providers Name Role Phone Carlos Solorio MD Primary Care Provider Encounter Details Date Type Department Care Team Description 07/12/2008 Office Visit [facility], PT Therapy [address] [place] [address] [place] [phone] (Wo rk) Social History Tobacco Use Types Packs/Day Years Used Date Smoking Tobacco: Never Assessed Sex Assigned at Date Recorded Not on file documented as of this encounter Progress Notes Masoud Flores PT - 07/12/2008 12:01 AM CDT Progress Notes signed by Masoud Flores PT at 07/12/08 1120 Author: Masoud Flores PT Service: (none) Author Type: Physical Therapist Filed: 08/05/10 1349 Note Time: 07/12/08 0001 Status: Signed Supervisor Filter Assembly: Masoud Flores PT (Physical Therapist) [facility] Progress Note Visit Number: Referring Physician: Rudy Fitzgerald MD Referring Diagnosis: Right Gastroc strain (844.8) Orders: Evaluate and treat. Date of Onset: 06/15/2008 SUBJECTIVE: Better less pain, less swelling easier to put boots on. OBJECTIVE: US 1 .2 w/cm2 x 10' continuous to right calf. Myofascial release, deep friction tissue mobilization x 10' to right posterior/inferior calf soleus stretch gentle 3 x 20 PROM for DF 3 x30 Mini squat 1 x 10-- proprioception on right 1x 30-60 seconds as pain allows. Added eccentric Heel raise on right 1 x 15 encouraged Raul to begin walking with in pain tolerance. ASSESSMENT: PLAN: COntinue 2x/week for ROM, progression of PREs Procedures: Therapeutic Exercise (CPT 49869) 15 minutes. Manual Therapy, 1 or more regions (CPT 28822) 10 minutes. Ultrasound (CPT 93107) 10 minutes. Total treatment time: 40 minutes. Therapist: Jonathon Flores PT, [address] Note completed on: 07/12/2008 11:20 AM *SH~REHAB~TPNB ~ documented in this encounter Plan of Treatment Not on filedocumented as of this encounter Visit Diagnoses Not on filedocumented in this encounter Care Teams Online Merchandiser Relationship Specialty Start Date End Date Carlos Solorio MD PCP - General 07/17/10 08/06/12 [address] [place]on[place] [address] documented as of this encounter
--- OUTSIDE RECORDS SUMMARY | 2022-01-20 08:18 | XMS_ITS | Encounter Summary ---
:1950 Author Organization [facility] Address [address], [place] [address] Care Team Providers Name Role Phone Carlos Solorio MD Primary Care Provider Reason for Visit Reason Comments Other Encounter Details Date Type Department Care Team Description 08/19/2004 Telephone [facility] re Laura Cm Other [address] [place], [place] [address] Social History Tobacco Use Types Packs/Day Years Used Date Smoking Tobacco: Never Assessed Sex Assigned at Date Recorded Not on file documented as of this encounter Progress Notes Laura Cm - 08/19/2004 11:01 AM CDT Phone Note filed by Laura Cm RN at 07/31/101811 Author: Laura Cm RN Service: (none) Author Type: (none) Filed: 07/31/101811 Note Time: 08/19/04 1101 Status: Signed Property Specialist: Laura Cm RN (Registered Nurse) Pt positive for influenza A. Is on Tamiflu. Document Management Specialist reads consider prophylactic treatment of family members. Discussed with Dr. Renteria and he states only if chronic health conditions. Notified pt of results and no family members have chronic health conditions. Discussed sign and symptoms of influenza with pt and if any family members develop these to see doctor for eval and treatment. He voiced understanding Created on 19Aug2004 11:01am by LAURA CM EY DOCTOR documented in this encounter Plan of Treatment Not on filedocumented as of this encounter Visit Diagnoses Not on filedocumented in this encounter Care Teams Space Systems Operations Manager Relationship Specialty Start Date End Date Carlos Solorio MD PCP - General 07/17/10 08/06/12 [address] [place]on[place] [address] documented as of this encounter
--- OUTSIDE RECORDS SUMMARY | 2022-01-20 08:18 | XMS_ITS | Encounter Summary ---
:1950 Author Organization [facility] Address [address] [address] Care Team Providers Name Role Phone Carlos Solorio MD Primary Care Provider Encounter Details Date Type Department Care Team Description 07/05/2008 Office Visit [facility], PT Therapy [address] [place] [address] [place] [address] [phone] (Wo rk) Social History Tobacco Use Types Packs/Day Years Used Date Smoking Tobacco: Never Assessed Sex Assigned at Date Recorded Not on file documented as of this encounter Progress Notes Masoud Flores PT - 07/05/2008 12:01 AM CDT Progress Notes signed by Masoud Flores PT at 07/05/08 0928 Author: Masoud Flores PT Service: (none) Author Type: Physical Therapist Filed: 08/05/10 1339 Note Time: 07/05/082015 Status: Signed Resource Development Director: Masoud Flores PT (Physical Therapist) [facility] Progress Note Visit Number: Referring Physician: Rudy Fitzgerald MD Referring Diagnosis: Right Gastroc strain (844.8) Orders: Evaluate and treat. Date of Onset: 06/15/2008 SUBJECTIVE: Better, easier to walk, less pain. OBJECTIVE: added US 1 .2 w/cm2 x 10' continuous to right calf. Myofascial release, deep friction tissue mobilization x 10' to right posterior/inferior calf soleus stretch gentle 3 x 20 PROM for DF 3 x30 Mini squat 1 x 10--reinstructed in form added proprioception on right 1x 30-60 seconds as pain allows. ASSESSMENT: Increased tolerance to stretches. Less pain almost normal gait today. Proprioception right 1-2 seconds, left 20 seconds. PLAN: COntinue 2x/week for ROM, progression of proprioception as pain allows. Procedures: Therapeutic Exercise (CPT 57855) 20 minutes. Manual Therapy, 1 or more regions (CPT 42187) 10 minutes. Ultrasound (CPT 87038) 10 minutes. Total treatment time: 40 minutes. Therapist: Jonathon Flores PT, [address] Note completed on: 07/05/2008 9:29 AM *SH~REHAB~TPNB ~ documented in this encounter Plan of Treatment Not on filedocumented as of this encounter Visit Diagnoses Not on filedocumented in this encounter Care Teams Coldfusion Relationship Specialty Start Date End Date Carlos Solorio MD PCP - General 07/17/10 08/06/12 [address] [place]on[place] [address] documented as of this encounter
--- OUTSIDE RECORDS SUMMARY | 2022-01-20 08:18 | XMS_ITS | Encounter Summary ---
:1950 Author Organization [facility] Address [address] [place] [address] Care Team Providers Name Role Phone Carlos Solorio MD Primary Care Provider Encounter Details Date Type Department Care Team Description 07/21/2008 Office Visit [facility] Brianna Polo MD [address] [facility] [address] [address] [place] [address] [place] [address] [phone] (Wo rk) Social History Tobacco Use Types Packs/Day Years Used Date Smoking Tobacco: Never Assessed Sex Assigned at Date Recorded Not on file documented as of this encounter Progress Notes Luis Polo MD - 07/21/2008 12:01 AM CDT Progress Notes signed by Luis Polo MD at 08/16/08 0904 Author: Luis Polo MD Service: (none) Author Type: Physician Filed: 08/05/10 1404 Note Time: 07/21/08 0001 Status: Signed Outreach Liaison: Luis Polo MD (Physician) NAME: NICOLETTE RICE VISIT: [id number] DICTATING CLINICIAN: LUIS SHERIFF MD JOB: [id number] LOC: 1307 CLINIC PROGRESS NOTE DATE OF VISIT: 07/21/2008 SUBJECTIVE: This is a 57-year-old male who is 5 weeks now status post gastroc strain. He is doing quite well. He still has a little bit of swelling, but really not much pain. He is no longer limping and is anxious to get back to work. OBJECTIVE: GENERAL: In no acute distress. INSPECTION: No deformities or signs of trauma. PALPATION: No point tenderness. Full range of motion of the ankle and knee. Grossly neurovascularly intact. ASSESSMENT: Resolving gastroc strain. PLAN: Patient is returned to full activity. If he has anymore problems he can follow up p.r.n. HW:sja DOCUMENT: [id number] documented in this encounter Plan of Treatment Not on filedocumented as of this encounter Visit Diagnoses Not on filedocumented in this encounter Care Teams Electrical Prospecting Engineer Relationship Specialty Start Date End Date Carlos Solorio MD PCP - General 07/17/10 08/06/12 [address] [place] [address] documented as of this encounter
--- OUTSIDE RECORDS SUMMARY | 2022-01-20 08:18 | XMS_ITS | Encounter Summary ---
:1950 Author Organization [email or web address] Address [address] [place] [address] Care Team Providers Name Role Phone Carlos Solorio MD Primary Care Provider Encounter Details Date Type Department Care Team Description 06/16/2008 PN Conversion Only [facility] [address] [place], [place] [address] Social History Tobacco Use Types Packs/Day Years Used Date Smoking Tobacco: Never Assessed Sex Assigned at Date Recorded Not on file documented as of this encounter Plan of Treatment Not on filedocumented as of this encounter Procedures Procedure Name Priority Date/Time Associated Diagnosis Comme nts MR ANKLE RT WO IV Routine 06/16/2008 11:45 AM Res ults for this CONT INSPECTOR PLATING procedure are i n the results section. documented in this encounter Results MR Ankle Rt WO IV Cont (06/16/2008 11:45 AM INSPECTOR PLATING) Anatomical Region Laterality Modality Lower Extremity, Ankle, Foot, Leg, Skeletal, Foot & Ankle Ri ght Other Specimen (Source) Anatomical Location Collection Method / Collectio n Time Received Time / Laterality Volume Impressions 06/16/2008 11:45 AM INSPECTOR PLATING : ? 1. Moderate partial thickness tea ring of the musculotendinous junction of the gastrocnemius muscle in the mid and distal calf, where there is small hematoma formation. ??There is also moderately advanced partial thickness tearing of th e gastrocnemius component of the Achilles tendon distal to the gastro cnemius musculotendinous junction. ??However, the majority of the achilles tendon including the soleus component remains intact with onl y tendinosis of the achilles tendon distal to the soleus musculotendi nous junction. ? 2. Extensive fluid and edema abou t the gastrocnemius muscle and tendon in the superficial posterior comp artment. ? 3. Low-grade muscular strain of t he peroneus brevis with no discrete peroneus brevis tearing. ? 4. No evidence for calcaneal frac ture. [facility]/ [id number] Dictating BOLA HINTON Radiologist Narrative 06/16/2008 11:45 AM INSPECTOR PLATING HISTORY: ??Right ankle pain, evaluate for calcaneal fracture or Achilles rupture. FINDINGS: ??Routine noncontrast MRI of t he right ankle was performed with additional imaging in the midcalf t o evaluate the Achilles tendon. There is partial thickness tearing at th e musculotendinous junction of the medial and lateral head gastrocne mius muscles within the mid calf, which is best seen on series 7, im ages 20 through 32. ??There is probable associated hematoma formation. ??There is extensive fluid and edema about the gastrocnemius musculatur e in the mid and lower calf. More distally, distal to the musculotend inous junction of the gastrocnemius muscles, there is addition al partial thickness tendinous tearing, which is best seen on series 5, images 10-14. ??The partial thickness tearing primarily invo lves the gastrocnemius contribution to the Achilles tendon. ??D istal to the musculotendinous junction there is thickening and tendino sis of the Achilles tendon, and perhaps a small focal area of intras ubstance partial tearing on series 2, image 20, however no significa nt tearing of the Achilles tendon is present distal to the musculot endinous junction. ??The soleus contribution to the Achilles tend on does not demonstrate a discrete tear. ??Likewise, there is no s ignificant edema signal within the soleus musculature. There is mild edema signal within the pe roneus brevis muscle, which could represent low-grade muscular strai n. ??No discrete peroneal tendon tear is seen. ??Flexor and extens or tendons at the ankle otherwise appear intact. ??Small ununite d ossicle distal to the fibula likely represents a chronic avulsion fra gment from the ATFL attachment. ??The ATFL itself appears gr ossly intact, as does the posterior talofibular ligament. ??Anteri or and posteroinferior tibiofibular ligaments appear grossly in tact, as does the visualized portion of the deltoid ligament complex. No significant bone marrow signal abnorm ality, including no evidence for a calcaneal fracture. ??There is sub cutaneous soft tissue edema about the calf and ankle diffusely, whic h is greatest posteriorly, although is also present anteromedially. Procedure Note Bola Greer MD - 06/15/2016 HISTORY: Right ankle pain, evaluate for calcaneal fracture or Achilles rupture. FINDINGS: Routine noncontrast MRI of the right ankle was performed with additional imaging in the midcalf t o evaluate the Achilles tendon. There is partial thickness tearing at th e musculotendinous junction of the medial and lateral head gastrocne mius muscles within the mid calf, which is best seen on series 7, im ages 20 through 32. There is probable associated hematoma formation. There is extensive fluid and edema about the gastrocnemius musculatur e in the mid and lower calf. More distally, distal to the musculotend inous junction of the gastrocnemius muscles, there is addition al partial thickness tendinous tearing, which is best seen on series 5, images 10-14. The partial thickness tearing primarily invo lves the gastrocnemius contribution to the Achilles tendon. Dis morteza to the musculotendinous junction there is thickening and tendino sis of the Achilles tendon, and perhaps a small focal area of intras ubstance partial tearing on series 2, image 20, however no significa nt tearing of the Achilles tendon is present distal to the musculot endinous junction. The soleus contribution to the Achilles tend on does not demonstrate a discrete tear. Likewise, there is no sig nificant edema signal within the soleus musculature. There is mild edema signal within the pe roneus brevis muscle, which could represent low-grade muscular strai n. No discrete peroneal tendon tear is seen. Flexor and extensor tendons at the ankle otherwise appear intact. Small ununited ossicle distal to the fibula likely represents a chronic avulsion fra gment from the ATFL attachment. The ATFL itself appears chemo sly intact, as does the posterior talofibular ligament. Anterior and posteroinferior tibiofibular ligaments appear grossly in tact, as does the visualized portion of the deltoid ligament complex. No significant bone marrow signal abnorm ality, including no evidence for a calcaneal fracture. There is subcu taneous soft tissue edema about the calf and ankle diffusely, whic h is greatest posteriorly, although is also present anteromedially. IMPRESSION : 1. Moderate partial thickness tearing o f the musculotendinous junction of the gastrocnemius muscle in the mid and distal calf, where there is small hematoma formation. There is also moderately advanced partial thickness tearing of th e gastrocnemius component of the Achilles tendon distal to the gastro cnemius musculotendinous junction. However, the majority of the a chilles tendon including the soleus component remains intact with onl y tendinosis of the achilles tendon distal to the soleus musculotendi nous junction. 2. Extensive fluid and edema about the gastrocnemius muscle and tendon in the superficial posterior comp artment. 3. Low-grade muscular strain of the per oneus brevis with no discrete peroneus brevis tearing. 4. No evidence for calcaneal fracture. [facility]/ [id number] Dictating BOLA HINTON Radiologist Rudy Polo MD RAD MRI documented in this encounter Visit Diagnoses Not on filedocumented in this encounter Care Teams Custodial Officer Relationship Specialty Start Date End Date Carlos Solorio MD PCP - General 07/17/10 08/06/12 [address] [place] [address] documented as of this encounter
--- OUTSIDE RECORDS SUMMARY | 2022-01-20 08:18 | XMS_ITS | Encounter Summary ---
:1950 Author Organization [facility] Address [address] [place] [address] Care Team Providers Name Role Phone Carlos Solorio MD Primary Care Provider Encounter Details Date Type Department Care Team Description 02/25/2006 PN Conversion Only [facility] [address] [place] [address] Social History Tobacco Use Types Packs/Day Years Used Date Smoking Tobacco: Never Assessed Sex Assigned at Date Recorded Not on file documented as of this encounter Plan of Treatment Not on filedocumented as of this encounter Visit Diagnoses Not on filedocumented in this encounter Care Teams Filler Wiper Relationship Specialty Start Date End Date Carlos Solorio MD PCP - General 07/17/10 08/06/12 [address] [place] [id number] documented as of this encounter
--- OUTSIDE RECORDS SUMMARY | 2022-01-20 08:18 | XMS_ITS | Encounter Summary ---
:1950 Author Organization [facility] Address [address] [address] Care Team Providers Name Role Phone Carlos Solorio MD Primary Care Provider Encounter Details Date Type Department Care Team Description 03/09/2003 PN [place]version [place] [address] [facility] [address] [place] [address] [address] [phone] [place] [address] (Wo rk) Social History Tobacco Use Types Packs/Day Years Used Date Smoking Tobacco: Never Assessed Sex Assigned at Date Recorded Not on file documented as of this encounter Progress Notes Rosemary Lau MD - 03/09/2003 12:01 AM CST Progress Notes signed by Rosemary Lau MD at 03/14/03 1606 Author: Rosemary Lau MD Service: (none) Author Type: Physician Filed: 08/03/10 1813 Note Time: 03/09/03 0001 Status: Signed Scientific Software Developer: Rosemary Lau MD (Physician) NAME: NICOLETTE RICE MR: [id number] ACCT: [id number] VISIT: [id number] DICTATING CLINICIAN: ROSEMARY LAU MD JOB: [id number] CLINIC PROGRESS NOTE DATE OF VISIT: 03/09/2003 SUBJECTIVE: : 1950. Chief Complaint: Left eye redness. HPI: A 52-year-old who has noticed erythema of the left eye for the last couple of days. He does pretty well during the day, does not have any donald drainage, but it does start watering and has some pain in the evening. Vision is normal. No photophobia. Has had a little bit of rhinorrhea just on the left side. Denies any other upper respiratory symptoms. He has been refinishing some furniture at home, but wears a face shield when he is grinding. Otherwise, does some sanding and things. Does not feel like there is a foreign body there. Last tetanus is unknown. PMH: Negative. MEDICATIONS: None. ADR/ALLERGIES: NONE. SOCIAL HISTORY: He is laid off, will lose his insurance in April. OBJECTIVE: VS: BP: 130/80. T: 98.4. P: 60. R: 20. Alert, cooperative, nontoxic. He is quite pleasant. EYES: PERRLA. EOMI. The left fundus is benign. Initially I did not see any foreign body of the eye. It is diffusely injected. There is no donald drainage. Then, fluorescein staining is done and there is uptake at about 11 o'clock on the eye. When I rinse then I see a foreign body there. I took a sterile eye spud and after instilling some more lidocaine was able to remove this piece of material. On the tissue it was dark and with just a little pressure it would fall apart. However, underneath this I did notice that there was a collection of rust. It is not definitely in a ring, but there is some debris just at the intersection between the iris and the sclera on the edge. He tolerated the foreign body removal well. EARS: TMs are normal. NARES: The left is almost entirely plugged. Right is patent. Oral cavity shows a little cobblestoning. Sinuses are nontender. ASSESSMENT: 1. Foreign removal of the left eye. 2. Jay debris in the eye secondary to #1. 3. Tetanus is updated. PLAN: He is referred to ophthalmology at 11:10 this morning. The site reliability engineer will take a look and take care of the rust. I did not start him on antibiotics since he does have that appointment right away. Tetanus is updated here. Should follow up for any other problems. TT: CT: [id number] C: 03/09/03 10:48 DOCUMENT: [id number] RIDGE ASSEMBLER documented in this encounter Plan of Treatment Not on filedocumented as of this encounter Visit Diagnoses Not on filedocumented in this encounter Care Teams Adjuster Arbitrator Relationship Specialty Start Date End Date Carlos Solorio MD PCP - General 07/17/10 08/06/12 [address] [place]cdonough [id number] documented as of this encounter
[2022-01-20] MEDS: predniSONE 10 MG TABLET 50 MG PO (08:26)
[2022-01-20] MEDS: MORPHINE 10 MG/ML inj 7.5 MG IM (08:26)
--- OUTSIDE RECORDS SUMMARY | 2022-01-20 08:26 | XMS_ITS | Encounter Summary ---
:1950 Author Organization [facility] Address [address] [place] [address] Care Team Providers Name Role Phone Carlos Solorio MD Primary Care Provider Encounter Details Date Type Department Care Team Description 06/16/2008 Office Visit [facility] Brianna Polo MD [address] [facility] [address] [facility] [address] [place] [address] [place] [address] [phone] (Wo rk) Social History Tobacco Use Types Packs/Day Years Used Date Smoking Tobacco: Never Assessed Sex Assigned at Date Recorded Not on file documented as of this encounter Progress Notes Luis Polo MD - 06/16/2008 12:01 AM CST Progress Notes signed by Luis Polo MD at 07/06/08 1526 Author: Luis Polo MD Service: (none) Author Type: Physician Filed: 08/05/10 1311 Note Time: 06/16/08 0001 Status: Signed Tooth Cutter Spur: Luis Polo MD (Physician) NAME: NICOLETTE RICE VISIT: [id number] DICTATING CLINICIAN: LUIS SHERIFF MD JOB: [id number] LOC: 3711 CLINIC PROGRESS NOTE DATE OF VISIT: 06/16/2008 This is a 57-year-old male who had his right foot caught in a pallet and fell injuring his calf, ankle and heel bone. This occurred yesterday. He is weightbearing but it is quite painful. He was seen in urgent care and told to ice and given a CAM boot. REVIEW OF SYSTEMS: Negative for fever, rash, numbness or tingling. PAST MEDICAL HISTORY: Negative for diabetes, stomach problems. He does not smoke. MEDICATIONS: Per LastWord. ADR/ALLERGIES: PER LASTWORD. 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 OBJECTIVE: GENERAL: No acute distress. Cooperative male. SKIN: Overlying the area is negative for rash. Patient has tenderness generally along his calf and Achilles. I do not palpate a defect in the Achilles, but his Mathur test is positive. He has positive calcaneal squeeze test. No tenderness over the medial or lateral malleolus or over the anterior aspect of his lower leg. He has active flexion/extension of his foot and ankle. There is no instability. He is grossly neurovascularly intact. There is no tenderness in the midfoot or hindfoot. Previous x-rays of the tib-fib, ankle, and foot reveal an irregularity of the calcaneus, probably consistent with an acute fracture. ASSESSMENT: Ankle and calcaneal pain. PLAN: Patient is sent for an MRI of his ankle to include the Achilles and the calcaneus to evaluate for fracture and an Achilles rupture. He was given a note for seated work for 2 weeks. I will see him back after the MRI with further recommendations. He was made non-weightbearing in the meantime. ADDENDUM: This is a 57-year-old male who I am calling back with his MRI results which show a gastrocnemius tear. Recommended heel lifts, ice, elevation, and weight-bearing only as tolerated. I will see him back in a week for reevaluation. HW:k DOCUMENT: [id number] documented in this encounter Plan of Treatment Not on filedocumented as of this encounter Visit Diagnoses Not on filedocumented in this encounter Care Teams Catering Service Manager Relationship Specialty Start Date End Date Carlos Solorio MD PCP - General 07/17/10 08/06/12 [address] [place] [address] documented as of this encounter
== END 2022-01-20 08:36 | disposition home or self-care (01) ==
PROVIDERS: PCP Family Medicine
DX: M70.62 Trochanteric bursitis, left hip (principal)
CPT/HCPCS: 96372; 99283; J2270; J7512

== ENCOUNTER 2022-05-24 13:49 | Outpatient (CLI) | payer MEDICARE, SELFPAY ==
--- NOTE | 2022-05-24 14:30 | MR_ITS ---
[address] [address] Phone:?[phone] Fax:?[phone] Referring Physician Information: Juve Muniz M.D. [address] [facility] [address] Phone:?[phone] Fax:?[phone] Patient:?Raul Dickson D.O.B:?1950 Sex:?Male Phone:?[phone] [facility] MRN:?[id number] Exam Date:?05/24/2022 ? EXAM: MRI OF THE LEFT SHOULDER CLINICAL INFORMATION: The patient is a 71-year-old with left shoulder pain. Evaluate for rotator cuff tear. PRIOR SURGERY: None reported. COMPARISON STUDIES: There are no prior studies available for comparison. TECHNICAL INFORMATION: Using a 1.5T MR scanner and a localizing shoulder surface coil: 3.0 mm?coronal obliques: PD, T2, STIR 3.0 mm?sagittal obliques: PD, T2 3.0 mm?axials: PD, T2 FINDINGS: Articular/Extraarticular collections: Effusion: Mild to moderate. Subacromial/subdeltoid: Mild to moderate fluid is seen within the subacromial/subdeltoid bursa, in keeping with the broad-based, full-thickness tearing of the supraspinatus and infraspinatus tendons described below. Subcoracoid: No evidence for bursitis. Osseous structures: Proximal humerus: No evidence for bony injury to the proximal humerus can be seen. There is no evidence for greater tuberosity fracture. No Hill-Sachs or reverse Hill-Sachs deformity is seen. Glenoid: No acute bony abnormality of the glenoid fossa or glenoid neck can be seen. Acromioclavicular joint: Moderate changes of acromioclavicular joint arthrosis are present and can be seen on coronal series 4 image 7 and on sagittal series 7 image 15. Coracoacromial arch: Acromion morphology: Type II. No evidence for os acromiale. Acromiohumeral space: Moderately narrowed. Coracohumeral space: Within normal limits. Rotator cuff and deltoid: Supraspinatus: There is broad-based, full-thickness tearing of the supraspinatus tendon fibers, seen to best advantage on coronal series 6 image 13 and on sagittal series 8 image 11. The area of full-thickness tearing measures 4.6 cm in mediolateral dimension and 3.1 cm in anteroposterior dimension. No definite atrophic changes of the supraspinatus muscle belly are seen. Infraspinatus: Broad-based, full-thickness tearing of the infraspinatus tendon can be seen on coronal series 6 image 15 and on sagittal series 8 image 11, measuring approximately 4.7 cm in mediolateral dimension and 2.5 cm in anteroposterior dimension. Atrophic changes of the infraspinatus muscle belly are seen on sagittal series 8 image 25. Teres minor: No evidence for tendinosis, tearing, or associated muscle belly atrophy. Subscapularis: Moderate subscapularis tendinosis can be seen without definite full-thickness tearing or retraction. No atrophic changes of the subscapularis muscle belly are noted. Deltoid: No evidence for strain or tearing. Biceps tendon: Tendinosis, flattening, splitting, and partial-thickness tearing of the long head of the biceps can be seen. There is no evidence for rupture or dislocation. Glenohumeral joint and labrum: Articular Cartilage: Chondromalacia and chondral thinning along the articular surfaces of the glenohumeral articulation can be seen without well-defined full- thickness chondral defect. No definite osteoarthritic changes are present. Labrum: Degeneration and tearing of the entire glenoid labrum can be seen. No paralabral ganglion cyst formation is identified. Capsular Soft Tissues: Nonspecific thickening of the capsular structures of the glenohumeral articulation can be seen in the region of the axillary recess. The findings may relate to changes of adhesive capsulitis. CONCLUSION: 1. Broad-based, full-thickness tearing of the supraspinatus and infraspinatus tendons as described above. 2. Moderate subscapularis tendinosis. 3. Moderate acromioclavicular joint arthrosis with moderate narrowing of the acromiohumeral space. 4. Tendinosis, flattening, splitting, and partial-thickness tearing of the long head of the biceps. 5. Degeneration and tearing of the glenoid labrum. 6. Chondromalacia and chondral thinning along the articular surfaces of the glenohumeral articulation. 7. Nonspecific thickening of the capsular structures can be seen in the region of the axillary recess, possibly related to adhesive capsulitis. AEC Electronically signed on 05/25/2022 7:39:00 AM by Maik Lawrence M.D.
== END 2022-05-24 13:50 | disposition home or self-care (01) ==
LOC: MRI 13:51
PROVIDERS: PCP Family Medicine; Visit Provider Orthopaedic Surgery Sports Medicine
DX: M25.512 Pain in left shoulder (principal); M75.102 Unspecified rotator cuff tear or rupture of left shoulder, not specified as traumatic; M19.012 Primary osteoarthritis, left shoulder; M94.212 Chondromalacia, left shoulder
CPT/HCPCS: 73221

== ENCOUNTER 2022-06-04 14:37 | Outpatient (CLI) | payer MEDICARE, SELFPAY | END 2022-06-04 14:38 | disposition home or self-care (01) | PROVIDERS: PCP Family Medicine; Referring Provider Orthopaedic Surgery Sports Medicine; Visit Provider Family Medicine | DX: M25.552 Pain in left hip (principal); M79.605 Pain in left leg; I73.9 Peripheral vascular disease, unspecified; M48.00 Spinal stenosis, site unspecified | CPT/HCPCS: 93922 ==

== ENCOUNTER 2022-06-07 15:24 | Emergency (ER) | payer MEDICARE, SELFPAY ==
[2022-06-07 15:33] VITALS: BP 156/85; PULSE 86; RESP 20; TEMP 36.8; O2SAT 96; BMI 35.0
--- NOTE | 2022-06-07 16:03 | CRLHL7_ITS ---
For Patients: As a result of the Cures Act, medical imaging exams and procedure reports are released immediately into your electronic medical record. You may view this report before your referring provider. If you have questions, please contact your health care provider. Indication: Left hip pain. Technique: AP view of the pelvis and two views of the left hip. Comparison: None. Findings: Bones: Alignment is normal. No fractures or bone lesions. Joint spaces: Mild bilateral hip degenerative changes.. Soft tissues: Unremarkable. Impression: No sign of acute injury. Dictated by Chrissie Lewis MD @ 06/07/2022 4:38:15 PM (Electronically Signed)
--- NOTE | 2022-06-07 16:03 | ED.GENADULT ---
HPI - General Adult General Chief complaint: Extremity Pain/Injury, Lower Stated complaint: Left Leg Pain - difficulty walking Time Seen by Provider: 06/07/22 15:51 History of Present Illness HPI narrative: This 71-year-old male comes in with left hip pain radiating down to his left knee. He does not report any recent injury event or strenuous activity. 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 He states that he had a therapeutic injection in this hip about 6 months ago which brought some temporary relief. He is seeing orthopedic clinic for his hip and shoulder. He states that his pain is significantly worse over the last day or so. He is able to ambulate but with difficulty. Related Data Home Medications Medication Instructions Recorded Confirmed Lactobacillus acidophilus 10 mg PO QDAY 11/28/21 05/29/22 magnesium 200 mg tablet 200 mg PO QDAY 11/28/21 05/29/22 multivitamin 1 tab PO QAM 11/28/21 05/29/22 psyllium 1 tbsp PO ONCE 11/28/21 05/29/22 triamterene 37.5 1 tab PO DAILY 11/28/21 05/29/22 mg-hydrochlorothiazide 25 mg tablet aspirin 325 mg tablet 325 mg PO QDAY 01/16/22 05/29/22 cholecalciferol (vitamin D3) 50 50 mcg PO QDAY 01/16/22 05/29/22 mcg (2,000 unit) capsule diphenhydramine 25 1 tab PO QHS PRN 01/16/22 05/29/22 mg-acetaminophen 500 mg tablet (Tylenol PM Extra Strength) potassium 99 mg tablet mg PO .Q day 01/16/22 05/29/22 Previous Rx's Medication Instructions Recorded metformin 500 mg tablet,extended 500 mg PO DAILY #60 tabs 03/28/22 release 24 hr amlodipine 10 mg tablet 10 mg PO DAILY #30 tabs 03/29/22 gabapentin 100 mg capsule See Rx Instructions PO QHS #60 caps 04/23/22 atorvastatin 20 mg tablet See Rx Instructions .Route 05/02/22 .COMPLEX #90 tabs cyclobenzaprine 10 mg tablet 10 mg PO TID #15 tabs 06/07/22 hydrocodone 5 mg-acetaminophen 325 1 tab PO Q4-6H PRN pain #20 tabs 06/07/22 mg tablet ketorolac 10 mg tablet 10 mg PO Q8H 5 days #15 tabs 06/07/22 methylprednisolone 4 mg tablets in See Rx Instructions PO .COMPLEX 06/07/22 a dose pack (Medrol (Dimitrios)) #21 ea Allergies Allergy/AdvReac Type Severity Reaction Status Date / Time lisinopril AdvReac Mild Cough Verified 06/07/22 15:33 losartan AdvReac Mild Cough Verified 06/07/22 15:33 Review of Systems Status of ROS: Reports: 10 or more systems reviewed and unremarkable except as noted in History and below Narrative: Constitutional: No fevers, no weight gain or loss. Eyes: No discharge. No vision changes. HENT: No congestion, no sore throat, no ear pain. Cardiovascular: No chest pain, no palpitations. Respiratory: No shortness of breath, no wheezes, no cough. Gastrointestinal: No abdominal pain, no vomiting, no diarrhea. Genitourinary: No dysuria, no hematuria. Musculoskeletal: Acute on chronic Left hip pain. Chronic left shoulder pain. Skin: No rashes, no pruritis. Neurological: No dizziness, weakness, sensory change, speech change. Endo/Heme/Allergies: No bruising or bleeding. No polydipsia. Pysch: no suicidality, no anxiety, no insomnia. All other systems reviewed and are negative. [facility] Medical History History of stress test Surgical History History of colectomy History of colonoscopy History of rotator cuff surgery History of transurethral resection of prostate Family History Mother Aortic aneurysm Other Heart disease Lung cancer Social History , [facility]) Narrative: , spouse w/ multiple sclerosis retired from employment Smoking Status: Never smoker Non-prescribed substance use: denies use Little interest or pleasure in doing things: several days Feeling down, depressed, or hopeless: not at all service: No Exam Narrative: Exam Narrative: Constitutional: Well-developed, well-nourished, no acute distress. HEENT: Normocephalic, atraumatic. Neck: Normal range of motion. Nontender. Supple. Heart: Regular. No murmurs. Normal rate. Intact distal pulses. Lungs: Clear to auscultation. No chest discomfort. No wheezes, rhonchi, or rales. Abdomen: Normal bowel sounds. Nontender. No rebound tenderness. Genitalia: Deferred. Back: No midline tenderness. Normal range of motion. Extremities: Normal range of motion. No sign of injury. Left hip pain radiates down to the left knee. Skin: Intact. No rash. Warm. No erythema or pallor. Neurologic: No altered sensation. No weakness. Alert and oriented. Psychiatric: No suicidality. No anxiety or depression. No insomnia. Nursing notes and vitals signs are reviewed. Const: Vital Signs, click to edit/add: Vital Signs - 24 hr 06/07/22 15:33 Temperature 98.3 F Pulse Rate [Pulse Oximeter] 86 Respiratory Rate 20 Blood Pressure [Le ft Upper Arm] 156/85 H Pulse Oximetry 96 Oxygen Delivery Me thod Room Air Course Vital Signs Vital signs: Initial Vital Signs Temperature 98.3 F 06/07/22 15:33 Temperature Source Temporal Artery Scan 06/07/22 15:33 Pulse Rate 86 06/07/22 15:33 Pulse Rhythm 06/07/22 15:33 Respiratory Rate 20 06/07/22 15:33 Blood Pressure 156/85 H 06/07/22 15:33 Blood Pressure Mean 108 06/07/22 15:33 Blood Pressure Position Supine 06/07/22 15:33 Pulse Oximetry 96 06/07/22 15:33 Oxygen Delivery Method 06/07/22 15:33 Vital Signs Temperature 98.3 F 06/07/22 15:33 Pulse Rate 86 06/07/22 15:33 Respiratory Rate 20 06/07/22 15:33 Blood Pressure 156/85 H 06/07/22 15:33 Pulse Oximetry 96 06/07/22 15:33 Oxygen Delivery Method 06/07/22 15:33 Temperature 98.3 F 06/07/22 15:33 Pulse Rate 86 06/07/22 15:33 Respiratory Rate 20 06/07/22 15:33 Blood Pressure 156/85 H 06/07/22 15:33 Pulse Oximetry 96 06/07/22 15:33 Oxygen Delivery Method 06/07/22 15:33 Medical Decision Making [facility] Narrative Medical decision making narrative: This patient comes in with pain radiating down the posterior aspect of his left leg and toward his knee. He states that it does not extend beyond his knee. He does not report obvious back pain and did not have any particular injury event or strenuous activity. He has had joint aches and pains and does have evidence of degenerative disease and has had a trochanteric bursitis in this left hip in the past. There was no indication to do x-ray or CT imaging today. He may need an MRI if not improving. He has been taking [id number] medicines without any relief. The patient did receive an intramuscular injection of morphine 10 mg and after an hour so he states that it did not seem to help him much at all. He then did receive another intramuscular injection of Dilaudid 1 mg. He states that he still feels uncomfortable. An ultrasound of the left lower extremity was negative for venous thrombus. It seems that his symptoms are most likely related to some nerve impingement perhaps a sciatica or lumbar radiculopathy. His straight leg raise was not obviously positive. This patient received prescriptions for Medrol Dosepak, Flexeril, Toradol, and [place]. He understands that we will not repeat narcotic medications out of the ER. I advised him to follow-up with orthopedic clinic here or consider a spine clinic in the [facility]. Imaging Data XR L Hip: Radiologist's impression: No sign of acute injury. US Venous Duplex: Radiologist's impression: No evidence of deep venous thrombosis in the left lower extremity. Discharge Plan Discharge Clinical Impression: Sciatica Patient Disposition: Home w/ Parent or Adult Condition: Stable Additional Instructions: Take medication as needed and indicated. Follow up with appointment in orthopedic clinic by calling [phone]. Return if worsening symptoms happen. Prescriptions: New cyclobenzaprine 10 mg tablet 10 mg PO TID Qty: 15 0RF hydrocodone-acetaminophen 5-325 mg tablet 1 tab PO Q4-6H PRN (Reason: pain) Qty: 20 0RF ketorolac 10 mg tablet 10 mg PO Q8H 5 Days Qty: 15 0RF methylprednisolone [Medrol (Dimitrios)] 4 mg tablets,dose pack See Rx Instructions .ROUTE .COMPLEX Qty: 21 0RF Rx Instructions: orally per package directions No Action multivitamin Tablet 1 tab PO QAM psyllium Powder 1 tbsp PO ONCE Rx Instructions: mix into at least 8 oz of water or juice before administering magnesium 200 mg tablet 200 mg PO QDAY Lactobacillus acidophilus Capsule 10 mg PO QDAY triamterene-hydrochlorothiazid 37.5-25 mg tablet 1 tab PO DAILY diphenhydramine-acetaminophen [Tylenol PM Extra Strength] 25-500 mg tablet 1 tab PO QHS PRN aspirin 325 mg tablet 325 mg PO QDAY cholecalciferol (vitamin D3) 50 mcg (2,000 unit) capsule 50 mcg PO QDAY potassium 99 mg tablet PO .Q day gabapentin 100 mg capsule See Rx Instructions PO QHS Qty: 60 1RF Rx Instructions: 1 tab x 1 week; increase after 1wk to 2 tabs orally every day at bedtime; metformin 500 mg tablet extended release 24 hr 500 mg PO DAILY Qty: 60 0RF amlodipine 10 mg tablet 10 mg PO DAILY Qty: 30 0RF atorvastatin 20 mg tablet See Rx Instructions .ROUTE .COMPLEX Qty: 90 2RF Dose Instruction: TAKE 1 TABLET BY MOUTH EVERY EVENING Rx Instructions: TAKE 1 TABLET BY MOUTH EVERY EVENING Follow Up/Referrals: Fatemeh Anderson DO [Primary Care Provider] - [facility] Alone Forms: [facility]
[2022-06-07] MEDS: MORPHINE 10 MG/ML inj IM (16:09)
--- NOTE | 2022-06-07 17:05 | CRLHL7_ITS ---
For Patients: As a result of the Century Cures Act, medical imaging exams and procedure reports are released immediately into your electronic medical record. You may view this report before your referring provider. If you have questions, please contact your health care provider. INDICATION: LEG/HIP PAIN LEFT LOWER EXTREMITY VENOUS DUPLEX ULTRASOUND TECHNIQUE: Duplex sonography using grayscale imaging as well as color and spectral Doppler interrogation was performed over the left lower extremity with attention to the deep venous system. FINDINGS: The left common femoral, femoral, deep femoral, popliteal, and posterior tibial veins show normal compressibility, color Doppler flow, and augmentation response. IMPRESSION: No evidence of deep venous thrombosis in the left lower extremity. WILLI MASSEY MD [employer] Dictated by: Sammy Massey MD @ 06/07/2022 18:41:05 (Electronically Signed)
[2022-06-07] MEDS: HYDROmorphone 0.5 mg/0.5 ml inj 1 MG IM (17:23)
== END 2022-06-07 19:26 | disposition home or self-care (01) ==
PROVIDERS: Emergency Provider Emergency Medicine Emergency Medical Services; PCP Family Medicine
DX: M54.32 Sciatica, left side (principal); M79.605 Pain in left leg
CPT/HCPCS: 73502; 93971; 96372; 99284; J1170; J2270

== ENCOUNTER 2022-06-20 07:01 | Outpatient (CLI) | payer MEDICARE, SELFPAY ==
--- NOTE | 2022-06-20 07:15 | MR_ITS ---
[address] [address] Phone:?[phone] Fax:?[phone] Referring Physician Information: Juve Muniz M.D. [id number] [facility] [address] Phone:?[phone] Fax:?[phone] Patient:?Raul Dickson D.O.B:?1950 Sex:?Male Phone:?[phone] [facility] MRN:?[id number] Exam Date:?06/20/2022 ? EXAM: MRI of the LEFT HIP, without contrast CLINICAL: Male, 71 years old, with lateral left hip pain. INDICATION: Evaluate for gluteus tendon tear versus other hip derangement etiology. PRIOR SURGERY: None reported. PLAIN FILMS: 01/26/2019 radiographic series of the left hip. COMPARISONS: No prior MRIs available. TECHNICAL: Using a 1.5T MR scanner: 3.0 mm?coronals: PD, T2 3.0 mm?sagittals: PD, T2 4.0 mm oblique?axials: PD 4.0 mm?axials: PDFS 5.0 mm?coronals: T1, STIR of pelvis including hips SEDATION: None. CONTRAST: None. IMPRESSION: 1. No left gluteus minimus or medius tendinopathy, tear or strain, and no trochanteric bursitis. 2. Broad-based tear, irregularity and attenuation of most of the anterior into superior labrum. 3. Mild anterosuperior femoral cam morphology with potential to predispose cam mechanism of femoroacetabular impingement (GREGORY). 4. Moderately high normal volume hip and decreased cranial acetabular anteversion at least bordering on retroversion, with potential to add a pincer mechanism component of GREGORY. 5. No demonstrable left hip full-thickness chondromalacia/osteoarthritis. 6. No bone stress injuries. 7. No myotendinous abnormalities. FINDINGS: Hip joint: Effusion: Minimal left hip joint effusion. Ganglion/paralabral cyst: None. Articular cartilage: No demonstrable full-thickness chondromalacia or premature osteoarthritis. Loose bodies: None. Labrum: There is signal alteration and deformity of the anterosuperior labrum in keeping with tear, irregularity and perhaps some attenuation (oblique axial PD series 6, images 19-12; sagittal PD series 8, images 12-16; coronal PD series 4, images 15-20). Degeneration also appears to extend into the posterosuperior labrum Proximal femur: No femoral occult fracture, bone stress injury, marrow edema or osteonecrosis. Mildly decreased sulcus and decreased femoral head-neck offset of the anterosuperior into anteroinferior femoral head-neck junction reflects femoral cam morphology with potential to predispose cam mechanism of any clinically evident femoroacetabular impingement (GREGORY). Based on oblique axial series 6, image 18 at approximately 9 o'clock anteriorly, the maximum femoral alpha angle measures approximately 61?. Acetabulum: No subchondral cysts, periacetabular ossicles or marrow edema. Version: Decreased cranial acetabular version at least borders on retroversion Coverage: Left lateral center edge (CE) angle measures approximately 36? (normal 25?-39?), midline coronal series 4, image 14. Ligamentum teres: Intact and unremarkable. Pelvis osseous structures: Sacrum: No stress/insufficiency fractures or marrow edema/pathology. Sacroiliac joints: No demonstrable sacroiliitis. Pubic rami: No stress/insufficiency fractures or marrow edema/pathology. Symphysis pubis: No ongoing osteitis pubis. AIIS: Superoinferior extent: At the level of the acetabular roof. Anterior extent: 13 mm anterior to the anterior mid-acetabular rim. Myotendinous structures: Gluteus abductors: No convincing insertional tendinopathy or tear of gluteus minimus or medius. Adductors: No demonstrable tendinopathy or strain/tear. Rectus abdominis: No demonstrable tear/strain. Pre-pubic aponeurotic complex: Intact, without evidence of common rectus abdominis-adductor longus aponeurosis or pubic plate lesion. Hamstrings: Intact semimembranosus, semitendinosus and biceps femoris tendons, without tendinopathy or tear. Flexors: Intact iliopsoas and rectus femoris, without strain/tear. External rotators: Intact, without demonstrable ischiofemoral impingement. Gluteal aponeurotic fascia and IT band: Unremarkable. Bursae: No demonstrable trochanteric, iliopsoas, or iliopectineal bursitis. Intrapelvic contents: Free fluid: No free fluid seen within the pelvis. Pelvic viscera: No discrete intrapelvic mass is identified. Lymph nodes: No pathologically enlarged lymphadenopathy. Neurovascular structures: No discrete cyst, mass or other compression upon the portions visualized of sciatic or femoral nerves. [facility] Electronically signed on 06/22/2022 9:45:00 AM by Jalil Castrejon M.D.
== END 2022-06-20 07:02 | disposition home or self-care (01) ==
LOC: MRI 07:01
PROVIDERS: PCP Family Medicine; Visit Provider Orthopaedic Surgery Sports Medicine
DX: M25.552 Pain in left hip (principal); S73.102A Unspecified sprain of left hip, initial encounter
CPT/HCPCS: 73721

== ENCOUNTER 2022-07-01 04:27 | Emergency (ER) | payer MEDICARE, SELFPAY ==
[2022-07-01 04:32] VITALS: BP 152/79; PULSE 72; RESP 18; TEMP 36; O2SAT 98; BMI 32.5
--- NOTE | 2022-07-01 04:57 | ED.GENADULT ---
HPI - General Adult General Chief complaint: Hip Injury/Pain Stated complaint: left hip is bothering him Time Seen by Provider: 07/01/22 04:39 Source: patient and family Mode of arrival: ambulatory Limitations: no limitations History of Present Illness HPI narrative: 71-year-old male, poor historian presents to the emergency department with pain in the left outer hip. This is an ongoing problem. I review notes from last month and also January. He has been seen by Orthopedics for this. He has had x-ray and CT findings and had an injection in the greater trochanter 6 months ago which was helpful. There has been no new trauma or injury. There is no numbness or tingling. Pain starts in the outer hip and radiates down to the upper calf area. He was unable to sleep due to his pain, therefore he comes to the emergency department. Interestingly, he did not try taking any Tylenol, ibuprofen, using ice or any other intervention. He states that he is out of Tylenol. When asked if he has recently been on steroids, antibiotics or other medications for this, he is unsure. He thinks he was probably given some when he was seen a month ago. Review of those records shows that he was discharged on a Medrol Dosepak and a limited supply of Vicodin. It does not look as though he is followed up with his primary care physician since that time. He reports that ortho has referred him for an MRI of his back but they are awaiting insurance approval. No fever, no systemic symptoms. Previous ortho notes and advanced imaging is reviewed and will not be repeated. Past medical history notable for hypertension, peripheral vascular disease, hypothyroidism, obstructive sleep apnea, hyperlipidemia. Surgically reports that he has had a transurethral prostate resection and also partial colectomy. Medications notable for amlodipine, aspirin, triamterene hydrochlorothiazide. He reports he is also prescribed metformin but he ran out and is no longer using. He has intolerance is to lisinopril and losartan but no true allergies. Social history reviewed from records. ROS is notable only for the musculoskeletal symptoms as described above, otherwise denies times 12 systems. Related Data Home Medications Medication Instructions Recorded Confirmed Lactobacillus acidophilus 10 mg PO QDAY 11/28/21 06/22/22 magnesium 200 mg tablet 200 mg PO QDAY 11/28/21 06/22/22 multivitamin 1 tab PO QAM 11/28/21 06/22/22 psyllium 1 tbsp PO ONCE 11/28/21 06/22/22 triamterene 37.5 1 tab PO DAILY 11/28/21 06/22/22 mg-hydrochlorothiazide 25 mg tablet aspirin 325 mg tablet 325 mg PO QDAY 01/16/22 06/22/22 cholecalciferol (vitamin D3) 50 50 mcg PO QDAY 01/16/22 06/22/22 mcg (2,000 unit) capsule diphenhydramine 25 1 tab PO QHS PRN 01/16/22 06/22/22 mg-acetaminophen 500 mg tablet (Tylenol PM Extra Strength) potassium 99 mg tablet mg PO .Q day 01/16/22 06/22/22 Previous Rx's Medication Instructions Recorded metformin 500 mg tablet,extended 500 mg PO DAILY #60 tabs 03/28/22 release 24 hr amlodipine 10 mg tablet 10 mg PO DAILY #30 tabs 03/29/22 gabapentin 100 mg capsule See Rx Instructions PO QHS #60 caps 04/23/22 atorvastatin 20 mg tablet See Rx Instructions .Route 05/02/22 .COMPLEX #90 tabs cyclobenzaprine 10 mg tablet 10 mg PO TID #15 tabs 06/07/22 ketorolac 10 mg tablet 10 mg PO Q8H 5 days #15 tabs 06/07/22 cyclobenzaprine 10 mg tablet 10 mg PO HS PRN muscle spasm at 07/01/22 bedtime #30 tabs prednisone 20 mg tablet 20 mg PO BID #10 tabs 07/01/22 Allergies Allergy/AdvReac Type Severity Reaction Status Date / Time lisinopril AdvReac Mild Cough Verified 06/22/22 08:37 losartan AdvReac Mild Cough Verified 06/22/22 08:37 [facility] Medical History History of stress test Surgical History History of colectomy History of colonoscopy History of rotator cuff surgery History of transurethral resection of prostate Family History Mother Aortic aneurysm Other Heart disease Lung cancer Social History Narrative: , spouse w/ multiple sclerosis retired from employment Smoking Status: Never smoker Do you use any of these nicotine containing products: None Second hand tobacco smoke exposure: No How often do you have a drink containing alcohol: never AUDIT-C Alcohol total score: 0 Non-prescribed substance use: denies use Little interest or pleasure in doing things: several days Feeling down, depressed, or hopeless: not at all service: No Exam Const: Vital Signs, click to edit/add: Vital Signs - 24 hr 07/01/22 04:32 07/01/22 05:09 07/01/22 06:12 Temperature 96.8 F L Pulse Rate [Left P ulse Oximeter] 72 77 60 Respiratory Rate 18 18 18 Blood Pressure [Le ft Upper Arm] 152/79 H 136/91 H 140/78 H Pulse Oximetry 98 98 95 Oxygen Delivery Me thod Room Air Room Air Room Air Documenting provider has reviewed patient's vital signs: yes Common normals: no apparent distress General appearance: cooperative Other: Poor historian. HENMT: Common normals: normocephalic Head and scalp: normocephalic Mouth: oral and palatal mucosa normal Eye: General eye: normal appearance of both eyes Other: Normal gaze and visual tracking Resp: Common normals: normal respiratory effort and clear to auscultation bilaterally Effort & inspection: able to speak in complete sentences Auscultation: clear to auscultation bilaterally Cardio: Common normals: regular rate, regular rhythm, S1 normal heart sound, S2 normal heart sound and no murmurs Rate: regular rate Rhythm: regular rhythm Heart sounds: S1 normal and S2 normal Back & Pelvis: Other: No point bony tenderness to the thoracolumbar spine. Mild tenderness to the paraspinal muscles. Poor posture overall. No obvious deformity. Extremity: Other: Left hip has some resistance to both internal and external rotation. Greatest area of pain is with direct palpation over the left greater trochanter. No redness, heat or skin changes. Neuro: Gait (neuro): normal gait Motor exam: no movement abnormalities noted Psych: Attitude: calm Insight: fair Judgement: fair Skin: Common normals: no rashes or lesions noted General skin exam: no rashes or lesions noted Course Vital Signs Vital signs: Initial Vital Signs Temperature 96.8 F L 07/01/22 04:32 Temperature Source Temporal Artery Scan 07/01/22 04:32 Pulse Rate 72 07/01/22 04:32 Respiratory Rate 18 07/01/22 04:32 Blood Pressure 152/79 H 07/01/22 04:32 Blood Pressure Mean 103 07/01/22 04:32 Pulse Oximetry 98 07/01/22 04:32 Oxygen Delivery Method 07/01/22 04:32 Vital Signs Temperature 96.8 F L 07/01/22 04:32 Pulse Rate 72 07/01/22 04:32 Respiratory Rate 18 07/01/22 04:32 Blood Pressure 152/79 H 07/01/22 04:32 Pulse Oximetry 98 07/01/22 04:32 Oxygen Delivery Method 07/01/22 04:32 Temperature 96.8 F L 07/01/22 04:32 Pulse Rate 60 07/01/22 06:12 Respiratory Rate 18 07/01/22 06:12 Blood Pressure 140/78 H 07/01/22 06:12 Pulse Oximetry 95 07/01/22 06:12 Oxygen Delivery Method 07/01/22 06:12 Medical Decision Making MDM Narrative Medical decision making narrative: Documented history of greater trochanteric bursitis with no new trauma, injury or change in pain features. Patient has not adequately tried appropriate home interventions. Will start with 1000 mg of Tylenol, 10 mg of oxycodone, 25 of Vistaril and 40 of prednisone, reassess in 1-2 hours. Anticipate home discharge on Flexeril, limited supply of Vicodin and prednisone. Update: Pain quite a bit improved on the interventions given. Discussed plan of care. Patient already has a follow-up appointment on Saturday to discuss with his primary care provider. Next dose of prednisone will be this evening. Vicodin given through [facility]. Flexeril meant for bedtime, stressed the importance of Tylenol, ibuprofen and other first-line interventions. Call primary care provider if not improving as expected Discharge Plan Discharge Clinical Impression: Greater trochanteric bursitis of left hip Patient Disposition: Home w/ Parent or Adult Condition: Improved Instructions: Hip Bursitis (ED) Additional Instructions: I do not see any new diagnoses as the reason for your pain today. I still think this is related to inflammation on the outside part of the hip. Please update your primary care provider or Dr. Vinny shaw if you are not noticing significant improvement from the steroids within a couple of days. I would like for you to make a follow-up appointment with your primary care doctor to discuss a plan for medications for you to have on hand when you get flares to avoid coming to the emergency department. For pain, take Tylenol 1000 mg every 6 hours as needed. You may also use NSAIDs, like Aleve or ibuprofen. If he use ibuprofen, the doses 600 mg every 6 hours. Aleve would be 2 tablets every 8 hours. I will also give you a supply of Flexeril which is a muscle relaxant. You can use this at bedtime if the pain prevents you from sleeping. The medication will also make you sleepy. I have given you a very limited supply of Vicodin. This is a narcotic pain medication, use it sparingly. You will not be given additional refills. It does contain Tylenol so take this into account when you are dosing your self at a max of 4000 mg once daily of Tylenol. The most important medication is restarting a steroid. I have given you prednisone 20 mg twice daily for 5 days. Would like for you to take this 1st thing in the morning and in the early evening. If you take it too close to bedtime, it will keep you up at night. Pick this up at your pharmacy today and take your next dose tonight no sooner than 4 hours before bedtime, 5-6 is better. Update your primary care provider if not improving. Activity Level: Activity as Tolerated Discharge Diet: Diabetic Prescriptions: New prednisone 20 mg tablet 20 mg PO BID Qty: 10 0RF Rx Instructions: Next dose 07/01/2022 evening cyclobenzaprine 10 mg tablet 10 mg PO HS PRN (Reason: muscle spasm at bedtime) Qty: 30 0RF No Action multivitamin Tablet 1 tab PO QAM psyllium Powder 1 tbsp PO ONCE Rx Instructions: mix into at least 8 oz of water or juice before administering magnesium 200 mg tablet 200 mg PO QDAY Lactobacillus acidophilus Capsule 10 mg PO QDAY triamterene-hydrochlorothiazid 37.5-25 mg tablet 1 tab PO DAILY diphenhydramine-acetaminophen [Tylenol PM Extra Strength] 25-500 mg tablet 1 tab PO QHS PRN aspirin 325 mg tablet 325 mg PO QDAY cholecalciferol (vitamin D3) 50 mcg (2,000 unit) capsule 50 mcg PO QDAY potassium 99 mg tablet PO .Q day gabapentin 100 mg capsule See Rx Instructions PO QHS Qty: 60 1RF Rx Instructions: 1 tab x 1 week; increase after 1wk to 2 tabs orally every day at bedtime; cyclobenzaprine 10 mg tablet 10 mg PO TID Qty: 15 0RF ketorolac 10 mg tablet 10 mg PO Q8H 5 Days Qty: 15 0RF metformin 500 mg tablet extended release 24 hr 500 mg PO DAILY Qty: 60 0RF amlodipine 10 mg tablet 10 mg PO DAILY Qty: 30 0RF atorvastatin 20 mg tablet See Rx Instructions .ROUTE .COMPLEX Qty: 90 2RF Dose Instruction: TAKE 1 TABLET BY MOUTH EVERY EVENING Rx Instructions: TAKE 1 TABLET BY MOUTH EVERY EVENING Follow Up/Referrals: Fatemeh Anderson DO [Staff Physician] - Stand Alone Forms: [facility] Info Instructions
[2022-07-01] MEDS: OXYCODONE 5 MG TABLET 10 MG PO (05:06)
[2022-07-01] MEDS: ACETAMINOPHEN 500 MG TABLET 1000 MG PO (05:07)
[2022-07-01] MEDS: predniSONE 10 MG TABLET 40 MG PO (05:07)
[2022-07-01] MEDS: hydrOXYzine pamoate 25 MG CAPSULE PO (05:07)
[2022-07-01 05:09] VITALS: BP 136/91; PULSE 77; RESP 18; O2SAT 98
[2022-07-01 06:12] VITALS: BP 140/78; PULSE 60; RESP 18; O2SAT 95
== END 2022-07-01 06:31 | disposition home or self-care (01) ==
PROVIDERS: Emergency Provider Family Medicine; PCP Family Medicine
DX: M70.62 Trochanteric bursitis, left hip (principal)
CPT/HCPCS: 99282; 99283; A9270; J7512

== ENCOUNTER 2022-07-03 08:07 | Outpatient (CLI) | payer MEDICARE, SELFPAY | END 2022-07-03 08:08 | disposition home or self-care (01) | LOC: LKVREF 08:08 | PROVIDERS: PCP Family Medicine; Visit Provider Family Medicine | DX: Z01.818 Encounter for other preprocedural examination (principal) | CPT/HCPCS: 80053 ==

== ENCOUNTER 2022-07-11 07:56 | Outpatient (CLI) | payer MEDICARE, SELFPAY ==
--- NOTE | 2022-07-11 08:15 | CRLHL7_ITS ---
For Patients: As a result of the Century Cures Act, medical imaging exams and procedure reports are released immediately into your electronic medical record. You may view this report before your referring provider. If you have questions, please contact your health care provider. Indication: Increased left-sided radiculopathy. Technique: Noncontrast sagittal and axial T1, T2, and sagittal STIR sequences are provided. Comparison: Lumbar radiographs 06/12/2022 Findings: Mild levocurvature with apex L3 on this supine nonweightbearing study. No fractures. No prevertebral or paraspinal edema. No aggressive osseous lesions. There are 5 lumbar-type vertebral bodies. Slight grade 1 anterolisthesis at L4-5. Modic type 2 degenerative changes at T12-L1 through L3-4. Anterior osteophytic spurring at multiple levels. The conus medullaris is normal in signal and location. T12-L1: No significant spinal canal stenosis or neural foramen narrowing. L1-2: Mild annular bulge. No significant spinal canal stenosis or neural foramen narrowing. L2-3: Disc desiccation. Circumferential disc bulge and facet arthrosis. Mild spinal canal stenosis. No neural foramen narrowing L3-4: Circumferential disc bulge. Moderate facet arthrosis. Mild spinal canal and bilateral neural foramen narrowing. L4-5: Disc bulge with superimposed left intraforaminal disc herniation with cephalad migration measuring 1.4 cm transversely (series 05/04). Advanced bilateral facet arthrosis and ligamentum flavum buckling. Left facet joint effusion. Moderate to severe spinal canal stenosis. Moderate left neural foramen narrowing with impingement of the left L4 nerve. No right neural foramen narrowing. L5-S1: Disc desiccation. Advanced facet arthrosis. Mild to moderate right neural foramen narrowing. No left neural foramen narrowing. Impression: 1. No acute osseous abnormality. Slight grade 1 anterolisthesis L4-5. 2. At L4-5 there is a left intraforaminal disc herniation with cephalad migration, disc bulge, advanced facet arthrosis. Moderate-severe spinal canal stenosis and moderate left neural foramen narrowing with impingement of the left L4 nerve. 3. At L5-S1 there is mild to moderate right neural foramen narrowing. 4. Facet arthropathy is most prominent at L3-4 through L5-S1. Dictated by Charles Ybarra MD @ 07/11/2022 11:28:57 AM (Electronically Signed)
== END 2022-07-11 07:57 | disposition home or self-care (01) ==
PROVIDERS: PCP Family Medicine; Visit Provider Family Medicine
DX: M54.16 Radiculopathy, lumbar region (principal); M51.26 Other intervertebral disc displacement, lumbar region; M51.27 Other intervertebral disc displacement, lumbosacral region
CPT/HCPCS: 72148

== ENCOUNTER 2022-09-28 08:19 | Outpatient (CLI) | payer MEDICARE, SELFPAY | END 2022-09-28 08:20 | disposition home or self-care (01) | LOC: NFLDREF 10-01 08:41 | PROVIDERS: PCP Family Medicine; Referring Provider Family Medicine; Visit Provider Family Medicine | DX: E11.9 Type 2 diabetes mellitus without complications (principal); E87.6 Hypokalemia; I10 Essential (primary) hypertension | CPT/HCPCS: 80053; 80061; 82043; 82570 ==

== ENCOUNTER 2022-10-09 10:45 | Outpatient (CLI) | payer MEDICARE, SELFPAY | END 2022-10-09 10:46 | disposition home or self-care (01) | LOC: INJ CL 10:46 | PROVIDERS: PCP Family Medicine; Visit Provider Family Medicine | DX: M54.16 Radiculopathy, lumbar region (principal); M51.36 Other intervertebral disc degeneration, lumbar region | CPT/HCPCS: 62323; J0702; Q9966 ==

== ENCOUNTER 2022-11-13 07:35 | Outpatient (CLI) | payer MEDICARE, SELFPAY | END 2022-11-13 07:36 | disposition home or self-care (01) | LOC: INJ CL 07:36 | PROVIDERS: PCP Family Medicine; Visit Provider Family Medicine | DX: M54.16 Radiculopathy, lumbar region (principal); M48.062 Spinal stenosis, lumbar region with neurogenic claudication; M51.36 Other intervertebral disc degeneration, lumbar region | CPT/HCPCS: 62323; J0702; Q9966 ==

== ENCOUNTER 2022-12-30 08:48 | Outpatient (CLI) | payer MEDICARE, SELFPAY | END 2022-12-30 08:49 | disposition home or self-care (01) | PROVIDERS: PCP Family Medicine; Referring Provider Family Medicine; Visit Provider Registered Nurse | DX: R30.0 Dysuria (principal); N39.0 Urinary tract infection, site not specified; N30.00 Acute cystitis without hematuria | CPT/HCPCS: 87086 ==

== ENCOUNTER 2023-01-01 14:02 | Outpatient (CLI) | payer MEDICARE, SELFPAY ==
--- NOTE | 2023-01-01 14:30 | CRLHL7_ITS ---
For Patients: As a result of the Century Cures Act, medical imaging exams and procedure reports are released immediately into your electronic medical record. You may view this report before your referring provider. If you have questions, please contact your health care provider. Indication: Lumbar stenosis with neurogenic claudication Technique: Multiplanar, multisequence, MRI of the lumbar spine, obtained without contrast. Comparison: MRI lumbar spine 07/11/2022 Findings: Preserved lordosis. Trace retrolisthesis at L2-3 and L3-4. No acute osseus abnormality. Vertebral body heights are maintained. Unremarkable bone marrow signal. The conus medullaris terminates at L1-2. No suspicious findings in the paraspinal soft tissues. Mild degenerative changes at the included SI joints. T12-L1: No significant neural foraminal or spinal canal stenosis. L1-L2: Mild diffuse disc bulge. No significant neural foraminal or spinal canal stenosis. L2-L3: Mild diffuse disc bulge, mild facet arthropathy. No right, mild left neural foraminal narrowing. Mild spinal canal narrowing. L3-L4: Diffuse disc bulge, mild facet arthropathy. Mild left, moderate right neural foraminal stenosis. Mild spinal canal narrowing. L4-L5: Diffuse disc bulge, moderate facet arthropathy with medially directed right facet joint synovial cyst. Moderate bilateral neural foraminal stenosis. Moderately severe spinal canal stenosis. L5-S1: Shallow right foraminal disc protrusion, advanced facet arthropathy. No left, mild-moderate right neural foraminal narrowing. No spinal canal stenosis. Impression: 1. Lumbar spondylosis, mildly progressed relative to 07/11/2022. 2. At L4-5, greater degree of moderately severe spinal canal stenosis secondary to interval enlargement of a medially directed right facet joint synovial cyst. 3. At L3-4, moderate right neural foraminal stenosis. 4. Scattered milder neural foraminal and mild spinal canal narrowing elsewhere as detailed. Dictated by Kanchan Contreras MD @ 01/01/2023 4:45:23 PM (Electronically Signed)
== END 2023-01-01 14:03 | disposition home or self-care (01) ==
LOC: MRI 14:03
PROVIDERS: PCP Family Medicine; Visit Provider Orthopaedic Surgery Orthopaedic Surgery of the Spine
DX: M48.062 Spinal stenosis, lumbar region with neurogenic claudication (principal); M47.896 Other spondylosis, lumbar region
CPT/HCPCS: 72148

== ENCOUNTER 2023-01-10 08:00 | Outpatient (RCR) | payer MEDICARE, SELFPAY ==
--- NOTE | 2022-03-21 12:16 | PT.OPE ---
PT [place] Outpatient Eval PT [facility] Outpatient Eval Start: 03/14/22 10:33 Freq: Status: Active Protocol: Document 03/21/22 08:02 LSL (Rec: 03/21/22 08:30 LSL [id number]) E-signed By Swapna Burgess PT Physical Therapy Outpatient Evaluation Insurance Information Recert Due Date 06/12/22 Insurance Name Medicare B,[employer] Insurance Information/Comments [employer] Medical Diagnosis L RCT, L AC joint OA Treating Diagnosis pain, weakness Referring MD Muniz Subjective Subjective Began having L shoulder pain 5 -6 years ago and recently has worsened. He is R hand dominant. This one has also been more irritated recently maybe due to cane use. He really has pain at night especially when he stretches his arm overhead. Makes it difficult to sleep. Don't seem to have a problem lifting with it . Difficulty and painful reaching. Constant ache, increases with use and is worst with lowering. PMH: R RCR 15-20 y/a Pain Comments 2/10 best, 7/10 worst Date of Last Physician Visit 03/13/22 Current Work Status Retired Precautions Treatment Precautions/Contraindications stenosis, L hip pain Therapy Limitations/Systems Review Not Limited Objective Range of Motion AROM R L flexion 150 138 abd 135 117 IR (HBB) T12 L2 ER 79 54 Strength Elbow - R bicep 5/5, tricep 4+ /5, L bicep 5/5, tricep 5-/5 Shoulder - R IR 5/5, ER 4/5, deltoid 4+/5, hor abduction and adduction 5/5, supraspinatus 4+/5, L IR 4+/5, ER 3-/5, deltoid 4+/5, hor abduction 4+/5, hor adduction 3-/5, supraspinatus 3/5 Palpation subscap tight and tender, pec tender Posture L shoulder - GH joint sits more posteriorly in joint, atrophy of the posterior cuff evident vs opposite shoulder Assessment Assessment/Impression Pt. is a 71 y/o male who presents with L shoulder pain and severe weakness of the infraspinatus and moderate weakness of the supraspinatus conducive with partial or greater rupture of these muscles. This limits his strength and ROM and actually has altered the position of how the GH joint is sitting compared to his R side. He will benefit from PT to improve his strength and ROM, but may require further intervention, given his need to use a cane, his R shoulder getting more sore since using the can and his B leg symptoms that appear related to lumbar stenosis. Primary Functional Limitations lifting, reaching, sleeping Plan of Care Rehabilitation Potential Fair Rehabilitation Potential Comments He has multiple different body parts that are failing orthopedically and it is likely he has a significant RC tear. Physical Therapy Goals SHORT TERM GOALS: (2-3 weeks) 1. Pt. able to perform shoulder ER with exercise band to demonstrate increased strength. 2. Pt. able to sleep with pain less than 3/10 by educating pt. in positions that should decrease stress to his shoulder and LB. RETIREMENT GOALS: (4+ weeks) 1. Pt. to have 3+/5 or greater L supraspinatus and infraspinatus strength to assist in lifting arm overhead . 3. Pt. able to lift items 5 lbs or less out of fridge/ cabinet with his L arm with pain less than 3/10. Coordination/Communication With Referral Source Treatment Plan/Direct Interventions Ice/Cold/Vasopneumatic,Joint Mobilization,Manual Therapy, Neuromuscular Re-ed,Self-Care/ Home Management,Therapeutic Activities Frequency/Duration 2x/week 6 weeks Patient Will Be Discharged From Therapy Completion of LTG(s),Skills Plateau,Independent w/HEP, Independently Progressing Evaluation Billing Untimed Code Treatment Minutes 25 Complexity Low Certification Information Physician Comment/Change : Physician NPI Number #
--- NOTE | 2022-08-30 11:25 | PT.OP2DDN ---
[facility] Daily Note PT [facility] Daily Note Start: 03/21/22 07:59 Freq: Status: Active Protocol: Document 08/30/22 08:03 LSL (Rec: 08/30/22 09:00 LSL [id number]) E-signed By Swapna Burgess, PT PT [facility] 2nd Diagnosis Daily Note Visit Information Note Type Daily Note,Re-Evaluation Visit Number 1 Running Total Visit Number 19 Insurance Authorized Visits TBD Physician Authorized Visits eval & treat Insurance Information Insurance Name Medicare B,Blue Cross/Blue Shield Insurance Information/Comments Blue PPO Medical Diagnosis Massive L RCR Treating Diagnosis pain, weakness, impaired ROM Referring MD Flavio Subjective Subjective Pt. reports his shoulder pain is pretty well managed but he gets cramps in his shoulder and lateral and anterior upper arm. Exercises to date have been AROM of the wrist and elbow and letting elbow straighten when in the shower and doing some circles with it dangling. Still sleeping in the recliner. Only needed to take 4 pain pills and used the cryocuff. Pain 3-10 today Home Exercise Home Exercise Compliance Compliant Objective Other/Pertinent Objective AROM - unable to assess per protocol, elbow extension lacking 30 PROM - flexion 130 abduction 94 IR 70 ER 20 elbow 0133 STRENGTH - shoulder deferred per protocol, wrist and elbow 5/5 Treatment Precautions/Contraindications stenosis, L hip pain, L4-5 radiculopathy Patient Instructed in Risks/Benefits Yes Therapeutic Exercise Therapeutic Exercise Minutes (minutes) 14 Therapeutic Exercise: To Restore MEDBRIDGE: [id number] Functional Status Instruction in HEP to include wrist flexion and extension, elbow pronation and supination , supine shoulder extension and review of proper Codman's pendulum exercises with copy given to pt. Additionally performed multiplanar PROM and PROM to elbow Manual Therapy Techniques Manual Therapy Minutes (minutes) 8 Manual Therapy Techniques inferior, anterior and posterior glides grade 1-2 Self Care Management Training Self Care Management Training informed patient he may need to take his pain medication prior to appointments if we are not making adequate gains Treatment Minutes Timed Code Treatment Minutes 22 Total Treatment Time 22 Billing Units Therapeutic Exercise Units 1 Re-Evaluation Units 1 Assessment/Impression Assessment/Impression Pt. is a 72 y/o male who presents 5 weeks s/p L massive RCR on more restrictive protocol with multiple other orthopedic and health issues occurring concomitantly. Treatment will be initial focused on improving his elbow and shoulder ROM with AROM beginning a 10 weeks post-op and eventually progressing to strengthening. Plan of Care Physical Therapy Goals SHORT TERM GOALS: (3 weeks) 1. Pt. to have improved passive ER to 40 degrees. 2. Pt. able to achieve full elbow extension in neutral and supinated with pain less than 2/10. 3. Pt. able to achieve passive overhead motion of 140. JAIL GOALS: (4 weeks 8 weeks) 1. Pt. able to start AROM. 2. Pt. to have 90+ degrees of shoulder flexion and abduction . 3. Pt. able to reach behind his back to tuck in his shirt. 4. Pt. able to reach overhead for self grooming cares. 5. Pt. to have 70+ degrees ER. Daily Plan of Care Continue per POC Daily Plan of Care Comments Ongoing POC to consist ANDREW ha re-ed, manual therapy, modalities Recertification Information Initial Certification Date 03/21/22 Most Recent Visit 08/30/22 Recertification Start Date 08/30/22 Recertification Due Date 11/26/22 Reasons to Continue Skilled Therapy patient has had a recent surgery on his shoulder and has impaired ROM, weakness and functional use of his L arm Rehabilitation Potential Good Continued Plan of Care and Interventions ANDREW ha re-ed, manual therapy, modalities prn Provider Signature Shows Agreement With POC & Medical Necessity Physician Comment/Change Comment or Changes Physician NPI Number #
== END 2023-01-16 10:32 | disposition home or self-care (01) ==
PROVIDERS: PCP Family Medicine; Visit Provider Orthopaedic Surgery Sports Medicine
DX: M75.102 Unspecified rotator cuff tear or rupture of left shoulder, not specified as traumatic (principal); M19.012 Primary osteoarthritis, left shoulder; Z51.89 Encounter for other specified aftercare
CPT/HCPCS: 97012; 97032; 97035; 97110; 97112; 97140; 97161; 97162; 97164; 97530

== ENCOUNTER 2023-06-17 11:30 | Outpatient (CLI) | payer MEDICARE, SELFPAY | END 2023-06-17 11:31 | disposition home or self-care (01) | LOC: NFLDUCREF 11:31 | PROVIDERS: PCP Family Medicine; Visit Provider Registered Nurse | DX: R31.9 Hematuria, unspecified (principal) | CPT/HCPCS: 87086; 87186 ==

== ENCOUNTER 2023-07-06 09:54 | Outpatient (CLI) | payer MEDICARE, SELFPAY | END 2023-07-06 09:55 | disposition home or self-care (01) | LOC: NFLDREF 07-08 09:39 | PROVIDERS: PCP Family Medicine; Referring Provider Family Medicine; Visit Provider Registered Nurse | DX: N39.0 Urinary tract infection, site not specified (principal) | CPT/HCPCS: 87086; 87186 ==

== ENCOUNTER 2023-09-03 08:00 | Outpatient (RCR) | payer MEDICARE, SELFPAY | END 2023-10-15 13:41 | disposition home or self-care (01) | PROVIDERS: PCP Family Medicine; Visit Provider Orthopaedic Surgery Orthopaedic Surgery of the Spine | DX: M43.16 Spondylolisthesis, lumbar region (principal); M48.062 Spinal stenosis, lumbar region with neurogenic claudication; Z51.89 Encounter for other specified aftercare | CPT/HCPCS: 97110; 97112; 97116; 97140; 97162 ==

== ENCOUNTER 2023-09-04 08:04 | Outpatient (CLI) | payer MEDICARE, SELFPAY ==
--- OUTSIDE RECORDS SUMMARY | 2023-09-24 10:30 | XMS_ITS | Referral Summary ---
Author Organization [facility] Address [address] [place] [id number] Care Team Providers Care Delivery Table Feeder Name Role Phone Clinic, [facility] Primary Care Provider Allergies No known active allergies Medications Medication Sig Dispensed Refills Start Date End Date Status multivitamin, therapeutic (THERA-VIT) TABS Take 1 tablet by mouth daily Active Probiotic Product (PROBIOTIC DAILY PO) Take 1 tablet by mouth every evening Active atorvastatin (LIPITOR) 20 MG tablet Take 20 mg by mouth every evening Active magnesium oxide (MAG-OX) 400 MG tablet Take 400 mg by mouth every evening Active amLODIPine (NORVASC) 10 MG tablet Take 10 mg by mouth daily Active acetaminophen (TYLENOL) 325 MG tabletIndications: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 (H) Take 2 tablets (650 mg) by mouth every 4 hours as needed for mild pain or fever 100 tablet 03/11/2018 Active aspirin (ASA) 325 MG EC tabletIndications: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 (H) Take 1 tablet (325 mg) by mouth daily 30 tablet 03/12/2018 Active hydrochlorothiazide (MICROZIDE) 12.5 MG capsuleIndications:Ce rebrovascular accident (CVA) due to bilateral embolism of carotid arteries (H),Benign essential hypertension Take 1 capsule (12.5 mg) by mouth daily 30 capsule 03/11/2018 Active Active Problems Problem Noted Date Diagnosed Date HTN (hypertension) 05/06/2018 Mixed hyperlipidemia 05/06/2018 CARLOS (obstructive sleep apnea) 05/06/2018 Osteoarthritis of shoulder region 05/06/2018 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 Stroke (cerebrum) 03/02/2018 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 Immunizations Name Administration Dates Next Due Influenza (High Dose) 3 valent vaccine 8,01/09/2017,01/02/2016 Social History Tobacco Use Types Packs/Day Years Used Date Smoking Tobacco: Never Smokeless Tobacco: Never Tobacco Cessation:Counseling Given: Yes Alcohol Use Standard Drinks/Week Comments No 0 (1 standard drink = 0.6 oz pur e alcohol) Sex and Gender Information Value Date Recorded Sex Assigned at Not on file Gender Identity Not on file Sexual Orientation Not on file Last Filed Vital Signs Vital Sign Reading Time Taken Comments Blood Pressure 148/78 05/08/2018 12:44 PM [employer] Pulse 62 05/08/2018 12:44 PM [employer] Temperature 36.7 ??C (98.1 ??F) 03/12/2018 8:26 AM CS T Respiratory Rate 16 03/12/2018 8:26 AM [employer] Oxygen Saturation 93% 03/12/2018 8:26 AM [employer] Inhaled Oxygen Concentration - - Weight 112.9 kg (249 lb) 05/08/2018 12:44 PM [employer] Height 175.3 cm (5' 9) 03/08/2018 12:20 PM [employer] Body Mass Index 36.77 03/08/2018 12:20 PM [employer] Plan of Treatment Not on file Advance Directives For more information, please contact: [phone] * Full Code (Latest Code Status on File) Date Activated Date Inactivated Comments 03/11/2018 5:10 PM 03/12/2018 12:30 PM Question Answer Comments Code status determined by: Discussion with patie nt/legal decision maker * Full Code Date Activated Date Inactivated Comments 03/11/2018 4:51 PM 03/11/2018 5:10 PM Question Answer Comments Code status determined by: Discussion with patie nt/legal decision maker * Full Code Date Activated Date Inactivated Comments 03/08/2018 10:13 AM 03/11/2018 4:51 PM Question Answer Comments Code status determined by: Discussion with patie nt/legal decision maker * Full Code Date Activated Date Inactivated Comments 03/02/2018 10:41 PM 03/08/2018 10:13 AM Question Answer Comments Code status determined by: Discussion with patie nt/legal decision maker * Full Code Date Activated Date Inactivated Comments 06/01/2016 4:54 AM 06/05/2016 5:47 PM Care Teams Delivery Table Feeder Relationship Specialty Start Date End Date [facility], [address] [address] PCP - General 03/02/18
--- OUTSIDE RECORDS SUMMARY | 2023-09-24 10:30 | XMS_ITS | Clinical Summary ---
Author Organization [facility] Address [place], [place] [address] Care Team Providers Care Service Planner Name Role Phone Kevin Rogers MD Primary Care Provider [phone] [facility] Unavailable [phone] Allergies Active Allergy Reactions Criticality Noted Date Comments Lisinopril Cough 01/29/2023 Losartan Cough 01/29/2023 Medications Medication Sig Dispensed Refills Start Date End Date Status psyllium husk (MetamuciL) 3.4 gram/5.4 gram powd Mix 1 Dose in liquid then take by mouth once daily. Active atorvastatin (LIPITOR) 20 mg tablet Take 20 mg by mouth once daily. Active cyclobenzaprine (FLEXERIL) 10 mg tabletIndications:mus jennifer spasm Take 10 mg by mouth two times daily. Active metFORMIN (GLUCOPHAGE XR) 500 mg Extended-Release tablet Take 500 mg by mouth once daily. Active potassium chloride (K-TAB) 20 mEq extended-release tablet Take 20 mEq by mouth once daily. Active triamterene-hydrochlo rothiazide, 37.5-25 mg, (MAXZIDE-25) 37.5-25 mg tabletIndications:hyp ertension Take 1 Tablet by mouth once daily. Active oxyCODONE (ROXICODONE) 5 mg immediate release tabletIndications:Spo ndylolisthesis of lumbar region Take 1-2 Tablets (5-10 mg) by mouth every 4 hours if needed for Pain (First choice for severe pain.). 20 Tablet 02/01/2023 Active sennosides-docusate (SENOKOT S) (8.6-50 mg) tabletIndications:Spo ndylolisthesis of lumbar region Take 1-4 Tablets by mouth two times daily. 20 Tablet 02/01/2023 Active amLODIPine (NORVASC) 10 mg tabletIndications:Hyp ertension Take 0.5 Tablets (5 mg) by mouth once daily. 02/03/2023 Active Active Problems Problem Noted Date Diagnosed Date CARLOS (obstructive sleep apnea) 02/01/2023 Postoperative hypoxia 02/01/2023 Spinal stenosis, lumbar mateo on, with neurogenic claudication 01/31/2023 Spondylolisthesis of lumbar region 01/31/2023 HTN (hypertension) 12/11/2019 Morbid obesity due to excess calories 12/11/2019 Mixed hyperlipidemia 12/11/2019 Social History Tobacco Use Types Packs/Day Years Used Date Smoking Tobacco: Never Smokeless Tobacco: Never Alcohol Use Standard Drinks/Week Comments No 0 (1 standard drink = 0.6 oz pur e alcohol) very very rare Social Connections Answer Date Recorded Frequency of Communication with Friends and Fami ly Not on file 10/09/2022 Financial Resource Strain Answer Date R ecorded Difficulty of Paying Living Expenses Not on file 04/15/2021 Difficulty of Paying Living Expenses Not on file 04/15/2021 Sex and Gender Information Value Date Recorded Sex Assigned at Not on file Gender Identity Not on file Sexual Orientation Not on file Obstetrics History Last Filed Vital Signs Vital Sign Reading Time Taken Comments Blood Pressure 105/52 02/03/2023 8:11 AM CDT Pulse 80 02/03/2023 8:11 AM CDT Temperature 37.6 ??C (99.6 ??F) 02/03/2023 8:11 AM CD T Respiratory Rate 16 02/03/2023 8:11 AM CDT Oxygen Saturation 91% 02/03/2023 8:11 AM CDT Inhaled Oxygen Concentration - - Weight 106.6 kg (235 lb) 01/31/2023 11:51 AM CDT Height 175.3 cm (5' 9) 01/31/2023 11:51 AM CDT Body Mass Index 34.7 01/31/2023 11:51 AM CDT Plan of Treatment Health Maintenance Due Date Last Done Comments Tdap 1961 Depression screening for age 12+ 1962 BMI (ht and wt on same day) for age 18+ 1968 Hepatitis C screening for ag e 18-79 1968 Tetanus booster 1970 Colonoscopy through age 75 08/30/1995 Lipids for age 45-75 08/30/1995 Zoster (shingles) series for age 50+ (1 of 2) 2000 Medicare Wellness for age 65+ 08/30/2015 Pneumococcal series for age 65+ (1 of 1 - PCV) 08/30/2015 COVID-19 vaccine series (2022- season) 2022 01/31/2022, 01/06/2021, 07/08/2020, Additional history exists Influenza for age 65+ 12/15/2023 Medical Devices Implanted Type Area Monitor Car Operator Device Identifier Shelf Expiration Date Model / Serial / Lot Anchr Crossft 5.5mm Triple - [id number] Implanted:Qty: 2 on 04/27/2011 at [facility] Right: Shoulder LINVATEC SANCHEZ SURGICAL/CONMED 07/13/2012 [id number] / / [id number] Poplok Suture [place] Implanted:Qty: 1 on 04/27/2011 at [facility] Right: Shoulder 11/13/2015 [id number] / / [id number] Description:Poplok suture an chor Bone 1-4mm 60cc Medtronic Fine Canclls Freeze Dried - [id number] Implanted:Qty: 1 on 01/31/2023 by Rajeev Gupta MD at [facility] N/A: Spine Medtronic Spine/Ortho 07/06/2026 [id number] / [id number] Description:Posterior L4-5 Set Screw Pointlock Mariner - [id number] Implanted:Qty: 4 on 01/31/2023 by Rajeev Gupta MD at [facility] N/A: Lumbar Vertebrae SeaSpine [id number] / / Screw 6.5x50mm Solid Mariner - [id number] Implanted:Qty: 2 on 01/31/2023 by Rajeev Gupta MD at [facility] N/A: Lumbar Vertebrae SeaSpine [id number] / / Screw 6.5x40mm Solid Mariner - [id number] Implanted:Qty: 1 on 01/31/2023 by Rajeev Gupta MD at [facility] N/A: Lumbar Vertebrae SeaSpine 41-6540-1 / / Screw 6.5x45mm Solid Mariner - [id number] Implanted:Qty: 1 on 01/31/2023 by Rajeev Gupta MD at [facility] N/A: Lumbar Vertebrae SeaSpine [id number] / / Screw Bone Polyaxial Mariner - [id number] Implanted:Qty: 4 on 01/31/2023 by Rajeev Gupta MD at [facility] N/A: Lumbar Vertebrae SeaSpine [id number] / / Kang 5.5x40mm [place] Precountoured - [id number] Implanted:Qty: 2 on 01/31/2023 by Rajeev Gupta MD at [facility] N/A: Lumbar Vertebrae SeaSpine [id number] / / Advance Directives * Full Code (Latest Code Status on File) Date Activated Date Inactivated Comments 01/31/2023 5:47 PM 02/03/2023 3:53 PM Question Answer Comments Code Status Discussion: Per Existing Order * Full Code Date Activated Date Inactivated Comments 04/27/2011 1:48 PM 04/27/2011 6:43 PM * Full Code Date Activated Date Inactivated Comments 04/27/2011 10:43 AM 04/27/2011 1:48 PM Care Teams Service Planner Relationship Specialty Start Date End Date Kevin Rogers MD [address] [place] [id number] PCP - General Family Practice 12/20/17 [facility] [place] [id number] [place] [address] 02/03/23
--- OUTSIDE RECORDS SUMMARY | 2023-09-24 10:30 | XMS_ITS | Clinical Summary ---
Author Organization [facility] Address [address] [place] [address] Care Team Providers Care Athletics Director Name Role Phone Po Coats MD Primary Care Provider Source Comments You are receiving this document as you are listed as the primary care provider,follow-up provider, or the patient has been referred to you for consultation.This is in compliance with the Medicare and[facility] EHR Incentive [facility],which states Providers who transition their patient to another setting of careor provider of care or refers their patient to another provider of care shouldprovide summary care record for each transition of care or referral. Lazarus Effect Allergies No known active allergies Medications Medication Sig Dispensed Refills Start Date End Date Status magnesium 250 MG Take 1 Tablet (250 mg) by mouth daily. 12/25/2013 Active Multiple Vitamins-Minerals (MULTIVITAMIN ADULT OR) Take 1 tablet by mouth daily (every 24 hours). 12/25/2013 Active aspirin EC 81 MG enteric coated tabletIndications:URMILA MACARIO SatApr 16, 2014 7:16 AM Held asa times one week in prep for colonoscopy ANDREW MELENDEZ SatJun 11, 2014 12:54 PM taking Take 1 Tablet (81 mg) by mouth daily. Indications: URMILA BANSAL SatApr 16, 2014 7:16 AM Held asa times one week in prep for colonoscopy ANDREW MELENDEZ SatJun 11, 2014 12:54 PM taking 100 tablet 3 01/08/2014 Active Probiotic Product (ACIDOPHILUS/GOAT MILK) Take by mouth. Active naproxen sodium (ANAPROX) 220 MG tablet Take 220 mg by mouth two times a day with meals. Active psyllium (KONSYL) 30.9 % powder Take by mouth daily. Active atorvastatin (LIPITOR) 20 MG tabletIndications:Hy perlipidemia, unspecified hyperlipidemia type (HRC) Take 1 Tab by mouth daily. 90 Tab 1 03/08/2017 Active triamterene-hydrochl orothiazide (MAXZIDE-25) 37.5-25 MG tablet 07/03/2018 Active amLODIPine (NORVASC) 10 MG tablet Take 1 Tablet (10 mg) by mouth daily. 10/09/2020 Active metFORMIN XR (GLUCOPHAGE XR) 500 MG 24 hour release tablet Take 1 Tablet (500 mg) by mouth daily. 11/19/2020 Active clindamycin (CLEOCIN T) 1 % external solution APPLY TO AFFECTED AREA(S) TOPICALLY NEEDED TWO TO THREE TIMES PER WEEK. 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 Overview: Setting: ASV EPAPmin 5 EPAP max 15 PSmin 0 PS max 20 Max Pressure 25 Rate auto Supplied by: [facility] PSG done: 02/08/14 AHI 106 RDI 107 Lowest O2 Sat: 79% Renew 10/04/2015 New 03/31/14 Hyperlipidemia 01/08/2014 Lumbago 09/19/2002 Overview: Pain Low Back Immunizations Name Administration Dates Next Due Flu Vac Preserv Free (3+yrs) 12/12/2011, 12/08/2010,12/21/2009, 009,02/27/2006 Influenza IIV3 (Trivalent) F luzone Highdose, 65+ Yrs (96073) 01/09/2017 Influenza IIV4 (Quadrivalent ) 0.5mL (53405) 12/28/2014,12/25/2013,01/26/2013 PCV13 (Prevnar) 05/04/2015 PPSV23 (Pneumovax) 12/12/2011,02/27/2006 TDAP (BOOSTRIX) 12/25/2013 Td 03/09/2003 Zoster (Zostavax) 09/17/2011 Family History Medical History Relation Name Comments Cancer Father lung Abdominal Aortic Aneurysm Mother Cataract Mother Glaucoma Mother Retinal Detachment Mother Early Brother 1 infant Early Brother 2 Cataract Paternal Grandfather Amblyopia/Strabismus Negative Family History Diabetes Negative Family History Macular Degeneration Negative Family History Relation Name Status Comments Father Mother Alive Brother 1 Brother 2 Paternal Grandfather Sister Alive Social History Tobacco Use Types Packs/Day Years Used Date Smoking Tobacco: Never Smokeless Tobacco: Never Alcohol Use Standard Drinks/Week Comments Yes 0 (1 standard drink = 0.6 oz pur e alcohol) rare Sex and Gender Information Value Date Recorded Sex Assigned at Not on file Gender Identity Not on file Sexual Orientation Not on file Last Filed Vital Signs Vital Sign Reading Time Taken Comments Blood Pressure 131/80 11/09/2022 8:12 AM CDT Pulse 68 11/09/2022 8:12 AM CDT Temperature 36.3 ??C (97.3 ??F) 11/07/2021 8:54 AM CD T Respiratory Rate 16 12/26/2016 11:38 AM CDT Oxygen Saturation 96% 11/09/2022 8:12 AM CDT Inhaled Oxygen Concentration - - Weight 107 kg (236 lb) 11/09/2022 8:12 AM CDT Height 175.3 cm (5' 9) 11/07/2021 8:54 AM CDT Body Mass Index 34.85 11/07/2021 8:54 AM CDT Plan of Treatment Health Maintenance Due Date Last Done Comments Medicare Annual Wellness Visit 1950 Colonoscopy 04/16/2019 04/16/2014 Pneumococcal 65+ Yrs (3 - PPSV23 or PCV20) 05/04/2020 05/04/2015, 12/12/2011, 02/27/2006 Cholesterol 09/05/2021 09/05/2016, 04/16, 03/15/2014, Additional history exists COVID-19 Vaccine ( season) 2022 01/31/2022, 01/06/2021, 07/08/2020, Additional history exists Influenza (Season Ended) 2023 022, 01/18/2021, 12/25/2019, Additional history exists DTaP/Tdap/Td (2 - Tdap) 12/26/2023 12/25/2013, 03/09 Hep C Screening (Preventive Services) Completed 09/05/2016 Zoster/Shingles Completed 10/06/2019, 04/15, 09/17/2011 HepA Aged Out No longer eligi ble based on patient's age to complete this topic HepB Aged Out No longer eligi ble based on patient's age to complete this topic Hib Aged Out No longer eligi ble based on patient's age to complete this topic IPV (Polio) Aged Out No longer eligi ble based on patient's age to complete this topic MCV4 Aged Out No longer eligi ble based on patient's age to complete this topic Procedures Procedure Name Priority Date/Time Associated Diagnosis Comments HEPATITIS C ANTIBODY, WITH REFLEX Routine 09/05/2016 10:05 AM CDT Annual physical exam LIPID PANEL & DIRECT LDL (IF NEEDED) Routine 09/05/2016 10:05 AM CDT Annual physical exam ENDOSCOPY, COLON, SCREENING/DIAGNOSTI C Routine 04/16/2014 7:08 AM HORSE FARM MANAGER Annual physical exam from Last 3 Months or Most Recently Relevant to Health Maintenance Results * Lipid Panel and Direct LDL(If Needed) (09/05/2016 10:05 AM CDT) Cholesterol 154 0 - 199 mg/dL PN SOFT Triglycerides 82 4 - 149 mg/dL PN SOFT HDL Cholesterol 49 >39 mg/dL PN SOFT Cholesterol/HDL Ratio Screen 3.1 PN SOFT LDL Calculated 89 19 - 130 mg/dL PN SOFT Hours Fasting 16.0 PN SOFT 09/05/2016 10:0 5 AM CDT 09/05/2016 10:04 AM CDT Narrative PN SOFT - 09/05/2016 10:31 AM CDT Performed at [facility] ([facility]3], [address] [place] [address] CLIA number [id number] Po Coats MD LAB_1 Performing Organization Address [facility] de Phone Number PN SOFT [address] [place] [address] * Hepatitis C Antibody, with Reflex (09/05/2016 10:05 AM CDT) Hepatitis C Antibody Nonreactive Nonreactive PN SOFT 09/05/2016 10:0 5 AM CDT 09/05/2016 12:40 PM CDT Narrative PN SOFT - 09/05/2016 3:25 PM CDT Performed at [address] [address] CLIA number [id number] Po Coats MD LAB_1 Performing Organization Address [facility] de Phone Number PN SOFT [address] [place] [address] * Endoscopy, colon, diagnostic (04/16/2014 7:08 AM HORSE FARM MANAGER) 04/16/2014 7:08 AM HORSE FARM MANAGER Narrative PN PROVATION - 04/16/2014 7:08 AM HORSE FARM MANAGER Patient Name: Raul Dickson Procedure Date: 04/16/2014 7:08 AM Date of : 1950 Admit Type: Outpatient Age: 63 Gender: Male Note Status: Finalized Attending MD: Derick Chavez MD Procedure: ? Colonoscopy Indications: ? Colon cancer screening in patient at ? increased risk: Family history of ? colon polyps Providers: ? Derick Chavez MD, Urmila Bansal RN Referring MD: ?Po Coats MD Medicines: ? Midazolam 1 mg IV, Fentanyl 50 ? micrograms IV Complications: ? No immediate complications. Estimated ? blood loss: Minimal. Procedure: ? After I obtained informed consent, ? the scope was passed under direct ? vision. Throughout the procedure, the ? patient's blood pressure, pulse, and ? oxygen saturations were monitored ? continuously. The [id number] was ? introduced through the anus and ? advanced to the cecum, identified by ? appendiceal orifice and ileocecal ? valve. The colonoscopy was performed ? without difficulty. The patient ? tolerated the procedure well. The ? quality of the bowel preparation was ? good. Findings: ? The perianal and digital rectal examinations were ? normal. ? A sessile polyp was found in the mid transverse ? colon. The polyp was 4 mm in size. The polyp was ? removed with a cold biopsy forceps. Resection and ? retrieval were complete. Estimated blood loss was ? minimal. ? A few sessile polyps were found in the rectum. The ? polyps were 2 to 3 mm in size. These polyps were ? removed with a cold biopsy forceps. Resection and ? retrieval were complete. Estimated blood loss was ? minimal. ? Multiple small-mouthed diverticula were found from ? sigmoid to ascending colon. Impression: ?- One 4 mm polyp in the mid ? transverse colon. Resected and ? retrieved. ? - A few 2 to 3 mm polyps in the ? rectum. Resected and retrieved. ? - Diverticulosis from sigmoid to ? ascending colon. Recommendation: ?- Await pathology results. ? - Repeat colonoscopy in 5 years for ? surveillance. ? - Call your siblings and tell them ? they need to start every 5 year ? colonoscopies when they turn 40. ? - High fiber diet indefinitely. Procedure Code(s): ?? --- Professional --- ? 74521, Colonoscopy, flexible, ? proximal to splenic flexure; with ? biopsy, single or multiple Diagnosis Code(s): ?? --- Professional --- ? V76.51, Special screening for ? malignant neoplasms of colon ? V18.51, Family history of colonic ? polyps ? 569.0, Anal and rectal polyp ? 211.3, Benign neoplasm of colon ? 562.10, Diverticulosis of colon ? (without mention of hemorrhage) CPT copyright 2013 [employer]. All rights reserved. The codes documented in this report are preliminary and upon whizzer review may be revised to meet current compliance requirements. Derick Chavez MD 04/16/2014 8:08 AM This document has been electronically signed. Number of Addenda: 0 Note Initiated On: 04/16/2014 7:08 AM ? Endoscopy Report Po Coats MD PN GI PROCEDURE [facility] Organization Address City/State/[facility] Co de Phone Number PN PROVATION from Last 3 Months or Most Recently Relevant to Health Maintenance Advance Directives * Full Code (Latest Code Status on File) Date Activated Date Inactivated Comments 10/17/2012 9:20 AM 10/17/2012 3:38 PM Care Teams Athletics Director Relationship Specialty [place] [id number] [place] [address] PCP - General 08/07/12
--- OUTSIDE RECORDS SUMMARY | 2023-09-24 10:30 | XMS_ITS | Clinical Summary ---
Author Organization [facility] Address [address] [place] [address] Care Team Providers Care Freelance Web Designer Name Role Phone Clinic, [facility] Primary Care Provider Allergies No known active [...] Influenza (High Dose) 3 valent vaccine 8,01/09/2017,01/02/2016 Family History Medical History Relation Comments Coronary [...] Comments Blood Pressure 148/78 05/08/2018 12:44 PM SHOT BAGGER Pulse 62 05/08/2018 12:44 PM SHOT BAGGER Temperature 36.7 ??C (98.1 ??F) 03/12/2018 8:26 AM CS T Respiratory Rate 16 03/12/2018 8:26 AM SHOT BAGGER Oxygen Saturation 93% 03/12/2018 8:26 AM SHOT BAGGER Inhaled Oxygen Concentration - - Weight 112.9 kg (249 lb) 05/08/2018 12:44 PM SHOT BAGGER Height 175.3 cm (5' 9) 03/08/2018 12:20 PM SHOT BAGGER Body Mass Index 36.77 03/08/2018 12:20 PM SHOT BAGGER Plan of Treatment Not on file Advance Directives For more information, please contact: [phone] * Full Code (Latest Code Status on [...] 4:54 AM 06/05/2016 5:47 PM Care Teams Freelance Web Designer Relationship Specialty Start Date End Date Clinic, [address] [address] PCP - General 03/02/18
== END 2023-09-04 08:05 | disposition home or self-care (01) ==
LOC: NFLDREF 09-24 10:24
PROVIDERS: PCP Family Medicine; Referring Provider Family Medicine; Visit Provider Family Medicine
DX: Z00.00 Encounter for general adult medical examination without abnormal findings (principal); D61.818 Other pancytopenia; E11.9 Type 2 diabetes mellitus without complications; E78.5 Hyperlipidemia, unspecified; I10 Essential (primary) hypertension; E03.8 Other specified hypothyroidism
CPT/HCPCS: 80053; 80061; 82043; 82570; 84443; G0103

== ENCOUNTER 2024-02-17 08:42 | Emergency (ER) | payer MEDICARE, SELFPAY ==
[2024-02-17 09:10] VITALS: BP 153/85; PULSE 87; RESP 16; TEMP 36.7; O2SAT 94; BMI 34.0
--- NOTE | 2024-02-17 10:35 | CRLHL7_ITS ---
For Patients: As a result of the Century Cures Act, medical imaging exams and procedure reports are released immediately into your electronic medical record. You may view this report before your referring provider. If you have questions, please contact your health care provider. INDICATION: Left leg pain. TECHNIQUE: Ultrasound venous duplex lower left extremity. Compression venous exam was performed using schwarz-scale, color Doppler, and spectral Doppler analysis. COMPARISON: 06/07/2022. FINDINGS: Patent left common femoral vein, femoral vein, popliteal vein, and visualized calf veins. IMPRESSION: No deep venous thrombosis identified in the left lower extremity. Dictated by Mic Eric MD @ 02/17/2024 11:59:22 AM (Electronically Signed)
--- NOTE | 2024-02-17 10:37 | ED_ITS ---
HPI - Extremity Injury (Lower) General Chief Complaint: Extremity Pain/Injury, Lower Stated Complaint: can't put weight on LT leg thinks pulled hamstring Time Seen by Provider: 02/17/24 10:27 History of Present Illness HPI Narrative: This 73-year-old male comes in with pain in his left hamstring. He states that there was a particular injury event where he strained his left hamstring when getting up. He states that the pain is become progressively worse since then and states that today he is unable to ambulate because of significant pain. He does not report any shortness of breath or chest pain. He does have a follow-up appointment with orthopedic clinic tomorrow. He did present urgent care in no imaging was done at that time as it was deemed to be a hamstring strain. He does have some concern that he may have a blood clot. Related Data Home Medications ?Medication ?Instructions ?Recorded ?Confirmed Lactobacillus acidophilus 10 mg PO QDAY 11/28/21 02/11/24 magnesium 200 mg tablet 200 mg PO QDAY 11/28/21 02/11/24 multivitamin 1 tab PO QAM 11/28/21 02/11/24 psyllium 1 tbsp PO ONCE 11/28/21 02/11/24 aspirin 325 mg tablet 325 mg PO QDAY 01/16/22 02/11/24 cholecalciferol (vitamin D3) 50 50 mcg PO QDAY 01/16/22 02/11/24 mcg (2,000 unit) capsule diphenhydramine 25 1 tab PO QHS PRN 01/16/22 02/11/24 mg-acetaminophen 500 mg tablet (Tylenol PM Extra Strength) Previous Rx's ?Medication ?Instructions ?Recorded amlodipine 5 mg tablet 5 mg PO QDAY #90 tabs 09/10/23 atorvastatin 20 mg tablet See Rx Instructions .Route 09/10/23 .COMPLEX #90 tabs metformin 500 mg tablet,extended 500 mg PO DAILY #90 tabs 09/10/23 release 24 hr potassium chloride 20 mEq 20 meq PO QDAY #90 tabs 09/10/23 tablet,extended release triamterene 37.5 2 tab PO DAILY #180 tabs 09/10/23 mg-hydrochlorothiazide 25 mg tablet clindamycin phosphate 1 % topical 1 applic topical QDAY #60 mL 11/08/23 solution cyclobenzaprine 10 mg tablet 10 mg PO TID PRN muscle spasm #90 01/07/24 tabs hydrocodone 5 mg-acetaminophen 325 1 tab PO Q4-6H PRN pain #10 tabs 02/17/24 mg tablet ketorolac 10 mg tablet 10 mg PO Q8H 5 days #15 tabs 02/17/24 Allergies Allergy/AdvReac Type Severity Reaction Status Date / Time lisinopril AdvReac Mild Cough Verified 02/17/24 09:14 losartan AdvReac Mild Cough Verified 02/17/24 09:14 Review of Systems Status of ROS: Reports: 10 or more systems reviewed and unremarkable except as noted in History and below Narrative: Constitutional: No fevers, no weight gain or loss. Eyes: No discharge. No vision changes. HENT: No congestion, no sore throat, no ear pain. Cardiovascular: No chest pain, no palpitations. Respiratory: No shortness of breath, no wheezes, no cough. Gastrointestinal: No abdominal pain, no vomiting, no diarrhea. Genitourinary: No dysuria, no hematuria. Musculoskeletal: Left hamstring pain. Unable to ambulate due to pain. Skin: No rashes, no pruritis. Neurological: No dizziness, weakness, sensory change, speech change. Endo/Heme/Allergies: No bruising or bleeding. No polydipsia. Pysch: no suicidality, no anxiety, no insomnia. All other systems reviewed and are negative. [facility] Medical History Right knee pain ?M25.561 - Pain in right knee (ICD-10) Leg edema ?R60.0 - Localized edema (ICD-10) Encounter for Medicare annual wellness exam ?Z00.00 - Encounter for general adult medical examination without abnormal findings (ICD-10) History of stress test ?Z92.89 - Personal history of other medical treatment (ICD-10) Surgical History S/P arthroscopy of left shoulder (07/25/22) ?Z98.890 - Other specified postprocedural states (ICD-10) History of transurethral resection of prostate ?Z98.890 - Other specified postprocedural states (ICD-10) ?Z90.79 - Acquired absence of other genital organ(s) (ICD-10) History of rotator cuff surgery ?Z98.890 - Other specified postprocedural states (ICD-10) History of colonoscopy ?Z98.890 - Other specified postprocedural states (ICD-10) History of colectomy ?Z90.49 - Acquired absence of other specified parts of digestive tract (ICD- 10) Family History Mother Aortic aneurysm Other Heart disease Lung cancer Social History Narrative: , spouse w/ multiple sclerosis retired from employment Smoking Status: Never smoker Do you use any of these nicotine containing products: None Second hand tobacco smoke exposure: No How often do you have a drink containing alcohol: never AUDIT-C Alcohol total score: 0 Non-prescribed substance use: denies use Little interest or pleasure in doing things: not at all Feeling down, depressed, or hopeless: not at all service: No Exam Narrative: Exam Narrative: Constitutional: Well-developed, well-nourished, no acute distress. HEENT: Normocephalic, atraumatic. Neck: Normal range of motion. Nontender. Supple. Heart: Regular. No murmurs. Normal rate. Intact distal pulses. Lungs: Clear to auscultation. No chest discomfort. No wheezes, rhonchi, or rales. Abdomen: Normal bowel sounds. Nontender. No rebound tenderness. Genitalia: Deferred. Back: No midline tenderness. Normal range of motion. Extremities: Diffuse pain through the structure of the left hamstring. There is no palpable step-off that would indicate rupture of the tendon or musculature. No sign of bruising. Skin: Intact. No rash. Warm. No erythema or pallor. Neurologic: No altered sensation. No weakness. Alert and oriented. Psychiatric: No suicidality. No anxiety or depression. No insomnia. Nursing notes and vitals signs are reviewed. Const: Vital Signs, click to edit/add: Vital Signs - 24 hr 02/17/24 09:10 Temperature 98.1 F Pulse Rate [Left P ulse Oximeter] 87 Respiratory Rate 16 Blood Pressure [Ri ght Upper Arm] 153/85 H Pulse Oximetry 94 Oxygen Delivery Me thod Room Air Course Vital Signs Vital signs: Initial Vital Signs Temperature 98.1 F 02/17/24 09:10 Temperature Source Temporal Artery Scan 02/17/24 09:10 Pulse Rate 87 02/17/24 09:10 Respiratory Rate 16 02/17/24 09:10 Blood Pressure 153/85 H 02/17/24 09:10 Blood Pressure Mean 107 H 02/17/24 09:10 Blood Pressure Position Sitting 02/17/24 09:10 Pulse Oximetry 94 02/17/24 09:10 Oxygen Delivery Method Room Air 02/17/24 09:10 Vital Signs Temperature 98.1 F 02/17/24 09:10 Pulse Rate 87 02/17/24 09:10 Respiratory Rate 16 02/17/24 09:10 Blood Pressure 153/85 H 02/17/24 09:10 Pulse Oximetry 94 02/17/24 09:10 Oxygen Delivery Method Room Air 02/17/24 09:10 Temperature 98.1 F 02/17/24 09:10 Pulse Rate 87 02/17/24 09:10 Respiratory Rate 16 02/17/24 09:10 Blood Pressure 153/85 H 02/17/24 09:10 Pulse Oximetry 94 02/17/24 09:10 Oxygen Delivery Method Room Air 02/17/24 09:10 MDM - Extremity Injury (Lower) MDM Narrative Medical decision making narrative: This patient comes in with pain in his left hamstring that seems to be related to an injury event. He was getting up and had rather sudden onset of pain but did not feel a pop or or have sudden disability. His symptoms have worsened over the past few days. An ultrasound is obtained which is negative for any deep venous thrombosis. Patient states that it is very difficult for him to walk with his current symptoms. He did receive an Aroldo wrap and was fitted for crutches. I did provide prescriptions for Toradol and a few tablets of Montour. He does have a follow-up appointment with orthopedic clinic tomorrow. Imaging Data Venous US: Radiologist's impression: No deep venous thrombosis identified in the left lower extremity. Discharge Plan Discharge Clinical Impression: Hamstring strain Additional Instructions: Use crutches as needed for ambulating. Take medicine also as needed and directed. Follow up with MD as scheduled or needed. Prescriptions: New hydrocodone-acetaminophen 5-325 mg tablet 1 tab PO Q4-6H PRN (Reason: pain) Qty: 10 0RF ketorolac 10 mg tablet 10 mg PO Q8H 5 Days Qty: 15 0RF No Action multivitamin Tablet 1 tab PO QAM psyllium Powder 1 tbsp PO ONCE Rx Instructions: mix into at least 8 oz of water or juice before administering magnesium 200 mg tablet 200 mg PO QDAY Lactobacillus acidophilus Capsule 10 mg PO QDAY metformin 500 mg tablet extended release 24 hr 500 mg PO DAILY Qty: 90 3RF triamterene-hydrochlorothiazid 37.5-25 mg tablet 2 tab PO DAILY Qty: 180 3RF potassium chloride 20 mEq tablet extended release 20 meq PO QDAY Qty: 90 3RF atorvastatin 20 mg tablet See Rx Instructions .ROUTE .COMPLEX Qty: 90 3RF Dose Instruction: TAKE 1 TABLET BY MOUTH EVERY EVENING Rx Instructions: TAKE 1 TABLET BY MOUTH EVERY EVENING amlodipine 5 mg tablet 5 mg PO QDAY Qty: 90 3RF diphenhydramine-acetaminophen [Tylenol PM Extra Strength] 25-500 mg tablet 1 tab PO QHS PRN aspirin 325 mg tablet 325 mg PO QDAY cholecalciferol (vitamin D3) 50 mcg (2,000 unit) capsule 50 mcg PO QDAY clindamycin phosphate 1 % solution 1 applic topical QDAY Qty: 60 8RF cyclobenzaprine 10 mg tablet 10 mg PO TID PRN (Reason: muscle spasm) Qty: 90 1RF Follow Up/Referrals: Murtaza Green MD [Primary Care Provider] - Stand Alone Forms: [facility] Info Instructions
--- OUTSIDE RECORDS SUMMARY | 2024-02-17 10:49 | XMS_ITS | Clinical Summary ---
Author Organization [facility] Address [place], [place] [address] Care Team Providers Care Anodiser Name Role Phone Kevin Rogers MD Primary Care Provider [phone] [facility] [address], [place] Unavailable [phone] Allergies Active Allergy Reactions Criticality Noted Date [...] 1 - PCV) 08/30/2015 COVID-19 vaccine series ( season) 2023 01/31/2022, 01/06/2021, 07/08/2020, Additional history exists Influenza for age 65+ 12/15/2023 Medical Devices Implanted Type Area Engine Emission Technician Device Identifier Shelf Expiration Date Model / Serial / Lot Anchr Crossft 5.5mm Triple - [id number] Implanted:Qty: 2 on 04/27/2011 at [facility] Right: Shoulder LINVATEC SANCHEZ SURGICAL/CONMED 07/13/2012 [id number] / / [id number] Poplok Suture [place] Implanted:Qty: 1 on 04/27/2011 at [facility] Right: Shoulder 11/13/2015 [id number] / / [id number] Description:Poplok suture an chor Bone 1-4mm 60cc Medtronic Fine Canclls Freeze Dried - [id number] Implanted:Qty: 1 on 01/31/2023 by Rajeev Gupta MD at [facility] N/A: Spine Medtronic Spine/Ortho 07/06/2026 [id number] / [id number] Description:Posterior L4-5 Set Screw Pointlock Mariner - [id number] Implanted:Qty: 4 on 01/31/2023 by Rajeev Gupta MD at [facility] N/A: Lumbar Vertebrae SeaSpine [id number] / / Screw 6.5x50mm Solid Mariner - [id number] Implanted:Qty: 2 on 01/31/2023 by Rajeev Gupta MD at [facility] N/A: Lumbar Vertebrae SeaSpine 41-0850-1 / / Screw 6.5x40mm Solid Mariner - [id number] Implanted:Qty: 1 on 01/31/2023 by Rajeev Gupta MD at [facility] N/A: Lumbar Vertebrae SeaSpine 41-6540-1 / / Screw 6.5x45mm Solid Mariner - [id number] Implanted:Qty: 1 on 01/31/2023 by Rajeev Gupta MD at [facility] N/A: Lumbar Vertebrae SeaSpine 41-6545-1 / / Screw Bone Polyaxial Mariner - [id number] Implanted:Qty: 4 on 01/31/2023 by Rajeev Gupta MD at [facility] N/A: Lumbar Vertebrae SeaSpine [id number] / / Kang 5.5x40mm [place] Precountoured - [id number] Implanted:Qty: 2 on 01/31/2023 by Rajeev Gupta MD at [facility] N/A: Lumbar Vertebrae SeaSpine [id number] / / [...] 10:43 AM 04/27/2011 1:48 PM Care Teams Anodiser Relationship Specialty Start Date End Date Kevin Rogers MD [address] [place] [address] PCP - General Family Practice 12/20/17 [facility] [address], [place] [id number] [place] [address] 02/03/23
--- OUTSIDE RECORDS SUMMARY | 2024-02-17 10:49 | XMS_ITS | Referral Summary ---
Author Organization [facility] Address [address] [place] [address]. 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) Take 1 tablet (325 mg) by mouth daily 30 tablet 8 Active hydrochlorothiazi de (MICROZIDE) 12.5 MG capsuleIndication s: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 (H),Benign essential hypertension Take 1 capsule (12.5 mg) by mouth daily 30 capsule 8 Active Active Problems Problem Noted Date Diagnosed Date HTN (hypertension) 05/06/2018 Mixed hyperlipidemia 05/06/2018 CARLOS (obstructive sleep apnea) 05/06/2018 Osteoarthritis of shoulder region 05/06/2018 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 Stroke (cerebrum) 03/02/2018 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 Immunizations Name Administration Dates Next Due Influenza (High Dose) Trival ent,PF (Fluzone) 01/13/2018,01/09/2017,01/02/2016 Social History Tobacco Use Types Packs/Day Years Used Date Smoking Tobacco: Never Smokeless Tobacco: Never Tobacco Cessation:Counseling Given: Yes Alcohol Use Standard Drinks/Week Comments No 0 (1 standard drink = 0.6 oz pur e alcohol) Sex and Gender Information Value Date Recorded Sex Assigned at Not on file Legal Sex Male 3:11 AM FILLER IN Gender Identity Not on file Sexual Orientation Not on file Last Filed Vital Signs Vital Sign Reading Time Taken Comments Blood Pressure 148/78 05/08/2018 12:44 PM FILLER IN Pulse 62 05/08/2018 12:44 PM FILLER IN Temperature 36.7 ??C (98.1 ??F) 03/12/2018 8:26 AM CS T Respiratory Rate 16 03/12/2018 8:26 AM FILLER IN Oxygen Saturation 93% 03/12/2018 8:26 AM FILLER IN Inhaled Oxygen Concentration - - Weight 112.9 kg (249 lb) 05/08/2018 12:44 PM FILLER IN Height 175.3 cm (5' 9) 03/08/2018 12:20 PM FILLER IN Body Mass Index 36.77 03/08/2018 12:20 PM FILLER IN Plan of Treatment Not on file Insurance [facility] MEDICARE ADVANTAGE Advance Directives For more information, please contact: [phone] * Full Code (Latest Code Status on [...] 4:54 AM 06/05/2016 5:47 PM Care Teams Helium Arc Welder Relationship Specialty Start Date End Date Clinic, [address] [id number] PCP - General 03/02/18
--- OUTSIDE RECORDS SUMMARY | 2024-02-17 10:49 | XMS_ITS | Clinical Summary ---
Author Organization [place] [facility] Address [address] [place] [address]. [place] [address] Care Team Providers Care Foreign Exchange Position Clerk Name Role Phone Clinic, [facility] Primary Care Provider Allergies No known active [...] Influenza (High Dose) Trival ent,PF (Fluzone) 01/13/2018,01/09/2017,01/02/2016 Family History Medical History Relation Comments Coronary [...] on file Legal Sex Male 3:11 AM MOSS BLEACHER Gender Identity Not on file Sexual Orientation Not on file Last Filed Vital Signs Vital Sign Reading Time Taken Comments Blood Pressure 148/78 05/08/2018 12:44 PM MOSS BLEACHER Pulse 62 05/08/2018 12:44 PM MOSS BLEACHER Temperature 36.7 ??C (98.1 ??F) 03/12/2018 8:26 AM CS T Respiratory Rate 16 03/12/2018 8:26 AM MOSS BLEACHER Oxygen Saturation 93% 03/12/2018 8:26 AM MOSS BLEACHER Inhaled Oxygen Concentration - - Weight 112.9 kg (249 lb) 05/08/2018 12:44 PM MOSS BLEACHER Height 175.3 cm (5' 9) 03/08/2018 12:20 PM MOSS BLEACHER Body Mass Index 36.77 03/08/2018 12:20 PM MOSS BLEACHER Plan of Treatment Not on file Insurance [facility] MEDICARE ADVANTAGE Advance Directives For more information, please contact: [phone] * Full Code (Latest Code Status on [...] 4:54 AM 06/05/2016 5:47 PM Care Teams Foreign Exchange Position Clerk Relationship Specialty Start Date End Date [facility], [address] [id number] PCP - General 03/02/18
--- OUTSIDE RECORDS SUMMARY | 2024-02-17 10:49 | XMS_ITS | Clinical Summary ---
Author Organization [facility] Address [address] [place] [address] Care Team Providers Care Admitting Manager Name Role Phone oP Coats MD Primary Care Provider Source Comments You are receiving this document as you are listed as the primary care provider,follow-up provider, or the patient has been referred to you for consultation.This is in compliance with the Medicare and[facility] EHR Incentive Program,which states Providers who transition their patient to another setting of careor provider of care or refers their patient to another provider of care shouldprovide summary care record for each transition of care or referral. 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 Overview (11/17/2015): Setting: ASV EPAPmin 5 EPAP max 15 PSmin 0 PS max 20 Max Pressure 25 Rate auto Supplied by: [facility] PSG done: 02/08/14 AHI 106 RDI 107 Lowest O2 Sat: 79% Renew 10/04/2015 New 03/31/14 Hyperlipidemia 01/08/2014 Lumbago 09/19/2002 Overview (12/05/2016): Pain Low Back Immunizations Name Administration Dates Next Due Flu Vac Preserv Free (3+yrs) 12/12/2011, 12/08/2010,12/21/2009, 009,02/27/2006 Influenza IIV3 (Trivalent) F luzone Highdose, 65+ Yrs (53363) 01/09/2017 Influenza IIV4 (Quadrivalent ) 0.5mL (02342) 12/28/2014,12/25/2013,01/26/2013 PCV13 (Prevnar) 05/04/2015 PPSV23 (Pneumovax) 12/12/2011,02/27/2006 TDAP (BOOSTRIX) 12/25/2013 Td 03/09/2003 Zoster (Zostavax) 09/17/2011 Family History Medical History Relation Name Comments Cancer Father lung Abdominal Aortic Aneurysm Mother Cataract Mother Glaucoma Mother Retinal Detachment Mother Early Brother 1 Early Brother 2 Cataract Paternal Grandfather Amblyopia/Strabismus [...] Additional history exists COVID-19 Vaccine ( season) 2023 01/31/2022, 01/06/2021, 07/08/2020, Additional history exists Influenza (#1) 2023 01/25/2022, 09/2020, 12/25/2019, Additional history exists DTaP/Tdap/Td (2 - Tdap) 12/26/2023 12/25/2013, 03/09 RSV (1 - 1-dose 75+ series) 2025 Hep C Screening (Preventive Services) Completed 09/05/2016 [...] on patient's age to complete this topic Infant RSV Aged Out No longer eligi ble based [...] COLON, SCREENING/DIAGNOSTI C Routine 04/16/2014 7:08 AM WELT EDGE ROUNDER Annual physical exam from Last 3 Months [...] - 09/05/2016 10:31 AM CDT Performed at [facility] [address] [place] [address] CLIA number [id number] Po Coats MD LAB_1 Performing Organization Address [facility] de Phone Number PN SOFT [address] [place] [address] * Hepatitis C Antibody, with Reflex (09/05/2016 10:05 AM CDT) Hepatitis C Antibody Nonreactive Nonreactive PN SOFT 09/05/2016 10:0 5 AM CDT 09/05/2016 12:40 PM CDT Narrative PN SOFT - 09/05/2016 3:25 PM CDT Performed at [address] [address] CLIA number [id number] Po Coats MD LAB_1 Performing Organization Address [facility] de Phone Number PN SOFT [address] [place] [address] * Endoscopy, colon, diagnostic (04/16/2014 7:08 AM WELT EDGE ROUNDER) Anatomical Region Laterality Modality Other 04/16/2014 7:08 AM WELT EDGE ROUNDER Narrative 04/16/2014 7:08 AM WELT EDGE ROUNDER Patient Name: Raul Dickson Procedure Date: 04/16/2014 [...] oxygen saturations were monitored ? continuously. The [id number] was ? introduced through the anus and [...] Procedure Code(s): ?? --- Professional --- ? 63597, Colonoscopy, flexible, ? proximal to splenic flexure; with ? biopsy, single or multiple Diagnosis Code(s): ?? --- Professional --- ? V76.51, Special screening for ? malignant neoplasms of colon ? V18.51, Family history of colonic ? polyps ? 569.0, Anal and rectal polyp ? 211.3, Benign neoplasm of colon ? 562.10, Diverticulosis of colon ? (without mention of hemorrhage) CPT copyright 2013 [employer]. All rights reserved. The codes documented in this report are preliminary and upon canteen attendant review may be revised to meet current compliance requirements. Derick Chavez MD 04/16/2014 8:08 AM This document has been electronically signed. Number of Addenda: 0 Note Initiated On: 04/16/2014 7:08 AM ? Endoscopy Report Po Coats MD ET GI PROCEDURE KEVIN UNDERWOOD from Last 3 Months or Most Recently Relevant to Health Maintenance Advance Directives * Full Code (Latest Code Status on File) Date Activated Date Inactivated Comments 10/17/2012 9:20 AM 10/17/2012 3:38 PM Care Teams Admitting Manager Relationship Specialty [place] [address] [place] [address] PCP - General 08/07/12
== END 2024-02-17 12:32 | disposition home or self-care (01) ==
PROVIDERS: Emergency Provider Emergency Medicine Emergency Medical Services; PCP Family Medicine
DX: S76.312A Strain of muscle, fascia and tendon of the posterior muscle group at thigh level, left thigh, initial encounter (principal)
CPT/HCPCS: 93971; 99283; 99284

== ENCOUNTER 2024-03-09 07:55 | Outpatient (CLI) | payer MEDICARE, SELFPAY ==
--- OUTSIDE RECORDS SUMMARY | 2024-03-10 11:53 | XMS_ITS | Clinical Summary ---
Author Organization [place] [facility] Address [address] [place] [address]. [place] [address] Care Team Providers Care Pool Installer Name Role Phone Clinic, [facility] Primary Care Provider Allergies No known [...] on file Legal Sex Male 3:11 AM TAX ADJUSTER Gender Identity Not on file Sexual Orientation Not on file Last Filed Vital Signs Vital Sign Reading Time Taken Comments Blood Pressure 148/78 05/08/2018 12:44 PM TAX ADJUSTER Pulse 62 05/08/2018 12:44 PM TAX ADJUSTER Temperature 36.7 C (98.1 F) 03/12/2018 8:26 AM TAX ADJUSTER Respiratory Rate 16 03/12/2018 8:26 AM TAX ADJUSTER Oxygen Saturation 93% 03/12/2018 8:26 AM TAX ADJUSTER Inhaled Oxygen Concentration - - Weight 112.9 kg (249 lb) 05/08/2018 12:44 PM TAX ADJUSTER Height 175.3 cm (5' 9) 03/08/2018 12:20 PM TAX ADJUSTER Body Mass Index 36.77 03/08/2018 12:20 PM TAX ADJUSTER Plan of Treatment Not on file Insurance [facility] MEDICARE ADVANTAGE Advance Directives For more information, please contact: [phone] * Full Code (Latest Code Status on [...] 4:54 AM 06/05/2016 5:47 PM Care Teams Pool Installer Relationship Specialty Start Date End Date Clinic, [address] [address] PCP - General 03/02/18
--- OUTSIDE RECORDS SUMMARY | 2024-03-10 11:53 | XMS_ITS | Clinical Summary ---
Author Organization [facility] Address [address] [place] [address] Care Team Providers Care Title Assistant Name Role Phone Po Coats MD Primary Care Provider Source Comments You are receiving this document as you are listed as the primary care provider,follow-up provider, or the patient has been referred to you for consultation.This is in compliance with the Medicare and[facility] EHR Incentive Program,which states Providers who transition their patient to another setting of careor provider of care or refers their patient to another provider of care shouldprovide summary care record for each transition of care or referral. [place] Allergies No known active allergies Medications Medication [...] Max Pressure 25 Rate auto Supplied by: [facility] PSG done: 02/08/14 AHI 106 RDI 107 Lowest O2 Sat: 79% Renew 10/04/2015 New 03/31/14 Hyperlipidemia 01/08/2014 Lumbago 09/19/2002 Overview (12/05/2016): Pain Low Back Immunizations Name Administration Dates Next Due Flu Vac Preserv Free (3+yrs) 12/12/2011, 12/08/2010,12/21/2009, 009,02/27/2006 Influenza IIV3 (Trivalent) F luzone Highdose, 65+ Yrs (07502) 01/09/2017 Influenza IIV4 (Quadrivalent ) 0.5mL (28242) 12/28/2014,12/25/2013,01/26/2013 PCV13 (Prevnar) 05/04/2015 PPSV23 (Pneumovax) 12/12/2011,02/27/2006 TDAP (BOOSTRIX) 12/25/2013 Td 03/09/2003 Zoster (Zostavax) 09/17/2011 Family History Medical History Relation Name Comments Cancer Father lung Abdominal Aortic Aneurysm Mother Cataract Mother Glaucoma Mother Retinal Detachment Mother Early Brother 1 Early Brother 2 infant Cataract Paternal Grandfather [...] 68 11/09/2022 8:12 AM CDT Temperature 36.3 C (97.3 F) 11/07/2021 8:54 AM CDT Respiratory Rate 16 [...] COLON, SCREENING/DIAGNOSTI C Routine 04/16/2014 7:08 AM PERINATAL NURSE Annual physical exam from Last 3 Months [...] - 09/05/2016 10:31 AM CDT Performed at [facility], [address] [place] [address] CLIA number [id number] Po Caots MD LAB_1 Performing Organization Address [facility] de Phone Number SOFT [address] [place] [address] * Hepatitis C Antibody, with Reflex (09/05/2016 10:05 AM CDT) Hepatitis C Antibody Nonreactive Nonreactive PN SOFT 09/05/2016 10:0 5 AM CDT 09/05/2016 12:40 PM CDT Narrative PN SOFT - 09/05/2016 3:25 PM CDT Performed at [facility], [address] [place] [address] CLIA number [id number] Po Coats MD LAB_1 Performing Organization Address [facility] de Phone Number SOFT [address] [place] [address] * Endoscopy, colon, diagnostic (04/16/2014 7:08 AM PERINATAL NURSE) Anatomical Region Laterality Modality Other 04/16/2014 7:08 AM PERINATAL NURSE Narrative 04/16/2014 7:08 AM PERINATAL NURSE Patient Name: Raul Dickson Procedure Date: 04/16/2014 7:08 AM Date of : 1950 Admit Type: Outpatient Age: 63 Gender: Male Note Status: Finalized Attending MD: Derick Chavez MD Procedure: Colonoscopy Indications: Colon cancer screening in patient at increased risk: Family history of colon polyps Providers: Derick Chavez MD, Urmila Bansal, RN Referring MD: Po Coats MD Medicines: Midazolam 1 mg IV, Fentanyl 50 micrograms IV Complications: No immediate complications. Estimated blood loss: Minimal. Procedure: After I obtained informed consent, the scope was passed under direct vision. Throughout the procedure, the patient's blood pressure, pulse, and oxygen saturations were monitored continuously. The [id number] was introduced through the anus and advanced [...] diet indefinitely. Procedure Code(s): --- Professional --- 81925, Colonoscopy, flexible, proximal to splenic flexure; with biopsy, single or multiple Diagnosis Code(s): --- Professional --- V76.51, Special screening for malignant neoplasms of colon V18.51, Family history of colonic polyps 569.0, Anal and rectal polyp 211.3, Benign neoplasm of colon 562.10, Diverticulosis of colon (without mention of hemorrhage) CPT copyright 2013 [employer]. All rights reserved. The codes documented in this report are preliminary and upon lawn and garden technician review may be revised to meet current compliance requirements. Derick Chavez MD 04/16/2014 8:08 AM This document has been electronically signed. Number of Addenda: 0 Note Initiated On: 04/16/2014 7:08 AM Endoscopy Report Po Coats MD ET GI PROCEDURE ORDE YASMINE from Last 3 Months or Most Recently Relevant to Health Maintenance Advance Directives * Full Code (Latest Code Status on File) Date Activated Date Inactivated Comments 10/17/2012 9:20 AM 10/17/2012 3:38 PM Care Teams Title Assistant Relationship Specialty [place] [address] [place] [address] PCP - General 08/07/12
--- OUTSIDE RECORDS SUMMARY | 2024-03-10 11:53 | XMS_ITS | Clinical Summary ---
Author Organization [facility] Address [place], [place] [address] Care Team Providers Care Stamp Presser Name Role Phone Kevin Rogers MD Primary Care Provider [phone] [facility] [place] Unavailable [phone] Allergies Active Allergy Reactions Criticality Noted Date [...] 80 02/03/2023 8:11 AM CDT Temperature 37.6 C (99.6 F) 02/03/2023 8:11 AM CDT Respiratory Rate 16 02/03/2023 8:11 AM CDT [...] 65+ 12/15/2023 Medical Devices Implanted Type Area Director Customer Device Identifier Shelf Expiration Date Model / Serial / Lot Anchr Crossft 5.5mm Triple - [id number] Implanted:Qty: 2 on 04/27/2011 at [facility] Right: Shoulder LINVATEC SANCHEZ SURGICAL/CONMED 07/13/2012 [id number] / / [id number] Poplok Suture [place] Implanted:Qty: 1 on 04/27/2011 at [facility] Right: Shoulder 11/13/2015 [id number] / / [id number] Description:Poplok suture an chor Bone 1-4mm 60cc Medtronic Fine Canclls Freeze Dried - [id number] Implanted:Qty: 1 on 01/31/2023 by Rajeev Gupta MD at [facility] N/A: Spine Medtronic Spine/Ortho 07/06/2026 [id number] / [id number] Description:Posterior L4-5 Set Screw Pointlock Mariner - [id number] Implanted:Qty: 4 on 01/31/2023 by Rajeev Gupta MD at [facility] N/A: Lumbar Vertebrae SeaSpine [id number] / / Screw 6.5x50mm Solid Mariner - [id number] Implanted:Qty: 2 on 01/31/2023 by Rajeev Gupta MD at [facility] N/A: Lumbar Vertebrae SeaSpine [id number] / / Screw 6.5x40mm Solid Mariner - [id number] Implanted:Qty: 1 on 01/31/2023 by Rajeev Gupta MD at [facility] N/A: Lumbar Vertebrae SeaSpine [id number] / / Screw 6.5x45mm Solid Mariner - [id number] Implanted:Qty: 1 on 01/31/2023 by Rajeev Gupta MD at [facility] N/A: Lumbar Vertebrae SeaSpine 41-6545-1 / / Screw Bone Polyaxial Mariner - [id number] Implanted:Qty: 4 on 01/31/2023 by Rajeev Gupta MD at [facility] N/A: Lumbar Vertebrae SeaSpine [id number] / / Kang 5.5x40mm Victoria Precountoured - [id number] Implanted:Qty: 2 on 01/31/2023 by Rajeev Gupta MD at [facility] N/A: Lumbar Vertebrae SeaSpine [id number] / [...] 10:43 AM 04/27/2011 1:48 PM Care Teams Stamp Presser Relationship Specialty Start Date End Date Kevin Rogers MD [address] [place] [address] PCP - General Family Practice 12/20/17 [facility], [place] [address] [place], [place] [id number] 02/03/23
--- OUTSIDE RECORDS SUMMARY | 2024-03-10 11:53 | XMS_ITS | Referral Summary ---
Author Organization [facility] Address [address] [place] [address]. [place] [address] Care Team Providers Care Technical Stenographer Name Role Phone Clinic, [facility] Primary Care Provider Allergies No known active [...] on file Legal Sex Male 3:11 AM PULP HOUSE SUPERVISOR Gender Identity Not on file Sexual Orientation Not on file Last Filed Vital Signs Vital Sign Reading Time Taken Comments Blood Pressure 148/78 05/08/2018 12:44 PM PULP HOUSE SUPERVISOR Pulse 62 05/08/2018 12:44 PM PULP HOUSE SUPERVISOR Temperature 36.7 C (98.1 F) 03/12/2018 8:26 AM PULP HOUSE SUPERVISOR Respiratory Rate 16 03/12/2018 8:26 AM PULP HOUSE SUPERVISOR Oxygen Saturation 93% 03/12/2018 8:26 AM PULP HOUSE SUPERVISOR Inhaled Oxygen Concentration - - Weight 112.9 kg (249 lb) 05/08/2018 12:44 PM PULP HOUSE SUPERVISOR Height 175.3 cm (5' 9) 03/08/2018 12:20 PM PULP HOUSE SUPERVISOR Body Mass Index 36.77 03/08/2018 12:20 PM PULP HOUSE SUPERVISOR Plan of Treatment Not on file Insurance [facility] MEDIC[facility] Advance Directives For more information, please contact: [phone] * Full Code (Latest Code Status on [...] 4:54 AM 06/05/2016 5:47 PM Care Teams Technical Stenographer Relationship Specialty Start Date End Date Clinic, [address] [address] PCP - General 03/02/18
== END 2024-03-09 07:56 | disposition home or self-care (01) ==
LOC: NFLDREF 03-10 11:52
PROVIDERS: PCP Family Medicine; Referring Provider Family Medicine; Visit Provider Family Medicine
DX: E11.610 Type 2 diabetes mellitus with diabetic neuropathic arthropathy (principal); R97.20 Elevated prostate specific antigen [PSA]; Z12.5 Encounter for screening for malignant neoplasm of prostate
CPT/HCPCS: G0103

== ENCOUNTER 2024-03-30 12:08 | Outpatient (CLI) | payer MEDICARE, SELFPAY | END 2024-03-30 12:09 | disposition home or self-care (01) | LOC: NFLDREF 03-31 02:23 | PROVIDERS: PCP Family Medicine; Referring Provider Family Medicine; Visit Provider Nurse Practitioner Family | DX: N30.01 Acute cystitis with hematuria (principal); B96.20 Unspecified Escherichia coli [E. coli] as the cause of diseases classified elsewhere | CPT/HCPCS: 87086; 87186 ==

== ENCOUNTER 2024-04-30 10:00 | Outpatient (RCR) | payer MEDICARE, SELFPAY ==
--- NOTE | 2024-03-16 19:22 | PT.OPE ---
PT [place] Outpatient Eval PT [facility] Outpatient Eval Start: 03/16/24 10:18 Freq: Status: Active Protocol: Document 03/16/24 14:41 LSL (Rec: 03/16/24 15:10 LSL [id number]) E-signed By Swapna Burgess PT Physical Therapy Outpatient Evaluation Insurance Information Recert Due Date 06/14/24 Insurance Name Medicare B Medical Diagnosis L HS strain Treating Diagnosis pain, weakness Referring MD Green Subjective Subjective I was working on my [employer] tractor about 3 weeks ago and I was kneeling on both knees and put my right leg up to get up and felt a strong pain in my L mid posterior thigh to my knee. I couldn't walk and went to ER and they suggested ortho follow up who diagnosed mid muscle tear. If I sit in a chair with my feet on the floor I get a pain in the posterior thigh and knee. If I put the heated seats on it is helpful when I am driving. They sent me home from the ER with crutches and slipped getting out of the car when I got home so I went to a cane. Stairs aren't too bad. Pain Comments 0/10 best, 6/10 worst Date of Last Physician Visit 03/13/24 Current Work Status Retired Precautions Treatment Precautions/Contraindications back is doing well and I was walking pretty well until this happened and without and AD, lumbar fusion fall 2022 Weight Bearing Status Full Weight Bearing Therapy Limitations/Systems Review Other Medical Problem Objective Range of Motion AROM - lumbar flexion 50% with pain in L posterior thigh and lumbar region PROM - prone knee flexion increases pain in the posterior knee Strength Knee - all heads of HS 5/5 B Hip - L hip extension 5/5 (in available ROM), R hip extension 4/5 (in available ROM), L hip abduction 5/5 (in available ORM), adductors 4/5 Ankle - PF unable to assess in WB, 3+/5 in NWB, Swelling present in the proximal posterolateral thigh, both side are shaped this way with significantly more fluid in the L, mild fluid in posterior knee Palpation ball of tight, painful tissue mid semimembranosus, and tender at proximal bicep femoris, L adductor bundle sore O to I Balance & Gait gait - using SPC on R with decreased stance B and waddle type stance balance - not assessed Assessment Assessment/Impression Pt. is a 73 y/o male who presents with a left hamstring strain, likely to be a tear and retraction of the semimembranosus with swelling present laterally to the ischial tuberosity and pain and a ball of tissue in the mid posterior thigh. There is swelling distally to the posterior knee and significant tenderness about the adductor bundle in addition to the posterior thigh. This may be compensatory. He has multiple other medical issues including diabetes and a recent lumbar fusion and RCR that complicate his care. He will benefit from treatment to decrease swelling in the posterior thigh and therex for both range of motion and strength with modalities prn. Primary Functional Limitations walking, sitting, getting up from sitting or kneeling positions Plan of Care Rehabilitation Potential Good Physical Therapy Goals SHORT TERM GOALS: (4 weeks) 1. Pt. able to perform knee flexion with pain less than 2/ 10. 2. Pt. able to sit upright for 10-15 minutes with pain less than 2/10. 3. Pt. able to ambulate household distances with SPC. COLLEGE PHYSICS INSTRUCTOR GOALS: (8 weeks) 1. Pt. able to ambulate community distances with pain less than 2/10. 2. Pt. able to sit upright for 60 minutes with pain less than 2/10. 3. Pt. able to drive without heated seats on with pain less than 2/10. Coordination/Communication With Referral Source Treatment Plan/Direct Interventions Electrical Stimulation,Heat, Manual Therapy,Neuromuscular Re-ed,Therapeutic Activities, Therapeutic Exercises Frequency/Duration 2x/week 6 weeks Patient Will Be Discharged From Therapy Completion of LTG(s),Skills Plateau,Independent w/HEP, Independently Progressing Evaluation Billing Untimed Code Treatment Minutes 25 Complexity Low Certification Information Initial Certification Date 03/16/24 Ending Certification Date 06/14/24 Provider Signature Required Yes Provider Signature Shows Agreement With POC & Medical Necessity Physician NPI Number Write NPI# Here Physician Comment/Change : Physician Signature & Date Requested Please Sign/Date Here
== END 2024-06-16 10:45 | disposition home or self-care (01) ==
PROVIDERS: PCP Family Medicine; Visit Provider Family Medicine
DX: S76.312A Strain of muscle, fascia and tendon of the posterior muscle group at thigh level, left thigh, initial encounter (principal); R53.1 Weakness; Z51.89 Encounter for other specified aftercare
CPT/HCPCS: 97032; 97035; 97110; 97140; 97161

== ENCOUNTER 2024-06-22 12:40 | Outpatient (CLI) | payer MEDICARE, SELFPAY | END 2024-06-22 12:41 | disposition home or self-care (01) | LOC: LKVREF 12:41 | PROVIDERS: PCP Family Medicine; Visit Provider Nurse Practitioner Family | DX: L03.115 Cellulitis of right lower limb (principal) | CPT/HCPCS: 87070 ==

== ENCOUNTER 2024-08-04 08:53 | Outpatient (CLI) | payer MEDICARE, SELFPAY | END 2024-08-04 08:54 | disposition home or self-care (01) | LOC: WOUND 08:54 | PROVIDERS: PCP Family Medicine; Visit Provider Physician Assistant | DX: E11.21 Type 2 diabetes mellitus with diabetic nephropathy (principal); I10 Essential (primary) hypertension; L97.311 Non-pressure chronic ulcer of right ankle limited to breakdown of skin; Z79.84 Long term (current) use of oral hypoglycemic drugs | CPT/HCPCS: 97597; G0463 ==

== ENCOUNTER 2024-08-18 13:30 | Outpatient (CLI) | payer MEDICARE, SELFPAY | END 2024-08-18 13:31 | disposition home or self-care (01) | LOC: NFLDREF 08-23 07:09 | PROVIDERS: PCP Family Medicine; Referring Provider Family Medicine; Visit Provider Family Medicine | DX: R97.20 Elevated prostate specific antigen [PSA] (principal); E11.610 Type 2 diabetes mellitus with diabetic neuropathic arthropathy; E78.2 Mixed hyperlipidemia; I10 Essential (primary) hypertension; E87.6 Hypokalemia; Z12.5 Encounter for screening for malignant neoplasm of prostate; Z01.818 Encounter for other preprocedural examination | CPT/HCPCS: 80053; 80061; 82043; 82570; G0103 ==

== ENCOUNTER 2024-08-24 06:02 | Day surgery (SDC) | payer MEDICARE, SELFPAY ==
[2024-08-24] VITALS (26 sets, daily range): BP systolic 86–153; BP diastolic 45–95; PULSE 53–94; RESP 12–18; TEMP 36.1–36.8; O2SAT 91–99; BMI 35.8
[2024-08-24] MEDS: ACETAMINOPHEN 500 MG TABLET 1000 MG PO ×3 (07:00→20:55)
[2024-08-24] MEDS: OXYCODONE (CR) 10 MG TAB.ER.12H PO (07:00)
[2024-08-24] MEDS: SODIUM CHLORIDE 0.9 % (FLUSH) 10 ML SYRINGE IVF (07:01)
[2024-08-24] MEDS: LACTATED RINGERS 1000 ML 1,000 ML 100 ML IV (07:01)
--- NOTE | 2024-08-24 07:12 | W.PM.H&PU ---
History & Physical Update History & Physical Update H&P Reviewed and patient assessed: No changes noted
--- NOTE | 2024-08-24 07:15 | CRLHL7_ITS ---
For Patients: As a result of the Cures Act, medical imaging exams and procedure reports are released immediately into your electronic medical record. You may view this report before your referring provider. If you have questions, please contact your health care provider. Indication: LT TKA Technique: Two views left knee Findings/Impression: Hardware from a left total knee arthroplasty is in satisfactory position. Bone alignment is normal. No sign of acute fracture. Postop changes are within normal limits. Dictated by Charles Earl MD @ 08/24/2024 11:38:45 AM (Electronically Signed)
[2024-08-24] MEDS: fentaNYL 100 MCG/2 ML inj IVP (07:32)
[2024-08-24] MEDS: MIDAZOLAM HCL 1 MG/ML inj IVP (07:32)
--- NOTE | 2024-08-24 07:44 | SUR.PREOP ---
TIME?OUT:?0732 PT/RN/MDA?VERIFICATION?OF?SURGICAL?SITE,?PROCEDURE,?AND?CONSENT OBTAINED?PRIOR?TO?INVASIVE?PROCEDURE.
[2024-08-24] MEDS: CEFAZOLIN 2 GM in 0.9 % SODIUM CHLORIDE Mini-bag 100 ML IVPB ×3 (08:10→22:47)
[2024-08-24] MEDS: TRANEXAMIC ACID 100 MG/ML INJ 1000 MG IV (08:11)
--- NOTE | 2024-08-24 09:08 | P.ANES_ITS ---
Anesthesia Charges Start Date/Time Anesthesia Start Date: 08/24/24 Anesthesia Start Time: 07:38 Stop Date/Time Anesthesia Stop Date: 08/24/24 Anesthesia Stop Time: 10:15 Summary Extremes of Age - Over 70 or under 1: MDA Coding CPT Codes CPT Codes: ANESTH KNEE ARTHROPLASTY - 41482 ([id number]) P3 - PATIENT W/SEVERE SYS DISEASE, QK - SALES AGENT PEST CONTROL SERVICE 2-4 CNCRNT ANES PROC, QX - DRAFTER CONSTRUCTION SVC W/ MD MED DIRECTION Additional Codes: Summary - Extremes of Age - Over 70 or under 1: MDA ([id number])
--- NOTE | 2024-08-24 09:08 | W.ANESCHARGE ---
Anesthesia Charges Start Date/Time Anesthesia Start Date: 08/24/24 Anesthesia Start Time: 07:38 Stop Date/Time Anesthesia Stop Date: 08/24/24 Anesthesia Stop Time: 10:15 Summary Extremes of Age - Over 70 or under 1: MDA Coding CPT Codes CPT Codes: ANESTH KNEE ARTHROPLASTY - 78066 ([id number]) P3 - PATIENT W/SEVERE SYS DISEASE, QK - PASTRY SUPERVISOR 2-4 CNCRNT ANES PROC, QX - INDUSTRIAL GREEN SYSTEMS DESIGNER SVC W/ MD MED DIRECTION Additional Codes: Summary - Extremes of Age - Over 70 or under 1: MDA ([id number])
--- NOTE | 2024-08-24 09:08 | W.PM.NB ---
Nerve Block Nerve Block Time Seen by Provider: 07:35 Date Seen: 08/24/24 Type of block requested by surgeon for post-operative analgesia: adductor canal Side: left Time out performed: Yes Verification of patient name: Yes Verification of date of : Yes Site marking: site marked Name of person performing procedure: Jose A Continuous monitoring Was continuous monitoring of O2 sat, B/P, monitor technician, recorded every 15 minutes?: Yes Procedure Checklist: sterile prep, needles and gloves Ultrasound guided. Images saved: Yes Medications given in 5ml increments after negative aspiration: Marcaine %: 0.25 mL: 15 Needle gauge: 20 Precedex (mcg): 25 Patient tolerated procedure well: Yes Block Charges Block Charge (with Pro Fee): Femoral Nerve Use of Ultrasound Machine for Block: Yes- US Guidance/pain block
--- NOTE | 2024-08-24 09:08 | W.PM.NB ---
Nerve Block Nerve Block Time Seen by Provider: 07:35 Date Seen: 08/24/24 Type of block requested by surgeon for post-operative analgesia: geniculars Side: left Time out performed: Yes Verification of patient name: Yes Verification of date of : Yes Site marking: site marked Name of person performing procedure: Jose A Continuous monitoring Was continuous monitoring of O2 sat, B/P, site monitor, recorded every 15 minutes?: Yes Procedure Checklist: sterile prep, needles and gloves Ultrasound guided. Images saved: Yes Medications given in 5ml increments after negative aspiration: Marcaine %: 0.25 mL: 9 Needle gauge: 25 Patient tolerated procedure well: Yes Block Charges Block Charge (with Pro Fee): Genicular Nerve Block
--- NOTE | 2024-08-24 09:46 | P.ORPRC_ITS ---
Procedure Note Date of procedure: 08/24/24 Procedure: PREOPERATIVE DIAGNOSIS: 1. Left knee osteoarthritis, primary, severe POSTOPERATIVE DIAGNOSIS: 1. Left knee osteoarthritis, primary, severe PROCEDURE: 1. Left total knee arthroplasty - subvastus SURGEON: Juve Muniz MD. TERRY CLOTH CUTTER HAND: ILIANA Rubalcava - Of note, a skilled criminal legal assistant was critical for this case to aid in patient positioning, tissue retraction, limb manipulation/positioning, and closure. ANESTHESIA: Spinal anesthetic EBL: 50ml IMPLANTS: DePuy J&J all cemented TKA - Attune PS femur size 7 Size 6 tibia 5 poly spacer 38mm patella TOURNIQUET: 90 min at 300 torr COMPLICATIONS: None evident INDICATIONS: The patient is a pleasant 73-year-old Female who has experienced severe left knee pain and difficulty bearing weight. Workup included x-rays which revealed severe osteoarthrosis in the knee. Given the deformity, the dysfunction, and the pain, as well as the failure of nonoperative management, recommendation was made for surgery. FINDINGS: full-thickness chondral loss medial compartment as well as patellofemoral. Significantly sclerotic/hard bone throughout all encountered bone cuts. Moderate effusion upon entering the joint. DESCRIPTION OF PROCEDURE: Following a thorough discussion of risks, benefits, and alternatives consent was obtained and the left knee was marked. The patient was brought to the operating room and placed supine on the operating table. Induction of anesthesia was undertaken. 2 g IV Ancef and 1 g tranexamic acid was administered within 1 hr of incision preoperatively. Proper time-out was performed identifying proper patient, site, procedure. The operative extremity was prepped and draped in the appropriate sterile fashion using ChloraPrep after the patient was positioned supine with all bony prominences well padded. A longitudinal, anterior, midline skin incision was made starting approximately 3cm proximal to the superior pole of the patella and advanced distal to the tibial tubercle. A subvastus approach was utilized. A medial subperiosteal sleeve was created with knife, wong elevator and curved osteotome. The retropatellar fatpad was resected and the synovium in the suprapatellar pouch excised to visualize the anterior femoral cortex. Femoral preparation was performed via an intramedullary guide. Step drill allowed access into the femoral canal. The distal cutting guide was placed with 5? of valgus and 11 mm cut on the distal femur. Femur was sized using a posterior referencing guide in 3? of external rotation. This found have a best fit with the sizing noted above. The 4 in 1 cutting block was then placed, and the distal femur shaped accordingly. The box cut was then created and the trial implant inserted to confirm appropriate fit. We turned our attention to the proximal tibia. Extramedullary guide was utilized for cutting with the goal of being 90 degree cut from the mechanical axis of the tibia in the varus/valgus plane utilizing tibial crest as the primary alignment. Initially a 2 mm resection was performed from the medial tibial plateau. An additional 2mm did require resection to achieve appropriate balance. Ultimately, balancing was achieved in both flexion and extension in both varus and valgus. The knee was able to achieve full extension as well comfortably. The patella was initially measured and found have a thickness of 22 mm. It was resected back to approximately 14 mm. It was sized to be a best fit with as noted above. This was drilled, trial placed. All trials were placed and found to have an excellent stability and balance. At this stage, trial implants were removed, the knee was thoroughly irrigated with normal saline, and the cement was mixed. After irrigation, the knee was thoroughly dried, and cement placed, with the real tibial and femoral implants placed along with the patella. Trial poly spacer was placed and confirmed to have excellent range of motion and full extension, and the real poly spacer ope tad and inserted. All extra cement was removed, and a 3 min Betadine soak performed. Finally, a final irrigation round with normal saline was performed. Closure performed with 0 PDS and #0 Stratafix for the quad tendon/retinaculum. 2-0 Vicryl/Stratafix for the subcutaneous and 4-0 Monocryl for subcuticular closure. Dressings were applied and the patient was awoken from anesthesia after the tourniquet deflated and transferred the PACU in stable condition. A skilled criminal legal assistant was critical for this case to aid in patient positioning, tissue retraction, bone exposure, limb manipulation/positioning, patient safety, and closure. PLAN: 1. Weight bear as tolerated operative extremity. 2. 23 hr perioperative antibiotics. 3. Ice. 4. PT/OT consults for ambulation assistance/mobility education. 5. Social work consult for discharge planning. 6. DVT prophylaxis with at SCDs and aspirin twice daily.
--- NOTE | 2024-08-24 10:33 | P.ANES_ITS ---
Anesthesia Charges Start Date/Time Anesthesia Start Date: 08/24/24 Anesthesia Start Time: 07:38 Stop Date/Time Anesthesia Stop Date: 08/24/24 Anesthesia Stop Time: 10:15 Summary Extremes of Age - Over 70 or under 1: RAILWAY SWITCH OPERATOR Coding CPT Codes CPT Codes: ANESTH KNEE ARTHROPLASTY - 18229 ([id number]) QK - JAVA JSF DEVELOPER 2-4 CNCRNT ANES PROC, QX - RAILWAY SWITCH OPERATOR SVC W/ MD MED DIRECTION, P3 - PATIENT W/SEVERE SYS DISEASE Additional Codes: Summary - Extremes of Age - Over 70 or under 1: RAILWAY SWITCH OPERATOR ([id number])
--- NOTE | 2024-08-24 10:33 | W.ANESCHARGE ---
Anesthesia Charges Start Date/Time Anesthesia Start Date: 08/24/24 Anesthesia Start Time: 07:38 Stop Date/Time Anesthesia Stop Date: 08/24/24 Anesthesia Stop Time: 10:15 Summary Extremes of Age - Over 70 or under 1: METAL TANK ERECTOR Coding CPT Codes CPT Codes: ANESTH KNEE ARTHROPLASTY - 07729 ([id number]) QK - EMPLOYEE BENEFITS MANAGER 2-4 CNCRNT ANES PROC, QX - METAL TANK ERECTOR SVC W/ MD MED DIRECTION, P3 - PATIENT W/SEVERE SYS DISEASE Additional Codes: Summary - Extremes of Age - Over 70 or under 1: METAL TANK ERECTOR ([id number])
--- NOTE | 2024-08-24 10:56 | SUR.PHASEI ---
patient met discharge criteria per anesthesia
--- NOTE | 2024-08-24 14:59 | P.IMCN_ITS ---
Date of Consult Patient: [facility] Patient Consult date: 08/24/24 Requesting Physician: Orthopedics Primary Care Provider: Murtaza Green MD Consult Narrative Reason for consult: Postop care diabetes mellitus type 2, HTN, CARLOS, HLD Narrative: Raul Dickson is a 73 year old man with severe, symptomatic left gonarthrosis undergoes elective left total knee arthroplasty today with Dr. Connell, with no complications and estimated blood loss of 50 mL. Pain management adequate at this time. Ordinarily manages well for underlying medical conditions. Has been on aspirin 325 mg once daily for secondary prevention of cardiovascular disease without complications. Review of Systems Status of ROS: Reports: 6 or more systems reviewed and unremarkable except as noted in History and below [facility] Medical History Hyperlipidemia ?E78.5 - Hyperlipidemia, unspecified (ICD-10) Abnormal electrocardiography ?R94.31 - Abnormal electrocardiogram [ECG] [EKG] (ICD-10) Cerebrovascular accident (CVA) ?I63.9 - Cerebral infarction, unspecified (ICD-10) Controlled type 2 diabetes mellitus ?E11.9 - Type 2 diabetes mellitus without complications (ICD-10) Hypertension ?I10 - Essential (primary) hypertension (ICD-10) Low back pain ?M54.50 - Low back pain, unspecified (ICD-10) Subclinical hypothyroidism ?E03.8 - Other specified hypothyroidism (ICD-10) Sleep apnea with use of continuous positive airway pressure (CPAP) ?G47.30 - Sleep apnea, unspecified (ICD-10) Osteoarthritis of left hip ?M16.12 - Unilateral primary osteoarthritis, left hip (ICD-10) Greater trochanteric bursitis of left hip ?M70.62 - Trochanteric bursitis, left hip (ICD-10) Tendinitis involving left hip abductors ?M76.892 - Other specified enthesopathies of left lower limb, excluding foot (ICD-10) Tendinitis involving right hip abductors ?M76.891 - Other specified enthesopathies of right lower limb, excluding foot (ICD-10) Central spinal stenosis ?M48.00 - Spinal stenosis, site unspecified (ICD-10) Facet arthropathy, lumbosacral ?M47.817 - Spondylosis without myelopathy or radiculopathy, lumbosacral region (ICD-10) Osteoarthritis of left knee ?M17.12 - Unilateral primary osteoarthritis, left knee (ICD-10) Osteoarthritis of right hip ?M16.11 - Unilateral primary osteoarthritis, right hip (ICD-10) Hypokalemia ?E87.6 - Hypokalemia (ICD-10) Knee pain, left ?M25.562 - Pain in left knee (ICD-10) Osteoarthritis of right knee ?M17.11 - Unilateral primary osteoarthritis, right knee (ICD-10) Trigger finger of right thumb ?M65.311 - Trigger thumb, right thumb (ICD-10) Rising PSA level ?R97.20 - Elevated prostate specific antigen [PSA] (ICD-10) Rosacea ?L71.9 - Rosacea, unspecified (ICD-10) Left hamstring muscle strain ?S76.312A - Strain of muscle, fascia and tendon of the posterior muscle group at thigh level, left thigh, initial encounter (ICD-10) Wound of foot ?S91.309A - Unspecified open wound, unspecified foot, initial encounter (ICD- 10) SOB (shortness of breath) ?R06.02 - Shortness of breath (ICD-10) Pre-op exam ?Z01.818 - Encounter for other preprocedural examination (ICD-10) UTI due to extended-spectrum beta lactamase (ESBL) producing Escherichia coli ?N39.0 - Urinary tract infection, site not specified (ICD-10) ?B96.29 - Other Escherichia coli [E. coli] as the cause of diseases classified elsewhere (ICD-10) ?Z16.12 - Extended spectrum beta lactamase (ESBL) resistance (ICD-10) Right knee pain ?M25.561 - Pain in right knee (ICD-10) Leg edema ?R60.0 - Localized edema (ICD-10) Encounter for Medicare annual wellness exam ?Z00.00 - Encounter for general adult medical examination without abnormal findings (ICD-10) History of stress test ?Z92.89 - Personal history of other medical treatment (ICD-10) Surgical History History of left knee replacement (08/24/24) ?Z96.652 - Presence of left artificial knee joint (ICD-10) History of lumbar fusion ?Z98.1 - Arthrodesis status (ICD-10) S/P arthroscopy of left shoulder (07/25/22) ?Z98.890 - Other specified postprocedural states (ICD-10) History of transurethral resection of prostate ?Z98.890 - Other specified postprocedural states (ICD-10) ?Z90.79 - Acquired absence of other genital organ(s) (ICD-10) History of rotator cuff surgery ?Z98.890 - Other specified postprocedural states (ICD-10) History of colonoscopy ?Z98.890 - Other specified postprocedural states (ICD-10) History of colectomy ?Z90.49 - Acquired absence of other specified parts of digestive tract (ICD- 10) Family History Mother Aortic aneurysm Other Heart disease Lung cancer Social History Narrative: , spouse w/ multiple sclerosis retired from employment What is your current living situation?: I presently have a place to live Problems where you live: no known problems In the past 12 months, utilities in danger of being shut off: no In past 12 months, lack of transportation kept you from medical appts, meetings, work, or getting things needed for daily living: no In the past 12 mos, have been you worried that your food would run out before you had money to buy more?: never true In the past 12 mos, the food you bought just didn't last and you didn't have money to buy more?: never true Smoking Status: Never smoker Do you use any of these nicotine containing products: None Second hand tobacco smoke exposure: No How often do you have a drink containing alcohol: never AUDIT-C Alcohol total score: 0 Non-prescribed substance use: denies use Caffeine: No How often does anyone, including family, friends and others, physically hurt you : never How often does anyone, including family, friends and others, insult or talk down to you: never How often does anyone, including family, friends and others, threaten you with harm: never How often does anyone, including family, friends and others, scream or curse at you: never service: No Meds Home Medications and Allergies Home Medications ?Medication ?Instructions ?Recorded ?Confirmed ?Type Lactobacillus acidophilus 10 mg PO QDAY 11/28/21 08/24/24 History magnesium 200 mg tablet 200 mg PO QDAY 11/28/21 08/24/24 History multivitamin 1 tab PO QAM 11/28/21 08/24/24 History psyllium 1 tbsp PO DAILY PRN 11/28/21 08/24/24 History cholecalciferol (vitamin D3) 50 50 mcg PO DAILY 01/16/22 08/24/24 History mcg (2,000 unit) capsule diphenhydramine 25 1 tab PO QHS PRN 01/16/22 08/24/24 History mg-acetaminophen 500 mg tablet (Tylenol PM Extra Strength) triamterene 37.5 2 tab PO DAILY #180 tabs 09/10/23 08/24/24 Rx mg-hydrochlorothiazide 25 mg tablet cyclobenzaprine 10 mg tablet 10 mg PO TID PRN muscle spasm #90 07/20/24 08/24/24 Rx tabs metformin 500 mg tablet,extended 500 mg PO DAILY #90 tabs 07/21/24 08/24/24 Rx release 24 hr acetaminophen 500 mg capsule 500 - 1,000 mg (1 - 2 x 500 mg) PO 08/24/24 Rx Q6H PRN #100 caps amlodipine 2.5 mg tablet 2.5 mg PO DAILY 08/24/24 08/24/24 History amlodipine 5 mg tablet 5 mg PO DAILY 08/24/24 08/24/24 History aspirin 81 mg tablet,delayed 81 mg PO BID 30 days #60 tabs 08/24/24 Rx release atorvastatin 20 mg tablet 20 mg PO HS 08/24/24 08/24/24 History oxycodone 5 mg tablet 2.5 - 5 mg (0.5 - 1 x 5 mg) PO 08/24/24 Rx Q4-6H PRN pain #42 tabs potassium chloride 20 mEq 20 meq PO DAILY 08/24/24 08/24/24 History tablet,extended release sennosides 8.6 mg-docusate sodium 1 - 4 tab-cap (1 - 4 x 8.6-50 mg) 08/24/24 Rx 50 mg tablet (Senna-S) PO BID PRN constipation #60 tabs Allergies Allergy/AdvReac Type Severity Reaction Status Date / Time lisinopril AdvReac Mild Cough Verified 08/21/24 11:29 losartan AdvReac Mild Cough Verified 08/21/24 11:29 Exam Narrative: Exam Narrative: Examine him in his hospital room. Appears comfortable and in no acute distress. Sitting in recliner chair at bedside. Alert and oriented x4. Vision and hearing are adequate. Cranial nerves 3-12 are grossly normal. Conjugate gaze. Eating and drinking without difficulties. Neck is supple. No head neck lymphadenopathy. No JVD or hepatojugular reflux. No carotid bruits. Lungs are clear to auscultation without wheezing, rhonchi, or rales. Chest wall excursions are full. Chest wall excursions are full. No CVA tenderness to thumping. Heart tones with regular rhythm, normal S1-S2. No obvious murmur, gallop, or rub. PMI is not laterally displaced. Abdomen with active bowel sounds, soft, nontender. Obese abdomen. Extremities without edema. Const: Vital Signs, click to edit/add: Vital Signs - 24 hr 08/24/24 06:57 08/24/24 07:32 08/24/24 10:12 Temperature 97.6 F 98 F Pulse Rate 79 75 73 Respiratory Rate 16 16 12 Blood Pressure 148/73 H 153/91 H 86/45 L Pulse Oximetry 94 96 91 Oxygen Delivery Me thod Room Air Nasal Cannula OxyMask Oxygen Flow Rate 2 10 08/24/24 10:15 08/24/24 10:20 08/24/24 10:25 Temperature 98 F 98 F 98 F Pulse Rate 59 L 64 64 Respiratory Rate 16 17 16 Blood Pressure 97/67 102/49 L 97/61 Pulse Oximetry 99 97 97 Oxygen Delivery Me thod OxyMask OxyMask OxyMask Oxygen Flow Rate 10 10 10 08/24/24 10:30 08/24/24 10:35 08/24/24 10:40 Temperature 98 F 98 F 97 F L Pulse Rate 63 61 58 L Respiratory Rate 16 15 12 Blood Pressure 101/74 96/59 L 106/67 Pulse Oximetry 97 98 92 Oxygen Delivery Me thod OxyMask Room Air Room Air Oxygen Flow Rate 10 08/24/24 10:48 08/24/24 11:00 08/24/24 11:15 Temperature 97.6 F Pulse Rate 53 L 56 L 54 L Respiratory Rate 16 16 16 Blood Pressure 117/74 121/83 108/59 L Pulse Oximetry 92 94 96 Oxygen Delivery Me thod Room Air Room Air Room Air Oxygen Flow Rate 08/24/24 11:30 08/24/24 11:45 08/24/24 11:48 Temperature 97.8 F Pulse Rate 56 L 61 Respiratory Rate 16 16 Blood Pressure 130/89 130/77 Pulse Oximetry 95 95 92 Oxygen Delivery De thod Room Air Room Air Oxygen Flow Rate 08/24/24 11:48 08/24/24 12:00 08/24/24 12:15 Temperature Pulse Rate 65 63 Respiratory Rate 16 16 18 Blood Pressure 133/73 129/75 Pulse Oximetry 92 96 95 Oxygen Delivery De thod Room Air Room Air Room Air Oxygen Flow Rate 08/24/24 12:30 08/24/24 13:00 08/24/24 13:30 Temperature 98.0 F Pulse Rate 62 68 72 Respiratory Rate 16 16 18 Blood Pressure 122/70 124/87 146/91 H Pulse Oximetry 94 95 96 Oxygen Delivery [facility] Room Air Room Air Room Air Oxygen Flow Rate 08/24/24 14:00 Temperature Pulse Rate 73 Respiratory Rate 18 Blood Pressure 142/95 H Pulse Oximetry 95 Oxygen Delivery De thod Room Air Oxygen Flow Rate Assessment and Plan Assessment and plan (1) Osteoarthritis of left knee: Problem comment: moderate-severe Status: Chronic (2) Status post left knee replacement: Problem comment: - 08/24/2024, Dr. Connell, [facility], [place], [place], without complications Status: Acute (3) Hypertension: Problem comment: - continue with current antihypertensive regimen Status: Acute (4) Controlled type 2 diabetes mellitus: Problem comment: - her continue with metformin - sliding scale insulin while in hospital Status: Acute (5) Sleep apnea with use of continuous positive airway pressure (CPAP): Problem comment: - continue with CPAP therapy while in hospital Status: Acute (6) Subclinical hypothyroidism: Status: Acute (7) Cerebrovascular accident (CVA): Problem comment: - 2011, left-sided - has been on aspirin 3 and 25 mg once daily for number of years. Based on current guidelines recommend decreasing dose of aspirin to 162 mg daily hereafter for secondary prevention Status: Acute (8) Abnormal electrocardiography: Status: Acute (9) Hyperlipidemia: Problem comment: - continue with statin therapy Status: Acute (10) Central spinal stenosis: Problem comment: Mild-moderate central stenosis at L4-5 with advanced facet arthropathy and mild to moderate neural foramina narrowing proximally. Status: Chronic Plan 1. Reviewed impression, plans, recommendations with patient 2. Answered patient's questions to satisfaction 3. Patient agreeable with above stated plans and recommendations 4. Will need follow up with primary post acute care nurse practitioner in 2-4 weeks to review various medications 5. Completed hospitalists portion of discharge orders for this patient Total Time Spent Total Time Spent: 50 minutes
[2024-08-24] MEDS: CYCLOBENZAPRINE HCL 10 MG TABLET PO ×2 (17:34→23:53)
[2024-08-24] MEDS: OXYCODONE 5 MG TABLET PO ×2 (18:37→21:08)
[2024-08-24] MEDS: INSULIN ASPART 100 UNIT/ML SUBCUT ×2 (18:38→20:55)
[2024-08-24] MEDS: SENNOSIDES 1 TAB TABLET 2 TAB PO (20:55)
[2024-08-24] MEDS: ASPIRIN 81 MG TABLET EC PO (20:55)
[2024-08-24] MEDS: ATORVASTATIN CALCIUM 10 MG TABLET 20 MG PO (20:55)
--- NOTE | 2024-08-24 23:43 | PC.NURSE ---
Shift note: VS WNL and LS COA. Afebrile. Surgical dressing C,D,&I with active ice in place. Pain is well controlled and he is up with assist x1 with walker and GB. Plans to discharge home with his tomorrow.
[2024-08-25] MEDS: ACETAMINOPHEN 500 MG TABLET 1000 MG PO ×2 (01:32→08:07)
[2024-08-25 03:00] VITALS: BP 141/92; PULSE 86; RESP 16; TEMP 36.4; O2SAT 95
[2024-08-25 05:49] LABS: Basophils Percent Auto 0.2 % (0.0-3.0); Eosinophils Percent Auto 0.2 % (0.0-7.0); Hematocrit 39.7 % (37.0-53.0); Hemoglobin* 12.7 gm/dL (13.5-17.5); Immature Granulocytes Pct Auto 0.4 %; Lymphocytes Percent Auto 12.1 % (20-44); Mean Corpuscular HGB Conc 32 gm/dL (32-36); Mean Corpuscular Hemoglobin 29 pg (26-34); Mean Corpuscular Volume 91 fL (80-100); Monocytes Percent Auto 12.3 % (0.0-11.0); Neutrophils Percent Auto 74.8 % (42.0-72.0); Platelet Count* 247 K/uL (140-440); RDW Coefficient of Variation % 13.6 % (11.5-15.5); Red Blood Count 4.35 m/uL (4.30-5.90); White Blood Count* 12.35 K/uL (4.50-11.00)
[2024-08-25 05:54] LABS: Slide Review Reflex No
[2024-08-25 06:01] LABS: Potassium* 3.9 mmol/L (3.6-5.1); Sodium* 139 mmol/L (135-149)
[2024-08-25 06:04] LABS: Blood Urea Nitrogen* 13 mg/dL (7-30); Creatinine* 0.8 mg/dL (0.5-1.5); Est. Creatinine Clearance* 61.51; Estimated Glomerular Filt Rate 93 ml/min
[2024-08-25] MEDS: CEFAZOLIN 2 GM in 0.9 % SODIUM CHLORIDE Mini-bag 100 ML IVPB (06:51)
[2024-08-25 07:00] VITALS: BP 127/75; PULSE 82; RESP 16; TEMP 36.6; O2SAT 93
--- NOTE | 2024-08-25 07:46 | PC.NURSE ---
Pt alert, oriented and vitally stable. Dressing C/D/I. Pain rated minimal throughout shift, tolerated with scheduled Tylenol. CARLOS, used home CPAP throughout shift. SBA. Pt in bed, appears to be resting call light within reach.? ? ?
[2024-08-25] MEDS: OXYCODONE 5 MG TABLET PO (08:07)
[2024-08-25] MEDS: AMLODIPINE 5 MG TABLET 7.5 MG PO (08:33)
[2024-08-25] MEDS: POTASSIUM CHLORIDE 10 MEQ CAPSULE ER 20 MEQ PO (08:33)
[2024-08-25] MEDS: ASPIRIN 81 MG TABLET EC PO (08:34)
[2024-08-25] MEDS: TRIAMTERENE-HCTZ 37.5-25 MG TB 2 TAB PO (08:34)
[2024-08-25] MEDS: SENNOSIDES 1 TAB TABLET 2 TAB PO (08:34)
[2024-08-25] MEDS: METFORMIN ER 500 MG PO (08:36)
--- NOTE | 2024-08-25 08:45 | P.ORPN_ITS ---
Subjective Subjective Date Seen: 08/25/24 Principal diagnosis: Status postop day 1 Left total knee arthroplasty Interval history: Patient reports doing well. No acute events over night. Complains of tight left hamstring with occasional cramping even at rest. Pain managed with scheduled and PRN medications, ice. DVT prophylaxis: 81 mg aspirin by mouth twice daily, SCDs, walking. Denies fevers, chills, aches, N/V, CP, SOB/DEAN, or lightheadedness. Ortho Exam Narrative Exam Narrative: -Patient appears comfortable; no apparent acute distress -Alert and oriented times 3 -Operative knee mildly swollen; soft tissues supple; no ecchymosis; no erythematous streaking Warmth appropriate -Surgical dressing clean, dry, intact; no drainage -Bilateral calfs soft; no significant swelling, edema, tenderness, erythema, discoloration, warmth, or palpable cords -2+ DP/PT pulses, intact dermatomes and myotomes distally (5/5 strength) Const Vital Signs, click to edit/add: Vital Signs - 24 hr 08/24/24 10:12 08/24/24 10:15 08/24/24 10:20 Temperature 98 F 98 F 98 F Pulse Rate 73 59 L 64 Pulse Rate [Pulse Oximeter] Respiratory Rate 12 16 17 Blood Pressure 86/45 L 97/67 102/49 L Blood Pressure [Right Arm] Pulse Oximetry 91 99 97 Oxygen Delivery Method OxyMask OxyMask OxyMask Oxygen Flow Rate 10 10 10 08/24/24 10:25 08/24/24 10:30 08/24/24 10:35 Temperature 98 F 98 F 98 F Pulse Rate 64 63 61 Pulse Rate [Pulse Oximeter] Respiratory Rate 16 16 15 Blood Pressure 97/61 101/74 96/59 L Blood Pressure [Right Arm] Pulse Oximetry 97 97 98 Oxygen Delivery Method OxyMask OxyMask Room Air Oxygen Flow Rate 10 10 08/24/24 10:40 08/24/24 10:48 08/24/24 11:00 Temperature 97 F L 97.6 F Pulse Rate 58 L 53 L 56 L Pulse Rate [Pulse Oximeter] Respiratory Rate 12 16 16 Blood Pressure 106/67 117/74 121/83 Blood Pressure [Right Arm] Pulse Oximetry 92 92 94 Oxygen Delivery Method Room Air Room Air Room Air Oxygen Flow Rate 08/24/24 11:15 08/24/24 11:30 08/24/24 11:45 Temperature 97.8 F Pulse Rate 54 L 56 L 61 Pulse Rate [Pulse Oximeter] Respiratory Rate 16 16 16 Blood Pressure 108/59 L 130/89 130/77 Blood Pressure [Right Arm] Pulse Oximetry 96 95 95 Oxygen Delivery Method Room Air Room Air Room Air Oxygen Flow Rate 08/24/24 11:48 08/24/24 11:48 08/24/24 12:00 Temperature Pulse Rate 65 Pulse Rate [Pulse Oximeter] Respiratory Rate 16 16 Blood Pressure 133/73 Blood Pressure [Right Arm] Pulse Oximetry 92 92 96 Oxygen Delivery Method Room Air Room Air Oxygen Flow Rate 08/24/24 12:15 08/24/24 12:30 08/24/24 13:00 Temperature 98.0 F Pulse Rate 63 62 68 Pulse Rate [Pulse Oximeter] Respiratory Rate 18 16 16 Blood Pressure 129/75 122/70 124/87 Blood Pressure [Right Arm] Pulse Oximetry 95 94 95 Oxygen Delivery Method Room Air Room Air Room Air Oxygen Flow Rate 08/24/24 13:30 08/24/24 14:00 08/24/24 15:00 Temperature Pulse Rate 72 73 Pulse Rate [Pulse Oximeter] Respiratory Rate 18 18 Blood Pressure 146/91 H 142/95 H Blood Pressure [Right Arm] Pulse Oximetry 96 95 92 Oxygen Delivery Method Room Air Room Air Oxygen Flow Rate 08/24/24 15:00 08/24/24 15:00 08/24/24 15:00 Temperature Pulse Rate 78 Pulse Rate [Pulse Oximeter] 78 Respiratory Rate 18 18 Blood Pressure 133/73 Blood Pressure [Right Arm] Pulse Oximetry 92 95 Oxygen Delivery Method Room Air Room Air Oxygen Flow Rate 08/24/24 16:00 08/24/24 17:00 08/24/24 19:00 Temperature 97.9 F Pulse Rate 88 94 Pulse Rate [Pulse Oximeter] 90 Respiratory Rate 18 18 18 Blood Pressure 126/72 132/71 Blood Pressure [Right Arm] 143/70 H Pulse Oximetry 95 95 95 Oxygen Delivery Method Room Air Room Air Room Air Oxygen Flow Rate 08/24/24 23:00 08/24/24 23:00 08/24/24 23:00 Temperature 98.2 F Pulse Rate Pulse Rate [Pulse Oximeter] 79 Respiratory Rate 18 18 Blood Pressure Blood Pressure [Right Arm] 128/69 Pulse Oximetry 91 91 91 Oxygen Delivery Method Room Air Room Air Oxygen Flow Rate 10 08/24/24 23:00 08/25/24 03:00 08/25/24 07:00 Temperature 97.6 F Pulse Rate Pulse Rate [Pulse Oximeter] 79 86 Respiratory Rate 18 16 Blood Pressure Blood Pressure [Right Arm] 141/92 H Pulse Oximetry 95 93 Oxygen Delivery Method CPAP Oxygen Flow Rate 08/25/24 07:00 08/25/24 07:00 08/25/24 07:00 Temperature 97.8 F Pulse Rate Pulse Rate [Pulse Oximeter] 82 82 Respiratory Rate 16 16 16 Blood Pressure Blood Pressure [Right Arm] 127/75 Pulse Oximetry 93 93 Oxygen Delivery Method Room Air Room Air Oxygen Flow Rate 10 Assessment and Plan Assessment and plan (1) Osteoarthritis of left knee: Problem details: moderate-severe Status: Chronic (2) Status post left knee replacement: Problem details: - 08/24/2024, Dr. Connell, [facility], [place], [place], without complications Status: Acute (3) Hypertension: Problem details: - continue with current antihypertensive regimen Status: Acute (4) Controlled type 2 diabetes mellitus: Problem details: - her continue with metformin - sliding scale insulin while in hospital Status: Acute (5) Sleep apnea with use of continuous positive airway pressure (CPAP): Problem details: - continue with CPAP therapy while in hospital Status: Acute (6) Subclinical hypothyroidism: Status: Acute (7) Cerebrovascular accident (CVA): Problem details: - 2011, left-sided - has been on aspirin 3 and 25 mg once daily for number of years. Based on current guidelines recommend decreasing dose of aspirin to 162 mg daily hereafter for secondary prevention Status: Acute (8) Abnormal electrocardiography: Status: Acute (9) Hyperlipidemia: Problem details: - continue with statin therapy Status: Acute (10) Central spinal stenosis: Problem details: Mild-moderate central stenosis at L4-5 with advanced facet arthropathy and mild to moderate neural foramina narrowing proximally. Status: Chronic Plan - Complete 23 hour perioperative antibiotics. - PT/OT consult for education and assistance. - Social work consult for discharge planning - Prescribed analgesics as needed - DVT prophylaxis: 81 mg aspirin by mouth twice daily, walking, and SCDs (previously on 325mg aspirin once daily; per guidelines, he has been now switched to 162 mg once daily) - Anticipation is for discharge to home with family/friends today 08/25/24 if the patient remains medically stable, pain is controlled, and they are safe with mobilization.
--- NOTE | 2024-08-25 10:37 | PC.NURSE ---
Discharge: Patient discharged to home at 1030 accompanied by spouse. VSRA Regina. tolerating a reg. diet. Patient pre-medicated prior to therapies. Denies N/V/SOB or pain. Patient using active ice to op site. dressing is c/D/I. IV removed tip intact. Discharge instructions given and signed. patient verbalized understanding of instructions and did not have any further questions. Belongings sheet signed and belongings sent with patient and family.
--- NOTE | 2024-08-25 15:07 | PC.SOCIAL ---
Discharge planning: Pt will discharge home with his . Pt also has a very supportive daughter. No social work needs were identified. Social work to follow-up as needed.
== END 2024-08-25 10:30 | disposition home or self-care (01) ==
LOC: OR 06:05 → MEDSURG 06:05
PROVIDERS: PCP Family Medicine; Visit Provider Orthopaedic Surgery Sports Medicine
PROC: (CPT 27447; principal; 2024-08-24 07:15)
DX: M17.12 Unilateral primary osteoarthritis, left knee (principal); G89.18 Other acute postprocedural pain; G47.33 Obstructive sleep apnea (adult) (pediatric); I10 Essential (primary) hypertension; E11.9 Type 2 diabetes mellitus without complications; Z79.84 Long term (current) use of oral hypoglycemic drugs; Z79.82 Long term (current) use of aspirin; Z86.73 Personal history of transient ischemic attack (TIA), and cerebral infarction without residual deficits; M48.061 Spinal stenosis, lumbar region without neurogenic claudication; E78.5 Hyperlipidemia, unspecified; E03.8 Other specified hypothyroidism; R94.31 Abnormal electrocardiogram [ECG] [EKG]
CPT/HCPCS: 27447; 01402; 36415; 64447; 64454; 73560; 76942; 82565; 82962; 84132; 84295; 84520; 85025; 97110; 97116; 97161; 97165; 97530; 97535; 99100; A9270; C1776; J0665; J0690; J1100; J2250; J2371; J2405; J2704; J3010; J7120

== ENCOUNTER 2024-09-10 09:24 | Outpatient (CLI) | payer MEDICARE, SELFPAY | END 2024-09-10 09:25 | disposition home or self-care (01) | PROVIDERS: PCP Family Medicine; Visit Provider Family Medicine | DX: D64.9 Anemia, unspecified (principal); N39.0 Urinary tract infection, site not specified; R31.9 Hematuria, unspecified; B96.20 Unspecified Escherichia coli [E. coli] as the cause of diseases classified elsewhere; R97.20 Elevated prostate specific antigen [PSA]; Z79.899 Other long term (current) drug therapy; Z12.5 Encounter for screening for malignant neoplasm of prostate | CPT/HCPCS: 82607; 82728; 83540; 84153; 84154; 87086 ==

== ENCOUNTER 2024-09-22 11:19 | Outpatient (CLI) | payer MEDICARE, SELFPAY ==
--- NOTE | 2024-09-22 11:30 | CRLHL7_ITS ---
For Patients: As a result of the Cures Act, medical imaging exams and procedure reports are released immediately into your electronic medical record. You may view this report before your referring provider. If you have questions, please contact your health care provider. Examination: US abdominal aorta Indication: Abdominal aortic aneurysm screening. Technique: Joshua scale and color Doppler images of the aorta and common iliac arteries are obtained. Comparison: None Findings: Proximal aorta: 2.4 x 2.9 cm Mid aorta: 1.7 x 2.1 cm Distal aorta: 1.5 x 1.9 cm Right common iliac artery: 1.2 x 1.3 cm Left common iliac artery: 1.3 x 1.4 cm Impression: No abdominal aortic aneurysm. Dictated by Charles Earl MD @ 09/23/2024 6:25:02 AM (Electronically Signed)
== END 2024-09-22 11:20 | disposition home or self-care (01) ==
LOC: US 11:20
PROVIDERS: PCP Family Medicine; Visit Provider Family Medicine
DX: Z13.6 Encounter for screening for cardiovascular disorders (principal)
CPT/HCPCS: 76775

== ENCOUNTER 2024-10-01 12:09 | Outpatient (CLI) | payer MEDICARE, SELFPAY | END 2024-10-01 12:10 | disposition home or self-care (01) | LOC: NFLDREF 10-06 16:05 | PROVIDERS: PCP Family Medicine; Referring Provider Family Medicine | DX: N39.0 Urinary tract infection, site not specified (principal); R31.9 Hematuria, unspecified; B96.20 Unspecified Escherichia coli [E. coli] as the cause of diseases classified elsewhere | CPT/HCPCS: 87086 ==

== ENCOUNTER 2024-10-08 10:35 | Outpatient (CLI) | payer MEDICARE, SELFPAY | END 2024-10-08 10:36 | disposition home or self-care (01) | LOC: NFLDREF 10-12 15:09 | PROVIDERS: PCP Family Medicine; Referring Provider Family Medicine; Visit Provider Family Medicine | DX: N39.0 Urinary tract infection, site not specified (principal); B96.29 Other Escherichia coli [E. coli] as the cause of diseases classified elsewhere; Z16.12 Extended spectrum beta lactamase (ESBL) resistance | CPT/HCPCS: 87086 ==

== ENCOUNTER 2024-10-26 11:40 | Outpatient (CLI) | payer MEDICARE, SELFPAY ==
--- NOTE | 2024-10-26 13:03 | P.ANES_ITS ---
Anesthesia Charges Start Date/Time Anesthesia Start Date: 10/26/24 Anesthesia Start Time: 12:31 Stop Date/Time Anesthesia Stop Date: 10/26/24 Anesthesia Stop Time: 12:58 Summary Extremes of Age - Over 70 or under 1: MATRIX DRIER TENDER Coding CPT Codes CPT Codes: ANES LWR INTST NDSC NOS - 75465 ([id number]) P3 - PATIENT W/SEVERE SYS DISEASE, QK - SALESPERSON HOUSEHOLD APPLIANCES 2-4 CNCRNT ANES PROC, QX - MATRIX DRIER TENDER SVC W/ MD MED DIRECTION Additional Codes: Summary - Extremes of Age - Over 70 or under 1: MATRIX DRIER TENDER ([id number])
--- NOTE | 2024-10-26 13:03 | W.ANESCHARGE ---
Anesthesia Charges Start Date/Time Anesthesia Start Date: 10/26/24 Anesthesia Start Time: 12:31 Stop Date/Time Anesthesia Stop Date: 10/26/24 Anesthesia Stop Time: 12:58 Summary Extremes of Age - Over 70 or under 1: PERFORMING [address] MANAGER Coding CPT Codes CPT Codes: ANES LWR INTST NDSC NOS - 49520 ([id number]) P3 - PATIENT W/SEVERE SYS DISEASE, QK - FITNESS STUDIES TEACHER 2-4 CNCRNT ANES PROC, QX - PERFORMING [employer] RO[address] MANAGER SVC W/ MD MED DIRECTION Additional Codes: Summary - Extremes of Age - Over 70 or under 1: PERFORMING [address] MANAGER ([id number])
--- NOTE | 2024-10-26 13:10 | W.ANESCHARGE ---
Anesthesia Charges Start Date/Time Anesthesia Start Date: 10/26/24 Anesthesia Start Time: 12:31 Stop Date/Time Anesthesia Stop Date: 10/26/24 Anesthesia Stop Time: 12:58 Summary Extremes of Age - Over 70 or under 1: MDA Coding CPT Codes CPT Codes: ANES LWR INTST NDSC NOS - [id number] ([id number]) QK - DIRECTOR SAFETY COUNCIL 2-4 CNCRNT ANES PROC, QX - LONG CHAIN DYEING MACHINE OPERATOR SVC W/ MD MED DIRECTION, P3 - PATIENT W/SEVERE SYS DISEASE Additional Codes: Summary - Extremes of Age - Over 70 or under 1: MDA ([id number])
== END 2024-10-26 11:41 | disposition home or self-care (01) ==
LOC: OP CLINIC 11:41
PROVIDERS: PCP Family Medicine; Visit Provider Surgery
DX: Z12.11 Encounter for screening for malignant neoplasm of colon (principal); Z86.0100 Personal history of colon polyps, unspecified; D12.4 Benign neoplasm of descending colon; Z98.0 Intestinal bypass and anastomosis status; K57.30 Diverticulosis of large intestine without perforation or abscess without bleeding
CPT/HCPCS: 00811; 45385; 88305; 99100; J2704

== ENCOUNTER 2024-11-12 08:45 | Outpatient (RCR) | payer MEDICARE, SELFPAY ==
--- NOTE | 2024-08-26 15:04 | PT.OPE ---
PT [place] [facility] PT [facility] Out[facility] Eval Start: 08/26/24 11:29 Freq: Status: Active Protocol: Document 08/26/24 15:00 CJT (Rec: 08/26/24 15:04 CJT [id number]) E-signed By Carmelo Mullen PT Physical Therapy Outpatient Evaluation Insurance Information Recert Due Date 11/24/24 Insurance Name Medicare B Medical Diagnosis Z96.652 - L knee replacement Treating Diagnosis Z96.652 - L knee replacement Referring Juve Shaw MD Subjective Preferred Name Raul Subjective Pt presents 2 days post-op L TKA. Pain has been fairly managed. most pain is noted with standing from sitting. Taking oxy every 4-6 hours as directed. Slept in recliner last night and notes this went okay. Reporting 08/22 this PM. Ambulating with 4WW. Reports he feels everything has been going well but would like to ice his knee while he is here. Pain Comments 08/22 Date of Surgery (If applicable) 08/24/24 Current Work Status Retired Precautions Weight Bearing Status Weight Bear as Tolerated Therapy Limitations/Systems Review Not Limited Objective Other/Pertinent Objective Quad set: good L Knee AROM: 0-6-80 Skin Inspection: Ecchymosis is present. Moderate edema. Dressing covers the wound. No visible drainage. Gait: Pt ambulates with 4WW. Step-thru gait with reduced stride length on surgical LE. Assessment Assessment/Impression Raul is a very pleasant 73 year old male who presents to our clinic for evaluation and treatment following L TKA on . Pt is doing quite well 2 days post-op with L knee AROM of 0-6-80 this date. Discussed importance of consistency with walking hourly and HEP performance 3x/ day and he gives verbal understanding. I have no concerns for Raul at this time . Discussed signs of infection and pt understands he should call Dr. Muniz's office or visit ED if he notices signs of infection. The nature of the pts condition was explained and all questions were answered to the pts satisfaction. Skilled PT services are medically necessary to address deficits and return patient to highest level of function. Recommend physical therapy sessions 2 reducing to 1/week for 6-12 weeks. Pt agrees with this plan. Printout of HEP was given for I completion and pt gives verbal understanding of each exercise. Primary Functional Limitations Transfers, walking Plan of Care Rehabilitation Potential Excellent Physical Therapy Goals STG - To be completed in 2-3 weeks: 1. Pt will report consistent use of ice as well as elevation of surgical limb while resting to reduce inflammation and swelling. 2. Pt will demonstrate 90 degrees of knee flexion on surgical limb to reduce risk of contracture development and progress through rehabilitation as expected. 3. Pt to show appropriate use of all AD's with minimal gait deviations and no LOB with all ambulation to reduce risk of falls and restore normal gait mechanics. 4. Pt will demo full knee extension to reduce risk of contracture in posterior knee and allow for ease of ambulation. LTG - To be completed in 8-12 weeks: 1. Pt to be I with HEP so that they may I manage progression of symptoms. 2. Pt will demonstrate 120 degrees knee flexion on surgical limb so that they may descend steps without restrictions in ROM. 3. Pt will perform 10+ squats of full depth with good control over medial/lateral deviation of knees to show improved functional strength to assist with transfers. 4. Pt will demonstrate 5/5 MMT knee flexion/extension of surgical limb to provide greater support to knee joint and allow for ease of ambulation. 5. Pt will ambulate with no AD and minimal gait deviations so that they may return to walking safely and comfortably for exercise and pleasure. Treatment Plan/Direct Interventions Electrical Stimulation,Gait Training,Heat,Ice/Cold/ Vasopneumatic,Joint Mobilization,Manual Therapy, Neuromuscular Re-ed,Self-Care/ Home Management,Therapeutic Activities,Therapeutic Exercises Frequency/Duration 2 reducing to 1/week for 6-12 weeks Patient Will Be Discharged From Therapy Completion of LTG(s),Skills Plateau,Independent w/HEP, Independently Progressing Evaluation Billing Untimed Code Treatment Minutes 30 PT Eval No Charge No Complexity Low Certification Information Initial Certification Date 08/26/24 Ending Certification Date 11/24/24 Provider Signature Required Yes Provider Signature Shows Agreement With POC & Medical Necessity Physician NPI Number Write NPI# Here Physician Comment/Change : Physician Signature & Date Requested Please Sign/Date Here
--- NOTE | 2024-08-31 13:38 | PT.OPDN ---
PT [facility] Daily Note PT [facility] Outpatient Daily Note Start: 08/26/24 11:29 Freq: Status: Active Protocol: Document 08/31/24 10:48 (Rec: 08/31/24 13:38 [email or web address]) E-signed By Jackie Amador DPT PT OP Daily Progress Note Visit Information Note Type Daily Note Visit Number 3 Physician Authorized Visits [employer] Insurance Information Recert Due Date 11/24/24 Insurance Name Medicare B Medical Diagnosis Z96.652 - L knee replacement Treating Diagnosis Z96.652 - L knee replacement Referring Juve Shaw MD Subjective Preferred Name Raul Subjective Raul still has difficulty getting up from chairs and is not sleeping well due to being a side sleep. He was able to walk around office without his walker this morning and felt stable. Raul is seeing ZINA Contreras tomorrow for follow-up. Pain Comments 07/23 Date of Surgery (If applicable) 08/24/24 Precautions Weight Bearing Status Weight Bear as Tolerated Home Exercise Home Exercise Comments Access Code: [email or web address] URL: [email or web address] Date: 08/26/2024 Prepared by: Carmelo Mullen Exercises - Supine Ankle Pumps - 3 x daily - 7 x weekly - 1 sets - 10 reps - Supine Quad Set - 3 x daily - 7 x weekly - 1 sets - 10 reps - 5 seconds hold - Supine Isometric Hamstring Set - 3 x daily - 7 x weekly - 1 sets - 10 reps - 5 seconds hold - Supine Heel Slide - 3 x daily - 7 x weekly - 1 sets - 10 reps - Supine Heel Slide with Strap - 3 x daily - 7 x weekly - 1 sets - 10 reps - Supine Knee Extension Strengthening - 3 x daily - 7 x weekly - 1 sets - 10 reps - Active Straight Leg Raise with Quad Set - 3 x daily - 7 x weekly - 1 sets - 10 reps - Seated Long Arc Quad - 3 x daily - 7 x weekly - 1 sets - 10 reps - Supine Knee Extension Stretch on Towel Roll - 3 x daily - 7 x weekly - 1 sets - 1-2 minutes hold - Seated Passive Knee Extension - 3 x daily - 7 x weekly - 1 sets - 1-2 minutes hold Objective Other/Pertinent Objective Quad set: good L Knee AROM: 0-6-80 Skin Inspection: Ecchymosis is present. Moderate edema. Dressing covers the wound. No visible drainage. Gait: Pt ambulates with 4WW. Step-thru gait with reduced stride length on surgical LE. Patient Instructed in Risks/Benefits Yes Therapeutic Exercise Therapeutic Exercise Minutes (minutes) 30 Therapeutic Exercise: To Restore NuStep - 5 minutes, level 3, Functional Status seat 11 Ankle pumps 2 x 10 Quad set 2 x 10, 5 hold Heel slides 2 x 10 Hamstring sets 2 x 10, 5 hold SAQ 2 x 10 SLR w/ quad set 2 x 10 LAQ's 2 x 10 Manual Therapy Techniques Manual Therapy Minutes (minutes) 20 Manual Therapy Techniques Gentle STM to left knee for decongestion/to reduce swelling Grade I mobilizations to L knee to reduce pain. PROM into flexion with heel slide and STM to right quad for pain relief and tissue extensibility. Other Interventions Provided Other Interventions Provided Vasopneumatic: GameReady - 12 minutes, L knee, light pressure, pt in supine with legs elevated - Raul reported some discomfort in right hamstring towards end of treatment, disconitnued GameReady at 12 minutes Other Interventions Untimed Minutes 12 Treatment Minutes Untimed Code Treatment Minutes 12 Timed Code Treatment Minutes 50 Total Treatment Time 62 Billing Units Manual Therapy Units 1 Therapeutic Exercise Units 2 Vasopneumatic Device Units 1 Assessment/Impression Assessment/Impression Pt tolerates treatment well. Exercises performed as listed above. Needed reminders to breathe during exercises. L knee AROM measures 0-3-90 degrees today after exercises, PROM, and STM to knee. Pt tolerates NuStep quite well. Spoke with pt regarding quad strengthening and knee ext lag with SLR. Pt responded well to treatment. Continue with PT POC. Primary Functional Limitations Transfers, walking Plan of Care Physical Therapy Goals STG - To be completed in 2-3 weeks: 1. Pt will report consistent use of ice as well as elevation of surgical limb while resting to reduce inflammation and swelling. 2. Pt will demonstrate 90 degrees of knee flexion on surgical limb to reduce risk of contracture development and progress through rehabilitation as expected. 3. Pt to show appropriate use of all AD's with minimal gait deviations and no LOB with all ambulation to reduce risk of falls and restore normal gait mechanics. 4. Pt will demo full knee extension to reduce risk of contracture in posterior knee and allow for ease of ambulation. LTG - To be completed in 8-12 weeks: 1. Pt to be I with HEP so that they may I manage progression of symptoms. 2. Pt will demonstrate 120 degrees knee flexion on surgical limb so that they may descend steps without restrictions in ROM. 3. Pt will perform 10+ squats of full depth with good control over medial/lateral deviation of knees to show improved functional strength to assist with transfers. 4. Pt will demonstrate 5/5 MMT knee flexion/extension of surgical limb to provide greater support to knee joint and allow for ease of ambulation. 5. Pt will ambulate with no AD and minimal gait deviations so that they may return to walking safely and comfortably for exercise and pleasure. Daily Plan of Care Continue per POC
== END 2024-11-12 10:14 | disposition home or self-care (01) ==
PROVIDERS: PCP Family Medicine; Visit Provider Orthopaedic Surgery Sports Medicine
DX: Z47.1 Aftercare following joint replacement surgery (principal); Z96.642 Presence of left artificial hip joint; Z51.89 Encounter for other specified aftercare
CPT/HCPCS: 97016; 97110; 97112; 97140; 97161

== ENCOUNTER 2025-01-07 10:37 | Outpatient (CLI) | payer MEDICARE, SELFPAY | END 2025-01-07 10:38 | disposition home or self-care (01) | LOC: LKVREF 10:38 | PROVIDERS: PCP Family Medicine; Visit Provider Family Medicine | DX: R97.20 Elevated prostate specific antigen [PSA] (principal); Z12.5 Encounter for screening for malignant neoplasm of prostate | CPT/HCPCS: G0103 ==